=== PATIENT | female | born 1945 | race Caucasian/White ===

== ENCOUNTER → 2016-10-29 | Outpatient (CLI) | payer MEDICARE, BC ==
--- NOTE | 2016-10-29 14:52 | CT ---
EXAMINATION TYPE: CT lumbar spine wo con DATE OF EXAM: 10/29/2016 1:46 PM COMPARISON: CT lumbar spine November 24, 2015 HISTORY: Post back surgery pain CT DLP: 471.3 mGycm Automated exposure control for dose reduction was used. FINDINGS: There is redemonstration of 5 lumbar type vertebra. Lumbar spine demonstrates satisfactory alignment without evidence of acute fracture or dislocation. Posterior fusion hardware is redemonstrated bilate rally at L3-S1 levels. There is interval multilevel discectomy with placement of artificial disks at L3-L4, L4-L5, and L5-S1 levels. Alignment is satisfactory and maintained. Vertebral body heights and disc space heights above L3 level remain within normal limits. Streak artifact from surgical hardware seen but spinal canal is felt fairly well-maintained. Review of the axial images shows the T12-L1 and L1-L2 levels both to remain within normal limits. Axial images at L2-L3 level redemonstrate mild facet degenerative changes bilaterally with ligamentum flavum hypertrophy effacing posterior lateral thecal sac, right greater than left on axial image 30 unchanged from prior study. Bilateral neural foramina remain patent. Axial images at L3-L4 level show new left-sided laminectomy defect. Artifact from surgical changes re demonstrated. Facet arthropathy is redemonstrated there is ill-defined fluid at level of laminectomy nonspecific near axial image 42. Axial images at the L4-L5 level show left-sided laminectomy defect with ill-defined fluid at this lev el. Artifact from surgical change is identified. Axial images at the L5-S1 level show left-sided laminectomy defect with ill-defined fluid. There is i ndistinct fat plane from spinal canal at this level near axial image 60. There is right-sided facet a rthropathy. Review of surgical hardware shows fixating screws and different location with more anterior penetrati on identified on current exam, for reference right L5 screw impresses along posterior margin of IVC. Several of the screws penetrate through anterior margin of vertebra. New screws are suspected. IMPRESSION: Interval multilevel disc surgery and suspected replacement of posterior fusion hardware. Nonspecific ill-defined fluid at site of multilevel left-sided laminectomies is noted. Alignment is m aintained.
== END | disposition home or self-care (01) ==
LOC: RADCTMAIN 13:21
PROVIDERS: ATTEND Neurological Surgery
DX: M51.36 Other intervertebral disc degeneration, lumbar region (principal); Z98.890 Other specified postprocedural states
CPT/HCPCS: 72131

== ENCOUNTER → 2016-12-28 | Outpatient (CLI) | payer MEDICARE, BC ==
--- NOTE | 2016-12-28 14:17 | BD ---
EXAMINATION TYPE: MG DEXA axial skeleton. DATE OF EXAM: 12/28/2016 1:34 PM COMPARISON: 11.01.2013 DEXA bone scan CLINICAL HISTORY: Z78.0 ASYMPTOMATIC STATE Height: 64.5 Weight: 155 FRAX RISK QUESTIONS: Alcohol (3 or more units per day): NO Family History (Parent hip fracture): NO Glucocorticoids (More than 3mos): YES (Ex: prednisone, prednisolone, methylprednisolone, dexamethasone, and hydrocortisone). History of Fracture in Adulthood: YES Secondary Osteoporosis: NO 1. Type 1 Diabetes: NO 2. Hyperthyroidism: NO 3. Menopause before 45: YES 4. Malnutrition: NO 5. Chronic liver disease: NO Rheumatoid Arthritis: YES Current Tobacco Use: NO RISK FACTORS HISTORY OF: Hip Fracture RT HIP FX WITH THR When: AT 69 YRS OLD Spine Fracture: DEGENERATION OF SPINE When: OVER TIME Surgery to Spine T AND L SPINE RODS AND PINS AND CAGES IN BACK, PLUS TOTAL RT HIP REPLACEMENT When: OVER TIME AND AT 69 YRS OLD FOR HIP Family History of Osteoporosis: NO Smoke tobacco: NO Drink Alcohol: NO Active: BEST SHE CAN Diet low in dairy products/other sources of calcium: YES, LOW Postmenopausal woman: HYST AT AGE 26 YRS OLD, OVARIES TAKEN OUT AT 73 YRS OLD Take estrogen and/or progesterone medications: YES ESTRACE/ESTRODILE How long: FOR 8 YRS Lost more than 2 inches in height since high school: YES Adrenal Insufficiency: NO MEDICATIONS: Prednisone or other steroids: YES, VENTOLIN, ASTHMA INHALER, AND UPDRAFTS DAILY How Long: FOR YRS Additional Medications: BP MEDS, SHOTS FOR RH ARTHRITIS, Additional History: 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 LUMBAR SPINE SURGERY, RODS PINS AND CAGES........LUMBAR SPINE Bone mineral density about the L hip (g/cm2): 0.908 T Score values are as follows: -----R Neck: -1.0 -----R Intertrochanter: -1.1 Bone mineral density has: Decreased -4.8%since study of: 11.01.2013 FRAX %'S: 27.6% FOR MAJOR OSTEOPOROTIC FX AND 3.9% FOR HIP FX.....PROBABILITY OF FX IN 10 YRS TI ME IMPRESSION: Normal (Values between +1 and -1 indicate normal bone mass ) FOR HER LT HIP on current study. NOTE: T-SCORE=SD OF THE YOUNG ADULT MEAN.
--- NOTE | 2016-12-29 09:53 | MM ---
Reason for exam: screening (asymptomatic). Last mammogram was performed 1 year ago. History: Patient is postmenopausal and history of other cancer. Family history of breast cancer in grandmother at age 55 and breast cancer in aunt at age 52. Cyst aspiration of the left breast. Took hormonal contraceptives for 12 years beginning at age 20. Taking estrogen for 33 years beginning at age 36. Physical Findings: A clinical breast exam by your physician is recommended on an annual basis and results should be correlated with mammographic findings. MG 3D Screening Mammo W/Cad Bilateral CC and MLO view(s) were taken. Prior study comparison: December 18, 2015, left breast MG 3d work up w/cad LT. December 12, 2015, bilateral MG screening mammo w CAD. The breast tissue is extremely dense which could obscure a lesion on mammography. Benign calcifications. There is no discrete abnormality. No significant changes when compared with prior studies. ASSESSMENT: Benign, BI-RAD 2 RECOMMENDATION: Routine screening mammogram of both breasts in 1 year.
== END | disposition home or self-care (01) ==
LOC: RADMAMWWP 12:39
PROVIDERS: ATTEND Internal Medicine
DX: Z12.31 Encounter for screening mammogram for malignant neoplasm of breast (principal); Z78.0 Asymptomatic menopausal state
CPT/HCPCS: 77080; 77063; G0202

== ENCOUNTER → 2017-01-26 | Outpatient (CLI) | payer MEDICARE, BC | END | disposition home or self-care (01) | LOC: LABWHC1 14:05 | PROVIDERS: ATTEND Internal Medicine Critical Care Medicine | DX: R05 Cough (principal) | CPT/HCPCS: 36415; 82785 ==

== ENCOUNTER → 2017-02-25 | Outpatient (CLI) | payer MEDICARE, BC ==
--- NOTE | 2017-02-25 13:01 | XR ---
EXAMINATION TYPE: XR lumbar spine 2 or 3V DATE OF EXAM ORDERED: 02/25/2017 12:45 PM HISTORY: M51.36 disc degeneration lumbar region. COMPARISON: Previous study dated 09/07/2016. FINDINGS: There has been a previous interpedicular fusion extending from L3 to S1. Spacing material has been placed. Alignment remains normal. IMPRESSION: STATUS POST INTERPEDICULAR FUSION, L3-S1.
== END ==
LOC: RADXRMAIN 12:32
PROVIDERS: ATTEND Neurological Surgery
DX: M51.36 Other intervertebral disc degeneration, lumbar region (principal); Z98.1 Arthrodesis status
CPT/HCPCS: 72100

== ENCOUNTER → 2017-03-17 | Outpatient (CLI) | payer MEDICARE, BC ==
--- NOTE | 2017-03-17 14:53 | MR ---
EXAMINATION TYPE: MR cervical spine wo con DATE OF EXAM: 03/17/2017 2:05 PM COMPARISON: 09/27/2010 HISTORY: Neck pain, stiffness, headaches, BUE weakness x 5 years; no trauma/surgery Multiplanar MultiSpin echo imaging of the cervical spine was performed. C2-C3: No evidence for degenerative disc disease. No disc bulge/herniation or protrusion. No Canal stenosis. Foramina are patent bilaterally. C3-C4: There is mild disc desiccation. Mild posterior disc bulge with minimal effacement ventral thec al sac. No evidence for herniation or central stenosis. Mild right foraminal encroachment secondary t o degenerative change of the cervical apophyseal joints. C4-C5: There is mild disc desiccation. Mild posterior disc bulge with minimal effacement ventral thec al sac. No evidence for herniation or central stenosis. Mild right foraminal encroachment secondary t o degenerative change of the cervical apophyseal joints. C5-C6: Stable grade 1 retrolisthesis of 3 mm. Moderate disc desiccation. Posterior disc bulge effaces the ventral thecal sac. There is mild central stenosis. Mild bilateral foraminal encroachment. C6-C7: Moderate to severe disc desiccation. Posterior disc bulge effaces the ventral thecal sac. No e vidence of disc herniation or protrusion. No central stenosis. Right foraminal encroachment. C7-T1: No evidence for degenerative disc disease. No disc bulge/herniation or protrusion. No Canal stenosis. Foramina are patent bilaterally. Cervical segments are intact. There is normal alignment. Cervical spinal cord is of normal signal. Craniovertebral junction relationships are within normal limits. IMPRESSION: 1. Multilevel degenerative disc disease. 2. Mild central stenosis at C5-6. See above.
== END | disposition home or self-care (01) ==
LOC: RADMRIMAIN 13:02
PROVIDERS: ATTEND Neurological Surgery
DX: M48.02 Spinal stenosis, cervical region (principal); M50.320 Other cervical disc degeneration, mid-cervical region, unspecified level
CPT/HCPCS: 72141

== ENCOUNTER → 2017-11-22 | Outpatient (CLI) | payer MEDICARE, BC ==
--- NOTE | 2017-11-22 15:13 | XR ---
EXAMINATION TYPE: XR cervical spine limited DATE OF EXAM: 11/22/2017 TECHNIQUE: Frontal, lateral, and open mouth view of the cervical spine are obtained. HISTORY: S/P ACDF post op Z01.8 COMPARISON: MRI cervical spine March 17, 2017 FINDINGS: The cervical spine is visualized in its entirety from C1 thru the top of T1 level, it is i mproved in alignment after surgery. There is new anterior fusion plate C4-C7 level. There is new maikol ficial disc material at these levels. C1-C2 articulation remains within normal limits on the open ranjana th view. Overlying soft tissue is unremarkable. IMPRESSION: New multilevel discectomies and anterior fusion C4-C7 level with improved and satisfactor y alignment.
== END | disposition home or self-care (01) ==
LOC: RADXRMAIN 14:52
PROVIDERS: ATTEND Neurological Surgery
DX: Z48.89 Encounter for other specified surgical aftercare (principal)
CPT/HCPCS: 72040

== ENCOUNTER → 2018-01-12 | Outpatient (CLI) | payer MEDICARE, BC ==
--- NOTE | 2018-01-12 14:44 | MM ---
Reason for exam: screening (asymptomatic). Last mammogram was performed 1 year ago. History: Patient is postmenopausal and history of other cancer. Family history of breast cancer in grandmother at age 55 and breast cancer in aunt at age 52. Cyst aspiration of the left breast. Took hormonal contraceptives for 12 years beginning at age 20. Taking estrogen for 33 years beginning at age 36. Physical Findings: A clinical breast exam by your physician is recommended on an annual basis and results should be correlated with mammographic findings. MG 3D Screening Mammo W/Cad Bilateral CC and MLO view(s) were taken. Prior study comparison: December 28, 2016, bilateral MG 3d screening mammo w/cad. December 18, 2015, left breast MG 3d work up w/cad LT. The breast tissue is heterogeneously dense. This may lower the sensitivity of mammography. There is no discrete abnormality. No significant changes when compared with prior studies. ASSESSMENT: Negative, BI-RAD 1 RECOMMENDATION: Routine screening mammogram of both breasts in 1 year.
== END | disposition home or self-care (01) ==
LOC: RADMAMWWP 10:33
PROVIDERS: ATTEND Internal Medicine
DX: Z12.31 Encounter for screening mammogram for malignant neoplasm of breast (principal)
CPT/HCPCS: 77063; 77067

== ENCOUNTER → 2018-01-30 | Outpatient (CLI) | payer MEDICARE, BC ==
--- NOTE | 2018-01-30 12:57 | XR ---
EXAMINATION TYPE: XR lumbar spine 2 or 3V DATE OF EXAM: 01/30/2018 CLINICAL HISTORY: pain TECHNIQUE: 3 views of the lumbar spine are submitted. COMPARISON: 02/25/2017 FINDINGS: Postoperative changes of fusion noted extending from L3 through S1. Intervertebral body spacers are i n place. Interconnecting pedicular screws are noted. Alignment is stable. IMPRESSION: Stable fusion of L3-S1. ICD 10 NO FRACTURE, INITIAL EVALUATION
--- NOTE | 2018-01-30 13:37 | XR ---
EXAMINATION TYPE: XR cervical spine comp DATE OF EXAM: 01/30/2018 CLINICAL HISTORY: pain COMPARISON: 11/22/2017 TECHNIQUE: Frontal, lateral, oblique, swimmers, and open mouth view of the cervical spine are obtaine d. FINDINGS: The cervical spine is visualized in its entirety from C1 thru the top of T1 level. It is s atisfactory in alignment without evidence of acute fracture or dislocation. Stable appearance of the postoperative changes of anterior cervical discectomy and fusion extending from C4 through C7. Anteri or fixation plate and intervertebral body spacers are unchanged in position. Postoperative alignment is near-anatomic. IMPRESSION: Stable postoperative change of ACDF.
== END | disposition home or self-care (01) ==
LOC: RADXRMAIN 12:01
PROVIDERS: ATTEND Neurological Surgery
DX: M51.36 Other intervertebral disc degeneration, lumbar region (principal); Z98.1 Arthrodesis status
CPT/HCPCS: 72050; 72100

== ENCOUNTER → 2018-03-13 | Outpatient (CLI) | payer MEDICARE, BC ==
--- NOTE | 2018-03-14 09:44 | US ---
EXAMINATION TYPE: US kidneys/renal and bladder DATE OF EXAM: 03/13/2018 COMPARISON: NONE CLINICAL HISTORY: R10.2 PELVIC AND PERINEAL PAIN,R32 URINARY INCONTINENCE. EXAM MEASUREMENTS: Right Kidney: 11.3 x 4.2 x 4.7 cm Left Kidney: 11.9 x 5.2 x 5.2 cm limited scan due to overlying bowel gas. Right Kidney: hypoechoic area midpole measures 2.7 x 2.2 x 2.2 cm, probable cyst. This cannot be clas sified as a simple cyst. Additional workup with CT is recommended. This appears to be present on the prior CT of 05/14/2012. Echogenic foci lower pole measures 0.7 x 0.5 x 0.9 cm with shadowing, probable stone. Left Kidney: No hydronephrosis or masses seen Bladder: wnl Bilateral Jets seen: bilateral jets seen on pelvic ultrasound done same day IMPRESSION: 1. 2.7 cm complex cyst mid right renal cortex. Additional evaluation with contrast CT is recommended.
--- NOTE | 2018-03-14 09:55 | US ---
EXAMINATION TYPE: US pelvic limited DATE OF EXAM: 03/13/2018 COMPARISON: NONE CLINICAL HISTORY: R10.2 PELVIC AND PERINEAL PAIN,R32 URINARY INCONTINENCE. Complete hysterectomy. Uterus and ovaries surgically absent. Bladder appears within normal limits, bilateral jets seen. No a dnexal masses seen. IMPRESSION: 1. Normal postsurgical pelvic ultrasound.
== END | disposition home or self-care (01) ==
LOC: RADUSWWP 15:25
PROVIDERS: ATTEND Internal Medicine
DX: N28.1 Cyst of kidney, acquired (principal); R32 Unspecified urinary incontinence; Z98.890 Other specified postprocedural states
CPT/HCPCS: 76770; 76857

== ENCOUNTER → 2018-03-22 | Outpatient (CLI) | payer MEDICARE, BC ==
[2018-03-22 12:16] LABS: Blood Urea Nitrogen 21 mg/dL (7-17)
--- NOTE | 2018-03-22 14:47 | CT ---
EXAMINATION TYPE: CT abdomen pelvis w con DATE OF EXAM: 03/22/2018 COMPARISON: NONE HISTORY: Patient generalized pelvic pain and vaginal discharge. Abnormal US at [facility]. CT DLP: 728.9 mGycm CONTRAST: CT scan of the abdomen and pelvis is performed with Oral Contrast and with IV Contrast, patient injec rylee with 100 mL of Isovue 300. FINDINGS: LUNG BASES-: No visible nodule. No infiltrate. LIVER/GB: No calcified gallstones. No space occupying hepatic lesion. Biliary tree is of normal ca liber. PANCREAS: No inflammation. No distinct mass. SPLEEN: No splenic enlargement. No lesion seen. ADRENALS: No nodule. No thickening. KIDNEYS/BLADDER: No hydronephrosis. 8.5 mm calculus lower pole right kidney. No obstructing calculi evident. Simple appearing renal cysts seen bilaterally. The largest cyst on the right measures 2.5 cm the largest cyst on the left measures 1.4 cm. Urinary bladder grossly unremarkable. BOWEL: Normal appendix. Normal bowel caliber. No inflammation. GENITAL ORGANS: No gross abnormality. LYMPH NODES: No greater than 1cm abdominal or pelvic lymph nodes are appreciated. AORTA: No significant abnormality. OSSEOUS STRUCTURES: Postoperative changes lower lumbar spine. Postoperative changes right hip. OTHER: No significant additional abnormality is seen. IMPRESSION: 1. Simple appearing renal cysts. 2. Nonobstructing right renal calculus.
== END | disposition home or self-care (01) ==
LOC: RADCTMAIN 11:27
PROVIDERS: ATTEND Internal Medicine
DX: N20.0 Calculus of kidney (principal); N28.1 Cyst of kidney, acquired
CPT/HCPCS: 82565; 84520; 74177; 36415; Q9967

== ENCOUNTER → 2018-05-09 | Outpatient (CLI) | payer MEDICARE, BC ==
--- NOTE | 2018-05-09 11:42 | XR ---
EXAMINATION TYPE: XR cervical spine comp DATE OF EXAM: 05/09/2018 TECHNIQUE: Frontal, lateral, oblique, and open mouth view of the cervical spine are obtained. HISTORY: Z98.1 arthrodesis COMPARISON: Cervical spine x-ray January 30, 2018 FINDINGS: The cervical spine is redemonstrated in its entirety from C1 thru the top of T1 level, it is stable and satisfactory in alignment without evidence of acute fracture or dislocation. The pre-v ertebral soft tissue remains within normal limits. The C1-C2 articulation remains normal limits on t he open mouth view. Anterior fusion plate with artificial disc material C4-C7 levels is redemonstrated. Vertebral body an d disc space heights above this are satisfactory and stable. The oblique images are within normal li mits. Overlying soft tissue is unremarkable. IMPRESSION: Postsurgical changes C4-C7 level with stable and satisfactory alignment. No significant i nterval change.
== END | disposition home or self-care (01) ==
LOC: RADXRMAIN 10:39
PROVIDERS: ATTEND Neurological Surgery
DX: Z47.89 Encounter for other orthopedic aftercare (principal); Z98.1 Arthrodesis status
CPT/HCPCS: 72050

== ENCOUNTER → 2018-05-11 | Outpatient (CLI) | payer MEDICARE, BC ==
[2018-05-11 14:33] LABS: Basophils # (A) 0.1 k/uL (0-0.2); Basophils % (A) 1 %; Eosinophils # (A) 0.2 k/uL (0-0.7); Eosinophils % (A) 3 %; HCT 37.5 % (34.0-46.0); HGB 12.1 gm/dL (11.4-16.0); Lymphocytes # (A) 1.6 k/uL (1.0-4.8); Lymphocytes % (A) 22 %; MCH 31.6 pg (25.0-35.0); MCHC 32.2 g/dL (31.0-37.0); Monocytes # (A) 0.5 k/uL (0-1.0); Monocytes % (A) 6 %; Neutrophils % (A) 67 %; Platelet Count 384 k/uL (150-450); RBC 3.83 m/uL (3.80-5.40); RDW 13.5 % (11.5-15.5); WBC 7.5 k/uL (3.8-10.6)
[2018-05-11 14:41] LABS: Appearance,Urine Cloudy (Clear); Bilirubin,Urine Negative (Negative); Blood,Urine Small (Negative); Color,Urine Yellow; Glucose,Urine (UA) Negative (Negative); Ketones,Urine Negative (Negative); Leukocyte Esterase,Urine Large (Negative); Mucus,Urine Rare /hpf; Nitrite,Urine Negative (Negative); PH, Urine 5.5 (5.0-8.0); Protein,Urine Trace (Negative); RBC,Urine 21 /hpf (0-5); Specific Gravity,Urine 1.023 (1.001-1.035); Squamous Epithelial Cell,Urine 7 /hpf (0-4); Urobilinogen,Urine <2.0 mg/dL (<2.0); WBC,Urine >182 /hpf (0-5)
[2018-05-11 14:51] LABS: Calcium 8.9 mg/dL (8.4-10.2); Potassium 4.2 mmol/L (3.5-5.1)
== END | disposition home or self-care (01) ==
LOC: LABPAT 13:58
PROVIDERS: ATTEND Urology
DX: Z01.812 Encounter for preprocedural laboratory examination (principal); N76.1 Subacute and chronic vaginitis; R31.0 Gross hematuria; Z79.899 Other long term (current) drug therapy
CPT/HCPCS: 80048; 81001; 85025; 87086

== ENCOUNTER 2018-05-17 08:43 | Day surgery (SDC) | payer MEDICARE, BC ==
[2018-05-11 16:08] VITALS: BMI 26.6
--- NOTE | 2018-05-16 21:33 | P.GSHP ---
History of Present Illness H&P Date: 05/16/18 72 yo femalecomes for vaginal exam under anesthesia, cysto and removal of transobturator tape if indicated. She had a TOT placed years ago SHe has had persistent vaginal discharge Exam in the office didnt identify an erosion but because of the risk she comes for a vaginal exam under anesthesia and possiblr removal of a TOT - Genitourinary (Female) Genitourinary: Reports as per HPI Past Medical History Past Medical History: Asthma, Fibromyalgia, GERD/Reflux, Hypertension, Myocardial Infarction ([place]), Osteoarthritis (OA), Rheumatoid Arthritis (RA), Thyroid Disorder Additional Past Medical History / Comment(s): blood urine,odorous dark mustard color discharge,currently having pain with intercourse and pain/pressure when sitting,having dizzy spells with 1 fall with last mos, left bundle branch block Last Myocardial Infarction Date:: unk History of Any Multi-Drug Resistant Organisms: None Reported Past Surgical History: Back Surgery, Heart Catheterization, Joint Replacement, Orthopedic Surgery Additional Past Surgical History / Comment(s): RODS IN BACK, RT HIP REPLACEMENT , PARTIAL THYROIDECTOMY, RT KNEE REPLACEMENT,rods/cage neck fusion Past Anesthesia/Blood Transfusion Reactions: Previous Problems w/ Anesthesia, Postoperative Nausea & Vomiting (PONV) Additional Past Anesthesia/Blood Transfusion Reaction / Comment(s): hard to wake up Smoking Status: Never smoker - Past Family History Sister(s) Family Medical History: Cancer Brother(s) Family Medical History: Cancer Medications and Allergies Home Medications Medication Instructions Recorded Confirmed Type Estradiol [Estrace] 2 mg PO QAM 05/14/14 05/11/18 History Nadolol [Corgard] 40 mg PO QAM 05/14/14 05/11/18 History Pantoprazole Sodium [Protonix] 40 mg PO BID 05/14/14 05/11/18 History Albuterol Inhaler [Ventolin Hfa 1 - 2 puff INHALATION Q6HR PRN 12/02/15 History Inhaler] SUMAtriptan SUCCINATE [Imitrex] 25 mg PO DIRECTED PRN 12/02/15 05/11/18 History Acetaminophen Tab [Tylenol Tab] 650 mg PO BID 01/15/16 05/11/18 History Cartilage/Collagen II/Hyaluron 1 each PO DAILY 01/15/16 05/11/18 History [Move Free Ultra Tablet] Lysine 500 mg PO DAILY 01/15/16 05/11/18 History Ipratropium-Albuterol Nebulize 3 ml INHALATION BID 01/19/16 05/11/18 History [Duoneb 0.5 mg-3 mg/3 ml Soln] Cholecalciferol [Vitamin D3] 2,000 unit PO DAILY 05/11/18 05/11/18 History amLODIPine [Norvasc] 5 mg PO QAM 05/11/18 05/11/18 History Allergies Allergy/AdvReac Type Severity Reaction Status Date / Time cephalexin monohydrate Allergy HIVES Verified 05/11/18 15:54 [From Keflex] diphenhydramine HCl Allergy SWELLING Verified 05/11/18 15:54 [From Benadryl] OF TONGUE, SOB Penicillins Allergy SWELLING, Verified 05/11/18 15:54 HIVES Surgical - Exam - General well developed, well nourished, no distress - Eyes PERRL - ENT no hearing loss - Neck trachea midline - Respiratory normal expansion, normal respiratory effort - Cardiovascular Rhythm: regular - Abdomen Abdomen: soft, non tender - Genitourinary Normal vaginal vault ther is some otable discharge There is some anterior vaginal wall tenderness. No obvious graft was felt - Integumentary no rash, no growths - Neurologic normal coordination, normal sensation - Musculoskeletal normal gait, normal posture - Psychiatric oriented to time, oriented to person, oriented to place, speech is normal, memory intact Assessment and Plan Assessment: Imlresiion: Persistent vaginitis r/o TOT erosion Plan: cysto, exam under anesthesia and removal of sling if indicated.
[~2018-05-17 08:43] MED LIST: GENTAMICIN 100 MG in SODIUM CHLORIDE 0.9% 100 ML IVPB ONE; LACTATED RINGERS 1,000 ML IV SCH; ONDANSETRON 4 MG/2 ML VIAL IVP PRN; Pre Op ABX Message 1 EACH MISC MISCELLANE ONE; fentaNYL (PF) 50 MCG/ML 2 ML AMP IV PRN
[2018-05-17] MEDS ORDERED: DEXAMETHASONE SOD PHOSPHATE 10 MG/ML 1 ML VIAL IV ONE (10:00)
[2018-05-17] MEDS ORDERED: LIDOCAINE 1% 20 ML VIAL (10MG/ML) FOR IV START INTRADERMA ONE (10:00)
[2018-05-17] MEDS ORDERED: ONDANSETRON 4 MG/2 ML VIAL ONE (10:00)
[2018-05-17] MEDS ORDERED: SCOPOLAMINE 1.5MG/72HR PATCH TRANSDERM ONE (10:00)
[2018-05-17] MEDS ORDERED: ONDANSETRON 4 MG/2 ML VIAL IVP ONE (10:00)
[2018-05-17] MEDS ORDERED: fentaNYL (PF) 50 MCG/ML 2 ML AMP ONE (10:25)
[2018-05-17] MEDS ORDERED: LIDOCAINE 1% INJ 10MG/ML (20 ML MDV) ONE (10:25)
[2018-05-17] MEDS ORDERED: HYDROmorphone (PF) 1 MG/ML ONE (10:25)
[2018-05-17] MEDS ORDERED: hydrALAZINE HCL 20 MG/ML 1 ML VIAL ONE (10:25)
[2018-05-17] MEDS ORDERED: MIDAZOLAM 2 MG/2 ML VIAL ONE (10:25)
[2018-05-17] MEDS ORDERED: PROPOFOL 10 MG/ML 20 ML VIAL IV ONE (10:25)
[2018-05-17 11:35] VITALS: TEMP 97
[2018-05-17] MEDS: HYDROmorphone 0.5 MG/0.5 ML SYRINGE IVP PRN ×4 (11:39→12:02)
[2018-05-17] MEDS ORDERED: KETOROLAC 30 MG/ML 1 ML VIAL IVP ONE (11:41)
--- NOTE | 2018-05-17 11:45 | P.OP ---
Date of Procedure: 05/17/18 Preoperative Diagnosis: persistent vaginal discharge Postoperative Diagnosis: same Procedure(s) Performed: vaginal exam under anesthesia, cystoscopy, excision of trans-obturator tape graft Anesthesia: RITESH Surgeon: Brannon Addison Estimated Blood Loss (ml): 50 Pathology: other (graft) Condition: stable Disposition: PACU Indications for Procedure: the patient is a 72-year-old female 9 years status post trans-obturator tape for stress urinary incontinence which has been controlled. For the last 6 months she has had persistent vaginal discharge. She's tried on medication for vaginitis failed. Exam in the office did not identify an obvious erosions. She comes for a vaginal exam under anesthesia cystoscopy and perhaps removal graft Description of Procedure: patient brought the operating suite. Given a general anesthetic on the operating table. She's placed lithotomy position with sterile prep and drape. Logan catheters introduced sterilely. The labor sewn laterally to silk. A vaginal speculum was introduced in the vagina. The vaginal speculum was closely inspected from the urethral back to the apex from her previous hysterectomy. I see anterior vaginal inflammation but I did not see a distinct origin of discharge in order I see any distinct graft. I then performed cystoscopy Foroblique lens and 22-Tunisian sheath. Urethra is normal ureters normal mucosa is normal Reinspected the the anterior vaginal wall and I do not again see any evidence of graft. The cousin of the persistence of this problem and the fact that the graft is placed I elect remove the graft. A transverse incision the anterior vaginal wall is made. I I dissect a flap off the anterior vaginal wall. Identify where the graft lay. I tediously dissect the graft out of its rounding tissue. I follow the graft up towards the inguinal canal bilaterally. I then excised the graft. Form cystoscopy to make sure there is no injury to the bladder and there is none. A irrigate the wound very thoroughly with sterile water. I controlled bleeding with electrocautery. I closed the the wound with interrupted running 3-0 Vicryl. A vaginal pack is place. The patient awake and returned recovery in good condition. She will be discharged home upon recovery and found the office in one week. End dictation
[2018-05-17] MEDS ORDERED: ALBUTEROL NEBULIZED 2.5 MG/3 ML INHALATION ONE (12:06)
[2018-05-17] MEDS ORDERED: MEPERIDINE 50 MG/ML SYRINGE IVP ONE (12:31)
[2018-05-17] MEDS ORDERED: PROMETHAZINE INJ 25 MG/ML 1 ML VIAL IVPB ONE (12:37)
[2018-05-17] MEDS ORDERED: METOCLOPRAMIDE 5 MG/ML 2 ML VIAL IVP ONE (12:38)
[2018-05-17 13:33] VITALS: RESP 18
[2018-05-17 14:20] VITALS: BP 153/64; PULSE 61
== END 2018-05-17 15:58 | disposition home or self-care (01) ==
LOC: OR 08:43
PROVIDERS: ATTEND Urology
DX: T83.118A Breakdown (mechanical) of other urinary devices and implants, initial encounter (principal); J45.909 Unspecified asthma, uncomplicated; M79.7 Fibromyalgia; K21.9 Gastro-esophageal reflux disease without esophagitis; I10 Essential (primary) hypertension; I25.2 Old myocardial infarction; M19.90 Unspecified osteoarthritis, unspecified site; M06.9 Rheumatoid arthritis, unspecified; N28.9 Disorder of kidney and ureter, unspecified; E07.9 Disorder of thyroid, unspecified; Z79.84 Long term (current) use of oral hypoglycemic drugs; Z79.890 Hormone replacement therapy; Z79.899 Other long term (current) drug therapy; Z88.1 Allergy status to other antibiotic agents; Z88.0 Allergy status to penicillin; Z88.8 Allergy status to other drugs, medicaments and biological substances
CPT/HCPCS: 88305; 57287; J2250; J0360; J1100; J2550; J2765; J2175; J2405; J2001; J3010; J1885; J1580; J1170 ×2; J2704; 88304

== ENCOUNTER → 2018-06-01 | Outpatient (CLI) | payer MEDICARE, BC ==
--- NOTE | 2018-06-01 16:39 | CT ---
EXAMINATION TYPE: CT lumbar spine wo con DATE OF EXAM: 06/01/2018 12:38 PM COMPARISON: CT abdomen pelvis dated 03/22/2018 HISTORY: Low back and Bilat leg pain CT DLP: 1089 mGycm Automated exposure control for dose reduction was used. TECHNIQUE: Unenhanced CT of the lumbar spine was performed. Bone and soft tissue window settings are submitted as well as coronal and sagittal reconstructions. FINDINGS: There is surgical fixation of the lumbosacral spine from L3 through S1. Intervertebral disc cages are seen at these levels. Lumbar spine vertebral bodies maintain normal vertebral body heights and alignment. Possible vertebral body hemangioma seen of L1. Degenerative endplate changes are pres ent at T11-T12. No evidence of acute fracture seen of the lumbar spine. Multilevel posterior element resection is noted. Surgical jorge are seen within the right lower quadrant and partial visualizati on of surgical change of the right acetabulum. 2 mm right upper pole nonobstructing calculus, 2 mm right lower pole nonobstructing calculus, and 9 m m right lower pole nonobstructing renal calculus are seen. Hyperdense renal lesion measuring 8 mm is present in the lower pole as well as partial visualization of a cystic proximal a 2.7 cm mass. Too sm all to characterize left upper pole renal lesion is also seen in addition to a 1.2 cm left lower pole renal cyst. Nonobstructing left renal calculi are also noted measuring 3 mm in the midpole, 2 mm in the lower pole, and 3 mm in the lower pole. Incidentally noted left adnexal cystic lesion is also see n and can be better evaluated with pelvic ultrasound. L1-L2: There is a broad-based disc bulge without significant neural foraminal narrowing or spinal can al stenosis. L2-L3: There is a broad-based disc bulge and mild facet arthropathy resulting in mild bilateral neura l foraminal narrowing. No discrete spinal canal stenosis. L3-L4: There is a left hemilaminectomy and intervertebral disc spacer. Small residual disc bulge brooks ins. There is obscuration of the left neural foramen by spray artifact. No spinal canal stenosis or r ight neural foraminal narrowing. L4-L5: There is resection of the posterior elements and postoperative fluid collection seen posterior ly. Intervertebral disc cages seen. No significant neural foraminal narrowing is appreciated. Evaluat ion for epidural fibrosis cannot be performed without contrast. L5-S1: Posterior element resection is seen without spinal canal stenosis. No discrete neural foramina l narrowing is seen. IMPRESSION: 1. Postoperative fluid collection at L4-L5, likely a seroma, however epidural fibrosis cannot exclude d at this level. This could be further evaluated with enhanced MRI. 2. Nonobstructing bilateral renal calculi and renal lesions that should be further assessed with jazmyn dahlia enhanced three-phase CT as the left upper pole lesion is ill-defined and right lower pole lesion is hyperdense. 3. Incidentally noted left cystic adnexal lesion that can be evaluated with pelvic ultrasound. 4. Mild degenerative disc disease above the prior surgical fusion levels without spinal canal stenosi s.
== END | disposition home or self-care (01) ==
LOC: RADCTMAIN 12:12
PROVIDERS: ATTEND Neurological Surgery
DX: M51.36 Other intervertebral disc degeneration, lumbar region (principal); Z98.890 Other specified postprocedural states; Z98.1 Arthrodesis status
CPT/HCPCS: 72131

== ENCOUNTER 2018-06-18 16:07 | Emergency (ER) | payer MEDICARE, BC ==
[2018-06-18 16:20] VITALS: RESP 18
[2018-06-18] MEDS ORDERED: MORPHINE SULFATE 4 MG/ML SYRINGE IVP STA (17:00)
--- NOTE | 2018-06-18 18:17 | CT ---
EXAMINATION TYPE: CT brain brooklynn valladares DATE OF EXAM: 06/18/2018 COMPARISON: NONE HISTORY: Fall injury, laceration to nasal area CT DLP: 1360.4 mGycm. Automated Exposure Control for Dose Reduction was Utilized. TECHNIQUE: CT scan of the head and cervical spine are performed without contrast. FINDINGS: There is no acute intracranial hemorrhage, mass effect, or midline shift identified. The ventricles and sulci are within normal limits in size. The globes are intact and the visualized sin uses are clear. Cervical spine is visualized in its entirety from C1 through upper thoracic levels and demonstrates s atisfactory alignment without evidence of acute fracture or dislocation. Evidence of prior anterior f usion of C4-C6 7 with bony ankylosis and intervertebral disc space devices. Prevertebral soft tissue appears within normal limits. The C1-C2 articulation is unremarkable. IMPRESSION: 1. There is no acute fracture or dislocation evident in the cervical spine. 2. No acute intracranial hemorrhage, mass effect, or midline shift is seen. 3. Postsurgical changes of C3-C7.
--- NOTE | 2018-06-18 18:20 | CT ---
EXAMINATION TYPE: CT facial bones wo con DATE OF EXAM: 06/18/2018 COMPARISON: NONE HISTORY: Fall injury, laceration to nasal area CT DLP: 593.6 mGycm. Automated Exposure Control for Dose Reduction was Utilized. TECHNIQUE: CT scan of the sinuses is performed without contrast, axial images are obtained, coronal r eformatted images are also reviewed. FINDINGS: Ream Cutter image demonstrates cervical fusion. A subtle minimally displaced fracture left nasal bone is evident. There is minimal associated soft ti ssue swelling. No additional acute facial bone fracture. The orbits are intact. The mandible is withi n normal limits. The globes are unremarkable and the retrocrural spaces are clear. Extraocular muscle s are within normal limits. There is slight rightward deviation of the nasal septum. The paranasal sinuses including the frontal, ethmoid, sphenoid, and maxillary sinuses bilaterally are well-aerated without abnormal opacification. The ostiomeatal complex is patent bilaterally on the c oronal images. Visualized portion of mastoid air cells show no abnormal opacification. The globes are intact bilate rally. IMPRESSION: 1. Subtle minimally displaced left nasal bone fracture with associated soft tissue swelling. 2. No additional acute facial bone fractures.
[2018-06-18] MEDS ORDERED: LIDOCAINE 1% (PF) 10MG/ML VIAL SQ STA (19:21)
--- NOTE | 2018-06-18 19:22 | ED ---
Fall HPI - General Chief Complaint: Fall Stated Complaint: FALL Time Seen by Provider: 06/18/18 16:41 Source: patient, EMS, RN notes reviewed, old records reviewed Mode of arrival: EMS - History of Present Illness Initial Comments: This patient is a 72 year old female with CC of fall. Patient reports she tripped going into her house and she caught herself on the clothes dryer. Patient reports pain over R shoulder, R hip, and bilateral knees. Patient has an abrasion over her nose. Patient has no difficulty breathing. She denies LOC. Patient reports she has R hip replacement, R knee replacement. Patient has no other symptoms including chest pain, SOB, nausea and vomitng. - Related Data Home Medications Medication Instructions Recorded Confirmed Estradiol [Estrace] 2 mg PO QAM 05/14/14 06/19/18 Nadolol [Corgard] 40 mg PO QAM 05/14/14 06/19/18 Pantoprazole Sodium [Protonix] 40 mg PO BID 05/14/14 06/19/18 Albuterol Inhaler [Ventolin Hfa 1 - 2 puff INHALATION RT-QID PRN 12/02/15 Inhaler] SUMAtriptan SUCCINATE [Imitrex] 25 mg PO DAILY PRN 12/02/15 06/19/18 Acetaminophen Tab [Tylenol Tab] 650 mg PO BID 01/15/16 06/19/18 Cartilage/Collagen II/Hyaluron 1 tab PO DAILY 01/15/16 06/19/18 [Move Free Ultra Tablet] Lysine 500 mg PO DAILY 01/15/16 06/19/18 Ipratropium-Albuterol Nebulize 3 ml INHALATION RT-BID 01/19/16 06/19/18 [Duoneb 0.5 mg-3 mg/3 ml Soln] Cholecalciferol [Vitamin D3] 2,000 unit PO DAILY 05/11/18 06/19/18 amLODIPine [Norvasc] 5 mg PO QAM 05/11/18 06/19/18 Previous Rx's Medication Instructions Recorded HYDROcodone/APAP 5-325MG [[place] 1 tab PO Q4HR PRN #14 tab 05/17/18 5-325] Acetaminophen-Codeine 300-30mg 1 tab PO Q6H PRN 3 Days #12 tablet 06/18/18 [Tylenol w/codeine #3] Allergies Allergy/AdvReac Type Severity Reaction Status Date / Time cephalexin monohydrate Allergy HIVES Verified 06/19/18 08:58 [From Keflex] diphenhydramine HCl Allergy SWELLING Verified 06/19/18 08:58 [From Benadryl] OF TONGUE, SOB Penicillins Allergy SWELLING, Verified 06/19/18 08:58 HIVES sulfamethoxazole AdvReac Nausea & Verified 06/19/18 08:58 [From Bactrim] Vomiting trimethoprim [From Bactrim] AdvReac Nausea & Verified 06/19/18 08:58 Vomiting Review of Systems ROS Statement: Those systems with pertinent positive or pertinent negative responses have been documented in the HPI. ROS Other: All systems not noted in ROS Statement are negative. Past Medical History Past Medical History: Asthma, Fibromyalgia, GERD/Reflux, Osteoarthritis (OA), Rheumatoid Arthritis (RA), Thyroid Disorder History of Any Multi-Drug Resistant Organisms: None Reported Past Surgical History: Back Surgery, Heart Catheterization, Orthopedic Surgery Additional Past Surgical History / Comment(s): RODS IN BACK, RT HIP REPLACEMENT , PARTIAL THYROIDECTOMY, RT KNEE REPLACEMENT Past Anesthesia/Blood Transfusion Reactions: Previous Problems w/ Anesthesia, Postoperative Nausea & Vomiting (PONV) Additional Past Anesthesia/Blood Transfusion Reaction / Comment(s): hard to wake up Past Psychological History: No Psychological Hx Reported Smoking Status: Never smoker Past Alcohol Use History: None Reported Past Drug Use History: None Reported - Past Family History Sister(s) Family Medical History: Cancer Brother(s) Family Medical History: Cancer General Exam - General Exam Comments Initial Comments: 72 year old female, alert and oriented. Limitations: no limitations General appearance: alert, in no apparent distress Head exam: Present: atraumatic, normocephalic, normal inspection Eye exam: Present: normal appearance, PERRL, EOMI. Absent: scleral icterus, conjunctival injection, periorbital swelling ENT exam: Present: normal exam, mucous membranes moist, other (2cm laceration over bridge of nose. No septal hematoma. ) Neck exam: Present: normal inspection (Patient is in C collar. ). Absent: tenderness, meningismus, lymphadenopathy Respiratory exam: Present: normal lung sounds bilaterally. Absent: respiratory distress, wheezes, rales, rhonchi, stridor Cardiovascular Exam: Present: regular rate, normal rhythm, normal heart sounds. Absent: systolic murmur, diastolic murmur, rubs, gallop, clicks GI/Abdominal exam: Present: soft, normal bowel sounds. Absent: distended, tenderness, guarding, rebound, rigid Right Shoulder Exam: Present: full ROM, tenderness (over deltoid), ecchymosis (5cm contusoin over R upper arm. ). Absent: normal inspection Upper Arm exam: Present: normal inspection, full ROM Elbow exam: Present: normal inspection, full ROM Left Knee exam: Present: tenderness, swelling, ecchymosis. Absent: normal inspection Lower Leg exam: Present: normal inspection, full ROM Ankle exam: Present: normal inspection, full ROM Neurovascular tendon exam: Present: no vascular compromise Neurological exam: Present: alert, oriented X3, CN II-XII intact Psychiatric exam: Present: normal affect, normal mood Skin exam: Present: warm, dry, intact, normal color. Absent: rash Course Vital Signs 06/18/18 06/18/18 06/18/18 16:18 19:13 20:50 Temperature 98 F 97.9 F Pulse Rate 73 57 L 59 L Respiratory 18 18 18 Rate Blood Pressure 169/72 166/77 170/74 O2 Sat by Pulse 100 99 98 Oximetry Procedures - Laceration Laceration #1 Site: face (nose) Size (cm): 2 Description: linear Depth: simple, single layer Anesthetic Used: lidocaine 1% Anesthesia Technique: local infiltration Amount (mls): 2 Pre-repair: wound explored, irrigated extensively Type of Sutures: vicryl Size of Sutures: 6-0 Number of Sutures: 4 Technique: simple, interrupted Patient Tolerated Procedure: well, no complications Medical Decision Making - Medical Decision Making Patient is a 72 year old female, presents with R hip, bilateral knee, R shoulder pain. Patient fell into her dryer and tripped. She has an abrasion over nose. Patient had C collar in place. PAtient underwent CT brain, Cspine and facial bones. Evidence of minimal displaced nasal bone fracture, no intracranial hemorrhage or cervical fractures noted. AFter removed from Collar, extremity xrays were completed. Patient xrays are negative for fractures. Patient has knee effusion bilaterally due to fall, and contusion to shoulder. She has full ROM of extremities. Patient had a laceration over nose, consicdered open fracture. Started patient on Bactrim due to allergy to keflex. Discussed follow up with ortho and ENT. Return parameters discussed. Patient was given sling for shoulder, discussed she may have injury consistent with ligamentous tear. - Radiology Data Radiology results: report reviewed Sublte minimally displaced left nasal bone fracture with soft tissue swelling. No acute fracture, dislocation evidenct in C spine. No acute intracranial hemorrhage, post surgical changes of C3-C7. No acute fracture of R hip and pelvis. Xray of bilateral knee is negative for acute fracture or dislocation. No fracture or dislocation of R shoulder. Read by Dr. Caldwell. Disposition Clinical Impression: Nasal fracture, Facial laceration, Right shoulder injury, Knee effusion Disposition: HOME SELF-CARE Condition: Good Instructions: Fall Prevention for Older Adults (ED) Additional Instructions: Please return to the emergency room in 5 to 7 days to have sutures removed. Please leave wound covered for the first 24-48 hours and then leave open to air after that time. Please use clean soap and water to clean the suture area to prevent scabbing over the top of your sutures. Please watch for any signs of infection which may include but not limited to increased pain, swelling, redness , fever or chills. Please return to the emergency room if any signs of infection do occur. Please return to the emergency room for any other concerns or complications. Prescriptions: Acetaminophen-Codeine 300-30mg [Tylenol w/codeine #3] 1 tab PO Q6H PRN 3 Days # 12 tablet PRN Reason: Pain Is patient prescribed a controlled substance at d/c from ED?: No Referrals: Sergio Mcmahan MD [Primary Care Provider] - 1-2 days Faraz Castaneda DO [Doctor of Osteopathic Medicine] - 1-2 days Peng Hernandez MD [STAFF PHYSICIAN] - 1-2 days Time of Disposition: 20:21
[2018-06-18] MEDS ORDERED: LIDOCAINE/EPINEPHR/TETRACAINE 5 ML BOTTLE TOPICAL ONE (19:36)
[2018-06-18] MEDS ORDERED: LIDOCAINE 1% INJ 10MG/ML (20 ML MDV) SQ STA (19:37)
--- NOTE | 2018-06-18 19:40 | XR ---
EXAMINATION TYPE: XR shoulder complete RT DATE OF EXAM: 06/18/2018 CLINICAL HISTORY: Shoulder pain TECHNIQUE: Three views of the right shoulder are obtained. COMPARISON: None. FINDINGS: There is no acute fracture/dislocation evident in the right shoulder. The acromioclavicul ar and glenohumeral joint spaces appear within normal limits. The visualized ribs are intact and unr emarkable. Limited evaluation of the right hemithorax is unremarkable. IMPRESSION: There is no acute fracture or dislocation in the right shoulder.
--- NOTE | 2018-06-18 19:41 | XR ---
EXAMINATION TYPE: XR knee complete bilateral DATE OF EXAM: 06/18/2018 CLINICAL HISTORY: Right knee pain TECHNIQUE: Three views of the bilateral knees are obtained. COMPARISON: None. FINDINGS: No acute fracture or dislocation identified. Right knee demonstrates a prior arthroplasty. Hardware i s intact and appropriately positioned. Left knee demonstrates minimal tricompartmental degenerative t ype changes. No knee effusion. IMPRESSION: There is no acute fracture or dislocation of the bilateral knees.
--- NOTE | 2018-06-18 19:44 | XR ---
EXAMINATION TYPE: XR Hip RT and AP Pelvis DATE OF EXAM: 06/18/2018 COMPARISON: NONE HISTORY: Right hip pain after fall TECHNIQUE: A single AP view of the pelvis is obtained. Two views of the right hip are obtained. FINDINGS: There is no acute fracture/dislocation evident in the pelvis. The hip and sacroiliac join ts appear symmetric and unremarkable. The overlying soft tissue appears unremarkable. Lumbar fusion hardware with intervertebral disc space devices are evident. There is a prior right hip total arthroplasty. No evidence of a periprosthetic fracture or hardware fracture. No periprosthetic loosening. Limited evaluation of the abdomen is unremarkable. Two views of right hip show no acute fracture or dislocation. No focal lytic or sclerotic lesion see n in the proximal right femur. The overlying soft tissue is unremarkable. IMPRESSION: There is no acute fracture or dislocation in the pelvis or right hip.
[2018-06-18] MEDS ORDERED: ACET/COD 300 MG/30 MG STARTER PACK 6 TAB BTL PO STA (20:23)
[2018-06-18] MEDS ORDERED: SULFAMETH-TMP DS STARTER PACK 2 TAB BTL PO STA (20:23)
[2018-06-18 20:51] VITALS: BP 170/74; PULSE 59; TEMP 97.9
== END 2018-06-18 20:50 | disposition home or self-care (01) ==
LOC: EC 16:07
DX: S02.2XXA Fracture of nasal bones, initial encounter for closed fracture (principal); S01.21XA Laceration without foreign body of nose, initial encounter; S40.021A Contusion of right upper arm, initial encounter; S40.011A Contusion of right shoulder, initial encounter; M25.462 Effusion, left knee; M25.461 Effusion, right knee; M25.561 Pain in right knee; J45.909 Unspecified asthma, uncomplicated; M79.7 Fibromyalgia; K21.9 Gastro-esophageal reflux disease without esophagitis; M19.90 Unspecified osteoarthritis, unspecified site; M06.9 Rheumatoid arthritis, unspecified; Z95.818 Presence of other cardiac implants and grafts; Z96.651 Presence of right artificial knee joint; Z96.641 Presence of right artificial hip joint; Z79.890 Hormone replacement therapy; Z79.899 Other long term (current) drug therapy; Z88.1 Allergy status to other antibiotic agents; Z88.8 Allergy status to other drugs, medicaments and biological substances; Z88.0 Allergy status to penicillin; Z88.2 Allergy status to sulfonamides; W01.0XXA Fall on same level from slipping, tripping and stumbling without subsequent striking against object, initial encounter; Y92.009 Unspecified place in unspecified non-institutional (private) residence as the place of occurrence of the external cause
CPT/HCPCS: 73562; 73502; 73030; 72125; 70486; 70450; 99285; 12011; 96374; J2270; J2001

== ENCOUNTER 2018-06-19 01:22 | Observation (INO) | payer MEDICARE, BC ==
[2018-06-19 01:50] LABS: Basophils % (A) 0 %; Eosinophils # (A) 0.1 k/uL (0-0.7); Eosinophils % (A) 1 %; HGB 12.1 gm/dL (11.4-16.0); Lymphocytes # (A) 1.8 k/uL (1.0-4.8); Lymphocytes % (A) 17 %; MCH 30.9 pg (25.0-35.0); MCHC 31.1 g/dL (31.0-37.0); MCV 99.2 fL (80.0-100.0); Mean Platelet Volume 6.6; Monocytes # (A) 0.5 k/uL (0-1.0); Monocytes % (A) 5 %; Neutrophils % (A) 76 %; Platelet Count 367 k/uL (150-450); RBC 3.93 m/uL (3.80-5.40); RDW 13.5 % (11.5-15.5); WBC 10.5 k/uL (3.8-10.6)
--- NOTE | 2018-06-19 01:58 | XR ---
EXAMINATION TYPE: XR chest 2V DATE OF EXAM: 06/19/2018 COMPARISON: 01/19/2017 HISTORY: Chest pain TECHNIQUE: Frontal and lateral views of the chest are obtained. FINDINGS: Heart and mediastinum are normal. Lungs are clear. Diaphragm is normal. There are chest le ads. Bony thorax is intact. IMPRESSION: Normal chest. No change. There is new cervical spine fusion surgery noted.
[2018-06-19 02:02] LABS: ALT 27 U/L (9-52); AST 20 U/L (14-36); Albumin 3.7 g/dL (3.5-5.0); Alkaline Phosphatase 56 U/L (38-126); Anion Gap 11 mmol/L; Blood Urea Nitrogen 17 mg/dL (7-17); Calcium 8.9 mg/dL (8.4-10.2); Carbon Dioxide 19 mmol/L (22-30); Chloride 106 mmol/L (98-107); Glucose 132 mg/dL (74-99); Magnesium 1.6 mg/dL (1.6-2.3); Potassium 3.8 mmol/L (3.5-5.1); Sodium 136 mmol/L (137-145); Total Bilirubin 0.4 mg/dL (0.2-1.3); Total Protein 6.7 g/dL (6.3-8.2)
[2018-06-19 02:15] LABS: Creatine Kinase 46 U/L (30-135)
[2018-06-19 02:27] LABS: Creatine Kinase MB 0.7 ng/mL (0.0-2.4); Troponin I <0.012 ng/mL (0.000-0.034)
--- NOTE | 2018-06-19 02:30 | ED ---
General Adult HPI - General Chief complaint: Chest Pain Stated complaint: chest pain Time Seen by Provider: 06/19/18 01:23 Source: patient, EMS, RN notes reviewed, old records reviewed Mode of arrival: EMS Limitations: no limitations - History of Present Illness Initial comments: 72 -year-old female presented for evaluation of chest pain. Patient was in the emergency department earlier this evening with mechanical fall and head trauma. She denies any significant chest wall trauma at that time. Symptoms began at home with central chest pressure and squeezing sensation. She did have an episode of nausea vomiting which was blood tinged. This was approximately 1 hour after taking her Bactrim pill which was prescribed for nasal bone fracture and laceration. Patient reports some pain in her back as well. Denies abdominal pain. There was only one episode of vomiting. Patient does have history of CAD and previous [place]. No previous stenting. - Related Data Home Medications Medication Instructions Recorded Confirmed Estradiol [Estrace] 2 mg PO QAM 05/14/14 05/11/18 Nadolol [Corgard] 40 mg PO QAM 05/14/14 05/11/18 Pantoprazole Sodium [Protonix] 40 mg PO BID 05/14/14 05/11/18 Albuterol Inhaler [Ventolin Hfa 1 - 2 puff INHALATION Q6HR PRN 12/02/15 05/17/18 Inhaler] SUMAtriptan SUCCINATE [Imitrex] 25 mg PO DIRECTED PRN 12/02/15 05/17/18 Acetaminophen Tab [Tylenol Tab] 650 mg PO BID 01/15/16 05/11/18 Cartilage/Collagen II/Hyaluron 1 each PO DAILY 01/15/16 05/11/18 [Move Free Ultra Tablet] Lysine 500 mg PO DAILY 01/15/16 05/11/18 Ipratropium-Albuterol Nebulize 3 ml INHALATION BID 01/19/16 05/11/18 [Duoneb 0.5 mg-3 mg/3 ml Soln] Cholecalciferol [Vitamin D3] 2,000 unit PO DAILY 05/11/18 05/11/18 amLODIPine [Norvasc] 5 mg PO QAM 05/11/18 05/11/18 Previous Rx's Medication Instructions Recorded HYDROcodone/APAP 5-325MG [[place] 1 tab PO Q4HR PRN #14 tab 05/17/18 5-325] Sulfamethox-Tmp 800-160Mg [Bactrim 1 tab PO Q12HR #20 tab 05/17/18 DS 800-160 mg] Acetaminophen-Codeine 300-30mg 1 tab PO Q6H PRN 3 Days #12 tablet 06/18/18 [Tylenol w/codeine #3] Sulfamethox-Tmp 800-160Mg [Bactrim 1 tab PO DAILY #14 tab 06/18/18 DS 800-160 mg] Allergies Allergy/AdvReac Type Severity Reaction Status Date / Time cephalexin monohydrate Allergy HIVES Verified 06/19/18 01:30 [From Keflex] diphenhydramine HCl Allergy SWELLING Verified 06/19/18 01:30 [From Benadryl] OF TONGUE, SOB Penicillins Allergy SWELLING, Verified 06/19/18 01:30 HIVES sulfamethoxazole AdvReac Nausea & Verified 06/19/18 01:30 [From Bactrim] Vomiting trimethoprim [From Bactrim] AdvReac Nausea & Verified 06/19/18 01:30 Vomiting Review of Systems ROS Statement: Those systems with pertinent positive or pertinent negative responses have been documented in the HPI. ROS Other: All systems not noted in ROS Statement are negative. Past Medical History Past Medical History: Asthma, Fibromyalgia, GERD/Reflux, Osteoarthritis (OA), Rheumatoid Arthritis (RA), Thyroid Disorder History of Any Multi-Drug Resistant Organisms: None Reported Past Surgical History: Back Surgery, Heart Catheterization, Orthopedic Surgery Additional Past Surgical History / Comment(s): RODS IN BACK, RT HIP REPLACEMENT , PARTIAL THYROIDECTOMY, RT KNEE REPLACEMENT Past Anesthesia/Blood Transfusion Reactions: Previous Problems w/ Anesthesia, Postoperative Nausea & Vomiting (PONV) Additional Past Anesthesia/Blood Transfusion Reaction / Comment(s): hard to wake up Past Psychological History: No Psychological Hx Reported Smoking Status: Never smoker Past Alcohol Use History: None Reported Past Drug Use History: None Reported - Past Family History Sister(s) Family Medical History: Cancer Brother(s) Family Medical History: Cancer General Exam Limitations: no limitations General appearance: alert, in no apparent distress Head exam: Present: normocephalic Eye exam: Present: normal appearance, PERRL, EOMI ENT exam: Present: normal exam Neck exam: Present: normal inspection. Absent: tenderness, meningismus Respiratory exam: Present: normal lung sounds bilaterally. Absent: respiratory distress, wheezes, chest wall tenderness (No external signs of trauma, no chest wall tenderness) Cardiovascular Exam: Present: regular rate, normal rhythm GI/Abdominal exam: Present: soft. Absent: distended, tenderness Extremities exam: Present: normal capillary refill. Absent: pedal edema, calf tenderness Neurological exam: Present: alert, oriented X3, CN II-XII intact. Absent: motor sensory deficit Psychiatric exam: Present: normal affect, normal mood. Absent: anxious, flat affect Skin exam: Present: warm, dry, intact. Absent: cyanosis, diaphoretic Course Vital Signs 06/19/18 06/19/18 06/19/18 01:26 02:24 03:28 Temperature 96.8 F L 96.8 F L Pulse Rate 75 61 67 Respiratory 22 16 14 Rate Blood Pressure 101/55 109/56 109/53 O2 Sat by Pulse 90 L 100 99 Oximetry - Reevaluation(s) Reevaluation #1: 06/19/18 [address] Rocha, regarding EKG, and patient's presentation. Recommends heparin at this time. Reevaluation #2: 06/19/18 03:10 On reevaluation, pain is improving. EKG Findings - EKG Comments: EKG Findings:: EKG: Obtained at 1:29, sinus rhythm, interventricular block, left axis deviation, rate of 72, MO interval 126, QRS duration 136, QTC 529, repeat EKG obtained at 401, normal sinus rhythm, left axis deviation, left bundle branch block, rate of 71, MO interval 164, QRS duration 132, QTC 506, no ST segment elevation or depression. Medical Decision Making - Medical Decision Making 72-year-old female presents with central chest pain. Describes his pain as squeezing pressure sensation. This was associated with nausea and vomiting. Patient did have fall earlier this evening however there was no noted chest pain from the fall. She has no external signs of trauma on her chest and no reproducible pain. Given this combined with EKG changes showing left bundle which was not previously known, patient will be kept for serial cardiac enzymes and cardiology consultation. Case discussed with Dr. Mcmahan, will accept admission. - Lab Data Result diagrams: 06/19/18 01:30 06/19/18 01:30 Lab Results 06/19/18 06/19/18 06/19/18 Range/Units 01:30 01:30 01:30 WBC 10.5 (3.8-10.6) k/uL RBC 3.93 (3.80-5.40) m/uL Hgb 12.1 (11.4-16.0) gm/dL Hct 39.0 (34.0-46.0) % MCV 99.2 (80.0-100.0) fL MCH 30.9 (25.0-35.0) pg MCHC 31.1 (31.0-37.0) g/dL RDW 13.5 (11.5-15.5) % Plt Count 367 (150-450) k/uL Neutrophils % 76 % Lymphocytes % 17 % Monocytes % 5 % Eosinophils % 1 % Basophils % 0 % Neutrophils # 8.0 H (1.3-7.7) k/uL Lymphocytes # 1.8 (1.0-4.8) k/uL Monocytes # 0.5 (0-1.0) k/uL Eosinophils # 0.1 (0-0.7) k/uL Basophils # 0.0 (0-0.2) k/uL PT (9.0-12.0) sec INR (<1.2) APTT (22.0-30.0) sec Sodium 136 L (137-145) mmol/L Potassium 3.8 (3.5-5.1) mmol/L Chloride 106 (98-107) mmol/L Carbon Dioxide 19 L (22-30) mmol/L Anion Gap 11 mmol/L BUN 17 (7-17) mg/dL Creatinine 0.70 (0.52-1.04) mg/dL Est GFR (CKD-EPI)AfAm >90 (>60 ml/min/1.73 sqM) Est GFR (CKD-EPI)NonAf 87 (>60 ml/min/1.73 sqM) Glucose 132 H (74-99) mg/dL Calcium 8.9 (8.4-10.2) mg/dL Magnesium 1.6 (1.6-2.3) mg/dL Total Bilirubin 0.4 (0.2-1.3) mg/dL AST 20 (14-36) U/L ALT 27 (9-52) U/L Alkaline Phosphatase 56 (38-126) U/L Total Creatine Kinase 46 (30-135) U/L CK-MB (CK-2) 0.7 (0.0-2.4) ng/mL CK-MB (CK-2) Rel Index 1.5 Troponin I <0.012 (0.000-0.034) ng/mL NT-Pro-B Natriuret Pep pg/mL Total Protein 6.7 (6.3-8.2) g/dL Albumin 3.7 (3.5-5.0) g/dL 06/19/18 06/19/18 06/19/18 Range/Units 01:30 01:30 04:15 WBC (3.8-10.6) k/uL RBC (3.80-5.40) m/uL Hgb (11.4-16.0) gm/dL Hct (34.0-46.0) % MCV (80.0-100.0) fL MCH (25.0-35.0) pg MCHC (31.0-37.0) g/dL RDW (11.5-15.5) % Plt Count (150-450) k/uL Neutrophils % % Lymphocytes % % Monocytes % % Eosinophils % % Basophils % % Neutrophils # (1.3-7.7) k/uL Lymphocytes # (1.0-4.8) k/uL Monocytes # (0-1.0) k/uL Eosinophils # (0-0.7) k/uL Basophils # (0-0.2) k/uL PT 10.0 (9.0-12.0) sec INR 1.0 (<1.2) APTT 21.0 L (22.0-30.0) sec Sodium (137-145) mmol/L Potassium (3.5-5.1) mmol/L Chloride (98-107) mmol/L Carbon Dioxide (22-30) mmol/L Anion Gap mmol/L BUN (7-17) mg/dL Creatinine (0.52-1.04) mg/dL Est GFR (CKD-EPI)AfAm (>60 ml/min/1.73 sqM) Est GFR (CKD-EPI)NonAf (>60 ml/min/1.73 sqM) Glucose (74-99) mg/dL Calcium (8.4-10.2) mg/dL Magnesium (1.6-2.3) mg/dL Total Bilirubin (0.2-1.3) mg/dL AST (14-36) U/L ALT (9-52) U/L Alkaline Phosphatase (38-126) U/L Total Creatine Kinase (30-135) U/L CK-MB (CK-2) (0.0-2.4) ng/mL CK-MB (CK-2) Rel Index Troponin I <0.012 (0.000-0.034) ng/mL NT-Pro-B Natriuret Pep 1580 pg/mL Total Protein (6.3-8.2) g/dL Albumin (3.5-5.0) g/dL Disposition Clinical Impression: Chest pain Disposition: [facility] Condition: Stable Is patient prescribed a controlled substance at d/c from ED?: No Referrals: Sergio Mcmahna MD [Primary Care Provider] - 1-2 days Decision to Admit Reason: Admit from EC Decision Date: 06/19/18 Decision Time: 05:36
[2018-06-19] MEDS ORDERED: IBUPROFEN 400 MG TAB PO PRN (05:29)
[2018-06-19] MEDS ORDERED: ACETAMINOPHEN TAB 325 MG TAB PO PRN (05:29)
[2018-06-19] MEDS ORDERED: NALOXONE 0.4 MG/ML 1 ML VIAL IV PRN (05:29)
[2018-06-19 06:53] LABS: Appearance,Urine Cloudy (Clear); Bacteria,Urine Rare /hpf; Bilirubin,Urine 1+ (Negative); Blood,Urine Negative (Negative); Color,Urine Yellow; Glucose,Urine (UA) Negative (Negative); Ketones,Urine 1+ (Negative); Leukocyte Esterase,Urine Large (Negative); Mucus,Urine Many /hpf; Nitrite,Urine Negative (Negative); Protein,Urine 1+ (Negative); RBC,Urine 18 /hpf (0-5); Specific Gravity,Urine 1.022 (1.001-1.035); Squamous Epithelial Cell,Urine 7 /hpf (0-4); WBC,Urine >182 /hpf (0-5)
[2018-06-19 08:15] LABS: Creatine Kinase 37 U/L (30-135)
[2018-06-19] MEDS ORDERED: ALBUTEROL NEBULIZED 2.5 MG/3 ML INHALATION PRN (08:17)
[2018-06-19] MEDS ORDERED: Acetaminophen-Codeine 300-30mg TAB PO PRN (08:17)
[2018-06-19 08:27] LABS: Creatine Kinase MB 0.6 ng/mL (0.0-2.4); Troponin I <0.012 ng/mL (0.000-0.034)
--- NOTE | 2018-06-19 08:42 | P.HPIM ---
History of Present Illness Chief complaint chest pain and syncopal episodes. History of present illness The patient was apparently in the emergency room yesterday evening twice. The first she had a fall she was getting into her house. Apparently she said fell forward injuring her upper extremities knees and face. The patient had sutures for a nasal laceration. Patient was discharged from the emergency room but after going home patient developed chest pain that she states she felt like it started from the back and radiated to the front of her chest and continued to worsen while she was lying in bed. Apparently she tried to get up out of bed and fell to the floor and was out for a short period of time but remembers her shaking her to try to awaken her. EMS once again were called and transported her to the emergency room. Her chest pressure and pain gradually eased up while she was in the emergency room. No unusual shortness of breath. But she did state she felt very cold during the last episode Past medical history. History of hypertension The patient does have a history of back in 2013 of the admission for chest pain. Catheterization at that time revealed minimal disease with 20-30% in the left anterior descending with other blood vessels unremarkable. The patient does have underlying history of diffuse osteoarthritis with previous right total hip arthroscopy in 2011 Has a history of recurrent asthma and is followed by pulmonary medicine Dr. Bajwa. She does have a history of gastroesophageal reflux with esophageal dilatation back in 2009. History of recurrent migraines for which she is on beta blockers. Other surgeries include a previous hysterectomy, bilateral oophorectomy in 2007 and previous cervical and lumbar surgeries along with right knee surgery. Patient approximately a month ago underwent a vaginal examination under anesthesia with cystoscopy and excision of transient obturator type graft. This was performed by Dr. Addison from urology. Medications Amlodipine 5 mg daily Imitrex 25 mg as needed for migraines Protonix 40 mg twice a day for gastroesophageal reflux Tonie 40 mg daily to prevent migraines DuoNeb respiratory treatments 3 mL twice a day [place] 5-325 every 4 hours when necessary for pain Estrace 2 mg daily Vitamin D3 2000 units daily Albuterol inhaler 1-2 puffs every 6 hours L-lysine 500 mg daily ALLERGIES Patient has ALLERGIES to penicillins and Keflex with hives and swelling. She is also had some nausea and vomiting with Bactrim but apparently had a rash with a recent dose also. Possibility of Benadryl ALLERGY with swelling of the tongue. Review of systems Basically as mentioned in the history of present illness. She has had no visual disturbance or unusual headaches. No actual vomiting. She does seem to have some chronic urinary discomfort and frequency. No new bowel symptoms or hematochezia. No unusual edema. Family history Positive for heart disease. Social history She lives locally with her . Negative for smoking or any excessive EtOH usage. Physical examination Overall she does not appear to be any acute distress Vital signs temperature 97.8 with a pulse of 60 and respirations 16. Blood pressure was 132/74 although it had been down to 102/67. She was 94% saturated on room air. There is a nasal laceration that is sutured. Diffuse scarring of the upper extremities. Some ecchymosis of the right upper arm. Extraocular movements are intact. Neck is not overly stiff. No definite adenopathy or thyromegaly or bruits detected. Breasts and pelvic exam deferred. Lungs are clear to auscultation. Chest did reveal tenderness to palpation of the lower sternal area. Heart tones were regular without murmurs. Abdomen is soft and nontender. No unusual distal leg edema. Neurologically she is alert and oriented. Cranial nerves intact. No focal weakness noted. Laboratory CBC unremarkable with a white count of 10.5 and hemoglobin 12.1 with platelets of 367 INR was 1.0 Sodium 136 with a potassium 3.8. CO2 content was 19. BUN is 17 with a creatinine 0.7 given her GFR of Liver function tests could. Albumin 3.7. Troponin values have been less than 0.0123 and CKs also have been normal. Urine was cloudy with large leukocyte esterase and greater than 182 white cells. EKG Demonstrated a left bundle branch block but no definite acute ischemic changes noted. Impressions A chest pain associated with falls and syncopal type episodes. History of falls with trauma. Chest wall discomfort. She does have underlying history of hypertensive heart disease and also history of migraine headaches. Other history as stated above. Recent fall with nasal laceration. Other multiple contusions. Plans A cardiology consult to be placed for evaluation of cardiac status in light of chest pain. Continue her baseline medications for her underlying hypertension and migraines and pulmonary disease. Will add ciprofloxacin for possible urinary tract infection based on her recent urinalysis in the emergency room. Past Medical History Past Medical History: Asthma, Fibromyalgia, GERD/Reflux, Osteoarthritis (OA), Rheumatoid Arthritis (RA), Thyroid Disorder History of Any Multi-Drug Resistant Organisms: None Reported Past Surgical History: Back Surgery, Heart Catheterization, Orthopedic Surgery Additional Past Surgical History / Comment(s): RODS IN BACK, RT HIP REPLACEMENT , PARTIAL THYROIDECTOMY, RT KNEE REPLACEMENT Past Anesthesia/Blood Transfusion Reactions: Previous Problems w/ Anesthesia, Postoperative Nausea & Vomiting (PONV) Additional Past Anesthesia/Blood Transfusion Reaction / Comment(s): hard to wake up Past Psychological History: No Psychological Hx Reported Smoking Status: Never smoker Past Alcohol Use History: None Reported Past Drug Use History: None Reported - Past Family History Sister(s) Family Medical History: Cancer Brother(s) Family Medical History: Cancer Medications and Allergies Home Medications Medication Instructions Recorded Confirmed Type Estradiol [Estrace] 2 mg PO QAM 05/14/14 05/11/18 History Nadolol [Corgard] 40 mg PO QAM 05/14/14 05/11/18 History Pantoprazole Sodium [Protonix] 40 mg PO BID 05/14/14 05/11/18 History Albuterol Inhaler [Ventolin Hfa 1 - 2 puff INHALATION Q6HR PRN 12/02/15 History Inhaler] SUMAtriptan SUCCINATE [Imitrex] 25 mg PO DIRECTED PRN 12/02/15 05/17/18 History Acetaminophen Tab [Tylenol Tab] 650 mg PO BID 01/15/16 05/11/18 History Cartilage/Collagen II/Hyaluron 1 each PO DAILY 01/15/16 05/11/18 History [Move Free Ultra Tablet] Lysine 500 mg PO DAILY 01/15/16 05/11/18 History Ipratropium-Albuterol Nebulize 3 ml INHALATION BID 01/19/16 05/11/18 History [Duoneb 0.5 mg-3 mg/3 ml Soln] Cholecalciferol [Vitamin D3] 2,000 unit PO DAILY 05/11/18 05/11/18 History amLODIPine [Norvasc] 5 mg PO QAM 05/11/18 05/11/18 History HYDROcodone/APAP 5-325MG [[place] 1 tab PO Q4HR PRN #14 tab 05/17/18 Rx 5-325] Sulfamethox-Tmp 800-160Mg [Bactrim 1 tab PO Q12HR #20 tab 05/17/18 Rx DS 800-160 mg] Acetaminophen-Codeine 300-30mg 1 tab PO Q6H PRN 3 Days #12 tablet 06/18/18 Rx [Tylenol w/codeine #3] Sulfamethox-Tmp 800-160Mg [Bactrim 1 tab PO DAILY #14 tab 06/18/18 Rx DS 800-160 mg] Allergies Allergy/AdvReac Type Severity Reaction Status Date / Time cephalexin monohydrate Allergy HIVES Verified 06/19/18 01:30 [From Keflex] diphenhydramine HCl Allergy SWELLING Verified 06/19/18 01:30 [From Benadryl] OF TONGUE, SOB Penicillins Allergy SWELLING, Verified 06/19/18 01:30 HIVES sulfamethoxazole AdvReac Nausea & Verified 06/19/18 01:30 [From Bactrim] Vomiting trimethoprim [From Bactrim] AdvReac Nausea & Verified 06/19/18 01:30 Vomiting Physical Exam Vitals: Vital Signs Temp Pulse Pulse Resp BP BP Pulse Ox 06/19/18 07:26 97.8 F 60 16 132/74 94 L 06/19/18 06:15 97.6 F 66 18 102/67 98 06/19/18 05:52 97.2 F L 70 17 130/64 99 06/19/18 03:28 67 14 109/53 99 06/19/18 02:24 96.8 F L 61 16 109/56 100 06/19/18 01:26 96.8 F L 75 22 101/55 90 L Intake and Output 06/18/18 06/19/18 06/19/18 22:59 06:59 14:59 Other: Weight 71.668 kg Results CBC & Chem 7: 06/19/18 01:30 06/19/18 01:30 Labs: Abnormal Lab Results - Last 24 Hours (Table) 06/19/18 06/19/18 06/19/18 Range/Units 01:30 01:30 01:30 Neutrophils # 8.0 H (1.3-7.7) k/uL APTT 21.0 L (22.0-30.0) sec Sodium 136 L (137-145) mmol/L Carbon Dioxide 19 L (22-30) mmol/L Glucose 132 H (74-99) mg/dL Urine Appearance (Clear) Urine Protein (Negative) Urine Ketones (Negative) Urine Bilirubin (Negative) Ur Leukocyte Esterase (Negative) Urine RBC (0-5) /hpf Urine WBC (0-5) /hpf Ur Squamous Epith Cells (0-4) /hpf Urine Bacteria (None) /hpf Urine Mucus (None) /hpf 06/19/18 Range/Units 06:23 Neutrophils # (1.3-7.7) k/uL APTT (22.0-30.0) sec Sodium (137-145) mmol/L Carbon Dioxide (22-30) mmol/L Glucose (74-99) mg/dL Urine Appearance Cloudy H (Clear) Urine Protein 1+ H (Negative) Urine Ketones 1+ H (Negative) Urine Bilirubin 1+ H (Negative) Ur Leukocyte Esterase Large H (Negative) Urine RBC 18 H (0-5) /hpf Urine WBC >182 H (0-5) /hpf Ur Squamous Epith Cells 7 H (0-4) /hpf Urine Bacteria Rare H (None) /hpf Urine Mucus Many H (None) /hpf
--- NOTE | 2018-06-19 09:39 | CT ---
EXAMINATION TYPE: CT angio chest DATE OF EXAM: 06/19/2018 COMPARISON: 04/02/2010 HISTORY: 72 year-old female shortness of breath and chest pain, Elevated d-dimer, patient fell yester day, multiple bruises TECHNIQUE: Contiguous axial scanning of the chest performed with IV Contrast, patient injected with 1 00 mL of Isovue 370. Coronal/sagittal MIP reconstructions performed. CT DLP: 465 mGycm Automated exposure control for dose reduction was used. FINDINGS: Heart normal size without pericardial effusion. Coronary vessel calcifications are present. Aorta normal caliber with conventional branching anatomy. No thoracic lymphadenopathy. Satisfactory opacification of the pulmonary artery system without evidence for pulmonary embolus. Mild dependent atelectasis and some mild strandy atelectasis at the left base. No consolidation, pneu mothorax, or pleural effusion. Visualized upper abdomen shows a partially visualized hypodense lesion anterior right kidney, probabl e cyst. Bones: Fatty matrix hemangioma within the T8 vertebral body. Degenerative disc disease mid to lower t horacic spine. ACDF hardware partially visualized. IMPRESSION: 1. NO EVIDENCE FOR PULMONARY EMBOLUS. 2. MILD DEPENDENT AND ADDITIONAL STRANDY ATELECTASIS. NO ACUTE PULMONARY PROCESS SEEN.
--- NOTE | 2018-06-19 10:17 | ECHOF ---
Referral Reason: MEASUREMENTS -------- HEIGHT: 165.1 cm WEIGHT: 71.7 kg BP: RVIDd: 2.5 cm (< 3.3) IVSd: 0.9 cm (0.6 - 1.1) LVIDd: 4.1 cm (3.9 - 5.3) LVPWd: 1.1 cm (0.6 - 1.1) IVSs: 1.5 cm LVIDs: 3.3 cm LVPWs: 1.2 cm LA Diam: 3.4 cm (2.7 - 3.8) LAESV Index (A-L): 25.63 ml/m Ao Diam: 2.4 cm (2.0 - 3.7) AV Cusp: 1.6 cm (1.5 - 2.6) LA Diam: 3.8 cm (2.7 - 3.8) MV EXCURSION: 14.924 mm (> 18.000) MV EF SLOPE: 61 mm/s (70 - 150) EPSS: 0.6 cm MV E Albert: 0.66 m/s MV DecT: 257 ms MV A Albert: 0.64 m/s MV E/A Ratio: 1.03 RAP: 5.00 mmHg RVSP: 31.05 mmHg FINDINGS -------- Sinus rhythm. This was a technically adequate study. The left ventricular size is normal. There is mild concentric left ventricular hypertrophy. Overa ll left ventricular systolic function is normal with, an EF between 55 - 60 %. The right ventricle is normal in size. The left atrial size is normal. The right atrial size is normal. The aortic valve is trileaflet, and appears structurally normal. No aortic stenosis or regurgitation. The mitral valve is normal. Mild mitral regurgitation is present. Mild tricuspid regurgitation present. There is no evidence of pulmonary hypertension. The right v entricular systolic pressure, as measured by Doppler, is 31.05mmHg. Trace/mild (physiologic) pulmonic regurgitation. The aortic root size is normal. There is no pericardial effusion. CONCLUSIONS -------- 1. Sinus rhythm. 2. The left ventricular size is normal. 3. There is mild concentric left ventricular hypertrophy. 4. Overall left ventricular systolic function is normal with, an EF between 55 - 60 %. 5. The left atrial size is normal. 6. The aortic valve is trileaflet, and appears structurally normal. No aortic stenosis or regurgitati on. 7. Mild mitral regurgitation is present. 8. Mild tricuspid regurgitation present. 9. There is no evidence of pulmonary hypertension. 10. Trace/mild (physiologic) pulmonic regurgitation. 11. The aortic root size is normal. 12. There is no pericardial effusion. MECHANICAL DESIGNER: Janice Rushing RDCS
[2018-06-19] MEDS: IPRATROPIUM-ALBUTEROL 3 ML NEB INHALATION SCH ×2 (10:19→20:19)
[2018-06-19] MEDS: CIPROFLOXACIN HCL 250 MG TAB PO SCH ×2 (10:53→20:59)
[2018-06-19] MEDS: ACETAMINOPHEN TAB 325 MG TAB PO SCH ×2 (10:53→20:58)
[2018-06-19] MEDS: PANTOPRAZOLE 40 MG TABLET PO SCH ×2 (10:53→20:58)
[2018-06-19] MEDS: NADOLOL 20 MG TAB PO SCH (10:53)
[2018-06-19] MEDS: amLODIPine 5 MG TAB PO SCH (10:53)
[2018-06-19] MEDS: CHOLECALCIFEROL 1,000 UNIT TAB PO SCH (10:53)
[2018-06-19] MEDS: ESTRADIOL 0.5 MG TAB PO SCH (10:54)
--- NOTE | 2018-06-19 11:09 | P.CRDCN ---
History of Present Illness History of present illness: Mrs. Oliver is a pleasant 72-year-old female past medical history significant for mild non-obstructive coronary artery disease per catheterization 2013 with 20-30% disease of proximal LAD, hypertension, paroxysmal SVT, asthma, fibromyalgia and arthritis. She follows with Dr. Castorena in the office. We have been asked to see her in consultation for chest pain. She states last night she was woken up out of sleep with a very sharp pain in the anterior chest wall radiating through to the back rated the pain as extreme 10 out of 10 pain. She started feeling nauseated so she stood up out of bed to walk to the restroom. Upon standing she became extremely dizzy and fell to the floor. She states she had positive loss of consciousness for approximately 1 minute per her who was present for the event. EMS was called. She came to the with multiple paramedics surrounding her and she continued to feel the chest discomfort. The pain persisted for approximately 1 hour and ultimately subsided on its own. The pain is reproducible on palpitation. She also had a mechanical trip and fall earlier in the evening hitting the right side of her body, shoulder, hip and face suffering a nasal fracture and underwent suturing of a laceration across the nose. EKG on arrival reveals left bundle branch block pattern. This is not new, old EKG's in the office back to 2016 with similar pattern. Chest xray negative for an acute cardiopulmonary process. Laboratory data reviewed, hemoglobin 12.1, platelets 367, d-dimer 1.46, sodium 136, potassium 3.8, creatinine 0.7, magnesium 1.6, cardiac enzymes negative 3, proBNP 1580. Current cardiac medications include amlodipine 5 mg daily and Corgard 40 mg daily. Review of Systems At the time of my exam: CONSTITUTIONAL: Denies fever. Denies chills. EYES: Denies blurred vision. Denies vision changes. Denies eye pain. EARS, NOSE, MOUTH & THROAT: Denies headache. Denies sore throat. Denies ear pain. CARDIOVASCULAR: Denies chest pain. Denies shortness of breath. Denies orthopnea. Denies PND. Denies palpitations. RESPIRATORY: Denies cough. GASTROINTESTINAL: Denies abdominal pain. Denies diarrhea. Denies constipation. Denies nausea. Denies vomiting. MUSCULOSKELETAL: Complains of generalized aches and pains especially in the right shoulder, right hip and face. INTEGUMENTARY: Denies pruitis. Denies rash. NEUROLOGIC: Denies numbness. Denies tingling. Denies weakness. PSYCHIATRIC: Denies anxiety. Denies depression. ENDOCRINE: Denies fatigue. Denies weight change. Denies polydipsia. Denies polyurina. GENITOURINARY: Denies burning, hematuria or urgency with micturation. HEMATOLOGIC: Denies history of anemia. Denies bleeding. Past Medical History Past Medical History: Asthma, Fibromyalgia, GERD/Reflux, Osteoarthritis (OA), Rheumatoid Arthritis (RA), Thyroid Disorder History of Any Multi-Drug Resistant Organisms: None Reported Past Surgical History: Back Surgery, Heart Catheterization, Orthopedic Surgery Additional Past Surgical History / Comment(s): RODS IN BACK, RT HIP REPLACEMENT , PARTIAL THYROIDECTOMY, RT KNEE REPLACEMENT Past Anesthesia/Blood Transfusion Reactions: Previous Problems w/ Anesthesia, Postoperative Nausea & Vomiting (PONV) Additional Past Anesthesia/Blood Transfusion Reaction / Comment(s): hard to wake up Past Psychological History: No Psychological Hx Reported Smoking Status: Never smoker Past Alcohol Use History: None Reported Past Drug Use History: None Reported - Past Family History Sister(s) Family Medical History: Cancer Brother(s) Family Medical History: Cancer Mother Family Medical History: Myocardial Infarction ([place]) Additional Family Medical History / Comment(s): Mother of a [place] at the age of 76yrs. Father History Unknown: Yes Medications and Allergies Home Medications Medication Instructions Recorded Confirmed Type Estradiol [Estrace] 2 mg PO QAM 05/14/14 06/19/18 History Nadolol [Corgard] 40 mg PO QAM 05/14/14 06/19/18 History Pantoprazole Sodium [Protonix] 40 mg PO BID 05/14/14 06/19/18 History Albuterol Inhaler [Ventolin Hfa 1 - 2 puff INHALATION RT-QID PRN 12/02/15 History Inhaler] SUMAtriptan SUCCINATE [Imitrex] 25 mg PO DAILY PRN 12/02/15 06/19/18 History Acetaminophen Tab [Tylenol Tab] 650 mg PO BID 01/15/16 06/19/18 History Cartilage/Collagen II/Hyaluron 1 tab PO DAILY 01/15/16 06/19/18 History [Move Free Ultra Tablet] Lysine 500 mg PO DAILY 01/15/16 06/19/18 History Ipratropium-Albuterol Nebulize 3 ml INHALATION RT-BID 01/19/16 06/19/18 History [Duoneb 0.5 mg-3 mg/3 ml Soln] Cholecalciferol [Vitamin D3] 2,000 unit PO DAILY 05/11/18 06/19/18 History amLODIPine [Norvasc] 5 mg PO QAM 05/11/18 06/19/18 History HYDROcodone/APAP 5-325MG [[place] 1 tab PO Q4HR PRN #14 tab 05/17/18 06/19/18 Rx 5-325] Acetaminophen-Codeine 300-30mg 1 tab PO Q6H PRN 3 Days #12 tablet 06/18/1806/19 Rx [Tylenol w/codeine #3] Allergies Allergy/AdvReac Type Severity Reaction Status Date / Time cephalexin monohydrate Allergy HIVES Verified 06/19/18 08:58 [From Keflex] diphenhydramine HCl Allergy SWELLING Verified 06/19/18 08:58 [From Benadryl] OF TONGUE, SOB Penicillins Allergy SWELLING, Verified 06/19/18 08:58 HIVES sulfamethoxazole AdvReac Nausea & Verified 06/19/18 08:58 [From Bactrim] Vomiting trimethoprim [From Bactrim] AdvReac Nausea & Verified 06/19/18 08:58 Vomiting Physical Exam Vitals: Vital Signs Temp Pulse Pulse Resp BP BP Pulse Ox 06/19/18 07:26 97.8 F 60 16 132/74 94 L 06/19/18 06:15 97.6 F 66 18 102/67 98 06/19/18 05:52 97.2 F L 70 17 130/64 99 06/19/18 03:28 67 14 109/53 99 06/19/18 02:24 96.8 F L 61 16 109/56 100 06/19/18 01:26 96.8 F L 75 22 101/55 90 L Intake and Output 06/18/18 06/19/18 06/19/18 22:59 06:59 14:59 Other: Weight 71.668 kg Blood pressure 132/74 heart rate 60 afebrile maintaining oxygen saturation on room air GENERAL: This is a 72-year-old female in no apparent distress at the time of my examination. HEENT: Head is atraumatic, sutures noted across bridge of nose, normocephalic. Pupils are equal, round. Sclerae anicteric. Conjunctivae are clear. Mucous membranes of the mouth are moist. Neck is supple. There is no jugular venous distention. Right carotid bruit is heard, no bruit on the left. LUNGS: Clear to auscultation no wheezes, rales or rhonchi. No chest wall tenderness is noted on palpation or with deep breathing. HEART: Regular rate and rhythm without murmurs, rubs or gallops. S1 and S2 heard. ABDOMEN: Soft, nontender. Bowel sounds are heard. No organomegaly noted. EXTREMITIES: No evidence of peripheral edema and no calf tenderness noted. VASCULAR: Radial and dorsalis pedis pulses palpated, no evidence of clubbing. NEUROLOGIC: Patient is awake, alert and oriented x3. Results 06/19/18 01:30 06/19/18 01:30 Cardiac Enzymes 06/19/18 06/19/18 06/19/18 Range/Units 01:30 01:30 01:30 WBC 10.5 (3.8-10.6) k/uL RBC 3.93 (3.80-5.40) m/uL Hgb 12.1 (11.4-16.0) gm/dL Hct 39.0 (34.0-46.0) % MCV 99.2 (80.0-100.0) fL MCH 30.9 (25.0-35.0) pg MCHC 31.1 (31.0-37.0) g/dL RDW 13.5 (11.5-15.5) % Plt Count 367 (150-450) k/uL Neutrophils % 76 % Lymphocytes % 17 % Monocytes % 5 % Eosinophils % 1 % Basophils % 0 % Neutrophils # 8.0 H (1.3-7.7) k/uL Lymphocytes # 1.8 (1.0-4.8) k/uL Monocytes # 0.5 (0-1.0) k/uL Eosinophils # 0.1 (0-0.7) k/uL Basophils # 0.0 (0-0.2) k/uL PT (9.0-12.0) sec INR (<1.2) APTT (22.0-30.0) sec Sodium 136 L (137-145) mmol/L Potassium 3.8 (3.5-5.1) mmol/L Chloride 106 (98-107) mmol/L Carbon Dioxide 19 L (22-30) mmol/L Anion Gap 11 mmol/L BUN 17 (7-17) mg/dL Creatinine 0.70 (0.52-1.04) mg/dL Est GFR (CKD-EPI)AfAm >90 (>60 ml/min/1.73 sqM) Est GFR (CKD-EPI)NonAf 87 (>60 ml/min/1.73 sqM) Glucose 132 H (74-99) mg/dL Calcium 8.9 (8.4-10.2) mg/dL Magnesium 1.6 (1.6-2.3) mg/dL Total Bilirubin 0.4 (0.2-1.3) mg/dL AST 20 (14-36) U/L ALT 27 (9-52) U/L Alkaline Phosphatase 56 (38-126) U/L Total Creatine Kinase 46 (30-135) U/L CK-MB (CK-2) 0.7 (0.0-2.4) ng/mL CK-MB (CK-2) Rel Index 1.5 Troponin I <0.012 (0.000-0.034) ng/mL NT-Pro-B Natriuret Pep pg/mL Total Protein 6.7 (6.3-8.2) g/dL Albumin 3.7 (3.5-5.0) g/dL Urine Color Urine Appearance (Clear) Urine pH (5.0-8.0) Ur Specific [place] (1.001-1.035) Urine Protein (Negative) Urine Glucose (UA) (Negative) Urine Ketones (Negative) Urine Blood (Negative) Urine Nitrite (Negative) Urine Bilirubin (Negative) Urine Urobilinogen (<2.0) mg/dL Ur Leukocyte Esterase (Negative) Urine RBC (0-5) /hpf Urine WBC (0-5) /hpf Ur Squamous Epith Cells (0-4) /hpf Urine Bacteria (None) /hpf Urine Mucus (None) /hpf 06/19/18 06/19/18 06/19/18 Range/Units 01:30 01:30 04:15 WBC (3.8-10.6) k/uL RBC (3.80-5.40) m/uL Hgb (11.4-16.0) gm/dL Hct (34.0-46.0) % MCV (80.0-100.0) fL MCH (25.0-35.0) pg MCHC (31.0-37.0) g/dL RDW (11.5-15.5) % Plt Count (150-450) k/uL Neutrophils % % Lymphocytes % % Monocytes % % Eosinophils % % Basophils % % Neutrophils # (1.3-7.7) k/uL Lymphocytes # (1.0-4.8) k/uL Monocytes # (0-1.0) k/uL Eosinophils # (0-0.7) k/uL Basophils # (0-0.2) k/uL PT 10.0 (9.0-12.0) sec INR 1.0 (<1.2) APTT 21.0 L (22.0-30.0) sec Sodium (137-145) mmol/L Potassium (3.5-5.1) mmol/L Chloride (98-107) mmol/L Carbon Dioxide (22-30) mmol/L Anion Gap mmol/L BUN (7-17) mg/dL Creatinine (0.52-1.04) mg/dL Est GFR (CKD-EPI)AfAm (>60 ml/min/1.73 sqM) Est GFR (CKD-EPI)NonAf (>60 ml/min/1.73 sqM) Glucose (74-99) mg/dL Calcium (8.4-10.2) mg/dL Magnesium (1.6-2.3) mg/dL Total Bilirubin (0.2-1.3) mg/dL AST (14-36) U/L ALT (9-52) U/L Alkaline Phosphatase (38-126) U/L Total Creatine Kinase (30-135) U/L CK-MB (CK-2) (0.0-2.4) ng/mL CK-MB (CK-2) Rel Index Troponin I <0.012 (0.000-0.034) ng/mL NT-Pro-B Natriuret Pep 1580 pg/mL Total Protein (6.3-8.2) g/dL Albumin (3.5-5.0) g/dL Urine Color Urine Appearance (Clear) Urine pH (5.0-8.0) Ur Specific [place] (1.001-1.035) Urine Protein (Negative) Urine Glucose (UA) (Negative) Urine Ketones (Negative) Urine Blood (Negative) Urine Nitrite (Negative) Urine Bilirubin (Negative) Urine Urobilinogen (<2.0) mg/dL Ur Leukocyte Esterase (Negative) Urine RBC (0-5) /hpf Urine WBC (0-5) /hpf Ur Squamous Epith Cells (0-4) /hpf Urine Bacteria (None) /hpf Urine Mucus (None) /hpf 06/19/18 Range/Units 06:23 WBC (3.8-10.6) k/uL RBC (3.80-5.40) m/uL Hgb (11.4-16.0) gm/dL Hct (34.0-46.0) % MCV (80.0-100.0) fL MCH (25.0-35.0) pg MCHC (31.0-37.0) g/dL RDW (11.5-15.5) % Plt Count (150-450) k/uL Neutrophils % % Lymphocytes % % Monocytes % % Eosinophils % % Basophils % % Neutrophils # (1.3-7.7) k/uL Lymphocytes # (1.0-4.8) k/uL Monocytes # (0-1.0) k/uL Eosinophils # (0-0.7) k/uL Basophils # (0-0.2) k/uL PT (9.0-12.0) sec INR (<1.2) APTT (22.0-30.0) sec Sodium (137-145) mmol/L Potassium (3.5-5.1) mmol/L Chloride (98-107) mmol/L Carbon Dioxide (22-30) mmol/L Anion Gap mmol/L BUN (7-17) mg/dL Creatinine (0.52-1.04) mg/dL Est GFR (CKD-EPI)AfAm (>60 ml/min/1.73 sqM) Est GFR (CKD-EPI)NonAf (>60 ml/min/1.73 sqM) Glucose (74-99) mg/dL Calcium (8.4-10.2) mg/dL Magnesium (1.6-2.3) mg/dL Total Bilirubin (0.2-1.3) mg/dL AST (14-36) U/L ALT (9-52) U/L Alkaline Phosphatase (38-126) U/L Total Creatine Kinase (30-135) U/L CK-MB (CK-2) (0.0-2.4) ng/mL CK-MB (CK-2) Rel Index Troponin I (0.000-0.034) ng/mL NT-Pro-B Natriuret Pep pg/mL Total Protein (6.3-8.2) g/dL Albumin (3.5-5.0) g/dL Urine Color Yellow Urine Appearance Cloudy H (Clear) Urine pH 6.0 (5.0-8.0) Ur Specific [place] 1.022 (1.001-1.035) Urine Protein 1+ H (Negative) Urine Glucose (UA) Negative (Negative) Urine Ketones 1+ H (Negative) Urine Blood Negative (Negative) Urine Nitrite Negative (Negative) Urine Bilirubin 1+ H (Negative) Urine Urobilinogen 2.0 (<2.0) mg/dL Ur Leukocyte Esterase Large H (Negative) Urine RBC 18 H (0-5) /hpf Urine WBC >182 H (0-5) /hpf Ur Squamous Epith Cells 7 H (0-4) /hpf Urine Bacteria Rare H (None) /hpf Urine Mucus Many H (None) /hpf Coagulation 06/19/18 Range/Units 01:30 PT 10.0 (9.0-12.0) sec APTT 21.0 L (22.0-30.0) sec CBC 06/19/18 Range/Units 01:30 WBC 10.5 (3.8-10.6) k/uL RBC 3.93 (3.80-5.40) m/uL Hgb 12.1 (11.4-16.0) gm/dL Hct 39.0 (34.0-46.0) % Plt Count 367 (150-450) k/uL Comprehensive Metabolic Panel 06/19/18 Range/Units 01:30 Sodium 136 L (137-145) mmol/L Potassium 3.8 (3.5-5.1) mmol/L Chloride 106 (98-107) mmol/L Carbon Dioxide 19 L (22-30) mmol/L BUN 17 (7-17) mg/dL Creatinine 0.70 (0.52-1.04) mg/dL Glucose 132 H (74-99) mg/dL Calcium 8.9 (8.4-10.2) mg/dL AST 20 (14-36) U/L ALT 27 (9-52) U/L Alkaline Phosphatase 56 (38-126) U/L Total Protein 6.7 (6.3-8.2) g/dL Albumin 3.7 (3.5-5.0) g/dL Current Medications Generic Name Dose Route Start Last Admin Trade Name Freq PRN Reason Stop Dose Admin Acetaminophen 650 mg 06/19/18 05:29 Tylenol Tab PO Q6HR PRN Mild Pain or Fever > 100.5 Ibuprofen 400 mg 06/19/18 05:29 Motrin PO Q6HR PRN Mild Pain or Fever > 100.5 Naloxone HCl 0.2 mg 06/19/18 05:29 Narcan IV Q2M PRN Opioid Reversal Intake and Output 06/18/18 06/19/18 06/19/18 22:59 06:59 14:59 Other: Weight 71.668 kg 06/19/18 01:30 06/19/18 01:30 Assessment and Plan Assessment: ASSESSMENT Chest pain, atypical. An acute coronary event has been ruled out with negative cardiac enzymes. Left bundle branch block on EKG, chronic Syncopal episode, vasovagal in nature with symptoms of nausea and dizziness after rising quickly out of bed, no palpitations Hypertension History of paroxysmal SVT Elevated d-dimer PLAN 2D echocardiogram and doppler study obtained and reviewed. Normal LV systolic function with preserved EF 55-60%. D-dimer elevated, CTA obtained and is negative for PE. Feed the patient and increase activity and ambulation in the halls. Stable from a cardiac perspective, follow up with Dr. Castorena in 2-3 weeks. Thank you kindly for this consultation. Nurse Practitioner note has been reviewed, I agree with a documented findings and plan of care. Patient was seen and examined.
[2018-06-19] MEDS ORDERED: ONDANSETRON 4 MG/2 ML VIAL IVP PRN (11:53)
[2018-06-19] MEDS ORDERED: MECLIZINE 12.5 MG TAB PO STA (11:54)
[2018-06-19 14:17] LABS: Creatine Kinase 37 U/L (30-135)
[2018-06-19 14:30] LABS: Creatine Kinase MB 0.5 ng/mL (0.0-2.4); Troponin I <0.012 ng/mL (0.000-0.034)
[2018-06-20 08:09] VITALS: BP 124/75; RESP 18; TEMP 97.9
--- NOTE | 2018-06-20 08:16 | P.DS ---
Providers Date of admission: 06/19/18 05:36 Attending physician: Sergio Mcmahan Consults: 06/19/18 05:31 Consult Physician Routine Consulting Provider: Hugh Maurer Consult Reason/Comments: Chest pain, left bundle branch block Do you want consulting provider notified?: Already Contacted Primary care physician: Sergio Mcmahan Plan the patient is a 72-year-old female who presented to with chest pain and syncopal episode. Please refer to history and physical. Patient had actually fallen earlier in the evening of admission. Subsequently she went home and developed further chest pain and try to get out of bed and fell to the floor and lost consciousness for a short period of time. She was brought to the emergency room by EMS. The patient was placed in observation and further laboratory values and cardiology workup was obtained. Hospital course Cardiac enzymes remained unremarkable. The monitor pattern remained stable. The patient did have a d-dimer that was elevated and she underwent a CTA revealing no evidence of pulmonary embolus. EKG showed a left bundle branch block and on further review older EKGs demonstrated similar changes. Echocardiogram revealed normal LV size and ejection fraction of 55-60% normal left atrial size. No evidence of pulmonary hypertension. Other laboratory values revealed a white count of 10.5 with a hemoglobin 12.1 and a platelet count of 367. INR was 1.0. As mentioned d-dimer was mildly elevated at 1.46 Sodium was 136 with potassium 3.8 and a CO2 content of 19. Initial random blood sugar was 132. BUN was 17 with a creatinine 0.7 given a GFR of 87. Liver function tests were all unremarkable. Urinalysis did reveal large amount of leukocyte esterase with greater than 182 white cells. 18 RBCs. Patient clinically improved. She was able to ambulate without further difficulties and after above workup cardiology felt patient to be discharge home with outpatient follow-up. Home medications Ciprofloxacin 250 mg twice a day will be sent into her [facility] pharmacy for 1 week. For possible urinary tract infection. Amlodipine 5 mg daily Imitrex 25 mg daily when necessary for migraine headaches Protonix 40 mg twice a day Corgard 40 mg daily Patient takes lysine 500 mg daily at home DuoNeb respiratory treatments 3 mL patient takes twice a day at least a Morton 5-325 one every 4 hours when necessary for pain if needed from her previous fall. Estrace 2 mg every morning Vitamin D3 2000 units daily The patient takes a move free ultra tablet daily, [id number] Ventolin HFA inhaler 1-2 puffs 4 times a day as needed Acetaminophen 650 mg twice a day if needed for mouth pain. Discharge diagnosis 1. Chest pain associated with some chest wall discomfort consistent with costochondritis with further workup not indicating underlying cardiac cause. 2. Hypertension 3. History of previous heart catheterization in 2013 for chest pain which she revealed minimal disease at that time. 4. Diffuse osteoarthritis with previous right total hip replacement in 2011 5. Recurrent asthma followed by Dr. Bajwa from pulmonary medicine 6. History of migraine headaches on beta blockers 7. Previous surgeries include hysterectomy, bilateral oophorectomy in 2007 and previous cervical and lumbar surgeries along with right knee surgery. 8. Patient has recently undergone cystoscopy and excision of transient obturator type graft per urology. Patient to resume her regular diet. [facility]-up with [facility]. Follow-up with myself over the next 5 days. Prescription for ciprofloxacin will be [facility] through my EMR [facility]. Patient Condition at Discharge: Stable Plan - Discharge Summary Discharge Rx Participant: No New Discharge Prescriptions: No Action Pantoprazole Sodium [Protonix] 40 mg PO BID Nadolol [Corgard] 40 mg PO QAM Estradiol [Estrace] 2 mg PO QAM Albuterol Inhaler [Ventolin Hfa Inhaler] 1 - 2 puff INHALATION RT-QID PRN PRN Reason: Dyspnea SUMAtriptan SUCCINATE [Imitrex] 25 mg PO DAILY PRN PRN Reason: Migraine Headache Cartilage/Collagen II/Hyaluron [Move Free Ultra Tablet] 1 tab PO DAILY Acetaminophen Tab [Tylenol Tab] 650 mg PO BID Lysine 500 mg PO DAILY Ipratropium-Albuterol Nebulize [Duoneb 0.5 mg-3 mg/3 ml Soln] 3 ml INHALATION RT-BID Cholecalciferol [Vitamin D3] 2,000 unit PO DAILY amLODIPine [Norvasc] 5 mg PO QAM HYDROcodone/APAP 5-325MG [Morton 5-325] 1 tab PO Q4HR PRN #14 tab PRN Reason: Pain Control Acetaminophen-Codeine 300-30mg [Tylenol w/codeine #3] 1 tab PO Q6H PRN 3 Days #12 tablet PRN Reason: Pain Discharge Medication List Estradiol [Estrace] 2 mg PO QAM 05/14/14 [History] Nadolol [Corgard] 40 mg PO QAM 05/14/14 [History] Pantoprazole Sodium [Protonix] 40 mg PO BID 05/14/14 [History] Albuterol Inhaler [Ventolin Hfa Inhaler] 1 - 2 puff INHALATION RT-QID PRN [History] SUMAtriptan SUCCINATE [Imitrex] 25 mg PO DAILY PRN 12/02/15 [History] Acetaminophen Tab [Tylenol Tab] 650 mg PO BID 01/15/16 [History] Cartilage/Collagen II/Hyaluron [Move Free Ultra Tablet] 1 tab PO DAILY 01/15/16 [History] Lysine 500 mg PO DAILY 01/15/16 [History] Ipratropium-Albuterol Nebulize [Duoneb 0.5 mg-3 mg/3 ml Soln] 3 ml INHALATION RT -BID 01/19/16 [History] Cholecalciferol [Vitamin D3] 2,000 unit PO DAILY 05/11/18 [History] amLODIPine [Norvasc] 5 mg PO QAM 05/11/18 [History] HYDROcodone/APAP 5-325MG [Morton 5-325] 1 tab PO Q4HR PRN #14 tab 05/17/18 [Rx] Acetaminophen-Codeine 300-30mg [Tylenol w/codeine #3] 1 tab PO Q6H PRN 3 Days # 12 tablet 06/18/18 [Rx] Follow up Appointment(s)/Referral(s): Sergey Castorena MD [STAFF PHYSICIAN] - 2 Weeks Sergio Mcmahan MD [Primary Care Provider] - 1-2 days
--- NOTE | 2018-06-20 08:32 | PN ---
PROGRESS NOTE Mrs. Oliver is a 72-year-old female who presented with symptoms of chest discomfort as well as a syncopal episode. She is feeling well this morning. Her dizziness has resolved. She has been ambulating without difficulty. She denies any palpitation or syncope. On the monitor, she is in sinus mechanism with no acute changes. She underwent a CT angiogram of the chest yesterday revealed no evidence of pulmonary embolism. Her echocardiogram performed yesterday revealed a preserved left ventricular size and systolic function. She continues to be at this time on amlodipine 5 mg daily, estradiol, nadolol 40 mg daily, and Protonix. PHYSICAL EXAMINATION: Blood pressure 105/60 with the heart rate in the 80s. LUNGS: Clear. HEART: Regular rate and rhythm. S1, S2. No S3. No rub. ABDOMEN: Soft, nontender. EXTREMITIES: No edema. IMPRESSIONS: 1. Syncopal episode, appears to be orthostatic hypotension. 2. Chest discomfort, atypical for ischemic heart disease. 3. History of coronary artery disease by cardiac catheterization, mild. 4. Prior history of paroxysmal atrial fibrillation. RECOMMENDATION: From the cardiac standpoint, is stable. I would expect she should be able to be discharged home soon and follow up as an outpatient with Dr. Castorena. MMODL / IJN: [id number] /
[2018-06-20] MEDS: CHOLECALCIFEROL 1,000 UNIT TAB PO SCH (08:57)
[2018-06-20] MEDS: amLODIPine 5 MG TAB PO SCH (08:57)
[2018-06-20] MEDS: PANTOPRAZOLE 40 MG TABLET PO SCH (08:57)
[2018-06-20] MEDS: IPRATROPIUM-ALBUTEROL 3 ML NEB INHALATION SCH (08:57)
[2018-06-20] MEDS: NADOLOL 20 MG TAB PO SCH (08:57)
[2018-06-20] MEDS: ACETAMINOPHEN TAB 325 MG TAB PO SCH (08:57)
[2018-06-20 09:09] VITALS: PULSE 68
[2018-06-20] MEDS: ESTRADIOL 0.5 MG TAB PO SCH (09:34)
[2018-06-20] MEDS: CIPROFLOXACIN HCL 250 MG TAB PO SCH (09:34)
== END 2018-06-20 11:29 | disposition home or self-care (01) ==
LOC: EC 01:22 → 3OBS 05:36
PROVIDERS: ADMIT Internal Medicine; ATTEND Internal Medicine
DX: R07.89 Other chest pain (principal); I44.7 Left bundle-branch block, unspecified; R55 Syncope and collapse; R79.89 Other specified abnormal findings of blood chemistry; I25.10 Atherosclerotic heart disease of native coronary artery without angina pectoris; I11.9 Hypertensive heart disease without heart failure; I47.1 Supraventricular tachycardia; G43.909 Migraine, unspecified, not intractable, without status migrainosus; M79.7 Fibromyalgia; M19.90 Unspecified osteoarthritis, unspecified site; M06.9 Rheumatoid arthritis, unspecified; K21.9 Gastro-esophageal reflux disease without esophagitis; J45.909 Unspecified asthma, uncomplicated; E89.0 Postprocedural hypothyroidism; S02.2XXA Fracture of nasal bones, initial encounter for closed fracture; S01.21XA Laceration without foreign body of nose, initial encounter; T14.8XXA Other injury of unspecified body region, initial encounter; W01.0XXA Fall on same level from slipping, tripping and stumbling without subsequent striking against object, initial encounter; I48.0 Paroxysmal atrial fibrillation; Z79.899 Other long term (current) drug therapy; Z88.0 Allergy status to penicillin; Z88.1 Allergy status to other antibiotic agents; Z88.2 Allergy status to sulfonamides; Z88.8 Allergy status to other drugs, medicaments and biological substances; Z96.641 Presence of right artificial hip joint; Z90.710 Acquired absence of both cervix and uterus; Z90.722 Acquired absence of ovaries, bilateral; Z98.1 Arthrodesis status; Z96.651 Presence of right artificial knee joint; Z91.81 History of falling; Z80.9 Family history of malignant neoplasm, unspecified; Z82.49 Family history of ischemic heart disease and other diseases of the circulatory system
CPT/HCPCS: 99285 ×2; 96374; 36415; 94640 ×3; 93005; 93306; 85379; 83880; 80053; 82550; 82553; 83735; 84484; 85025; 85610; 85730; 81001; 71046; 71275; G0378 ×2; J2405; Q9967

== ENCOUNTER → 2018-08-01 | Outpatient (CLI) | payer MEDICARE, BC ==
--- NOTE | 2018-08-01 19:25 | MR ---
EXAMINATION TYPE: MR lumbar spine wo con DATE OF EXAM: 08/01/2018 COMPARISON: Prior lumbar MRI 08/07/2015, CT lumbar spine dated 06/01/2018 HISTORY: Low back pain TECHNIQUE: Multiplanar, multisequence images of the lumbar spine were acquired. L1-L2: There is mild posterior broad-based disc bulge causing only slight anterior mass effect on the thecal sac. Some mild facet arthropathy is present. No significant foraminal encroachment. L2-L3: There is facet arthropathy with hypertrophy of the ligamentum flavum causing some posterior la teral mass effect on the thecal sac. Mild posterior broad-based disc bulge causes slight anterior mas s effect on the thecal sac. Trefoil appearance of the thecal sac noted. L3-L4: No evident disc herniation or significant foraminal encroachment. Intermediate T1 signal quest ion to the left of the thecal sac could be coursing towards the neural foramen, there may be some loc al fibrosis. L4-L5: No significant disc herniation or foraminal encroachment is evident. There is intermediate T1 signal lateral to the thecal sac to the left of midline which could possibly represent fibrosis exten ding towards the neural foramen L5-S1: There is a circumferential extension of endplate disc complex encroaches upon the neural maral en mildly on the left. No significant central stenosis or evident recurrent disc herniation. There is intermediate T1 signal suggesting fibrosis noted posterior to the thecal sac extending towards the l eft of midline towards the neural foramen. Postop changes are again noted status post posterior lumbar fusion at L3-S1, there is a vertebral spa cing blocks present. Susceptibility artifact is present which may limit sensitivity. There is no evid ent spinal stenosis. Screws transpedicular screws breach anterior cortex at multiple vertebral bodies . No significant spinal stenosis. No paraspinal masses are identified. Conus medullaris has a normal appearance. Lack of contrast could compromise sensitivity. Suspect cortical cysts associated with th e bilateral kidneys. IMPRESSION: Postop changes. Suspect fibrosis at the surgical sites as described at L3-4, L4-5, L5-S1, difficult t o exclude involvement of the left L5, S1 or additional nerve roots. No recurrent disc herniation evid ent. Mild facet arthropathy changes. Additional findings above.
== END ==
LOC: RADMRIMAIN 15:28
PROVIDERS: ATTEND Neurological Surgery
DX: M46.96 Unspecified inflammatory spondylopathy, lumbar region (principal); Z98.890 Other specified postprocedural states
CPT/HCPCS: 72148

== ENCOUNTER 2018-08-21 07:33 | Day surgery (SDC) | payer MEDICARE, BC ==
[2018-08-16 11:26] VITALS: BMI 27.4
[~2018-08-21 07:33] MED LIST changes: -GENTAMICIN 100 MG in SODIUM CHLORIDE 0.9% 100 ML IVPB ONE; -LACTATED RINGERS 1,000 ML IV SCH; -ONDANSETRON 4 MG/2 ML VIAL IVP PRN; -Pre Op ABX Message 1 EACH MISC MISCELLANE ONE; +SODIUM CHLORIDE 0.9% 1,000 ML IV SCH; -fentaNYL (PF) 50 MCG/ML 2 ML AMP IV PRN
[2018-08-21 07:46] VITALS: BP 198/80; PULSE 67; RESP 18; TEMP 97.6
--- NOTE | 2018-08-21 13:27 | P.PCN ---
Preoperative Diagnosis: Diagnoses Dizzy spells Syncope and fall Twelve-lead ECG shows sinus mechanism normal NE , left bundle-branch block pattern Tilt table test per protocol Baseline blood pressure 178/77 mmHg, heart rate 60 beats a minute There was a stepwise gradual decline in the systolic blood pressure. The lowest blood pressure noted was 79/43 mmHg the patient complained of extreme fatigue feeling flushed and an upset stomach. Once she was laid supine, blood pressure went back to 177/73 mmHg Minimal increase in heart rate, not commensurate with the progressive drop in blood pressure Impression Orthostatic hypotension syndrome Anesthesia: none Condition: stable Disposition: same day
== END 2018-08-21 10:12 | disposition home or self-care (01) ==
LOC: CATHEP 07:33
PROVIDERS: ATTEND Internal Medicine Clinical Cardiac Electrophysiology
DX: I95.1 Orthostatic hypotension (principal); I44.7 Left bundle-branch block, unspecified; I73.9 Peripheral vascular disease, unspecified; I10 Essential (primary) hypertension; I25.10 Atherosclerotic heart disease of native coronary artery without angina pectoris; I47.1 Supraventricular tachycardia; Z82.49 Family history of ischemic heart disease and other diseases of the circulatory system; Z79.890 Hormone replacement therapy; Z79.899 Other long term (current) drug therapy; Z88.8 Allergy status to other drugs, medicaments and biological substances; Z88.5 Allergy status to narcotic agent; Z88.0 Allergy status to penicillin; Z88.1 Allergy status to other antibiotic agents; Z88.2 Allergy status to sulfonamides
CPT/HCPCS: 93660

== ENCOUNTER → 2018-11-02 | Outpatient (CLI) | payer MEDICARE, BC ==
--- NOTE | 2018-11-02 13:05 | XR ---
EXAMINATION TYPE: XR cervical spine comp DATE OF EXAM: 11/02/2018 TECHNIQUE: Frontal, lateral, oblique, swimmers, and open mouth view of the cervical spine are davian dNani HISTORY: Z98.1 Arthrodesis status postsurgical change progress study. COMPARISON: CT cervical spine June 18, 2018 FINDINGS: The cervical spine is visualized in its entirety from C1 thru the top of T1 level, it is s table and satisfactory in alignment without evidence of acute fracture or dislocation. The pre-verte bral soft tissue remains within normal limits. The C1-C2 articulation is within normal limits on the open mouth view. Anterior fusion plate with artificial disc material C4-C7 level is redemonstrated. Vertebral body heights and disc space heights above C4 level are within normal limits. The oblique i mages are within normal limits. Overlying soft tissue is unremarkable. IMPRESSION: Postsurgical changes C4-C7 level with stable and satisfactory alignment.
== END | disposition home or self-care (01) ==
LOC: RADXRMAIN 11:47
PROVIDERS: ATTEND Neurological Surgery
DX: Z47.89 Encounter for other orthopedic aftercare (principal); Z98.1 Arthrodesis status
CPT/HCPCS: 72050

== ENCOUNTER → 2018-11-08 | Outpatient (CLI) | payer MEDICARE, BC ==
[2018-11-08 15:18] LABS: Appearance,Urine Cloudy (Clear); Bilirubin,Urine Negative (Negative); Blood,Urine Negative (Negative); Color,Urine Yellow; Glucose,Urine (UA) Negative (Negative); Ketones,Urine Negative (Negative); Leukocyte Esterase,Urine Large (Negative); Mucus,Urine Few /hpf; Nitrite,Urine Negative (Negative); PH, Urine 5.5 (5.0-8.0); Potassium 4.6 mmol/L (3.5-5.1); Protein,Urine 1+ (Negative); RBC,Urine 28 /hpf (0-5); Specific Gravity,Urine 1.031 (1.001-1.035); Squamous Epithelial Cell,Urine 10 /hpf (0-4); Urobilinogen,Urine <2.0 mg/dL (<2.0); WBC,Urine 136 /hpf (0-5)
[2018-11-08 15:26] LABS: Basophils % (A) 0 %; Eosinophils # (A) 0.2 k/uL (0-0.7); Eosinophils % (A) 3 %; HCT 36.1 % (34.0-46.0); HGB 10.9 gm/dL (11.4-16.0); Lymphocytes # (A) 1.5 k/uL (1.0-4.8); Lymphocytes % (A) 21 %; MCH 29.5 pg (25.0-35.0); MCHC 30.2 g/dL (31.0-37.0); MCV 97.6 fL (80.0-100.0); Mean Platelet Volume 6.1; Monocytes # (A) 0.4 k/uL (0-1.0); Monocytes % (A) 6 %; Neutrophils # (A) 4.8 k/uL (1.3-7.7); Neutrophils % (A) 68 %; Platelet Count 406 k/uL (150-450); RDW 14.8 % (11.5-15.5)
== END | disposition home or self-care (01) ==
LOC: LABPAT 13:59
PROVIDERS: ATTEND Urology
DX: Z01.812 Encounter for preprocedural laboratory examination (principal); N39.3 Stress incontinence (female) (male); R35.0 Frequency of micturition; R31.29 Other microscopic hematuria; Z79.899 Other long term (current) drug therapy
CPT/HCPCS: 36415; 80048; 81001; 85025; 87086

== ENCOUNTER 2018-11-15 06:17 | Day surgery (SDC) | payer MEDICARE, BC ==
[2018-11-13 16:16] VITALS: BMI 27.1
--- NOTE | 2018-11-14 14:39 | P.GSHP ---
History of Present Illness H&P Date: 11/14/18 73 yo female with a history of maricarmen SHe had a tot years ago that controlled her incontinence. 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 I did a vaginal exploration with removal of the synthetic sling that didnt help in her discharge. She eventually got that under control but ended up with return of her maricarmen. SHe now comes for a pubovaginal sling with autologous fascia. 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 Gonzalez). Last Myocardial Infarction Date:: 2012 History of Any Multi-Drug Resistant Organisms: None Reported Past Surgical History: Back Surgery, Heart Catheterization, Hysterectomy, Joint Replacement, Orthopedic Surgery Additional Past Surgical History / Comment(s): RODS & CAGES IN BACK AND NECK , RT HIP REPLACEMENT, PARTIAL THYROIDECTOMY, RT KNEE REPLACEMENT Past Anesthesia/Blood Transfusion Reactions: Previous Problems w/ Anesthesia, Postoperative Nausea & Vomiting (PONV) Additional Past Anesthesia/Blood Transfusion Reaction / Comment(s): hard to wake up Smoking Status: Never smoker - Past Family History Sister(s) Family Medical History: Cancer Brother(s) Family Medical History: Cancer Mother Family Medical History: Myocardial Infarction ([place]) Additional Family Medical History / Comment(s): Mother of a [place] at the age of 76yrs. Father History Unknown: Yes Medications and Allergies Home Medications Medication Instructions Recorded Confirmed Type Estradiol [Estrace] 2 mg PO QAM 05/14/14 11/13/18 History Nadolol [Corgard] 40 mg PO QAM 05/14/14 11/13/18 History Pantoprazole Sodium [Protonix] 40 mg PO BID 05/14/14 11/13/18 History Albuterol Inhaler [Ventolin Hfa 1 - 2 puff INHALATION Q4H PRN 12/02/15 11/13/18 History Inhaler] Cartilage/Collagen II/Hyaluron 1 tab PO DAILY 01/15/16 11/13/18 History [Move Free Ultra Tablet] Lysine 1,000 mg PO DAILY 01/15/16 11/13/18 History amLODIPine [Norvasc] 2.5 mg PO QAM 05/11/18 11/13/18 History Acetaminophen [Tylenol Extra 1,000 mg PO BID 08/16/18 11/13/18 History Strength] Albuterol Nebulized [Ventolin 2.5 mg INHALATION TID 08/16/18 11/13/18 History Nebulized] Ipratropium Nebulized [Atrovent 0.5 mg INHALATION TID BETWEEN MEALS 11/13/18 History Nebulized 0.2 MG/ML] Allergies Allergy/AdvReac Type Severity Reaction Status Date / Time cephalexin monohydrate Allergy HIVES Verified 11/13/18 15:26 [From Keflex] diphenhydramine HCl Allergy SWELLING Verified 11/13/18 15:26 [From Benadryl] OF TONGUE, SOB Penicillins Allergy SWELLING, Verified 11/13/18 15:26 HIVES sulfamethoxazole AdvReac Nausea & Verified 11/13/18 15:26 [From Bactrim] Vomiting trimethoprim [From Bactrim] AdvReac Nausea & Verified 11/13/18 15:26 Vomiting Surgical - Exam - General well developed, well nourished - Eyes PERRL - ENT no hearing loss - Neck trachea midline - Respiratory normal expansion, normal respiratory effort - Cardiovascular Rhythm: regular - Abdomen Abdomen: soft, non tender - Genitourinary hyper mobile urethra with maricarmen normal external genitalia, normal perineum - Integumentary no rash, no growths - Neurologic normal coordination, normal sensation - Musculoskeletal normal gait, normal posture - Psychiatric oriented to time, oriented to person, oriented to place, speech is normal, memory intact Assessment and Plan Assessment: Impression: MARICARMEN Plan pubovaginal sling with autologous rectus fascia and a cystoscopy
[~2018-11-15 06:17] MED LIST changes: +CLINDAMYCIN 900 MG in DEXTROSE 5% IN WATER 50 ML IVPB ONE; +DEXAMETHASONE SOD PHOSPHATE 10 MG/ML 1 ML VIAL IV ONE; +GENTAMICIN 110 MG in SODIUM CHLORIDE 0.9% 100 ML IVPB ONE; +LIDOCAINE 1% 20 ML VIAL (10MG/ML) FOR IV START INTRADERMA PRN; +MIDAZOLAM 2 MG/2 ML VIAL IV PRN; -SODIUM CHLORIDE 0.9% 1,000 ML IV SCH
[2018-11-15] MEDS: LACTATED RINGERS 1,000 ML IV SCH (06:55)
[2018-11-15] MEDS ORDERED: ONDANSETRON 4 MG/2 ML VIAL IVP ONE (06:57)
[2018-11-15] MEDS ORDERED: SCOPOLAMINE 1.5MG/72HR PATCH TRANSDERM ONE (06:59)
[2018-11-15] MEDS ORDERED: fentaNYL (PF) 50 MCG/ML 2 ML AMP ONE (07:23)
[2018-11-15] MEDS ORDERED: MIDAZOLAM 2 MG/2 ML VIAL ONE (07:23)
[2018-11-15] MEDS ORDERED: ROCURONIUM BROMIDE 10 MG/ML 10 ML VIAL IV ONE (07:23)
[2018-11-15] MEDS ORDERED: LIDOCAINE 1% INJ 10MG/ML (20 ML MDV) ONE (07:23)
[2018-11-15] MEDS ORDERED: SUCCINYLCHOLINE CHLORIDE 100 MG/5 ML SYR IV ONE (07:23)
[2018-11-15] MEDS ORDERED: PROPOFOL 10 MG/ML 20 ML VIAL IV ONE (07:23)
[2018-11-15] MEDS ORDERED: GLYCOPYRROLATE 0.2 MG/ML 2 ML VIAL ONE (07:23)
[2018-11-15] MEDS ORDERED: NEOSTIGMINE 1 MG/ML 10 ML VIAL ONE (07:23)
[2018-11-15] MEDS ORDERED: ALBUTEROL NEBULIZED 2.5 MG/3 ML INHALATION PRN (07:37)
[2018-11-15] MEDS ORDERED: MORPHINE SULFATE 2 MG/ML SYRINGE IVP PRN (07:40)
[2018-11-15] MEDS ORDERED: ONDANSETRON 4 MG/2 ML VIAL IVP PRN (07:41)
[2018-11-15] MEDS ORDERED: VASOPRESSIN 20 UNIT/ML 1 ML VIAL IM ONE (07:54)
[2018-11-15] MEDS ORDERED: GENTAMICIN 40 MG/ML 2 ML VIAL IRRIGATION ONE (07:59)
[2018-11-15] MEDS ORDERED: BACITRACIN 500 UNIT/GM OINT 28.4 GM TUBE TOPICAL ONE (08:44)
--- NOTE | 2018-11-15 08:52 | P.OP ---
Date of Procedure: 11/15/18 Preoperative Diagnosis: Stress urinary incontinence Postoperative Diagnosis: Same Procedure(s) Performed: Pubovaginal sling with rectus fascia, cystoscopy Anesthesia: RITESH Surgeon: Brannon Addison Estimated Blood Loss (ml): 50 Pathology: none sent Condition: stable Disposition: PACU Indications for Procedure: The patient is 73. She has a history of stress incontinence. She had a monarch sling any years ago. She presented last year with a possible erosion. The graft was removed but apparently was not eroded. Her vaginal discharges eventually disappeared after antifungal medication despite it not clearing prior to removal of the sling. Her stress incontinence has returned. She comes for pubovaginal sling with autologous fascia. The risks and complications including retention injury to adjacent organs failure to control the incontinence been explained and understood and accepted Description of Procedure: Patient is brought to the operating suite she is given a successful general endotracheal anesthesia. She's placed in lithotomy position with a sterile abdominal vaginal prep. She is draped appropriately. A Logan catheters introduced successfully. The labia are sewn laterally with 2-0 silk. The anterior vaginal mucosa was elevated off the submucosa with a mixture of 20 mg of Pitressin and 200 mL of saline. A midline suburethral incision is made. I tediously dissect lateral the bladder neck through scar tissue from her previous hysterectomy and 2 vaginal procedures. I then make a Pfannenstiel incision. I dissect down to the rectus fascia. A clean the scar and fat off the rectus fascia. An ellipse of 2 x 6 cm of rectus fascia was obtained. The rectus fascias closed with running 0 PDS. The ends of the rectus fascia graft her sewn with 2-0 Prolene. I then passed the Stamey needles retropubically at the corners of the pubis into the vaginal space. I then look for cystoscopy and 19-Kyrgyz sheath and Foroblique lens and there is no evidence of penetration of the needles into the bladder. I then take the Prolene stitches placed in through the eyes of the Stamey needles bring him back suprapubically. I then laid the graft at the bladder neck and secured with a 3-0 Vicryl. I reinspected the bladder neck there is no perforation elevate the stitches and the bladder neck occludes nicely. I then closed the vaginal [place] with 3-0 Vicryl. The Logan is replaced. The Prolene stitches are tied to one another over the rectus fascia such that 1-2 fingers could fit between the fascia and the graft stitches. The subcutaneous tissues closed with 4-0 Vicryl the skin with 4-0 Monocryl. The patient awake and returned recovery in good condition. Vaginal packing in place. The labial stitches are removed. The urine remains clear. Blood loss is at most 50 mL. She tolerated procedure well be placed in the hospital postoperatively.
[2018-11-15] MEDS: fentaNYL (PF) 50 MCG/ML 2 ML AMP IV PRN ×2 (09:01→09:13)
[2018-11-15] MEDS: HYDROmorphone 1 MG/ML 1 ML SYRINGE IVP ONE ×2 (09:35→09:52)
[2018-11-15] MEDS ORDERED: KETOROLAC 30 MG/ML 1 ML VIAL IVP ONE ×2 (09:40)
[2018-11-15] MEDS: amLODIPine 2.5 MG TAB PO SCH (11:16)
[2018-11-15] MEDS: KETOROLAC 30 MG/ML 1 ML VIAL IVP PRN ×2 (11:55→19:11)
[2018-11-15] MEDS: ESTRADIOL 0.5 MG TAB PO SCH (14:01)
[2018-11-15] MEDS: NADOLOL 20 MG TAB PO SCH (14:01)
[2018-11-15] MEDS: PANTOPRAZOLE 40 MG TABLET PO SCH ×2 (14:01→18:41)
[2018-11-15] MEDS: HYDROcodone/APAP 5-325MG 1 EACH TAB PO PRN (16:17)
[2018-11-15] MEDS: ALBUTEROL NEBULIZED 2.5 MG/3 ML INHALATION SCH ×2 (16:36→19:49)
[2018-11-15] MEDS: IPRATROPIUM 0.5 MG/2.5 ML NEBU INHALATION SCH ×3 (16:36→19:49)
[2018-11-15] MEDS ORDERED: BENZOCAINE/MENTHOL LOZENG 1 EACH LOZENGE MUCOUS MEM PRN (19:42)
[2018-11-15] MEDS: DEXTROSE 5%-0.45% NACL 1,000 ML IV SCH (19:46)
[2018-11-16] MEDS: KETOROLAC 30 MG/ML 1 ML VIAL IVP PRN ×2 (01:05→11:13)
[2018-11-16] MEDS: DEXTROSE 5%-0.45% NACL 1,000 ML IV SCH ×2 (01:18→15:02)
[2018-11-16] MEDS: LACTATED RINGERS 1,000 ML IV SCH (06:40)
[2018-11-16] MEDS: amLODIPine 2.5 MG TAB PO SCH (08:14)
[2018-11-16] MEDS: PANTOPRAZOLE 40 MG TABLET PO SCH ×2 (08:14→19:09)
[2018-11-16] MEDS: ESTRADIOL 0.5 MG TAB PO SCH (08:14)
[2018-11-16] MEDS: NADOLOL 20 MG TAB PO SCH (08:15)
[2018-11-16] MEDS: ALBUTEROL NEBULIZED 2.5 MG/3 ML INHALATION SCH (08:26)
[2018-11-16] MEDS: IPRATROPIUM 0.5 MG/2.5 ML NEBU INHALATION SCH (08:26)
--- NOTE | 2018-11-16 12:19 | P.PN ---
Subjective Progress Note Date: 11/16/18 The patient is in her first postoperative day from a pubovaginal sling with cystoscopy. The catheter and vaginal packing have been removed. She has not voided yet. She is somewhat uncomfortable as expected. We'll see how she voids today. If she is unable to void either catheter will be replaced or she' ll need intermittent catheterization. I did explain her if she has trouble with voiding over the first week I would need to lose sling. I will keep her until tomorrow. Objective - Vital Signs Vital signs: Vital Signs Temp 98.1 F 11/16/18 08:00 Pulse 58 L 11/16/18 08:41 Resp 18 11/16/18 08:00 BP 145/62 11/16/18 08:00 Pulse Ox 97 11/16/18 08:00 Intake & Output 11/15/18 11/16/18 11/16/18 18:59 06:59 18:59 Intake Total 1358.75 700 Output Total 965 500 Balance 393.75 200 Intake: IV 1358.75 700 Lactated Ringers 1,000 ml 200 700 @ 20 mls/hr IV .Q24H [facility] Rx#:[id number] Output: Urine 950 500 Uretheral (Logan) 300 Estimated Blood Loss 15 Other: Voiding Method Indwelling Catheter
[2018-11-16] MEDS: IPRATROPIUM-ALBUTEROL 3 ML NEB INHALATION SCH ×2 (13:29→20:13)
[2018-11-16] MEDS: HYDROcodone/APAP 5-325MG 1 EACH TAB PO PRN (19:09)
[2018-11-17] MEDS ORDERED: ACETAMINOPHEN TAB 500 MG TAB PO PRN (07:22)
[2018-11-17] MEDS: PANTOPRAZOLE 40 MG TABLET PO SCH (07:23)
--- NOTE | 2018-11-17 07:28 | P.DS ---
Providers Date of admission: 11/15/2018 Attending physician: Brannon Addison Primary care physician: [facility] Course: 73 yo female admitted 11/15/2018 for a pubovaginal sling for incontinence. This was done without problem. SHe did well post op SHe voidied without problems HEr pain is under control Her wound looks good SHe is ready for d/c Post op instructions have been given AN rx has been given for a small amount of norco SHe will fu in the office in 1 week SHe josselin resume herhome meds SHe will have a regular diet Her condition is good Patient Condition at Discharge: Good Plan - Discharge Summary Discharge Rx Participant: Yes New Discharge Prescriptions: New HYDROcodone/APAP 5-325MG [[place] 5-325] 1 tab PO Q4HR PRN #10 tab PRN Reason: Pain No Action Pantoprazole Sodium [Protonix] 40 mg PO BID Nadolol [Corgard] 40 mg PO QAM Estradiol [Estrace] 2 mg PO QAM Albuterol Inhaler [Ventolin Hfa Inhaler] 1 - 2 puff INHALATION Q4H PRN PRN Reason: Shortness Of Breath Cartilage/Collagen II/Hyaluron [Move Free Ultra Tablet] 1 tab PO DAILY Lysine 1,000 mg PO DAILY amLODIPine [Norvasc] 2.5 mg PO QAM Acetaminophen [Tylenol Extra Strength] 1,000 mg PO BID Albuterol Nebulized [Ventolin Nebulized] 2.5 mg INHALATION TID Ipratropium Nebulized [Atrovent Nebulized 0.2 MG/ML] 0.5 mg INHALATION TID BETWEEN MEALS Discharge Medication List Estradiol [Estrace] 2 mg PO QAM 05/14/14 [History] Nadolol [Corgard] 40 mg PO QAM 05/14/14 [History] Pantoprazole Sodium [Protonix] 40 mg PO BID 05/14/14 [History] Albuterol Inhaler [Ventolin Hfa Inhaler] 1 - 2 puff INHALATION Q4H PRN 12/02/15 [History] Cartilage/Collagen II/Hyaluron [Move Free Ultra Tablet] 1 tab PO DAILY 01/15/16 [History] Lysine 1,000 mg PO DAILY 01/15/16 [History] amLODIPine [Norvasc] 2.5 mg PO QAM 05/11/18 [History] Acetaminophen [Tylenol Extra Strength] 1,000 mg PO BID 08/16/18 [History] Albuterol Nebulized [Ventolin Nebulized] 2.5 mg INHALATION TID 08/16/18 [History ] Ipratropium Nebulized [Atrovent Nebulized 0.2 MG/ML] 0.5 mg INHALATION TID BETWEEN MEALS 11/13/18 [History] HYDROcodone/APAP 5-325MG [[place] 5-325] 1 tab PO Q4HR PRN #10 tab 11/17/18 [Rx] Follow up Appointment(s)/Referral(s): Brannon Addison MD [STAFF PHYSICIAN] - 1 Week Activity/Diet/Wound Care/Special Instructions: resume home meds, may shower Discharge Disposition: HOME SELF-CARE
[2018-11-17] MEDS ORDERED: ACETAMINOPHEN TAB 325 MG TAB PO PRN (07:35)
[2018-11-17 09:09] VITALS: BP 152/79; PULSE 76; RESP 16; TEMP 97.7
[2018-11-17] MEDS: ESTRADIOL 0.5 MG TAB PO SCH (09:46)
[2018-11-17] MEDS: amLODIPine 2.5 MG TAB PO SCH (09:47)
[2018-11-17] MEDS: NADOLOL 20 MG TAB PO SCH (09:47)
== END 2018-11-17 09:40 | disposition home or self-care (01) ==
LOC: OR 06:17 → 4FBP 08:58 → OR 11-17 09:40
PROVIDERS: ATTEND Urology
DX: N39.3 Stress incontinence (female) (male) (principal); I25.2 Old myocardial infarction; I10 Essential (primary) hypertension; I44.7 Left bundle-branch block, unspecified; J45.909 Unspecified asthma, uncomplicated; K21.9 Gastro-esophageal reflux disease without esophagitis; Z79.899 Other long term (current) drug therapy; Z98.1 Arthrodesis status
CPT/HCPCS: 57288; C1762; 94640

== ENCOUNTER → 2019-06-28 | Outpatient (CLI) | payer MEDICARE, BC ==
--- NOTE | 2019-06-28 13:07 | CT ---
EXAMINATION TYPE: CT angio chest DATE OF EXAM: 06/28/2019 COMPARISON: June 19, 2018 HISTORY: Shortness of breath and cough. CT DLP: 206.6 mGycm CONTRAST: CT chest with contrast and 3D reconstruction with MIP imaging is performed with IV Contrast, patient injected with 60 mL of Isovue 370. Contrast-enhanced CT of the chest was performed through the course of the pulmonary arteries with vannesa g and mediastinal window settings submitted. 3D reconstruction with MIP imaging was also performed. PULMONARY ARTERIES: The pulmonary arteries and their major tributaries are patent. I do not see adry dence for sizable filling defect to suggest pulmonary embolic process. LUNGS: The lungs are clear and free of infiltrate. No evidence for atelectasis. No pulmonary nodule or mass is detected. No pleural effusion. MEDIASTINUM: Thoracic aorta is of normal caliber,however, evaluation is limited given timing of the contrast bolus. If there is concern for thoracic aortic pathology consider IMMANUEL. Correlate clinicall y . The heart is enlarged. No evidence for mediastinal mass. No mediastinal lymph nodes greater pino n 1cm. HILAR STRUCTURES: No evidence for mass. No hilar lymph nodes greater than 1 cm. UPPER ABDOMEN: No significant abnormality is seen. IMPRESSION: 1. No evidence for Pulmonary embolism at this time.
== END | disposition home or self-care (01) ==
LOC: RADCTMAIN 11:41
PROVIDERS: ATTEND Internal Medicine Critical Care Medicine
DX: R06.02 Shortness of breath (principal); Z88.0 Allergy status to penicillin; Z88.8 Allergy status to other drugs, medicaments and biological substances
CPT/HCPCS: 82565; 84520; 71275; 36415; Q9967

== ENCOUNTER 2019-07-06 10:50 | Day surgery (SDC) | payer MEDICARE, BC ==
[2019-07-04 14:37] VITALS: BMI 26.6
[~2019-07-06 10:50] MED LIST changes: +ALBUTEROL NEB (CONC) 2.5 MG/0.5 ML INHALATION ONE; -CLINDAMYCIN 900 MG in DEXTROSE 5% IN WATER 50 ML IVPB ONE; -DEXAMETHASONE SOD PHOSPHATE 10 MG/ML 1 ML VIAL IV ONE; -GENTAMICIN 110 MG in SODIUM CHLORIDE 0.9% 100 ML IVPB ONE; -LIDOCAINE 1% 20 ML VIAL (10MG/ML) FOR IV START INTRADERMA PRN; +LIDOCAINE 2% (PF) 20 MG/ML 5 ML VIAL INHALATION ONE; +LIDOCAINE VISCOUS 300 MG/15 ML CUP MUCOUS MEM ONE; -MIDAZOLAM 2 MG/2 ML VIAL IV PRN; +SODIUM CHLORIDE 0.9% 1,000 ML IV SCH
[2019-07-06] MEDS ORDERED: LIDOCAINE 1% 20 ML VIAL (10MG/ML) FOR IV START INTRADERMA ONE (11:35)
[2019-07-06] MEDS: LACTATED RINGERS 1,000 ML IV SCH ×2 (11:35→14:07)
[2019-07-06] MEDS ORDERED: ENALAPRILAT 1.25 MG/ML 1 ML VIAL IV ONE (11:40)
[2019-07-06] MEDS ORDERED: ONDANSETRON 4 MG/2 ML VIAL IVP ONE (11:40)
[2019-07-06 11:46] VITALS: RESP 16
[2019-07-06] MEDS ORDERED: GLYCOPYRROLATE 0.2 MG/ML 2 ML VIAL ONE (12:43)
[2019-07-06] MEDS ORDERED: fentaNYL (PF) 50 MCG/ML 2 ML AMP ONE (12:43)
[2019-07-06] MEDS ORDERED: LIDOCAINE 1% INJ 10MG/ML (20 ML MDV) ONE (12:43)
[2019-07-06] MEDS ORDERED: KETAMINE 10 MG/ML 20 ML VIAL ONE (12:43)
[2019-07-06] MEDS ORDERED: MIDAZOLAM 2 MG/2 ML VIAL ONE (12:43)
[2019-07-06] MEDS ORDERED: PROPOFOL 10 MG/ML 20 ML VIAL IV ONE (12:43)
[2019-07-06] MEDS ORDERED: LIDOCAINE 2% INJ 20 MG/ML INTRATRACH ONE (12:48)
[2019-07-06] MEDS ORDERED: methylPREDNISolone SOD SUCCI 125 MG/2 ML VIAL IV STA (13:07)
--- NOTE | 2019-07-06 13:07 | P.PCN ---
Date of Procedure: 07/06/19 Preoperative Diagnosis: chronic cough Postoperative Diagnosis: chronic cough Procedure(s) Performed: Flexible bronchoscopy, BAL Anesthesia: MAC Surgeon: Rebecca Bajwa Estimated Blood Loss (ml): 0 Pathology: other Condition: stable Disposition: same day Operative Findings: This procedure was done and the bronchoscopy suite for chronic of an acute exacerbation This procedure was done under conscious sedation. The patient was given propofol, fentanyl, ketamine and Versed. After achieving adequate sedation, the flexible bronchoscope was inserted through the right nostril. Examination of posterior oropharynx and larynx was done. Epiglottis was within normal limits. The vallecula arytenoids and avoid all within normal limits. Total of 2 mL of 1% lidocaine was applied to the vocal cords and following the bronchoscope was advanced into the upper airway. Examination of the tracheal bronchial tree was done and the trachea was within normal. Ariana was within normal limits. Bilateral mainstem bronchi were normal. The right upper lobe bronchus along with anterior apical and posterior segments were within normal limits. The bronchus intermedius was normal. The right middle lobe was slightly inflamed segments were visualized. The right lower lobe along with various segments were patent within normal limits. Examination of the left side shows some inflammatory changes and lingular segments. For the most part the left upper lobe bronchus left mainstem bronchus lingular segment and left lower lobe bronchus and the various segments were all patent within normal limits. Bronchoscope was wedged into the middle lobe and a total of 100 mL of fluid was infused in for seasonal suctioned back. The samples will be sent for microbial culture and analysis. The bronchial mucosa was slightly inflamed in the middle lobe area and the lingular segments. No endobronchial tumors. No lesions pain no positives. No nodules. Bronchoscope was removed and the patient was transferred recovery in stable condition. At the completion of the procedure the patient had a cough and some which is expected and this will hopefully subside. The patient will be given a prednisone burst taper time of discharge.
[2019-07-06 13:15] VITALS: TEMP 98
[2019-07-06] MEDS ORDERED: methylPREDNISolone SOD SUCCI 125 MG/2 ML VIAL IV ONE (13:15)
[2019-07-06] MEDS ORDERED: ALBUTEROL NEBULIZED 2.5 MG/3 ML INHALATION STA (14:02)
[2019-07-06 14:36] VITALS: BP 133/71; PULSE 70
== END 2019-07-06 15:10 | disposition home or self-care (01) ==
LOC: ORWHC2ENDO 10:50
PROVIDERS: ATTEND Internal Medicine Critical Care Medicine
DX: R05 Cough (principal); K21.9 Gastro-esophageal reflux disease without esophagitis; I10 Essential (primary) hypertension; J45.909 Unspecified asthma, uncomplicated; G89.29 Other chronic pain; M54.9 Dorsalgia, unspecified; M81.0 Age-related osteoporosis without current pathological fracture; M19.90 Unspecified osteoarthritis, unspecified site; I25.10 Atherosclerotic heart disease of native coronary artery without angina pectoris; M06.9 Rheumatoid arthritis, unspecified; Z87.11 Personal history of peptic ulcer disease; Z98.1 Arthrodesis status; Z90.710 Acquired absence of both cervix and uterus; Z88.1 Allergy status to other antibiotic agents; Z88.0 Allergy status to penicillin; Z88.8 Allergy status to other drugs, medicaments and biological substances; Z79.899 Other long term (current) drug therapy; Z79.52 Long term (current) use of systemic steroids
CPT/HCPCS: 94640 ×2; 87798 ×3; 87496; 87498; 87529; 87252; 87502; 87634; 87070; 87205; 87116; 87102; 87206; 31624; J2001 ×3; J2250; J2930; J2405; J3010; J2704

== ENCOUNTER 2019-07-12 15:29 | Emergency (ER) | payer MEDICARE, BC ==
[2019-07-12 16:10] VITALS: BP 165/80; PULSE 62; RESP 18; TEMP 97.4
[2019-07-12] MEDS ORDERED: HYDROcodone/APAP 7.5-325MG 1 EACH TAB PO ONE (16:23)
--- NOTE | 2019-07-12 17:00 | XR ---
EXAMINATION TYPE: XR Hip RT and AP Pelvis DATE OF EXAM: 07/12/2019 COMPARISON: 06/18/2018 HISTORY: Hip pain TECHNIQUE: A single AP view of the pelvis is obtained. Two views of the right hip are obtained. FINDINGS: There is right hip prosthesis. Pelvic ring is intact. Components appear in anatomic positio n. I see no fracture. Sacroiliac joints are intact. There is lower lumbar spine posterior fusion surg megha. IMPRESSION: No acute abnormality of the pelvis and right hip. No change.
--- NOTE | 2019-07-12 17:03 | XR ---
EXAMINATION TYPE: XR femur RT DATE OF EXAM: 07/12/2019 COMPARISON: NONE HISTORY: Pain. TECHNIQUE: 4 views FINDINGS: There is right hip prosthesis. There is right knee prosthesis. Components are in anatomic p osition. I see no fracture. IMPRESSION: No acute abnormality of the right femur.
[2019-07-12] MEDS ORDERED: ACET/COD 300 MG/30 MG STARTER PACK 6 TAB BTL PO STA (17:23)
--- NOTE | 2019-07-12 17:23 | ED ---
General Adult HPI - General Chief complaint: Extremity Injury, Lower Stated complaint: hip pain Time Seen by Provider: 07/12/19 16:16 Source: patient, RN notes reviewed, old records reviewed Mode of arrival: wheelchair Limitations: no limitations - History of Present Illness Initial comments: 72-year-old female patient past history is negative For total hip replacement 6 years ago presents to ED with chief complaint of right hip pain. Patient denies any falls or trauma. Patient reports that she feels pain in her right hip when she bears weight. Patient denies any other complaints at this time. Systemic: Pt denies fatigue, fever/chills, rash. Pt denies weakness, night sweats, weight loss. Neuro: Pt denies headache, visual disturbances, syncope or pre-syncope. HEENT: Pt denies ocular discharge or irritation, otalgia, rhinorrhea, pharyngitis or notable lymphadenopathy. Cardiopulmonary: Pt denies chest pain, SOB, heart palpitations, dyspnea on exertion. Abdominal/GI: Pt denies abdominal pain, n/v/d. : Pt denies dysuria, burning w/ urination, frequency/urgency. Denies new onset urinary or bowel incontinence. MSK: Pt denies loss of strength or function in extremities. Neuro: Pt denies new onset weakness, paresthesias. - Related Data Home Medications Medication Instructions Recorded Confirmed Estradiol [Estrace] 2 mg PO QAM 05/14/14 07/04/19 Nadolol [Corgard] 40 mg PO QAM 05/14/14 07/04/19 Pantoprazole Sodium [Protonix] 40 mg PO BID 05/14/14 07/04/19 Albuterol Inhaler [Ventolin Hfa 1 - 2 puff INHALATION Q4H PRN 12/02/15 07/04/19 Inhaler] Cartilage/Collagen II/Hyaluron 1 tab PO DAILY 01/15/16 07/04/19 [Move Free Ultra Tablet] Lysine 1,000 mg PO DAILY 01/15/16 07/04/19 amLODIPine [Norvasc] 2.5 mg PO QAM 05/11/18 07/04/19 Acetaminophen [Tylenol Extra 1,000 mg PO BID 08/16/18 07/04/19 Strength] Albuterol Nebulized [Ventolin 2.5 mg INHALATION TID 08/16/18 07/04/19 Nebulized] Ipratropium Nebulized [Atrovent 0.5 mg INHALATION TID BETWEEN MEALS 11/13/18 07/04/19 Nebulized 0.2 MG/ML] Previous Rx's Medication Instructions Recorded HYDROcodone/APAP 5-325MG [[place] 1 tab PO Q4HR PRN #10 tab 11/17/18 5-325] Allergies Allergy/AdvReac Type Severity Reaction Status Date / Time cephalexin monohydrate Allergy HIVES Verified 07/12/19 16:07 [From Keflex] diphenhydramine HCl Allergy SWELLING Verified 07/12/19 16:07 [From Benadryl] OF TONGUE, SOB Penicillins Allergy SWELLING, Verified 07/12/19 16:07 HIVES sulfamethoxazole AdvReac Nausea & Verified 07/12/19 16:07 [From Bactrim] Vomiting trimethoprim [From Bactrim] AdvReac Nausea & Verified 07/12/19 16:07 Vomiting Review of Systems ROS Statement: Those systems with pertinent positive or pertinent negative responses have been documented in the HPI. ROS Other: All systems not noted in ROS Statement are negative. 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, falls, vertigo if stands too quickly, melanoma removed from face, kidney stones, Last Myocardial Infarction Date:: 2012 History of Any Multi-Drug Resistant Organisms: None Reported Past Surgical History: Back Surgery, Heart Catheterization, Hysterectomy, Joint Replacement, Orthopedic Surgery Additional Past Surgical History / Comment(s): RODS & CAGES IN BACK, RT HIP REPLACEMENT, PARTIAL THYROIDECTOMY, RT KNEE REPLACEMENT Past Anesthesia/Blood Transfusion Reactions: Previous Problems w/ Anesthesia, Postoperative Nausea & Vomiting (PONV) Additional Past Anesthesia/Blood Transfusion Reaction / Comment(s): hard to wake up Past Psychological History: No Psychological Hx Reported Smoking Status: Never smoker Past Alcohol Use History: None Reported Past Drug Use History: None Reported - Past Family History Sister(s) Family Medical History: Cancer Brother(s) Family Medical History: Cancer Mother Family Medical History: Myocardial Infarction ([place]) Additional Family Medical History / Comment(s): Mother of a [place] at the age of 76yrs. Father History Unknown: Yes General Exam - General Exam Comments Initial Comments: Constitutional: NAD, AOX3, Pt has pleasant affect. HEENT: NC/AT, trachea midline, neck supple, no lymphadenopathy. Posterior pharynx non erythematous, without exudates. External ears appear normal, without discharge. Mucous membranes moist. Eyes PERRLA, EOM intact. There is no scleral icterus. No pallor noted. Cardiopulmonary: RRR, no murmurs, rubs or gallops, no JVD noted. Lungs CTAB in anterior and posterior ren. No peripheral edema. Abdominal exam: Abdomen soft and non-distended. Abdomen non-tender to palpation in all 4 quadrants. Bowel sounds active in LLQ. No hepatosplenomegaly. No ecchymosis Neuro: CN II-XII grossly intact. No nuchal rigidity. No raccon eyes, no cardozo sign, no hemotympanum. No cervical spinal tenderness. MSK: Pain with range of motion of right hip. Tenderness to lateral aspect of right hip region. Neurovascularly intact distally. Ambulatory with pain. No posterior calf tenderness bilaterally, homans sign negative bilaterally. Posterior tibialis and radial pulse +2 bilaterally. Sensation intact in upper and lower extremities. Full active ROM in upper and lower extremities, 5/5 stregnth. Limitations: no limitations Course Vital Signs 07/12/19 16:07 Temperature 97.4 F L Pulse Rate 62 Respiratory 18 Rate Blood Pressure 165/80 O2 Sat by Pulse 100 Oximetry Medical Decision Making - Medical Decision Making 72-year-old female patient past history is negative For total hip replacement 6 years ago presents to ED with chief complaint of right hip pain. Patient denies any falls or trauma. Patient reports that she feels pain in her right hip when she bears weight. Patient denies any other complaints at this time. PT VSS, afebrile. Physical exam displayed: Pain with range of motion of right hip. Tenderness to lateral aspect of right hip region. Neurovascularly intact distally. Ambulatory with pain. Plain film of hip, AP pelvis, right femur did not display acute process. Patient pain well-controlled. Patient is outpatient follow-up with orthopedic consult tomorrow. Patient return here condition worsens. Case discussed with Dr. Inman. Disposition Clinical Impression: Hip pain, right Disposition: HOME SELF-CARE Condition: Stable Instructions (If sedation given, give patient instructions): Hip Pain (ED) Additional Instructions: Patient to adhere to previously discussed treatment plan and will take medication(s) as directed. Patient to follow up with PCP in 1-2 days. Patient to return to ED if symptoms do not improve. Follow-up with orthopedic consult tomorrow. Use pain medication only as needed. Return to ER if condition worsens. Is patient prescribed a controlled substance at d/c from ED?: No Referrals: Lucie Tesfaye MD [Primary Care Provider] - 1-2 days
== END 2019-07-12 17:34 | disposition home or self-care (01) ==
LOC: EC 15:29
DX: M25.551 Pain in right hip (principal); J45.909 Unspecified asthma, uncomplicated; M79.7 Fibromyalgia; K21.9 Gastro-esophageal reflux disease without esophagitis; I10 Essential (primary) hypertension; I25.2 Old myocardial infarction; M19.90 Unspecified osteoarthritis, unspecified site; M06.9 Rheumatoid arthritis, unspecified; Z95.818 Presence of other cardiac implants and grafts; Z85.820 Personal history of malignant melanoma of skin; Z96.651 Presence of right artificial knee joint; Z96.641 Presence of right artificial hip joint; Z79.899 Other long term (current) drug therapy; Z88.1 Allergy status to other antibiotic agents; Z88.8 Allergy status to other drugs, medicaments and biological substances; Z88.0 Allergy status to penicillin; Z88.2 Allergy status to sulfonamides
CPT/HCPCS: 73502; 99284

== ENCOUNTER 2019-08-16 19:28 | Observation (INO) | payer MEDICARE, BC ==
[2019-08-16] MEDS ORDERED: SODIUM CHLORIDE 0.9% 500 ML 500 ML IV STA (20:02)
[2019-08-16] MEDS ORDERED: CLOPIDOGREL 75 MG TAB PO STA (20:02)
[2019-08-16] MEDS ORDERED: NITROGLYCERIN SL TABS 0.4 MG TAB SUBLINGUAL PRN ×2 (20:03→22:26)
[2019-08-16 20:17] LABS: Basophils # (A) 0.1 k/uL (0-0.2); Basophils % (A) 1 %; Eosinophils % (A) 0 %; HCT 36.3 % (34.0-46.0); HGB 11.2 gm/dL (11.4-16.0); Lymphocytes # (A) 1.8 k/uL (1.0-4.8); Lymphocytes % (A) 18 %; MCH 29.5 pg (25.0-35.0); MCHC 30.8 g/dL (31.0-37.0); MCV 95.6 fL (80.0-100.0); Mean Platelet Volume 6.2; Monocytes # (A) 0.5 k/uL (0-1.0); Monocytes % (A) 5 %; Neutrophils # (A) 7.7 k/uL (1.3-7.7); Neutrophils % (A) 75 %; Platelet Count 458 k/uL (150-450); RDW 13.8 % (11.5-15.5); WBC 10.2 k/uL (3.8-10.6)
--- NOTE | 2019-08-16 20:22 | ED ---
General Adult HPI - General Chief complaint: Chest Pain Stated complaint: Chest Pain Time Seen by Provider: 08/16/19 19:57 Source: patient Mode of arrival: ambulatory Limitations: no limitations - History of Present Illness Initial comments: Dictation was produced using [employer] dictation software. please excuse any grammatical, word or spelling errors. Chief Complaint: 74-year-old female. Past medical history of asthma, cancer fibromyalgia coronary artery disease presents with chest pain. History of Present Illness: He 4-year-old female presents with 2-3 hours of sudden onset chest pain. She states pain is stabbing radiation to the back. Patient states that she came into the emergency department she is concerned that it was her heart. Patient states that there is no associated diaphoresis. She did complain of some mild nausea. Patient did go to the right upper extremity. Patient also felt slightly weak in her bilateral lower extremities. Patient states she was getting an updraft when this happened. The ROS documented in this emergency department record has been reviewed and confirmed by me. Those systems with pertinent positive or negative responses have been documented in the HPI. All other systems are other negative and/or noncontributory. PHYSICAL EXAM: General Impression: Alert and oriented x3, not in acute distress HEENT: Normocephalic atraumatic, extra-ocular movements intact, pupils equal and reactive to light bilaterally, mucous membranes moist. Cardiovascular: Heart regular rate and rhythm, S1&S2 audible, no murmurs, rubs or gallops Chest: Lungs clear to auscultation bilaterally, no rhonchi, no wheeze, no rales Abdomen: Bowel sounds present, abdomen soft, non-tender, non-distended, no organomegaly Musculoskeletal: Pulses present and equal in all extremities, no peripheral edema Motor: no focal deficits noted Neurological: CN II-XII grossly intact, no focal motor or sensory deficits noted Skin: Intact with no visualized rashes Psych: Normal affect and mood ED course: 74-year-old febrile presents with atypical chest pain with typical features. Signs upon arrival shows blood pressure 205/95, rest vital signs within acceptable limits. Initial EKG did not show any signs of infarction. There is however was nonspecific changes. Repeat EKG was performed showed no dynamic changes.Laboratory evaluation obtained. CBC, coag panel, metabolic panel was obtained showing no acute processes. Liver enzymes are unremarkable. Enzymes negative. Chest x-ray shows no acute processes. CT of the chest shows no PE or aortic dissection. Patient reevaluated with improvement of chest symptoms. Patient given 300 mg of Plavix. Clinical presentation consistent with atypical chest pain with typical features. Given patient's risk factors with the patient admitted for surgery troponins and cardiology consultation. EKG interpretation: Ventricular rate 83, sinus rhythm,. 160, respiratory 20, QTC 474. EKG compared to 08/21/2018 showing no changes. There are T-wave inversions in aVL otherwise no other changes when compared to previous EKG. - Related Data Home Medications Medication Instructions Recorded Confirmed Estradiol [Estrace] 2 mg PO DAILY 05/14/14 08/16/19 Nadolol [Corgard] 40 mg PO DAILY 05/14/14 08/16/19 Pantoprazole Sodium [Protonix] 40 mg PO BID 05/14/14 08/16/19 Albuterol Inhaler [Ventolin Hfa 1 - 2 puff INHALATION RT-Q4H PRN 12/02/15 08/16/19 Inhaler] Cartilage/Collagen II/Hyaluron 1 tab PO DAILY 01/15/16 08/16/19 [Move Free Ultra Tablet] Lysine 1,000 mg PO DAILY 01/15/16 08/16/19 Acetaminophen [Tylenol Extra 1,000 mg PO BID 08/16/18 08/16/19 Strength] Albuterol Nebulized [Ventolin 2.5 mg INHALATION RT-BID 08/16/18 08/16/19 Nebulized] Ipratropium Nebulized [Atrovent 0.5 mg INHALATION RT-BID 11/13/18 08/16/19 Nebulized 0.2 MG/ML] Propylene Glycol [Systane Complete] 1 - 2 drops BOTH EYES TID PRN 08/16/19 08/16/19 amLODIPine [Norvasc] 2.5 mg PO DAILY 08/16/19 08/16/19 Allergies Allergy/AdvReac Type Severity Reaction Status Date / Time cephalexin monohydrate Allergy HIVES Verified 08/16/19 20:18 [From Keflex] diphenhydramine HCl Allergy SWELLING Verified 08/16/19 20:18 [From Benadryl] OF TONGUE, SOB Penicillins Allergy SWELLING, Verified 08/16/19 20:18 HIVES aspirin AdvReac EXCESS Verified 08/16/19 20:18 BLEEDING sulfamethoxazole AdvReac Nausea & Verified 08/16/19 20:18 [From Bactrim] Vomiting trimethoprim [From Bactrim] AdvReac Nausea & Verified 08/16/19 20:18 Vomiting Review of Systems ROS Statement: Those systems with pertinent positive or pertinent negative responses have been documented in the HPI. ROS Other: All systems not noted in ROS Statement are negative. 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, falls, vertigo if stands too quickly, melanoma removed from face, kidney stones, Last Myocardial Infarction Date:: 2012 History of Any Multi-Drug Resistant Organisms: None Reported Past Surgical History: Back Surgery, Heart Catheterization, Hysterectomy, Joint Replacement, Orthopedic Surgery Additional Past Surgical History / Comment(s): RODS & CAGES IN BACK, RT HIP REPLACEMENT, PARTIAL THYROIDECTOMY, RT KNEE REPLACEMENT Past Anesthesia/Blood Transfusion Reactions: Previous Problems w/ Anesthesia, Postoperative Nausea & Vomiting (PONV) Additional Past Anesthesia/Blood Transfusion Reaction / Comment(s): hard to wake up Past Psychological History: No Psychological Hx Reported Smoking Status: Never smoker Past Alcohol Use History: None Reported Past Drug Use History: None Reported - Past Family History Sister(s) Family Medical History: Cancer Brother(s) Family Medical History: Cancer Mother Family Medical History: Myocardial Infarction ([place]) Additional Family Medical History / Comment(s): Mother of a NE at the age of 76yrs. Father History Unknown: Yes General Exam Limitations: no limitations Course Vital Signs 08/16/19 08/16/19 08/16/19 19:34 20:30 21:30 Temperature 97.9 F Pulse Rate 84 73 63 Respiratory 22 18 17 Rate Blood Pressure 205/95 163/94 190/82 O2 Sat by Pulse 100 98 98 Oximetry Medical Decision Making - Lab Data Result diagrams: 08/16/19 19:50 08/16/19 19:50 Lab Results 08/16/19 08/16/19 08/16/19 Range/Units 19:50 19:50 19:50 WBC 10.2 (3.8-10.6) k/uL RBC 3.80 (3.80-5.40) m/uL Hgb 11.2 L (11.4-16.0) gm/dL Hct 36.3 (34.0-46.0) % MCV 95.6 (80.0-100.0) fL MCH 29.5 (25.0-35.0) pg MCHC 30.8 L (31.0-37.0) g/dL RDW 13.8 (11.5-15.5) % Plt Count 458 H (150-450) k/uL Neutrophils % 75 % Lymphocytes % 18 % Monocytes % 5 % Eosinophils % 0 % Basophils % 1 % Neutrophils # 7.7 (1.3-7.7) k/uL Lymphocytes # 1.8 (1.0-4.8) k/uL Monocytes # 0.5 (0-1.0) k/uL Eosinophils # 0.0 (0-0.7) k/uL Basophils # 0.1 (0-0.2) k/uL PT 10.0 (9.0-12.0) sec INR 0.9 (<1.2) APTT 23.2 (22.0-30.0) sec Sodium 139 (137-145) mmol/L Potassium 4.3 (3.5-5.1) mmol/L Chloride 107 (98-107) mmol/L Carbon Dioxide 20 L (22-30) mmol/L Anion Gap 12 mmol/L BUN 20 H (7-17) mg/dL Creatinine 0.71 (0.52-1.04) mg/dL Est GFR (CKD-EPI)AfAm >90 (>60 ml/min/1.73 sqM) Est GFR (CKD-EPI)NonAf 85 (>60 ml/min/1.73 sqM) Glucose 115 H (74-99) mg/dL Calcium 9.4 (8.4-10.2) mg/dL Magnesium 1.8 (1.6-2.3) mg/dL Total Bilirubin 0.2 (0.2-1.3) mg/dL Conjugated Bilirubin 0.0 (0.0-0.3) mg/dL Unconjugated Bilirubin 0.0 (0.0-1.1) mg/dL Delta Bilirubin 0.2 (0.0-0.2) mg/dL AST 19 (14-36) U/L ALT 11 (9-52) U/L Alkaline Phosphatase 60 (38-126) U/L Troponin I (0.000-0.034) ng/mL Total Protein 7.3 (6.3-8.2) g/dL Albumin 4.0 (3.5-5.0) g/dL Lipase 172 (23-300) U/L 08/16/19 Range/Units 19:50 WBC (3.8-10.6) k/uL RBC (3.80-5.40) m/uL Hgb (11.4-16.0) gm/dL Hct (34.0-46.0) % MCV (80.0-100.0) fL MCH (25.0-35.0) pg MCHC (31.0-37.0) g/dL RDW (11.5-15.5) % Plt Count (150-450) k/uL Neutrophils % % Lymphocytes % % Monocytes % % Eosinophils % % Basophils % % Neutrophils # (1.3-7.7) k/uL Lymphocytes # (1.0-4.8) k/uL Monocytes # (0-1.0) k/uL Eosinophils # (0-0.7) k/uL Basophils # (0-0.2) k/uL PT (9.0-12.0) sec INR (<1.2) APTT (22.0-30.0) sec Sodium (137-145) mmol/L Potassium (3.5-5.1) mmol/L Chloride (98-107) mmol/L Carbon Dioxide (22-30) mmol/L Anion Gap mmol/L BUN (7-17) mg/dL Creatinine (0.52-1.04) mg/dL Est GFR (CKD-EPI)AfAm (>60 ml/min/1.73 sqM) Est GFR (CKD-EPI)NonAf (>60 ml/min/1.73 sqM) Glucose (74-99) mg/dL Calcium (8.4-10.2) mg/dL Magnesium (1.6-2.3) mg/dL Total Bilirubin (0.2-1.3) mg/dL Conjugated Bilirubin (0.0-0.3) mg/dL Unconjugated Bilirubin (0.0-1.1) mg/dL Delta Bilirubin (0.0-0.2) mg/dL AST (14-36) U/L ALT (9-52) U/L Alkaline Phosphatase (38-126) U/L Troponin I <0.012 (0.000-0.034) ng/mL Total Protein (6.3-8.2) g/dL Albumin (3.5-5.0) g/dL Lipase (23-300) U/L Disposition Clinical Impression: Chest pain Disposition: ADMITTED IP TO THIS HOSP Condition: Fair Referrals: Lucie Tesfaye MD [Primary Care Provider] - 1-2 days Decision Time: 22:25
--- NOTE | 2019-08-16 20:29 | XR ---
EXAMINATION TYPE: XR chest 2V DATE OF EXAM: 08/16/2019 COMPARISON: 06/15/2019 HISTORY: Chest pain TECHNIQUE: Frontal and lateral views of the chest are obtained. FINDINGS: There is no heart failure nor confluent pneumonic infiltrate. Costophrenic angles are abby r. There are chest leads. Diaphragm is normal. Bony thorax is intact. IMPRESSION: No active cardiopulmonary disease. Normal heart. No change.
[2019-08-16 20:35] LABS: INR 0.9 (<1.2); Partial Thromboplastin Time 23.2 sec (22.0-30.0)
[2019-08-16 20:47] LABS: ALT 11 U/L (9-52); AST 19 U/L (14-36); African American GFR (CKD) >90 (>60 ml/min/1.73 sqM); Alkaline Phosphatase 60 U/L (38-126); Anion Gap 12 mmol/L; Bilirubin, Delta 0.2 mg/dL (0.0-0.2); Blood Urea Nitrogen 20 mg/dL (7-17); Calcium 9.4 mg/dL (8.4-10.2); Carbon Dioxide 20 mmol/L (22-30); Chloride 107 mmol/L (98-107); Glucose 115 mg/dL (74-99); Magnesium 1.8 mg/dL (1.6-2.3); Potassium 4.3 mmol/L (3.5-5.1); Sodium 139 mmol/L (137-145); Total Bilirubin 0.2 mg/dL (0.2-1.3); Total Protein 7.3 g/dL (6.3-8.2)
--- NOTE | 2019-08-16 22:21 | CT ---
EXAMINATION TYPE: CT angio thor/abd pel aorta DATE OF EXAM: 08/16/2019 COMPARISON: CT chest 06/19/2018 HISTORY: Chest pain CT DLP: 1485.1 mGycm. Automated Exposure Control for Dose Reduction was Utilized. CONTRAST: CT scan of the thorax, abdomen and pelvis is performed with IV Contrast, patient injected with 100 mL of Isovue 370. There are 3-D post processed images. FINDINGS: The lungs are clear of consolidation. There is no evidence of a pulmonary mass. Liver spleen pancreas gallbladder appear intact. Stomach is intact. There is 3 cm cortical cyst lateral right kidney. Ther e is 2 cm cortical cyst posterior left kidney. There is no hydronephrosis. There are bilateral multip le nonobstructing renal calculi. There is no retroperitoneal adenopathy. Bladder distends smoothly. T here is metal artifact from right hip prosthesis. Thoracic aorta is intact without evidence of aneurysm or dissection. Ascending aorta measures 3 cm. T here are no filling defects in the pulmonary arteries. There is patency of the celiac artery and superior mesenteric artery. There is bilateral patency of t he renal arteries. There is bilateral patency of the iliac and femoral arteries. I see no evidence of hemodynamic stenos is. There is no evidence of dissection. There is 2.5 cm cyst in the left adnexal region consistent wi th ovarian cyst. There is posterior multilevel fusion surgery in the lower lumbar spine. The bony tho rax is intact. There is no compression fracture. Bony pelvis is intact. IMPRESSION: There is some atherosclerotic vascular disease. No evidence of hemodynamic stenosis. No evidence of a rterial dissection. No evidence of pulmonary embolism. Cardiomegaly. Multiple nonobstructing renal calculi.
[2019-08-16] MEDS ORDERED: LABETALOL 5 MG/ML VIAL MDV IVP STA (22:24)
--- NOTE | 2019-08-16 23:29 | P.HPIM ---
History of Present Illness H&P Date: 08/16/19 The patient is a 74 yo F with a PMH of CAD, HTN and asthma who presented to the ED for sudden onset of R lower chest pain that started suddenly today at around 6 pm. The pain is at at the R lower ribs, sharp, radiating to the R arm, pleuritic, w/ no association w/ exertion. The patient notes she began having this pain while she was out shopping. She notes some SOB due to the pleuritic nature of the pain. Denied nausea, vomiting, diaphoresis, cough, or dizziness. She notes that this pain is different from what she previously had an TX many years ago. She denied fever, chills, leg pain, leg swelling, diarrhea, or abdominal pain. She underwent an extensive evaluation in the Ed w/ CT angiogram showing non-obstructing calculi. EKG revealed NSR @ 66 bpm w/ PVCs and LBBB and TWI in aVL. CXR was unremarkable. Laboratory evaluation revealed Troponin < 0.012, WBC 10.2, Hgb 11.2, BUN 20, and Cr 0.71. Review of Systems Pertinent positives and negatives as discussed in HPI, a complete review of systems was performed and all other systems are negative. 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, kidney stones, Last Myocardial Infarction Date:: 2012 History of Any Multi-Drug Resistant Organisms: None Reported Past Surgical History: Back Surgery, Heart Catheterization, Hysterectomy, Joint Replacement, Orthopedic Surgery Additional Past Surgical History / Comment(s): RODS & CAGES IN BACK, RT HIP REPLACEMENT, PARTIAL THYROIDECTOMY, RT KNEE REPLACEMENT Past Anesthesia/Blood Transfusion Reactions: Previous Problems w/ Anesthesia, Postoperative Nausea & Vomiting (PONV) Additional Past Anesthesia/Blood Transfusion Reaction / Comment(s): hard to wake up Past Psychological History: No Psychological Hx Reported Smoking Status: Never smoker Past Alcohol Use History: None Reported Past Drug Use History: None Reported - Past Family History Sister(s) Family Medical History: Cancer Brother(s) Family Medical History: Cancer Mother Family Medical History: Myocardial Infarction ([place]) Additional Family Medical History / Comment(s): Mother of a [place] at the age of 76yrs. Father History Unknown: Yes Medications and Allergies Home Medications Medication Instructions Recorded Confirmed Type Estradiol [Estrace] 2 mg PO DAILY 05/14/14 08/16/19 History Nadolol [Corgard] 40 mg PO DAILY 05/14/14 08/16/19 History Pantoprazole Sodium [Protonix] 40 mg PO BID 05/14/14 08/16/19 History Albuterol Inhaler [Ventolin Hfa 1 - 2 puff INHALATION RT-Q4H PRN 12/02/15 08/16/19 History Inhaler] Cartilage/Collagen II/Hyaluron 1 tab PO DAILY 01/15/16 08/16/19 History [Move Free Ultra Tablet] Lysine 1,000 mg PO DAILY 01/15/16 08/16/19 History Acetaminophen [Tylenol Extra 1,000 mg PO BID 08/16/18 08/16/19 History Strength] Albuterol Nebulized [Ventolin 2.5 mg INHALATION RT-BID 08/16/18 08/16/19 History Nebulized] Ipratropium Nebulized [Atrovent 0.5 mg INHALATION RT-BID 11/13/18 08/16/19 History Nebulized 0.2 MG/ML] Propylene Glycol [Systane Complete] 1 - 2 drops BOTH EYES TID PRN 08/16/19 08/16/19 History amLODIPine [Norvasc] 2.5 mg PO DAILY 08/16/19 08/16/19 History Allergies Allergy/AdvReac Type Severity Reaction Status Date / Time cephalexin monohydrate Allergy HIVES Verified 08/16/19 20:18 [From Keflex] diphenhydramine HCl Allergy SWELLING Verified 08/16/19 20:18 [From Benadryl] OF TONGUE, SOB Penicillins Allergy SWELLING, Verified 08/16/19 20:18 HIVES aspirin AdvReac EXCESS Verified 08/16/19 20:18 BLEEDING sulfamethoxazole AdvReac Nausea & Verified 08/16/19 20:18 [From Bactrim] Vomiting trimethoprim [From Bactrim] AdvReac Nausea & Verified 08/16/19 20:18 Vomiting Physical Exam Vitals: Vital Signs Temp Pulse Resp BP Pulse Ox 08/16/19 22:30 68 24 196/88 99 08/16/19 22:00 62 18 196/83 99 08/16/19 21:30 63 17 190/82 98 08/16/19 20:30 73 18 163/94 98 08/16/19 19:34 97.9 F 84 22 205/95 100 Intake and Output 08/16/19 08/16/19 08/17/19 14:59 22:59 06:59 Other: Weight 70.307 kg General: non toxic, no distress, appears at stated age, normal weight Derm: no unusual rashes/lesions no unusual ecchymoses, warm, dry Head: atraumatic, normocephalic, symmetric Eyes: EOMI, no lid lag, anicteric sclera, pupils equal round reactive to light ENT: Nose and ears atraumatic, no thrush, no pharyngeal erythema Neck: No thyromegaly, no cervical lymphadenopathy, trachea midline, supple Mouth: no lip lesion, mucus membranes moist Cardiovascular: S1S2 reg, no murmur, positive posterior tibial pulse bilateral, no edema, capillary refill less than 2 seconds Lungs: CTA bilateral, no rhonchi, no rales , no accessory muscle use Abdominal: soft, nontender to palpation, no guarding, no appreciable organomegaly, normal bowel sounds Ext: no gross muscle atrophy, muscle strength 5 out of 5 in all 4 extremities grossly, no contractures, Neuro: CN II-XI grossly intact, light touch intact all 4 extremities, finger to nose within normal limits, Psych: Alert, oriented, appropriate affect Results CBC & Chem 7: 08/16/19 19:50 08/16/19 19:50 Labs: Abnormal Lab Results - Last 24 Hours (Table) 08/16/19 08/16/19 Range/Units 19:50 19:50 Hgb 11.2 L (11.4-16.0) gm/dL MCHC 30.8 L (31.0-37.0) g/dL Plt Count 458 H (150-450) k/uL Carbon Dioxide 20 L (22-30) mmol/L BUN 20 H (7-17) mg/dL Glucose 115 H (74-99) mg/dL Assessment and Plan Plan: Chest pain, r/o ACS -Cardiology consult -Cardiac monitoring -Trend troponin and EKG -C/w plavix (allergic to Aspirin) Poorly controlled HTN -Received Labotalol IV in ED -Start HCTZ -C/w Novasc and Nadolol home doses Asthma -C/w Albuterol prn DVT prophylaxis -Lovenox The patient is admitted with an anticipated less than 2 midnight stay for evaluation of chest pain CODE STATUS: Full Code Discussed with: Patient Anticipated discharge date: 1-[address]: Home A total of 35 minutes was spent on the care of this complex patient more than 50% of the time was spent in counseling and care coordination.
[2019-08-16 23:49] VITALS: BMI 25.0
[2019-08-17] MEDS ORDERED: BENZONATATE 100 MG CAP PO STA (02:00)
[2019-08-17] MEDS: HYDROCHLOROTHIAZIDE 25 MG TAB PO SCH ×2 (02:14→10:05)
[2019-08-17] MEDS ORDERED: ALBUTEROL NEBULIZED 2.5 MG/3 ML INHALATION STA (02:31)
[2019-08-17 04:16] LABS: Cholesterol 194 mg/dL (<200); HDL Cholesterol 98 mg/dL (40-60); LDL Cholesterol,Calculated 58 mg/dL (0-99); Triglycerides 191 mg/dL (<150)
[2019-08-17] MEDS: ALBUTEROL NEBULIZED 2.5 MG/3 ML INHALATION SCH ×2 (07:28→21:15)
[2019-08-17] MEDS ORDERED: ENOXAPARIN 40 MG/0.4 ML SYRINGE SQ SCH (09:00)
[2019-08-17] MEDS ORDERED: amLODIPine 5 MG TAB PO SCH (09:00)
[2019-08-17] MEDS ORDERED: CLOPIDOGREL 75 MG TAB PO SCH (09:00)
--- NOTE | 2019-08-17 09:27 | US ---
EXAMINATION TYPE: US gallbladder DATE OF EXAM: 08/17/2019 COMPARISON: CTA yesterday. CLINICAL HISTORY: pain. RUQ pain. EXAM MEASUREMENTS: Liver Length: 15.3 cm Gallbladder Wall: .3 cm CBD: .6 cm Right Kidney: 11.7 x 3.9 x 4.3 cm Pancreas: Tail obscured by overlying bowel gas Liver: wnl Gallbladder: wnl Evidence for sonographic Dumont's sign: No CBD: wnl Right Kidney: Anechoic area mid pole measuring 2.7 x 2.3 x 2.5 cm. Visualized pancreas is unremarkable. Visualized liver within normal limits. Right kidney shows no leonel ss hydronephrosis. Simple appearing nearly 3 cm cyst correlates with recent CT. Lower pole calculus s een better on CT versus ultrasound images saved. Gallbladder identified without shadowing mobile gall stones IMPRESSION: No shadowing mobile gallstones also some evidence for acute cholecystitis. Note is made o f bilateral nephrolithiasis on recent CT with largest calculus lower pole level right kidney.
[2019-08-17] MEDS: PANTOPRAZOLE 40 MG TABLET PO SCH ×2 (10:04→19:45)
[2019-08-17] MEDS: amLODIPine 5 MG TAB PO SCH (10:04)
--- NOTE | 2019-08-17 10:41 | P.CRDCN ---
History of Present Illness History of present illness: This is a pleasant 74-year-old female past medical history significant for hypertension, fibromyalgia, asthma and GERD. She follows in the office with Dr. Castorena. We have been asked to see her in consultation secondary to chest pain. She states yesterday while sitting down she had an acute onset of pain under the right breast and right upper quadrant of the abdomen. There was no radiation to the arm, back, neck or jaw. She denies associated shortness of breath, nausea, vomiting, diaphoresis, palpitations, or dizziness. She continues to have significant pain in the right upper quadrant that is quite tender on light palpation. On arrival to emergency department blood pressure was 205/95 with a heart rate of 84. She was given IV labetalol and hydrochlorothiazide was added to her daily regimen. Repeat this morning 152/79. EKG reveals left bundle branch block which is chronic. Chest x-ray is negative for an acute cardiopulmonary process. CT of the thoracic aorta is negative for pulmonary embolism or aortic dissection. Laboratory data reviewed, WBC 10.2, hemoglobin 11.2, platelets 458, sodium 139, potassium 4.3, creatinine 0.71, magnesium 1.8, cardiac enzymes negative 3, LDL 58. Current daily cardiac medications include nadolol 40 mg daily and Norvasc 2.5 mg daily. She underwent cardiac catheterization in 2013 revealing minimal nonobstructive coronary artery disease. Most recent stress test performed in August 2018 the office with a Lexiscan stress test that was negative for stress-induced ischemia. At the time of my exam: CONSTITUTIONAL: Denies fever. Denies chills. EYES: Denies blurred vision. Denies vision changes. Denies eye pain. EARS, NOSE, MOUTH & THROAT: Denies headache. Denies sore throat. Denies ear pain. CARDIOVASCULAR: Denies chest pain. Denies shortness of breath. Denies orthopnea. Denies PND. Denies palpitations. RESPIRATORY: Denies cough. GASTROINTESTINAL: Denies abdominal pain. Denies diarrhea. Denies constipation. Denies nausea. Denies vomiting. MUSCULOSKELETAL: Denies myalgias. INTEGUMENTARY: Denies pruitis. Denies rash. NEUROLOGIC: Denies numbness. Denies tingling. Denies weakness. PSYCHIATRIC: Denies anxiety. Denies depression. ENDOCRINE: Denies fatigue. Denies weight change. Denies polydipsia. Denies polyurina. GENITOURINARY: Denies burning, hematuria or urgency with micturation. HEMATOLOGIC: Denies history of anemia. Denies bleeding. GENERAL: This is a 74-year-old female in no apparent distress at the time of my examination. HEENT: Head is atraumatic, normocephalic. Pupils are equal, round. Sclerae a nicteric. Conjunctivae are clear. Mucous membranes of the mouth are moist. Neck is supple. There is no jugular venous distention. No carotid bruit is heard. LUNGS: Clear to auscultation no wheezes, rales or rhonchi. No chest wall tenderness is noted on palpation or with deep breathing. HEART: Regular rate and rhythm without murmurs, rubs or gallops. S1 and S2 heard. ABDOMEN: Soft, significant right upper quadrant tenderness with light palpation. Bowel sounds are heard. No organomegaly noted. EXTREMITIES: No evidence of peripheral edema and no calf tenderness noted. VASCULAR: Radial and dorsalis pedis pulses palpated, no evidence of clubbing. NEUROLOGIC: Patient is awake, alert and oriented x3. ASSESSMENT Right upper quadrant pain and tenderness Left bundle branch block, chronic Hypertensive emergency Fibromyalgia Gastroesophageal reflux disease PLAN An acute coronary event has been ruled out. Obtain ultrasound of the gallbladder. Ongoing medical management per primary care team for abdominal pain. Increase amlodipine to 5 mg daily. Repeat 2D echocardiogram and doppler study to assess cardiac structure and function. Discontinue plavix. Follow up with Dr. Castorena upon discharge. Thank you kindly for this consultation. Nurse Practitioner note has been reviewed, I agree with a documented findings and plan of care. Patient was seen and examined. 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, kidney stones, Last Myocardial Infarction Date:: 2012 History of Any Multi-Drug Resistant Organisms: None Reported Past Surgical History: Back Surgery, Heart Catheterization, Hysterectomy, Joint Replacement, Orthopedic Surgery Additional Past Surgical History / Comment(s): RODS & CAGES IN BACK, RT HIP REPLACEMENT, PARTIAL THYROIDECTOMY, RT KNEE REPLACEMENT Past Anesthesia/Blood Transfusion Reactions: Previous Problems w/ Anesthesia, Postoperative Nausea & Vomiting (PONV) Additional Past Anesthesia/Blood Transfusion Reaction / Comment(s): hard to wake up Past Psychological History: No Psychological Hx Reported Smoking Status: Never smoker Past Alcohol Use History: None Reported Past Drug Use History: None Reported - Past Family History Sister(s) Family Medical History: Cancer Brother(s) Family Medical History: Cancer Mother Family Medical History: Myocardial Infarction (LA) Additional Family Medical History / Comment(s): Mother of a LA at the age of 76yrs. Father History Unknown: Yes Medications and Allergies Home Medications Medication Instructions Recorded Confirmed Type Estradiol [Estrace] 2 mg PO DAILY 05/14/14 08/16/19 History Nadolol [Corgard] 40 mg PO DAILY 05/14/14 08/16/19 History Pantoprazole Sodium [Protonix] 40 mg PO BID 05/14/14 08/16/19 History Albuterol Inhaler [Ventolin Hfa 1 - 2 puff INHALATION RT-Q4H PRN 12/02/15 08/16/19 History Inhaler] Cartilage/Collagen II/Hyaluron 1 tab PO DAILY 01/15/16 08/16/19 History [Move Free Ultra Tablet] Lysine 1,000 mg PO DAILY 01/15/16 08/16/19 History Acetaminophen [Tylenol Extra 1,000 mg PO BID 08/16/18 08/16/19 History Strength] Albuterol Nebulized [Ventolin 2.5 mg INHALATION RT-BID 08/16/18 08/16/19 History Nebulized] Ipratropium Nebulized [Atrovent 0.5 mg INHALATION RT-BID 11/13/18 08/16/19 History Nebulized 0.2 MG/ML] Propylene Glycol [Systane Complete] 1 - 2 drops BOTH EYES TID PRN 08/16/19 08/16/19 History amLODIPine [Norvasc] 2.5 mg PO DAILY 08/16/19 08/16/19 History Allergies Allergy/AdvReac Type Severity Reaction Status Date / Time cephalexin monohydrate Allergy HIVES Verified 08/16/19 20:18 [From Keflex] diphenhydramine HCl Allergy SWELLING Verified 08/16/19 20:18 [From Benadryl] OF TONGUE, SOB Penicillins Allergy SWELLING, Verified 08/16/19 20:18 HIVES aspirin AdvReac EXCESS Verified 08/16/19 20:18 BLEEDING sulfamethoxazole AdvReac Nausea & Verified 08/16/19 20:18 [From Bactrim] Vomiting trimethoprim [From Bactrim] AdvReac Nausea & Verified 08/16/19 20:18 Vomiting Physical Exam Vitals: Vital Signs Temp Pulse Pulse Pulse Resp BP BP 08/17/19 08:00 97.6 F 67 16 152/79 08/17/19 07:39 76 08/17/19 07:28 80 08/17/19 03:53 16 08/17/19 03:52 97.9 F 68 16 149/71 08/17/19 03:10 76 08/17/19 03:03 76 08/17/19 01:44 72 16 187/79 08/16/19 23:56 76 20 08/16/19 23:47 97.9 F 76 190/96 08/16/19 23:20 68 20 168/94 08/16/19 22:30 68 24 196/88 08/16/19 22:00 62 18 196/83 08/16/19 21:30 63 17 190/82 08/16/19 20:30 73 18 163/94 08/16/19 19:34 97.9 F 84 22 205/95 Pulse Ox 08/17/19 08:00 98 08/17/19 07:39 08/17/19 07:28 08/17/19 03:53 08/17/19 03:52 08/17/19 03:10 08/17/19 03:03 100 08/17/19 01:44 08/16/19 23:56 08/16/19 23:47 99 08/16/19 23:20 98 08/16/19 22:30 99 08/16/19 22:00 99 08/16/19 21:30 98 08/16/19 20:30 98 08/16/19 19:34 100 Intake and Output 08/16/19 08/17/19 08/17/19 22:59 06:59 14:59 Intake Total 480 Balance 480 Intake: Oral 480 Other: Voiding Method Toilet Weight 70.307 kg Results 08/16/19 19:50 08/16/19 19:50 Cardiac Enzymes 08/16/19 08/16/19 08/17/19 Range/Units 19:50 19:50 02:04 AST 19 (14-36) U/L Troponin I <0.012 0.021 (0.000-0.034) ng/mL 08/17/19 Range/Units 08:41 AST (14-36) U/L Troponin I <0.012 (0.000-0.034) ng/mL Coagulation 08/16/19 Range/Units 19:50 PT 10.0 (9.0-12.0) sec APTT 23.2 (22.0-30.0) sec Lipids 08/16/19 Range/Units 19:50 Triglycerides 191 H (<150) mg/dL Cholesterol 194 (<200) mg/dL HDL Cholesterol 98 H (40-60) mg/dL CBC 08/16/19 Range/Units 19:50 WBC 10.2 (3.8-10.6) k/uL RBC 3.80 (3.80-5.40) m/uL Hgb 11.2 L (11.4-16.0) gm/dL Hct 36.3 (34.0-46.0) % Plt Count 458 H (150-450) k/uL Comprehensive Metabolic Panel 08/16/19 Range/Units 19:50 Sodium 139 (137-145) mmol/L Potassium 4.3 (3.5-5.1) mmol/L Chloride 107 (98-107) mmol/L Carbon Dioxide 20 L (22-30) mmol/L BUN 20 H (7-17) mg/dL Creatinine 0.71 (0.52-1.04) mg/dL Glucose 115 H (74-99) mg/dL Calcium 9.4 (8.4-10.2) mg/dL Unconjugated Bilirubin 0.0 (0.0-1.1) mg/dL AST 19 (14-36) U/L ALT 11 (9-52) U/L Alkaline Phosphatase 60 (38-126) U/L Total Protein 7.3 (6.3-8.2) g/dL Albumin 4.0 (3.5-5.0) g/dL Current Medications Generic Name Dose Route Start Last Admin Trade Name Freq PRN Reason Stop Dose Admin Albuterol Sulfate 2.5 mg 08/17/19 08:00 08/17/19 07:28 Ventolin Nebulized INHALATION 2.5 mg RT-BID ASHER Administration Amlodipine Besylate 5 mg 08/17/19 09:00 08/17/19 10:04 Norvasc PO 5 mg DAILY ASHER Administration Enoxaparin Sodium 40 mg 08/17/19 09:00 08/17/19 10:04 Lovenox SQ 40 mg DAILY ASHER Administration Hydrochlorothiazide 50 mg 08/16/19 23:30 08/17/19 10:05 Hydrodiuril PO 50 mg DAILY ASHER Administration Nitroglycerin 0.4 mg 08/16/19 22:26 Nitrostat SUBLINGUAL Q5M PRN Chest Pain Pantoprazole Sodium 40 mg 08/17/19 09:00 08/17/19 10:04 Protonix PO 40 mg BID ASHER Administration Intake and Output 08/16/19 08/17/19 08/17/19 22:59 06:59 14:59 Intake Total 480 Balance 480 Intake: Oral 480 Other: Voiding Method Toilet Weight 70.307 kg 08/16/19 19:50 08/16/19 19:50
[2019-08-17] MEDS ORDERED: methylPREDNISolone SOD SUCCI 125 MG/2 ML VIAL IV STA (11:18)
[2019-08-17] MEDS: FAMOTIDINE 20 MG/2 ML VIAL IV SCH (11:29)
[2019-08-17 11:43] VITALS: RESP 18
[2019-08-17] MEDS ORDERED: HYDROCORTISONE 1% CREAM 30 GM TUBE TOPICAL PRN (13:51)
[2019-08-17] MEDS ORDERED: ALBUTEROL NEBULIZED 2.5 MG/3 ML INHALATION PRN (13:52)
[2019-08-17] MEDS: BENZONATATE 100 MG CAP PO PRN ×2 (17:52→23:06)
--- NOTE | 2019-08-17 18:48 | P.PN ---
Subjective Progress Note Date: 08/17/19 (Delayed charting seen at 1330) Principal diagnosis: Abdominal pain Patient is a 74-year-old female with past medical history of coronary artery disease, hypertension, asthma, and fibromyalgia who presented to the hospital with sudden onset right upper quadrant pain. There is concern for possible anginal equivalent. In the ER she underwent a CT angiogram which showe d nonobstructing renal calculi but was otherwise unremarkable. Initial troponin negative and EKG with left bundle branch block. Chest x-ray unremarkable. Admitted for further cardiac rule out. Seen by cardiology not feel this is cardiac origin. Abdominal ultrasound ordered which showed possible acute cholecystitis however patient's liver enzymes within normal limits and no elevated total bilirubin. Also not having classical signs/symptoms. Patient received her morning pills a dose of Lovenox. 30 minutes later she noticed erythema and hives to her bilateral upper extremities. He received a dose of Solu-Medrol and Pepcid. Patient seen and examined at bedside. She continues to still have right upper quadrant pain only to palpation, not without palpation. She does not report any nausea or vomiting. She states that her pain was sharp and sudden and only last a few minutes and then was relieved. She feels back to normal other than her rash. She reports that she has multiple ALLERGIES. Rash to bilateral upper extremities not including hands. She reports it is itchy but also somewhat painful. Objective - Vital Signs Vital signs: Vital Signs Temp 97.6 F 08/17/19 15:53 Pulse 76 08/17/19 15:53 Resp 18 08/17/19 16:00 BP 135/74 08/17/19 15:53 Pulse Ox 97 08/17/19 15:53 Intake & Output 08/16/19 08/17/19 08/17/19 18:59 06:59 18:59 Intake Total 480 300 Balance 480 300 Weight 70.307 kg Intake: Oral 480 300 Other: Voiding Method Toilet # Voids 1 - Exam General: non toxic, no distress, appears at stated age Derm: Patchy erythema and bilateral upper extremities, left upper extremity there are welts from elbow to wrist. warm, dry Head: atraumatic, normocephalic, symmetric Eyes: EOMI, no lid lag, anicteric sclera Mouth: no lip lesion, mucus membranes moist Cardiovascular: S1S2 reg, no murmur, positive posterior tibial pulse bilateral, Lungs: CTA bilateral, no rhonchi, no rales , no accessory muscle use Abdominal: soft, tender to palpation right upper quadrant, no guarding, no appreciable organomegaly Ext: no gross muscle atrophy, no edema, no contractures Neuro: CN II-XI grossly intact, no focal neuro deficits Psych: Alert, oriented, appropriate affect - Labs CBC & Chem 7: 08/16/19 19:50 08/16/19 19:50 Labs: Abnormal Lab Results - Last 24 Hours (Table) 08/16/19 08/16/19 08/16/19 Range/Units 19:50 19:50 19:50 Hgb 11.2 L (11.4-16.0) gm/dL MCHC 30.8 L (31.0-37.0) g/dL Plt Count 458 H (150-450) k/uL Carbon Dioxide 20 L (22-30) mmol/L BUN 20 H (7-17) mg/dL Glucose 115 H (74-99) mg/dL Triglycerides 191 H (<150) mg/dL HDL Cholesterol 98 H (40-60) mg/dL Assessment and Plan Assessment: Right upper quadrant pain -Cardiac event ruled out per cardiology, echocardiogram pending -Abdominal ultrasound reports possible acute cholecystitis without any evidence of gallstones or inflammation within the gallbladder wall -Repeat liver enzymes and bilirubin in a.m. -Follow clinically if continues to have right upper quadrant pain consider general surgery evaluation - on H2 and PPI Dermatitis, suspect acute ALLERGIC reaction -Status post IV steroids 1 -Topical steroids -Continue to monitor for improvement Chronic cough -Tessalalex Weldon -Bronchodilators -Continue outpatient follow-up with Dr. Bajwa Hypertension, urgency on arrival -Continue with Norvasc, hydrochlorothiazide, received 1 dose of labetalol -Follow blood pressures - resume BB DVT prophylaxis:SCDs Discussed with: Patient, nursing Anticipated discharge:in AM Anticipated discharge place: home A total of 25 minutes was spent on the care of this complex patient more than 50% of the time was spent in counseling and care coordination.
--- NOTE | 2019-08-17 19:01 | ECHOF ---
Referral Reason:cp, htn, sob MEASUREMENTS -------- HEIGHT: 167.6 cm WEIGHT: 70.3 kg BP: 179/78 RVIDd: 3.2 cm (< 3.3) IVSd: 1.1 cm (0.6 - 1.1) LVIDd: 4.0 cm (3.9 - 5.3) LVPWd: 1.1 cm (0.6 - 1.1) IVSs: 1.4 cm LVIDs: 2.9 cm LVPWs: 1.7 cm LA Diam: 3.5 cm (2.7 - 3.8) LAESV Index (A-L): 35.13 ml/m Ao Diam: 2.9 cm (2.0 - 3.7) AV Cusp: 2.2 cm (1.5 - 2.6) MV EXCURSION: 15.488 mm (> 18.000) MV EF SLOPE: 61 mm/s (70 - 150) EPSS: 0.7 cm MV E Albert: 0.97 m/s MV DecT: 225 ms MV A Albert: 0.78 m/s MV E/A Ratio: 1.24 RAP: 5.00 mmHg RVSP: 42.41 mmHg TAPSE: 27.61 mm FINDINGS -------- Sinus rhythm. This was a technically good study. The left ventricular size is normal. There is borderline concentric left ventricular hypertrophy. Overall left ventricular systolic function is normal with, an EF between 60 - 65 %. The diastolic filling pattern indicates impaired relaxation 15.14. The right ventricle is normal in size. LA is moderately dilated 34-39 ml/m2 The right atrium is normal in size. Interatrial and interventricular septum intact. The aortic valve is trileaflet and appears structurally normal. Mild mitral regurgitation is present. Mild tricuspid regurgitation present. There is mild pulmonary hypertension. The right ventricular systolic pressure, as measured by Doppler, is 42.41mmHg. Trace/mild (physiologic) pulmonic regurgitation. The aortic root size is normal. Normal inferior vena cava with normal inspiratory collapse consistent with estimated right atrial pre ssure of 5 mmHg. There is no pericardial effusion. CONCLUSIONS -------- 1. Sinus rhythm. 2. This was a technically good study. 3. The left ventricular size is normal. 4. There is borderline concentric left ventricular hypertrophy. 5. Overall left ventricular systolic function is normal with, an EF between 60 - 65 %. 6. The diastolic filling pattern indicates impaired relaxation 15.14.. 7. The right ventricle is normal in size. 8. LA is moderately dilated 34-39 ml/m2 9. The right atrium is normal in size. 10. Interatrial and interventricular septum intact. 11. The aortic valve is trileaflet and appears structurally normal. 12. Mild mitral regurgitation is present. 13. Mild tricuspid regurgitation present. 14. There is mild pulmonary hypertension. 15. The right ventricular systolic pressure, as measured by Doppler, is 42.41mmHg. 16. Trace/mild (physiologic) pulmonic regurgitation. 17. The aortic root size is normal. 18. Normal inferior vena cava with normal inspiratory collapse consistent with estimated right atrial pressure of 5 mmHg. 19. There is no pericardial effusion. PEDIATRIC RN: Marisa Jade RDCS
[2019-08-18 05:55] LABS: HCT 36.2 % (34.0-46.0); HGB 11.7 gm/dL (11.4-16.0); Hypochromasia Slight; MCH 31.5 pg (25.0-35.0); MCHC 32.3 g/dL (31.0-37.0); MCV 97.6 fL (80.0-100.0); Mean Platelet Volume 5.5; Platelet Count 413 k/uL (150-450); RBC 3.71 m/uL (3.80-5.40); RDW 13.7 % (11.5-15.5); WBC 11.2 k/uL (3.8-10.6)
[2019-08-18 06:08] LABS: ALT 15 U/L (9-52); AST 18 U/L (14-36); African American GFR (CKD) >90 (>60 ml/min/1.73 sqM); Albumin 3.8 g/dL (3.5-5.0); Alkaline Phosphatase 52 U/L (38-126); Anion Gap 8 mmol/L; Blood Urea Nitrogen 20 mg/dL (7-17); Calcium 9.5 mg/dL (8.4-10.2); Carbon Dioxide 27 mmol/L (22-30); Chloride 99 mmol/L (98-107); Glucose 104 mg/dL (74-99); Potassium 3.7 mmol/L (3.5-5.1); Sodium 134 mmol/L (137-145); Total Bilirubin 0.3 mg/dL (0.2-1.3); Total Protein 6.9 g/dL (6.3-8.2)
[2019-08-18 07:18] VITALS: BP 134/77; TEMP 97.8
[2019-08-18] MEDS: ALBUTEROL NEBULIZED 2.5 MG/3 ML INHALATION SCH (07:24)
[2019-08-18] MEDS: HYDROCHLOROTHIAZIDE 25 MG TAB PO SCH (08:25)
[2019-08-18] MEDS: PANTOPRAZOLE 40 MG TABLET PO SCH (08:26)
[2019-08-18] MEDS: amLODIPine 5 MG TAB PO SCH (08:26)
[2019-08-18] MEDS: FAMOTIDINE 20 MG/2 ML VIAL IV SCH (08:26)
[2019-08-18 08:48] VITALS: PULSE 70
--- NOTE | 2019-08-18 08:59 | P.DS ---
Providers Date of admission: 08/16/19 22:26 Expected date of discharge: 08/18/19 Attending physician: Hollis Marley MD Consults: 08/16/19 22:26 Consult Physician Urgent Consulting Provider: Hugh Maurer Consult Reason/Comments: chest pain Do you want consulting provider notified?: Yes Primary care physician: Lucie Tesfaye Hospital Course: Discharge Diagnosis: Upper abdominal pain, suspect etiology of costochondritis secondary to chronic cough. Also possible acid reflux. ALLERGIC dermatitis. Possible reaction to Lovenox Chronic Cough Hypertensive urgency Hospital Course: Patient is a 74-year-old female with past medical history of coronary artery disease, hypertension, asthma, and fibromyalgia who presented to the hospital with sudden onset right upper quadrant pain. There is concern for possible anginal equivalent. In the ER she underwent a CT angiogram which showed nonobstructing renal calculi but was otherwise unremarkable. Initial troponin negative and EKG with left bundle branch block. Chest x-ray unremarkable. Hypertensive in the emergency department with SBP >200. Admitted for further cardiac rule out. Seen by cardiology who did not feel this is cardiac origin Norvasc increased, HCTZ added. ECHO showed EF 60-65% with some impaired diastolic relaxation Abdominal ultrasound ordered which showed possible acute cholecystitis however patient's liver enzymes within normal limits and no elevated total bilirubin, no fevers. Also not having classical signs/symptoms. Developed hives after receiving morning medication, only new was lovenox. Given 1 time dose of solumedrol, IV pepcid (allergic to benadryl), and started on hydrocortisone cream. Monirotied overnight with drastic improvement in rash. Improvement in upper abdominal pain, but not completely resolved. Blood pressures improved. Determined stable for discharge. Will follow with Dr. Bah in 7-10 days if pain not improved for possible HIDA/ further gallbladder eval. Seeing Dr. Bajwa on 08/22 for chronic cough. Follow with Dr. Senior in 1-2 days. Patient seen and examined at bedside. Pain improved, tolerting diet, no nausea, no vomiting, rash improving. Vital signs reviewed and stable. General: non toxic, no distress, appears at stated age Derm: erythema b/l upper arms, hives resolved, warm, dry Head: atraumatic, normocephalic, symmetric Eyes: EOMI, no lid lag, anicteric sclera Mouth: no lip lesion, mucus membranes moist Cardiovascular: S1S2 reg, no murmur, positive posterior tibial pulse bilateral, Lungs: CTA bilateral, no rhonchi, no rales , no accessory muscle use Abdominal: soft, nontender to palpation, no guarding, no appreciable organomegaly Ext: no gross muscle atrophy, no edema, no contractures Neuro: CN II-XI grossly intact, no focal neuro deficits Psych: Alert, oriented, appropriate affect A total of 25 minutes of time were spent preparing this complex discharge summary . Patient Condition at Discharge: Stable Plan - Discharge Summary Discharge Rx Participant: No New Discharge Prescriptions: New Hydrocortisone Cream [Hydrocortisone 1% Cream] 1 applic TOPICAL BID PRN applic PRN Reason: Skin Irritation Hydrochlorothiazide [Hydrodiuril] 50 mg PO DAILY #30 tab amLODIPine [Norvasc] 5 mg PO DAILY #30 tab Famotidine [Pepcid] 40 mg PO HS #30 tab Benzonatate [Tessalon Perles] 100 mg PO TID PRN #90 cap PRN Reason: Cough Continue Pantoprazole Sodium [Protonix] 40 mg PO BID Nadolol [Corgard] 40 mg PO DAILY Estradiol [Estrace] 2 mg PO DAILY Albuterol Inhaler [Ventolin Hfa Inhaler] 1 - 2 puff INHALATION RT-Q4H PRN PRN Reason: Shortness Of Breath Cartilage/Collagen II/Hyaluron [Move Free Ultra Tablet] 1 tab PO DAILY Lysine 1,000 mg PO DAILY Acetaminophen [Tylenol Extra Strength] 1,000 mg PO BID Albuterol Nebulized [Ventolin Nebulized] 2.5 mg INHALATION RT-BID Ipratropium Nebulized [Atrovent Nebulized 0.2 MG/ML] 0.5 mg INHALATION RT-BID Propylene Glycol [Systane Complete] 1 - 2 drops BOTH EYES TID PRN PRN Reason: Dry Eye(S) Discontinued amLODIPine [Norvasc] 2.5 mg PO DAILY Discharge Medication List Estradiol [Estrace] 2 mg PO DAILY 05/14/14 [History] Nadolol [Corgard] 40 mg PO DAILY 05/14/14 [History] Pantoprazole Sodium [Protonix] 40 mg PO BID 05/14/14 [History] Albuterol Inhaler [Ventolin Hfa Inhaler] 1 - 2 puff INHALATION RT-Q4H PRN 12/02/15 [History] Cartilage/Collagen II/Hyaluron [Move Free Ultra Tablet] 1 tab PO DAILY 01/15/16 [History] Lysine 1,000 mg PO DAILY 01/15/16 [History] Acetaminophen [Tylenol Extra Strength] 1,000 mg PO BID 08/16/18 [History] Albuterol Nebulized [Ventolin Nebulized] 2.5 mg INHALATION RT-BID 08/16/18 [History] Ipratropium Nebulized [Atrovent Nebulized 0.2 MG/ML] 0.5 mg INHALATION RT-BID 11/13/18 [History] Propylene Glycol [Systane Complete] 1 - 2 drops BOTH EYES TID PRN 08/16/19 [History] Benzonatate [Tessalon Perles] 100 mg PO TID PRN #90 cap 08/18/19 [Rx] Famotidine [Pepcid] 40 mg PO HS #30 tab 08/18/19 [Rx] Hydrochlorothiazide [Hydrodiuril] 50 mg PO DAILY #30 tab 08/18/19 [Rx] Hydrocortisone Cream [Hydrocortisone 1% Cream] 1 applic TOPICAL BID PRN applic 08/18/19 [Rx] amLODIPine [Norvasc] 5 mg PO DAILY #30 tab 08/18/19 [Rx] Follow up Appointment(s)/Referral(s): Sergey Castorena MD [STAFF PHYSICIAN] - 2 Weeks Lucie Tesfaye MD [Primary Care Provider] - 1-2 days Sukhjinder Bah MD [STAFF PHYSICIAN] - As Needed (If pain not resolved in 7-10 days) Activity/Diet/Wound Care/Special Instructions: Activity: as tolerated Diet: Heart Healthy Special Instructions: May use hydrocortisone cream up to 4 times daily if needed. Return to ER if pain worsens, fevers, chills, or vomiting.
[2019-08-18] MEDS ORDERED: NADOLOL 20 MG TAB PO SCH (09:00)
== END 2019-08-18 09:52 | disposition home or self-care (01) ==
LOC: EC 19:28 → 1SOBS 22:26
PROVIDERS: ADMIT Internal Medicine; ATTEND Internal Medicine
DX: R10.11 Right upper quadrant pain (principal); R07.89 Other chest pain; R11.0 Nausea; R05 Cough; R53.1 Weakness; L23.9 Allergic contact dermatitis, unspecified cause; I16.0 Hypertensive urgency; I16.1 Hypertensive emergency; I25.10 Atherosclerotic heart disease of native coronary artery without angina pectoris; I10 Essential (primary) hypertension; J45.909 Unspecified asthma, uncomplicated; M79.7 Fibromyalgia; N20.0 Calculus of kidney; I25.2 Old myocardial infarction; I44.7 Left bundle-branch block, unspecified; K21.9 Gastro-esophageal reflux disease without esophagitis; M19.90 Unspecified osteoarthritis, unspecified site; M06.9 Rheumatoid arthritis, unspecified; Z91.81 History of falling; M47.9 Spondylosis, unspecified; Z87.11 Personal history of peptic ulcer disease; Z87.19 Personal history of other diseases of the digestive system; Z87.442 Personal history of urinary calculi; Z85.820 Personal history of malignant melanoma of skin; Z96.651 Presence of right artificial knee joint; Z96.641 Presence of right artificial hip joint; E89.0 Postprocedural hypothyroidism; Z82.49 Family history of ischemic heart disease and other diseases of the circulatory system; Z80.9 Family history of malignant neoplasm, unspecified; Z79.890 Hormone replacement therapy; Z79.899 Other long term (current) drug therapy; Z88.1 Allergy status to other antibiotic agents; Z88.8 Allergy status to other drugs, medicaments and biological substances; Z88.0 Allergy status to penicillin; Z88.6 Allergy status to analgesic agent; Z88.2 Allergy status to sulfonamides
CPT/HCPCS: 96372; 96374; 96375; 96376; 96361; 99285; 36415; 94640 ×3; 94760; 93005; 93306; 80061; 80053 ×2; 82248; 83690; 83735; 84484 ×2; 85025; 85027; 85610; 85730; 71046; 76705; 71275; 74174; G0378 ×3; J2930; J1650; Q9967

== ENCOUNTER 2019-10-06 16:13 | Inpatient (IN) | payer MEDICARE, BC ==
[2019-10-06] MEDS ORDERED: SODIUM CHLORIDE 0.9% 1,000 ML IV STA (16:38)
[2019-10-06] MEDS ORDERED: ONDANSETRON 4 MG/2 ML VIAL IVP STA (16:38)
[2019-10-06] MEDS ORDERED: MORPHINE SULFATE 4 MG/ML SYRINGE IV STA (16:38)
[2019-10-06] MEDS ORDERED: HYDROmorphone 1 MG/ML 1 ML SYRINGE IVP STA ×2 (16:56→18:37)
--- NOTE | 2019-10-06 17:05 | ED ---
Abdominal Pain HPI - General Chief Complaint: Abdominal Pain Stated Complaint: Abd Pain, Diarrhea Time Seen by Provider: 10/06/19 16:25 Source: patient Mode of arrival: wheelchair Limitations: no limitations - History of Present Illness Initial Comments: The patient is a 74-year-old female with past medical history of hypertension, cholelithiasis and asthma who presents to the emergency room with reported abdominal pain. She states that she has had nausea with diarrhea for the past 2 days. She also has right upper quadrant abdominal pain. Reports to a history of cholelithiasis. She had a "gallbladder attack" in July. She was post follow-up with a surgeon to have her gallbladder removed however she didn't. Admits that pain feels similar. Describes it as a cramping sensation with radiation straight through to her back. She admits to chills without recorded fevers. Denies dysuria, hematuria or difficulty voiding. Admits to loose, n onbloody stools. Denies melanotic stools or hematochezia. No recent antibiotic use or travel. Denies eating any tainted foods. No sick contacts with similar symptoms. She denies any chest pain or difficulties breathing. She began vomiting today which is nonbloody and nonbilious. She has been unable to hold down any water. She did not take any medications at home as she does not have a matter disposal. She denies any additional symptoms to include headache, unilateral numbness or weakness, flank or back pain. There are no other alleviating, precipitating or modifying factors - Related Data Home Medications Medication Instructions Recorded Confirmed Estradiol [Estrace] 2 mg PO DAILY 05/14/14 10/06/19 Nadolol [Corgard] 40 mg PO DAILY 05/14/14 10/06/19 Pantoprazole Sodium [Protonix] 40 mg PO BID 05/14/14 10/06/19 Albuterol Inhaler [Ventolin Hfa 1 - 2 puff INHALATION RT-Q4H PRN 12/02/15 10/06/19 Inhaler] Acetaminophen [Tylenol Extra 1,000 mg PO BID 08/16/18 10/06/19 Strength] Albuterol Nebulized [Ventolin 2.5 mg INHALATION RT-BID 08/16/18 10/06/19 Nebulized] Ipratropium Nebulized [Atrovent 0.5 mg INHALATION RT-BID 11/13/18 10/06/19 Nebulized 0.2 MG/ML] Propylene Glycol [Systane Complete] 1 - 2 drops BOTH EYES TID PRN 08/16/19 10/06/19 DULoxetine HCL [Cymbalta] 30 mg PO DAILY 10/06/19 10/06/19 Hydrochlorothiazide [Hydrodiuril] 50 mg PO DAILY PRN 10/06/19 10/06/19 amLODIPine [Norvasc] 2.5 mg PO DAILY 10/06/19 10/06/19 Allergies Allergy/AdvReac Type Severity Reaction Status Date / Time cephalexin monohydrate Allergy HIVES Verified 10/06/19 19:43 [From Keflex] diphenhydramine HCl Allergy SWELLING Verified 10/06/19 19:43 [From Benadryl] OF TONGUE, SOB enoxaparin [From Lovenox] Allergy Rash/Hives Verified 10/06/19 19:43 Penicillins Allergy SWELLING, Verified 10/06/19 19:43 HIVES aspirin AdvReac EXCESS Verified 10/06/19 19:43 BLEEDING sulfamethoxazole AdvReac Nausea & Verified 10/06/19 19:43 [From Bactrim] Vomiting trimethoprim [From Bactrim] AdvReac Nausea & Verified 10/06/19 19:43 Vomiting Review of Systems ROS Statement: Those systems with pertinent positive or pertinent negative responses have been documented in the HPI. ROS Other: All systems not noted in ROS Statement are negative. 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, kidney stones, Last Myocardial Infarction Date:: 2012 History of Any Multi-Drug Resistant Organisms: None Reported Past Surgical History: Back Surgery, Heart Catheterization, Hysterectomy, Joint Replacement, Orthopedic Surgery Additional Past Surgical History / Comment(s): RODS & CAGES IN BACK, RT HIP REPLACEMENT, PARTIAL THYROIDECTOMY, RT KNEE REPLACEMENT Past Anesthesia/Blood Transfusion Reactions: Previous Problems w/ Anesthesia, Postoperative Nausea & Vomiting (PONV) Additional Past Anesthesia/Blood Transfusion Reaction / Comment(s): hard to wake up Past Psychological History: No Psychological Hx Reported Smoking Status: Never smoker Past Alcohol Use History: None Reported Past Drug Use History: None Reported - Past Family History Sister(s) Family Medical History: Cancer Brother(s) Family Medical History: Cancer Mother Family Medical History: Myocardial Infarction ([place]) Additional Family Medical History / Comment(s): Mother of a [place] at the age of 76yrs. Father History Unknown: Yes General Exam Limitations: no limitations General appearance: alert, in distress Head exam: Present: atraumatic, normocephalic, normal inspection Eye exam: Present: normal appearance, PERRL, EOMI. Absent: scleral icterus, conjunctival injection, periorbital swelling ENT exam: Present: normal exam, mucous membranes dry Neck exam: Present: normal inspection. Absent: tenderness, meningismus, lymphadenopathy Respiratory exam: Present: normal lung sounds bilaterally. Absent: respiratory distress, wheezes, rales, rhonchi, stridor Cardiovascular Exam: Present: regular rate, normal rhythm, normal heart sounds. Absent: systolic murmur, diastolic murmur, rubs, gallop, clicks GI/Abdominal exam: Present: soft, tenderness (right upper quadrant), normal bowel sounds. Absent: distended, guarding, rebound, rigid Extremities exam: Present: normal inspection, full ROM, normal capillary refill. Absent: tenderness, pedal edema, joint swelling, calf tenderness Back exam: Present: normal inspection Neurological exam: Present: alert, oriented X3, CN II-XII intact Psychiatric exam: Present: normal affect, normal mood Skin exam: Present: warm, dry, intact, normal color. Absent: rash Course Vital Signs 10/06/19 10/06/19 10/06/19 16:20 17:56 20:05 Temperature 97.6 F Pulse Rate 92 71 76 Respiratory 18 18 18 Rate Blood Pressure 163/82 193/85 182/91 O2 Sat by Pulse 99 96 99 Oximetry Medical Decision Making - Medical Decision Making Upon arrival the patient is placed into room 12. A thorough history and physical exam was performed. Peripheral IV is established. The patient was given 1 mg of Dilaudid for pain control. He did order morphine however she states that morphine makes her feel nauseated. She has had Dilaudid before in the past. Also provided the patient with 4 mg of Zofran. A 12-lead EKG was performed. Laboratory studies were conducted he did request a urine sample. The patient was sent for a couple her ultrasound as well as a CT for abdomen and pelvis. CBC and CMP are unremarkable. Urinalysis shows 3+ ketones, trace blood, large leukocyte esterase, 29 red blood cells, 78 white blood cells, 8 screws of the results and rare mucous. I did provide the patient with a dose of antibiotics because of her abnormal UA which will be sent for culture. Gallbladder ultrasound demonstrates nonobstructing right renal calculus. No gallstones or dilated ducts. CT of abdomen and pelvis demonstrates bilateral renal calculi no renal obstruction. No signs of acute abdomen or pelvis. Left- sided ovarian cysts. I discussed the results of the patient. She did have improvement in her symptoms with the Dilaudid however he does have recurrence. She is given a second dose. Discussed diagnosis, differential and treatment options. The patient feels uncomfortable going home as she feels that her pain returns whenever the medication wears off. Dr. Roca does accept admission for the patient. I will continue with fluid hydration and consult surgery for possible HIDA scan. Patient remained in stable condition awaiting transfer to the floor - Lab Data Result diagrams: 10/08/19 06:45 10/08/19 06:45 Lab Results 10/06/19 10/06/19 10/06/19 Range/Units 16:44 16:44 16:44 WBC 8.3 (3.8-10.6) k/uL RBC 4.30 (3.80-5.40) m/uL Hgb 12.8 (11.4-16.0) gm/dL Hct 40.5 (34.0-46.0) % MCV 94.2 (80.0-100.0) fL MCH 29.8 (25.0-35.0) pg MCHC 31.7 (31.0-37.0) g/dL RDW 13.8 (11.5-15.5) % Plt Count 373 (150-450) k/uL Neutrophils % 73 % Lymphocytes % 14 % Monocytes % 9 % Eosinophils % 1 % Basophils % 0 % Neutrophils # 6.0 (1.3-7.7) k/uL Lymphocytes # 1.1 (1.0-4.8) k/uL Monocytes # 0.7 (0-1.0) k/uL Eosinophils # 0.1 (0-0.7) k/uL Basophils # 0.0 (0-0.2) k/uL Hypochromasia Sodium 137 (137-145) mmol/L Potassium 4.1 (3.5-5.1) mmol/L Chloride 106 (98-107) mmol/L Carbon Dioxide 17 L (22-30) mmol/L Anion Gap 14 mmol/L BUN 15 (7-17) mg/dL Creatinine 0.54 (0.52-1.04) mg/dL Est GFR (CKD-EPI)AfAm >90 (>60 ml/min/1.73 sqM) Est GFR (CKD-EPI)NonAf >90 (>60 ml/min/1.73 sqM) Glucose 80 (74-99) mg/dL Plasma Lactic Acid Chris 1.3 (0.7-2.0) mmol/L Calcium 8.7 (8.4-10.2) mg/dL Iron (50-170) ug/dL TIBC (228-460) ug/dL % Saturation (12.00-45.00) Total Bilirubin 0.5 (0.2-1.3) mg/dL AST 53 H (14-36) U/L ALT 34 (4-34) U/L Alkaline Phosphatase 75 (38-126) U/L Total Protein 7.1 (6.3-8.2) g/dL Albumin 3.9 (3.5-5.0) g/dL Lipase 77 (23-300) U/L Urine Color Urine Appearance (Clear) Urine pH (5.0-8.0) Ur Specific [place] (1.001-1.035) Urine Protein (Negative) Urine Glucose (UA) (Negative) Urine Ketones (Negative) Urine Blood (Negative) Urine Nitrite (Negative) Urine Bilirubin (Negative) Urine Urobilinogen (<2.0) mg/dL Ur Leukocyte Esterase (Negative) Urine RBC (0-5) /hpf Urine WBC (0-5) /hpf Ur Squamous Epith Cells (0-4) /hpf Urine Mucus (None) /hpf 10/06/19 10/07/19 10/07/19 Range/Units 19:44 06:47 06:47 WBC 6.9 (3.8-10.6) k/uL RBC 3.50 L (3.80-5.40) m/uL Hgb 10.6 L (11.4-16.0) gm/dL Hct 33.9 L (34.0-46.0) % MCV 97.0 (80.0-100.0) fL MCH 30.4 (25.0-35.0) pg MCHC 31.3 (31.0-37.0) g/dL RDW 14.0 (11.5-15.5) % Plt Count 315 (150-450) k/uL Neutrophils % 69 % Lymphocytes % 14 % Monocytes % 10 % Eosinophils % 4 % Basophils % 0 % Neutrophils # 4.8 (1.3-7.7) k/uL Lymphocytes # 1.0 (1.0-4.8) k/uL Monocytes # 0.7 (0-1.0) k/uL Eosinophils # 0.2 (0-0.7) k/uL Basophils # 0.0 (0-0.2) k/uL Hypochromasia Slight Sodium 137 (137-145) mmol/L Potassium 3.7 (3.5-5.1) mmol/L Chloride 110 H (98-107) mmol/L Carbon Dioxide 17 L (22-30) mmol/L Anion Gap 10 mmol/L BUN 13 (7-17) mg/dL Creatinine 0.54 (0.52-1.04) mg/dL Est GFR (CKD-EPI)AfAm >90 (>60 ml/min/1.73 sqM) Est GFR (CKD-EPI)NonAf >90 (>60 ml/min/1.73 sqM) Glucose 63 L (74-99) mg/dL Plasma Lactic Acid Chris (0.7-2.0) mmol/L Calcium 7.4 L (8.4-10.2) mg/dL Iron (50-170) ug/dL TIBC (228-460) ug/dL % Saturation (12.00-45.00) Total Bilirubin (0.2-1.3) mg/dL AST (14-36) U/L ALT (4-34) U/L Alkaline Phosphatase (38-126) U/L Total Protein (6.3-8.2) g/dL Albumin (3.5-5.0) g/dL Lipase (23-300) U/L Urine Color Light Yellow Urine Appearance Cloudy H (Clear) Urine pH 6.0 (5.0-8.0) Ur Specific [place] >1.050 H (1.001-1.035) Urine Protein Trace H (Negative) Urine Glucose (UA) Negative (Negative) Urine Ketones 3+ H (Negative) Urine Blood Trace H (Negative) Urine Nitrite Negative (Negative) Urine Bilirubin Negative (Negative) Urine Urobilinogen <2.0 (<2.0) mg/dL Ur Leukocyte Esterase Large H (Negative) Urine RBC 29 H (0-5) /hpf Urine WBC 78 H (0-5) /hpf Ur Squamous Epith Cells 8 H (0-4) /hpf Urine Mucus Rare H (None) /hpf 10/08/19 10/08/19 10/08/19 Range/Units 06:45 06:45 06:45 WBC 5.8 (3.8-10.6) k/uL RBC 3.44 L (3.80-5.40) m/uL Hgb 10.6 L (11.4-16.0) gm/dL Hct 32.9 L (34.0-46.0) % MCV 95.6 (80.0-100.0) fL MCH 30.9 (25.0-35.0) pg MCHC 32.3 (31.0-37.0) g/dL RDW 14.1 (11.5-15.5) % Plt Count 341 (150-450) k/uL Neutrophils % 68 % Lymphocytes % 18 % Monocytes % 8 % Eosinophils % 4 % Basophils % 0 % Neutrophils # 3.9 (1.3-7.7) k/uL Lymphocytes # 1.0 (1.0-4.8) k/uL Monocytes # 0.5 (0-1.0) k/uL Eosinophils # 0.2 (0-0.7) k/uL Basophils # 0.0 (0-0.2) k/uL Hypochromasia Slight Sodium 137 (137-145) mmol/L Potassium 3.9 (3.5-5.1) mmol/L Chloride 110 H (98-107) mmol/L Carbon Dioxide 19 L (22-30) mmol/L Anion Gap 8 mmol/L BUN 7 (7-17) mg/dL Creatinine 0.48 L (0.52-1.04) mg/dL Est GFR (CKD-EPI)AfAm >90 (>60 ml/min/1.73 sqM) Est GFR (CKD-EPI)NonAf >90 (>60 ml/min/1.73 sqM) Glucose 83 (74-99) mg/dL Plasma Lactic Acid Chris (0.7-2.0) mmol/L Calcium 7.4 L (8.4-10.2) mg/dL Iron 86 (50-170) ug/dL TIBC 378 (228-460) ug/dL % Saturation 22.75 (12.00-45.00) Total Bilirubin 0.6 (0.2-1.3) mg/dL AST 36 (14-36) U/L ALT 28 (4-34) U/L Alkaline Phosphatase 50 (38-126) U/L Total Protein 5.9 L (6.3-8.2) g/dL Albumin 3.0 L (3.5-5.0) g/dL Lipase (23-300) U/L Urine Color Urine Appearance (Clear) Urine pH (5.0-8.0) Ur Specific [place] (1.001-1.035) Urine Protein (Negative) Urine Glucose (UA) (Negative) Urine Ketones (Negative) Urine Blood (Negative) Urine Nitrite (Negative) Urine Bilirubin (Negative) Urine Urobilinogen (<2.0) mg/dL Ur Leukocyte Esterase (Negative) Urine RBC (0-5) /hpf Urine WBC (0-5) /hpf Ur Squamous Epith Cells (0-4) /hpf Urine Mucus (None) /hpf - EKG Data EKG Comments: EKG demonstrates a normal sinus rhythm with ventricular rate of 71. AR interval 160. QRS 128. QTC 499. There is a left bundle branch block present. T-wave inversion aVL.EKG is compared to previous and is similar Disposition Clinical Impression: Intractable epigastric abdominal pain, Nausea and vomiting Disposition: ADMITTED IP TO THIS HOSP Condition: Stable Is patient prescribed a controlled substance at d/c from ED?: No Decision to Admit Reason: Admit from EC Decision Date: 10/06/19 Decision Time: 19:24
[2019-10-06 17:17] LABS: Basophils % (A) 0 %; Eosinophils # (A) 0.1 k/uL (0-0.7); Eosinophils % (A) 1 %; HCT 40.5 % (34.0-46.0); HGB 12.8 gm/dL (11.4-16.0); Lymphocytes # (A) 1.1 k/uL (1.0-4.8); Lymphocytes % (A) 14 %; MCH 29.8 pg (25.0-35.0); MCHC 31.7 g/dL (31.0-37.0); MCV 94.2 fL (80.0-100.0); Mean Platelet Volume 6.9; Monocytes # (A) 0.7 k/uL (0-1.0); Monocytes % (A) 9 %; Neutrophils % (A) 73 %; Platelet Count 373 k/uL (150-450); RDW 13.8 % (11.5-15.5); WBC 8.3 k/uL (3.8-10.6)
[2019-10-06 17:29] LABS: ALT 34 U/L (4-34); AST 53 U/L (14-36); African American GFR (CKD) >90 (>60 ml/min/1.73 sqM); Albumin 3.9 g/dL (3.5-5.0); Alkaline Phosphatase 75 U/L (38-126); Anion Gap 14 mmol/L; Blood Urea Nitrogen 15 mg/dL (7-17); Calcium 8.7 mg/dL (8.4-10.2); Carbon Dioxide 17 mmol/L (22-30); Chloride 106 mmol/L (98-107); Glucose 80 mg/dL (74-99); Non-African American GFR(CKD) >90 (>60 ml/min/1.73 sqM); Potassium 4.1 mmol/L (3.5-5.1); Sodium 137 mmol/L (137-145); Total Bilirubin 0.5 mg/dL (0.2-1.3); Total Protein 7.1 g/dL (6.3-8.2)
--- NOTE | 2019-10-06 18:23 | US ---
EXAMINATION TYPE: US gallbladder DATE OF EXAM: 10/06/2019 COMPARISON: US, CT today CLINICAL HISTORY: abd pain, vomiting. RUQ pain, nausea and vomiting EXAM MEASUREMENTS: Liver Length: 13.8 cm Gallbladder Wall: 0.2 cm CBD: 0.7 cm Right Kidney: 11.1 x 4.5 x 4.6 cm Pancreas: tail obscured by overlying bowel gas Liver: wnl Gallbladder: wnl Evidence for sonographic Dumont's sign: yes CBD: wnl, age appropriate for 7th decade Right Kidney: mid cortical simple cyst seen = 2.5 x 2.5 x 2.7cm; lower pole hyperechoic renal stone noted with posterior shadowing and size = 1.3 x 1.5 x 0.5cm. IMPRESSION: Nonobstructing right renal calculus. No gallstones or dilated ducts. No focal liver defec t.
--- NOTE | 2019-10-06 19:07 | CT ---
EXAMINATION TYPE: CT abdomen pelvis w con DATE OF EXAM: 10/06/2019 COMPARISON: HISTORY: Abdominal pain, N/V/D x2 days. CT DLP: 897.8 mGycm Automated exposure control for dose reduction was used. CONTRAST: Performed with IV Contrast, patient injected with 100 mL of Isovue 370. Lung bases are clear of infiltrate. There is no pleural effusion. Heart size is normal. There is no p ericardial effusion. Stomach is intact. Gallbladder appears normal. Liver shows no focal defect. Sple en is intact. There is no evidence of pancreatic mass. There is no adrenal mass. Kidneys show satisfactory contrast opacification. There is no hydronephrosi s. There are multiple renal cortical cysts that measure up to 3 cm. There is no retroperitoneal adeno keena. There are bilateral renal calculi. There is 1 cm calculus lower pole right kidney. There is 3 mm calculus anterior left kidney. There is 3 mm calculus lower pole left kidney. Ureters are not dila rylee. Bladder distends smoothly. There is right hip prosthesis. There is no inguinal hernia. There is no free fluid in the pelvis. There is 3 cm cyst in the pelvis on the left side that is probably ovari an cyst. There is no evidence of free air. There is no mesenteric edema. There is no sign of a bowel obstruction. Lumbar vertebra appear intact. There is posterior fusion surgery from L3 to S1. Bony pel vis is intact. Appendix not seen. No sign of appendicitis. IMPRESSION: Bilateral renal calculi. No renal obstruction. There is clearing of the left side obstruction compare d to old CT scan. No sign of acute abdomen and pelvis. Left-sided ovarian cyst unchanged compared to old exam and consistent with benign disease.
[2019-10-06] MEDS ORDERED: HYDROmorphone 1 MG/ML 1 ML SYRINGE IVP PRN (19:25)
[2019-10-06] MEDS ORDERED: NALOXONE 0.4 MG/ML 1 ML VIAL IV PRN (19:25)
[2019-10-06] MEDS ORDERED: HYDROCHLOROTHIAZIDE 25 MG TAB PO PRN (20:03)
[2019-10-06 20:06] LABS: Appearance,Urine Cloudy (Clear); Bilirubin,Urine Negative (Negative); Blood,Urine Trace (Negative); Color,Urine Light Yellow; Glucose,Urine (UA) Negative (Negative); Ketones,Urine 3+ (Negative); Leukocyte Esterase,Urine Large (Negative); Mucus,Urine Rare /hpf; Nitrite,Urine Negative (Negative); Protein,Urine Trace (Negative); RBC,Urine 29 /hpf (0-5); Squamous Epithelial Cell,Urine 8 /hpf (0-4); Urobilinogen,Urine <2.0 mg/dL (<2.0); WBC,Urine 78 /hpf (0-5)
[2019-10-06 20:07] LABS: Specific Gravity,Urine >1.050 (1.001-1.035)
[2019-10-06] MEDS: amLODIPine 2.5 MG TAB PO SCH (21:09)
[2019-10-06] MEDS: PANTOPRAZOLE 40 MG TABLET PO SCH (21:09)
[2019-10-06] MEDS: NADOLOL 20 MG TAB PO SCH (21:10)
[2019-10-06] MEDS: LEVOFLOXACIN 500MG-D5W PMX 500 MG in DEXTROSE/WATER 1 100ML.BAG IVPB SCH (21:10)
[2019-10-06] MEDS: SODIUM CHLORIDE 0.9% 1,000 ML IV SCH (21:10)
--- NOTE | 2019-10-07 00:18 | P.HPIM ---
History of Present Illness H&P Date: 10/06/19 Chief Complaint: abdominal pain nausea vomiting 74-year-old female with history of CAD, asthma, hypertension Patient comes in today with three-day history of repeated nausea vomiting and diarrhea. Associated with abdominal pain described as right upper quadrant 10 out of 10 in severity radius sharply to the back. Patient described the pain as sharp. She is having diarrhea every hour nonbloody no melena, and repeated vomiting mainly stomach juices nonbloody nonbilious. Patient denies any fevers but reports a lot of chills. Currently her pain is 5 out of 10 in severity. She denies any sick contact or recent traveling denies any unsanitary food or drink she shares her home with her in the ED same foods normally she cooks all the food and he's totally asymptomatic. Denies any sore throat muscle aches chest pain or trouble breathing. She reports decreased urine output today. She has decreased by mouth intake today. Patient said come to the hospital due to worsening of her symptoms.In the ED computed tomography scan of the abdomen ultrasound abdomen showed no acute disease. Showed nonobstructing renal calculi and ovarian cyst unchanged from before. Labs are unremarkable. Review of Systems Pertinent positives as noted in HPI. 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, falls, vertigo if stands too quickly, melanoma removed from face, kidney stones, Last Myocardial Infarction Date:: 2012 History of Any Multi-Drug Resistant Organisms: None Reported Past Surgical History: Back Surgery, Heart Catheterization, Hysterectomy, Joint Replacement, Orthopedic Surgery Additional Past Surgical History / Comment(s): RODS & CAGES IN BACK, RT HIP REPLACEMENT, PARTIAL THYROIDECTOMY, RT KNEE REPLACEMENT Past Anesthesia/Blood Transfusion Reactions: Previous Problems w/ Anesthesia, Postoperative Nausea & Vomiting (PONV) Additional Past Anesthesia/Blood Transfusion Reaction / Comment(s): hard to wake up Past Psychological History: No Psychological Hx Reported Additional Psychological History / Comment(s): . Smoking Status: Never smoker Past Alcohol Use History: None Reported Past Drug Use History: None Reported - Past Family History Sister(s) Family Medical History: Cancer Brother(s) Family Medical History: Cancer Mother Family Medical History: Myocardial Infarction ([place]) Additional Family Medical History / Comment(s): Mother of a [place] at the age of 76yrs. Father History Unknown: Yes Medications and Allergies Home Medications Medication Instructions Recorded Confirmed Type Estradiol [Estrace] 2 mg PO DAILY 05/14/14 10/06/19 History Nadolol [Corgard] 40 mg PO DAILY 05/14/14 10/06/19 History Pantoprazole Sodium [Protonix] 40 mg PO BID 05/14/14 10/06/19 History Albuterol Inhaler [Ventolin Hfa 1 - 2 puff INHALATION RT-Q4H PRN 12/02/15 10/06/19 History Inhaler] Acetaminophen [Tylenol Extra 1,000 mg PO BID 08/16/18 10/06/19 History Strength] Albuterol Nebulized [Ventolin 2.5 mg INHALATION RT-BID 08/16/18 10/06/19 History Nebulized] Ipratropium Nebulized [Atrovent 0.5 mg INHALATION RT-BID 11/13/18 10/06/19 History Nebulized 0.2 MG/ML] Propylene Glycol [Systane Complete] 1 - 2 drops BOTH EYES TID PRN 08/16/19 10/06/19 History DULoxetine HCL [Cymbalta] 30 mg PO DAILY 10/06/19 10/06/19 History Hydrochlorothiazide [Hydrodiuril] 50 mg PO DAILY PRN 10/06/19 10/06/19 History amLODIPine [Norvasc] 2.5 mg PO DAILY 10/06/19 10/06/19 History Allergies Allergy/AdvReac Type Severity Reaction Status Date / Time cephalexin monohydrate Allergy HIVES Verified 10/06/19 19:43 [From Keflex] diphenhydramine HCl Allergy SWELLING Verified 10/06/19 19:43 [From Benadryl] OF TONGUE, SOB enoxaparin [From Lovenox] Allergy Rash/Hives Verified 10/06/19 19:43 Penicillins Allergy SWELLING, Verified 10/06/19 19:43 HIVES aspirin AdvReac EXCESS Verified 10/06/19 19:43 BLEEDING sulfamethoxazole AdvReac Nausea & Verified 10/06/19 19:43 [From Bactrim] Vomiting trimethoprim [From Bactrim] AdvReac Nausea & Verified 10/06/19 19:43 Vomiting Physical Exam Vitals: Vital Signs Temp Pulse Pulse Resp BP BP Pulse Ox 10/06/19 21:54 183/76 10/06/19 21:00 69 190/79 10/06/19 20:26 97.6 F 74 16 197/80 100 10/06/19 20:05 76 18 182/91 99 10/06/19 17:56 71 18 193/85 96 10/06/19 16:20 97.6 F 92 18 163/82 99 Intake and Output 10/06/19 10/06/19 10/07/19 14:59 22:59 06:59 Output Total 1 Balance -1 Output: Emesis 1 Other: Voiding Method Toilet # Voids 1 Weight 71.668 kg Constitutional: No acute distress, conversant, pleasant Eyes: Anicteric sclerae, moist conjunctiva, no lid-lag Pupils equal round reactive to light ENMT: NC/AT Oropharynx clear, no erythema, exudates Neck: Supple, FROM, no masses, or JVD No carotid bruits No thyromegaly Lungs: Clear to auscultation Clear to percussion Normal respiratory effort, no accessory muscle use Cardiovascular: Heart regular in rate and rhythm, No murmurs, gallops, or rubs No peripheral edema Abdominal: Soft, tenderness to deep palpation over the epigastric and right upper quadrant no guarding, rebound or rigidity Abdomen moving with respiration Normoactive bowel sounds No hepatomegaly, No splenomegaly No palpable mass No abdominal wall hernia noted Skin: Normal temperature, tone, texture, turgor No induration No subcutaneous nodules No rash, lesions No ulcers Extremities: No digital cyanosis No clubbing Pedal pulses intact and symmetrical Radial pulses intact and symmetrical No calf tenderness Psychiatric: Alert and oriented to person, place and time Appropriate affect fair judgment Neuro Muscles Strength 5/5 in all 4 extremities Sensation to light touch grossly present throughout Cranial nerves II-XII grossly intact No focal sensory deficits Lymphatics: no palpable cervical or supraclavicular , or inguinal lymph nodes Results CBC & Chem 7: 10/06/19 16:44 10/06/19 16:44 Labs: Abnormal Lab Results - Last 24 Hours (Table) 10/06/19 10/06/19 Range/Units 16:44 19:44 Carbon Dioxide 17 L (22-30) mmol/L AST 53 H (14-36) U/L Urine Appearance Cloudy H (Clear) Ur Specific [place] >1.050 H (1.001-1.035) Urine Protein Trace H (Negative) Urine Ketones 3+ H (Negative) Urine Blood Trace H (Negative) Ur Leukocyte Esterase Large H (Negative) Urine RBC 29 H (0-5) /hpf Urine WBC 78 H (0-5) /hpf Ur Squamous Epith Cells 8 H (0-4) /hpf Urine Mucus Rare H (None) /hpf Thrombosis Risk Factor Assmnt - Choose All That Apply Any of the Below Risk Factors Present?: Yes Assessment and Plan Assessment: 74-year-old female with history of hypertension, CAD, asthma Patient comes in today with 3 day history of repeated nausea vomiting and diarrhea and abdominal pain. She was told in the past that she has gallstones CT and ultrasound in the ED was unremarkable for any acute disease except for nonobstructing renal stones Patient was admitted under observation for monitoring and controlling of her symptoms in general surgery evaluation Plan: repeated nausea vomiting, and diarrhea Abdominal pain Possibly secondary to stomach flu CT of the abdomen and ultrasound of the abdomen was unremarkable for any acute disease, showed bilateral nonobstructing renal stones, unchanged ovarian cyst Pain control Symptomatic control IV fluid hydration Nothing by mouth General surgery evaluation, patient has history of gallstones HIDA scan uncontrolled blood pressure Resume home meds Close monitoring History of CAD History of asthma currently compensated and controlled History of osteoarthritis Preformed a thorough record review from recent hospitalization recent hospitalization for abdominal pain July which she was found to have some gallstones however lost to follow-up CODE STATUS:fullcode DVT prophylaxis: subcu 3 times a day Discussed with: Patient, ER, RN Anticipated length of stay less than [address]:home A total of 60 minutes was spent on the care of this complex patient more than 50% of the time was spent in counseling and care coordination.
[2019-10-07] MEDS: ONDANSETRON 4 MG/2 ML VIAL IVP PRN ×2 (05:05→12:47)
[2019-10-07 07:15] LABS: Basophils % (A) 0 %; Eosinophils # (A) 0.2 k/uL (0-0.7); Eosinophils % (A) 4 %; HCT 33.9 % (34.0-46.0); HGB 10.6 gm/dL (11.4-16.0); Hypochromasia Slight; Lymphocytes % (A) 14 %; MCH 30.4 pg (25.0-35.0); MCHC 31.3 g/dL (31.0-37.0); Mean Platelet Volume 6.9; Monocytes # (A) 0.7 k/uL (0-1.0); Monocytes % (A) 10 %; Neutrophils # (A) 4.8 k/uL (1.3-7.7); Neutrophils % (A) 69 %; Platelet Count 315 k/uL (150-450); WBC 6.9 k/uL (3.8-10.6)
[2019-10-07 07:31] LABS: African American GFR (CKD) >90 (>60 ml/min/1.73 sqM); Anion Gap 10 mmol/L; Blood Urea Nitrogen 13 mg/dL (7-17); Calcium 7.4 mg/dL (8.4-10.2); Carbon Dioxide 17 mmol/L (22-30); Chloride 110 mmol/L (98-107); Glucose 63 mg/dL (74-99); Non-African American GFR(CKD) >90 (>60 ml/min/1.73 sqM); Potassium 3.7 mmol/L (3.5-5.1); Sodium 137 mmol/L (137-145)
[2019-10-07] MEDS ORDERED: ALBUTEROL NEBULIZED 2.5 MG/3 ML INHALATION SCH (08:00)
[2019-10-07] MEDS: IPRATROPIUM-ALBUTEROL 3 ML NEB INHALATION SCH ×2 (08:54→19:37)
[2019-10-07] MEDS: amLODIPine 2.5 MG TAB PO SCH (08:55)
[2019-10-07] MEDS: PANTOPRAZOLE 40 MG TABLET PO SCH ×2 (08:55→16:58)
[2019-10-07] MEDS: DULoxetine HCL 30 MG CAPSULE.DR PO SCH (08:57)
[2019-10-07] MEDS: NADOLOL 20 MG TAB PO SCH (08:57)
[2019-10-07] MEDS: SODIUM CHLORIDE 0.9% 1,000 ML IV SCH ×2 (08:57→16:57)
[2019-10-07] MEDS: ESTRADIOL 0.5 MG TAB PO SCH (08:57)
[2019-10-07] MEDS ORDERED: METOCLOPRAMIDE 5 MG/ML 2 ML VIAL IVP PRN (09:53)
--- NOTE | 2019-10-07 11:01 | P.GSCN ---
History of Present Illness Consult date: 10/07/19 Reason for Consult: abdominal pain History of present illness: 74-year-old female started having diarrhea nausea and vomiting on . Thi s is associated with upper abdominal pain more to the right side with radiation to the back. She stopped eating because of the pain. She is having frequent episodes of vomiting. Last bowel movement was yesterday. She describes chills and sweats. She is afebrile. White blood cell count is normal. Urinalysisdoes show large leukocyte esterase and white blood cells. States she was told recently she may have a gallbladder problem. She had an ultrasound and a CAT scan performed. Ultrasound revealed tenderness over the gallbladder. No stones or sludge were seen. CAT scan showed bilateral renal stones. No definite hydronephrosis or polynephritis. Calcification along the course of the right ureter appears to be vascular in origin. Urinary cultures are pending. Review of Systems The patient denies any acute changes in vision or hearing, no dysphagia or od ynophagia, no chest pain or shortness of breath, no dysuria or hematuria, no headache, no runny nose, no rectal bleeding or melena, no unexplained weight loss Past Medical History Past Medical History: Asthma, Cancer, Fibromyalgia, GERD/Reflux, Hypertension, Myocardial Infarction ([place]), Osteoarthritis (OA), Rheumatoid Arthritis ([place]), Thyroid Disorder Additional Past Medical History / Comment(s): Hx fell on 06/18/18 with head trauma/nasal bone fracture/laceration., lumbar sacral spondylosis with back pain, migraines (none since cervical surgery), occasional slight difficulty with swallowing, gastic ulcer, H-pylori, diverticular disease, 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, falls, vertigo if stands too quickly, melanoma removed from face, kidney stones, Last Myocardial Infarction Date:: 2012 History of Any Multi-Drug Resistant Organisms: None Reported Past Surgical History: Back Surgery, Heart Catheterization, Hysterectomy, Joint Replacement, Orthopedic Surgery Additional Past Surgical History / Comment(s): RODS & CAGES IN BACK, RT HIP REPLACEMENT, PARTIAL THYROIDECTOMY, RT KNEE REPLACEMENT Past Anesthesia/Blood Transfusion Reactions: Previous Problems w/ Anesthesia, Postoperative Nausea & Vomiting (PONV) Additional Past Anesthesia/Blood Transfusion Reaction / Comm: hard to wake up Past Psychological History: No Psychological Hx Reported Additional Psychological History / Comment(s): . Smoking Status: Never smoker Past Alcohol Use History: None Reported Past Drug Use History: None Reported - Past Family History Sister(s) Family Medical History: Cancer Brother(s) Family Medical History: Cancer Mother Family Medical History: Myocardial Infarction ([place]) Additional Family Medical History / Comment(s): Mother of a [place] at the age of 76yrs. Father History Unknown: Yes Medications and Allergies Home Medications Medication Instructions Recorded Confirmed Type Estradiol [Estrace] 2 mg PO DAILY 05/14/14 10/06/19 History Nadolol [Corgard] 40 mg PO DAILY 05/14/14 10/06/19 History Pantoprazole Sodium [Protonix] 40 mg PO BID 05/14/14 10/06/19 History Albuterol Inhaler [Ventolin Hfa 1 - 2 puff INHALATION RT-Q4H PRN 12/02/15 10/06/19 History Inhaler] Acetaminophen [Tylenol Extra 1,000 mg PO BID 08/16/18 10/06/19 History Strength] Albuterol Nebulized [Ventolin 2.5 mg INHALATION RT-BID 08/16/18 10/06/19 History Nebulized] Ipratropium Nebulized [Atrovent 0.5 mg INHALATION RT-BID 11/13/18 10/06/19 History Nebulized 0.2 MG/ML] Propylene Glycol [Systane Complete] 1 - 2 drops BOTH EYES TID PRN 08/16/19 10/06/19 History DULoxetine HCL [Cymbalta] 30 mg PO DAILY 10/06/19 10/06/19 History Hydrochlorothiazide [Hydrodiuril] 50 mg PO DAILY PRN 10/06/19 10/06/19 History amLODIPine [Norvasc] 2.5 mg PO DAILY 10/06/19 10/06/19 History Allergies Allergy/AdvReac Type Severity Reaction Status Date / Time cephalexin monohydrate Allergy HIVES Verified 10/06/19 19:43 [From Keflex] diphenhydramine HCl Allergy SWELLING Verified 10/06/19 19:43 [From Benadryl] OF TONGUE, SOB enoxaparin [From Lovenox] Allergy Rash/Hives Verified 10/06/19 19:43 Penicillins Allergy SWELLING, Verified 10/06/19 19:43 HIVES aspirin AdvReac EXCESS Verified 10/06/19 19:43 BLEEDING sulfamethoxazole AdvReac Nausea & Verified 10/06/19 19:43 [From Bactrim] Vomiting trimethoprim [From Bactrim] AdvReac Nausea & Verified 10/06/19 19:43 Vomiting Surgical - Exam Vital Signs Temp Pulse Resp BP Pulse Ox 97.6 F 92 18 163/82 99 10/06/19 16:20 10/06/19 16:20 10/06/19 16:20 10/06/19 16:20 10/06/19 16:20 Physical exam: General: Well-developed, well-nourished HEENT: Normocephalic, sclerae nonicteric Abdomen: epigastric and right upper quadrant tenderness, right CVA tenderness, nondistended Extremities: No edema Neuro: Alert and oriented Results - Labs 10/07/19 06:47 10/07/19 06:47 Abnormal Lab Results - Last 24 Hours (Table) 10/06/19 10/06/19 10/07/19 Range/Units 16:44 19:44 06:47 RBC 3.50 L (3.80-5.40) m/uL Hgb 10.6 L (11.4-16.0) gm/dL Hct 33.9 L (34.0-46.0) % Chloride (98-107) mmol/L Carbon Dioxide 17 L (22-30) mmol/L Glucose (74-99) mg/dL Calcium (8.4-10.2) mg/dL AST 53 H (14-36) U/L Urine Appearance Cloudy H (Clear) Ur Specific [place] >1.050 H (1.001-1.035) Urine Protein Trace H (Negative) Urine Ketones 3+ H (Negative) Urine Blood Trace H (Negative) Ur Leukocyte Esterase Large H (Negative) Urine RBC 29 H (0-5) /hpf Urine WBC 78 H (0-5) /hpf Ur Squamous Epith Cells 8 H (0-4) /hpf Urine Mucus Rare H (None) /hpf 10/07/19 Range/Units 06:47 RBC (3.80-5.40) m/uL Hgb (11.4-16.0) gm/dL Hct (34.0-46.0) % Chloride 110 H (98-107) mmol/L Carbon Dioxide 17 L (22-30) mmol/L Glucose 63 L (74-99) mg/dL Calcium 7.4 L (8.4-10.2) mg/dL AST (14-36) U/L Urine Appearance (Clear) Ur Specific [place] (1.001-1.035) Urine Protein (Negative) Urine Ketones (Negative) Urine Blood (Negative) Ur Leukocyte Esterase (Negative) Urine RBC (0-5) /hpf Urine WBC (0-5) /hpf Ur Squamous Epith Cells (0-4) /hpf Urine Mucus (None) /hpf Microbiology - Last 24 Hours (Table) 10/06/19 19:44 Urine Culture - Preliminary Urine,Voided Diabetes panel 10/06/19 10/07/19 Range/Units 16:44 06:47 Sodium 137 137 (137-145) mmol/L Potassium 4.1 3.7 (3.5-5.1) mmol/L Chloride 106 110 H (98-107) mmol/L Carbon Dioxide 17 L 17 L (22-30) mmol/L BUN 15 13 (7-17) mg/dL Creatinine 0.54 0.54 (0.52-1.04) mg/dL Glucose 80 63 L (74-99) mg/dL Calcium 8.7 7.4 L (8.4-10.2) mg/dL AST 53 H (14-36) U/L ALT 34 (4-34) U/L Alkaline Phosphatase 75 (38-126) U/L Total Protein 7.1 (6.3-8.2) g/dL Albumin 3.9 (3.5-5.0) g/dL Calcium panel 10/06/19 10/07/19 Range/Units 16:44 06:47 Calcium 8.7 7.4 L (8.4-10.2) mg/dL Albumin 3.9 (3.5-5.0) g/dL Pituitary panel 10/06/19 10/07/19 Range/Units 16:44 06:47 Sodium 137 137 (137-145) mmol/L Potassium 4.1 3.7 (3.5-5.1) mmol/L Chloride 106 110 H (98-107) mmol/L Carbon Dioxide 17 L 17 L (22-30) mmol/L BUN 15 13 (7-17) mg/dL Creatinine 0.54 0.54 (0.52-1.04) mg/dL Glucose 80 63 L (74-99) mg/dL Calcium 8.7 7.4 L (8.4-10.2) mg/dL Adrenal panel 10/06/19 10/07/19 Range/Units 16:44 06:47 Sodium 137 137 (137-145) mmol/L Potassium 4.1 3.7 (3.5-5.1) mmol/L Chloride 106 110 H (98-107) mmol/L Carbon Dioxide 17 L 17 L (22-30) mmol/L BUN 15 13 (7-17) mg/dL Creatinine 0.54 0.54 (0.52-1.04) mg/dL Glucose 80 63 L (74-99) mg/dL Calcium 8.7 7.4 L (8.4-10.2) mg/dL Total Bilirubin 0.5 (0.2-1.3) mg/dL AST 53 H (14-36) U/L ALT 34 (4-34) U/L Alkaline Phosphatase 75 (38-126) U/L Total Protein 7.1 (6.3-8.2) g/dL Albumin 3.9 (3.5-5.0) g/dL Assessment and Plan (1) Intractable epigastric abdominal pain Narrative/Plan: patient with right-sided pain. She appears more ill than her studies would suggest. Possibility of pyelonephritis remains. Await urinary cultures. Co ntinue antibiotics. We'll check HIDA scan. Current Visit: Yes Status: Acute Code(s): R10.13 - EPIGASTRIC PAIN SNOMED Code(s): 04558991
[2019-10-07] MEDS ORDERED: HYDROmorphone 1 MG/ML 1 ML SYRINGE IVP STA (11:56)
--- NOTE | 2019-10-07 11:58 | P.PN ---
Subjective Progress Note Date: 10/07/19 Principal diagnosis: right upper quadrant abdominal pain Patient was seen and examined. No acute events overnight. Patient reports 8 out of 10 in severity right upper quadrant abdominal pain radiating straight to the back. She also reports right-sided flank pain. She denies any chest pain, shortness of breath or palpitations. Complains of nausea and dry heaves. No fever or chills. Objective - Vital Signs Vital signs: Vital Signs Temp 97.9 F 10/07/19 07:49 Pulse 72 10/07/19 09:08 Resp 12 10/07/19 08:10 BP 134/71 10/07/19 07:49 Pulse Ox 98 10/07/19 07:49 Intake & Output 10/06/19 10/07/19 10/07/19 18:59 06:59 18:59 Output Total 1 Balance -1 Weight 71.668 kg 71.668 kg Output: Emesis 1 Other: Voiding Method Toilet # Voids 1 1 - Exam General: [non toxic], [no distress], [appears at stated age] Derm: [warm], [dry] Head: [atraumatic], [normocephalic], [symmetric] Eyes: [EOMI], [no lid lag], [anicteric sclera] Mouth: [no lip lesion], [mucus membranes moist] Cardiovascular: [S1S2 reg], [no murmur], [positive DP pulse bilateral], Lungs: [CTA bilateral], [no rhonchi, no rales] , [no accessory muscle use] Abdominal: [soft], [ nontender to palpation], [no guarding], [no appreciable organomegaly], [positive CVA tenderness left side], [positive [place] sign] Ext: [no gross muscle atrophy], [no edema], [no contractures] Neuro: [no focal neuro deficits] Psych: [Alert], [oriented], [appropriate affect] - Labs CBC & Chem 7: 10/07/19 06:47 10/07/19 06:47 Labs: Abnormal Lab Results - Last 24 Hours (Table) 10/06/19 10/06/19 10/07/19 Range/Units 16:44 19:44 06:47 RBC 3.50 L (3.80-5.40) m/uL Hgb 10.6 L (11.4-16.0) gm/dL Hct 33.9 L (34.0-46.0) % Chloride (98-107) mmol/L Carbon Dioxide 17 L (22-30) mmol/L Glucose (74-99) mg/dL Calcium (8.4-10.2) mg/dL AST 53 H (14-36) U/L Urine Appearance Cloudy H (Clear) Ur Specific [place] >1.050 H (1.001-1.035) Urine Protein Trace H (Negative) Urine Ketones 3+ H (Negative) Urine Blood Trace H (Negative) Ur Leukocyte Esterase Large H (Negative) Urine RBC 29 H (0-5) /hpf Urine WBC 78 H (0-5) /hpf Ur Squamous Epith Cells 8 H (0-4) /hpf Urine Mucus Rare H (None) /hpf 10/07/19 Range/Units 06:47 RBC (3.80-5.40) m/uL Hgb (11.4-16.0) gm/dL Hct (34.0-46.0) % Chloride 110 H (98-107) mmol/L Carbon Dioxide 17 L (22-30) mmol/L Glucose 63 L (74-99) mg/dL Calcium 7.4 L (8.4-10.2) mg/dL AST (14-36) U/L Urine Appearance (Clear) Ur Specific [place] (1.001-1.035) Urine Protein (Negative) Urine Ketones (Negative) Urine Blood (Negative) Ur Leukocyte Esterase (Negative) Urine RBC (0-5) /hpf Urine WBC (0-5) /hpf Ur Squamous Epith Cells (0-4) /hpf Urine Mucus (None) /hpf Microbiology - Last 24 Hours (Table) 10/06/19 19:44 Urine Culture - Preliminary Urine,Voided Assessment and Plan Assessment: Abdominal pain associated with nausea, vomiting and diarrhea with abnormal UA Hypertension Anemia Hyperchloremic metabolic acidosis CT abdomen pelvis shows bilateral renal calculi without obstruction. Gallbladder ultrasound shows no gallstones or dilated ducts. UA shows large leukocyte esterase. Plans: Continue IV levofloxacin. General surgery evaluated patient, plans for HIDA scan. Follow urine culture. Zofran and Reglan as needed for nausea or vomiting. Continue Protonix by mouth. Dilaudid as needed for severe pain. BP 134/71. Plans: Continue amlodipine. Continue nadolol. Monitor vitals, adjust medications as necessary. Hemoglobin 10.6. Likely hemodilution as all cell lines CAME DOWN. PLANS: Repeat CBC tomorrow morning. Chloride 110, bicarbonate 17. Likely due to IVF. Plans: Repeat BMP tomorrow morning. [Patient with continued severe abdominal pain. Unknown etiology. Treatment for UTI/pyonephritis. HIDA scan pending. Surgery on board. Likely DC in 1-2 days.]
[2019-10-07] MEDS ORDERED: METOCLOPRAMIDE 5 MG/ML 2 ML VIAL IVP SCH (12:00)
[2019-10-07] MEDS: LEVOFLOXACIN 500MG-D5W PMX 500 MG in DEXTROSE/WATER 1 100ML.BAG IVPB SCH (21:15)
[2019-10-08] MEDS: SODIUM CHLORIDE 0.9% 1,000 ML IV SCH ×3 (04:56→20:47)
[2019-10-08 07:13] LABS: Basophils % (A) 0 %; Eosinophils # (A) 0.2 k/uL (0-0.7); Eosinophils % (A) 4 %; HCT 32.9 % (34.0-46.0); HGB 10.6 gm/dL (11.4-16.0); Hypochromasia Slight; Lymphocytes % (A) 18 %; MCH 30.9 pg (25.0-35.0); MCHC 32.3 g/dL (31.0-37.0); MCV 95.6 fL (80.0-100.0); Mean Platelet Volume 6.8; Monocytes # (A) 0.5 k/uL (0-1.0); Monocytes % (A) 8 %; Neutrophils # (A) 3.9 k/uL (1.3-7.7); Neutrophils % (A) 68 %; Platelet Count 341 k/uL (150-450); RBC 3.44 m/uL (3.80-5.40); RDW 14.1 % (11.5-15.5); WBC 5.8 k/uL (3.8-10.6)
[2019-10-08 07:28] LABS: ALT 28 U/L (4-34); AST 36 U/L (14-36); African American GFR (CKD) >90 (>60 ml/min/1.73 sqM); Alkaline Phosphatase 50 U/L (38-126); Anion Gap 8 mmol/L; Blood Urea Nitrogen 7 mg/dL (7-17); Calcium 7.4 mg/dL (8.4-10.2); Carbon Dioxide 19 mmol/L (22-30); Chloride 110 mmol/L (98-107); Glucose 83 mg/dL (74-99); Non-African American GFR(CKD) >90 (>60 ml/min/1.73 sqM); Potassium 3.9 mmol/L (3.5-5.1); Sodium 137 mmol/L (137-145); Total Bilirubin 0.6 mg/dL (0.2-1.3); Total Protein 5.9 g/dL (6.3-8.2)
[2019-10-08] MEDS: IPRATROPIUM-ALBUTEROL 3 ML NEB INHALATION SCH ×2 (08:07→20:07)
--- NOTE | 2019-10-08 10:55 | NM ---
EXAMINATION TYPE: NM hepatobiliary w CCK DATE OF EXAM: 10/08/2019 COMPARISON: Gallbladder ultrasound dated 10/06/2019 HISTORY: Right upper quadrant pain TECHNIQUE: After the intravenous administration of 4.61 mCi Tc 99m Mebrofenin hepatobiliary scintigra phy is performed. Immediate images post injection. FINDINGS: There is satisfactory initial accumulation of tracer by the liver. The gallbladder is visualized wit hin 16 minutes. The small bowel activity is not seen as the patient discontinued the examination. A t one hour CCK was administered, patient was injected with 1.4 mcg of Kinevac, gallbladder ejection f raction was unable to be calculated as the patient refused to continue the exam. Therefore there is no scintigraphic evidence of cystic or common bile duct obstruction to suggest acute cholecystitis or gallbladder dyskinesia. IMPRESSION: No scintigraphic evidence of acute or chronic cholecystitis. The patient refused to warren nue the examination and gallbladder ejection fraction cannot be calculated.
[2019-10-08] MEDS: NADOLOL 20 MG TAB PO SCH (11:01)
[2019-10-08] MEDS: ONDANSETRON 4 MG/2 ML VIAL IVP PRN (11:01)
[2019-10-08] MEDS: amLODIPine 2.5 MG TAB PO SCH (11:01)
[2019-10-08] MEDS: PANTOPRAZOLE 40 MG TABLET PO SCH ×2 (11:01→18:17)
[2019-10-08] MEDS: DULoxetine HCL 30 MG CAPSULE.DR PO SCH (11:01)
[2019-10-08] MEDS ORDERED: MORPHINE SULFATE 4 MG/ML SYRINGE IVP PRN (11:03)
--- NOTE | 2019-10-08 11:12 | P.PN ---
Subjective Progress Note Date: 10/08/19 Patient seen and examined at bedside recently back from having her HIDA scan, actually reporting that she was unable to complete it secondary to severe right upper quadrant pain 07/03, patient has a positive Dumont sign. Also reporting some nausea and blood pressure is elevated this morning. Urine cultures growing genital eli, patient afebrile without leukocytosis Objective - Vital Signs Vital signs: Vital Signs Temp 97.6 F 10/08/19 10:59 Pulse 68 10/08/19 10:59 Resp 18 10/08/19 10:59 BP 167/78 10/08/19 10:59 Pulse Ox 98 10/08/19 10:59 Intake & Output 10/07/19 10/08/19 10/08/19 18:59 06:59 18:59 Other: Voiding Method Toilet # Voids 1 # Bowel Movements 1 - Exam Constitutional: No acute distress, conversant, pleasant Eyes: Anicteric sclerae, moist conjunctiva, no lid-lag, PERRLA ENMT: NC/AT,Oropharynx clear, no erythema, exudates Neck:Supple, FROM, no masses, or JVD, No carotid bruits; No thyromegaly Lungs: Clear to auscultation, Clear to percussion, Normal respiratory effort, no accessory muscle use Cardiovascular: Heart regular in rate and rhythm, No murmurs, gallops, or rubs no peripheral edema Abdominal: Soft Nontender, nom distended, no guarding, no rebound or rigidity, Normoactive bowel sounds No hepatomegaly, No splenomegaly, No palpable mass No abdominal wall hernia noted Skin: Normal temperature, tone, texture, turgor, No induration No subcutaneous nodules, No rash, lesions, No ulcers Extremities:No digital cyanosis No clubbing, Pedal pulses intact and symmetrical Radial pulses intact and symmetrical Normal gait and station, No calf tenderness Psychiatric: Alert and oriented to person, place and time, Appropriate affect Intact judgement Neuro: Muscles Strength 5/5 in all 4 extremities, Sensation to light touch grossly present throughout, Cranial nerves II-XII grossly intact. No focal sens ory deficits Sorry - Labs CBC & Chem 7: 10/08/19 06:45 10/08/19 06:45 Labs: Abnormal Lab Results - Last 24 Hours (Table) 10/08/19 10/08/19 Range/Units 06:45 06:45 RBC 3.44 L (3.80-5.40) m/uL Hgb 10.6 L (11.4-16.0) gm/dL Hct 32.9 L (34.0-46.0) % Chloride 110 H (98-107) mmol/L Carbon Dioxide 19 L (22-30) mmol/L Creatinine 0.48 L (0.52-1.04) mg/dL Calcium 7.4 L (8.4-10.2) mg/dL Total Protein 5.9 L (6.3-8.2) g/dL Albumin 3.0 L (3.5-5.0) g/dL Microbiology - Last 24 Hours (Table) 10/06/19 19:44 Urine Culture - Final Urine,Voided Assessment and Plan Assessment: Right upper quadrant pain * CT abdomen pelvis showing left-sided ovarian cyst, GB US showed nonobstructing right renal calculus * Previous GB US 08/17 including shadowing of mobile gallstones with evidence of cholecystitis * unable to complete HIDA secondary to pain + positive Dumont sign * Continue Dilaudid when necessary, continue IV fluids and IV antibiotics * Urine culture showing genital eli * awaiting further recommendations from general surgery Hypertension * blood pressure elevated secondary to pain * Continue current regimen Anemia * stable hemoglobin * check iron studies and Hemoccult Hyperchloremic metabolic acidosis * improving with IV fluidscontinue to monitor * disposition * Awaiting general surgery for further recommendations
[2019-10-08] MEDS ORDERED: HYDROmorphone 0.5 MG/0.5 ML SYRINGE IVP PRN (11:13)
[2019-10-08] MEDS: ESTRADIOL 0.5 MG TAB PO SCH ×2 (16:49→17:58)
[2019-10-09] MEDS: SODIUM CHLORIDE 0.9% 1,000 ML IV SCH (03:43)
[2019-10-09 05:06] LABS: % Iron Saturation 22.75 (12.00-45.00)
[2019-10-09 07:35] VITALS: BP 157/78; RESP 15; TEMP 99
[2019-10-09] MEDS: IPRATROPIUM-ALBUTEROL 3 ML NEB INHALATION SCH (07:59)
[2019-10-09] MEDS: amLODIPine 2.5 MG TAB PO SCH (08:10)
[2019-10-09] MEDS: PANTOPRAZOLE 40 MG TABLET PO SCH (08:10)
[2019-10-09] MEDS: NADOLOL 20 MG TAB PO SCH (08:11)
[2019-10-09] MEDS: DULoxetine HCL 30 MG CAPSULE.DR PO SCH (08:11)
[2019-10-09] MEDS: ESTRADIOL 0.5 MG TAB PO SCH (08:11)
[2019-10-09 08:17] VITALS: PULSE 72
--- NOTE | 2019-10-09 11:38 | P.PN ---
Subjective Progress Note Date: 10/08/19 CHIEF COMPLAINT: abdominal pain HISTORY OF PRESENT ILLNESS: Patient examined this morning at the bedside. patient was scheduled for HIDA scan this morning. However patient was unable to complete HIDA scan so no ejection fraction is available. No evidence of acute or chronic cholecystitis. WBC 5.8. hemoglobin 10.6. Bilirubin 0.6. AST 36. ALT 28. PHYSICAL EXAM: VITAL SIGNS: Reviewed. GENERAL: Well-developed in no acute distress. HEENT: No sclera icterus. Extraocular movements grossly intact. Moist buccal mucosa. Head is atraumatic, normocephalic. ABDOMEN: Soft. Nondistended. Nontender. NEUROLOGIC: Alert and oriented. Cranial nerves II through XII grossly intact. ASSESSMENT: 1. Right upper quadrant abdominal pain, resolved 2. Suspected biliary dysfunction PLAN: Dr. Bah spoke with the patient at the bedside regarding likely biliary dysfunction. Patient does not want to undergo any type of surgical intervention currently due to holidays. Patient may be discharged home from a surgical standpoint. She was instructed to follow a low-fat diet. She is to follow up with Dr. Bah outpatient and will schedule laparoscopic cholecystectomy in the future. Nurse practitioner note has been reviewed by physician. Signing provider agrees with the documented findings, assessment, and plan of care. Objective - Vital Signs Vital signs: Vital Signs Temp 97.6 F 10/08/19 10:59 Pulse 68 10/08/19 10:59 Resp 18 10/08/19 10:59 BP 167/78 10/08/19 10:59 Pulse Ox 98 10/08/19 10:59 Intake & Output 10/07/19 10/08/19 10/08/19 18:59 06:59 18:59 Other: Voiding Method Toilet # Voids 1 # Bowel Movements 1 - Labs CBC & Chem 7: 10/08/19 06:45 10/08/19 06:45 Labs: Abnormal Lab Results - Last 24 Hours (Table) 10/08/19 10/08/19 Range/Units 06:45 06:45 RBC 3.44 L (3.80-5.40) m/uL Hgb 10.6 L (11.4-16.0) gm/dL Hct 32.9 L (34.0-46.0) % Chloride 110 H (98-107) mmol/L Carbon Dioxide 19 L (22-30) mmol/L Creatinine 0.48 L (0.52-1.04) mg/dL Calcium 7.4 L (8.4-10.2) mg/dL Total Protein 5.9 L (6.3-8.2) g/dL Albumin 3.0 L (3.5-5.0) g/dL Microbiology - Last 24 Hours (Table) 10/06/19 19:44 Urine Culture - Final Urine,Voided
--- NOTE | 2019-10-09 14:30 | P.DS ---
Providers Date of admission: 10/08/19 08:14 Expected date of discharge: 10/09/19 Attending physician: Mitchell Martinez MD Consults: 10/06/19 19:26 Consult Physician Urgent Consulting Provider: Sukhjinder Bah Consult Reason/Comments: acute RUQ abd pain, family request Do you want consulting provider notified?: Yes Primary care physician: Lucie Tesfaye Hospital Course: discharge diagnosis right upper quadrant abdominal pain Suspected biliary dysfunction Essential hypertension iron deficiency anemia asymptomatic bacteriuria hospital course The patient is a 74-year-old female that was admitted Right upper quadrant pain, workup included aCT abdomen pelvis showing left-sided ovarian cyst, GB US showed nonobstructing right renal calculus. Previous gallbladder US 08/17 including shadowing of mobile gallstones with evidence of cholecystitis. HIDA scan was ordered buy patient was unable to complete HIDA secondary to pain + positive Dumnot sign. the patient was managed with antiemetics and analgesics therapy with Dilaudid when necessary, continue IV fluids. patient was started on empiric IV antibiotics with Levaquin for presumed UTI, urine cultures grew only genital eli and her antibiotics were subsequently discontinued. Patient was noted to anemic with a stable hemoglobin at approximate 10.6 iron studies were consistent with likely iron deficiency anemia. the patient was seen by general surgery and given options for laparoscopic cholecystectomy however the patient did not want to proceed with any surgical intervention at this time as the [place] holidays is next week. The patient was subsequently discharged home with plan to follow-up with general surgery Dr. Bah to have a possible Lap cholecystecomy due to biliary dysfunction. Discharge process took approximately 35 minutes. Focused exam Abdomen: Soft nondistended, positive Dumont sign, no rebound tenderness or guarding Patient Condition at Discharge: Stable Plan - Discharge Summary Discharge Rx Participant: Yes New Discharge Prescriptions: Continue Pantoprazole Sodium [Protonix] 40 mg PO BID Nadolol [Corgard] 40 mg PO DAILY Estradiol [Estrace] 2 mg PO DAILY Albuterol Inhaler [Ventolin Hfa Inhaler] 1 - 2 puff INHALATION RT-Q4H PRN PRN Reason: Shortness Of Breath Acetaminophen [Tylenol Extra Strength] 1,000 mg PO BID Albuterol Nebulized [Ventolin Nebulized] 2.5 mg INHALATION RT-BID Ipratropium Nebulized [Atrovent Nebulized 0.2 MG/ML] 0.5 mg INHALATION RT-BID Propylene Glycol [Systane Complete] 1 - 2 drops BOTH EYES TID PRN PRN Reason: Dry Eye(S) amLODIPine [Norvasc] 2.5 mg PO DAILY DULoxetine HCL [Cymbalta] 30 mg PO DAILY Hydrochlorothiazide [Hydrodiuril] 50 mg PO DAILY PRN PRN Reason: Edema Discharge Medication List Estradiol [Estrace] 2 mg PO DAILY 05/14/14 [History] Nadolol [Corgard] 40 mg PO DAILY 05/14/14 [History] Pantoprazole Sodium [Protonix] 40 mg PO BID 05/14/14 [History] Albuterol Inhaler [Ventolin Hfa Inhaler] 1 - 2 puff INHALATION RT-Q4H PRN 12/02/15 [History] Acetaminophen [Tylenol Extra Strength] 1,000 mg PO BID 08/16/18 [History] Albuterol Nebulized [Ventolin Nebulized] 2.5 mg INHALATION RT-BID 08/16/18 [History] Ipratropium Nebulized [Atrovent Nebulized 0.2 MG/ML] 0.5 mg INHALATION RT-BID 11/13/18 [History] Propylene Glycol [Systane Complete] 1 - 2 drops BOTH EYES TID PRN 08/16/19 [History] DULoxetine HCL [Cymbalta] 30 mg PO DAILY 10/06/19 [History] Hydrochlorothiazide [Hydrodiuril] 50 mg PO DAILY PRN 10/06/19 [History] amLODIPine [Norvasc] 2.5 mg PO DAILY 10/06/19 [History] Follow up Appointment(s)/Referral(s): Lucie Tesfaye MD [Primary Care Provider] - 1-2 days (office not answering Please call to make appointment) Sukhjinder Bah MD [STAFF PHYSICIAN] - 10/18/19 11:45 am Patient Instructions/Handouts: Cholecystitis (GEN) Discharge Disposition: HOME SELF-CARE
== END 2019-10-09 13:19 | disposition home or self-care (01) | DRG 445 ==
LOC: EC 16:13 → 4SSUR 19:25 → OBSVTOIN 10-08 08:14
PROVIDERS: ADMIT Internal Medicine; ATTEND Internal Medicine
DX: K83.9 Disease of biliary tract, unspecified (principal); E87.2 Acidosis; D50.9 Iron deficiency anemia, unspecified; K80.20 Calculus of gallbladder without cholecystitis without obstruction; I10 Essential (primary) hypertension; R82.71 Bacteriuria; N83.202 Unspecified ovarian cyst, left side; J45.909 Unspecified asthma, uncomplicated; K21.9 Gastro-esophageal reflux disease without esophagitis; N20.0 Calculus of kidney; I44.7 Left bundle-branch block, unspecified; M79.7 Fibromyalgia; M47.817 Spondylosis without myelopathy or radiculopathy, lumbosacral region; E89.0 Postprocedural hypothyroidism; I25.10 Atherosclerotic heart disease of native coronary artery without angina pectoris; M06.9 Rheumatoid arthritis, unspecified; M19.90 Unspecified osteoarthritis, unspecified site; K57.90 Diverticulosis of intestine, part unspecified, without perforation or abscess without bleeding; I25.2 Old myocardial infarction; R19.7 Diarrhea, unspecified; Z79.890 Hormone replacement therapy; Z79.899 Other long term (current) drug therapy; Z87.81 Personal history of (healed) traumatic fracture; Z86.69 Personal history of other diseases of the nervous system and sense organs; Z86.19 Personal history of other infectious and parasitic diseases; Z85.820 Personal history of malignant melanoma of skin; Z98.890 Other specified postprocedural states; Z87.442 Personal history of urinary calculi; Z90.710 Acquired absence of both cervix and uterus; Z98.1 Arthrodesis status; Z96.651 Presence of right artificial knee joint; Z96.641 Presence of right artificial hip joint; Z88.6 Allergy status to analgesic agent; Z88.1 Allergy status to other antibiotic agents; Z88.0 Allergy status to penicillin; Z88.2 Allergy status to sulfonamides; Z88.8 Allergy status to other drugs, medicaments and biological substances; Z82.49 Family history of ischemic heart disease and other diseases of the circulatory system; Z80.9 Family history of malignant neoplasm, unspecified
CPT/HCPCS: 36415; 74177; 76705; 78227; 80048; 80053; 81001; 83540; 83550; 83605; 83690; 85025; 87086; 93005; 94640; 96361; 96374; 96375; 96376; 99285

== ENCOUNTER 2019-11-01 09:06 | Day surgery (SDC) | payer MEDICARE, BC ==
[2019-10-29 16:26] VITALS: BMI 25.7
[~2019-11-01 09:06] MED LIST changes: -ALBUTEROL NEB (CONC) 2.5 MG/0.5 ML INHALATION ONE; +DEXAMETHASONE SOD PHOSPHATE 10 MG/ML 1 ML VIAL IV ONE; +HEPARIN SODIUM,PORCINE 5,000 UNIT/ML 1 ML VIAL SQ ONE; +LACTATED RINGERS 1,000 ML IV SCH; +LEVOFLOXACIN 500MG-D5W PMX 500 MG in DEXTROSE/WATER 1 100ML.BAG IVPB ONE; +LIDOCAINE 1% 20 ML VIAL (10MG/ML) FOR IV START INTRADERMA PRN; -LIDOCAINE 2% (PF) 20 MG/ML 5 ML VIAL INHALATION ONE; -LIDOCAINE VISCOUS 300 MG/15 ML CUP MUCOUS MEM ONE; +Pre Op ABX Message 1 EACH MISC MISCELLANE ONE; -SODIUM CHLORIDE 0.9% 1,000 ML IV SCH
--- NOTE | 2019-11-01 09:31 | P.GSHP ---
History of Present Illness H&P Date: 11/01/19 Chief Complaint: Right upper Quadrant pain This a 74-year-old female with chronic right upper n quadrant pain. Patient describes pain after eating greasy and fried foods. Patient presents today for laparoscopic ostectomy for chronic cholecystitis. 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, kidney stones, Last Myocardial Infarction Date:: 2012 History of Any Multi-Drug Resistant Organisms: None Reported Past Surgical History: Back Surgery, Heart Catheterization, Hysterectomy, Joint Replacement, Orthopedic Surgery Additional Past Surgical History / Comment(s): RODS & CAGES IN BACK, RT HIP REPLACEMENT, PARTIAL THYROIDECTOMY, RT KNEE REPLACEMENT, NECK SURGER- LIDIA AND CAGES Past Anesthesia/Blood Transfusion Reactions: Previous Problems w/ Anesthesia, Postoperative Nausea & Vomiting (PONV) Additional Past Anesthesia/Blood Transfusion Reaction / Comment(s): hard to wake up Smoking Status: Never smoker - Past Family History Sister(s) Family Medical History: Cancer Brother(s) Family Medical History: Cancer Mother Family Medical History: Myocardial Infarction ([place]) Additional Family Medical History / Comment(s): Mother of a MN at the age of 76yrs. Father History Unknown: Yes Medications and Allergies Home Medications Medication Instructions Recorded Confirmed Type Estradiol [Estrace] 2 mg PO DAILY 05/14/14 10/29/19 History Nadolol [Corgard] 40 mg PO DAILY 05/14/14 10/29/19 History Pantoprazole Sodium [Protonix] 40 mg PO BID 05/14/14 10/29/19 History Acetaminophen [Tylenol Extra 1,000 mg PO BID 08/16/18 10/29/19 History Strength] Albuterol Nebulized [Ventolin 2.5 mg INHALATION RT-BID 08/16/18 10/29/19 History Nebulized] Ipratropium Nebulized [Atrovent 0.5 mg INHALATION RT-BID 11/13/18 10/29/19 History Nebulized 0.2 MG/ML] Propylene Glycol [Systane Complete] 1 - 2 drops BOTH EYES TID PRN 10/24/19 01/06/20 History DULoxetine HCL [Cymbalta] 30 mg PO DAILY 10/06/19 10/29/19 History Hydrochlorothiazide [Hydrodiuril] 50 mg PO DAILY PRN 10/06/19 10/29/19 History amLODIPine [Norvasc] 2.5 mg PO DAILY 10/06/19 10/29/19 History Albuterol Sulfate [Ventolin HFA] 1 - 2 puff INHALATION Q6H PRN 10/29/19 10/29/19 History Allergies Allergy/AdvReac Type Severity Reaction Status Date / Time cephalexin monohydrate Allergy HIVES Verified 11/01/19 09:28 [From Keflex] diphenhydramine HCl Allergy SWELLING Verified 11/01/19 09:28 [From Benadryl] OF TONGUE, SOB enoxaparin [From Lovenox] Allergy Rash/Hives Verified 11/01/19 09:28 Penicillins Allergy SWELLING, Verified 11/01/19 09:28 HIVES aspirin AdvReac EXCESS Verified 11/01/19 09:28 BLEEDING sulfamethoxazole AdvReac Nausea & Verified 11/01/19 09:28 [From Bactrim] Vomiting trimethoprim [From Bactrim] AdvReac Nausea & Verified 11/01/19 09:28 Vomiting Surgical - Exam - General well developed, well nourished, no distress - Eyes PERRL - ENT normal pinna - Neck no masses - Respiratory normal expansion - Cardiovascular Rhythm: regular - Abdomen Abdomen: soft, non tender Assessment and Plan Assessment: Chronic cholecystitis. We'll perform laparoscopic cholecystectomy
[2019-11-01] MEDS ORDERED: SCOPOLAMINE 1.5MG/72HR PATCH TRANSDERM ONE (09:33)
[2019-11-01] MEDS ORDERED: ONDANSETRON 4 MG/2 ML VIAL IVP ONE (09:33)
[2019-11-01] MEDS ORDERED: BUPIVACAINE (PF) 0.25% 30 ML VIAL SQ ONE ×2 (09:39→10:05)
[2019-11-01] MEDS ORDERED: NEOSTIGMINE 1 MG/ML 10 ML VIAL ONE (09:44)
[2019-11-01] MEDS ORDERED: GLYCOPYRROLATE 0.2 MG/ML 2 ML VIAL ONE (09:44)
[2019-11-01] MEDS ORDERED: MIDAZOLAM 2 MG/2 ML VIAL ONE (09:44)
[2019-11-01] MEDS ORDERED: SUCCINYLCHOLINE CHLORIDE 100 MG/5 ML SYR IV ONE (09:44)
[2019-11-01] MEDS ORDERED: PROPOFOL 10 MG/ML 20 ML VIAL IV ONE (09:44)
[2019-11-01] MEDS ORDERED: LABETALOL 5 MG/ML VIAL MDV ONE (09:44)
[2019-11-01] MEDS ORDERED: fentaNYL (PF) 50 MCG/ML 2 ML AMP ONE (09:44)
[2019-11-01] MEDS ORDERED: LIDOCAINE 1% INJ 10MG/ML (20 ML MDV) ONE (09:44)
[2019-11-01] MEDS ORDERED: ROCURONIUM BROMIDE 10 MG/ML 10 ML VIAL IV ONE (09:44)
[2019-11-01] MEDS: CLINDAMYCIN 900 MG in DEXTROSE 5% IN WATER 50 ML IVPB ONE ×4 (10:01→10:03)
--- NOTE | 2019-11-01 10:31 | P.OP ---
Date of Procedure: 11/01/19 Preoperative Diagnosis: Cholecystitis Postoperative Diagnosis: Cholecystitis Procedure(s) Performed: Laparoscopic cholecystectomy Anesthesia: RITESH Surgeon: Sukhjinder Bah Pathology: other (Gallbladder) Condition: stable Disposition: PACU Description of Procedure: The patient was placed on the operating table. The patient received a general endotracheal tube anesthesia. The patients abdomen was prepped and draped in the usual sterile fashion. Through an infraumbilical stab incision, the fascia of the anterior abdominal wall was grasped with a pair of Kochers and then the Veress needle was placed in the peritoneal cavity. Position of the Veress needle was confirmed with positive drop test. The abdomen was then insufflated. After adequate insufflation, the 10 mm trocar was placed in the peritoneal cavity. Following this the laparoscope was placed in the peritoneal cavity. The patient was placed in the head-up, right side up position and then a 5 mm trocar was placed in the right lateral and right subcostal position under direct visualization. A 8 mm trocar was placed in the epigastric position. The gallbladder was grasped in the fundus and infundibulum. Traction on the gallbladder was placed in the lateral and the cephalad positions. The triangle of Calot was visualized.. The cystic duct was bluntly dissected until the union of the cystic duct and common bile duct was seen. A critical view of safety was achieved. The cystic duct was then divided and sealed with the Harmonic scissors. A PDS Endoloop was then placed throughout the cystic duct stump. The cystic artery divided and sealed with the Harmonic scissors. The gallbladder was then removed from the liver bed using Harmonic scissors. The gallbladder was then extracted through the epigastric port site. Operative field was checked for any bleeding spots and Harmonic scissors was used to coagulate the liver bed. The abdomen was irrigated. The trocars were removed. The skin was closed using interrupted 3-0 Vicryl suture. Dermabond dressing were applied. The patient tolerated the procedure well.
[2019-11-01] MEDS: HYDROmorphone 0.5 MG/0.5 ML SYRINGE IVP PRN ×4 (11:06→11:22)
[2019-11-01] MEDS ORDERED: METOPROLOL TARTRATE 25 MG TAB PO STA (11:33)
[2019-11-01] MEDS: SODIUM CHLORIDE 0.9% 1,000 ML IV SCH (12:52)
[2019-11-01] MEDS: HYDROcodone/APAP 5-325MG 1 EACH TAB PO PRN ×2 (12:57→18:26)
--- NOTE | 2019-11-01 13:12 | P.CRDCN ---
History of Present Illness History of present illness: HISTORY OF PRESENTING ILLNESS This is a pleasant 74-year-old female past medical history significant for hypertension, fibromyalgia, asthma and gastroesophageal reflux disease. She denies prior history of a-fib. She follows in the office with Dr. Castorena. We have been asked to see in consultation for new onset atrial fibrillation. She came to the hospital for elective outpatient for laparoscopic cholecystectomy with Dr. Arellano. During the procedure she was noted to have episodes of atrial fibrillation. She is seen and examined in the recovery room continuing to maintain atrial fibrillation with variable ventricular rates between 90 and 120. She does feel these palpitations and fluttering in her chest from time to time. She denies chest pain, dizziness, shortness of breath. She is still quite sedated and sleepy at the time of my exam. DIAGNOSTICS EKG reveals left bundle branch block with underlying atrial fibrillation. Review of old EKGs indicates left bundle branch. Current cardiac medications include amlodipine 2.5 mg daily and nadolol 40 mg daily. Most recent echocardiogram obtained 07/2019 reveals normal LV systolic function with EF 60-65%. She underwent cardiac catheterization in 2013 with a minimal nonobstructive CAD. Most recent stress test performed in the office August 2018 with a Lexiscan stress test that was negative for stress-induced ischemia. REVIEW OF SYSTEMS At the time of my exam: CONSTITUTIONAL: Denies fever or chills. CARDIOVASCULAR: Complains of palpitations. Denies chest pain, shortness of breath, orthopnea or PND. RESPIRATORY: Denies cough. GASTROINTESTINAL: Denies abdominal pain, diarrhea, constipation, nausea or v omiting. MUSCULOSKELETAL: Denies myalgias. NEUROLOGIC: Denies numbness, tingling or weakness. ENDOCRINE: Denies fatigue, weight change, polydipsia or polyurina. GENITOURINARY: Denies burning, hematuria or urgency with micturation. HEMATOLOGIC: Denies history of anemia or bleeding. PHYSICAL EXAMINATION Blood pressure 154/92 heart rate 111 afebrile and maintaining oxygen saturation on nasal cannula. CONSTITUTIONAL: No apparent distress. HEENT: Head is normocephalic. Pupils are equal, round. Sclerae anicteric. Mucous membranes of the mouth are moist. No JVD. No carotid bruit. CHEST EXAMINATION: Lungs are clear to auscultation. No chest wall tenderness is noted on palpation or with deep breathing. HEART EXAMINATION: Irregular rate and rhythm. S1, S2 heard. No murmurs, gallops or rub. ABDOMEN: Soft, nontender. Positive bowel sounds. EXTREMITIES: 2+ peripheral pulses, no lower extremity edema and no calf tenderness. NEUROLOGIC EXAMINATION: Patient is awake, alert and oriented x3. ASSESSMENT New onset paroxysmal atrial fibrillation s/p laparoscopic cholecystectomy Hypertension PLAN She did not take her nadolol this morning prior to surgery. We will resume this at 20 mg BID. Check BMP, magnesium and thyroid function. Recommend admission to the hospital for observation and ongoing telemetry monitoring. Rates are variable and may require cardizem infusion. prison anti-coagulation will need to be initiated, however given surgery today we will hold off until tomorrow if OK with Dr. Arellano. If hemodynamically stable we will initiate Eliquis 5 mg BID. Further recommendations to follow based on clinical course. Thank you kindly for this consultation. Nurse Practitioner note has been reviewed, I agree with a documented findings and plan of care. Patient was seen and examined. Past Medical History Past Medical History: Asthma, Cancer, Fibromyalgia, GERD/Reflux, Hypertension, Myocardial Infarction ([place]), Osteoarthritis (OA), Rheumatoid Arthritis (RA), Thyroid Disorder Additional Past Medical History / Comment(s): back pain, migraines ), occasional slight difficulty with swallowing, gastic ulcer, H-pylori, diverticular disease, , melanoma removed from face, kidney stones, Last Myocardial Infarction Date:: 2012 History of Any Multi-Drug Resistant Organisms: None Reported Past Surgical History: Back Surgery, Heart Catheterization, Hysterectomy, Joint Replacement, Orthopedic Surgery Additional Past Surgical History / Comment(s): RODS & CAGES IN BACK, RT HIP REPLACEMENT, PARTIAL THYROIDECTOMY, RT KNEE REPLACEMENT, NECK SURGER- LIDIA AND CAGES Past Anesthesia/Blood Transfusion Reactions: Previous Problems w/ Anesthesia, Postoperative Nausea & Vomiting (PONV) Additional Past Anesthesia/Blood Transfusion Reaction / Comment(s): hard to wake up Smoking Status: Never smoker - Past Family History Sister(s) Family Medical History: Cancer Brother(s) Family Medical History: Cancer Mother Family Medical History: Myocardial Infarction ([place]) Additional Family Medical History / Comment(s): Mother of a MS at the age of 76yrs. Father History Unknown: Yes Medications and Allergies Home Medications Medication Instructions Recorded Confirmed Type Estradiol [Estrace] 2 mg PO DAILY 05/14/14 11/01/19 History Nadolol [Corgard] 40 mg PO DAILY 05/14/14 11/01/19 History Pantoprazole Sodium [Protonix] 40 mg PO BID 05/14/14 11/01/19 History Acetaminophen [Tylenol Extra 1,000 mg PO BID 08/16/18 11/01/19 History Strength] Albuterol Nebulized [Ventolin 2.5 mg INHALATION RT-BID 08/16/18 11/01/19 History Nebulized] Ipratropium Nebulized [Atrovent 0.5 mg INHALATION RT-BID 11/13/18 11/01/19 History Nebulized 0.2 MG/ML] Propylene Glycol [Systane Complete] 1 - 2 drops BOTH EYES TID PRN 08/16/19 11/01/19 History DULoxetine HCL [Cymbalta] 30 mg PO DAILY 10/06/19 11/01/19 History Hydrochlorothiazide [Hydrodiuril] 50 mg PO DAILY PRN 10/06/19 11/01/19 History amLODIPine [Norvasc] 2.5 mg PO DAILY 10/06/19 11/01/19 History Albuterol Sulfate [Ventolin HFA] 1 - 2 puff INHALATION Q6H PRN 10/29/19 11/01/19 History Docusate [Colace] 100 mg PO BID #20 capsule 11/01/19 Rx HYDROcodone/APAP 5-325MG [Hill 1 tab PO Q6HR PRN #10 tab 11/01/19 Rx 5-325] Allergies Allergy/AdvReac Type Severity Reaction Status Date / Time cephalexin monohydrate Allergy HIVES Verified 11/01/19 09:28 [From Keflex] diphenhydramine HCl Allergy SWELLING Verified 11/01/19 09:28 [From Benadryl] OF TONGUE, SOB enoxaparin [From Lovenox] Allergy Rash/Hives Verified 11/01/19 09:28 Penicillins Allergy SWELLING, Verified 11/01/19 09:28 HIVES aspirin AdvReac EXCESS Verified 11/01/19 09:28 BLEEDING sulfamethoxazole AdvReac Nausea & Verified 11/01/19 09:28 [From Bactrim] Vomiting trimethoprim [From Bactrim] AdvReac Nausea & Verified 11/01/19 09:28 Vomiting Physical Exam Vitals: Vital Signs Temp Pulse Resp BP BP Pulse Ox 11/01/19 11:45 111 H 16 154/92 100 11/01/19 11:15 101 H 14 163/85 100 11/01/19 11:00 77 16 147/73 100 11/01/19 10:45 82 16 135/76 100 11/01/19 10:30 109 H 14 124/78 100 11/01/19 10:28 97.7 F 90 16 118/72 96 11/01/19 09:34 97.6 F 100 16 171/88 96 Intake and Output 10/31/19 11/01/19 11/01/19 22:59 06:59 14:59 Intake Total 856 Output Total 5 Balance 851 Intake: IV 856 Output: Estimated Blood Loss 5 Other: Weight 71.8 kg Results Current Medications Generic Name Dose Route Start Last Admin Trade Name Freq PRN Reason Stop Dose Admin Hydrocodone Bitart/Acetaminophen 1 each 11/01/19 11:49 Hill 5-325 PO Q6HR PRN Pain Hydromorphone HCl 0.5 mg 11/01/19 05:42 11/01/19 11:22 Dilaudid IVP 11/02/19 05:43 0.5 mg Q5M PRN Administration Pain Control Lactated Ringer's 1,000 mls @ 20 mls/hr 11/01/19 05:42 11/01/19 09:40 Lactated Ringers IV 700 mls .Q24H SAHER Administration Sodium Chloride 1,000 mls @ 50 mls/hr 11/01/19 12:00 11/01/19 12:52 Saline 0.9% IV 50 mls/hr .Q20H ASHER Administration Lidocaine HCl 0.1 ml 11/01/19 05:42 .Xylocaine 1% Inj (10mg/Ml) For Iv Start INTRADERMA PER PROTOCOL PRN IV Start Nadolol 20 mg 11/01/19 21:00 Corgard PO BID ASHER Intake and Output 10/31/19 11/01/19 11/01/19 22:59 06:59 14:59 Intake Total 856 Output Total 5 Balance 851 Intake: IV 856 Output: Estimated Blood Loss 5 Other: Weight 71.8 kg Patient Weight 11/02/19 06:59 Weight 71.8 kg
[2019-11-01] MEDS ORDERED: ONDANSETRON 4 MG/2 ML VIAL IVP PRN (13:41)
[2019-11-01 14:05] LABS: African American GFR (CKD) >90 (>60 ml/min/1.73 sqM); Anion Gap 9 mmol/L; Blood Urea Nitrogen 13 mg/dL (7-17); Calcium 8.1 mg/dL (8.4-10.2); Carbon Dioxide 22 mmol/L (22-30); Chloride 103 mmol/L (98-107); Glucose 136 mg/dL (74-99); Non-African American GFR(CKD) >90 (>60 ml/min/1.73 sqM); Potassium 4.7 mmol/L (3.5-5.1); Sodium 134 mmol/L (137-145)
[2019-11-01 14:06] LABS: Magnesium 1.6 mg/dL (1.6-2.3)
[2019-11-01] MEDS: MAGNESIUM SULFATE-D5W PMX 1 GM in DEXTROSE/WATER 1 100ML.BAG IVPB SCH ×3 (15:37→18:27)
[2019-11-01] MEDS ORDERED: ALBUTEROL NEBULIZED 2.5 MG/3 ML INHALATION PRN (16:24)
--- NOTE | 2019-11-01 16:27 | P.CONS ---
History of Present Illness - Reason for Consult Consult date: 11/01/19 hypertension Requesting physician: Sukhjinder Bah - Chief Complaint dizziness - History of Present Illness Patient is a 75-year-old female past medical history of hypertension, myocardial infarction, GERD, back pain, fibromyalgia, multiple other comorbid conditions initial side for elective cholecystectomy. Intraoperatively she will A. fib with RVR. She was seen by cardiology in the postanesthesia care unit and was started back on a beta lucía. She was subsequently admitted as observation to the cardiac unit. Patient seen and examined at bedside. She is currently feeling dizzy, it is different than her normal dizziness. She denies any overt chest pain or shortness of breath. She is feeling odd palpitations and sensations. She reports that she has had fluttering feelings and sharp chest pains over the last 2 years that are intermittent and she has discussed this with Dr. Castorena in the past. She reports that she has had diarrhea for the last 2 days but no fevers or chills. She's otherwise been in her normal state of health other than her g allbladder attacks. She did not take any of her medications this morning as directed to do so prior to surgery. This including holding her Nadalol. She is having some postoperative nausea and vomiting that has happened since receiving anesthesia. Review of Systems Pertinent positives and negatives as discussed in HPI, a complete review of systems was performed and all other systems are negative. Past Medical History Past Medical History: Asthma, Cancer, Fibromyalgia, GERD/Reflux, Hypertension, Myocardial Infarction (NV), Osteoarthritis (OA), Rheumatoid Arthritis (RA), Thyroid Disorder Additional Past Medical History / Comment(s): back pain, migraines ), occasional slight difficulty with swallowing, gastic ulcer, H-pylori, diverticular disease, , melanoma removed from face, kidney stones, Last Myocardial Infarction Date:: 2012 History of Any Multi-Drug Resistant Organisms: None Reported Past Surgical History: Back Surgery, Heart Catheterization, Hysterectomy, Joint Replacement, Orthopedic Surgery Additional Past Surgical History / Comment(s): RODS & CAGES IN BACK, RT HIP REPLACEMENT, PARTIAL THYROIDECTOMY, RT KNEE REPLACEMENT, NECK SURGER- LIDIA AND CAGES Past Anesthesia/Blood Transfusion Reactions: Previous Problems w/ Anesthesia, Postoperative Nausea & Vomiting (PONV) Additional Past Anesthesia/Blood Transfusion Reaction / Comm: hard to wake up Smoking Status: Never smoker - Past Family History Sister(s) Family Medical History: Cancer Brother(s) Family Medical History: Cancer Mother Family Medical History: Myocardial Infarction (NV) Additional Family Medical History / Comment(s): Mother of a NV at the age of 76yrs. Father History Unknown: Yes Medications and Allergies Home Medications Medication Instructions Recorded Confirmed Type Estradiol [Estrace] 2 mg PO DAILY 05/14/14 11/01/19 History Nadolol [Corgard] 40 mg PO DAILY 05/14/14 11/01/19 History Pantoprazole Sodium [Protonix] 40 mg PO BID 05/14/14 11/01/19 History Acetaminophen [Tylenol Extra 1,000 mg PO BID 08/16/18 11/01/19 History Strength] Albuterol Nebulized [Ventolin 2.5 mg INHALATION RT-BID 08/16/18 11/01/19 History Nebulized] Ipratropium Nebulized [Atrovent 0.5 mg INHALATION RT-BID 11/13/18 11/01/19 History Nebulized 0.2 MG/ML] Propylene Glycol [Systane Complete] 1 - 2 drops BOTH EYES TID PRN 08/16/19 11/01/19 History DULoxetine HCL [Cymbalta] 30 mg PO DAILY 10/06/19 11/01/19 History Hydrochlorothiazide [Hydrodiuril] 50 mg PO DAILY PRN 10/06/19 11/01/19 History amLODIPine [Norvasc] 2.5 mg PO DAILY 10/06/19 11/01/19 History Albuterol Sulfate [Ventolin HFA] 1 - 2 puff INHALATION Q6H PRN 10/29/19 11/01/19 History Docusate [Colace] 100 mg PO BID #20 capsule 11/01/19 Rx HYDROcodone/APAP 5-325MG [[place] 1 tab PO Q6HR PRN #10 tab 11/01/19 Rx 5-325] Allergies Allergy/AdvReac Type Severity Reaction Status Date / Time cephalexin monohydrate Allergy HIVES Verified 11/01/19 09:28 [From Keflex] diphenhydramine HCl Allergy SWELLING Verified 11/01/19 09:28 [From Benadryl] OF TONGUE, SOB enoxaparin [From Lovenox] Allergy Rash/Hives Verified 11/01/19 09:28 Penicillins Allergy SWELLING, Verified 11/01/19 09:28 HIVES aspirin AdvReac EXCESS Verified 11/01/19 09:28 BLEEDING sulfamethoxazole AdvReac Nausea & Verified 11/01/19 09:28 [From Bactrim] Vomiting trimethoprim [From Bactrim] AdvReac Nausea & Verified 11/01/19 09:28 Vomiting Physical Exam Osteopathic Statement: *. No significant issues noted on an osteopathic structural exam other than those noted in the History and Physical/Consult. Vitals: Vital Signs Temp Pulse Resp BP BP BP Pulse Ox 11/01/19 15:32 97.5 F L 105 H 20 141/89 95 11/01/19 13:06 96 11/01/19 12:45 97.3 F L 115 H 20 128/74 86 L 11/01/19 11:45 111 H 16 154/92 100 11/01/19 11:15 101 H 14 163/85 100 11/01/19 11:00 77 16 147/73 100 11/01/19 10:45 82 16 135/76 100 11/01/19 10:30 109 H 14 124/78 100 11/01/19 10:28 97.7 F 90 16 118/72 96 11/01/19 09:34 97.6 F 100 16 171/88 96 Intake and Output 11/01/19 11/01/19 11/01/19 06:59 14:59 22:59 Intake Total 1856 Output Total 5 Balance 1851 Intake: IV 1856 Lactated Ringers 1,000 ml 1000 @ 20 mls/hr IV .Q24H [facility] Rx#:[id number] Output: Estimated Blood Loss 5 Other: Voiding Method Toilet # Voids 1 Weight 71.8 kg General: non toxic, no distress, appears at stated age, normal weight Derm: no unusual rashes/lesions no unusual ecchymoses, warm, dry Head: atraumatic, normocephalic, symmetric Eyes: EOMI, no lid lag, anicteric sclera, pupils equal round reactive to light ENT: Nose and ears atraumatic, no thrush, no pharyngeal erythema Neck: No thyromegaly, no cervical lymphadenopathy, trachea midline, supple Mouth: no lip lesion, mucus membranes moist Cardiovascular: S1-S2 irregular, no murmur, positive posterior tibial pulse bilateral, no edema, capillary refill less than 2 seconds Lungs: Decreased breath sounds bilateral, no rhonchi, no rales , no accessory muscle use Abdominal: soft, nontender to palpation, no guarding, no appreciable organomegaly, normal bowel sounds Ext: no gross muscle atrophy, muscle strength 4-5 out of 5 in all 4 extremities grossly, no contractures, Neuro: CN II-XI grossly intact, light touch intact all 4 extremities, finger to nose within normal limits, Psych: Alert, oriented, appropriate affect Results CBC & Chem 7: 11/01/19 13:32 Labs: Abnormal Lab Results - Last 24 Hours (Table) 11/01/19 Range/Units 13:32 Sodium 134 L (137-145) mmol/L Glucose 136 H (74-99) mg/dL Calcium 8.1 L (8.4-10.2) mg/dL Chest x-ray: report reviewed Assessment and Plan Assessment: A fib with RVR - s/p Nadolol - tele - cardio recs appreciated - Echo in a.m. - TSH pending - Discussed risks and benefits of anticoagulation therapy with patient. She would be amenable to being treated with anticoagulation once okayed by surgery. Hypomagnesemia -Replace -Recheck in a.m. Chronic intermittent diarrhea -Continue outpatient management Cholecystitis -Status post cholecystectomy -Pain control -Management per surgical services Chronic conditions: Hypertension GERD Fibromyalgia Arthritis Thank you for allowing us to participate in the care of this pleasant patient. Do not hesitate to contact us with questions. Someone can be reached from the [facility] hospitalist group all hours of the day at [phone] or via [employer].
[2019-11-01] MEDS: ACETAMINOPHEN TAB 500 MG TAB PO SCH (19:55)
[2019-11-01] MEDS: NADOLOL 20 MG TAB PO SCH (19:55)
[2019-11-01] MEDS: PANTOPRAZOLE 40 MG TABLET PO SCH (19:55)
[2019-11-01] MEDS ORDERED: IPRATROPIUM 0.5 MG/2.5 ML NEBU INHALATION SCH (20:00)
[2019-11-01] MEDS: IPRATROPIUM-ALBUTEROL 3 ML NEB INHALATION SCH (20:24)
[2019-11-02 07:14] LABS: African American GFR (CKD) >90 (>60 ml/min/1.73 sqM); Anion Gap 8 mmol/L; Blood Urea Nitrogen 11 mg/dL (7-17); Calcium 8.7 mg/dL (8.4-10.2); Carbon Dioxide 24 mmol/L (22-30); Chloride 104 mmol/L (98-107); Glucose 94 mg/dL (74-99); Magnesium 2.2 mg/dL (1.6-2.3); Non-African American GFR(CKD) 89 (>60 ml/min/1.73 sqM); Potassium 4.4 mmol/L (3.5-5.1); Sodium 136 mmol/L (137-145)
[2019-11-02] MEDS: IPRATROPIUM-ALBUTEROL 3 ML NEB INHALATION SCH (08:03)
[2019-11-02] MEDS: SODIUM CHLORIDE 0.9% 1,000 ML IV SCH (08:05)
[2019-11-02] MEDS: NADOLOL 20 MG TAB PO SCH (08:33)
[2019-11-02] MEDS: PANTOPRAZOLE 40 MG TABLET PO SCH (08:33)
[2019-11-02] MEDS: ACETAMINOPHEN TAB 500 MG TAB PO SCH (08:34)
[2019-11-02 08:48] VITALS: RESP 20; TEMP 97.9
[2019-11-02] MEDS ORDERED: DULoxetine HCL 30 MG CAPSULE.DR PO SCH (09:00)
[2019-11-02] MEDS ORDERED: amLODIPine 2.5 MG TAB PO SCH (09:00)
--- NOTE | 2019-11-02 10:48 | P.DS ---
Providers Expected date of discharge: 11/02/19 Attending physician: Sukhjinder Bah Consults: 11/01/19 11:40 Consult Physician Routine Consulting Provider: Riccardo Clement Consult Reason/Comments: NEW ONSET AFIB Do you want consulting provider notified?: Already Contacted 11/01/19 11:42 Consult Physician Routine Consulting Provider: Audrey Grissom Consult Reason/Comments: MEDICAL MANAGEMENT PER DR. BAH Do you want consulting provider notified?: Yes Primary care physician: Lucie Tesfaye [facility] Course: 74-year-old female who underwent laparoscopic cholecystectomy with Dr. Bah on 11/01/2019. Patient went into A. fib with RVR. She was admitted to the hospital for further evaluation. She was evaluated by cardiology. She was started on metoprolol and Eliquis. Patient's pain is controlled with oral medications. She is tolerating diet without nausea or vomiting. Vital signs are stable. She is stable for discharge home today. See EMR for further hospital course details. Discharge diagnosis 1. Chronic cholecystitis, status post arthroscopic cholecystectomy 2. New onset A. fib Nurse practitioner note has been reviewed by physician. Signing provider agrees with the documented findings, assessment, and plan of care. Patient Condition at Discharge: Stable Plan - Discharge Summary Discharge Rx Participant: No New Discharge Prescriptions: New Docusate [Colace] 100 mg PO BID #20 capsule HYDROcodone/APAP 5-325MG [[place] 5-325] 1 tab PO Q6HR PRN #10 tab PRN Reason: Pain Apixaban [Eliquis] 5 mg PO BID #60 tab Metoprolol Tartrate 25 mg PO TID #90 tab Continue Pantoprazole Sodium [Protonix] 40 mg PO BID Estradiol [Estrace] 2 mg PO DAILY Acetaminophen [Tylenol Extra Strength] 1,000 mg PO BID Albuterol Nebulized [Ventolin Nebulized] 2.5 mg INHALATION RT-BID Ipratropium Nebulized [Atrovent Nebulized 0.2 MG/ML] 0.5 mg INHALATION RT-BID Propylene Glycol [Systane Complete] 1 - 2 drops BOTH EYES TID PRN PRN Reason: Dry Eye(S) amLODIPine [Norvasc] 2.5 mg PO DAILY DULoxetine HCL [Cymbalta] 30 mg PO DAILY Hydrochlorothiazide [Hydrodiuril] 50 mg PO DAILY PRN PRN Reason: Edema Albuterol Sulfate [Ventolin HFA] 1 - 2 puff INHALATION Q6H PRN PRN Reason: Shortness Of Breath Discontinued Nadolol [Corgard] 40 mg PO DAILY Discharge Medication List Estradiol [Estrace] 2 mg PO DAILY 05/14/14 [History] Pantoprazole Sodium [Protonix] 40 mg PO BID 05/14/14 [History] Acetaminophen [Tylenol Extra Strength] 1,000 mg PO BID 08/16/18 [History] Albuterol Nebulized [Ventolin Nebulized] 2.5 mg INHALATION RT-BID 08/16/18 [His tory] Ipratropium Nebulized [Atrovent Nebulized 0.2 MG/ML] 0.5 mg INHALATION RT-BID 11/13/18 [History] Propylene Glycol [Systane Complete] 1 - 2 drops BOTH EYES TID PRN 08/16/19 [History] DULoxetine HCL [Cymbalta] 30 mg PO DAILY 10/06/19 [History] Hydrochlorothiazide [Hydrodiuril] 50 mg PO DAILY PRN 10/06/19 [History] amLODIPine [Norvasc] 2.5 mg PO DAILY 10/06/19 [History] Albuterol Sulfate [Ventolin HFA] 1 - 2 puff INHALATION Q6H PRN 10/29/19 [History] Docusate [Colace] 100 mg PO BID #20 capsule 11/01/19 [Rx] HYDROcodone/APAP 5-325MG [[place] 5-325] 1 tab PO Q6HR PRN #10 tab 11/01/19 [Rx] Apixaban [Eliquis] 5 mg PO BID #60 tab 11/02/19 [Rx] Metoprolol Tartrate 25 mg PO TID #90 tab 11/02/19 [Rx] Follow up Appointment(s)/Referral(s): Sergey Castorena MD [STAFF PHYSICIAN] - 2 Weeks Lucie Tesfaye MD [Primary Care Provider] - 3 Days Sukhjinder Bah MD [STAFF PHYSICIAN] - 11/08/19 1:50 pm Patient Instructions/Handouts: *Surgery [facility] - Laparoscopic Cholecystectomy Discharge Instructions, A-fib (Atrial Fibrillation) (DC), Safe Use of Anticoagulants (DC) Activity/Diet/Wound Care/Special Instructions: No driving while taking [place] No lifting over 10 pounds You may shower. No soaking or tub baths Very light activity until you are reevaluated at your follow up appointment with your surgeon Low Fat/Regular diet Special Instructions: Start Eliquis 11/03/2019 Check blood pressure and heart rate once daily and make a log for Dr. Castorena
--- NOTE | 2019-11-02 11:47 | PN ---
PROGRESS NOTE Mrs. Oliver had an elective cholecystectomy laparoscopically yesterday by Dr. Bah. She was found to be in atrial fibrillation, rate controlled. Her last EKG from September revealed sinus mechanism. She is on nadolol 20 mg daily. I am going to switch her to metoprolol tartrate [address] her on Eliquis 5 mg b.i.d., which she can start from tomorrow after okayed by Dr. Bah who performed her cholecystectomy yesterday. She will follow up with Dr. Castorena in the office. Her vitals are stable, there is no JVD, S1-S2 heard normally. Irregular rhythm noted. Lungs are clear, abdomen exam revealed that there is no tenderness. Mild incisional tenderness is noted. Bowel sounds are normal. Lower extremities reveal palpable pulses. No edema. Central nervous system is normal. Patient can be discharged on metoprolol tartrate 25 mg t.i.d., Eliquis 5 b.i.d. and follow up with Dr. Castorena in one week. MMODL / IJN: [id number] /
[2019-11-02 12:29] VITALS: PULSE 104
--- NOTE | 2019-11-02 13:09 | P.PN ---
Subjective Progress Note Date: 11/02/19 (Delayed charting patient seen at 0825) Principal diagnosis: Dizziness Patient is a 75-year-old female past medical history of hypertension, myocardial infarction, GERD, back pain, fibromyalgia, multiple other comorbid conditions initial side for elective cholecystectomy. Intraoperatively she will A. fib with RVR. She was seen by cardiology in the postanesthesia care unit and was started back on a beta lucía. She was subsequently admitted as observation to the cardiac unit. Patient seen and examined at bedside. She is no longer dizzy, denies chest pain, no shortness of breath. Feeling well overall. We again discussed her atrial fibrillation and need for anticoagulation. She is okay with either Xarelto her Eliquis. She understands risks of bleeding on these medications secondary to them being blood thinners. She is having some right shoulder blade pain. Objective - Vital Signs Vital signs: Vital Signs Temp 97.9 F 11/02/19 08:00 Pulse 104 H 11/02/19 12:00 Resp 20 11/02/19 12:00 BP 118/77 11/02/19 12:00 Pulse Ox 97 11/02/19 12:00 Intake & Output 11/01/19 11/02/19 11/02/19 18:59 06:59 18:59 Intake Total 2576 360 Output Total 5 200 Balance 2571 -200 360 Weight 71.8 kg 72.8 kg Intake: IV 1856 Lactated Ringers 1,000 ml 1000 @ 20 mls/hr IV .Q24H [facility] Rx#:[id number] Oral 720 360 Output: Urine 200 Estimated Blood Loss 5 Other: Voiding Method Toilet Toilet # Voids 1 1 # Bowel Movements 1 - Exam General: non toxic, no distress, appears at stated age Derm: warm, dry Head: atraumatic, normocephalic, symmetric Eyes: EOMI, no lid lag, anicteric sclera Mouth: no lip lesion, mucus membranes moist Cardiovascular: S1S2 reg, no murmur, positive posterior tibial pulse bilateral, Lungs: CTA bilateral, no rhonchi, no rales , no accessory muscle use Abdominal: soft, +tender to palpation diffusely, no guarding, no appreciable organomegaly Ext: no gross muscle atrophy, no edema, no contractures Neuro: CN II-XI grossly intact, no focal neuro deficits Psych: Alert, oriented, appropriate affect - Labs CBC & Chem 7: 11/02/19 06:12 Labs: Abnormal Lab Results - Last 24 Hours (Table) 11/01/19 11/02/19 Range/Units 13:32 06:12 Sodium 134 L 136 L (137-145) mmol/L Glucose 136 H (74-99) mg/dL Calcium 8.1 L (8.4-10.2) mg/dL Assessment and Plan Assessment: A fib with RVR -Transition from atenolol to metoprolol. Initially called in Eliquis however her insurance prefers Xarelto inside out was quickly switched the prescription. Case discussed with cardiology who had the aforementioned recommendations. Also discussed with Kathy Tay nurse practitioner for Gen. surgery. Patient will follow up with Dr. Castorena in 1-2 weeks. I've added to her discharge summary to take her blood pressure and pulse 1 daily and make a for Dr. Castorena. Medically optimized for discharge. - she had an echo completed in Jul 2019 which had an injection fraction of 60- 65%, impaired relaxation Hypertension - continue currently medications GERD - conitnue PPI Cholecystitis -Status post cholecystectomy -Pain control -Management per surgical services Fibromyalgia Arthritis Hypomagnesemia, resolved Chronic intermittent diarrhea, resolved at this time Thank you for allowing us to participate in the care of this pleasant patient. Do not hesitate to contact us with questions. Someone can be reached from the [facility] hospitalist group all hours of the day at [phone] or via [employer].
[2019-11-02 14:06] VITALS: BP 146/72
[2019-11-02] MEDS ORDERED: METOPROLOL TARTRATE 25 MG TAB PO SCH (16:00)
== END 2019-11-02 15:20 | disposition home or self-care (01) ==
LOC: OR 09:06 → 3SCARD 11:42 → OR 11-02 15:20
PROVIDERS: ATTEND Surgery
DX: K81.1 Chronic cholecystitis (principal); J45.909 Unspecified asthma, uncomplicated; M79.7 Fibromyalgia; K21.9 Gastro-esophageal reflux disease without esophagitis; I25.10 Atherosclerotic heart disease of native coronary artery without angina pectoris; I44.7 Left bundle-branch block, unspecified; I10 Essential (primary) hypertension; I25.2 Old myocardial infarction; I48.91 Unspecified atrial fibrillation; M19.90 Unspecified osteoarthritis, unspecified site; M06.9 Rheumatoid arthritis, unspecified; E07.9 Disorder of thyroid, unspecified; G43.909 Migraine, unspecified, not intractable, without status migrainosus; Z85.820 Personal history of malignant melanoma of skin; Z87.442 Personal history of urinary calculi; Z90.710 Acquired absence of both cervix and uterus; Z96.641 Presence of right artificial hip joint; Z96.651 Presence of right artificial knee joint; K57.90 Diverticulosis of intestine, part unspecified, without perforation or abscess without bleeding; Z86.19 Personal history of other infectious and parasitic diseases; Z87.11 Personal history of peptic ulcer disease; Z80.9 Family history of malignant neoplasm, unspecified; Z82.49 Family history of ischemic heart disease and other diseases of the circulatory system; Z79.890 Hormone replacement therapy; Z79.899 Other long term (current) drug therapy; Z88.6 Allergy status to analgesic agent; Z88.1 Allergy status to other antibiotic agents; Z88.0 Allergy status to penicillin; Z88.2 Allergy status to sulfonamides; Z88.8 Allergy status to other drugs, medicaments and biological substances
CPT/HCPCS: 94640 ×2; 88304; 80048 ×2; 84443; 83735 ×2; 47562; J2250; J1100; J2710; J2405; J1956; J2001; J3010; J3475; J0330; J2704; J1170

== ENCOUNTER 2019-11-05 15:34 | Inpatient (IN) | payer MEDICARE, BC ==
[2019-11-05] MEDS ORDERED: SODIUM CHLORIDE 0.9% 1,000 ML IV STA (16:08)
[2019-11-05] MEDS ORDERED: SODIUM CHLORIDE 0.9% 500 ML 500 ML IV STA (16:08)
--- NOTE | 2019-11-05 16:16 | ED ---
General Adult HPI - General Chief complaint: Chest Pain Stated complaint: AFIB Time Seen by Provider: 11/05/19 15:45 Source: patient, RN notes reviewed, old records reviewed Mode of arrival: ambulatory Limitations: no limitations - History of Present Illness Initial comments: This is a 74-year-old female presents emergency department stating she was rec ently diagnosed with atrial fibrillation on she states she was post cholecystectomy. Patient states today she is feeling her heart racing and she's had some pressure on her chest. Patient states she's also extremely fatigued. Patient states yesterday she vomited times one and states she's been having diarrhea since her surgery. Patient denies any fever chills or cough. Patient denies any lightheadedness or dizziness. Patient states she just feels extremely weak and fatigued and finds her legs very weak when she stands. Patient denies any new or worsening abdominal pain. - Related Data Home Medications Medication Instructions Recorded Confirmed Estradiol [Estrace] 2 mg PO DAILY 05/14/14 11/05/19 Pantoprazole Sodium [Protonix] 40 mg PO BID 05/14/14 11/05/19 Acetaminophen [Tylenol Extra 1,000 mg PO BID PRN 08/16/18 11/05/19 Strength] Albuterol Nebulized [Ventolin 2.5 mg INHALATION RT-BID 08/16/18 11/05/19 Nebulized] Ipratropium Nebulized [Atrovent 0.5 mg INHALATION RT-BID 11/13/18 11/05/19 Nebulized 0.2 MG/ML] Propylene Glycol [Systane Complete] 1 - 2 drops BOTH EYES TID PRN 08/16/19 11/05/19 DULoxetine HCL [Cymbalta] 30 mg PO DAILY 10/06/19 11/05/19 amLODIPine [Norvasc] 2.5 mg PO DAILY 10/06/19 11/05/19 Albuterol Sulfate [Ventolin HFA] 1 - 2 puff INHALATION Q6H PRN 10/29/19 11/05/19 Previous Rx's Medication Instructions Recorded Metoprolol Tartrate 25 mg PO TID #90 tab 11/02/19 Rivaroxaban [Xarelto] 20 mg PO DAILY #30 tab 11/02/19 Allergies Allergy/AdvReac Type Severity Reaction Status Date / Time cephalexin monohydrate Allergy HIVES Verified 11/05/19 17:12 [From Keflex] diphenhydramine HCl Allergy SWELLING Verified 11/05/19 17:12 [From Benadryl] OF TONGUE, SOB enoxaparin [From Lovenox] Allergy Rash/Hives Verified 11/05/19 17:12 Penicillins Allergy SWELLING, Verified 11/05/19 17:12 HIVES aspirin AdvReac EXCESS Verified 11/05/19 17:12 BLEEDING sulfamethoxazole AdvReac Nausea & Verified 11/05/19 17:12 [From Bactrim] Vomiting trimethoprim [From Bactrim] AdvReac Nausea & Verified 11/05/19 17:12 Vomiting Review of Systems ROS Statement: Those systems with pertinent positive or pertinent negative responses have been documented in the HPI. ROS Other: All systems not noted in ROS Statement are negative. Past Medical History Past Medical History: Atrial Fibrillation, Asthma, Cancer, Fibromyalgia, GERD/Reflux, Hypertension, Myocardial Infarction ([place]), Osteoarthritis (OA), Rheumatoid Arthritis (RA), Thyroid Disorder Additional Past Medical History / Comment(s): back pain, migraines ), occasional slight difficulty with swallowing, gastic ulcer, H-pylori, diverticular disease, , melanoma removed from face, kidney stones, Last Myocardial Infarction Date:: 2012 History of Any Multi-Drug Resistant Organisms: None Reported Past Surgical History: Back Surgery, Cholecystectomy, Heart Catheterization, Hysterectomy, Joint Replacement, Orthopedic Surgery Additional Past Surgical History / Comment(s): RODS & CAGES IN BACK, RT HIP REPLACEMENT, PARTIAL THYROIDECTOMY, RT KNEE REPLACEMENT, NECK SURGER- LIDIA AND CAGES Past Anesthesia/Blood Transfusion Reactions: Previous Problems w/ Anesthesia, Postoperative Nausea & Vomiting (PONV) Additional Past Anesthesia/Blood Transfusion Reaction / Comment(s): hard to wake up Past Psychological History: No Psychological Hx Reported Smoking Status: Never smoker - Past Family History Sister(s) Family Medical History: Cancer Brother(s) Family Medical History: Cancer Mother Family Medical History: Myocardial Infarction ([place]) Additional Family Medical History / Comment(s): Mother of a IN at the age of 76yrs. Father History Unknown: Yes General Exam - General Exam Comments Initial Comments: GENERAL: Patient is well-developed and well-nourished. Patient is nontoxic and well- hydrated and is in mild distress. ENT: Neck is soft and supple. No significant lymphadenopathy is noted. Oropharynx is clear. Moist mucous membranes. Neck has full range of motion without eliciting any pain. EYES: The sclera were anicteric and conjunctiva were pink and moist. Extraocular movements were intact and pupils were equal round and reactive to light. Eyelids were unremarkable. PULMONARY: Unlabored respirations. Good breath sounds bilaterally. No audible rales rhonchi or wheezing was noted. CARDIOVASCULAR: Patient has an irregular heartbeat at about 95 beats a minute ABDOMEN: Soft and nontender with normal bowel sounds. SKIN: Skin is clear with no lesions or rashes and otherwise unremarkable. NEUROLOGIC: Patient is alert and oriented x3. Cranial nerves II through XII are grossly intact. Motor and sensory are also intact. Normal speech, volume and content. Symmetrical smile. MUSCULOSKELETAL: Normal extremities with adequate strength and full range of motion. LYMPHATICS: No significant lymphadenopathy is noted PSYCHIATRIC: Normal psychiatric evaluation. Limitations: no limitations Course Vital Signs 11/05/19 11/05/19 15:45 16:20 Temperature 97.3 F L Pulse Rate 130 H 98 Respiratory 18 18 Rate Blood Pressure 146/95 O2 Sat by Pulse 100 99 Oximetry Medical Decision Making - Medical Decision Making EKG shows atrial fibrillation with rapid ventricular response at 105 bpm QRS 124 QT interval 340 QTC is 459. Patient's EKG shows no ST segment elevation or depr ession. Patient's chest x-ray shows bilateral pleural effusions I spoke with Dr. Khan He agreed to admit the patient admitted the patient wrote admitting orders. - Lab Data Result diagrams: 11/05/19 16:04 11/05/19 16:04 Lab Results 11/05/19 11/05/19 11/05/19 Range/Units 16:04 16:04 16:04 WBC 9.3 (3.8-10.6) k/uL RBC 3.61 L (3.80-5.40) m/uL Hgb 11.0 L (11.4-16.0) gm/dL Hct 34.5 (34.0-46.0) % MCV 95.5 (80.0-100.0) fL MCH 30.5 (25.0-35.0) pg MCHC 32.0 (31.0-37.0) g/dL RDW 14.4 (11.5-15.5) % Plt Count 314 (150-450) k/uL Neutrophils % 67 % Lymphocytes % 20 % Monocytes % 7 % Eosinophils % 3 % Basophils % 1 % Neutrophils # 6.2 (1.3-7.7) k/uL Lymphocytes # 1.9 (1.0-4.8) k/uL Monocytes # 0.7 (0-1.0) k/uL Eosinophils # 0.3 (0-0.7) k/uL Basophils # 0.1 (0-0.2) k/uL Hypochromasia Slight PT 10.5 (9.0-12.0) sec INR 1.0 (<1.2) APTT 25.1 (22.0-30.0) sec Sodium 135 L (137-145) mmol/L Potassium 4.3 (3.5-5.1) mmol/L Chloride 103 (98-107) mmol/L Carbon Dioxide 23 (22-30) mmol/L Anion Gap 9 mmol/L BUN 15 (7-17) mg/dL Creatinine 0.63 (0.52-1.04) mg/dL Est GFR (CKD-EPI)AfAm >90 (>60 ml/min/1.73 sqM) Est GFR (CKD-EPI)NonAf 89 (>60 ml/min/1.73 sqM) Glucose 88 (74-99) mg/dL Calcium 9.0 (8.4-10.2) mg/dL Magnesium 1.7 (1.6-2.3) mg/dL Total Bilirubin 0.4 (0.2-1.3) mg/dL AST 26 (14-36) U/L ALT 17 (4-34) U/L Alkaline Phosphatase 70 (38-126) U/L Troponin I (0.000-0.034) ng/mL Total Protein 7.1 (6.3-8.2) g/dL Albumin 3.7 (3.5-5.0) g/dL 11/05/19 Range/Units 16:04 WBC (3.8-10.6) k/uL RBC (3.80-5.40) m/uL Hgb (11.4-16.0) gm/dL Hct (34.0-46.0) % MCV (80.0-100.0) fL MCH (25.0-35.0) pg MCHC (31.0-37.0) g/dL RDW (11.5-15.5) % Plt Count (150-450) k/uL Neutrophils % % Lymphocytes % % Monocytes % % Eosinophils % % Basophils % % Neutrophils # (1.3-7.7) k/uL Lymphocytes # (1.0-4.8) k/uL Monocytes # (0-1.0) k/uL Eosinophils # (0-0.7) k/uL Basophils # (0-0.2) k/uL Hypochromasia PT (9.0-12.0) sec INR (<1.2) APTT (22.0-30.0) sec Sodium (137-145) mmol/L Potassium (3.5-5.1) mmol/L Chloride (98-107) mmol/L Carbon Dioxide (22-30) mmol/L Anion Gap mmol/L BUN (7-17) mg/dL Creatinine (0.52-1.04) mg/dL Est GFR (CKD-EPI)AfAm (>60 ml/min/1.73 sqM) Est GFR (CKD-EPI)NonAf (>60 ml/min/1.73 sqM) Glucose (74-99) mg/dL Calcium (8.4-10.2) mg/dL Magnesium (1.6-2.3) mg/dL Total Bilirubin (0.2-1.3) mg/dL AST (14-36) U/L ALT (4-34) U/L Alkaline Phosphatase (38-126) U/L Troponin I <0.012 (0.000-0.034) ng/mL Total Protein (6.3-8.2) g/dL Albumin (3.5-5.0) g/dL Disposition Clinical Impression: Chest pain, A-fib, Pleural cavity effusion, Generalized weakness Disposition: ADMITTED IP TO THIS [facility] Referrals: Sergey Castorena MD [STAFF PHYSICIAN] - 1-2 days Time of Disposition: 17:29
[2019-11-05 16:47] LABS: ALT 17 U/L (4-34); AST 26 U/L (14-36); African American GFR (CKD) >90 (>60 ml/min/1.73 sqM); Albumin 3.7 g/dL (3.5-5.0); Alkaline Phosphatase 70 U/L (38-126); Anion Gap 9 mmol/L; Blood Urea Nitrogen 15 mg/dL (7-17); Carbon Dioxide 23 mmol/L (22-30); Chloride 103 mmol/L (98-107); Glucose 88 mg/dL (74-99); Magnesium 1.7 mg/dL (1.6-2.3); Non-African American GFR(CKD) 89 (>60 ml/min/1.73 sqM); Potassium 4.3 mmol/L (3.5-5.1); Sodium 135 mmol/L (137-145); Total Bilirubin 0.4 mg/dL (0.2-1.3); Total Protein 7.1 g/dL (6.3-8.2)
[2019-11-05 16:56] LABS: Basophils # (A) 0.1 k/uL (0-0.2); Basophils % (A) 1 %; Eosinophils # (A) 0.3 k/uL (0-0.7); Eosinophils % (A) 3 %; HCT 34.5 % (34.0-46.0); Hypochromasia Slight; Lymphocytes # (A) 1.9 k/uL (1.0-4.8); Lymphocytes % (A) 20 %; MCH 30.5 pg (25.0-35.0); MCV 95.5 fL (80.0-100.0); Mean Platelet Volume 7.7; Monocytes # (A) 0.7 k/uL (0-1.0); Monocytes % (A) 7 %; Neutrophils # (A) 6.2 k/uL (1.3-7.7); Neutrophils % (A) 67 %; Platelet Count 314 k/uL (150-450); RBC 3.61 m/uL (3.80-5.40); RDW 14.4 % (11.5-15.5); WBC 9.3 k/uL (3.8-10.6)
[2019-11-05 16:57] LABS: Partial Thromboplastin Time 25.1 sec (22.0-30.0); Prothrombin Time 10.5 sec (9.0-12.0)
--- NOTE | 2019-11-05 17:11 | XR ---
EXAMINATION TYPE: XR chest 2V DATE OF EXAM: 11/05/2019 COMPARISON: 08/16/2019 HISTORY: Chest pain TECHNIQUE: FINDINGS: There is mild blunting of the costophrenic angles. Heart is borderline enlarged. There are chest leads. There is no obvious heart failure. Bony thorax is intact. IMPRESSION: There are new bilateral pleural effusions compared to old exam. Borderline cardiomegaly.
[2019-11-05] MEDS ORDERED: NITROGLYCERIN SL TABS 0.4 MG TAB SUBLINGUAL PRN (17:30)
[2019-11-05] MEDS ORDERED: NITROGLYCERIN OINT 1 INCH/GM PACKET TOPICAL SCH (18:00)
[2019-11-05] MEDS ORDERED: ALBUTEROL NEBULIZED 2.5 MG/3 ML INHALATION PRN (21:36)
[2019-11-05] MEDS ORDERED: MAGNESIUM SULFATE-D5W PMX 1 GM in DEXTROSE/WATER 1 100ML.BAG IVPB ONE (21:38)
[2019-11-05] MEDS: PANTOPRAZOLE 40 MG TABLET PO SCH (22:11)
[2019-11-05] MEDS: METOPROLOL TARTRATE 50 MG TAB PO SCH (22:12)
--- NOTE | 2019-11-05 23:14 | P.HPIM ---
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 she reports that she was not feeling well for couple days with feeling some palpitations and chest discomfort, but did not think much of it, she reports occasional chest pressure and SOB, but pain did not get worse until she came to the ER , when she rates her pain at 8/10 in severity, non radiating . associated with palpitations , SOB, and dizziness. she has been having episodes where she cant stand up as she feels week. she reports that since surgery 4 days ago she has been having loose bowel movement non bloody no duane, her last loose bowel movement was tuesday morning. patient reports being compliant with her medications as prescribed , she takes xarelto. for afib. in the ED EKG showed afib with RVR, no acute st changes, troponins withing normal limits. admitted for cardiology evaluation and controlling her heart rate. she was also found to have slightly low Mg. she otherwise denies any fever, chills, or abd pain. Review of Systems Pertinent positives as noted in HPI. All other systems were reviewed and are negative Past Medical History Past Medical History: Atrial Fibrillation, Asthma, Cancer, Fibromyalgia, GE RD/Reflux, Hypertension, Myocardial Infarction ([place]), Osteoarthritis (OA), Rheumatoid Arthritis (RA), Thyroid Disorder Additional Past Medical History / Comment(s): back pain, migraines ), occasional slight difficulty with swallowing, gastic ulcer, H-pylori, diverticular disease, , melanoma removed from face, kidney stones, Last Myocardial Infarction Date:: 2012 History of Any Multi-Drug Resistant Organisms: None Reported Past Surgical History: Back Surgery, Cholecystectomy, Heart Catheterization, Hysterectomy, Joint Replacement, Orthopedic Surgery Additional Past Surgical History / Comment(s): RODS & CAGES IN BACK, RT HIP REPLACEMENT, PARTIAL THYROIDECTOMY, RT KNEE REPLACEMENT, NECK SURGER- LIDIA AND CAGES Past Anesthesia/Blood Transfusion Reactions: Previous Problems w/ Anesthesia, Postoperative Nausea & Vomiting (PONV) Additional Past Anesthesia/Blood Transfusion Reaction / Comment(s): hard to wake up Past Psychological History: No Psychological Hx Reported Smoking Status: Never smoker - Past Family History Sister(s) Family Medical History: Cancer Brother(s) Family Medical History: Cancer Mother Family Medical History: Myocardial Infarction (ME) Additional Family Medical History / Comment(s): Mother of a ME at the age of 76yrs. Father History Unknown: Yes Medications and Allergies Home Medications Medication Instructions Recorded Confirmed Type Estradiol [Estrace] 2 mg PO DAILY 05/14/14 11/05/19 History Pantoprazole Sodium [Protonix] 40 mg PO BID 05/14/14 11/05/19 History Acetaminophen [Tylenol Extra 1,000 mg PO BID PRN 08/16/18 11/05/19 History Strength] Albuterol Nebulized [Ventolin 2.5 mg INHALATION RT-BID 08/16/18 11/05/19 History Nebulized] Ipratropium Nebulized [Atrovent 0.5 mg INHALATION RT-BID 11/13/18 11/05/19 History Nebulized 0.2 MG/ML] Propylene Glycol [Systane Complete] 1 - 2 drops BOTH EYES TID PRN 08/16/19 11/05/19 History DULoxetine HCL [Cymbalta] 30 mg PO DAILY 10/06/19 11/05/19 History amLODIPine [Norvasc] 2.5 mg PO DAILY 10/06/19 11/05/19 History Albuterol Sulfate [Ventolin HFA] 1 - 2 puff INHALATION Q6H PRN 10/29/19 11/05/19 History Metoprolol Tartrate 25 mg PO TID #90 tab 11/02/19 11/05/19 Rx Rivaroxaban [Xarelto] 20 mg PO DAILY #30 tab 11/02/19 11/05/19 Rx Allergies Allergy/AdvReac Type Severity Reaction Status Date / Time cephalexin monohydrate Allergy HIVES Verified 11/05/19 17:12 [From Keflex] diphenhydramine HCl Allergy SWELLING Verified 11/05/19 17:12 [From Benadryl] OF TONGUE, SOB enoxaparin [From Lovenox] Allergy Rash/Hives Verified 11/05/19 17:12 Penicillins Allergy SWELLING, Verified 11/05/19 17:12 HIVES aspirin AdvReac EXCESS Verified 11/05/19 17:12 BLEEDING sulfamethoxazole AdvReac Nausea & Verified 11/05/19 17:12 [From Bactrim] Vomiting trimethoprim [From Bactrim] AdvReac Nausea & Verified 11/05/19 17:12 Vomiting Physical Exam Vitals: Vital Signs Temp Pulse Resp BP Pulse Ox 11/05/19 20:54 98.0 F 105 H 18 145/93 96 11/05/19 16:20 98 18 99 11/05/19 15:45 97.3 F L 130 H 18 146/95 100 Intake and Output 11/05/19 11/05/19 11/05/19 06:59 14:59 22:59 Other: Weight 71.668 kg Constitutional: No acute distress, conversant, pleasant Eyes: Anicteric sclerae, moist conjunctiva, no lid-lag Pupils equal round reactive to light ENMT: NC/AT Oropharynx clear, no erythema, exudates Neck: Supple, FROM, no masses, or JVD No carotid bruits No thyromegaly Lungs: good breath sounds throughout Clear to percussion Normal respiratory effort, no accessory muscle use Cardiovascular: Heart irregular tachycardia No murmurs, gallops, or rubs No peripheral edema Abdominal: Soft, well healed surgical scars of lap mckay Nontender, no guarding, rebound or rigidity Abdomen moving with respiration Normoactive bowel sounds No hepatomegaly, No splenomegaly No palpable mass No abdominal wall hernia noted Skin: Normal temperature, tone, texture, turgor No induration No subcutaneous nodules No rash, lesions No ulcers Extremities: No digital cyanosis No clubbing Pedal pulses intact and symmetrical Radial pulses intact and symmetrical No calf tenderness Psychiatric: Alert and oriented to person, place and time Appropriate affect fair judgement Neuro Muscles Strength 4/5 in all 4 extremities Sensation to light touch grossly present throughout Cranial nerves II-XII grossly intact No focal sensory deficits Lymphatics: no palpable cervical or supraclavicular , or inguinal lymph nodes Results CBC & Chem 7: 11/05/19 16:04 11/05/19 16:04 Labs: Abnormal Lab Results - Last 24 Hours (Table) 11/05/19 11/05/19 Range/Units 16:04 16:04 RBC 3.61 L (3.80-5.40) m/uL Hgb 11.0 L (11.4-16.0) gm/dL Sodium 135 L (137-145) mmol/L Assessment and Plan Assessment: 74 year old female with history of CAD, recently diagnosed with afib on xarelto. recently had lap mckay done 4 days ago today comes in due to chest pain and afib with RVR admitted for close monitoring , heart rate control and cardiology eval Plan: symptomatic afib with RVR chest pain , most likely 2/2 above, r/o ACS history of CAD hypertension hypomagnesemia adjusting metoprolol dose, now heart rate better controlled in the low 100, with short episodes where HR goes up to 130 replace Mg continue amlodipine continue xarelto Echo cardiogram from july 2019, showed LVEF 55-60% Monitor vital signs Cardiac monitoring Cardiology consult Trend cardiac enzymes history of asthma resume inhalers and nebulizers Preformed a thorough record review from recent hospitalization multiple hospitalization in September and early this month for lap mckay due to chronic cholecystitis CODE STATUS: Full code DVT prophylaxis: On Xarelto for A. fib Discussed with: Patient, ER, RN Anticipated length of stay less than [address]: Home A total of 60 minutes was spent on the care of this complex patient more than 50% of the time was spent in counseling and care coordination.
[2019-11-06 04:42] LABS: African American GFR (CKD) >90 (>60 ml/min/1.73 sqM); Anion Gap 8 mmol/L; Blood Urea Nitrogen 12 mg/dL (7-17); Calcium 8.3 mg/dL (8.4-10.2); Carbon Dioxide 20 mmol/L (22-30); Chloride 108 mmol/L (98-107); Cholesterol 152 mg/dL (<200); Glucose 104 mg/dL (74-99); HDL Cholesterol 52 mg/dL (40-60); LDL Cholesterol,Calculated 67 mg/dL (0-99); Magnesium 1.8 mg/dL (1.6-2.3); Non-African American GFR(CKD) >90 (>60 ml/min/1.73 sqM); Potassium 4.5 mmol/L (3.5-5.1); Sodium 136 mmol/L (137-145); Triglycerides 163 mg/dL (<150)
[2019-11-06] MEDS: IPRATROPIUM 0.5 MG/2.5 ML NEBU INHALATION SCH ×2 (07:22→19:22)
[2019-11-06] MEDS: ALBUTEROL NEBULIZED 2.5 MG/3 ML INHALATION SCH ×3 (07:22→19:22)
[2019-11-06] MEDS ORDERED: amLODIPine 2.5 MG TAB PO SCH (09:00)
[2019-11-06] MEDS: METOPROLOL TARTRATE 50 MG TAB PO SCH ×4 (09:27→20:57)
[2019-11-06] MEDS: PANTOPRAZOLE 40 MG TABLET PO SCH ×2 (09:27→20:57)
[2019-11-06] MEDS: DULoxetine HCL 30 MG CAPSULE.DR PO SCH (09:27)
[2019-11-06] MEDS: RIVAROXABAN 20 MG TAB PO SCH (09:27)
[2019-11-06] MEDS ORDERED: SODIUM CHLORIDE 0.9% 1,000 ML IV SCH (12:45)
[2019-11-06] MEDS: guaiFENesin-DM 100-10MG/5ML 10 ML CUP PO PRN ×2 (14:55→20:58)
[2019-11-06] MEDS: VERAPAMIL 40 MG TAB PO SCH ×3 (14:55→20:57)
--- NOTE | 2019-11-06 18:27 | P.PN ---
Subjective Chart was reviewed patient was seen and examined and case was discussed with the patient and her granddaughter in the room. Patient was sent from her physician of his due to Fariha brantley with RVR. Patient was recently discharged from our hospital after cholecystectomy. At that time she was postoperatively diagnosed with atrial fibrillation placed on metoprolol and Xarelto and discharged home. Patient reports that soon after she's been feeling palpitations and extreme fatigue. She not think much of it until today she was told that she is tachycardic went to emergency Department. She was given metoprolol today and verapamil was started by cardiology and now she converted to normal sinus rhythm with significant improvement in her overall condition. Nausea and reports that her energy level is back and her shortness of breath has resolved. She's feeling much better today. Patient reports to be having history of asthma following up in the pulmonary office. She states initially when the past she had a chronic bothers him cough that recently got under better control . She denies any hola shortness of breath, URI like symptoms, she feels that her abdominal incisions are healing well and she does not have any right upper quadrant pain. She tolerates her diet well without any nausea vomiting diarrhea or constipation. She denies any fever chills Objective - Vital Signs Vital signs: Vital Signs Temp 97.6 F 11/06/19 15:30 Pulse 80 11/06/19 15:30 Resp 20 11/06/19 15:30 BP 154/71 11/06/19 15:30 Pulse Ox 97 11/06/19 15:30 Intake & Output 11/05/19 11/06/19 11/06/19 18:59 06:59 18:59 Intake Total 540 2720 Output Total 600 425 Balance -60 2295 Weight 71.668 kg 71.668 kg 71.7 kg Intake: Intake, IV Titration 2200 Amount Sodium Chloride 0.9% 1, 700 000 ml @ 100 mls/hr IV . Q10H [facility] Rx#:[id number] Sodium Chloride 0.9% 1, 1000 000 ml @ 999 mls/hr IV . Q1H1M STA Rx#:[id number] Sodium Chloride 0.9% 500 500 ml 500 ml @ 999 mls/hr IV .Q31M STA Rx#:[id number] Oral 540 520 Output: Urine 600 425 Other: Voiding Method Toilet Toilet # Voids 1 - Exam Vital Signs: I have reviewed the vital signs. GENERAL: Well-nourished, Well-developed , no apparent distress, cooperative Eyes: PERRL, extraoculry movements intact, clear conjunctiva Head: : Atraumatic external nose and ears, oropharyngeal mucosa is moist without lesions or exudates Neck: Symmetric, trachea midline, No thyromegaly, no masses or neck vain pulsation, no neck rigidity CVS: +S1/S2, No murmurs or gallops. Peripheral pulses 2+ and equal in all extremities. RESP: Unlabored respiratory effort. Clear to auscultation bilaterally. Abdomen: Bowel sounds present in all 4 quadrants, Soft to palpation, Nontend er/Nondistended, No hepatosplenomegaly, no hernias or masses, no CVA tnderness Musculoskeletal: Extremities w/o deformity, No cyanosis or clubbing, no joint swelling Skin: Warm, Dry. 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 Paroxysmal A. fib with RVR Currently clinically since patient converted to normal sinus rhythm She remains and Xarelto Toprol and verapamil cardiology is following Recent echocardiogram showed normal LV function without significant valvular abnormalities Clinically no obvious triggers she is afebrile her abdominal incisions are healing well and her right upper quadrant is nontender she does not have any recent respiratory illness or fevers Patient will need to be monitored here for the next 24 hours to follow-up response to the adjustment to her home medications 2. Asthma and chronic cough Again patient's recent shortness of breath and generalized weakness more likely related to her tachycardia and A. fib She felt significant improvement after converting to normal sinus rhythm No adjustment to her current inhalers at this time I advised patient against taking albuterol nebulizer treatments around the clock when she does not have any symptoms as this can precipitate episodes of tachycardia
[2019-11-07 06:29] LABS: African American GFR (CKD) >90 (>60 ml/min/1.73 sqM); Anion Gap 8 mmol/L; Blood Urea Nitrogen 15 mg/dL (7-17); Calcium 8.5 mg/dL (8.4-10.2); Carbon Dioxide 23 mmol/L (22-30); Chloride 106 mmol/L (98-107); Glucose 101 mg/dL (74-99); Magnesium 1.7 mg/dL (1.6-2.3); Non-African American GFR(CKD) >90 (>60 ml/min/1.73 sqM); Potassium 4.3 mmol/L (3.5-5.1); Sodium 137 mmol/L (137-145)
--- NOTE | 2019-11-07 07:29 | CONS ---
CONSULTATION Lily Oliver is a 74-year-old lady, a patient of Dr. Castorena, who was recently discharged from the hospital when she had an elective cholecystectomy followed by atrial fibrillation postoperatively. This lady went to see her fisher clam in [place] and was found to have atrial fib, RVR, and was sent to the emergency room. This lady, last week, came in with what seems to be an elective laparoscopic cholecystectomy followed by episodes of atrial fibrillation in the recovery room, with a heart rate in the range of 120. Subsequently, she improved. Rate control was good, and the heart rate was in the 70 to 80 range. Her nadolol was discontinued. She was placed on metoprolol tartrate 25 mg t.i.d., Eliquis 5 mg b.i.d., and discharged to see Dr. Castorena. However, she had not seen Dr. Castorena and apparently went to see her fisher clam in the [place] area; was found to have a rapid heart rate and sent here because of atrial fib, rapid ventricular rate. She denies any chest discomfort. She does feel palpitations. Has no syncope or near-syncope. PAST MEDICAL HISTORY: Recent cholecystectomy, recent new-onset atrial fibrillation, hypertension, hyperlipidemia, fibromyalgia, rheumatoid arthritis. She is status post cardiac catheterization, but I am not sure if she has any significant documented obstructive CAD. Her last echocardiogram from July revealed normal left ventricular size and systolic function with mild pulmonary hypertension. At the time of my evaluation, she is comfortable but with activity her ventricular rate seems to go up. She also appears to be clinically somewhat dehydrated, as well. PHYSICAL EXAMINATION: Blood pressure is 128/70, pulse rate is about 110, irregular. HEENT: Unremarkable. Fundus was not examined by me. NECK: Supple. There is no JVD. I do not hear a carotid bruit. HEART: Exam reveals S1, S2 with irregular rate and rhythm. No significant murmurs. LUNGS: Reveal bilateral scattered rhonchi. ABDOMEN: Soft, nontender. LOWER EXTREMITIES: Reveal palpable pulses. No edema. CENTRAL NERVOUS SYSTEM: Normal. The EKG revealed atrial fib, nonspecific IVCD, moderate ventricular rate, nonspecific ST-T changes. IMPRESSION: 1. Atrial fibrillation with rapid ventricular rate, which is relatively new onset. 2. Status post cholecystectomy. 3. Hypertension. 4. Hyperlipidemia. RECOMMENDATIONS: I would recommend that we continue the verapamil and beta lucía combination. We will give 50 mg t.i.d. of metoprolol and continue Xarelto, which she is taking at 20 mg daily, and resume her other medications. We will optimize rate control prior to discharge. Discussed my thoughts in detail with the patient. Thank you very much for the consult. MARY / JOSEF: [id number] /
[2019-11-07] MEDS: IPRATROPIUM 0.5 MG/2.5 ML NEBU INHALATION SCH (07:40)
[2019-11-07] MEDS: ALBUTEROL NEBULIZED 2.5 MG/3 ML INHALATION SCH (07:40)
[2019-11-07] MEDS: RIVAROXABAN 20 MG TAB PO SCH (07:49)
[2019-11-07] MEDS: METOPROLOL TARTRATE 50 MG TAB PO SCH ×2 (07:49→15:03)
[2019-11-07] MEDS: DULoxetine HCL 30 MG CAPSULE.DR PO SCH (07:49)
[2019-11-07] MEDS: PANTOPRAZOLE 40 MG TABLET PO SCH (07:49)
[2019-11-07] MEDS: VERAPAMIL 40 MG TAB PO SCH ×2 (07:49→15:03)
[2019-11-07] MEDS: guaiFENesin-DM 100-10MG/5ML 10 ML CUP PO PRN (10:04)
[2019-11-07 11:09] VITALS: BP 145/70; PULSE 68; RESP 18; TEMP 98.2
--- NOTE | 2019-11-07 14:34 | P.DS ---
Providers Date of admission: 11/05/19 17:32 Attending physician: Katy Khan MD Consults: 11/05/19 17:32 Consult Physician Urgent Consulting Provider: [facility] Consult Reason/Comments: Chest pain Do you want consulting provider notified?: Yes Primary care physician: Lucie Tesfaye [facility] Course: Date of admission 11/05/1019 Date of discharge: Consultants:Kam Philippe cardiology Chief complaint generalized weakness and palpitations Admission diagnosis: A. fib with RVR Discharge diagnosis: Paroxysmal A. fib with RVR History of present illness: This is a 74-year-old female who was recently discharged from our institution after cholecystectomy. In the time she was diagnosed with paroxysmal A. fib with RVR. She was placed on Xarelto and metoprolol. On the day of admission she was visiting with her primary doctor when it was noted that she is tachycardic in the range 140. She was sent to emergency department. Over there EKG showed atrial fibrillation with RVR. Patient's symptoms included generalized weakness, fatigue, low endurance and breathlessness along with palpitations. She denied any fever, chills, malaise, abdominal pain, diarrhea, nausea or vomiting. Patient has history of asthma with chronic dry cough managed by her pulmonary doctor for many years without any significant changes in character. The cough was dry and not productive. Initial blood work was stable without any significant abnormalities and chest x- ray showed clear lungs without any infiltrates. Hospital course: Patient was initially given metoprolol and 90 fluids in the emergency department. Cardiology valid to the patient started verapamil after which patient converted to normal sinus rhythm. Patient was observed in the hospital overnight and she remained in normal sinus rhythm with stable blood pressure and tolerated metoprolol and verapamil well. On the day of discharge she was feeling much better. With normal sinus rhythm she reported significant improve ment in her energy level and resolution of her fatigue. She was not lightheaded and she was feeling sufficiently well to go home. Cardiology evaluated the patient for discharge On the day of discharge her physical examination showed following: Vital Signs: I have reviewed the vital signs. GENERAL: Awake alert and oriented 3 , no apparent distress, cooperative Eyes: PERRL, extraoculry movements intact, clear conjunctiva Head: : Atraumatic external nose and ears, oropharyngeal mucosa is moist without lesions or exudates Neck: Symmetric, trachea midline, No thyromegaly, no masses or neck vain pulsation, no neck rigidity CVS: +S1/S2, No murmurs or gallops. Peripheral pulses 2+ and equal in all extremities. RESP: Unlabored respiratory effort. Clear to auscultation bilaterally. Abdomen: Bowel sounds present in all 4 quadrants, Soft to palpation, Nontender/Nondistended, No hepatosplenomegaly, no hernias or masses, no CVA tnderness Musculoskeletal: Extremities w/o deformity, No cyanosis or clubbing, no joint swelling Skin: Warm, Dry. No rashes or lesions Neuro: occupational therapist rehab manager II-XII grossly intact, motor strenght 5/5 i upper and lower extremities, no clonus, patellar DTRs 2+ and sympetrical Psych: Awake, Alert, & Oriented (AAO) x3 Appropriate mood and affect Disposition and recommendations: Patient was started on verapamil and her metoprolol continued, prescriptions from these 2 medications were provided by cardiology service We stop her Norvasc and discharge Patient is to follow-up with cardiology and primary care service as indicated in the discharge paperwork She is to continue her Xarelto She is to have her blood pressure checked on those outpatient office visits 35 minutes spent on this discharge Plan - Discharge Summary Discharge Rx Participant: No New Discharge Prescriptions: New Verapamil [Isoptin] 40 mg PO TID #90 tablet Metoprolol Tartrate [Lopressor] 50 mg PO TID #90 tab Continue Pantoprazole Sodium [Protonix] 40 mg PO BID Estradiol [Estrace] 2 mg PO DAILY Acetaminophen [Tylenol Extra Strength] 1,000 mg PO BID PRN PRN Reason: Pain Albuterol Nebulized [Ventolin Nebulized] 2.5 mg INHALATION RT-BID Ipratropium Nebulized [Atrovent Nebulized 0.2 MG/ML] 0.5 mg INHALATION RT-BID Propylene Glycol [Systane Complete] 1 - 2 drops BOTH EYES TID PRN PRN Reason: Dry Eye(S) DULoxetine HCL [Cymbalta] 30 mg PO DAILY Albuterol Sulfate [Ventolin HFA] 1 - 2 puff INHALATION Q6H PRN PRN Reason: Shortness Of Breath Rivaroxaban [Xarelto] 20 mg PO DAILY #30 tab Discontinued amLODIPine [Norvasc] 2.5 mg PO DAILY Metoprolol Tartrate 25 mg PO TID #90 tab Discharge Medication List Estradiol [Estrace] 2 mg PO DAILY 05/14/14 [History] Pantoprazole Sodium [Protonix] 40 mg PO BID 05/14/14 [History] Acetaminophen [Tylenol Extra Strength] 1,000 mg PO BID PRN 08/16/18 [History] Albuterol Nebulized [Ventolin Nebulized] 2.5 mg INHALATION RT-BID 08/16/18 [Hi story] Ipratropium Nebulized [Atrovent Nebulized 0.2 MG/ML] 0.5 mg INHALATION RT-BID 11/13/18 [History] Propylene Glycol [Systane Complete] 1 - 2 drops BOTH EYES TID PRN 08/16/19 [History] DULoxetine HCL [Cymbalta] 30 mg PO DAILY 10/06/19 [History] Albuterol Sulfate [Ventolin HFA] 1 - 2 puff INHALATION Q6H PRN 10/29/19 [History] Rivaroxaban [Xarelto] 20 mg PO DAILY #30 tab 11/02/19 [Rx] Metoprolol Tartrate [Lopressor] 50 mg PO TID #90 tab 11/07/19 [Rx] Verapamil [Isoptin] 40 mg PO TID #90 tablet 11/07/19 [Rx] Follow up Appointment(s)/Referral(s): Sergey Castorena MD [STAFF PHYSICIAN] - 11/19/19 2:45 pm (Tuesday Prior appointment is ok to keep.) Lucie Tesfaye MD [Primary Care Provider] - 1 Week (Offices close at 1200 on TUESDAY Please call tomorrow to make a follow up appointment-offices open at 0800) Patient Instructions/Handouts: A-fib (Atrial Fibrillation) (DC), Verapamil (By mouth) Discharge Disposition: HOME SELF-CARE Plan of Treatment: Your started on new medication for atrial fibrillation: Verapamil. We will discontinue your Norvasc due to possible interference interactions between distal medications. Please follow-up with your primary care doctor regarding checking her blood pressures
--- NOTE | 2019-11-07 15:01 | PN ---
PROGRESS NOTE Mrs Oliver has converted to sinus rhythm. She is resting comfortably. Denies having any chest pain, shortness of breath or palpitation. When she goes into atrial fibrillation, she is quite symptomatic. Vitals are stable. No JVD, S1, S2 heard normally, short systolic murmur noted. Heart rhythm is regular. Lungs are clear. Abdomen and lower extremity exam unchanged. She will be discharged later on today and will see Dr. Castorena in one week. MMODL / IJN: [id number] /
== END 2019-11-07 15:15 | disposition home or self-care (01) | DRG 310 ==
LOC: EC 15:34 → 3SCARD 17:32
PROVIDERS: ADMIT Family Medicine; ATTEND Family Medicine
DX: I48.0 Paroxysmal atrial fibrillation (principal); E78.5 Hyperlipidemia, unspecified; E83.42 Hypomagnesemia; I10 Essential (primary) hypertension; I25.10 Atherosclerotic heart disease of native coronary artery without angina pectoris; I25.2 Old myocardial infarction; I27.20 Pulmonary hypertension, unspecified; J45.909 Unspecified asthma, uncomplicated; M06.9 Rheumatoid arthritis, unspecified; M79.7 Fibromyalgia; E89.0 Postprocedural hypothyroidism; Z79.01 Long term (current) use of anticoagulants; Z79.890 Hormone replacement therapy; Z79.899 Other long term (current) drug therapy; Z82.49 Family history of ischemic heart disease and other diseases of the circulatory system; Z90.49 Acquired absence of other specified parts of digestive tract; Z90.710 Acquired absence of both cervix and uterus; Z96.641 Presence of right artificial hip joint; Z96.651 Presence of right artificial knee joint; Z87.11 Personal history of peptic ulcer disease; Z85.820 Personal history of malignant melanoma of skin; K57.90 Diverticulosis of intestine, part unspecified, without perforation or abscess without bleeding; Z80.9 Family history of malignant neoplasm, unspecified; Z88.6 Allergy status to analgesic agent; Z88.1 Allergy status to other antibiotic agents; Z88.0 Allergy status to penicillin; Z88.2 Allergy status to sulfonamides
CPT/HCPCS: 36415; 71046; 80048; 80053; 80061; 83735; 84484; 85025; 85610; 85730; 93005; 94640; 94760; 96361; 96365; 99285

== ENCOUNTER → 2020-03-18 | Outpatient (CLI) | payer MEDICARE, BC | END | disposition home or self-care (01) | LOC: LABWHC1 11:06 | PROVIDERS: ATTEND Internal Medicine Rheumatology | DX: M05.79 Rheumatoid arthritis with rheumatoid factor of multiple sites without organ or systems involvement (principal) | CPT/HCPCS: 36415; 85652; 86140 ==

== ENCOUNTER 2020-05-02 18:24 | Observation (INO) | payer MEDICARE, BC ==
[2020-05-02] MEDS ORDERED: NITROGLYCERIN OINT 1 INCH/GM PACKET TOPICAL STA (18:43)
--- NOTE | 2020-05-02 18:46 | ED ---
General Adult HPI - General Chief complaint: Chest Pain Stated complaint: CIELO,chest pain Time Seen by Provider: 05/02/20 18:30 Source: patient, RN notes reviewed, old records reviewed Mode of arrival: wheelchair Limitations: no limitations - History of Present Illness Initial comments: This is a 74-year-old female who comes into the emergency department stating she's had a heart attack in the past. Patient states she's had multiple vessels did have some stenosis but not enough to put a stent in. Patient states he has high blood pressure and high cholesterol. Patient denies any diabetes and smoking. Patient states she started having chest pain at 1:00 this morning and it radiates to her back and right arm. Patient also states she's very short of breath. Patient states both chest pain and shortness of breath or worse with exertion. Patient denies any diaphoretic episodes. Patient denies any nausea. Patient denies abdominal pain patient has any vomiting diarrhea per patient denies any recent fever or chills. Patient states she has a chronic cough but it's no worsened normal. Patient denies any swelling to legs or calf tenderness. - Related Data Home Medications Medication Instructions Recorded Confirmed Estradiol [Estrace] 2 mg PO DAILY 05/14/14 11/05/19 Pantoprazole Sodium [Protonix] 40 mg PO BID 05/14/14 11/05/19 Acetaminophen [Tylenol Extra 1,000 mg PO BID PRN 08/16/18 11/05/19 Strength] Albuterol Nebulized [Ventolin 2.5 mg INHALATION RT-BID 08/16/18 11/05/19 Nebulized] Ipratropium Nebulized [Atrovent 0.5 mg INHALATION RT-BID 11/13/18 11/05/19 Nebulized 0.2 MG/ML] Propylene Glycol [Systane Complete] 1 - 2 drops BOTH EYES TID PRN 08/16/19 11/05/19 DULoxetine HCL [Cymbalta] 30 mg PO DAILY 10/06/19 11/05/19 Albuterol Sulfate [Ventolin HFA] 1 - 2 puff INHALATION Q6H PRN 10/29/19 11/05/19 Previous Rx's Medication Instructions Recorded Rivaroxaban [Xarelto] 20 mg PO DAILY #30 tab 11/02/19 Metoprolol Tartrate [Lopressor] 50 mg PO TID #90 tab 11/07/19 Verapamil [Isoptin] 40 mg PO TID #90 tablet 11/07/19 Allergies Allergy/AdvReac Type Severity Reaction Status Date / Time cephalexin monohydrate Allergy HIVES Verified 05/02/20 18:30 [From Keflex] diphenhydramine HCl Allergy SWELLING Verified 05/02/20 18:30 [From Benadryl] OF TONGUE, SOB enoxaparin [From Lovenox] Allergy Rash/Hives Verified 05/02/20 18:30 Penicillins Allergy SWELLING, Verified 05/02/20 18:30 HIVES aspirin AdvReac EXCESS Verified 05/02/20 18:30 BLEEDING sulfamethoxazole AdvReac Nausea & Verified 05/02/20 18:30 [From Bactrim] Vomiting trimethoprim [From Bactrim] AdvReac Nausea & Verified 05/02/20 18:30 Vomiting Review of Systems ROS Statement: Those systems with pertinent positive or pertinent negative responses have been documented in the HPI. ROS Other: All systems not noted in ROS Statement are negative. Past Medical History Past Medical History: Atrial Fibrillation, Asthma, Cancer, Fibromyalgia, GERD/Reflux, Hypertension, Myocardial Infarction ([place]), Osteoarthritis (OA), Rheumatoid Arthritis ([place]), Thyroid Disorder Additional Past Medical History / Comment(s): back pain, migraines ), occasional slight difficulty with swallowing, gastic ulcer, H-pylori, diverticular disease, , melanoma removed from face, kidney stones, Last Myocardial Infarction Date:: 2012 History of Any Multi-Drug Resistant Organisms: None Reported Past Surgical History: Back Surgery, Cholecystectomy, Heart Catheterization, Hysterectomy, Joint Replacement, Orthopedic Surgery Additional Past Surgical History / Comment(s): RODS & CAGES IN BACK, RT HIP REPLACEMENT, PARTIAL THYROIDECTOMY, RT KNEE REPLACEMENT, NECK SURGER- LIDIA AND CAGES. Heart cath w/ no intervention Past Anesthesia/Blood Transfusion Reactions: Previous Problems w/ Anesthesia, Postoperative Nausea & Vomiting (PONV) Additional Past Anesthesia/Blood Transfusion Reaction / Comment(s): hard to wake up Past Psychological History: No Psychological Hx Reported Smoking Status: Never smoker Past Alcohol Use History: None Reported Past Drug Use History: None Reported - Past Family History Sister(s) Family Medical History: Cancer Brother(s) Family Medical History: Cancer Mother Family Medical History: Myocardial Infarction ([place]) Additional Family Medical History / Comment(s): Mother of a [place] at the age of 76yrs. Father History Unknown: Yes General Exam - General Exam Comments Initial Comments: GENERAL: Patient is well-developed and well-nourished. Patient is nontoxic and well- hydrated and is in mild distress. ENT: Neck is soft and supple. No significant lymphadenopathy is noted. Oropharynx is clear. Moist mucous membranes. Neck has full range of motion without eliciting any pain. EYES: The sclera were anicteric and conjunctiva were pink and moist. Extraocular movements were intact and pupils were equal round and reactive to light. Eyelids were unremarkable. PULMONARY: Unlabored respirations. Good breath sounds bilaterally. No audible rales rhonchi or wheezing was noted. CARDIOVASCULAR: There is a regular rate and rhythm without any murmurs gallops or rubs. ABDOMEN: Soft and nontender with normal bowel sounds. SKIN: Skin is clear with no lesions or rashes and otherwise unremarkable. NEUROLOGIC: Patient is alert and oriented x3. Cranial nerves II through XII are grossly intact. Motor and sensory are also intact. Normal speech, volume and content. Symmetrical smile. MUSCULOSKELETAL: Normal extremities with adequate strength and full range of motion. No lower extremity swelling or edema. No calf tenderness. LYMPHATICS: No significant lymphadenopathy is noted PSYCHIATRIC: Normal psychiatric evaluation. Limitations: no limitations Course Vital Signs 05/02/20 05/02/20 05/02/20 18:28 18:30 18:39 Temperature 97.7 F Pulse Rate 85 91 Pulse Rate [ 72 Quick Sketch Artist ] Respiratory 18 18 Rate Blood Pressure 159/79 152/99 O2 Sat by Pulse 98 100 Oximetry 05/02/20 19:24 Temperature 97.3 F L Pulse Rate 78 Pulse Rate [ Quick Sketch Artist ] Respiratory 18 Rate Blood Pressure 168/89 O2 Sat by Pulse 100 Oximetry Medical Decision Making - Medical Decision Making EKG shows atrial fibrillation at 81 bpm QRS is 1:30 for QT intervals 420 QTC is 487. Patient's EKG shows no ST segment elevation or depression. Patient has left bundle branch block Chest x-ray shows no acute abnormality. Patient was started on heparin because the patient was experiencing typical unstable angina. I spoke with some physicians agreed to admit the patient admitted the patient I wrote admitting orders. - Lab Data Result diagrams: 05/02/20 18:58 05/02/20 18:58 Lab Results 05/02/20 05/02/20 05/02/20 Range/Units 18:58 18:58 18:58 WBC 6.5 (3.8-10.6) k/uL RBC 3.53 L (3.80-5.40) m/uL Hgb 10.1 L (11.4-16.0) gm/dL Hct 31.9 L (34.0-46.0) % MCV 90.3 (80.0-100.0) fL MCH 28.7 (25.0-35.0) pg MCHC 31.8 (31.0-37.0) g/dL RDW 14.9 (11.5-15.5) % Plt Count 350 (150-450) k/uL Neutrophils % 57 % Lymphocytes % 30 % Monocytes % 7 % Eosinophils % 3 % Basophils % 1 % Neutrophils # 3.7 (1.3-7.7) k/uL Lymphocytes # 1.9 (1.0-4.8) k/uL Monocytes # 0.4 (0-1.0) k/uL Eosinophils # 0.2 (0-0.7) k/uL Basophils # 0.1 (0-0.2) k/uL Hypochromasia Moderate Sodium 135 L (137-145) mmol/L Potassium 4.2 (3.5-5.1) mmol/L Chloride 108 H (98-107) mmol/L Carbon Dioxide 19 L (22-30) mmol/L Anion Gap 8 mmol/L BUN 16 (7-17) mg/dL Creatinine 0.60 (0.52-1.04) mg/dL Est GFR (CKD-EPI)AfAm >90 (>60 ml/min/1.73 sqM) Est GFR (CKD-EPI)NonAf >90 (>60 ml/min/1.73 sqM) Glucose 104 H (74-99) mg/dL Calcium 8.8 (8.4-10.2) mg/dL Magnesium 1.8 (1.6-2.3) mg/dL Total Bilirubin 0.3 (0.2-1.3) mg/dL AST 24 (14-36) U/L ALT 12 (4-34) U/L Alkaline Phosphatase 55 (38-126) U/L Troponin I <0.012 (0.000-0.034) ng/mL Total Protein 6.7 (6.3-8.2) g/dL Albumin 3.7 (3.5-5.0) g/dL Critical Care Time Critical Care Time: Yes Total Critical Care Time: 35 Disposition Clinical Impression: Unstable angina pectoris Disposition: ADMITTED IP TO THIS HOSP Referrals: Lucie Tesfaye MD [Primary Care Provider] - 1-2 days Time of Disposition: 19:54
[2020-05-02 19:07] LABS: Basophils # (A) 0.1 k/uL (0-0.2); Basophils % (A) 1 %; Eosinophils # (A) 0.2 k/uL (0-0.7); Eosinophils % (A) 3 %; HCT 31.9 % (34.0-46.0); HGB 10.1 gm/dL (11.4-16.0); Hypochromasia Moderate; Lymphocytes # (A) 1.9 k/uL (1.0-4.8); Lymphocytes % (A) 30 %; MCH 28.7 pg (25.0-35.0); MCHC 31.8 g/dL (31.0-37.0); MCV 90.3 fL (80.0-100.0); Mean Platelet Volume 7.1; Monocytes # (A) 0.4 k/uL (0-1.0); Monocytes % (A) 7 %; Neutrophils # (A) 3.7 k/uL (1.3-7.7); Neutrophils % (A) 57 %; Platelet Count 350 k/uL (150-450); RBC 3.53 m/uL (3.80-5.40); RDW 14.9 % (11.5-15.5); WBC 6.5 k/uL (3.8-10.6)
--- NOTE | 2020-05-02 19:16 | XR ---
EXAMINATION TYPE: XR chest 2V DATE OF EXAM: 05/02/2020 COMPARISON: Prior chest x-ray 11/05/2019 HISTORY: Chest pain TECHNIQUE: Frontal and lateral views of the chest are obtained. FINDINGS: There is no focal air space opacity, pleural effusion, or pneumothorax seen. Interval imp roved aeration at the lung bases. Prominent lung lines suggest underlying COPD. The cardiac silhouett e size is stable and enlarged. The osseous structures are intact, postop changes are noted in the c ervical spine. There are overlying cardiac leads. IMPRESSION: No acute cardiopulmonary process. Interval improved aeration. Cardiomegaly persists.
[2020-05-02 19:18] LABS: ALT 12 U/L (4-34); AST 24 U/L (14-36); African American GFR (CKD) >90 (>60 ml/min/1.73 sqM); Albumin 3.7 g/dL (3.5-5.0); Alkaline Phosphatase 55 U/L (38-126); Anion Gap 8 mmol/L; Blood Urea Nitrogen 16 mg/dL (7-17); Calcium 8.8 mg/dL (8.4-10.2); Carbon Dioxide 19 mmol/L (22-30); Chloride 108 mmol/L (98-107); Glucose 104 mg/dL (74-99); Magnesium 1.8 mg/dL (1.6-2.3); Non-African American GFR(CKD) >90 (>60 ml/min/1.73 sqM); Potassium 4.2 mmol/L (3.5-5.1); Sodium 135 mmol/L (137-145); Total Bilirubin 0.3 mg/dL (0.2-1.3); Total Protein 6.7 g/dL (6.3-8.2)
[2020-05-02] MEDS ORDERED: HEPARIN SODIUM,PORCINE 5,000 UNIT/ML 1 ML VIAL IV ONE (19:51)
[2020-05-02] MEDS ORDERED: NITROGLYCERIN SL TABS 0.4 MG TAB SUBLINGUAL PRN (19:55)
[2020-05-02] MEDS ORDERED: HEPARIN SOD,PORK IN 0.45% NACL 25,000 UNIT in 0.45% NACL 1 250ML.BAG IV SCH (20:00)
[2020-05-02 20:46] LABS: Partial Thromboplastin Time 25.7 sec (22.0-30.0); Prothrombin Time 10.1 sec (9.0-12.0)
[2020-05-02] MEDS ORDERED: DEXTROMETHORPHAN PO PRN (21:39)
[2020-05-02] MEDS ORDERED: PROMETHAZINE PO PRN (21:39)
[2020-05-02] MEDS ORDERED: IPRATROPIUM-ALBUTEROL 3 ML NEB INHALATION STA (21:41)
--- NOTE | 2020-05-02 22:42 | P.HPIM ---
History of Present Illness H&P Date: 05/02/20 Chief Complaint: chest pain 74 -year-old female with hypertension, moderate persistent asthma, hyperlipidemia, coronary artery disease Patient comes in due to worsening chest pain she experienced sudden onset chest pain after midnight which lasted for a few hours she didn't take any medications for that reported that pain was 7 out of 10 and felt like an alpha sitting on her chest associated some trouble breathing denies any nausea vomiting and eyes any excessive sweating or palpitations but she was experiencing some dizziness her suggested that she goes to the hospital but she refused then she fell asleep and then woke up in the morning feeling better pain was still there around 4 out of 10 in severity still nonradiating feeling get across her chest and then as the day went on pain got worse she is not sure if it's related to activity but she she is under a lot of emotional stress as her was recently diagnosed with terminal disease. And later on during the day she had another episode of severe chest pressure 8 out of 10 in severity radiating to her right arm and back associated with difficulty breathing and dizziness at that point she decided come to the hospital. Patient doesn't take any aspirin at home due to history of stomach ulcers she does not take any NSAIDs she reports that generally she takes it easy since her diagnosis with coronary artery disease 4-5 years ago when she was found to have multiple vessel disease with mild stenosis not requiring any stenting. But she reports that if she pushes herself she'll feel chest pressure and trouble breathing otherwise she is comfortable doing chores around the house but unable to climb a flight of stairs. In the ED her blood work showed anemia otherwise unremarkable, patient denies any GI bleeding EKG showed left bundle branch block and A. fib rate controlled, overall unch anged compared to prior EKG from October of this year Patient admitted under observation for cardiology evaluation Review of Systems Pertinent positives as noted in HPI. All other systems were reviewed and are negative Past Medical History Past Medical History: Atrial Fibrillation, Asthma, Cancer, Fibromyalgia, GERD/Reflux, Hypertension, Myocardial Infarction ([place]), Osteoarthritis (OA), Rheumatoid Arthritis (RA), Thyroid Disorder Additional Past Medical History / Comment(s): back pain, migraines ), occasional slight difficulty with swallowing, gastic ulcer, H-pylori, diverticular disease, , melanoma removed from face, kidney stones, Last Myocardial Infarction Date:: 2012 History of Any Multi-Drug Resistant Organisms: None Reported Past Surgical History: Back Surgery, Cholecystectomy, Heart Catheterization, Hysterectomy, Joint Replacement, Orthopedic Surgery Additional Past Surgical History / Comment(s): RODS & CAGES IN BACK, RT HIP REPLACEMENT, PARTIAL THYROIDECTOMY, RT KNEE REPLACEMENT, NECK SURGER- LIDIA AND CAGES. Heart cath w/ no intervention Past Anesthesia/Blood Transfusion Reactions: Previous Problems w/ Anesthesia, Postoperative Nausea & Vomiting (PONV) Additional Past Anesthesia/Blood Transfusion Reaction / Comment(s): hard to wake up Past Psychological History: No Psychological Hx Reported Smoking Status: Never smoker Past Alcohol Use History: None Reported Past Drug Use History: None Reported - Past Family History Sister(s) Family Medical History: Cancer Brother(s) Family Medical History: Cancer Mother Family Medical History: Myocardial Infarction ([place]) Additional Family Medical History / Comment(s): Mother of a [place] at the age of 76yrs. Father History Unknown: Yes Medications and Allergies Home Medications Medication Instructions Recorded Confirmed Type Estradiol [Estrace] 2 mg PO DAILY 05/14/14 05/02/20 History Pantoprazole Sodium [Protonix] 40 mg PO BID 05/14/14 05/02/20 History Albuterol Nebulized [Ventolin 2.5 mg INHALATION RT-BID 08/16/18 05/02/20 History Nebulized] Ipratropium Nebulized [Atrovent 0.5 mg INHALATION RT-BID 11/13/18 05/02/20 History Nebulized 0.2 MG/ML] DULoxetine HCL [Cymbalta] 30 mg PO DAILY 10/06/19 05/02/20 History Albuterol Sulfate [Ventolin HFA] 1 - 2 puff INHALATION Q6H PRN 10/29/19 05/02/20 History Acetaminophen [Tylenol Arthritis] 650 mg PO DAILY PRN 05/02/20 05/02/20 History Diclofenac Sodium Gel [Voltaren 4 gm TOPICAL QID PRN 05/02/20 05/02/20 History Gel] Glucosam/Chond/Hyalu/Cf Borate 1 tab PO DAILY 05/02/20 05/02/20 History [Move Free Joint Health Tablet] Lysine (Unknown Strength) 1 tab PO DAILY 05/02/20 05/02/20 History Nadolol [Corgard] 40 mg PO DAILY 05/02/20 05/02/20 History Promethazine/Dextromethorphan 5 ml PO Q6H PRN 05/02/20 05/02/20 History [Promethazine-Dm Syrup] Verapamil HCl [Verapamil ER] 120 mg PO W/BRKFST 05/02/20 05/02/20 History Allergies Allergy/AdvReac Type Severity Reaction Status Date / Time cephalexin monohydrate Allergy HIVES Verified 05/02/20 20:30 [From Keflex] diphenhydramine HCl Allergy SWELLING Verified 05/02/20 20:30 [From Benadryl] OF TONGUE, SOB enoxaparin [From Lovenox] Allergy Rash/Hives Verified 05/02/20 20:30 Penicillins Allergy SWELLING, Verified 05/02/20 20:30 HIVES aspirin AdvReac EXCESS Verified 05/02/20 20:30 BLEEDING sulfamethoxazole AdvReac Nausea & Verified 05/02/20 20:30 [From Bactrim] Vomiting trimethoprim [From Bactrim] AdvReac Nausea & Verified 05/02/20 20:30 Vomiting Physical Exam Vitals: Vital Signs Temp Pulse Pulse Resp BP Pulse Ox 05/02/20 19:24 97.3 F L 78 18 168/89 100 05/02/20 18:39 72 05/02/20 18:30 91 18 152/99 100 05/02/20 18:28 97.7 F 85 18 159/79 98 Intake and Output 05/02/20 05/02/20 05/02/20 06:59 14:59 22:59 Other: Weight 68.039 kg Constitutional: No acute distress, conversant, pleasant Eyes: Anicteric sclerae, moist conjunctiva, no lid-lag Pupils equal round reactive to light ENMT: NC/AT Oropharynx clear, no erythema, or exudates Neck: Supple, FROM, no masses, or JVD No carotid bruits No thyromegaly Lungs: Clear to auscultation Clear to percussion Normal respiratory effort, no accessory muscle use Cardiovascular: Heart regular in rate and rhythm, No murmurs, gallops, or rubs No peripheral edema Abdominal: Soft Nontender, no guarding, rebound or rigidity Abdomen moving with respiration Normoactive bowel sounds No hepatomegaly, No splenomegaly No palpable mass No abdominal wall hernia noted Skin: Normal temperature, tone, texture, turgor No induration No subcutaneous nodules No rash, lesions No ulcers Extremities: No digital cyanosis No clubbing Pedal pulses intact and symmetrical Radial pulses intact and symmetrical No calf tenderness Psychiatric: Alert and oriented to person, place and time Appropriate affect fair judgement Neuro Muscles Strength 5/5 in all 4 extremities Sensation to light touch grossly present throughout Cranial nerves II-XII grossly intact No focal sensory deficits Lymphatics: no palpable cervical or supraclavicular , or inguinal lymph nodes Results CBC & Chem 7: 05/02/20 18:58 05/02/20 18:58 Labs: Abnormal Lab Results - Last 24 Hours (Table) 05/02/20 05/02/20 Range/Units 18:58 18:58 RBC 3.53 L (3.80-5.40) m/uL Hgb 10.1 L (11.4-16.0) gm/dL Hct 31.9 L (34.0-46.0) % Sodium 135 L (137-145) mmol/L Chloride 108 H (98-107) mmol/L Carbon Dioxide 19 L (22-30) mmol/L Glucose 104 H (74-99) mg/dL Assessment and Plan Assessment: Unstable angina Cardiac workup Monitor troponins every 3 hours Cardiology consult Patient started on heparin drip Nitro paste Pain control Chronic A. fib, not on anticoagulation, rate controlled Patient is not aware of this diagnosis Old EKG from October 2019 also showed same pattern compared to this one Defer to cardiology input regarding anticoagulation Chronic conditions Hyperlipidemia resume home meds Hypertension resume home meds Moderate persistent asthma patient uses updraft albuterol and ipratropium inhalers twice a day Chronic GERD on PPI Chronic anemia, denies any GI bleeding, hemoglobin stable, patient claims to be up-to-date on cancer screening with most recent colonoscopy without abnormalities as far as she knows CODE STATUS: Full code DVT prophylaxis: On heparin drip for ACS Discussed with: Patient, ER, RN Anticipated length of stay less than [address]: Home A total of 75 minutes was spent on the care of this complex patient more than 50% of the time was spent in counseling and care coordination.
[2020-05-02] MEDS: PANTOPRAZOLE 40 MG TABLET PO SCH (22:55)
[2020-05-03] MEDS: NITROGLYCERIN OINT 1 INCH/GM PACKET TOPICAL SCH ×5 (01:03→23:01)
[2020-05-03] MEDS ORDERED: HEPARIN SODIUM,PORCINE 5,000 UNIT/ML 1 ML VIAL IV STA (03:13)
[2020-05-03] MEDS: IPRATROPIUM-ALBUTEROL 3 ML NEB INHALATION SCH ×2 (05:03→19:10)
[2020-05-03] MEDS: ACETAMINOPHEN TAB 325 MG TAB PO PRN ×2 (05:19→17:02)
[2020-05-03 05:53] LABS: Cholesterol 163 mg/dL (<200); HDL Cholesterol 64 mg/dL (40-60); LDL Cholesterol,Calculated 59 mg/dL (0-99); Triglycerides 199 mg/dL (<150)
[2020-05-03] MEDS: DULoxetine HCL 30 MG CAPSULE.DR PO SCH (08:07)
[2020-05-03] MEDS: NADOLOL 20 MG TAB PO SCH (08:07)
[2020-05-03] MEDS: ASPIRIN 325 MG TAB PO SCH (08:07)
[2020-05-03] MEDS: PANTOPRAZOLE 40 MG TABLET PO SCH ×2 (08:07→20:01)
[2020-05-03] MEDS: VERAPAMIL SR 120 MG TABLET.ER PO SCH (08:07)
[2020-05-03] MEDS: LISINOPRIL 10 MG TAB PO SCH (09:51)
--- NOTE | 2020-05-03 10:14 | CONS ---
CONSULTATION CHIEF COMPLAINT: Chest pain. HISTORY OF PRESENT ILLNESS: Lily is a 74-year-old lady with history of hypertension, COPD, who presented to the hospital complaining of chest pain. She describes it as precordial chest pressure, moderate intensity, sudden onset, that lasted for several hours. It was 7/10 intensity associated with sweating and she also felt somewhat nauseous. This pain persisted for quite some time and she came to the emergency room where she got admitted. The patient apparently underwent cardiac catheterization 4 to 5 years ago and was told she has mild coronary artery disease. She has history of atrial fibrillation, was on anticoagulant at last admission that has been stopped for unclear reasons. PAST MEDICAL HISTORY: Significant for persistent atrial fibrillation, hypertension, COPD. MEDICATIONS: Medications at home include verapamil, Corgard, Voltaren, Cymbalta, Protonix, Atrovent, Ventolin. ALLERGIES: Allergic to KEFLEX, BENADRYL, LOVENOX, PENICILLIN, ASPIRIN, BACTRIM. FAMILY HISTORY: Negative for premature coronary artery disease. SOCIAL HISTORY: Negative for current smoking, EtOH abuse, or drug abuse. REVIEW OF SYSTEMS: HEENT is unremarkable. Cardiac as described above. Respiratory as described above. GI negative. negative. Allergy and immunology negative. Skin negative. Musculoskeletal negative. Endocrine, derm and hematological negative. Constitutional is negative. Oncological negative. MANUFACTURING TECHNOLOGIST negative. The rest of the system review is not relevant. PHYSICAL EXAM: Patient is afebrile. Heart rate is 80 beats per minute. Blood pressure is 180/85, respiratory rate 18. There is no jugular venous distention. Carotid upstroke is normal. There is no bruit. Chest exam reveals good air entry bilaterally. Heart exam reveals first and second heart sounds. An S4 is heard. Abdomen is soft. Exam of extremities did not reveal any edema. Peripheral pulses are palpable. EKG shows atrial fibrillation with left bundle branch block. LABS: Show a potassium of 4.2, creatinine of 0.6. Tropes are negative. LDL cholesterol is 59, hemoglobin is 10.1, platelet count is 350. ASSESSMENT ON LIMB MOVEMENT: 1. Unstable angina. 2. Persistent atrial fibrillation with controlled ventricular rate. 3. Hypertension. PLAN: I advised the patient to undergo cardiac catheterization to rule out coronary artery disease. She has been explained of risks, benefits and alternatives. If necessary, she will undergo angioplasty. Her blood pressure is poorly controlled. I am going to add lisinopril 10 mg to her current medical regimen. MMODL / MAMADOUN: [id number] /
[2020-05-03] MEDS ORDERED: LIDOCAINE 1% INJ 10MG/ML (20 ML MDV) ONE (10:30)
[2020-05-03] MEDS ORDERED: IV FLUID CONTINUATION 1,000 ML IV ONE (10:30)
[2020-05-03] MEDS ORDERED: fentaNYL (PF) 50 MCG/ML 2 ML AMP ONE (10:34)
[2020-05-03] MEDS ORDERED: fentaNYL (PF) 50 MCG/ML 2 ML AMP IVP ONE (10:41)
[2020-05-03] MEDS ORDERED: MIDAZOLAM 2 MG/2 ML VIAL IVP ONE (10:41)
[2020-05-03] MEDS ORDERED: LIDOCAINE 1% INJ 10MG/ML (20 ML MDV) SQ ONE (10:46)
[2020-05-03] MEDS ORDERED: IOPAMIDOL-370 100ML BTL INJ ONE (10:57)
[2020-05-03] MEDS ORDERED: RX INFO: IV CONTRAST WAS GIVEN 1 EACH MISC MISCELLANE PRN (11:06)
--- NOTE | 2020-05-03 11:44 | CC ---
CARDIAC CATHETERIZATION REPORT INDICATION: Unstable angina. PROCEDURE NOTE: After obtaining informed consent, left heart catheterization and coronary angiogram via the right femoral artery using standard Bryan catheters. Patient tolerated the procedure well without any obvious immediate complications. The patient received moderate conscious sedation. Total sedation time was 14 minutes. Femoral angiogram done and angio seal deployed for hemostasis FINDINGS: HEMODYNAMICS: Left ventricular end-diastolic pressure is 16 mm. There is no significant gradient across the aortic valve. LEFT VENTRICULOGRAM: Is not performed ANGIOGRAPHIC DATA: LEFT MAIN CORONARY ARTERY: Left main coronary artery is a normal-sized vessel and is free of stenosis. Divides into left anterior descending coronary artery and circumflex coronary artery. Circumflex coronary artery and its branches are free of significant stenosis. The LAD shows a moderate area of stenosis in the proximal part which is heavily calcified, 40 to 50% stenosis at its worst. RIGHT CORONARY ARTERY: The right coronary artery is small nondominant vessel and is free of significant stenosis. CONCLUSIONS: A 40 to 50% stenosis involving proximal LAD which is heavily calcified. PLAN: Will treat the patient with optimal medical therapy. She came in with atrial fibrillation. I am going to start her back on the Eliquis and Xarelto that she was on. I will watch her overnight and discharge her home tomorrow. We will consider an outpatient stress test and if she has ischemia in LAD distribution, may need stenting. MMODL / IJN: [id number] / CUONG
[2020-05-03] MEDS ORDERED: IPRATROPIUM-ALBUTEROL 3 ML NEB INHALATION PRN (12:01)
--- NOTE | 2020-05-03 15:19 | P.PN ---
Subjective Progress Note Date: 05/03/20 The patient is a 74-year-old female with a PMH of A. fib, hypertension, coronary artery disease, rheumatoid arthritis, hypothyroidism who had presented to the ED with complaints of chest discomfort. She was admitted for unstable angina and cardiology was consulted. The patient was recommended for left heart catheterization which revealed a 40-50% stenosis involving the proximal LAD. The patient was seen and examined at the bedside at 8 AM on 05/03 prior to her cardiac catheterization. She reported improvement in her chest discomfort, 4 out of 10 at the time of interview. She denied any additional complaints. Denied shortness of breath, palpitations, nausea, vomiting, fever, chills, cough. Objective - Vital Signs Vital signs: Vital Signs Temp 97.8 F 05/03/20 08:00 Pulse 65 05/03/20 13:51 Resp 14 05/03/20 13:51 BP 133/66 05/03/20 13:51 Pulse Ox 95 05/03/20 13:51 Intake & Output 05/02/20 05/03/20 05/03/20 18:59 06:59 18:59 Intake Total 936.202 300 Balance 936.202 300 Weight 68.039 kg 68.039 kg Intake: IV 300 Intake, IV Titration 56.202 Amount Heparin Sod,Pork in 0.45% 56.202 NaCl 25,000 unit In 0.45 % NaCl 1 250ml.bag @ 12 UNITS/KG/HR 8.165 mls/hr IV .Q24H ASHER Rx#: [id number] Oral 880 Other: Voiding Method Toilet Toilet # Voids 1 2 - Exam General: Non-toxic, in no acute distress, appears stated age, normal weight HEENT: NC/AT, anicteric sclerae, moist conjunctiva, no lid-lag, PERRLA Cardiovascular: S1/S2 wnl, no murmurs, rubs, or gallops Lungs: Clear to auscultation, normal respiratory effort, no accessory muscle use Abdominal: Soft, non-tender, non-distended, no guarding, rebound, or rigidity Skin: Warm, dry Extremities: No edema or contractures Psychiatric: Alert and oriented to person, place and time, appropriate affect Neuro: CN II-XII grossly intact, Strength 5/5 in all 4 extremities, Speech intact, Sensation to light touch grossly intact throughout - Labs CBC & Chem 7: 05/02/20 18:58 05/02/20 18:58 Labs: Abnormal Lab Results - Last 24 Hours (Table) 05/02/20 05/02/20 05/02/20 Range/Units 18:58 18:58 18:58 RBC 3.53 L (3.80-5.40) m/uL Hgb 10.1 L (11.4-16.0) gm/dL Hct 31.9 L (34.0-46.0) % APTT (22.0-30.0) sec Sodium 135 L (137-145) mmol/L Chloride 108 H (98-107) mmol/L Carbon Dioxide 19 L (22-30) mmol/L Glucose 104 H (74-99) mg/dL Triglycerides 199 H (<150) mg/dL HDL Cholesterol 64 H (40-60) mg/dL 05/03/20 05/03/20 Range/Units 01:45 09:01 RBC (3.80-5.40) m/uL Hgb (11.4-16.0) gm/dL Hct (34.0-46.0) % APTT 42.4 H 84.9 H (22.0-30.0) sec Sodium (137-145) mmol/L Chloride (98-107) mmol/L Carbon Dioxide (22-30) mmol/L Glucose (74-99) mg/dL Triglycerides (<150) mg/dL HDL Cholesterol (40-60) mg/dL Assessment and Plan Plan: Chest pain, status post left heart catheterization showing 40-50% stenosis of the LAD -Cardiology has recommended optimal medical therapy -Patient was started on Eliquis for her A. fib -Cardiology once for the patient to be watched overnight with likely discharge in the a.m. -Continue cardiac monitoring Chronic A. fib -Started on Eliquis Chronic conditions: Hypertension, hyperlipidemia, asthma, GERD -Continue with home meds DVT prophylaxis -Full Code Discussed with: Patient Anticipated discharge date: 05/[address]: Home A total of 35 minutes was spent on the care of this complex patient more than 50% of the time was spent in counseling and care coordination.
[2020-05-03] MEDS: APIXABAN 5 MG TAB PO SCH (20:01)
[2020-05-04] MEDS: NITROGLYCERIN OINT 1 INCH/GM PACKET TOPICAL SCH (06:54)
[2020-05-04 07:40] VITALS: BP 143/70; RESP 14; TEMP 98.6
[2020-05-04] MEDS: APIXABAN 5 MG TAB PO SCH (07:40)
[2020-05-04] MEDS: DULoxetine HCL 30 MG CAPSULE.DR PO SCH (07:40)
[2020-05-04] MEDS: LISINOPRIL 10 MG TAB PO SCH (07:40)
[2020-05-04] MEDS: VERAPAMIL SR 120 MG TABLET.ER PO SCH (07:40)
[2020-05-04] MEDS: ASPIRIN 325 MG TAB PO SCH (07:40)
[2020-05-04] MEDS: PANTOPRAZOLE 40 MG TABLET PO SCH (07:40)
[2020-05-04] MEDS: NADOLOL 20 MG TAB PO SCH (07:40)
[2020-05-04] MEDS: ACETAMINOPHEN TAB 325 MG TAB PO PRN (07:44)
--- NOTE | 2020-05-04 08:00 | ECHOF ---
Referral Reason:chest pain MEASUREMENTS -------- HEIGHT: 162.6 cm WEIGHT: 68.0 kg BP: 180/85 RVIDd: 4.2 cm (< 3.3) IVSd: 1.0 cm (0.6 - 1.1) LVIDd: 4.4 cm (3.9 - 5.3) LVPWd: 1.2 cm (0.6 - 1.1) IVSs: 1.3 cm LVIDs: 3.3 cm LVPWs: 1.8 cm LAESV Index (A-L): 41.06 ml/m Ao Diam: 2.7 cm (2.0 - 3.7) AV Cusp: 1.8 cm (1.5 - 2.6) MV EXCURSION: 13.536 mm (> 18.000) MV EF SLOPE: 54 mm/s (70 - 150) EPSS: 0.9 cm RAP: 20.00 mmHg RVSP: 74.31 mmHg FINDINGS -------- This was a technically adequate study. The left ventricular size is normal. Left ventricular wall thickness is normal. Overall left vent ricular systolic function is mildly impaired with, an EF between 45 - 50 %. Septal wall motion is d elayed, and consistent with conduction delay/bundle branch block. The right ventricle is moderately enlarged. LA is moderately dilated 34-39 ml/m2 The right atrium is moderately enlarged. Interatrial and interventricular septum intact. The aortic valve is trileaflet and appears structurally normal. There is no evidence of aortic regu rgitation. There is no evidence of aortic stenosis. Moderate mitral regurgitation is present. Severe tricuspid regurgitation present. There is severe pulmonary hypertension. The right ventric ular systolic pressure, as measured by Doppler, is 74.31mmHg. There is no pulmonic regurgitation present. The aortic root size is normal. The inferior vena cava is dilated with poor inspiratory collapse which is consistent with estimated r ight atrial pressure of 20 mmHg. There is no pericardial effusion. CONCLUSIONS -------- 1. This was a technically adequate study. 2. The left ventricular size is normal. 3. Left ventricular wall thickness is normal. 4. Overall left ventricular systolic function is mildly impaired with, an EF between 45 - 50 %. 5. Septal wall motion is delayed, and consistent with conduction delay/bundle branch block. 6. The right ventricle is moderately enlarged. 7. LA is moderately dilated 34-39 ml/m2 8. The right atrium is moderately enlarged. 9. Interatrial and interventricular septum intact. 10. The aortic valve is trileaflet and appears structurally normal. 11. There is no evidence of aortic regurgitation. 12. There is no evidence of aortic stenosis. 13. Moderate mitral regurgitation is present. 14. Severe tricuspid regurgitation present. 15. There is severe pulmonary hypertension. 16. The right ventricular systolic pressure, as measured by Doppler, is 74.31mmHg. 17. There is no pulmonic regurgitation present. 18. The aortic root size is normal. 19. The inferior vena cava is dilated with poor inspiratory collapse which is consistent with estimat ed right atrial pressure of 20 mmHg. 20. There is no pericardial effusion. FREEZER PERSON: Jacqueline Field RDCS
[2020-05-04] MEDS: IPRATROPIUM-ALBUTEROL 3 ML NEB INHALATION SCH (08:10)
[2020-05-04 08:13] VITALS: PULSE 80
--- NOTE | 2020-05-04 08:50 | PN ---
PROGRESS NOTE 74-year-old lady that is admitted to hospital with unstable angina and underwent cardiac catheterization by me, which showed moderate disease involving proximal LAD and she was advised medical therapy. The patient was in atrial fibrillation on presentation and I started her on Eliquis. An echocardiogram I performed yesterday shows an enlarged right ventricle and pulmonary hypertension. I reviewed her previous echo. The right ventricle was not significantly enlarged. She did have pulmonary hypertension, but on the current study, it seemed to have worsened. Her pulmonary hypertension could be related to the aspirin and COPD that she had. However, I am going to obtain a D-dimer on her to rule out pulmonary embolism. In any event, she is already on Eliquis. This morning, patient appears comfortable at rest and denies any symptoms. She denies chest pain or difficulty in breathing. EXAM: Heart rate is 80 beats per minute. Blood pressure is 140/70. Respiratory rate is 18. O2 saturation is 97% on room air. There is no jugular venous distention. Chest exam reveals good air entry bilaterally. Heart exam reveals first and second heart sounds. No gallop. No murmur. Abdomen is soft, nontender. Exam of extremities did not reveal any edema. Peripheral pulses are felt. Rt groin is free of echymosis, hematoma or pulsatile masses Labs show that the potassium is 4.2. Creatinine is 0.6. Troponins are negative. Hemoglobin is 10.1. ASSESSMENT: 1. Unstable angina status post cardiac catheterization and patient was advised medical therapy. 2. Persistent atrial fibrillation. Patient is on Eliquis. 3. Abnormal 2D echo. I will obtain a D-dimer to complete her workup. Even if she had pulmonary embolism, she is on Eliquis, oxygenating well. Stable hemodynamically. If the D-dimer comes back negative, she will be discharged home and follow up with Dr. Castorena, her primary mineral technologist and will have a Lexiscan in the outpatient set up and if she has ischemia in LAD distribution, may need an angioplasty. MMODL / IJN: [id number] / MTDOralia
--- NOTE | 2020-05-04 10:46 | P.DS ---
Providers Date of admission: 05/02/20 19:55 Expected date of discharge: 05/04/20 Attending physician: Mitchell Martinez MD Consults: 05/02/20 19:55 Consult Physician Urgent Consulting Provider: [facility] Consult Reason/Comments: Unstable angina Do you want consulting provider notified?: Yes Primary care physician: [facility] Course: The patient is a 74-year-old female with a PMH of A. fib, hypertension, coronary artery disease, rheumatoid arthritis, hypothyroidism who had presented to the ED with complaints of chest discomfort. The patient had reported 7 out of 10 substernal pressure-like discomfort with associated shortness of breath. She was admitted for unstable angina and cardiology was consulted. Cardiology recommended left heart catheterization which revealed a 40-50% stenosis involving the proximal LAD. Optical medical therapy was advised by cardiology and the patient is to follow as an outpatient with primary steward/stewardess Dr. Castorena to undergo a Lexiscan. The patient was also started on Eliquis for her chronic A. fib. An echocardiogram was performed and revealed mildly impaired left ventricular systolic function with an EF of 45-50% along with moderate mitral regurg and severe tricuspid regurg with severe pulmonary hypertension. The patient was seen and evaluated at the bedside on the day of discharge. She reported feeling well and denied any additional chest discomfort or shortness of breath. She denied any additional complaints including fever, chills, nausea, vomiting, diaphoresis, or cough. The patient was advised that if her chest pain recurs or changes, that she should return to the ED. She was also advised to follow-up with her primary care provider along with her steward/stewardess after discharge. The patient is stable and ready for discharge to home. Physical Examination General: Non-toxic, in no acute distress, appears stated age, normal weight HEENT: NC/AT, anicteric sclerae, moist conjunctiva, no lid-lag, PERRLA Cardiovascular: S1/S2 wnl, no murmurs, rubs, or gallops Lungs: Clear to auscultation, normal respiratory effort, no accessory muscle use Abdominal: Soft, non-tender, non-distended, no guarding, rebound, or rigidity Skin: Warm, dry Extremities: No edema or contractures Psychiatric: Alert and oriented to person, place and time, appropriate affect Neuro: CN II-XII grossly intact, Strength 5/5 in all 4 extremities, Speech intact, Sensation to light touch grossly intact throughout Discharge diagnosis: Unstable angina status post cardiac catheterization revealing 40-50% stenosis involving the proximal LAD; moderate mitral regurgitation; severe tricuspid regurgitation; severe pulmonary hypertension; persistent A. fib on Eliquis; hypertension, hyperlipidemia, mild intermittent asthma, chronic GERD A total of 35 minutes of time were spent preparing this complex discharge summary. Patient Condition at Discharge: Stable Plan - Discharge Summary Discharge Rx Participant: No New Discharge Prescriptions: New Apixaban [Eliquis] 5 mg PO BID #60 tab Lisinopril [Zestril] 10 mg PO DAILY #30 tab Continue Pantoprazole Sodium [Protonix] 40 mg PO BID Estradiol [Estrace] 2 mg PO DAILY Albuterol Nebulized [Ventolin Nebulized] 2.5 mg INHALATION RT-BID Ipratropium Nebulized [Atrovent Nebulized 0.2 MG/ML] 0.5 mg INHALATION RT-BID DULoxetine HCL [Cymbalta] 30 mg PO DAILY Albuterol Sulfate [Ventolin HFA] 1 - 2 puff INHALATION Q6H PRN PRN Reason: Shortness Of Breath Lysine (Unknown Strength) 1 tab PO DAILY Glucosam/Chond/Hyalu/Cf Borate [Move Free Joint Health Tablet] 1 tab PO DAILY Acetaminophen [Tylenol Arthritis] 650 mg PO DAILY PRN PRN Reason: arthritis pain Promethazine/Dextromethorphan [Promethazine-Dm Syrup] 5 ml PO Q6H PRN PRN Reason: Cough Nadolol [Corgard] 40 mg PO DAILY Diclofenac Sodium Gel [Voltaren Gel] 4 gm TOPICAL QID PRN PRN Reason: left knee pain Verapamil HCl [Verapamil ER] 120 mg PO W/BRKFST Discharge Medication List Estradiol [Estrace] 2 mg PO DAILY 05/14/14 [History] Pantoprazole Sodium [Protonix] 40 mg PO BID 05/14/14 [History] Albuterol Nebulized [Ventolin Nebulized] 2.5 mg INHALATION RT-BID 08/16/18 [History] Ipratropium Nebulized [Atrovent Nebulized 0.2 MG/ML] 0.5 mg INHALATION RT-BID 11/13/18 [History] DULoxetine HCL [Cymbalta] 30 mg PO DAILY 10/06/19 [History] Albuterol Sulfate [Ventolin HFA] 1 - 2 puff INHALATION Q6H PRN 10/29/19 [History] Acetaminophen [Tylenol Arthritis] 650 mg PO DAILY PRN 05/02/20 [History] Diclofenac Sodium Gel [Voltaren Gel] 4 gm TOPICAL QID PRN 05/02/20 [History] Glucosam/Chond/Hyalu/Cf Borate [Move Free Joint Health Tablet] 1 tab PO DAILY 05/02/20 [History] Lysine (Unknown Strength) 1 tab PO DAILY 05/02/20 [History] Nadolol [Corgard] 40 mg PO DAILY 05/02/20 [History] Promethazine/Dextromethorphan [Promethazine-Dm Syrup] 5 ml PO Q6H PRN 05/02/20 [History] Verapamil HCl [Verapamil ER] 120 mg PO W/BRKFST 05/02/20 [History] Apixaban [Eliquis] 5 mg PO BID #60 tab 05/04/20 [Rx] Lisinopril [Zestril] 10 mg PO DAILY #30 tab 05/04/20 [Rx] Follow up Appointment(s)/Referral(s): Segrey Castorena MD [STAFF PHYSICIAN] - 1 Week Lucie Tesfaye MD [Primary Care Provider] - 1-2 days Patient Instructions/Handouts: A-fib (Atrial Fibrillation) (DC) Discharge Disposition: HOME SELF-CARE
== END 2020-05-04 11:12 | disposition home or self-care (01) ==
LOC: EC 18:24 → 1SOBS 19:55
PROVIDERS: ADMIT Internal Medicine; ATTEND Internal Medicine
DX: I25.110 Atherosclerotic heart disease of native coronary artery with unstable angina pectoris (principal); I10 Essential (primary) hypertension; E03.9 Hypothyroidism, unspecified; I27.20 Pulmonary hypertension, unspecified; I48.19 Other persistent atrial fibrillation; E78.5 Hyperlipidemia, unspecified; K21.9 Gastro-esophageal reflux disease without esophagitis; M19.90 Unspecified osteoarthritis, unspecified site; E78.00 Pure hypercholesterolemia, unspecified; I44.7 Left bundle-branch block, unspecified; I08.1 Rheumatic disorders of both mitral and tricuspid valves; R05 Cough; M25.562 Pain in left knee; J44.9 Chronic obstructive pulmonary disease, unspecified; J45.40 Moderate persistent asthma, uncomplicated; Z63.79 Other stressful life events affecting family and household; Z87.11 Personal history of peptic ulcer disease; M79.7 Fibromyalgia; D64.9 Anemia, unspecified; I25.2 Old myocardial infarction; M54.9 Dorsalgia, unspecified; G43.909 Migraine, unspecified, not intractable, without status migrainosus; Z87.442 Personal history of urinary calculi; Z90.49 Acquired absence of other specified parts of digestive tract; Z79.890 Hormone replacement therapy; Z79.899 Other long term (current) drug therapy; Z88.6 Allergy status to analgesic agent; Z88.0 Allergy status to penicillin; Z88.2 Allergy status to sulfonamides; Z88.8 Allergy status to other drugs, medicaments and biological substances; Z82.49 Family history of ischemic heart disease and other diseases of the circulatory system; Z80.9 Family history of malignant neoplasm, unspecified; Z20.828 Contact with and (suspected) exposure to other viral communicable diseases
CPT/HCPCS: 96366 ×2; 96376 ×2; 96365; 99291; 36415; 94640 ×3; 93005 ×2; 93306; 93458; 85379; 80061; 80053; 83735; 84484 ×2; 85025; 85610; 85730 ×2; 71046; G0378 ×3; C1769 ×2; C1760; C1894; U0003; J2250; J1644 ×3; J2001; J3010; Q9967

== ENCOUNTER 2020-05-04 16:11 | Inpatient (IN) | payer MEDICARE, BC ==
[2020-05-04] MEDS ORDERED: SODIUM CHLORIDE 0.9% 1,000 ML IV STA (16:20)
[2020-05-04] MEDS ORDERED: RX INFO: IV CONTRAST WAS GIVEN 1 EACH MISC MISCELLANE PRN (16:20)
[2020-05-04] MEDS ORDERED: HYDROmorphone 1 MG/ML 1 ML SYRINGE IVP STA (16:20)
[2020-05-04] MEDS ORDERED: TRANEXAMIC ACID 1,000 MG in SODIUM CHLORIDE 0.9% 100 ML IV STA (16:21)
[2020-05-04] MEDS ORDERED: TRANEXAMIC ACID 1,000 MG in SODIUM CHLORIDE 0.9% 250 ML IV ONE (16:21)
--- NOTE | 2020-05-04 16:23 | ED ---
Recheck HPI - General Chief Complaint: Recheck/Abnormal Lab/Rx Stated Complaint: abnormal recheck Time Seen by Provider: 05/04/20 16:12 Source: EMS, RN notes reviewed, old records reviewed Mode of arrival: EMS Limitations: physical limitation - History of Present Illness Initial Comments: This is a 74-year-old female DF for evaluation she Dese for evaluation of severe right lower Shorty pain. Patient had recent right groin catheterization heart catheterization. Patient then was doing nothing strenuous today and felt a pop in her right leg and severe pain that her legs are significantly swell. Patient is complaining of severe leg pain moaning and groaning in pain, she does have atrial fibrillation has taken Ferdinand the past, unsure she takes currently. Patient is started on Plavix MD Complaint: wound re-check -: minutes(s) Returns Today for: persistent/worsening pain related to initial visit (Patient has worse pain puncture site) Symptoms Since Prior Visit: worsening pain, worsening swelling - Related Data Home Medications Medication Instructions Recorded Confirmed Estradiol [Estrace] 2 mg PO DAILY 05/14/14 05/04/20 Pantoprazole Sodium [Protonix] 40 mg PO BID 05/14/14 05/04/20 Albuterol Nebulized [Ventolin 2.5 mg INHALATION RT-BID 08/16/18 05/04/20 Nebulized] Ipratropium Nebulized [Atrovent 0.5 mg INHALATION RT-BID 11/13/18 05/04/20 Nebulized 0.2 MG/ML] DULoxetine HCL [Cymbalta] 30 mg PO DAILY 10/06/19 05/04/20 Albuterol Sulfate [Ventolin HFA] 1 - 2 puff INHALATION RT-Q6H PRN 10/29/19 05/04/20 Acetaminophen [Tylenol Arthritis] 650 mg PO DAILY PRN 05/02/20 05/04/20 Diclofenac Sodium Gel [Voltaren 4 gm TOPICAL QID PRN 05/02/20 05/04/20 Gel] Glucosam/Chond/Hyalu/Cf Borate 1 tab PO DAILY 05/02/20 05/04/20 [Move Free Joint Health Tablet] Lysine (Unknown Strength) 1 tab PO DAILY 05/02/20 05/04/20 Nadolol [Corgard] 40 mg PO DAILY 05/02/20 05/04/20 Promethazine/Dextromethorphan 5 ml PO Q6H PRN 05/02/20 05/04/20 [Promethazine-Dm Syrup] Verapamil HCl [Verapamil ER] 120 mg PO AC-BRKFST 05/02/20 05/04/20 Apixaban [Eliquis] 5 mg PO BID 05/04/20 05/04/20 Previous Rx's Medication Instructions Recorded Lisinopril [Zestril] 10 mg PO DAILY #30 tab 05/04/20 Allergies Allergy/AdvReac Type Severity Reaction Status Date / Time cephalexin monohydrate Allergy HIVES Verified 05/04/20 17:26 [From Keflex] diphenhydramine HCl Allergy SWELLING Verified 05/04/20 17:26 [From Benadryl] OF TONGUE, SOB enoxaparin [From Lovenox] Allergy Rash/Hives Verified 05/04/20 17:26 Penicillins Allergy SWELLING, Verified 05/04/20 17:26 HIVES aspirin AdvReac EXCESS Verified 05/04/20 17:26 BLEEDING sulfamethoxazole AdvReac Nausea & Verified 05/04/20 17:26 [From Bactrim] Vomiting trimethoprim [From Bactrim] AdvReac Nausea & Verified 05/04/20 17:26 Vomiting Review of Systems ROS Statement: Those systems with pertinent positive or pertinent negative responses have been documented in the HPI. ROS Other: All systems not noted in ROS Statement are negative. Past Medical History Past Medical History: Atrial Fibrillation, Asthma, Cancer, Fibromyalgia, GERD/Reflux, Hypertension, Myocardial Infarction (LA), Osteoarthritis (OA), Rheu matoid Arthritis (RA), Thyroid Disorder Additional Past Medical History / Comment(s): back pain, migraines ), occasional slight difficulty with swallowing, gastic ulcer, H-pylori, diverticular disease, , melanoma removed from face, kidney stones, Last Myocardial Infarction Date:: 2012 History of Any Multi-Drug Resistant Organisms: None Reported Past Surgical History: Back Surgery, Cholecystectomy, Heart Catheterization, Hysterectomy, Joint Replacement, Orthopedic Surgery Additional Past Surgical History / Comment(s): RODS & CAGES IN BACK, RT HIP REPLACEMENT, PARTIAL THYROIDECTOMY, RT KNEE REPLACEMENT, NECK SURGER- LIDIA AND CAGES. Heart cath w/ no intervention Past Anesthesia/Blood Transfusion Reactions: Previous Problems w/ Anesthesia, Postoperative Nausea & Vomiting (PONV) Additional Past Anesthesia/Blood Transfusion Reaction / Comment(s): hard to wake up Past Psychological History: No Psychological Hx Reported Smoking Status: Never smoker Past Alcohol Use History: None Reported Past Drug Use History: None Reported - Past Family History Sister(s) Family Medical History: Cancer Brother(s) Family Medical History: Cancer Mother Family Medical History: Myocardial Infarction (LA) Additional Family Medical History / Comment(s): Mother of a LA at the age of 76yrs. Father History Unknown: Yes General Exam Limitations: physical limitation General appearance: alert, anxious, in distress Head exam: Present: atraumatic, normocephalic, normal inspection Eye exam: Present: normal appearance, PERRL, EOMI. Absent: scleral icterus, conjunctival injection, periorbital swelling ENT exam: Present: normal exam, mucous membranes moist Neck exam: Present: normal inspection. Absent: tenderness, meningismus, lymphadenopathy Respiratory exam: Present: normal lung sounds bilaterally. Absent: respiratory distress, wheezes, rales, rhonchi, stridor Cardiovascular Exam: Present: normal rhythm, tachycardia, normal heart sounds. Absent: systolic murmur, diastolic murmur, rubs, gallop, clicks GI/Abdominal exam: Present: soft, normal bowel sounds. Absent: distended, tenderness, guarding, rebound, rigid Extremities exam: Present: normal inspection, full ROM, tenderness (Significant right lower Shorty tenderness expanding hematoma she does have positive cells pedis pulse), normal capillary refill. Absent: pedal edema, joint swelling, calf tenderness Back exam: Present: normal inspection Neurological exam: Present: alert, oriented X3, CN II-XII intact Psychiatric exam: Present: normal affect, normal mood Skin exam: Present: warm, dry, intact, normal color. Absent: rash Course Vital Signs 05/04/20 05/04/20 05/04/20 16:13 17:07 17:12 Temperature 97.7 F Pulse Rate 75 109 H 97 Respiratory 16 22 16 Rate Blood Pressure 112/62 141/51 120/62 O2 Sat by Pulse 98 99 95 Oximetry 05/04/20 17:38 Temperature Pulse Rate 94 Respiratory 16 Rate Blood Pressure 112/60 O2 Sat by Pulse 100 Oximetry - Reevaluation(s) Reevaluation #1: 05/04/20 16:43 Medical records reviewed Reevaluation #2: 05/04/20 16:43 Patient still severe Reevaluation #3: 05/04/20 18:07 Pressure wound as well as A fem stop Is placed on right lower extremity - Consultations Consultation #1: Spoke with vascular Dr. Byrne regarding patient is aware spooke w OR will admit Spoke with Dr. Adan admission Spoke with Dr. Gomez regarding patient Spoke with goldy regarding admission there agreed to admit Medical Decision Making - Medical Decision Making 74 female to ED w right PSA, expanding hematoma, severe R leg pain, patient will go to OR with postOperative bleeding. - Lab Data Result diagrams: 05/04/20 16:34 05/04/20 16:34 Lab Results 05/04/20 05/04/20 05/04/20 Range/Units 16:34 16:34 16:34 WBC 6.0 (3.8-10.6) k/uL RBC 2.67 L (3.80-5.40) m/uL Hgb 7.6 L D (11.4-16.0) gm/dL Hct 24.2 L (34.0-46.0) % MCV 90.6 (80.0-100.0) fL MCH 28.6 (25.0-35.0) pg MCHC 31.5 (31.0-37.0) g/dL RDW 15.2 (11.5-15.5) % Plt Count 286 (150-450) k/uL Neutrophils % 59 % Lymphocytes % 26 % Monocytes % 7 % Eosinophils % 5 % Basophils % 0 % Neutrophils # 3.6 (1.3-7.7) k/uL Lymphocytes # 1.6 (1.0-4.8) k/uL Monocytes # 0.4 (0-1.0) k/uL Eosinophils # 0.3 (0-0.7) k/uL Basophils # 0.0 (0-0.2) k/uL Hypochromasia Marked PT 10.6 (9.0-12.0) sec INR 1.0 (<1.2) APTT 26.2 (22.0-30.0) sec Sodium 135 L (137-145) mmol/L Potassium 3.7 (3.5-5.1) mmol/L Chloride 111 H (98-107) mmol/L Carbon Dioxide 19 L (22-30) mmol/L Anion Gap 5 mmol/L BUN 17 (7-17) mg/dL Creatinine 0.65 (0.52-1.04) mg/dL Est GFR (CKD-EPI)AfAm >90 (>60 ml/min/1.73 sqM) Est GFR (CKD-EPI)NonAf 88 (>60 ml/min/1.73 sqM) Glucose 118 H (74-99) mg/dL Plasma Lactic Acid Chris (0.7-2.0) mmol/L Calcium 8.1 L (8.4-10.2) mg/dL Phosphorus 2.8 (2.5-4.5) mg/dL Magnesium 1.6 (1.6-2.3) mg/dL Total Bilirubin 0.3 (0.2-1.3) mg/dL AST 18 (14-36) U/L ALT 9 (4-34) U/L Alkaline Phosphatase 48 (38-126) U/L Troponin I (0.000-0.034) ng/mL Total Protein 5.1 L (6.3-8.2) g/dL Albumin 2.6 L (3.5-5.0) g/dL Blood Type Blood Type Recheck Bld Type Recheck Status Antibody Screen Spec Expiration Date 05/04/20 05/04/20 05/04/20 Range/Units 16:34 16:34 17:15 WBC (3.8-10.6) k/uL RBC (3.80-5.40) m/uL Hgb (11.4-16.0) gm/dL Hct (34.0-46.0) % MCV (80.0-100.0) fL MCH (25.0-35.0) pg MCHC (31.0-37.0) g/dL RDW (11.5-15.5) % Plt Count (150-450) k/uL Neutrophils % % Lymphocytes % % Monocytes % % Eosinophils % % Basophils % % Neutrophils # (1.3-7.7) k/uL Lymphocytes # (1.0-4.8) k/uL Monocytes # (0-1.0) k/uL Eosinophils # (0-0.7) k/uL Basophils # (0-0.2) k/uL Hypochromasia PT (9.0-12.0) sec INR (<1.2) APTT (22.0-30.0) sec Sodium (137-145) mmol/L Potassium (3.5-5.1) mmol/L Chloride (98-107) mmol/L Carbon Dioxide (22-30) mmol/L Anion Gap mmol/L BUN (7-17) mg/dL Creatinine (0.52-1.04) mg/dL Est GFR (CKD-EPI)AfAm (>60 ml/min/1.73 sqM) Est GFR (CKD-EPI)NonAf (>60 ml/min/1.73 sqM) Glucose (74-99) mg/dL Plasma Lactic Acid Chris 1.8 (0.7-2.0) mmol/L Calcium (8.4-10.2) mg/dL Phosphorus (2.5-4.5) mg/dL Magnesium (1.6-2.3) mg/dL Total Bilirubin (0.2-1.3) mg/dL AST (14-36) U/L ALT (4-34) U/L Alkaline Phosphatase (38-126) U/L Troponin I <0.012 (0.000-0.034) ng/mL Total Protein (6.3-8.2) g/dL Albumin (3.5-5.0) g/dL Blood Type A Negative Blood Type Recheck A Neg Bld Type Recheck Status No Antibody Screen NEGATIVE Spec Expiration Date 05/07/2020 - 3854 - EKG Data -: EKG Interpreted by Me (EKG is afebrile 72 QRS 128 QTc 497) - Radiology Data Radiology results: report reviewed (CTa RLE shows expanding hematoma, PSA, femoral artery bleed), image reviewed Critical Care Time Critical Care Time: Yes Total Critical Care Time: 65 Disposition Clinical Impression: Coagulopathy, Pseudoaneurysm, Post-operative haemorrhage, Anemia, Hemorrhagic shock Disposition: ADMITTED IP TO THIS [facility] Condition: Critical Is patient prescribed a controlled substance at d/c from ED?: No Referrals: Lucie Tesfaye MD [Primary Care Provider] - 1-2 days
[2020-05-04] MEDS ORDERED: Kcentra PER PHARMACY 1 EACH MISC MISCELLANE PRN (16:34)
[2020-05-04] MEDS ORDERED: HUMAN PROTHROMBIN COMPLX IV ONE (16:45)
[2020-05-04] MEDS ORDERED: HUMAN PROTHROMBIN COMPLX 500 UNIT/16 ML VIAL IV ONE (16:45)
[2020-05-04 16:55] LABS: ALT 9 U/L (4-34); AST 18 U/L (14-36); African American GFR (CKD) >90 (>60 ml/min/1.73 sqM); Albumin 2.6 g/dL (3.5-5.0); Alkaline Phosphatase 48 U/L (38-126); Anion Gap 5 mmol/L; Blood Urea Nitrogen 17 mg/dL (7-17); Calcium 8.1 mg/dL (8.4-10.2); Carbon Dioxide 19 mmol/L (22-30); Chloride 111 mmol/L (98-107); Glucose 118 mg/dL (74-99); Magnesium 1.6 mg/dL (1.6-2.3); Non-African American GFR(CKD) 88 (>60 ml/min/1.73 sqM); Phosphorus 2.8 mg/dL (2.5-4.5); Potassium 3.7 mmol/L (3.5-5.1); Sodium 135 mmol/L (137-145); Total Bilirubin 0.3 mg/dL (0.2-1.3); Total Protein 5.1 g/dL (6.3-8.2)
[2020-05-04 16:58] LABS: Basophils % (A) 0 %; Eosinophils # (A) 0.3 k/uL (0-0.7); Eosinophils % (A) 5 %; HCT 24.2 % (34.0-46.0); Hypochromasia Marked; Lymphocytes # (A) 1.6 k/uL (1.0-4.8); Lymphocytes % (A) 26 %; MCH 28.6 pg (25.0-35.0); MCHC 31.5 g/dL (31.0-37.0); MCV 90.6 fL (80.0-100.0); Mean Platelet Volume 7.3; Monocytes # (A) 0.4 k/uL (0-1.0); Monocytes % (A) 7 %; Neutrophils # (A) 3.6 k/uL (1.3-7.7); Neutrophils % (A) 59 %; Platelet Count 286 k/uL (150-450); RBC 2.67 m/uL (3.80-5.40); RDW 15.2 % (11.5-15.5)
[2020-05-04 17:00] LABS: Partial Thromboplastin Time 26.2 sec (22.0-30.0); Prothrombin Time 10.6 sec (9.0-12.0)
[2020-05-04 17:02] LABS: HGB 7.6 gm/dL (11.4-16.0)
[2020-05-04] MEDS: HYDROmorphone 1 MG/ML 1 ML SYRINGE IVP PRN (17:04)
--- NOTE | 2020-05-04 17:35 | CT ---
EXAMINATION TYPE: CT angio lower extremity RT DATE OF EXAM: 05/04/2020 COMPARISON: 08/16/2019 HISTORY: Heart cath yesterday, extreme right groin pain. CT DLP: 1542.8 mGycm Automated exposure control for dose reduction was used. CONTRAST: Performed with IV Contrast, patient injected with 100 mL of Isovue 370. There are 3-D post processed images. Multiple axial sections were obtained from the level of the mid abdominal aorta to the bottom of the feet with IV contrast. FINDINGS: Abdominal aorta has normal size. There is no evidence of abdominal aortic aneurysm or dissection. The re is wide patency of the iliac and femoral arteries. There is large high density mass in the right g roin region that measures 15 x 10 cm related to hematoma. There is evidence of active bleeding into t he hematoma with a puddle of contrast that measures 1.5 cm. The site of leakage is at the segment of femoral artery just proximal to the profunda femoris artery origin. Leaking is on the anterior aspec t of the vessel. Femoral arteries of the left and right thigh appear widely patent. There is bilateral arterial flow i n the popliteal and tibial arteries. There is arterial flow in the anterior and posterior tibial amie laurita at the ankles. I see no evidence of hemodynamic stenosis. There appears to be wide patency of th e tibial artery trifurcations. There is 9 mm calculus lower pole right kidney. There is 3 mm calculus lower pole left kidney. There is 3 cm cortical cyst lateral right kidney. There is to similar cortical cyst posterior left kidney. There is no retroperitoneal adenopathy. There is no free fluid in the pelvis. There is multilevel pos terior fusion surgery with metal artifact in the lumbar spine. There is a 2.7 cm cyst in the pelvis on the left side that could be ovarian cyst. There are a few sig moid diverticula. There is no sign of diverticulitis. There is a right hip prosthesis. IMPRESSION: There is a large right groin hematoma with evidence of active bleeding into the hematoma. Left-sided pelvic cyst unchanged compared to old exam. Bilateral nonobstructing renal calculi unchang ed. Exam was discussed with Dr. Suárez. At 5:30 PM.
[2020-05-04] MEDS ORDERED: NALOXONE 0.4 MG/ML 1 ML VIAL IV PRN (17:58)
[2020-05-04] MEDS ORDERED: MORPHINE SULFATE 4 MG/ML SYRINGE IV PRN (17:58)
[2020-05-04] MEDS ORDERED: CLINDAMYCIN 900 MG in DEXTROSE 5% IN WATER 50 ML IVPB STA ×2 (18:14)
[2020-05-04] MEDS ORDERED: HEPARIN SODIUM,PORCINE 5,000 UNIT/ML 1 ML VIAL ONE (18:25)
[2020-05-04] MEDS ORDERED: GLYCOPYRROLATE 0.2 MG/ML 2 ML VIAL ONE (18:25)
[2020-05-04] MEDS ORDERED: PROTAMINE SULFATE 10 MG/ML 5 ML VIAL IV ONE (18:25)
[2020-05-04] MEDS ORDERED: MIDAZOLAM 2 MG/2 ML VIAL ONE (18:25)
[2020-05-04] MEDS ORDERED: LIDOCAINE 1% INJ 10MG/ML (20 ML MDV) ONE (18:25)
[2020-05-04] MEDS ORDERED: SUCCINYLCHOLINE CHLORIDE 100 MG/5 ML SYR IV ONE (18:25)
[2020-05-04] MEDS ORDERED: PHENYLEPHRINE-0.9% NACL SYG 1 MG/10 ML SYRINGE ONE (18:25)
[2020-05-04] MEDS ORDERED: PROPOFOL 10 MG/ML 20 ML VIAL IV ONE (18:25)
[2020-05-04] MEDS ORDERED: ePHEDrine SULFATE/0.9% NACL/PF 50 MG/5 ML SYRINGE IV ONE (18:25)
[2020-05-04] MEDS ORDERED: fentaNYL (PF) 50 MCG/ML 2 ML AMP ONE (18:25)
[2020-05-04] MEDS ORDERED: IV FLUID CONTINUATION 1,000 ML IV ONE (18:34)
[2020-05-04] MEDS ORDERED: SODIUM CHLORIDE 0.9% 1,000 ML IV ONE (18:34)
[2020-05-04] MEDS ORDERED: LACTATED RINGERS 1,000 ML IV ONE (19:29)
--- NOTE | 2020-05-04 19:48 | P.GSCN ---
History of Present Illness Consult date: 05/04/20 Reason for Consult: Bleeding from the right femoral artery, status post cardiac catheterization performed approximate 24 hours prior Requesting physician: Mihir Suárez History of present illness: Patient is a 74-year-old female who presented to the emergency room earlier today complaining of acute onset right inguinal pain followed by swelling in the anterior/medial aspect of her right thigh. Via the emergency room a CTA was performed which demonstrated a bleeding from the femoral artery with an associat ed large hematoma. Vascular surgical was counseled for possible intervention. My evaluation revealed a large subcutaneous hematoma in the right inguinal area. Palpable dorsalis pedis pulse is noted on the right. 2 large bore IV's were established. The patient received fluid bolus and transfusion of 2 units of packed red blood cells was initiated. The patient also received K-Centra under the direction of the emergency room physician I discussed the findings of the CAT scan and physical examination with the patient and her . I did recommend urgent surgical intervention. The pro cedure, risk and benefits were discussed. Patient and was to proceed. Patient was administered intravenously administered prophylactic antibiotics in the perioperative phase. She was taken urgently to the room. Past Medical History Past Medical History: Atrial Fibrillation, Asthma, Cancer, Fibromyalgia, GERD/Reflux, Hypertension, Myocardial Infarction (CA), Osteoarthritis (OA), Rheumatoid Arthritis (RA), Thyroid Disorder Additional Past Medical History / Comment(s): back pain, migraines ), occasional slight difficulty with swallowing, gastic ulcer, H-pylori, diverticular disease, , melanoma removed from face, kidney stones, Last Myocardial Infarction Date:: 2012 History of Any Multi-Drug Resistant Organisms: None Reported Past Surgical History: Back Surgery, Cholecystectomy, Heart Catheterization, Hysterectomy, Joint Replacement, Orthopedic Surgery Additional Past Surgical History / Comment(s): RODS & CAGES IN BACK, RT HIP REPLACEMENT, PARTIAL THYROIDECTOMY, RT KNEE REPLACEMENT, NECK SURGER- LIDIA AND CAGES. Heart cath w/ no intervention Past Anesthesia/Blood Transfusion Reactions: Previous Problems w/ Anesthesia, Postoperative Nausea & Vomiting (PONV) Additional Past Anesthesia/Blood Transfusion Reaction / Comm: hard to wake up Past Psychological History: No Psychological Hx Reported Smoking Status: Never smoker Past Alcohol Use History: None Reported Past Drug Use History: None Reported - Past Family History Sister(s) Family Medical History: Cancer Brother(s) Family Medical History: Cancer Mother Family Medical History: Myocardial Infarction (CA) Additional Family Medical History / Comment(s): Mother of a CA at the age of 76yrs. Father History Unknown: Yes Medications and Allergies Home Medications Medication Instructions Recorded Confirmed Type Estradiol [Estrace] 2 mg PO DAILY 05/14/14 05/04/20 History Pantoprazole Sodium [Protonix] 40 mg PO BID 05/14/14 05/04/20 History Albuterol Nebulized [Ventolin 2.5 mg INHALATION RT-BID 08/16/18 05/04/20 History Nebulized] Ipratropium Nebulized [Atrovent 0.5 mg INHALATION RT-BID 11/13/18 05/04/20 History Nebulized 0.2 MG/ML] DULoxetine HCL [Cymbalta] 30 mg PO DAILY 10/06/19 05/04/20 History Albuterol Sulfate [Ventolin HFA] 1 - 2 puff INHALATION RT-Q6H PRN 10/29/19 05/04/20 History Acetaminophen [Tylenol Arthritis] 650 mg PO DAILY PRN 05/02/20 05/04/20 History Diclofenac Sodium Gel [Voltaren 4 gm TOPICAL QID PRN 05/02/20 05/04/20 History Gel] Glucosam/Chond/Hyalu/Cf Borate 1 tab PO DAILY 05/02/20 05/04/20 History [Move Free Joint Health Tablet] Lysine (Unknown Strength) 1 tab PO DAILY 05/02/20 05/04/20 History Nadolol [Corgard] 40 mg PO DAILY 05/02/20 05/04/20 History Promethazine/Dextromethorphan 5 ml PO Q6H PRN 05/02/20 05/04/20 History [Promethazine-Dm Syrup] Verapamil HCl [Verapamil ER] 120 mg PO AC-BRKFST 05/02/20 05/04/20 History Apixaban [Eliquis] 5 mg PO BID 05/04/20 05/04/20 History Lisinopril [Zestril] 10 mg PO DAILY #30 tab 05/04/20 05/04/20 Rx Allergies Allergy/AdvReac Type Severity Reaction Status Date / Time cephalexin monohydrate Allergy HIVES Verified 05/04/20 17:26 [From Keflex] diphenhydramine HCl Allergy SWELLING Verified 05/04/20 17:26 [From Benadryl] OF TONGUE, SOB enoxaparin [From Lovenox] Allergy Rash/Hives Verified 05/04/20 17:26 Penicillins Allergy SWELLING, Verified 05/04/20 17:26 HIVES aspirin AdvReac EXCESS Verified 05/04/20 17:26 BLEEDING sulfamethoxazole AdvReac Nausea & Verified 05/04/20 17:26 [From Bactrim] Vomiting trimethoprim [From Bactrim] AdvReac Nausea & Verified 05/04/20 17:26 Vomiting Surgical - Exam Osteopathic Statement: *. No significant issues noted on an osteopathic structural exam other than those noted in the History and Physical/Consult. Vital Signs Temp Pulse Resp BP Pulse Ox 97.7 F 75 16 112/62 98 05/04/20 16:13 05/04/20 16:13 05/04/20 16:13 05/04/20 16:13 05/04/20 16:13 Results - Labs 05/04/20 16:34 05/04/20 16:34 Abnormal Lab Results - Last 24 Hours (Table) 05/04/20 05/04/20 05/04/20 Range/Units 16:34 16:34 17:15 RBC 2.67 L (3.80-5.40) m/uL Hgb 7.6 L D (11.4-16.0) gm/dL Hct 24.2 L (34.0-46.0) % Sodium 135 L (137-145) mmol/L Chloride 111 H (98-107) mmol/L Carbon Dioxide 19 L (22-30) mmol/L Glucose 118 H (74-99) mg/dL Calcium 8.1 L (8.4-10.2) mg/dL Total Protein 5.1 L (6.3-8.2) g/dL Albumin 2.6 L (3.5-5.0) g/dL Crossmatch See Detail Diabetes panel 05/04/20 Range/Units 16:34 Sodium 135 L (137-145) mmol/L Potassium 3.7 (3.5-5.1) mmol/L Chloride 111 H (98-107) mmol/L Carbon Dioxide 19 L (22-30) mmol/L BUN 17 (7-17) mg/dL Creatinine 0.65 (0.52-1.04) mg/dL Glucose 118 H (74-99) mg/dL Calcium 8.1 L (8.4-10.2) mg/dL AST 18 (14-36) U/L ALT 9 (4-34) U/L Alkaline Phosphatase 48 (38-126) U/L Total Protein 5.1 L (6.3-8.2) g/dL Albumin 2.6 L (3.5-5.0) g/dL Calcium panel 05/04/20 Range/Units 16:34 Calcium 8.1 L (8.4-10.2) mg/dL Phosphorus 2.8 (2.5-4.5) mg/dL Albumin 2.6 L (3.5-5.0) g/dL Pituitary panel 05/04/20 Range/Units 16:34 Sodium 135 L (137-145) mmol/L Potassium 3.7 (3.5-5.1) mmol/L Chloride 111 H (98-107) mmol/L Carbon Dioxide 19 L (22-30) mmol/L BUN 17 (7-17) mg/dL Creatinine 0.65 (0.52-1.04) mg/dL Glucose 118 H (74-99) mg/dL Calcium 8.1 L (8.4-10.2) mg/dL Adrenal panel 05/04/20 Range/Units 16:34 Sodium 135 L (137-145) mmol/L Potassium 3.7 (3.5-5.1) mmol/L Chloride 111 H (98-107) mmol/L Carbon Dioxide 19 L (22-30) mmol/L BUN 17 (7-17) mg/dL Creatinine 0.65 (0.52-1.04) mg/dL Glucose 118 H (74-99) mg/dL Calcium 8.1 L (8.4-10.2) mg/dL Total Bilirubin 0.3 (0.2-1.3) mg/dL AST 18 (14-36) U/L ALT 9 (4-34) U/L Alkaline Phosphatase 48 (38-126) U/L Total Protein 5.1 L (6.3-8.2) g/dL Albumin 2.6 L (3.5-5.0) g/dL
[2020-05-04] MEDS ORDERED: ACETAMINOPHEN TAB 325 MG TAB PO PRN (19:55)
[2020-05-04] MEDS ORDERED: PROMETHAZINE PO PRN (19:55)
[2020-05-04] MEDS ORDERED: DEXTROMETHORPHAN PO PRN (19:55)
--- NOTE | 2020-05-04 19:56 | P.OP ---
Date of Procedure: 05/04/20 Preoperative Diagnosis: Arterial bleeding status post cardiac catheterization right femoral artery with associated large hematoma of the right thigh. Postoperative Diagnosis: Same. Procedure(s) Performed: #1: Repair of right femoral artery. #2: Evacuation of hematoma. Implants: None. Anesthesia: PETERA Surgeon: Andrzej Kenny Estimated Blood Loss (ml): 200 Pathology: none sent Condition: stable Disposition: ICU Indications for Procedure: Patient is a 74-year-old female who presented in the emergency room earlier today complaining of acute onset right inguinal pain and associated swelling. She is status post cardiac catheterization performed the day prior. Physical examination and computed tomography scan were consistent with post procedure bleeding. Patient is now offered surgical repair. Description of Procedure: Patient was brought to the operating room placed in supine position and administered general endotracheal anesthesia delivered by the department anesthesiology. Patient received intravenously Mr. prophylactic antibiotics in the perioperative phase. Patient's abdomen inguinal area and thigh on the right were sterilely prepped and draped in usual manner. Skin incision was made over the femoral artery and carried down through subcu change tissues. Hemostasis was achieved using electrocautery. The incision was deepened and a large hematoma was encountered. This was evacuated. The incision was deepened down to the level of the femoral sheath. This was incised exposing the proximal portion of the superficial femoral artery. A closure device used during the cardiac catheterization was encountered and it did not appear to be in continuity with the artery itself. The dissection was carried cephalad to the level of the puncture site. The artery was dissected free proximally and distally to this and encircled with Vesseloops. Patient received 5000 units of heparin. Vesseloops were drawn closed and the puncture site was closed with 6-0 Prolene suture. Flow was then restored through the common femoral artery into both the profundus and superficial femoral arteries. Excellent pulse was identified in both the profundus and superficial segments. As much thrombus as possible was expressed from the wound. Wound was irrigated. The wound was inspected for hemostasis this was judged be adequate. Drain was placed through separate stab wound incision into the hematoma cavity. Deep tissues were closed as best possible with 2-0 Vicryl suture. Was difficult to identify clearly the femoral nerve but attempt was made to avoid the femoral nerve being involved with the suture. Dermis was closed with 4-0 Monocryl placed in running intradermal fashion. Skin glue was applied to the wound. The drain was secured to the skin with nylon suture. Pressure dressing was placed over the wound. Patient tolerated procedure well and was taken to the recovery area in satisfactory and stable condition.
[2020-05-04] MEDS ORDERED: IPRATROPIUM 0.5 MG/2.5 ML NEBU INHALATION SCH (20:00)
[2020-05-04] MEDS ORDERED: ALBUTEROL NEBULIZED 2.5 MG/3 ML INHALATION SCH (20:00)
[2020-05-04] MEDS: IPRATROPIUM-ALBUTEROL 3 ML NEB INHALATION SCH (20:20)
[2020-05-04] MEDS ORDERED: IPRATROPIUM-ALBUTEROL 3 ML NEB INHALATION PRN (20:28)
[2020-05-04 20:42] LABS: Glucose,Whole Blood 116 mg/dL (75-99)
--- NOTE | 2020-05-04 23:52 | P.HPIM ---
History of Present Illness H&P Date: 05/04/20 Chief Complaint: right groin swelling and pain 74-year-old female with A. fib on anticoagulation coronary artery disease Patient comes in today few hours after discharge posthospitalization for unstable angina patient had a left heart cath through the right groin access sh owed 4050 percent proximal occlusion of LAD cardiology recommended maximal medical therapy and outpatient follow-up for stress test. However patient left home while she was sitting on her recliner reading her newspaper she felt sudden pain in her right groin and noticed increased swelling with excruciating pain 10 out of 10 in severity over her right groin she notified her called EMS and she was brought into the hospital. Patient was evaluated suspicion was for complications related to side effects of left heart cath through right femoral artery. CT angiogram was done which showed bleeding and hematoma around the right femoral artery. Patient was taken emergently to the OR by vascular surgery who did repair of the right femoral artery and evacuation of the hematoma. Patient was also given 2 units of packed RBC Patient currently evaluated in the ICU she feels better she still reports some discomfort over her right groin but otherwise denies any chest pain dizziness lightheadedness or trouble breathing Review of Systems Pertinent positives as noted in HPI. All other systems were reviewed and are negative Past Medical History Past Medical History: Atrial Fibrillation, Asthma, Cancer, Fibromyalgia, GERD/Reflux, Hypertension, Myocardial Infarction ([place]), Osteoarthritis (OA), Rheumatoid Arthritis (RA), Thyroid Disorder Additional Past Medical History / Comment(s): back pain, migraines ), occasional slight difficulty with swallowing, gastic ulcer, H-pylori, diverticular disease, , melanoma removed from face, kidney stones, Last Myocardial Infarction Date:: 2012 History of Any Multi-Drug Resistant Organisms: None Reported Past Surgical History: Back Surgery, Cholecystectomy, Heart Catheterization, Hysterectomy, Joint Replacement, Orthopedic Surgery Additional Past Surgical History / Comment(s): RODS & CAGES IN BACK, RT HIP REPLACEMENT, PARTIAL THYROIDECTOMY, RT KNEE REPLACEMENT, NECK SURGER- LIDIA AND CAGES. Heart cath w/ no intervention Past Anesthesia/Blood Transfusion Reactions: Previous Problems w/ Anesthesia, Postoperative Nausea & Vomiting (PONV) Additional Past Anesthesia/Blood Transfusion Reaction / Comment(s): hard to wake up Past Psychological History: No Psychological Hx Reported Smoking Status: Never smoker Past Alcohol Use History: None Reported Past Drug Use History: None Reported - Past Family History Sister(s) Family Medical History: Cancer Brother(s) Family Medical History: Cancer Mother Family Medical History: Myocardial Infarction ([place]) Additional Family Medical History / Comment(s): Mother of a [place] at the age of 76yrs. Father History Unknown: Yes Medications and Allergies Home Medications Medication Instructions Recorded Confirmed Type Estradiol [Estrace] 2 mg PO DAILY 05/14/14 05/04/20 History Pantoprazole Sodium [Protonix] 40 mg PO BID 05/14/14 05/04/20 History Albuterol Nebulized [Ventolin 2.5 mg INHALATION RT-BID 08/16/18 05/04/20 History Nebulized] Ipratropium Nebulized [Atrovent 0.5 mg INHALATION RT-BID 11/13/18 05/04/20 Histo ry Nebulized 0.2 MG/ML] DULoxetine HCL [Cymbalta] 30 mg PO DAILY 10/06/19 05/04/20 History Albuterol Sulfate [Ventolin HFA] 1 - 2 puff INHALATION RT-Q6H PRN 10/29/19 05/04/20 History Acetaminophen [Tylenol Arthritis] 650 mg PO DAILY PRN 05/02/20 05/04/20 History Diclofenac Sodium Gel [Voltaren 4 gm TOPICAL QID PRN 05/02/20 05/04/20 History Gel] Glucosam/Chond/Hyalu/Cf Borate 1 tab PO DAILY 05/02/20 05/04/20 History [Move Free Joint Health Tablet] Lysine (Unknown Strength) 1 tab PO DAILY 05/02/20 05/04/20 History Nadolol [Corgard] 40 mg PO DAILY 05/02/20 05/04/20 History Promethazine/Dextromethorphan 5 ml PO Q6H PRN 05/02/20 05/04/20 History [Promethazine-Dm Syrup] Verapamil HCl [Verapamil ER] 120 mg PO AC-BRKFST 05/02/20 05/04/20 History Apixaban [Eliquis] 5 mg PO BID 05/04/20 05/04/20 History Lisinopril [Zestril] 10 mg PO DAILY #30 tab 05/04/20 05/04/20 Rx Allergies Allergy/AdvReac Type Severity Reaction Status Date / Time cephalexin monohydrate Allergy HIVES Verified 05/04/20 17:26 [From Keflex] diphenhydramine HCl Allergy SWELLING Verified 05/04/20 17:26 [From Benadryl] OF TONGUE, SOB enoxaparin [From Lovenox] Allergy Rash/Hives Verified 05/04/20 17:26 Penicillins Allergy SWELLING, Verified 05/04/20 17:26 HIVES aspirin AdvReac EXCESS Verified 05/04/20 17:26 BLEEDING sulfamethoxazole AdvReac Nausea & Verified 05/04/20 17:26 [From Bactrim] Vomiting trimethoprim [From Bactrim] AdvReac Nausea & Verified 05/04/20 17:26 Vomiting Physical Exam Vitals: Vital Signs Temp Pulse Pulse Resp BP BP Pulse Ox 05/04/20 20:25 87 20 117/64 100 05/04/20 20:08 74 16 106/51 100 05/04/20 19:58 114/58 05/04/20 19:52 94 16 131/98 100 05/04/20 19:39 97.0 F L 107 H 18 118/59 100 05/04/20 18:26 98.0 F 86 16 105/43 100 05/04/20 17:38 94 16 112/60 100 05/04/20 17:12 97 16 120/62 95 05/04/20 17:07 109 H 22 141/51 99 05/04/20 16:13 97.7 F 75 16 112/62 98 Intake and Output 05/04/20 05/04/20 05/04/20 06:59 14:59 22:59 Intake Total 2220 Output Total 440 Balance 1780 Intake: IV 1600 Blood Product 620 Rc As-1 Unit 310 [id number] Rc Pheresis As-3 Unit 310 [id number] Output: Urine 150 Estimated Blood Loss 290 Other: Weight 68.039 kg Constitutional: No acute distress, conversant, pleasant Eyes: Anicteric sclerae, moist conjunctiva, Pupils equal round reactive to light ENMT: NC/AT Oropharynx clear, no erythema, or exudates Neck: Supple, FROM, no masses, or JVD No carotid bruits No thyromegaly Lungs: Clear to auscultation Clear to percussion Normal respiratory effort, no accessory muscle use Cardiovascular: Heart regular in rate and rhythm, No murmurs, gallops, or rubs No peripheral edema Abdominal: Soft Nontender, no guarding, rebound or rigidity Abdomen moving with respiration Normoactive bowel sounds No hepatomegaly, No splenomegaly No palpable mass No abdominal wall hernia noted Skin: Normal temperature, tone, texture, turgor No induration No subcutaneous nodules No rash, lesions No ulcers Extremities: right groin with surgical dressing and MIREILLE drain , No digital cyanosis No clubbing Pedal pulses weak and symmetrical Radial pulses intact and symmetrical No calf tenderness Psychiatric: Alert and oriented to person, place and time Appropriate affect fair judgement Neuro Muscles Strength 4/5 in bialteral upper extremities , lower extremities limited exam due to immobilization post vascualr surgery Sensation to light touch grossly present throughout Cranial nerves II-XII grossly intact No focal sensory deficits Lymphatics: no palpable cervical or supraclavicular , or inguinal lymph nodes Results CBC & Chem 7: 05/04/20 16:34 05/04/20 16:34 Labs: Abnormal Lab Results - Last 24 Hours (Table) 05/04/20 05/04/20 05/04/20 Range/Units 16:34 16:34 17:15 RBC 2.67 L (3.80-5.40) m/uL Hgb 7.6 L D (11.4-16.0) gm/dL Hct 24.2 L (34.0-46.0) % Sodium 135 L (137-145) mmol/L Chloride 111 H (98-107) mmol/L Carbon Dioxide 19 L (22-30) mmol/L Glucose 118 H (74-99) mg/dL POC Glucose (mg/dL) (75-99) mg/dL Calcium 8.1 L (8.4-10.2) mg/dL Total Protein 5.1 L (6.3-8.2) g/dL Albumin 2.6 L (3.5-5.0) g/dL Crossmatch See Detail 05/04/20 Range/Units 20:39 RBC (3.80-5.40) m/uL Hgb (11.4-16.0) gm/dL Hct (34.0-46.0) % Sodium (137-145) mmol/L Chloride (98-107) mmol/L Carbon Dioxide (22-30) mmol/L Glucose (74-99) mg/dL POC Glucose (mg/dL) 116 H (75-99) mg/dL Calcium (8.4-10.2) mg/dL Total Protein (6.3-8.2) g/dL Albumin (3.5-5.0) g/dL Crossmatch Assessment and Plan Assessment: acute right inguinal hematoma secondary to bleeding from right femoral artery 24 hours post left heart cath POD zero post surgical repair acute blood loss anemia Plan patient was taking emergently for surgical repair hold anticoagulation follow up with vascular surgery pain control s/p 2 units PRBC IVF hydration drain care monitor peripheral vascular status monitoring inthe ICU chronic conditions moderate persistent asthma GERD Hypertension , resume home meds hyperlipidemia hypothyroid afib on anticoagulation , currently on hold chronic anemia , now with acute blood loss Preformed a thorough record review from recent hospitalization patient was discharged today post hospitalization for unstable angina patient had a left heart cath showing LAD proximal occlusion of 4050 percent cardiology recommended maximal medical therapy ad outpatient follow up CODE STATUS:full code DVT prophylaxis: mechanical Discussed with: Patient, ER, RN Anticipated length of stay > than [address]: home A total of 75 minutes was spent on the care of this complex patient more than 50% of the time was spent in counseling and care coordination.
[2020-05-05] MEDS: PANTOPRAZOLE 40 MG TABLET PO SCH ×3 (00:05→19:10)
--- NOTE | 2020-05-05 01:20 | CONS ---
CONSULTATION CHIEF COMPLAINT: Right groin hematoma. Lily is a 74-year-old lady with history of hypertension, coronary artery disease, paroxysmal atrial fibrillation who was discharged home early this morning following her admission with unstable angina for which she underwent cardiac catheterization on Tuesday. She was found to have moderate disease involving LAD that we opted to treat medically. She was discharged home in a stable condition. Did not have any groin hematoma or ecchymosis. She was sitting at home, suddenly felt discomfort and swelling in the right _groin came to the ER was found to have a large right groin hematoma for which she underwent emergent surgery with evacuation of hematoma and repair of the femoral artery site. At the time of my evaluation, she appears comfortable at rest, hemodynamically stable, remains in sinus rhythm and blood pressure is 117/80. She was anemic on presentation and received blood transfusion. Labs showed that the creatinine was 0.6. Troponin was negative. PAST MEDICAL HISTORY: Significant for coronary artery disease, hypertension, paroxysmal atrial fibrillation. MEDICATIONS: Medications at home include Eliquis 5 b.i.d., Cymbalta, Ventolin, Atrovent, Protonix, Corgard, verapamil. ALLERGIES: She has multiple drug allergies. They are charted and I reviewed them. FAMILY HISTORY: Negative for premature coronary artery disease. SOCIAL HISTORY: Negative for smoking. REVIEW OF SYSTEMS: Significant for right groin pain and hematoma. PHYSICAL EXAMINATION: On exam, patient appeared comfortable at rest. Vital signs are stable. Chest exam reveals good air entry bilaterally. Heart exam reveals first and second heart sounds. A systolic murmur at the apex. Abdomen is soft. Exam of extremities shows that the dorsalis pedis pulses are palpable bilaterally. Right groin, she is status post evacuation of hematoma. EKG shows sinus rhythm. ASSESSMENT: Status post catheterization with right groin hematoma, status post evacuation and repair of the arteriotomy site. PLAN: Will continue to monitor her. Check the CBC in the morning. Will withhold the antiplatelet or anticoagulants at this time. MMODL / IJN: [id number] / MTDD
[2020-05-05 04:43] LABS: Basophils % (A) 0 %; Eosinophils # (A) 0.2 k/uL (0-0.7); Eosinophils % (A) 2 %; HCT 25.8 % (34.0-46.0); HGB 8.5 gm/dL (11.4-16.0); Hypochromasia Moderate; Lymphocytes # (A) 1.4 k/uL (1.0-4.8); Lymphocytes % (A) 14 %; MCHC 32.9 g/dL (31.0-37.0); MCV 91.1 fL (80.0-100.0); Mean Platelet Volume 8.2; Monocytes # (A) 0.8 k/uL (0-1.0); Monocytes % (A) 9 %; Neutrophils # (A) 7.2 k/uL (1.3-7.7); Neutrophils % (A) 73 %; Platelet Count 206 k/uL (150-450); Poikilocytosis Slight; RBC 2.83 m/uL (3.80-5.40); RDW 15.2 % (11.5-15.5); WBC 9.8 k/uL (3.8-10.6)
[2020-05-05 05:00] LABS: African American GFR (CKD) >90 (>60 ml/min/1.73 sqM); Anion Gap 3 mmol/L; Blood Urea Nitrogen 15 mg/dL (7-17); Carbon Dioxide 21 mmol/L (22-30); Chloride 112 mmol/L (98-107); Glucose 111 mg/dL (74-99); Potassium 3.9 mmol/L (3.5-5.1); Sodium 136 mmol/L (137-145)
[2020-05-05 05:01] LABS: Calcium 7.2 mg/dL (8.4-10.2); Non-African American GFR(CKD) 90 (>60 ml/min/1.73 sqM)
[2020-05-05] MEDS ORDERED: VERAPAMIL SR 120 MG TABLET.ER PO SCH (07:30)
[2020-05-05] MEDS: IPRATROPIUM-ALBUTEROL 3 ML NEB INHALATION SCH ×2 (07:55→18:56)
[2020-05-05] MEDS: lisinopriL 10 MG TAB PO SCH (08:25)
[2020-05-05] MEDS: HYDROmorphone 1 MG/ML 1 ML SYRINGE IVP PRN ×2 (08:25→16:39)
[2020-05-05] MEDS ORDERED: ONDANSETRON 4 MG/2 ML VIAL IVP PRN (08:27)
[2020-05-05] MEDS: DULoxetine HCL 30 MG CAPSULE.DR PO SCH (08:33)
[2020-05-05] MEDS ORDERED: [UNRECOGNIZED DRUG - REMARK] PO SCH (09:00)
--- NOTE | 2020-05-05 09:33 | PN ---
PROGRESS NOTE Mrs. Oliver had a cardiac cath on Tuesday, went home on Tuesday, came back with a popping feeling in her groin and had a large hematoma. She underwent surgery with repair of femoral artery and evacuation of the hematoma. Apparently she had an Angio- Seal after the cardiac cath. Her hemoglobin is up to 8.5 after 2 units of blood. She is resting comfortably. Complains of pain. The hematoma appears to be larger based on the drawing on the right thigh area. I am requesting Dr. Byrne please re-evaluate the patient in this regard. Hemoglobin; however, appears to be stable. She is reasonably comfortable at this time. I am recommending that we discontinue verapamil. Patient has noncritical CAD. She is resting comfortably at this time but complains of significant discomfort even with slight movement in the legs. I have requested Dr. Byrne to see her. Will discontinue verapamil. Continue lisinopril and nadolol. Apparently, patient received fresh frozen plasma, packed RBCs yesterday and had surgery. PHYSICAL EXAMINATION: Revealed blood pressure 120/70, pulse rate is 68, sinus. No JVD. S1-S2 heard normally. No significant murmurs. Lungs revealed decent air entry. Abdomen is soft. Right groin hematoma is evident. There is a surgical bandage noted. RECOMMENDATION: I am recommending we hold verapamil and request Dr. Byrne to re-evaluate the patient. MMODL / IJN: [id number] /
--- NOTE | 2020-05-05 12:47 | P.CNPUL ---
History of Present Illness Consult date: 05/05/20 Chief complaint: Femoral bleeding History of present illness: I was consulted on this 74-year-old female patient for ICU care regarding a post cardiac catheterization hematoma that occurred in the right lower extremity/femoral area. The patient came into the hospital few days ago for chest pain. Due to concern of an acute coronary event, the patient underwent a cardiac catheterization and the patient was found to have 4050% lesion in the L AD. Medical treatment was offered and the patient was discharged home. Post cardiac catheterization, the patient was also started on anticoagulation as the patient was noted to have PAF. Her current rhythm is sinus. The patient following her discharge, started having swelling and pain in her right groin area and the pain was quite severe around 10 out of 10 and for that reason she was brought in back to the hospital. She was evaluated and CT angiogram that was done of the lower extremity showed bleeding and a large hematoma formation and the right thigh secondary to femoral artery bleed. At that point, rescue surgery was immediately involved and the patient was taken to the operating room and the patient had a repair of the right femoral artery bleed and evacuation of the hematoma. During the process, the patient received a total of 2 units of packed RBC. Currently the patient has a MIREILLE drain in the right thigh. The hematoma itself is relatively stable with probably some extension compared to yesterday. However, the area is quite soft and the patient has decent pulses in lower extremities bilaterally. Her pain is under good control. She denies having any chest pain. No other new complaints otherwise for now. She is on no anticoagulation. She was given Kcentra and TXA . she is able to talk and she is communicating and she has no specific complaints for now. No chest pain. No dizziness. No lightheadedness. Review of Systems Constitutional: Denies chills, Denies fever Eyes: denies as per HPI, denies blurred vision, denies bulging eye, denies decreased vision, denies diplopia, denies discharge, denies dry eye, denies irritation, denies itching, denies pain, denies photophobia, denies loss of peripheral vision, denies loss of vision, denies tunnel vision/blind spots Ears: deny: decreased hearing, ear discharge, earache, tinnitus Ears, nose, mouth and throat: Denies headache, Denies sore throat Breasts: absent: as per HPI, change in shape, gynecomastia, masses, nipple discharge, pain, skin changes, swelling Cardiovascular: Reports as per HPI Respiratory: Reports as per HPI Gastrointestinal: Reports as per HPI Genitourinary: Reports as per HPI Menstruation: Reports as per HPI Musculoskeletal: Reports as per HPI (5 pain on the right) Musculoskeletal: right: hip pain, hip swelling, absent: ankle pain, ankle stiffness, as per HPI Neurological: Reports as per HPI Psychiatric: Reports as per HPI Endocrine: Reports as per HPI Hematologic/Lymphatic: Reports as per HPI Past Medical History Past Medical History: Atrial Fibrillation, Asthma, Coronary Artery Disease (CAD), Cancer, Fibromyalgia, GERD/Reflux, Hypertension, Myocardial Infarction ([place]), Osteoarthritis ([place]), Rheumatoid Arthritis ([place]), Thyroid Disorder Additional Past Medical History / Comment(s): back pain, migraines ), occasional slight difficulty with swallowing, gastic ulcer, H-pylori, diverticular disease, , melanoma removed from face, kidney stones, Last Myocardial Infarction Date:: 2012 History of Any Multi-Drug Resistant Organisms: None Reported Past Surgical History: Back Surgery, Cholecystectomy, Heart Catheterization, Hysterectomy, Joint Replacement, Orthopedic Surgery Additional Past Surgical History / Comment(s): RODS & CAGES IN BACK, RT HIP REPLACEMENT, PARTIAL THYROIDECTOMY, RT KNEE REPLACEMENT, NECK SURGER- LIDIA AND CAGES. Heart cath w/ no intervention Past Anesthesia/Blood Transfusion Reactions: Previous Problems w/ Anesthesia, Postoperative Nausea & Vomiting (PONV) Additional Past Anesthesia/Blood Transfusion Reaction / Comment(s): hard to wake up Past Psychological History: No Psychological Hx Reported Smoking Status: Never smoker Past Alcohol Use History: None Reported Past Drug Use History: None Reported - Past Family History Sister(s) Family Medical History: Cancer Brother(s) Family Medical History: Cancer Mother Family Medical History: Myocardial Infarction ([place]) Additional Family Medical History / Comment(s): Mother of a [place] at the age of 76yrs. Father History Unknown: Yes Medications and Allergies Home Medications Medication Instructions Recorded Confirmed Type Estradiol [Estrace] 2 mg PO DAILY 05/14/14 05/04/20 History Pantoprazole Sodium [Protonix] 40 mg PO BID 05/14/14 05/04/20 History Albuterol Nebulized [Ventolin 2.5 mg INHALATION RT-BID 08/16/18 05/04/20 History Nebulized] Ipratropium Nebulized [Atrovent 0.5 mg INHALATION RT-BID 11/13/18 05/04/20 History Nebulized 0.2 MG/ML] DULoxetine HCL [Cymbalta] 30 mg PO DAILY 10/06/19 05/04/20 History Albuterol Sulfate [Ventolin HFA] 1 - 2 puff INHALATION RT-Q6H PRN 10/29/19 05/04/20 History Acetaminophen [Tylenol Arthritis] 650 mg PO DAILY PRN 05/02/20 05/04/20 History Diclofenac Sodium Gel [Voltaren 4 gm TOPICAL QID PRN 05/02/20 05/04/20 History Gel] Glucosam/Chond/Hyalu/Cf Borate 1 tab PO DAILY 05/02/20 05/04/20 History [Move Free Joint Health Tablet] Lysine (Unknown Strength) 1 tab PO DAILY 05/02/20 05/04/20 History Nadolol [Corgard] 40 mg PO DAILY 05/02/20 05/04/20 History Promethazine/Dextromethorphan 5 ml PO Q6H PRN 05/02/20 05/04/20 History [Promethazine-Dm Syrup] Verapamil HCl [Verapamil ER] 120 mg PO AC-BRKFST 05/02/20 05/04/20 History Apixaban [Eliquis] 5 mg PO BID 05/04/20 05/04/20 History Lisinopril [Zestril] 10 mg PO DAILY #30 tab 05/04/20 05/04/20 Rx Allergies Allergy/AdvReac Type Severity Reaction Status Date / Time cephalexin monohydrate Allergy HIVES Verified 05/04/20 17:26 [From Keflex] diphenhydramine HCl Allergy SWELLING Verified 05/04/20 17:26 [From Benadryl] OF TONGUE, SOB enoxaparin [From Lovenox] Allergy Rash/Hives Verified 05/04/20 17:26 Penicillins Allergy SWELLING, Verified 05/04/20 17:26 HIVES aspirin AdvReac EXCESS Verified 05/04/20 17:26 BLEEDING sulfamethoxazole AdvReac Nausea & Verified 05/04/20 17:26 [From Bactrim] Vomiting trimethoprim [From Bactrim] AdvReac Nausea & Verified 05/04/20 17:26 Vomiting Physical Exam Vitals: Vital Signs Temp Pulse Pulse Resp BP BP Pulse Ox 05/05/20 11:00 65 13 110/47 92 L 05/05/20 10:00 71 19 92/46 05/05/20 09:00 66 24 133/35 05/05/20 08:06 68 05/05/20 08:00 97.7 F 67 19 120/50 100 05/05/20 07:55 67 05/05/20 07:00 67 17 120/46 93 L 05/05/20 06:00 64 19 120/41 95 05/05/20 05:00 59 L 17 112/41 94 L 05/05/20 04:00 97.7 F 63 87 18 105/64 93 L 05/05/20 03:00 63 15 115/42 94 L 05/05/20 02:00 61 16 116/53 91 L 05/05/20 01:00 67 15 122/56 95 05/05/20 00:00 98.2 F 55 L 87 14 115/54 93 L 05/04/20 23:24 56 L 12 114/51 95 05/04/20 23:17 63 05/04/20 23:07 65 93 L 05/04/20 23:00 61 18 118/51 93 L 05/04/20 22:00 56 L 11 L 118/66 99 05/04/20 21:00 97.8 F 83 13 113/77 98 05/04/20 20:25 87 20 117/64 100 05/04/20 20:08 74 16 106/51 100 05/04/20 20:00 87 18 93 L 05/04/20 19:58 114/58 05/04/20 19:52 94 16 131/98 100 05/04/20 19:39 97.0 F L 107 H 18 118/59 100 05/04/20 18:26 98.0 F 86 16 105/43 100 05/04/20 18:00 99 104/43 100 05/04/20 17:38 94 16 112/60 100 05/04/20 17:12 97 16 120/62 95 05/04/20 17:07 109 H 22 141/51 99 05/04/20 17:00 85 100 05/04/20 16:33 74 05/04/20 16:13 97.7 F 75 16 112/62 98 Intake and Output 05/04/20 05/05/20 05/05/20 22:59 06:59 14:59 Intake Total 2610 950 770 Output Total 440 1165 120 Balance 2170 -215 650 Intake: IV 1989 950 530 0.9 390 950 530 Oral 240 Blood Product 620 Rc As-1 Unit 310 [id number] Rc Pheresis As-3 Unit 310 [id number] Output: Drainage 265 Right Groin 265 Urine 150 900 120 Estimated Blood Loss 290 Other: Voiding Method Indwelling Catheter Indwelling Catheter Weight 68.039 kg 76 kg Gen. appearance, comfortable likely distress Head exam was generally normal. There was no scleral icterus or corneal arcus. Mucous membranes were moist. Neck was supple and without jugular venous distension, thyromegaly, or carotid bruits. Carotids were easily palpable bilaterally. There was no adenopathy. Lungs were clear to auscultation and percussion, and with normal diaphragmatic excursion. No wheezes or rales were noted. Cardiac exam revealed the PMI to be normally situated and sized. The rhythm was regular and no extrasystoles were noted during several minutes of auscultation. The first and second heart sounds were normal and physiologic splitting of the second heart sound was noted. There were no murmurs, rubs, clicks, or gallops. Abdominal exam revealed normal bowel sounds. The abdomen was soft, non-tender, and without masses, organomegaly, or appreciable enlargement of the abdominal aorta. Extremities plus in the right groin area, there is obvious swelling in the right compared to the left, more so medially and there is some overlying ecchymosis. There is a MIREILLE drain which is currently in place. Lower extremities are otherwise equal and symmetrical pulses bilaterally. No cyanosis. No clubbing. Examination of the skin revealed no evidence of significant rashes, suspicious appearing nevi or other concerning lesions. With exception of this finding in the right femoral/in her thigh area on the right, the rest of the skin examination normal limits. Neurologically, the patient is awake and alert and is no focal neurological deficits. Results - Laboratory Findings CBC and BMP: 05/05/20 03:46 05/05/20 03:46 PT/INR, D-dimer PT 10.6 sec (9.0-12.0) 05/04/20 16:34 INR 1.0 (<1.2) 05/04/20 16:34 Abnormal lab findings: Abnormal Labs 05/04/20 05/04/20 05/04/20 16:34 16:34 17:15 RBC 2.67 L Hgb 7.6 L D Hct 24.2 L Sodium 135 L Chloride 111 H Carbon Dioxide 19 L Glucose 118 H POC Glucose (mg/dL) Calcium 8.1 L Total Protein 5.1 L Albumin 2.6 L Crossmatch See Detail 05/04/20 05/05/20 05/05/20 20:39 03:46 03:46 RBC 2.83 L Hgb 8.5 L Hct 25.8 L Sodium 136 L Chloride 112 H Carbon Dioxide 21 L Glucose 111 H POC Glucose (mg/dL) 116 H Calcium 7.2 L Total Protein Albumin Crossmatch Assessment and Plan Plan: 1 right femoral/inguinal hematoma formation secondary to a right femoral artery bleed post cardiac catheterization. The patient underwent emergent surgical vascular repair of the right femoral artery bleed. MIREILLE drain is in place. Hemoglobin stable. Hemodynamically stable. pulses to the lower extremity has been restored. MIREILLE drain is in place. 2 Blood loss anemia, hemoglobin is stable 3 coronary artery disease post cardiac catheterization with a 40/50% lesion in the LAD, receiving medical treatment 4 paroxysmal atrial fibrillation currently off anticoagulants and the current rhythm is sinus 5 right lower extremity pain, currently under well control 6 hypertension 7 hyperlipidemia 8 hypothyroidism 9 moderate persistent bronchial asthma currently inactive in stable Plan Monitor the hemoglobin monitor pulse lower extremities on the right Keep the MIREILLE drain in place Definitely no anticoagulants for now Will monitor this patient along with the vascular surgeon. We'll continue to follow.
--- NOTE | 2020-05-05 12:54 | P.PN ---
Subjective Progress Note Date: 05/05/20 Patient was seen and examined in the ICU. Patient is lying supine in bed. Patient is status postop day 1 for Repair of right femoral artery and evacuation of hematoma. Patient had underwent a cardiac cath 2 days prior, and came into the emergency room yesterday with complaints of severe leg pain swelling and hematoma. She was found to have a large right groin hematoma with active bleeding on CT angiogram. Her vital signs and lab work been stable this morning. She is status post 2 units of packed red blood cells. Patient does state she does have some mild to moderate discomfort in her lower abdomen and groin. Pressure dressing to right groin intact. Objective - Vital Signs Vital signs: Vital Signs Temp 97.7 F 05/05/20 08:00 Pulse 65 05/05/20 11:00 Resp 13 05/05/20 11:00 BP 110/47 05/05/20 11:00 Pulse Ox 92 L 05/05/20 11:00 Intake & Output 05/04/20 05/05/20 05/05/20 18:59 06:59 18:59 Intake Total 1400 2160 770 Output Total 1605 120 Balance 1400 555 650 Weight 68.039 kg 76 kg Intake: IV 1400 1540 530 0.9 1340 530 Oral 240 Blood Product 0 620 Rc As-1 Unit 0 310 [id number] Rc Pheresis As-3 Unit 310 [id number] Output: Drainage 265 Right Groin 265 Urine 1050 120 Estimated Blood Loss 290 Other: Voiding Method Indwelling Catheter - Exam General appearance: The patient is alert, oriented, in no acute distress. HET: Head is normocephalic and atraumatic. Neck: Supple without lymphadenopathy. Trachea midline. Heart: S1 S2. Regular rate and rhythm. Lungs: No crackles or wheezes are heard. Abdomen: Soft, tender, nondistended with bowel sounds. Extremities: Normal skin color and turgor. No cyanosis, rash, ulceration, clubbing, or edema. Radial and pedal pulses are 2/4 bilaterally. Patient is able to freely move bilateral lower extremity toes, sensorimotor intact. Right groin with pressure dressing. Patient has TTP along right groin, bruising and hematoma marked. Neurological: No focal deficits. Strength and sensation are grossly intact. - Labs CBC & Chem 7: 05/05/20 03:46 05/05/20 03:46 Labs: Abnormal Lab Results - Last 24 Hours (Table) 05/04/20 05/04/20 05/04/20 Range/Units 16:34 16:34 17:15 RBC 2.67 L (3.80-5.40) m/uL Hgb 7.6 L D (11.4-16.0) gm/dL Hct 24.2 L (34.0-46.0) % Sodium 135 L (137-145) mmol/L Chloride 111 H (98-107) mmol/L Carbon Dioxide 19 L (22-30) mmol/L Glucose 118 H (74-99) mg/dL POC Glucose (mg/dL) (75-99) mg/dL Calcium 8.1 L (8.4-10.2) mg/dL Total Protein 5.1 L (6.3-8.2) g/dL Albumin 2.6 L (3.5-5.0) g/dL Crossmatch See Detail 05/04/20 05/05/20 05/05/20 Range/Units 20:39 03:46 03:46 RBC 2.83 L (3.80-5.40) m/uL Hgb 8.5 L (11.4-16.0) gm/dL Hct 25.8 L (34.0-46.0) % Sodium 136 L (137-145) mmol/L Chloride 112 H (98-107) mmol/L Carbon Dioxide 21 L (22-30) mmol/L Glucose 111 H (74-99) mg/dL POC Glucose (mg/dL) 116 H (75-99) mg/dL Calcium 7.2 L (8.4-10.2) mg/dL Total Protein (6.3-8.2) g/dL Albumin (3.5-5.0) g/dL Crossmatch Assessment and Plan Assessment: #1 Postop day 1 for repair of right femoral artery and evacuation of hematoma. #2 Arterial bleeding status post cardiac catheterization right femoral artery with associated large hematoma of the right thigh. Plan: Patient's hemoglobin improved today to 8.5. Repeat CBC at 1800, transfuse if less than hemoglobin less than 8. ICU to continue medical management. Further recommendations to follow. The above dictated assessment and findings were discussed with Dr. Logan. The impression and plan of care have been directed as dictated.
--- NOTE | 2020-05-05 13:34 | P.PN ---
Subjective Progress Note Date: 05/05/20 The patient is 74-year-old female with a PMH of A. fib, hypertension, coronary artery disease, RA, and hypothyroidism presented to the ED initially on 05/02 with complaints of chest pain. She was evaluated by cardiology and had undergone a left heart catheterization on 05/03 via right femoral approach. The patient was subsequently discharged home on 05/04 with plans to follow with cardiology as an outpatient. Upon discharge, the patient had no complaints of right groin pain or swelling. Following discharge, the patient was apparently at home sitting in chair when she suddenly developed severe right groin pain and noted a swelling. The patient subsequently brought into the ED via EMS where a CT an giogram revealed a large right groin hematoma with evidence of active bleeding into the hematoma. The patient was given K-Centra with 2 units of PRBCs and 2 units of FFP. The patient underwent repair of the right femoral artery with evacuation of hematoma on 05/04 by vascular surgery. She was subsequently admitted to the medical ICU where she was seen and evaluated on 05/05 at the bedside. She reported significant improvement in her right groin pain, currently at 2 out of 10. She otherwise denied any additional complaints. She denied chest discomfort, fever, chills, shortness of breath, nausea, or vomiting. Objective - Vital Signs Vital signs: Vital Signs Temp 97.7 F 05/05/20 08:00 Pulse 65 05/05/20 11:00 Resp 13 05/05/20 11:00 BP 110/47 05/05/20 11:00 Pulse Ox 92 L 05/05/20 11:00 Intake & Output 05/04/20 05/05/20 05/05/20 18:59 06:59 18:59 Intake Total 1400 2160 770 Output Total 1605 120 Balance 1400 555 650 Weight 68.039 kg 76 kg Intake: IV 1400 1540 530 0.9 1340 530 Oral 240 Blood Product 0 620 Rc As-1 Unit 0 310 [id number] Rc Pheresis As-3 Unit 310 [id number] Output: Drainage 265 Right Groin 265 Urine 1050 120 Estimated Blood Loss 290 Other: Voiding Method Indwelling Catheter - Exam General: Non-toxic, in no acute distress, appears stated age, overweight HEENT: NC/AT, anicteric sclerae, moist conjunctiva, no lid-lag, PERRLA Cardiovascular: S1/S2 wnl, no murmurs, rubs, or gallops Lungs: Clear to auscultation, normal respiratory effort, no accessory muscle use Abdominal: Soft, non-tender, non-distended, no guarding, rebound, or rigidity Skin: Warm, dry, right hip ecchymosis within the marked boundaries Extremities: No edema or contractures Psychiatric: Alert and oriented to person, place and time, appropriate affect Neuro: CN II-XII grossly intact, no focal neuro deficits noted - Labs CBC & Chem 7: 05/05/20 03:46 05/05/20 03:46 Labs: Abnormal Lab Results - Last 24 Hours (Table) 05/04/20 05/04/20 05/04/20 Range/Units 16:34 16:34 17:15 RBC 2.67 L (3.80-5.40) m/uL Hgb 7.6 L D (11.4-16.0) gm/dL Hct 24.2 L (34.0-46.0) % Sodium 135 L (137-145) mmol/L Chloride 111 H (98-107) mmol/L Carbon Dioxide 19 L (22-30) mmol/L Glucose 118 H (74-99) mg/dL POC Glucose (mg/dL) (75-99) mg/dL Calcium 8.1 L (8.4-10.2) mg/dL Total Protein 5.1 L (6.3-8.2) g/dL Albumin 2.6 L (3.5-5.0) g/dL Crossmatch See Detail 05/04/20 05/05/20 05/05/20 Range/Units 20:39 03:46 03:46 RBC 2.83 L (3.80-5.40) m/uL Hgb 8.5 L (11.4-16.0) gm/dL Hct 25.8 L (34.0-46.0) % Sodium 136 L (137-145) mmol/L Chloride 112 H (98-107) mmol/L Carbon Dioxide 21 L (22-30) mmol/L Glucose 111 H (74-99) mg/dL POC Glucose (mg/dL) 116 H (75-99) mg/dL Calcium 7.2 L (8.4-10.2) mg/dL Total Protein (6.3-8.2) g/dL Albumin (3.5-5.0) g/dL Crossmatch Assessment and Plan Plan: Right inguinal hematoma secondary to right femoral artery bleeding, status post repair postoperative day #1 -Vascular surgery following -Continue to hold off on anticoagulants -Pain control -Hemoglobin improved to 8.5 with 2 units of PRBCs -Continue to monitor CBC every 12 hourly A. fib -Hold off on anticoagulations -Cardiac monitoring Chronic conditions: Hypothyroidism, hyperlipidemia, hypertension, GERD, asthma, coronary artery disease -Continue home meds DVT prophylaxis -IPCDs Discussed with: Patient Anticipated discharge date: 1-[address]: Home A total of 25 minutes was spent on the care of this complex patient more than 50% of the time was spent in counseling and care coordination.
[2020-05-05 18:02] LABS: HCT 22.1 % (34.0-46.0); HGB 7.3 gm/dL (11.4-16.0); Hypochromasia Moderate; MCH 30.4 pg (25.0-35.0); MCHC 33.2 g/dL (31.0-37.0); MCV 91.5 fL (80.0-100.0); Mean Platelet Volume 7.6; Platelet Count 199 k/uL (150-450); Poikilocytosis Moderate; RBC 2.42 m/uL (3.80-5.40); RDW 15.5 % (11.5-15.5); WBC 12.8 k/uL (3.8-10.6)
[2020-05-05] MEDS ORDERED: FUROSEMIDE 10 MG/ML 2 ML VIAL IV ONE (22:00)
[2020-05-06 04:30] LABS: Basophils # (A) 0.1 k/uL (0-0.2); Basophils % (A) 1 %; Eosinophils # (A) 0.5 k/uL (0-0.7); Eosinophils % (A) 5 %; HCT 23.3 % (34.0-46.0); HGB 7.6 gm/dL (11.4-16.0); Hypochromasia Slight; Lymphocytes # (A) 1.9 k/uL (1.0-4.8); Lymphocytes % (A) 18 %; MCH 29.1 pg (25.0-35.0); MCHC 32.4 g/dL (31.0-37.0); Monocytes # (A) 1.1 k/uL (0-1.0); Monocytes % (A) 11 %; Neutrophils # (A) 6.7 k/uL (1.3-7.7); Neutrophils % (A) 63 %; Platelet Count 206 k/uL (150-450); Poikilocytosis Slight; RBC 2.59 m/uL (3.80-5.40); RDW 15.5 % (11.5-15.5); WBC 10.5 k/uL (3.8-10.6)
[2020-05-06 04:47] LABS: African American GFR (CKD) >90 (>60 ml/min/1.73 sqM); Anion Gap 3 mmol/L; Blood Urea Nitrogen 11 mg/dL (7-17); Calcium 7.2 mg/dL (8.4-10.2); Carbon Dioxide 22 mmol/L (22-30); Chloride 108 mmol/L (98-107); Glucose 90 mg/dL (74-99); Non-African American GFR(CKD) >90 (>60 ml/min/1.73 sqM); Potassium 3.3 mmol/L (3.5-5.1); Sodium 133 mmol/L (137-145)
[2020-05-06] MEDS ORDERED: Potassium Replacement Protocol 1 EACH MISC MISCELLANE PRN (04:50)
[2020-05-06] MEDS: POTASSIUM CHLORIDE ER 20 MEQ TAB.ER PO SCH ×4 (05:39→15:31)
[2020-05-06] MEDS: PANTOPRAZOLE 40 MG TABLET PO SCH ×2 (06:27→17:24)
[2020-05-06] MEDS: IPRATROPIUM-ALBUTEROL 3 ML NEB INHALATION SCH ×2 (08:18→19:40)
[2020-05-06] MEDS: lisinopriL 10 MG TAB PO SCH (08:34)
[2020-05-06] MEDS: DULoxetine HCL 30 MG CAPSULE.DR PO SCH (08:34)
[2020-05-06] MEDS: HYDROmorphone 1 MG/ML 1 ML SYRINGE IVP PRN ×2 (08:34→18:14)
--- NOTE | 2020-05-06 10:40 | P.PN ---
Subjective Progress Note Date: 05/06/20 Principal diagnosis: Right femoral hematoma Patient was seen and examined. No acute events overnight. Patient reports worsening swelling in her right groin. Right groin drainage producing about 30 mL of bloody discharge. Patient reports well-controlled pain in her right groi n. She denies any chest pain, shortness breath or palpitations. No nausea or vomiting. No fever or chills. Objective - Vital Signs Vital signs: Vital Signs Temp 98.0 F 05/06/20 09:34 Pulse 71 05/06/20 10:00 Resp 18 05/06/20 10:00 BP 128/56 05/06/20 10:00 Pulse Ox 97 05/06/20 10:00 Intake & Output 05/05/20 05/06/20 05/06/20 18:59 06:59 18:59 Intake Total 1830 2930 320 Output Total 475 1295 330 Balance 1355 1635 -10 Weight 82.6 kg Intake: IV 1230 1100 200 0.9 1230 1100 200 Intake, IV Titration 1000 Amount Sodium Chloride 0.9% 1, 1000 000 ml @ 0 mls/hr IV .b3 bio ONE Rx#:[id number] Oral 600 220 120 Blood Product 0 610 0 Rc As-1 Unit 0 [id number] Rc Pheresis As-3 Unit 0 310 [id number] Output: Drainage 140 60 Right Groin 140 60 Urine 335 1235 330 Other: Voiding Method Indwelling Catheter Indwelling Catheter Indwelling Catheter - Exam General: [non toxic], [no distress], [appears at stated age] Derm: [warm], [dry] Head: [atraumatic], [normocephalic], [symmetric] Eyes: [EOMI], [no lid lag], [anicteric sclera] Mouth: [no lip lesion], [mucus membranes moist] Cardiovascular: [S1S2 irregular], [no murmur], [positive DP pulse bilateral], Lungs: [CTA bilateral], [no rhonchi, no rales] , [no accessory muscle use] Abdominal: [soft], [ nontender to palpation], [no guarding], [no appreciable organomegaly] Ext: [no gross muscle atrophy], [no edema], [no contractures], right groin swollen and erythematous with drain in place dressing clean dry and intact Neuro: [no focal neuro deficits] Psych: [Alert], [oriented], [appropriate affect] - Labs CBC & Chem 7: 05/06/20 03:46 05/06/20 03:46 Labs: Abnormal Lab Results - Last 24 Hours (Table) 05/04/20 05/05/20 05/06/20 Range/Units 17:15 17:40 03:46 WBC 12.8 H (3.8-10.6) k/uL RBC 2.42 L (3.80-5.40) m/uL Hgb 7.3 L (11.4-16.0) gm/dL Hct 22.1 L (34.0-46.0) % Monocytes # (0-1.0) k/uL Sodium 133 L (137-145) mmol/L Potassium 3.3 L (3.5-5.1) mmol/L Chloride 108 H (98-107) mmol/L Calcium 7.2 L (8.4-10.2) mg/dL Crossmatch See Detail 05/06/20 Range/Units 03:46 WBC (3.8-10.6) k/uL RBC 2.59 L (3.80-5.40) m/uL Hgb 7.6 L (11.4-16.0) gm/dL Hct 23.3 L (34.0-46.0) % Monocytes # 1.1 H (0-1.0) k/uL Sodium (137-145) mmol/L Potassium (3.5-5.1) mmol/L Chloride (98-107) mmol/L Calcium (8.4-10.2) mg/dL Crossmatch Assessment and Plan Assessment: Right inguinal hematoma secondary to right femoral artery bleeding, status post repair postoperative day #2 -Vascular surgery following -Continue to hold off on anticoagulants -Pain control -Hemoglobin improved to 8.5 with 2 units of PRBCs, down trended to 7.3, 7.3-7.6 with 1 PRBC. Additional PRBC ordered this morning. -Continue to monitor CBC every 12 hourly Hypokalemia -Potassium 3.3 -Replace via protocol -Repeat BMP tomorrow morning A. fib -Hold off on anticoagulations -Continue nadolol for rate control -Cardiac monitoring Chronic conditions: Hypothyroidism, hyperlipidemia, hypertension, GERD, asthma, coronary artery disease -Continue home meds DVT prophylaxis -IPCDs
--- NOTE | 2020-05-06 10:47 | PN ---
PROGRESS NOTE Mrs. Oliver had a hematoma in the right groin following cardiac cath requiring repair of femoral artery and evacuation of hematoma. Hemoglobin has dropped significantly from yesterday and therefore I will hold on the Xarelto. She is in and out of atrial fibrillation. At this time, she is in sinus rhythm. Vitals are stable,. no JVD. Hemoglobin is about 7.6. We will give 1 additional unit of blood. I am requesting Vascular Surgery to re-evaluate the patient in this regard. Vitals are stable. no JVD. S1-S2 heard normally, short systolic murmur noted. Lungs revealed decent air entry. Right groin has significant tenderness and hematoma is evident. The drainage in the MIREILLE drain is not much today. Continue current medications. Hold Xarelto until tomorrow. MMODL / IJN: [id number] /
--- NOTE | 2020-05-06 12:22 | P.PN ---
Subjective Progress Note Date: 05/06/20 Patient was seen and examined in the ICU. Patient is sitting up in a recliner Patient is status postop day 2 for Repair of right femoral artery and evacuation of hematoma. Patient had underwent a cardiac cath 2 days prior, and came into the emergency room in 24 hours with complaints of severe leg pain swelling and hematoma. She was found to have a large right groin hematoma with active bleeding on CT angiogram. Her hemoglobin dropped to 67.6 yesterday, was transfused with 1 unit of packed red blood cells. Hemoglobin came back this morning at 7.3, thus another unit of packed red cells was ordered, totalling 4 units which is currently infusing. Patient does state she does have some mild discomfort in her lower abdomen. Patient reports continued pain to the right thigh and calf. States the pain has improved however since before she came in. She denies any active bleeding. States she feels very tired. MIREILLE drain put out approximately 210 mL of serosanguineous fluid in the past 24 hours. Pressure dressing to right groin intact. Objective - Vital Signs Vital signs: Vital Signs Temp 97.8 F 05/06/20 11:37 Pulse 78 05/06/20 11:37 Resp 16 05/06/20 11:37 BP 123/52 05/06/20 11:37 Pulse Ox 96 05/06/20 11:34 Intake & Output 05/05/20 05/06/20 05/06/20 18:59 06:59 18:59 Intake Total 1830 2930 630 Output Total 475 1295 330 Balance 1355 1635 300 Weight 82.6 kg Intake: IV 1230 1100 200 0.9 1230 1100 200 Intake, IV Titration 1000 Amount Sodium Chloride 0.9% 1, 1000 000 ml @ 0 mls/hr IV .[employer] -MED ONE Rx#:[id number] Oral 600 220 120 Blood Product 0 610 310 Rc As-1 Unit 310 [id number] Rc Pheresis As-3 Unit 0 310 [id number] Output: Drainage 140 60 Right Groin 140 60 Urine 335 1235 330 Other: Voiding Method Indwelling Catheter Indwelling Catheter Indwelling Catheter - Exam General appearance: The patient is alert, oriented, in no acute distress. HET: Head is normocephalic and atraumatic. Neck: Supple without lymphadenopathy. Trachea midline. Heart: S1 S2. Regular rate and rhythm. Lungs: No crackles or wheezes are heard. Abdomen: Soft, tender, nondistended with bowel sounds. Extremities: Normal skin color and turgor. No cyanosis, rash, ulceration, or clubbing. Radial and pedal pulses are 2/4 bilaterally. Patient is able to freely move bilateral lower extremity toes, sensorimotor intact. Right groin with pressure dressing, incision is well approximated, with minimal serosanguineous drainage. MIREILLE drain site with minimal oozing. Patient has TTP along right groin, bruising and hematoma marked. Swelling to right lower extremity. Neurological: No focal deficits. Strength and sensation are grossly intact. - Labs CBC & Chem 7: 05/06/20 03:46 05/06/20 03:46 Labs: Abnormal Lab Results - Last 24 Hours (Table) 05/04/20 05/05/20 05/06/20 Range/Units 17:15 17:40 03:46 WBC 12.8 H (3.8-10.6) k/uL RBC 2.42 L (3.80-5.40) m/uL Hgb 7.3 L (11.4-16.0) gm/dL Hct 22.1 L (34.0-46.0) % Monocytes # (0-1.0) k/uL Sodium 133 L (137-145) mmol/L Potassium 3.3 L (3.5-5.1) mmol/L Chloride 108 H (98-107) mmol/L Calcium 7.2 L (8.4-10.2) mg/dL Crossmatch See Detail 05/06/20 Range/Units 03:46 WBC (3.8-10.6) k/uL RBC 2.59 L (3.80-5.40) m/uL Hgb 7.6 L (11.4-16.0) gm/dL Hct 23.3 L (34.0-46.0) % Monocytes # 1.1 H (0-1.0) k/uL Sodium (137-145) mmol/L Potassium (3.5-5.1) mmol/L Chloride (98-107) mmol/L Calcium (8.4-10.2) mg/dL Crossmatch Assessment and Plan Assessment: #1 Postop day 2 for repair of right femoral artery and evacuation of hematoma. #2 Arterial bleeding status post cardiac catheterization right femoral artery with associated large hematoma of the right thigh. Plan: Repeat CBC at 1600. Please apply SCDs to bilateral lower extremities. If hemoglobin continues to fall, likely will order ultrasound of the right lower extremity to reevaluate bleeding. Will order physical therapy. ICU to continue medical management. Further recommendations to follow. The above dictated assessment and findings were discussed with Dr. Logan. The impression and plan of care have been directed as dictated.
[2020-05-06 12:38] LABS: HCT 28.4 % (34.0-46.0); Hypochromasia Slight; MCH 30.6 pg (25.0-35.0); MCHC 33.3 g/dL (31.0-37.0); MCV 91.8 fL (80.0-100.0); Mean Platelet Volume 7.4; Platelet Count 156 k/uL (150-450); Poikilocytosis Slight; RBC 3.09 m/uL (3.80-5.40); RDW 15.2 % (11.5-15.5); WBC 11.3 k/uL (3.8-10.6)
[2020-05-06 12:41] LABS: HGB 9.4 gm/dL (11.4-16.0)
--- NOTE | 2020-05-06 13:55 | P.PN ---
Subjective Progress Note Date: 05/06/20 On today's evaluation of 05/06/2020, the patient is looking well and has no specific complaints. She is postop day #2 following a repair of a right femoral artery bleed and evacuation of a hematoma. The patient still has a MIREILLE drain in the right thigh area. The hematoma is still soft and there is no significant extension of the hematoma inferiorly. The patient has adequate pulses in the lower extremities bilaterally especially on the right. Hemoglobin stable at 7.3. The patient received a unit of packed red yesterday. The second unit of packed RBC will be given also today by vascular surgery. The patient MIREILLE drain put out approximately 210 mL of serosanguineous bloody material over the past 24 hours. Pressure dressing is in the right groin and is being monitored closely. The patient has no respiratory distress. No cough or sputum production. No chest pain. No shortness of breath. No other significant events overnight. The patient is able to sit up on the recliner. She is afebrile for now with a pulse second 96% on room air. Objective - Vital Signs Vital signs: Vital Signs Temp 97.8 F 05/06/20 12:00 Pulse 80 05/06/20 13:00 Resp 15 05/06/20 13:00 BP 135/56 05/06/20 13:00 Pulse Ox 95 05/06/20 13:00 Intake & Output 05/05/20 05/06/20 05/06/20 18:59 06:59 18:59 Intake Total 1830 2930 660 Output Total 475 1295 490 Balance 1355 1635 170 Weight 82.6 kg Intake: IV 1230 1100 230 0.9 1230 1100 230 Intake, IV Titration 1000 Amount Sodium Chloride 0.9% 1, 1000 000 ml @ 0 mls/hr IV .[employer] -MED ONE Rx#:[id number] Oral 600 220 120 Blood Product 0 610 310 Rc As-1 Unit 310 [id number] Rc Pheresis As-3 Unit 0 310 [id number] Output: Drainage 140 60 Right Groin 140 60 Urine 335 1235 490 Other: Voiding Method Indwelling Catheter Indwelling Catheter Indwelling Catheter - Exam Gen. appearance, comfortable likely distress Head exam was generally normal. There was no scleral icterus or corneal arcus. Mucous membranes were moist. Neck was supple and without jugular venous distension, thyromegaly, or carotid b ruits. Carotids were easily palpable bilaterally. There was no adenopathy. Lungs were clear to auscultation and percussion, and with normal diaphragmatic excursion. No wheezes or rales were noted. Cardiac exam revealed the PMI to be normally situated and sized. The rhythm was regular and no extrasystoles were noted during several minutes of auscultation. The first and second heart sounds were normal and physiologic splitting of the second heart sound was noted. There were no murmurs, rubs, clicks, or gallops. Abdominal exam revealed normal bowel sounds. The abdomen was soft, non-tender, and without masses, organomegaly, or appreciable enlargement of the abdominal aorta. Extremities plus in the right groin area, there is obvious swelling in the right compared to the left, more so medially and there is some overlying ecchymosis. There is a MIREILLE drain which is currently in place. Lower extremities are otherwise equal and symmetrical pulses bilaterally. No cyanosis. No clubbing. Examination of the skin revealed no evidence of significant rashes, suspicious appearing nevi or other concerning lesions. With exception of this finding in the right femoral/in her thigh area on the right, the rest of the skin examination normal limits. Neurologically, the patient is awake and alert and is no focal neurological deficits. - Labs CBC & Chem 7: 05/06/20 12:18 05/06/20 12:22 Labs: Abnormal Lab Results - Last 24 Hours (Table) 05/04/20 05/05/20 05/06/20 Range/Units 17:15 17:40 03:46 WBC 12.8 H (3.8-10.6) k/uL RBC 2.42 L (3.80-5.40) m/uL Hgb 7.3 L (11.4-16.0) gm/dL Hct 22.1 L (34.0-46.0) % Monocytes # (0-1.0) k/uL Sodium 133 L (137-145) mmol/L Potassium 3.3 L (3.5-5.1) mmol/L Chloride 108 H (98-107) mmol/L Calcium 7.2 L (8.4-10.2) mg/dL Crossmatch See Detail 07/14/20 07/14/20 Range/Units 03:46 12:18 WBC 11.3 H (3.8-10.6) k/uL RBC 2.59 L 3.09 L (3.80-5.40) m/uL Hgb 7.6 L 9.4 L D (11.4-16.0) gm/dL Hct 23.3 L 28.4 L (34.0-46.0) % Monocytes # 1.1 H (0-1.0) k/uL Sodium (137-145) mmol/L Potassium (3.5-5.1) mmol/L Chloride (98-107) mmol/L Calcium (8.4-10.2) mg/dL Crossmatch Assessment and Plan Plan: 1 right femoral/inguinal hematoma formation secondary to a right femoral artery bleed post cardiac catheterization. The patient underwent emergent surgical vascular repair of the right femoral artery bleed. MIREILLE drain is in place. Hemoglobin stable. Hemodynamically stable. pulses to the lower extremity has been restored. On today's follow-up, the patient is postop day #2. The patient has a soft hematoma and output from the MIREILLE drain has been noted which is in order of 10 mL over the past 24 hours. The patient will receive another unit of packed RBC. Hemoglobin today is at 7.3. 2 Blood loss anemia, hemoglobin is stable, will receive units of packed RBC per surgical recommendations. 3 coronary artery disease post cardiac catheterization with a 40/50% lesion in the LAD, receiving medical treatment 4 paroxysmal atrial fibrillation currently off anticoagulants and the current rhythm is sinus 5 right lower extremity pain, currently under well control 6 hypertension 7 hyperlipidemia 8 hypothyroidism 9 moderate persistent bronchial asthma currently inactive in stable Plan Monitor the hemoglobin monitor pulse lower extremities on the right Keep the MIREILLE drain in place Able to sit up on a recliner for today. The patient will be monitored very closely. Follow-up with vascular surgeon. We'll continue to follow.
[2020-05-07] MEDS: HYDROmorphone 1 MG/ML 1 ML SYRINGE IVP PRN ×3 (02:43→14:19)
[2020-05-07 04:53] LABS: Basophils # (A) 0.1 k/uL (0-0.2); Basophils % (A) 1 %; Eosinophils # (A) 0.5 k/uL (0-0.7); Eosinophils % (A) 5 %; HCT 28.5 % (34.0-46.0); HGB 9.1 gm/dL (11.4-16.0); Hypochromasia Slight; Lymphocytes # (A) 1.6 k/uL (1.0-4.8); Lymphocytes % (A) 15 %; MCH 29.4 pg (25.0-35.0); MCHC 31.8 g/dL (31.0-37.0); MCV 92.4 fL (80.0-100.0); Mean Platelet Volume 7.4; Monocytes # (A) 1.1 k/uL (0-1.0); Monocytes % (A) 11 %; Neutrophils # (A) 6.7 k/uL (1.3-7.7); Neutrophils % (A) 66 %; Platelet Count 159 k/uL (150-450); Poikilocytosis Slight; RBC 3.09 m/uL (3.80-5.40); RDW 15.3 % (11.5-15.5); WBC 10.2 k/uL (3.8-10.6)
[2020-05-07 05:02] LABS: African American GFR (CKD) >90 (>60 ml/min/1.73 sqM); Anion Gap 5 mmol/L; Blood Urea Nitrogen 8 mg/dL (7-17); Calcium 7.7 mg/dL (8.4-10.2); Carbon Dioxide 21 mmol/L (22-30); Chloride 107 mmol/L (98-107); Glucose 118 mg/dL (74-99); Non-African American GFR(CKD) >90 (>60 ml/min/1.73 sqM); Potassium 3.7 mmol/L (3.5-5.1); Sodium 133 mmol/L (137-145)
[2020-05-07] MEDS ORDERED: POTASSIUM CHLORIDE ER 20 MEQ TAB.ER PO SCH (06:00)
[2020-05-07] MEDS: PANTOPRAZOLE 40 MG TABLET PO SCH ×2 (06:55→20:27)
[2020-05-07] MEDS: IPRATROPIUM-ALBUTEROL 3 ML NEB INHALATION SCH ×2 (07:31→21:03)
[2020-05-07] MEDS: DULoxetine HCL 30 MG CAPSULE.DR PO SCH (09:04)
[2020-05-07] MEDS: lisinopriL 10 MG TAB PO SCH (09:04)
--- NOTE | 2020-05-07 09:16 | P.PN ---
Subjective Progress Note Date: 05/07/20 Seen and examined in the ICU. Patient sitting up in the recliner. Patient states she's been up since 1:30 this morning. She denies any acute changes through the night. Still complains of pain and soreness in the right lower extremity along with swelling. Logan catheter still in place. MIREILLE drain with approximately 80 mL of serosanguineous drainage through the night. Hemoglobin stable this morning and not 9.1 status post 4 units total packed red blood cells. Pressure dressing remains intact on the right groin. Dressing was changed at 1:30 in the morning per patient, and states that minimal drainage. His cool therapy has been ordered to help patient with ambulation and offset pressure on the right lower extremity. Objective - Vital Signs Vital signs: Vital Signs Temp 98.6 F 05/07/20 04:00 Pulse 70 05/07/20 08:00 Resp 20 05/07/20 08:00 BP 137/52 05/07/20 08:00 Pulse Ox 97 05/07/20 08:00 Intake & Output 05/06/20 05/07/20 05/07/20 18:59 06:59 18:59 Intake Total 1070 120 10 Output Total 840 935 60 Balance 230 -815 -50 Intake: IV 280 120 10 0.9 280 120 10 Oral 480 Blood Product 310 Rc As-1 Unit 310 [id number] Output: Drainage 110 80 Right Groin 110 80 Urine 730 855 60 Other: Voiding Method Indwelling Catheter Indwelling Catheter Indwelling Catheter - Exam General appearance: The patient is alert, oriented, in no acute distress. HET: Head is normocephalic and atraumatic. Neck: Supple without lymphadenopathy. Trachea midline. Heart: S1 S2. Regular rate and rhythm. Lungs: No crackles or wheezes are heard. Abdomen: Soft, tender, nondistended with bowel sounds. Extremities: Normal skin color and turgor. No cyanosis, rash, ulceration, or clubbing. Radial and pedal pulses are 2/4 bilaterally. Patient is able to freely move bilateral lower extremity toes, sensorimotor intact. Right groin with pressure dressing intact. MIREILLE drain with approximately 80 mL of serosanguineous drainage through the night. Patient has TTP along right groin, bruising and hematoma marked. Swelling to right lower extremity. Neurological: No focal deficits. Strength and sensation are grossly intact. - Labs CBC & Chem 7: 05/07/20 04:23 05/07/20 04:23 Labs: Abnormal Lab Results - Last 24 Hours (Table) 05/04/20 05/06/20 05/07/20 Range/Units 17:15 12:18 04:23 WBC 11.3 H (3.8-10.6) k/uL RBC 3.09 L (3.80-5.40) m/uL Hgb 9.4 L D (11.4-16.0) gm/dL Hct 28.4 L (34.0-46.0) % Monocytes # (0-1.0) k/uL Sodium 133 L (137-145) mmol/L Carbon Dioxide 21 L (22-30) mmol/L Glucose 118 H (74-99) mg/dL Calcium 7.7 L (8.4-10.2) mg/dL Crossmatch See Detail 05/07/20 Range/Units 04:23 WBC (3.8-10.6) k/uL RBC 3.09 L (3.80-5.40) m/uL Hgb 9.1 L (11.4-16.0) gm/dL Hct 28.5 L (34.0-46.0) % Monocytes # 1.1 H (0-1.0) k/uL Sodium (137-145) mmol/L Carbon Dioxide (22-30) mmol/L Glucose (74-99) mg/dL Calcium (8.4-10.2) mg/dL Crossmatch Assessment and Plan Assessment: #1 Postop day 2 for repair of right femoral artery and evacuation of hematoma. #2 Arterial bleeding status post cardiac catheterization right femoral artery with associated large hematoma of the right thigh. Plan: Patient's hemoglobin is stable this morning at 9.5. Patient has no further signs of bleeding. Cardiology may start anticoagulation this evening. Continue to monitor for signs of bleeding. Physical therapy to evaluate and work with pa cathy for ambulation. Continue with SCDs. Recommend incentive spirometer to bedside. The above dictated assessment and findings were discussed with Dr. Logan. The impression and plan of care have been directed as dictated.
--- NOTE | 2020-05-07 13:28 | P.PN ---
Subjective Progress Note Date: 05/07/20 Principal diagnosis: Right femoral hematoma Patient was seen and examined. No acute events overnight. Patient reports no changes with regard to her right groin. Right groin drainage producing about 30 mL of bloody discharge. Patient reports well-controlled pain in her right groin. She complains of swelling in the right groin. She denies any chest pain, shortness breath or palpitations. No nausea or vomiting. No fever or chills. Objective - Vital Signs Vital signs: Vital Signs Temp 98.2 F 05/07/20 12:00 Pulse 71 05/07/20 13:00 Resp 15 05/07/20 13:00 BP 132/54 05/07/20 13:00 Pulse Ox 98 05/07/20 13:00 Intake & Output 05/06/20 05/07/20 05/07/20 18:59 06:59 18:59 Intake Total 1070 120 930 Output Total 840 935 500 Balance 230 -815 430 Intake: IV 280 120 70 0.9 280 120 70 Oral 480 860 Blood Product 310 Rc As-1 Unit 310 [id number] Output: Drainage 110 80 30 Right Groin 110 80 30 Urine 730 855 470 Other: Voiding Method Indwelling Catheter Indwelling Catheter Indwelling Catheter - Exam General: [non toxic], [no distress], [appears at stated age] Derm: [warm], [dry] Head: [atraumatic], [normocephalic], [symmetric] Eyes: [EOMI], [no lid lag], [anicteric sclera] Mouth: [no lip lesion], [mucus membranes moist] Cardiovascular: [S1S2 irregular], [no murmur], [positive DP pulse bilateral], Lungs: [CTA bilateral], [no rhonchi, no rales] , [no accessory muscle use] Abdominal: [soft], [ nontender to palpation], [no guarding], [no appreciable organomegaly] Ext: [no gross muscle atrophy], [no edema], [no contractures], right groin s wollen and erythematous with drain in place dressing clean dry and intact Neuro: [no focal neuro deficits] Psych: [Alert], [oriented], [appropriate affect] - Labs CBC & Chem 7: 05/07/20 04:23 05/07/20 04:23 Labs: Abnormal Lab Results - Last 24 Hours (Table) 05/07/20 05/07/20 Range/Units 04:23 04:23 RBC 3.09 L (3.80-5.40) m/uL Hgb 9.1 L (11.4-16.0) gm/dL Hct 28.5 L (34.0-46.0) % Monocytes # 1.1 H (0-1.0) k/uL Sodium 133 L (137-145) mmol/L Carbon Dioxide 21 L (22-30) mmol/L Glucose 118 H (74-99) mg/dL Calcium 7.7 L (8.4-10.2) mg/dL Assessment and Plan Assessment: Right inguinal hematoma secondary to right femoral artery bleeding, status post repair postoperative day #3 -Vascular surgery following -Discussed with vascular surgery, anticoagulation to start tonight -Pain control -Hemoglobin improved to 8.5 with 2 units of PRBCs, down trended to 7.3, 7.3-7.6 with 1 PRBC. Hemoglobin improved from 7.6-9.4, 9.1 with 1 PRBC. -Continue to monitor CBC every 12 hourly A. fib -Hold off on anticoagulations -Continue nadolol for rate control -Cardiac monitoring Chronic conditions: Hypothyroidism, hyperlipidemia, hypertension, GERD, asthma, coronary artery disease -Continue home meds DVT prophylaxis -IPCDs Resolved: Hypokalemia [Patient admitted for right groin no hematoma secondary to cardiac cath. Hemoglobin stabilized. To start anticoagulation today. She is pending clinical improvement. Likely DC in 1-2 days.]
--- NOTE | 2020-05-07 14:02 | P.PN ---
Subjective Progress Note Date: 05/07/20 On 05/07/2020 patient is feeling well and the patient has no specific complaints. The patient received a total of 2 units of packed RBC yesterday. Hemoglobin responded nicely to 9.1. MIREILLE drain is in place in the right thigh and has been approximately 190 mL over the past 24 hours. The patient adequate pulses in lower extremities bilaterally especially on the right. No other new complaints otherwise for now. No nausea. No vomiting. No chest pain. The patient is postop day #3 following a right femoral artery bleed repair with evacuation of a right thigh hematoma. Objective - Vital Signs Vital signs: Vital Signs Temp 98.2 F 05/07/20 12:00 Pulse 71 05/07/20 13:00 Resp 15 05/07/20 13:00 BP 132/54 05/07/20 13:00 Pulse Ox 98 05/07/20 13:00 Intake & Output 05/06/20 05/07/20 05/07/20 18:59 06:59 18:59 Intake Total 1070 120 930 Output Total 840 935 500 Balance 230 -815 430 Intake: IV 280 120 70 0.9 280 120 70 Oral 480 860 Blood Product 310 Rc As-1 Unit 310 [id number] Output: Drainage 110 80 30 Right Groin 110 80 30 Urine 730 855 470 Other: Voiding Method Indwelling Catheter Indwelling Catheter Indwelling Catheter - Exam Gen. appearance, comfortable likely distress Head exam was generally normal. There was no scleral icterus or corneal arcus. Mucous membranes were moist. Neck was supple and without jugular venous distension, thyromegaly, or carotid bruits. Carotids were easily palpable bilaterally. There was no adenopathy. Lungs were clear to auscultation and percussion, and with normal diaphragmatic excursion. No wheezes or rales were noted. Cardiac exam revealed the PMI to be normally situated and sized. The rhythm was regular and no extrasystoles were noted during several minutes of auscultation. The first and second heart sounds were normal and physiologic splitting of the second heart sound was noted. There were no murmurs, rubs, clicks, or gallops. Abdominal exam revealed normal bowel sounds. The abdomen was soft, non-tender, and without masses, organomegaly, or appreciable enlargement of the abdominal aorta. Extremities plus in the right groin area, there is obvious swelling in the right compared to the left, more so medially and there is some overlying ecchymosis. There is a MIREILLE drain which is currently in place. Lower extremities are otherw ise equal and symmetrical pulses bilaterally. No cyanosis. No clubbing. Examination of the skin revealed no evidence of significant rashes, suspicious appearing nevi or other concerning lesions. With exception of this finding in the right femoral/in her thigh area on the right, the rest of the skin examination normal limits. Neurologically, the patient is awake and alert and is no focal neurological deficits. - Labs CBC & Chem 7: 05/07/20 04:23 05/07/20 04:23 Labs: Abnormal Lab Results - Last 24 Hours (Table) 05/07/20 05/07/20 Range/Units 04:23 04:23 RBC 3.09 L (3.80-5.40) m/uL Hgb 9.1 L (11.4-16.0) gm/dL Hct 28.5 L (34.0-46.0) % Monocytes # 1.1 H (0-1.0) k/uL Sodium 133 L (137-145) mmol/L Carbon Dioxide 21 L (22-30) mmol/L Glucose 118 H (74-99) mg/dL Calcium 7.7 L (8.4-10.2) mg/dL Assessment and Plan Plan: 1 right femoral/inguinal hematoma formation secondary to a right femoral artery bleed post cardiac catheterization. The patient underwent emergent surgical vascular repair of the right femoral artery bleed. MIREILLE drain is in place. Hemoglobin stable. Hemodynamically stable. The patient has adequate pulses to the lower extremity has been restored. On today's follow-up, the patient is postop day #3. The patient has a soft hematoma and output from the MIREILLE drain has been noted which is in order of 190 mL over the past 24 hours. The patient received a total of 2 units of packed RBC and hemoglobin is up to 9.1. The patient adequate pulses in lower extremities bilaterally. 2 Blood loss anemia, hemoglobin is stable, and the patient has been transudative total of 4 units of packed RBCs since admission., 3 coronary artery disease post cardiac catheterization with a 40/50% lesion in the LAD, receiving medical treatment 4 paroxysmal atrial fibrillation currently off anticoagulants and the current rhythm is sinus, No anticoagulants for now and this is to be cleared by vascular surgery 5 right lower extremity pain, currently under well control 6 hypertension 7 hyperlipidemia 8 hypothyroidism 9 moderate persistent bronchial asthma currently inactive in stable Plan Monitor the hemoglobin monitor pulse lower extremities on the right Keep the MIREILLE drain in place May restart Eliquis and the patient is cleared by vascular surgery and is being administered 4 history of proximal atrial fibrillation The patient can be transferred to medical surgical floor. The patient's condition is stable for now.
--- NOTE | 2020-05-07 14:27 | PN ---
PROGRESS NOTE Mrs. Oliver had an evacuation of hematoma, repair of femoral artery performed following cardiac cath. She is doing better today. She is maintaining sinus rhythm. If okayed by Vascular Surgery, I will start her on Xarelto at a lower dose of 15 mg daily. I discussed this with the patient. As soon as I get the okay from Vascular Surgery, we will start her on the Xarelto. I will also discontinue the aspirin. She is going to be on subcu heparin, if Xarelto will not be started. Vitals are stable, no JVD, S1, S2 heard normally. Lungs revealed decent air entry. Abdomen is soft. Right groin area still has a hematoma that is very stable. There is tenderness. Plan is to add Xarelto 15 mg if okayed by the vascular surgeon. MMODL / IJN: [id number] /
[2020-05-07] MEDS: APIXABAN 2.5 MG TABLET PO SCH (20:31)
[2020-05-08 06:39] LABS: Basophils # (A) 0.1 k/uL (0-0.2); Basophils % (A) 1 %; Eosinophils # (A) 0.5 k/uL (0-0.7); Eosinophils % (A) 6 %; HCT 26.9 % (34.0-46.0); HGB 8.7 gm/dL (11.4-16.0); Hypochromasia Slight; Lymphocytes # (A) 1.3 k/uL (1.0-4.8); Lymphocytes % (A) 17 %; MCH 30.5 pg (25.0-35.0); MCHC 32.5 g/dL (31.0-37.0); MCV 93.6 fL (80.0-100.0); Mean Platelet Volume 7.6; Monocytes # (A) 0.7 k/uL (0-1.0); Monocytes % (A) 9 %; Neutrophils # (A) 5.1 k/uL (1.3-7.7); Neutrophils % (A) 65 %; Platelet Count 170 k/uL (150-450); Poikilocytosis Slight; RBC 2.87 m/uL (3.80-5.40); RDW 15.6 % (11.5-15.5); WBC 7.8 k/uL (3.8-10.6)
[2020-05-08 06:45] LABS: African American GFR (CKD) >90 (>60 ml/min/1.73 sqM); Anion Gap 2 mmol/L; Blood Urea Nitrogen 6 mg/dL (7-17); Calcium 7.9 mg/dL (8.4-10.2); Carbon Dioxide 26 mmol/L (22-30); Chloride 107 mmol/L (98-107); Glucose 89 mg/dL (74-99); Non-African American GFR(CKD) >90 (>60 ml/min/1.73 sqM); Potassium 4.1 mmol/L (3.5-5.1); Sodium 135 mmol/L (137-145)
[2020-05-08] MEDS: PANTOPRAZOLE 40 MG TABLET PO SCH ×2 (07:04→17:49)
[2020-05-08] MEDS: IPRATROPIUM-ALBUTEROL 3 ML NEB INHALATION SCH ×2 (07:55→19:43)
[2020-05-08] MEDS: APIXABAN 2.5 MG TABLET PO SCH ×2 (08:11→20:02)
[2020-05-08] MEDS: lisinopriL 10 MG TAB PO SCH (08:11)
[2020-05-08] MEDS: DULoxetine HCL 30 MG CAPSULE.DR PO SCH (08:11)
--- NOTE | 2020-05-08 08:22 | P.PN ---
Subjective Progress Note Date: 05/08/20 Patient is seen and examined in the ICU. Patient is lying in bed, just finished her breakfast. She states she is still getting twinges of pain in her right groin, however pain and discomfort in the right lower extremity is about the same. Swelling has improved. Logan catheter was not discontinued, but will be discontinued this morning. Patient denies any shortness of breath or chest pain. Denies any fevers or chills through the night. Hemoglobin was stable at 8.7 this morning. Objective - Vital Signs Vital signs: Vital Signs Temp 97.8 F 05/08/20 04:00 Pulse 79 05/08/20 07:55 Resp 17 05/08/20 04:00 BP 137/57 05/08/20 04:00 Pulse Ox 96 05/08/20 04:00 Intake & Output 05/07/20 05/08/20 05/08/20 18:59 06:59 18:59 Intake Total 980 100 Output Total 850 940 70 Balance 130 -840 -70 Weight 83.3 kg Intake: IV 120 100 0.9 120 100 Oral 860 Output: Drainage 60 30 70 Right Groin 60 30 70 Urine 790 910 Other: Voiding Method Indwelling Catheter Indwelling Catheter - Exam General appearance: The patient is alert, oriented, in no acute distress. HET: Head is normocephalic and atraumatic. Neck: Supple without lymphadenopathy. Trachea midline. Heart: S1 S2. Regular rate and rhythm. Lungs: No crackles or wheezes are heard. Abdomen: Soft, tender, nondistended with bowel sounds. Extremities: Normal skin color and turgor. No cyanosis, rash, ulceration, or clubbing. Radial and pedal pulses are 2/4 bilaterally. Patient is able to freely move bilateral lower extremity toes, sensorimotor intact. Right groin incision well approximated with 4 x 4 dressing that is clean dry and intact. MIREILLE drain with approximately 70 mL of serosanguineous drainage through the night, approximately 10-15 milliliters of serosanguineous fluid currently. Patient has TTP along right groin, bruising and hematoma marked. Swelling to right thigh and lower extremity improving. SCDs on bilateral lower extremities. Neurological: No focal deficits. Strength and sensation are grossly intact. - Labs CBC & Chem 7: 05/08/20 05:32 05/08/20 05:32 Labs: Abnormal Lab Results - Last 24 Hours (Table) 05/08/20 05/08/20 Range/Units 05:32 05:32 RBC 2.87 L (3.80-5.40) m/uL Hgb 8.7 L (11.4-16.0) gm/dL Hct 26.9 L (34.0-46.0) % RDW 15.6 H (11.5-15.5) % Sodium 135 L (137-145) mmol/L BUN 6 L (7-17) mg/dL Creatinine 0.45 L (0.52-1.04) mg/dL Calcium 7.9 L (8.4-10.2) mg/dL Assessment and Plan Assessment: #1 Postop day 2 for repair of right femoral artery and evacuation of hematoma. #2 Arterial bleeding status post cardiac catheterization right femoral artery with associated large hematoma of the right thigh. Plan: Continue to monitor signs of bleeding. Continue with MIREILLE drain. Discontinue Logan catheter. Continue with physical therapy, increase ambulation as tolerated. Continue with SCDs bilateral lower extremities. Repeat labs in the morning. Transfuse as needed. The above dictated assessment and findings were discussed with Dr. oLgan. The impression and plan of care have been directed as dictated.
[2020-05-08] MEDS: HYDROmorphone 1 MG/ML 1 ML SYRINGE IVP PRN ×3 (09:59→20:02)
--- NOTE | 2020-05-08 12:45 | P.PN ---
Subjective Progress Note Date: 05/08/20 On 05/08/2020 and seeing the patient for a follow-up. The patient is doing well and the patient's condition is stable for now. The right groin hematoma is soft on today's evaluation. MIREILLE drain is in place and has been approximately 70 mL of serosanguineous material over the past 24 hours. The patient's hemoglobin is at 8.7. The patient is doing well. No other new complaints for no shortness of breath and no chest pain. Tolerating her diet. He was dynamically stable. Overall, she has received a total of 4 units of packed RBC during this process. Objective - Vital Signs Vital signs: Vital Signs Temp 97.8 F 05/08/20 04:00 Pulse 75 05/08/20 08:17 Resp 17 05/08/20 08:00 BP 137/57 05/08/20 04:00 Pulse Ox 96 05/08/20 04:00 Intake & Output 05/07/20 05/08/20 05/08/20 18:59 06:59 18:59 Intake Total 980 100 360 Output Total 428 142 5035 Balance 130 -840 -740 Weight 83.3 kg Intake: IV 120 100 0.9 120 100 Oral 860 360 Output: Drainage 60 30 100 Right Groin 60 30 100 Urine 102 335 9128 Other: Voiding Method Indwelling Catheter Indwelling Catheter Indwelling Catheter - Exam Gen. appearance, comfortable likely distress Head exam was generally normal. There was no scleral icterus or corneal arcus. Mucous membranes were moist. Neck was supple and without jugular venous distension, thyromegaly, or carotid bruits. Carotids were easily palpable bilaterally. There was no adenopathy. Lungs were clear to auscultation and percussion, and with normal diaphragmatic excursion. No wheezes or rales were noted. Cardiac exam revealed the PMI to be normally situated and sized. The rhythm was regular and no extrasystoles were noted during several minutes of auscultation. The first and second heart sounds were normal and physiologic splitting of the second heart sound was noted. There were no murmurs, rubs, clicks, or gallops. Abdominal exam revealed normal bowel sounds. The abdomen was soft, non-tender, and without masses, organomegaly, or appreciable enlargement of the abdominal aorta. Extremities plus in the right groin area, there is obvious swelling in the right compared to the left, more so medially and there is some overlying ecchymosis. There is a MIREILLE drain which is currently in place. Lower extremities are otherwise equal and symmetrical pulses bilaterally. No cyanosis. No clubbing. Examination of the skin revealed no evidence of significant rashes, suspicious appearing nevi or other concerning lesions. With exception of this finding in the right femoral/in her thigh area on the right, the rest of the skin examination normal limits. Neurologically, the patient is awake and alert and is no focal neurological deficits. - Labs CBC & Chem 7: 05/08/20 05:32 05/08/20 05:32 Labs: Abnormal Lab Results - Last 24 Hours (Table) 05/08/20 05/08/20 Range/Units 05:32 05:32 RBC 2.87 L (3.80-5.40) m/uL Hgb 8.7 L (11.4-16.0) gm/dL Hct 26.9 L (34.0-46.0) % RDW 15.6 H (11.5-15.5) % Sodium 135 L (137-145) mmol/L BUN 6 L (7-17) mg/dL Creatinine 0.45 L (0.52-1.04) mg/dL Calcium 7.9 L (8.4-10.2) mg/dL Assessment and Plan Plan: 1 right femoral/inguinal hematoma formation secondary to a right femoral artery bleed post cardiac catheterization. The patient underwent emergent surgical vascular repair of the right femoral artery bleed. MIREILLE drain is in place. Hemoglobin stable. Hemodynamically stable. The patient has adequate pulses to the lower extremity has been restored. On today's follow-up, the patient is postop day # 4. The patient has a soft hematoma and output from the MIREILLE drain has been noted which is in order of 70 mL and the patient's hematoma softer and the patient on expanding as much pain as she was earlier. 2 Blood loss anemia, hemoglobin is stable, and the patient has been transudative total of 4 units of packed RBCs since admission., And hemoglobin is stable for now at 8.7 3 coronary artery disease post cardiac catheterization with a 40/50% lesion in the LAD, receiving medical treatment 4 paroxysmal atrial fibrillation currently off anticoagulants and the current rhythm is sinus, No anticoagulants for now and this is to be cleared by vascular surgery 5 right lower extremity pain, currently under well control 6 hypertension 7 hyperlipidemia 8 hypothyroidism 9 moderate persistent bronchial asthma currently inactive in stable Plan Monitor the hemoglobin monitor pulse lower extremities on the right Keep the MIREILLE drain in place Eliquis has been restarted by cardiology upon the consent of vascular surgery The patient can be transferred to medical surgical floor. The patient's condition is stable for now.
[2020-05-08] MEDS ORDERED: SENNOSIDES 8.6 MG TAB PO PRN (13:06)
--- NOTE | 2020-05-08 14:30 | PN ---
PROGRESS NOTE Mrs. Oliver's hemoglobin is 8.7. She had a hematoma right groin after the catheterization requiring repair of femoral artery and evacuation of hematoma. She is doing better. Blood pressure is good. I am going to continue the anticoagulation for her a 2.5 mg of Eliquis b.i.d. for paroxysmal atrial fibrillation. She is maintaining sinus rhythm. Vitals are stable. No JVD. S1-S2 heard normally. No significant murmurs. Lungs are clear. Right groin area is less tender. PLAN: Plan is to continue current medication and move her to telemetry. MMODL / IJN: [id number] /
--- NOTE | 2020-05-08 16:50 | P.PN ---
Subjective Progress Note Date: 05/08/20 Principal diagnosis: Right femoral hematoma Patient was seen and examined. No acute events overnight. Patient reports slight improvement in her right groin swelling. Right groin continues to drain bloody serosanguineous fluid. Patient reports well-controlled pain in her right groin. She complains of continued pain in that area which makes it difficult for her to ambulate. She denies any chest pain, shortness breath or palpitations. No nausea or vomiting. No fever or chills. Objective - Vital Signs Vital signs: Vital Signs Temp 98.5 F 05/08/20 10:00 Pulse 75 05/08/20 10:00 Resp 22 05/08/20 16:00 BP 145/65 05/08/20 10:00 Pulse Ox 99 05/08/20 10:00 Intake & Output 05/07/20 05/08/20 05/08/20 18:59 06:59 18:59 Intake Total 980 100 720 Output Total 691 531 0084 Balance 130 -840 -680 Weight 83.3 kg Intake: IV 120 100 0.9 120 100 Oral 860 720 Output: Drainage 60 30 100 Right Groin 60 30 100 Urine 110 391 5238 Other: Voiding Method Indwelling Catheter Indwelling Catheter Indwelling Catheter - Exam General: [non toxic], [no distress], [appears at stated age] Derm: [warm], [dry] Head: [atraumatic], [normocephalic], [symmetric] Eyes: [EOMI], [no lid lag], [anicteric sclera] Mouth: [no lip lesion], [mucus membranes moist] Cardiovascular: [S1S2 regular], [no murmur], [positive DP pulse bilateral], Lungs: [CTA bilateral], [no rhonchi, no rales] , [no accessory muscle use] Abdominal: [soft], [ nontender to palpation], [no guarding], [no appreciable organomegaly] Ext: [no gross muscle atrophy], [no edema], [no contractures], right groin swollen and erythematous with drain in place, improved from yesterday Neuro: [no focal neuro deficits] Psych: [Alert], [oriented], [appropriate affect] - Labs CBC & Chem 7: 05/08/20 05:32 05/08/20 05:32 Labs: Abnormal Lab Results - Last 24 Hours (Table) 05/08/20 05/08/20 Range/Units 05:32 05:32 RBC 2.87 L (3.80-5.40) m/uL Hgb 8.7 L (11.4-16.0) gm/dL Hct 26.9 L (34.0-46.0) % RDW 15.6 H (11.5-15.5) % Sodium 135 L (137-145) mmol/L BUN 6 L (7-17) mg/dL Creatinine 0.45 L (0.52-1.04) mg/dL Calcium 7.9 L (8.4-10.2) mg/dL Assessment and Plan Assessment: Right inguinal hematoma secondary to right femoral artery bleeding, status post repair postoperative day #3 -Vascular surgery following -Patient started on Eliquis last night, will change to Xarelto tomorrow morning due to insurance coverage -Hemoglobin improved to 8.5 with 2 units of PRBCs, down trended to 7.3, 7.3-7.6 with 1 PRBC. Hemoglobin improved from 7.6-9.4, 9.1, 8.7 with 1 PRBC. -Daily CBC A. fib -Continue Eliquis tonight and start Xarelto tomorrow morning -Continue nadolol for rate control -Cardiac monitoring Chronic conditions: Hypothyroidism, hyperlipidemia, hypertension, GERD, asthma, coronary artery disease -Continue home meds DVT prophylaxis -IPCDs Resolved: Hypokalemia [Patient admitted for right groin no hematoma secondary to cardiac cath. Hemoglobin stabilized. Continue anticoagulation. Repeat CBC tomorrow morning. PT on board. She is pending clinical improvement. Likely DC in 1-2 days.]
[2020-05-09] MEDS: HYDROmorphone 1 MG/ML 1 ML SYRINGE IVP PRN ×4 (01:37→16:09)
[2020-05-09] MEDS: RIVAROXABAN 15 MG TAB PO SCH (08:00)
[2020-05-09] MEDS: lisinopriL 10 MG TAB PO SCH (08:00)
[2020-05-09] MEDS: PANTOPRAZOLE 40 MG TABLET PO SCH ×2 (08:00→16:08)
[2020-05-09] MEDS: DULoxetine HCL 30 MG CAPSULE.DR PO SCH (08:00)
[2020-05-09 08:06] LABS: Basophils # (A) 0.1 k/uL (0-0.2); Basophils % (A) 1 %; Eosinophils # (A) 0.4 k/uL (0-0.7); Eosinophils % (A) 5 %; HCT 28.6 % (34.0-46.0); HGB 9.2 gm/dL (11.4-16.0); Hypochromasia Slight; Lymphocytes # (A) 1.3 k/uL (1.0-4.8); Lymphocytes % (A) 16 %; MCH 29.5 pg (25.0-35.0); MCHC 32.1 g/dL (31.0-37.0); MCV 91.9 fL (80.0-100.0); Mean Platelet Volume 7.3; Monocytes # (A) 0.9 k/uL (0-1.0); Monocytes % (A) 11 %; Neutrophils % (A) 64 %; Platelet Count 211 k/uL (150-450); Poikilocytosis Slight; RBC 3.12 m/uL (3.80-5.40); RDW 15.2 % (11.5-15.5); WBC 7.9 k/uL (3.8-10.6)
[2020-05-09] MEDS: IPRATROPIUM-ALBUTEROL 3 ML NEB INHALATION SCH ×2 (08:18→21:54)
[2020-05-09 08:20] LABS: African American GFR (CKD) >90 (>60 ml/min/1.73 sqM); Anion Gap 5 mmol/L; Blood Urea Nitrogen 9 mg/dL (7-17); Carbon Dioxide 28 mmol/L (22-30); Chloride 102 mmol/L (98-107); Glucose 94 mg/dL (74-99); Non-African American GFR(CKD) >90 (>60 ml/min/1.73 sqM); Potassium 4.1 mmol/L (3.5-5.1); Sodium 135 mmol/L (137-145)
[2020-05-09 11:09] VITALS: BMI 31.5
--- NOTE | 2020-05-09 11:13 | P.PN ---
Subjective Progress Note Date: 05/09/20 Principal diagnosis: Right femoral/inguinal hematoma, blood loss anemia coronary artery disease status post cardiac catheterization On 05/08/2020 and seeing the patient for a follow-up. The patient is doing well and the patient's condition is stable for now. The right groin hematoma is soft on today's evaluation. MIREILLE drain is in place and has been approximately 70 mL of serosanguineous material over the past 24 hours. The patient's hemoglobin is at 8.7. The patient is doing well. No other new complaints for no shortness of breath and no chest pain. Tolerating her diet. He was dynamically stable. Overall, she has received a total of 4 units of packed RBC during this process. On 05/09/2020 patient seen in follow-up on general medical floor, she sitting up in a recliner, in no acute distress, she complains of being fatigued, but overall denies any acute distress, lung sounds are clear, no convincing shortness of breath, room air pulse ox is 96%, hemodynamically patient is stable, no fever or chills, right groin hematoma and right thigh hematoma is soft, and is working its way out of the outlined area, starting to turn yellow, and there is some developing pubic ecchymosis, but the area is soft. MIREILLE drain remains in place, there has been 190 mL of watery serosanguineous drainage in the last 24 hours. Today's hemoglobin is 9.2, no other acute events overnight Objective - Vital Signs Vital signs: Vital Signs Temp 98.4 F 05/09/20 07:08 Pulse 76 05/09/20 08:31 Resp 16 05/09/20 08:13 BP 130/52 05/09/20 07:08 Pulse Ox 96 05/09/20 01:05 Intake & Output 05/08/20 05/09/20 05/09/20 18:59 06:59 18:59 Intake Total 720 200 Output Total 1740 250 75 Balance -1020 -250 125 Intake: Oral 720 200 Output: Drainage 140 50 75 Right Groin 140 50 75 Urine 1600 200 Other: Voiding Method Indwelling Catheter Indwelling Catheter # Voids 4 1 - Exam GENERAL EXAM: Alert, very pleasant, 74-year-old white female, on room air, with a pulse ox of 96%, comfortable in no apparent distress. HEAD: Normocephalic/atraumatic. EYES: Normal reaction of pupils, equal size. Conjunctiva pink, sclera white. NOSE: Clear with pink turbinates. THROAT: No erythema or exudates. NECK: No masses, no JVD, no thyroid enlargement, no adenopathy. CHEST: No chest wall deformity. Symmetrical expansion. LUNGS: Equal air entry with no crackles, wheeze, rhonchi or dullness. CVS: Regular rate and rhythm, normal S1 and S2, no gallops, no murmurs, no rubs ABDOMEN: Soft, nontender. No hepatosplenomegaly, normal bowel sounds, no guarding or rigidity. EXTREMITIES: No clubbing, no edema, no cyanosis, 2+ pulses and upper and lower extremities. Right groin hematoma with some mild ecchymosis involving the pubic area, and some feeding yellowing ecchymosis on the right thigh which is starting to extend beyond the outlined area that was outlined initially, the area is soft, palpable pulses distally in proximally to the right groin hematoma, MIREILLE drain is in the right thigh, with watery serosanguineous drainage, there has been a total of 190 mL of output in last 24 hours MUSCULOSKELETAL: Muscle strength and tone normal. SPINE: No scoliosis or deformity SKIN: No rashes CENTRAL NERVOUS SYSTEM: Alert and oriented -3. No focal deficits, tone is normal in all 4 extremities. PSYCHIATRIC: Alert and oriented -3. Appropriate affect. Intact judgment and insight. - Labs CBC & Chem 7: 05/09/20 07:49 05/09/20 07:49 Labs: Abnormal Lab Results - Last 24 Hours (Table) 05/09/20 05/09/20 Range/Units 07:49 07:49 RBC 3.12 L (3.80-5.40) m/uL Hgb 9.2 L (11.4-16.0) gm/dL Hct 28.6 L (34.0-46.0) % Sodium 135 L (137-145) mmol/L Creatinine 0.51 L (0.52-1.04) mg/dL Calcium 8.0 L (8.4-10.2) mg/dL Assessment and Plan Plan: Assessment: 1 right femoral/inguinal hematoma formation secondary to a right femoral artery bleed post cardiac catheterization. The patient underwent emergent surgical vascular repair of the right femoral artery bleed. MIREILLE drain is in place. Hemoglobin stable. Hemodynamically stable. The patient has adequate pulses to the lower extremity has been restored. On today's follow-up, the patient is postop day # 5. The patient has a soft hematoma and output from the MIREILLE drain has been noted which is in order of 190 mL and the patient's hematoma softer and the patient on expanding as much pain as she was earlier. 2 Blood loss anemia, hemoglobin is stable, and the patient has been transudative total of 4 units of packed RBCs since admission., And hemoglobin is stable for now at 9.2 3 coronary artery disease post cardiac catheterization with a 40/50% lesion in the LAD, receiving medical treatment 4 paroxysmal atrial fibrillation currently off anticoagulants and the current rhythm is sinus, No anticoagulants for now and this is to be cleared by vascular surgery 5 right lower extremity pain, currently under well control 6 hypertension 7 hyperlipidemia 8 hypothyroidism 9 moderate persistent bronchial asthma currently inactive in stable Plan: Hemodynamically patient is stable, today's hemoglobin is 9.2, right groin hematoma is soft, distal pulses are palpable, MIREILLE drain in place. Eliquis has been restarted by cardiology, and the hematoma has not gotten any worse. Acute issues overnight, no complaints of shortness of breath or chest pain, feels slightly fatigued, but no acute distress. Pulmonary/critical care service will sign off and follow on as-needed basis I performed a history & physical examination of the patient and discussed their management with my nurse practitioner, Roxane Green. I reviewed the nurse practitioner's note and agree with the documented findings and plan of care. Lung sounds are positive for clear breath sounds. The findings and the impression was discussed with the patient. I attest to the documentation by the nurse practitioner. Time with Patient: Less than 30
--- NOTE | 2020-05-09 12:39 | P.PN ---
Subjective Progress Note Date: 05/09/20 Principal diagnosis: Right femoral hematoma Patient was seen and examined. No acute events overnight. Patient reports slight improvement in her right groin swelling. Right groin continues to drain bloody serosanguineous fluid. Patient reports well-controlled pain in her right groin. She complains of continued pain in that area which makes it difficult for her to ambulate. She denies any chest pain, shortness breath or palpitations. No nausea or vomiting. No fever or chills. Overall, not much changed since yesterday. Objective - Vital Signs Vital signs: Vital Signs Temp 98.4 F 05/09/20 07:08 Pulse 76 05/09/20 08:31 Resp 16 05/09/20 08:13 BP 130/52 05/09/20 07:08 Pulse Ox 96 05/09/20 01:05 Intake & Output 05/08/20 05/09/20 05/09/20 18:59 06:59 18:59 Intake Total 720 200 Output Total 1740 250 105 Balance -1020 -250 95 Weight 83.3 kg Intake: Oral 720 200 Output: Drainage 140 50 105 Right Groin 140 50 105 Urine 1600 200 Other: Voiding Method Indwelling Catheter Indwelling Catheter # Voids 4 1 - Exam General: [non toxic], [no distress], [appears at stated age] Derm: [warm], [dry] Head: [atraumatic], [normocephalic], [symmetric] Eyes: [EOMI], [no lid lag], [anicteric sclera] Mouth: [no lip lesion], [mucus membranes moist] Cardiovascular: [S1S2 regular], [no murmur], [positive DP pulse bilateral], Lungs: [CTA bilateral], [no rhonchi, no rales] , [no accessory muscle use] Abdominal: [soft], [ nontender to palpation], [no guarding], [no appreciable organomegaly] Ext: [no gross muscle atrophy], [no edema], [no contractures], right groin swollen and erythematous with drain in place, improved from yesterday Neuro: [no focal neuro deficits] Psych: [Alert], [oriented], [appropriate affect] - Labs CBC & Chem 7: 05/09/20 07:49 07/17/20 07:49 Labs: Abnormal Lab Results - Last 24 Hours (Table) 05/09/20 05/09/20 Range/Units 07:49 07:49 RBC 3.12 L (3.80-5.40) m/uL Hgb 9.2 L (11.4-16.0) gm/dL Hct 28.6 L (34.0-46.0) % Sodium 135 L (137-145) mmol/L Creatinine 0.51 L (0.52-1.04) mg/dL Calcium 8.0 L (8.4-10.2) mg/dL Assessment and Plan Assessment: Right inguinal hematoma secondary to right femoral artery bleeding, status post repair postoperative day #4 -Vascular surgery following -Continue Xarelto at lower dose 15 mg by mouth daily. -Hemoglobin improved to 8.5 with 2 units of PRBCs, down trended to 7.3, 7.3-7.6 with 1 PRBC. Hemoglobin improved from 7.6-9.4, 9.1, 8.7, 9.2 with 1 PRBC. -Daily CBC A. fib -Continue Eliquis tonight and start Xarelto tomorrow morning -Continue nadolol for rate control -Cardiac monitoring Chronic conditions: Hypothyroidism, hyperlipidemia, hypertension, GERD, asthma, coronary artery disease -Continue home meds DVT prophylaxis -IPCDs Resolved: Hypokalemia [Patient admitted for right groin no hematoma secondary to cardiac cath. Hemoglobin stabilized. Continue anticoagulation. Repeat CBC tomorrow morning. PT on board. Continue to monitor for signs of bleeding. Likely DC in 1-2 days.]
--- NOTE | 2020-05-09 12:53 | P.PN ---
Subjective HISTORY OF PRESENTING ILLNESS This is a pleasant 74-year-old past medical history significant for coronary artery disease, paroxysmal atrial fibrillation and hypertension.. She follows in the office with Dr. Freeman. She is currently being treated for right groin hematoma status post cardiac catheterization on Tuesday. She underwent emergent evacuation and repair of the femoral artery per vascular surgery. She is seen and examined sitting up in the chair bleeding in no acute distress. She denies symptoms of chest pain or shortness of breath. She continues to have discomfort at the right femoral site. Blood pressure 130/52 heart rate 76 afebrile and maintaining oxygen saturation on room air. Laboratory data reviewed, WBC 7.9, hgb 9.2, plt 211, sodium 135, potassium 4.1, creatinine 0.51. Currently maintained on lisinopril 10 mg daily, nadolol 40 mg daily and xarelto 15 mg daily. PHYSICAL EXAMINATION CONSTITUTIONAL: No apparent distress. HEENT: Head is normocephalic. Pupils are equal, round. Sclerae anicteric. Mucous membranes of the mouth are moist. No JVD. No carotid bruit. CHEST EXAMINATION: Lungs are clear to auscultation. No chest wall tenderness is noted on palpation or with deep breathing. HEART EXAMINATION: Regular rate and rhythm. S1, S2 heard. No murmurs, gallops or rub. EXTREMITIES: 2+ peripheral pulses, no lower extremity edema and no calf tenderness. Right femoral site with ongoing swelling, echhymosis, dressing place and MIREILLE drain with serousangiunous drainage in the bulb. ASSESSMENT Right femoral artery repair and hematoma evacuation Coronary artery disease Paroxysmal atrial fibrillation on termite inspector anti-coagulation Hypertension Dyslipidemia PLAN Clinically stable on current medical regimen. Eliquis was changed to xarelto secondary to cost per the case management team. Nurse Practitioner note has been reviewed, I agree with a documented findings and plan of care. Patient was seen and examined. Objective - Vital Signs Vital signs: Vital Signs Temp 98.4 F 05/09/20 07:08 Pulse 76 05/09/20 08:31 Resp 16 05/09/20 08:13 BP 130/52 05/09/20 07:08 Pulse Ox 96 05/09/20 01:05 Intake & Output 05/08/20 05/09/20 05/09/20 18:59 06:59 18:59 Intake Total 720 200 Output Total 1740 250 75 Balance -1020 -250 125 Weight 83.3 kg Intake: Oral 720 200 Output: Drainage 140 50 75 Right Groin 140 50 75 Urine 1600 200 Other: Voiding Method Indwelling Catheter Indwelling Catheter # Voids 4 1 - Labs CBC & Chem 7: 05/09/20 07:49 05/09/20 07:49 Labs: Abnormal Lab Results - Last 24 Hours (Table) 05/09/20 05/09/20 Range/Units 07:49 07:49 RBC 3.12 L (3.80-5.40) m/uL Hgb 9.2 L (11.4-16.0) gm/dL Hct 28.6 L (34.0-46.0) % Sodium 135 L (137-145) mmol/L Creatinine 0.51 L (0.52-1.04) mg/dL Calcium 8.0 L (8.4-10.2) mg/dL
--- NOTE | 2020-05-09 15:32 | P.PN ---
Subjective Progress Note Date: 05/09/20 She was seen ambulating in the hallway with physical therapy this morning. Patient looks like she's feeling better. Patient states she is feeling better, however still complains of right extremity and groin pain. MIREILLE drain intact with approximately 90 ml serosanguineous drainage over the past 24 hours. Patient denies any fever, chills, shortness of breath or chest pain. She does state that she still feels tired. Logan catheter was discontinued. Denies any bleeding from the right groin. Hemoglobin was stable this morning at 9.2. Objective - Vital Signs Vital signs: Vital Signs Temp 98.1 F 05/09/20 14:23 Pulse 69 05/09/20 14:23 Resp 20 05/09/20 14:23 BP 149/69 05/09/20 14:23 Pulse Ox 96 05/09/20 14:23 Intake & Output 05/08/20 05/09/20 05/09/20 18:59 06:59 18:59 Intake Total 720 400 Output Total 1740 250 105 Balance -1020 -250 295 Weight 83.3 kg Intake: Oral 720 400 Output: Drainage 140 50 105 Right Groin 140 50 105 Urine 1600 200 Other: Voiding Method Indwelling Catheter Indwelling Catheter # Voids 4 2 - Exam General appearance: The patient is alert, oriented, in no acute distress. HET: Head is normocephalic and atraumatic. Neck: Supple without lymphadenopathy. Trachea midline. Heart: S1 S2. Regular rate and rhythm. Lungs: No crackles or wheezes are heard. Abdomen: Soft, tender, nondistended with bowel sounds. Extremities: Normal skin color and turgor. No cyanosis, rash, ulceration, or clubbing. Radial and pedal pulses are 2/4 bilaterally. Patient is able to freely move bilateral lower extremity toes, sensorimotor intact. Right groin incision well approximated with 4 x 4 dressing that is clean dry and intact. MIREILLE drain with approximately 90 liters of serosanguineous drainage over the past 24 hours. Patient has TTP along right groin, bruising and hematoma marked. Swelling to right thigh and lower extremity. SCDs on bilateral lower extremities. Neurological: No focal deficits. Strength and sensation are grossly intact. - Labs CBC & Chem 7: 05/09/20 07:49 05/09/20 07:49 Labs: Abnormal Lab Results - Last 24 Hours (Table) 05/09/20 05/09/20 Range/Units 07:49 07:49 RBC 3.12 L (3.80-5.40) m/uL Hgb 9.2 L (11.4-16.0) gm/dL Hct 28.6 L (34.0-46.0) % Sodium 135 L (137-145) mmol/L Creatinine 0.51 L (0.52-1.04) mg/dL Calcium 8.0 L (8.4-10.2) mg/dL Assessment and Plan Assessment: #1 Postop day 2 for repair of right femoral artery and evacuation of hematoma. #2 Arterial bleeding status post cardiac catheterization right femoral artery with associated large hematoma of the right thigh. Plan: Continue to monitor signs of bleeding. We will discontinue MIREILLE drain either later today or tomorrow.. Discontinue Logan catheter. Continue with physical therapy, increase ambulation as tolerated. Continue with SCDs bilateral lower extremities. Repeat labs in the morning. Transfuse as needed. The above dictated assessment and findings were discussed with Dr. Logan. The impression and plan of care have been directed as dictated.
[2020-05-09] MEDS: ESTRADIOL 2 MG PO SCH ×2 (18:54→23:40)
[2020-05-10] MEDS: ESTRADIOL 2 MG PO SCH (01:36)
[2020-05-10] MEDS: IPRATROPIUM-ALBUTEROL 3 ML NEB INHALATION SCH ×2 (07:29→20:58)
[2020-05-10] MEDS: HYDROcodone/APAP 5-325MG 1 EACH TAB PO PRN ×3 (08:08→20:37)
[2020-05-10] MEDS: RIVAROXABAN 15 MG TAB PO SCH (08:09)
[2020-05-10] MEDS: DULoxetine HCL 30 MG CAPSULE.DR PO SCH (08:09)
[2020-05-10] MEDS: PANTOPRAZOLE 40 MG TABLET PO SCH ×2 (08:09→17:31)
[2020-05-10] MEDS: lisinopriL 10 MG TAB PO SCH (08:09)
[2020-05-10 09:31] LABS: HCT 28.9 % (34.0-46.0); HGB 9.4 gm/dL (11.4-16.0); Hypochromasia Slight; MCH 29.9 pg (25.0-35.0); MCHC 32.5 g/dL (31.0-37.0); MCV 92.1 fL (80.0-100.0); Mean Platelet Volume 7.5; Platelet Count 216 k/uL (150-450); RBC 3.14 m/uL (3.80-5.40); RDW 14.8 % (11.5-15.5); WBC 7.9 k/uL (3.8-10.6)
--- NOTE | 2020-05-10 10:29 | P.DS ---
Providers Date of admission: 05/04/20 17:58 Expected date of discharge: 05/10/20 Attending physician: Audrey Grissom DO Consults: 05/04/20 17:58 Consult Physician Routine Consulting Provider: Trevor Adan Consult Reason/Comments: icu Do you want consulting provider notified?: Yes Consult Physician Routine Consulting Provider: Chris Freeman Consult Reason/Comments: known Do you want consulting provider notified?: Yes Consult Physician Urgent Consulting Provider: Andrzej Kenny Consult Reason/Comments: known Do you want consulting provider notified?: Yes [facility] Course: 74-year-old female with PMH of atrial fibrillation on anticoagulation coronary artery disease results to the hospital a few hours after discharge postop hospitalization for unstable angina. She had a left heart cath through the right groin that showed 40-50% proximal occlusion of the LAD. When patient went home, she felt a sudden onset of pain in her right groin noted with increased swelling. She was evaluated in the ED, CT angiogram showed hematoma around the right femoral artery with evidence of acute active bleeding. She was emergently taken to the OR by vascular surgery who evacuated the hematoma and repair of the right femoral artery. She was given 4 units of PRBC during her hospitalization. Her hemoglobin was stabilized after her procedure and cardiology was consulted to resume anticoagulation for her A. fib. She was started on Xarelto at 15 mg by mouth daily. Her hemoglobin remained stable and she was cleared for discha rge from a vascular surgery standpoint. Her home medications were resumed during her hospitalization. Patient was seen and examined. No acute events overnight. Patient reports excruciating pain in her right groin, 10 in severity. Pain is relieved with current pain medications. She reports difficulties ambulating because of the swelling in the pain in her right groin. She denies any chest pain, palpitations. No nausea or vomiting. No fever or chills. No dizziness. General: [non toxic], [no distress], [appears at stated age] Derm: [warm], [dry] Head: [atraumatic], [normocephalic], [symmetric] Eyes: [EOMI], [no lid lag], [anicteric sclera] Mouth: [no lip lesion], [mucus membranes moist] Cardiovascular: [S1S2 regular], [no murmur], [positive DP pulse bilateral], Lungs: [CTA bilateral], [no rhonchi, no rales] , [no accessory muscle use] Abdominal: [soft], [ nontender to palpation], [no guarding], [no appreciable organomegaly] Ext: [no gross muscle atrophy], [no edema], [no contractures], right groin swollen and erythematous with a MIREILLE drain in place, improved from yesterday Neuro: [no focal neuro deficits] Psych: [Alert], [oriented], [appropriate affect] Right inguinal hematoma secondary to right femoral artery bleeding, status post repair postoperative day #5 -Vascular surgery following -Continue Xarelto at lower dose 15 mg by mouth daily. -Hemoglobin improved to 8.5 with 2 units of PRBCs, down trended to 7.3, 7.3-7.6 with 1 PRBC. Hemoglobin improved from 7.6-9.4, 9.1, 8.7, 9.2, 9.4 with 1 PRBC. -Daily CBC A. fib -Continue Xarelto for anticoagulation -Continue nadolol for rate control -Cardiac monitoring Chronic conditions: Hypothyroidism, hyperlipidemia, hypertension, GERD, asthma, coronary artery disease -Continue home meds Resolved: Hypokalemia [Patient admitted for right groin no hematoma secondary to cardiac cath. Hemoglobin stabilized. Continue anticoagulation. Vascular surgery to remove MIREILLE drain?. Plans on possible DC home today or tomorrow with vascular surgery clearance. Patient encouraged to increase ambulation in preparation for discharge. This complex DC took 35 minutes.] Pertinent Studies: Lower extremity CTA Procedures: Repair of right femoral artery, evacuation of hematoma Patient Condition at Discharge: Stable Plan - Discharge Summary New Discharge Prescriptions: New Rivaroxaban [Xarelto] 15 mg PO DAILY #30 tab HYDROcodone/APAP 5-325MG [Ashby 5-325] 1 each PO Q4HR PRN #18 tab PRN Reason: Pain Rivaroxaban [Xarelto] 15 mg PO DAILY tab Continue Pantoprazole Sodium [Protonix] 40 mg PO BID Estradiol [Estrace] 2 mg PO DAILY Albuterol Nebulized [Ventolin Nebulized] 2.5 mg INHALATION RT-BID Ipratropium Nebulized [Atrovent Nebulized 0.2 MG/ML] 0.5 mg INHALATION RT-BID DULoxetine HCL [Cymbalta] 30 mg PO DAILY Albuterol Sulfate [Ventolin HFA] 1 - 2 puff INHALATION RT-Q6H PRN PRN Reason: Shortness Of Breath Lysine (Unknown Strength) 1 tab PO DAILY Glucosam/Chond/Hyalu/Cf Borate [Move Free Joint Health Tablet] 1 tab PO DAILY Acetaminophen [Tylenol Arthritis] 650 mg PO DAILY PRN PRN Reason: arthritis pain Nadolol [Corgard] 40 mg PO DAILY Diclofenac Sodium Gel [Voltaren Gel] 4 gm TOPICAL QID PRN PRN Reason: left knee pain Verapamil HCl [Verapamil ER] 120 mg PO AC-BRKFST Lisinopril [Zestril] 10 mg PO DAILY #30 tab Discontinued Promethazine/Dextromethorphan [Promethazine-Dm Syrup] 5 ml PO Q6H PRN PRN Reason: Cough Apixaban [Eliquis] 5 mg PO BID Discharge Medication List Estradiol [Estrace] 2 mg PO DAILY 05/14/14 [History] Pantoprazole Sodium [Protonix] 40 mg PO BID 05/14/14 [History] Albuterol Nebulized [Ventolin Nebulized] 2.5 mg INHALATION RT-BID 08/16/18 [History] Ipratropium Nebulized [Atrovent Nebulized 0.2 MG/ML] 0.5 mg INHALATION RT-BID 11/13/18 [History] DULoxetine HCL [Cymbalta] 30 mg PO DAILY 10/06/19 [History] Albuterol Sulfate [Ventolin HFA] 1 - 2 puff INHALATION RT-Q6H PRN 10/29/19 [History] Acetaminophen [Tylenol Arthritis] 650 mg PO DAILY PRN 05/02/20 [History] Diclofenac Sodium Gel [Voltaren Gel] 4 gm TOPICAL QID PRN 05/02/20 [History] Glucosam/Chond/Hyalu/Cf Borate [Move Free Joint Health Tablet] 1 tab PO DAILY 05/02/20 [History] Lysine (Unknown Strength) 1 tab PO DAILY 05/02/20 [History] Nadolol [Corgard] 40 mg PO DAILY 05/02/20 [History] Verapamil HCl [Verapamil ER] 120 mg PO AC-BRKFST 05/02/20 [History] Lisinopril [Zestril] 10 mg PO DAILY #30 tab 05/04/20 [Rx] Rivaroxaban [Xarelto] 15 mg PO DAILY #30 tab 05/08/20 [Rx] HYDROcodone/APAP 5-325MG [Ashby 5-325] 1 each PO Q4HR PRN #18 tab 05/10/20 [Rx] Rivaroxaban [Xarelto] 15 mg PO DAILY tab 05/10/20 [Rx] Follow up Appointment(s)/Referral(s): Lucie Tesfaye MD [Primary Care Provider] - 1-2 days Crhis Freeman MD [STAFF PHYSICIAN] - 2 Weeks [facility] Visiting Nurse, [NON-STAFF] - Bri Logan DO [STAFF PHYSICIAN] - 1 Week Ambulatory/Diagnostic Orders: Complete Blood Count w/diff [LAB.AMB] Time Frame: 3 Days, Location: None Selected Activity/Diet/Wound Care/Special Instructions: Diet: Cardiac Follow-up with PCP within 3 days of discharge. Follow-up with cardiology within 1 week of discharge. Follow-up with vascular surgery within 1 week of discharge. Repeat CBC in 3 days. Take all medications as advised. Come back to the ED or call 911 for worsening swelling and bleeding from the right groin, chest pain, shortness breath, palpitations, dizziness. Discharge Disposition: HOME SELF-CARE
--- NOTE | 2020-05-10 10:43 | P.PN ---
Subjective Progress Note Date: 05/10/20 Patient seen and examined. No changes overall. Still some pain in her right leg with swelling as previous. Decreased serosanguineous output in MIREILLE No acute distress, resting comfortably in bed Right groin with ecchymosis. Soft. MIREILLE in place with serosanguineous drainage Right femoral bleed with hematoma status post cardiac catheterization She has been restarted on her anticoagulation from a cardiac standpoint. She is doing fairly well overall but has some concerns about ambulation. She seems slightly anxious overall to not be in the hospital. From my standpoint there is no further acute care necessary, and can be discharged if she is able to maintain stability and has been cleared by physical therapy for home. We'll plan to maintain the MIREILLE at this point have her follow-up in the office of Dr. Byrne in the next week. She will need drain education. Overall disposition per medicine. Objective - Vital Signs Vital signs: Vital Signs Temp 98.5 F 05/10/20 07:00 Pulse 78 05/10/20 07:30 Resp 16 05/10/20 07:30 BP 154/64 05/10/20 07:00 Pulse Ox 96 05/10/20 07:00 Intake & Output 05/09/20 05/10/20 05/10/20 18:59 06:59 18:59 Intake Total 400 200 Output Total 135 70 Balance 265 -70 200 Weight 83.3 kg Intake: Oral 400 200 Output: Drainage 135 70 Right Groin 135 70 Other: Voiding Method Indwelling Catheter Bedside Commode # Voids 2 4 # Bowel Movements 1 - Labs CBC & Chem 7: 05/10/20 09:01 05/09/20 07:49 Labs: Abnormal Lab Results - Last 24 Hours (Table) 05/10/20 Range/Units 09:01 RBC 3.14 L (3.80-5.40) m/uL Hgb 9.4 L (11.4-16.0) gm/dL Hct 28.9 L (34.0-46.0) %
--- NOTE | 2020-05-10 12:52 | P.PN ---
Subjective Progress Note Date: 05/10/20 Principal diagnosis: Right femoral/inguinal hematoma, blood loss anemia, coronary artery disease status post cardiac catheterization The patient is seen today 05/10/2020 in follow-up on the regular medical floor. She is currently resting comfortably in bed. Awake and alert in no acute distress. Her right groin hematoma remains soft. MIREILLE drain is in place. Still approximately 100 ML's in the past 24 hours. Hemoglobin 9.4. White count 7.9. She is maintaining O2 saturations in the 90s on room air. She's afebrile. Hemodynamically stable. She is on Xarelto. Objective - Vital Signs Vital signs: Vital Signs Temp 98.5 F 05/10/20 07:00 Pulse 78 05/10/20 07:30 Resp 16 05/10/20 07:30 BP 154/64 05/10/20 07:00 Pulse Ox 96 05/10/20 07:00 Intake & Output 05/09/20 05/10/20 05/10/20 18:59 06:59 18:59 Intake Total 400 200 Output Total 135 70 Balance 265 -70 200 Weight 83.3 kg Intake: Oral 400 200 Output: Drainage 135 70 Right Groin 135 70 Other: Voiding Method Indwelling Catheter Bedside Commode # Voids 2 4 # Bowel Movements 1 - Exam GENERAL EXAM: Alert, very pleasant, 74-year-old female patient, on room air, comfortable in no apparent distress. HEAD: Normocephalic/atraumatic. EYES: Normal reaction of pupils, equal size. Conjunctiva pink, sclera white. NOSE: Clear with pink turbinates. THROAT: No erythema or exudates. NECK: No masses, no JVD, no thyroid enlargement, no adenopathy. CHEST: No chest wall deformity. Symmetrical expansion. LUNGS: Equal air entry with no crackles, wheeze, rhonchi or dullness. CVS: Regular rate and rhythm, normal S1 and S2, no gallops, no murmurs, no rubs ABDOMEN: Soft, nontender. No hepatosplenomegaly, normal bowel sounds, no guarding or rigidity. EXTREMITIES: No clubbing, no edema, no cyanosis, 2+ pulses and upper and lower extremities. Right groin hematoma with some mild ecchymosis involving the pubic area, and some feeding yellowing ecchymosis on the right thigh which is starting to extend beyond the outlined area that was outlined initially, the area is soft, palpable pulses distally in proximally to the right groin hematoma, MIREILLE drain is in the right thigh, with watery serosanguineous drainage, there has been a total of 100 mL of output in last 24 hours MUSCULOSKELETAL: Muscle strength and tone normal. SPINE: No scoliosis or deformity SKIN: No rashes CENTRAL NERVOUS SYSTEM: No focal deficits, tone is normal in all 4 extremities. PSYCHIATRIC: Alert and oriented -3. Appropriate affect. Intact judgment and insight. - Labs CBC & Chem 7: 05/10/20 09:01 05/09/20 07:49 Labs: Abnormal Lab Results - Last 24 Hours (Table) 05/10/20 Range/Units 09:01 RBC 3.14 L (3.80-5.40) m/uL Hgb 9.4 L (11.4-16.0) gm/dL Hct 28.9 L (34.0-46.0) % Assessment and Plan Assessment: 1 right femoral/inguinal hematoma formation secondary to a right femoral artery bleed post cardiac catheterization. The patient underwent emergent surgical vascular repair of the right femoral artery bleed. MIREILLE drain is in place. Hemoglobin stable. Hemodynamically stable. The patient has adequate pulses to the lower extremity has been restored. On today's follow-up, the patient is postop day # 6. The patient has a soft hematoma and output from the MIREILLE drain has been noted which is in order of 190 mL and the patient's hematoma softer and the patient on expanding as much pain as she was earlier. 2 Blood loss anemia, hemoglobin is stable, and the patient has been transudative total of 4 units of packed RBCs since admission., And hemoglobin is stable for now at 9.4 3 coronary artery disease post cardiac catheterization with a 40/50% lesion in the LAD, receiving medical treatment 4 paroxysmal atrial fibrillation currently off anticoagulants and the current rhythm is sinus, No anticoagulants for now and this is to be cleared by vascular surgery 5 right lower extremity pain, currently under well control 6 hypertension 7 hyperlipidemia 8 hypothyroidism 9 moderate persistent bronchial asthma currently inactive in stable Plan: The patient was seen and evaluated by Dr. Bajwa She remains stable Hemoglobin stable MIREILLE drain remains in place She is anxious to go home To follow with vascular surgery I, the cosigning physician, performed a history & physical examination of the patient. Lungs sounds are clear. Maintaining good O2 saturations in the 90s on room air. I discussed the assessment and plan of care with my nurse practitioner, Norma Briceno. I attest to the above note as dictated by her.
[2020-05-10] MEDS: HYDROmorphone 1 MG/ML 1 ML SYRINGE IVP PRN (13:46)
--- NOTE | 2020-05-10 14:25 | P.PN ---
Subjective Progress Note Date: 05/10/20 Principal diagnosis: Evacuation/repair of RIGHT femoral artery PROGRESS NOTE 05/10/2020 This is a pleasant 74-year-old past medical history significant for coronary artery disease, paroxysmal atrial fibrillation and hypertension. She is currently being treated for right groin hematoma status post cardiac catheterization on Tuesday. She underwent emergent evacuation and repair of the femoral artery per vascular surgery. PHYSICAL EXAMINATION: HEENT: Head is atraumatic, normocephalic. Pupils are equal, round. Sclerae anicteric. Conjunctivae are clear. Mucous membranes of the mouth are moist. Neck is supple. There is no jugular venous distention. No carotid bruit is heard. No thyromegaly. LUNGS: Clear to auscultation no wheezes, rales or rhonchi. No chest wall tenderness is noted on palpation or with deep breathing. HEART: Regular rate and rhythm without murmurs, rubs or gallops. S1 and S2 heard. ABDOMEN: Abdominal exam revealed normal bowel sounds. The abdomen was soft, non- tender, and without masses, organomegaly, or appreciable enlargement of the abdominal aorta. EXTREMITIES: RIGHT femoral artery is red, bruised but edges are approximated with surgical repair. MIREILLE drain intact and functioning well. LEFT femoral artery WNL. No lower extremity edema, good pulses bilaterally on DP. VASCULAR: Radial and dorsalis pedis pulses palpated, no evidence of clubbing. NEUROLOGIC: Patient is awake, alert and oriented x3. There were no obvious focal neurologic abnormalities. FINAL IMPRESSION: 1. CAD, mild 2. Repair of the femoral artery per vascular surgery. 3. PAF, anticoagulated 4. Hypertension, controlled 5. Dyslipidemia PLAN: Okay for discharge from cardiology standpoint. Patient to follow-up with vascular surgery on discharge. Patient to follow-up with Dr. Madison in office this week. Continue same all other medication/medical regime. Continue on anticoagulation with Xarelto 50 mg daily for PAF. Objective - Vital Signs Vital signs: Vital Signs Temp 98.5 F 05/10/20 07:00 Pulse 78 05/10/20 07:30 Resp 16 05/10/20 07:30 BP 154/64 05/10/20 07:00 Pulse Ox 96 05/10/20 07:00 Intake & Output 05/09/20 05/10/20 05/10/20 18:59 06:59 18:59 Intake Total 400 400 Output Total 135 70 Balance 265 -70 400 Weight 83.3 kg Intake: Oral 400 400 Output: Drainage 135 70 Right Groin 135 70 Other: Voiding Method Indwelling Catheter Bedside Commode # Voids 2 4 3 # Bowel Movements 1 - Labs CBC & Chem 7: 05/10/20 09:01 05/09/20 07:49 Labs: Abnormal Lab Results - Last 24 Hours (Table) 05/10/20 Range/Units 09:01 RBC 3.14 L (3.80-5.40) m/uL Hgb 9.4 L (11.4-16.0) gm/dL Hct 28.9 L (34.0-46.0) %
[2020-05-11 01:47] VITALS: RESP 17
[2020-05-11] MEDS: HYDROcodone/APAP 5-325MG 1 EACH TAB PO PRN ×2 (08:04→13:18)
[2020-05-11] MEDS: RIVAROXABAN 15 MG TAB PO SCH (08:04)
[2020-05-11] MEDS: lisinopriL 10 MG TAB PO SCH (08:04)
[2020-05-11] MEDS: DULoxetine HCL 30 MG CAPSULE.DR PO SCH (08:04)
[2020-05-11] MEDS: PANTOPRAZOLE 40 MG TABLET PO SCH (08:04)
[2020-05-11 08:14] VITALS: BP 147/67; TEMP 98.7
[2020-05-11] MEDS: IPRATROPIUM-ALBUTEROL 3 ML NEB INHALATION SCH (09:17)
[2020-05-11 09:31] VITALS: PULSE 83
[2020-05-11 10:49] LABS: HCT 30.2 % (34.0-46.0); HGB 9.4 gm/dL (11.4-16.0); Hypochromasia Moderate; MCHC 30.9 g/dL (31.0-37.0); MCV 93.7 fL (80.0-100.0); Mean Platelet Volume 7.7; Platelet Count 259 k/uL (150-450); RBC 3.22 m/uL (3.80-5.40); RDW 14.7 % (11.5-15.5); WBC 7.3 k/uL (3.8-10.6)
--- NOTE | 2020-05-11 10:51 | P.PN ---
Subjective Progress Note Date: 05/11/20 Principal diagnosis: Right femoral hematoma Patient was seen and examined. No acute events overnight. Patient reports slight improvement in her right groin swelling. Right groin continues to drain bloody serosanguineous fluid but greatly improved. Patient reports well-contro lled pain in her right groin. Patient able to ambulate yesterday and today with help of rolling walker. She denies any chest pain, shortness breath or palpitations. No nausea or vomiting. No fever or chills. Objective - Vital Signs Vital signs: Vital Signs Temp 98.7 F 05/11/20 07:00 Pulse 83 05/11/20 09:31 Resp 17 05/11/20 07:00 BP 147/67 05/11/20 07:00 Pulse Ox 96 05/11/20 09:18 Intake & Output 05/10/20 05/11/20 05/11/20 18:59 06:59 18:59 Intake Total 400 200 Output Total 30 Balance 400 -30 200 Intake: Oral 400 200 Output: Drainage 30 Right Groin 30 Other: Voiding Method Toilet # Voids 3 1 - Exam General: [non toxic], [no distress], [appears at stated age] Derm: [warm], [dry] Head: [atraumatic], [normocephalic], [symmetric] Eyes: [EOMI], [no lid lag], [anicteric sclera] Mouth: [no lip lesion], [mucus membranes moist] Cardiovascular: [S1S2 regular], [no murmur], [positive DP pulse bilateral], Lungs: [CTA bilateral], [no rhonchi, no rales] , [no accessory muscle use] Abdominal: [soft], [ nontender to palpation], [no guarding], [no appreciable organomegaly] Ext: [no gross muscle atrophy], [no edema], [no contractures], right groin swollen and erythematous with drain in place, improved from yesterday Neuro: [no focal neuro deficits] Psych: [Alert], [oriented], [appropriate affect] - Labs CBC & Chem 7: 05/10/20 09:01 05/09/20 07:49 Assessment and Plan Assessment: Right inguinal hematoma secondary to right femoral artery bleeding, status post repair postoperative day #4 -Vascular surgery following -Continue Xarelto at lower dose 15 mg by mouth daily. -Hemoglobin improved to 8.5 with 2 units of PRBCs, down trended to 7.3, 7.3-7.6 with 1 PRBC. Hemoglobin improved from 7.6-9.4, 9.1, 8.7, 9.2 with 1 PRBC. -Daily CBC A. fib -Continue Eliquis tonight and start Xarelto tomorrow morning -Continue nadolol for rate control -Cardiac monitoring Chronic conditions: Hypothyroidism, hyperlipidemia, hypertension, GERD, asthma, coronary artery disease -Continue home meds DVT prophylaxis -IPCDs Resolved: Hypokalemia [Patient admitted for right groin no hematoma secondary to cardiac cath. Hemoglobin stabilized. Continue anticoagulation. Plans on DC home to FU with Vascular surgery and Cardiology within 1 week. Repeat CBC within 3 days. This complex DC took 35 minutes to complete.]
--- NOTE | 2020-05-11 11:06 | P.PN ---
Subjective Progress Note Date: 05/11/20 Principal diagnosis: Evacuation/repair of RIGHT femoral artery PROGRESS NOTE 05/11/2020 patient seen this a.m. in no acute distress sitting up in chair. Patient has no current complaints of chest pain, chest pressure, shortness of breath or palpitations. Patient is currently awaiting discharge. Patient vital signs stable. Heart remains regular rate and rhythm. Patient on room air. Right groin remains swollen, red with MIREILLE drain attached. Patient tolerating groin discomfort as well as community expected. Patient anticipating discharge this day. This is a pleasant 74-year-old past medical history significant for coronary artery disease, paroxysmal atrial fibrillation and hypertension. She is currently being treated for right groin hematoma status post cardiac cath eterization on Tuesday. She underwent emergent evacuation and repair of the femoral artery per vascular surgery. PHYSICAL EXAMINATION: HEENT: Head is atraumatic, normocephalic. Pupils are equal, round. Sclerae anicteric. Conjunctivae are clear. Mucous membranes of the mouth are moist. Neck is supple. There is no jugular venous distention. No carotid bruit is heard. No thyromegaly. LUNGS: Clear to auscultation no wheezes, rales or rhonchi. No chest wall tenderness is noted on palpation or with deep breathing. HEART: Regular rate and rhythm without murmurs, rubs or gallops. S1 and S2 heard. ABDOMEN: Abdominal exam revealed normal bowel sounds. The abdomen was soft, non- tender, and without masses, organomegaly, or appreciable enlargement of the abdominal aorta. EXTREMITIES: Examination of the extremities revealed easily palpable radial, femoral and pedal pulses. There was no cyanosis, clubbing or edema. No calf tenderness noted. VASCULAR: RIGHT femoral artery is red, bruised but edges are approximated with surgical repair. MIREILLE drain intact and functioning well. LEFT femoral artery WNL. Radial and dorsalis pedis pulses palpated, no evidence of clubbing. NEUROLOGIC: Patient is awake, alert and oriented x3. There were no obvious focal neurologic abnormalities. FINAL IMPRESSION: 1. CAD, mild 2. Repair of Femoral artery per vascular sx. 3. PAF, currently SR and anticoagulated 4. Hypertension, well controlled 5. Dyslipidemia PLAN: Okay for discharge from cardiology standpoint. Patient to follow-up with vascular surgery on discharge. Patient to follow-up with Dr. Freeman (Per Dr. DANIELLE Philippe) in office this week. Continue same all other medication/medical regime. Continue on anticoagulation with Xarelto 15 mg daily for PAF. Objective - Vital Signs Vital signs: Vital Signs Temp 98.7 F 05/11/20 07:00 Pulse 83 05/11/20 09:31 Resp 17 05/11/20 07:00 BP 147/67 05/11/20 07:00 Pulse Ox 96 05/11/20 09:18 Intake & Output 05/10/20 05/11/20 05/11/20 18:59 06:59 18:59 Intake Total 400 200 Output Total 30 Balance 400 -30 200 Intake: Oral 400 200 Output: Drainage 30 Right Groin 30 Other: Voiding Method Toilet # Voids 3 1 - Labs CBC & Chem 7: 05/11/20 09:25 05/09/20 07:49 Labs: Abnormal Lab Results - Last 24 Hours (Table) 05/11/20 Range/Units 09:25 RBC 3.22 L (3.80-5.40) m/uL Hgb 9.4 L (11.4-16.0) gm/dL Hct 30.2 L (34.0-46.0) % MCHC 30.9 L (31.0-37.0) g/dL
== END 2020-05-11 13:44 | disposition home or self-care (01) | DRG 908 ==
LOC: EC 16:11 → 2SICU 17:58 → 4SSUR 05-08 21:33
PROVIDERS: ADMIT Internal Medicine; ATTEND Internal Medicine
PROC: 30233N1 Transfusion of Nonautologous Red Blood Cells into Peripheral Vein, Percutaneous Approach (ICD-10-PCS; 2020-05-04)
PROC: 04QK0ZZ Repair Right Femoral Artery, Open Approach (ICD-10-PCS; principal; 2020-05-04 18:20)
PROC: 04CK3ZZ Extirpation of Matter from Right Femoral Artery, Percutaneous Approach (ICD-10-PCS; principal; 2020-05-04 18:20)
DX: I97.610 Postprocedural hemorrhage of a circulatory system organ or structure following a cardiac catheterization (principal); D62 Acute posthemorrhagic anemia; D68.9 Coagulation defect, unspecified; T81.19XA Other postprocedural shock, initial encounter; E78.5 Hyperlipidemia, unspecified; E03.9 Hypothyroidism, unspecified; I10 Essential (primary) hypertension; M19.90 Unspecified osteoarthritis, unspecified site; I48.0 Paroxysmal atrial fibrillation; K21.9 Gastro-esophageal reflux disease without esophagitis; M06.9 Rheumatoid arthritis, unspecified; Z96.651 Presence of right artificial knee joint; Z96.641 Presence of right artificial hip joint; I25.10 Atherosclerotic heart disease of native coronary artery without angina pectoris; J45.40 Moderate persistent asthma, uncomplicated; E87.6 Hypokalemia; M79.7 Fibromyalgia; G43.909 Migraine, unspecified, not intractable, without status migrainosus; Z87.442 Personal history of urinary calculi; Z90.49 Acquired absence of other specified parts of digestive tract; Z98.890 Other specified postprocedural states; Z90.710 Acquired absence of both cervix and uterus; I25.2 Old myocardial infarction; Z82.49 Family history of ischemic heart disease and other diseases of the circulatory system; Z79.899 Other long term (current) drug therapy; Z79.890 Hormone replacement therapy; Z79.01 Long term (current) use of anticoagulants; Z80.9 Family history of malignant neoplasm, unspecified; Z88.6 Allergy status to analgesic agent; Z88.1 Allergy status to other antibiotic agents; Z88.0 Allergy status to penicillin; Z88.2 Allergy status to sulfonamides; Z88.8 Allergy status to other drugs, medicaments and biological substances; Z87.11 Personal history of peptic ulcer disease
CPT/HCPCS: 51702; 80048; 80053; 83605; 83735; 84100; 84132; 84484; 85025; 85027; 85610; 85730; 86850; 86900; 86901; 86920; 93005; 94640; 94760; 96361; 96374; 96375; 96376; 99291

== ENCOUNTER → 2020-05-14 | Outpatient (CLI) | payer MEDICARE, BC ==
[2020-05-14 13:22] LABS: African American GFR (CKD) >90 (>60 ml/min/1.73 sqM); Blood Urea Nitrogen 13 mg/dL (7-17); Non-African American GFR(CKD) 79 (>60 ml/min/1.73 sqM)
--- NOTE | 2020-05-14 14:23 | CT ---
EXAMINATION TYPE: CT angio abd aorta w/Runoff DATE OF EXAM: 05/14/2020 HISTORY: Right groin hematoma CT DLP: 803.3mGycm Automated Exposure Control for Dose Reduction was Utilized. CONTRAST: CT scan of the abdomen and pelvis is performed , patient injected with 100 mL of Isovue 300. COMPARISON: 10/06/2019 FINDINGS: LUNG BASES: Lung bases are clear. Heart size is prominent. Small hiatal hernia noted. LIVER/GB: Findings suggest previous cholecystectomy. PANCREAS: No significant abnormality is seen. SPLEEN: No significant abnormality is seen. ADRENALS: No significant abnormality is seen. KIDNEYS: There are simple appearing bilateral renal cysts. No hydronephrosis. There is a lower pole n onobstructing right renal calculus measuring 6 mm.. BOWEL: No significant abnormality is seen. UTERUS/ADNEXA: No gross abnormality seen. LYMPH NODES: No greater than 1cm abdominal or pelvic lymph nodes are appreciated. OSSEOUS STRUCTURES: No significant abnormality is seen. OTHER: Aorta of normal caliber with no significant atherosclerotic changes. There is a soft tissue he matoma overlying the right groin region. Mild atherosclerotic change of the aorta. Periarticular of a ttenuation in the right groin could represent a hematoma. Artifact from the right hip prostheses limi ts assessment. No retroperitoneal hematoma identified. The soft tissue hematoma contains air likely r elated to recent intervention but should be correlated clinically and extends into the upper thigh ov er a length of 20 cm in craniocaudal dimension with a maximal transverse dimension of 8 cm. Visualized iliac arteries are patent. A right common femoral artery and popliteal artery are limited in assessment due to artifact from the metallic postsurgical changes. Grossly the deep femoral arteri es are patent and the visualized superficial femoral arteries are patent. Distally the distal poplite al arteries are patent bilaterally and proximal tibial peroneal trunk is patent. Peroneal artery and posterior tibial artery somewhat diminutive but are seen to the level of the distal calf where there is reduction in enhancement of all trifurcation vessels likely related to the phase of imaging. There is a 2.4 cm left adnexal mass. Small fat-containing periumbilical hernia.. IMPRESSION: 1. Large soft tissue hematoma overlying the right groin extending in the upper thigh as measured abov e extending a craniocaudal dimension of 20 cm in transverse dimension of 8 cm.. Arterial of abnormal attenuation in the region of the right common femoral artery could represent hematoma. 2. Nonobstructing right renal calculus. 3. Aorta, iliac vasculature and visualized portions of the femoral and popliteal arteries appear to b e patent with no significant stenosis. Imaging is included to the level of the distal calf which demo nstrates the visualized trifurcation vessels to be diminutive but patent to the level of the distal c residential. Reduced enhancement beyond this level bilaterally likely related to the phase of imaging. Correl ate with dedicated arteriogram as clinically warranted. 4. There is a cystic left adnexal mass measuring 2.4 cm. There is evidence of previous hysterectomy. Frontal diagnosis would include an ovarian cystic mass or, paraovarian mass or fallopian tube remnant if the ovaries been removed. No omental thickening. Correlate with ultrasound and CTA 125 as clinica lly warranted.
== END | disposition home or self-care (01) ==
LOC: RADCTMAIN 12:12
PROVIDERS: ATTEND Surgery
DX: M79.81 Nontraumatic hematoma of soft tissue (principal); N20.0 Calculus of kidney; Z90.710 Acquired absence of both cervix and uterus
CPT/HCPCS: 82565; 84520; 75635; 36415; Q9967

== ENCOUNTER → 2020-05-21 | Outpatient (CLI) | payer MEDICARE, BC ==
[2020-05-21 12:36] LABS: Potassium 4.9 mmol/L (3.5-5.1)
[2020-05-21 12:38] LABS: Basophils # (A) 0.1 k/uL (0-0.2); Basophils % (A) 1 %; Eosinophils # (A) 0.3 k/uL (0-0.7); Eosinophils % (A) 4 %; HCT 33.6 % (34.0-46.0); HGB 10.8 gm/dL (11.4-16.0); Hypochromasia Moderate; Lymphocytes # (A) 1.2 k/uL (1.0-4.8); Lymphocytes % (A) 17 %; MCH 29.8 pg (25.0-35.0); MCHC 32.1 g/dL (31.0-37.0); MCV 92.7 fL (80.0-100.0); Mean Platelet Volume 7.1; Monocytes # (A) 0.5 k/uL (0-1.0); Monocytes % (A) 7 %; Neutrophils # (A) 5.3 k/uL (1.3-7.7); Neutrophils % (A) 70 %; RBC 3.62 m/uL (3.80-5.40); RDW 14.4 % (11.5-15.5); WBC 7.5 k/uL (3.8-10.6)
[2020-05-21 12:46] LABS: Platelet Count 845 k/uL (150-450)
== END | disposition home or self-care (01) ==
LOC: LABPAT 11:10
PROVIDERS: ATTEND Surgery
DX: Z01.818 Encounter for other preprocedural examination (principal); S70.11XA Contusion of right thigh, initial encounter
CPT/HCPCS: 36415; 80051; 82565; 84520; 85025

== ENCOUNTER 2020-05-22 11:11 | Day surgery (SDC) | payer MEDICARE, BC ==
[2020-05-21 15:30] VITALS: BMI 24.7
[~2020-05-22 11:11] MED LIST changes: -HEPARIN SODIUM,PORCINE 5,000 UNIT/ML 1 ML VIAL SQ ONE; +HYDROmorphone 0.5 MG/0.5 ML SYRINGE IVP PRN; -LACTATED RINGERS 1,000 ML IV SCH; -LEVOFLOXACIN 500MG-D5W PMX 500 MG in DEXTROSE/WATER 1 100ML.BAG IVPB ONE; +LIDOCAINE 1% (10MG/ML) FOR IV START INTRADERMA PRN; -LIDOCAINE 1% 20 ML VIAL (10MG/ML) FOR IV START INTRADERMA PRN; +ONDANSETRON 4 MG/2 ML VIAL IVP ONE
[2020-05-22] MEDS: LACTATED RINGERS 1,000 ML IV SCH (11:49)
[2020-05-22] MEDS ORDERED: ONDANSETRON 4 MG/2 ML VIAL ONE (11:55)
--- NOTE | 2020-05-22 12:15 | P.HPIHPCON ---
History of Present Illness H&P Date: 05/22/20 The patient is a 74 old female recently seen in my office for follow-up. She was initially admitted to the hospital after cardiac catheterization with evidence of bleeding right femoral artery. She was emergently taken to the operative suite for control of hemorrhage and suture repair of the artery. She ended up being discharged after a few days and was doing well. She did have significant swelling and edema still in the right thigh due to the size of the hematoma. She did also undergo multiple transfusions due to acute blood loss anemia at that time. She was seen in my office last week and was still noted to have a fairly significant area of right thigh swelling along with associated pain. A computed tomography scan was done showing evidence of further bleeding, but there was a significant fluid collection with some air. Given the findings along with the warmth to the area, she was given a prescription for clindamycin and follow for full week. At the time of my visit yesterday she had continued pain and swelling in the area and now has areas of skin breakdown due to the kezia unt of swelling. Given all this it was decided we should take the operative suite for hematoma evacuation. If any suspicious findings for abscess the fluids will be cultured. Risks and benefits were discussed with she and her and she seemingly understood and was willing to proceed as such Consent for Procedure: I have explained the operation/procedure to the patient, including the risks, benefits, side effects, alternative therapies (including not receiving the proposed treatment or service), the likelihood of the patient achieving his/her goals, and potential recuperation problems for the procedure/sedation/analgesia, as well as any blood products, if indicated. I also explained to the patient the risks, benefits and side effects of the alternatives, as well as the risks related to not receiving the proposed procedure, care, treatment, or services. Past Medical History Past Medical History: Atrial Fibrillation, Asthma, Coronary Artery Disease (CAD), Cancer, Fibromyalgia, GERD/Reflux, Hypertension, Myocardial Infarction ([place]), Osteoarthritis (OA), Rheumatoid Arthritis (RA), Thyroid Disorder Additional Past Medical History / Comment(s): back pain, migraines ), occasional slight difficulty with swallowing, gastic ulcer, H-pylori, diverticular disease, , melanoma removed from face, kidney stones, recently d/c after repair of hematoma/repair of femoral artery after recent heart cath, still w/hematoma Last Myocardial Infarction Date:: 2012 History of Any Multi-Drug Resistant Organisms: None Reported Past Surgical History: Back Surgery, Cholecystectomy, Heart Catheterization, Hysterectomy, Joint Replacement, Orthopedic Surgery Additional Past Surgical History / Comment(s): RODS & CAGES IN BACK, RT HIP REPLACEMENT, PARTIAL THYROIDECTOMY, RT KNEE REPLACEMENT, NECK SURGER- LIDIA AND CAGES. Heart cath w/ no intervention Past Anesthesia/Blood Transfusion Reactions: Previous Problems w/ Anesthesia, Postoperative Nausea & Vomiting (PONV) Additional Past Anesthesia/Blood Transfusion Reaction / Comment(s): hard to wake up Smoking Status: Never smoker - Past Family History Sister(s) Family Medical History: Cancer Brother(s) Family Medical History: Cancer Mother Family Medical History: Myocardial Infarction ([place]) Additional Family Medical History / Comment(s): Mother of a [place] at the age of 76yrs. Father History Unknown: Yes Medications and Allergies Home Medications Medication Instructions Recorded Confirmed Type Estradiol [Estrace] 2 mg PO DAILY 05/14/14 05/21/20 History Pantoprazole Sodium [Protonix] 40 mg PO BID 05/14/14 05/21/20 History Albuterol Nebulized [Ventolin 2.5 mg INHALATION QID PRN 08/16/18 05/21/20 History Nebulized] Ipratropium Nebulized [Atrovent 0.5 mg INHALATION QID PRN 11/13/18 05/21/20 History Nebulized 0.2 MG/ML] DULoxetine HCL [Cymbalta] 30 mg PO DAILY 10/06/19 05/21/20 History Albuterol Sulfate [Ventolin HFA] 1 - 2 puff INHALATION RT-Q6H PRN 10/29/19 05/21/20 History Acetaminophen [Tylenol Arthritis] 650 mg PO DAILY PRN 05/02/20 05/21/20 History Diclofenac Sodium Gel [Voltaren 4 gm TOPICAL QID PRN 05/02/20 05/21/20 History Gel] Glucosam/Chond/Hyalu/Cf Borate 1 tab PO DAILY 05/02/20 05/21/20 History [Move Free Joint Health Tablet] Lysine (Unknown Strength) 1 tab PO DAILY 05/02/20 05/21/20 History Nadolol [Corgard] 40 mg PO DAILY 05/02/20 05/21/20 History HYDROcodone/APAP 5-325MG [Edmond 1 each PO Q4HR PRN #18 tab 05/10/20 05/22/20 Rx 5-325] Ferrous Sulfate [Iron] 325 mg PO DAILY #30 tablet 05/11/20 05/21/20 Rx Rivaroxaban [Xarelto] 15 mg PO DAILY #30 tab 05/11/20 05/21/20 Rx clindamycin HCL [Cleocin] 300 mg PO Q8H 05/21/20 05/21/20 History Allergies Allergy/AdvReac Type Severity Reaction Status Date / Time cephalexin monohydrate Allergy HIVES Verified 05/22/20 11:41 [From Keflex] diphenhydramine HCl Allergy SWELLING Verified 05/22/20 11:41 [From Benadryl] OF TONGUE, SOB enoxaparin [From Lovenox] Allergy Rash/Hives Verified 05/22/20 11:41 Penicillins Allergy SWELLING, Verified 05/22/20 11:41 HIVES aspirin AdvReac EXCESS Verified 05/22/20 11:41 BLEEDING morphine AdvReac Vomiting Verified 05/22/20 11:41 sulfamethoxazole AdvReac Nausea & Verified 05/22/20 11:41 [From Bactrim] Vomiting trimethoprim [From Bactrim] AdvReac Nausea & Verified 05/22/20 11:41 Vomiting Surgical - Exam Vital Signs Temp Pulse Resp BP Pulse Ox 97.3 F L 59 L 16 149/80 100 05/22/20 12:00 05/22/20 12:00 05/22/20 12:00 05/22/20 12:00 05/22/20 12:00 Gen. a pleasant cooperative female in no acute distress. HEENT is normocephalic and atraumatic, excellent motion intact. Heart regular rhythm. Lungs are clear bilaterally. Abdomen is Nontender nondistended. There is a moderate-sized right thigh swelling, with surrounding old ecchymosis. There is multiple small areas of eschar overlying the skin as well as some dehiscence of the inferior pole of the previous incision. She maintains palpable pedal pulses on the right. Motor sensory intact. Assessment and Plan Assessment: Right thigh mass, likely hematoma Rule out abscess Status post right cardiac catheterization with postprocedural bleeding Acute blood loss anemia status post multiple transfusions, present on this admission, no evidence of current active bleeding Plan: We'll plan to the operative suite today for debridement of skin as well as evacuation of hematoma. His it was discussed with her that we may need a wound VAC if the defect is significant and sizable enough. Further dispositions pending surgical findings. The patient and her seemingly understand and are willing to proceed
[2020-05-22] MEDS ORDERED: SUCCINYLCHOLINE CHLORIDE 100 MG/5 ML SYR IV ONE (12:30)
[2020-05-22] MEDS ORDERED: PROPOFOL 10 MG/ML 20 ML VIAL IV ONE (12:30)
[2020-05-22] MEDS ORDERED: MIDAZOLAM 2 MG/2 ML VIAL ONE (12:30)
[2020-05-22] MEDS ORDERED: LIDOCAINE 1% INJ 10MG/ML (20 ML MDV) ONE (12:30)
[2020-05-22] MEDS ORDERED: CLINDAMYCIN 150 MG/ML 4 ML VIAL ONE (12:30)
[2020-05-22] MEDS ORDERED: fentaNYL (PF) 50 MCG/ML 2 ML AMP ONE (12:30)
[2020-05-22] MEDS ORDERED: ONDANSETRON 4 MG/2 ML VIAL IVP PRN (13:19)
[2020-05-22] MEDS ORDERED: MORPHINE SULFATE 2 MG/ML SYRINGE IVP PRN (13:19)
--- NOTE | 2020-05-22 13:19 | P.OP ---
Date of Procedure: 05/22/20 Description of Procedure: Preoperative diagnosis: [Right thigh hematoma, right thigh skin necrosis] Postoperative diagnosis: Same Procedure: [#1 Sharp excisional debridement of right thigh wound with hematoma evacuation, wound measurements finalizing at 11 x 1.5 x 3 cm. Tunneling 4 cm at 3 o'clock position, tunneling 4 cm at 6 clock position, tunneling 8 cm at 9 o'clock position down to muscle #2 placement of wound VAC] Surgeon: Bri Logan D.O. Anesthesia: Gen. endotracheal EBL: [Less than 10 mL] IV fluids: [See anesthesia records] Urine output: [Not measured] Drains: [Wound VAC] Complications: [None immediately apparent] Condition: [Stable to PACU] Operative indication and findings: [The patient is a 74-year-old female who previously underwent a cardiac catheterization and subsequent bleed that required emergency surgery. She was discharged and in follow-up continued to have pain in her right groin and thigh as well as subsequent skin breakdown due to the overlying tissue and pressure. Imaging was performed revealing no evidence of bleeding. Patient is brought to the operating room for debridement.] Procedure in detail: [Patient is a operating and placed in supine position. The right groin and thigh were prepped and draped in usual sterile fashion. A preprocedure timeout was performed, all parties were in agreement. At the area of skin breakdown, an incision was made surrounding this area. All the subcutaneous tissues were cut through sharply, the fatty tissue was sharply debrided. There was a significant amount of dark old blood and serous sanguinous drainage. There was no evidence of obvious active bleeding. It was thoroughly irrigated. There was Sharp debridement of the muscle and fatty tissues with a scalpel to healthy appearing granulation tissues. The area was copiously irrigated with hydrogen peroxide and normal saline. A wound VAC was placed. The measurements were as above. The patient was allowed awaken from anesthesia and transferred to PACU in stable condition having to the procedure well.]
[2020-05-22] MEDS ORDERED: ALBUTEROL HFA INHALER INHALATION PRN (13:24)
--- NOTE | 2020-05-22 16:11 | P.CONS ---
History of Present Illness - Reason for Consult Consult date: 05/22/20 Medical management - History of Present Illness This is a 74-year-old white female who was admitted to the hospital because of right thigh hematoma and right thigh skin necrosis. She underwent evacuation of the hematoma with wound VAC placement. Surgery was done without competitions today 05/22/2020. Apparently patient recently had a cardiac catheterization with bleeding from the right femoral artery, she was taken emergently to the operating room at that time because of hemorrhage and had suture and repair of the artery. She also required blood transfusion. At that time she was discharged on clindamycin for 1 week. She continued to have pain thus she was readmitted to the hospital and underwent evacuation of the hematoma. At the time of examination patient denies chest pain, no fever no chills no abdominal pain. Review of Systems 10 systems reviewed, pertinent positive and negative findings as in HPI. No chest pain, no abdominal pain. Past Medical History Past Medical History: Atrial Fibrillation, Asthma, Coronary Artery Disease (CAD), Cancer, Fibromyalgia, GERD/Reflux, Hypertension, Myocardial Infarction (NV), Osteoarthritis (OA), Rheumatoid Arthritis (RA), Thyroid Disorder Additional Past Medical History / Comment(s): back pain, migraines ), occasional slight difficulty with swallowing, gastic ulcer, H-pylori, diverticular disease, , melanoma removed from face, kidney stones, recently d/c after repair of hematoma/repair of femoral artery after recent heart cath, still w/hematoma Last Myocardial Infarction Date:: 2012 History of Any Multi-Drug Resistant Organisms: None Reported Past Surgical History: Back Surgery, Cholecystectomy, Heart Catheterization, Hysterectomy, Joint Replacement, Orthopedic Surgery Additional Past Surgical History / Comment(s): RODS & CAGES IN BACK, RT HIP REPLACEMENT, PARTIAL THYROIDECTOMY, RT KNEE REPLACEMENT, NECK SURGER- LIDIA AND CAGES. Heart cath w/ no intervention Past Anesthesia/Blood Transfusion Reactions: Previous Problems w/ Anesthesia, Postoperative Nausea & Vomiting (PONV) Additional Past Anesthesia/Blood Transfusion Reaction / Comm: hard to wake up Smoking Status: Never smoker - Past Family History Sister(s) Family Medical History: Cancer Brother(s) Family Medical History: Cancer Mother Family Medical History: Myocardial Infarction (NV) Additional Family Medical History / Comment(s): Mother of a NV at the age of 76yrs. Father History Unknown: Yes Medications and Allergies Home Medications Medication Instructions Recorded Confirmed Type Estradiol [Estrace] 2 mg PO DAILY 05/14/14 05/21/20 History Pantoprazole Sodium [Protonix] 40 mg PO BID 05/14/14 05/21/20 History Albuterol Nebulized [Ventolin 2.5 mg INHALATION QID PRN 08/16/18 05/21/20 History Nebulized] Ipratropium Nebulized [Atrovent 0.5 mg INHALATION QID PRN 11/13/18 05/21/20 History Nebulized 0.2 MG/ML] DULoxetine HCL [Cymbalta] 30 mg PO DAILY 10/06/19 05/21/20 History Albuterol Sulfate [Ventolin HFA] 1 - 2 puff INHALATION RT-Q6H PRN 10/29/19 05/21/20 History Acetaminophen [Tylenol Arthritis] 650 mg PO DAILY PRN 05/02/20 05/21/20 History Diclofenac Sodium Gel [Voltaren 4 gm TOPICAL QID PRN 05/02/20 05/21/20 History Gel] Glucosam/Chond/Hyalu/Cf Borate 1 tab PO DAILY 05/02/20 05/21/20 History [Move Free Joint Health Tablet] Lysine (Unknown Strength) 1 tab PO DAILY 05/02/20 05/21/20 History Nadolol [Corgard] 40 mg PO DAILY 05/02/20 05/21/20 History HYDROcodone/APAP 5-325MG [[place] 1 each PO Q4HR PRN #18 tab 05/10/20 05/22/20 Rx 5-325] Ferrous Sulfate [Iron] 325 mg PO DAILY #30 tablet 05/11/20 05/21/20 Rx Rivaroxaban [Xarelto] 15 mg PO DAILY #30 tab 05/11/20 05/21/20 Rx clindamycin HCL [Cleocin] 300 mg PO Q8H 05/21/20 05/21/20 History Allergies Allergy/AdvReac Type Severity Reaction Status Date / Time cephalexin monohydrate Allergy HIVES Verified 05/22/20 11:41 [From Keflex] diphenhydramine HCl Allergy SWELLING Verified 05/22/20 11:41 [From Benadryl] OF TONGUE, SOB enoxaparin [From Lovenox] Allergy Rash/Hives Verified 05/22/20 11:41 Penicillins Allergy SWELLING, Verified 05/22/20 11:41 HIVES aspirin AdvReac EXCESS Verified 05/22/20 11:41 BLEEDING morphine AdvReac Vomiting Verified 05/22/20 11:41 sulfamethoxazole AdvReac Nausea & Verified 05/22/20 11:41 [From Bactrim] Vomiting trimethoprim [From Bactrim] AdvReac Nausea & Verified 05/22/20 11:41 Vomiting Physical Exam Vitals: Vital Signs Temp Pulse Pulse Resp BP Pulse Ox 05/22/20 15:35 72 134/71 05/22/20 15:05 70 132/69 05/22/20 14:50 64 132/57 05/22/20 14:35 57 L 131/54 05/22/20 13:57 64 16 151/69 99 05/22/20 13:45 64 16 156/68 100 05/22/20 13:40 158/67 05/22/20 13:30 66 16 176/72 100 05/22/20 13:16 97 F L 71 16 177/75 100 05/22/20 12:00 97.3 F L 59 L 16 149/80 100 Intake and Output 05/22/20 05/22/20 05/22/20 06:59 14:59 22:59 Intake Total 750 Output Total 2 Balance 748 Intake: IV 750 Output: Estimated Blood Loss 2 Other: # Voids 1 Weight 71 kg Constitutional: No acute distress, conversant, pleasant Eyes: Anicteric sclerae, moist conjunctiva, no lid-lag, PERRLA ENMT: NC/AT,Oropharynx clear, no erythema, exudates Neck:Supple, FROM, no masses, or JVD, No carotid bruits; No thyromegaly Lungs: Clear to auscultation, Clear to percussion, Normal respiratory effort, no accessory muscle use Cardiovascular: Heart regular in rate and rhythm, No murmurs, gallops, or rubs no peripheral edema Abdominal: Soft Nontender, nom distended, no guarding, no rebound or rigidity, Normoactive bowel sounds No hepatomegaly, No splenomegaly, No palpable mass No abdominal wall hernia noted Skin: Normal temperature, tone, texture, turgor, right thigh wound VAC in place Extremities:No digital cyanosis No clubbing, Pedal pulses intact and symmetrical Radial pulses intact and symmetrical Normal gait and station, No calf tenderness Psychiatric: Alert and oriented to person, place and time, Appropriate affect Intact judgement Neuro: Muscles Strength 5/5 in all 4 extremities, Sensation to light touch grossly present throughout, Cranial nerves II-XII grossly intact. No focal sensory deficits Assessment and Plan Plan: 1. Right thigh hematoma: Status post hematoma evacuation and wound VAC. Continue pain control as indicated. 2. Chronic A. fib: Continue nadolol, hold Xarelto , monitor H&H 3. Essential hypertension 4. Coronary artery disease without evidence of acute bone syndrome: Monitor 5. History of myocardial infarction. 6. Fibromyalgia: Supportive care 7. Asthma without exacerbation: Oxygen and bronchodilators as indicated 8. GERD without esophagitis: Continue PPI 9. Depression: Continue Cymbalta Thank you for the consultation we will follow with you
[2020-05-22] MEDS: HYDROcodone/APAP 5-325MG 1 EACH TAB PO PRN ×2 (16:16→20:10)
[2020-05-22] MEDS: CLINDAMYCIN 900 MG in DEXTROSE 5% IN WATER 50 ML IVPB SCH ×4 (16:18→23:28)
[2020-05-22] MEDS: PANTOPRAZOLE 40 MG TABLET PO SCH (16:56)
[2020-05-22] MEDS: ALBUTEROL NEBULIZED 2.5 MG/3 ML INHALATION PRN (19:35)
[2020-05-23] MEDS: IPRATROPIUM 0.5 MG/2.5 ML NEBU INHALATION PRN (08:00)
[2020-05-23] MEDS: ALBUTEROL NEBULIZED 2.5 MG/3 ML INHALATION PRN ×2 (08:00→19:12)
[2020-05-23] MEDS: FERROUS SULFATE 325 MG TAB PO SCH (08:43)
[2020-05-23] MEDS: DULoxetine HCL 30 MG CAPSULE.DR PO SCH (08:43)
[2020-05-23] MEDS: HYDROcodone/APAP 5-325MG 1 EACH TAB PO PRN (08:43)
[2020-05-23] MEDS: DOCUSATE 100 MG CAP PO SCH (08:43)
[2020-05-23] MEDS: PANTOPRAZOLE 40 MG TABLET PO SCH ×2 (08:43→17:47)
[2020-05-23] MEDS: LACTATED RINGERS 1,000 ML IV SCH (08:49)
[2020-05-23] MEDS ORDERED: LYSINE PO SCH (09:00)
[2020-05-23 10:47] LABS: Basophils % (A) 1 %; Eosinophils # (A) 0.1 k/uL (0-0.7); Eosinophils % (A) 1 %; HCT 31.6 % (34.0-46.0); HGB 9.8 gm/dL (11.4-16.0); Hypochromasia Marked; Lymphocytes # (A) 1.6 k/uL (1.0-4.8); Lymphocytes % (A) 19 %; MCH 28.9 pg (25.0-35.0); MCHC 30.9 g/dL (31.0-37.0); MCV 93.4 fL (80.0-100.0); Mean Platelet Volume 6.8; Monocytes # (A) 0.6 k/uL (0-1.0); Monocytes % (A) 8 %; Neutrophils # (A) 5.7 k/uL (1.3-7.7); Neutrophils % (A) 71 %; Platelet Count 840 k/uL (150-450); RBC 3.38 m/uL (3.80-5.40); RDW 14.3 % (11.5-15.5); WBC 8.1 k/uL (3.8-10.6)
[2020-05-23 11:42] LABS: Anisocytosis (M) Present; Poikilocytosis (M) Present
[2020-05-23] MEDS: HYDROcodone/APAP 7.5-325MG 1 EACH TAB PO PRN ×2 (13:09→17:47)
--- NOTE | 2020-05-23 13:26 | P.PN ---
Subjective Progress Note Date: 05/23/20 Patient seen and examined at the bedside Dr. Guardado. The patient is postop day 1 for right thigh hematoma evacuation. The patient states she is concerned because her some additional swelling and hardness to the medial aspect of her right thigh with some surrounding erythema. The patient denies any fever or chills through the night. She denies any bleeding. Patient has a wound VAC that is intact with suction, with less than 50 mL of sanguineous output. She does complain of right extremity pain at surgical site, and difficulty with putting pressure on that leg due to pain. Objective - Vital Signs Vital signs: Vital Signs Temp 97.6 F 05/23/20 07:13 Pulse 67 05/23/20 08:09 Resp 20 05/23/20 07:13 BP 129/63 05/23/20 07:13 Pulse Ox 96 05/23/20 07:13 Intake & Output 05/22/20 05/23/20 05/23/20 18:59 06:59 18:59 Intake Total 750 240 Output Total 2 Balance 748 240 Weight 71 kg Intake: IV 750 Oral 240 Output: Estimated Blood Loss 2 Other: Voiding Method Bedside Commode # Voids 1 2 - Exam General appearance: The patient is alert, oriented, in no acute distress. HET: Head is normocephalic and atraumatic. Pupils are equal and reactive. Oropharynx is clear without lesions. Neck: Supple without lymphadenopathy. Trachea midline. Heart: S1 S2. Regular rate and rhythm. Lungs: No crackles or wheezes are heard. Extremities: Normal skin color and turgor. Right lower extremity palpable femoral, PT and DP pulses. Medial aspect of the thigh with some swelling and firmness, old [place] drain site closed. Mild surrounding erythema. Wound VAC intact with suction. Neurological: No focal deficits. Strength and sensation are grossly intact. - Labs CBC & Chem 7: 05/23/20 10:07 Assessment and Plan Assessment: 1. Postop day 1 right thigh hematoma evacuation 2. Right thigh hematoma, right thigh skin necrosis Plan: CBC was ordered, WBC 8.1, hemoglobin 9.8, hematocrit, 31.6, platelets 840. AP CBC in the morning. Patient was reassured at this time that she remains afebrile, CBC was normal, and hematoma has improved. Continue with wound VAC. At this time no further surgical intervention is planned. Continue with pain management. Increase ambulation. Continue to monitor closely. We will keep patient overnight with likely discharge tomorrow. The above dictated assessment and findings were discussed with Dr. Guardado. The impression and plan of care have been directed as dictated.
[2020-05-23] MEDS ORDERED: RIVAROXABAN 15 MG TAB PO SCH (17:30)
--- NOTE | 2020-05-23 18:25 | P.PN ---
Subjective Progress Note Date: 05/23/20 (delayed charting seen at 0935) Principal diagnosis: right leg pain Patient is a 74-year-old female his has a history of atrial fibrillation, coronary artery disease, fibromyalgia, GERD, hypertension, and multiple other comorbid conditions who was sent in for operative debridement and evacuation of hematoma due to right groin hematoma post cath. Patient seen and examined at bedside. She complains of continued pain in her right upper thigh, she is worried that it feels slightly hard, no nausea, no vomiting, no chest pain, no shortness of breath. She states that the [place] 5s are not helping her pain. Objective - Vital Signs Vital signs: Vital Signs Temp 97.8 F 05/23/20 11:42 Pulse 56 L 05/23/20 11:42 Resp 16 05/23/20 15:37 BP 144/62 05/23/20 11:42 Pulse Ox 98 05/23/20 11:42 Intake & Output 05/22/20 05/23/20 05/23/20 18:59 06:59 18:59 Intake Total 750 240 Output Total 2 Balance 748 240 Weight 71 kg Intake: IV 750 Oral 240 Output: Estimated Blood Loss 2 Other: Voiding Method Bedside Commode Bedside Commode # Voids 1 2 3 # Bowel Movements 0 - Exam General: non toxic, no distress, appears at stated age Derm: Right groin erythema without significant warmth, wound VAC in place warm, dry Head: atraumatic, normocephalic, symmetric Eyes: EOMI, no lid lag, anicteric sclera Mouth: no lip lesion, mucus membranes moist Cardiovascular: S1S2 reg, no murmur, positive posterior tibial pulse bilateral, Lungs: CTA bilateral, no rhonchi, no rales , no accessory muscle use Abdominal: soft, nontender to palpation, no guarding, no appreciable organomegaly Ext: no gross muscle atrophy, no edema, no contractures Neuro: CN II-XI grossly intact, no focal neuro deficits Psych: Alert, oriented, appropriate affect - Labs CBC & Chem 7: 05/23/20 10:07 Labs: Abnormal Lab Results - Last 24 Hours (Table) 05/23/20 Range/Units 10:07 RBC 3.38 L (3.80-5.40) m/uL Hgb 9.8 L (11.4-16.0) gm/dL Hct 31.6 L (34.0-46.0) % MCHC 30.9 L (31.0-37.0) g/dL Plt Count 840 H (150-450) k/uL Assessment and Plan Assessment: 74-year-old female status post right thigh hematoma evacuation and debridement with wound VAC in place Intractable right groin pain -Increase [place] 7.5, 325 -Further recommendations from vascular surgery Chronic A. fib -Continue with nadolol, Xarelto, follow heart rate Hypertension -controlled -Continue with nadolol Coronary artery disease without evidence of acute coronary syndrome -Recent cath that did not require intervention -Outpatient follow-up with cardiology Fibromyalgia -Continue with Lyrica and Cymbalta Mild intermittent Asthma without exacerbation -As needed bronchodilators GERD with esophagitis -Protonix Thank you for allowing us to participate in the care of this pleasant patient. Do not hesitate to contact us with questions. Someone can be reached from the [facility] hospitalist group all hours of the day at [phone] or via perfect serve.
[2020-05-23] MEDS: PREGABALIN 75 MG CAP PO SCH (20:58)
[2020-05-24 06:14] VITALS: BP 154/75; RESP 18; TEMP 97.9
[2020-05-24] MEDS: LACTATED RINGERS 1,000 ML IV SCH (06:26)
[2020-05-24 06:53] LABS: Basophils # (A) 0.1 k/uL (0-0.2); Basophils % (A) 2 %; Eosinophils # (A) 0.3 k/uL (0-0.7); Eosinophils % (A) 4 %; HCT 31.2 % (34.0-46.0); HGB 9.6 gm/dL (11.4-16.0); Hypochromasia Moderate; Lymphocytes # (A) 1.9 k/uL (1.0-4.8); Lymphocytes % (A) 33 %; MCH 28.6 pg (25.0-35.0); MCHC 30.8 g/dL (31.0-37.0); Mean Platelet Volume 6.6; Monocytes # (A) 0.5 k/uL (0-1.0); Monocytes % (A) 8 %; Neutrophils % (A) 51 %; Platelet Count 722 k/uL (150-450); RBC 3.36 m/uL (3.80-5.40); RDW 14.5 % (11.5-15.5); WBC 5.8 k/uL (3.8-10.6)
[2020-05-24] MEDS: HYDROcodone/APAP 7.5-325MG 1 EACH TAB PO PRN ×2 (08:39→12:49)
[2020-05-24] MEDS: PREGABALIN 75 MG CAP PO SCH (08:40)
[2020-05-24] MEDS: PANTOPRAZOLE 40 MG TABLET PO SCH (08:41)
[2020-05-24] MEDS: DULoxetine HCL 30 MG CAPSULE.DR PO SCH (08:41)
[2020-05-24] MEDS: FERROUS SULFATE 325 MG TAB PO SCH (08:41)
[2020-05-24] MEDS: DOCUSATE 100 MG CAP PO SCH (08:42)
[2020-05-24] MEDS: ALBUTEROL NEBULIZED 2.5 MG/3 ML INHALATION PRN (09:10)
[2020-05-24] MEDS: IPRATROPIUM 0.5 MG/2.5 ML NEBU INHALATION PRN (09:10)
[2020-05-24 09:12] VITALS: PULSE 66
--- NOTE | 2020-05-24 11:54 | P.PN ---
Subjective Progress Note Date: 05/24/20 Principal diagnosis: right leg pain Patient is a 74-year-old female his has a history of atrial fibrillation, coronary artery disease, fibromyalgia, GERD, hypertension, and multiple other comorbid conditions who was sent in for operative debridement and evacuation of hematoma due to right groin hematoma post cath. Patient seen and examined at bedside. Pain is better controlled than yesterday, no chest pain, no shortness of breath, no nausea, no diarrhea. Objective - Vital Signs Vital signs: Vital Signs Temp 97.9 F 05/24/20 05:00 Pulse 66 05/24/20 09:26 Resp 18 05/24/20 05:00 BP 154/75 05/24/20 05:00 Pulse Ox 97 05/24/20 05:00 Intake & Output 05/23/20 05/24/20 05/24/20 18:59 06:59 18:59 Intake Total 240 520 Balance 240 520 Intake: Intake, IV Titration 50 Amount Clindamycin 900 mg In 50 Dextrose 5% in Water 50 ml @ 50 mls/hr IVPB Q8HR [facility] Rx#:[id number] Oral 240 470 Other: Voiding Method Bedside Commode Bedside Commode # Voids 3 2 # Bowel Movements 0 - Exam General: non toxic, no distress, appears at stated age Derm: Right groin swelling no erythema without significant warmth, wound VAC in place Head: atraumatic, normocephalic, symmetric Eyes: EOMI, no lid lag, anicteric sclera Mouth: no lip lesion, mucus membranes moist Cardiovascular: S1S2 reg, no murmur, positive posterior tibial pulse bilateral, Lungs: CTA bilateral, no rhonchi, no rales , no accessory muscle use Ext: no gross muscle atrophy, no edema, no contractures Neuro: CN II-XI grossly intact, no focal neuro deficits Psych: Alert, oriented, appropriate affect - Labs CBC & Chem 7: 05/24/20 06:26 Labs: Abnormal Lab Results - Last 24 Hours (Table) 05/24/20 Range/Units 06:26 RBC 3.36 L (3.80-5.40) m/uL Hgb 9.6 L (11.4-16.0) gm/dL Hct 31.2 L (34.0-46.0) % MCHC 30.8 L (31.0-37.0) g/dL Plt Count 722 H (150-450) k/uL Assessment and Plan Assessment: 74-year-old female status post right thigh hematoma evacuation and debridement with wound VAC in place Intractable right groin pain -[place] 7.5/325 Rx completed -Further recommendations from vascular surgery Chronic A. fib -Continue with nadolol, Xarelto, follow heart rate Hypertension -controlled -Continue with nadolol Anemia, due to prior recent acute blood loss - follow CBC - Continue Iron therapy Coronary artery disease without evidence of acute coronary syndrome -Recent cath that did not require intervention -Outpatient follow-up with cardiology Fibromyalgia -Continue with Lyrica and Cymbalta Mild intermittent Asthma without exacerbation -As needed bronchodilators GERD with esophagitis -Protonix Medically optimized for discharge. Medical Rx written.
--- NOTE | 2020-05-24 12:01 | P.PN ---
Subjective Progress Note Date: 05/24/20 Principal diagnosis: Right thigh hematoma status post evacuation Patient seen and examined the bedside. Doing much better today than yesterday. Patient states her pain is improving but she still has induration and some discomfort. She denies any fevers, chills, chest pain or shortness of breath. Objective - Vital Signs Vital signs: Vital Signs Temp 97.9 F 05/24/20 05:00 Pulse 66 05/24/20 09:26 Resp 18 05/24/20 05:00 BP 154/75 05/24/20 05:00 Pulse Ox 97 05/24/20 05:00 Intake & Output 05/23/20 05/24/20 05/24/20 18:59 06:59 18:59 Intake Total 240 520 Balance 240 520 Intake: Intake, IV Titration 50 Amount Clindamycin 900 mg In 50 Dextrose 5% in Water 50 ml @ 50 mls/hr IVPB Q8HR [facility] Rx#:[id number] Oral 240 470 Other: Voiding Method Bedside Commode Bedside Commode # Voids 3 2 # Bowel Movements 0 - Exam Wound VAC in place in the medial right thigh. There is some induration noted around the surgical site but area of question of the medial thigh is diminished compared to yesterday. There is still minimal tenderness to palpation. - Constitutional General appearance: Present: cooperative, no acute distress - EENT Eyes: Present: PERRLA - Respiratory Respiratory: bilateral: CTA - Cardiovascular Rhythm: regular - Psychiatric Psychiatric: Present: A&O x's 3, appropriate affect, intact judgment & insight - Labs CBC & Chem 7: 05/24/20 06:26 Labs: Abnormal Lab Results - Last 24 Hours (Table) 05/24/20 Range/Units 06:26 RBC 3.36 L (3.80-5.40) m/uL Hgb 9.6 L (11.4-16.0) gm/dL Hct 31.2 L (34.0-46.0) % MCHC 30.8 L (31.0-37.0) g/dL Plt Count 722 H (150-450) k/uL Assessment and Plan Assessment: #1 postop day 2 right thigh hematoma evacuation with wound VAC placement #2 right thigh hematoma with right thigh skin necrosis Plan: Okay for discharge home and follow up next week with Dr. Logan. Home care is ordered and will be changing the VAC tomorrow per the patient. Continue pain medication until seen by Dr. Logan.
== END 2020-05-24 14:42 | disposition home health service (06) ==
LOC: OR 11:11 → 5NMEDONC 13:07 → OR 05-23 11:29
PROVIDERS: ADMIT Surgery; ATTEND Surgery
DX: G89.18 Other acute postprocedural pain (principal); L76.32 Postprocedural hematoma of skin and subcutaneous tissue following other procedure; I96 Gangrene, not elsewhere classified; R10.31 Right lower quadrant pain; D62 Acute posthemorrhagic anemia; I25.10 Atherosclerotic heart disease of native coronary artery without angina pectoris; M79.7 Fibromyalgia; I10 Essential (primary) hypertension; I25.2 Old myocardial infarction; M19.90 Unspecified osteoarthritis, unspecified site; M06.9 Rheumatoid arthritis, unspecified; G43.909 Migraine, unspecified, not intractable, without status migrainosus; K57.90 Diverticulosis of intestine, part unspecified, without perforation or abscess without bleeding; E89.0 Postprocedural hypothyroidism; I48.20 Chronic atrial fibrillation, unspecified; F32.9 Major depressive disorder, single episode, unspecified; J45.20 Mild intermittent asthma, uncomplicated; K21.0 Gastro-esophageal reflux disease with esophagitis; I44.7 Left bundle-branch block, unspecified; Z86.19 Personal history of other infectious and parasitic diseases; Z88.8 Allergy status to other drugs, medicaments and biological substances; Z88.1 Allergy status to other antibiotic agents; Z88.0 Allergy status to penicillin; Z88.2 Allergy status to sulfonamides; Z88.6 Allergy status to analgesic agent; Z88.5 Allergy status to narcotic agent; Z85.820 Personal history of malignant melanoma of skin; Z87.11 Personal history of peptic ulcer disease; Z87.442 Personal history of urinary calculi; Z98.890 Other specified postprocedural states; Z90.49 Acquired absence of other specified parts of digestive tract; Z90.710 Acquired absence of both cervix and uterus; Z96.641 Presence of right artificial hip joint; Z96.651 Presence of right artificial knee joint; Z91.89 Other specified personal risk factors, not elsewhere classified; Z87.898 Personal history of other specified conditions; Z79.890 Hormone replacement therapy; Z79.899 Other long term (current) drug therapy; Z79.891 Long term (current) use of opiate analgesic; Z79.01 Long term (current) use of anticoagulants; Z97.2 Presence of dental prosthetic device (complete) (partial); Z80.9 Family history of malignant neoplasm, unspecified; Z82.49 Family history of ischemic heart disease and other diseases of the circulatory system
CPT/HCPCS: 10140; 11043; 11046 ×2; 97605; 94640 ×4; 85025 ×2; G0378 ×2; J2250; J1100; J2405; J2001; J3010; J0330; J2704

== ENCOUNTER → 2020-07-08 | Outpatient (CLI) | payer MEDICARE, BC ==
--- NOTE | 2020-07-08 16:48 | US ---
EXAMINATION TYPE: US lower ext pseudo artery RT DATE OF EXAM: 07/08/2020 COMPARISON: CT CLINICAL HISTORY: L02.41 Cutaneous abscess of limb. Pt states heart cath with right groin approach in April with complications of active bleeding from right femoral artery, surgical repair of right femor al artery post heart cath/ pt states recent right medial thigh swelling EXAM PERFORMED: Grayscale and color Doppler duplex imaging performed of the groin, post cardiac nic[address] ter to assess for pseudoaneurysm. SIDE PERFORMED: Right Color and Waveform Doppler performed to assess for the presence of pseudoaneurysm; Is there ultrasound evidence of a pseudoaneurysm: No Is there evidence of AV shunting: No Is there a fluid collection present: No sizeable fluid collection present/ in area of pt's swelling t here appears to be soft tissue edema IMPRESSION: No evidence of pseudoaneurysm. No discrete drainable fluid collection.
== END | disposition home or self-care (01) ==
LOC: RADUSWWP 15:53
PROVIDERS: ATTEND Nurse Practitioner Family
DX: L02.415 Cutaneous abscess of right lower limb (principal)
CPT/HCPCS: 93975

== ENCOUNTER → 2020-10-06 | Outpatient (CLI) | payer MEDICARE, BC ==
[2020-10-06 15:26] LABS: HCT 34.9 % (34.0-46.0); HGB 11.2 gm/dL (11.4-16.0); MCH 29.9 pg (25.0-35.0); MCHC 32.2 g/dL (31.0-37.0); MCV 92.8 fL (80.0-100.0); Mean Platelet Volume 7.2; Platelet Count 312 k/uL (150-450); RBC 3.76 m/uL (3.80-5.40); RDW 15.4 % (11.5-15.5); WBC 5.8 k/uL (3.8-10.6)
[2020-10-06 15:29] LABS: Appearance,Urine Clear (Clear); Bilirubin,Urine Negative (Negative); Blood,Urine Negative (Negative); Color,Urine Yellow; Glucose,Urine (UA) Negative (Negative); Hyaline Casts,Urine 18 /lpf (0-2); Ketones,Urine Negative (Negative); Leukocyte Esterase,Urine Trace (Negative); Mucus,Urine Occasional /hpf; Nitrite,Urine Negative (Negative); PH, Urine 5.5 (5.0-8.0); Protein,Urine Trace (Negative); RBC,Urine 1 /hpf (0-5); Specific Gravity,Urine 1.031 (1.001-1.035); Squamous Epithelial Cell,Urine 2 /hpf (0-4); WBC,Urine 4 /hpf (0-5)
[2020-10-06 15:37] LABS: Albumin 4.1 g/dL (3.5-5.0); Potassium 4.5 mmol/L (3.5-5.1); Total Bilirubin 0.3 mg/dL (0.2-1.3); Total Protein 7.5 g/dL (6.3-8.2)
[2020-10-06 16:00] LABS: INR 0.9 (<1.2); Partial Thromboplastin Time 24.9 sec (22.0-30.0); Prothrombin Time 9.9 sec (9.0-12.0)
== END | disposition home or self-care (01) ==
LOC: LABPAT 14:10
PROVIDERS: ATTEND Orthopaedic Surgery Sports Medicine
DX: Z01.818 Encounter for other preprocedural examination (principal); Z01.812 Encounter for preprocedural laboratory examination
CPT/HCPCS: 36415; 80053; 81001; 85027; 85610; 85730; 87070

== ENCOUNTER 2020-10-30 07:49 | Observation (INO) | payer MEDICARE, BC ==
[2020-10-22 12:36] VITALS: BMI 28.1
[~2020-10-30 07:49] MED LIST changes: +ACETAMINOPHEN TAB 500 MG TAB PO PRN; +CLINDAMYCIN 900 MG in DEXTROSE 5% IN WATER 50 ML IVPB PRN; -DEXAMETHASONE SOD PHOSPHATE 10 MG/ML 1 ML VIAL IV ONE; +GABAPENTIN 300 MG CAP PO PRN; -LIDOCAINE 1% (10MG/ML) FOR IV START INTRADERMA PRN; +MELOXICAM 7.5 MG TAB PO PRN; -Pre Op ABX Message 1 EACH MISC MISCELLANE ONE; +ROPIVACAINE 246.25 MG, EPINEPHrine 0.5 MG, KETOROLAC 30 MG, cloNIDine HCL/PF 80 MCG, WA... MISCELLANE PRN; +TRANEXAMIC ACID 1,000 MG in SODIUM CHLORIDE 0.9% 100 ML IVPB PRN; +fentaNYL (PF) 50 MCG/ML 2 ML AMP IV PRN
[2020-10-30] MEDS ORDERED: ONDANSETRON 4 MG/2 ML VIAL ONE (08:03)
[2020-10-30] MEDS ORDERED: VANCOMYCIN 1,250 MG in SODIUM CHLORIDE 0.9% 250 ML IVPB STA (08:24)
[2020-10-30] MEDS: LACTATED RINGERS 1,000 ML IV SCH ×4 (08:36→12:52)
[2020-10-30] MEDS ORDERED: DEXAMETHASONE SOD PHOSPHATE 4 MG/ML 1 ML VIAL IV ONE (08:36)
[2020-10-30] MEDS ORDERED: LIDOCAINE 1% (10MG/ML) FOR IV START INTRADERMA ONE (08:48)
[2020-10-30 08:51] LABS: INR 0.9 (<1.2); Prothrombin Time 10.1 sec (9.0-12.0)
[2020-10-30] MEDS ORDERED: MIDAZOLAM 2 MG/2 ML VIAL IV ONE (09:05)
[2020-10-30] MEDS ORDERED: bisacodyL 10 MG SUPP RECTAL PRN (09:10)
[2020-10-30] MEDS ORDERED: diazePAM 5 MG TAB PO PRN (09:10)
[2020-10-30] MEDS ORDERED: NA PHOS,M-B/NA PHOS,DI-BA 133 ML ENEMA RECTAL PRN (09:10)
[2020-10-30] MEDS ORDERED: traMADol 50 MG TAB PO PRN (09:10)
[2020-10-30] MEDS ORDERED: HYDROmorphone 0.5 MG/0.5 ML SYRINGE IVP PRN ×2 (09:10)
[2020-10-30] MEDS ORDERED: NALOXONE 0.4 MG/ML 1 ML VIAL IV PRN (09:10)
[2020-10-30] MEDS ORDERED: ONDANSETRON 4 MG/2 ML VIAL IVP PRN (09:10)
[2020-10-30] MEDS ORDERED: HYDROmorphone 0.2 MG/1 ML SYRINGE IVP PRN (09:10)
[2020-10-30] MEDS ORDERED: TEMAZEPAM 15 MG CAP PO PRN (09:10)
[2020-10-30] MEDS ORDERED: ACETAMINOPHEN TAB 325 MG TAB PO PRN (09:10)
[2020-10-30] MEDS ORDERED: MAGNESIUM HYDROXIDE 2,400 MG/10 ML CUP PO PRN (09:10)
[2020-10-30] MEDS ORDERED: fentaNYL (PF) 50 MCG/ML 2 ML AMP ONE (09:19)
[2020-10-30] MEDS ORDERED: TRANEXAMIC ACID 1,000 MG/10 ML VIAL ONE (09:19)
[2020-10-30] MEDS ORDERED: MIDAZOLAM 2 MG/2 ML VIAL ONE (09:19)
[2020-10-30] MEDS ORDERED: SODIUM CHLORIDE 0.9% 100 ML BAG ONE (09:19)
[2020-10-30] MEDS ORDERED: SUCCINYLCHOLINE CHLORIDE 100 MG/5 ML SYR IV ONE (09:19)
[2020-10-30] MEDS ORDERED: PROPOFOL 10 MG/ML 20 ML VIAL IV ONE (09:19)
[2020-10-30] MEDS ORDERED: CLINDAMYCIN 1,800 MG in SODIUM CHLORIDE 0.9% IRRIGATIO 3,000 ML IRRIGATION ONE (09:59)
[2020-10-30] MEDS ORDERED: ROPIVACAINE 0.2%-NS ON-Q PUMP 1,090 MG, EMPTY PAIN BALL 1 EACH MISCELLANE PRN (12:00)
[2020-10-30] MEDS: HYDROmorphone 1 MG/ML 1 ML SYRINGE IVP ONE ×4 (12:15→12:43)
[2020-10-30] MEDS ORDERED: KETOROLAC 15 MG/ML 1 ML VIAL IVP ONE (12:20)
--- NOTE | 2020-10-30 12:33 | XR ---
EXAMINATION TYPE: XR knee limited LT DATE OF EXAM: 10/30/2020 COMPARISON: None HISTORY: Post knee replacement TECHNIQUE: 2 view left knee FINDINGS: Tibial and femoral components are present without acute fractures. Soft tissue changes are present from postsurgical change. IMPRESSION: 1. No acute fractures post knee replacement
[2020-10-30] MEDS ORDERED: NON FORMULARY DRUG (Acetaminophen [Tylenol Arthritis] 650 MG Tablet.Er) PO PRN (15:16)
[2020-10-30] MEDS ORDERED: ALBUTEROL NEBULIZED 2.5 MG/3 ML INHALATION PRN (15:16)
[2020-10-30] MEDS ORDERED: IPRATROPIUM 0.5 MG/2.5 ML NEBU INHALATION PRN (15:16)
--- NOTE | 2020-10-30 15:31 | P.CONS ---
History of Present Illness - Reason for Consult Consult date: 10/30/20 Medical management - Chief Complaint Left knee pain - History of Present Illness 75-year-old female with history of Atrial Fibrillation, Asthma, Cancer, Fibromyalgia, GERD/Reflux, Hypertension, Myocardial Infarction (CO), Osteoarthritis (OA), Rheumatoid Arthritis (RA) here status post left total knee arthroplasty. She already got up to bedside commode. Currently having left knee pain. She denied shortness of breath or chest pain. No fevers or chills. No other symptoms. Of note patient had a right thigh hematoma last summer that was evacuated. Review of Systems Complete review of system performed, pertinent positives per HPI, otherwise negative Past Medical History Past Medical History: Atrial Fibrillation, Asthma, Coronary Artery Disease (CAD), Cancer, Fibromyalgia, GERD/Reflux, Hypertension, Myocardial Infarction (CO), Osteoarthritis (OA), Rheumatoid Arthritis (RA), Thyroid Disorder Additional Past Medical History / Comment(s): back pain, migraines, gastric ulcer, H-pylori, diverticular disease, , melanoma removed from face, kidney stones, hematoma in April in femoral artery after cardiac cath., finally resolved in Jul. Last Myocardial Infarction Date:: 2012 History of Any Multi-Drug Resistant Organisms: None Reported Past Surgical History: Back Surgery, Cholecystectomy, Heart Catheterization, Hysterectomy, Joint Replacement, Orthopedic Surgery Additional Past Surgical History / Comment(s): RODS & CAGES IN BACK, RT HIP REPLACEMENT, PARTIAL THYROIDECTOMY, RT KNEE REPLACEMENT, NECK SURGERY- LIDIA AND CAGES. Heart cath w/ no intervention, evacuation of hematoma after cardiac cath. Past Anesthesia/Blood Transfusion Reactions: Previous Problems w/ Anesthesia, Postoperative Nausea & Vomiting (PONV) Additional Past Anesthesia/Blood Transfusion Reaction / Comm: hard to wake up Past Psychological History: No Psychological Hx Reported Additional Psychological History / Comment(s): . Smoking Status: Never smoker Past Alcohol Use History: None Reported Past Drug Use History: None Reported - Past Family History Sister(s) Family Medical History: Cancer Brother(s) Family Medical History: Cancer Mother Family Medical History: Myocardial Infarction (CO) Additional Family Medical History / Comment(s): Mother of a CO at the age of 76yrs. Father History Unknown: Yes Medications and Allergies Home Medications Medication Instructions Recorded Confirmed Type Estradiol [Estrace] 2 mg PO DAILY 05/14/14 10/22/20 History Pantoprazole Sodium [Protonix] 40 mg PO BID 05/14/14 10/22/20 History Albuterol Nebulized [Ventolin 2.5 mg INHALATION QID PRN 08/16/18 10/22/20 History Nebulized] Ipratropium Nebulized [Atrovent 0.5 mg INHALATION QID PRN 11/13/18 10/22/20 History Nebulized 0.2 MG/ML] DULoxetine HCL [Cymbalta] 30 mg PO BID 10/06/19 10/22/20 History Albuterol Sulfate [Ventolin HFA] 1 - 2 puff INHALATION RT-Q6H PRN 10/29/19 10/22/20 History Acetaminophen [Tylenol Arthritis] 650 mg PO DAILY PRN 05/02/20 10/22/20 History Diclofenac Sodium Gel [Voltaren 4 gm TOPICAL QID PRN 05/02/20 10/22/20 History Gel] Glucosam/Chond/Hyalu/Cf Borate 1 tab PO DAILY 05/02/20 10/22/20 History [Move Free Joint Health Tablet] Lysine 500 mg PO DAILY #0 05/02/20 10/22/20 History Nadolol [Corgard] 40 mg PO DAILY 05/02/20 10/22/20 History HYDROcodone/APAP 7.5-325MG [Henderson 1 each PO Q4H PRN #21 tab 05/24/20 10/22/20 Rx 7.5-325] Pregabalin [Lyrica] 75 mg PO BID #14 cap 05/24/20 10/22/20 Rx Warfarin [Coumadin] 5 mg PO DAILY 10/22/20 10/22/20 History Allergies Allergy/AdvReac Type Severity Reaction Status Date / Time cephalexin monohydrate Allergy HIVES Verified 10/30/20 08:04 [From Keflex] diphenhydramine HCl Allergy SWELLING Verified 10/30/20 08:04 [From Benadryl] OF TONGUE, SOB enoxaparin [From Lovenox] Allergy Rash/Hives Verified 10/30/20 08:04 Penicillins Allergy SWELLING, Verified 10/30/20 08:04 HIVES aspirin AdvReac EXCESS Verified 10/30/20 08:04 BLEEDING morphine AdvReac Vomiting Verified 10/30/20 08:04 sulfamethoxazole AdvReac Nausea & Verified 10/30/20 08:04 [From Bactrim] Vomiting trimethoprim [From Bactrim] AdvReac Nausea & Verified 10/30/20 08:04 Vomiting Physical Exam Vitals: Vital Signs Temp Pulse Pulse Resp BP Pulse Ox 10/30/20 15:01 97.7 F 74 16 174/96 94 L 10/30/20 13:15 74 16 164/71 100 10/30/20 13:00 71 16 156/70 100 10/30/20 12:46 70 16 169/72 100 10/30/20 12:30 77 16 171/72 100 10/30/20 12:15 69 16 177/77 100 10/30/20 12:01 72 16 171/77 99 10/30/20 11:46 69 16 178/76 99 10/30/20 11:39 97.8 F 74 16 186/79 99 10/30/20 09:20 69 16 171/101 100 10/30/20 08:12 97 F L 65 16 177/84 98 Intake and Output 10/30/20 10/30/20 10/30/20 06:59 14:59 22:59 Intake Total 1401 Output Total 100 Balance 1301 Intake: IV 1401 Output: Estimated Blood Loss 100 Other: Weight 77.6 kg Constitutional: No acute distress, conversant, pleasant Eyes:Anicteric sclerae, moist conjunctiva, no lid-lag, PERRLA, ENMT: Oropharynx clear, no erythema, exudates Neck: Supple, FROM, no masses, or JVD, No carotid bruits, No thyromegaly Lungs: Clear to auscultation, Clear to percussion, Normal respiratory effort, no accessory muscle use Cardiovascular: Heart regular in rate and rhythm, No murmurs, gallops, or rubs, No peripheral edema Abdominal: Soft, Nontender, no guarding, rebound or rigidity, Normoactive bowel sounds, No hepatomegaly, No splenomegaly, No palpable mass Skin: Normal temperature, tone, texture, turgor, no induration, No subcutaneous nodules, No rash, lesions, No ulcers Extremities: Dressings over the left knee. No digital cyanosis, No clubbing, Pedal pulses intact and symmetrical, Radial pulses intact and symmetrical, No calf tenderness Psychiatric: Alert and oriented to person, place and time, appropriate affect, intact judgement Neuro: Muscles Strength 5/5 in all 4 extremities, Sensation to light touch grossly present throughout, Cranial nerves II-XII grossly intact, no focal sensory deficits Assessment and Plan Plan: Postoperative day #0 left knee total arthroplasty Pain management Physical therapy Per your surgical management Atrial Fibrillation, Please resume anticoagulation once appropriate from a surgical perspective Asthma, Duonebs twice daily and every 6 hours when necessary. Chronic Fibromyalgia, GERD/Reflux, Hypertension, Osteoarthritis (OA), Rheumatoid Arthritis (RA) All stable resume meds Anticipated discharge: 1-2 days Disposition: Likely home
[2020-10-30] MEDS: HYDROcodone/APAP 10-325MG 1 EACH TAB PO PRN ×2 (15:44→20:43)
[2020-10-30 16:09] LABS: Glucose,Whole Blood 121 mg/dL (75-99)
--- NOTE | 2020-10-30 17:24 | OP ---
OPERATIVE REPORT DATE OF PROCEDURE: 10/30/2020. SURGEON: Mo Dumont M.D. EXERCISE EQUIPMENT REPAIR TECHNICIAN: Lucas ROTHMAN. PREOPERATIVE DIAGNOSIS: Left knee osteoarthrosis. POSTOP DIAGNOSIS: Left knee osteoarthrosis. OPERATION PERFORMED: Left total knee arthroplasty. ANESTHESIA: General endotracheal. ESTIMATED BLOOD LOSS: 100 mL. TOURNIQUET: Tourniquet time was 62 minutes at 250 mmHg. COMPLICATIONS: None apparent. DRAINS: None. DISPOSITION: Postanesthesia care unit. INDICATIONS: Lily is a 75-year-old female with longstanding history of left knee pain. History and physical examination are consist with advanced left knee osteoarthrosis. She has been through significant nonoperative management up to this point. Further treatment options were discussed and she decided to go forward with a left total knee arthroplasty. The risks of procedure were discussed with her in detail. These risks include, but are not limited to risk of infection, nerve damage, bleeding, pain, and a small risk of deep vein thrombosis which could lead to fatal pulmonary embolism. There is also risk of loosening of the implant which could require revision operation. The patient understands these risks. Her questions were answered to her satisfaction. Appropriate informed consent was obtained. DESCRIPTION OF THE PROCEDURE: The patient was identified in the preoperative holding area. Surgical site was marked by both the patient and myself. She was given 2 g of Ancef IV for prophylactic purposes. She was then transferred to the operative suite. She was placed supine on the operative table. Spinal anesthetic was then administered, dosed per the anesthesia without apparent complication. Examination under anesthesia then performed. The patient was 7-10 degrees shy of full extension. She had 100 degrees of flexion. Medial collateral ligament, lateral collateral ligament and posterior cruciate ligaments were stable. Tourniquet was then placed high on the left upper thigh well-padded in preparation for surgery. The patient's left lower extremity was then prepped and draped in usual sterile fashion. Standard surgical pause undertaken to ensure that we were operating on the correct site and that appropriate preoperative antibiotics were given. All staff in the room were in agreement and we proceeded. The outlines of the patella were marked with a surgical pen. A planned 12 cm vertical incision centered over the patella was marked with a surgical pen. Leg was exsanguinated with an Esmarch dressing. The knee was then flexed and tourniquet was inflated to 250 mmHg. The total tourniquet time for the procedure was 62 minutes. Incision was then made with a 10 blade scalpel. Dissection carried down sharply overlying fascia. Great care was taken to minimize the skin flaps. The knee was then exposed using a standard medial parapatellar approach. A small cuff of quadriceps tendon was then left for suturing. She was in quite a bit of varus preoperatively. A standard medial release was then made. The superficial medial collateral ligament was dissected off the bone around the posterior aspect of the proximal tibia. The medial meniscus was then excised as well. The lateral meniscus was also released anteriorly. The leg was then externally rotated. The patella was everted. The knee was flexed. The retractors then placed to protect the collateral ligaments. I then proceeded to remove the infrapatellar fat pad. This was excised sharply tangentially with fibers of the patellar tendon. I then proceeded to remove the peripheral osteophytes. This was done with a rongeur. I then proceeded with distal femoral resection. She did have a flexion contracture. A planned 11 mm resection was then done. The femoral canal was then entered in midline of the femur approximately 10 mm anterior to the origin of the posterior cruciate ligament. The oliverio was then advanced down the center of the femur and the oliverio placed intramedullary. Based on the preoperative radiographs, the angle between the anatomic and mechanical axis of the femur was approximately 4-5 degrees. The valgus angle of the distal femoral cutting guide was then set at 4 degrees for the left knee. Distal femoral cutting guide was then advanced over the intramedullary oliverio. This was seated firmly against the femur. I then as mentioned planned to take 11 mm off the distal femur. The cutting block was then secured onto the femur with pins. The jig was then removed and the distal femoral cut was made through the slot of the block. The pins were then removed. The distal femoral cutting block was removed. The accuracy of the distal femoral cuts was checked with 2 flat bars. I then proceeded with femoral sizing. Posterior referencing sizing guide was held firmly against the resected distal surface of the femur. Posterior condyles were resting on the posterior plane of the guide. The sizing guide was then placed on the anterior femur. The size was measured as a size 6. I then assessed for femoral rotation. Plan was for 3 degrees external rotation. Three degrees external rotation was placed onto the jig. These holes were then marked. I then confirmed the rotation by 3 separate methods. This was done using epicondylar axis as well as Whitesides line and posterior referencing. It was deemed that the external rotation was proper. I then went forward with placing the femoral cutting block. This was placed over the previously placed pin holes. The Marc wing was then placed on the anterior slots to ensure that we would not notch the anterior femur with the anterior femoral cut. I then proceeded with the anterior femoral cut. This was flush with the anterior cortex of the femur. The posterior cuts were then made followed by the anterior chamfer cut, then the posterior chamfer cut. The cutting block was then removed. Throughout the resection, the collateral ligaments were protected with retractors. I then placed a trial size 6 femur. It fit very nice medial- lateral and fit flush with the distal end of the femur. The drill holes were then made. I then proceed with the tibial cut. I planned for cruciate retaining knee. The guide was placed in separate varus valgus and for slope. The height set for approximate 2 mm resection from the medial tibial plateau which was the lower side. I was happy with the alignment and the amount of resection. The cutting block was then pinned to the proximal tibia. The alignment oliverio was removed. The proximal tibia was resected with a reciprocating saw. Again this was done with retractors protecting the collateral ligaments as well as the posterior cruciate ligament. I then proceeded to evaluate the flexion extension gaps. A 10 mm block was then placed. The flexion-extension gaps were equal. I then proceeded with resection of posterior osteophytes which revealed very minimal posterior osteophytes. This was done using a curved osteotome. This resected the posterior osteophytes and posterior capsule stripping was done off the posterior aspect of the femur at this time. The osteophytes were then removed. I then proceeded with resection of the patella. The thickness of the patella was measured using the caliper. The thickness was 22 mm. The thickness of the anticipated patellar dome was taken into account. Resection was then performed and confirmed to be equal in 4 quadrants using a caliper. Approximately 14 mm of bone remained after resection. A 29 x 8 standard patellar trial was then placed. The holes were drilled. The trial was then placed. I then proceeded with sizing tibial plate. A size D tibial plate fit very nicely. I then placed the trial femur the tibial tray and patellar button. A 10 mm trial tibial insert was also placed. The components fit very nicely. She had full extension and flexion. The extension and flexion gaps were equal and stable to varus and valgus stress. The patella tracked appropriately. The tibial tray rotation was marked with a Bovie. It was externally rotated properly. I then proceed with tibial preparation. First made femoral holes and removed femoral component. The tibial tray was then set for proper external rotation as well as mediolateral placement onto the tibia. It was then pinned into place. Then proceeded with punching the keel. I then decided to proceed with cementing of all of our components. The knee was thoroughly irrigated with sterile saline solution via pulse lavage. The lateral geniculate artery was identified and cauterized. All blood was removed from the bone of the tibia femur and patella with pulse lavage. I then proceed with cementing. Two packs of antibiotic bone cement prepared on the back table by the nursing surgical services director. I then proceed with cementing the tibia first. Cement was impacted in the keel as well as the seated in the bone. A second coat of cement was then placed. The tibia was then impacted into place. Excess cement was removed with Janee's and jokers. I then proceed with cementing of the femoral component. The femoral component was also cemented using sterile technique. Excess cement was removed. A 10 mm trial insert was then placed into the knee. It was brought in full extension with a constant axial load placed until the cement had hardened. The patellar component was then cemented. This held firmly with a compressive device until the cement had dried. When the cement had dried, the knee was taken out of extension. All excess cement was removed from around the prosthesis. I then trialed the knee with a 10 mm insert. Flexion extension gaps were appropriate. The knee was stable. It came in full extension. I decided to go forward with a 10 mm medial congruent cross linked cruciate- retaining tibial insert. Polyethylene was then placed on the tibial tray and locked into place. The knee was then reduced. The knee was again further irrigated with sterile saline solution with antibiotic added. The tourniquet was then deflated. The total tourniquet time for the procedure was 62 minutes at 250 mmHg. Final components were Loki Persona size 6, cruciate-retaining femoral component size D tibial tray, a 10 mm medial congruent cruciate-retaining polyethylene insert, and a 29 x 8 mm patella. I then proceeded with closure. Again, the knee was thoroughly irrigated. The quadriceps tendon and the medial retinacular reapproximated with #2 Ethibond suture. The extensor mechanism was then closed with a running #2 Quill suture. Subcutaneous tissues were closed with 2-0 Vicryl interrupted suture. The skin was closed with a running 3-0 Quill suture. Dermabond was applied to the incision. Sterile compressive dressing was then applied. All sponge and needle counts were deemed correct prior to closure. The patient tolerated the procedure without apparent complication. She was transferred to recovery room in stable condition. MMODL / IJN: [id number] /
[2020-10-30] MEDS ORDERED: WARFARIN 5 MG TAB PO ONE (18:00)
--- NOTE | 2020-10-30 18:27 | P.ANPRN ---
Procedure Note - Anesthesia - Nerve Block Performed Left Adductor Canal Infusion Time Out Performed: Yes Date of Procedure: 10/29/20 Location of Patient: PreOp Indication: Acute Post-Operative Pain, Requested by Surgeon Sedation Type: Sedate with meaningful contact maintained Preparation: Sterile Prep, Sterile Dressing Position: Supine Catheter: Indwelling Needle Types: Pajunk Needle Gauge: 21 Ultrasound used to visualize needle placement: Yes Ultrasound used to observe medication spread: Yes Blood Aspirated: No Pain Paresthesia on Injection Noted: No Resistance on Injection: Normal Image Stored and Saved: Yes Events: Uneventful and Well Tolerated (ropi .5% 20cc plus dexamethasone 4mg)
[2020-10-30] MEDS: IPRATROPIUM-ALBUTEROL 3 ML NEB INHALATION SCH (19:47)
[2020-10-30] MEDS: DULoxetine HCL 30 MG CAPSULE.DR PO SCH (20:43)
[2020-10-30] MEDS: PREGABALIN 75 MG CAP PO SCH (20:43)
[2020-10-30] MEDS: PANTOPRAZOLE 40 MG TABLET PO SCH (20:43)
[2020-10-30] MEDS: SENNOSIDES-DOCUSATE SODIUM 1 EACH TAB PO SCH (20:44)
[2020-10-30] MEDS ORDERED: VANCOMYCIN 1,250 MG in SODIUM CHLORIDE 0.9% 250 ML IVPB ONE (21:00)
[2020-10-31] MEDS: LACTATED RINGERS 1,000 ML IV SCH ×2 (05:34→16:28)
[2020-10-31 06:54] LABS: Basophils % (A) 0 %; Eosinophils # (A) 0.1 k/uL (0-0.7); Eosinophils % (A) 1 %; HCT 26.3 % (34.0-46.0); Lymphocytes # (A) 1.4 k/uL (1.0-4.8); Lymphocytes % (A) 17 %; MCH 30.5 pg (25.0-35.0); MCHC 33.2 g/dL (31.0-37.0); MCV 91.9 fL (80.0-100.0); Mean Platelet Volume 7.2; Monocytes # (A) 0.7 k/uL (0-1.0); Monocytes % (A) 9 %; Neutrophils # (A) 5.7 k/uL (1.3-7.7); Neutrophils % (A) 71 %; Platelet Count 202 k/uL (150-450); RBC 2.86 m/uL (3.80-5.40); RDW 14.5 % (11.5-15.5)
[2020-10-31 07:22] LABS: HGB 8.7 gm/dL (11.4-16.0)
[2020-10-31] MEDS: MULTIVITAMINS, THERA 1 EACH TAB PO SCH (07:26)
[2020-10-31] MEDS: IPRATROPIUM-ALBUTEROL 3 ML NEB INHALATION SCH ×2 (07:26→18:57)
[2020-10-31] MEDS: PANTOPRAZOLE 40 MG TABLET PO SCH ×2 (07:26→20:17)
[2020-10-31] MEDS: HYDROcodone/APAP 10-325MG 1 EACH TAB PO PRN ×3 (07:26→23:06)
[2020-10-31] MEDS: DULoxetine HCL 30 MG CAPSULE.DR PO SCH ×2 (07:27→20:17)
[2020-10-31] MEDS: PREGABALIN 75 MG CAP PO SCH ×2 (07:27→20:17)
--- NOTE | 2020-10-31 07:40 | P.PN ---
Progress Note - Text 10/31/20 711am 75-year-old female status post total knee replacement by Dr. Dumont. Patient has an On-Q pump for postop pain control with the solution running at 8 mL an hour with a VAS of 9 even though she is sitting in her bed eating breakfast and looks very comfortable her pain is located behind the knee and also in the front. Plan to continue the On-Q pump solution at this time with by mouth pain medication
[2020-10-31 09:33] LABS: INR 0.99 (0.90-1.11); Prothrombin Time 10.7 sec (9.9-11.9)
[2020-10-31] MEDS: oxyCODONE ER 10 MG TAB.ER.12H PO SCH ×2 (12:12→20:17)
--- NOTE | 2020-10-31 12:24 | P.PN ---
Subjective Progress Note Date: 10/31/20 Principal diagnosis: Knee pain Patient is doing well today. She has been doing the exercises taught to her by physical therapy. She denied having fevers, chest pain or shortness of breath. Objective - Vital Signs Vital signs: Vital Signs Temp 98.5 F 10/31/20 07:48 Pulse 77 10/31/20 07:48 Resp 18 10/31/20 07:48 BP 151/66 10/31/20 07:48 Pulse Ox 96 10/31/20 07:48 Intake & Output 10/30/20 10/31/20 10/31/20 18:59 06:59 18:59 Intake Total 1401 200 Output Total 100 Balance 1301 200 Weight 77.6 kg Intake: IV 1401 Oral 200 Output: Estimated Blood Loss 100 Other: # Voids 3 - Exam Constitutional: No acute distress, conversant, pleasant Eyes:Anicteric sclerae, moist conjunctiva, no lid-lag, PERRLA, ENMT: Oropharynx clear, no erythema, exudates Neck: Supple, FROM, no masses, or JVD, No carotid bruits, No thyromegaly Lungs: Clear to auscultation, Clear to percussion, Normal respiratory effort, no accessory muscle use Cardiovascular: Heart regular in rate and rhythm, No murmurs, gallops, or rubs, No peripheral edema Abdominal: Soft, Nontender, no guarding, rebound or rigidity, Normoactive bowel sounds, No hepatomegaly, No splenomegaly, No palpable mass Skin: Normal temperature, tone, texture, turgor, no induration, No subcutaneous nodules, No rash, lesions, No ulcers Extremities: Dressings over the left knee. No digital cyanosis, No clubbing, Pedal pulses intact and symmetrical, Radial pulses intact and symmetrical, No calf tenderness Psychiatric: Alert and oriented to person, place and time, appropriate affect, intact judgement Neuro: Muscles Strength 5/5 in all 4 extremities, Sensation to light touch grossly present throughout, Cranial nerves II-XII grossly intact, no focal sensory deficits - Labs CBC & Chem 7: 10/31/20 06:15 Labs: Abnormal Lab Results - Last 24 Hours (Table) 10/30/20 10/31/20 Range/Units 16:08 06:15 RBC 2.86 L (3.80-5.40) m/uL Hgb 8.7 L D (11.4-16.0) gm/dL Hct 26.3 L (34.0-46.0) % POC Glucose (mg/dL) 121 H (75-99) mg/dL Assessment and Plan Plan: Postoperative day #1 left knee total arthroplasty Pain management Physical therapy Per your surgical management Atrial Fibrillation, Resume Coumadin Acute on chronic anemia secondary to blood loss Monitor hemoglobin No need for transfusion now. Asthma, Duonebs twice daily and every 6 hours when necessary. Chronic Fibromyalgia, GERD/Reflux, Hypertension, Osteoarthritis (OA), Rheumatoid Arthritis (RA) All stable resume meds Anticipated discharge: 1-2 days Disposition: Likely home
--- NOTE | 2020-10-31 12:51 | XR ---
EXAMINATION TYPE: XR ankle complete LT DATE OF EXAM: 10/31/2020 COMPARISON: None HISTORY: Pain TECHNIQUE: Three-view left ankle FINDINGS: Ankle mortise is intact. No acute fracture or dislocation is evident. Soft tissues appear n ormal. Plantar calcaneal heel spur is present. Follow-up study should be performed 7-10 days from acute trauma for continued pain IMPRESSION: 1. No acute osseous abnormality
--- NOTE | 2020-10-31 13:02 | P.PN ---
Subjective Progress Note Date: 10/31/20 Principal diagnosis: left TKA Patient is seen at bedside this morning. She is postop day #1 from left total knee arthroplasty. He has pain at the surgical site as expecte. She also has some left ankle pain. She denies any other new complaints. She denies numbness, tingling or calf pain. Review of systems is negative for fever, chills, chest pain, shortness of breath or other Objective - Vital Signs Vital signs: Vital Signs Temp 98.5 F 10/31/20 07:48 Pulse 77 10/31/20 07:48 Resp 18 10/31/20 07:48 BP 151/66 10/31/20 07:48 Pulse Ox 96 10/31/20 07:48 Intake & Output 10/30/20 10/31/20 10/31/20 18:59 06:59 18:59 Intake Total 1401 200 Output Total 100 Balance 1301 200 Weight 77.6 kg Intake: IV 1401 Oral 200 Output: Estimated Blood Loss 100 Other: # Voids 3 - Exam Inspection reveals a benign surgical wound. There is no active bleeding or drainage. Neurovascular status is intact throughout the lower extremity with motor and sensation fully intact. Calf is soft and nontender. 2+ dorsalis pedis pulse and less than 2 second cap refill is present. She is mildy tender at the lateral malleolus. There is no deformity or echymoses - Constitutional General appearance: Present: no acute distress - Labs CBC & Chem 7: 10/31/20 06:15 Labs: Abnormal Lab Results - Last 24 Hours (Table) 10/30/20 10/31/20 Range/Units 16:08 06:15 RBC 2.86 L (3.80-5.40) m/uL Hgb 8.7 L D (11.4-16.0) gm/dL Hct 26.3 L (34.0-46.0) % POC Glucose (mg/dL) 121 H (75-99) mg/dL Assessment and Plan (1) Status post total left knee replacement Narrative/Plan: She will continue with routine postop orthopedic protocol including pain management, wound care, PT, DVT prophylaxis and medical management. Will obtain a xray of left ankle . Expect that she will transfer to home tomorrow Current Visit: Yes Status: Acute Priority: Medium Code(s): Z96.652 - PRESENCE OF LEFT ARTIFICIAL KNEE JOINT SNOMED Code(s): 6868463176345 Time with Patient: Less than 30
[2020-10-31] MEDS ORDERED: WARFARIN 5 MG TAB PO ONE (18:00)
[2020-10-31] MEDS: SENNOSIDES-DOCUSATE SODIUM 1 EACH TAB PO SCH (20:18)
[2020-11-01] MEDS: LACTATED RINGERS 1,000 ML IV SCH ×4 (00:23→20:34)
[2020-11-01] MEDS: MULTIVITAMINS, THERA 1 EACH TAB PO SCH (07:29)
[2020-11-01] MEDS: HYDROcodone/APAP 10-325MG 1 EACH TAB PO PRN ×2 (07:29→17:18)
[2020-11-01] MEDS: PREGABALIN 75 MG CAP PO SCH ×2 (07:30→20:33)
[2020-11-01] MEDS: DULoxetine HCL 30 MG CAPSULE.DR PO SCH ×2 (07:30→20:33)
[2020-11-01] MEDS: PANTOPRAZOLE 40 MG TABLET PO SCH ×2 (07:30→20:33)
[2020-11-01] MEDS: IPRATROPIUM-ALBUTEROL 3 ML NEB INHALATION SCH ×2 (08:22→20:58)
[2020-11-01 09:05] LABS: INR 1.05 (0.90-1.11); Prothrombin Time 11.3 sec (9.9-11.9)
[2020-11-01] MEDS: oxyCODONE ER 10 MG TAB.ER.12H PO SCH ×2 (09:19→20:33)
--- NOTE | 2020-11-01 09:24 | P.PN ---
Subjective Progress Note Date: 11/01/20 Principal diagnosis: Knee pain Patient was having so much pain today and her left lower extremity including the left knee and the left ankle. She is not able to lift her left leg up off the bed. He was just given some [place]. She has not had any bowel movement since admission. She states that she normally goes every 2-3 days. Objective - Vital Signs Vital signs: Vital Signs Temp 98.1 F 11/01/20 08:27 Pulse 68 11/01/20 08:33 Resp 18 11/01/20 08:27 BP 136/69 11/01/20 08:27 Pulse Ox 95 11/01/20 08:27 Intake & Output 10/31/20 11/01/20 11/01/20 18:59 06:59 18:59 Other: Voiding Method Bedside Commode # Voids 3 3 - Exam Constitutional: No acute distress, conversant, pleasant Eyes:Anicteric sclerae, moist conjunctiva, no lid-lag, PERRLA, ENMT: Oropharynx clear, no erythema, exudates Neck: Supple, FROM, no masses, or JVD, No carotid bruits, No thyromegaly Lungs: Clear to auscultation, Clear to percussion, Normal respiratory effort, no accessory muscle use Cardiovascular: Heart regular in rate and rhythm, No murmurs, gallops, or rubs, No peripheral edema Abdominal: Soft, Nontender, no guarding, rebound or rigidity, Normoactive bowel sounds, No hepatomegaly, No splenomegaly, No palpable mass Skin: Normal temperature, tone, texture, turgor, no induration, No subcutaneous nodules, No rash, lesions, No ulcers Extremities: Dressings over the left knee. No digital cyanosis, No clubbing, Pedal pulses intact and symmetrical, Radial pulses intact and symmetrical, No calf tenderness Psychiatric: Alert and oriented to person, place and time, appropriate affect, intact judgement Neuro: Muscles Strength 5/5 in all 4 extremities, Sensation to light touch grossly present throughout, Cranial nerves II-XII grossly intact, no focal sensory deficits - Labs CBC & Chem 7: 10/31/20 06:15 Assessment and Plan Plan: Postoperative day #2 left knee total arthroplasty Pain management Physical therapy Per your surgical management Ankle X-ray reviewed, Atrial Fibrillation, Resume Coumadin Constipation Add laxative Acute on chronic anemia secondary to blood loss Monitor hemoglobin No need for transfusion now. Asthma, Duonebs twice daily and every 6 hours when necessary. Chronic Fibromyalgia, GERD/Reflux, Hypertension, Osteoarthritis (OA), Rheumatoid Arthritis (RA) All stable resume meds Anticipated discharge: 1-2 days Disposition: Likely home
[2020-11-01] MEDS: polyethylene glycoL 3350 17 GM POWD.PACK PO SCH (09:45)
[2020-11-01] MEDS: SENNOSIDES-DOCUSATE SODIUM 1 EACH TAB PO SCH ×2 (09:45→20:34)
--- NOTE | 2020-11-01 11:06 | P.PN ---
Progress Note - Text Progress Note Date: 11/01/20 Orthopedics: History of present illness: Patient is a very pleasant 75-year-old female who is seen and examined at the bedside for follow up evaluation for her left knee. She is status post left knee total arthroplasty performed on 10/30/[address] Mo Dumont. Postoperatively she continues to have some pain at the surgical site at her left knee. She has been experiencing some pain at her ankle most significant inferior to the lateral malleolus. She denies specific injury. X-rays of the left ankle were taken yesterday without any acute findings. There are no findings of fracture of the left ankle. She has been able to ambulate better t stacy as compared to yesterday. She is eating and voiding without difficulty. He does admit to continued difficulty with pain control. She is currently receiving [place] 10 mg/25 mg 2 tabs every 6 hours as needed for pain and oxycodone 10 mg every 12 hours as needed for pain. Patient does not feel her pain is fullness controlled that she be ready for discharge home today. She has been utilizing a an On-Q pain pump. Patient's other medical diagnoses include heart disease, lung disease, hypertension, rheumatoid arthritis, history of atrial fibrillation, fibromyalgia, and history of melanoma carcinoma Physical Exam Total Knee Arthroplasty: Status post surgical day number 2 Patient is awake, alert, and oriented 3 Vital signs stable Good chest excursion with deep inspiration and expiration No signs or symptoms of DVT; no calf pain Dressing is clean, dry, and intact; no erythema, purulence, or signs of infection Dressing is removed and reapplied during physical examination; surgical site is dry and intact with no active drainage Patient has full foot and ankle motion without difficulty bilateral lower extremities No evidence of swelling, erythema, bruising, or obvious sign of infection at the left ankle Some pain with palpation along the inferior left lateral malleolus Dorsiflexion, plantar flexion, and extensor hallucis longus positive sustained on the left Neurovascular status left lower extremity intact On-Q pain pump intact at the left thigh Pertinent studies: X-rays of the left ankle taken on 10/31/2020: No evidence of fracture dislocation within the left ankle; ankle mortise is intact; no acute process found Assessment: Status post left total knee arthroplasty performed on 10/30/2020 Left knee pain Left ankle pain with no evidence of acute process or fracture History of heart disease History of lung disease Hypertension Rheumatoid arthritis History of atrial fibrillation Fibromyalgia History of melanoma carcinoma Plan: 1. She is status post left total knee arthroplasty performed on 10/30/2020. She also has been experiencing some left ankle pain postoperatively. X-ray imaging does not show evidence of fracture dislocation at the left ankle. She has been able to ambulate better today as compared to yesterday. We discussed she may continue to weight-bear as tolerated on the lower extremity; patient may work with physical therapy to increase mobility and ambulation 2. Continue pain control with [place] 10 mg/25 mg and oxycodone 10 mg as prescri bed as needed for pain control; patient will be discharged home with [place] 10 mg/325 mg 1 tablet every 4 hours as needed for pain 3. Medicine to continue following the patient for his other medical diagnoses 4. Patient to continue with anticoagulation therapy with Coumadin scale per pharmacy 5. We'll continue to follow the patient; if the patient improves throughout the day and her pain is better controlled, we'll plan for discharge home tomorrow, 11/02/2019 6. Patient can follow-up with Dr. Mo Dumont at [facility] in 10 days following discharge
[2020-11-01] MEDS ORDERED: WARFARIN 7.5 MG TAB PO ONE (18:00)
[2020-11-02] MEDS: HYDROcodone/APAP 10-325MG 1 EACH TAB PO PRN ×2 (03:45→11:48)
[2020-11-02] MEDS: LACTATED RINGERS 1,000 ML IV SCH (06:25)
[2020-11-02 06:28] LABS: Basophils % (A) 1 %; Eosinophils # (A) 0.4 k/uL (0-0.7); Eosinophils % (A) 5 %; HCT 26.9 % (34.0-46.0); HGB 8.7 gm/dL (11.4-16.0); Lymphocytes # (A) 1.1 k/uL (1.0-4.8); Lymphocytes % (A) 14 %; MCH 30.1 pg (25.0-35.0); MCHC 32.3 g/dL (31.0-37.0); Mean Platelet Volume 7.4; Monocytes # (A) 0.8 k/uL (0-1.0); Monocytes % (A) 11 %; Neutrophils % (A) 67 %; Platelet Count 242 k/uL (150-450); RDW 14.8 % (11.5-15.5); WBC 7.4 k/uL (3.8-10.6)
[2020-11-02] MEDS: IPRATROPIUM-ALBUTEROL 3 ML NEB INHALATION SCH (07:56)
[2020-11-02 08:34] VITALS: BP 124/53; PULSE 79; RESP 18; TEMP 99
[2020-11-02] MEDS: oxyCODONE ER 10 MG TAB.ER.12H PO SCH (09:13)
[2020-11-02] MEDS: PREGABALIN 75 MG CAP PO SCH (09:13)
[2020-11-02] MEDS: PANTOPRAZOLE 40 MG TABLET PO SCH (09:15)
[2020-11-02] MEDS: polyethylene glycoL 3350 17 GM POWD.PACK PO SCH (09:15)
[2020-11-02] MEDS: SENNOSIDES-DOCUSATE SODIUM 1 EACH TAB PO SCH (09:15)
[2020-11-02] MEDS: DULoxetine HCL 30 MG CAPSULE.DR PO SCH (09:15)
[2020-11-02 10:20] LABS: INR 1.15 (0.90-1.11); Prothrombin Time 12.3 sec (9.9-11.9)
[2020-11-02] MEDS: MULTIVITAMINS, THERA 1 EACH TAB PO SCH (11:47)
--- NOTE | 2020-11-02 12:14 | P.DS ---
Providers Date of admission: 10/31/20 15:18 Expected date of discharge: 11/02/20 Attending physician: Mo Dumont Consults: 10/30/20 09:10 Consult Physician Routine Consulting Provider: Suzette Simeon Consult Reason/Comments: post op medical management Do you want consulting provider notified?: Yes Primary care physician: Lucie Tesfaye - Discharge Diagnosis(es) (1) Heart disease Current Visit: Yes Status: Acute (2) Lung disease Current Visit: Yes Status: Acute (3) Hypertension Current Visit: Yes Status: Acute (4) History of rheumatoid arthritis Current Visit: Yes Status: Acute (5) Fibromyalgia Current Visit: Yes Status: Acute (6) Left knee pain Current Visit: Yes Status: Acute (7) Left ankle pain Current Visit: Yes Status: Acute (8) Osteoarthritis of left knee Current Visit: Yes Status: Acute (9) Status post total left knee replacement Current Visit: Yes Status: Acute Priority: Medium (10) A-fib Current Visit: No Status: Acute Hospital Course: This is a pleasant 75-year-old female who presented with osteoarthritis of the left knee who failed outpatient conservative therapy. She was admitted for a left total knee arthroplasty which was performed on 10/30/[address] Mo Dumont. Initially the patient had some difficulty with pain control postoperatively. She feels her pain has improved today as compared to yesterday. She has been able to ambulate better. She does continue to have some pain and swelling of the left knee which is been controlled medication and ice. She continues to utilize an On-Q pain pump. She continues to have some pain at her left ankle as well without injury. She has been able to ambulate better on the left ankle today as compared to yesterday. She does feel with her improvement she is ready for discharge home today. The patient tolerated the procedure well overall. Condition on day of discharge stable. Patient will be discharged home. Patient was cleared preoperatively for surgery by Dr. Tesfaye. Patient currently denies any nausea, vomiting, fever, or chills. Patient is eating and voiding freely without difficulty. Patient may shower without a dressing intact his incision site remains dry over the next 72 hours. Patient may weight-bear as tolerated on the left lower extremity. She may use a walker to aid in ambulation as needed. Medications as prescribed. She may apply ice for comfort support over the left knee as needed. She is encouraged to keep the left lower extremity elevated when not ambulating. Patient will plan to follow with Dr. Mo Dumont at [facility] in approximately 10 days for further evaluation. MAPS was previously reviewed at the time the prescription was sent to the pharmacy. An "Opiod Start Talking" Form has been signed and placed in the patient's chart. A prescription has been written for [place] 10 mg/325 mg 1 tab every 4 hours as needed for pain, dispense #42. Patient's other medical diagnoses include heart disease, lung disease, hypertension, rheumatoid arthritis, history of atrial fibrillation, fibromyalgia, and history of melanoma carcinoma. Patient will resume his he prescribed Coumadin 5 mg in the outpatient setting for anticoagulation for her known atrial fibrillation and for postoperative anticoagulation. Physical Exam on day of discharge: Status post surgical day number 3 Patient is awake, alert, and oriented 3 Vital signs stable Good chest excursion with deep inspiration and expiration No signs or symptoms of DVT; no calf pain Dressing is clean, dry, and intact; no erythema, purulence, or signs of infection Dressing is removed and reapplied during physical examination; surgical site is dry and intact with no active drainage Patient has full foot and ankle motion without difficulty bilateral lower extremities No evidence of swelling, erythema, bruising, or obvious sign of infection at the left ankle Mild pain with palpation along the inferior left lateral malleolus Dorsiflexion, plantar flexion, and extensor hallucis longus positive sustained on the left Neurovascular status left lower extremity intact On-Q pain pump intact at the left thigh Procedures: Left total knee arthroplasty Patient Condition at Discharge: Stable Plan - Discharge Summary Discharge Rx Participant: Yes New Discharge Prescriptions: New HYDROcodone/APAP 10-325MG [[place] 10-325] 1 tab PO Q4HR PRN #42 tab PRN Reason: Pain No Action Pantoprazole Sodium [Protonix] 40 mg PO BID Estradiol [Estrace] 2 mg PO DAILY Albuterol Nebulized [Ventolin Nebulized] 2.5 mg INHALATION QID PRN PRN Reason: Dyspnea Ipratropium Nebulized [Atrovent Nebulized 0.2 MG/ML] 0.5 mg INHALATION QID PRN PRN Reason: Dyspnea DULoxetine HCL [Cymbalta] 30 mg PO BID Albuterol Sulfate [Ventolin HFA] 1 - 2 puff INHALATION RT-Q6H PRN PRN Reason: Shortness Of Breath Lysine 500 mg PO DAILY #0 Glucosam/Chond/Hyalu/Cf Borate [Move Free Joint Health Tablet] 1 tab PO DAILY Acetaminophen [Tylenol Arthritis] 650 mg PO DAILY PRN PRN Reason: arthritis pain Nadolol [Corgard] 40 mg PO DAILY Diclofenac Sodium Gel [Voltaren Gel] 4 gm TOPICAL QID PRN PRN Reason: left knee pain HYDROcodone/APAP 7.5-325MG [[place] 7.5-325] 1 each PO Q4H PRN #21 tab PRN Reason: Pain Pregabalin [Lyrica] 75 mg PO BID #14 cap Warfarin [Coumadin] 5 mg PO DAILY Discharge Medication List Estradiol [Estrace] 2 mg PO DAILY 05/14/14 [History] Pantoprazole Sodium [Protonix] 40 mg PO BID 05/14/14 [History] Albuterol Nebulized [Ventolin Nebulized] 2.5 mg INHALATION QID PRN 08/16/18 [History] Ipratropium Nebulized [Atrovent Nebulized 0.2 MG/ML] 0.5 mg INHALATION QID PRN 11/13/18 [History] DULoxetine HCL [Cymbalta] 30 mg PO BID 10/06/19 [History] Albuterol Sulfate [Ventolin HFA] 1 - 2 puff INHALATION RT-Q6H PRN 10/29/19 [History] Acetaminophen [Tylenol Arthritis] 650 mg PO DAILY PRN 05/02/20 [History] Diclofenac Sodium Gel [Voltaren Gel] 4 gm TOPICAL QID PRN 05/02/20 [History] Glucosam/Chond/Hyalu/Cf Borate [Move Free Joint Health Tablet] 1 tab PO DAILY 05/02/20 [History] Lysine 500 mg PO DAILY #0 05/02/20 [History] Nadolol [Corgard] 40 mg PO DAILY 05/02/20 [History] HYDROcodone/APAP 7.5-325MG [[place] 7.5-325] 1 each PO Q4H PRN #21 tab 05/24/20 [Rx] Pregabalin [Lyrica] 75 mg PO BID #14 cap 05/24/20 [Rx] Warfarin [Coumadin] 5 mg PO DAILY 10/22/20 [History] HYDROcodone/APAP 10-325MG [[place] 10-325] 1 tab PO Q4HR PRN #42 tab 10/31/20 [Rx] Follow up Appointment(s)/Referral(s): Mo Dumont MD [STAFF PHYSICIAN] - 10 Days [facility] Visiting Nurse, [NON-STAFF] - Activity/Diet/Wound Care/Special Instructions: Keep wound clean and dry Take meds as directed Follow-up with Dr. Dumont in office Weight bear as tolerated May shower in 3 days if no bleeding Discharge Disposition: HOME SELF-CARE
[2020-11-02] MEDS ORDERED: WARFARIN 7.5 MG TAB PO ONE (18:00)
== END 2020-11-02 14:40 | disposition home or self-care (01) ==
LOC: OR 07:49 → 4SSUR 11:28 → OR 10-31 15:18
PROVIDERS: ADMIT Orthopaedic Surgery Sports Medicine; ATTEND Orthopaedic Surgery Sports Medicine
DX: M17.12 Unilateral primary osteoarthritis, left knee (principal); Z85.820 Personal history of malignant melanoma of skin; J45.909 Unspecified asthma, uncomplicated; M79.7 Fibromyalgia; K21.9 Gastro-esophageal reflux disease without esophagitis; I10 Essential (primary) hypertension; I25.2 Old myocardial infarction; M06.9 Rheumatoid arthritis, unspecified; I48.20 Chronic atrial fibrillation, unspecified; M25.572 Pain in left ankle and joints of left foot; D50.0 Iron deficiency anemia secondary to blood loss (chronic); K59.00 Constipation, unspecified; Z87.11 Personal history of peptic ulcer disease; Z87.442 Personal history of urinary calculi; G43.909 Migraine, unspecified, not intractable, without status migrainosus; M54.9 Dorsalgia, unspecified; I25.10 Atherosclerotic heart disease of native coronary artery without angina pectoris; Z90.710 Acquired absence of both cervix and uterus; Z87.19 Personal history of other diseases of the digestive system; Z90.49 Acquired absence of other specified parts of digestive tract; Z96.641 Presence of right artificial hip joint; Z96.653 Presence of artificial knee joint, bilateral; Z79.890 Hormone replacement therapy; Z79.899 Other long term (current) drug therapy; Z79.01 Long term (current) use of anticoagulants; Z79.891 Long term (current) use of opiate analgesic; Z88.0 Allergy status to penicillin; Z88.1 Allergy status to other antibiotic agents; Z88.2 Allergy status to sulfonamides; Z88.8 Allergy status to other drugs, medicaments and biological substances; Z88.6 Allergy status to analgesic agent; Z88.5 Allergy status to narcotic agent; Z82.49 Family history of ischemic heart disease and other diseases of the circulatory system; Z80.9 Family history of malignant neoplasm, unspecified
CPT/HCPCS: 27447; 94640 ×6; 97116 ×2; 97110 ×3; 97161; 64448; 76942; 88305; 85025 ×2; 85610 ×4; 88311; 73560; 73610; G0378 ×3; C1776; C1713; J2250; J0171; J3370; J1100; J2405; J3010; J1885 ×2; J1170 ×2; J2795 ×2; J0330; J2704; J0735

== ENCOUNTER → 2020-11-04 | Outpatient (CLI) | payer MEDICARE, BC ==
--- NOTE | 2020-11-04 15:36 | US ---
EXAMINATION TYPE: US venous doppler duplex LE LT DATE OF EXAM: 11/04/2020 3:17 PM COMPARISON: NONE CLINICAL HISTORY: 75-year-old female I80.9 PHLEBITIS AND THROMBOPHLEBITIS. LEFT knee replacement 5 da ys ago, edema and pain left leg. Patient on blood thinner SIDE PERFORMED: left TECHNIQUE: The lower extremity deep venous system is examined utilizing real time linear array sonog margo with graded compression, doppler sonography and color-flow sonography. FINDINGS: VESSELS IMAGED: Common Femoral Vein Deep Femoral Vein Greater Saphenous Vein * Femoral Vein Popliteal Vein Small Saphenous Vein * Proximal Calf Veins (* superficial vessels) Left Leg: Can Cleaner notes: No evidence of DVT as visualized. Technical limitations due to large am ount of edema. Unable to visualize lower femoral vein for compression IMPRESSION: Some limitations due to generalized soft tissue swelling. Limited visualization of the lower femoral vein. Otherwise, no evidence for DVT in the left lower extremity imaged from the groin to the upper c senior living.
== END | disposition home or self-care (01) ==
LOC: RADUSWWP 14:29
PROVIDERS: ATTEND Orthopaedic Surgery Sports Medicine
DX: M79.89 Other specified soft tissue disorders (principal); Z98.890 Other specified postprocedural states

== ENCOUNTER 2020-11-07 13:01 | Observation (INO) | payer MEDICARE, BC ==
[2020-11-07] MEDS ORDERED: SODIUM CHLORIDE 0.9% 500 ML 500 ML IV STA (13:25)
[2020-11-07 14:01] LABS: Basophils # (A) 0.1 k/uL (0-0.2); Basophils % (A) 1 %; Eosinophils # (A) 0.1 k/uL (0-0.7); Eosinophils % (A) 1 %; HGB 10.4 gm/dL (11.4-16.0); Lymphocytes # (A) 1.3 k/uL (1.0-4.8); Lymphocytes % (A) 19 %; MCH 30.1 pg (25.0-35.0); MCHC 33.5 g/dL (31.0-37.0); MCV 89.8 fL (80.0-100.0); Mean Platelet Volume 6.9; Monocytes # (A) 0.6 k/uL (0-1.0); Monocytes % (A) 9 %; Neutrophils # (A) 4.9 k/uL (1.3-7.7); Neutrophils % (A) 68 %; Platelet Count 384 k/uL (150-450); RBC 3.45 m/uL (3.80-5.40); RDW 14.5 % (11.5-15.5); WBC 7.1 k/uL (3.8-10.6)
[2020-11-07] MEDS ORDERED: ONDANSETRON 4 MG/2 ML VIAL IVP STA (14:02)
[2020-11-07 14:08] LABS: ALT 16 U/L (4-34); AST 24 U/L (14-36); African American GFR (CKD) >90 (>60 ml/min/1.73 sqM); Albumin 3.5 g/dL (3.5-5.0); Alkaline Phosphatase 78 U/L (38-126); Anion Gap 9 mmol/L; Blood Urea Nitrogen 9 mg/dL (7-17); Calcium 8.9 mg/dL (8.4-10.2); Carbon Dioxide 21 mmol/L (22-30); Chloride 107 mmol/L (98-107); Glucose 83 mg/dL (74-99); Magnesium 1.7 mg/dL (1.6-2.3); Non-African American GFR(CKD) >90 (>60 ml/min/1.73 sqM); Potassium 3.7 mmol/L (3.5-5.1); Sodium 137 mmol/L (137-145); Total Bilirubin 0.8 mg/dL (0.2-1.3); Total Protein 6.9 g/dL (6.3-8.2)
[2020-11-07 14:11] LABS: INR 1.3 (<1.2); Prothrombin Time 13.7 sec (9.0-12.0)
--- NOTE | 2020-11-07 14:25 | XR ---
EXAMINATION TYPE: XR chest 2V DATE OF EXAM: 11/07/2020 COMPARISON: Chest x-ray May 02, 2020 HISTORY: Weakness. Recent knee surgery 2 weeks ago. TECHNIQUE: Frontal and lateral views of the chest are obtained. FINDINGS: There is chronic parenchymal change without suspicious focal air space opacity, pleural effusion, or pneumothorax seen. The cardiac silhouette size is stab le and mildly enlarged. Surgical change in the cervical spine is redemonstrated. IMPRESSION: Chronic changes and mild cardiomegaly without acute pulmonary process. No significant ch corrine from prior.
[2020-11-07 15:05] LABS: Amorphous Sediment,Urine Rare /hpf; Appearance,Urine Cloudy (Clear); Bacteria,Urine Occasional /hpf; Bilirubin,Urine Negative (Negative); Blood,Urine Negative (Negative); Color,Urine Light Yellow; Glucose,Urine (UA) Negative (Negative); Ketones,Urine 2+ (Negative); Leukocyte Esterase,Urine Moderate (Negative); Mucus,Urine Rare /hpf; Nitrite,Urine Negative (Negative); Protein,Urine Negative (Negative); RBC,Urine 3 /hpf (0-5); Specific Gravity,Urine 1.011 (1.001-1.035); Squamous Epithelial Cell,Urine 27 /hpf (0-4); Urobilinogen,Urine <2.0 mg/dL (<2.0); WBC,Urine 15 /hpf (0-5)
--- NOTE | 2020-11-07 15:11 | US ---
EXAMINATION TYPE: US venous doppler duplex LE LT DATE OF EXAM: 11/07/2020 2:56 PM COMPARISON: US 11/04/2020 CLINICAL HISTORY: left leg pain. Left knee replacement 7 days ago, patient taking blood thinners SIDE PERFORMED: Left TECHNIQUE: The lower extremity deep venous system is examined utilizing real time linear array sonog margo with graded compression, doppler sonography and color-flow sonography. VESSELS IMAGED: Common Femoral Vein Deep Femoral Vein Greater Saphenous Vein * Femoral Vein Popliteal Vein Small Saphenous Vein * Proximal Calf Veins (* superficial vessels) Left Leg: Negative for DVT Grayscale, color doppler, spectral doppler imaging performed of the deep veins of the left lower extr emity. There is normal flow, compressibility, vascular waveforms. IMPRESSION: No Ultrasound evidence for acute DVT in the left lower extremity.
[2020-11-07] MEDS ORDERED: traMADol 50 MG TAB PO PRN (16:16)
[2020-11-07] MEDS ORDERED: MORPHINE SULFATE 4 MG/ML SYRINGE IV PRN (16:16)
[2020-11-07] MEDS ORDERED: NALOXONE 0.4 MG/ML 1 ML VIAL IV PRN (16:16)
[2020-11-07] MEDS ORDERED: FUROSEMIDE 10 MG/ML 4 ML VIAL IV STA (16:16)
[2020-11-07] MEDS ORDERED: ACETAMINOPHEN TAB 325 MG TAB PO PRN (16:16)
[2020-11-07] MEDS ORDERED: MAG HYDROX/AL HYDROX/SIMETH 30 ML CUP PO PRN (16:16)
[2020-11-07] MEDS ORDERED: TEMAZEPAM 15 MG CAP PO PRN (16:16)
[2020-11-07] MEDS ORDERED: ONDANSETRON 4 MG/2 ML VIAL IVP PRN (16:16)
--- NOTE | 2020-11-07 16:16 | ED ---
Weakness HPI - General Chief complaint: Weakness Stated complaint: Weakness Time Seen by Provider: 11/07/20 13:09 Source: patient Mode of arrival: ambulatory Limitations: no limitations - History of Present Illness Initial comments: Patient complains of weakness. She has shortness of breath. She has no chest pain or pressure. She complains of some blood in the stool yesterday. She has no belly pain currently. She has no headache. She has no lightheadedness. She has no dizziness. She has no nausea or vomiting. She has swelling in her legs. The left is worse than the right. She had a recent knee surgery. She has had no sick contacts that she is aware of. She has taken no medicine for her symptoms. She wasn't doing anything when the symptoms began. - Related Data Home Medications Medication Instructions Recorded Confirmed Estradiol [Estrace] 2 mg PO DAILY 05/14/14 11/07/20 Pantoprazole Sodium [Protonix] 40 mg PO BID 05/14/14 11/07/20 Albuterol Nebulized [Ventolin 2.5 mg INHALATION RT-QID PRN 08/16/18 11/07/20 Nebulized] Ipratropium Nebulized [Atrovent 0.5 mg INHALATION RT-QID PRN 11/13/18 11/07/20 Nebulized 0.2 MG/ML] DULoxetine HCL [Cymbalta] 60 mg PO DAILY 10/06/19 11/07/20 Albuterol Sulfate [Ventolin HFA] 1 - 2 puff INHALATION RT-Q6H PRN 10/29/19 11/07/20 Acetaminophen [Tylenol Arthritis] 650 mg PO DAILY PRN 05/02/20 11/07/20 Diclofenac Sodium Gel [Voltaren 4 gm TOPICAL QID PRN 05/02/20 11/07/20 Gel] Glucosam/Chond/Hyalu/Cf Borate 1 tab PO DAILY 05/02/20 11/07/20 [Move Free Joint Health Tablet] Lysine 500 mg PO DAILY #0 05/02/20 11/07/20 Nadolol [Corgard] 40 mg PO DAILY 05/02/20 11/07/20 Warfarin [Coumadin] 5 mg PO DAILY 10/22/20 11/07/20 Fluorouracil [Efudex] 1 applic TOPICAL BID 11/07/20 11/07/20 Hydroxychloroquine Sulfate 200 mg PO BID 11/07/20 11/07/20 [Plaquenil] Previous Rx's Medication Instructions Recorded Pregabalin [Lyrica] 75 mg PO BID #14 cap 05/24/20 HYDROcodone/APAP 10-325MG [[place] 1 tab PO Q4HR PRN #42 tab 10/31/20 10-325] Allergies Allergy/AdvReac Type Severity Reaction Status Date / Time cephalexin monohydrate Allergy HIVES Verified 11/07/20 15:26 [From Keflex] diphenhydramine HCl Allergy SWELLING Verified 11/07/20 15:26 [From Benadryl] OF TONGUE, SOB enoxaparin [From Lovenox] Allergy Rash/Hives Verified 11/07/20 15:26 Penicillins Allergy SWELLING, Verified 11/07/20 15:26 HIVES aspirin AdvReac EXCESS Verified 11/07/20 15:26 BLEEDING morphine AdvReac Vomiting Verified 11/07/20 15:26 sulfamethoxazole AdvReac Nausea & Verified 11/07/20 15:26 [From Bactrim] Vomiting trimethoprim [From Bactrim] AdvReac Nausea & Verified 11/07/20 15:26 Vomiting Review of Systems ROS Statement: Those systems with pertinent positive or pertinent negative responses have been documented in the HPI. ROS Other: All systems not noted in ROS Statement are negative. 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 Heart cath w/ no intervention Past Anesthesia/Blood Transfusion Reactions: Previous Problems w/ Anesthesia, Postoperative Nausea & Vomiting (PONV) Additional Past Anesthesia/Blood Transfusion Reaction / Comment(s): hard to wake up Past Psychological History: No Psychological Hx Reported Smoking Status: Never smoker Past Alcohol Use History: None Reported Past Drug Use History: None Reported - Past Family History Sister(s) Family Medical History: Cancer Brother(s) Family Medical History: Cancer Mother Family Medical History: Myocardial Infarction ([place]) Additional Family Medical History / Comment(s): Mother of a [place] at the age of 76yrs. Father History Unknown: Yes General Exam Limitations: no limitations General appearance: alert, in no apparent distress Head exam: Present: atraumatic, normocephalic, normal inspection Eye exam: Present: normal appearance, PERRL, EOMI. Absent: scleral icterus, conjunctival injection, periorbital swelling ENT exam: Present: normal exam, mucous membranes moist Neck exam: Present: normal inspection. Absent: tenderness, meningismus, lymphadenopathy Respiratory exam: Present: rales. Absent: normal lung sounds bilaterally, respiratory distress, wheezes, rhonchi, stridor Cardiovascular Exam: Present: regular rate, normal rhythm, normal heart sounds. Absent: systolic murmur, diastolic murmur, rubs, gallop, clicks GI/Abdominal exam: Present: soft, normal bowel sounds. Absent: distended, tenderness, guarding, rebound, rigid Extremities exam: Present: normal inspection, normal capillary refill, pedal edema, other (Left leg is more swollen the right). Absent: joint swelling Back exam: Present: normal inspection Neurological exam: Present: alert, oriented X3, CN II-XII intact Psychiatric exam: Present: normal affect, normal mood Skin exam: Present: warm, dry, intact, normal color. Absent: rash Course Vital Signs 11/07/20 11/07/20 11/07/20 13:14 15:00 16:07 Temperature 97.3 F L Pulse Rate 70 71 78 Respiratory 18 22 16 Rate Blood Pressure 176/68 170/70 172/76 O2 Sat by Pulse 98 98 98 Oximetry EKG Findings - EKG Comments: EKG Findings:: Twelve-lead EKG shows ventricular rate 70 bpm, normal CT i nterval, QRS complexes show a left bundle-branch block, no ST elevation or depression, interpreted by me as sinus rhythm. Medical Decision Making - Medical Decision Making Patient has significant weakness in the, said heart failure. I gave her some IV Lasix. I consult cardiology. Patient will be admitted overnight. - Lab Data Result diagrams: 11/07/20 13:48 11/07/20 13:48 Lab Results 11/07/20 11/07/20 11/07/20 Range/Units 13:48 13:48 13:48 WBC 7.1 (3.8-10.6) k/uL RBC 3.45 L (3.80-5.40) m/uL Hgb 10.4 L (11.4-16.0) gm/dL Hct 31.0 L (34.0-46.0) % MCV 89.8 (80.0-100.0) fL MCH 30.1 (25.0-35.0) pg MCHC 33.5 (31.0-37.0) g/dL RDW 14.5 (11.5-15.5) % Plt Count 384 (150-450) k/uL MPV 6.9 Neutrophils % 68 % Lymphocytes % 19 % Monocytes % 9 % Eosinophils % 1 % Basophils % 1 % Neutrophils # 4.9 (1.3-7.7) k/uL Lymphocytes # 1.3 (1.0-4.8) k/uL Monocytes # 0.6 (0-1.0) k/uL Eosinophils # 0.1 (0-0.7) k/uL Basophils # 0.1 (0-0.2) k/uL PT 13.7 H (9.0-12.0) sec INR 1.3 H (<1.2) APTT 28.0 (22.0-30.0) sec Sodium 137 (137-145) mmol/L Potassium 3.7 (3.5-5.1) mmol/L Chloride 107 (98-107) mmol/L Carbon Dioxide 21 L (22-30) mmol/L Anion Gap 9 mmol/L BUN 9 (7-17) mg/dL Creatinine 0.53 (0.52-1.04) mg/dL Est GFR (CKD-EPI)AfAm >90 (>60 ml/min/1.73 sqM) Est GFR (CKD-EPI)NonAf >90 (>60 ml/min/1.73 sqM) Glucose 83 (74-99) mg/dL Plasma Lactic Acid Chris (0.7-2.0) mmol/L Calcium 8.9 (8.4-10.2) mg/dL Magnesium 1.7 (1.6-2.3) mg/dL Total Bilirubin 0.8 (0.2-1.3) mg/dL AST 24 (14-36) U/L ALT 16 (4-34) U/L Alkaline Phosphatase 78 (38-126) U/L Troponin I (0.000-0.034) ng/mL NT-Pro-B Natriuret Pep pg/mL Total Protein 6.9 (6.3-8.2) g/dL Albumin 3.5 (3.5-5.0) g/dL Urine Color Urine Appearance (Clear) Urine pH (5.0-8.0) Ur Specific [place] (1.001-1.035) Urine Protein (Negative) Urine Glucose (UA) (Negative) Urine Ketones (Negative) Urine Blood (Negative) Urine Nitrite (Negative) Urine Bilirubin (Negative) Urine Urobilinogen (<2.0) mg/dL Ur Leukocyte Esterase (Negative) Urine RBC (0-5) /hpf Urine WBC (0-5) /hpf Ur Squamous Epith Cells (0-4) /hpf Amorphous Sediment (None) /hpf Urine Bacteria (None) /hpf Urine Mucus (None) /hpf 11/07/20 11/07/20 11/07/20 Range/Units 13:48 13:48 13:48 WBC (3.8-10.6) k/uL RBC (3.80-5.40) m/uL Hgb (11.4-16.0) gm/dL Hct (34.0-46.0) % MCV (80.0-100.0) fL MCH (25.0-35.0) pg MCHC (31.0-37.0) g/dL RDW (11.5-15.5) % Plt Count (150-450) k/uL MPV Neutrophils % % Lymphocytes % % Monocytes % % Eosinophils % % Basophils % % Neutrophils # (1.3-7.7) k/uL Lymphocytes # (1.0-4.8) k/uL Monocytes # (0-1.0) k/uL Eosinophils # (0-0.7) k/uL Basophils # (0-0.2) k/uL PT (9.0-12.0) sec INR (<1.2) APTT (22.0-30.0) sec Sodium (137-145) mmol/L Potassium (3.5-5.1) mmol/L Chloride (98-107) mmol/L Carbon Dioxide (22-30) mmol/L Anion Gap mmol/L BUN (7-17) mg/dL Creatinine (0.52-1.04) mg/dL Est GFR (CKD-EPI)AfAm (>60 ml/min/1.73 sqM) Est GFR (CKD-EPI)NonAf (>60 ml/min/1.73 sqM) Glucose (74-99) mg/dL Plasma Lactic Acid Chris 1.4 (0.7-2.0) mmol/L Calcium (8.4-10.2) mg/dL Magnesium (1.6-2.3) mg/dL Total Bilirubin (0.2-1.3) mg/dL AST (14-36) U/L ALT (4-34) U/L Alkaline Phosphatase (38-126) U/L Troponin I <0.012 (0.000-0.034) ng/mL NT-Pro-B Natriuret Pep 2770 pg/mL Total Protein (6.3-8.2) g/dL Albumin (3.5-5.0) g/dL Urine Color Urine Appearance (Clear) Urine pH (5.0-8.0) Ur Specific [place] (1.001-1.035) Urine Protein (Negative) Urine Glucose (UA) (Negative) Urine Ketones (Negative) Urine Blood (Negative) Urine Nitrite (Negative) Urine Bilirubin (Negative) Urine Urobilinogen (<2.0) mg/dL Ur Leukocyte Esterase (Negative) Urine RBC (0-5) /hpf Urine WBC (0-5) /hpf Ur Squamous Epith Cells (0-4) /hpf Amorphous Sediment (None) /hpf Urine Bacteria (None) /hpf Urine Mucus (None) /hpf 11/07/20 Range/Units 14:50 WBC (3.8-10.6) k/uL RBC (3.80-5.40) m/uL Hgb (11.4-16.0) gm/dL Hct (34.0-46.0) % MCV (80.0-100.0) fL MCH (25.0-35.0) pg MCHC (31.0-37.0) g/dL RDW (11.5-15.5) % Plt Count (150-450) k/uL MPV Neutrophils % % Lymphocytes % % Monocytes % % Eosinophils % % Basophils % % Neutrophils # (1.3-7.7) k/uL Lymphocytes # (1.0-4.8) k/uL Monocytes # (0-1.0) k/uL Eosinophils # (0-0.7) k/uL Basophils # (0-0.2) k/uL PT (9.0-12.0) sec INR (<1.2) APTT (22.0-30.0) sec Sodium (137-145) mmol/L Potassium (3.5-5.1) mmol/L Chloride (98-107) mmol/L Carbon Dioxide (22-30) mmol/L Anion Gap mmol/L BUN (7-17) mg/dL Creatinine (0.52-1.04) mg/dL Est GFR (CKD-EPI)AfAm (>60 ml/min/1.73 sqM) Est GFR (CKD-EPI)NonAf (>60 ml/min/1.73 sqM) Glucose (74-99) mg/dL Plasma Lactic Acid Chris (0.7-2.0) mmol/L Calcium (8.4-10.2) mg/dL Magnesium (1.6-2.3) mg/dL Total Bilirubin (0.2-1.3) mg/dL AST (14-36) U/L ALT (4-34) U/L Alkaline Phosphatase (38-126) U/L Troponin I (0.000-0.034) ng/mL NT-Pro-B Natriuret Pep pg/mL Total Protein (6.3-8.2) g/dL Albumin (3.5-5.0) g/dL Urine Color Light Yellow Urine Appearance Cloudy H (Clear) Urine pH 8.0 (5.0-8.0) Ur Specific [place] 1.011 (1.001-1.035) Urine Protein Negative (Negative) Urine Glucose (UA) Negative (Negative) Urine Ketones 2+ H (Negative) Urine Blood Negative (Negative) Urine Nitrite Negative (Negative) Urine Bilirubin Negative (Negative) Urine Urobilinogen <2.0 (<2.0) mg/dL Ur Leukocyte Esterase Moderate H (Negative) Urine RBC 3 (0-5) /hpf Urine WBC 15 H (0-5) /hpf Ur Squamous Epith Cells 27 H (0-4) /hpf Amorphous Sediment Rare H (None) /hpf Urine Bacteria Occasional H (None) /hpf Urine Mucus Rare H (None) /hpf Disposition Clinical Impression: Heart failure Disposition: ADMITTED IP TO THIS HOSP Condition: Fair Is patient prescribed a controlled substance at d/c from ED?: No Referrals: Lucie Tesfaye MD [Primary Care Provider] - 1-2 days
[2020-11-07] MEDS ORDERED: ALBUTEROL NEBULIZED 2.5 MG/3 ML INHALATION PRN (16:18)
[2020-11-07] MEDS ORDERED: MORPHINE SULFATE 2 MG/ML SYRINGE IV PRN (16:31)
--- NOTE | 2020-11-07 16:39 | P.HPIM ---
History of Present Illness H&P Date: 11/07/20 Chief Complaint: Generalized weakness and left knee pain This is a 75-year-old female with complex past medical history noted below presented to the emergency room with generalized weakness and being unable to take care of herself at home. Patient was just discharged from the hospital a few days ago after having an elective total left knee arthroplasty. Patient said that for the past day or 2 she has been feeling progressively weaker. She said that her left knee pain is on tolerable. She was taking [place] as directed that was having nausea and was unable to take any of her medication since yesterday. She also reports decreased by mouth intake secondary to nausea and not feeling well. She appears to have a lot of nonspecific concerns. She denies any abdominal pain. No vomiting. She said that yesterday she had one episode when she passed blood clots through her rectum without having a bowel movement. She reported having normal bowel movements otherwise. She is also complaining of some shortness of breath that is not significantly worse compared to her baseline. She denies any chest pain or palpitation. No fevers or chills. No cough. Patient was evaluated in the ER and will be admitted to the hospital for further management Review of Systems Review of system: 14 points review of systems were obtained and were negative except to what were mentioned in the HPI. 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 Heart cath w/ no intervention Past Anesthesia/Blood Transfusion Reactions: Previous Problems w/ Anesthesia, Postoperative Nausea & Vomiting (PONV) Additional Past Anesthesia/Blood Transfusion Reaction / Comment(s): hard to wake up Past Psychological History: No Psychological Hx Reported Smoking Status: Never smoker Past Alcohol Use History: None Reported Past Drug Use History: None Reported - Past Family History Sister(s) Family Medical History: Cancer Brother(s) Family Medical History: Cancer Mother Family Medical History: Myocardial Infarction ([place]) Additional Family Medical History / Comment(s): Mother of a [place] at the age of 76yrs. Father History Unknown: Yes Medications and Allergies Home Medications Medication Instructions Recorded Confirmed Type Estradiol [Estrace] 2 mg PO DAILY 05/14/14 11/07/20 History Pantoprazole Sodium [Protonix] 40 mg PO BID 05/14/14 11/07/20 History Albuterol Nebulized [Ventolin 2.5 mg INHALATION RT-QID PRN 08/16/18 11/07/20 History Nebulized] Ipratropium Nebulized [Atrovent 0.5 mg INHALATION RT-QID PRN 11/13/18 11/07/20 History Nebulized 0.2 MG/ML] DULoxetine HCL [Cymbalta] 60 mg PO DAILY 10/06/19 11/07/20 History Albuterol Sulfate [Ventolin HFA] 1 - 2 puff INHALATION RT-Q6H PRN 10/29/19 11/07/20 History Acetaminophen [Tylenol Arthritis] 650 mg PO DAILY PRN 05/02/20 11/07/20 History Diclofenac Sodium Gel [Voltaren 4 gm TOPICAL QID PRN 05/02/20 11/07/20 History Gel] Glucosam/Chond/Hyalu/Cf Borate 1 tab PO DAILY 05/02/20 11/07/20 History [Move Free Joint Health Tablet] Lysine 500 mg PO DAILY #0 05/02/20 11/07/20 History Nadolol [Corgard] 40 mg PO DAILY 05/02/20 11/07/20 History Pregabalin [Lyrica] 75 mg PO BID #14 cap 05/24/20 11/07/20 Rx Warfarin [Coumadin] 5 mg PO DAILY 10/22/20 11/07/20 History HYDROcodone/APAP 10-325MG [[place] 1 tab PO Q4HR PRN #42 tab 10/31/20 11/07/20 Rx 10-325] Fluorouracil [Efudex] 1 applic TOPICAL BID 11/07/20 11/07/20 History Hydroxychloroquine Sulfate 200 mg PO BID 11/07/20 11/07/20 History [Plaquenil] Allergies Allergy/AdvReac Type Severity Reaction Status Date / Time cephalexin monohydrate Allergy HIVES Verified 11/07/20 15:26 [From Keflex] diphenhydramine HCl Allergy SWELLING Verified 11/07/20 15:26 [From Benadryl] OF TONGUE, SOB enoxaparin [From Lovenox] Allergy Rash/Hives Verified 11/07/20 15:26 Penicillins Allergy SWELLING, Verified 11/07/20 15:26 HIVES aspirin AdvReac EXCESS Verified 11/07/20 15:26 BLEEDING morphine AdvReac Vomiting Verified 11/07/20 15:26 sulfamethoxazole AdvReac Nausea & Verified 11/07/20 15:26 [From Bactrim] Vomiting trimethoprim [From Bactrim] AdvReac Nausea & Verified 11/07/20 15:26 Vomiting Physical Exam Vitals: Vital Signs Temp Pulse Resp BP Pulse Ox 11/07/20 16:07 78 16 172/76 98 11/07/20 15:00 71 22 170/70 98 11/07/20 13:14 97.3 F L 70 18 176/68 98 Intake and Output 11/07/20 11/07/20 11/07/20 06:59 14:59 22:59 Other: Weight 72.575 kg General: The patient is awake and alert, in no distress Eye: there is normal conjunctiva bilaterally. Neck: The neck is supple, there is no JVD. Cardiovascular: Normal S1-S2, no S3-S4, no murmurs. Respiratory: Lungs clear to auscultation bilaterally Gastrointestinal: Abdomen is soft, nontender Musculoskeletal: There is significant swelling of the left lower extremity up to the knee with incision site appears to be healing well Neurological:. Speech is normal. Skin: Skin is warm and dry Results CBC & Chem 7: 11/07/20 13:48 11/07/20 13:48 Labs: Abnormal Lab Results - Last 24 Hours (Table) 11/07/20 11/07/20 11/07/20 Range/Units 13:48 13:48 13:48 RBC 3.45 L (3.80-5.40) m/uL Hgb 10.4 L (11.4-16.0) gm/dL Hct 31.0 L (34.0-46.0) % PT 13.7 H (9.0-12.0) sec INR 1.3 H (<1.2) Carbon Dioxide 21 L (22-30) mmol/L Urine Appearance (Clear) Urine Ketones (Negative) Ur Leukocyte Esterase (Negative) Urine WBC (0-5) /hpf Ur Squamous Epith Cells (0-4) /hpf Amorphous Sediment (None) /hpf Urine Bacteria (None) /hpf Urine Mucus (None) /hpf 11/07/20 Range/Units 14:50 RBC (3.80-5.40) m/uL Hgb (11.4-16.0) gm/dL Hct (34.0-46.0) % PT (9.0-12.0) sec INR (<1.2) Carbon Dioxide (22-30) mmol/L Urine Appearance Cloudy H (Clear) Urine Ketones 2+ H (Negative) Ur Leukocyte Esterase Moderate H (Negative) Urine WBC 15 H (0-5) /hpf Ur Squamous Epith Cells 27 H (0-4) /hpf Amorphous Sediment Rare H (None) /hpf Urine Bacteria Occasional H (None) /hpf Urine Mucus Rare H (None) /hpf Assessment and Plan Assessment: 1. Severe left knee pain status post total left knee arthroplasty last week. I would obtain x-ray of the left knee and consult Dr. Dumont for further evaluation. Continue pain control with IV morphine for now. 2. One episode of passing blood clots through the rectum. Patient reported having a normal colonoscopy last year. Hemoglobin stable around baseline. I would obtain Hemoccult. Repeat CBC in the morning. Continue clear liquid diet for now. IV Protonix daily. 3. Chronic atrial fibrillation on anticoagulation with Coumadin. INR subtherapeutic. Continue to hold INR for now 4. Nonobstructive coronary artery disease noted on left heart catheterization in April 2020. Medical management and follow-up with cardiology in the office as directed 5. Chronic medical problems, hypothyroidism, hyperlipidemia, hypertension, GERD, 6. DVT prophylaxis with SCD
[2020-11-07] MEDS: PANTOPRAZOLE 40 MG/10 ML VIAL IVP SCH (17:56)
[2020-11-07] MEDS: IPRATROPIUM-ALBUTEROL 3 ML NEB INHALATION PRN (18:27)
--- NOTE | 2020-11-07 22:28 | XR ---
Result: History: Left knee pain status post arthroplasty 1 week ago. Comparison: 10/30/2020. Technique: 3 views of the left knee. Findings: There is redemonstration of left total knee arthroplasty without evidence of hardware complication or acute fracture. No dislocation. There is increased large left knee joint effusion. There is a single small postoperative air about the patellofemoral joint. Impression: Increased large left knee joint effusion. No acute osseous abnormality. Left knee arthroplasty.
[2020-11-08] MEDS: HYDROXYCHLOROQUINE SULFATE 200 MG TAB PO SCH ×2 (00:58→09:07)
[2020-11-08] MEDS: PREGABALIN 75 MG CAP PO SCH ×2 (00:58→09:07)
[2020-11-08 03:50] VITALS: RESP 16
[2020-11-08] MEDS: IPRATROPIUM-ALBUTEROL 3 ML NEB INHALATION PRN ×2 (07:44→11:43)
[2020-11-08 08:17] LABS: Basophils # (A) 0.1 k/uL (0-0.2); Basophils % (A) 1 %; Eosinophils # (A) 0.2 k/uL (0-0.7); Eosinophils % (A) 3 %; HCT 34.4 % (34.0-46.0); HGB 11.1 gm/dL (11.4-16.0); Hypochromasia Slight; Lymphocytes # (A) 1.6 k/uL (1.0-4.8); Lymphocytes % (A) 25 %; MCH 29.7 pg (25.0-35.0); MCHC 32.2 g/dL (31.0-37.0); MCV 92.5 fL (80.0-100.0); Mean Platelet Volume 6.8; Monocytes # (A) 0.7 k/uL (0-1.0); Monocytes % (A) 10 %; Neutrophils # (A) 3.7 k/uL (1.3-7.7); Neutrophils % (A) 59 %; Platelet Count 407 k/uL (150-450); RBC 3.72 m/uL (3.80-5.40); RDW 14.5 % (11.5-15.5); WBC 6.4 k/uL (3.8-10.6)
[2020-11-08 08:28] LABS: African American GFR (CKD) >90 (>60 ml/min/1.73 sqM); Anion Gap 12 mmol/L; Blood Urea Nitrogen 17 mg/dL (7-17); Calcium 8.6 mg/dL (8.4-10.2); Carbon Dioxide 22 mmol/L (22-30); Chloride 103 mmol/L (98-107); Glucose 67 mg/dL (74-99); Non-African American GFR(CKD) 86 (>60 ml/min/1.73 sqM); Potassium 3.8 mmol/L (3.5-5.1); Sodium 137 mmol/L (137-145)
[2020-11-08] MEDS ORDERED: DULoxetine HCL 60 MG CAPSULE.DR PO SCH (09:00)
[2020-11-08] MEDS: PANTOPRAZOLE 40 MG/10 ML VIAL IVP SCH (09:08)
[2020-11-08 09:53] VITALS: BP 156/74; TEMP 97.9
--- NOTE | 2020-11-08 11:31 | P.CNOR ---
History of Present Illness - [facility] Consult date: 11/08/20 History of present illness: This patient is a 75- year old female that presented to [facility] ER yesterday 11/07/20 with complaints of generalized weakness and left knee pain. Patient recently underwent a left total knee arthroplasty on 10/30/[address] Dumont. Patient was discharged from this hospital on 11/02/20 in good condition. Patient states she was doing well at home the first few days and ambulating without issue. Patient denies any falls or trauma. She states throughout the week, she started to feel overall weak. She has not eaten for the past few days. She also has felt nauseated although no episodes of vomiting. Patient called our office earlier this week with complaints of increased swelling of the left lower extremity, a Doppler ultrasound was ordered and performed on 11/04/20, which was negative for DVT. Patient also notes she passed a large blood clot while attempting to have a bowel movement . She is urinating without issue. Patient states she decided to come to the ER due to her continued weakness. Upon presentation to the ER, Doppler ultrasound was repeated with no evidence of DVT. Medical history is significant for atrial fibrillation on Coumadin, hypertension, hyperlipidemia, CAD, and GERD. At the time of my exam, the patient states she is not experiencing any significant left knee pain. She complains of mild chest pain and shortness of breath. She also complains of feeling weak. Patient did eat a small amount of breakfast. Patient denies being dizzy or lightheaded. She denies fevers or chills. She has no complaints in regard to her left knee at this time. She denies drainage or erythema surrounding her incision. She has no additional complaints. Vital signs are currently stable. 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 Heart cath w/ no intervention Past Anesthesia/Blood Transfusion Reactions: Previous Problems w/ Anesthesia, Postoperative Nausea & Vomiting (PONV) Additional Past Anesthesia/Blood Transfusion Reaction / Comm: hard to wake up Past Psychological History: No Psychological Hx Reported Additional Psychological History / Comment(s): . Smoking Status: Never smoker Past Alcohol Use History: None Reported Past Drug Use History: None Reported - Past Family History Sister(s) Family Medical History: Cancer Brother(s) Family Medical History: Cancer Mother Family Medical History: Myocardial Infarction ([place]) Additional Family Medical History / Comment(s): Mother of a [place] at the age of 76yrs. Father History Unknown: Yes Medications and Allergies Home Medications Medication Instructions Recorded Confirmed Type Estradiol [Estrace] 2 mg PO DAILY 05/14/14 11/07/20 History Pantoprazole Sodium [Protonix] 40 mg PO BID 05/14/14 11/07/20 History Albuterol Nebulized [Ventolin 2.5 mg INHALATION RT-QID PRN 08/16/18 11/07/20 History Nebulized] Ipratropium Nebulized [Atrovent 0.5 mg INHALATION RT-QID PRN 11/13/18 11/07/20 History Nebulized 0.2 MG/ML] DULoxetine HCL [Cymbalta] 60 mg PO DAILY 10/06/19 11/07/20 History Albuterol Sulfate [Ventolin HFA] 1 - 2 puff INHALATION RT-Q6H PRN 10/29/19 11/07/20 History Acetaminophen [Tylenol Arthritis] 650 mg PO DAILY PRN 05/02/20 11/07/20 History Diclofenac Sodium Gel [Voltaren 4 gm TOPICAL QID PRN 05/02/20 11/07/20 History Gel] Glucosam/Chond/Hyalu/Cf Borate 1 tab PO DAILY 05/02/20 11/07/20 History [Move Free Joint Health Tablet] Lysine 500 mg PO DAILY #0 05/02/20 11/07/20 History Nadolol [Corgard] 40 mg PO DAILY 05/02/20 11/07/20 History Pregabalin [Lyrica] 75 mg PO BID #14 cap 05/24/20 11/07/20 Rx Warfarin [Coumadin] 5 mg PO DAILY 10/22/20 11/07/20 History HYDROcodone/APAP 10-325MG [[place] 1 tab PO Q4HR PRN #42 tab 10/31/20 11/07/20 Rx 10-325] Fluorouracil [Efudex] 1 applic TOPICAL BID 11/07/20 11/07/20 History Hydroxychloroquine Sulfate 200 mg PO BID 11/07/20 11/07/20 History [Plaquenil] Allergies Allergy/AdvReac Type Severity Reaction Status Date / Time cephalexin monohydrate Allergy HIVES Verified 11/07/20 15:26 [From Keflex] diphenhydramine HCl Allergy SWELLING Verified 11/07/20 15:26 [From Benadryl] OF TONGUE, SOB enoxaparin [From Lovenox] Allergy Rash/Hives Verified 11/07/20 15:26 Penicillins Allergy SWELLING, Verified 11/07/20 15:26 HIVES aspirin AdvReac EXCESS Verified 11/07/20 15:26 BLEEDING morphine AdvReac Vomiting Verified 11/07/20 15:26 sulfamethoxazole AdvReac Nausea & Verified 11/07/20 15:26 [From Bactrim] Vomiting trimethoprim [From Bactrim] AdvReac Nausea & Verified 11/07/20 15:26 Vomiting Physical Examination On examination, the patient is sitting up in bed in no apparent distress. She is alert and oriented 3. Her head appears normocephalic and atraumatic. Her breathing appears nonlabored. She has no conversational dyspnea. On inspection of the left lower extremity, there is an incision of the anterior knee consistent with recent TKA which appears to be healing very well. Mild swelling and surrounding ecchymosis. There is no surrounding erythema, warmth, or drainage. There no signs of infection. The patient is able to perform active flexion and extension of the knee without pain or issue. She is able to perform a straight leg raise without pain or issue. The thigh is soft and compressible. The calf is very soft to palpation, no significant pain with palpation. Patient has good strength range of motion of the left ankle and toes. Motor and sensory function are intact of the left lower extremity. Dorsalis pedis pulse is palpable. The left lower extremity is warm and well- perfused with brisk capillary refill distally. Results Left knee x-ray 11/07/19: Total knee arthroplasty with implants in good position. No acute fractures. - Labs Labs: Abnormal Lab Results - Last 24 Hours (Table) 11/07/20 11/07/20 11/07/20 Range/Units 13:48 13:48 13:48 RBC 3.45 L (3.80-5.40) m/uL Hgb 10.4 L (11.4-16.0) gm/dL Hct 31.0 L (34.0-46.0) % PT 13.7 H (9.0-12.0) sec INR 1.3 H (<1.2) Carbon Dioxide 21 L (22-30) mmol/L Glucose (74-99) mg/dL Urine Appearance (Clear) Urine Ketones (Negative) Ur Leukocyte Esterase (Negative) Urine WBC (0-5) /hpf Ur Squamous Epith Cells (0-4) /hpf Amorphous Sediment (None) /hpf Urine Bacteria (None) /hpf Urine Mucus (None) /hpf 11/07/20 11/08/20 11/08/20 Range/Units 14:50 07:48 07:48 RBC 3.72 L (3.80-5.40) m/uL Hgb 11.1 L (11.4-16.0) gm/dL Hct (34.0-46.0) % PT (9.0-12.0) sec INR (<1.2) Carbon Dioxide (22-30) mmol/L Glucose 67 L (74-99) mg/dL Urine Appearance Cloudy H (Clear) Urine Ketones 2+ H (Negative) Ur Leukocyte Esterase Moderate H (Negative) Urine WBC 15 H (0-5) /hpf Ur Squamous Epith Cells 27 H (0-4) /hpf Amorphous Sediment Rare H (None) /hpf Urine Bacteria Occasional H (None) /hpf Urine Mucus Rare H (None) /hpf Microbiology - Last 24 Hours (Table) 11/07/20 14:50 Urine Culture - Preliminary Urine,Voided H & H 11/07/20 11/08/20 Range/Units 13:48 07:48 Hgb 10.4 L 11.1 L (11.4-16.0) gm/dL Hct 31.0 L 34.4 (34.0-46.0) % Coagulation 11/07/20 Range/Units 13:48 INR 1.3 H (<1.2) Result Diagrams: 11/08/20 07:48 11/08/20 07:48 Assessment and Plan Assessment: Status-post left total knee arthroplasty on 10/30/19. Plan: - I explained the clinical and imaging findings with the patient. Her x-rays show a stable total knee arthroplasty with no acute fractures. Her incision appears to be healing very well. She is not having any significant pain in the left knee on examination today. - Patient may continue to weight-bear to tolerance on the left lower extremity. Up with assistance, up with a walker. Physical therapy. - Medical management per admitting team. - Pain management per admitting team. Patient states she does not want to take opioids. - Patient may benefit from rehab at discharge. - We will continue to follow patient and make recommendations as needed. Patient discussed with Dr. Dumont.
[2020-11-08 11:53] VITALS: PULSE 92
--- NOTE | 2020-11-08 12:52 | P.DS ---
Providers Date of admission: 11/07/20 16:16 Expected date of discharge: 11/08/20 Attending physician: Teresa Zafar Consults: 11/07/20 16:28 Consult Physician Routine Consulting Provider: Mo Dumont Consult Reason/Comments: L knee pain Do you want consulting provider notified?: Yes [facility] Course: This is a 75-year-old female with complex past medical history noted below who presented to the emergency room with nonspecific complaint of weakness, nausea, and worsening knee pain. Patient was evaluated in the ER and placed in [facility] for further management of her medical problems noted below. 1. Severe left knee pain status post total left knee arthroplasty last week. X-ray of the knee showed slightly increased effusion. Patient was seen and evaluated by orthopedic. She was reassured. She was allowed to continue weightbearing as tolerated. 2. One episode of passing blood clots through the rectum. Patient reported having a normal colonoscopy last year. Hemoglobin stable around baseline. No further episodes of bleeding noted while in the hospital. Patient was advised to continue to monitor closely and return to the ER in case she have recurrent rectal bleeding 3. Chronic atrial fibrillation on anticoagulation with Coumadin. INR subtherapeutic. 4. Nonobstructive coronary artery disease noted on left heart catheterization in April 2020. Medical management and follow-up with cardiology in the office as directed 5. Chronic medical problems, hypothyroidism, hyperlipidemia, hypertension, GERD, Patient was offered to be discharged to a [facility] facility for rehab but she was adamant to refuse. She would like to go home. She has physical therapy set up at home. She will be discharged in stable condition. Patient Condition at Discharge: Fair Plan - Discharge Summary Discharge Rx Participant: No New Discharge Prescriptions: Continue Pantoprazole Sodium [Protonix] 40 mg PO BID Estradiol [Estrace] 2 mg PO DAILY Albuterol Nebulized [Ventolin Nebulized] 2.5 mg INHALATION RT-QID PRN PRN Reason: Shortness Of Breath Ipratropium Nebulized [Atrovent Nebulized 0.2 MG/ML] 0.5 mg INHALATION RT-QID PRN PRN Reason: Shortness Of Breath DULoxetine HCL [Cymbalta] 60 mg PO DAILY Albuterol Sulfate [Ventolin HFA] 1 - 2 puff INHALATION RT-Q6H PRN PRN Reason: Shortness Of Breath Lysine 500 mg PO DAILY #0 Glucosam/Chond/Hyalu/Cf Borate [Move Free Joint Health Tablet] 1 tab PO DAILY Acetaminophen [Tylenol Arthritis] 650 mg PO DAILY PRN PRN Reason: arthritis pain Nadolol [Corgard] 40 mg PO DAILY Diclofenac Sodium Gel [Voltaren Gel] 4 gm TOPICAL QID PRN PRN Reason: left knee pain Pregabalin [Lyrica] 75 mg PO BID #14 cap Warfarin [Coumadin] 5 mg PO DAILY HYDROcodone/APAP 10-325MG [[place] 10-325] 1 tab PO Q4HR PRN #42 tab PRN Reason: Pain Fluorouracil [Efudex] 1 applic TOPICAL BID Hydroxychloroquine Sulfate [Plaquenil] 200 mg PO BID Discharge Medication List Estradiol [Estrace] 2 mg PO DAILY 05/14/14 [History] Pantoprazole Sodium [Protonix] 40 mg PO BID 05/14/14 [History] Albuterol Nebulized [Ventolin Nebulized] 2.5 mg INHALATION RT-QID PRN 08/16/18 [History] Ipratropium Nebulized [Atrovent Nebulized 0.2 MG/ML] 0.5 mg INHALATION RT-QID PRN 11/13/18 [History] DULoxetine HCL [Cymbalta] 60 mg PO DAILY 10/06/19 [History] Albuterol Sulfate [Ventolin HFA] 1 - 2 puff INHALATION RT-Q6H PRN 10/29/19 [History] Acetaminophen [Tylenol Arthritis] 650 mg PO DAILY PRN 05/02/20 [History] Diclofenac Sodium Gel [Voltaren Gel] 4 gm TOPICAL QID PRN 05/02/20 [History] Glucosam/Chond/Hyalu/Cf Borate [Move Free Joint Health Tablet] 1 tab PO DAILY 05/02/20 [History] Lysine 500 mg PO DAILY #0 05/02/20 [History] Nadolol [Corgard] 40 mg PO DAILY 05/02/20 [History] Pregabalin [Lyrica] 75 mg PO BID #14 cap 05/24/20 [Rx] Warfarin [Coumadin] 5 mg PO DAILY 10/22/20 [History] HYDROcodone/APAP 10-325MG [[place] 10-325] 1 tab PO Q4HR PRN #42 tab 10/31/20 [Rx] Fluorouracil [Efudex] 1 applic TOPICAL BID 11/07/20 [History] Hydroxychloroquine Sulfate [Plaquenil] 200 mg PO BID 11/07/20 [History] Follow up Appointment(s)/Referral(s): Lucie Tesfaye MD [Primary Care Provider] - 3 Days Discharge Disposition: HOME WITH HOME HEALTH SERVICES
[2020-11-09] MEDS ORDERED: PANTOPRAZOLE 40 MG TABLET PO SCH (09:00)
== END 2020-11-08 13:53 | disposition home health service (06) ==
LOC: EC 13:01 → 1SOBS 16:16
PROVIDERS: ADMIT Internal Medicine; ATTEND Internal Medicine
DX: M25.562 Pain in left knee (principal); G89.18 Other acute postprocedural pain; R53.1 Weakness; Z96.653 Presence of artificial knee joint, bilateral; K92.1 Melena; R06.02 Shortness of breath; R11.0 Nausea; R07.9 Chest pain, unspecified; M79.89 Other specified soft tissue disorders; I25.2 Old myocardial infarction; I48.92 Unspecified atrial flutter; M54.9 Dorsalgia, unspecified; G43.909 Migraine, unspecified, not intractable, without status migrainosus; I11.0 Hypertensive heart disease with heart failure; I50.9 Heart failure, unspecified; I48.20 Chronic atrial fibrillation, unspecified; I25.10 Atherosclerotic heart disease of native coronary artery without angina pectoris; E89.0 Postprocedural hypothyroidism; E78.5 Hyperlipidemia, unspecified; K21.9 Gastro-esophageal reflux disease without esophagitis; Z96.641 Presence of right artificial hip joint; Z87.11 Personal history of peptic ulcer disease; Z87.442 Personal history of urinary calculi; Z90.49 Acquired absence of other specified parts of digestive tract; Z87.19 Personal history of other diseases of the digestive system; Z85.820 Personal history of malignant melanoma of skin; Z79.890 Hormone replacement therapy; Z79.899 Other long term (current) drug therapy; Z79.01 Long term (current) use of anticoagulants; Z88.6 Allergy status to analgesic agent; Z88.1 Allergy status to other antibiotic agents; Z88.5 Allergy status to narcotic agent; Z88.0 Allergy status to penicillin; Z88.2 Allergy status to sulfonamides; Z88.8 Allergy status to other drugs, medicaments and biological substances; Z82.49 Family history of ischemic heart disease and other diseases of the circulatory system; Z80.9 Family history of malignant neoplasm, unspecified; Z90.710 Acquired absence of both cervix and uterus; Z20.828 Contact with and (suspected) exposure to other viral communicable diseases
CPT/HCPCS: 96376; 96361; 96374; 96375; 99285; 94640 ×2; 93005; 83880; 80053; 80048; 83605; 83735; 84484; 85025 ×2; 85610; 85730; 81001; 87086; 87077; 87186; 87635; 73562; 71046; 93971; G0378 ×2; J1940; J2405; C9113 ×2

== ENCOUNTER → 2021-01-23 | Outpatient (CLI) | payer MEDICARE, BC ==
--- NOTE | 2021-01-23 13:12 | FL ---
EXAMINATION TYPE: FL barium swallow DATE OF EXAM: 01/23/2021 CLINICAL INDICATION: 75-year-old female R1 3.10, dysphagia. Patient with sensation of ingested materi al sticking along the upper chest. COMPARISON: None Total Fluoroscopy Time: 2 minutes 38 seconds. Total images: 35. FINDINGS: Persistent episodes of penetration are demonstrated during swallowing. There is eventual coating of t he vocal folds with occasional coughing. There is ACDF hardware from C4 to C7 levels. No prevertebral soft tissue swelling. Moderate piriform sinus residuals are noted. The hypopharyngeal anatomy is preserved. The thoracic portion has a normal course and caliber. There is [id number] dysmotility with tert iary peristaltic waves and residual contrast in the upper third esophagus and stomach and gastroesoph ageal reflux. The mucosa is normal and no persistent filling defect is encountered. No hiatal hernia is present. No gastroesophageal reflux is identified. IMPRESSION: 1. Persistent episodes of penetration. Coating of the vocal folds is visualized. Note that this elici ts only an occasional cough. The patient reports frequent coughing during eating. Recommend speech pa thology consultation to assess for any potential risk for aspiration. 2. Mild to moderate dysmotility. Blunted secondary stripping waves resulting in some residual contras t in the upper third esophagus. No stricture or mucosal lesion.
== END | disposition home or self-care (01) ==
LOC: RADUSWWP 09:58
PROVIDERS: ATTEND Otolaryngology
DX: R13.10 Dysphagia, unspecified (principal); K22.4 Dyskinesia of esophagus
CPT/HCPCS: 74220

== ENCOUNTER → 2021-02-12 | Outpatient (CLI) | payer MEDICARE, BC ==
--- NOTE | 2021-02-12 11:44 | FL ---
Modified barium swallow. HISTORY: Dysphagia. Modified barium swallow was performed with the department of speech pathology. The patient was prese nted with various consistencies of barium. There is no evidence for aspiration or penetration. Full report is to follow from the department of speech pathology. Impression: Normal study.
== END | disposition home or self-care (01) ==
LOC: RADFLMAIN 11:00
PROVIDERS: ATTEND Otolaryngology
DX: R13.10 Dysphagia, unspecified (principal)
CPT/HCPCS: 74230

== ENCOUNTER 2021-05-17 16:53 | Emergency (ER) | payer MEDICARE, BC ==
[2021-05-17] MEDS ORDERED: SODIUM CHLORIDE 0.9% 1,000 ML IV STA (17:37)
[2021-05-17 17:53] LABS: Basophils # (A) 0.1 k/uL (0-0.2); Basophils % (A) 1 %; Eosinophils # (A) 0.4 k/uL (0-0.7); Eosinophils % (A) 5 %; HCT 33.5 % (34.0-46.0); HGB 11.2 gm/dL (11.4-16.0); Lymphocytes # (A) 1.4 k/uL (1.0-4.8); Lymphocytes % (A) 17 %; MCH 31.9 pg (25.0-35.0); MCHC 33.3 g/dL (31.0-37.0); MCV 95.8 fL (80.0-100.0); Mean Platelet Volume 7.9; Monocytes # (A) 0.6 k/uL (0-1.0); Monocytes % (A) 8 %; Neutrophils # (A) 5.4 k/uL (1.3-7.7); Neutrophils % (A) 67 %; Platelet Count 285 k/uL (150-450); RDW 13.2 % (11.5-15.5)
--- NOTE | 2021-05-17 17:57 | XR ---
EXAMINATION TYPE: XR chest 2V DATE OF EXAM: 05/17/2021 COMPARISON: 11/07/2020 HISTORY: Difficulty breathing TECHNIQUE: 2 views FINDINGS: There is no heart failure nor confluent pneumonic infiltrate. Costophrenic angles are clear . There are chest leads. The bony thorax is intact. IMPRESSION: Normal chest. No adverse change.
[2021-05-17 18:03] LABS: ALT 12 U/L (4-34); AST 23 U/L (14-36); African American GFR (CKD) 79 (>60 ml/min/1.73 sqM); Albumin 3.9 g/dL (3.5-5.0); Alkaline Phosphatase 64 U/L (38-126); Anion Gap 7 mmol/L; Blood Urea Nitrogen 19 mg/dL (7-17); Carbon Dioxide 24 mmol/L (22-30); Chloride 103 mmol/L (98-107); Glucose 94 mg/dL (74-99); Magnesium 1.9 mg/dL (1.6-2.3); Non-African American GFR(CKD) 68 (>60 ml/min/1.73 sqM); Potassium 4.2 mmol/L (3.5-5.1); Sodium 134 mmol/L (137-145); Total Bilirubin <0.1 mg/dL (0.2-1.3)
[2021-05-17 18:12] LABS: INR 0.9 (<1.2); Prothrombin Time 9.8 sec (9.0-12.0)
--- NOTE | 2021-05-17 18:43 | ED ---
General Adult HPI - General Chief complaint: Shortness of Breath Stated complaint: Cough, chest tightness Time Seen by Provider: 05/17/21 17:17 Source: patient, RN notes reviewed Mode of arrival: ambulatory Limitations: no limitations - History of Present Illness Initial comments: Patient is a 75-year-old female that presents to the emergency department complaining of a one-day history of cough with minimal shortness of breath. She notes she woke up this morning with a cough that was productive very minimal yellow sputum. She notes that throughout the day became more dry. She notes that she does have a history of heart attack, congestive heart failure, left bundle branch block, cardiac event. She did note that she follows of bradycardia or with primary care. She noted she came in for evaluation today due to the coughing fits and increased shortness of breath. She denied any other issues or complaints. She denied any chest pain headache nausea vomiting diarrhea constipation fever fatigue chills. - Related Data Home Medications Medication Instructions Recorded Confirmed Estradiol [Estrace] 2 mg PO DAILY 05/14/14 11/07/20 Pantoprazole Sodium [Protonix] 40 mg PO BID 05/14/14 11/07/20 Albuterol Nebulized [Ventolin 2.5 mg INHALATION RT-QID PRN 08/16/18 11/07/20 Nebulized] Ipratropium Nebulized [Atrovent 0.5 mg INHALATION RT-QID PRN 11/13/18 11/07/20 Nebulized 0.2 MG/ML] DULoxetine HCL [Cymbalta] 60 mg PO DAILY 10/06/19 11/07/20 Albuterol Sulfate [Ventolin HFA] 1 - 2 puff INHALATION RT-Q6H PRN 10/29/19 11/07/20 Acetaminophen [Tylenol Arthritis] 650 mg PO DAILY PRN 05/02/20 11/07/20 Diclofenac Sodium Gel [Voltaren 4 gm TOPICAL QID PRN 05/02/20 11/07/20 Gel] Glucosam/Chond/Hyalu/Cf Borate 1 tab PO DAILY 05/02/20 11/07/20 [Move Free [employer] Health Tablet] Lysine 500 mg PO DAILY #0 05/02/20 11/07/20 Nadolol [Corgard] 40 mg PO DAILY 05/02/20 11/07/20 Warfarin [Coumadin] 5 mg PO DAILY 10/22/20 11/07/20 Fluorouracil [Efudex] 1 applic TOPICAL BID 11/07/20 11/07/20 Hydroxychloroquine Sulfate 200 mg PO BID 11/07/20 11/07/20 [Plaquenil] Previous Rx's Medication Instructions Recorded Pregabalin [Lyrica] 75 mg PO BID #14 cap 05/24/20 HYDROcodone/APAP 10-325MG [Preston 1 tab PO Q4HR PRN #42 tab 10/31/20 10-325] Allergies Allergy/AdvReac Type Severity Reaction Status Date / Time cephalexin monohydrate Allergy HIVES Verified 05/17/21 17:01 [From Keflex] diphenhydramine HCl Allergy SWELLING Verified 05/17/21 17:01 [From Benadryl] OF TONGUE, SOB enoxaparin [From Lovenox] Allergy Rash/Hives Verified 05/17/21 17:01 Penicillins Allergy SWELLING, Verified 05/17/21 17:01 HIVES aspirin AdvReac EXCESS Verified 05/17/21 17:01 BLEEDING morphine AdvReac Vomiting Verified 05/17/21 17:01 sulfamethoxazole AdvReac Nausea & Verified 05/17/21 17:01 [From Bactrim] Vomiting trimethoprim [From Bactrim] AdvReac Nausea & Verified 05/17/21 17:01 Vomiting Review of Systems ROS Statement: Those systems with pertinent positive or pertinent negative responses have been documented in the HPI. ROS Other: All systems not noted in ROS Statement are negative. 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 Heart cath w/ no intervention Past Anesthesia/Blood Transfusion Reactions: Previous Problems w/ Anesthesia, Postoperative Nausea & Vomiting (PONV) Additional Past Anesthesia/Blood Transfusion Reaction / Comment(s): hard to wake up Past Psychological History: No Psychological Hx Reported Smoking Status: Never smoker Past Alcohol Use History: None Reported Past Drug Use History: None Reported - Past Family History Sister(s) Family Medical History: Cancer Brother(s) Family Medical History: Cancer Mother Family Medical History: Myocardial Infarction (NE) Additional Family Medical History / Comment(s): Mother of a NE at the age of 76yrs. Father History Unknown: Yes General Exam Limitations: no limitations General appearance: alert, in no apparent distress Head exam: Present: atraumatic, normocephalic, normal inspection Eye exam: Present: normal appearance, PERRL, EOMI. Absent: scleral icterus, co njunctival injection, periorbital swelling Neck exam: Present: normal inspection. Absent: tenderness, meningismus, lymphadenopathy Respiratory exam: Present: normal lung sounds bilaterally. Absent: respiratory distress, wheezes, rales, rhonchi, stridor Cardiovascular Exam: Present: regular rate, normal rhythm, normal heart sounds. Absent: systolic murmur, diastolic murmur, rubs, gallop, clicks GI/Abdominal exam: Present: soft, normal bowel sounds. Absent: distended, tenderness, guarding, rebound, rigid Extremities exam: Present: normal inspection, full ROM, normal capillary refill. Absent: tenderness, pedal edema, joint swelling, calf tenderness Neurological exam: Present: alert, oriented X3 Psychiatric exam: Present: normal affect, normal mood Skin exam: Present: warm, dry, intact, normal color. Absent: rash Course Vital Signs 05/17/21 05/17/21 17:01 19:00 Temperature 98.7 F Pulse Rate 72 61 Respiratory 16 17 Rate Blood Pressure 177/73 166/64 O2 Sat by Pulse 97 98 Oximetry EKG Findings - EKG Comments: EKG Findings:: Ventricular rate 63 bpm, IA interval 172 ms, QRS duration 136 ms, QTC 446 ms, PRT axes 64/-30/95. Normal sinus rhythm with sinus arrhythmia, left axis deviation, left bundle branch block, abnormal ECG. Medical Decision Making - Medical Decision Making 75-year-old female complaining of increased shortness of breath and a mildly productive turned to dry cough times one. Labs, chest x-ray, 1 L normal saline, cardiac care nurse, EKG ordered. Covid test ordered Vital stable. Labs unremarkable, EKG similar to previous studies within her normal limits. Case discussed with Dr. Reid, patient discharge home in stable condition with follow-up to primary care. - Lab Data Result diagrams: 05/17/21 17:46 05/17/21 17:46 Lab Results 05/17/21 05/17/21 05/17/21 Range/Units 17:46 17:46 17:46 WBC 8.0 (3.8-10.6) k/uL RBC 3.50 L (3.80-5.40) m/uL Hgb 11.2 L (11.4-16.0) gm/dL Hct 33.5 L (34.0-46.0) % MCV 95.8 (80.0-100.0) fL MCH 31.9 (25.0-35.0) pg MCHC 33.3 (31.0-37.0) g/dL RDW 13.2 (11.5-15.5) % Plt Count 285 (150-450) k/uL MPV 7.9 Neutrophils % 67 % Lymphocytes % 17 % Monocytes % 8 % Eosinophils % 5 % Basophils % 1 % Neutrophils # 5.4 (1.3-7.7) k/uL Lymphocytes # 1.4 (1.0-4.8) k/uL Monocytes # 0.6 (0-1.0) k/uL Eosinophils # 0.4 (0-0.7) k/uL Basophils # 0.1 (0-0.2) k/uL PT 9.8 (9.0-12.0) sec INR 0.9 (<1.2) APTT 25.0 (22.0-30.0) sec Sodium 134 L (137-145) mmol/L Potassium 4.2 (3.5-5.1) mmol/L Chloride 103 (98-107) mmol/L Carbon Dioxide 24 (22-30) mmol/L Anion Gap 7 mmol/L BUN 19 H (7-17) mg/dL Creatinine 0.84 (0.52-1.04) mg/dL Est GFR (CKD-EPI)AfAm 79 (>60 ml/min/1.73 sqM) Est GFR (CKD-EPI)NonAf 68 (>60 ml/min/1.73 sqM) Glucose 94 (74-99) mg/dL Plasma Lactic Acid Chris (0.7-2.0) mmol/L Calcium 9.0 (8.4-10.2) mg/dL Magnesium 1.9 (1.6-2.3) mg/dL Total Bilirubin <0.1 L (0.2-1.3) mg/dL AST 23 (14-36) U/L ALT 12 (4-34) U/L Alkaline Phosphatase 64 (38-126) U/L Troponin I (0.000-0.034) ng/mL NT-Pro-B Natriuret Pep pg/mL Total Protein 7.0 (6.3-8.2) g/dL Albumin 3.9 (3.5-5.0) g/dL Coronavirus (PCR) (Not Detectd) 05/17/21 05/17/21 05/17/21 Range/Units 17:46 17:46 17:46 WBC (3.8-10.6) k/uL RBC (3.80-5.40) m/uL Hgb (11.4-16.0) gm/dL Hct (34.0-46.0) % MCV (80.0-100.0) fL MCH (25.0-35.0) pg MCHC (31.0-37.0) g/dL RDW (11.5-15.5) % Plt Count (150-450) k/uL MPV Neutrophils % % Lymphocytes % % Monocytes % % Eosinophils % % Basophils % % Neutrophils # (1.3-7.7) k/uL Lymphocytes # (1.0-4.8) k/uL Monocytes # (0-1.0) k/uL Eosinophils # (0-0.7) k/uL Basophils # (0-0.2) k/uL PT (9.0-12.0) sec INR (<1.2) APTT (22.0-30.0) sec Sodium (137-145) mmol/L Potassium (3.5-5.1) mmol/L Chloride (98-107) mmol/L Carbon Dioxide (22-30) mmol/L Anion Gap mmol/L BUN (7-17) mg/dL Creatinine (0.52-1.04) mg/dL Est GFR (CKD-EPI)AfAm (>60 ml/min/1.73 sqM) Est GFR (CKD-EPI)NonAf (>60 ml/min/1.73 sqM) Glucose (74-99) mg/dL Plasma Lactic Acid Chris 0.9 (0.7-2.0) mmol/L Calcium (8.4-10.2) mg/dL Magnesium (1.6-2.3) mg/dL Total Bilirubin (0.2-1.3) mg/dL AST (14-36) U/L ALT (4-34) U/L Alkaline Phosphatase (38-126) U/L Troponin I <0.012 (0.000-0.034) ng/mL NT-Pro-B Natriuret Pep 926 pg/mL Total Protein (6.3-8.2) g/dL Albumin (3.5-5.0) g/dL Coronavirus (PCR) (Not Detectd) 05/17/21 Range/Units 18:30 WBC (3.8-10.6) k/uL RBC (3.80-5.40) m/uL Hgb (11.4-16.0) gm/dL Hct (34.0-46.0) % MCV (80.0-100.0) fL MCH (25.0-35.0) pg MCHC (31.0-37.0) g/dL RDW (11.5-15.5) % Plt Count (150-450) k/uL MPV Neutrophils % % Lymphocytes % % Monocytes % % Eosinophils % % Basophils % % Neutrophils # (1.3-7.7) k/uL Lymphocytes # (1.0-4.8) k/uL Monocytes # (0-1.0) k/uL Eosinophils # (0-0.7) k/uL Basophils # (0-0.2) k/uL PT (9.0-12.0) sec INR (<1.2) APTT (22.0-30.0) sec Sodium (137-145) mmol/L Potassium (3.5-5.1) mmol/L Chloride (98-107) mmol/L Carbon Dioxide (22-30) mmol/L Anion Gap mmol/L BUN (7-17) mg/dL Creatinine (0.52-1.04) mg/dL Est GFR (CKD-EPI)AfAm (>60 ml/min/1.73 sqM) Est GFR (CKD-EPI)NonAf (>60 ml/min/1.73 sqM) Glucose (74-99) mg/dL Plasma Lactic Acid Chris (0.7-2.0) mmol/L Calcium (8.4-10.2) mg/dL Magnesium (1.6-2.3) mg/dL Total Bilirubin (0.2-1.3) mg/dL AST (14-36) U/L ALT (4-34) U/L Alkaline Phosphatase (38-126) U/L Troponin I (0.000-0.034) ng/mL NT-Pro-B Natriuret Pep pg/mL Total Protein (6.3-8.2) g/dL Albumin (3.5-5.0) g/dL Coronavirus (PCR) Not Detected (Not Detectd) - EKG Data -: EKG Interpreted by Ct EKG shows normal: sinus rhythm Rate: normal EKG Comments: Ventricular rate 63 bpm, IA interval 172 ms, QRS duration 136 ms, QTC 446 ms, PRT axes 64/-30/95. Normal sinus rhythm with sinus arrhythmia, left axis deviation, left bundle branch block, abnormal ECG. Similar to previous studies. - Radiology Data Radiology results: report reviewed, image reviewed Chest x-ray: Normal chest. No adverse change. Disposition Clinical Impression: Upper respiratory infection Disposition: HOME SELF-CARE Condition: Stable Instructions (If sedation given, give patient instructions): Upper Respiratory Infection (ED) Additional Instructions: Please return to the Emergency Department if symptoms worsen or any other concerns. Follow-up with primary care in the next several days. Increase oral fluids, complaining rest. Is patient prescribed a controlled substance at d/c from ED?: No Referrals: Lucie Tesfaye MD [Primary Care Provider] - 1-2 days Time of Disposition: 19:10
[2021-05-17 19:36] VITALS: BP 183/87; PULSE 70; RESP 18; TEMP 97.5
== END 2021-05-17 19:36 | disposition home or self-care (01) ==
LOC: EC 16:53
DX: J06.9 Acute upper respiratory infection, unspecified (principal); I48.92 Unspecified atrial flutter; I50.9 Heart failure, unspecified; I25.2 Old myocardial infarction; Z79.01 Long term (current) use of anticoagulants; Z79.899 Other long term (current) drug therapy; Z82.49 Family history of ischemic heart disease and other diseases of the circulatory system; Z88.0 Allergy status to penicillin; Z88.1 Allergy status to other antibiotic agents; Z88.2 Allergy status to sulfonamides; Z88.5 Allergy status to narcotic agent; Z88.6 Allergy status to analgesic agent; Z88.8 Allergy status to other drugs, medicaments and biological substances
CPT/HCPCS: 36415; 71046; 80053; 83605; 83735; 83880; 84484; 85025; 85610; 85730; 87635; 93005; 96360; 99284

== ENCOUNTER → 2021-06-19 | Outpatient (CLI) | payer MEDICARE, BC ==
--- NOTE | 2021-06-21 19:32 | CT ---
EXAMINATION TYPE: CT angio abd aorta w/Runoff DATE OF EXAM: 06/19/2021 COMPARISON: 05/14/2020 HISTORY: 75-year-old female Right leg pain and loss of range of motion post heart cath. Right thigh h ematoma, S70.11XA. TECHNIQUE: Contiguous axial scanning of the abdomen and pelvis with bilateral lower extremity runoff performed with IV Contrast, patient injected with 125 mL of Isovue 370. Coronal/sagittal MIP reconstr uctions performed. 3-D reconstructions generated on a dedicated independent workstation. CT DLP: 1940 mGycm Automated exposure control for dose reduction was used. FINDINGS: The heart is mildly enlarged without pericardial effusion. Dependent atelectasis visualized right low er lobe. No pleural effusion. Arterial phase imaging of the liver shows a stable anterior left liver lobe cyst measuring 8 mm. Stab le prominence to the bile duct status post cholecystectomy. Adrenal glands, spleen, and pancreas with in normal limits. A couple renal cortical cysts on both sides measuring up to 2.9 cm on the right and 1.6 cm on the lef t. A few nonobstructive bilateral renal calculi are also present measuring up to 1.2 cm on the right. No dilated small bowel, free fluid, or free air. No mesenteric or retroperitoneal lymphadenopathy. There is mild stool burden. No pericolonic inflammatory change. Bladder is urine distended. Uterus surgically absent. There is a bilobed cystic lesion of the left ov sahara measuring up to 3.2 cm, unchanged. Pelvic ultrasound recommended for further characterization and to determine subsequent follow-up recommendations. No abnormal fluid collection in the pelvis or pel maia lymphadenopathy. The previous large hematoma that extended from the right internal region down the right side of the t high shows interval resolution but now with extensive subcutaneous soft tissue scarring with areas of curvilinear thickening and distortion. There is moderate focal stenosis origin of the celiac axis which appears similar. SMA origin is paten t. Mild atherosclerotic change of the origin of the bilateral renal arteries. Circumaortic left renal vein. The bilateral iliac, common femoral, deep femoral, superficial femoral arteries are patent. Assessment of the popliteal artery is limited at the level of the patient's total knee arthroplasties due to the extent of metal artifact. Trifurcation vessels are patent. Peroneal arteries are seen to just above the ankle. Vessels becomes diminutive at the midline level. Posterior tibial arteries are seen into the hindfoot. Runoff via the anterior tibial artery. Bones: Postsurgical changes of L3-S1 posterior lumbar fusion. There is also a right total arthroplast y and bilateral total knee arthroplasties. IMPRESSION: 1. RESOLUTION OF THE PREVIOUS RIGHT GROIN HEMATOMA WHICH HAD EXTENDED INTO THE ANTERIOR THIGH. THERE IS INTERVAL FORMATION OF EXTENSIVE SCARRING WITHIN THE SUBCUTANEOUS SOFT TISSUES. 2. TRIFURCATION VESSELS BECOMES DIMINUTIVE AT THE MID LEG LEVEL. POSTERIOR TIBIAL ARTERY IS SEEN INTO THE HINDFOOT. THE PERONEAL ARTERIES ARE SEEN TO JUST ABOVE THE ANKLE. RUNOFF VIA THE ANTERIOR TIBIAL ARTERIES. 3. 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 ARTERIAL ASSES SMENT LIMITED AT THE LEVEL OF THE PATIENT'S BILATERAL TOTAL KNEE ARTHROPLASTIES DUE TO EXTENSIVE META L ARTIFACT. OTHERWISE, THERE ARTERIAL VASCULATURE APPEARS PATENT.
== END | disposition home or self-care (01) ==
LOC: RADCTMAIN 13:26
PROVIDERS: ATTEND Surgery
DX: S70.11XA Contusion of right thigh, initial encounter (principal); I70.203 Unspecified atherosclerosis of native arteries of extremities, bilateral legs; Z96.653 Presence of artificial knee joint, bilateral
CPT/HCPCS: 82565; 84520; 75635; 36415; Q9967

== ENCOUNTER → 2021-07-01 | Outpatient (CLI) | payer MEDICARE, BC ==
--- NOTE | 2021-07-01 18:33 | CT ---
EXAMINATION TYPE: CT brain wo con DATE OF EXAM: 07/01/2021 COMPARISON: 06/18/2018 INDICATION: Headache and dizziness x 1 year with vision changes. DLP: 1219 mGycm, Automated exposure control for dose reduction was used. CONTRAST: None CT of the brain is performed utilizing 3 mm thick sections through the posterior fossa and 3 mm thick sections through the remaining calvarium. Study is performed within 24 hours of arrival to the hosp ital. No abnormal hyperdensity is present to suggest an acute intracranial hemorrhage. No mass lesion is evident. No acute infarcts are evident. Mild periventricular white matter hypodensity is present, likely on th e basis of chronic white matter ischemic changes. Ventricles and sulci are appropriate for the patient age. Paranasal sinuses and mastoid air cells within the [id number] are clear. IMPRESSIONS: 1. Mild periventricular white matter ischemic-type changes. 2. No acute intracranial process.
== END | disposition home or self-care (01) ==
LOC: RADCTMAIN 13:04
PROVIDERS: ATTEND Family Medicine
DX: I67.82 Cerebral ischemia (principal)
CPT/HCPCS: 70450

== ENCOUNTER → 2021-08-18 | Outpatient (CLI) | payer MEDICARE, BC ==
[2021-08-18 19:16] LABS: INR >9.00 (0.90-1.11); Prothrombin Time 88.1 sec (9.9-11.9)
== END | disposition home or self-care (01) ==
LOC: LABWHC1 13:11
PROVIDERS: ATTEND Internal Medicine Interventional Cardiology
DX: I48.0 Paroxysmal atrial fibrillation (principal)
CPT/HCPCS: 36415; 85610

== ENCOUNTER → 2021-09-10 | Outpatient (CLI) | payer MEDICARE, BC ==
[2021-09-10 20:08] LABS: HCT 34.9 % (37.2-46.3); HGB 10.7 g/dL (12.0-15.0); MCHC 30.7 g/dL (32.0-37.0); MCV 97.8 fL (80.0-97.0); Mean Platelet Volume 10.1 fL (9.5-12.2); Platelet Count 327 X 10*3/uL (140-440); RBC 3.57 X 10*6/uL (4.10-5.20); RDW 15.3 % (11.5-14.5)
[2021-09-11 00:18] LABS: African American GFR (CKD) 63.4 (60.0-200.0); Anion Gap 12.2 mmol/L (4.00-12.00); BUN/Creat Ratio 17.8 Ratio (12.00-20.00); Blood Urea Nitrogen 17.8 mg/dL (9.0-27.0); Calcium 8.4 mg/dL (8.7-10.3); Carbon Dioxide 17.8 mmol/L (21.6-31.8); Non-African American GFR(CKD) 54.7 (60.0-200.0); Potassium 4.6 mmol/L (3.5-5.5)
== END | disposition home or self-care (01) ==
LOC: LABWHC1 13:44
PROVIDERS: ATTEND Internal Medicine Interventional Cardiology
DX: N18.9 Chronic kidney disease, unspecified (principal)
CPT/HCPCS: 36415; 80048; 85027

== ENCOUNTER 2021-12-03 11:12 | Day surgery (SDC) | payer MEDICARE, BC ==
[2021-12-02 09:15] VITALS: BMI 31.7
[~2021-12-03 11:12] MED LIST changes: -ACETAMINOPHEN TAB 500 MG TAB PO PRN; +ALBUTEROL NEB (CONC) 2.5 MG/0.5 ML INHALATION ONE; -CLINDAMYCIN 900 MG in DEXTROSE 5% IN WATER 50 ML IVPB PRN; -GABAPENTIN 300 MG CAP PO PRN; -HYDROmorphone 0.5 MG/0.5 ML SYRINGE IVP PRN; +LACTATED RINGERS 1,000 ML IV SCH; +LIDOCAINE 1% (10MG/ML) FOR IV START INTRADERMA PRN; +LIDOCAINE 2% (PF) 20 MG/ML 5 ML VIAL INHALATION ONE; +LIDOCAINE VISCOUS 300 MG/15 ML CUP MUCOUS MEM ONE; -MELOXICAM 7.5 MG TAB PO PRN; -ONDANSETRON 4 MG/2 ML VIAL IVP ONE; -ROPIVACAINE 246.25 MG, EPINEPHrine 0.5 MG, KETOROLAC 30 MG, cloNIDine HCL/PF 80 MCG, WA... MISCELLANE PRN; -TRANEXAMIC ACID 1,000 MG in SODIUM CHLORIDE 0.9% 100 ML IVPB PRN; -fentaNYL (PF) 50 MCG/ML 2 ML AMP IV PRN
[2021-12-03] MEDS ORDERED: hydrALAZINE HCL 20 MG/ML 1 ML VIAL IVP ONE ×2 (11:56→13:45)
[2021-12-03] MEDS ORDERED: PROPOFOL 10 MG/ML 20 ML VIAL IV ONE (12:09)
[2021-12-03] MEDS ORDERED: KETAMINE 10 MG/ML 20 ML VIAL ONE (12:09)
[2021-12-03] MEDS ORDERED: fentaNYL (PF) 50 MCG/ML 2 ML AMP ONE (12:09)
[2021-12-03] MEDS ORDERED: GLYCOPYRROLATE 0.2 MG/ML 2 ML VIAL ONE (12:09)
[2021-12-03] MEDS ORDERED: LIDOCAINE 1% INJ 10MG/ML (20 ML MDV) ONE (12:09)
[2021-12-03] MEDS ORDERED: MIDAZOLAM 2 MG/2 ML VIAL ONE (12:09)
[2021-12-03] MEDS ORDERED: LIDOCAINE 2% INJ 20 MG/ML INTRATRACH ONE (12:27)
--- NOTE | 2021-12-03 12:38 | P.PCN ---
Date of Procedure: 12/03/21 Preoperative Diagnosis: Chronic cough Postoperative Diagnosis: Chronic cough Procedure(s) Performed: Flexible Bronchoscopy, BAL of the lingula Anesthesia: MATT Surgeon: Rebecca Bajwa Estimated Blood Loss (ml): 0 Pathology: other Condition: stable Disposition: same day Operative Findings: PROCEDURE TECHNIQUE: Flexible bronchoscopy: A physical exam was performed and an informed consent was obtained from the patient after explaining the risks, (pneumothorax, life threatening bleeding, infection and adverse effects due to medications) benefits and alternatives to the procedure which the patient appeared to understand and so stated. The patient was connected to the monitoring devices. Continuous oxygen was provided with a nasal cannula and IV medicine administered through an indwelling IV catheter. Lidocaine 2%, viscous lidocaine, Propofol, Ketamine, Versed and Fentanyl) anesthesia and conscious sedation. The bronchoscope was inserted and the airway examined. The flexible bronchoscope was advanced through the left moved into the posterior oropharynx, and then larynx. Upper airway structures were inspected. The pharynx and larynx were within normal limits. Epiglottis was identified and was within normal limits. Vallecula was free of any disease or abnormalities. Arytenoids were inspected and there were normal. The vocal cords were normal and there was normal abduction and adduction. No vocal cord lesions or polyps or erythema or any foreign bodies or tumors. A total of 2 mL of 1% lidocaine was applied to the vocal cords and following that the bronchoscope was advanced into the upper trachea and an examination of the entire airway was done. Exam ination was essentially within normal limits. The visualized airways including the trachea, pia, bilateral mainstem bronchi, right lung involving the right upper lobe bronchus, bronchus intermedius, right middle lobe and right lower lobe bronchus and the various 10 segments on the right in addition to the examination of the left mainstem bronchus, left upper lobe bronchus left lower lobe bronchus in the lingular segment and addition to 8 segments on the left. Airways were essentially within normal limits. Bronchoscope was worse to the severe segment of the lingula and the bronchioloalveolar lavage was done. A total of a disease of fluid was infused and 20 mL was aspirated. No mucosal irregularities. No foreign bodies. No tumors. No polyps. No lesions. Note that during the course of the bronchoscopy and while on the sedation, the patient had absolutely no cough. Bronchoscope was removed and as the patient recovered from her sedation, her cough recurred and she is constantly coughing at this point in time. In my opinion, this patient's current rhythm explained. Could be psychogenic. Lavage of the left upper lobe was done. Awaiting final cultures. We'll proceed with a CAT scan of the chest. May consider hospitalization for inpatient bronchodilators and steroids if she continues to cough. For now, the patient is being transferred to recovery. No oxygen desaturation. Hemodynamically stable.
[2021-12-03] MEDS ORDERED: LORazepam 2 MG/ML INJ IV PRN (13:04)
[2021-12-03] MEDS ORDERED: ACETAMINOPHEN TAB 325 MG TAB PO PRN (13:30)
[2021-12-03] MEDS ORDERED: ALPRAZolam 0.5 MG TAB PO PRN (13:34)
--- NOTE | 2021-12-03 13:34 | P.CNPUL ---
History of Present Illness Consult date: 12/03/21 Requesting physician: Alejandra Gilliam Reason for consult: cough Chief complaint: Chronic cough History of present illness: This is a very pleasant 76-year-old female patient with a known history of basal cell carcinoma, chronic back pain, osteoporosis, nonobstructive coronary artery disease, osteoarthritis, rheumatoid arthritis, gastroesophageal reflux disease, hypertension, mild intermittent bronchial asthma. She also has a significant history of chronic cough and she follows with Dr. Bajwa in our office for the same. She has had an extensive workup regarding a chronic cough. The exact etiology remains unclear. She had a similar episode back in 2019 that subsequently resolved over the past couple of years. She is on Neeta G 11. 2 rounds of prednisone. DuoNeb inhalations around the clock. Promethazine with codeine. Chest x-ray was normal. Previous IgE level was negative. Acid reflux controlled with Protonix. CAT scan from 1999 1018 was negative. She was brought in today for an outpatient bronchoscopy and BAL. Prior to the procedure she continued to have a chronic cough. Once sedated her cough subsided. During the procedure no coughing at all. Following the procedure she started coughing again which has been pretty much nonstop since the procedure. She is seen in consultation in the recovery room. She is sitting up on the stretcher. Her cough is nonproductive. It's dry. She is not bronchospastic or wheezing. Lungs are clear. O2 saturation 97% on room air. She will be admitted to observation unit and has been given 1 mg of Ativan. If her cough settles down and she would benefit from a high-resolution computed tomography scan of the chest. May also consider trial of Neurontin. Review of Systems REVIEW OF SYSTEMS: CONSTITUTIONAL: Denies any recent significant weight loss or weight gain. EYES: Denies change in vision. EARS, NOSE, MOUTH, THROAT: Denies headaches, denies sore throat. CARDIOVASCULAR: Denies chest pain, palpitations or syncopal episodes. RESPIRATORY: Positive for dry nonproductive cough, persistent. No congestion or hemoptysis. GASTROINTESTINAL: Denies change in appetite, denies abdominal pain GENITOURINARY: Denies hematuria, denies infections. MUSKULOSKELETAL: Denies pain, denies swelling. INTEGUMENTARY: Denies rash, denies eczema. NEUROLOGICAL: Denies recent memory loss, no recent seizure activity. PSYCHIATRIC: Denies anxiety, denies depression. HEMATOLOGIC/LYMPHATIC: Denies anemia, denies enlarged lymph nodes. Past Medical History Past Medical History: Atrial Flutter, Asthma, Cancer, COPD, GERD/Reflux, GI Bleed, Hypertension, Memory Impairment, Myocardial Infarction ([place]), Osteoarthritis ([place]) Additional Past Medical History / Comment(s): Chronic cough. Back pain, migraines. Occasional slight difficulty with swallowing. 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 Hx kidney stones, "kidney function low". Last Myocardial Infarction Date:: 2012 History of Any Multi-Drug Resistant Organisms: None Reported Past Surgical History: Back Surgery, Cholecystectomy, Heart Catheterization, Hysterectomy, Joint Replacement, Orthopedic Surgery Additional Past Surgical History / Comment(s): RODS & CAGES IN BACK, RIGHT HIP REPLACEMENT, PARTIAL THYROIDECTOMY, BILATERAL KNEE REPLACEMENTS, NECK SURGERY WITH LIDIA AND CAGES, MELANOMA REMOVED FROM FACE X2, REPAIR OF HEMATOMA/FEMORAL ARTERY AFTER HEART CATHETERIZATION. Past Anesthesia/Blood Transfusion Reactions: Previous Problems w/ Anesthesia, Motion Sickness, Postoperative Nausea & Vomiting (PONV) Additional Past Anesthesia/Blood Transfusion Reaction / Comment(s): Hard to wake up. Past Psychological History: Depression Smoking Status: Never smoker Past Alcohol Use History: None Reported Past Drug Use History: None Reported - Past Family History Sister(s) Family Medical History: Cancer Brother(s) Family Medical History: Cancer Mother Family Medical History: Myocardial Infarction ([place]) Additional Family Medical History / Comment(s): Mother of a [place] at the age of 76yrs. Father History Unknown: Yes Medications and Allergies Home Medications Medication Instructions Recorded Confirmed Type Estradiol [Estrace] 2 mg PO DAILY 05/14/14 12/02/21 History Pantoprazole Sodium [Protonix] 40 mg PO BID 05/14/14 12/02/21 History Albuterol Nebulized [Ventolin 2.5 mg INHALATION RT-QID PRN 08/16/18 12/02/21 History Nebulized] Ipratropium Nebulized [Atrovent 0.5 mg INHALATION RT-QID PRN 11/13/18 12/02/21 History Nebulized 0.2 MG/ML] DULoxetine HCL [Cymbalta] 60 mg PO DAILY 10/06/19 12/02/21 History Albuterol Sulfate [Ventolin HFA] 1 - 2 puff INHALATION RT-Q6H PRN 10/29/19 12/02/21 History Acetaminophen [Tylenol Arthritis] 650 mg PO DAILY PRN 05/02/20 12/02/21 History Glucosam/Chond/Hyalu/Cf Borate 1 tab PO DAILY 05/02/20 12/03/21 History [Move Free Joint Health Tablet] Lysine 500 mg PO DAILY #0 05/02/20 12/02/21 History Nadolol [Corgard] 40 mg PO QAM 05/02/20 12/02/21 History Pregabalin [Lyrica] 75 mg PO BID #14 cap 05/24/20 12/02/21 Rx Rivaroxaban [Xarelto] 20 mg PO DAILY 12/02/21 12/03/21 History Allergies Allergy/AdvReac Type Severity Reaction Status Date / Time cephalexin monohydrate Allergy HIVES Verified 12/03/21 11:32 [From Keflex] diphenhydramine HCl Allergy SWELLING Verified 12/03/21 11:32 [From Benadryl] OF TONGUE, SOB enoxaparin [From Lovenox] Allergy Rash/Hives Verified 12/03/21 11:32 Penicillins Allergy SWELLING, Verified 12/03/21 11:32 HIVES aspirin AdvReac EXCESS Verified 12/03/21 11:32 BLEEDING morphine AdvReac Vomiting Verified 12/03/21 11:32 sulfamethoxazole AdvReac Nausea & Verified 12/03/21 11:32 [From Bactrim] Vomiting trimethoprim [From Bactrim] AdvReac Nausea & Verified 12/03/21 11:32 Vomiting Physical Exam Vitals: Vital Signs Temp Pulse Resp BP Pulse Ox 12/03/21 12:55 99 20 208/90 98 12/03/21 12:40 99 20 191/83 97 12/03/21 11:56 89 18 219/95 94 L 12/03/21 11:35 97.1 F L 82 16 217/88 94 L Intake and Output 12/02/21 12/03/21 12/03/21 22:59 06:59 14:59 Intake Total 200 Balance 200 Intake: IV 200 Other: Weight 86.8 kg GENERAL EXAM: Alert, pleasant 76-year-old female patient, on room air oxygen, persistent cough currently, in no respiratory distress. HEAD: Normocephalic. EYES: Normal reaction of pupils, equal size. NOSE: Clear with pink turbinates. THROAT: No erythema or exudates. NECK: No masses, no JVD. CHEST: No chest wall deformity. LUNGS: Equal air entry with no crackles, wheeze, rhonchi or dullness. CVS: S1 and S2 normal with no audible murmur, regular rhythm. ABDOMEN: No hepatosplenomegaly, normal bowel sounds, no guarding or rigidity. SPINE: No scoliosis or deformity SKIN: No rashes CENTRAL NERVOUS SYSTEM: No focal deficits, tone is normal in all 4 extremities. EXTREMITIES: There is no peripheral edema. No clubbing, no cyanosis. Peripheral pulses are intact. Assessment and Plan Assessment: 1 Acute on chronic cough. Persistent. She has been trialed on 2 rounds of prednisone in the outpatient setting without much improvement. She has been trialed on trial a G and DuoNeb inhalations around the collar. Placed on promethazine with codeine without much improvement. Her IgE level was negative. Her acid reflux is controlled with Protonix. CAT scan from 2019 was negative. Bronchoscopy performed today revealed no oral, vocal cord or endobronchial abnormalities. She did not cough while sedated at all. Her cough resumed quite persistently following the procedure. Consider psychogenic in nature. 2 History of chronic cough in 2019 3 Gastroesophageal reflux disease under good control with Protonix 4 Hypertension 5 Cholelithiasis without obstruction 6 History of urinary calculi 7 Nonobstructive coronary artery disease 8 Osteoarthritis 9 History of peptic ulcer 10 Chronic back pain Plan: The patient was seen and evaluated We'll admit for 23 hour observation Utilize Ativan/Xanax Consider Neurontin Continue promethazine Trial IV Solu-Medrol High-resolution computed tomography scan of the chest if able to tolerate We will continue to follow and make further recommendations based on her clinical status I, the cosigning physician, performed a history & physical examination of the patient. Lungs sounds are clear. Maintaining good O2 saturations in the 90s on room air. I discussed the assessment and plan of care with my nurse practitioner, Norma Briceno. I attest to the above and consultation as dictated by her. Time with Patient: Greater than 30
[2021-12-03] MEDS ORDERED: guaiFENesin-Coden 100-10MG/5ML 10 ML CUP PO PRN (13:35)
--- NOTE | 2021-12-03 13:43 | P.HPIM ---
History of Present Illness Patient was on 76-year-old female is being admitted after bronchoscopy for intractable cough. Patient has a long history of intractable cough patient was extensively evaluated as an outpatient pulmonary clinic. Patient was on Protonix for gastroesophageal reflux disease contributing to cough patient has been off the WILL inhibitor for many years., Patient was treated with steroids for cough variant asthma, steroids did help her in the past a bit. Patient had computed tomography scan in 2019 which was negative which didn't show any significant abnormality. Patient had IgG levels as an outpatient which were within normal limits patient underwent bronchoscopy with bronchial will BE WATCH TODAY. I was asked to admit this patient because of uncontrollable cough. Patient also is also whenever she sleeps and whenever she is drowsy patient was given Ativan, Protonix as an and codeine-based medications which did help her s leep. So far etiology of this chronic cough is not clear. Patient is not wheezing not bronchospastic. REVIEW OF SYSTEMS: CONSTITUTIONAL: No fever, no malaise, no fatigue. HEENT: No recent visual problems or hearing problems. Denied any sore throat. CARDIOVASCULAR: No chest pain, orthopnea, PND, no palpitations, no syncope. PULMONARY: No shortness of breath, no hemoptysis. GASTROINTESTINAL: No diarrhea, no nausea, no vomiting, no abdominal pain. NEUROLOGICAL: No headaches, no weakness, no numbness. HEMATOLOGICAL: Denies any bleeding or petechiae. GENITOURINARY: Denies any burning micturition, frequency, or urgency. MUSCULOSKELETAL/RHEUMATOLOGICAL: Denies any joint pain, swelling, or any muscle pain. ENDOCRINE: Denies any polyuria or polydipsia. The rest of the 14-point review of systems is negative. PHYSICAL EXAMINATION: GENERAL: The patient is alert and oriented x3, not in any acute distress. Well developed, well nourished. Continuous intractable cough. HEENT: Pupils are round and equally reacting to light. EOMI. No scleral icterus. No conjunctival pallor. Normocephalic, atraumatic. No pharyngeal erythema. No thyromegaly. CARDIOVASCULAR: S1 and S2 present. No murmurs, rubs, or gallops. PULMONARY: Chest is clear to auscultation, no wheezing or crackles. ABDOMEN: Soft, nontender, nondistended, normoactive bowel sounds. No palpable organomegaly. MUSCULOSKELETAL: No joint swelling or deformity. EXTREMITIES: No cyanosis, clubbing, or pedal edema. NEUROLOGICAL: Gross neurological examination did not reveal any focal deficits. SKIN: No rashes. Assessment and plan -Chronic cough: Patient underwent extensive evaluation as mentioned above since his steroids have been in the past patient was started on systemic steroids along with the Protonix twice a day. And Lidex may not be beneficial at this time patient doesn't have any evidence of pneumonia or any other respiratory infection at this time. Doesn't have sinusitis. Etiology of this chronic cough is not clear. There may be a psychogenic competent. We will further review the literature. -Neuropathy for which patient is on Cymbalta which will be continued -Coronary artery disease with cardiac catheterization and stenting in 2014 -Rheumatoid arthritis and osteoarthritis -Gastroesophageal reflux disease for which patient is on Protonix although patient doesn't have active disease right now does not causing her cough -Hypertension: Patient's blood pressure is uncontrolled because of her cough. -History of atrial fibrillation on anticoagulation which will be continued DVT prophylaxis: On anticoagulation Past Medical History Past Medical History: Atrial Flutter, Asthma, Cancer, COPD, GERD/Reflux, GI Bleed, Hypertension, Memory Impairment, Myocardial Infarction ([place]), Osteoarthritis (OA) Additional Past Medical History / Comment(s): Chronic cough. Back pain, migraines. Occasional slight difficulty with swallowing. 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 Hx kidney stones, "kidney function low". Last Myocardial Infarction Date:: 2012 History of Any Multi-Drug Resistant Organisms: None Reported Past Surgical History: Back Surgery, Cholecystectomy, Heart Catheterization, Hysterectomy, Joint Replacement, Orthopedic Surgery Additional Past Surgical History / Comment(s): RODS & CAGES IN BACK, RIGHT HIP REPLACEMENT, PARTIAL THYROIDECTOMY, BILATERAL KNEE REPLACEMENTS, NECK SURGERY WITH LIDIA AND CAGES, MELANOMA REMOVED FROM FACE X2, REPAIR OF HEMATOMA/FEMORAL ARTERY AFTER HEART CATHETERIZATION. Past Anesthesia/Blood Transfusion Reactions: Previous Problems w/ Anesthesia, Motion Sickness, Postoperative Nausea & Vomiting (PONV) Additional Past Anesthesia/Blood Transfusion Reaction / Comment(s): Hard to wake up. Past Psychological History: Depression Smoking Status: Never smoker Past Alcohol Use History: None Reported Past Drug Use History: None Reported - Past Family History Sister(s) Family Medical History: Cancer Brother(s) Family Medical History: Cancer Mother Family Medical History: Myocardial Infarction ([place]) Additional Family Medical History / Comment(s): Mother of a [place] at the age of 76yrs. Father History Unknown: Yes Medications and Allergies Home Medications Medication Instructions Recorded Confirmed Type Estradiol [Estrace] 2 mg PO DAILY 05/14/14 12/02/21 History Pantoprazole Sodium [Protonix] 40 mg PO BID 05/14/14 12/02/21 History Albuterol Nebulized [Ventolin 2.5 mg INHALATION RT-QID PRN 08/16/18 12/02/21 History Nebulized] Ipratropium Nebulized [Atrovent 0.5 mg INHALATION RT-QID PRN 11/13/18 12/02/21 History Nebulized 0.2 MG/ML] DULoxetine HCL [Cymbalta] 60 mg PO DAILY 10/06/19 12/02/21 History Albuterol Sulfate [Ventolin HFA] 1 - 2 puff INHALATION RT-Q6H PRN 10/29/19 12/02/21 History Acetaminophen [Tylenol Arthritis] 650 mg PO DAILY PRN 05/02/20 12/02/21 History Glucosam/Chond/Hyalu/Cf Borate 1 tab PO DAILY 05/02/20 12/03/21 History [Move Free Joint Health Tablet] Lysine 500 mg PO DAILY #0 05/02/20 12/02/21 History Nadolol [Corgard] 40 mg PO QAM 05/02/20 12/02/21 History Pregabalin [Lyrica] 75 mg PO BID #14 cap 05/24/20 12/02/21 Rx Rivaroxaban [Xarelto] 20 mg PO DAILY 12/02/21 12/03/21 History Allergies Allergy/AdvReac Type Severity Reaction Status Date / Time cephalexin monohydrate Allergy HIVES Verified 12/03/21 11:32 [From Keflex] diphenhydramine HCl Allergy SWELLING Verified 12/03/21 11:32 [From Benadryl] OF TONGUE, SOB enoxaparin [From Lovenox] Allergy Rash/Hives Verified 12/03/21 11:32 Penicillins Allergy SWELLING, Verified 12/03/21 11:32 HIVES aspirin AdvReac EXCESS Verified 12/03/21 11:32 BLEEDING morphine AdvReac Vomiting Verified 12/03/21 11:32 sulfamethoxazole AdvReac Nausea & Verified 12/03/21 11:32 [From Bactrim] Vomiting trimethoprim [From Bactrim] AdvReac Nausea & Verified 12/03/21 11:32 Vomiting Physical Exam Vitals: Vital Signs Temp Pulse Resp BP Pulse Ox 12/03/21 12:55 99 20 208/90 98 12/03/21 12:40 99 20 191/83 97 12/03/21 11:56 89 18 219/95 94 L 12/03/21 11:35 97.1 F L 82 16 217/88 94 L Intake and Output 12/02/21 12/03/21 12/03/21 22:59 06:59 14:59 Intake Total 200 Balance 200 Intake: IV 200 Other: Weight 86.8 kg
[2021-12-03] MEDS ORDERED: hydrALAZINE HCL 20 MG/ML 1 ML VIAL ONE (13:49)
[2021-12-03 14:56] VITALS: RESP 18
[2021-12-03] MEDS: methylPREDNISolone SOD SUCCI 40 MG/ML 1 ML VIAL IV SCH ×2 (16:44→20:16)
[2021-12-03] MEDS: ALBUTEROL NEBULIZED 2.5 MG/3 ML INHALATION PRN (16:58)
[2021-12-03] MEDS: PANTOPRAZOLE 40 MG TABLET PO SCH (17:00)
[2021-12-03] MEDS ORDERED: ONDANSETRON 4 MG/2 ML VIAL IVP PRN (18:47)
[2021-12-04 07:33] VITALS: BP 149/72; TEMP 97.8
[2021-12-04] MEDS: ALBUTEROL NEBULIZED 2.5 MG/3 ML INHALATION PRN (07:42)
[2021-12-04 07:52] VITALS: PULSE 70
[2021-12-04] MEDS: methylPREDNISolone SOD SUCCI 40 MG/ML 1 ML VIAL IV SCH (08:22)
[2021-12-04] MEDS: PANTOPRAZOLE 40 MG TABLET PO SCH (08:22)
[2021-12-04] MEDS ORDERED: DULoxetine HCL 60 MG CAPSULE.DR PO SCH (09:00)
[2021-12-04] MEDS ORDERED: ESTRADIOL 2 MG PO SCH (09:00)
[2021-12-04] MEDS ORDERED: RIVAROXABAN 20 MG TAB PO SCH (09:00)
--- NOTE | 2021-12-04 12:25 | P.PN ---
Subjective Progress Note Date: 12/04/21 Principal diagnosis: Chronic cough, improved This is a very pleasant 76-year-old female patient with a known history of basal cell carcinoma, chronic back pain, osteoporosis, nonobstructive coronary artery disease, osteoarthritis, rheumatoid arthritis, gastroesophageal reflux d isease, hypertension, mild intermittent bronchial asthma. She also has a significant history of chronic cough and she follows with Dr. Bajwa in our office for the same. She has had an extensive workup regarding a chronic cough. The exact etiology remains unclear. She had a similar episode back in 2019 that subsequently resolved over the past couple of years. She is on Neeta G 11. 2 rounds of prednisone. DuoNeb inhalations around the clock. Promethazine with codeine. Chest x-ray was normal. Previous IgE level was negative. Acid reflux controlled with Protonix. CAT scan from 1999 1018 was negative. She was brought in today for an outpatient bronchoscopy and BAL. Prior to the procedure she continued to have a chronic cough. Once sedated her cough subsided. During the procedure no coughing at all. Following the procedure she started coughing again which has been pretty much nonstop since the procedure. She is seen in consultation in the recovery room. She is sitting up on the stretcher. Her cough is nonproductive. It's dry. She is not bronchospastic or wheezing. Lungs are clear. O2 saturation 97% on room air. She will be admitted to observation unit and has been given 1 mg of Ativan. If her cough settles down and she would benefit from a high-resolution computed tomography scan of the chest. May also consider trial of Neurontin. On 12/04/2021 patient seen in follow-up on medical surgical floor, she is breathing comfortably, no cough this morning, she slept comfortably, lung sounds are clear to auscultation, but signs have been stable, room air pulse ox is 94- 97%, hemodynamically she has remained stable. No complaints of chest discomfort, no fever or chills. Patient is status post bronchoscopy and BAL of the lingula, and the inspection of the airways were essentially within normal limits. BAL of the lingula was taken. Patient was admitted for overnight observation, she was treated with IV steroids. Solu-Medrol 40 mg every 12 hours, Robitussin-AC cough syrup, nebulized bronchodilators, lorazepam, and her condition and cough significantly improved. Bronchial wash cultures are pending, Gram stain showing no PMNs and no organisms thus far. Objective - Vital Signs Vital signs: Vital Signs Temp 97.8 F 12/04/21 07:00 Pulse 70 12/04/21 07:52 Resp 18 12/04/21 07:00 BP 149/72 12/04/21 07:00 Pulse Ox 94 L 12/04/21 07:00 Intake & Output 12/03/21 12/04/21 12/04/21 18:59 06:59 18:59 Intake Total 750 Output Total 1 1 Balance 749 -1 Weight 86.8 kg Intake: IV 500 Oral 250 Output: Emesis 1 1 Other: Voiding Method Toilet Toilet # Voids 1 1 # Emeses 1 - Exam GENERAL EXAM: Alert, very pleasant, 76-year-old white female on room air with pulse ox of 94-97% comfortable in no apparent distress. HEAD: Normocephalic/atraumatic. EYES: Normal reaction of pupils, equal size. Conjunctiva pink, sclera white. NOSE: Clear with pink turbinates. THROAT: No erythema or exudates. NECK: No masses, no JVD, no thyroid enlargement, no adenopathy. CHEST: No chest wall deformity. Symmetrical expansion. LUNGS: Equal air entry with no crackles, wheeze, rhonchi or dullness. CVS: Regular rate and rhythm, normal S1 and S2, no gallops, no murmurs, no rubs ABDOMEN: Soft, nontender. No hepatosplenomegaly, normal bowel sounds, no guarding or rigidity. EXTREMITIES: No clubbing, no edema, no cyanosis, 2+ pulses and upper and lower extremities. MUSCULOSKELETAL: Muscle strength and tone normal. SPINE: No scoliosis or deformity SKIN: No rashes CENTRAL NERVOUS SYSTEM: Alert and oriented -3. No focal deficits, tone is normal in all 4 extremities. PSYCHIATRIC: Alert and oriented -3. Appropriate affect. Intact judgment and insight. - Labs Labs: Microbiology - Last 24 Hours (Table) 12/03/21 12:25 Gram Stain - Preliminary Bronchial Washings - Random Bronchial Washings Culture - Preliminary 12/03/21 12:25 Fungal Culture - Preliminary Bronchial Washings - Random 12/03/21 12:25 Acid Fast Bacilli Culture - Preliminary Bronchial Washings - Random Assessment and Plan Plan: Assessment: #1. Acute on chronic cough. Persistent. She has been trialed on 2 rounds of prednisone in the outpatient setting without much improvement. She has been trialed on trial a G and DuoNeb inhalations around the collar. Placed on promethazine with codeine without much improvement. Her IgE level was negative. Her acid reflux is controlled with Protonix. CAT scan from 2019 was negative. Bronchoscopy performed today revealed no oral, vocal cord or endobronchial a bnormalities. She did not cough while sedated at all. Her cough resumed quite persistently following the procedure. Consider psychogenic in nature. #2. History of chronic cough in 2019 #3. Gastroesophageal reflux disease under good control with Protonix #4. Hypertension #5. Cholelithiasis without obstruction #6. History of urinary calculi #7. Nonobstructive coronary artery disease #8. Osteoarthritis #9. History of peptic ulcer #10. Chronic back pain Plan: Her cough has significantly improved She has had no acute events overnight BAL cultures have shown no growth thus far Vital signs have been stable Stable for discharge home today Outpatient follow-up with Dr. Bajwa in the office in one week I performed a history & physical examination of the patient and discussed their management with my nurse practitioner, Roxane Green. I reviewed the nurse practitioner's note and agree with the documented findings and plan of care. Lung sounds are positive for dim breath sounds throughout the lung ren. The findings and the impression was discussed with the patient. I attest to the documentation by the nurse practitioner. Time with Patient: Less than 30
--- NOTE | 2021-12-04 13:23 | P.DS ---
Providers Expected date of discharge: 12/04/21 Attending physician: Alejandra Gilliam Primary care physician: Marla Aguayo [facility] Course: Final diagnosis -Chronic cough: Etiology of this chronic cough is not clear. There may be a psychogenic component. -Status post bronchoscopy with BAL -Neuropathy -Coronary artery disease with cardiac catheterization and stenting in 2013 -Rheumatoid arthritis and osteoarthritis -Gastroesophageal reflux disease -Hypertension -History of atrial fibrillation on anticoagulation of Xarelto -DVT prophylaxis Discharge disposition Patient is being discharged in a stable condition with guarded prognosis to home. Patient will follow-up with Dr. Aguayo in the outpatient setting upon discharge. Patient is to also follow-up with Dr. Bajwa as scheduled. Total time taken is greater than 35 minutes. Hospital course This is a 76-year-old female who was admitted an outpatient basis for bronchoscopy with Dr. Bajwa and continue to have coughing and was brought in under observation to monitor overnight with potential discharge in the morning. Patient states she feels better and would like to go home patient denies any worsening cough and states his cough has been chronic for over 4 months and has been following with pulmonary the outpatient setting. Patient encouraged to follow-up with primary care provider and continue current medications and also follow-up with Dr. Bajwa in the outpatient setting for results and follow-up. Patient to continue with her updrafts and states she has them at home. Currently no reports of chest pain, shortness of breath, or palpitations. Patient is afebrile. No reports of nausea or vomiting and patient is tolerating diet. Patient will be discharged home today. PHYSICAL EXAMINATION: GENERAL: The patient is alert and oriented x3, not in any acute distress. Well developed, well nourished. Temp is 97.8F, pulse is 68, respirations are 18, blood pressure is 149/72, oxygen saturation is 94% on room air HEENT: Pupils are round and equally reacting to light. EOMI. No scleral icterus. No conjunctival pallor. Normocephalic, atraumatic. No pharyngeal erythema. No thyromegaly. CARDIOVASCULAR: S1 and S2 muffled PULMONARY: Diminished breath sounds bilaterally with no wheezing or rhonchi noted ABDOMEN: Soft, nontender, nondistended, normoactive bowel sounds. No palpable organomegaly. MUSCULOSKELETAL: No joint swelling or deformity. EXTREMITIES: No cyanosis, clubbing, or pedal edema. NEUROLOGICAL: Gross neurological examination did not reveal any focal deficits. SKIN: No rashes. Please refer to medication reconciliation sheet for a list of medications. Patient Condition at Discharge: Stable Plan - Discharge Summary Discharge Rx Participant: Yes New Discharge Prescriptions: Continue Pantoprazole Sodium [Protonix] 40 mg PO BID Estradiol [Estrace] 2 mg PO DAILY Albuterol Nebulized [Ventolin Nebulized] 2.5 mg INHALATION RT-QID PRN PRN Reason: Shortness Of Breath Ipratropium Nebulized [Atrovent Nebulized 0.2 MG/ML] 0.5 mg INHALATION RT-QID PRN PRN Reason: Shortness Of Breath DULoxetine HCL [Cymbalta] 60 mg PO DAILY Albuterol Sulfate [Ventolin HFA] 1 - 2 puff INHALATION RT-Q6H PRN PRN Reason: Shortness Of Breath Lysine 500 mg PO DAILY #0 Glucosam/Chond/Hyalu/Cf Borate [Move Free Joint Health Tablet] 1 tab PO DAILY Acetaminophen [Tylenol Arthritis] 650 mg PO DAILY PRN PRN Reason: arthritis pain Nadolol [Corgard] 40 mg PO QAM Pregabalin [Lyrica] 75 mg PO BID #14 cap Rivaroxaban [Xarelto] 20 mg PO DAILY Discharge Medication List Estradiol [Estrace] 2 mg PO DAILY 05/14/14 [History] Pantoprazole Sodium [Protonix] 40 mg PO BID 05/14/14 [History] Albuterol Nebulized [Ventolin Nebulized] 2.5 mg INHALATION RT-QID PRN 08/16/18 [History] Ipratropium Nebulized [Atrovent Nebulized 0.2 MG/ML] 0.5 mg INHALATION RT-QID PRN 11/13/18 [History] DULoxetine HCL [Cymbalta] 60 mg PO DAILY 10/06/19 [History] Albuterol Sulfate [Ventolin HFA] 1 - 2 puff INHALATION RT-Q6H PRN 10/29/19 [History] Acetaminophen [Tylenol Arthritis] 650 mg PO DAILY PRN 05/02/20 [History] Glucosam/Chond/Hyalu/Cf Borate [Move Free Joint Health Tablet] 1 tab PO DAILY 05/02/20 [History] Lysine 500 mg PO DAILY #0 07/10/20 [History] Nadolol [Corgard] 40 mg PO QAM 05/02/20 [History] Pregabalin [Lyrica] 75 mg PO BID #14 cap 05/24/20 [Rx] Rivaroxaban [Xarelto] 20 mg PO DAILY 12/02/21 [History] Follow up Appointment(s)/Referral(s): Marla Aguayo MD [Primary Care Provider] - 1-2 Days Rebecca Bajwa MD [STAFF PHYSICIAN] - 01/01/22 3:30 pm Patient Instructions/Handouts: *Surgery [facility] - Bronchoscopy Discharge Instructions Activity/Diet/Wound Care/Special Instructions: Activity Limited until follow-up Follow-up with primary care provider on discharge Follow-up pulmonary outpatient for test results Continue current medications Continue current diet Discharge Disposition: HOME SELF-CARE
== END 2021-12-04 11:45 | disposition home or self-care (01) ==
LOC: ORWHC2ENDO 11:12 → 6NMEDSUR 12:54 → ORWHC2ENDO 12-04 11:45
PROVIDERS: ATTEND Internal Medicine
DX: R05.3 Chronic cough (principal); G62.9 Polyneuropathy, unspecified; K21.9 Gastro-esophageal reflux disease without esophagitis; I25.10 Atherosclerotic heart disease of native coronary artery without angina pectoris; M06.9 Rheumatoid arthritis, unspecified; I25.2 Old myocardial infarction; I10 Essential (primary) hypertension; J44.9 Chronic obstructive pulmonary disease, unspecified; J45.909 Unspecified asthma, uncomplicated; I48.3 Typical atrial flutter
CPT/HCPCS: 94640 ×2; 87798 ×3; 87496; 87498; 87529; 87252; 87502; 87634; 87070; 87205; 87116; 87102; 87206; 31624; J2001 ×2; J2250; J0360; J2920 ×2; J2405; J3010; J2704

== ENCOUNTER → 2022-01-01 | Outpatient (CLI) | payer MEDICARE, BC ==
--- NOTE | 2022-01-01 14:11 | CT ---
EXAMINATION TYPE: CT chest wo con DATE OF EXAM: 01/01/2022 INDICATION: Chronic cough, mucous production CT DLP: 389.30 mGy.cm Automated Exposure Control for Dose Reduction was Utilized. TECHNIQUE AND CONTRAST: CT scan of the chest without IV contrast administration. COMPARISON: CT dated 08/16/2019 FINDINGS: Minimal right medial lower lobar subpleural reticulation. Small atelectasis is seen in the lingula. F aint areas of groundglass opacity seen in both lungs giving a slightly mosaic perfusion pattern witho ut evidence of septal thickening, nonspecific. This was also appreciated previously without interval progression. Stable scattered millimetric pulmonary nodules measuring up to 2 mm in the left lower lo be superior segment. Unremarkable lungs otherwise. No mucus plugging, traction bronchiectasis or honeycombing. Patent cent ral airways. No pleural or pericardial effusion. Cardiomegaly with left atrial enlargement, please co rrelate with echocardiographic results. Scattered arterial and coronary atherosclerotic calcification s. The pulmonary trunk measures up to 2.8 cm. No pathologically enlarged lymph nodes in the chest. Previous cholecystectomy. Slightly atrophic pancreas. Bilateral renal cysts, not completely included in the scan. Suspected tiny bilateral renal calculi versus arterial calcifications. Lower cervical an terior fixation with L3 fixation, not completely included in the scan. Severe degenerative changes of the lower thoracic spine. No gross aggressive bone lesion. IMPRESSION: The described mild bilateral pulmonary changes are nonspecific and could be related to chronic small airway disease or chronic thromboembolic pulmonary hypertension. Other mild chronic interstitial lung disease like minimal hypersensitivity pneumonitis can't be excluded. Recommend clinical correlation and further workup. Further pulmonology consultation can be considered. Other incidental findings as described above.
== END | disposition home or self-care (01) ==
LOC: RADCTMAIN 12:40
PROVIDERS: ATTEND Internal Medicine Critical Care Medicine
DX: R91.8 Other nonspecific abnormal finding of lung field (principal)
CPT/HCPCS: 71250

== ENCOUNTER → 2022-02-09 | Outpatient (CLI) | payer MEDICARE, BC ==
[2022-02-09 11:57] LABS: Appearance,Urine Cloudy (Clear); Bacteria,Urine Occasional /hpf; Bilirubin,Urine Negative (Negative); Blood,Urine Negative (Negative); Color,Urine Yellow; Glucose,Urine (UA) Negative (Negative); Hyaline Casts,Urine 3 /lpf (0-2); Ketones,Urine Negative (Negative); Leukocyte Esterase,Urine Moderate (Negative); Mucus,Urine Moderate /hpf; Nitrite,Urine Negative (Negative); PH, Urine 5.5 (5.0-8.0); Protein,Urine 1+ (Negative); RBC,Urine 6 /hpf (0-5); Specific Gravity,Urine 1.039 (1.001-1.035); Squamous Epithelial Cell,Urine 20 /hpf (0-4); Urobilinogen,Urine <2.0 mg/dL (<2.0); WBC,Urine 12 /hpf (0-5)
[2022-02-09 19:22] LABS: Basophils # (A) 0.08 X 10*3/uL (0.00-0.10); Basophils % (A) 1.7 %; Eosinophils % (A) 4.4 %; HCT 40.3 % (37.2-46.3); HGB 12.7 g/dL (12.0-15.0); Immature Grans, Automated 0.2 %; Lymphocytes # (A) 0.95 X 10*3/uL (0.90-5.00); Lymphocytes % (A) 20.7 %; MCH 31.5 pg (27.0-32.0); MCHC 31.5 g/dL (32.0-37.0); Mean Platelet Volume 10.1 fL (9.5-12.2); Monocytes % (A) 13.1 %; NRBC Per 100 WBC 0 /100 WBCS (0.0-0.0); Neutrophils # (A) 2.75 X 10*3/uL (1.80-7.70); Neutrophils % (A) 59.9 %; Platelet Count 283 X 10*3/uL (140-440); RBC 4.03 X 10*6/uL (4.10-5.20); RDW 15.6 % (11.5-14.5); WBC 4.59 X 10*3/uL (4.50-10.00)
[2022-02-09 19:49] LABS: % Iron Saturation 31.78 (12.00-45.00); ALT 18 U/L (8-44); AST 23 U/L (13-35); African American GFR (CKD) 97.5 (60.0-200.0); Albumin 4.3 g/dL (3.8-4.9); Albumin/Globulin Ratio 1.39 (1.60-3.17); Alkaline Phosphatase 61 U/L (41-126); BUN/Creat Ratio 21.71 Ratio (12.00-20.00); Blood Urea Nitrogen 15.2 mg/dL (9.0-27.0); Calcium 9.6 mg/dL (8.7-10.3); Carbon Dioxide 20.7 mmol/L (20.0-27.5); Chloride 104 mmol/L (96-109); Chol/HDL Ratio 2.79 Ratio; Globulin 3.1 g/dL (1.6-3.3); Glucose 88 mg/dL (70-110); Iron 109 ug/dL (50-170); LDL Cholesterol,Calculated 91.1 mg/dL (0.0-131.0); Non-African American GFR(CKD) 84.2 (60.0-200.0); Potassium 4.6 mmol/L (3.5-5.5); Sodium 136 mmol/L (135-145); Total Iron Binding Capacity 343 ug/dL (228-460); Total Protein 7.4 g/dL (6.2-8.2)
== END | disposition home or self-care (01) ==
LOC: LABWHC1 09:03
PROVIDERS: ATTEND Family Medicine
DX: Z00.00 Encounter for general adult medical examination without abnormal findings (principal); D64.9 Anemia, unspecified; I48.91 Unspecified atrial fibrillation; K21.9 Gastro-esophageal reflux disease without esophagitis
CPT/HCPCS: 36415; 80053; 80061; 81001; 82728; 83540; 83550; 85025

== ENCOUNTER → 2022-06-01 | Outpatient (CLI) | payer MEDICARE, BC ==
[2022-06-01 13:51] LABS: African American GFR (CKD) >90 (>60 ml/min/1.73 sqM); Blood Urea Nitrogen 17 mg/dL (7-17); Non-African American GFR(CKD) 80 (>60 ml/min/1.73 sqM)
--- NOTE | 2022-06-01 15:50 | CT ---
EXAMINATION TYPE: CT abdomen pelvis w con DATE OF EXAM: 06/01/2022 COMPARISON: 06/19/2021 HISTORY: 76-year-old female K21.9, GERD, R10.13 Epigastric pain, R53.83 fatigue. TECHNIQUE: Contiguous axial scanning of the abdomen and pelvis following administration of 70 ml Isov ue 300 IV contrast. Delayed images through the kidneys and coronal/sagittal reconstructions performe d. CT DLP: 1316 mGycm Automated exposure control for dose reduction was used. FINDINGS: Heart upper limits of normal in size without pericardial effusion. Lung bases clear without pleural e ffusion. 1 cm cyst anterior left liver lobe. Portal venous system is patent. No biliary ductal dilatation. Gallbladder surgically absent. The adrenal glands, spleen, and pancreas within normal limits. 1.1 cm nonobstructive right lower pole renal calculus. Additional 4 mm and punctate 2 mm right midpo le renal calculus. Bilateral benign renal cysts measuring up to 3.3 cm. No dilated small bowel, free fluid, or free air. No mesenteric or retroperitoneal lymphadenopathy. Appendix not clearly visualized. No secondary findings of acute appendicitis in the right lower quadr ant. Oral contrast progressed to the mid transverse colon. Mild stool burden. No pericolonic inflamma tory change. Uterus surgically absent. Bladder under distended. There is pelvic floor relaxation. A couple left-si ded pelvic phleboliths. Right ovary not clearly delineated. There is a 3.1 x 2.0 cm cystic lesion of the left ovary, unchanged from 06/19/2021. Recommend further pelvic ultrasound evaluation to determine subsequent follow-up recommendations in this postmenopausal female. No abnormal fluid collection in the pelvis or pelvic lymphadenopathy. Postsurgical change of right hip thoracoplasty. Advanced degenerative disc disease lower thoracic spi ne. Postsurgical change of L3-S1 posterior and interbody fusion with corresponding laminectomies. IMPRESSION: 1. NONOBSTRUCTIVE RIGHT RENAL CALCULI. APPROXIMATELY 3 STONES ARE PRESENT MEASURING UP TO 1.1 CM. 2. PELVIC FLOOR RELAXATION. STATUS POST HYSTERECTOMY. RIGHT OVARY NOT CLEARLY SEEN. 3. A 3.1 X 2.0 CM CYSTIC LESION OF THE LEFT OVARY. THIS IS UNCHANGED FROM 06/19/2021 BUT REMAINS ABNOR MAL IN A POSTMENOPAUSAL FEMALE. RECOMMEND PELVIC ULTRASOUND FOLLOW-UP TO FURTHER CHARACTERIZE AND DET ERMINE SUBSEQUENT SURVEILLANCE RECOMMENDATIONS.
== END | disposition home or self-care (01) ==
LOC: RADCTMAIN 12:19
PROVIDERS: ATTEND Family Medicine
DX: K21.9 Gastro-esophageal reflux disease without esophagitis (principal); R10.13 Epigastric pain; R53.83 Other fatigue; K27.9 Peptic ulcer, site unspecified, unspecified as acute or chronic, without hemorrhage or perforation
CPT/HCPCS: 82565; 84520; 74177; 36415; Q9967 ×2

== ENCOUNTER 2022-06-16 07:55 | Inpatient (IN) | payer MEDICARE, BC ==
[2022-06-16] MEDS ORDERED: NITROGLYCERIN SL TABS 0.4 MG TAB SUBLINGUAL STA (08:02)
[2022-06-16] MEDS ORDERED: NITROGLYCERIN OINT 1 INCH/GM PACKET TOPICAL STA (08:02)
--- NOTE | 2022-06-16 08:35 | ED ---
General Adult HPI - General Chief complaint: Chest Pain Stated complaint: chest pain Time Seen by Provider: 06/16/22 08:00 Source: patient, EMS, RN notes reviewed, old records reviewed Mode of arrival: EMS Limitations: no limitations - History of Present Illness Initial comments: This is a 76-year-old female who complains of chest pain since Tuesday. Patient describes it as a heaviness. Patient states it radiates to her left shoulder and her back a little. Patient states today when she woke up the chest pain was much worse and she was very short of breath so she called EMS. When EMS arrived they gave her nitroglycerin did help with the chest pain considerably. Patient states it currently is better than was earlier but still exists. Patient denies any recent fever chills or cough. Patient denies any nausea vomiting. Patient denies abdominal pain patient denies any diarrhea. Patient denies any lightheadedness or dizziness or near syncopal episode. Patient denies any numbness or weakness. - Related Data Home Medications Medication Instructions Recorded Confirmed Pantoprazole Sodium [Protonix] 40 mg PO BID 05/14/14 12/18/21 estradioL [Estrace] 2 mg PO DAILY 05/14/14 12/18/21 Albuterol Nebulized [Ventolin 2.5 mg INHALATION RT-QID PRN 08/16/18 12/18/21 Nebulized] Ipratropium Nebulized [Atrovent 0.5 mg INHALATION RT-QID PRN 11/13/18 12/18/21 Nebulized 0.2 MG/ML] DULoxetine HCL [Cymbalta] 60 mg PO DAILY 10/06/19 12/18/21 Albuterol Sulfate [Ventolin HFA] 1 - 2 puff INHALATION RT-Q6H PRN 10/29/19 12/18/21 Acetaminophen [Tylenol Arthritis] 650 mg PO DAILY PRN 05/02/20 12/18/21 Glucosam/Chond/Hyalu/Cf Borate 1 tab PO DAILY 05/02/20 12/18/21 [Move Free Joint Health Tablet] Lysine 500 mg PO DAILY #0 05/02/20 12/18/21 nadoloL [Corgard] 40 mg PO QAM 05/02/20 12/18/21 Rivaroxaban [Xarelto] 20 mg PO DAILY 12/02/21 12/18/21 Previous Rx's Medication Instructions Recorded Pregabalin [Lyrica] 75 mg PO BID #14 cap 05/24/20 Allergies Allergy/AdvReac Type Severity Reaction Status Date / Time cephalexin monohydrate Allergy HIVES Verified 06/16/22 08:05 [From Keflex] diphenhydramine HCl Allergy SWELLING Verified 06/16/22 08:05 [From Benadryl] OF TONGUE, SOB enoxaparin [From Lovenox] Allergy Rash/Hives Verified 06/16/22 08:05 Penicillins Allergy SWELLING, Verified 06/16/22 08:05 HIVES aspirin AdvReac EXCESS Verified 06/16/22 08:05 BLEEDING morphine AdvReac Vomiting Verified 06/16/22 08:05 propofol AdvReac Confusion Verified 06/16/22 08:05 sulfamethoxazole AdvReac Nausea & Verified 06/16/22 08:05 [From Bactrim] Vomiting trimethoprim [From Bactrim] AdvReac Nausea & Verified 06/16/22 08:05 Vomiting Review of Systems ROS Statement: Those systems with pertinent positive or pertinent negative responses have been documented in the HPI. ROS Other: All systems not noted in ROS Statement are negative. Past Medical History Past Medical History: Atrial Flutter, Asthma, Cancer, COPD, GERD/Reflux, GI Bleed, Hypertension, Memory Impairment, Myocardial Infarction (VT), Osteoarthritis (OA) Additional Past Medical History / Comment(s): Chronic cough. Back pain, migraines. Occasional slight difficulty with swallowing. 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 Hx kidney stones, "kidney function low". Last Myocardial Infarction Date:: 2012 History of Any Multi-Drug Resistant Organisms: None Reported Past Surgical History: Back Surgery, Cholecystectomy, Heart Catheterization, Hysterectomy, Joint Replacement, Orthopedic Surgery Additional Past Surgical History / Comment(s): RODS & CAGES IN BACK, RIGHT HIP REPLACEMENT, PARTIAL THYROIDECTOMY, BILATERAL KNEE REPLACEMENTS, NECK SURGERY WITH LIDIA AND CAGES, MELANOMA REMOVED FROM FACE X2, REPAIR OF HEMATOMA/FEMORAL ARTERY AFTER HEART CATHETERIZATION. Past Anesthesia/Blood Transfusion Reactions: Previous Problems w/ Anesthesia, Motion Sickness, Postoperative Nausea & Vomiting (PONV) Additional Past Anesthesia/Blood Transfusion Reaction / Comment(s): Hard to wake up. Past Psychological History: Depression Smoking Status: Never smoker Past Alcohol Use History: None Reported Past Drug Use History: None Reported - Past Family History Sister(s) Family Medical History: Cancer Brother(s) Family Medical History: Cancer Mother Family Medical History: Myocardial Infarction (VT) Additional Family Medical History / Comment(s): Mother of a VT at the age of 76yrs. Father History Unknown: Yes General Exam - General Exam Comments Initial Comments: GENERAL: Patient is well-developed and well-nourished. Patient is nontoxic and well- hydrated and is in mild distress. ENT: Neck is soft and supple. No significant lymphadenopathy is noted. Oropharynx is clear. Moist mucous membranes. Neck has full range of motion without eliciting any pain. EYES: The sclera were anicteric and conjunctiva were pink and moist. Extraocular movements were intact and pupils were equal round and reactive to light. Eyelids were unremarkable. PULMONARY: Unlabored respirations. Good breath sounds bilaterally. No audible rales rhonchi or wheezing was noted. CARDIOVASCULAR: There is a regular rate and rhythm without any murmurs gallops or rubs. ABDOMEN: Soft and nontender with normal bowel sounds. SKIN: Skin is clear with no lesions or rashes and otherwise unremarkable. NEUROLOGIC: Patient is alert and oriented x3. Cranial nerves II through XII are grossly intact. Motor and sensory are also intact. Normal speech, volume and content. Symmetrical smile. MUSCULOSKELETAL: Normal extremities with adequate strength and full range of motion. No lower extremity swelling or edema. No calf tenderness. LYMPHATICS: No significant lymphadenopathy is noted PSYCHIATRIC: Normal psychiatric evaluation. 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 Patient's EKG shows a left bundle branch block. Chest x-ray shows no acute abnormality. Patient continued to have some chest pain while in the emergency department. Patient is not could be started on heparin because she Ory takes Xarelto. I spoke with some physicians agreed to admit the patient admitted the patient I consult to cardiology. Patient refuses aspirin because of previous ulcers - Lab Data Result diagrams: 06/16/22 08:06/16/22 08:22 Lab Results 06/16/22 06/16/22 06/16/22 Range/Units 08:22 08:22 08:22 WBC 5.2 (3.8-10.6) k/uL RBC 3.56 L (3.80-5.40) m/uL Hgb 12.4 (11.4-16.0) gm/dL Hct 38.1 (34.0-46.0) % MCV 106.9 H (80.0-100.0) fL MCH 34.9 (25.0-35.0) pg MCHC 32.7 (31.0-37.0) g/dL RDW 13.7 (11.5-15.5) % Plt Count 250 (150-450) k/uL MPV 8.3 Neutrophils % 68 % Lymphocytes % 16 % Monocytes % 8 % Eosinophils % 4 % Basophils % 1 % Neutrophils # 3.5 (1.3-7.7) k/uL Lymphocytes # 0.8 L (1.0-4.8) k/uL Monocytes # 0.4 (0-1.0) k/uL Eosinophils # 0.2 (0-0.7) k/uL Basophils # 0.1 (0-0.2) k/uL Macrocytosis Moderate PT 10.8 (9.0-12.0) sec INR 1.0 (<1.2) APTT 24.5 (22.0-30.0) sec Sodium 138 (137-145) mmol/L Potassium 3.5 (3.5-5.1) mmol/L Chloride 110 H (98-107) mmol/L Carbon Dioxide 20 L (22-30) mmol/L Anion Gap 8 mmol/L BUN 13 (7-17) mg/dL Creatinine 0.53 (0.52-1.04) mg/dL Est GFR (CKD-EPI)AfAm >90 (>60 ml/min/1.73 sqM) Est GFR (CKD-EPI)NonAf >90 (>60 ml/min/1.73 sqM) Glucose 99 (74-99) mg/dL Calcium 8.2 L (8.4-10.2) mg/dL Magnesium 1.6 (1.6-2.3) mg/dL Total Bilirubin 0.6 (0.2-1.3) mg/dL AST 23 (14-36) U/L ALT 19 (4-34) U/L Alkaline Phosphatase 59 (38-126) U/L Troponin I (0.000-0.034) ng/mL Total Protein 6.2 L (6.3-8.2) g/dL Albumin 3.6 (3.5-5.0) g/dL 06/16/22 Range/Units 08:22 WBC (3.8-10.6) k/uL RBC (3.80-5.40) m/uL Hgb (11.4-16.0) gm/dL Hct (34.0-46.0) % MCV (80.0-100.0) fL MCH (25.0-35.0) pg MCHC (31.0-37.0) g/dL RDW (11.5-15.5) % Plt Count (150-450) k/uL MPV Neutrophils % % Lymphocytes % % Monocytes % % Eosinophils % % Basophils % % Neutrophils # (1.3-7.7) k/uL Lymphocytes # (1.0-4.8) k/uL Monocytes # (0-1.0) k/uL Eosinophils # (0-0.7) k/uL Basophils # (0-0.2) k/uL Macrocytosis PT (9.0-12.0) sec INR (<1.2) APTT (22.0-30.0) sec Sodium (137-145) mmol/L Potassium (3.5-5.1) mmol/L Chloride (98-107) mmol/L Carbon Dioxide (22-30) mmol/L Anion Gap mmol/L BUN (7-17) mg/dL Creatinine (0.52-1.04) mg/dL Est GFR (CKD-EPI)AfAm (>60 ml/min/1.73 sqM) Est GFR (CKD-EPI)NonAf (>60 ml/min/1.73 sqM) Glucose (74-99) mg/dL Calcium (8.4-10.2) mg/dL Magnesium (1.6-2.3) mg/dL Total Bilirubin (0.2-1.3) mg/dL AST (14-36) U/L ALT (4-34) U/L Alkaline Phosphatase (38-126) U/L Troponin I <0.012 (0.000-0.034) ng/mL Total Protein (6.3-8.2) g/dL Albumin (3.5-5.0) g/dL Disposition Clinical Impression: Unstable angina Disposition: ADMITTED IP TO THIS HOSP Referrals: Isaiah Estrada [Primary Care Provider] - 1-2 days Time of Disposition: 10:29
--- NOTE | 2022-06-16 08:50 | XR ---
EXAMINATION TYPE: XR chest 2V DATE OF EXAM: 06/16/2022 COMPARISON: 05/17/2021 INDICATION: Chest pain A. fib TECHNIQUE: Frontal and lateral views of the chest are obtained. FINDINGS: The heart size is normal. The pulmonary vasculature is normal. The lungs are clear. Good inspiratory effort is present. Consider emphysema within the differential. IMPRESSION: 1. No acute pulmonary process. 2. Consider emphysema
[2022-06-16 09:41] LABS: Basophils # (A) 0.1 k/uL (0-0.2); Basophils % (A) 1 %; Eosinophils # (A) 0.2 k/uL (0-0.7); Eosinophils % (A) 4 %; HCT 38.1 % (34.0-46.0); HGB 12.4 gm/dL (11.4-16.0); Lymphocytes # (A) 0.8 k/uL (1.0-4.8); Lymphocytes % (A) 16 %; MCH 34.9 pg (25.0-35.0); MCHC 32.7 g/dL (31.0-37.0); MCV 106.9 fL (80.0-100.0); Macrocytosis Moderate; Mean Platelet Volume 8.3; Monocytes # (A) 0.4 k/uL (0-1.0); Monocytes % (A) 8 %; Neutrophils # (A) 3.5 k/uL (1.3-7.7); Neutrophils % (A) 68 %; Platelet Count 250 k/uL (150-450); RBC 3.56 m/uL (3.80-5.40); RDW 13.7 % (11.5-15.5); WBC 5.2 k/uL (3.8-10.6)
[2022-06-16 09:51] LABS: Partial Thromboplastin Time 24.5 sec (22.0-30.0); Prothrombin Time 10.8 sec (9.0-12.0)
[2022-06-16 09:59] LABS: ALT 19 U/L (4-34); AST 23 U/L (14-36); African American GFR (CKD) >90 (>60 ml/min/1.73 sqM); Albumin 3.6 g/dL (3.5-5.0); Alkaline Phosphatase 59 U/L (38-126); Anion Gap 8 mmol/L; Blood Urea Nitrogen 13 mg/dL (7-17); Calcium 8.2 mg/dL (8.4-10.2); Carbon Dioxide 20 mmol/L (22-30); Chloride 110 mmol/L (98-107); Glucose 99 mg/dL (74-99); Magnesium 1.6 mg/dL (1.6-2.3); Non-African American GFR(CKD) >90 (>60 ml/min/1.73 sqM); Potassium 3.5 mmol/L (3.5-5.1); Sodium 138 mmol/L (137-145); Total Bilirubin 0.6 mg/dL (0.2-1.3); Total Protein 6.2 g/dL (6.3-8.2)
[2022-06-16] MEDS ORDERED: hydrALAZINE HCL 20 MG/ML 1 ML VIAL IVP STA (10:28)
[2022-06-16] MEDS ORDERED: NITROGLYCERIN SL TABS 0.4 MG TAB SUBLINGUAL PRN (10:29)
--- NOTE | 2022-06-16 10:56 | P.HPIM ---
History of Present Illness H&P Date: 06/16/22 History of Presenting Illness: Patient is a very pleasant 76-year-old female with a past medical history of CAD status post stenting, hypertension, atrial fibrillation on anticoagulation with Xarelto, , and GERD. She presented to the emergency department with a chief complaint of chest pain. Patient reports she has been experiencing midsternal chest pain and shortness of breath intermittently over the past few days. Patient reports today this pain was worse and actually became unbearable. she describes this pain as though someone was sitting on her chest and reports that it is a dull heaviness. She states this chest pain has been accompanied by shortness of breath, palpitations, dizziness, lightheadedness, nausea, and generalized fatigue. She denies radiation of pain and denies experiencing any fevers, chills, diaphoresis, cough or congestion, abdominal pain, vomiting, or experiencing any numbness/tingling/focal weakness in extremities. Upon arrival to the emergency department patient was in hypertensive urgency with blood pressure 172/110 and heart rate of 95. EKG revealing atrial fibrillation with a controlled ventricular rate at 89 bpm with a left bundle branch block (left bundle-branch block is chronic and was noted on previous EKG completed 2020). C hest x-ray revealing mild emphysema but negative for acute cardiopulmonary process.CBC, coags, and CMP showing no significant abnormalities. Troponin less than 0.012. Patient has been admitted under our services with consultation to cardiology. Review of systems: Pertinent positives and negatives as discussed in HPI, a complete review of systems was performed and all other systems are negative. Physical exam: Vital signs reviewed and stable. General: Nontoxic, no distress and appears stated age. Derm: Skin warm and dry, normal coloration for ethnicity. Head: Atraumatic, normocephalic and symmetric. Eyes: EOMs intact, no lid lag, and anicteric sclera Mouth: no lip lesions, mucus membranes moist Cardiovascular: irregularly irregular, systolic murmur, positive posterior tibial pulses bilaterally, and cap refill < 2 seconds. Lungs: Respirations even, regular, and unlabored on room air. Lungs CTA bilaterally, no rhonchi, no rales, no wheezing, and no accessory muscle usage. Abdominal: soft, nontender to palpation, no guarding, no appreciable organomegaly Ext: ROM intact. No gross muscle atrophy, no edema, no contractures Neuro: Speech clear, face symmetrical and CN II-XII grossly intact with no noted focal neuro deficits Psych: Alert and oriented to person, place, time, and situation. Appropriate and pleasant affect. Assessment and Plan of Care: Chest pain, rule out acute coronary event Atrial fibrillation Hypertensive urgency -Cardiology consult, appreciate further recommendations -Telemetry monitoring and close monitoring of vital signs every 4 hours. -Trend troponins -Cardiac diet, NPO at midnight -Continue cardiac medication regimen consisting of Xarelto, nadolol, and aspirin. -Lipid profile with a.m. labs. -Echocardiogram COPD -Duo nebs every 2 hours as needed for wheezing/shortness of breath. GERD -Continue PPI with Protonix 40 mg twice a day The patient is admitted with an anticipated less than 2 midnight stay for evaluation of Chest pain. CODE STATUS: full code DVT prophylaxis: Xarelto Discussed with: patient, patient's , and RN Anticipated discharge date: 1-[address]: Home A total of 48 minutes was spent on the care of this complex patient more than 50% of the time was spent in counseling and care coordination. Past Medical History Past Medical History: Atrial Flutter, Asthma, Cancer, COPD, GERD/Reflux, GI Bleed, Hypertension, Memory Impairment, Myocardial Infarction ([place]), Osteoarthritis (OA) Additional Past Medical History / Comment(s): Chronic cough. Back pain, migraines. Occasional slight difficulty with swallowing. 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 Hx kidney stones, "kidney func tion low". Last Myocardial Infarction Date:: 2012 History of Any Multi-Drug Resistant Organisms: None Reported Past Surgical History: Back Surgery, Cholecystectomy, Heart Catheterization, Hysterectomy, Joint Replacement, Orthopedic Surgery Additional Past Surgical History / Comment(s): RODS & CAGES IN BACK, RIGHT HIP REPLACEMENT, PARTIAL THYROIDECTOMY, BILATERAL KNEE REPLACEMENTS, NECK SURGERY WITH LIDIA AND CAGES, MELANOMA REMOVED FROM FACE X2, REPAIR OF HEMATOMA/FEMORAL ARTERY AFTER HEART CATHETERIZATION. Past Anesthesia/Blood Transfusion Reactions: Previous Problems w/ Anesthesia, Motion Sickness, Postoperative Nausea & Vomiting (PONV) Additional Past Anesthesia/Blood Transfusion Reaction / Comment(s): Hard to wake up. Past Psychological History: Depression Smoking Status: Never smoker Past Alcohol Use History: None Reported Past Drug Use History: None Reported - Past Family History Sister(s) Family Medical History: Cancer Brother(s) Family Medical History: Cancer Mother Family Medical History: Myocardial Infarction ([place]) Additional Family Medical History / Comment(s): Mother of a [place] at the age of 76yrs. Father History Unknown: Yes Medications and Allergies Home Medications Medication Instructions Recorded Confirmed Type Pantoprazole Sodium [Protonix] 40 mg PO BID 05/14/14 06/16/22 History estradioL [Estrace] 2 mg PO DAILY 05/14/14 06/16/22 History DULoxetine HCL [Cymbalta] 30 mg PO DAILY 10/06/19 06/16/22 History Glucosam/Chond/Hyalu/Cf Borate 1 tab PO DAILY 05/02/20 06/16/22 History [Move Free Joint Health Tablet] Lysine 500 mg PO DAILY #0 05/02/20 06/16/22 History nadoloL [Corgard] 40 mg PO QAM 05/02/20 06/16/22 History Pregabalin [Lyrica] 75 mg PO BID #14 cap 05/24/20 06/16/22 Rx Rivaroxaban [Xarelto] 20 mg PO DAILY 12/02/21 06/16/22 History Cholecalciferol [Vitamin D3 (25 25 mcg PO DAILY 06/16/22 06/16/22 History Mcg = 1000 Iu)] Cyanocobalamin (Vitamin B-12) 1,000 mcg PO DAILY 06/16/22 06/16/22 History [Vitamin B-12] Potassium Citrate 99 mg PO DAILY 06/16/22 06/16/22 History Allergies Allergy/AdvReac Type Severity Reaction Status Date / Time cephalexin monohydrate Allergy HIVES Verified 06/16/22 11:20 [From Keflex] diphenhydramine HCl Allergy SWELLING Verified 06/16/22 11:20 [From Benadryl] OF TONGUE, SOB enoxaparin [From Lovenox] Allergy Rash/Hives Verified 06/16/22 11:20 Penicillins Allergy SWELLING, Verified 06/16/22 11:20 HIVES aspirin AdvReac EXCESS Verified 06/16/22 11:20 BLEEDING morphine AdvReac Vomiting Verified 06/16/22 11:20 propofol AdvReac Confusion Verified 06/16/22 11:20 sulfamethoxazole AdvReac Nausea & Verified 06/16/22 11:20 [From Bactrim] Vomiting trimethoprim [From Bactrim] AdvReac Nausea & Verified 06/16/22 11:20 Vomiting Physical Exam Vitals: Vital Signs Temp Pulse Pulse Resp BP Pulse Ox 06/16/22 08:25 95 06/16/22 07:56 97.6 F 95 20 172/110 97 Intake and Output 06/15/22 06/16/22 06/16/22 22:59 06:59 14:59 Other: Weight 71.214 kg Results CBC & Chem 7: 06/16/22 08:22 06/16/22 08:22 Labs: Abnormal Lab Results - Last 24 Hours (Table) 06/16/22 06/16/22 Range/Units 08: 08:22 RBC 3.56 L (3.80-5.40) m/uL MCV 106.9 H (80.0-100.0) fL Lymphocytes # 0.8 L (1.0-4.8) k/uL Chloride 110 H (98-107) mmol/L Carbon Dioxide 20 L (22-30) mmol/L Calcium 8.2 L (8.4-10.2) mg/dL Total Protein 6.2 L (6.3-8.2) g/dL
[2022-06-16] MEDS ORDERED: ACETAMINOPHEN TAB 325 MG TAB PO STA (12:52)
[2022-06-16] MEDS: NITROGLYCERIN OINT 1 INCH/GM PACKET TOPICAL SCH ×2 (12:54→20:07)
[2022-06-16] MEDS ORDERED: NALOXONE 0.4 MG/ML 1 ML VIAL IVP PRN (13:02)
--- NOTE | 2022-06-16 13:09 | P.CRDCN ---
History of Present Illness Consult date: 06/16/22 Requesting physician: Audrey Grissom Reason for Consult (text): chest pain Chief complaint: chest heaviness, shortness of breath, palpitations History of present illness: Pleasant 76-year-old female patient who follows in the office with Dr. Madison. She has a history of atrial fibrillation, paroxysmal in the past, likely persistent at this time, history of hypertension, hyperlipidemia and CAD with cardiac catheterization in 2019 showing a 40-50% lesion involving the proximal LAD. Presented to the hospital with chest heaviness that has been pretty persistent since Tuesday worse this morning. Also getting occasional palpitations and complaining of some shortness of breath. Over the last 5 or 6 months she's also been complaining of fatigue, lower extremity weakness, poor appetite and a 35 pound weight loss. She is following with her primary care provider in this regard and recently had a computed tomography scan and was told that showed multiple cysts. She is also been seen by Dr. Alisha Hallman and is scheduled for endoscopy in the next couple of months. She does have a history of ulcers in the past but has had no signs of bleeding and her hemoglobin is 12.4. Upon admission troponin has been negative 1. EKG on admission showed fibrillation with a controlled ventricular response, left bundle branch block and occasional PVCs, unchanged from previous. Blood pressure has been elevated but she has not received her morning medications yet today. Upon examination she is resting comfortably on a stretcher in the emergency department. Continues to have heaviness in the chest worsened at times throughout our conversation. It is not clearly related to activity. Denies palpitations at this time. She will remains in atrial fibrillation with her heart rates 90s to low 100s. Past Medical History Past Medical History: Atrial Fibrillation, Asthma, Coronary Artery Disease (CAD), Cancer, COPD, Fibromyalgia, GERD/Reflux, GI Bleed, Hypertension, Memory Impairment, Myocardial Infarction ([place]), Osteoarthritis (OA), Renal Disease, R heumatoid Arthritis (RA), Supraventricular Tachycardia (SVT), Thyroid Disorder, Vascular Disorder Additional Past Medical History / Comment(s): Palpitations, past vertigo with palpitations, chronic cough, past gastric ulcer, diverticular disease, lower GI bleed once, occasional dysphagia, past HPylori, chronic back/cervical pain, migraines, PVD per pt-told arteries were calcified, pt states bilateral leg weakness past 4 months, melanoma removed from face x3, kidney stones, hypothyroid. Last Myocardial Infarction Date:: 2012 History of Any Multi-Drug Resistant Organisms: None Reported Past Surgical History: Back Surgery, Cholecystectomy, Heart Catheterization, Hysterectomy, Joint Replacement, Orthopedic Surgery Additional Past Surgical History / Comment(s): Back and cervical rods/cages, R total hip arthroplasty, R knee multiple surgeries including total knee repla cement x 2, L total knee arthroplasty, pain clinic procedures, R heel spur removal, surgical repair R groin hematoma/artery post cardiac cath, skin cancer removed from face x3, bilateral oophorectomy/urethra nicked and had 3 urethral stents, monarc procedure, L breast benign biopsy, bronchoscopy/BAL, EGDs with dilation, colonoscopies, L partial thyroidectomy, bilateral cataract removals. Past Anesthesia/Blood Transfusion Reactions: Previous Problems w/ Anesthesia, Motion Sickness, Postoperative Nausea & Vomiting (PONV) Additional Past Anesthesia/Blood Transfusion Reaction / Comment(s): Hard to wake up. Pt has clausterphobia. Smoking Status: Never smoker - Past Family History Sister(s) Family Medical History: Cancer Brother(s) Family Medical History: Cancer Mother Family Medical History: Myocardial Infarction ([place]) Additional Family Medical History / Comment(s): Mother of a [place] at the age of 76yrs. Father History Unknown: Yes Medications and Allergies Home Medications Medication Instructions Recorded Confirmed Type Pantoprazole Sodium [Protonix] 40 mg PO BID 05/14/14 06/16/22 History estradioL [Estrace] 2 mg PO DAILY 05/14/14 06/16/22 History DULoxetine HCL [Cymbalta] 30 mg PO DAILY 10/06/19 06/16/22 History Glucosam/Chond/Hyalu/Cf Borate 1 tab PO DAILY 05/02/20 06/16/22 History [Move Free Joint Health Tablet] Lysine 500 mg PO DAILY #0 05/02/20 06/16/22 History nadoloL [Corgard] 40 mg PO QAM 05/02/20 06/16/22 History Pregabalin [Lyrica] 75 mg PO BID #14 cap 05/24/20 06/16/22 Rx Rivaroxaban [Xarelto] 20 mg PO DAILY 12/02/21 06/16/22 History Cholecalciferol [Vitamin D3 (25 25 mcg PO DAILY 06/16/22 06/16/22 History Mcg = 1000 Iu)] Cyanocobalamin (Vitamin B-12) 1,000 mcg PO DAILY 06/16/22 06/16/22 History [Vitamin B-12] Potassium Citrate 99 mg PO DAILY 06/16/22 06/16/22 History Allergies Allergy/AdvReac Type Severity Reaction Status Date / Time cephalexin monohydrate Allergy HIVES Verified 06/16/22 11:20 [From Keflex] diphenhydramine HCl Allergy SWELLING Verified 06/16/22 11:20 [From Benadryl] OF TONGUE, SOB enoxaparin [From Lovenox] Allergy Rash/Hives Verified 06/16/22 11:20 Penicillins Allergy SWELLING, Verified 06/16/22 11:20 HIVES aspirin AdvReac EXCESS Verified 06/16/22 11:20 BLEEDING morphine AdvReac Vomiting Verified 06/16/22 11:20 propofol AdvReac Confusion Verified 06/16/22 11:20 sulfamethoxazole AdvReac Nausea & Verified 06/16/22 11:20 [From Bactrim] Vomiting trimethoprim [From Bactrim] AdvReac Nausea & Verified 06/16/22 11:20 Vomiting Physical Exam Vitals: Vital Signs Temp Pulse Pulse Resp BP Pulse Ox 06/16/22 11:02 90 20 157/103 98 06/16/22 08:25 95 06/16/22 07:56 97.6 F 95 20 172/110 97 Intake and Output 06/15/22 06/16/22 06/16/22 22:59 06:59 14:59 Other: Weight 71.214 kg PHYSICAL EXAMINATION: This is a 76-year-old female in no apparent distress at the time of my examination. VITAL SIGNS: Blood pressure 156/65, heart rate 87, respirations 20, temp 97.6F. Patient is 98 % on room air. HEENT: Head is atraumatic, normocephalic. Pupils are equal, round. Sclerae anicteric. Conjunctivae are clear. Mucous membranes of the mouth are moist. Neck is supple. There is no elevated jugular venous pressure. No carotid bruit is heard. CHEST EXAMINATION: Clear to auscultation bilaterally. No wheezes rales or rhonchi. Respirations even and nonlabored. HEART EXAMINATION: Heart irregular rate and rhythm, positive S1 and S2. No S3. No S4. Systolic murmur. ABDOMEN: Soft, tender. Bowel sounds are heard. No organomegaly noted. EXTREMITIES: 2+ peripheral pulses with no evidence of peripheral edema and no calf tenderness noted. NEUROLOGIC EXAMINATION: Patient is awake, alert and oriented x3. Results 06/16/22 08:22 06/16/22 08:22 Cardiac Enzymes 06/16/22 06/16/22 Range/Units 08:22 08:22 AST 23 (14-36) U/L Troponin I <0.012 (0.000-0.034) ng/mL Coagulation 06/16/22 Range/Units 08:22 PT 10.8 (9.0-12.0) sec APTT 24.5 (22.0-30.0) sec CBC 06/16/22 Range/Units 08:22 WBC 5.2 (3.8-10.6) k/uL RBC 3.56 L (3.80-5.40) m/uL Hgb 12.4 (11.4-16.0) gm/dL Hct 38.1 (34.0-46.0) % Plt Count 250 (150-450) k/uL Comprehensive Metabolic Panel 06/16/22 Range/Units 08:22 Sodium 138 (137-145) mmol/L Potassium 3.5 (3.5-5.1) mmol/L Chloride 110 H (98-107) mmol/L Carbon Dioxide 20 L (22-30) mmol/L BUN 13 (7-17) mg/dL Creatinine 0.53 (0.52-1.04) mg/dL Glucose 99 (74-99) mg/dL Calcium 8.2 L (8.4-10.2) mg/dL AST 23 (14-36) U/L ALT 19 (4-34) U/L Alkaline Phosphatase 59 (38-126) U/L Total Protein 6.2 L (6.3-8.2) g/dL Albumin 3.6 (3.5-5.0) g/dL Current Medications Generic Name Dose Route Start Last Admin Trade Name Freq PRN Reason Stop Dose Admin Nitroglycerin 0.4 mg 06/16/22 10:29 Nitroglycerin Sl Tabs 0.4 Mg Tab SUBLINGUAL Q5M PRN Chest Pain Nitroglycerin 1 inch 06/16/22 14:00 06/16/22 12:54 Nitroglycerin Oint 1 Inch/Gm Packet TOPICAL Not Given Q6H ASHRE Intake and Output 06/15/22 06/16/22 06/16/22 22:59 06:59 14:59 Other: Weight 71.214 kg Patient Weight 06/17/22 06:59 Weight 71.214 kg 06/16/22 08:22 06/16/22 08:22 Assessment and Plan Assessment: #1 symptoms of chest heaviness and shortness of breath and palpitations, troponins have been negative 1 and there are no changes on EKG with an underlying left bundle branch block #2 hypertension #3 CAD with a known 40-50% lesion involving the proximal LAD #4 hyperlipidemia #5 symptoms of fatigue, weakness, decreased appetite and 35 pound weight gain over the last 5-6 months Plan: From cardiology's perspective we will obtain a 2-D echo with Doppler study to assess cardiac structure and function. We will check a TSH and BNP. We will continue to trend her troponins and if they remain negative we will schedule the patient to undergo Lexiscan MPI tomorrow. Nothing by mouth after midnight. Further recommendations to follow. TEMPORARY ADMINISTRATIVE ASSISTANT note has been reviewed, I agree with a documented findings and plan of care. Patient was seen and examined.
[2022-06-16] MEDS: IPRATROPIUM-ALBUTEROL 3 ML NEB INHALATION PRN ×2 (15:30→19:46)
[2022-06-16] MEDS: PANTOPRAZOLE 40 MG TABLET PO SCH (16:46)
--- NOTE | 2022-06-16 19:25 | CA ---
Transthoracic Echo Report Name: Lily Oliver Age: 76 Gender: F : 1945 Exam Date: 06/16/2022 14:17 Exam Location: [facility] Ht (in): 65 Wt (lb): 157 Ordering Physician: Ciara Mai Attending/Referring Phys: [id number], Sergei External Grinder Tender Janice Rushing, MALU Procedure CPT: Indications: CP, SOB Cardiac Hx: Technical Quality: Good Contrast 1: Total Dose (mL): Contrast 2: Total Dose (mL): MEASUREMENTS (Male / Female) Normal Values 2D ECHO LV Diastolic Diameter PLAX 3.9 cm 4.2 - 5.9 / 3.9 - 5.3 cm LV Systolic Diameter PLAX 3.1 cm IVS Diastolic Thickness 1.1 cm 0.6 - 1.0 / 0.6 - 0.9 cm LVPW Diastolic Thickness 1.5 cm 0.6 - 1.0 / 0.6 - 0.9 cm LV Relative Wall Thickness 0.7 RV Internal Dim ED PLAX 3.2 cm LA Systolic Diameter LX 3.7 cm 3.0 - 4.0 / 2.7 - 3.8 cm LA Volume 85.3 cm??? 18 - 58 / 22 - 52 cm??? M-MODE Aortic Root Diameter MM 2.4 cm LA Systolic Diameter MM 4.4 cm LA Ao Ratio MM 1.8 MV E Point Septal Separation 0.9 cm AV Cusp Separation MM 1.8 cm DOPPLER MV E' Velocity 3.2 cm/s TR Peak Velocity 410.3 cm/s TR Peak Gradient 74.2 mmHg Right Ventricular Systolic Press 69.4 mmHg FINDINGS Left Ventricle Left ventricular ejection fraction is estimated at45-50%.Mildly increased left ventricular wall thickness. Left ventricular cavity size normal. Right Ventricle Normal right ventricular size and function. Moderate to severe pulmonary hypertension. Right Atrium Normal right atrial size. Left Atrium Severely increased left atrial volume. Mildly increased left atrial area. Mitral Valve Structurally normal mitral valve. Mild mitral regurgitation. Aortic Valve Trileaflet aortic valve.aortic valve sclerosis. Tricuspid Valve Structurally normal tricuspid valve moderate tricuspid regurgitation. Pulmonic Valve Structurally normal pulmonic valve.trace to mild pulmonic regurgitation. Pericardium Normal pericardium. Aorta Normal size aortic root and proximal ascending aorta. CONCLUSIONS 1. Mildly impaired left ventricular systolic function 2. Moderate to severe pulmonary hypertension 3. Moderate tricuspid with mild mitral regurgitation Previewed by: Dr. Dwayne Gomez MD (Electronically Signed) Final Date: 16 June 2022 19:24
[2022-06-16] MEDS: PREGABALIN 75 MG CAP PO SCH (20:07)
[2022-06-16] MEDS: ACETAMINOPHEN TAB 325 MG TAB PO PRN (20:07)
[2022-06-17] MEDS: NITROGLYCERIN OINT 1 INCH/GM PACKET TOPICAL SCH ×2 (02:22→08:29)
[2022-06-17] MEDS ORDERED: CAFFEINE CITRATE 60 MG/3 ML VIAL IV PRN (07:57)
[2022-06-17] MEDS ORDERED: AMINOPHYLLINE 500 MG/20 ML VIAL IV PRN (07:57)
[2022-06-17] MEDS ORDERED: REGADENOSON 0.4 MG/5 ML SYRINGE IV PRN (07:57)
[2022-06-17] MEDS: IPRATROPIUM-ALBUTEROL 3 ML NEB INHALATION PRN ×2 (08:01→19:49)
[2022-06-17] MEDS: PREGABALIN 75 MG CAP PO SCH ×2 (08:28→19:54)
[2022-06-17] MEDS: CYANOCOBALAMIN 500 MCG TAB PO SCH (08:28)
[2022-06-17] MEDS: PANTOPRAZOLE 40 MG TABLET PO SCH ×2 (08:28→19:54)
[2022-06-17] MEDS: DULoxetine HCL 30 MG CAPSULE.DR PO SCH (08:28)
[2022-06-17] MEDS: ASPIRIN 81 MG PO SCH (08:29)
[2022-06-17] MEDS: CHOLECALCIFEROL 25 MCG (1000 IU) TABLET PO SCH (08:29)
[2022-06-17] MEDS ORDERED: NON FORMULARY DRUG (Lysine [Lysine] 500 MG Tablet) PO SCH (09:00)
[2022-06-17] MEDS ORDERED: RIVAROXABAN 20 MG TAB PO SCH (09:00)
[2022-06-17 09:57] LABS: Chol/HDL Ratio 3.08 Ratio; LDL Cholesterol,Calculated 72.6 mg/dL (0.0-131.0)
[2022-06-17] MEDS ORDERED: AMINOPHYLLINE 250 MG/10 ML VIAL IV ONE (10:20)
[2022-06-17] MEDS ORDERED: METOPROLOL TARTRATE 5 MG/5 ML VIAL IVP ONE (10:30)
[2022-06-17] MEDS ORDERED: ONDANSETRON 4 MG/2 ML VIAL ONE (11:25)
--- NOTE | 2022-06-17 11:33 | P.PN ---
Subjective Progress Note Date: 06/17/22 HISTORY OF PRESENT ILLNESS: Pleasant 76-year-old female patient who follows in the office with Dr. Madison. She has a history of atrial fibrillation, paroxysmal in the past, likely p ersistent at this time, history of hypertension, hyperlipidemia and CAD with cardiac catheterization in 2019 showing a 40-50% lesion involving the proximal LAD. Presented to the hospital with chest heaviness that has been pretty persistent since Tuesday worse this morning. Also getting occasional p alpitations and complaining of some shortness of breath. Over the last 5 or 6 months she's also been complaining of fatigue, lower extremity weakness, poor appetite and a 35 pound weight loss. She is following with her primary care provider in this regard and recently had a computed tomography scan and was told that showed multiple cysts. She is also been seen by Dr. Alisha Hallman and is scheduled for endoscopy in the next couple of months. She does have a history of ulcers in the past but has had no signs of bleeding and her hemoglobin is 12.4. Upon admission troponin has been negative 1. EKG on admission showed fibrillation with a controlled ventricular response, left bundle branch block and occasional PVCs, unchanged from previous. Blood pressure has been elevated but she has not received her morning medications yet today. Upon examination she is resting comfortably on a stretcher in the emergency department. Continues to have heaviness in the chest worsened at times throughout our conversation. It is not clearly related to activity. Denies palpitations at this time. She will remains in atrial fibrillation with her heart rates 90s to low 100s. 06/17/2022 Patient examined this morning at the bedside. Patient denies chest pain or pressure. Denies SOB. Troponins are negative x 3. Blood pressure slightly elevated this morning. Telemetry reveals atrial fibrillation with controlled ventricular rate. PHYSICAL EXAM: VITAL SIGNS: Reviewed. GENERAL: Well-developed in no acute distress. NECK: Supple. No JVD or thyromegaly LUNGS: Respirations even and unlabored. Lungs essentially clear to auscultation bilaterally. HEART: Irregular rate and rhythm. S1 and S2 heard. EXTREMITIES: Normal range of motion. No clubbing or cyanosis. Peripheral pulses intact. No lower extremity edema ASSESSMENT: #1 symptoms of chest heaviness and shortness of breath and palpitations, troponins have been negative 3 and there are no changes on EKG with an underlying left bundle branch block #2 hypertension #3 CAD with a known 40-50% lesion involving the proximal LAD #4 hyperlipidemia #5 symptoms of fatigue, weakness, decreased appetite and 35 pound weight gain over the last 5-6 months PLAN: Continue to monitor blood pressure Increase losartan to 50 mg daily Continue additional home cardiac medications Patient to undergo Lexiscan stress test today Further recommendations pending patient's course Nurse practitioner note has been reviewed by physician. Signing provider agrees with the documented findings, assessment, and plan of care. Objective - Vital Signs Vital signs: Vital Signs Temp 97.6 F 06/17/22 08:00 Pulse 94 06/17/22 09:00 Resp 16 06/17/22 08:00 BP 181/82 06/17/22 09:00 Pulse Ox 100 06/17/22 09:00 FiO2 Intake & Output 06/16/22 06/17/22 06/17/22 18:59 06:59 18:59 Weight 71.214 kg Other: Voiding Method Toilet Toilet # Voids 2 - Labs CBC & Chem 7: 06/16/22 08:22 06/16/22 08:22
[2022-06-17] MEDS: LOSARTAN 50 MG TAB PO SCH (12:00)
--- NOTE | 2022-06-17 12:59 | NM ---
EXAMINATION TYPE: NM stress lexiscan cardiolite DATE OF EXAM: 06/17/2022 COMPARISON: Chest CT January 01, 2022 HISTORY: Chest pain. History of hypertension, COPD, asthma, prior heart attack, and prior heart nicolás terization presents with chest pain, palpitations, difficulty in breathing. TECHNIQUE: After the intravenous administration of 10 mCi Tc 99m Sestamibi - Cardiolite resting SPEC T images acquired 60 minutes post injection. The patient received 0.4mg Lexiscan, 25.2 mCi Tc 99m Sestamibi - Stress images obtained [address] injection FINDINGS: Review of stress and rest SPECT images demonstrates areas of diminished radiotracer uptake involving the anteroseptal wall on stress and rest images suspicious for old infarct. There is suggestion of so me diminished radiotracer uptake on short axis and vertical long axis views in the anteroseptal wall towards the apex suspicious for reversible ischemia. Gated analysis shows is diminished left ventric ular ejection fraction of 37% on rest images. Concentric contractions are present. 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 Cannot exclude reversible ischemia anteroseptal wall mid to apical l evel. The need to further investigate with direct catheter angiogram should be based on degree of cli nical suspicion and EKG correlation. A Yellow level critical message alert has been initiated for Aurdey Grissom DO via the [employer] Critical Results System on 06/17/2022 12:56 PM. This message alert has been sent to Audrey lockhart DO via the preferences provided by the clinician for the receipt of Radiology Critical Findings . Message ID [id number].
[2022-06-17] MEDS ORDERED: NITROGLYCERIN SL TABS 0.4 MG TAB SUBLINGUAL PRN (13:09)
[2022-06-17] MEDS ORDERED: ALPRAZolam 0.25 MG TAB PO PRN (13:09)
[2022-06-17] MEDS ORDERED: ALPRAZolam 0.5 MG TAB PO PRN (13:09)
[2022-06-17 14:09] VITALS: BMI 26.9
--- NOTE | 2022-06-17 14:29 | P.PN ---
Subjective Progress Note Date: 06/17/22 Hospital Course: Patient is a very pleasant 76-year-old female with a past medical history of CAD status post stenting, hypertension, atrial fibrillation on anticoagulation with Xarelto, , and GERD. She presented to the emergency department with a chief complaint of chest pain. Patient reports she has been experiencing midsternal chest pain and shortness of breath intermittently over the past few days. Patient reports today this pain was worse and actually became unbearable. she describes this pain as though someone was sitting on her chest and reports that it is a dull heaviness. She states this chest pain has been accompanied by shortness of breath, palpitations, dizziness, lightheadedness, nausea, and generalized fatigue. She denies radiation of pain and denies experiencing any fevers, chills, diaphoresis, cough or congestion, abdominal pain, vomiting, or experiencing any numbness/tingling/focal weakness in extremities. Upon arrival to the emergency department patient was in hypertensive urgency with blood pressure 172/110 and heart rate of 95. EKG revealing atrial fibrillation with a controlled ventricular rate at 89 bpm with a left bundle branch block (left bundle-branch block is chronic and was noted on previous EKG completed 2020). Chest x-ray revealing mild emphysema but negative for acute cardiopulmonary process.CBC, coags, and CMP showing no significant abnormalities. Troponin less than 0.012. Patient has been admitted under our services with consultation to cardiology. Progress Note Update: Pts stress test was positive for possible reversible ischemia. Plan for [facility] tomorrow AM. Physical exam: Gen: awake, alert HEENT: normocephalic, atraumatic, good hearing acuity, moist mucous membranes Resp: good air exchange, breathing comfortably with no accessory muscle use CVS: good distal perfusion x 4, GI: soft, NTTP, ND : no SPT, no CVAT, nuñez catheter not present MSK: no pitting edema, no clubbing Neuro: non-focal, moving all extremities Psych: cooperative, euthymic mood Assessment and Plan of Care: Chest pain, rule out acute coronary event Atrial fibrillation Hypertensive urgency -Cardiology consult, appreciate further recommendations -Telemetry monitoring and close monitoring of vital signs every 4 hours. -Trend troponins -Cardiac diet, NPO at midnight -Continue cardiac medication regimen consisting of Xarelto, nadolol, and aspirin. -Lipid profile with a.m. labs. -Echocardiogram with reduced EF, mod-severe pHTN. -NM Lexiscan appears positive for reversible ischemia. COPD -Duo nebs every 2 hours as needed for wheezing/shortness of breath. GERD -Continue PPI with Protonix 40 mg twice a day CODE STATUS: full code DVT prophylaxis: Xarelto Anticipated discharge date: 1-[address]: Home Objective - Vital Signs Vital signs: Vital Signs Temp 97.3 F L 06/17/22 13:00 Pulse 91 06/17/22 13:00 Resp 14 06/17/22 13:00 BP 168/88 06/17/22 13:00 Pulse Ox 99 06/17/22 13:00 FiO2 Intake & Output 06/16/22 06/17/22 06/17/22 18:59 06:59 18:59 Weight 71.214 kg 71.214 kg Other: Voiding Method Toilet Toilet # Voids 2 3 # Bowel Movements 1 - Labs CBC & Chem 7: 06/16/22 08:22 06/16/22 08:22
[2022-06-17] MEDS: ACETAMINOPHEN TAB 325 MG TAB PO PRN (19:53)
[2022-06-17] MEDS: SODIUM CHLORIDE 0.9% 1,000 ML in EMPTY BAG 1 BAG IV SCH (21:57)
[2022-06-18] MEDS ORDERED: ATORVASTATIN 80 MG TAB PO ONE (05:00)
[2022-06-18] MEDS ORDERED: ASPIRIN 325 MG TAB PO ONE (05:00)
[2022-06-18] MEDS ORDERED: HEPARIN SODIUM,PORCINE 2,500 UNIT in SODIUM CHLORIDE 0.9% 250 ML IRRIGATION PRN (07:00)
[2022-06-18] MEDS ORDERED: HEPARIN SODIUM,PORCINE 10,000 UNIT in SODIUM CHLORIDE 0.9% 1,000 ML IRRIGATION PRN (07:00)
[2022-06-18] MEDS: IPRATROPIUM-ALBUTEROL 3 ML NEB INHALATION PRN ×3 (07:48→18:44)
[2022-06-18] MEDS: ASPIRIN 81 MG PO SCH (08:49)
[2022-06-18] MEDS: CYANOCOBALAMIN 500 MCG TAB PO SCH (08:49)
[2022-06-18] MEDS: PANTOPRAZOLE 40 MG TABLET PO SCH ×2 (08:49→21:17)
[2022-06-18] MEDS: LOSARTAN 50 MG TAB PO SCH (08:50)
[2022-06-18] MEDS: PREGABALIN 75 MG CAP PO SCH ×2 (08:50→21:17)
[2022-06-18] MEDS: CHOLECALCIFEROL 25 MCG (1000 IU) TABLET PO SCH (08:50)
[2022-06-18] MEDS: DULoxetine HCL 30 MG CAPSULE.DR PO SCH (10:01)
[2022-06-18] MEDS ORDERED: HEPARIN SODIUM 1,000 UN/ML (10ML VL) ONE (10:36)
[2022-06-18] MEDS ORDERED: fentaNYL (PF) 50 MCG/ML 2 ML AMP ONE (10:36)
[2022-06-18] MEDS ORDERED: VERAPAMIL 2.5 MG/ML 2 ML AMP ONE (10:36)
[2022-06-18] MEDS ORDERED: IV FLUID CONTINUATION 1,000 ML IV ONE (11:14)
[2022-06-18] MEDS ORDERED: fentaNYL (PF) 50 MCG/ML 2 ML AMP IV ONE ×3 (11:20→11:36)
[2022-06-18] MEDS ORDERED: LIDOCAINE 1% INJ 10MG/ML (30 ML VIAL-PF) SQ ONE ×2 (11:20→11:41)
[2022-06-18] MEDS ORDERED: VERAPAMIL SYRINGE (5 MG/10 ML) INTRAARTER ONE (11:42)
[2022-06-18] MEDS ORDERED: MIDAZOLAM 2 MG/2 ML VIAL IV ONE (11:43)
[2022-06-18] MEDS ORDERED: HEPARIN SODIUM 1,000 UN/ML (10ML VL) IV ONE (11:48)
[2022-06-18] MEDS ORDERED: IOPAMIDOL-370 125ML BTL INJ ONE (11:53)
[2022-06-18] MEDS ORDERED: RX INFO: IV CONTRAST WAS GIVEN 1 EACH MISC MISCELLANE PRN (12:00)
[2022-06-18] MEDS ORDERED: SODIUM CHLORIDE 0.9% 1,000 ML IV SCH (12:00)
--- NOTE | 2022-06-18 12:06 | P.CARDCATH ---
Date of Procedure: 06/18/22 Description of Procedure: Cardiac Catheterization: The patient is a 76 female known history of hypertension, chronic persistent atrial fibrillation who presented with symptoms of chest discomfort, had an abnormal MPI. Recommendations were made regarding cardiac catheterization, the risks and the complications were discussed with the patient who is in full understanding and agreement. 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 Using Xylocaine Anesthesia and Seldinger technique, a 6-[place] sheath was introduced in the right radial artery . Subsequently, selective coronary angiography was performed using a 5-[place]ander 3.5 bend Bryan catheter. Multiple views of the coronary artery including hemiaxial views were obtained. The right Bryan catheter was used to cross the aortic valve and LVEDP was calculated. Following that, catheter and sheath were removed. Hemostasis was obtained with deployment of TR band . There was no immediate complication. Patient was returned to room in stable condition. Of note, the patient received a total of 3500 units of intravenous heparin as well as intra-arterial verapamil. Findings: Fluoroscopy: There is calcification involving the LAD Left main: This is a large size vessel, short, bifurcating into LAD and left circumflex, left main has no high-grade stenosis LAD: This is a large size vessel, reaching to the apex giving rise to 2 diagonal branch, the second one is large in caliber. The proximal LAD has a 50% plaque and there is another 50% plaque at the takeoff of the second branch, the rest of the vessel has no evidence of high-grade stenosis Left circumflex: This is a large dominant vessel giving rise to large obtuse margin branch and distally to a PDA and PLV, the left circumflex has no high- grade stenosis RCA: This is a small nondominant vessel that has no evidence of high-grade stenosis Left Ventriculogram: Not performed Hemodynamics: There was no gradient across the aortic valve , LVEDP was 14-16 mmHg Conclusion: 1. Calcified LAD 2. Moderate disease in the mid and proximal LAD with no progression compared to 2014 3. Left dominance 4. No evidence of obstructive disease in the circumflex or RCA Recommendations: The patient has no significant progression compared to 2014, I have recommended to continue aggressive coronary risks modifications. The findings and the recommendations were discussed with the patient and the family and they were in full understanding and agreement. Duration of sedation is 12 minutes.
--- NOTE | 2022-06-18 13:51 | P.PN ---
Subjective Progress Note Date: 06/18/22 Hospital Course: Patient is a very pleasant 76-year-old female with a past medical history of CAD status post stenting, hypertension, atrial fibrillation on anticoagulation with Xarelto, , and GERD. She presented to the emergency department with a chief complaint of chest pain. Patient reports she has been experiencing midsternal chest pain and shortness of breath intermittently over the past few days. Patient reports today this pain was worse and actually became unbearable. she describes this pain as though someone was sitting on her chest and reports that it is a dull heaviness. She states this chest pain has been accompanied by shortness of breath, palpitations, dizziness, lightheadedness, nausea, and generalized fatigue. She denies radiation of pain and denies experiencing any fevers, chills, diaphoresis, cough or congestion, abdominal pain, vomiting, or experiencing any numbness/tingling/focal weakness in extremities. Upon arrival to the emergency department patient was in hypertensive urgency with blood pressure 172/110 and heart rate of 95. EKG revealing atrial fibrillation with a controlled ventricular rate at 89 bpm with a left bundle branch block (left bundle-branch block is chronic and was noted on previous EKG completed 2020). Chest x-ray revealing mild emphysema but negative for acute cardiopulmonary process.CBC, coags, and CMP showing no significant abnormalities. Troponin less than 0.012. Patient has been admitted under our services with consultation to cardiology. Progress Note Update: [facility] today showed no progression of disease. Pt this morning c/o feeling overall poor. Will observe overnight. Physical exam: Gen: awake, alert HEENT: normocephalic, atraumatic, good hearing acuity, moist mucous membranes Resp: good air exchange, breathing comfortably with no accessory muscle use CVS: good distal perfusion x 4, GI: soft, NTTP, ND : no SPT, no CVAT, nuñez catheter not present MSK: no pitting edema, no clubbing Neuro: non-focal, moving all extremities Psych: cooperative, euthymic mood Assessment and Plan of Care: Chest pain, rule out acute coronary event Atrial fibrillation Hypertensive urgency -Cardiology consult, appreciate further recommendations -Telemetry monitoring and close monitoring of vital signs every 4 hours. -Trend troponins -Cardiac diet, NPO at midnight -Continue cardiac medication regimen consisting of Xarelto, nadolol, and aspirin. -Lipid profile with a.m. labs. -Echocardiogram with reduced EF, mod-severe pHTN. -NM Lexiscan appears positive for reversible ischemia. -LHC shows no progression of LAD disease, no disease in LCx and RCA COPD -Duo nebs every 2 hours as needed for wheezing/shortness of breath. GERD -Continue PPI with Protonix 40 mg twice a day CODE STATUS: full code DVT prophylaxis: Xarelto Anticipated discharge date: 1-[address]: Home Objective - Vital Signs Vital signs: Vital Signs Temp 97.8 F 06/18/22 07:52 Pulse 82 06/18/22 08:01 Resp 20 06/18/22 07:52 BP 146/88 06/18/22 07:52 Pulse Ox 97 06/18/22 07:52 FiO2 21 06/17/22 19:50 Intake & Output 06/17/22 06/18/22 06/18/22 18:59 06:59 18:59 Intake Total 118 50 Balance 118 50 Weight 71.214 kg Intake: IV 50 Oral 118 Other: Voiding Method Toilet Toilet # Voids 3 3 # Bowel Movements 1 - Labs CBC & Chem 7: 06/16/22 08:22 06/16/22 08:22
[2022-06-18] MEDS: SODIUM CHLORIDE 0.9% 1,000 ML in EMPTY BAG 1 BAG IV SCH ×2 (15:35→21:13)
[2022-06-18] MEDS: ACETAMINOPHEN TAB 325 MG TAB PO PRN (21:22)
[2022-06-19 05:04] LABS: African American GFR (CKD) >90 (>60 ml/min/1.73 sqM); Anion Gap 10 mmol/L; Blood Urea Nitrogen 16 mg/dL (7-17); Calcium 8.7 mg/dL (8.4-10.2); Carbon Dioxide 21 mmol/L (22-30); Chloride 108 mmol/L (98-107); Glucose 96 mg/dL (74-99); Non-African American GFR(CKD) >90 (>60 ml/min/1.73 sqM); Potassium 3.2 mmol/L (3.5-5.1); Sodium 139 mmol/L (137-145)
[2022-06-19 07:55] VITALS: RESP 14; TEMP 97.4
[2022-06-19] MEDS ORDERED: POTASSIUM CHLORIDE ER 20 MEQ TAB.ER PO STA (08:07)
[2022-06-19] MEDS: CYANOCOBALAMIN 500 MCG TAB PO SCH (08:21)
[2022-06-19] MEDS: PANTOPRAZOLE 40 MG TABLET PO SCH (08:21)
[2022-06-19] MEDS: DULoxetine HCL 30 MG CAPSULE.DR PO SCH ×2 (08:21→08:37)
[2022-06-19] MEDS: CHOLECALCIFEROL 25 MCG (1000 IU) TABLET PO SCH (08:22)
[2022-06-19] MEDS: PREGABALIN 75 MG CAP PO SCH (08:22)
[2022-06-19] MEDS: ASPIRIN 81 MG PO SCH (08:22)
[2022-06-19] MEDS: LOSARTAN 50 MG TAB PO SCH (08:23)
[2022-06-19] MEDS: IPRATROPIUM-ALBUTEROL 3 ML NEB INHALATION PRN ×2 (08:27→12:07)
[2022-06-19] MEDS ORDERED: ATORVASTATIN 40 MG TAB PO SCH (09:00)
[2022-06-19] MEDS ORDERED: RIVAROXABAN 20 MG TAB PO STA (13:01)
[2022-06-19 13:07] VITALS: BP 143/94; PULSE 84
--- NOTE | 2022-06-19 13:32 | P.PN ---
Subjective Progress Note Date: 06/19/22 This is a Pleasant 76-year-old female patient who follows in the office with Dr. Castorena. She has a history of atrial fibrillation, paroxysmal in the past, likely persistent at this time, history of hypertension, hyperlipidemia and CAD with cardiac catheterization in 2019 showing a 40-50% lesion involving the proximal LAD. Presented to the hospital with chest heaviness that has been pretty persistent since Tuesday worse this morning. Also getting occasional palpitations and complaining of some shortness of breath. Over the last 5 or 6 months she's also been complaining of fatigue, lower extremity weakness, poor appetite and a 35 pound weight loss. She is following with her primary care provider in this regard and recently had a computed tomography scan and was told that showed multiple cysts. She is also been seen by Dr. Alisha Hallman and is scheduled for endoscopy in the next couple of months. She does have a history of ulcers in the past but has had no signs of bleeding and her hemoglobin is 12.4. Upon admission troponin has been negative 1. EKG on admission showed fibrillation with a controlled ventricular response, left bundle branch block and occasional PVCs, unchanged from previous. Blood pressure has been elevated but she has not received her morning medications yet today. Upon examination she is resting comfortably on a stretcher in the emergency department. Continues to have heaviness in the chest worsened at times throughout our conversation. It is not clearly related to activity. Denies palpitations at this time. She will remains in atrial fibrillation with her heart rates 90s to low 100s. 06/19/2022 The patient underwent cardiac catheterization yesterday which revealed calcified LAD, moderate disease in the mid and proximal LAD with no progression compared to 2013, left dominance and no evidence of obstructive disease in the circumflex RCA. The patient was seen and examined dressing topically in a chair the bedside. She is currently being supplemented for hypokalemia with a potassium of 3.2 this morning. Renal function is stable. She is overall feeling better compared to admission but does not feel she is back to her baseline. Objective - Vital Signs Vital signs: Vital Signs Temp 97.4 F L 06/19/22 07:00 Pulse 69 06/19/22 11:00 Resp 14 06/19/22 07:00 BP 144/99 06/19/22 11:00 Pulse Ox 100 06/19/22 11:00 FiO2 21 06/17/22 19:50 Intake & Output 06/18/22 06/19/22 06/19/22 18:59 06:59 18:59 Intake Total 50 240 Output Total 0 0 Balance 50 0 240 Intake: IV 50 Oral 240 Output: Emesis 0 0 Other: Voiding Method Toilet # Voids 2 - Exam HEENT: Head is atraumatic, normocephalic. Pupils are equal, round. Sclerae anicteric. Conjunctivae are clear. Mucous membranes of the mouth are moist. Neck is supple. There is no elevated jugular venous pressure. No carotid bruit is heard. CHEST EXAMINATION: Clear to auscultation bilaterally. No wheezes rales or rhonchi. Respirations even and nonlabored. HEART EXAMINATION: Heart irregular rate and rhythm, positive S1 and S2. No S3. No S4. Systolic murmur. ABDOMEN: Soft, tender. Bowel sounds are heard. No organomegaly noted. EXTREMITIES: 2+ peripheral pulses with no evidence of peripheral edema and no ca lf tenderness noted. Right radial puncture site apparently developed hematoma yesterday is currently soft with ecchymosis. NEUROLOGIC EXAMINATION: Patient is awake, alert and oriented x3. - Labs CBC & Chem 7: 06/16/22 08:22 06/19/22 03:56 Labs: Abnormal Lab Results - Last 24 Hours (Table) 06/19/22 Range/Units 03:56 Potassium 3.2 L (3.5-5.1) mmol/L Chloride 108 H (98-107) mmol/L Carbon Dioxide 21 L (22-30) mmol/L Assessment and Plan Assessment: #1 symptoms of chest heaviness and shortness of breath and palpitations, troponins have been negative 1 and there are no changes on EKG with an underlying left bundle branch block #2 hypertension #3 CAD with a known 40-50% lesion involving the proximal LAD, stable on cardiac catheterization done yesterday #4 hyperlipidemia #5 symptoms of fatigue, weakness, decreased appetite and 35 pound weight gain over the last 5-6 months Plan: From cardiology's perspective she is stable for discharge home. She will follow-up in the office for site check by one of the registered nurses next week and will subsequently be scheduled for follow-up with Dr. Castorena. LEGAL OFFICER note has been reviewed, I agree with a documented findings and plan of care. Patient was seen and examined.
--- NOTE | 2022-06-19 18:13 | P.DS ---
Providers Date of admission: 06/17/22 18:03 Expected date of discharge: 06/19/22 Attending physician: Audrey Grissom DO Consults: 06/16/22 10:29 Consult Physician Urgent Consulting Provider: [facility] Consult Reason/Comments: Unstable angina Do you want consulting provider notified?: Yes Primary care physician: [facility] Course: Chest pain, rule out acute coronary event Atrial fibrillation Hypertensive urgency COPD GERD Hospital Course: Patient is a very pleasant 76-year-old female with a past medical history of CAD status post stenting, hypertension, atrial fibrillation on anticoagulation with Xarelto, , and GERD. She presented to the emergency department with a chief complaint of chest pain. Patient reports she has been experiencing midsternal chest pain and shortness of breath intermittently over the past few days. Patient reports today this pain was worse and actually became unbearable. she describes this pain as though someone was sitting on her chest and reports that it is a dull heaviness. She states this chest pain has been accompanied by shortness of breath, palpitations, dizziness, lightheadedness, nausea, and generalized fatigue. She denies radiation of pain and denies experiencing any fevers, chills, diaphoresis, cough or congestion, abdominal pain, vomiting, or experiencing any numbness/tingling/focal weakness in extremities. Upon arrival to the emergency department patient was in hypertensive urgency with blood pressure 172/110 and heart rate of 95. EKG revealing atrial fibrillation with a controlled ventricular rate at 89 bpm with a left bundle branch block (left bundle-branch block is chronic and was noted on previous EKG completed 2020). Chest x-ray revealing mild emphysema but negative for acute cardiopulmonary process.CBC, coags, and CMP showing no significant abnormalities. Troponin less than 0.012. Patient has been admitted under our services with consultation to cardiology. 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 Patient was subsequently taken for left heart catheterization which showed no progression of her known coronary artery disease. Patient was monitored overnight to ensure improvement of symptoms. She was discharged home today with instructions to follow-up with cardiology, primary care physician. I spent 34 minutes coordinating this discharge, discharge date 06/19. Physical exam: Gen: awake, alert HEENT: normocephalic, atraumatic, good hearing acuity, moist mucous membranes Resp: good air exchange, breathing comfortably with no accessory muscle use CVS: good distal perfusion x 4, GI: soft, NTTP, ND : no SPT, no CVAT, nuñez catheter not present MSK: no pitting edema, no clubbing Neuro: non-focal, moving all extremities Psych: cooperative, euthymic mood Patient Condition at Discharge: Good Plan - Discharge Summary Discharge Rx Participant: No New Discharge Prescriptions: New Losartan [Cozaar] 50 mg PO DAILY #30 tab Nitroglycerin Sl Tabs [Nitrostat] 0.4 mg SUBLINGUAL Q5M PRN #30 tab PRN Reason: Chest Pain Acetaminophen Tab [Tylenol] 650 mg PO Q4HR PRN tab PRN Reason: Fever And/ Or Pain Aspirin 81 mg PO DAILY #30 tab Atorvastatin [Lipitor] 40 mg PO DAILY #30 tab Continue Pantoprazole Sodium [Protonix] 40 mg PO BID estradioL [Estrace] 2 mg PO DAILY DULoxetine HCL [Cymbalta] 30 mg PO DAILY Lysine 500 mg PO DAILY #0 Glucosam/Chond/Hyalu/Cf Borate [Move Free Joint Health Tablet] 1 tab PO DAILY nadoloL [Corgard] 40 mg PO QAM Pregabalin [Lyrica] 75 mg PO BID #14 cap Cholecalciferol [Vitamin D3 (25 Mcg = 1000 Iu)] 25 mcg PO DAILY Rivaroxaban [Xarelto] 20 mg PO DAILY Potassium Citrate 99 mg PO DAILY Cyanocobalamin (Vitamin B-12) [Vitamin B-12] 1,000 mcg PO DAILY Discharge Medication List Pantoprazole Sodium [Protonix] 40 mg PO BID 05/14/14 [History] estradioL [Estrace] 2 mg PO DAILY 05/14/14 [History] DULoxetine HCL [Cymbalta] 30 mg PO DAILY 10/06/19 [History] Glucosam/Chond/Hyalu/Cf Borate [Move Free Joint Health Tablet] 1 tab PO DAILY 05/02/20 [History] Lysine 500 mg PO DAILY #0 05/02/20 [History] nadoloL [Corgard] 40 mg PO QAM 05/02/20 [History] Pregabalin [Lyrica] 75 mg PO BID #14 cap 05/24/20 [Rx] Rivaroxaban [Xarelto] 20 mg PO DAILY 12/02/21 [History] Cholecalciferol [Vitamin D3 (25 Mcg = 1000 Iu)] 25 mcg PO DAILY 06/16/22 [History] Cyanocobalamin (Vitamin B-12) [Vitamin B-12] 1,000 mcg PO DAILY 06/16/22 [History] Potassium Citrate 99 mg PO DAILY 06/16/22 [History] Acetaminophen Tab [Tylenol] 650 mg PO Q4HR PRN tab 06/19/22 [Rx] Aspirin 81 mg PO DAILY #30 tab 06/19/22 [Rx] Atorvastatin [Lipitor] 40 mg PO DAILY #30 tab 06/19/22 [Rx] Losartan [Cozaar] 50 mg PO DAILY #30 tab 06/19/22 [Rx] Nitroglycerin Sl Tabs [Nitrostat] 0.4 mg SUBLINGUAL Q5M PRN #30 tab 06/19/22 [Rx] Follow up Appointment(s)/Referral(s): Sergey Castorena MD [STAFF PHYSICIAN] - 07/05/22 2:15 pm [facility], [NON-STAFF] - 1-2 Days Isaiah Estrada [Primary Care Provider] - 1-2 days Patient Instructions/Handouts: After Radial Heart Catheterization (GEN) Discharge Disposition: HOME WITH HOME HEALTH SERVICES
== END 2022-06-19 14:35 | disposition home health service (06) | DRG 287 ==
LOC: EC 07:55 → 6NMEDSUR 10:51 → OBSVTOIN 06-17 18:03 → 6NMEDSUR 06-18 23:20
PROVIDERS: ADMIT Internal Medicine; ATTEND Internal Medicine
PROC: 4A023N7 Measurement of Cardiac Sampling and Pressure, Left Heart, Percutaneous Approach (ICD-10-PCS; principal; 2022-06-18 10:30)
PROC: B2111ZZ Fluoroscopy of Multiple Coronary Arteries using Low Osmolar Contrast (ICD-10-PCS; principal; 2022-06-18 10:30)
DX: I25.110 Atherosclerotic heart disease of native coronary artery with unstable angina pectoris (principal); I47.1 Supraventricular tachycardia; I48.92 Unspecified atrial flutter; E03.9 Hypothyroidism, unspecified; E78.5 Hyperlipidemia, unspecified; E87.6 Hypokalemia; F32.A Depression, unspecified; I10 Essential (primary) hypertension; I16.0 Hypertensive urgency; I25.2 Old myocardial infarction; I44.7 Left bundle-branch block, unspecified; I48.0 Paroxysmal atrial fibrillation; I73.9 Peripheral vascular disease, unspecified; J43.9 Emphysema, unspecified; K21.9 Gastro-esophageal reflux disease without esophagitis; M06.9 Rheumatoid arthritis, unspecified; M79.7 Fibromyalgia; G89.29 Other chronic pain; M54.2 Cervicalgia; M54.9 Dorsalgia, unspecified; M19.90 Unspecified osteoarthritis, unspecified site; R13.10 Dysphagia, unspecified; Z79.01 Long term (current) use of anticoagulants; Z79.890 Hormone replacement therapy; Z79.899 Other long term (current) drug therapy; Z82.49 Family history of ischemic heart disease and other diseases of the circulatory system; Z85.820 Personal history of malignant melanoma of skin; Z87.442 Personal history of urinary calculi; Z95.5 Presence of coronary angioplasty implant and graft; Z88.6 Allergy status to analgesic agent; Z88.5 Allergy status to narcotic agent; Z88.0 Allergy status to penicillin; Z88.2 Allergy status to sulfonamides; Z71.3 Dietary counseling and surveillance
CPT/HCPCS: 36415; 71046; 78452; 80048; 80053; 80061; 83735; 83880; 84443; 84484; 85025; 85610; 85730; 93005; 93017; 93306; 93458; 94640; 94760

== ENCOUNTER → 2022-07-08 | Outpatient (CLI) | payer MEDICARE, BC ==
--- NOTE | 2022-07-08 14:38 | US ---
EXAMINATION TYPE: US transvaginal DATE OF EXAM: 07/08/2022 COMPARISON: CT abdomen and pelvis June 11, 2022 CLINICAL HISTORY: N83.209 Ovarian cyst. Follow up left ovarian cyst from CT. Patient states she has had a full hysterectomy and doesn't have ovaries. TECHNIQUE: Transvaginal (TV). Date of LMP: PATTERN SETTER, Unknown EXAM MEASUREMENTS: 1. Uterus: Surgically absent 2. Endometrium: Surgically absent 3. Right Ovary: Surgically absent 4. Left Ovary: Surgically absent 5. Bilateral Adnexa: cystic lesion with septation, unable to determine origin = 3.3 x 2.1 x 2.5 cm 6. Posterior cul-de-sac: no free fluid Uterus surgically absent. No free fluid on current study. Left adnexa has oval thin-walled cyst or cystic lesion within. The and increased through transmission measuring 3.3 x 2.1 x 2.5 cm without internal vascularity. O-Rads 2 almost certainly benign. IMPRESSION: As above.
== END | disposition home or self-care (01) ==
LOC: RADUSWWP 13:37
PROVIDERS: ATTEND Family Medicine
DX: N83.202 Unspecified ovarian cyst, left side (principal)
CPT/HCPCS: 76830

== ENCOUNTER → 2022-07-22 | Outpatient (CLI) | payer MEDICARE, BC ==
--- NOTE | 2022-07-22 15:57 | CT ---
EXAMINATION TYPE: CT chest w con DATE OF EXAM: 07/22/2022 COMPARISON: 01/01/2022 HISTORY: fatigue, anemia and weightloss CT DLP: 237.70 mGycm Automated exposure control for dose reduction was used. CONTRAST: CT scan of the chest is performed with IV Contrast, patient injected with 80 mL of Isovue 300. FINDINGS: LUNGS: The lungs are grossly clear, there is no concerning parenchymal mass or nodule identified. T here is no pleural effusion or pneumothorax seen. The tracheobronchial tree is patent. MEDIASTINUM: There are no greater than 1 cm hilar or mediastinal lymph nodes. No pericardial effusi on is seen. Thoracic aorta is of normal caliber. The heart is not enlarged. UPPER ABDOMEN: No significant abnormality appreciated. OTHER: No additional significant abnormality is seen. IMPRESSION: The lungs are clear and free of infiltrate. Interstitial changes seen previously are not reproduced. If symptoms persist consider transbronchial biopsy.
== END | disposition home or self-care (01) ==
LOC: RADCTMAIN 12:05
PROVIDERS: ATTEND Family Medicine
DX: I27.20 Pulmonary hypertension, unspecified (principal); I25.10 Atherosclerotic heart disease of native coronary artery without angina pectoris; D64.9 Anemia, unspecified; N83.209 Unspecified ovarian cyst, unspecified side; R63.4 Abnormal weight loss; R53.83 Other fatigue
CPT/HCPCS: 82565; 84520; 71260; Q9967

== ENCOUNTER 2022-08-04 07:29 | Day surgery (SDC) | payer MEDICARE, BC ==
[2022-08-03 09:16] VITALS: BMI 27.3
[~2022-08-04 07:29] MED LIST changes: -ALBUTEROL NEB (CONC) 2.5 MG/0.5 ML INHALATION ONE; -LIDOCAINE 2% (PF) 20 MG/ML 5 ML VIAL INHALATION ONE; -LIDOCAINE VISCOUS 300 MG/15 ML CUP MUCOUS MEM ONE
[2022-08-04] MEDS ORDERED: ONDANSETRON 4 MG/2 ML VIAL ONE (08:15)
[2022-08-04 08:20] VITALS: TEMP 97
[2022-08-04] MEDS ORDERED: PROPOFOL 10 MG/ML 20 ML VIAL IV ONE (08:52)
--- NOTE | 2022-08-04 09:12 | P.PCN ---
Date of Procedure: 08/04/22 Procedure(s) Performed: BRIEF HISTORY: Patient is a 77-year-old, pleasant, white female scheduled for an upper endoscopy as a part of evaluation of gastroesophageal reflux symptoms, intermittent epigastric pain and occasional dysphagia to solids. She also stated that she was diagnosed with iron deficiency anemia. History of A. fib and has been on Xarelto for many years.. PROCEDURE PERFORMED: Esophagogastroduodenoscopy with biopsy. PREOPERATIVE DIAGNOSIS: Epigastric pain/chronic diarrhea/intermittent dysphagia to solids deficiency anemia. IV sedation per anesthesia. PROCEDURE: After informed consent was obtained, the patient was brought into the endoscopy unit. IV sedation was administered by Anesthesia under continuous monitoring. Initially the Olympus GIF-140 video endoscope was inserted into the mouth. Esophagus intubated without any difficulty. It was gradually advanced into the stomach and duodenum and carefully examined. The bulb and the second part of the duodenum appeared normal. Biopsies were done from the duodenum to rule out celiac disease. The scope at this time was withdrawn to the stomach, adequately insufflated with air, and upon careful examination, mucosa of the antrum, and mild gastritis and biopsies were done from this area. There were no erosions or ulcerations noted. Mucosa of the body, cardia and the fundus appeared normal. The scope was then withdrawn into the esophagus. The GE junction was located at 39 cm from the incisors. The esophagus appeared normal. There were no erosions or ulcerations seen and the patient tolerated the procedure well. IMPRESSION: 1. Mild antral gastritis. 2. No evidence of esophagitis or esophageal stricture. RECOMMENDATIONS: The findings of this examination were discussed with the patient as well as a family. She was advised to follow with the biopsy results. She will continue with Protonix 40 mg twice daily and follow antrum reflux measures. Because of iron deficiency anemia she was investigated further and will be scheduled for an colonoscopy and if negative a small bowel capsule endoscopy .
[2022-08-04 09:41] VITALS: BP 149/82; PULSE 79; RESP 18
== END 2022-08-04 09:50 ==
LOC: ORWHC2ENDO 07:29
PROVIDERS: ATTEND Internal Medicine Gastroenterology
DX: K29.50 Unspecified chronic gastritis without bleeding (principal); K52.9 Noninfective gastroenteritis and colitis, unspecified; D50.9 Iron deficiency anemia, unspecified; I48.91 Unspecified atrial fibrillation; I25.2 Old myocardial infarction; I11.0 Hypertensive heart disease with heart failure; I50.9 Heart failure, unspecified; J44.9 Chronic obstructive pulmonary disease, unspecified; K21.9 Gastro-esophageal reflux disease without esophagitis; K27.9 Peptic ulcer, site unspecified, unspecified as acute or chronic, without hemorrhage or perforation; F32.A Depression, unspecified; Z79.01 Long term (current) use of anticoagulants; Z88.0 Allergy status to penicillin; Z79.899 Other long term (current) drug therapy
CPT/HCPCS: 88305; 43239; J2405; J2704

== ENCOUNTER 2022-08-09 18:32 | Observation (INO) | payer MEDICARE, BC ==
--- NOTE | 2022-08-09 19:43 | XR ---
EXAMINATION TYPE: XR chest 2V DATE OF EXAM: 08/09/2022 7:39 PM COMPARISON: Chest radiographs from 06/16/2022 TECHNIQUE: XR chest 2V Frontal and lateral views of the chest. CLINICAL INDICATION:Female, 77 years old with history of shortness of breath; FINDINGS: Lungs/Pleura: There is flattening of the diaphragm with increased lucency of the lungs. No evidence o f pneumothorax, pleural effusion or focal consolidation. Pulmonary vascularity: Unremarkable. Heart/mediastinum: Cardiomediastinal silhouette is enlarged and stable. Musculoskeletal: No acute osseous pathology. There is fixation hardware in the lower cervical spine. Multilevel disc degeneration changes of the spine. IMPRESSION: 1. No acute cardiopulmonary disease process. 2. COPD changes.
[2022-08-09 19:51] LABS: Basophils # (A) 0.1 k/uL (0-0.2); Basophils % (A) 1 %; Eosinophils # (A) 0.3 k/uL (0-0.7); Eosinophils % (A) 5 %; HCT 36.4 % (34.0-46.0); HGB 12.1 gm/dL (11.4-16.0); Hypochromasia Slight; Lymphocytes # (A) 1.1 k/uL (1.0-4.8); Lymphocytes % (A) 22 %; MCH 34.2 pg (25.0-35.0); MCHC 33.3 g/dL (31.0-37.0); MCV 102.6 fL (80.0-100.0); Macrocytosis Slight; Mean Platelet Volume 8.9; Monocytes # (A) 0.5 k/uL (0-1.0); Monocytes % (A) 9 %; Neutrophils % (A) 60 %; Platelet Count 207 k/uL (150-450); RBC 3.54 m/uL (3.80-5.40); RDW 14.2 % (11.5-15.5); WBC 5.1 k/uL (3.8-10.6)
[2022-08-09 20:10] LABS: INR 1.2 (<1.2); Partial Thromboplastin Time 34.1 sec (22.0-30.0); Prothrombin Time 12.5 sec (9.0-12.0)
[2022-08-09 20:16] LABS: ALT 17 U/L (4-34); AST 22 U/L (14-36); African American GFR (CKD) >90 (>60 ml/min/1.73 sqM); Albumin 3.9 g/dL (3.5-5.0); Alkaline Phosphatase 65 U/L (38-126); Anion Gap 12 mmol/L; Blood Urea Nitrogen 18 mg/dL (7-17); Carbon Dioxide 19 mmol/L (22-30); Chloride 105 mmol/L (98-107); Glucose 98 mg/dL (74-99); Non-African American GFR(CKD) 85 (>60 ml/min/1.73 sqM); Potassium 3.7 mmol/L (3.5-5.1); Sodium 136 mmol/L (137-145); Total Bilirubin 0.5 mg/dL (0.2-1.3); Total Protein 6.6 g/dL (6.3-8.2)
--- NOTE | 2022-08-09 22:42 | ED ---
General Adult HPI - General Chief complaint: Recheck/Abnormal Lab/Rx Stated complaint: AFib Time Seen by Provider: 08/09/22 22:07 Source: patient Mode of arrival: ambulatory Limitations: no limitations - History of Present Illness Initial comments: Patient is a 77-year-old female presenting with chief complaint of chest pain. Patient has history of atrial fibrillation, COPD, ND, and hypertension. Patient has been having intermittent chest pains for the last 3 days. Patient states that these pains are worse when she is exerting herself. She also admits to intermittent difficulty breathing and palpitations. Patient currently takes Xarelto, states that "I can feel myself going into A. fib". She admits to generalized weakness. Patient has a chronic cough, states that she has not noticed any changes to this cough. No sore throat, congestion, fever, chills. No abdominal pain, nausea, vomiting, dysuria, hematuria, flank pain. No radiation of the pain down the arm or up the neck. - Related Data Home Medications Medication Instructions Recorded Confirmed Pantoprazole Sodium [Protonix] 40 mg PO BID 05/14/14 08/04/22 estradioL [Estrace] 2 mg PO DAILY 05/14/14 08/04/22 Glucosam/Chond/Hyalu/Cf Borate 1 tab PO DAILY 05/02/20 08/04/22 [Move Free [employer] Tablet] nadoloL [Corgard] 40 mg PO QAM 05/02/20 08/04/22 Rivaroxaban [Xarelto] 20 mg PO DAILY 12/02/21 08/04/22 Cholecalciferol [Vitamin D3 (25 25 mcg PO DAILY 06/16/22 08/04/22 Mcg = 1000 Iu)] Cyanocobalamin (Vitamin B-12) 1,000 mcg PO DAILY 06/16/22 08/04/22 [Vitamin B-12] Potassium Citrate 99 mg PO DAILY 06/16/22 08/04/22 Acetaminophen Tab [Tylenol] 500 - 1,000 mg PO Q4HR PRN 08/03/22 08/04/22 DULoxetine HCL [Cymbalta] 30 mg PO QAM 08/03/22 08/04/22 Hydroxychloroquine Sulfate 200 mg PO DAILY 08/03/22 08/04/22 [Plaquenil] Leflunomide [Arava] 20 mg PO DAILY 08/03/22 08/04/22 Lysine 500 mg PO DAILY 08/03/22 08/04/22 Previous Rx's Medication Instructions Recorded Pregabalin [Lyrica] 75 mg PO BID #14 cap 05/24/20 Nitroglycerin Sl Tabs [Nitrostat] 0.4 mg SUBLINGUAL Q5M PRN #30 tab 06/19/22 Allergies Allergy/AdvReac Type Severity Reaction Status Date / Time cephalexin monohydrate Allergy HIVES Verified 08/09/22 19:12 [From Keflex] diphenhydramine HCl Allergy SWELLING Verified 08/09/22 19:12 [From Benadryl] OF TONGUE, SOB enoxaparin [From Lovenox] Allergy Rash/Hives Verified 08/09/22 19:12 garlic Allergy Nausea Verified 08/09/22 19:12 Penicillins Allergy SWELLING, Verified 08/09/22 19:12 HIVES aspirin AdvReac EXCESS Verified 08/09/22 19:12 BLEEDING morphine AdvReac Vomiting Verified 08/09/22 19:12 sulfamethoxazole AdvReac Nausea & Verified 08/09/22 19:12 [From Bactrim] Vomiting trimethoprim [From Bactrim] AdvReac Nausea & Verified 08/09/22 19:12 Vomiting milk chocolate Allergy Nausea Uncoded 08/09/22 19:12 Review of Systems ROS Statement: Those systems with pertinent positive or pertinent negative responses have been documented in the HPI. ROS Other: All systems not noted in ROS Statement are negative. Past Medical History Past Medical History: Atrial Flutter, Asthma, Cancer, COPD, GERD/Reflux, GI Bleed, Hypertension, Memory Impairment, Myocardial Infarction (ND), Osteoarthritis (OA), Rheumatoid Arthritis (RA) Additional Past Medical History / Comment(s): Chronic cough. Back pain, migraines. Occasional slight difficulty with swallowing. 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 Hx kidney stones, "kidney function low". Last Myocardial Infarction Date:: 2012 History of Any Multi-Drug Resistant Organisms: None Reported Past Surgical History: Back Surgery, Cholecystectomy, Heart Catheterization, Hy sterectomy, Joint Replacement, Orthopedic Surgery Additional Past Surgical History / Comment(s): RODS & CAGES IN BACK, RIGHT HIP REPLACEMENT, PARTIAL THYROIDECTOMY, BILATERAL KNEE REPLACEMENTS, NECK SURGERY WITH LIDIA AND CAGES, MELANOMA REMOVED FROM FACE X4, REPAIR OF HEMATOMA/FEMORAL ARTERY AFTER HEART CATHETERIZATION,rt foot bone spur removed Past Anesthesia/Blood Transfusion Reactions: Previous Problems w/ Anesthesia, Motion Sickness, Postoperative Nausea & Vomiting (PONV) Additional Past Anesthesia/Blood Transfusion Reaction / Comment(s): Hard to wake up. Past Psychological History: Depression Smoking Status: Never smoker Past Alcohol Use History: None Reported Past Drug Use History: None Reported - Past Family History Sister(s) Family Medical History: Cancer Brother(s) Family Medical History: Cancer Mother Family Medical History: Myocardial Infarction (ND) Additional Family Medical History / Comment(s): Mother of a ND at the age of 76yrs. Father History Unknown: Yes General Exam Limitations: no limitations General appearance: alert, in no apparent distress Head exam: Present: atraumatic, normocephalic, normal inspection Eye exam: Present: normal appearance, PERRL, EOMI. Absent: scleral icterus, conjunctival injection, periorbital swelling Neck exam: Present: normal inspection Respiratory exam: Present: normal lung sounds bilaterally. Absent: respiratory distress, wheezes, rales, rhonchi, stridor Cardiovascular Exam: Present: regular rate, normal rhythm, normal heart sounds. Absent: systolic murmur, diastolic murmur, rubs, gallop, clicks Neurological exam: Present: alert, oriented X3, CN II-XII intact Psychiatric exam: Present: normal affect, normal mood Skin exam: Present: warm, dry, intact, normal color. Absent: rash Course Vital Signs 08/09/22 19:08 Temperature 97.7 F Pulse Rate 70 Respiratory 20 Rate Blood Pressure 146/76 O2 Sat by Pulse 97 Oximetry EKG Findings - EKG Comments: EKG Findings:: Atrial fibrillation rate of 75. QRS duration 136. QT/QTC 410/439. No changes when compared to previous EKG. This EKG was also shown to and interpreted by my attending Dr. Russell Medical Decision Making - Medical Decision Making Patient is a 77-year-old female presenting with chief complaint of chest pain and palpitations. Admits to intermittent difficulty breathing and generalized weakness. Physical examination is unremarkable. No leukocytosis or anemia. Troponin is less than 0.012. EKG shows atrial fibrillation with rate of 75, patient is currently on Xarelto. Chest x-ray shows COPD changes. Covid and influenza testing are pending at this time. Patient will be admitted for observation for chest pain. Patient is agreeable with this plan. I spoke with Dr. Jones who accepted the patient. I discussed this case with my attending Dr. Russell. - Lab Data Result diagrams: 08/09/22 19:32 08/09/22 19:32 Lab Results 08/09/22 08/09/22 08/09/22 Range/Units 19:32 19:32 19:32 WBC 5.1 (3.8-10.6) k/uL RBC 3.54 L (3.80-5.40) m/uL Hgb 12.1 (11.4-16.0) gm/dL Hct 36.4 (34.0-46.0) % MCV 102.6 H (80.0-100.0) fL MCH 34.2 (25.0-35.0) pg MCHC 33.3 (31.0-37.0) g/dL RDW 14.2 (11.5-15.5) % Plt Count 207 (150-450) k/uL MPV 8.9 Neutrophils % 60 % Lymphocytes % 22 % Monocytes % 9 % Eosinophils % 5 % Basophils % 1 % Neutrophils # 3.0 (1.3-7.7) k/uL Lymphocytes # 1.1 (1.0-4.8) k/uL Monocytes # 0.5 (0-1.0) k/uL Eosinophils # 0.3 (0-0.7) k/uL Basophils # 0.1 (0-0.2) k/uL Hypochromasia Slight Macrocytosis Slight PT 12.5 H (9.0-12.0) sec INR 1.2 H (<1.2) APTT 34.1 H (22.0-30.0) sec Sodium 136 L (137-145) mmol/L Potassium 3.7 (3.5-5.1) mmol/L Chloride 105 (98-107) mmol/L Carbon Dioxide 19 L (22-30) mmol/L Anion Gap 12 mmol/L BUN 18 H (7-17) mg/dL Creatinine 0.68 (0.52-1.04) mg/dL Est GFR (CKD-EPI)AfAm >90 (>60 ml/min/1.73 sqM) Est GFR (CKD-EPI)NonAf 85 (>60 ml/min/1.73 sqM) Glucose 98 (74-99) mg/dL Calcium 9.0 (8.4-10.2) mg/dL Total Bilirubin 0.5 (0.2-1.3) mg/dL AST 22 (14-36) U/L ALT 17 (4-34) U/L Alkaline Phosphatase 65 (38-126) U/L Troponin I (0.000-0.034) ng/mL Total Protein 6.6 (6.3-8.2) g/dL Albumin 3.9 (3.5-5.0) g/dL 08/09/22 Range/Units 19:32 WBC (3.8-10.6) k/uL RBC (3.80-5.40) m/uL Hgb (11.4-16.0) gm/dL Hct (34.0-46.0) % MCV (80.0-100.0) fL MCH (25.0-35.0) pg MCHC (31.0-37.0) g/dL RDW (11.5-15.5) % Plt Count (150-450) k/uL MPV Neutrophils % % Lymphocytes % % Monocytes % % Eosinophils % % Basophils % % Neutrophils # (1.3-7.7) k/uL Lymphocytes # (1.0-4.8) k/uL Monocytes # (0-1.0) k/uL Eosinophils # (0-0.7) k/uL Basophils # (0-0.2) k/uL Hypochromasia Macrocytosis PT (9.0-12.0) sec INR (<1.2) APTT (22.0-30.0) sec Sodium (137-145) mmol/L Potassium (3.5-5.1) mmol/L Chloride (98-107) mmol/L Carbon Dioxide (22-30) mmol/L Anion Gap mmol/L BUN (7-17) mg/dL Creatinine (0.52-1.04) mg/dL Est GFR (CKD-EPI)AfAm (>60 ml/min/1.73 sqM) Est GFR (CKD-EPI)NonAf (>60 ml/min/1.73 sqM) Glucose (74-99) mg/dL Calcium (8.4-10.2) mg/dL Total Bilirubin (0.2-1.3) mg/dL AST (14-36) U/L ALT (4-34) U/L Alkaline Phosphatase (38-126) U/L Troponin I <0.012 (0.000-0.034) ng/mL Total Protein (6.3-8.2) g/dL Albumin (3.5-5.0) g/dL Disposition Clinical Impression: Chest pain Disposition: ADMITTED IP TO THIS HOSP Condition: Fair Referrals: Dex Mcneal MD [Primary Care Provider] - 1-2 days Time of Disposition: 22:41 Decision to Admit Reason: Admit from EC Decision Date: 08/09/22 Decision Time: 22:42
[2022-08-09] MEDS ORDERED: NALOXONE 0.4 MG/ML 1 ML VIAL IV PRN (23:08)
[2022-08-10] MEDS: ALBUTEROL HFA INHALER INHALATION PRN ×2 (08:39→14:44)
[2022-08-10] MEDS: SILDENAFIL 20 MG TAB PO SCH ×2 (08:58→15:46)
[2022-08-10] MEDS ORDERED: LOSARTAN 50 MG TAB PO SCH ×2 (09:00→14:30)
[2022-08-10] MEDS ORDERED: RIVAROXABAN 20 MG TAB PO SCH (09:00)
--- NOTE | 2022-08-10 11:02 | P.CRDCN ---
History of Present Illness History of present illness: HISTORY OF PRESENTING ILLNESS This is a pleasant 77-year-old female past medical history significant for intermediate coronary artery disease, paroxysmal atrial fibrillation on Xarelto, hypertension, dyslipidemia, peripheral vascular disease, pulmonary hypertension, COPD, asthma. She follows in the office with Dr. Castorena. We have been asked to see in consultation for chest pain. Patient presents to the emergency department with complaints of shortness of breath, generalized weakness, cough, not feeling well, feeling "warm/feverish" at home for about 2 weeks. She states over the past couple days has been having some chest discomfort, shortness of breath and palpitations. She states she could feel her "A fib acting up". She presents to the emergency department for further evaluation. The chest pain is not aggravated by activity. Nonradiating. She denies any chills, abdominal pain, nausea, vomiting, diaphoresis. She has been having a cough, felt as if she may of had a fever. She denies any other complaints. She is a non-smoker. No history of WA, Stroke, or diabetes. DIAGNOSTICS * EKG reveals atrial fibrillation, heart rate 75. Left bundle branch block. Prior EKG in 05/2022 with similar findings. * Echocardiogram 05/2022 revealed EF of 4550 percent, moderate to severe pulmonary hypertension, moderate tricuspid regurgitation, mild mitral regurgitation, TR peak 74mmHg, RVSP 69mmHg. * Recent cardiac catheterization 06/16/2022 revealed calcified LAD, moderate disease in the mid and proximal LAD with no progression compared to 2013, left dominance, no evidence of obstructive disease in the circumflex or RCA. * Telemetry tracings indicate atrial fibrillation with controlled ventricular rates * Chest xray no acute cardiopulmonary process * Laboratory reviewed, WBC 10.1, Hgb 12.1, platelets 207, troponin negative 3, Covid 19 positive, sodium 136, potassium 3.7, BUN 18, serum creatinine 0.6 * Current home cardiac medications include chlorthalidone 25 mg daily, atorv astatin 40 mg daily, aspirin 80 mg daily, not a lot of 40 mg daily, Xarelto 20 mg daily, losartan 50 mg daily REVIEW OF SYSTEMS At the time of my exam: CONSTITUTIONAL: Denies fever or chills. CARDIOVASCULAR: Denies chest pain, shortness of breath, orthopnea, PND or palpitations. RESPIRATORY: Denies cough. GASTROINTESTINAL: Denies abdominal pain, diarrhea, constipation, nausea or vomiting. MUSCULOSKELETAL: Denies myalgias. NEUROLOGIC: Denies numbness, tingling, headache or weakness. ENDOCRINE: Denies fatigue, weight change, polydipsia or polyurina. GENITOURINARY: Denies burning, hematuria or urgency with micturation. HEMATOLOGIC: Denies history of anemia or bleeding. PHYSICAL EXAMINATION Blood pressure 139/68, heart 71, afebrile, oxygen saturation 98% on room air Limited exam performed covid-19 exposure CONSTITUTIONAL: No apparent distress. HEENT: Head is normocephalic. No JVD. HEART EXAMINATION: Irregular NEUROLOGIC EXAMINATION: Patient is awake, alert and oriented x3. ASSESSMENT Chest discomfort, acute coronary syndrome has been ruled out Moderate to severe Pulmonary hypertension Covid-19 Infection Symptoms of generalized fatigue Intermediate coronary artery disease Paroxysmal atrial fibrillation on Xarelto Hypertension Dyslipidemia Peripheral vascular disease, COPD/Asthma PLAN An acute coronary event has been ruled out with no EKG evidence of ischemia and negative cardiac enzymes. Patient with recent cardiac cath 06/16/2022 with no progression in CAD. Patient symptoms appear to be related to Covid-19 infection. Patient also with pulmonary hypertension recommend starting Revatio Restart home cardiac medications Continue anticoagulation with Xarelto Recommend pulmonary consult Cardiac telemetry Further recommendations based on clinical course Thank you kindly for this consultation. Nurse practitioner note has been reviewed by physician. Signing provider agrees with the documented findings, assessment, and plan of care. Past Medical History Past Medical History: Atrial Flutter, Asthma, Cancer, COPD, GERD/Reflux, GI Bleed, Hypertension, Memory Impairment, Myocardial Infarction (WA), Osteoarthritis (OA), Rheumatoid Arthritis (RA) Additional Past Medical History / Comment(s): Chronic cough. Back pain, migraines. Occasional slight difficulty with swallowing. Hx gastic ulcer, H-P ylori, diverticulitis, hx melanoma on face X2. Hx kidney stones, "kidney function low". Last Myocardial Infarction Date:: 2012 History of Any Multi-Drug Resistant Organisms: None Reported Past Surgical History: Back Surgery, Cholecystectomy, Heart Catheterization, Hysterectomy, Joint Replacement, Orthopedic Surgery Additional Past Surgical History / Comment(s): RODS & CAGES IN BACK, RIGHT HIP REPLACEMENT, PARTIAL THYROIDECTOMY, BILATERAL KNEE REPLACEMENTS, NECK SURGERY WITH LIDIA AND CAGES, MELANOMA REMOVED FROM FACE X4, REPAIR OF HEMATOMA/FEMORAL ARTERY AFTER HEART CATHETERIZATION,rt foot bone spur removed Past Anesthesia/Blood Transfusion Reactions: Previous Problems w/ Anesthesia, Motion Sickness, Postoperative Nausea & Vomiting (PONV) Additional Past Anesthesia/Blood Transfusion Reaction / Comment(s): Hard to wake up. Past Psychological History: Depression Smoking Status: Never smoker Past Alcohol Use History: None Reported Past Drug Use History: None Reported - Past Family History Sister(s) Family Medical History: Cancer Brother(s) Family Medical History: Cancer Mother Family Medical History: Myocardial Infarction (WA) Additional Family Medical History / Comment(s): Mother of a WA at the age of 76yrs. Father History Unknown: Yes Medications and Allergies Home Medications Medication Instructions Recorded Confirmed Type Pantoprazole Sodium [Protonix] 40 mg PO BID 05/14/14 08/10/22 History estradioL [Estrace] 2 mg PO DAILY 05/14/14 08/10/22 History Glucosam/Chond/Hyalu/Cf Borate 1 tab PO DAILY 05/02/20 08/10/22 History [[employer] Tablet] nadoloL [Corgard] 40 mg PO QAM 05/02/20 08/10/22 History Pregabalin [Lyrica] 75 mg PO BID #14 cap 05/24/20 08/10/22 Rx Rivaroxaban [Xarelto] 20 mg PO DAILY 12/02/21 08/10/22 History Cholecalciferol [Vitamin D3 (25 25 mcg PO DAILY 06/16/22 08/10/22 History Mcg = 1000 Iu)] Cyanocobalamin (Vitamin B-12) 1,000 mcg PO DAILY 06/16/22 08/10/22 History [Vitamin B-12] Potassium Citrate 99 mg PO DAILY 06/16/22 08/10/22 History DULoxetine HCL [Cymbalta] 30 mg PO QAM 08/03/22 08/10/22 History Hydroxychloroquine Sulfate 200 mg PO DAILY 08/03/22 08/10/22 History [Plaquenil] Leflunomide [Arava] 20 mg PO DAILY 08/03/22 08/10/22 History Lysine 500 mg PO DAILY 08/03/22 08/10/22 History Acetaminophen [Tylenol Arthritis] 1,300 mg PO Q12H PRN 08/10/22 08/10/22 History Aspirin [Vaz[place]] 81 mg PO DAILY 08/10/22 08/10/22 History Atorvastatin [Lipitor] 40 mg PO DAILY 08/10/22 08/10/22 History Chlorthalidone 25 mg PO DAILY 08/10/22 08/10/22 History Ipratropium Nebulized [Atrovent 0.5 mg INHALATION RT-Q6H 08/10/22 08/10/22 History Nebulized 0.2 MG/ML] Losartan [Cozaar] 50 mg PO DAILY 08/10/22 08/10/22 History Allergies Allergy/AdvReac Type Severity Reaction Status Date / Time cephalexin monohydrate Allergy Rash/Hives Verified 08/10/22 07:28 [From Keflex] diphenhydramine HCl Allergy SWELLING Verified 08/10/22 07:28 [From Benadryl] OF TONGUE, SOB enoxaparin [From Lovenox] Allergy Rash/Hives Verified 08/10/22 07:28 Penicillins Allergy SWELLING, Verified 08/10/22 07:28 HIVES aspirin AdvReac EXCESS Verified 08/10/22 07:28 BLEEDING garlic AdvReac Nausea Verified 08/10/22 07:28 morphine AdvReac Vomiting Verified 08/10/22 07:28 sulfamethoxazole AdvReac Nausea & Verified 08/10/22 07:28 [From Bactrim] Vomiting trimethoprim [From Bactrim] AdvReac Nausea & Verified 08/10/22 07:28 Vomiting milk chocolate AdvReac Nausea Uncoded 08/10/22 07:28 Physical Exam Vitals: Vital Signs Temp Pulse Resp BP Pulse Ox 08/10/22 06:19 71 15 139/68 98 08/10/22 04:00 80 15 139/68 99 08/10/22 02:34 72 15 122/65 98 08/10/22 00:11 69 15 133/68 98 08/09/22 19:08 97.7 F 70 20 146/76 97 Intake and Output 08/09/22 08/10/22 08/10/22 22:59 06:59 14:59 Other: Weight 71.668 kg Results 08/09/22 19:32 08/09/22 19:32 Cardiac Enzymes 08/09/22 08/09/22 08/10/22 Range/Units 19:32 19:32 00:58 AST 22 (14-36) U/L Troponin I <0.012 <0.012 (0.000-0.034) ng/mL 08/10/22 Range/Units 04:39 AST (14-36) U/L Troponin I <0.012 (0.000-0.034) ng/mL Coagulation 08/09/22 Range/Units 19:32 PT 12.5 H (9.0-12.0) sec APTT 34.1 H (22.0-30.0) sec CBC 08/09/22 Range/Units 19:32 WBC 5.1 (3.8-10.6) k/uL RBC 3.54 L (3.80-5.40) m/uL Hgb 12.1 (11.4-16.0) gm/dL Hct 36.4 (34.0-46.0) % Plt Count 207 (150-450) k/uL Comprehensive Metabolic Panel 08/09/22 Range/Units 19:32 Sodium 136 L (137-145) mmol/L Potassium 3.7 (3.5-5.1) mmol/L Chloride 105 (98-107) mmol/L Carbon Dioxide 19 L (22-30) mmol/L BUN 18 H (7-17) mg/dL Creatinine 0.68 (0.52-1.04) mg/dL Glucose 98 (74-99) mg/dL Calcium 9.0 (8.4-10.2) mg/dL AST 22 (14-36) U/L ALT 17 (4-34) U/L Alkaline Phosphatase 65 (38-126) U/L Total Protein 6.6 (6.3-8.2) g/dL Albumin 3.9 (3.5-5.0) g/dL Current Medications Generic Name Dose Route Start Last Admin Trade Name Freq PRN Reason Stop Dose Admin Sodium Chloride 1,000 mls @ 75 mls/hr 08/09/22 23:15 Saline 0.9% IV .[id number] ASHER Naloxone HCl 0.2 mg 08/09/22 23:08 Naloxone 0.4 Mg/Ml 1 Ml Vial IV Q2M PRN Opioid Reversal Intake and Output 08/09/22 08/10/22 08/10/22 22:59 06:59 14:59 Other: Weight 71.668 kg 08/09/22 19:32 08/09/22 19:32
--- NOTE | 2022-08-10 11:15 | P.CNPUL ---
History of Present Illness Consult date: 08/10/22 Requesting physician: Chris Freeman Reason for consult: cough, COPD Chief complaint: Chest pain, shortness of breath History of present illness: This is a very pleasant 77-year-old female patient with a known history of atrial fibrillation, anticoagulated with Xarelto, Gastroesophageal reflux disease, history of kidney stones, nonobstructive coronary artery disease, hypertension and moderate to severe pulmonary hypertension with an RVSP of 70 mmHg maintained on sildenafil. She follows with Dr. Bajwa in our office for chronic cough. She had undergone bronchoscopy, BAL earlier this year with negative results. She had a follow-up CAT scan by her PCP 07/22/2022 that revealed clear lung windows and no evidence of interstitial changes that were previously noted. She presented here to the emergency room last evening with complaints of midsternal chest pain, palpitations, shortness of breath cough and congestion. She felt as though her atrial fibrillation is causing her palpitations. EKG does reveal atrial fibrillation however controlled ventricular rate currently. Chest x-ray shows no acute cardiopulmonary disease process. White count 5.1. Hemoglobin 12.1. Platelets 207. INR 1.2. Sodium 136. Potassium 3.7. Bicarb 19. BUN 18. Creatinine 0.68. AST 20. ALT 17. Troponins negative 3. Coronavirus by PCR positive. The patient is vaccinated. She is seen today in consultation in the emergency department. Currently sitting up in a stretcher. Awake and alert in no acute distress. She is maintaining good O2 saturations in the high 90s on room air. Afebrile. Hemodynamically stable. Some reproducible chest wall discomfort from coughing. No sore throat, no nausea vomiting diarrhea. Review of Systems REVIEW OF SYSTEMS: CONSTITUTIONAL: Denies any recent significant weight loss or weight gain. EYES: Denies change in vision. EARS, NOSE, MOUTH, THROAT: Denies headaches, denies sore throat. CARDIOVASCULAR: Positive for chest pain, palpitations no syncopal episodes. RESPIRATORY: Positive for shortness of breath, cough, congestion no hemoptysis. GASTROINTESTINAL: Denies change in appetite, denies abdominal pain GENITOURINARY: Denies hematuria, denies infections. MUSKULOSKELETAL: Denies pain, denies swelling. INTEGUMENTARY: Denies rash, denies eczema. NEUROLOGICAL: Denies recent memory loss, no recent seizure activity. PSYCHIATRIC: Denies anxiety, denies depression. HEMATOLOGIC/LYMPHATIC: Denies anemia, denies enlarged lymph nodes. Past Medical History Past Medical History: Atrial Flutter, Asthma, Cancer, COPD, GERD/Reflux, GI Bleed, Hypertension, Memory Impairment, Myocardial Infarction ([place]), Osteoarthritis (OA), Rheumatoid Arthritis (RA) Additional Past Medical History / Comment(s): Chronic cough. Back pain, migraines. Occasional slight difficulty with swallowing. 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 Hx kidney stones, "kidney function low". Last Myocardial Infarction Date:: 2012 History of Any Multi-Drug Resistant Organisms: None Reported Past Surgical History: Back Surgery, Cholecystectomy, Heart Catheterization, Hysterectomy, Joint Replacement, Orthopedic Surgery Additional Past Surgical History / Comment(s): RODS & CAGES IN BACK, RIGHT HIP REPLACEMENT, PARTIAL THYROIDECTOMY, BILATERAL KNEE REPLACEMENTS, NECK SURGERY WITH LIDIA AND CAGES, MELANOMA REMOVED FROM FACE X4, REPAIR OF HEMATOMA/FEMORAL ARTERY AFTER HEART CATHETERIZATION,rt foot bone spur removed Past Anesthesia/Blood Transfusion Reactions: Previous Problems w/ Anesthesia, Motion Sickness, Postoperative Nausea & Vomiting (PONV) Additional Past Anesthesia/Blood Transfusion Reaction / Comment(s): Hard to wake up. Past Psychological History: Depression Additional Psychological History / Comment(s): . Smoking Status: Never smoker Past Alcohol Use History: None Reported Past Drug Use History: None Reported - Past Family History Sister(s) Family Medical History: Cancer Brother(s) Family Medical History: Cancer Mother Family Medical History: Myocardial Infarction ([place]) Additional Family Medical History / Comment(s): Mother of a MN at the age of 76yrs. Father History Unknown: Yes Medications and Allergies Home Medications Medication Instructions Recorded Confirmed Type Pantoprazole Sodium [Protonix] 40 mg PO BID 05/14/14 08/10/22 History estradioL [Estrace] 2 mg PO DAILY 05/14/14 08/10/22 History Glucosam/Chond/Hyalu/Cf Borate 1 tab PO DAILY 05/02/20 08/10/22 History [Move Free Joint Health Tablet] nadoloL [Corgard] 40 mg PO QAM 05/02/20 08/10/22 History Pregabalin [Lyrica] 75 mg PO BID #14 cap 05/24/20 08/10/22 Rx Rivaroxaban [Xarelto] 20 mg PO DAILY 12/02/21 08/10/22 History Cholecalciferol [Vitamin D3 (25 25 mcg PO DAILY 06/16/22 08/10/22 History Mcg = 1000 Iu)] Cyanocobalamin (Vitamin B-12) 1,000 mcg PO DAILY 06/16/22 08/10/22 History [Vitamin B-12] Potassium Citrate 99 mg PO DAILY 06/16/22 08/10/22 History DULoxetine HCL [Cymbalta] 30 mg PO QAM 08/03/22 08/10/22 History Hydroxychloroquine Sulfate 200 mg PO DAILY 08/03/22 08/10/22 History [Plaquenil] Leflunomide [Arava] 20 mg PO DAILY 08/03/22 08/10/22 History Lysine 500 mg PO DAILY 08/03/22 08/10/22 History Acetaminophen [Tylenol Arthritis] 1,300 mg PO Q12H PRN 08/10/22 08/10/22 History Aspirin [Vazalore] 81 mg PO DAILY 08/10/22 08/10/22 History Atorvastatin [Lipitor] 40 mg PO DAILY 08/10/22 08/10/22 History Chlorthalidone 25 mg PO DAILY 08/10/22 08/10/22 History Ipratropium Nebulized [Atrovent 0.5 mg INHALATION RT-Q6H 08/10/22 08/10/22 History Nebulized 0.2 MG/ML] Losartan [Cozaar] 50 mg PO DAILY 08/10/22 08/10/22 History Allergies Allergy/AdvReac Type Severity Reaction Status Date / Time cephalexin monohydrate Allergy Rash/Hives Verified 08/10/22 07:28 [From Keflex] diphenhydramine HCl Allergy SWELLING Verified 08/10/22 07:28 [From Benadryl] OF TONGUE, SOB enoxaparin [From Lovenox] Allergy Rash/Hives Verified 08/10/22 07:28 Penicillins Allergy SWELLING, Verified 08/10/22 07:28 HIVES aspirin AdvReac EXCESS Verified 08/10/22 07:28 BLEEDING garlic AdvReac Nausea Verified 08/10/22 07:28 morphine AdvReac Vomiting Verified 08/10/22 07:28 sulfamethoxazole AdvReac Nausea & Verified 08/10/22 07:28 [From Bactrim] Vomiting trimethoprim [From Bactrim] AdvReac Nausea & Verified 08/10/22 07:28 Vomiting milk chocolate AdvReac Nausea Uncoded 08/10/22 07:28 Physical Exam Vitals: Vital Signs Temp Pulse Resp BP Pulse Ox 08/10/22 06:19 71 15 139/68 98 08/10/22 04:00 80 15 139/68 99 08/10/22 02:34 72 15 122/65 98 08/10/22 00:11 69 15 133/68 98 08/09/22 19:08 97.7 F 70 20 146/76 97 Intake and Output 08/09/22 08/10/22 08/10/22 22:59 06:59 14:59 Other: Weight 71.668 kg 71.668 kg GENERAL EXAM: Alert, pleasant 77-year-old female, on room air, fairly comf ortable in no apparent distress. HEAD: Normocephalic. EYES: Normal reaction of pupils, equal size. NOSE: Clear with pink turbinates. THROAT: No erythema or exudates. NECK: No masses, no JVD. CHEST: No chest wall deformity. LUNGS: Equal air entry with no crackles, wheeze, rhonchi or dullness. CVS: S1 and S2 normal with no audible murmur, irregular rhythm. ABDOMEN: No hepatosplenomegaly, normal bowel sounds, no guarding or rigidity. SPINE: No scoliosis or deformity SKIN: No rashes CENTRAL NERVOUS SYSTEM: No focal deficits, tone is normal in all 4 extremities. EXTREMITIES: There is no peripheral edema. No clubbing, no cyanosis. Peripheral pulses are intact. Results - Laboratory Findings CBC and BMP: 08/09/22 19:32 08/09/22 19:32 PT/INR, D-dimer PT 12.5 sec (9.0-12.0) H 08/09/22 19:32 INR 1.2 (<1.2) H 08/09/22 19:32 Abnormal lab findings: Abnormal Labs 08/09/22 08/09/22 08/09/22 19:32 19:32 19:32 RBC 3.54 L MCV 102.6 H PT 12.5 H INR 1.2 H APTT 34.1 H Sodium 136 L Carbon Dioxide 19 L BUN 18 H Coronavirus (PCR) 08/10/22 02:30 RBC MCV PT INR APTT Sodium Carbon Dioxide BUN Coronavirus (PCR) Detected A - Diagnostic Findings Chest x-ray: image reviewed Assessment and Plan Assessment: Chest wall pain suspect secondary to cough, no acute coronary syndrome COVID-19 infection without evidence of pneumonia, vaccinated History of chronic cough, computed tomography scan from 07/22/2022 revealed no acute pulmonary process. Previous bronchoscopy revealed no abnormalities Moderate to severe pulmonary hypertension with an RVSP of 70 mmHg Chronic atrial fibrillation, anticoagulated with Xarelto History of hypertension History of esophageal reflux disease History of kidney stones History of nonobstructive coronary artery disease Plan: The patient was seen and evaluated Chest x-ray, labs and medications reviewed Incidental finding of COVID-19, vaccinated Stable for discharge from the pulmonary standpoint Follow-up in our office as scheduled I have personally seen and examined the patient, performed the documentation and the assessment and plan as written. Number of minutes spent on the visit: 20.
[2022-08-10 12:33] VITALS: TEMP 97.3
[2022-08-10] MEDS: SODIUM CHLORIDE 0.9% 1,000 ML IV SCH ×2 (14:18→15:46)
[2022-08-10 14:53] VITALS: BP 143/60; PULSE 59; RESP 18
[2022-08-10] MEDS ORDERED: PREGABALIN 75 MG CAP PO SCH (21:00)
[2022-08-10] MEDS ORDERED: PANTOPRAZOLE 40 MG TABLET PO SCH (21:00)
--- NOTE | 2022-08-11 04:14 | HP ---
HISTORY AND PHYSICAL HISTORY OF PRESENT ILLNESS: A 77-year-old white female came to the hospital with shortness of breath, chest pain. She has been fighting COVID for 2 weeks, became short of breath and diaphoretic. She came to the hospital. She has a history of atrial fibrillation, COPD, pulmonary hypertension, [place], atrial fibrillation, and shortness of breath . Cardiology saw her and ordered an echo, which showed severe pulmonary hypertension. We started her on for pulmonary hypertension and I gave her Breztri inhaler 2 puffs b.i.d. She will follow up as an outpatient. HOME MEDICATIONS: She takes, 1. Estrace 2 mg daily. 2. Protonix 40 b.i.d. 3. Corgard 40 q.a.m. 4. Xarelto 20 mg daily. 5. Cymbalta 30 q.a.m. 6. Hydroxychloroquine 200 mg daily. 7. . 8. Lysine 500 mg daily. REVIEW OF SYSTEMS: A 14-point review of systems otherwise negative. PAST MEDICAL HISTORY: Atrial fibrillation, asthma, cancer, COPD, GERD, hypertension, GI bleed, memory impairment, myocardial infarction, osteoarthritis, rheumatoid arthritis, difficulty swallowing, history of gastric ulcer, H pylori, diverticulitis. PAST SURGICAL HISTORY: Back surgery, cholecystectomy, heart catheterization, orthopedic surgery, hysterectomy, back, right hip replacement, thyroidectomy, bilateral knee replacements, neck surgery. FAMILY HISTORY: Sister, cancer. Brother, cancer. Mother, myocardial infarction. PHYSICAL EXAMINATION: VITAL SIGNS: Temperature 97.7, pulse 70, respiratory rate 18 to 20, blood pressure 140s over 70s, O2 97% on room air. CARDIOVASCULAR: S1, S2. RESPIRATORY: Mild wheeze x4. NECK: Supple. PSYCH: Fair mood and affect. NEUROLOGIC: Pupils equal, round, reactive. PSYCH: Alert and oriented x3. SKIN: Warm, dry intact. EKG, atrial fibrillation. ASSESSMENT: Chest pain, palpitations, pulmonary hypertension, atrial fibrillation, chronic obstructive pulmonary disease, status post COVID, started on Breztri inhaler, for pulmonary hypertension. Follow up as an outpatient. Discharge today. MMODL / IJN: [id number] /
[2022-08-11] MEDS ORDERED: ATORVASTATIN 40 MG TAB PO SCH (09:00)
[2022-08-11] MEDS ORDERED: LEFLUNOMIDE 20 MG TAB PO SCH (09:00)
[2022-08-11] MEDS ORDERED: DULoxetine HCL 30 MG CAPSULE.DR PO SCH (09:00)
[2022-08-11] MEDS ORDERED: CYANOCOBALAMIN 500 MCG TAB PO SCH (09:00)
[2022-08-11] MEDS ORDERED: ASPIRIN 81 MG PO SCH (09:00)
[2022-08-11] MEDS ORDERED: CHLORTHALIDONE 25 MG TAB PO SCH (09:00)
[2022-08-11] MEDS ORDERED: CHOLECALCIFEROL 25 MCG (1000 IU) TABLET PO SCH (09:00)
== END 2022-08-10 18:30 | disposition home or self-care (01) ==
LOC: EC 18:32 → 6NMEDSUR 08-10 00:17
PROVIDERS: ADMIT Family Medicine; ATTEND Family Medicine
DX: R07.89 Other chest pain (principal); U07.1 COVID-19; I48.91 Unspecified atrial fibrillation; J44.9 Chronic obstructive pulmonary disease, unspecified; I25.2 Old myocardial infarction; I10 Essential (primary) hypertension; M06.9 Rheumatoid arthritis, unspecified; K21.9 Gastro-esophageal reflux disease without esophagitis; I48.92 Unspecified atrial flutter; E89.0 Postprocedural hypothyroidism; F32.A Depression, unspecified; Z79.01 Long term (current) use of anticoagulants; Z79.899 Other long term (current) drug therapy; Z79.890 Hormone replacement therapy; Z88.6 Allergy status to analgesic agent; Z88.0 Allergy status to penicillin; Z88.2 Allergy status to sulfonamides; Z85.820 Personal history of malignant melanoma of skin; Z90.49 Acquired absence of other specified parts of digestive tract; Z90.710 Acquired absence of both cervix and uterus; Z96.653 Presence of artificial knee joint, bilateral; Z96.641 Presence of right artificial hip joint; Z82.49 Family history of ischemic heart disease and other diseases of the circulatory system; Z80.9 Family history of malignant neoplasm, unspecified
CPT/HCPCS: 99285; 36415; 94640 ×2; 93005; 80053; 84484 ×2; 85025; 85610; 85730; 87635; 71046; G0378

== ENCOUNTER 2022-08-19 10:18 | Emergency (ER) | payer MEDICARE, BC ==
[2022-08-19 10:30] VITALS: RESP 18
[2022-08-19] MEDS ORDERED: SODIUM CHLORIDE 0.9% 500 ML 500 ML IV STA (10:44)
--- NOTE | 2022-08-19 10:51 | ED ---
Weakness HPI - General Chief complaint: Weakness Stated complaint: weakness Time Seen by Provider: 08/19/22 10:35 Source: patient, EMS, RN notes reviewed, old records reviewed Mode of arrival: EMS Limitations: no limitations - History of Present Illness Initial comments: 77-year-old female, alert and oriented 4, presents to the emergency room with generalized weakness for 3 weeks. She was hospitalized and discharged on August 10. At that time she was told she had Covid however she states that was in error. States that on Tuesday she developed some abdominal pain similar to her previous ulcer pain. States was recently scoped by Dr. Freeman and told no abnormalities other than scar tissue noted. She does take Protonix daily. Today she had an episode of vomiting and brown diarrhea. Did take 2 Covid tests that were negative. She denies any fevers, chest pain or difficulty in breathing. She does have a history of atrial flutter, COPD, [place], diverticulitis and cholecystectomy and hysterectomy. MD Complaint: generalized weakness -: week(s) Location: generalized Severity scale (1-10): 8 Quality: constant Consistency: constant Associated Symptoms: nausea/vomiting (once today), other (diarrhea once today brown) - Related Data Home Medications Medication Instructions Recorded Confirmed Pantoprazole Sodium [Protonix] 40 mg PO BID 05/14/14 08/10/22 estradioL [Estrace] 2 mg PO DAILY 05/14/14 08/10/22 Glucosam/Chond/Hyalu/Cf Borate 1 tab PO DAILY 05/02/20 08/10/22 [Move Free Joint Health Tablet] nadoloL [Corgard] 40 mg PO QAM 05/02/20 08/10/22 Rivaroxaban [Xarelto] 20 mg PO DAILY 12/02/21 08/10/22 Cholecalciferol [Vitamin D3 (25 25 mcg PO DAILY 06/16/22 08/10/22 Mcg = 1000 Iu)] Cyanocobalamin (Vitamin B-12) 1,000 mcg PO DAILY 06/16/22 08/10/22 [Vitamin B-12] Potassium Citrate 99 mg PO DAILY 06/16/22 08/10/22 DULoxetine HCL [Cymbalta] 30 mg PO QAM 08/03/22 08/10/22 Hydroxychloroquine Sulfate 200 mg PO DAILY 08/03/22 08/10/22 [Plaquenil] Leflunomide [Arava] 20 mg PO DAILY 08/03/22 08/10/22 Lysine 500 mg PO DAILY 08/03/22 08/10/22 Acetaminophen [Tylenol Arthritis] 1,300 mg PO Q12H PRN 08/10/22 08/10/22 Aspirin [Vazalore] 81 mg PO DAILY 08/10/22 08/10/22 Atorvastatin [Lipitor] 40 mg PO DAILY 08/10/22 08/10/22 Chlorthalidone 25 mg PO DAILY 08/10/22 08/10/22 Ipratropium Nebulized [Atrovent 0.5 mg INHALATION RT-Q6H 08/10/22 08/10/22 Nebulized 0.2 MG/ML] Losartan [Cozaar] 50 mg PO DAILY 08/10/22 08/10/22 Previous Rx's Medication Instructions Recorded Pregabalin [Lyrica] 75 mg PO BID #14 cap 05/24/20 Losartan [Cozaar] 50 mg PO DAILY 90 Days #90 tab 08/10/22 Sildenafil [Revatio] 20 mg PO TID 30 Days #90 tab 08/10/22 Allergies Allergy/AdvReac Type Severity Reaction Status Date / Time cephalexin monohydrate Allergy Rash/Hives Verified 08/10/22 07:28 [From Keflex] diphenhydramine HCl Allergy SWELLING Verified 08/10/22 07:28 [From Benadryl] OF TONGUE, SOB enoxaparin [From Lovenox] Allergy Rash/Hives Verified 08/10/22 07:28 Penicillins Allergy SWELLING, Verified 08/10/22 07:28 HIVES aspirin AdvReac EXCESS Verified 08/10/22 07:28 BLEEDING garlic AdvReac Nausea Verified 08/10/22 07:28 morphine AdvReac Vomiting Verified 08/10/22 07:28 sulfamethoxazole AdvReac Nausea & Verified 08/10/22 07:28 [From Bactrim] Vomiting trimethoprim [From Bactrim] AdvReac Nausea & Verified 08/10/22 07:28 Vomiting milk chocolate AdvReac Nausea Uncoded 08/10/22 07:28 Review of Systems ROS Statement: Those systems with pertinent positive or pertinent negative responses have been documented in the HPI. ROS Other: All systems not noted in ROS Statement are negative. Past Medical History Past Medical History: Atrial Flutter, Asthma, Cancer, COPD, GERD/Reflux, GI Bleed, Hypertension, Memory Impairment, Myocardial Infarction ([place]), Osteoarthritis (OA), Rheumatoid Arthritis (RA) Additional Past Medical History / Comment(s): Chronic cough. Back pain, migraines. Occasional slight difficulty with swallowing. 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 Hx kidney stones, "kidney function low". Last Myocardial Infarction Date:: 2012 History of Any Multi-Drug Resistant Organisms: None Reported Past Surgical History: Back Surgery, Cholecystectomy, Heart Catheterization, Hysterectomy, Joint Replacement, Orthopedic Surgery Additional Past Surgical History / Comment(s): RODS & CAGES IN BACK, RIGHT HIP REPLACEMENT, PARTIAL THYROIDECTOMY, BILATERAL KNEE REPLACEMENTS, NECK SURGERY WITH LIDIA AND CAGES, MELANOMA REMOVED FROM FACE X4, REPAIR OF HEMATOMA/FEMORAL ARTERY AFTER HEART CATHETERIZATION,rt foot bone spur removed Past Anesthesia/Blood Transfusion Reactions: Previous Problems w/ Anesthesia, Motion Sickness, Postoperative Nausea & Vomiting (PONV) Additional Past Anesthesia/Blood Transfusion Reaction / Comment(s): Hard to wake up. Past Psychological History: Depression Smoking Status: Never smoker Past Alcohol Use History: None Reported Past Drug Use History: None Reported - Past Family History Sister(s) Family Medical History: Cancer Brother(s) Family Medical History: Cancer Mother Family Medical History: Myocardial Infarction ([place]) Additional Family Medical History / Comment(s): Mother of a AR at the age of 76yrs. Father History Unknown: Yes General Exam Limitations: no limitations General appearance: alert Head exam: Present: atraumatic Eye exam: Absent: scleral icterus, conjunctival injection, periorbital swelling, periorbital tenderness ENT exam: Present: mucous membranes moist Neck exam: Present: full ROM. Absent: meningismus Respiratory exam: Present: normal lung sounds bilaterally. Absent: respiratory distress, wheezes, rales, rhonchi, stridor, chest wall tenderness, accessory muscle use Cardiovascular Exam: Present: regular rate, irregular rhythm (Atrial fibrillation) GI/Abdominal exam: Present: soft. Absent: distended, tenderness, guarding, rebound, rigid Extremities exam: Present: normal capillary refill. Absent: pedal edema Neurological exam: Present: alert, oriented X3 Psychiatric exam: Present: normal affect, normal mood Skin exam: Present: warm, dry, normal color. Absent: cyanosis, diaphoretic Course Vital Signs 08/19/22 08/19/22 10:25 13:16 Temperature 97.8 F 98.1 F Pulse Rate 100 87 Respiratory 18 18 Rate Blood Pressure 164/112 162/109 O2 Sat by Pulse 96 96 Oximetry - Reevaluation(s) Reevaluation #1: 08/19/22 12:18 Patient's blood pressure is elevated states did not take her blood pressure medication r/t nausea and vomiting today. Medication ordered. Time: 12:18 EKG Findings - EKG Results: EKG shows: atrial fibrillation (Ventricular rate 88, QRS 0.134, QTC 0.467 left axis deviation old EKG 08/10/2022) Medical Decision Making - Medical Decision Making KUB x-ray performed due to vomiting and diarrhea today. X-ray shows a 1.3 x 6 cm calcification right paramedian mid to lower abdomen, unable to exclude calculus in the right renal collecting system upper ureter. Patient has no complaints of right-sided abdominal pain. There is also an additional 4 mm nonobstructing right renal calculus. Patient denies any hematuria or dysuria. No evidence of free air or bowel obstruction. No stool burden. There is a possible trace left effusion. Patient states that she did take 2 Covid test today that were both negative. She states that the Covid test that was positive in the hospital with last admission was in error per Dr. Jones. No evidence of leukocytosis. Hemoglobin and hematocrit are stable. Electrolytes show no significant abnormalities. Lactic acid 1.2. Urine is negative for nitrites, positive for occasional bacteria with squamous cells, was sent for culture. No acute changes on EKG and troponin is negative. Lactic acid is 1.2. Urinalysis shows 2+ ketones. Patient was given IV fluids in the emergency room. No vomiting or diarrhea in the emergency room. Patient was given her daily blood pressure medications which she did not take related to n/v. Case management at bedside to help arrange home care for patient. Case discussed with Dr. Russell who was agreeable to this plan of care. - Lab Data Result diagrams: 08/19/22 10:41 08/19/22 10:41 Lab Results 08/19/22 08/19/22 08/19/22 Range/Units 10:41 10:41 10:41 WBC 5.3 (3.8-10.6) k/uL RBC 4.05 (3.80-5.40) m/uL Hgb 13.4 (11.4-16.0) gm/dL Hct 41.6 (34.0-46.0) % MCV 102.8 H (80.0-100.0) fL MCH 33.1 (25.0-35.0) pg MCHC 32.2 (31.0-37.0) g/dL RDW 14.5 (11.5-15.5) % Plt Count 232 (150-450) k/uL MPV 8.8 Neutrophils % 71 % Lymphocytes % 14 % Monocytes % 9 % Eosinophils % 3 % Basophils % 1 % Neutrophils # 3.8 (1.3-7.7) k/uL Lymphocytes # 0.7 L (1.0-4.8) k/uL Monocytes # 0.5 (0-1.0) k/uL Eosinophils # 0.2 (0-0.7) k/uL Basophils # 0.1 (0-0.2) k/uL Hypochromasia Slight Macrocytosis Slight PT 11.3 (9.0-12.0) sec INR 1.1 (<1.2) APTT 26.4 (22.0-30.0) sec Sodium 136 L (137-145) mmol/L Potassium 3.7 (3.5-5.1) mmol/L Chloride 104 (98-107) mmol/L Carbon Dioxide 20 L (22-30) mmol/L Anion Gap 12 mmol/L BUN 11 (7-17) mg/dL Creatinine 0.44 L (0.52-1.04) mg/dL Est GFR (CKD-EPI)AfAm >90 (>60 ml/min/1.73 sqM) Est GFR (CKD-EPI)NonAf >90 (>60 ml/min/1.73 sqM) Glucose 100 H (74-99) mg/dL Plasma Lactic Acid Chris (0.7-2.0) mmol/L Calcium 8.9 (8.4-10.2) mg/dL Magnesium 1.8 (1.6-2.3) mg/dL Total Bilirubin 0.8 (0.2-1.3) mg/dL AST 28 (14-36) U/L ALT 20 (4-34) U/L Alkaline Phosphatase 69 (38-126) U/L Troponin I (0.000-0.034) ng/mL Total Protein 6.8 (6.3-8.2) g/dL Albumin 4.1 (3.5-5.0) g/dL Urine Color Urine Appearance (Clear) Urine pH (5.0-8.0) Ur Specific [place] (1.001-1.035) Urine Protein (Negative) Urine Glucose (UA) (Negative) Urine Ketones (Negative) Urine Blood (Negative) Urine Nitrite (Negative) Urine Bilirubin (Negative) Urine Urobilinogen (<2.0) mg/dL Ur Leukocyte Esterase (Negative) Urine RBC (0-5) /hpf Urine WBC (0-5) /hpf Ur Squamous Epith Cells (0-4) /hpf Urine Bacteria (None) /hpf Urine Mucus (None) /hpf 08/19/22 08/19/22 08/19/22 Range/Units 10:41 10:49 10:56 WBC (3.8-10.6) k/uL RBC (3.80-5.40) m/uL Hgb (11.4-16.0) gm/dL Hct (34.0-46.0) % MCV (80.0-100.0) fL MCH (25.0-35.0) pg MCHC (31.0-37.0) g/dL RDW (11.5-15.5) % Plt Count (150-450) k/uL MPV Neutrophils % % Lymphocytes % % Monocytes % % Eosinophils % % Basophils % % Neutrophils # (1.3-7.7) k/uL Lymphocytes # (1.0-4.8) k/uL Monocytes # (0-1.0) k/uL Eosinophils # (0-0.7) k/uL Basophils # (0-0.2) k/uL Hypochromasia Macrocytosis PT (9.0-12.0) sec INR (<1.2) APTT (22.0-30.0) sec Sodium (137-145) mmol/L Potassium (3.5-5.1) mmol/L Chloride (98-107) mmol/L Carbon Dioxide (22-30) mmol/L Anion Gap mmol/L BUN (7-17) mg/dL Creatinine (0.52-1.04) mg/dL Est GFR (CKD-EPI)AfAm (>60 ml/min/1.73 sqM) Est GFR (CKD-EPI)NonAf (>60 ml/min/1.73 sqM) Glucose (74-99) mg/dL Plasma Lactic Acid Chris 1.2 (0.7-2.0) mmol/L Calcium (8.4-10.2) mg/dL Magnesium (1.6-2.3) mg/dL Total Bilirubin (0.2-1.3) mg/dL AST (14-36) U/L ALT (4-34) U/L Alkaline Phosphatase (38-126) U/L Troponin I <0.012 (0.000-0.034) ng/mL Total Protein (6.3-8.2) g/dL Albumin (3.5-5.0) g/dL Urine Color Yellow Urine Appearance Cloudy H (Clear) Urine pH 6.5 (5.0-8.0) Ur Specific [place] 1.022 (1.001-1.035) Urine Protein 2+ H (Negative) Urine Glucose (UA) Negative (Negative) Urine Ketones 2+ H (Negative) Urine Blood Negative (Negative) Urine Nitrite Negative (Negative) Urine Bilirubin Negative (Negative) Urine Urobilinogen 2.0 (<2.0) mg/dL Ur Leukocyte Esterase Negative (Negative) Urine RBC 1 (0-5) /hpf Urine WBC 3 (0-5) /hpf Ur Squamous Epith Cells 10 H (0-4) /hpf Urine Bacteria Occasional H (None) /hpf Urine Mucus Occasional H (None) /hpf Disposition Clinical Impression: Nausea vomiting and diarrhea Disposition: HOME SELF-CARE Condition: Good Instructions (If sedation given, give patient instructions): Acute Nausea and Vomiting (ED), Acute Diarrhea (ED) Additional Instructions: Increase your fluid intake. Eat small meals throughout the day. You can take Zofran as needed for any nausea or vomiting. It is very important that you take your blood pressure medication, using the Zofran for nausea will help. Continue your Protonix as previously prescribed. Follow-up with your primary care doctor within the next 7 days. Return to the emergency room with any new or concerning symptoms. Is patient prescribed a controlled substance at d/c from ED?: No Referrals: Dex Mcneal MD [Primary Care Provider] - 1-2 days [facility], [NON-STAFF] - 1-2 days Time of Disposition: 12:48
[2022-08-19 10:55] LABS: Basophils # (A) 0.1 k/uL (0-0.2); Basophils % (A) 1 %; Eosinophils # (A) 0.2 k/uL (0-0.7); Eosinophils % (A) 3 %; HCT 41.6 % (34.0-46.0); HGB 13.4 gm/dL (11.4-16.0); Hypochromasia Slight; Lymphocytes # (A) 0.7 k/uL (1.0-4.8); Lymphocytes % (A) 14 %; MCH 33.1 pg (25.0-35.0); MCHC 32.2 g/dL (31.0-37.0); MCV 102.8 fL (80.0-100.0); Macrocytosis Slight; Mean Platelet Volume 8.8; Monocytes # (A) 0.5 k/uL (0-1.0); Monocytes % (A) 9 %; Neutrophils # (A) 3.8 k/uL (1.3-7.7); Neutrophils % (A) 71 %; Platelet Count 232 k/uL (150-450); RBC 4.05 m/uL (3.80-5.40); RDW 14.5 % (11.5-15.5); WBC 5.3 k/uL (3.8-10.6)
[2022-08-19 11:00] LABS: INR 1.1 (<1.2); Partial Thromboplastin Time 26.4 sec (22.0-30.0); Prothrombin Time 11.3 sec (9.0-12.0)
[2022-08-19 11:03] LABS: ALT 20 U/L (4-34); AST 28 U/L (14-36); African American GFR (CKD) >90 (>60 ml/min/1.73 sqM); Albumin 4.1 g/dL (3.5-5.0); Alkaline Phosphatase 69 U/L (38-126); Anion Gap 12 mmol/L; Blood Urea Nitrogen 11 mg/dL (7-17); Calcium 8.9 mg/dL (8.4-10.2); Carbon Dioxide 20 mmol/L (22-30); Chloride 104 mmol/L (98-107); Glucose 100 mg/dL (74-99); Magnesium 1.8 mg/dL (1.6-2.3); Non-African American GFR(CKD) >90 (>60 ml/min/1.73 sqM); Potassium 3.7 mmol/L (3.5-5.1); Sodium 136 mmol/L (137-145); Total Bilirubin 0.8 mg/dL (0.2-1.3); Total Protein 6.8 g/dL (6.3-8.2)
[2022-08-19] MEDS ORDERED: fentaNYL (PF) 50 MCG/ML 2 ML AMP IVP STA (11:08)
--- NOTE | 2022-08-19 11:25 | XR ---
EXAMINATION TYPE: XR KUB DATE OF EXAM: 08/19/2022 Comparison: None Clinical History: 77-year-old female n/v/d, weakness Findings: There is slight blunting of the left costophrenic angle, possible trace left effusion. No evidence f or free intraperitoneal air. No dilated small bowel or air-fluid levels. No significant stool burden. Scattered colonic air is present. Calcification right mid abdomen measuring 4 mm. An additional 1.3 x 0.6 cm calcification located right paramedian mid to lower abdomen. Phleboliths in the pelvis. Post surgical change of L3-S1 posterior and interbody lumbar fusion. Partially visualized right hip total arthroplasty. Impression: 1. A 1.3 x 0.6 cm calcification right paramedian mid to lower abdomen. Unable to exclude a calculus i n the right renal collecting system or upper ureter. Correlate for any corresponding right-sided clarke l colic symptoms. 2. Additional 4 mm nonobstructive right renal calculus. 3. No evidence for free air or bowel obstruction. No significant stool burden. 4 possible trace left effusion.
[2022-08-19] MEDS ORDERED: LOSARTAN 50 MG TAB PO STA (12:18)
[2022-08-19 12:27] LABS: Appearance,Urine Cloudy (Clear); Bacteria,Urine Occasional /hpf; Bilirubin,Urine Negative (Negative); Blood,Urine Negative (Negative); Color,Urine Yellow; Glucose,Urine (UA) Negative (Negative); Ketones,Urine 2+ (Negative); Leukocyte Esterase,Urine Negative (Negative); Mucus,Urine Occasional /hpf; Nitrite,Urine Negative (Negative); PH, Urine 6.5 (5.0-8.0); Protein,Urine 2+ (Negative); RBC,Urine 1 /hpf (0-5); Specific Gravity,Urine 1.022 (1.001-1.035); Squamous Epithelial Cell,Urine 10 /hpf (0-4); WBC,Urine 3 /hpf (0-5)
[2022-08-19 13:20] VITALS: BP 162/109; PULSE 87; TEMP 98.1
== END 2022-08-19 13:27 | disposition home or self-care (01) ==
LOC: EC 10:18
DX: R19.7 Diarrhea, unspecified (principal); J45.909 Unspecified asthma, uncomplicated; J44.9 Chronic obstructive pulmonary disease, unspecified; K21.9 Gastro-esophageal reflux disease without esophagitis; I10 Essential (primary) hypertension; I25.2 Old myocardial infarction; M19.90 Unspecified osteoarthritis, unspecified site; F32.A Depression, unspecified; Z79.82 Long term (current) use of aspirin; Z79.899 Other long term (current) drug therapy; Z79.811 Long term (current) use of aromatase inhibitors; Z79.83 Long term (current) use of bisphosphonates; Z88.1 Allergy status to other antibiotic agents; Z88.2 Allergy status to sulfonamides; Z88.0 Allergy status to penicillin; Z88.9 Allergy status to unspecified drugs, medicaments and biological substances; Z91.018 Allergy to other foods; Z91.011 Allergy to milk products
CPT/HCPCS: 36415; 80053; 83605; 83735; 84484; 85025; 85610; 85730; 81001; 74018; 99285; 96374; 96361; J3010

== ENCOUNTER 2022-09-03 09:18 | Observation (INO) | payer MEDICARE, BC ==
[2022-09-03] MEDS ORDERED: HYDROmorphone 0.5 MG/0.5 ML SYRINGE IVP STA (09:46)
[2022-09-03] MEDS ORDERED: SODIUM CHLORIDE 0.9% 500 ML 500 ML IV STA (09:46)
[2022-09-03] MEDS ORDERED: ONDANSETRON 4 MG/2 ML VIAL IVP STA (09:46)
[2022-09-03] MEDS ORDERED: FAMOTIDINE 20 MG/2 ML VIAL IV STA (09:48)
--- NOTE | 2022-09-03 09:50 | ED ---
General Adult HPI - General Chief complaint: Nausea/Vomiting/Diarrhea Stated complaint: weakness, vomiting/diarrhea Time Seen by Provider: 09/03/22 09:22 Source: patient, EMS, RN notes reviewed Mode of arrival: EMS Limitations: no limitations - History of Present Illness Initial comments: Gibran is a pleasant 77-year-old female presenting to the emergency department with concern for dehydration and weakness. Symptoms have been present for over a week. Patient does have nausea with dry heaves and small amounts of emesis. Decreased oral intake. Today patient is started with diarrhea and has had had 4 episodes. Patient does feel generally weak and has difficulty getting around. Patient is having abdominal discomfort as well. No fever. - Related Data Home Medications Medication Instructions Recorded Confirmed Pantoprazole Sodium [Protonix] 40 mg PO BID 05/14/14 09/03/22 estradioL [Estrace] 2 mg PO DAILY 05/14/14 09/03/22 Glucosam/Chond/Hyalu/Cf Borate 1 tab PO DAILY 05/02/20 09/03/22 [Move Free Straight Up English Tablet] nadoloL [Corgard] 40 mg PO DAILY 05/02/20 09/03/22 Rivaroxaban [Xarelto] 20 mg PO DAILY 12/02/21 09/03/22 Cholecalciferol [Vitamin D3 (25 25 mcg PO DAILY 06/16/22 09/03/22 Mcg = 1000 Iu)] Cyanocobalamin (Vitamin B-12) 1,000 mcg PO DAILY 06/16/22 09/03/22 [Vitamin B-12] Potassium Citrate 99 mg PO DAILY 06/16/22 09/03/22 DULoxetine HCL [Cymbalta] 30 mg PO DAILY 08/03/22 09/03/22 Leflunomide [Arava] 20 mg PO DAILY 08/03/22 09/03/22 Lysine 500 mg PO DAILY 08/03/22 09/03/22 Acetaminophen [Tylenol Arthritis] 1,300 mg PO Q12H PRN 08/10/22 09/03/22 Chlorthalidone 25 mg PO DAILY 08/10/22 09/03/22 Ipratropium Nebulized [Atrovent 0.5 mg INHALATION RT-BID 08/10/22 09/03/22 Nebulized 0.2 MG/ML] Ipratropium Nebulized [Atrovent 0.5 mg INHALATION RT-BID PRN 09/03/22 09/03/22 Nebulized 0.2 MG/ML] Previous Rx's Medication Instructions Recorded Pregabalin [Lyrica] 75 mg PO BID #14 cap 05/24/20 Losartan [Cozaar] 50 mg PO DAILY 90 Days #90 tab 08/10/22 Dicyclomine [Bentyl] 20 mg PO QID PRN #15 tablet 09/03/22 Ondansetron Odt [Zofran Odt] 4 mg PO Q8HR PRN #10 tab 09/03/22 Allergies Allergy/AdvReac Type Severity Reaction Status Date / Time cephalexin monohydrate Allergy Rash/Hives Verified 09/03/22 11:35 [From Keflex] diphenhydramine HCl Allergy SWELLING Verified 09/03/22 11:35 [From Benadryl] OF TONGUE, SOB enoxaparin [From Lovenox] Allergy Rash/Hives Verified 09/03/22 11:35 Penicillins Allergy SWELLING, Verified 09/03/22 11:35 HIVES aspirin AdvReac EXCESS Verified 09/03/22 11:35 BLEEDING garlic AdvReac Nausea Verified 09/03/22 11:35 morphine AdvReac Vomiting Verified 09/03/22 11:35 sulfamethoxazole AdvReac Nausea & Verified 09/03/22 11:35 [From Bactrim] Vomiting trimethoprim [From Bactrim] AdvReac Nausea & Verified 09/03/22 11:35 Vomiting milk chocolate AdvReac Nausea Uncoded 09/03/22 11:35 Review of Systems ROS Statement: Those systems with pertinent positive or pertinent negative responses have been documented in the HPI. ROS Other: All systems not noted in ROS Statement are negative. Constitutional: Denies: fever Eyes: Denies: eye pain ENT: Denies: ear pain Respiratory: Denies: cough Cardiovascular: Denies: chest pain Endocrine: Reports: fatigue Gastrointestinal: Reports: as per HPI, abdominal pain, nausea, vomiting, diarrhea Genitourinary: Denies: dysuria Musculoskeletal: Denies: back pain Skin: Denies: rash Neurological: Reports: as per HPI Past Medical History Past Medical History: Atrial Flutter, Asthma, Cancer, COPD, GERD/Reflux, GI Bleed, Hypertension, Memory Impairment, Myocardial Infarction (LA), Osteoarthritis (OA), Rheumatoid Arthritis (RA) Additional Past Medical History / Comment(s): Chronic cough. Back pain, migraines. Occasional slight difficulty with swallowing. 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 Hx kidney stones, "kidney function low". Last Myocardial Infarction Date:: 2012 History of Any Multi-Drug Resistant Organisms: None Reported Past Surgical History: Back Surgery, Cholecystectomy, Heart Catheterization, Hysterectomy, Joint Replacement, Orthopedic Surgery Additional Past Surgical History / Comment(s): RODS & CAGES IN BACK, RIGHT HIP REPLACEMENT, PARTIAL THYROIDECTOMY, BILATERAL KNEE REPLACEMENTS, NECK SURGERY WITH LIDIA AND CAGES, MELANOMA REMOVED FROM FACE X4, REPAIR OF HEMATOMA/FEMORAL ARTERY AFTER HEART CATHETERIZATION,rt foot bone spur removed Past Anesthesia/Blood Transfusion Reactions: Previous Problems w/ Anesthesia, Motion Sickness, Postoperative Nausea & Vomiting (PONV) Additional Past Anesthesia/Blood Transfusion Reaction / Comment(s): Hard to wake up. Past Psychological History: Depression Smoking Status: Never smoker Past Alcohol Use History: None Reported Past Drug Use History: None Reported - Past Family History Sister(s) Family Medical History: Cancer Brother(s) Family Medical History: Cancer Mother Family Medical History: Myocardial Infarction (LA) Additional Family Medical History / Comment(s): Mother of a LA at the age of 76yrs. Father History Unknown: Yes General Exam Limitations: no limitations General appearance: alert, in no apparent distress Head exam: Present: normocephalic Eye exam: Present: normal appearance Neck exam: Present: normal inspection Respiratory exam: Present: normal lung sounds bilaterally Cardiovascular Exam: Present: regular rate, normal rhythm Expanded Peripheral pulses: 2+: Dorsalis Pedis (R), Dorsalis Pedis (L) GI/Abdominal exam: Present: soft, tenderness (Moderate tenderness, mostly the epigastrium), normal bowel sounds. Absent: distended, guarding, rebound, rigid, pulsatile mass Extremities exam: Present: normal inspection Neurological exam: Present: alert, CN II-XII intact. Absent: motor sensory deficit Expanded Neurological exam: Present: protecting the airway Speech: Present: fluid speech Motor strength exam: RUE: 5, LUE: 5, RLE: 5, LLE: 5 Eye Response: (4) open spontaneously Motor Response: (6) obeys commands Verbal Response: (5) oriented Psychiatric exam: Present: normal affect, normal mood Skin exam: Present: normal color Course Vital Signs 09/03/22 09:19 Temperature 97.4 F L Pulse Rate 88 Respiratory 18 Rate Blood Pressure 150/107 O2 Sat by Pulse 96 Oximetry Medical Decision Making - Medical Decision Making Patient reevaluated and is feeling better. Abdomen soft and nontender. Patient updated on results and need for follow-up. Patient is comfortable with outpatient treatment and agrees to return if symptoms worsen. - Lab Data Result diagrams: 09/03/22 09:58 09/03/22 09:58 Lab Results 09/03/22 09/03/22 09/03/22 Range/Units 09:58 09:58 09:58 WBC 4.2 (3.8-10.6) k/uL RBC 3.95 (3.80-5.40) m/uL Hgb 13.1 (11.4-16.0) gm/dL Hct 42.0 (34.0-46.0) % MCV 106.2 H (80.0-100.0) fL MCH 33.2 (25.0-35.0) pg MCHC 31.3 (31.0-37.0) g/dL RDW 15.6 H (11.5-15.5) % Plt Count 147 L (150-450) k/uL MPV 9.4 Neutrophils % 67 % Lymphocytes % 18 % Monocytes % 8 % Eosinophils % 4 % Basophils % 1 % Neutrophils # 2.8 (1.3-7.7) k/uL Lymphocytes # 0.8 L (1.0-4.8) k/uL Monocytes # 0.3 (0-1.0) k/uL Eosinophils # 0.2 (0-0.7) k/uL Basophils # 0.0 (0-0.2) k/uL Hypochromasia Moderate Macrocytosis Moderate PT 11.7 (9.0-12.0) sec INR 1.1 (<1.2) APTT 24.3 (22.0-30.0) sec Sodium 138 (137-145) mmol/L Potassium 3.1 L (3.5-5.1) mmol/L Chloride 112 H (98-107) mmol/L Carbon Dioxide 18 L (22-30) mmol/L Anion Gap 8 mmol/L BUN 11 (7-17) mg/dL Creatinine 0.38 L (0.52-1.04) mg/dL Est GFR (CKD-EPI)AfAm >90 (>60 ml/min/1.73 sqM) Est GFR (CKD-EPI)NonAf >90 (>60 ml/min/1.73 sqM) Glucose 86 (74-99) mg/dL Calcium 7.6 L (8.4-10.2) mg/dL Total Bilirubin 1.0 (0.2-1.3) mg/dL AST 26 (14-36) U/L ALT 22 (4-34) U/L Alkaline Phosphatase 60 (38-126) U/L Total Protein 5.5 L (6.3-8.2) g/dL Albumin 3.2 L (3.5-5.0) g/dL Amylase 34 (30-110) U/L Lipase 110 (23-300) U/L - Radiology Data Radiology results: report reviewed (Reviewed CT report reveals no acute abnormality) Disposition Clinical Impression: Abdominal pain Disposition: HOME SELF-CARE Condition: Stable Instructions (If sedation given, give patient instructions): Abdominal Pain (ED) Additional Instructions: Prescription sent to pharmacy. Please do follow-up with primary care physician in the next day or 2 for recheck. Return for vomiting, decrease oral intake, increased diarrhea, worsening pain, fevers, worsening symptoms or any other concerns Prescriptions: Dicyclomine [Bentyl] 20 mg PO QID PRN #15 tablet PRN Reason: Pain Ondansetron Odt [Zofran Odt] 4 mg PO Q8HR PRN #10 tab PRN Reason: Nausea Is patient prescribed a controlled substance at d/c from ED?: No Referrals: Dex Mcneal MD [Primary Care Provider] - 1-2 days Time of Disposition: 13:00
[2022-09-03 10:11] LABS: INR 1.1 (<1.2); Partial Thromboplastin Time 24.3 sec (22.0-30.0); Prothrombin Time 11.7 sec (9.0-12.0)
[2022-09-03 10:12] LABS: ALT 22 U/L (4-34); AST 26 U/L (14-36); African American GFR (CKD) >90 (>60 ml/min/1.73 sqM); Albumin 3.2 g/dL (3.5-5.0); Alkaline Phosphatase 60 U/L (38-126); Amylase 34 U/L (30-110); Anion Gap 8 mmol/L; Blood Urea Nitrogen 11 mg/dL (7-17); Calcium 7.6 mg/dL (8.4-10.2); Carbon Dioxide 18 mmol/L (22-30); Chloride 112 mmol/L (98-107); Glucose 86 mg/dL (74-99); Lipase 110 U/L (23-300); Non-African American GFR(CKD) >90 (>60 ml/min/1.73 sqM); Potassium 3.1 mmol/L (3.5-5.1); Sodium 138 mmol/L (137-145); Total Protein 5.5 g/dL (6.3-8.2)
[2022-09-03 10:20] LABS: Basophils % (A) 1 %; Eosinophils # (A) 0.2 k/uL (0-0.7); Eosinophils % (A) 4 %; HGB 13.1 gm/dL (11.4-16.0); Hypochromasia Moderate; Lymphocytes # (A) 0.8 k/uL (1.0-4.8); Lymphocytes % (A) 18 %; MCH 33.2 pg (25.0-35.0); MCHC 31.3 g/dL (31.0-37.0); MCV 106.2 fL (80.0-100.0); Macrocytosis Moderate; Mean Platelet Volume 9.4; Monocytes # (A) 0.3 k/uL (0-1.0); Monocytes % (A) 8 %; Neutrophils # (A) 2.8 k/uL (1.3-7.7); Neutrophils % (A) 67 %; Platelet Count 147 k/uL (150-450); RBC 3.95 m/uL (3.80-5.40); RDW 15.6 % (11.5-15.5); WBC 4.2 k/uL (3.8-10.6)
--- NOTE | 2022-09-03 12:12 | CT ---
EXAMINATION TYPE: CT abdomen pelvis w con DATE OF EXAM: 09/03/2022 COMPARISON: 06/01/2022 INDICATION: weakness, vomiting, diarrhea DLP: 923.8 mGycm, Automated exposure control for dose reduction was used. CONTRAST: 100 mL of Isovue 300. Study performed without Oral Contrast TECHNIQUE: Axial images were obtained from above the diaphragm to the pubic rami in the axial plane a t 5 mm thick sections. Reconstructed images are reviewed on the computer in the coronal plane. FINDINGS: Limited CT sections are obtained the lung bases. Small bilateral pleural effusions are present. Lung bases otherwise appear clear. CT ABDOMEN: Liver: Mild fatty infiltration of the liver may be present. Spleen: Normal Pancreas: Normal Adrenal glands: The adrenal glands are normal. Gallbladder: Not visualized. Surgically absent. Kidneys: No masses are evident. No hydronephrosis is present. Cysts are present on the bilateral ki dneys. On the right the largest is in the mid lateral right kidney measuring 2.6 cm. The largest on t he left is posterior upper pole and 2.2 cm. There are several calcifications without obstruction in the right kidney measuring 0.2 cm in the mid right kidney and 0.6 cm at the inferior pole right kidne y. No left renal stones are evident. No hydroureter is evident with Aorta: Vascular calcification is within the aorta. Inferior vena cava: Normal. CT PELVIS: Loops of bowel within the abdomen and pelvis are normal. The study is without contrast limiting b owel evaluation. Appendix: The appendix is not identified. No dilated tubular structure or inflammatory change is evid ent. Urinary bladder: Normal. Some limitation due to beam hardening artifact from the right hip prosthesis . Genitourinary structures: Uterus is not identified. Within the left adnexa there is a 2.4 cm cyst. Osseous structures: No suspicious lytic or sclerotic lesions. Right hip prosthesis and postsurgical c hanges within the lumbar spine are present. IMPRESSIONS: 1. Right renal stones without obstruction. No hydronephrosis present. 2. Mild fatty infiltration of the liver. 3. Small bilateral pleural effusions. 4. Bilateral renal cysts. 5. Left adnexal cyst measures 2.4 cm.
[2022-09-03] MEDS ORDERED: POTASSIUM BICARBONATE/CIT AC 20 MEQ TABLET.EFF PO ONE (12:21)
[2022-09-03] MEDS ORDERED: HYDROmorphone 0.5 MG/0.5 ML SYRINGE IVP PRN (14:52)
[2022-09-03] MEDS ORDERED: ONDANSETRON 4 MG/2 ML VIAL IVP PRN (14:52)
[2022-09-03] MEDS ORDERED: NALOXONE 0.4 MG/ML 1 ML VIAL IV PRN (14:52)
--- NOTE | 2022-09-03 14:52 | ED ---
Medical Decision Making - Medical Decision Making Patient vomited and did not tolerate potassium. This will be reordered. Patient does not feel comfortable with discharge and feels generally weak. Case was discussed with Dr. Brar, will admit covering Dr. Hyman. - Lab Data Result diagrams: 09/03/22 09:58 09/03/22 09:58 Lab Results 09/03/22 09/03/22 09/03/22 Range/Units 09:58 09:58 09:58 WBC 4.2 (3.8-10.6) k/uL RBC 3.95 (3.80-5.40) m/uL Hgb 13.1 (11.4-16.0) gm/dL Hct 42.0 (34.0-46.0) % MCV 106.2 H (80.0-100.0) fL MCH 33.2 (25.0-35.0) pg MCHC 31.3 (31.0-37.0) g/dL RDW 15.6 H (11.5-15.5) % Plt Count 147 L (150-450) k/uL MPV 9.4 Neutrophils % 67 % Lymphocytes % 18 % Monocytes % 8 % Eosinophils % 4 % Basophils % 1 % Neutrophils # 2.8 (1.3-7.7) k/uL Lymphocytes # 0.8 L (1.0-4.8) k/uL Monocytes # 0.3 (0-1.0) k/uL Eosinophils # 0.2 (0-0.7) k/uL Basophils # 0.0 (0-0.2) k/uL Hypochromasia Moderate Macrocytosis Moderate PT 11.7 (9.0-12.0) sec INR 1.1 (<1.2) APTT 24.3 (22.0-30.0) sec Sodium 138 (137-145) mmol/L Potassium 3.1 L (3.5-5.1) mmol/L Chloride 112 H (98-107) mmol/L Carbon Dioxide 18 L (22-30) mmol/L Anion Gap 8 mmol/L BUN 11 (7-17) mg/dL Creatinine 0.38 L (0.52-1.04) mg/dL Est GFR (CKD-EPI)AfAm >90 (>60 ml/min/1.73 sqM) Est GFR (CKD-EPI)NonAf >90 (>60 ml/min/1.73 sqM) Glucose 86 (74-99) mg/dL Calcium 7.6 L (8.4-10.2) mg/dL Total Bilirubin 1.0 (0.2-1.3) mg/dL AST 26 (14-36) U/L ALT 22 (4-34) U/L Alkaline Phosphatase 60 (38-126) U/L Total Protein 5.5 L (6.3-8.2) g/dL Albumin 3.2 L (3.5-5.0) g/dL Amylase 34 (30-110) U/L Lipase 110 (23-300) U/L Disposition Clinical Impression: Abdominal pain, Vomiting Disposition: ADMITTED IP TO THIS [facility] Condition: Stable Instructions (If sedation given, give patient instructions): Abdominal Pain (ED) Additional Instructions: Prescription sent to pharmacy. Please do follow-up with primary care physician in the next day or 2 for recheck. Return for vomiting, decrease oral intake, increased diarrhea, worsening pain, fevers, worsening symptoms or any other concerns Prescriptions: Dicyclomine [Bentyl] 20 mg PO QID PRN #15 tablet PRN Reason: Pain Ondansetron Odt [Zofran Odt] 4 mg PO Q8HR PRN #10 tab PRN Reason: Nausea Is patient prescribed a controlled substance at d/c from ED?: No Referrals: Dex Mcneal MD [Primary Care Provider] - 1-2 days Time of Disposition: 14:52
[2022-09-03] MEDS ORDERED: POTASSIUM CHLORIDE ER 20 MEQ TAB.ER PO STA (14:54)
--- NOTE | 2022-09-03 16:19 | P.HPIM ---
History of Present Illness H&P Date: 09/03/22 Chief Complaint: nausea/vomitting, diarrhea Patient is a 77-year-old female history of rheumatoid arthritis, osteoarthritis, peptic ulcer disease, systolic CHF, atrial fibrillation, presenting with generalized weakness, nausea, vomiting, diarrhea. She claims that most of her problems started about 6 months ago after she had cholecystectomy for cholecystitis. Since then, she has been experiencing epigastric pain and diarrhea. For the last 3 months her weakness has worsened. She has been getting home care and physical therapy but her symptoms have not improved. She sees Dr. Freeman, and had a recent upper endoscopy which did not reveal anything significant per patient report. She has not had any colonoscopies in the past. Over the last 1 week, her weakness has gotten even worse. She started to have nausea and dry heaves. Her appetite has significantly reduced. Last night, she also started to have more bowel movements, had 5 liquid bowel movements. She denies any chest pain, shortness of breath, urinary symptoms. She denies any recent sick contacts or travel history. In the ED, Her vital signs were within normal limits. Laboratory workup shows potassium of 3.1, bicarb of 18, with a normal anion gap. Lipase was 110. CT abdomen and pelvis showed right renal stones without obstruction, mild fatty infiltration of the liver, small bilateral pleural effusions. Patient seen and examined at bedside. Pertinent positives and negatives as discussed in HPI, a complete review of systems was performed and all other systems are negative. Vital signs reviewed General: nontoxic, no distress, appears at stated age Derm: warm, dry Head: atraumatic, normocephalic, symmetric Eyes: EOMI, no lid lag, anicteric sclera, pupils equal round reactive to light ENT: Nose and ears atraumatic Neck: No thyromegaly, supple Mouth: no lip lesion, mucus membranes moist Cardiovascular: S1S2 reg, no murmur, no edema Lungs: Fine rales at the bases bilaterally, no wheeze, no accessory muscle use Abdominal: soft, mild tenderness palpation in the epigastric region, no guarding, no appreciable organomegaly Ext: no gross muscle atrophy, muscle strength muscle strength 5 out of 5 in all 4 extremities, no contractures Neuro: CN II-XII grossly intact Psych: Alert, oriented, appropriate affect Assessment/Plan: Generalized weakness Acute on chronic diarrhea Nausea and vomiting History of peptic ulcer disease History of cholecystectomy -Fecal fat, calprotectin, lactoferrin pending -Tsh pending -Patient does not have any anemia, less likely celiac disease -Possibly related to bile salt, or SIBO -continue protonix -IV fluids -clear liquid diet, advance as tolerate -zofran PRN Hypokalemia - replete and monitor Non-anion gap Metabolic acidosis -Likely in the setting of diarrhea Chronic medical problems: Rheumatoid arthritis Atrial fibrillation Systolic CHF Hypertension -Medication reviewed and reconciled The patient is admitted with an anticipated less than 2 midnight stay for evaluation of dehydration. Surrogate decision-maker: CODE STATUS: Full code DVT prophylaxis: xarelto Anticipated discharge date: 09/[address]: Home A total of 55 minutes was spent on the care of this complex patient more than 50% of the time was spent in counseling and care coordination. Past Medical History Past Medical History: Atrial Flutter, Asthma, Cancer, COPD, GERD/Reflux, GI Bleed, Hypertension, Memory Impairment, Myocardial Infarction ([place]), Osteoarthritis (OA), Rheumatoid Arthritis (RA) Additional Past Medical History / Comment(s): Chronic cough. Back pain, migraines. Occasional slight difficulty with swallowing. 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 Hx kidney stones, "kidney function low". Last Myocardial Infarction Date:: 2012 History of Any Multi-Drug Resistant Organisms: None Reported Past Surgical History: Back Surgery, Cholecystectomy, Heart Catheterization, Hysterectomy, Joint Replacement, Orthopedic Surgery Additional Past Surgical History / Comment(s): RODS & CAGES IN BACK, RIGHT HIP REPLACEMENT, PARTIAL THYROIDECTOMY, BILATERAL KNEE REPLACEMENTS, NECK SURGERY WITH LIDIA AND CAGES, MELANOMA REMOVED FROM FACE X4, REPAIR OF HEMATOMA/FEMORAL ARTERY AFTER HEART CATHETERIZATION,rt foot bone spur removed Past Anesthesia/Blood Transfusion Reactions: Previous Problems w/ Anesthesia, Motion Sickness, Postoperative Nausea & Vomiting (PONV) Additional Past Anesthesia/Blood Transfusion Reaction / Comment(s): Hard to wake up. Past Psychological History: Depression Smoking Status: Never smoker Past Alcohol Use History: None Reported Past Drug Use History: None Reported - Past Family History Sister(s) Family Medical History: Cancer Brother(s) Family Medical History: Cancer Mother Family Medical History: Myocardial Infarction (OR) Additional Family Medical History / Comment(s): Mother of a [place] at the age of 76yrs. Father History Unknown: Yes Medications and Allergies Home Medications Medication Instructions Recorded Confirmed Type Pantoprazole Sodium [Protonix] 40 mg PO BID 05/14/14 09/03/22 History estradioL [Estrace] 2 mg PO DAILY 05/14/14 09/03/22 History Glucosam/Chond/Hyalu/Cf Borate 1 tab PO DAILY 05/02/20 09/03/22 History [Move Free Joint Health Tablet] nadoloL [Corgard] 40 mg PO DAILY 05/02/20 09/03/22 History Pregabalin [Lyrica] 75 mg PO BID #14 cap 05/24/20 09/03/22 Rx Rivaroxaban [Xarelto] 20 mg PO DAILY 12/02/21 09/03/22 History Cholecalciferol [Vitamin D3 (25 25 mcg PO DAILY 06/16/22 09/03/22 History Mcg = 1000 Iu)] Cyanocobalamin (Vitamin B-12) 1,000 mcg PO DAILY 06/16/22 09/03/22 History [Vitamin B-12] Potassium Citrate 99 mg PO DAILY 06/16/22 09/03/22 History DULoxetine HCL [Cymbalta] 30 mg PO DAILY 08/03/22 09/03/22 History Leflunomide [Arava] 20 mg PO DAILY 08/03/22 09/03/22 History Lysine 500 mg PO DAILY 08/03/22 09/03/22 History Acetaminophen [Tylenol Arthritis] 1,300 mg PO Q12H PRN 08/10/22 09/03/22 History Chlorthalidone 25 mg PO DAILY 08/10/22 09/03/22 History Ipratropium Nebulized [Atrovent 0.5 mg INHALATION RT-BID 08/10/22 09/03/22 History Nebulized 0.2 MG/ML] Losartan [Cozaar] 50 mg PO DAILY 90 Days #90 tab 08/10/22 09/03/22 Rx Dicyclomine [Bentyl] 20 mg PO QID PRN #15 tablet 09/03/22 Rx Ipratropium Nebulized [Atrovent 0.5 mg INHALATION RT-BID PRN 09/03/22 09/03/22 History Nebulized 0.2 MG/ML] Ondansetron Odt [Zofran Odt] 4 mg PO Q8HR PRN #10 tab 09/03/22 Rx Allergies Allergy/AdvReac Type Severity Reaction Status Date / Time cephalexin monohydrate Allergy Rash/Hives Verified 09/03/22 11:35 [From Keflex] diphenhydramine HCl Allergy SWELLING Verified 09/03/22 11:35 [From Benadryl] OF TONGUE, SOB enoxaparin [From Lovenox] Allergy Rash/Hives Verified 09/03/22 11:35 Penicillins Allergy SWELLING, Verified 09/03/22 11:35 HIVES aspirin AdvReac EXCESS Verified 09/03/22 11:35 BLEEDING garlic AdvReac Nausea Verified 09/03/22 11:35 morphine AdvReac Vomiting Verified 09/03/22 11:35 sulfamethoxazole AdvReac Nausea & Verified 09/03/22 11:35 [From Bactrim] Vomiting trimethoprim [From Bactrim] AdvReac Nausea & Verified 09/03/22 11:35 Vomiting milk chocolate AdvReac Nausea Uncoded 09/03/22 11:35 Physical Exam Vitals: Vital Signs Temp Pulse Resp BP Pulse Ox 09/03/22 13:25 82 16 156/112 99 09/03/22 09:19 97.4 F L 88 18 150/107 96 Intake and Output 09/03/22 09/03/22 09/03/22 06:59 14:59 22:59 Other: Weight 68.946 kg Results CBC & Chem 7: 09/03/22 09:58 09/03/22 09:58 Labs: Abnormal Lab Results - Last 24 Hours (Table) 09/03/22 09/03/22 Range/Units 09:58 09:58 MCV 106.2 H (80.0-100.0) fL RDW 15.6 H (11.5-15.5) % Plt Count 147 L (150-450) k/uL Lymphocytes # 0.8 L (1.0-4.8) k/uL Potassium 3.1 L (3.5-5.1) mmol/L Chloride 112 H (98-107) mmol/L Carbon Dioxide 18 L (22-30) mmol/L Creatinine 0.38 L (0.52-1.04) mg/dL Calcium 7.6 L (8.4-10.2) mg/dL Total Protein 5.5 L (6.3-8.2) g/dL Albumin 3.2 L (3.5-5.0) g/dL
[2022-09-03] MEDS: SODIUM CHLORIDE 0.9% 1,000 ML IV SCH (18:26)
[2022-09-03] MEDS: PREGABALIN 75 MG CAP PO SCH (19:46)
[2022-09-03] MEDS: IPRATROPIUM 0.5 MG/2.5 ML NEBU INHALATION SCH (19:56)
[2022-09-04 01:51] LABS: Gliadin AB IgA, Deaminated NEGATIVE (NEGATIVE); Gliadin AB IgA, Unit 0.5 U/mL; Gliadin AB IgG, Deaminated NEGATIVE (NEGATIVE); Gliadin AB IgG, Unit <0.4 U/mL
[2022-09-04] MEDS: SODIUM CHLORIDE 0.9% 1,000 ML IV SCH ×2 (06:04→18:57)
[2022-09-04 08:39] LABS: Basophils % (A) 2.3 %; Eosinophils # (A) 0.17 X 10*3/uL (0.04-0.35); HCT 38.6 % (37.2-46.3); HGB 12.3 g/dL (12.0-15.0); Immature Grans, Automated 0.2 %; Lymphocytes # (A) 1.08 X 10*3/uL (0.90-5.00); Lymphocytes % (A) 25.2 %; MCH 32.9 pg (27.0-32.0); MCHC 31.9 g/dL (32.0-37.0); MCV 103.2 fL (80.0-97.0); Monocytes # (A) 0.78 X 10*3/uL (0.20-1.00); Monocytes % (A) 18.2 %; NRBC Per 100 WBC 0 /100 WBCS (0.0-0.0); Neutrophils # (A) 2.14 X 10*3/uL (1.80-7.70); Neutrophils % (A) 50.1 %; Platelet Count 176 X 10*3/uL (140-440); RBC 3.74 X 10*6/uL (4.10-5.20); RDW 15.8 % (11.5-14.5); WBC 4.28 X 10*3/uL (4.50-10.00)
[2022-09-04 08:51] LABS: African American GFR (CKD) 101.9 (60.0-200.0); Albumin 3.4 g/dL (3.8-4.9); Albumin/Globulin Ratio 1.55 (1.60-3.17); Anion Gap 13.8 mmol/L (10.00-18.00); BUN/Creat Ratio 18.33 Ratio (12.00-20.00); Calcium 8.9 mg/dL (8.7-10.3); Carbon Dioxide 20.2 mmol/L (20.0-27.5); Globulin 2.2 g/dL (1.6-3.3); Non-African American GFR(CKD) 87.9 (60.0-200.0); Total Bilirubin 0.8 mg/dL (0.30-1.20); Total Protein 5.6 g/dL (6.2-8.2)
[2022-09-04] MEDS: IPRATROPIUM 0.5 MG/2.5 ML NEBU INHALATION SCH ×2 (09:14→20:08)
[2022-09-04] MEDS: CYANOCOBALAMIN 500 MCG TAB PO SCH (09:42)
[2022-09-04] MEDS: CHOLECALCIFEROL 25 MCG (1000 IU) TABLET PO SCH (09:43)
[2022-09-04] MEDS: RIVAROXABAN 20 MG TAB PO SCH (09:43)
[2022-09-04] MEDS: DULoxetine HCL 30 MG CAPSULE.DR PO SCH (09:43)
[2022-09-04] MEDS: LOSARTAN 50 MG TAB PO SCH (09:43)
[2022-09-04] MEDS: CHLORTHALIDONE 25 MG TAB PO SCH (09:44)
[2022-09-04] MEDS: PANTOPRAZOLE 40 MG/10 ML VIAL IV SCH (09:44)
[2022-09-04] MEDS: LEFLUNOMIDE 20 MG TAB PO SCH (09:44)
[2022-09-04] MEDS: PREGABALIN 75 MG CAP PO SCH ×2 (09:44→19:55)
[2022-09-04] MEDS ORDERED: LOPERAMIDE 2 MG CAP PO STA (12:51)
[2022-09-04] MEDS ORDERED: LOPERAMIDE 2 MG CAP PO PRN (13:01)
--- NOTE | 2022-09-04 13:05 | P.PN ---
Subjective Progress Note Date: 09/04/22 Principal diagnosis: weakness Hospital Course: 77-year-old female history of rheumatoid arthritis, osteoarthritis, peptic ulcer disease, systolic CHF, atrial fibrillation, presenting with generalized weakness, nausea, vomiting, diarrhea. Her medical problems are mostly acute on chronic. On admission, vital signs were stable. Laboratory workup showed hypok alemia, normal anion gap metabolic acidosis. CT abdomen and pelvis showed right renal stones without obstruction, mild fatty infiltration of the liver, small bilateral pleural effusions. Patient is IV fluid resuscitated. Subjective: Patient seen and examined at bedside. No acute events overnight. She continues to have multiple liquid bowel movements. She denies any chest pain, shortness of breath, abdominal pain. Pertinent positives and negatives as discussed above, a complete review of systems was performed and all other systems are negative. Vitals Signs Reviewed. General: nontoxic, no distress, appears at stated age Derm: warm, dry Head: atraumatic, normocephalic, symmetric Eyes: EOMI, no lid lag, anicteric sclera ENT: Nose and ears atraumatic Neck: No thyromegaly, supple Mouth: no lip lesion, mucus membranes moist Cardiovascular: S1S2 reg, no murmur, no edema Lungs: Fine rales at the bases bilaterally, no wheeze, no accessory muscle use Abdominal: soft, nontender, no guarding, no appreciable organomegaly Ext: no gross muscle atrophy Neuro: CN II-XII grossly intact Psych: Alert, oriented, appropriate affect Assessment and Plan: Generalized weakness Acute on chronic diarrhea Nausea and vomiting - resolved History of peptic ulcer disease History of cholecystectomy -Fecal fat, calprotectin, lactoferrin pending -cdiff pending -Tsh normal -Celiac panel negative -Possibly related to bile salt, or SIBO -continue protonix -IV fluids -clear liquid diet, advance as tolerate -zofran PRN -Loperamide PRN Hypokalemia -resolved Non-anion gap Metabolic acidosis - resolving -Likely in the setting of diarrhea Chronic medical problems: Rheumatoid arthritis Atrial fibrillation Systolic CHF Hypertension -Continue home medications DVT ppx: xarelto Code status: Full code Anticipated discharge place: Home Anticipated discharge time: likely tomorrow Objective - Vital Signs Vital signs: Vital Signs Temp 98.0 F 09/04/22 07:10 Pulse 108 H 09/04/22 09:25 Resp 16 09/04/22 07:10 BP 139/78 09/04/22 07:10 Pulse Ox 94 L 09/04/22 07:10 FiO2 Intake & Output 09/03/22 09/04/22 09/04/22 18:59 06:59 18:59 Intake Total 118 120 Balance 118 120 Weight 68.946 kg Intake: Oral 118 120 Other: Voiding Method Bedside Commode # Voids 1 3 - Labs CBC & Chem 7: 09/04/22 05:50 09/04/22 05:50 Labs: Abnormal Lab Results - Last 24 Hours (Table) 09/04/22 09/04/22 Range/Units 05:50 05:50 WBC 4.28 L (4.50-10.00) X 10*3/uL RBC 3.74 L (4.10-5.20) X 10*6/uL MCV 103.2 H (80.0-97.0) fL MCH 32.9 H (27.0-32.0) pg MCHC 31.9 L (32.0-37.0) g/dL RDW 15.8 H (11.5-14.5) % Total Protein 5.6 L (6.2-8.2) g/dL Albumin 3.4 L (3.8-4.9) g/dL Albumin/Globulin Ratio 1.55 L (1.60-3.17) g/dL
[2022-09-04] MEDS ORDERED: ACETAMINOPHEN TAB 325 MG TAB PO PRN (22:16)
[2022-09-05] MEDS: BENZONATATE 100 MG CAP PO PRN ×2 (01:27→22:48)
[2022-09-05] MEDS: IPRATROPIUM-ALBUTEROL 3 ML NEB INHALATION PRN ×2 (01:35→08:11)
[2022-09-05] MEDS: IPRATROPIUM 0.5 MG/2.5 ML NEBU INHALATION SCH ×2 (08:11→20:43)
[2022-09-05] MEDS: CHOLECALCIFEROL 25 MCG (1000 IU) TABLET PO SCH (09:11)
[2022-09-05] MEDS: DULoxetine HCL 30 MG CAPSULE.DR PO SCH (09:11)
[2022-09-05] MEDS: LEFLUNOMIDE 20 MG TAB PO SCH (09:11)
[2022-09-05] MEDS: RIVAROXABAN 20 MG TAB PO SCH (09:11)
[2022-09-05] MEDS: CHLORTHALIDONE 25 MG TAB PO SCH (09:11)
[2022-09-05] MEDS: CYANOCOBALAMIN 500 MCG TAB PO SCH (09:11)
[2022-09-05] MEDS: LOSARTAN 50 MG TAB PO SCH (09:11)
[2022-09-05] MEDS: PANTOPRAZOLE 40 MG/10 ML VIAL IV SCH ×2 (09:12→20:39)
[2022-09-05] MEDS: PREGABALIN 75 MG CAP PO SCH ×2 (09:19→20:39)
[2022-09-05] MEDS: SODIUM CHLORIDE 0.9% 1,000 ML IV SCH ×2 (09:20→21:34)
--- NOTE | 2022-09-05 13:17 | P.DS ---
Providers Date of admission: 09/03/22 14:53 Expected date of discharge: 09/05/22 Attending physician: Katy Khan MD Primary care physician: Dex Mcneal MD Hospital Course: Discharge Diagnosis: Generalized weakness Acute on chronic diarrhea Nausea and vomiting History of peptic ulcer disease History of cholecystectomy Hypokalemia Non-anion gap metabolic acidosis Rheumatoid arthritis Hospital Course: 77-year-old female history of rheumatoid arthritis, osteoarthritis, peptic ulcer disease, systolic CHF, atrial fibrillation, presenting with generalized weakness, nausea, vomiting, diarrhea. Her medical problems are mostly acute on chronic. On admission, vital signs were stable. Laboratory workup showed hypokalemia, normal anion gap metabolic acidosis. CT abdomen and pelvis showed right renal stones without obstruction, mild fatty infiltration of the liver, small bilateral pleural effusions. Patient is IV fluid resuscitated. Electrolytes improved after ablation. TSH was normal. Celiac panel was negative. Stool lactoferrin positive. Unable to obtain stool osmolality and fat quantity. Patient was able to tolerate oral diet, and had reduced bowel movements while inpatient. C. diff not tested given improvement in bowel movements. She claims that she has been worked up for this diarrhea by her title closer, Dr. Freeman. Chronic diarrhea could be secondary to bile salts given recent cholecystectomy, inflammatory bowel disease, microscopic colitis, irritable bowel syndrome, or SIBO. Patient needs further workup as an outpatient. Patient seen and examined at bedside. Vital signs reviewed and stable. General: nontoxic, no distress, appears at stated age Derm: warm, dry Head: atraumatic, normocephalic, symmetric Eyes: EOMI, no lid lag, anicteric sclera ENT: Nose and ears atraumatic Neck: No thyromegaly, supple Mouth: no lip lesion, mucus membranes moist Cardiovascular: S1S2 reg, no murmur, no edema Lungs: Fine rales at the bases bilaterally, no wheeze, no accessory muscle use Abdominal: soft, nontender, no guarding, no appreciable organomegaly Ext: no gross muscle atrophy Neuro: CN II-XII grossly intact Psych: Alert, oriented, appropriate affect A total of 44 minutes of time were spent preparing this complex discharge summary. Patient was discharged on 09/05/22 at 10:29. Patient Condition at Discharge: Stable Plan - Discharge Summary New Discharge Prescriptions: New Loperamide [Imodium] 2 mg PO QID PRN #10 cap PRN Reason: Diarrhea Ondansetron Odt [Zofran Odt] 4 mg PO Q8HR PRN #10 tab PRN Reason: Nausea Continue Pantoprazole Sodium [Protonix] 40 mg PO BID estradioL [Estrace] 2 mg PO DAILY Glucosam/Chond/Hyalu/Cf Borate [Move Free Joint Health Tablet] 1 tab PO DAILY nadoloL [Corgard] 40 mg PO DAILY Pregabalin [Lyrica] 75 mg PO BID #14 cap Cholecalciferol [Vitamin D3 (25 Mcg = 1000 Iu)] 25 mcg PO DAILY DULoxetine HCL [Cymbalta] 30 mg PO DAILY Lysine 500 mg PO DAILY Ipratropium Nebulized [Atrovent Nebulized 0.2 MG/ML] 0.5 mg INHALATION RT-BID PRN PRN Reason: Shortness Of Breath Rivaroxaban [Xarelto] 20 mg PO DAILY Potassium Citrate 99 mg PO DAILY Cyanocobalamin (Vitamin B-12) [Vitamin B-12] 1,000 mcg PO DAILY Leflunomide [Arava] 20 mg PO DAILY Acetaminophen [Tylenol Arthritis] 1,300 mg PO Q12H PRN PRN Reason: Pain Chlorthalidone 25 mg PO DAILY Ipratropium Nebulized [Atrovent Nebulized 0.2 MG/ML] 0.5 mg INHALATION RT-BID Losartan [Cozaar] 50 mg PO DAILY 90 Days #90 tab Discharge Medication List Pantoprazole Sodium [Protonix] 40 mg PO BID 05/14/14 [History] estradioL [Estrace] 2 mg PO DAILY 05/14/14 [History] Glucosam/Chond/Hyalu/Cf Borate [Move Free Joint Health Tablet] 1 tab PO DAILY 05/02/20 [History] nadoloL [Corgard] 40 mg PO DAILY 05/02/20 [History] Pregabalin [Lyrica] 75 mg PO BID #14 cap 05/24/20 [Rx] Rivaroxaban [Xarelto] 20 mg PO DAILY 12/02/21 [History] Cholecalciferol [Vitamin D3 (25 Mcg = 1000 Iu)] 25 mcg PO DAILY 06/16/22 [History] Cyanocobalamin (Vitamin B-12) [Vitamin B-12] 1,000 mcg PO DAILY 06/16/22 [History] Potassium Citrate 99 mg PO DAILY 06/16/22 [History] DULoxetine HCL [Cymbalta] 30 mg PO DAILY 08/03/22 [History] Leflunomide [Arava] 20 mg PO DAILY 08/03/22 [History] Lysine 500 mg PO DAILY 08/03/22 [History] Acetaminophen [Tylenol Arthritis] 1,300 mg PO Q12H PRN 08/10/22 [History] Chlorthalidone 25 mg PO DAILY 08/10/22 [History] Ipratropium Nebulized [Atrovent Nebulized 0.2 MG/ML] 0.5 mg INHALATION RT-BID 08/10/22 [History] Losartan [Cozaar] 50 mg PO DAILY 90 Days #90 tab 08/10/22 [Rx] Ipratropium Nebulized [Atrovent Nebulized 0.2 MG/ML] 0.5 mg INHALATION RT-BID PRN 09/03/22 [History] Ondansetron Odt [Zofran Odt] 4 mg PO Q8HR PRN #10 tab 09/03/22 [Rx] Loperamide [Imodium] 2 mg PO QID PRN #10 cap 09/05/22 [Rx] Follow up Appointment(s)/Referral(s): Dex Mcneal MD [Primary Care Provider] - 1-2 days Patient Instructions/Handouts: Chronic Diarrhea (DC), Abdominal Pain (ED) Activity/Diet/Wound Care/Special Instructions: Please see your PCP in 1-[address] Freeman for further work up of diarrhea and abdominal pain. You may need medications if it is determined that gallbladder removal is the cause of diarrhea. Discharge Disposition: HOME SELF-CARE
[2022-09-05] MEDS ORDERED: HYOSCYAMINE ORAL DROPS 1.875 MG/15 ML BOTTLE PO PRN (14:57)
[2022-09-06] MEDS: IPRATROPIUM 0.5 MG/2.5 ML NEBU INHALATION SCH (07:25)
[2022-09-06] MEDS: LEFLUNOMIDE 20 MG TAB PO SCH (08:40)
[2022-09-06] MEDS: CHLORTHALIDONE 25 MG TAB PO SCH (08:41)
[2022-09-06] MEDS: RIVAROXABAN 20 MG TAB PO SCH (08:41)
[2022-09-06] MEDS: CYANOCOBALAMIN 500 MCG TAB PO SCH (08:41)
[2022-09-06] MEDS: PANTOPRAZOLE 40 MG/10 ML VIAL IV SCH (08:42)
[2022-09-06] MEDS: LOSARTAN 50 MG TAB PO SCH (08:42)
[2022-09-06] MEDS: CHOLECALCIFEROL 25 MCG (1000 IU) TABLET PO SCH (08:42)
[2022-09-06] MEDS: DULoxetine HCL 30 MG CAPSULE.DR PO SCH (08:42)
[2022-09-06] MEDS: PREGABALIN 75 MG CAP PO SCH (08:50)
[2022-09-06 08:53] VITALS: BP 141/89; PULSE 69; RESP 16; TEMP 97.4
--- NOTE | 2022-09-06 09:41 | P.DS ---
Providers Date of admission: 09/03/22 14:53 Expected date of discharge: 09/06/22 Attending physician: Katy Khan MD Primary care physician: Dex Mcneal MD Hospital Course: Discharge Diagnosis: Generalized weakness Acute on chronic diarrhea Nausea and vomiting History of peptic ulcer disease History of cholecystectomy Hypokalemia Non-anion gap metabolic acidosis Rheumatoid arthritis Hospital Course: 77-year-old female history of rheumatoid arthritis, osteoarthritis, peptic ulcer disease, systolic CHF, atrial fibrillation, presenting with generalized weakness, nausea, vomiting, diarrhea. Her medical problems are mostly acute on chronic. On admission, vital signs were stable. Laboratory workup showed hypokalemia, normal anion gap metabolic acidosis. CT abdomen and pelvis showed right renal stones without obstruction, mild fatty infiltration of the liver, small bilateral pleural effusions. Patient is IV fluid resuscitated. Electrolytes improved after ablation. TSH was normal. Celiac panel was negative. Stool lactoferrin positive. Unable to obtain stool osmolality and fat quantity. Patient was able to tolerate oral diet, and had reduced bowel movements while inpatient. C. diff not tested given improvement in bowel movements. She claims that she has been worked up for this diarrhea by her network project manager, Dr. Freeman. Chronic diarrhea could be secondary to bile salts given recent cholecystectomy, inflammatory bowel disease, microscopic colitis, irritable bowel syndrome, or SIBO. Patient needs further workup as an outpatient. Patient seen and examined at bedside. Vital signs reviewed and stable. General: nontoxic, no distress, appears at stated age Derm: warm, dry Head: atraumatic, normocephalic, symmetric Eyes: EOMI, no lid lag, anicteric sclera ENT: Nose and ears atraumatic Neck: No thyromegaly, supple Mouth: no lip lesion, mucus membranes moist Cardiovascular: S1S2 reg, no murmur, no edema Lungs: Fine rales at the bases bilaterally, no wheeze, no accessory muscle use Abdominal: soft, nontender, no guarding, no appreciable organomegaly Ext: no gross muscle atrophy Neuro: CN II-XII grossly intact Psych: Alert, oriented, appropriate affect A total of 44 minutes of time were spent preparing this complex discharge summary. Patient was discharged on 09/06/22 at 9:40. Patient Condition at Discharge: Stable Plan - Discharge Summary New Discharge Prescriptions: New Loperamide [Imodium] 2 mg PO QID PRN #10 cap PRN Reason: Diarrhea Benzonatate [Tessalon Perles] 100 mg PO TID PRN #14 capsule PRN Reason: Cough Ondansetron Odt [Zofran Odt] 4 mg PO Q8HR PRN #10 tab PRN Reason: Nausea Continue Pantoprazole Sodium [Protonix] 40 mg PO BID estradioL [Estrace] 2 mg PO DAILY Glucosam/Chond/Hyalu/Cf Borate [Move Free Joint Health Tablet] 1 tab PO DAILY nadoloL [Corgard] 40 mg PO DAILY Pregabalin [Lyrica] 75 mg PO BID #14 cap Cholecalciferol [Vitamin D3 (25 Mcg = 1000 Iu)] 25 mcg PO DAILY DULoxetine HCL [Cymbalta] 30 mg PO DAILY Lysine 500 mg PO DAILY Ipratropium Nebulized [Atrovent Nebulized 0.2 MG/ML] 0.5 mg INHALATION RT-BID PRN PRN Reason: Shortness Of Breath Rivaroxaban [Xarelto] 20 mg PO DAILY Potassium Citrate 99 mg PO DAILY Cyanocobalamin (Vitamin B-12) [Vitamin B-12] 1,000 mcg PO DAILY Leflunomide [Arava] 20 mg PO DAILY Acetaminophen [Tylenol Arthritis] 1,300 mg PO Q12H PRN PRN Reason: Pain Chlorthalidone 25 mg PO DAILY Ipratropium Nebulized [Atrovent Nebulized 0.2 MG/ML] 0.5 mg INHALATION RT-BID Losartan [Cozaar] 50 mg PO DAILY 90 Days #90 tab Discharge Medication List Pantoprazole Sodium [Protonix] 40 mg PO BID 05/14/14 [History] estradioL [Estrace] 2 mg PO DAILY 05/14/14 [History] Glucosam/Chond/Hyalu/Cf Borate [Move Free Joint Health Tablet] 1 tab PO DAILY 05/02/20 [History] nadoloL [Corgard] 40 mg PO DAILY 05/02/20 [History] Pregabalin [Lyrica] 75 mg PO BID #14 cap 05/24/20 [Rx] Rivaroxaban [Xarelto] 20 mg PO DAILY 12/02/21 [History] Cholecalciferol [Vitamin D3 (25 Mcg = 1000 Iu)] 25 mcg PO DAILY 06/16/22 [History] Cyanocobalamin (Vitamin B-12) [Vitamin B-12] 1,000 mcg PO DAILY 06/16/22 [History] Potassium Citrate 99 mg PO DAILY 06/16/22 [History] DULoxetine HCL [Cymbalta] 30 mg PO DAILY 08/03/22 [History] Leflunomide [Arava] 20 mg PO DAILY 08/03/22 [History] Lysine 500 mg PO DAILY 08/03/22 [History] Acetaminophen [Tylenol Arthritis] 1,300 mg PO Q12H PRN 08/10/22 [History] Chlorthalidone 25 mg PO DAILY 08/10/22 [History] Ipratropium Nebulized [Atrovent Nebulized 0.2 MG/ML] 0.5 mg INHALATION RT-BID 08/10/22 [History] Losartan [Cozaar] 50 mg PO DAILY 90 Days #90 tab 08/10/22 [Rx] Ipratropium Nebulized [Atrovent Nebulized 0.2 MG/ML] 0.5 mg INHALATION RT-BID PRN 09/03/22 [History] Ondansetron Odt [Zofran Odt] 4 mg PO Q8HR PRN #10 tab 09/03/22 [Rx] Loperamide [Imodium] 2 mg PO QID PRN #10 cap 09/05/22 [Rx] Benzonatate [Tessalon Perles] 100 mg PO TID PRN #14 capsule 09/06/22 [Rx] Follow up Appointment(s)/Referral(s): Dex Mcneal MD [Primary Care Provider] - 1-2 days Patient Instructions/Handouts: Chronic Diarrhea (DC), Abdominal Pain (ED) Activity/Diet/Wound Care/Special Instructions: Please see your PCP in 1-[address] Freeman for further work up of diarrhea and abdominal pain. You may need medications if it is determined that gallbladder removal is the cause of diarrhea. Discharge Disposition: HOME SELF-CARE
== END 2022-09-06 11:22 | disposition home or self-care (01) ==
LOC: EC 09:18 → 6NMEDSUR 14:53
PROVIDERS: ADMIT Family Medicine; ATTEND Family Medicine
DX: R53.1 Weakness (principal); R19.7 Diarrhea, unspecified; E86.0 Dehydration; E87.6 Hypokalemia; E87.20 Acidosis, unspecified; J44.9 Chronic obstructive pulmonary disease, unspecified; K21.9 Gastro-esophageal reflux disease without esophagitis; I25.2 Old myocardial infarction; M06.9 Rheumatoid arthritis, unspecified; I48.92 Unspecified atrial flutter; K76.0 Fatty (change of) liver, not elsewhere classified; F32.A Depression, unspecified; N20.0 Calculus of kidney; N28.1 Cyst of kidney, acquired; I70.0 Atherosclerosis of aorta; I11.0 Hypertensive heart disease with heart failure; I50.22 Chronic systolic (congestive) heart failure; E89.0 Postprocedural hypothyroidism; I48.91 Unspecified atrial fibrillation; Z85.820 Personal history of malignant melanoma of skin; Z79.899 Other long term (current) drug therapy; Z79.890 Hormone replacement therapy; Z79.01 Long term (current) use of anticoagulants; Z88.0 Allergy status to penicillin; Z90.49 Acquired absence of other specified parts of digestive tract; Z90.710 Acquired absence of both cervix and uterus; Z96.653 Presence of artificial knee joint, bilateral; Z96.641 Presence of right artificial hip joint; Z82.49 Family history of ischemic heart disease and other diseases of the circulatory system; Z80.9 Family history of malignant neoplasm, unspecified
CPT/HCPCS: 96376 ×2; 96361 ×5; 96375 ×2; 96360; 96374; 99285; 36415; 94640 ×6; 80053 ×2; 84443; 82150; 83690; 85025 ×2; 85610; 85730; 83516 ×4; 83630; 74177; G0378 ×4; J2405 ×2; C9113 ×3; J1170; Q9967

== ENCOUNTER 2022-09-06 13:44 | Emergency (ER) | payer MEDICARE, BC ==
[2022-09-06 13:50] VITALS: TEMP 98
--- NOTE | 2022-09-06 14:21 | ED ---
General Adult HPI - General Chief complaint: Fall Stated complaint: Hip pain, Fall Time Seen by Provider: 09/06/22 13:51 Source: patient Mode of arrival: ambulatory Limitations: no limitations - History of Present Illness Initial comments: Dictation was produced using [employer] dictation software. please excuse any grammatical, word or spelling errors. Chief Complaint: 77-year-old female presents emergency department after fall History of Present Illness: 77-year-old female she presents to the emergency department after fall. Patient was just discharged earlier today after being hospitalized for 3 days. Patient was admitted for generalized weakness. She was discharged and was getting into her car when she tripped and wasn't really able to regain her balance. She fell landing on her right hip. 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 She does take anti-coagulation medications. States she did hit the side of her head but denies any loss of consciousness. She did hit her elbow also. The ROS documented in this emergency department record has been reviewed and confirmed by me. Those systems with pertinent positive or negative responses have been documented in the HPI. All other systems are other negative and/or noncontributory. PHYSICAL EXAM: General Impression: Alert and oriented x3, not in acute distress HEENT: Normocephalic atraumatic, extra-ocular movements intact, pupils equal and reactive to light bilaterally, mucous membranes moist. Cardiovascular: Heart regular rate and rhythm Chest: Able to complete full sentences, no retractions, no tachypnea Abdomen: abdomen soft, non-tender, non-distended, no organomegaly Musculoskeletal: Pulses present and equal in all extremities, no peripheral edema Motor: no focal deficits noted Neurological: CN II-XII grossly intact, no focal motor or sensory deficits noted Skin: Abrasion to the left elbow Psych: Normal affect and mood ED course: 77-year-old female who was just discharged today presents to the ER after trip and fall in the parking lot. Vital signs upon arrival are within acceptable limits. Patient complaining of right hip pain. She is on anticoagulation medications. Computed tomography scan of the head and C-spine obtained showing no acute processes. Elbow x-ray is unremarkable. Hip x-ray shows no acute fracture dislocation. Patient observed in the emergency department for 2 hours. Patient be discharged. - Related Data Home Medications Medication Instructions Recorded Confirmed Pantoprazole Sodium [Protonix] 40 mg PO BID 05/14/14 09/03/22 estradioL [Estrace] 2 mg PO DAILY 05/14/14 09/03/22 Glucosam/Chond/Hyalu/Cf Borate 1 tab PO DAILY 05/02/20 09/03/22 [Move Free Joint Health Tablet] nadoloL [Corgard] 40 mg PO DAILY 05/02/20 09/03/22 Rivaroxaban [Xarelto] 20 mg PO DAILY 12/02/21 09/03/22 Cholecalciferol [Vitamin D3 (25 25 mcg PO DAILY 06/16/22 09/03/22 Mcg = 1000 Iu)] Cyanocobalamin (Vitamin B-12) 1,000 mcg PO DAILY 06/16/22 09/03/22 [Vitamin B-12] Potassium Citrate 99 mg PO DAILY 06/16/22 09/03/22 DULoxetine HCL [Cymbalta] 30 mg PO DAILY 08/03/22 09/03/22 Leflunomide [Arava] 20 mg PO DAILY 08/03/22 09/03/22 Lysine 500 mg PO DAILY 08/03/22 09/03/22 Acetaminophen [Tylenol Arthritis] 1,300 mg PO Q12H PRN 08/10/22 09/03/22 Chlorthalidone 25 mg PO DAILY 08/10/22 09/03/22 Ipratropium Nebulized [Atrovent 0.5 mg INHALATION RT-BID 08/10/22 09/03/22 Nebulized 0.2 MG/ML] Ipratropium Nebulized [Atrovent 0.5 mg INHALATION RT-BID PRN 09/03/22 09/03/22 Nebulized 0.2 MG/ML] Previous Rx's Medication Instructions Recorded Pregabalin [Lyrica] 75 mg PO BID #14 cap 05/24/20 Losartan [Cozaar] 50 mg PO DAILY 90 Days #90 tab 08/10/22 Ondansetron Odt [Zofran Odt] 4 mg PO Q8HR PRN #10 tab 09/03/22 Loperamide [Imodium] 2 mg PO QID PRN #10 cap 09/05/22 Benzonatate [Tessalon Perles] 100 mg PO TID PRN #14 capsule 09/06/22 HYDROcodone/APAP 5-325MG [[place] 1 tab PO Q6HR PRN 3 Days #12 tab 09/06/22 5-325] Allergies Allergy/AdvReac Type Severity Reaction Status Date / Time cephalexin monohydrate Allergy Rash/Hives Verified 09/06/22 13:50 [From Keflex] diphenhydramine HCl Allergy SWELLING Verified 09/06/22 13:50 [From Benadryl] OF TONGUE, SOB enoxaparin [From Lovenox] Allergy Rash/Hives Verified 09/06/22 13:50 Penicillins Allergy SWELLING, Verified 09/06/22 13:50 HIVES aspirin AdvReac EXCESS Verified 09/06/22 13:50 BLEEDING garlic AdvReac Nausea Verified 09/06/22 13:50 milk AdvReac Abdominal Verified 09/06/22 13:50 Pain morphine AdvReac Vomiting Verified 09/06/22 13:50 sulfamethoxazole AdvReac Nausea & Verified 09/06/22 13:50 [From Bactrim] Vomiting trimethoprim [From Bactrim] AdvReac Nausea & Verified 09/06/22 13:50 Vomiting milk chocolate AdvReac Nausea Uncoded 09/03/22 11:35 Review of Systems ROS Statement: Those systems with pertinent positive or pertinent negative responses have been documented in the HPI. ROS Other: All systems not noted in ROS Statement are negative. Past Medical History Past Medical History: Atrial Flutter, Asthma, Cancer, COPD, GERD/Reflux, GI Bleed, Hypertension, Memory Impairment, Myocardial Infarction ([place]), Osteoarthritis (OA), Rheumatoid Arthritis (RA) Additional Past Medical History / Comment(s): Chronic cough. Back pain, migraines. Occasional slight difficulty with swallowing. 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 Hx kidney stones, "kidney function low". Last Myocardial Infarction Date:: 2012 History of Any Multi-Drug Resistant Organisms: None Reported Past Surgical History: Back Surgery, Cholecystectomy, Heart Catheterization, Hysterectomy, Joint Replacement, Orthopedic Surgery Additional Past Surgical History / Comment(s): RODS & CAGES IN BACK, RIGHT HIP REPLACEMENT, PARTIAL THYROIDECTOMY, BILATERAL KNEE REPLACEMENTS, NECK SURGERY WITH LIDIA AND CAGES, MELANOMA REMOVED FROM FACE X4, REPAIR OF HEMATOMA/FEMORAL ARTERY AFTER HEART CATHETERIZATION,rt foot bone spur removed Past Anesthesia/Blood Transfusion Reactions: Previous Problems w/ Anesthesia, Motion Sickness, Postoperative Nausea & Vomiting (PONV) Additional Past Anesthesia/Blood Transfusion Reaction / Comment(s): Hard to wake up. Past Psychological History: Depression Smoking Status: Never smoker Past Alcohol Use History: None Reported Past Drug Use History: None Reported - Past Family History Sister(s) Family Medical History: Cancer Brother(s) Family Medical History: Cancer Mother Family Medical History: Myocardial Infarction ([place]) Additional Family Medical History / Comment(s): Mother of a [place] at the age of 76yrs. Father History Unknown: Yes General Exam Limitations: no limitations Course Vital Signs 09/06/22 13:47 Temperature 98 F Pulse Rate 73 Respiratory 22 Rate Blood Pressure 155/90 O2 Sat by Pulse 96 Oximetry Disposition Clinical Impression: Contusion, hip, Fall Disposition: HOME SELF-CARE Condition: Good Instructions (If sedation given, give patient instructions): Fall Prevention for Older Adults (ED) Prescriptions: HYDROcodone/APAP 5-325MG [[place] 5-325] 1 tab PO Q6HR PRN 3 Days #12 tab PRN Reason: Severe Pain Is patient prescribed a controlled substance at d/c from ED?: No Referrals: Dex Mcneal MD [Primary Care Provider] - 1-2 days Time of Disposition: 16:00
--- NOTE | 2022-09-06 15:20 | XR ---
EXAMINATION TYPE: XR Hip Complete RT DATE OF EXAM: 09/06/2022 CLINICAL HISTORY: Fall injury with pain. TECHNIQUE: AP and frogleg views of the left hip are obtained. COMPARISON: CT abdomen and pelvis 3 days ago.. FINDINGS: There is no acute fracture/dislocation evident in the right hip. Metallic prosthesis appea rs stable and satisfactory in position. Pubic symphysis remains intact. Overlying soft tissue is unre markable. IMPRESSION: There is no acute fracture or dislocation in the right hip.
--- NOTE | 2022-09-06 15:21 | XR ---
EXAMINATION TYPE: XR elbow complete LT DATE OF EXAM: 09/06/2022 CLINICAL HISTORY: Fall injury with pain TECHNIQUE: Frontal, lateral and oblique images of the left elbow are obtained. COMPARISON: None FINDINGS: There is no acute fracture/dislocation evident in the left elbow. No abnormal fat pad sig ns are seen. The overlying soft tissue appears unremarkable. IMPRESSION: There is no acute fracture or dislocation in the left elbow.
--- NOTE | 2022-09-06 15:42 | CT ---
EXAMINATION TYPE: CT brain cspine wo con DATE OF EXAM: 09/06/2022 COMPARISON: CT brain July 01, 2021. CT cervical spine June 18, 2018 HISTORY: fall injury with headache and neck pain. CT DLP: 1305.5 mGycm. Automated Exposure Control for Dose Reduction was Utilized. TECHNIQUE: CT scan of the head and cervical spine are performed without contrast. FINDINGS: There is no acute intracranial hemorrhage or midline shift identified. Mild ventricular a nd sulcal prominence. Mild areas of low attenuation scattered throughout the white matter bilaterally . The calvarium is intact. The globes are intact and the visualized sinuses are clear. Cervical spine is visualized in its entirety from C1 through upper thoracic levels and demonstrates s table and satisfactory alignment without evidence of acute fracture or dislocation. Prevertebral sof t tissue appears within normal limits. The C1-C2 articulation is within normal limits on the coronal images. There is redemonstration of postsurgical change C4-C7 levels with anterior fusion plate and artificial disc material. Vertebral body heights and disc space heights are stable and satisfactory a fahad and below surgical levels. Spinal canal is grossly preserved. Review of axial images shows uncovertebral facet degenerative changes bilaterally at C3-C4 level. The re is partial visualization of at least small right-sided pleural effusion on current study. There is absent or hypoplastic left thyroid lobe redemonstrated. Mild calcified plaque right carotid bulb lev el is redemonstrated. IMPRESSION: 1. There is no acute fracture or dislocation evident in the cervical spine. 2. No acute intracranial hemorrhage or midline shift is seen.
[2022-09-06] MEDS ORDERED: HYDROcodone/APAP 5-325MG 1 EACH TAB PO STA (15:58)
[2022-09-06 16:31] VITALS: BP 166/86; PULSE 64; RESP 15
== END 2022-09-06 16:30 | disposition home or self-care (01) ==
LOC: EC 13:44
DX: S70.01XA Contusion of right hip, initial encounter (principal); J44.9 Chronic obstructive pulmonary disease, unspecified; K21.9 Gastro-esophageal reflux disease without esophagitis; I10 Essential (primary) hypertension; I25.2 Old myocardial infarction; M19.90 Unspecified osteoarthritis, unspecified site; M06.9 Rheumatoid arthritis, unspecified; F32.A Depression, unspecified; Z88.0 Allergy status to penicillin; Z88.2 Allergy status to sulfonamides; Z91.011 Allergy to milk products; Z91.018 Allergy to other foods; Z79.899 Other long term (current) drug therapy; W01.0XXA Fall on same level from slipping, tripping and stumbling without subsequent striking against object, initial encounter
CPT/HCPCS: 70450; 72125; 73502; 99285

== ENCOUNTER 2022-09-11 13:42 | Inpatient (IN) | payer MEDICARE, BC ==
--- NOTE | 2022-09-11 14:10 | ED ---
General Adult HPI - General Chief complaint: Chest Pain Stated complaint: abd pain Time Seen by Provider: 09/11/22 14:09 Source: patient, family, EMS Mode of arrival: EMS Limitations: no limitations - History of Present Illness Initial comments: Patient presents to the ED by ambulance for evaluation with her at bedside. Patient reports having epigastric abdominal pain/lower chest pain, nausea, dyspnea and generalized weakness for the past 3 days or so. Patient's reports that the patient has also had a decreased appetite. Patient ad mits to having bilateral lower extremity edema as well. Patient also admits to having a chronic cough. Patient denies trauma or injury, fever or chills, headache, focal neuro deficit, neck/arm/jaw/back pain, pleuritic pain, hemoptysis, palpitations, dizziness, syncope, vomiting, diaphoresis, diarrhea, bloody or melanotic stool, dysuria or urinary symptoms, decreased urine output, leg or calf pain, or any other symptoms or complaints. Patient states that she is fully vaccinated against Covid. Patient is on Xarelto anticoagulation therapy. - Related Data Home Medications Medication Instructions Recorded Confirmed Pantoprazole Sodium [Protonix] 40 mg PO BID 05/14/14 09/03/22 estradioL [Estrace] 2 mg PO DAILY 05/14/14 09/03/22 Glucosam/Chond/Hyalu/Cf Borate 1 tab PO DAILY 05/02/20 09/03/22 [Move Free Joint Health Tablet] nadoloL [Corgard] 40 mg PO DAILY 05/02/20 09/03/22 Rivaroxaban [Xarelto] 20 mg PO DAILY 12/02/21 09/03/22 Cholecalciferol [Vitamin D3 (25 25 mcg PO DAILY 06/16/22 09/03/22 Mcg = 1000 Iu)] Cyanocobalamin (Vitamin B-12) 1,000 mcg PO DAILY 06/16/22 09/03/22 [Vitamin B-12] Potassium Citrate 99 mg PO DAILY 06/16/22 09/03/22 DULoxetine HCL [Cymbalta] 30 mg PO DAILY 08/03/22 09/03/22 Leflunomide [Arava] 20 mg PO DAILY 08/03/22 09/03/22 Lysine 500 mg PO DAILY 08/03/22 09/03/22 Acetaminophen [Tylenol Arthritis] 1,300 mg PO Q12H PRN 08/10/22 09/03/22 Chlorthalidone 25 mg PO DAILY 08/10/22 09/03/22 Ipratropium Nebulized [Atrovent 0.5 mg INHALATION RT-BID 08/10/22 09/03/22 Nebulized 0.2 MG/ML] Ipratropium Nebulized [Atrovent 0.5 mg INHALATION RT-BID PRN 09/03/22 09/03/22 Nebulized 0.2 MG/ML] Previous Rx's Medication Instructions Recorded Pregabalin [Lyrica] 75 mg PO BID #14 cap 05/24/20 Losartan [Cozaar] 50 mg PO DAILY 90 Days #90 tab 08/10/22 Ondansetron Odt [Zofran Odt] 4 mg PO Q8HR PRN #10 tab 09/03/22 Loperamide [Imodium] 2 mg PO QID PRN #10 cap 09/05/22 Benzonatate [Tessalon Perles] 100 mg PO TID PRN #14 capsule 09/06/22 HYDROcodone/APAP 5-325MG [[place] 1 tab PO Q6HR PRN 3 Days #12 tab 09/06/22 5-325] Allergies Allergy/AdvReac Type Severity Reaction Status Date / Time cephalexin monohydrate Allergy Rash/Hives Verified 09/11/22 13:59 [From Keflex] diphenhydramine HCl Allergy SWELLING Verified 09/11/22 13:59 [From Benadryl] OF TONGUE, SOB enoxaparin [From Lovenox] Allergy Rash/Hives Verified 09/11/22 13:59 Penicillins Allergy SWELLING, Verified 09/11/22 13:59 HIVES aspirin AdvReac EXCESS Verified 09/11/22 13:59 BLEEDING garlic AdvReac Nausea Verified 09/11/22 13:59 milk AdvReac Abdominal Verified 09/11/22 13:59 Pain morphine AdvReac Vomiting Verified 09/11/22 13:59 sulfamethoxazole AdvReac Nausea & Verified 09/11/22 13:59 [From Bactrim] Vomiting trimethoprim [From Bactrim] AdvReac Nausea & Verified 09/11/22 13:59 Vomiting milk chocolate AdvReac Nausea Uncoded 09/11/22 13:59 Review of Systems ROS Statement: Those systems with pertinent positive or pertinent negative responses have been documented in the HPI. ROS Other: All systems not noted in ROS Statement are negative. Past Medical History Past Medical History: Atrial Flutter, Asthma, Cancer, COPD, GERD/Reflux, GI Bleed, Hypertension, Memory Impairment, Myocardial Infarction (RI), Osteoarthritis (OA), Rheumatoid Arthritis (RA) Additional Past Medical History / Comment(s): Chronic cough. Back pain, migra tahir. Occasional slight difficulty with swallowing. Hx gastic ulcer, H-Pylori, diverticulitis, hx melanoma on face X2. Hx kidney stones, "kidney function low". Last Myocardial Infarction Date:: 2012 History of Any Multi-Drug Resistant Organisms: None Reported Past Surgical History: Back Surgery, Cholecystectomy, Heart Catheterization, Hysterectomy, Joint Replacement, Orthopedic Surgery Additional Past Surgical History / Comment(s): RODS & CAGES IN BACK, RIGHT HIP REPLACEMENT, PARTIAL THYROIDECTOMY, BILATERAL KNEE REPLACEMENTS, NECK SURGERY WITH LIDIA AND CAGES, MELANOMA REMOVED FROM FACE X4, REPAIR OF HEMATOMA/FEMORAL ARTERY AFTER HEART CATHETERIZATION,rt foot bone spur removed Past Anesthesia/Blood Transfusion Reactions: Previous Problems w/ Anesthesia, Motion Sickness, Postoperative Nausea & Vomiting (PONV) Additional Past Anesthesia/Blood Transfusion Reaction / Comment(s): Hard to wake up. Past Psychological History: Depression Smoking Status: Never smoker Past Alcohol Use History: None Reported Past Drug Use History: None Reported - Past Family History Sister(s) Family Medical History: Cancer Brother(s) Family Medical History: Cancer Mother Family Medical History: Myocardial Infarction (RI) Additional Family Medical History / Comment(s): Mother of a RI at the age of 76yrs. Father History Unknown: Yes General Exam Limitations: no limitations General appearance: alert, in no apparent distress Head exam: Present: atraumatic, normocephalic Eye exam: Present: normal appearance, EOMI ENT exam: Present: mucous membranes moist Neck exam: Present: other (Trachea is in midline) Respiratory exam: Present: normal lung sounds bilaterally. Absent: respiratory distress, wheezes, rales, rhonchi, stridor, chest wall tenderness Cardiovascular Exam: Present: normal rhythm, irregular rhythm, normal heart sounds, other (Normal radial pulses bilaterally) GI/Abdominal exam: Present: soft. Absent: distended, tenderness, guarding Extremities exam: Present: other (2+ bilateral lower extremity pitting edema; negative Homans sign bilaterally). Absent: tenderness, calf tenderness Neurological exam: Present: alert, oriented X3. Absent: motor sensory deficit Psychiatric exam: Present: normal affect, normal mood Skin exam: Present: warm, dry, intact, normal color Course Vital Signs 09/11/22 09/11/22 13:53 17:08 Pulse Rate 87 73 Respiratory 18 18 Rate Blood Pressure 143/97 154/110 O2 Sat by Pulse 99 Oximetry - Reevaluation(s) Reevaluation #1: 09/11/22 17:09 Patient denies development of any new symptoms while in the ED. Patient remains alert and breathing comfortably. Patient and are aware the patient's test results, and they both agree with hospital admission at this time. states that he does not feel that he can take the patient home at this time due to her weakness. 09/11/22 17:59 Case, H&P, test results and ED management thus far were discussed with Dr. Ricks. He accepts hospital admission. He has no further recommendations at this time. EKG Findings - EKG Comments: EKG Findings:: ED physician interpretation: Atrial fibrillation, ventricular rate of 79 bpm, nonspecific intraventricular conduction delay, QRS duration of 136 ms, normal QT interval, normal axis Medical Decision Making - Medical Decision Making Patient has findings of mild CHF. Patient's troponin is within normal limits. Patient's vital signs are reassuring. Will admit the patient to the hospital for further evaluation/management, serial troponins and cardiac monitoring. Dr. Ricks has accepted hospital admission. - Lab Data Result diagrams: 09/11/22 15:02 09/11/22 15:02 Lab Results 09/11/22 09/11/22 09/11/22 Range/Units 15:02 15:02 15:02 WBC 3.7 L (3.8-10.6) k/uL RBC 3.53 L (3.80-5.40) m/uL Hgb 12.2 (11.4-16.0) gm/dL Hct 36.3 (34.0-46.0) % MCV 102.7 H (80.0-100.0) fL MCH 34.4 (25.0-35.0) pg MCHC 33.5 (31.0-37.0) g/dL RDW 15.6 H (11.5-15.5) % Plt Count 183 (150-450) k/uL MPV 9.4 Neutrophils % 59 % Lymphocytes % 23 % Monocytes % 12 % Eosinophils % 4 % Basophils % 1 % Neutrophils # 2.2 (1.3-7.7) k/uL Lymphocytes # 0.8 L (1.0-4.8) k/uL Monocytes # 0.4 (0-1.0) k/uL Eosinophils # 0.1 (0-0.7) k/uL Basophils # 0.0 (0-0.2) k/uL Hypochromasia Moderate Poikilocytosis Slight Macrocytosis Moderate PT 15.5 H (9.0-12.0) sec INR 1.5 H (<1.2) APTT 37.6 H (22.0-30.0) sec Sodium 134 L (137-145) mmol/L Potassium 4.5 (3.5-5.1) mmol/L Chloride 100 (98-107) mmol/L Carbon Dioxide 27 (22-30) mmol/L Anion Gap 7 mmol/L BUN 12 (7-17) mg/dL Creatinine 0.42 L (0.52-1.04) mg/dL Est GFR (CKD-EPI)AfAm >90 (>60 ml/min/1.73 sqM) Est GFR (CKD-EPI)NonAf >90 (>60 ml/min/1.73 sqM) Glucose 100 H (74-99) mg/dL Calcium 8.7 (8.4-10.2) mg/dL Magnesium 1.6 (1.6-2.3) mg/dL Total Bilirubin 2.6 H (0.2-1.3) mg/dL AST 60 H (14-36) U/L ALT 43 H (4-34) U/L Alkaline Phosphatase 72 (38-126) U/L Troponin I (0.000-0.034) ng/mL NT-Pro-B Natriuret Pep pg/mL Total Protein 6.5 (6.3-8.2) g/dL Albumin 3.8 (3.5-5.0) g/dL Lipase 238 (23-300) U/L Influenza Type A (PCR) (Not Detectd) Influenza Type B (PCR) (Not Detectd) RSV (PCR) (Not Detectd) SARS-CoV-2 (PCR) (Not Detectd) 09/11/22 09/11/22 09/11/22 Range/Units 15:02 15:02 15:02 WBC (3.8-10.6) k/uL RBC (3.80-5.40) m/uL Hgb (11.4-16.0) gm/dL Hct (34.0-46.0) % MCV (80.0-100.0) fL MCH (25.0-35.0) pg MCHC (31.0-37.0) g/dL RDW (11.5-15.5) % Plt Count (150-450) k/uL MPV Neutrophils % % Lymphocytes % % Monocytes % % Eosinophils % % Basophils % % Neutrophils # (1.3-7.7) k/uL Lymphocytes # (1.0-4.8) k/uL Monocytes # (0-1.0) k/uL Eosinophils # (0-0.7) k/uL Basophils # (0-0.2) k/uL Hypochromasia Poikilocytosis Macrocytosis PT (9.0-12.0) sec INR (<1.2) APTT (22.0-30.0) sec Sodium (137-145) mmol/L Potassium (3.5-5.1) mmol/L Chloride (98-107) mmol/L Carbon Dioxide (22-30) mmol/L Anion Gap mmol/L BUN (7-17) mg/dL Creatinine (0.52-1.04) mg/dL Est GFR (CKD-EPI)AfAm (>60 ml/min/1.73 sqM) Est GFR (CKD-EPI)NonAf (>60 ml/min/1.73 sqM) Glucose (74-99) mg/dL Calcium (8.4-10.2) mg/dL Magnesium (1.6-2.3) mg/dL Total Bilirubin (0.2-1.3) mg/dL AST (14-36) U/L ALT (4-34) U/L Alkaline Phosphatase (38-126) U/L Troponin I 0.022 (0.000-0.034) ng/mL NT-Pro-B Natriuret Pep 8790 pg/mL Total Protein (6.3-8.2) g/dL Albumin (3.5-5.0) g/dL Lipase (23-300) U/L Influenza Type A (PCR) Not Detected (Not Detectd) Influenza Type B (PCR) Not Detected (Not Detectd) RSV (PCR) Not Detected (Not Detectd) SARS-CoV-2 (PCR) Not Detected (Not Detectd) - Radiology Data Chest x-ray: Compared to old exam there is increased pleural fluid and likely some minimal heart failure. Disposition Clinical Impression: Chest pain, Epigastric pain, CHF (congestive heart failure) Disposition: ADMITTED IP TO THIS [facility] Condition: Stable Is patient prescribed a controlled substance at d/c from ED?: No Referrals: Dex Mcneal MD [Primary Care Provider] - 1-2 days Time of Disposition: 18:00
[2022-09-11 15:33] LABS: ALT 43 U/L (4-34); AST 60 U/L (14-36); African American GFR (CKD) >90 (>60 ml/min/1.73 sqM); Albumin 3.8 g/dL (3.5-5.0); Alkaline Phosphatase 72 U/L (38-126); Anion Gap 7 mmol/L; Blood Urea Nitrogen 12 mg/dL (7-17); Calcium 8.7 mg/dL (8.4-10.2); Carbon Dioxide 27 mmol/L (22-30); Chloride 100 mmol/L (98-107); Glucose 100 mg/dL (74-99); Lipase 238 U/L (23-300); Magnesium 1.6 mg/dL (1.6-2.3); Non-African American GFR(CKD) >90 (>60 ml/min/1.73 sqM); Sodium 134 mmol/L (137-145); Total Bilirubin 2.6 mg/dL (0.2-1.3); Total Protein 6.5 g/dL (6.3-8.2)
[2022-09-11 15:37] LABS: Basophils % (A) 1 %; Eosinophils # (A) 0.1 k/uL (0-0.7); Eosinophils % (A) 4 %; HCT 36.3 % (34.0-46.0); HGB 12.2 gm/dL (11.4-16.0); Hypochromasia Moderate; Lymphocytes # (A) 0.8 k/uL (1.0-4.8); Lymphocytes % (A) 23 %; MCH 34.4 pg (25.0-35.0); MCHC 33.5 g/dL (31.0-37.0); MCV 102.7 fL (80.0-100.0); Macrocytosis Moderate; Mean Platelet Volume 9.4; Monocytes # (A) 0.4 k/uL (0-1.0); Monocytes % (A) 12 %; Neutrophils # (A) 2.2 k/uL (1.3-7.7); Neutrophils % (A) 59 %; Platelet Count 183 k/uL (150-450); Poikilocytosis Slight; RBC 3.53 m/uL (3.80-5.40); RDW 15.6 % (11.5-15.5); WBC 3.7 k/uL (3.8-10.6)
[2022-09-11 15:44] LABS: Potassium 4.5 mmol/L (3.5-5.1)
[2022-09-11 15:51] LABS: INR 1.5 (<1.2); Partial Thromboplastin Time 37.6 sec (22.0-30.0); Prothrombin Time 15.5 sec (9.0-12.0)
--- NOTE | 2022-09-11 16:33 | XR ---
EXAMINATION TYPE: XR chest 1V portable DATE OF EXAM: 09/11/2022 COMPARISON: 08/09/2022 HISTORY: Chest pain TECHNIQUE: Single view FINDINGS: There is mild pulmonary congestion. There is blunting of the costophrenic angles. There are chest leads. There are no hilar masses. IMPRESSION: Compared to old exam there is increased pleural fluid and likely some minimal heart failu re.
[2022-09-11] MEDS ORDERED: ASPIRIN 81 MG PO STA (17:00)
[2022-09-11] MEDS ORDERED: FUROSEMIDE 10 MG/ML 4 ML VIAL IV STA (17:01)
[2022-09-11] MEDS ORDERED: NALOXONE 0.4 MG/ML 1 ML VIAL IV PRN (17:56)
[2022-09-11] MEDS: HYDROcodone/APAP 5-325MG 1 EACH TAB PO PRN (22:16)
--- NOTE | 2022-09-12 00:47 | P.HPIM ---
History of Present Illness H&P Date: 09/11/22 Exit PMH including systolic CHF, A. fib on Xarelto, rheumatoid arthritis, peptic ulcer disease who presents to the emergency room with complaints of diffuse abdominal discomfort as well as lower extremity edema. Patient reports that she has been experiencing a vague diffuse abdominal aching-like discomfort over the past 3-4 days. States that the pain is constant, 3 out of 10, with no a lleviating or exacerbating features. She denied any changes in her stool including diarrhea, or constipation. Also denied blood in stools or black tarry stools. She also states that over the past 1 week, she has been experiencing gradually worsening lower extremity edema with dyspnea on exertion. Reports compliance with her Lasix but states that she was advised to drink plenty of fluids by her PCP and emergency response technician. Denied orthopnea or PND. Chest x-ray in the emergency room is read as minimal heart failure with EKG showing A. fib with left back is a deviation and intraventricular conduction delay at 79 bpm. Laboratory evaluation was remarkable for troponin 0.0-2, proBNP 2790. Review of systems: Pertinent positives and negatives as discussed in HPI, a complete review of s ystems was performed and all other systems are negative. Physical examination: General: non toxic, no distress, appears at stated age, normal weight Derm: no unusual rashes/lesions, warm Head: atraumatic, normocephalic, symmetric Eyes: EOMI, no lid lag, anicteric sclera, pupils equal round reactive to light ENT: Nose and ears atraumatic Neck: No cervical lymphadenopathy, trachea midline, supple Mouth: no lip lesion, mucus membranes moist Cardiovascular: S1S2 reg, no murmur, positive dorsalis pedis pulse bilateral, 2+ bilateral lower extremity pitting edema Lungs: CTA bilateral, no rhonchi, no rales, no accessory muscle use Abdominal: soft, nontender to palpation, no guarding Ext: muscle strength 4 out of 5 in all 4 extremities grossly, no gross muscle atrophy, no contractures, Neuro: CN II-XI grossly intact, no gross focal neuro deficits Psych: Alert, oriented, appropriate affect Assessment/plan Acute CHF exacerbation -IV Lasix -Monitor BMP -Cardiology consulted -Intake output -Cardiac monitoring Abdominal pain, unclear etiology -Obtain KUB X-ray Chronic conditions: Afib, RA -C/w Home meds DVT prophylaxis -Xarelto The patient is admitted with an anticipated less than 2 midnight stay for evaluation of CHF exacerbation CODE STATUS: Full Code Discussed with: Patient Anticipated discharge date: in am Anticipated discharge place: Home Past Medical History Past Medical History: Atrial Flutter, Asthma, Cancer, COPD, GERD/Reflux, GI Bleed, Hypertension, Memory Impairment, Myocardial Infarction (SC), Osteoarthritis (OA), Rheumatoid Arthritis (RA) Additional Past Medical History / Comment(s): Chronic cough. Back pain, migraines. Occasional slight difficulty with swallowing. 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 Hx kidney stones, "kidney function low". Last Myocardial Infarction Date:: 2012 History of Any Multi-Drug Resistant Organisms: None Reported Past Surgical History: Back Surgery, Cholecystectomy, Heart Catheterization, Hysterectomy, Joint Replacement, Orthopedic Surgery Additional Past Surgical History / Comment(s): RODS & CAGES IN BACK, RIGHT HIP REPLACEMENT, PARTIAL THYROIDECTOMY, BILATERAL KNEE REPLACEMENTS, NECK SURGERY WITH LIDIA AND CAGES, MELANOMA REMOVED FROM FACE X4, REPAIR OF HEMATOMA/FEMORAL ARTERY AFTER HEART CATHETERIZATION,rt foot bone spur removed Past Anesthesia/Blood Transfusion Reactions: Previous Problems w/ Anesthesia, Motion Sickness, Postoperative Nausea & Vomiting (PONV) Additional Past Anesthesia/Blood Transfusion Reaction / Comment(s): Hard to wake up. Past Psychological History: Depression Additional Psychological History / Comment(s): . Smoking Status: Never smoker Past Alcohol Use History: None Reported Past Drug Use History: None Reported - Past Family History Sister(s) Family Medical History: Cancer Brother(s) Family Medical History: Cancer Mother Family Medical History: Myocardial Infarction (SC) Additional Family Medical History / Comment(s): Mother of a [place] at the age of 76yrs. Father History Unknown: Yes Family Medical History: Chest Pain / Angina Medications and Allergies Home Medications Medication Instructions Recorded Confirmed Type Pantoprazole Sodium [Protonix] 40 mg PO BID 05/14/14 09/11/22 History estradioL [Estrace] 2 mg PO DAILY 05/14/14 09/11/22 History Glucosam/Chond/Hyalu/Cf Borate 1 tab PO DAILY 05/02/20 09/11/22 History [Move Free Joint Health Tablet] nadoloL [Corgard] 40 mg PO DAILY 05/02/20 09/11/22 History Pregabalin [Lyrica] 75 mg PO BID #14 cap 05/24/20 09/11/22 Rx Rivaroxaban [Xarelto] 20 mg PO DAILY 12/02/21 09/11/22 History Cholecalciferol [Vitamin D3 (25 25 mcg PO DAILY 06/16/22 09/11/22 History Mcg = 1000 Iu)] Cyanocobalamin (Vitamin B-12) 1,000 mcg PO DAILY 06/16/22 09/11/22 History [Vitamin B-12] Potassium Citrate 99 mg PO DAILY 06/16/22 09/11/22 History DULoxetine HCL [Cymbalta] 30 mg PO DAILY 08/03/22 09/11/22 History Leflunomide [Arava] 20 mg PO DAILY 08/03/22 09/11/22 History Lysine 500 mg PO DAILY 08/03/22 09/11/22 History Acetaminophen [Tylenol Arthritis] 1,300 mg PO Q12H PRN 08/10/22 09/11/22 History Chlorthalidone 25 mg PO DAILY 08/10/22 09/11/22 History Ipratropium Nebulized [Atrovent 0.5 mg INHALATION RT-BID 08/10/22 09/11/22 History Nebulized 0.2 MG/ML] Losartan [Cozaar] 50 mg PO DAILY 90 Days #90 tab 08/10/22 09/11/22 Rx Ipratropium Nebulized [Atrovent 0.5 mg INHALATION RT-BID PRN 09/03/22 09/11/22 History Nebulized 0.2 MG/ML] Ondansetron Odt [Zofran Odt] 4 mg PO Q8HR PRN #10 tab 09/03/22 09/11/22 Rx Loperamide [Imodium] 2 mg PO QID PRN #10 cap 09/05/22 09/11/22 Rx Benzonatate [Tessalon Perles] 100 mg PO TID PRN #14 capsule 09/06/22 09/11/22 Rx HYDROcodone/APAP 5-325MG [[place] 1 tab PO Q6HR PRN 3 Days #12 tab 09/06/22 09/11/22 Rx 5-325] Allergies Allergy/AdvReac Type Severity Reaction Status Date / Time cephalexin monohydrate Allergy Rash/Hives Verified 09/11/22 19:16 [From Keflex] diphenhydramine HCl Allergy SWELLING Verified 09/11/22 19:16 [From Benadryl] OF TONGUE, SOB enoxaparin [From Lovenox] Allergy Rash/Hives Verified 09/11/22 19:16 Penicillins Allergy SWELLING, Verified 09/11/22 19:16 HIVES aspirin AdvReac EXCESS Verified 09/11/22 19:16 BLEEDING garlic AdvReac Nausea Verified 09/11/22 19:16 milk AdvReac Abdominal Verified 09/11/22 19:16 Pain morphine AdvReac Vomiting Verified 09/11/22 19:16 sulfamethoxazole AdvReac Nausea & Verified 09/11/22 19:16 [From Bactrim] Vomiting trimethoprim [From Bactrim] AdvReac Nausea & Verified 09/11/22 19:16 Vomiting milk chocolate AdvReac Nausea Uncoded 09/11/22 19:16 Physical Exam Vitals: Vital Signs Temp Pulse Resp BP Pulse Ox 09/11/22 20:18 140/104 09/11/22 20:01 159/101 09/11/22 19:41 98.3 F 79 16 143/116 97 09/11/22 17:08 73 18 154/110 09/11/22 13:53 87 18 143/97 99 Intake and Output 09/11/22 09/11/22 09/11/22 06:59 14:59 22:59 Other: Weight 67.132 kg 67.132 kg Results CBC & Chem 7: 09/11/22 15:02 09/11/22 15:02 Labs: Abnormal Lab Results - Last 24 Hours (Table) 09/11/22 09/11/22 09/11/22 Range/Units 15:02 15:02 15:02 WBC 3.7 L (3.8-10.6) k/uL RBC 3.53 L (3.80-5.40) m/uL MCV 102.7 H (80.0-100.0) fL RDW 15.6 H (11.5-15.5) % Lymphocytes # 0.8 L (1.0-4.8) k/uL PT 15.5 H (9.0-12.0) sec INR 1.5 H (<1.2) APTT 37.6 H (22.0-30.0) sec Sodium 134 L (137-145) mmol/L Creatinine 0.42 L (0.52-1.04) mg/dL Glucose 100 H (74-99) mg/dL Total Bilirubin 2.6 H (0.2-1.3) mg/dL AST 60 H (14-36) U/L ALT 43 H (4-34) U/L
[2022-09-12] MEDS: IPRATROPIUM-ALBUTEROL 3 ML NEB INHALATION PRN ×3 (02:17→22:05)
[2022-09-12] MEDS ORDERED: NON FORMULARY DRUG (Acetaminophen [Tylenol Arthritis] 650 MG Tablet) PO PRN (03:19)
--- NOTE | 2022-09-12 07:31 | XR ---
EXAMINATION TYPE: XR KUB portable DATE OF EXAM: 09/12/2022 CLINICAL DATA: 77 year-old female abdominal, [facility] COMPARISON: 08/19/2022 FINDINGS: Lung bases are excluded. Partially visualized right vertebroplasty. Posterior and interbody lumbosacral fusion hardware noted. Suggestion of 2 right-sided urinary tract calculi, probably 1.3 x 0.5 cm located in the right kidney. A 7 x 3 mm calcification right side of the upper pelvis may be w ithin the right ureter. Nonobstructive bowel gas pattern. IMPRESSION: There may be 2 right-sided urinary tract calculi. A 1.3 cm stone in the right kidney. A 7 mm stone ma y be in the middle third right ureter. Clinically correlate.
[2022-09-12] MEDS: FUROSEMIDE 10 MG/ML 4 ML VIAL IV SCH ×2 (07:54→20:20)
[2022-09-12] MEDS: RIVAROXABAN 20 MG TAB PO SCH (07:54)
[2022-09-12] MEDS: CHLORTHALIDONE 25 MG TAB PO SCH (07:54)
[2022-09-12] MEDS: PANTOPRAZOLE 40 MG TABLET PO SCH ×2 (07:54→20:20)
[2022-09-12] MEDS: PREGABALIN 75 MG CAP PO SCH ×2 (07:55→20:20)
[2022-09-12] MEDS: DULoxetine HCL 30 MG CAPSULE.DR PO SCH (07:55)
[2022-09-12] MEDS: HYDROcodone/APAP 5-325MG 1 EACH TAB PO PRN (07:55)
[2022-09-12] MEDS: LEFLUNOMIDE 20 MG TAB PO SCH (07:56)
--- NOTE | 2022-09-12 08:56 | US ---
EXAMINATION TYPE: US abdomen limited DATE OF EXAM: 09/12/2022 COMPARISON: Correlation CT 09/03/2022 and ultrasound 10/06/2019 CLINICAL HISTORY: 77-year-old female abdominal pain and elevated bilirubin. Cholecystectomy 3 years a go but pain ever since, elevated bili TECHNIQUE: Multiple sonographic images of the right upper quadrant are obtained. FINDINGS: EXAM MEASUREMENTS: Liver Length: 16.1 cm Gallbladder: Surgically absent CBD: 0.5 cm (measured at 7 mm in 2019) Right Kidney: 9.3 x 4.6 x 4.6 cm Pancreas: wnl Liver: Large body habitus. We note a hypodense appearance to the liver on the patient's recent CT. So mewhat echogenic periportal fat versus technical artifact. This may reflect starry roseanne sign. No signi ficant increase in echogenicity to suggest significant fatty infiltration by ultrasound. Gallbladder: Surgically absent Evidence for sonographic Dumont's sign: no CBD: wnl Right Kidney: No hydronephrosis. There is a benign cortical cyst measuring 2.3 x 2.6 x 2.7cm IMPRESSION: 1. Questionable starry roseanne sign of the liver which can be seen with hepatitis. The appearance of the liver on 09/03/2022 CT was low density which can be seen with edema/hepatitis and hepatic steatosis. Hepatic steatosis is not apparent by the current ultrasound. 2. Status post cholecystectomy. Bile duct normal caliber at 5 mm.
[2022-09-12] MEDS ORDERED: LOSARTAN 50 MG TAB PO SCH (09:00)
[2022-09-12] MEDS: ONDANSETRON 4 MG/2 ML VIAL IVP PRN (09:35)
--- NOTE | 2022-09-12 09:37 | CT ---
EXAMINATION TYPE: CT abdomen pelvis wo con DATE OF EXAM: 09/12/2022 COMPARISON: 09/03/2022 and 06/01/2022 HISTORY: 77-year-old female Abdominal pain, possible renal stones on radiograph CT DLP: 349.7 mGycm. Automated exposure control for dose reduction was used. TECHNIQUE: Contiguous axial scanning of the abdomen and pelvis without IV contrast. Coronal and sagit gerald reconstructions performed. FINDINGS: Heart is mildly enlarged without pericardial effusion. There are ongoing small bilateral pleural effu sions with some mild patchy lower lung atelectasis. Ectatic lower descending thoracic aorta at 2.8 cm. Liver is normal size 14.4 cm. Some focal fat along the anterior falciform ligament. No significant fa tty infiltration appreciated. Cholecystectomy clips. By noncontrast CT, no evident biliary ductal dilatation. Adrenal glands, spleen and mildly atrophic pancreas show no gross abnormality. Bilateral renal cortical cyst are redemonstrated measuring 2.7 cm on the right and 1.7 cm on the left . New fullness of the left renal collecting system without any obstructing calculus seen. 4 mm nonobstr uctive left renal calculus. There are 3 nonobstructing stones in the right kidney, largest measuring 1.2 cm. Mild right-sided hyd ronephrosis and right-sided hydroureter is noted, new from 09/03/2022. The upper pelvis calcification s on the right question on radiograph corresponds to a phlebolith of the gonadal vein. No ureteral st one is seen. No dilated small bowel, free fluid, or free air. No mesenteric or retroperitoneal lymphadenopathy. Appendix not discretely visualized. No secondary findings of acute appendicitis in the right lower qu adrant. There is mild overall stool burden. Mid to distal sigmoid colonic diverticulosis. No pericolonic infl ammatory change. Stranding along the anterior pelvic wall adjacent to the bladder. Prominent distention of the urinary bladder now. There is presacral edema. Correlate for third spacing. Uterus surgically absent. Visualization of bot h ovaries with a 3.0 cm cyst of the left ovary versus 2.9 cm, previously, not significantly changed. It measures 3.1 cm on 06/11/2022. On the patient's 07/08/2022 ultrasound, there is a cyst with thin int ernal septation. Annual ultrasound surveillance is recommended. 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 Pelvic floor relaxation. Bones: Right hip total arthroplasty. Metal artifact limits visualization of pelvic structures. Modera te degenerative changes left hip. Moderate to advanced degenerative disc disease lower thoracic spine . Previous posterior and interbody lumbar fusion from L3 through S1 levels. IMPRESSION: 1. Bilateral nephrolithiasis measuring up to 1.2 cm on the right and 4 mm on the left. There is mild right-sided hydronephrosis and mild fullness of the left renal collecting system as well, new from 11/03/2021. However, no obstructing stone is seen. The questioned calcification in the upper right pel vis on patient's radiograph performed today corresponds to a gonadal vein phlebolith. The collecting system fullness may be transient, secondary to prominent bladder distention. 2. Some strandy edema in the anterior pelvis adjacent to the bladder. Correlate to exclude cystitis. 3. Underlying small bilateral pleural effusions. 4. Mid to distal sigmoid diverticulosis and pelvic floor relaxation. 5. 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 Annual ultrasound surveil steven is recommended and can be compared to the patient's 07/08/2022 pelvic ultrasound.
[2022-09-12 09:51] LABS: Basophils # (A) 0.08 X 10*3/uL (0.00-0.10); Basophils % (A) 1.9 %; Eosinophils # (A) 0.23 X 10*3/uL (0.04-0.35); Eosinophils % (A) 5.5 %; HGB 11.2 g/dL (12.0-15.0); Immature Grans, Automated 0.5 %; Lymphocytes # (A) 1.21 X 10*3/uL (0.90-5.00); Lymphocytes % (A) 28.7 %; MCH 32.8 pg (27.0-32.0); MCHC 32.9 g/dL (32.0-37.0); MCV 99.7 fL (80.0-97.0); Mean Platelet Volume 10.9 fL (9.5-12.2); Monocytes # (A) 0.69 X 10*3/uL (0.20-1.00); Monocytes % (A) 16.4 %; NRBC Per 100 WBC 0 /100 WBCS (0.0-0.0); Neutrophils # (A) 1.99 X 10*3/uL (1.80-7.70); Platelet Count 170 X 10*3/uL (140-440); RBC 3.41 X 10*6/uL (4.10-5.20); RDW 15.6 % (11.5-14.5); WBC 4.22 X 10*3/uL (4.50-10.00)
[2022-09-12 10:31] LABS: African American GFR (CKD) 99.6 (60.0-200.0); Albumin 3.5 g/dL (3.8-4.9); Albumin/Globulin Ratio 1.64 (1.60-3.17); Anion Gap 13.4 mmol/L (10.00-18.00); BUN/Creat Ratio 17.42 Ratio (12.00-20.00); Blood Urea Nitrogen 11.2 mg/dL (9.0-27.0); Calcium 8.8 mg/dL (8.7-10.3); Carbon Dioxide 33.2 mmol/L (20.0-27.5); Globulin 2.2 g/dL (1.6-3.3); Non-African American GFR(CKD) 85.9 (60.0-200.0); Potassium 2.6 mmol/L (3.5-5.5); Total Bilirubin 1.6 mg/dL (0.30-1.20); Total Protein 5.7 g/dL (6.2-8.2)
[2022-09-12] MEDS ORDERED: Potassium Replacement Protocol 1 EACH MISC MISCELLANE PRN (11:25)
[2022-09-12] MEDS: POTASSIUM CHLORIDE ER 20 MEQ TAB.ER PO SCH ×3 (11:49→15:20)
--- NOTE | 2022-09-12 11:59 | P.PN ---
Subjective Progress Note Date: 09/12/22 Patient recently admitted for abdominal pain and diarrhea about one week ago. Once her diarrhea improved she was deemed stable for discharge. Patient states that she was told by doctors to drink plenty of water. Patient states that since discharge she is not had any more diarrhea. Patient returns again due to chest pain and diffuse abdominal pain. In the ED patient found to have mild volume overload on chest x-ray and also elevated bilirubin. She was then referred for admission. Patient this morning states that after she was given IV Zofran her nausea as well as abdominal pain improved. She is currently denying any chest pain. Objective - Vital Signs Vital signs: Vital Signs Temp 98.1 F 09/12/22 07:00 Pulse 77 09/12/22 07:00 Resp 18 09/12/22 07:00 BP 152/85 09/12/22 07:00 Pulse Ox 100 09/12/22 02:20 FiO2 Intake & Output 09/11/22 09/12/22 09/12/22 18:59 06:59 18:59 Output Total 1100 1200 Balance -1100 -1200 Weight 67.132 kg 67.132 kg Output: Urine 1100 1200 Other: Voiding Method External Catheter External Catheter # Voids 1 # Bowel Movements 1 - Exam General examination - Alert and Oriented 3 in NAD Heart - + S1S2 no murmurs Lungs - Clear to auscultation Abdomen soft NT ND +ve BS Extremities - No edema REVENUE COORDINATOR - Moving all 4 extremities spontaneously Psych - Calm and cooperative - Labs CBC & Chem 7: 09/12/22 04:53 09/12/22 04:58 Labs: Abnormal Lab Results - Last 24 Hours (Table) 09/11/22 09/11/22 09/11/22 Range/Units 15:02 15:02 15:02 WBC 3.7 L (3.8-10.6) k/uL RBC 3.53 L (3.80-5.40) m/uL Hgb (12.0-15.0) g/dL Hct (37.2-46.3) % MCV 102.7 H (80.0-100.0) fL MCH (27.0-32.0) pg RDW 15.6 H (11.5-15.5) % Lymphocytes # 0.8 L (1.0-4.8) k/uL PT 15.5 H (9.0-12.0) sec INR 1.5 H (<1.2) APTT 37.6 H (22.0-30.0) sec Sodium 134 L (137-145) mmol/L Potassium (3.5-5.5) mmol/L Chloride (96-109) mmol/L Carbon Dioxide (20.0-27.5) mmol/L Creatinine 0.42 L (0.52-1.04) mg/dL Glucose 100 H (74-99) mg/dL Total Bilirubin 2.6 H (0.2-1.3) mg/dL AST 60 H (14-36) U/L ALT 43 H (4-34) U/L Total Protein (6.2-8.2) g/dL Albumin (3.8-4.9) g/dL 09/12/22 09/12/22 Range/Units 04:53 04:58 WBC 4.22 L (3.8-10.6) k/uL RBC 3.41 L (3.80-5.40) m/uL Hgb 11.2 L (12.0-15.0) g/dL Hct 34.0 L (37.2-46.3) % MCV 99.7 H (80.0-100.0) fL MCH 32.8 H (27.0-32.0) pg RDW 15.6 H (11.5-15.5) % Lymphocytes # (1.0-4.8) k/uL PT (9.0-12.0) sec INR (<1.2) APTT (22.0-30.0) sec Sodium (137-145) mmol/L Potassium 2.6 L* (3.5-5.5) mmol/L Chloride 94 L (96-109) mmol/L Carbon Dioxide 33.2 H (20.0-27.5) mmol/L Creatinine (0.52-1.04) mg/dL Glucose (74-99) mg/dL Total Bilirubin 1.60 H (0.2-1.3) mg/dL AST (14-36) U/L ALT (4-34) U/L Total Protein 5.7 L (6.2-8.2) g/dL Albumin 3.5 L (3.8-4.9) g/dL Assessment and Plan Assessment: Acute CHF exacerbation -IV Lasix -Monitor BMP -Cardiology consulted -Intake output -Cardiac monitoring -I told patient that if she is not having any diarrhea she should restrict her fluid intake. -Patient currently satting well on room air Hypokalemia secondary to diuretics -Replete as needed Chest pain Troponins are negative so ACS ruled out Cardiology ordered echocardiogram Abdominal pain could be passing of renal stone -CT abdomen and pelvis this morning showed mild left-sided hydronephrosis and bilateral renal calculi. No obstructing renal stone was seen. -Patient had recent EGD that was unremarkable -This morning patient states that her abdominal pain is much better after she received some Zofran Mildly elevated LFTs and bilirubin Suspected due to hepatic congestion Bilirubin and LFTs have improved Right upper quad ultrasound shows findings consistent with liver hepatitis. Common bile duct within normal limits Chronic conditions: Afib, RA -C/w Home meds Ovarian cyst -Accidental finding on computed tomography scan. Patient will need outpatient follow-up DVT prophylaxis -Xarelto The patient is admitted with an anticipated less than 2 midnight stay for evaluation of CHF exacerbation CODE STATUS: Full Code Discussed with: Patient Anticipated discharge date: If echocardiogram unremarkable and cleared by cardiology she can be discharged Anticipated discharge place: Home
--- NOTE | 2022-09-12 15:08 | CONS ---
CONSULTATION HISTORY OF PRESENT ILLNESS: A 77-year-old lady with history of permanent atrial fibrillation, rheumatoid arthritis, peptic ulcer disease, and systolic heart failure, comes to hospital primarily complaining of vague, diffuse abdominal discomfort of 3 to 4 days duration and she also complains of progressively worsening lower extremity edema with dyspnea on exertion. On her presentation, the BNP is elevated. EKG shows atrial fibrillation with nonspecific ST-T wave changes. The patient's clinical presentation is consistent with acute exacerbation of chronic congestive heart failure, probably systolic. We will treat the patient with intravenous diuretics and adjust her therapies as needed based on her response. I will obtain a 2D echo to document her LV function. PAST MEDICAL HISTORY: Significant for permanent atrial fibrillation and chronic congestive heart failure. MEDICATIONS: Include: 1. Protonix. 2. Estrace. 3. Corgard. 4. Lyrica. 5. Xarelto 20 mg daily. 6. Vitamin D. 7. Cymbalta. 8. Chlorthalidone. 9. Losartan 50 mg daily. 10.Atrovent. 11.Imodium. 12.Hydrocodone. ALLERGIES: As documented in the chart. FAMILY HISTORY: Negative for premature coronary artery disease. SOCIAL HISTORY: Negative for current smoking, EtOH abuse, or drug abuse. REVIEW OF SYSTEMS: HEENT: Unremarkable. CARDIAC: As described above. RESPIRATORY: As described above. GI: Negative. GENITOURINARY: Negative. ALLERGY/IMMUNOLOGY: Negative. SKIN: Negative. MUSCULOSKELETAL: Significant for arthritis. PSYCHOSOCIAL: Negative. DERM: Negative. CONSTITUTIONAL: Negative. Rest of the system review is not relevant. PHYSICAL EXAMINATION: GENERAL: Comfortable at rest. VITAL SIGNS: Stable. NECK: There is jugular venous distention. Carotid upstroke is diminished. There is no bruit. CHEST: Reveals good air entry bilaterally. I do not hear any crackles or rhonchi. HEART: Reveals first and second heart sounds, irregular rhythm, and a systolic murmur at the apex. ABDOMEN: Soft. EXTREMITIES: Reveal moderate to severe bilateral pitting edema. LABS: Show that the hemoglobin is 11.2. Potassium is low at 2.6, creatinine is 0.6. Troponins are negative. BNP is elevated at 8790. EKG shows atrial fibrillation with left bundle-branch block. ASSESSMENT: 1. Acute exacerbation of chronic systolic heart failure. 2. Permanent atrial fibrillation. PLAN: I will treat the patient with intravenous diuretics, resume her home medications including Cozaar, Xarelto, K-Dur, and Corgard. I will obtain a 2D echo on her tomorrow to evaluate her LV function. MARY / JOSEF: [id number] /
[2022-09-12] MEDS: ACETAMINOPHEN TAB 325 MG TAB PO PRN (22:54)
[2022-09-13] MEDS: IPRATROPIUM-ALBUTEROL 3 ML NEB INHALATION PRN ×2 (08:13→20:31)
[2022-09-13] MEDS ORDERED: LOSARTAN 25 MG TAB PO SCH (09:00)
[2022-09-13] MEDS: CHLORTHALIDONE 25 MG TAB PO SCH (09:23)
[2022-09-13] MEDS: RIVAROXABAN 20 MG TAB PO SCH (09:23)
[2022-09-13] MEDS: DULoxetine HCL 30 MG CAPSULE.DR PO SCH (09:23)
[2022-09-13] MEDS: PANTOPRAZOLE 40 MG TABLET PO SCH ×2 (09:24→20:44)
[2022-09-13] MEDS: PREGABALIN 75 MG CAP PO SCH ×2 (09:24→20:44)
[2022-09-13] MEDS: LEFLUNOMIDE 20 MG TAB PO SCH (09:25)
[2022-09-13 10:40] LABS: Basophils # (A) 0.09 X 10*3/uL (0.00-0.10); Basophils % (A) 2.1 %; Eosinophils # (A) 0.29 X 10*3/uL (0.04-0.35); Eosinophils % (A) 6.8 %; HCT 39.4 % (37.2-46.3); HGB 13.1 g/dL (12.0-15.0); Immature Grans, Automated 0.2 %; Lymphocytes # (A) 0.53 X 10*3/uL (0.90-5.00); Lymphocytes % (A) 12.4 %; MCH 32.4 pg (27.0-32.0); MCHC 33.2 g/dL (32.0-37.0); MCV 97.5 fL (80.0-97.0); NRBC Per 100 WBC 0 /100 WBCS (0.0-0.0); Neutrophils # (A) 2.17 X 10*3/uL (1.80-7.70); Neutrophils % (A) 50.5 %; Platelet Count 180 X 10*3/uL (140-440); RBC 4.04 X 10*6/uL (4.10-5.20); RDW 15.6 % (11.5-14.5); WBC 4.29 X 10*3/uL (4.50-10.00)
--- NOTE | 2022-09-13 10:46 | P.PN ---
Subjective HISTORY OF PRESENT ILLNESS: This is a 77 year old female who sees Dr. Castorena in the office. Patient is admitted to the hospital secondary to CHF. Patient examined this morning at the bedside. Patient reports having a headache this morning. She also reports feeling dizzy when ambulating. She complains of feeling tired and having generalized weakness. She remains on IV lasix. She currently denies shortness of breath. She reports occasional coughing in which she develops chest pain. No chest pain at the time of examination. Blood pressures are soft with a SBP in the 90-100s this morning. PHYSICAL EXAM: VITAL SIGNS: Reviewed. GENERAL: Well-developed in no acute distress. NECK: Supple. No JVD or thyromegaly LUNGS: Respirations even and unlabored. Lungs essentially clear to auscultation bilaterally, diminished. HEART: Irregular rate and rhythm. S1 and S2 heard. + systolic murmur. EXTREMITIES: Normal range of motion. No clubbing or cyanosis. Peripheral pulses intact. Trace bilateral lower extremity edema ASSESSMENT: Shortness of breath Acute on chronic heart failure with mildly reduced EF, 45% in 05/2022 Permanent atrial fibrillation History of hypertension Borderline hypotension with dizziness PLAN: Continue current cardiac medications Continue IV lasix Daily weights, accurate I&O, and monitoring of kidney function Decrease losartan to 25 mg daily Continue to monitor blood pressure Further recommendations pending patient's course Nurse practitioner note has been reviewed by physician. Signing provider agrees with the documented findings, assessment, and plan of care. Objective - Vital Signs Vital signs: Vital Signs Temp 97.4 F L 09/13/22 07:00 Pulse 75 09/13/22 09:22 Resp 16 09/13/22 07:00 BP 118/73 09/13/22 09:22 Pulse Ox 93 L 09/13/22 09:22 FiO2 21 09/13/22 08:13 Intake & Output 09/12/22 09/13/22 09/13/22 18:59 06:59 18:59 Intake Total 360 Output Total 2600 1200 Balance -2240 -1200 Intake: Oral 360 Output: Urine 2600 1200 Other: Voiding Method External Catheter External Catheter - Labs CBC & Chem 7: 09/12/22 04:53 09/12/22 17:49 Labs: Abnormal Lab Results - Last 24 Hours (Table) 09/12/22 09/12/22 Range/Units 04:58 04:58 Potassium 2.6 L* (3.5-5.5) mmol/L Chloride 94 L (96-109) mmol/L Carbon Dioxide 33.2 H (20.0-27.5) mmol/L Magnesium 1.3 L (1.5-2.4) mg/dL Total Bilirubin 1.60 H (0.30-1.20) mg/dL Total Protein 5.7 L (6.2-8.2) g/dL Albumin 3.5 L (3.8-4.9) g/dL
[2022-09-13 10:51] LABS: Magnesium 1.3 mg/dL (1.5-2.4)
[2022-09-13 11:13] LABS: African American GFR (CKD) 63.9 (60.0-200.0); Albumin 3.8 g/dL (3.8-4.9); Albumin/Globulin Ratio 1.62 (1.60-3.17); Anion Gap 12.4 mmol/L (10.00-18.00); BUN/Creat Ratio 13.56 Ratio (12.00-20.00); Blood Urea Nitrogen 13.4 mg/dL (9.0-27.0); Calcium 9.1 mg/dL (8.7-10.3); Carbon Dioxide 39.3 mmol/L (20.0-27.5); Globulin 2.3 g/dL (1.6-3.3); Non-African American GFR(CKD) 55.1 (60.0-200.0); Potassium 3.1 mmol/L (3.5-5.5); Total Bilirubin 1.9 mg/dL (0.30-1.20); Total Protein 6.1 g/dL (6.2-8.2)
[2022-09-13] MEDS ORDERED: SODIUM CHLORIDE 0.9% 500 ML 250 ML IV ONE (12:10)
[2022-09-13] MEDS: ACETAMINOPHEN TAB 325 MG TAB PO PRN ×2 (12:11→19:44)
[2022-09-13] MEDS: FUROSEMIDE 10 MG/ML 4 ML VIAL IV SCH (12:13)
[2022-09-13] MEDS: ONDANSETRON 4 MG/2 ML VIAL IVP PRN (13:29)
[2022-09-13] MEDS: MAGNESIUM SULFATE-D5W PMX 1 GM in DEXTROSE/WATER 1 100ML.BAG IVPB SCH ×4 (13:43→19:44)
[2022-09-13] MEDS: POTASSIUM CHLORIDE ER 20 MEQ TAB.ER PO SCH ×2 (13:45→15:31)
--- NOTE | 2022-09-13 15:12 | P.PN ---
Subjective Progress Note Date: 09/13/22 Patient is a 77 year old F with PMH including systolic CHF, A. fib on Xarelto, rheumatoid arthritis, peptic ulcer disease who presents to the emergency room with complaints of diffuse abdominal discomfort as well as lower extremity edema. Patient reports that she has been experiencing a vague diffuse abdominal aching-like discomfort over the past 3-4 days. Reports compliance with her Lasix but states that she was advised to drink plenty of fluids by her PCP and family independence case manager. Chest x-ray in the emergency room is read as minimal heart failure with EKG showing A. fib with left back is a deviation and intraventricular conduction delay at 79 bpm. Laboratory evaluation was remarkable for troponin 0.0-2, proBNP 2790. With regard to her abdominal pain, CMP showed elevated total bilirubin and AST. RUQ ultrasound shows findings consistent with liver hepatitis, CBD was within normal limits. CT abdomen and pelvis showed mild left-sided hydronephrosis and bilateral renal calculi with no obstructing renal stone. Patient had recent EGD that was unremarkable. Her abdominal pain resolved. Patient was admitted for CHF exacerbation and started on Lasix 40 mg IV BID. Cardiology was consulted. Troponins were trended and ACS was ruled out. Cardiology recommended Echocardiogram which was pending at the time of this note. Patient was seen and examined this morning. She reported lightheadedness when s itting up at the side of the bed. She reports a bandlike headache along with blurry vision. She continues reported generalized weakness. She denies any chest pain, shortness breath or palpitations. Lower extremity swelling improved. General: non toxic, no distress, appears at stated age Derm: warm, dry Head: atraumatic, normocephalic, symmetric Eyes: EOMI, no lid lag, anicteric sclera Mouth: no lip lesion, mucus membranes moist Cardiovascular: Irregularly irregular, systolic murmur Lungs: Decreased breath bilateral, no rhonchi, no rales , no accessory muscle use Abdominal: soft, nontender to palpation, no guarding, no appreciable organomegaly Ext: no gross muscle atrophy, 1+ pitting lower extremity edema, no contractures Neuro: no focal neuro deficits Psych: Alert, oriented, appropriate affect #Orthostatic hypotension 250 cc NS bolus ordered by Cardiology Hold Losartan and Lasix today Fall precautions PT consulted #Hypokalemia Replace and repeat levels tomorrow #Hypomagnesemia Replace and repeat levels tomorrow #Acute CHF exacerbation Hold lasix today Echocardiogram pending Cardiology consulted Strict intake and output Daily weights #Chest pain Troponins trended and ACS ruled out Management as above #Abdominal pain could be passing of renal stone CT abdomen and pelvis this morning showed mild left-sided hydronephrosis and bilateral renal calculi with no obstructing renal stone was seen Patient had recent EGD that was unremarkable #Mildly elevated LFTs and bilirubin Suspected due to hepatic congestion Bilirubin and LFTs have improved RUQ ultrasound shows findings consistent with liver hepatitis, CBD within normal limits #Ovarian cyst Accidental finding on computed tomography scan. Patient will need outpatient follow-up Chronic conditions: Afib, RA Continue with home meds Objective - Vital Signs Vital signs: Vital Signs Temp 98.0 F 09/13/22 14:49 Pulse 85 09/13/22 14:49 Resp 17 09/13/22 14:49 BP 123/72 09/13/22 14:49 Pulse Ox 93 L 09/13/22 14:49 FiO2 09/13/22 08:13 Intake & Output 09/12/22 09/13/22 09/13/22 18:59 06:59 18:59 Intake Total 360 Output Total 2600 1200 Balance -2240 -1200 Intake: Oral 360 Output: Urine 2600 1200 Other: Voiding Method External Catheter External Catheter - Labs CBC & Chem 7: 09/13/22 06:46 09/13/22 06:46 Labs: Abnormal Lab Results - Last 24 Hours (Table) 09/12/22 09/13/22 09/13/22 Range/Units 04:58 06:46 06:46 WBC 4.29 L (4.50-10.00) X 10*3/uL RBC 4.04 L (4.10-5.20) X 10*6/uL MCV 97.5 H (80.0-97.0) fL MCH 32.4 H (27.0-32.0) pg RDW 15.6 H (11.5-14.5) % Lymphocytes # 0.53 L (0.90-5.00) X 10*3/uL Monocytes # 1.20 H (0.20-1.00) X 10*3/uL Potassium 3.1 L (3.5-5.5) mmol/L Chloride 86 L (96-109) mmol/L Carbon Dioxide 39.3 H (20.0-27.5) mmol/L Est GFR (CKD-EPI)NonAf 55.1 L (60.0-200.0) Magnesium 1.3 L 1.3 L (1.5-2.4) mg/dL Total Bilirubin 1.90 H (0.30-1.20) mg/dL AST 39 H (13-35) U/L Total Protein 6.1 L (6.2-8.2) g/dL
[2022-09-13] MEDS ORDERED: SUMAtriptan succinate 50 MG TAB PO STA (15:33)
--- NOTE | 2022-09-13 16:58 | CA ---
Transthoracic Echo Report Name: Lily Oliver Age: 77 Gender: F : 1945 Exam Date: 09/13/2022 09:31 Exam Location: [facility] Ht (in): 64 Wt (lb): 148 Ordering Physician: Chris Freeman MD ([id number]) Attending/Referring Phys: Lydia CONRAD Package Wrapper Jacqueline Field RDCS Procedure CPT: Indications: Chest Pain Cardiac Hx: Technical Quality: Fair/ contrast used to evaluate low EF. Contrast 1: Lumason Total Dose (mL): 4 Contrast 2: Total Dose (mL): MEASUREMENTS (Male / Female) Normal Values 2D ECHO LV Diastolic Diameter PLAX 3.7 cm 4.2 - 5.9 / 3.9 - 5.3 cm LV Systolic Diameter PLAX 3.4 cm IVS Diastolic Thickness 1.3 cm 0.6 - 1.0 / 0.6 - 0.9 cm LVPW Diastolic Thickness 1.4 cm 0.6 - 1.0 / 0.6 - 0.9 cm LV Relative Wall Thickness 0.7 RV Internal Dim ED PLAX 2.9 cm LA Volume 71.5 cm??? 18 - 58 / 22 - 52 cm??? M-MODE Aortic Root Diameter MM 2.6 cm LA Systolic Diameter MM 4.4 cm LA Ao Ratio MM 1.7 AV Cusp Separation MM 1.6 cm DOPPLER AV Peak Velocity 133.3 cm/s AV Peak Gradient 7.1 mmHg LVOT Peak Velocity 82.2 cm/s LVOT Peak Gradient 2.7 mmHg TR Peak Velocity 297.2 cm/s TR Peak Gradient 35.3 mmHg Right Ventricular Systolic Press 39.8 mmHg FINDINGS Left Ventricle Moderately increased left ventricular wall thickness. Moderately reduced global left ventricular systolic function. Left ventricular ejection fraction is estimated at 30-35 %. Right Ventricle Normal right ventricular size and function. Mild pulmonary hypertension. Right Atrium Mild right atrial dilatation. Left Atrium Moderately increased left atrial volume. Mitral Valve Structurally normal mitral valve. Mild mitral annular calcification. Mild mitral regurgitation. Aortic Valve Trileaflet aortic valve. No aortic stenosis. No aortic regurgitation. Aortic valve sclerosis. Tricuspid Valve Structurally normal tricuspid valve. [id number] tricuspid regurgitation. Pulmonic Valve Trace pulmonic regurgitation. Pericardium No pericardial effusion. Aorta Normal size aortic root and proximal ascending aorta. CONCLUSIONS Moderately increased left ventricular wall thickness Left ventricular ejection fraction 30-35% RVSP 40 Mild mitral regurgitation Mild to moderate tricuspid regurgitation No pericardial effusion Previewed by: Dr. Rip Fuentes DO (Electronically Signed) Final Date: 13 September 2022 16:58
[2022-09-13] MEDS: HYDROcodone/APAP 5-325MG 1 EACH TAB PO PRN (21:22)
[2022-09-14] MEDS ORDERED: POTASSIUM CHLORIDE ER 20 MEQ TAB.ER PO STA (02:08)
[2022-09-14] MEDS: IPRATROPIUM-ALBUTEROL 3 ML NEB INHALATION PRN ×2 (08:40→21:33)
[2022-09-14 09:51] LABS: Appearance,Urine Clear (Clear); Bilirubin,Urine Negative (Negative); Blood,Urine Trace (Negative); Color,Urine Yellow; Glucose,Urine (UA) Negative (Negative); Hyaline Casts,Urine 1 /lpf (0-2); Ketones,Urine Negative (Negative); Leukocyte Esterase,Urine Negative (Negative); Mucus,Urine Rare /hpf; Nitrite,Urine Negative (Negative); PH, Urine 8.5 (5.0-8.0); Protein,Urine Negative (Negative); RBC,Urine 22 /hpf (0-5); Specific Gravity,Urine 1.008 (1.001-1.035); Squamous Epithelial Cell,Urine 1 /hpf (0-4); WBC,Urine 1 /hpf (0-5)
[2022-09-14] MEDS: ACETAMINOPHEN TAB 325 MG TAB PO PRN (10:11)
[2022-09-14] MEDS: PANTOPRAZOLE 40 MG TABLET PO SCH ×2 (10:11→20:35)
[2022-09-14] MEDS: PREGABALIN 75 MG CAP PO SCH ×2 (10:11→20:35)
[2022-09-14] MEDS: RIVAROXABAN 20 MG TAB PO SCH (10:12)
[2022-09-14] MEDS: DULoxetine HCL 30 MG CAPSULE.DR PO SCH (10:12)
[2022-09-14] MEDS: LEFLUNOMIDE 20 MG TAB PO SCH (10:12)
[2022-09-14] MEDS: CHLORTHALIDONE 25 MG TAB PO SCH (10:12)
[2022-09-14 10:21] LABS: African American GFR (CKD) 56.1 (60.0-200.0); Anion Gap 11.4 mmol/L (10.00-18.00); BUN/Creat Ratio 15.18 Ratio (12.00-20.00); Blood Urea Nitrogen 16.7 mg/dL (9.0-27.0); Calcium 9.1 mg/dL (8.7-10.3); Carbon Dioxide 36.6 mmol/L (20.0-27.5); Non-African American GFR(CKD) 48.4 (60.0-200.0); Potassium 3.7 mmol/L (3.5-5.5)
--- NOTE | 2022-09-14 10:23 | P.PN ---
Subjective Progress Note Date: 09/14/22 HISTORY OF PRESENT ILLNESS: This is a 77 year old female who sees Dr. Castorena in the office. Patient is admitted to the hospital secondary to CHF. Patient examined this morning at the bedside. Patient reports having a headache this morning. She also reports feeling dizzy when ambulating. She complains of feeling tired and having generalized weakness. She remains on IV lasix. She currently denies shortness of breath. She reports occasional coughing in which she develops chest pain. No chest pain at the time of examination. Blood pressures are soft with a SBP in the 90-100s this morning. 09/14/2022 Patient examined this morning at the bedside. Patient is not as awake this morning. She denies chest pain or pressure. Denies SOB. She continues to repeat weakness. She states she has not been out of bed very much. Blood pressure stable. Echo reveals EF 30-35%, mild pulmonary hypertension, mild mitral regurgitation, [id number] tricuspid regurgitation. It is noted that the patient had a cardiac catheter is a patient May 2022 revealing calcified LAD, moderate disease in the mid and proximal LAD with no progression from 2013, no evidence of obstructive disease in the circumflex or RCA. PHYSICAL EXAM: VITAL SIGNS: Reviewed. GENERAL: Well-developed in no acute distress. NECK: Supple. No JVD or thyromegaly LUNGS: Respirations even and unlabored. Lungs essentially clear to auscultation bilaterally, diminished. HEART: Irregular rate and rhythm. S1 and S2 heard. + systolic murmur. EXTREMITIES: Normal range of motion. No clubbing or cyanosis. Peripheral pulses intact. Trace bilateral lower extremity edema ASSESSMENT: Shortness of breath Acute on chronic heart failure with reduced EF, 45% in 05/2022, now 30-35% Permanent atrial fibrillation History of hypertension Borderline hypotension with dizziness Coronary artery disease PLAN: Continue current cardiac medications Hold lasix and losartan secondary to soft blood pressures and dizziness Patient with decreased EF compared to echo in May 2022. Will continue with medical management at this time. No plans for cardiac cath. Further management per internal medicine Patient may follow up outpatient with Dr. Castorena Further recommendations pending patient's course Nurse practitioner note has been reviewed by physician. Signing provider agrees with the documented findings, assessment, and plan of care. Objective - Vital Signs Vital signs: Vital Signs Temp 98.3 F 09/14/22 07:00 Pulse 89 09/14/22 08:53 Resp 16 09/14/22 07:00 BP 125/66 09/14/22 07:00 Pulse Ox 99 09/14/22 08:41 FiO2 21 09/13/22 08:13 Intake & Output 09/13/22 09/14/22 09/14/22 18:59 06:59 18:59 Output Total 250 800 Balance -250 -800 Weight 67.2 kg Output: Urine 250 800 Other: Voiding Method External Catheter - Labs CBC & Chem 7: 09/13/22 06:46 09/13/22 22:15 Labs: Abnormal Lab Results - Last 24 Hours (Table) 09/13/22 09/13/22 09/13/22 Range/Units 06:46 06:46 22:15 WBC 4.29 L (4.50-10.00) X 10*3/uL RBC 4.04 L (4.10-5.20) X 10*6/uL MCV 97.5 H (80.0-97.0) fL MCH 32.4 H (27.0-32.0) pg RDW 15.6 H (11.5-14.5) % Lymphocytes # 0.53 L (0.90-5.00) X 10*3/uL Monocytes # 1.20 H (0.20-1.00) X 10*3/uL Potassium 3.1 L (3.5-5.5) mmol/L Chloride 86 L (96-109) mmol/L Carbon Dioxide 39.3 H (20.0-27.5) mmol/L Est GFR (CKD-EPI)NonAf 55.1 L (60.0-200.0) Magnesium 1.3 L 3.0 H (1.5-2.4) mg/dL Total Bilirubin 1.90 H (0.30-1.20) mg/dL AST 39 H (13-35) U/L Total Protein 6.1 L (6.2-8.2) g/dL Urine pH (5.0-8.0) Urine Blood (Negative) Urine RBC (0-5) /hpf Urine Mucus (None) /hpf 09/14/22 Range/Units 09:08 WBC (4.50-10.00) X 10*3/uL RBC (4.10-5.20) X 10*6/uL MCV (80.0-97.0) fL MCH (27.0-32.0) pg RDW (11.5-14.5) % Lymphocytes # (0.90-5.00) X 10*3/uL Monocytes # (0.20-1.00) X 10*3/uL Potassium (3.5-5.5) mmol/L Chloride (96-109) mmol/L Carbon Dioxide (20.0-27.5) mmol/L Est GFR (CKD-EPI)NonAf (60.0-200.0) Magnesium (1.5-2.4) mg/dL Total Bilirubin (0.30-1.20) mg/dL AST (13-35) U/L Total Protein (6.2-8.2) g/dL Urine pH 8.5 H (5.0-8.0) Urine Blood Trace H (Negative) Urine RBC 22 H (0-5) /hpf Urine Mucus Rare H (None) /hpf
--- NOTE | 2022-09-14 14:49 | P.PN ---
Subjective Progress Note Date: 09/14/22 Patient is a 77 year old F with PMH including systolic CHF, A. fib on Xarelto, rheumatoid arthritis, peptic ulcer disease who presents to the emergency room with complaints of diffuse abdominal discomfort as well as lower extremity edema. Patient reports that she has been experiencing a vague diffuse abdominal aching-like discomfort over the past 3-4 days. 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 Chest x-ray in the emergency room is read as minimal heart failure with EKG showing A. fib with left back is a deviation and intraventricular conduction delay at 79 bpm. Laboratory evaluation was remarkable for troponin 0.0-2, proBNP 2790. With regard to her abdominal pain, CMP showed elevated total bilirubin and AST. RUQ ultrasound shows findings consistent with liver hepatitis, CBD was within normal limits. CT abdomen and pelvis showed mild left-sided hydronephrosis and bilateral renal calculi with no obstructing renal stone. Patient had recent EGD that was unremarkable. Her abdominal pain resolved. Patient was admitted for CHF exacerbation and started on Lasix 40 mg IV BID. Cardiology was consulted. Troponins were trended and ACS was ruled out. Cardiology recommended Echocardiogram which showed EF 30-35% with mild MR, mild to moderate TR. Patient was noted to be lightheaded and off balance on 09/13. Orthostats were positive, Cardiology recommended discontinuing Lasix and Losartan. Patient was seen and examined this morning. She reported room spinning sensation with head movement. She reports blurry and double, worse in the right eye. She denies any unilateral hearing loss. Patient states she had her glasses adjusted 3 months ago, which initially improved her vision, but progressively has worsened since then. She continues reported generalized weakness. General: non toxic, no distress, appears at stated age Derm: warm, dry Head: atraumatic, normocephalic, symmetric Eyes: EOMI, no lid lag, anicteric sclera Mouth: no lip lesion, mucus membranes moist Cardiovascular: Irregularly irregular, systolic murmur Lungs: Decreased breath bilateral, no rhonchi, no rales , no accessory muscle use Ext: no gross muscle atrophy, 1+ pitting lower extremity edema, no contractures Neuro: no focal neuro deficits Psych: Alert, oriented, appropriate affect #Vertigo This could be related to her worsening vision R > L Possibly binocular vision dysfunction We will attempt to patch her right eye for 5 minutes and ambulate the patient afterwards to see if her dizziness improves Patient agreeable to SNF, case management aware and working on placement #Orthostatic hypotension Hold Losartan and Lasix Fall precautions Repeat orthostats tomorrow #Acute CHF exacerbation Hold lasix today Echocardiogram shows EF 30-35% with mild MR, mild to moderate TR Cardiology recommends no further workup Strict intake and output Daily weights #Chest pain Troponins trended and ACS ruled out Management as above #Abdominal pain could be passing of renal stone CT abdomen and pelvis this morning showed mild left-sided hydronephrosis and bilateral renal calculi with no obstructing renal stone was seen Patient had recent EGD that was unremarkable #Mildly elevated LFTs and bilirubin Suspected due to hepatic congestion Bilirubin and LFTs have improved RUQ ultrasound shows findings consistent with liver hepatitis, CBD within normal limits #Ovarian cyst Accidental finding on computed tomography scan. Patient will need outpatient follow-up Chronic conditions: Afib, RA Resolved: HypoK, HypoMg Plans for SNF. Patient requiring max assistance due to dizziness. She will need to follow up with her Opthalmologist ATTILA. Case management on board. Objective - Vital Signs Vital signs: Vital Signs Temp 97.8 F 09/14/22 12:46 Pulse 85 09/14/22 12:46 Resp 16 09/14/22 12:46 BP 99/54 09/14/22 12:46 Pulse Ox 95 09/14/22 12:46 FiO2 21 09/13/22 08:13 Intake & Output 09/13/22 09/14/22 09/14/22 18:59 06:59 18:59 Intake Total 240 Output Total 250 800 Balance -250 -800 240 Weight 67.2 kg Intake: Oral 240 Output: Urine 250 800 Other: Voiding Method External Catheter - Labs CBC & Chem 7: 09/13/22 06:46 09/14/22 05:16 Labs: Abnormal Lab Results - Last 24 Hours (Table) 09/13/22 09/14/22 09/14/22 Range/Units 22:15 05:16 09:08 Chloride 87 L (96-109) mmol/L Carbon Dioxide 36.6 H (20.0-27.5) mmol/L Est GFR (CKD-EPI)AfAm 56.1 L (60.0-200.0) Est GFR (CKD-EPI)NonAf 48.4 L (60.0-200.0) Magnesium 3.0 H (1.6-2.3) mg/dL Urine pH 8.5 H (5.0-8.0) Urine Blood Trace H (Negative) Urine RBC 22 H (0-5) /hpf Urine Mucus Rare H (None) /hpf
[2022-09-15] MEDS: RIVAROXABAN 20 MG TAB PO SCH (08:07)
[2022-09-15] MEDS: LEFLUNOMIDE 20 MG TAB PO SCH (08:07)
[2022-09-15] MEDS: CHLORTHALIDONE 25 MG TAB PO SCH (08:07)
[2022-09-15] MEDS: DULoxetine HCL 30 MG CAPSULE.DR PO SCH (08:07)
[2022-09-15] MEDS: PANTOPRAZOLE 40 MG TABLET PO SCH ×2 (08:07→21:27)
[2022-09-15] MEDS: PREGABALIN 75 MG CAP PO SCH ×2 (08:17→21:27)
[2022-09-15] MEDS: IPRATROPIUM-ALBUTEROL 3 ML NEB INHALATION PRN ×3 (08:29→19:53)
--- NOTE | 2022-09-15 10:12 | P.PN ---
Subjective Progress Note Date: 09/15/22 HISTORY OF PRESENT ILLNESS: This is a 77 year old female who sees Dr. Castorena in the office. Patient is admitted to the hospital secondary to CHF. Patient examined this morning at the bedside. Patient reports having a headache this morning. She also reports feeling dizzy when ambulating. She complains of feeling tired and having generalized weakness. She remains on IV lasix. She currently denies shortness of breath. She reports occasional coughing in which she develops chest pain. No chest pain at the time of examination. Blood pressures are soft with a SBP in the 90-100s this morning. 09/14/2022 Patient examined this morning at the bedside. Patient is not as awake this morning. She denies chest pain or pressure. Denies SOB. She continues to repeat weakness. She states she has not been out of bed very much. Blood pressure stable. Echo reveals EF 30-35%, mild pulmonary hypertension, mild mitral regurgitation, [id number] tricuspid regurgitation. It is noted that the patient had a cardiac catheter is a patient May 2022 revealing calcified LAD, moderate disease in the mid and proximal LAD with no progression from 2013, no evidence of obstructive disease in the circumflex or RCA. 09/15/2022 Patient examined this morning at the bedside. She denies chest pain or pressure. Denies SOB. She continues to repeat dizziness and weakness. She is being considered for discharge to ECF. Vital signs are stable. PHYSICAL EXAM: VITAL SIGNS: Reviewed. GENERAL: Well-developed in no acute distress. NECK: Supple. No JVD or thyromegaly LUNGS: Respirations even and unlabored. Lungs essentially clear to auscultation bilaterally, diminished. HEART: Irregular rate and rhythm. S1 and S2 heard. + systolic murmur. EXTREMITIES: Normal range of motion. No clubbing or cyanosis. Peripheral pulses intact. Trace bilateral lower extremity edema ASSESSMENT: Shortness of breath Acute on chronic heart failure with reduced EF, 45% in 05/2022, now 30-35% Permanent atrial fibrillation History of hypertension Borderline hypotension with dizziness Coronary artery disease PLAN: Continue current cardiac medications Hold lasix and losartan secondary to soft blood pressures and dizziness Patient with decreased EF compared to echo in May 2022. Will continue with medical management at this time. No plans for cardiac cath. Further management per internal medicine Patient may follow up outpatient with Dr. Skaf We will sign off. Please reconsult if needed. Nurse practitioner note has been reviewed by physician. Signing provider agrees with the documented findings, assessment, and plan of care. Objective - Vital Signs Vital signs: Vital Signs Temp 97.7 F 09/15/22 08:00 Pulse 76 09/15/22 08:44 Resp 16 09/15/22 08:00 BP 124/55 09/15/22 08:00 Pulse Ox 93 L 09/15/22 08:30 FiO2 21 09/15/22 08:30 Intake & Output 09/14/22 09/15/22 09/15/22 18:59 06:59 18:59 Intake Total 240 300 Output Total 1 Balance 239 300 Weight 67.2 kg Intake: Oral 240 300 Output: Stool 1 Other: Voiding Method External Catheter External Catheter # Voids 4 2 - Labs CBC & Chem 7: 09/13/22 06:46 09/14/22 05:16 Labs: Abnormal Lab Results - Last 24 Hours (Table) 09/14/22 Range/Units 05:16 Chloride 87 L (96-109) mmol/L Carbon Dioxide 36.6 H (20.0-27.5) mmol/L Est GFR (CKD-EPI)AfAm 56.1 L (60.0-200.0) Est GFR (CKD-EPI)NonAf 48.4 L (60.0-200.0)
--- NOTE | 2022-09-15 11:18 | P.PN ---
Subjective Progress Note Date: 09/15/22 Patient is a 77 year old F with PMH including systolic CHF, A. fib on Xarelto, rheumatoid arthritis, peptic ulcer disease who presents to the emergency room with complaints of diffuse abdominal discomfort as well as lower extremity edema. Patient reports that she has been experiencing a vague diffuse abdominal aching-like discomfort over the past 3-4 days. 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 Chest x-ray in the emergency room is read as minimal heart failure with EKG showing A. fib with left back is a deviation and intraventricular conduction delay at 79 bpm. Laboratory evaluation was remarkable for troponin 0.0-2, proBNP 2790. With regard to her abdominal pain, CMP showed elevated total bilirubin and AST. RUQ ultrasound shows findings consistent with liver hepatitis, CBD was within normal limits. CT abdomen and pelvis showed mild left-sided hydronephrosis and bilateral renal calculi with no obstructing renal stone. Patient had recent EGD that was unremarkable. Her abdominal pain resolved. Patient was admitted for CHF exacerbation and started on Lasix 40 mg IV BID. Cardiology was consulted. Troponins were trended and ACS was ruled out. Cardiology recommended Echocardiogram which showed EF 30-35% with mild MR, mild to moderate TR. Patient was noted to be lightheaded and off balance on 09/13. Orthostats were positive on 09/13, Cardiology recommended 250 cc NS bolus and discontinuing Lasix and Losartan. Patient was seen and examined this morning. She reported lightheadedness when going from a sitting to a standing position. She continues to report blurry and double vision, worse in the right eye, chronic. Patient states she had her glasses adjusted 3 months ago, which initially improved her vision, but progressively has worsened since then. She continues reported generalized weakness. General: non toxic, no distress, appears at stated age Derm: warm, dry Head: atraumatic, normocephalic, symmetric Eyes: EOMI, no lid lag, anicteric sclera Mouth: no lip lesion, mucus membranes moist Cardiovascular: Irregularly irregular, systolic murmur Lungs: Decreased breath bilateral, no rhonchi, no rales , no accessory muscle use Ext: no gross muscle atrophy, 1+ pitting lower extremity edema, no contractures Neuro: no focal neuro deficits Psych: Alert, oriented, appropriate affect #Dizziness #Orthostatic hypotension Possibly binocular vision dysfunction contributing to her dizziness, she will need to follow up with Opthalmonology in the outpatient setting Losartan and Lasix discontinued Fall precautions Orthostats positive 09/15, patient started on NS at 50 cc/hr Nadolol decreased from 40 to 20 mg by mouth daily Accepted to [facility] #Acute CHF exacerbation Hold lasix Echocardiogram shows EF 30-35% with mild MR, mild to moderate TR Cardiology recommends no further workup Strict intake and output Daily weights #Chest pain Troponins trended and ACS ruled out #Abdominal pain could be passing of renal stone CT abdomen and pelvis this morning showed mild left-sided hydronephrosis and bilateral renal calculi with no obstructing renal stone was seen Patient had recent EGD that was unremarkable #Mildly elevated LFTs and bilirubin Suspected due to hepatic congestion Bilirubin and LFTs have improved RUQ ultrasound shows findings consistent with liver hepatitis, CBD within normal limits #Ovarian cyst Accidental finding on computed tomography scan. Patient will need outpatient follow-up Chronic conditions: Afib, RA Resolved: HypoK, HypoMg She is accepted to [facility]. Patient requiring max assistance due to dizziness. She will need to follow up with her Opthalmologist ATTILA. Orthostats + today, started on gentle hydration. Anticipate DC tomorrow. Objective - Vital Signs Vital signs: Vital Signs Temp 97.7 F 09/15/22 08:00 Pulse 75 09/15/22 10:16 Resp 16 09/15/22 08:00 BP 121/66 09/15/22 10:16 Pulse Ox 93 L 09/15/22 08:30 FiO2 21 09/15/22 08:30 Intake & Output 09/14/22 09/15/22 09/15/22 18:59 06:59 18:59 Intake Total 240 300 Output Total 1 Balance 239 300 Weight 67.2 kg Intake: Oral 240 300 Output: Stool 1 Other: Voiding Method External Catheter External Catheter # Voids 4 2 - Labs CBC & Chem 7: 09/13/22 06:46 09/14/22 05:16
[2022-09-15] MEDS: SODIUM CHLORIDE 0.9% 1,000 ML IV SCH (11:23)
[2022-09-15] MEDS: BENZONATATE 100 MG CAP PO PRN (18:17)
--- NOTE | 2022-09-15 19:20 | XR ---
EXAMINATION TYPE: XR chest 1V portable DATE OF EXAM: 09/15/2022 COMPARISON: 09/11/2022 HISTORY: Cough TECHNIQUE: Single view FINDINGS: There is no heart failure nor confluent pneumonic infiltrate. Costophrenic angles are clear . There are chest leads. Bony thorax is intact. IMPRESSION: No active cardiopulmonary disease. Normal heart. There is improved aeration of the lung b ases compared to the old exam.
[2022-09-16] MEDS: SODIUM CHLORIDE 0.9% 1,000 ML IV SCH (06:33)
[2022-09-16] MEDS: IPRATROPIUM-ALBUTEROL 3 ML NEB INHALATION PRN ×4 (08:04→20:26)
[2022-09-16] MEDS: CHLORTHALIDONE 25 MG TAB PO SCH (08:27)
[2022-09-16] MEDS: RIVAROXABAN 20 MG TAB PO SCH (08:28)
[2022-09-16] MEDS: PREGABALIN 75 MG CAP PO SCH ×2 (08:28→22:14)
[2022-09-16] MEDS: DULoxetine HCL 30 MG CAPSULE.DR PO SCH (08:28)
[2022-09-16] MEDS: PANTOPRAZOLE 40 MG TABLET PO SCH ×2 (08:28→22:14)
[2022-09-16] MEDS: LEFLUNOMIDE 20 MG TAB PO SCH (08:31)
[2022-09-16] MEDS: BENZONATATE 100 MG CAP PO PRN ×2 (09:19→18:14)
--- NOTE | 2022-09-16 13:11 | P.PN ---
Subjective Progress Note Date: 09/16/22 Patient is a 77-year-old female with known congestive heart failure, A. fib on Xarelto, rheumatoid arthritis, and peptic ulcer disease who presented to the emergency department with complaints of lower extremity edema and abdominal discomfort. Chest x-ray in the emergency department revealed A. fib with a controlled ventricular rate at 79 bpm, laboratory analysis was remarkable for bilirubin of 2.6, AST 60, and ALT of 43. Her BNP was elevated at 8790. She was admitted and started on IV diuretics. Cardiology was consulted. She was initially placed on IV diuretics. She then had marginally low blood pressures and her losartan and Lasix were held. She had positive orthostatics on 09/15 and was complaining of dizziness. She was given mild fluid hydration. Imaging: KUB: 1.3 cm stone in the right kidney, 7 mm stone in the middle third of the right ureter Abdominal ultrasound: Possible hepatitis or hepatic steatosis, status post cholecystectomy. CT abdomen and pelvis: Bilateral nephrolithiasis, mild right-sided hydronephrosis, fullness of the left renal collecting system without obstructing stone. Stranding in the anterior pelvis adjacent to the bladder correlate for possible cystitis, small bilateral pleural effusions, sit to void diverticulosis, 3.0 cm benign epithelial ovarian cyst on the left recommended annual ultrasound surveillance Echocardiogram-ejection fraction 30-35%, RVSP 40 Patient seen and examined at bedside. She still has some dizziness especially when standing. She denies any shortness of breath. Still with some abdominal pain which is getting better. General: nontoxic, no distress, appears at stated age Derm: warm, dry, approximately 2 cm laceration with some healing left calf, no warmth but mild amount of erythema, no drainage Head: atraumatic, normocephalic, symmetric Eyes: EOMI, no lid lag, anicteric sclera Mouth: no lip lesion, mucus membranes moist Cardiovascular: S1S2 reg, no murmur, positive posterior tibial pulse bilateral, Lungs: CTA bilateral, no rhonchi, no rales , no accessory muscle use Abdominal: soft, nontender to palpation, no guarding, no appreciable organomegaly Ext: no gross muscle atrophy, no edema, no contractures Neuro: CN II-XI grossly intact, no focal neuro deficits Psych: Alert, oriented, appropriate affect Assessment/plan: Orthostatic hypotension Dizziness -Outpatient follow-up with ophthalmology -Currently off of losartan and Lasix, getting gentle fluid hydration -Repeat orthostatic vital signs today and consider discontinuing IV fluids -Patient continues to be on chlorthalidone and nadolol Systolic congestive heart failure with acute exacerbation on admission, EF 30- 35% Chest pain, ACS ruled out Atrial fibrillation, rate controlled -Cardiology recommendations appreciated: Has signed off, further outpatient follow-up, no immediate plans for cardiac catheterization -Continue to hold Lasix and ARB -Continue nadolol -Strict I's and O's - continue xarelto nonobstructing nephrolithasis - continue to monitor Hepatic congestion secondary to systolic heart failure, improved Ovarian cyst, on last transvaginal ultrasound Orad 2 consistent with likely benign etiology. Continue outpatient follow-up. has a large ovarian cyst and is continuing to take oral estradiol. We will discontinue given the fact that patient is 77 and well past menopause. Discharge in a.m. to [facility] Objective - Vital Signs Vital signs: Vital Signs Temp 97.5 F L 09/16/22 08:00 Pulse 85 09/16/22 12:04 Resp 16 09/16/22 08:00 BP 115/71 09/16/22 08:00 Pulse Ox 97 09/16/22 08:00 FiO2 21 09/15/22 08:30 Intake & Output 09/15/22 09/16/22 09/16/22 18:59 06:59 18:59 Intake Total 418 538 Output Total 1200 Balance 418 -1200 538 Weight 65 kg Intake: Oral 418 538 Output: Urine 1200 Other: Voiding Method External Catheter External Catheter # Voids 1 # Bowel Movements 2 - Labs CBC & Chem 7: 09/13/22 06:46 09/14/22 05:16
[2022-09-17] MEDS: HYDROcodone/APAP 5-325MG 1 EACH TAB PO PRN (01:03)
[2022-09-17] MEDS: BENZONATATE 100 MG CAP PO PRN (01:14)
[2022-09-17] MEDS: CHLORTHALIDONE 25 MG TAB PO SCH (08:25)
[2022-09-17] MEDS: RIVAROXABAN 20 MG TAB PO SCH (08:25)
[2022-09-17] MEDS: DULoxetine HCL 30 MG CAPSULE.DR PO SCH (08:25)
[2022-09-17] MEDS: PREGABALIN 75 MG CAP PO SCH ×2 (08:26→21:34)
[2022-09-17] MEDS: LEFLUNOMIDE 20 MG TAB PO SCH (08:26)
[2022-09-17] MEDS: PANTOPRAZOLE 40 MG TABLET PO SCH ×2 (08:26→21:34)
[2022-09-17] MEDS: guaiFENesin 600 MG TABLET.ER PO SCH ×2 (08:32→21:34)
--- NOTE | 2022-09-17 08:55 | XR ---
EXAMINATION TYPE: XR chest 1V portable DATE OF EXAM: 09/17/2022 8:40 AM COMPARISON: Chest radiographs from 09/12/2022 TECHNIQUE: XR chest 1V portable Portable AP radiograph of the chest. CLINICAL INDICATION:Female, 77 years old with history of shortness of breath; FINDINGS: Lungs/Pleura: There is no evidence of pleural effusion, focal consolidation, or pneumothorax. Pulmonary vascularity: Unremarkable. Heart/mediastinum: Cardiomediastinal silhouette is unremarkable. Musculoskeletal: No acute osseous pathology. IMPRESSION: No acute cardiopulmonary disease/process.
[2022-09-17] MEDS ORDERED: FUROSEMIDE 10 MG/ML 4 ML VIAL IV STA (09:45)
[2022-09-17] MEDS ORDERED: AZITHROMYCIN 1,200 MG/30 ML BOTTLE PO SCH (10:00)
--- NOTE | 2022-09-17 10:05 | P.DS ---
Providers Date of admission: 09/14/22 11:25 Expected date of discharge: 09/17/22 Attending physician: Kelsy Ricks MD Primary care physician: Dex Mcneal MD Hospital Course: Discharge Diagnosis: Orthostatic hypotension Dizziness Systolic congestive heart failure with acute exacerbation on admission, EF 30- 35% Chest pain, ACS ruled out Atrial fibrillation, rate controlled nonobstructing nephrolithasis Hepatic congestion secondary to systolic heart failure, improved Ovarian cyst, on last transvaginal ultrasound Orad 2 consistent with likely benign etiology. Hospital Course: Patient is a 77-year-old female with known congestive heart failure, A. fib on Xarelto, rheumatoid arthritis, and peptic ulcer disease who presented to the emergency department with complaints of lower extremity edema and abdominal discomfort. Chest x-ray in the emergency department revealed A. fib with a controlled ventricular rate at 79 bpm, laboratory analysis was remarkable for bilirubin of 2.6, AST 60, and ALT of 43. Her BNP was elevated at 8790. She was admitted and started on IV diuretics. Cardiology was consulted. She was initially placed on IV diuretics. She then had marginally low blood pressures and her losartan and Lasix were held. She had positive orthostatics on 09/15 and was complaining of dizziness. She was given mild fluid hydration. She did develop a slight cough and congestion. She was started on mucinex and zitromax for bornchitis as chest x-ray was clear. She was determined stable for discharge to [facility]. Imaging: KUB: 1.3 cm stone in the right kidney, 7 mm stone in the middle third of the right ureter Abdominal ultrasound: Possible hepatitis or hepatic steatosis, status post cholecystectomy. CT abdomen and pelvis: Bilateral nephrolithiasis, mild right-sided hydronephrosis, fullness of the left renal collecting system without obstructing stone. Stranding in the anterior pelvis adjacent to the bladder correlate for possible cystitis, small bilateral pleural effusions, sit to void diverticulosis, 3.0 cm benign epithelial ovarian cyst on the left recommended annual ultrasound surveillance Echocardiogram-ejection fraction 30-35%, RVSP 40 Follow-up: Dr. Castorena in 1 week, Dr. Fuchs in 1 week for visual changes. Resume Lasix, conitnue to hold ACEI, Follow BP Patient seen and examined at bedside. She complains of cough and congestion just feeling tired. Vital signs reviewed and stable. General: nontoxic, no distress, appears at stated age Derm: warm, dry, dressing in place left calf Head: atraumatic, normocephalic, symmetric Eyes: EOMI, no lid lag, anicteric sclera Mouth: no lip lesion, mucus membranes moist Cardiovascular: S1S2 reg, no murmur, positive posterior tibial pulse bilateral, Lungs: Rhonchi bilaterally , no accessory muscle use Abdominal: soft, nontender to palpation, no guarding, no appreciable organomegaly Ext: no gross muscle atrophy, no edema, no contractures Neuro: CN II-XI grossly intact, no focal neuro deficits Psych: Alert, oriented, appropriate affect A total of 35 minutes of time were spent preparing this complex discharge summary. Patient was discharged on 09/17/22. Patient Condition at Discharge: Stable Plan - Discharge Summary New Discharge Prescriptions: New guaiFENesin [Mucinex] 1,200 mg PO Q12HR tab Azithromycin [Zithromax] 250 mg PO DAILY 4 Days ml Continue Pantoprazole Sodium [Protonix] 40 mg PO BID Glucosam/Chond/Hyalu/Cf Borate [Move Free Joint Health Tablet] 1 tab PO DAILY nadoloL [Corgard] 40 mg PO DAILY Cholecalciferol [Vitamin D3 (25 Mcg = 1000 Iu)] 25 mcg PO DAILY DULoxetine HCL [Cymbalta] 30 mg PO DAILY Lysine 500 mg PO DAILY Benzonatate [Tessalon Perles] 100 mg PO TID PRN #14 capsule PRN Reason: Cough Pregabalin [Lyrica] 75 mg PO BID #14 cap HYDROcodone/APAP 5-325MG [Alcova 5-325] 1 tab PO Q6HR PRN 3 Days #12 tab PRN Reason: Severe Pain Rivaroxaban [Xarelto] 20 mg PO DAILY Potassium Citrate 99 mg PO DAILY Cyanocobalamin (Vitamin B-12) [Vitamin B-12] 1,000 mcg PO DAILY Leflunomide [Arava] 20 mg PO DAILY Chlorthalidone 25 mg PO DAILY Ondansetron Odt [Zofran ODT] 4 mg PO Q8HR PRN #10 tab PRN Reason: Nausea Changed Ipratropium Nebulized [Atrovent Nebulized 0.2 MG/ML] 0.5 mg INHALATION QID #0 Ipratropium Nebulized [Atrovent Nebulized 0.2 MG/ML] 0.5 mg INHALATION QID #0 Discontinued estradioL [Estrace] 2 mg PO DAILY Loperamide [Imodium] 2 mg PO QID PRN #10 cap PRN Reason: Diarrhea Acetaminophen [Tylenol Arthritis] 1,300 mg PO Q12H PRN PRN Reason: Pain Losartan [Cozaar] 50 mg PO DAILY 90 Days #90 tab Discharge Medication List Pantoprazole Sodium [Protonix] 40 mg PO BID 05/14/14 [History] Glucosam/Chond/Hyalu/Cf Borate [Move Free Joint Health Tablet] 1 tab PO DAILY 05/02/20 [History] nadoloL [Corgard] 40 mg PO DAILY 05/02/20 [History] Rivaroxaban [Xarelto] 20 mg PO DAILY 12/02/21 [History] Cholecalciferol [Vitamin D3 (25 Mcg = 1000 Iu)] 25 mcg PO DAILY 06/16/22 [Histor y] Cyanocobalamin (Vitamin B-12) [Vitamin B-12] 1,000 mcg PO DAILY 06/16/22 [History] Potassium Citrate 99 mg PO DAILY 06/16/22 [History] DULoxetine HCL [Cymbalta] 30 mg PO DAILY 08/03/22 [History] Leflunomide [Arava] 20 mg PO DAILY 08/03/22 [History] Lysine 500 mg PO DAILY 08/03/22 [History] Chlorthalidone 25 mg PO DAILY 08/10/22 [History] Ondansetron Odt [Zofran ODT] 4 mg PO Q8HR PRN #10 tab 09/03/22 [Rx] Benzonatate [Tessalon Perles] 100 mg PO TID PRN #14 capsule 09/06/22 [Rx] Azithromycin [Zithromax] 250 mg PO DAILY 4 Days ml 09/17/22 [Rx] HYDROcodone/APAP 5-325MG [Alcova 5-325] 1 tab PO Q6HR PRN 3 Days #12 tab 09/17/22 [Rx] Ipratropium Nebulized [Atrovent Nebulized 0.2 MG/ML] 0.5 mg INHALATION QID #0 09/17/22 [Rx] Ipratropium Nebulized [Atrovent Nebulized 0.2 MG/ML] 0.5 mg INHALATION QID #0 09/17/22 [Rx] Pregabalin [Lyrica] 75 mg PO BID #14 cap 09/17/22 [Rx] guaiFENesin [Mucinex] 1,200 mg PO Q12HR tab 09/17/22 [Rx] Follow up Appointment(s)/Referral(s): Alex Boyle MD [STAFF PHYSICIAN] - 1 Week Sergey Castorena MD [STAFF PHYSICIAN] - 1 Week Dex Mcneal MD [Primary Care Provider] - 1-2 days Activity/Diet/Wound Care/Special Instructions: Activity: as tolerated Diet: heart healthy Special Instructions: Fall precautions Monitor blood pressure Compression stockings when up and walking Discharge Disposition: TRANSFER TO SNF/ECF
[2022-09-17] MEDS: ONDANSETRON 4 MG/2 ML VIAL IVP PRN (12:14)
[2022-09-17] MEDS ORDERED: BENZONATATE 100 MG CAP PO PRN (14:00)
[2022-09-17] MEDS: ACETAMINOPHEN TAB 325 MG TAB PO PRN (17:20)
[2022-09-18 07:48] VITALS: BP 142/78; RESP 18; TEMP 99
[2022-09-18] MEDS: IPRATROPIUM-ALBUTEROL 3 ML NEB INHALATION PRN ×2 (08:06→11:51)
[2022-09-18] MEDS: PANTOPRAZOLE 40 MG TABLET PO SCH (08:24)
[2022-09-18] MEDS: PREGABALIN 75 MG CAP PO SCH (08:24)
[2022-09-18] MEDS: guaiFENesin 600 MG TABLET.ER PO SCH (08:24)
[2022-09-18] MEDS: RIVAROXABAN 20 MG TAB PO SCH (08:24)
[2022-09-18] MEDS: CHLORTHALIDONE 25 MG TAB PO SCH (08:25)
[2022-09-18] MEDS: DULoxetine HCL 30 MG CAPSULE.DR PO SCH (08:25)
--- NOTE | 2022-09-18 08:28 | P.DS ---
Providers Date of admission: 09/14/22 11:25 Expected date of discharge: 09/18/22 Attending physician: Kelsy Ricks MD Primary care physician: Dex Mcneal MD Hospital Course: Discharge Diagnosis: URI due to RSV Orthostatic hypotension Dizziness Systolic congestive heart failure with acute exacerbation on admission, EF 30- 35% Chest pain, ACS ruled out Atrial fibrillation, rate controlled nonobstructing nephrolithasis Hepatic congestion secondary to systolic heart failure, improved Ovarian cyst, on last transvaginal ultrasound Orad 2 consistent with likely benign etiology. Hospital Course: Patient is a 77-year-old female with known congestive heart failure, A. fib on Xarelto, rheumatoid arthritis, and peptic ulcer disease who presented to the emergency department with complaints of lower extremity edema and abdominal discomfort. Chest x-ray in the emergency department revealed A. fib with a controlled ventricular rate at 79 bpm, laboratory analysis was remarkable for bilirubin of 2.6, AST 60, and ALT of 43. Her BNP was elevated at 8790. She was admitted and started on IV diuretics. Cardiology was consulted. She was initially placed on IV diuretics. She then had marginally low blood pressures and her losartan and Lasix were held. She had positive orthostatics on 09/15 and was complaining of dizziness. She was given mild fluid hydration. She did develop a slight cough and congestion. She tested positive for RSV and chest x- ray was clear. She was determined stable for discharge to [facility]. Imaging: KUB: 1.3 cm stone in the right kidney, 7 mm stone in the middle third of the right ureter Abdominal ultrasound: Possible hepatitis or hepatic steatosis, status post cholecystectomy. CT abdomen and pelvis: Bilateral nephrolithiasis, mild right-sided hydronephrosis, fullness of the left renal collecting system without obstructing stone. Stranding in the anterior pelvis adjacent to the bladder correlate for possible cystitis, small bilateral pleural effusions, sit to void diverticulosis, 3.0 cm benign epithelial ovarian cyst on the left recommended annual ultrasound surveillance Echocardiogram-ejection fraction 30-35%, RVSP 40 Follow-up: Dr. Castorena in 1 week, Dr. Fuchs in 1 week for visual changes. Resume Lasix, continue to hold ACEI, Follow BP, scheduled bronchdilators for 7 days, mucinex for 7 days for cough. Patient seen and examined at bedside. She complains of cough and congestion. The combination of mucinex and tessalon did help. However she does not have any overnight feels overworn off morning. Vital signs reviewed and stable. General: nontoxic, no distress, appears at stated age Derm: warm, dry, dressing in place left calf Head: atraumatic, normocephalic, symmetric Eyes: EOMI, no lid lag, anicteric sclera Mouth: no lip lesion, mucus membranes moist Cardiovascular: S1S2 reg, no murmur, positive posterior tibial pulse bilateral, Lungs: Rhonchi bilaterally , no accessory muscle use Abdominal: soft, nontender to palpation, no guarding, no appreciable organomegaly Ext: no gross muscle atrophy, no edema, no contractures Neuro: CN II-XI grossly intact, no focal neuro deficits Psych: Alert, oriented, appropriate affect A total of 35 minutes of time were spent preparing this complex discharge summary. Patient was discharged on 09/17/22. Patient Condition at Discharge: Stable Plan - Discharge Summary New Discharge Prescriptions: New guaiFENesin [Mucinex] 1,200 mg PO Q12HR tab Azithromycin [Zithromax] 250 mg PO DAILY 4 Days ml Ipratropium-Albuterol Nebulize [Duoneb 0.5 mg-3 mg/3 ml Soln] 3 ml INHALATION RT-QID PRN each PRN Reason: Shortness Of Breath Or Wheezing Continue Pantoprazole Sodium [Protonix] 40 mg PO BID Glucosam/Chond/Hyalu/Cf Borate [Move Free Joint Health Tablet] 1 tab PO DAILY nadoloL [Corgard] 40 mg PO DAILY Cholecalciferol [Vitamin D3 (25 Mcg = 1000 Iu)] 25 mcg PO DAILY DULoxetine HCL [Cymbalta] 30 mg PO DAILY Lysine 500 mg PO DAILY Benzonatate [Tessalon Perles] 100 mg PO TID PRN #14 capsule PRN Reason: Cough Pregabalin [Lyrica] 75 mg PO BID #14 cap HYDROcodone/APAP 5-325MG [[place] 5-325] 1 tab PO Q6HR PRN 3 Days #12 tab PRN Reason: Severe Pain Rivaroxaban [Xarelto] 20 mg PO DAILY Potassium Citrate 99 mg PO DAILY Cyanocobalamin (Vitamin B-12) [Vitamin B-12] 1,000 mcg PO DAILY Leflunomide [Arava] 20 mg PO DAILY Chlorthalidone 25 mg PO DAILY Ondansetron Odt [Zofran ODT] 4 mg PO Q8HR PRN #10 tab PRN Reason: Nausea Changed Ipratropium Nebulized [Atrovent Nebulized 0.2 MG/ML] 0.5 mg INHALATION QID #0 Ipratropium Nebulized [Atrovent Nebulized 0.2 MG/ML] 0.5 mg INHALATION QID #0 Discontinued estradioL [Estrace] 2 mg PO DAILY Loperamide [Imodium] 2 mg PO QID PRN #10 cap PRN Reason: Diarrhea Acetaminophen [Tylenol Arthritis] 1,300 mg PO Q12H PRN PRN Reason: Pain Losartan [Cozaar] 50 mg PO DAILY 90 Days #90 tab Discharge Medication List Pantoprazole Sodium [Protonix] 40 mg PO BID 05/14/14 [History] Glucosam/Chond/Hyalu/Cf Borate [Move Free Joint Health Tablet] 1 tab PO DAILY 05/02/20 [History] nadoloL [Corgard] 40 mg PO DAILY 05/02/20 [History] Rivaroxaban [Xarelto] 20 mg PO DAILY 12/02/21 [History] Cholecalciferol [Vitamin D3 (25 Mcg = 1000 Iu)] 25 mcg PO DAILY 06/16/22 [History] Cyanocobalamin (Vitamin B-12) [Vitamin B-12] 1,000 mcg PO DAILY 06/16/22 [History] Potassium Citrate 99 mg PO DAILY 06/16/22 [History] DULoxetine HCL [Cymbalta] 30 mg PO DAILY 08/03/22 [History] Leflunomide [Arava] 20 mg PO DAILY 08/03/22 [History] Lysine 500 mg PO DAILY 08/03/22 [History] Chlorthalidone 25 mg PO DAILY 08/10/22 [History] Ondansetron Odt [Zofran ODT] 4 mg PO Q8HR PRN #10 tab 09/03/22 [Rx] Benzonatate [Tessalon Perles] 100 mg PO TID PRN #14 capsule 09/06/22 [Rx] Azithromycin [Zithromax] 250 mg PO DAILY 4 Days ml 09/17/22 [Rx] HYDROcodone/APAP 5-325MG [[place] 5-325] 1 tab PO Q6HR PRN 3 Days #12 tab 09/17/22 [Rx] Ipratropium Nebulized [Atrovent Nebulized 0.2 MG/ML] 0.5 mg INHALATION QID #0 09/17/22 [Rx] Ipratropium Nebulized [Atrovent Nebulized 0.2 MG/ML] 0.5 mg INHALATION QID #0 09/17/22 [Rx] Pregabalin [Lyrica] 75 mg PO BID #14 cap 09/17/22 [Rx] guaiFENesin [Mucinex] 1,200 mg PO Q12HR tab 09/17/22 [Rx] Ipratropium-Albuterol Nebulize [Duoneb 0.5 mg-3 mg/3 ml Soln] 3 ml INHALATION RT-QID PRN each 09/18/22 [Rx] Follow up Appointment(s)/Referral(s): Alex Boyle MD [STAFF PHYSICIAN] - 1 Week Sergey Castorena MD [STAFF PHYSICIAN] - 1 Week Dex Mcneal MD [Primary Care Provider] - 1-2 days Activity/Diet/Wound Care/Special Instructions: Activity: as tolerated Diet: heart healthy Special Instructions: Fall precautions Monitor blood pressure Compression stockings when up and walking Discharge Disposition: TRANSFER TO SNF/ECF
[2022-09-18] MEDS: ACETAMINOPHEN TAB 325 MG TAB PO PRN (08:30)
[2022-09-18] MEDS: LEFLUNOMIDE 20 MG TAB PO SCH (11:27)
[2022-09-18] MEDS ORDERED: ONDANSETRON 4 MG TAB PO PRN (11:57)
[2022-09-18 12:00] VITALS: PULSE 88
== END 2022-09-18 12:04 | DRG 312 ==
LOC: EC 13:42 → 6NMEDSUR 17:56 → OBSVTOIN 09-14 11:25
PROVIDERS: ADMIT Internal Medicine; ATTEND Internal Medicine
DX: I95.1 Orthostatic hypotension (principal); I50.23 Acute on chronic systolic (congestive) heart failure; I48.21 Permanent atrial fibrillation; N13.2 Hydronephrosis with renal and ureteral calculous obstruction; I11.0 Hypertensive heart disease with heart failure; I27.20 Pulmonary hypertension, unspecified; B97.4 Respiratory syncytial virus as the cause of diseases classified elsewhere; K76.1 Chronic passive congestion of liver; G43.909 Migraine, unspecified, not intractable, without status migrainosus; E83.42 Hypomagnesemia; J44.9 Chronic obstructive pulmonary disease, unspecified; M06.9 Rheumatoid arthritis, unspecified; Z20.822 Contact with and (suspected) exposure to COVID-19; J06.9 Acute upper respiratory infection, unspecified; I08.1 Rheumatic disorders of both mitral and tricuspid valves; E89.0 Postprocedural hypothyroidism; E87.6 Hypokalemia; H53.2 Diplopia; M54.9 Dorsalgia, unspecified; K21.9 Gastro-esophageal reflux disease without esophagitis; F32.A Depression, unspecified; I25.10 Atherosclerotic heart disease of native coronary artery without angina pectoris; M19.90 Unspecified osteoarthritis, unspecified site; K57.30 Diverticulosis of large intestine without perforation or abscess without bleeding; N83.209 Unspecified ovarian cyst, unspecified side; Z79.890 Hormone replacement therapy; Z79.01 Long term (current) use of anticoagulants; Z79.899 Other long term (current) drug therapy; Z88.6 Allergy status to analgesic agent; I25.2 Old myocardial infarction; Z87.11 Personal history of peptic ulcer disease; Z85.820 Personal history of malignant melanoma of skin; Z87.442 Personal history of urinary calculi; Z96.641 Presence of right artificial hip joint; Z96.653 Presence of artificial knee joint, bilateral; Z98.1 Arthrodesis status; Z88.1 Allergy status to other antibiotic agents; Z91.011 Allergy to milk products; Z88.5 Allergy status to narcotic agent; Z88.0 Allergy status to penicillin; Z88.2 Allergy status to sulfonamides; Z88.8 Allergy status to other drugs, medicaments and biological substances; Z91.018 Allergy to other foods
CPT/HCPCS: 36415; 71045; 74018; 74176; 76705; 80048; 80053; 81001; 83690; 83735; 83880; 84132; 84484; 85025; 85610; 85730; 87502; 87634; 87635; 87636; 93005; 93306; 94640; 94760; 96374; 99285

== ENCOUNTER → 2022-11-05 | Day surgery (SDC) | payer MEDICARE, BC ==
[2022-11-02 15:58] VITALS: BMI 24.0
[~2022-11-05] MED LIST changes: +DULoxetine HCL 30 MG CAPSULE.DR PO STA; -LACTATED RINGERS 1,000 ML IV SCH; +LEFLUNOMIDE 20 MG TAB PO STA; -LIDOCAINE 1% (10MG/ML) FOR IV START INTRADERMA PRN; +PREGABALIN 75 MG CAP PO STA; +PROPOFOL 10 MG/ML 20 ML VIAL IV ONE; +RIVAROXABAN 20 MG TAB PO STA; +SODIUM CHLORIDE 0.9% 1,000 ML IV SCH
[2022-11-05 07:11] VITALS: RESP 16; TEMP 94.4
--- NOTE | 2022-11-05 07:49 | P.PCN ---
Date of Procedure: 11/05/22 Operative Findings: Cardioversion Report Performing physician Sergey Castorena M.D. Procedure performed Successful cardioversion of atrial fibrillation to normal sinus mechanism using 200 J at first attempt Indication Symptomatic atrial fibrillation Complication None Level of sedation The procedure was performed under deep sedation using propofol with [employer] in the room Procedure description After obtaining an informed consent the patient was brought to the recovery room. Sedation was introduced using propofol with [employer]OR in the room. Subsequently the patient cardioverted from atrial fibrillation to normal sinus mechanism using 200 J and first attempt. The patient has been in and out sinus mechanism after the cardioversion. Conclusion Successful cardioversion of atrial fibrillation to normal sinus mechanism using 200 J Postprocedure management Continue the current medical regimen Continue oral anticoagulation Follow-up with the patient
[2022-11-05 11:20] VITALS: BP 145/70; PULSE 78
== END ==
LOC: CATHCVL 06:27
PROVIDERS: ATTEND Internal Medicine Interventional Cardiology
DX: I48.0 Paroxysmal atrial fibrillation (principal); I47.1 Supraventricular tachycardia; I25.10 Atherosclerotic heart disease of native coronary artery without angina pectoris; I42.9 Cardiomyopathy, unspecified; E78.5 Hyperlipidemia, unspecified; Z79.01 Long term (current) use of anticoagulants; Z79.02 Long term (current) use of antithrombotics/antiplatelets; I73.9 Peripheral vascular disease, unspecified; I11.0 Hypertensive heart disease with heart failure; I50.9 Heart failure, unspecified; I25.2 Old myocardial infarction; Z87.19 Personal history of other diseases of the digestive system; K21.9 Gastro-esophageal reflux disease without esophagitis; Z82.49 Family history of ischemic heart disease and other diseases of the circulatory system; J44.9 Chronic obstructive pulmonary disease, unspecified; J45.909 Unspecified asthma, uncomplicated; E03.9 Hypothyroidism, unspecified; Z86.73 Personal history of transient ischemic attack (TIA), and cerebral infarction without residual deficits; M10.9 Gout, unspecified; D64.9 Anemia, unspecified; I34.0 Nonrheumatic mitral (valve) insufficiency; Z79.51 Long term (current) use of inhaled steroids; Z79.1 Long term (current) use of non-steroidal anti-inflammatories (NSAID); Z79.811 Long term (current) use of aromatase inhibitors; Z79.82 Long term (current) use of aspirin; Z79.891 Long term (current) use of opiate analgesic; Z79.899 Other long term (current) drug therapy; Z88.0 Allergy status to penicillin; Z88.1 Allergy status to other antibiotic agents; Z88.5 Allergy status to narcotic agent; Z88.6 Allergy status to analgesic agent; Z88.8 Allergy status to other drugs, medicaments and biological substances
CPT/HCPCS: 93005; 92960; J2704

== ENCOUNTER → 2022-11-18 | Outpatient (CLI) | payer MEDICARE, BC ==
--- NOTE | 2022-11-18 20:48 | XR ---
EXAMINATION TYPE: XR Hip Complete 2 views RT DATE OF EXAM: 11/18/2022 Comparison: 09/06/2022 Clinical History: 77-year-old female I65.29 Findings: Right total hip arthroplasty noted. Both acetabular cup and femoral stem components of prosthesis are well seated. Small loose bodies or heterotopic ossification above the right hip measuring 9 mm, unch anged from prior. Right-sided pelvic phlebolith. Impression: Uncomplicated appearance to the right total hip arthroplasty.
== END | disposition home or self-care (01) ==
LOC: RADXRMAIN 14:05
PROVIDERS: ATTEND Family Medicine
DX: M25.551 Pain in right hip (principal); Z96.641 Presence of right artificial hip joint
CPT/HCPCS: 73502

== ENCOUNTER → 2023-01-06 | Outpatient (CLI) | payer MEDICARE, BC ==
[2023-01-06 12:11] LABS: INR 2.9 (<1.2); Partial Thromboplastin Time 38.5 sec (22.0-30.0); Prothrombin Time 28.6 sec (9.0-12.0)
== END | disposition home or self-care (01) ==
LOC: LABWHC1 10:03
PROVIDERS: ATTEND Internal Medicine Interventional Cardiology
DX: I48.11 Longstanding persistent atrial fibrillation (principal)
CPT/HCPCS: 36415; 85610; 85730

== ENCOUNTER 2023-01-24 20:41 | Inpatient (IN) | payer MEDICARE, BC ==
[2023-01-24 21:17] LABS: Anisocytosis Slight; Basophils % (A) 0 %; Eosinophils # (A) 0.5 k/uL (0-0.7); Eosinophils % (A) 7 %; HCT 29.3 % (34.0-46.0); HGB 9.4 gm/dL (11.4-16.0); Lymphocytes # (A) 1.6 k/uL (1.0-4.8); Lymphocytes % (A) 23 %; MCH 29.4 pg (25.0-35.0); MCHC 32.2 g/dL (31.0-37.0); MCV 91.4 fL (80.0-100.0); Mean Platelet Volume 9.1; Monocytes # (A) 0.8 k/uL (0-1.0); Monocytes % (A) 11 %; Neutrophils % (A) 55 %; Platelet Count 272 k/uL (150-450); RBC 3.21 m/uL (3.80-5.40); RDW 17.7 % (11.5-15.5); WBC 7.2 k/uL (3.8-10.6)
[2023-01-24 21:27] LABS: Prothrombin Time 67.9 sec (9.0-12.0)
[2023-01-24 21:29] LABS: Albumin 4.1 g/dL (3.5-5.0); Potassium 4.9 mmol/L (3.5-5.1); Total Bilirubin 0.5 mg/dL (0.2-1.3); Total Protein 7.7 g/dL (6.3-8.2)
--- NOTE | 2023-01-24 21:35 | XR ---
EXAMINATION TYPE: XR chest 1V portable DATE OF EXAM: 01/24/2023 9:21 PM COMPARISON: Chest radiographs from 12/06/2022 TECHNIQUE: XR chest 1V portable Frontal view of the chest. CLINICAL INDICATION:Female, 77 years old with history of pain; FINDINGS: Lungs/Pleura: There is no evidence of pleural effusion, focal consolidation, or pneumothorax. Pulmonary vascularity: Unremarkable. Heart/mediastinum: Cardiomediastinal silhouette is prominent in size. Musculoskeletal: No acute osseous pathology. There is fixation hardware in the lower cervical spine. IMPRESSION: No acute cardiopulmonary disease/process.
[2023-01-24 21:45] LABS: INR 6.8 (<1.2)
[2023-01-24 21:46] LABS: Partial Thromboplastin Time 61.2 sec (22.0-30.0)
[2023-01-24] MEDS ORDERED: PHYTONADIONE 10 MG in SODIUM CHLORIDE 0.9% 50 ML IVPB STA (21:48)
[2023-01-24] MEDS ORDERED: Kcentra PER PHARMACY 1 EACH MISC MISCELLANE PRN (21:50)
--- NOTE | 2023-01-24 21:50 | XR ---
EXAMINATION TYPE: XR pelvis AP view DATE OF EXAM: 01/24/2023 9:43 PM INDICATION: Patient age:Female; 77 years old; Reason for study: Trauma; COMPARISON: 01/24/2023 CT TECHNIQUE: The pelvis was examined in a single projection. FINDINGS: There is no evidence of fracture or dislocation. There is no soft tissue abnormality. No a bnormal calcifications are present. The spine appears intact. Fixation hardware to the lumbar spine w ith hardware intact. Right hip arthroplasty with hardware intact. No evidence for acute fracture. IMPRESSION: 1. No acute osseous pathology. 2. Postsurgical changes with hardware intact.
--- NOTE | 2023-01-24 21:52 | XR ---
EXAMINATION TYPE: XR tibia fibula LT DATE OF EXAM: 01/24/2023 9:43 PM INDICATION: Patient age:Female; 77 years old; Reason for study: trauma; COMPARISON: None TECHNIQUE: The left tibia/fibula was examined in AP and lateral projections. FINDINGS: No evidence of any acute osseous pathology, joint dislocation, or soft tissue swelling is n oted. Calcaneal plantar spurring is present. Hardware involving the knee with total knee arthroplasty . Hardware appears intact. IMPRESSION: 1. No evidence of acute fracture. 2. Postsurgical changes in the with hardware intact.
--- NOTE | 2023-01-24 21:52 | XR ---
EXAMINATION TYPE: XR humerus RT DATE OF EXAM: 01/24/2023 9:43 PM INDICATION: Patient age:Female; 77 years old; Reason for study: trauma; COMPARISON: None TECHNIQUE: The right humerus was examined in frontal and lateral projections. FINDINGS: No evidence of acute osseous pathology, joint dislocation, or soft tissue swelling. The rem aining portions of the visualized chest are unremarkable. Mild osteophyte patient of the humeral head and glenoid. IV cannula noted in the cubital fossa. IMPRESSION: 1. No acute osseous pathology. 2. Mild right shoulder osteoarthrosis.
[2023-01-24] MEDS ORDERED: HUMAN PROTHROMBIN COMPLX IV ONE (22:15)
--- NOTE | 2023-01-24 22:41 | CT ---
EXAMINATION TYPE: CT thor lumbar spine wo con CT DLP: 1387 mGycm, Automated exposure control for dose reduction was used. DATE OF EXAM: 01/24/2023 10:16 PM CLINICAL INDICATION:Female, 77 years old with history of trauma; syncopal episode COMPARISON: CT 06/01/2018, 02/18/2012 MRI TECHNIQUE: Axial images of the thoracic and lumbar spine were obtained without contrast. Coronal and sagittal reformats were performed. 3-D reformats of the bones were created on a separate workstation and submitted for review. CT Contrast: Contrast used: none. Oral contrast used: none. FINDINGS: Thoracic: Multilevel disc degeneration changes of the thoracic spine with mild increased kyphosis of the midtho racic spine. Fixation hardware in the lower cervical spine is present and appears intact. T8 lucent a tae favored represent vertebral body hemangioma. Disc degeneration changes worse at T9-T12. There is endplate sclerosis with osteophyte formation multilevel facet joint arthropathy seen throughout the s pine. No evidence for significant spinal canal or neural foraminal stenosis Atherosclerosis of the coronary arteries. Lumbar: Alignment: There are 5 lumbar type vertebral bodies within normal alignment. Bone: Multilevel disc degeneration changes throughout the lumbar spine. There is fixation hardware fr om L3 through S1. Hardware appears intact. Discectomy at L3-L4 L4-L5 and L5-S1. Facet joint arthropat hy present throughout the lumbar spine. Given limitations of this streak artifact from fixation hardw are of the spinal canal neural foramen are patent. The. Other: Nonobstructing calculi on the right measuring 11 x 6 mm. Additional smaller calculi in the rig ht also present. Nonobstructing left renal calculus measuring 2 mm. IMPRESSION: 1. No evidence of thoracic or lumbar spine fracture. There is fixation hardware in the cervical and lumbar spine which appears intact. 2. Multilevel disc degeneration changes worse in the lower thoracic spine.
--- NOTE | 2023-01-24 22:48 | CT ---
EXAMINATION TYPE: CT brain cspine wo con CT DLP: 639.6 mGycm, Automated exposure control for dose reduction was used. DATE OF EXAM: 01/24/2023 10:16 PM COMPARISON: CT 09/06/2022 CLINICAL INDICATION:Female, 77 years old with history of trauma; syncopal episode TECHNIQUE: Brain: Multiple axial CT images of the brain were obtained without IV contrast. Cspine: Axial CT images from the skull base to the inferior aspect of T2 we obtained without intraven ous contrast. Coronal and sagittal reformatted images were also reviewed. FINDINGS: Brain: Extra-axial spaces: No abnormal extra-axial fluid collections. Ventricular system: Within normal limits Cerebral parenchyma: No acute intraparenchymal hemorrhage or mass effect. The villagomez-white junction is well differentiated. Cerebellum: Unremarkable. Mass effect: No evidence of midline shift. Intracranial vasculature: Atherosclerotic calcifications of the intracranial vessels. Soft tissues: Normal. Calvarium/osseous structures: No depressed skull fracture. Paranasal sinuses and mastoid air cells: Paranasal sinus disease most pronounced in the maxillary sin uses. Visualized orbits: Bilaterally aphakia. Cervical spine: Fracture: None. Osseous structures: Multilevel degenerative disc disease changes with endplate spurring and disc oste ophyte complex's. Fixation hardware extending from 4 to C7. Hardware appears intact. Vertebral alignment: Within normal limits. Spinal canal/Neural Foramina: No evidence of significant spinal canal narrowing. No evidence for sign ificant neural foraminal stenosis. Neck soft tissues: Prevertebral soft tissues are within normal limits. Other: The airway is patent. The lung apices are clear. IMPRESSION: 1. No acute intracranial process. 2. No evidence of cervical spine fracture. 3. Postsurgical changes to the cervical spine with hardware in place. There is mild multilevel degen erative disc disease. 4. Layering secretions within the maxillary sinuses correlate for paranasal sinus disease.
--- NOTE | 2023-01-24 22:53 | CT ---
EXAMINATION TYPE: CT abdomen pelvis wo con CT DLP: 1387 mGycm, Automated exposure control for dose reduction was used. DATE OF EXAM: 01/24/2023 10:17 PM COMPARISON: CT abdomen pelvis most recent from 09/12/2022 CLINICAL INDICATION:Female, 77 years old with history of GI bleed; gi bleed symptoms TECHNIQUE: Axial CT of the abdomen and pelvis. Sagittal and coronal reformats were created on a [employer] workstation. Contrast used: None Oral contrast used: without Oral Contrast FINDINGS: LOWER CHEST: Coronary artery atherosclerosis. ABDOMEN LIVER: Unremarkable GALLBLADDER AND BILE DUCTS: Unremarkable. PANCREAS: Unremarkable. SPLEEN: Unremarkable. ADRENAL GLANDS: Unremarkable. KIDNEYS AND URETERS: Right 11 x 6 mm renal calculus. Additional left 3 mm calculus and other smaller right renal calculi which are nonobstructing. No obstructive uropathy visualized. PELVIS BLADDER: Unremarkable REPRODUCTIVE: Left ovarian 2.3 x 2.0 cm cyst. The uterus is surgically absent. ABDOMEN & PELVIS STOMACH AND BOWEL: No evidence of bowel obstruction. Few scattered colonic diverticula. PERITONEUM/RETROPERITONEUM: No evidence of pneumoperitoneum or free fluid. VASCULATURE: Mild atherosclerotic calcifications are present throughout the abdominal aorta and its b ranches. No evidence of aortic aneurysm. MUSCULOSKELETAL: Spine same day for findings regarding the spine. No evidence for fracture of the rem aining osseous structures. There is right hip arthroplasty changes with hardware intact. LYMPH NODES: No gross evidence for lymphadenopathy. SOFT TISSUE/ABDOMINAL WALL: Fat-containing umbilical hernia. IMPRESSION: 1. Limited evaluation without multiphase gastrointestinal hemorrhage protocol with IV contrast. No o bvious gastrointestinal hemorrhage. Consider tagged red blood cell scan if there is concern for hemor rhage. 2. Nonobstructing bilateral renal calculi. 3. Left ovarian 2.3 cm cyst. 4. Mild colonic diverticulosis.
--- NOTE | 2023-01-24 22:58 | ED ---
General Adult HPI - General Chief complaint: GI Bleed Stated complaint: GI Bleed Source: EMS Mode of arrival: EMS Limitations: no limitations - History of Present Illness Initial comments: This is a 77-year-old female with a past medical history including atrial fibrillation on Coumadin, congestive heart failure and hypertension presents emergency department via EMS after syncopal episode and a GI bleed. The patient stated that she had multiple episodes of bright red blood in the toilet bowl associated with clots throughout the day today. The patient stated that she went to take a shower to clean off when she had a syncopal episode while sitting on a stool in the shower. The patient stated that she did hit her head and did lose consciousness. The patient on arrival complained of lightheadedness as well as pain in the left leg and lumbar spine. The patient did state that she has never had bleeding per rectum like this before and stated that she had multiple, unable to count, the number of bloody bowel movements. The patient on examination did not have any acute abdominal pain however stated that when it is palpated it does produce pain in the left side. The patient denied any other acute pain or complaints at this time. - Related Data Home Medications Medication Instructions Recorded Confirmed Pantoprazole Sodium [Protonix] 40 mg PO BID 05/14/14 01/24/23 Glucosam/Chond/Hyalu/Cf Borate 1 tab PO DAILY 05/02/20 01/24/23 [Move Free Chrends Tablet] Cholecalciferol [Vitamin D3 (25 25 mcg PO DAILY 06/16/22 01/24/23 Mcg = 1000 Iu)] Cyanocobalamin (Vitamin B-12) 1,000 mcg PO DAILY 06/16/22 01/24/23 [Vitamin B-12] DULoxetine HCL [Cymbalta] 30 mg PO DAILY 08/03/22 01/24/23 Leflunomide [Arava] 20 mg PO DAILY 08/03/22 01/24/23 Lysine 500 mg PO DAILY 08/03/22 01/24/23 Warfarin Sodium 4 mg PO DIRECTED 12/07/22 01/24/23 Amiodarone [Cordarone] 200 mg PO DAILY 01/24/23 01/24/23 Metoprolol Succinate (ER) [Toprol 25 mg PO DAILY 01/24/23 01/24/23 XL] Pregabalin [Lyrica] 100 mg PO BID 01/24/23 01/24/23 Spironolactone [Aldactone] 12.5 mg PO DAILY 01/24/23 01/24/23 Tiotropium 18 Mcg/Puff [Spiriva] 1 puff INHALATION RT-DAILY 01/24/23 01/24/23 Previous Rx's Medication Instructions Recorded Ondansetron Odt [Zofran ODT] 4 mg PO Q8HR PRN #10 tab 09/03/22 Ipratropium-Albuterol Nebulize 3 ml INHALATION RT-QID PRN each 09/18/22 [Duoneb 0.5 mg-3 mg/3 ml Soln] Furosemide [Lasix] 20 mg PO DAILY #30 tab 12/12/22 Magnesium Oxide [Mag-Ox] 400 mg PO DAILY #30 tab 12/12/22 lisinopriL [Zestril] 2.5 mg PO HS #30 tab 12/12/22 Allergies Allergy/AdvReac Type Severity Reaction Status Date / Time cephalexin monohydrate Allergy Rash/Hives Verified 01/24/23 21:57 [From Keflex] diphenhydramine HCl Allergy SWELLING Verified 01/24/23 21:57 [From Benadryl] OF TONGUE, SOB enoxaparin [From Lovenox] Allergy Rash/Hives Verified 01/24/23 21:57 Penicillins Allergy SWELLING, Verified 01/24/23 21:57 HIVES aspirin AdvReac EXCESS Verified 01/24/23 21:57 BLEEDING garlic AdvReac Nausea Verified 01/24/23 21:57 milk AdvReac Abdominal Verified 01/24/23 21:57 Pain morphine AdvReac Vomiting Verified 01/24/23 21:57 sulfamethoxazole AdvReac Nausea & Verified 01/24/23 21:57 [From Bactrim] Vomiting trimethoprim [From Bactrim] AdvReac Nausea & Verified 01/24/23 21:57 Vomiting milk chocolate AdvReac Nausea Uncoded 12/06/22 15:14 Review of Systems ROS Statement: Those systems with pertinent positive or pertinent negative responses have been documented in the HPI. ROS Other: All systems not noted in ROS Statement are negative. Past Medical History Past Medical History: Atrial Flutter, Asthma, Cancer, COPD, CVA/TIA, GERD/Reflux, GI Bleed, Hypertension, Memory Impairment, Myocardial Infarction (MD), Osteoarthritis (OA), Rheumatoid Arthritis (RA) Additional Past Medical History / Comment(s): Chronic cough. Back pain, migraines. Occasional slight difficulty with swallowing. 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 Hx kidney stones, "kidney function low". Last Myocardial Infarction Date:: 2012 History of Any Multi-Drug Resistant Organisms: None Reported Past Surgical History: Back Surgery, Cholecystectomy, Heart Catheterization, Hysterectomy, Joint Replacement, Orthopedic Surgery Additional Past Surgical History / Comment(s): RODS & CAGES IN BACK, RIGHT HIP REPLACEMENT, PARTIAL THYROIDECTOMY, BILATERAL KNEE REPLACEMENTS, NECK SURGERY WITH LIDIA AND CAGES, MELANOMA REMOVED FROM FACE X4, REPAIR OF HEMATOMA/FEMORAL ARTERY AFTER HEART CATHETERIZATION,rt foot bone spur removed Past Anesthesia/Blood Transfusion Reactions: Previous Problems w/ Anesthesia, Motion Sickness, Postoperative Nausea & Vomiting (PONV) Additional Past Anesthesia/Blood Transfusion Reaction / Comment(s): Hard to wake up. Past Psychological History: Depression Smoking Status: Never smoker Past Alcohol Use History: None Reported Past Drug Use History: None Reported - Past Family History Sister(s) Family Medical History: Cancer Brother(s) Family Medical History: Cancer Mother Family Medical History: Myocardial Infarction (MD) Additional Family Medical History / Comment(s): Mother of a MD at the age of 76yrs. Father History Unknown: Yes Family Medical History: Chest Pain / Angina General Exam Limitations: no limitations General appearance: alert, in no apparent distress Head exam: Present: atraumatic, normocephalic, normal inspection Eye exam: Present: normal appearance, PERRL Pupils: Present: normal accommodation ENT exam: Present: normal exam, normal oropharynx, mucous membranes moist Neck exam: Present: normal inspection Respiratory exam: Present: normal lung sounds bilaterally Cardiovascular Exam: Present: regular rate, irregular rhythm GI/Abdominal exam: Present: tenderness (Mild tenderness to palpation notes the left upper and left lower quadrants) Rectal exam: Present: bloody stool Extremities exam: Present: normal inspection, tenderness (Tenderness noted to the proximal left lower leg) Back exam: Present: normal inspection, tenderness (Midline tenderness noted to the thoracic and lumbar spine) Neurological exam: Present: alert, oriented X3, CN II-XII intact Psychiatric exam: Present: normal affect, normal mood Skin exam: Present: warm, dry Course Vital Signs 01/24/23 01/24/23 01/24/23 21:00 21:43 22:38 Temperature 97.6 F Pulse Rate 81 63 73 Respiratory 18 22 18 Rate Blood Pressure 109/61 94/57 116/44 O2 Sat by Pulse 98 95 98 Oximetry 01/24/23 22:56 Temperature Pulse Rate 68 Respiratory 16 Rate Blood Pressure 114/65 O2 Sat by Pulse Oximetry EKG Findings - EKG Comments: EKG Findings:: An EKG was obtained and was interpreted by myself showing a rate of 89, QRS duration of 146, QTC of 458. This EKG showed an atrial fibrillation with a left bundle branch block however there was no ST segment elevation or depression noted. There was significant artifact secondary to patient motion. Medical Decision Making - Medical Decision Making Was pt. sent in by a medical professional or institution (, ASHLIE, MACHINE ATTENDANT, urgent care, hospital, or prison...) When possible be specific @ -No Did you speak to anyone other than the patient for history (EMS, parent, family, police, friend...)? What history was obtained from this source @ -Yes, Did you review nursing and triage notes (agree or disagree)? Why? @ -I reviewed and agree with nursing and triage notes Were old charts reviewed (outside hosp., previous admission, EMS record, old EKG, old radiological studies, urgent care reports/EKG's, prison records)? Report findings @ -No old charts were reviewed Differential Diagnosis (chest pain, altered mental status, abdominal pain women, abdominal pain men, vaginal bleeding, weakness, fever, dyspnea, syncope, headache, dizziness, GI bleed, back pain, seizure, CVA, palpatations, mental health)? @ -Acute GI bleed, diverticulitis, syncope, symptomatically anemia EKG interpreted by me (3pts min.). @ -As above X-rays interpreted by me (1pt min.). @ -Chest x-ray, pelvis x-ray, left tib-fib x-ray and right humeral x-ray were obtained and were interpreted by myself showing no acute fractures. CT interpreted by me (1pt min.). @ -CT head and CT C-spine were obtained and were interpreted by myself showing no acute intracranial process. There is no evidence of cervical spine fracture. CT of the thoracic and lumbar spine without contrast was obtained and was interpreted by myself showing no evidence of thoracic or lumbar spine fracture. There is fixation hardware in the cervical and lumbar spine which appears intact. CT abdomen and pelvis without contrast was ordered secondary to the patient's kidney function and was interpreted by myself and showed limited ev aluation without multiphasic GI hemorrhage protocol with IV contrast. There was a nonobstructing bilateral renal calculi. Left ovarian cyst measuring 2.3 cm. There was mild colonic diverticulosis without diverticulitis. U/S interpreted by me (1pt. min.). @ -None done What testing was considered but not performed or refused? (CT, X-rays, U/S, labs)? Why? @ -None What meds were considered but not given or refused? Why? @ -None Did you discuss the management of the patient with other professionals (professionals i.e. DrNani, PA, MACHINE ATTENDANT, lab, RT, psych nurse, social group worker, chemical instrumentation officer, teacher, banking services officer, rifle case repairer)? Give summary @ -Admitting physician, Dr. Martinez. Due to the patient's active GI bleed, the hot plate plywood press laborer, Dr. Prince was contacted however recommended admission to the floor and did not need ICU placement at this time. Was smoking cessation discussed for >3mins.? @ -No Was critical care preformed (if so, how long)? @ -Yes, see above Were there social determinants of health that impacted care today? How? (Homelessness, low income, unemployed, alcoholism, drug addiction, transportation, low edu. Level, literacy, decrease access to med. care, retirement, rehab)? @ -No Was there de-escalation of care discussed even if they declined (Discuss DNR or withdrawal of care, Hospice)? DNR status @ -No What co-morbidities impacted this encounter? (DM, HTN, Smoking, COPD, CAD, Cancer, CVA, ARF, Chemo, Hep., AIDS, mental health diagnosis, sleep apnea, morbid obesity)? @ -Congestive heart failure, age fibrillation on Coumadin Was patient admitted / discharged? Hospital course, mention meds given and route, prescriptions, significant lab abnormalities, going to OR and other pertinent info. @ -The patient was seen and evaluated emergency department. Physical exam, the patient was resting in bed in minimal distress. Vital signs were stable. Due to the patient's GI bleeding however the patient had trauma secondary to a syncopal episode therefore all imaging was obtained per trauma protocol. All imaging was negative for any acute fractures. The patient likely had a syncopal episode secondary to acute blood loss secondary to GI bleeding. The patient was cleared him a trauma perspective. Laboratory workup was significant for an HEENA, elevated INR of 6.8 and hemoglobin of 9.4. Due to the patient's elevated INR in the setting of a GI bleed, the patient was given K Centra as well as vitamin K. Once the vitamin K was started, the patient had some mild soreness of breath therefore it was stopped. The rest of the K Centra was given. Due to the patient's GI bleed on Coumadin, HEENA and somatic anemia, the patient will be admitted. The hot plate plywood press laborer stated that the patient did not need admission to the ICU therefore could be admitted to the floor with GI on consult. The patient was admitted in stable condition. Undiagnosed new problem with uncertain prognosis? @ -No Drug Therapy requiring intensive monitoring for toxicity (Heparin, Nitro, Insulin, Cardizem)? @ -No Were any procedures done? @ -No Diagnosis/symptom? @ -GI bleed on Coumadin Acute, or Chronic, or Acute on Chronic? @ -Acute Uncomplicated (without systemic symptoms) or Complicated (systemic symptoms)? @ -Complicated Side effects of treatment? @ -No Exacerbation, Progression, or Severe Exacerbation? @ -No Poses a threat to life or bodily function? How? (Chest pain, USA, MD, pneumonia, PE, COPD, DKA, ARF, appy, cholecystitis, CVA, Diverticulitis, Homicidal, Suicidal, threat to staff... and all critical care pts) @ -Yes, continue bleeding can cause continued symptoms of anemia and possible permanent damage and Diagnosis/symptom? @ -HEENA Acute, or Chronic, or Acute on Chronic? @ -Acute Uncomplicated (without systemic symptoms) or Complicated (systemic symptoms)? @ -Complicated Side effects of treatment? @ -none Exacerbation, Progression, or Severe Exacerbation] @ -no Poses a threat to life or bodily function? @ -Yes, permanent kidney damage can result - Lab Data Result diagrams: 01/24/23 20:47 01/24/23 20:47 Lab Results 01/24/23 01/24/2301/24/23 Range/Units 20:40 20:47 20:47 WBC 7.2 (3.8-10.6) k/uL RBC 3.21 L (3.80-5.40) m/uL Hgb 9.4 L (11.4-16.0) gm/dL Hct 29.3 L (34.0-46.0) % MCV 91.4 (80.0-100.0) fL MCH 29.4 (25.0-35.0) pg MCHC 32.2 (31.0-37.0) g/dL RDW 17.7 H (11.5-15.5) % Plt Count 272 (150-450) k/uL MPV 9.1 Neutrophils % 55 % Lymphocytes % 23 % Monocytes % 11 % Eosinophils % 7 % Basophils % 0 % Neutrophils # 4.0 (1.3-7.7) k/uL Lymphocytes # 1.6 (1.0-4.8) k/uL Monocytes # 0.8 (0-1.0) k/uL Eosinophils # 0.5 (0-0.7) k/uL Basophils # 0.0 (0-0.2) k/uL Anisocytosis Slight PT 67.9 H (9.0-12.0) sec INR 6.8 H* (<1.2) APTT 61.2 H (22.0-30.0) sec Sodium (137-145) mmol/L Potassium (3.5-5.1) mmol/L Chloride (98-107) mmol/L Carbon Dioxide (22-30) mmol/L Anion Gap mmol/L BUN (7-17) mg/dL Creatinine (0.52-1.04) mg/dL Est GFR (CKD-EPI)AfAm (>60 ml/min/1.73 sqM) Est GFR (CKD-EPI)NonAf (>60 ml/min/1.73 sqM) Glucose (74-99) mg/dL Calcium (8.4-10.2) mg/dL Total Bilirubin (0.2-1.3) mg/dL AST (14-36) U/L ALT (4-34) U/L Alkaline Phosphatase (38-126) U/L Troponin I (0.000-0.034) ng/mL Total Protein (6.3-8.2) g/dL Albumin (3.5-5.0) g/dL Blood Type A Negative Blood Type Recheck A Neg Bld Type Recheck Status No Antibody Screen NEGATIVE Spec Expiration Date 01/27/2023233901/24/23 01/24/23 Range/Units 20:47 20:47 WBC (3.8-10.6) k/uL RBC (3.80-5.40) m/uL Hgb (11.4-16.0) gm/dL Hct (34.0-46.0) % MCV (80.0-100.0) fL MCH (25.0-35.0) pg MCHC (31.0-37.0) g/dL RDW (11.5-15.5) % Plt Count (150-450) k/uL MPV Neutrophils % % Lymphocytes % % Monocytes % % Eosinophils % % Basophils % % Neutrophils # (1.3-7.7) k/uL Lymphocytes # (1.0-4.8) k/uL Monocytes # (0-1.0) k/uL Eosinophils # (0-0.7) k/uL Basophils # (0-0.2) k/uL Anisocytosis PT (9.0-12.0) sec INR (<1.2) APTT (22.0-30.0) sec Sodium 137 (137-145) mmol/L Potassium 4.9 (3.5-5.1) mmol/L Chloride 106 (98-107) mmol/L Carbon Dioxide 17 L (22-30) mmol/L Anion Gap 14 mmol/L BUN 56 H (7-17) mg/dL Creatinine 2.48 H (0.52-1.04) mg/dL Est GFR (CKD-EPI)AfAm 21 (>60 ml/min/1.73 sqM) Est GFR (CKD-EPI)NonAf 18 (>60 ml/min/1.73 sqM) Glucose 113 H (74-99) mg/dL Calcium 9.0 (8.4-10.2) mg/dL Total Bilirubin 0.5 (0.2-1.3) mg/dL AST 27 (14-36) U/L ALT 20 (4-34) U/L Alkaline Phosphatase 75 (38-126) U/L Troponin I <0.012 (0.000-0.034) ng/mL Total Protein 7.7 (6.3-8.2) g/dL Albumin 4.1 (3.5-5.0) g/dL Blood Type Blood Type Recheck Bld Type Recheck Status Antibody Screen Spec Expiration Date Critical Care Time Critical Care Time: Yes Total Critical Care Time: 35 Disposition Clinical Impression: GI bleed, HEENA (acute kidney injury) Disposition: ADMITTED IP TO THIS [facility] Condition: Stable Is patient prescribed a controlled substance at d/c from ED?: No Referrals: Dex Mcneal MD [Primary Care Provider] - 1-2 days Time of Disposition: 22:30 Decision to Admit Reason: Admit from EC Decision Date: 01/24/23 Decision Time: 22:30
[2023-01-24] MEDS ORDERED: NALOXONE 0.4 MG/ML 1 ML VIAL IV PRN (23:56)
[2023-01-25] MEDS ORDERED: HUMAN PROTHROMBIN COMPLX 500 UNIT/16 ML VIAL IV ONE (00:15)
[2023-01-25 03:26] LABS: Anisocytosis Slight; HCT 25.5 % (34.0-46.0); HGB 8.2 gm/dL (11.4-16.0); MCH 29.7 pg (25.0-35.0); MCHC 32.2 g/dL (31.0-37.0); MCV 92.3 fL (80.0-100.0); Mean Platelet Volume 9.1; Platelet Count 218 k/uL (150-450); RBC 2.77 m/uL (3.80-5.40); RDW 17.9 % (11.5-15.5); WBC 6.5 k/uL (3.8-10.6)
--- NOTE | 2023-01-25 04:01 | P.HPIM ---
History of Present Illness H&P Date: 01/25/23 Chief Complaint: syncope 77 year old female with afib on coumadin she is coming in after experiencing an episode of syncope while taking a shower, she hit everything in her body , her helped her out and brought her for evaluation . she denies any headache, or focal neuro deficits at this time she has experienced melena for the past 10 days , then started having bright red blood per rectum today , initially mixed with diarrhea and then thought it s related to her hemorrhoids. she had at least 8 large bloody bowel movements today. she was supposed to get her INR checked tomorrow, she is on coumadin for afib. she has had her colonoscopy 2 years ago , no abnormalities reported to her . she currently feels weak, and scared to stand up so she does not feel lightheaded. this has never happened to her in the past. she denies smoking, drugs or alcohol she denies any nausea , vomiting, abd pain , or changes in urinary habits. Review of Systems Pertinent positives as noted in HPI. All other systems were reviewed and are negative Past Medical History Past Medical History: Atrial Flutter, Asthma, Cancer, COPD, CVA/TIA, GERD/Reflux, GI Bleed, Hypertension, Memory Impairment, Myocardial Infarction (AR), Osteoarthritis (OA), Rheumatoid Arthritis (RA) Additional Past Medical History / Comment(s): Chronic cough. Back pain, migraines. Occasional slight difficulty with swallowing. 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 Hx kidney stones, "kidney function low". Last Myocardial Infarction Date:: 2012 History of Any Multi-Drug Resistant Organisms: None Reported Past Surgical History: Back Surgery, Cholecystectomy, Heart Catheterization, Hysterectomy, Joint Replacement, Orthopedic Surgery Additional Past Surgical History / Comment(s): RODS & CAGES IN BACK, RIGHT HIP REPLACEMENT, PARTIAL THYROIDECTOMY, BILATERAL KNEE REPLACEMENTS, NECK SURGERY WITH LIDIA AND CAGES, MELANOMA REMOVED FROM FACE X4, REPAIR OF HEMATOMA/FEMORAL ARTERY AFTER HEART CATHETERIZATION,rt foot bone spur removed Past Anesthesia/Blood Transfusion Reactions: Previous Problems w/ Anesthesia, Motion Sickness, Postoperative Nausea & Vomiting (PONV) Additional Past Anesthesia/Blood Transfusion Reaction / Comment(s): Hard to wake up. Past Psychological History: Depression Smoking Status: Never smoker Past Alcohol Use History: None Reported Past Drug Use History: None Reported - Past Family History Sister(s) Family Medical History: Cancer Brother(s) Family Medical History: Cancer Mother Family Medical History: Myocardial Infarction (AR) Additional Family Medical History / Comment(s): Mother of a AR at the age of 76yrs. Father History Unknown: Yes Family Medical History: Chest Pain / Angina Medications and Allergies Home Medications Medication Instructions Recorded Confirmed Type Pantoprazole Sodium [Protonix] 40 mg PO BID 05/14/14 01/24/23 History Glucosam/Chond/Hyalu/Cf Borate 1 tab PO DAILY 05/02/20 01/24/23 History [Move Free Joint Health Tablet] Cholecalciferol [Vitamin D3 (25 25 mcg PO DAILY 06/16/22 01/24/23 History Mcg = 1000 Iu)] Cyanocobalamin (Vitamin B-12) 1,000 mcg PO DAILY 06/16/22 01/24/23 History [Vitamin B-12] DULoxetine HCL [Cymbalta] 30 mg PO DAILY 08/03/22 01/24/23 History Leflunomide [Arava] 20 mg PO DAILY 08/03/22 01/24/23 History Lysine 500 mg PO DAILY 08/03/22 01/24/23 History Ondansetron Odt [Zofran ODT] 4 mg PO Q8HR PRN #10 tab 09/03/22 01/24/23 Rx Ipratropium-Albuterol Nebulize 3 ml INHALATION RT-QID PRN each 09/18/22 01/24/23 Rx [Duoneb 0.5 mg-3 mg/3 ml Soln] Warfarin Sodium 4 mg PO DIRECTED 12/07/22 01/24/23 History Furosemide [Lasix] 20 mg PO DAILY #30 tab 12/12/22 01/24/23 Rx Magnesium Oxide [Mag-Ox] 400 mg PO DAILY #30 tab 12/12/22 01/24/23 Rx lisinopriL [Zestril] 2.5 mg PO HS #30 tab 12/12/22 01/24/23 Rx Amiodarone [Cordarone] 200 mg PO DAILY 01/24/23 01/24/23 History Metoprolol Succinate (ER) [Toprol 25 mg PO DAILY 01/24/23 01/24/23 History XL] Pregabalin [Lyrica] 100 mg PO BID 01/24/23 01/24/23 History Spironolactone [Aldactone] 12.5 mg PO DAILY 01/24/23 01/24/23 History Tiotropium 18 Mcg/Puff [Spiriva] 1 puff INHALATION RT-DAILY 01/24/23 01/24/23 History Allergies Allergy/AdvReac Type Severity Reaction Status Date / Time cephalexin monohydrate Allergy Rash/Hives Verified 01/24/23 21:57 [From Keflex] diphenhydramine HCl Allergy SWELLING Verified 01/24/23 21:57 [From Benadryl] OF TONGUE, SOB enoxaparin [From Lovenox] Allergy Rash/Hives Verified 01/24/23 21:57 Penicillins Allergy SWELLING, Verified 01/24/23 21:57 HIVES aspirin AdvReac EXCESS Verified 01/24/23 21:57 BLEEDING garlic AdvReac Nausea Verified 01/24/23 21:57 milk AdvReac Abdominal Verified 01/24/23 21:57 Pain morphine AdvReac Vomiting Verified 01/24/23 21:57 sulfamethoxazole AdvReac Nausea & Verified 01/24/23 21:57 [From Bactrim] Vomiting trimethoprim [From Bactrim] AdvReac Nausea & Verified 01/24/23 21:57 Vomiting milk chocolate AdvReac Nausea Uncoded 12/06/22 15:14 Physical Exam Vitals: Vital Signs Temp Pulse Resp BP Pulse Ox 01/25/23 01:31 71 16 98/42 97 01/24/23 22:56 68 16 114/65 01/24/23 22:38 73 18 116/44 98 01/24/23 21:43 63 22 94/57 95 01/24/23 21:00 97.6 F 81 18 109/61 98 Intake and Output 01/24/23 01/24/23 01/25/23 14:59 22:59 06:59 Other: Weight 60.328 kg Constitutional: No acute distress, conversant, pleasant Eyes: Anicteric sclerae, moist conjunctiva, Pupils equal round reactive to light ENMT: NC/AT Oropharynx clear, no erythema, or exudates Neck: Supple, no masses, or JVD No carotid bruits No thyromegaly Lungs: Clear to auscultation Clear to percussion Normal respiratory effort, no accessory muscle use Cardiovascular: Heart regular in rate and rhythm, No murmurs, gallops, or rubs No peripheral edema Abdominal: Soft Nontender, no guarding, rebound or rigidity Abdomen moving with respiration Normoactive bowel sounds No hepatomegaly, No splenomegaly No palpable mass No abdominal wall hernia noted Skin: Normal temperature, tone, texture, turgor No induration No subcutaneous nodules No rash, lesions No ulcers Extremities: No digital cyanosis No clubbing Pedal pulses intact and symmetrical Radial pulses intact and symmetrical No calf tenderness Psychiatric: Alert and oriented to person, place and time Appropriate affect fair judgement Neuro Muscles Strength 4/5 in all 4 extremities Sensation to light touch grossly present throughout Cranial nerves II-XII grossly intact Lymphatics: no palpable cervical or supraclavicular lymph nodes Results CBC & Chem 7: 01/25/23 02:51 01/24/23 20:47 Labs: Abnormal Lab Results - Last 24 Hours (Table) 01/24/23 01/24/23 01/24/23 Range/Units 20:47 20:47 20:47 RBC 3.21 L (3.80-5.40) m/uL Hgb 9.4 L (11.4-16.0) gm/dL Hct 29.3 L (34.0-46.0) % RDW 17.7 H (11.5-15.5) % PT 67.9 H (9.0-12.0) sec INR 6.8 H* (<1.2) APTT 61.2 H (22.0-30.0) sec Carbon Dioxide 17 L (22-30) mmol/L BUN 56 H (7-17) mg/dL Creatinine 2.48 H (0.52-1.04) mg/dL Glucose 113 H (74-99) mg/dL Assessment and Plan Assessment: 77 year old female with afib on coumadin, presented due to lower GI bleeding and syncope , I discussed the case with ED doc, and I accepted the admission for close monitoring oF GI bleeding , possible blood transfusion and GI evaluation in AM , with anticipated length of stay > 2 midnights acute symptomatic blood loss anemia secondary to lower GI bleeding supratheraputic INR 6.8 syncope plan monitor hgb q6 hrs Hgb 9.6 baseline 12 transfuse if continue to have bleeding , or symptomatic or Hgb < 7 s/p vitamin K and K centra recheck PT/INR after monitor vital signs , and playground monitor protonix 40 mg PO BID Brain CT negative for acute pathology GI consultation CT abd showed left ovarian cyst 2.3 cm , and bilateral renal calculi non obstructing chronic conditions afib , hold coumadin due to GI bleeding continue amiodarone hypertension continue metoprolol , lisinopril full code DVT PPX mechanical secondary to gi bleeding
[2023-01-25] MEDS: SODIUM CHLORIDE 0.9% 1,000 ML IV SCH ×2 (05:10→17:48)
[2023-01-25 07:05] LABS: Anisocytosis Slight; HGB 8.2 gm/dL (11.4-16.0); MCH 29.2 pg (25.0-35.0); MCHC 31.5 g/dL (31.0-37.0); MCV 92.6 fL (80.0-100.0); Platelet Count 207 k/uL (150-450); RDW 17.9 % (11.5-15.5); WBC 5.5 k/uL (3.8-10.6)
[2023-01-25 07:17] LABS: INR 1.8 (<1.2); Prothrombin Time 18.1 sec (9.0-12.0)
[2023-01-25] MEDS: IPRATROPIUM 0.5 MG/2.5 ML NEBU INHALATION SCH ×4 (08:48→21:55)
[2023-01-25] MEDS: AMIODARONE 200 MG TAB PO SCH (10:22)
[2023-01-25] MEDS: DULoxetine HCL 30 MG CAPSULE.DR PO SCH (10:22)
[2023-01-25] MEDS: PANTOPRAZOLE 40 MG TABLET PO SCH ×2 (10:22→17:47)
[2023-01-25] MEDS: LEFLUNOMIDE 20 MG TAB PO SCH (10:22)
[2023-01-25] MEDS: METOPROLOL SUCCINATE (ER) 25 MG TAB.ER.24H PO SCH (10:23)
[2023-01-25 10:25] LABS: Calcium 8.3 mg/dL (8.4-10.2); Magnesium 2.3 mg/dL (1.6-2.3); Potassium 4.1 mmol/L (3.5-5.1)
--- NOTE | 2023-01-25 12:03 | P.PN ---
Subjective Progress Note Date: 01/25/23 Hospitalist follow-up note: Patient seen and examined at bedside. Patient states that the bleeding from the rectum has stopped. INR is now 1.8 from 6.8. Gastroenterology did see the patient. GI bleed is likely due to supratherapeutic INR with history of diverticulosis. Diet will be advanced. Continue to monitor CBC. Creatinine improving at 1.7 from 2.48. Objective - Vital Signs Vital signs: Vital Signs Temp 97.3 F L 01/25/23 08:00 Pulse 71 01/25/23 08:00 Resp 18 01/25/23 08:00 BP 100/47 01/25/23 08:00 Pulse Ox 100 01/25/23 08:00 FiO2 Intake & Output 01/24/23 01/25/23 01/25/23 18:59 06:59 18:59 Weight 60.328 kg 60.328 kg - Labs CBC & Chem 7: 01/25/23 05:34 01/25/23 09:33 Labs: Abnormal Lab Results - Last 24 Hours (Table) 01/24/23 01/24/23 01/24/23 Range/Units 20:47 20:47 20:47 RBC 3.21 L (3.80-5.40) m/uL Hgb 9.4 L (11.4-16.0) gm/dL Hct 29.3 L (34.0-46.0) % RDW 17.7 H (11.5-15.5) % PT 67.9 H (9.0-12.0) sec INR 6.8 H* (<1.2) APTT 61.2 H (22.0-30.0) sec Chloride (98-107) mmol/L Carbon Dioxide 17 L (22-30) mmol/L BUN 56 H (7-17) mg/dL Creatinine 2.48 H (0.52-1.04) mg/dL Glucose 113 H (74-99) mg/dL Calcium (8.4-10.2) mg/dL 01/25/23 01/25/23 01/25/23 Range/Units 02:51 05:34 05:34 RBC 2.77 L 2.80 L (3.80-5.40) m/uL Hgb 8.2 L 8.2 L (11.4-16.0) gm/dL Hct 25.5 L 26.0 L (34.0-46.0) % RDW 17.9 H 17.9 H (11.5-15.5) % PT 18.1 H (9.0-12.0) sec INR 1.8 H (<1.2) APTT (22.0-30.0) sec Chloride (98-107) mmol/L Carbon Dioxide (22-30) mmol/L BUN (7-17) mg/dL Creatinine (0.52-1.04) mg/dL Glucose (74-99) mg/dL Calcium (8.4-10.2) mg/dL 01/25/23 Range/Units 09:33 RBC (3.80-5.40) m/uL Hgb (11.4-16.0) gm/dL Hct (34.0-46.0) % RDW (11.5-15.5) % PT (9.0-12.0) sec INR (<1.2) APTT (22.0-30.0) sec Chloride 111 H (98-107) mmol/L Carbon Dioxide (22-30) mmol/L BUN 42 H (7-17) mg/dL Creatinine 1.70 H (0.52-1.04) mg/dL Glucose (74-99) mg/dL Calcium 8.3 L (8.4-10.2) mg/dL
--- NOTE | 2023-01-25 13:24 | P.CONS ---
History of Present Illness - Reason for Consult Consult date: 01/25/23 GI bleed Requesting physician: Shirley Vázquez - Chief Complaint Bloody stools - History of Present Illness This is a pleasant 77-year-old female who presented to the emergency department with complaints of multiple bloody bowel movements throughout the evening, along with syncope and fall. Patient states that she had 8 bloody bowel movements, without any abdominal pain, cramping, nausea or vomiting. She has a past medical history including CHF, atrial fibrillation on Coumadin, COPD, TIA, GI bleed, hypertension, rheumatoid arthritis, iron deficiency anemia and dive rticulosis. Patient's INR was supratherapeutic on admission at 6.8. She was given vitamin K 10 mg. A repeat INR was ordered, patient is 1.8. She states bleeding has stopped since she has come into the emergency department. She denies any previous history of GI bleed. Last EGD 08/04/2022 completed for epigastric pain, chronic diarrhea intermittent dysphagia and iron deficiency anemia with findings of mild antral gastritis with no evidence of esophagitis or esophageal stricture, and no bleeding. Patient believes colonoscopy was around the same time however no report available at this time. Labs WBC 5.5 hemoglobin 8.2 hematocrit 26 platelet count 207,000 INR 1.8 sodium 141 potassium 4.1 BUN 42 creatinine 1.7 total bilirubin 0.5 AST 27 ALT [address] abdomen and pelvis without contrast reported limited evaluation. No obvious GI hemorrhage. Nonobstructing bilateral renal calculi. Left ovarian 2.3 cm cyst, mild colonic diverticulosis. Review of Systems REVIEW OF SYSTEMS: CARDIOPULMONARY: No chest pain or shortness of breath. Gastrointestinal: No abdominal pain or cramping. No nausea or vomiting. No hematemesis, coffee-ground emesis. Brown-colored stools 8. GENITOURINARY: No dysuria or hematuria. MUSCULOSKELETAL: Reports normal range of motion. Patient sustained a fall at home with some bruising and complaints of areas of multiple pain. SKIN: No rashes. No jaundice. ENDOCRINE: No chills, fevers. No excessive weight gain or loss. No polydipsia or polyuria. PSYCHIATRIC: Unremarkable. NEUROLOGY: No change in mental status. Dizziness, syncope at home with follow.. ENT: Vision unremarkable. CONSTITUTIONAL: No recent weight loss. No fever, chills, night sweats. Past Medical History Past Medical History: Atrial Flutter, Asthma, Cancer, COPD, CVA/TIA, GERD/Reflux, GI Bleed, Hypertension, Memory Impairment, Myocardial Infarction (ID), Osteoarthritis (OA), Rheumatoid Arthritis (RA) Additional Past Medical History / Comment(s): Chronic cough. Back pain, migraines. Occasional slight difficulty with swallowing. 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 Hx kidney stones, "kidney function low", raynauds disease Last Myocardial Infarction Date:: 2012 History of Any Multi-Drug Resistant Organisms: None Reported Past Surgical History: Back Surgery, Cholecystectomy, Heart Catheterization, Hysterectomy, Joint Replacement, Orthopedic Surgery Additional Past Surgical History / Comment(s): RODS & CAGES IN BACK, RIGHT HIP REPLACEMENT, PARTIAL THYROIDECTOMY, BILATERAL KNEE REPLACEMENTS, NECK SURGERY WITH LIDIA AND CAGES, MELANOMA REMOVED FROM FACE X4, REPAIR OF HEMATOMA/FEMORAL ARTERY AFTER HEART CATHETERIZATION,rt foot bone spur removed Past Anesthesia/Blood Transfusion Reactions: Previous Problems w/ Anesthesia, Motion Sickness, Postoperative Nausea & Vomiting (PONV) Additional Past Anesthesia/Blood Transfusion Reaction / Comm: Hard to wake up. Past Psychological History: Depression Additional Psychological History / Comment(s): . Smoking Status: Never smoker Past Alcohol Use History: None Reported Past Drug Use History: None Reported - Past Family History Sister(s) Family Medical History: Cancer Brother(s) Family Medical History: Cancer Mother Family Medical History: Myocardial Infarction (ID) Additional Family Medical History / Comment(s): Mother of a ID at the age of 76yrs. Father History Unknown: Yes Family Medical History: Chest Pain / Angina Medications and Allergies Home Medications Medication Instructions Recorded Confirmed Type Pantoprazole Sodium [Protonix] 40 mg PO BID 05/14/14 01/24/23 History Glucosam/Chond/Hyalu/Cf Borate 1 tab PO DAILY 05/02/20 01/24/23 History [Move Free Joint Health Tablet] Cholecalciferol [Vitamin D3 (25 25 mcg PO DAILY 06/16/22 01/24/23 History Mcg = 1000 Iu)] Cyanocobalamin (Vitamin B-12) 1,000 mcg PO DAILY 06/16/22 01/24/23 History [Vitamin B-12] DULoxetine HCL [Cymbalta] 30 mg PO DAILY 08/03/22 01/24/23 History Leflunomide [Arava] 20 mg PO DAILY 08/03/22 01/24/23 History Lysine 500 mg PO DAILY 08/03/22 01/24/23 History Ondansetron Odt [Zofran ODT] 4 mg PO Q8HR PRN #10 tab 09/03/22 01/24/23 Rx Ipratropium-Albuterol Nebulize 3 ml INHALATION RT-QID PRN each 09/18/22 01/24/23 Rx [Duoneb 0.5 mg-3 mg/3 ml Soln] Warfarin Sodium 4 mg PO SUTUTHSA 12/07/22 01/25/23 History Furosemide [Lasix] 20 mg PO DAILY #30 tab 12/12/22 01/24/23 Rx Magnesium Oxide [Mag-Ox] 400 mg PO DAILY #30 tab 12/12/22 01/24/23 Rx lisinopriL [Zestril] 2.5 mg PO HS #30 tab 12/12/22 01/24/23 Rx Amiodarone [Cordarone] 200 mg PO DAILY 01/24/23 01/24/23 History Metoprolol Succinate (ER) [Toprol 25 mg PO DAILY 01/24/23 01/24/23 History XL] Pregabalin [Lyrica] 100 mg PO BID 01/24/23 01/24/23 History Spironolactone [Aldactone] 12.5 mg PO DAILY 01/24/23 01/24/23 History Tiotropium 18 Mcg/Puff [Spiriva] 1 puff INHALATION RT-DAILY 01/24/23 01/24/23 History Warfarin Sodium 2 mg PO MOWEFR 01/25/23 01/25/23 History Allergies Allergy/AdvReac Type Severity Reaction Status Date / Time cephalexin monohydrate Allergy Rash/Hives Verified 01/24/23 21:57 [From Keflex] diphenhydramine HCl Allergy SWELLING Verified 01/24/23 21:57 [From Benadryl] OF TONGUE, SOB enoxaparin [From Lovenox] Allergy Rash/Hives Verified 01/24/23 21:57 Penicillins Allergy SWELLING, Verified 01/24/23 21:57 HIVES aspirin AdvReac EXCESS Verified 01/24/23 21:57 BLEEDING garlic AdvReac Nausea Verified 01/24/23 21:57 milk AdvReac Abdominal Verified 01/24/23 21:57 Pain morphine AdvReac Vomiting Verified 01/24/23 21:57 sulfamethoxazole AdvReac Nausea & Verified 01/24/23 21:57 [From Bactrim] Vomiting trimethoprim [From Bactrim] AdvReac Nausea & Verified 01/24/23 21:57 Vomiting milk chocolate AdvReac Nausea Uncoded 12/06/22 15:14 Physical Exam Vitals: Vital Signs Temp Pulse Pulse Resp BP BP Pulse Ox 01/25/23 12:00 98.4 F 61 18 144/67 92 L 01/25/23 08:00 97.3 F L 71 18 100/47 100 01/25/23 07:40 70 18 119/75 97 01/25/23 06:14 61 18 105/48 99 01/25/23 01:31 71 16 98/42 97 01/24/23 22:56 68 16 114/65 01/24/23 22:38 73 18 116/44 98 01/24/23 21:43 63 22 94/57 95 01/24/23 21:00 97.6 F 81 18 109/61 98 Intake and Output 01/24/23 01/25/23 01/25/23 22:59 06:59 14:59 Other: Weight 60.328 kg 60.328 kg General appearance: The patient is alert, oriented, appears in no acute distress. HET: Head is normocephalic and atraumatic. Conjunctiva pink. Sclera anicteric. Neck: Supple without lymphadenopathy. Trachea midline. Heart: S1 S2. Regular rate and rhythm. Lungs: Clear to auscultation. Abdomen: Soft, nontender, nondistended with bowel sounds. No guarding or rigidity. Skin: No rashes. No jaundice. Extremities: Normal skin color and turgor. No pedal edema. Neurological: No focal deficits. Alert and oriented x3. Results CBC & Chem 7: 01/25/23 05:34 01/25/23 09:33 Labs: Abnormal Lab Results - Last 24 Hours (Table) 01/24/23 01/24/23 01/24/23 Range/Units 20:47 20:47 20:47 RBC 3.21 L (3.80-5.40) m/uL Hgb 9.4 L (11.4-16.0) gm/dL Hct 29.3 L (34.0-46.0) % RDW 17.7 H (11.5-15.5) % PT 67.9 H (9.0-12.0) sec INR 6.8 H* (<1.2) APTT 61.2 H (22.0-30.0) sec Chloride (98-107) mmol/L Carbon Dioxide 17 L (22-30) mmol/L BUN 56 H (7-17) mg/dL Creatinine 2.48 H (0.52-1.04) mg/dL Glucose 113 H (74-99) mg/dL Calcium (8.4-10.2) mg/dL 01/25/23 01/25/23 01/25/23 Range/Units 02:51 05:34 05:34 RBC 2.77 L 2.80 L (3.80-5.40) m/uL Hgb 8.2 L 8.2 L (11.4-16.0) gm/dL Hct 25.5 L 26.0 L (34.0-46.0) % RDW 17.9 H 17.9 H (11.5-15.5) % PT 18.1 H (9.0-12.0) sec INR 1.8 H (<1.2) APTT (22.0-30.0) sec Chloride (98-107) mmol/L Carbon Dioxide (22-30) mmol/L BUN (7-17) mg/dL Creatinine (0.52-1.04) mg/dL Glucose (74-99) mg/dL Calcium (8.4-10.2) mg/dL 01/25/23 Range/Units 09:33 RBC (3.80-5.40) m/uL Hgb (11.4-16.0) gm/dL Hct (34.0-46.0) % RDW (11.5-15.5) % PT (9.0-12.0) sec INR (<1.2) APTT (22.0-30.0) sec Chloride 111 H (98-107) mmol/L Carbon Dioxide (22-30) mmol/L BUN 42 H (7-17) mg/dL Creatinine 1.70 H (0.52-1.04) mg/dL Glucose (74-99) mg/dL Calcium 8.3 L (8.4-10.2) mg/dL Assessment and Plan (1) GI bleed Narrative/Plan: This is a 77-year-old female who presented to the emergency department after multiple maroon-colored stools, with syncope and fall. The patient denies any previous history of GI bleed. She does have a history of chronic iron deficiency anemia and has had endoscopic evaluation in the past. I EGD noted on 08/04/2022 with no active bleeding, mild gastritis with a recommendation for colonoscopy. Patient believes she did undergo colonoscopy however report not available at this time. Patient does have a history of diverticulosis and diverticulitis. She does have a history of atrial fibrillation on Coumadin and did come in with a supratherapeutic INR of 6.8. She was given vitamin K. Patient likely had a diverticular bleed that has now stopped. Continue to hold anticoagulation. We'll continue to monitor for GI bleed. No plan for an endoscopic evaluation at this time. Current Visit: Yes Status: Acute Code(s): K92.2 - GASTROINTESTINAL HEMORRHAGE, UNSPECIFIED SNOMED Code(s): 93016490 Plan: 1. Continue symptomatic and supportive care 2. Hold anticoagulation 3. Patient may have clear liquid diet 4. Protonix 40 mg daily for GI prophylaxis 5. Daily CBC, transfuse for hemoglobin less than 7 6. No plans at this time for endoscopic evaluation. Continue to monitor bleeding. Thank you for this consultation, we will continue to follow. Dr. Hanane Freeman I agree with the dictator's note, documented as a scribe by Kassy Kruger.
--- NOTE | 2023-01-25 14:57 | P.NPCON ---
History of Present Illness - Reason for Consult acute renal failure - History of Present Illness Reason for consultation: Acute kidney injury History of present illness: Patient is a 77-year-old female seen in renal consultation for acute kidney injury. Patient's baseline creatinine is near 1 and was elevated at 2.4 at this admission. It is improved to 1.7 today. She is receiving IV fluids. No hydro nephrosis was noted on CAT scan. Patient does have history of systolic CHF with ejection fraction of 30-35%. Patient presented to the hospital due to bloody bowel movements. Patient states yesterday she noticed loose bowel movements and then started passing multiple clots. She does take Coumadin due to history of A. fib. She also admits to history of diverticulitis. She denies history of diabetes or coronary artery disease. She does have history of stroke. Denies use of nonsteroidals. No vomiting. No fever or chills. No chest pain or shortness of breath. Hemoglobin on admission was 9.4 and is stable at 8.2. She denies hematuria. She does take Lasix at home which is currently held. Blood pressure stable. Vital signs are stable. General: No acute distress. HEENT: Head exam is unremarkable. LUNGS: No audible rhonchi or wheezes. HEART: Rate and Rhythm are regular. ABDOMEN: Soft, nontender. EXTREMITITES: No edema. Past Medical History Past Medical History: Atrial Flutter, Asthma, Cancer, COPD, CVA/TIA, GERD/Reflux, GI Bleed, Hypertension, Memory Impairment, Myocardial Infarction (MN), Osteoarthritis (OA), Rheumatoid Arthritis (RA) Additional Past Medical History / Comment(s): Chronic cough. Back pain, matt jaycob. Occasional slight difficulty with swallowing. Hx gastic ulcer, H-Pylori, diverticulitis, hx melanoma on face X2. Hx kidney stones, "kidney function low", raynauds disease Last Myocardial Infarction Date:: 2012 History of Any Multi-Drug Resistant Organisms: None Reported Past Surgical History: Back Surgery, Cholecystectomy, Heart Catheterization, Hysterectomy, Joint Replacement, Orthopedic Surgery Additional Past Surgical History / Comment(s): RODS & CAGES IN BACK, RIGHT HIP REPLACEMENT, PARTIAL THYROIDECTOMY, BILATERAL KNEE REPLACEMENTS, NECK SURGERY WITH LIDIA AND CAGES, MELANOMA REMOVED FROM FACE X4, REPAIR OF HEMATOMA/FEMORAL ARTERY AFTER HEART CATHETERIZATION,rt foot bone spur removed Past Anesthesia/Blood Transfusion Reactions: Previous Problems w/ Anesthesia, Motion Sickness, Postoperative Nausea & Vomiting (PONV) Additional Past Anesthesia/Blood Transfusion Reaction / Comment(s): Hard to wake up. Past Psychological History: Depression Additional Psychological History / Comment(s): . Smoking Status: Never smoker Past Alcohol Use History: None Reported Past Drug Use History: None Reported - Past Family History Sister(s) Family Medical History: Cancer Brother(s) Family Medical History: Cancer Mother Family Medical History: Myocardial Infarction (MN) Additional Family Medical History / Comment(s): Mother of a MN at the age of 76yrs. Father History Unknown: Yes Family Medical History: Chest Pain / Angina Medications and Allergies Home Medications Medication Instructions Recorded Confirmed Type Pantoprazole Sodium [Protonix] 40 mg PO BID 05/14/14 01/24/23 History Glucosam/Chond/Hyalu/Cf Borate 1 tab PO DAILY 05/02/20 01/24/23 History [Move Free Joint Health Tablet] Cholecalciferol [Vitamin D3 (25 25 mcg PO DAILY 06/16/22 01/24/23 History Mcg = 1000 Iu)] Cyanocobalamin (Vitamin B-12) 1,000 mcg PO DAILY 06/16/22 01/24/23 History [Vitamin B-12] DULoxetine HCL [Cymbalta] 30 mg PO DAILY 08/03/22 01/24/23 History Leflunomide [Arava] 20 mg PO DAILY 08/03/22 01/24/23 History Lysine 500 mg PO DAILY 08/03/22 01/24/23 History Ondansetron Odt [Zofran ODT] 4 mg PO Q8HR PRN #10 tab 09/03/22 01/24/23 Rx Ipratropium-Albuterol Nebulize 3 ml INHALATION RT-QID PRN each 09/18/22 01/24/23 Rx [Duoneb 0.5 mg-3 mg/3 ml Soln] Warfarin Sodium 4 mg PO SUTUTHSA 12/07/22 01/25/23 History Furosemide [Lasix] 20 mg PO DAILY #30 tab 12/12/22 01/24/23 Rx Magnesium Oxide [Mag-Ox] 400 mg PO DAILY #30 tab 12/12/22 01/24/23 Rx lisinopriL [Zestril] 2.5 mg PO HS #30 tab 12/12/22 01/24/23 Rx Amiodarone [Cordarone] 200 mg PO DAILY 01/24/23 01/24/23 History Metoprolol Succinate (ER) [Toprol 25 mg PO DAILY 01/24/23 01/24/23 History XL] Pregabalin [Lyrica] 100 mg PO BID 01/24/23 01/24/23 History Spironolactone [Aldactone] 12.5 mg PO DAILY 01/24/23 01/24/23 History Tiotropium 18 Mcg/Puff [Spiriva] 1 puff INHALATION RT-DAILY 01/24/23 01/24/23 History Warfarin Sodium 2 mg PO MOWEFR 01/25/23 01/25/23 History Allergies Allergy/AdvReac Type Severity Reaction Status Date / Time cephalexin monohydrate Allergy Rash/Hives Verified 01/24/23 21:57 [From Keflex] diphenhydramine HCl Allergy SWELLING Verified 01/24/23 21:57 [From Benadryl] OF TONGUE, SOB enoxaparin [From Lovenox] Allergy Rash/Hives Verified 01/24/23 21:57 Penicillins Allergy SWELLING, Verified 01/24/23 21:57 HIVES aspirin AdvReac EXCESS Verified 01/24/23 21:57 BLEEDING garlic AdvReac Nausea Verified 01/24/23 21:57 milk AdvReac Abdominal Verified 01/24/23 21:57 Pain morphine AdvReac Vomiting Verified 01/24/23 21:57 sulfamethoxazole AdvReac Nausea & Verified 01/24/23 21:57 [From Bactrim] Vomiting trimethoprim [From Bactrim] AdvReac Nausea & Verified 01/24/23 21:57 Vomiting milk chocolate AdvReac Nausea Uncoded 12/06/22 15:14 Physical Exam Vitals: Vital Signs Temp Pulse Pulse Resp BP BP Pulse Ox 01/25/23 12:00 98.4 F 61 18 144/67 92 L 01/25/23 08:00 97.3 F L 71 18 100/47 100 01/25/23 07:40 70 18 119/75 97 01/25/23 06:14 61 18 105/48 99 01/25/23 01:31 71 16 98/42 97 01/24/23 22:56 68 16 114/65 01/24/23 22:38 73 18 116/44 98 01/24/23 21:43 63 22 94/57 95 01/24/23 21:00 97.6 F 81 18 109/61 98 Intake and Output 01/24/23 01/25/23 01/25/23 22:59 06:59 14:59 Output Total 300 Balance -300 Output: Urine 300 Other: Weight 60.328 kg 60.328 kg Results - Lab Results Most recent lab results Calcium 8.3 mg/dL (8.4-10.2) L 01/25/23 09:33 Magnesium 2.3 mg/dL (1.6-2.3) 01/25/23 09:33 01/25/23 05:34 01/25/23 09:33 Assessment and Plan Plan: Assessment: 1. Acute kidney injury mostly prerenal secondary to diuresis and GI losses. Creatinine 2.48 on admission and is 1.7 today. Baseline creatinine near 1. No hydronephrosis noted on CAT scan. 2. Acute GI bleed. Anticoagulation held. GI following. 3. Metabolic acidosis secondary to acute kidney injury and GI losses. Improved. 4. Cardiomyopathy. Ejection fraction 35%. 5. Nephrolithiasis. Nonobstructing. Further workup outpatient. Plan: Decrease rate of normal saline to 50 mL an hour. Encouraged oral intake. Continue to hold diuretics. Check iron studies. Avoid nephrotoxins. Continue to monitor renal function and urine output. Thank you for the consultation. I will continue to follow the patient with you during her hospital stay.
[2023-01-25 16:18] LABS: % Iron Saturation 25.47 (12.00-45.00); Ferritin 94.9 ng/mL (10.0-291.0)
[2023-01-26] MEDS: PANTOPRAZOLE 40 MG TABLET PO SCH ×2 (06:13→17:11)
[2023-01-26] MEDS: AMIODARONE 200 MG TAB PO SCH (07:54)
[2023-01-26] MEDS: METOPROLOL SUCCINATE (ER) 25 MG TAB.ER.24H PO SCH (07:54)
[2023-01-26] MEDS: LEFLUNOMIDE 20 MG TAB PO SCH (07:54)
[2023-01-26] MEDS: SODIUM CHLORIDE 0.9% 1,000 ML IV SCH (07:55)
[2023-01-26] MEDS: DULoxetine HCL 30 MG CAPSULE.DR PO SCH (07:55)
--- NOTE | 2023-01-26 08:24 | P.PN ---
Subjective Progress Note Date: 01/26/23 Principal diagnosis: GI bleed This is a pleasant 77-year-old female who presented to the emergency department with complaints of multiple bloody bowel movements throughout the evening, along with syncope and fall. Patient states that she had 8 bloody bowel movements, without any abdominal pain, cramping, nausea or vomiting. She has a past medical history including CHF, atrial fibrillation on Coumadin, COPD, TIA, GI bleed, hypertension, rheumatoid arthritis, iron deficiency anemia and diverticulosis. Patient's INR was supratherapeutic on admission at 6.8. She was given vitamin K 10 mg. A repeat INR was ordered, patient is 1.8. She states bleeding has stopped since she has come into the emergency department. She denies any previous history of GI bleed. Last EGD 08/04/2022 completed for epigastric pain, chronic diarrhea intermittent dysphagia and iron deficiency anemia with findings of mild antral gastritis with no evidence of esophagitis or esophageal stricture, and no bleeding. Patient believes colonoscopy was around the same time however no report available at this time. Labs WBC 5.5 hemoglobin 8.2 hematocrit 26 platelet count 207,000 INR 1.8 sodium 141 potassium 4.1 BUN 42 creatinine 1.7 total bilirubin 0.5 AST 27 ALT [address] abdomen and pelvis without contrast reported limited evaluation. No obvious GI hemorrhage. Nonobstructing bilateral renal calculi. Left ovarian 2.3 cm cyst, mild colonic diverticulosis. 01/26/2023: Patient seen and examined today sitting up in bed eating breakfast. Denies any abdominal pain, nausea or vomiting. Denies any further bowel movements or rectal bleeding. Today's labs are currently pending. Coumadin has been on hold. Last INR 1.8. She denies any other symptoms. No acute changes through the night. Objective - Vital Signs Vital signs: Vital Signs Temp 98.5 F 01/26/23 04:00 Pulse 66 01/26/23 04:00 Resp 18 01/26/23 04:00 BP 114/58 01/26/23 04:00 Pulse Ox 92 L 01/26/23 04:00 FiO2 Intake & Output 01/25/23 01/26/23 01/26/23 18:59 06:59 18:59 Intake Total 240 Output Total 300 1300 400 Balance -300 -1300 -160 Weight 60.328 kg Intake: Oral 240 Output: Urine 300 1300 400 - Exam General appearance: The patient is alert, oriented, appears in no acute distress. HET: Head is normocephalic and atraumatic. Conjunctiva pink. Sclera anicteric. Neck: Supple without lymphadenopathy. Abdomen: Soft, nontender, nondistended with bowel sounds. No guarding or rigidity. Extremities: Normal skin color and turgor. No pedal edema Skin: No rashes, no jaundice Neurological: No focal deficits. Alert and oriented. - Labs CBC & Chem 7: 01/25/23 05:34 01/25/23 09:33 Labs: Abnormal Lab Results - Last 24 Hours (Table) 01/25/23 Range/Units 09:33 Chloride 111 H (98-107) mmol/L BUN 42 H (7-17) mg/dL Creatinine 1.70 H (0.52-1.04) mg/dL Calcium 8.3 L (8.4-10.2) mg/dL Assessment and Plan (1) GI bleed Narrative/Plan: This is a 77-year-old female who presented to the emergency department after multiple maroon-colored stools, with syncope and fall. The patient denies any previous history of GI bleed. She does have a history of chronic iron deficiency anemia and has had endoscopic evaluation in the past. I EGD noted on 08/04/2022 with no active bleeding, mild gastritis with a recommendation for colonoscopy. Patient believes she did undergo colonoscopy however report not available at this time. Patient does have a history of diverticulosis and di verticulitis. She does have a history of atrial fibrillation on Coumadin and did come in with a supratherapeutic INR of 6.8. She was given vitamin K. Patient likely had a diverticular bleed that has now stopped. Continue to hold anticoagulation. We'll continue to monitor for GI bleed. No plan for an endoscopic evaluation at this time. 01/26/2023. Likely diverticular bleed which has resolved. Coumadin on hold. Repeat INR 1.8 from yesterday. Recommend holding Coumadin for another 1-2 days. Discussed with patient recommend colonoscopy at some point, this can be done as an outpatient which is what patient is requesting in reasonable as the GI bleed has resolved. Current Visit: Yes Status: Acute Code(s): K92.2 - GASTROINTESTINAL HEMORRHAGE, UNSPECIFIED SNOMED Code(s): 37160110 (2) Supratherapeutic INR Current Visit: Yes Status: Acute Code(s): R79.1 - ABNORMAL COAGULATION PROFILE SNOMED Code(s): 794885289 (3) HEENA (acute kidney injury) Current Visit: Yes Status: Acute Code(s): N17.9 - ACUTE KIDNEY FAILURE, UNSPECIFIED SNOMED Code(s): 82058196 (4) A-fib Current Visit: No Status: Acute Code(s): I48.91 - UNSPECIFIED ATRIAL FIBRIL LATION SNOMED Code(s): 89858302 Plan: 1. Continue symptomatic and supportive care 2. Diet as tolerated 3. CBC, INR ordered for today 4. Patient has had no further bleeding, patient cleared for discharge from gastroenterology. Will schedule outpatient colonoscopy. 5. Continue to hold Coumadin for another 1-2 days Thank you for this consultation, we will continue to follow. Dr. Hanane Freeman I agree with the dictator's note, documented as a scribe by Kassy Kruger.
[2023-01-26 09:12] LABS: Anisocytosis Slight; HCT 26.3 % (34.0-46.0); HGB 8.2 gm/dL (11.4-16.0); MCH 29.1 pg (25.0-35.0); MCHC 31.1 g/dL (31.0-37.0); MCV 93.8 fL (80.0-100.0); Mean Platelet Volume 9.1; Platelet Count 208 k/uL (150-450); RDW 17.8 % (11.5-15.5); WBC 5.4 k/uL (3.8-10.6)
[2023-01-26 09:20] LABS: INR 1.8 (<1.2); Prothrombin Time 17.8 sec (9.0-12.0)
[2023-01-26] MEDS: IPRATROPIUM 0.5 MG/2.5 ML NEBU INHALATION SCH ×4 (09:48→21:32)
[2023-01-26 09:54] LABS: Calcium 8.7 mg/dL (8.4-10.2); Potassium 4.6 mmol/L (3.5-5.1)
--- NOTE | 2023-01-26 10:26 | P.PN ---
Subjective Patient is seen in follow-up for acute kidney injury. Renal function improving. Receiving IV fluids. No vomiting or diarrhea. Denies melena or hematochezia. No chest pain or shortness of breath. Vital signs are stable. General: No acute distress. HEENT: Head exam is unremarkable. LUNGS: No audible rhonchi or wheezes. HEART: Rate and Rhythm are regular. ABDOMEN: Soft, nontender. EXTREMITITES: No edema. Objective - Vital Signs Vital signs: Vital Signs Temp 97.6 F 01/26/23 08:00 Pulse 76 01/26/23 10:03 Resp 18 01/26/23 08:00 BP 126/56 01/26/23 08:00 Pulse Ox 97 01/26/23 08:00 FiO2 Intake & Output 01/25/23 01/26/23 01/26/23 18:59 06:59 18:59 Intake Total 240 Output Total 300 1300 400 Balance -300 -1300 -160 Weight 60.328 kg Intake: Oral 240 Output: Urine 300 1300 400 Other: Voiding Method External Catheter - Labs CBC & Chem 7: 01/26/23 07:45 01/26/23 07:45 Labs: Abnormal Lab Results - Last 24 Hours (Table) 01/25/23 01/26/23 01/26/23 Range/Units 09:33 07:45 07:45 RBC 2.80 L (3.80-5.40) m/uL Hgb 8.2 L (11.4-16.0) gm/dL Hct 26.3 L (34.0-46.0) % RDW 17.8 H (11.5-15.5) % PT (9.0-12.0) sec INR (<1.2) Chloride 111 H 110 H (98-107) mmol/L Carbon Dioxide 21 L (22-30) mmol/L BUN 42 H 23 H (7-17) mg/dL Creatinine 1.70 H 1.17 H (0.52-1.04) mg/dL Calcium 8.3 L (8.4-10.2) mg/dL 01/26/23 Range/Units 07:45 RBC (3.80-5.40) m/uL Hgb (11.4-16.0) gm/dL Hct (34.0-46.0) % RDW (11.5-15.5) % PT 17.8 H (9.0-12.0) sec INR 1.8 H (<1.2) Chloride (98-107) mmol/L Carbon Dioxide (22-30) mmol/L BUN (7-17) mg/dL Creatinine (0.52-1.04) mg/dL Calcium (8.4-10.2) mg/dL Assessment and Plan Plan: Assessment: 1. Acute kidney injury mostly prerenal secondary to diuresis and GI losses. Creatinine 2.48 on admission and is 1.17 today. Baseline creatinine near 1. No hydronephrosis noted on CAT scan. 2. Acute GI bleed. Anticoagulation held. Iron replete. GI following. 3. Metabolic acidosis secondary to acute kidney injury and GI losses. Improved. 4. Cardiomyopathy. Ejection fraction 35%. 5. Nephrolithiasis. Nonobstructing. Further workup outpatient. Plan: Hep-Lock IV fluids. Encouraged oral intake. Continue to hold diuretics for now. Avoid nephrotoxins. Continue to monitor renal function and urine output.
--- NOTE | 2023-01-26 11:42 | P.PN ---
Subjective Progress Note Date: 01/26/23 Hospital course: Patient is a very pleasant 77-year-old female with a past medical history of atrial fibrillation on anticoagulation with Coumadin, CAD, hypertension, CVA, and rheumatoid arthritis. She presented to the emergency department on 01/25/23 with a chief complaint of syncopal episode accompanied by reports of melena 10 days followed by bright red blood per rectum. Patient underwent full evaluation in the emergency department. and was found to have a supratherapeutic INR with an INR of 6.8, hemoglobin of 9.4, and an acute kidney injury with BUN of 56, and creatinine of 2.48.. Chest x-ray, pelvis x-ray, tib-fib x-ray, humerus x-ray, CT thoracic and lumbar spine, CT cervical spine and head, and abdominal and pelvis CT were all completed and imaging was negative for acute process. CT cervical spine revealed intact hardware, CT abdomen and pelvis did reveal a left ovarian 2.3 cm cyst and nonobstructive bilateral renal calculi. Patient was started on IV fluid hydration for acute kidney injury and received vitamin K and PCC for supratherapeutic INR. She was admitted under our services with consultation to gastroenterology for GI bleed and nephrology for acute kidney injury. Repeat INR status post administration of PCC and vitamin K remains at 1.8. Physical exam: Patient seen and fully evaluated at bedside this morning. She denies having any further episodes of dark-colored blood or bright red blood per rectum. Patient denies having any complaints at this time. She does report she was slightly short of breath upon getting up this morning but states this was her first time getting up and over 24 hours. She denies having any shortness of breath at rest or any other complaints at this time. Vital signs reviewed and stable. General: Nontoxic, no distress and appears stated age. Derm: Skin warm and dry, normal coloration for ethnicity. Head: Atraumatic, normocephalic and symmetric. Eyes: EOMs intact, no lid lag, and anicteric sclera Mouth: no lip lesions, mucus membranes moist Cardiovascular: Irregularly irregular, no murmur, positive posterior tibial pulses bilaterally, and cap refill < 2 seconds. Lungs: Respirations even, regular, and unlabored on room air. Lungs diminished, no rhonchi, no rales, no wheezing, and no accessory muscle usage. Abdominal: soft, nontender to palpation, no guarding, no appreciable organomegaly Ext: ROM intact. No gross muscle atrophy, no edema, no contractures Neuro: Speech clear, face symmetrical and CN II-XII grossly intact with no noted focal neuro deficits Psych: Alert and oriented to person, place, time, and situation. Appropriate and pleasant affect. Assessment and Plan of Care: Supratherapeutic INR GI bleed Chronic Atrial fibrillation Hypertension -Morning labs reviewed and stable. INR remains stable and slightly subtherapeutic at 1.8 status post receiving vitamin K and PCC on 01/24/22. -CBC also showing stable normocytic anemia with hemoglobin of 8.2, no need for transfusion at this time. Patient denies having further episodes of GI bleeding. -Discussed plan of care with gastroenterology AUTO LEASING MANAGER, recommending continuing to hold Coumadin for an additional 48 hours. -Discussed alternative anticoagulants with patient as there are concerns with patient's initial supratherapeutic INR. Patient reports this was due to insurance pricing and costs of other anticoagulants. Discussed with social work and attempting to evaluate charges regarding anticoagulation alternatives. Acute kidney injury -Improved after IV fluid hydration. -Morning labs reviewed. BMP revealing nearly resolved acute kidney injury With BUN 23, creatinine 1.17, and GFR 45 with baseline creatinine of 1.0. -Discussed case with mounter saxophones, Dr. Sandoval recommending to continue to hold diuretics and hold off on IV fluids. -We will repeat morning BMP to monitor for total resolution of kidney injury. CODE STATUS: Full code DVT prophylaxis: SCDs, Coumadin held secondary to supratherapeutic INR Discussed with: Patient, RN, gastroenterology AUTO LEASING MANAGER, and mounter saxophones Anticipated discharge date: Clinical course to determine, likely tomorrow morning Anticipated discharge place: Home, likely tomorrow morning Patient was seen independently by Nurse Pracitioner. This document was prepared using [employer] dictation software. Please allow for errors in advertising account executive, while rare they do occur. I reviewed the documentation as provided by the SHANTANU above, who is the original author of this note. I agree with the documented assessment and plan, with the following changes: none Objective - Vital Signs Vital signs: Vital Signs Temp 97.6 F 01/26/23 08:00 Pulse 76 01/26/23 10:03 Resp 18 01/26/23 08:00 BP 126/56 01/26/23 08:00 Pulse Ox 97 01/26/23 08:00 FiO2 Intake & Output 01/25/23 01/26/23 01/26/23 18:59 06:59 18:59 Intake Total 240 Output Total 300 1300 400 Balance -300 -1300 -160 Weight 60.328 kg Intake: Oral 240 Output: Urine 300 1300 400 Other: Voiding Method External Catheter - Labs CBC & Chem 7: 01/27/23 07:40 01/27/23 07:40 Labs: Abnormal Lab Results - Last 24 Hours (Table) 01/26/23 01/26/23 01/26/23 Range/Units 07:45 07:45 07:45 RBC 2.80 L (3.80-5.40) m/uL Hgb 8.2 L (11.4-16.0) gm/dL Hct 26.3 L (34.0-46.0) % RDW 17.8 H (11.5-15.5) % PT 17.8 H (9.0-12.0) sec INR 1.8 H (<1.2) Chloride 110 H (98-107) mmol/L Carbon Dioxide 21 L (22-30) mmol/L BUN 23 H (7-17) mg/dL Creatinine 1.17 H (0.52-1.04) mg/dL
[2023-01-26] MEDS ORDERED: ACETAMINOPHEN TAB 325 MG TAB PO PRN (15:34)
[2023-01-26 15:52] LABS: Appearance,Urine Clear (Clear); Bacteria,Urine Many /hpf; Bilirubin,Urine Negative (Negative); Blood,Urine Negative (Negative); Color,Urine Yellow; Glucose,Urine (UA) Negative (Negative); Ketones,Urine Negative (Negative); Leukocyte Esterase,Urine Trace (Negative); Mucus,Urine Rare /hpf; Nitrite,Urine Positive (Negative); Protein,Urine Negative (Negative); RBC,Urine <1 /hpf (0-5); Specific Gravity,Urine 1.015 (1.001-1.035); Squamous Epithelial Cell,Urine <1 /hpf (0-4); Urobilinogen,Urine <2.0 mg/dL (<2.0); WBC,Urine <1 /hpf (0-5)
[2023-01-27] MEDS: PANTOPRAZOLE 40 MG TABLET PO SCH (06:07)
[2023-01-27] MEDS: AMIODARONE 200 MG TAB PO SCH (07:27)
[2023-01-27] MEDS: DULoxetine HCL 30 MG CAPSULE.DR PO SCH (07:27)
[2023-01-27] MEDS: LEFLUNOMIDE 20 MG TAB PO SCH (07:27)
[2023-01-27] MEDS: METOPROLOL SUCCINATE (ER) 25 MG TAB.ER.24H PO SCH (07:27)
[2023-01-27 08:32] LABS: Anisocytosis Slight; HCT 24.4 % (34.0-46.0); HGB 7.7 gm/dL (11.4-16.0); Hypochromasia Slight; MCHC 31.7 g/dL (31.0-37.0); MCV 94.7 fL (80.0-100.0); Platelet Count 218 k/uL (150-450); RBC 2.58 m/uL (3.80-5.40); RDW 17.7 % (11.5-15.5); WBC 4.6 k/uL (3.8-10.6)
[2023-01-27] MEDS: IPRATROPIUM 0.5 MG/2.5 ML NEBU INHALATION SCH ×2 (08:44→11:49)
[2023-01-27 08:55] LABS: Calcium 8.9 mg/dL (8.4-10.2)
[2023-01-27] MEDS ORDERED: ONDANSETRON 4 MG/2 ML VIAL IVP PRN (09:08)
--- NOTE | 2023-01-27 10:50 | P.PN ---
Subjective Patient is seen in follow-up for acute kidney injury. Renal function improving. Off IV fluids. No vomiting or diarrhea. Denies melena or hematochezia. No chest pain or shortness of breath. Wants to go home. Vital signs are stable. General: No acute distress. HEENT: Head exam is unremarkable. LUNGS: No audible rhonchi or wheezes. HEART: Tachycardic. ABDOMEN: Soft, nontender. EXTREMITITES: No edema. Objective - Vital Signs Vital signs: Vital Signs Temp 97.3 F L 01/27/23 08:00 Pulse 107 H 01/27/23 10:05 Resp 18 01/27/23 08:00 BP 136/71 01/27/23 08:00 Pulse Ox 95 01/27/23 08:00 FiO2 Intake & Output 01/26/23 01/27/23 01/27/23 18:59 06:59 18:59 Intake Total 240 0 Output Total 800 300 Balance -560 -300 0 Intake: Oral 240 0 Output: Urine 800 300 Other: Voiding Method External Catheter External Catheter Toilet # Voids 1 # Bowel Movements 1 1 - Labs CBC & Chem 7: 01/27/23 07:40 01/27/23 07:40 Labs: Abnormal Lab Results - Last 24 Hours (Table) 01/26/23 01/27/23 01/27/23 Range/Units 15:38 07:40 07:40 RBC 2.58 L (3.80-5.40) m/uL Hgb 7.7 L (11.4-16.0) gm/dL Hct 24.4 L (34.0-46.0) % RDW 17.7 H (11.5-15.5) % Chloride 111 H (98-107) mmol/L Carbon Dioxide 19 L (22-30) mmol/L BUN 19 H (7-17) mg/dL Creatinine 1.05 H (0.52-1.04) mg/dL Glucose 113 H (74-99) mg/dL Urine Nitrite Positive H (Negative) Ur Leukocyte Esterase Trace H (Negative) Urine Bacteria Many H (None) /hpf Urine Mucus Rare H (None) /hpf Assessment and Plan Plan: Assessment: 1. Acute kidney injury mostly prerenal secondary to diuresis and GI losses. Creatinine 2.48 on admission and is 1.05 today. Baseline creatinine near 1. No hydronephrosis noted on CAT scan. 2. Acute GI bleed. Anticoagulation held. Iron replete. GI following. Hemoglobin 7.7 today. No active bleeding. 3. Metabolic acidosis secondary to acute kidney injury and GI losses. 4. Cardiomyopathy. Ejection fraction 35%. 5. Nephrolithiasis. Nonobstructing. Further workup outpatient. 6. A. fib maintained on amiodarone and metoprolol. Plan: Encouraged oral intake. Continue to hold diuretics for now. Avoid nephrotoxins. Continue to monitor renal function and urine output. Add oral bicarbonate. Advised patient to monitor her weight closely at home and to resume Lasix if notices edema or gains more than 2-3 pounds in 1 week duration. Follow up outpatient 1 week post discharge.
[2023-01-27] MEDS ORDERED: SODIUM BICARBONATE TAB 650 MG TAB PO SCH (11:00)
[2023-01-27 13:10] VITALS: BP 115/59; PULSE 79; RESP 18; TEMP 97.8
--- NOTE | 2023-01-27 18:53 | P.DS ---
Providers Date of admission: 01/25/23 00:53 Expected date of discharge: 01/27/23 Attending physician: Mitchell Martinez MD Consults: 01/25/23 07:55 Consult Physician Routine Consulting Provider: Balbir Sandoval Consult Reason/Comments: HEENA Do you want consulting provider notified?: Yes Primary care physician: Dex Mcneal MD Hospital Course: Discharge Diagnosis: Supratherapeutic INR. INR remains stable and slightly subtherapeutic at 1.8 status post receiving vitamin K and PCC on 01/24/22. Patient was cleared GI by cytology manager to resume Coumadin on 01/28/23. Had long discussion with patient, patient instructed to resume Coumadin on 01/28/23 and follow-upin office with bond underwriter next week. Patient sent with a prescription to have repeat INR/PTT and CBC to be drawn Tuesday morning, these results are to be sent to PCP and bond underwriter for follow-up and management. GI bleed. Chronic Atrial fibrillation. Hypertension Acute kidney injury, resolved after IV fluid hydration. Patient discharged home on sodium bicarb 650 mg daily and a follow-up outpatient with nephrology in 1 week. Hospital Course: Patient is a very pleasant 77-year-old female with a past medical history of atrial fibrillation on anticoagulation with Coumadin, CAD, hypertension, CVA, and rheumatoid arthritis. She presented to the emergency department on 01/25/23 with a chief complaint of syncopal episode accompanied by reports of melena 10 days followed by bright red blood per rectum. Patient underwent full evaluation in the emergency department. and was found to have a supratherapeutic INR with an INR of 6.8, hemoglobin of 9.4, and an acute kidney injury with BUN of 56, and creatinine of 2.48.. Chest x-ray, pelvis x-ray, tib-fib x-ray, humerus x-ray, CT thoracic and lumbar spine, CT cervical spine and head, and abdominal and pelvis CT were all completed and imaging was negative for acute process. CT cervical spine revealed intact hardware, CT abdomen and pelvis did reveal a left ovarian 2.3 cm cyst and nonobstructive bilateral renal calculi. Patient was started on IV fluid hydration for acute kidney injury and received vitamin K and PCC for supratherapeutic INR. She was admitted under our services with consultation to gastroenterology for GI bleed and nephrology for acute kidney injury. Repeat INR status post administration of PCC and vitamin K remains at 1.8. Morning labs reviewed and stable. Hemoglobin stable at 7.7 and renal function improving to BUN of 19, creatinine 1.05, and GFR 51. Discussed plan of care with deli clerk recommending patient follow-up outpatient in office in 1 week and started patient on sodium bicarbonate tablets 650 mg daily.attempts were made to place patient on alternative anticoagulant, however due to high insurance costs patient unable to take alternative medication and to be discharged home on Coumadin. Discussed plan of care with bond underwriter, patient to resume Coumadin. . Patient free from any complaints at this time and verbalized understanding of discharge plans. Patient instructed to return to the emergency department immediately with any signs of returned bleeding, exertional dyspnea, or chest pain.. medically, patient is stable for discharge and to follow up outpatient with PCP, bond underwriter, cytology manager, and deli clerk. Patient being discharged home with [facility]. Physical exam: Vital signs reviewed and stable. General: Nontoxic, no distress and appears stated age. Derm: Skin warm and dry, normal coloration for ethnicity. Head: Atraumatic, normocephalic and symmetric. Eyes: EOMs intact, no lid lag, and anicteric sclera Mouth: no lip lesions, mucus membranes moist Cardiovascular: Irregularly irregular, no murmur, positive posterior tibial pulses bilaterally, and cap refill < 2 seconds. Lungs: Respirations even, regular, and unlabored on room air. Lungs diminished, no rhonchi, no rales, no wheezing, and no accessory muscle usage. Abdominal: soft, nontender to palpation, no guarding, no appreciable organomegaly Ext: ROM intact. No gross muscle atrophy, no edema, no contractures Neuro: Speech clear, face symmetrical and CN II-XII grossly intact with no noted focal neuro deficits Psych: Alert and oriented to person, place, time, and situation. Appropriate and pleasant affect. A total of 32 minutes of time were spent preparing this complex discharge summary. Pt was discharged on 01/27/23 to 11:31 AM Patient was seen independently by Nurse Practitioner. This document was prepared using [employer] dictation software. Please allow for errors in photo intern while rare they do occur. I reviewed the documentation as provided by the NATHANIEL above, who is the original author of this note. I agree with the documented assessment and plan, with the following changes: none Patient Condition at Discharge: Stable Plan - Discharge Summary Discharge Rx Participant: No New Discharge Prescriptions: New Sodium Bicarbonate Tab 650 mg PO DAILY 30 Days #30 tab Continue Pantoprazole Sodium [Protonix] 40 mg PO BID Glucosam/Chond/Hyalu/Cf Borate [Move Free Joint Health Tablet] 1 tab PO DAILY Cholecalciferol [Vitamin D3 (25 Mcg = 1000 Iu)] 25 mcg PO DAILY DULoxetine HCL [Cymbalta] 30 mg PO DAILY Lysine 500 mg PO DAILY Magnesium Oxide [Mag-Ox] 400 mg PO DAILY #30 tab Pregabalin [Lyrica] 100 mg PO BID Tiotropium 18 Mcg/Puff [Spiriva] 1 puff INHALATION RT-DAILY Spironolactone [Aldactone] 12.5 mg PO DAILY Warfarin Sodium 2 mg PO MOWEFR Cyanocobalamin (Vitamin B-12) [Vitamin B-12] 1,000 mcg PO DAILY Leflunomide [Arava] 20 mg PO DAILY Ondansetron Odt [Zofran ODT] 4 mg PO Q8HR PRN #10 tab PRN Reason: Nausea Ipratropium-Albuterol Nebulize [Duoneb 0.5 mg-3 mg/3 ml Soln] 3 ml INHALATION RT-QID PRN each PRN Reason: Shortness Of Breath Or Wheezing Warfarin Sodium 4 mg PO SUTUTHSA lisinopriL [Zestril] 2.5 mg PO HS #30 tab Metoprolol Succinate (ER) [Toprol XL] 25 mg PO DAILY Amiodarone [Cordarone] 200 mg PO DAILY Changed Furosemide [Lasix] 20 mg PO DAILY PRN #30 tab PRN Reason: Edema Discharge Medication List Pantoprazole Sodium [Protonix] 40 mg PO BID 05/14/14 [History] Glucosam/Chond/Hyalu/Cf Borate [Move Free Joint Health Tablet] 1 tab PO DAILY 05/02/20 [History] Cholecalciferol [Vitamin D3 (25 Mcg = 1000 Iu)] 25 mcg PO DAILY 06/16/22 [History] Cyanocobalamin (Vitamin B-12) [Vitamin B-12] 1,000 mcg PO DAILY 06/16/22 [History] DULoxetine HCL [Cymbalta] 30 mg PO DAILY 08/03/22 [History] Leflunomide [Arava] 20 mg PO DAILY 08/03/22 [History] Lysine 500 mg PO DAILY 08/03/22 [History] Ondansetron Odt [Zofran ODT] 4 mg PO Q8HR PRN #10 tab 09/03/22 [Rx] Ipratropium-Albuterol Nebulize [Duoneb 0.5 mg-3 mg/3 ml Soln] 3 ml INHALATION RT-QID PRN each 09/18/22 [Rx] Warfarin Sodium 4 mg PO SUTUTHSA 12/07/22 [History] Magnesium Oxide [Mag-Ox] 400 mg PO DAILY #30 tab 12/12/22 [Rx] lisinopriL [Zestril] 2.5 mg PO HS #30 tab 12/12/22 [Rx] Amiodarone [Cordarone] 200 mg PO DAILY 01/24/23 [History] Metoprolol Succinate (ER) [Toprol XL] 25 mg PO DAILY 01/24/23 [History] Pregabalin [Lyrica] 100 mg PO BID 01/24/23 [History] Spironolactone [Aldactone] 12.5 mg PO DAILY 01/24/23 [History] Tiotropium 18 Mcg/Puff [Spiriva] 1 puff INHALATION RT-DAILY 01/24/23 [History] Warfarin Sodium 2 mg PO MOWEFR 01/25/23 [History] Furosemide [Lasix] 20 mg PO DAILY PRN #30 tab 01/27/23 [Rx] Sodium Bicarbonate Tab 650 mg PO DAILY 30 Days #30 tab 01/27/23 [Rx] Follow up Appointment(s)/Referral(s): Sergey Castorena MD [STAFF PHYSICIAN] - 1 Week (Already have an nathaniel for 02/15/23 @14:00) Dex Mcneal MD [Primary Care Provider] - 01/31/23 10:00 am Alisha Freeman MD [STAFF PHYSICIAN] - 1 Week (Message left with your phone number, office should call you. ) [facility], [NON-STAFF] - Balbir Sandoval DO [STAFF PHYSICIAN] - 02/03/23 11:20 am Ambulatory/Diagnostic Orders: Complete Blood Count w/diff [LAB.AMB] Location: None Selected Prothrombin Time INR [LAB.AMB] Time Frame: 3 Days, Location: None Selected Patient Instructions/Handouts: Gastrointestinal Bleeding (DC), Acute Kidney Injury (DC) Activity/Diet/Wound Care/Special Instructions: Activity: As tolerated. Take breaks as needed. Diet: Heart healthy and carb consistent diet. Avoid salts, or foods with hidden salts such as canned or boxed foods and frozen dinners. Extra salt makes your heart work harder and traps the fluid in your body for longer. Special Instructions: Take all of your medications as directed and remember to keep all of your doctor's appointments and follow-up as needed. Resume anticoagulation with Coumadin as we discussed on 01/28/23. Thank you for allowing us to participate in your care, it was truly a pleasure having you for our patient!!! Discharge Disposition: HOME WITH HOME HEALTH SERVICES
== END 2023-01-27 13:44 | disposition home health service (06) | DRG 813 ==
LOC: EC 20:41 → 3SCARD 01-25 00:53
PROVIDERS: ADMIT Internal Medicine; ATTEND Internal Medicine
PROC: 30283B1 Transfusion of Nonautologous 4-Factor Prothrombin Complex Concentrate into Vein, Percutaneous Approach (ICD-10-PCS; principal; 2023-01-24)
DX: D68.32 Hemorrhagic disorder due to extrinsic circulating anticoagulants (principal); K57.31 Diverticulosis of large intestine without perforation or abscess with bleeding; D62 Acute posthemorrhagic anemia; N17.9 Acute kidney failure, unspecified; I48.20 Chronic atrial fibrillation, unspecified; I50.22 Chronic systolic (congestive) heart failure; I42.9 Cardiomyopathy, unspecified; E87.20 Acidosis, unspecified; F32.A Depression, unspecified; I11.0 Hypertensive heart disease with heart failure; I25.10 Atherosclerotic heart disease of native coronary artery without angina pectoris; I25.2 Old myocardial infarction; I73.00 Raynaud's syndrome without gangrene; J44.9 Chronic obstructive pulmonary disease, unspecified; N20.0 Calculus of kidney; M06.9 Rheumatoid arthritis, unspecified; T45.515A Adverse effect of anticoagulants, initial encounter; T50.2X5A Adverse effect of carbonic-anhydrase inhibitors, benzothiadiazides and other diuretics, initial encounter; K57.30 Diverticulosis of large intestine without perforation or abscess without bleeding; Z96.641 Presence of right artificial hip joint; N83.202 Unspecified ovarian cyst, left side; Z96.653 Presence of artificial knee joint, bilateral; Z88.6 Allergy status to analgesic agent; Z88.1 Allergy status to other antibiotic agents; Z88.5 Allergy status to narcotic agent; Z88.0 Allergy status to penicillin; Z88.2 Allergy status to sulfonamides; Z88.8 Allergy status to other drugs, medicaments and biological substances; Z79.01 Long term (current) use of anticoagulants; Z79.899 Other long term (current) drug therapy; Z85.820 Personal history of malignant melanoma of skin; Z90.710 Acquired absence of both cervix and uterus; Z86.73 Personal history of transient ischemic attack (TIA), and cerebral infarction without residual deficits
CPT/HCPCS: 36415; 70450; 71045; 72125; 72128; 72131; 72170; 74176; 80048; 80053; 81001; 82728; 83540; 83550; 83735; 84484; 85025; 85027; 85610; 85730; 86850; 86900; 86901; 93005; 94640; 96374; 96375; 99291

== ENCOUNTER → 2023-02-02 | Outpatient (CLI) | payer MEDICARE, BC ==
[2023-02-02 15:30] LABS: HCT 26.1 % (37.2-46.3); HGB 7.7 g/dL (12.0-15.0); MCHC 29.5 g/dL (32.0-37.0); MCV 94.9 fL (80.0-97.0); Mean Platelet Volume 10.9 fL (9.5-12.2); NRBC Per 100 WBC 0 /100 WBCS (0.0-0.0); Platelet Count 294 X 10*3/uL (140-440); RBC 2.75 X 10*6/uL (4.10-5.20); RDW 19.2 % (11.5-14.5); WBC 5.97 X 10*3/uL (4.50-10.00)
== END | disposition home or self-care (01) ==
LOC: LABWHC1 09:13
PROVIDERS: ATTEND Nurse Practitioner
DX: Z51.81 Encounter for therapeutic drug level monitoring (principal); K92.2 Gastrointestinal hemorrhage, unspecified; Z79.01 Long term (current) use of anticoagulants
CPT/HCPCS: 36415; 85027

== ENCOUNTER 2023-07-27 13:32 | Inpatient (IN) | payer MEDICARE, BC ==
[2023-07-27] MEDS ORDERED: SODIUM CHLORIDE 0.9% 500 ML 500 ML IV STA (14:00)
--- NOTE | 2023-07-27 14:17 | ED ---
General Adult HPI - General Chief complaint: Fall Stated complaint: Weakness Time Seen by Provider: 07/27/23 13:35 Source: patient, EMS, RN notes reviewed, old records reviewed Mode of arrival: EMS Limitations: no limitations - History of Present Illness Initial comments: This a 77-year-old female who presents emergency department because she has been getting weaker and weaker since Tuesday. Her states she's not been eating or drinking anything and today she collapsed in front of her . states he grabbed her and she did not hurt herself on the fall she did not land hard she did not hit her head or face or neck. Patient hasn't had any fevers chills patient denies any nausea vomiting diarrhea. Patient denies being short of breath however she states she is just getting progressively weaker and had a little bit of an upper respiratory infection on Tuesday and it seems to have continued but is not getting much worse. He denies any chest pain or palpitations. - Related Data Home Medications Medication Instructions Recorded Confirmed Pantoprazole Sodium [Protonix] 40 mg PO BID 05/14/14 07/27/23 Cholecalciferol [Vitamin D3 (25 50 mcg PO DAILY 06/16/22 07/27/23 Mcg = 1000 Iu)] Cyanocobalamin (Vitamin B-12) 1,000 mcg PO DAILY 06/16/22 07/27/23 [Vitamin B-12] Leflunomide [Arava] 20 mg PO DAILY 08/03/22 07/27/23 Lysine 500 mg PO DAILY 08/03/22 07/27/23 Warfarin Sodium 4 mg PO TH 12/07/22 07/27/23 Amiodarone [Cordarone] 200 mg PO DAILY 01/24/23 07/27/23 Pregabalin [Lyrica] 100 mg PO BID 01/24/23 07/27/23 Spironolactone [Aldactone] 12.5 mg PO DAILY 01/24/23 07/27/23 Warfarin Sodium 2 mg PO SUMOTUWEFRSA 01/25/23 07/27/23 Albuterol Nebulized [Ventolin 2.5 mg INHALATION RT-QID PRN 07/27/23 07/27/23 Nebulized] DULoxetine HCL [Cymbalta] 60 mg PO DAILY 07/27/23 07/27/23 Ipratropium Nebulized [Atrovent 0.5 mg INHALATION RT-Q6H PRN 07/27/23 07/27/23 Nebulized 0.2 MG/ML] Metoprolol Tartrate [Lopressor] 25 mg PO BID 07/27/23 07/27/23 estradioL [Estrace] 1 mg PO DAILY 07/27/23 07/27/23 lisinopriL [Zestril] 2.5 mg PO DAILY 07/27/23 07/27/23 Previous Rx's Medication Instructions Recorded Ondansetron Odt [Zofran ODT] 4 mg PO Q8HR PRN #10 tab 09/03/22 Magnesium Oxide [Mag-Ox] 400 mg PO DAILY #30 tab 12/12/22 Furosemide [Lasix] 20 mg PO DAILY PRN #30 tab 01/27/23 Sodium Bicarbonate Tab 650 mg PO DAILY 30 Days #30 tab 01/27/23 Allergies Allergy/AdvReac Type Severity Reaction Status Date / Time cephalexin monohydrate Allergy Rash/Hives Verified 07/27/23 15:44 [From Keflex] diphenhydramine HCl Allergy SWELLING Verified 07/27/23 15:44 [From Benadryl] OF TONGUE, SOB enoxaparin [From Lovenox] Allergy Rash/Hives Verified 07/27/23 15:44 Penicillins Allergy SWELLING, Verified 07/27/23 15:44 HIVES sulfamethoxazole Allergy Anaphylaxis, Verified 07/27/23 15:44 [From Bactrim] Swelling trimethoprim [From Bactrim] Allergy Anaphylaxis, Verified 07/27/23 15:44 Swelling aspirin AdvReac EXCESS Verified 07/27/23 15:44 BLEEDING garlic AdvReac Nausea Verified 07/27/23 15:44 milk AdvReac Abdominal Verified 07/27/23 15:44 Pain morphine AdvReac Vomiting Verified 07/27/23 15:44 milk chocolate AdvReac Nausea Uncoded 07/27/23 13:39 Review of Systems ROS Statement: Those systems with pertinent positive or pertinent negative responses have been documented in the HPI. ROS Other: All systems not noted in ROS Statement are negative. Past Medical History Past Medical History: Atrial Flutter, Asthma, Cancer, COPD, CVA/TIA, GERD/Reflux, GI Bleed, Hypertension, Memory Impairment, Myocardial Infarction ([place]), Osteoarthritis (OA), Rheumatoid Arthritis (RA) Additional Past Medical History / Comment(s): Chronic cough. Back pain, migraines. Occasional slight difficulty with swallowing. 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 Hx kidney stones, "kidney function low", raynauds disease Last Myocardial Infarction Date:: 2012 History of Any Multi-Drug Resistant Organisms: None Reported Past Surgical History: Back Surgery, Cholecystectomy, Heart Catheterization, H ysterectomy, Joint Replacement, Orthopedic Surgery Additional Past Surgical History / Comment(s): RODS & CAGES IN BACK, RIGHT HIP REPLACEMENT, PARTIAL THYROIDECTOMY, BILATERAL KNEE REPLACEMENTS, NECK SURGERY WITH LIDIA AND CAGES, MELANOMA REMOVED FROM FACE X4, REPAIR OF HEMATOMA/FEMORAL ARTERY AFTER HEART CATHETERIZATION,rt foot bone spur removed Past Anesthesia/Blood Transfusion Reactions: Previous Problems w/ Anesthesia, Motion Sickness, Postoperative Nausea & Vomiting (PONV) Additional Past Anesthesia/Blood Transfusion Reaction / Comment(s): Hard to wake up. Past Psychological History: Depression Smoking Status: Never smoker Past Alcohol Use History: None Reported Past Drug Use History: None Reported - Past Family History Sister(s) Family Medical History: Cancer Brother(s) Family Medical History: Cancer Mother Family Medical History: Myocardial Infarction (NV) Additional Family Medical History / Comment(s): Mother of a [place] at the age of 76yrs. Father History Unknown: Yes Family Medical History: Chest Pain / Angina General Exam - General Exam Comments Initial Comments: GENERAL: Patient is well-developed and well-nourished. Patient is nontoxic and well- hydrated and is in mild distress. ENT: Neck is soft and supple. No significant lymphadenopathy is noted. Oropharynx is clear. Moist mucous membranes. Neck has full range of motion without eliciting any pain. EYES: The sclera were anicteric and conjunctiva were pink and moist. Extraocular movements were intact and pupils were equal round and reactive to light. Eyelids were unremarkable. PULMONARY: Unlabored respirations. Good breath sounds bilaterally. No audible rales rhonchi or wheezing was noted. CARDIOVASCULAR: There is a regular rate and rhythm without any murmurs gallops or rubs. ABDOMEN: Soft and nontender with normal bowel sounds. SKIN: Skin is clear with no lesions or rashes and otherwise unremarkable. NEUROLOGIC: Patient is alert and oriented x3. Cranial nerves II through XII are grossly intact. Motor and sensory are also intact. Normal speech, volume and content. Symmetrical smile. MUSCULOSKELETAL: Normal extremities with adequate strength and full range of motion. No lower extremity swelling or edema. No calf tenderness. LYMPHATICS: No significant lymphadenopathy is noted PSYCHIATRIC: Normal psychiatric evaluation. Limitations: no limitations Course Vital Signs 07/27/23 07/27/23 13:33 16:47 Temperature 97.2 F L Pulse Rate 70 68 Respiratory 18 18 Rate Blood Pressure 137/65 138/64 O2 Sat by Pulse 96 96 Oximetry Medical Decision Making - Medical Decision Making EKG is interpreted by myself. EKG shows atrial fibrillation at 71 bpm QRS is under 42 QT intervals 466 QTC is 48. Patient's EKG shows no ST segment elevation. Patient has a left bundle branch block. Was pt. sent in by a medical professional or institution (, PA, [facility], urgent care, hospital, or fci...) When possible be specific @ -No Did you speak to anyone other than the patient for history (EMS, parent, family, police, friend...)? What history was obtained from this source @ - gave quite a bit of the history Did you review nursing and triage notes (agree or disagree)? Why? @ -I reviewed and agree with nursing and triage notes Were old charts reviewed (outside hosp., previous admission, EMS record, old EKG, old radiological studies, urgent care reports/EKG's, fci records)? Report findings @ -I reviewed prior charts lab work on this patient Differential Diagnosis (chest pain, altered mental status, abdominal pain women, abdominal pain men, vaginal bleeding, weakness, fever, dyspnea, syncope, he adache, dizziness, GI bleed, back pain, seizure, CVA, palpatations, mental health, musculoskeletal)? @ -Differential Weakness: Hypoglycemia, shock, sepsis, hyponatremia, anemia, infection, NV, ETOH, adverse medicine reaction, overdose, stroke, this is not meant to be an all-inclusive list. EKG interpreted by me (3pts min.). @ -As above X-rays interpreted by me (1pt min.). @ -Chest x-ray shows no acute abnormality. CT interpreted by me (1pt min.). @ -None done U/S interpreted by me (1pt. min.). @ -None done What testing was considered but not performed or refused? (CT, X-rays, U/S, labs)? Why? @ -None What meds were considered but not given or refused? Why? @ -None Did you discuss the management of the patient with other professionals (professionals i.e. , PA, [facility], lab, RT, psych nurse, social insurance specialist, pipelayer, teacher, mortgage loan officer originator, case therapist)? Give summary @ -I spoke to Dr. Grissom she agreed to admit the patient Was smoking cessation discussed for >3mins.? @ -No Was critical care preformed (if so, how long)? @ -No Were there social determinants of health that impacted care today? How? (Homelessness, low income, unemployed, alcoholism, drug addiction, transportation, low edu. Level, literacy, decrease access to med. care, [facility], rehab)? @ -No Was there de-escalation of care discussed even if they declined (Discuss DNR or withdrawal of care, Hospice)? DNR status @ -No What co-morbidities impacted this encounter? (DM, HTN, Smoking, COPD, CAD, Cancer, CVA, ARF, Chemo, Hep., AIDS, mental health diagnosis, sleep apnea, morbid obesity)? @ -None Was patient admitted / discharged? Hospital course, mention meds given and route, prescriptions, significant lab abnormalities, going to OR and other pertinent info. @ -Patient was given some normal saline fluid she was also given something to eat and drink and after that we did attempt multiple times to get up and walk and she was too weak to do so and felt uncomfortable taking her home and so I spoke with Dr. Grissom she agreed to admit the patient Undiagnosed new problem with uncertain prognosis? @ -No Drug Therapy requiring intensive monitoring for toxicity (Heparin, Nitro, Insulin, Cardizem)? @ -No Were any procedures done? @ -No Diagnosis/symptom? @ -Generalized weakness Acute, or Chronic, or Acute on Chronic? @ -Acute Uncomplicated (without systemic symptoms) or Complicated (systemic symptoms)? @ -Complicated Side effects of treatment? @ -No Exacerbation, Progression, or Severe Exacerbation? @ -No Poses a threat to life or bodily function? How? (Chest pain, USA, NV, pneumonia, PE, COPD, DKA, ARF, appy, cholecystitis, CVA, Diverticulitis, Homicidal, Suicidal, threat to staff... and all critical care pts) @ -No - Lab Data Result diagrams: 07/27/23 10:41 07/27/23 14:06 Lab Results 07/27/23 07/27/23 07/27/23 Range/Units 10:41 14:06 14:06 WBC 6.2 (3.8-10.6) k/uL RBC 3.40 L (3.80-5.40) m/uL Hgb 10.8 L (11.4-16.0) gm/dL Hct 32.5 L (34.0-46.0) % MCV 95.5 (80.0-100.0) fL MCH 31.7 (25.0-35.0) pg MCHC 33.2 (31.0-37.0) g/dL RDW 13.8 (11.5-15.5) % Plt Count 223 (150-450) k/uL MPV 8.7 Neutrophils % 72 % Lymphocytes % 14 % Monocytes % 10 % Eosinophils % 2 % Basophils % 0 % Neutrophils # 4.5 (1.3-7.7) k/uL Lymphocytes # 0.9 L (1.0-4.8) k/uL Monocytes # 0.6 (0-1.0) k/uL Eosinophils # 0.1 (0-0.7) k/uL Basophils # 0.0 (0-0.2) k/uL PT 18.4 H (9.0-12.0) sec INR 1.9 H (<1.2) APTT 34.1 H (22.0-30.0) sec Sodium (137-145) mmol/L Potassium (3.5-5.1) mmol/L Chloride (98-107) mmol/L Carbon Dioxide (22-30) mmol/L Anion Gap mmol/L BUN (7-17) mg/dL Creatinine (0.52-1.04) mg/dL Est GFR (CKD-EPI)AfAm (>60 ml/min/1.73 sqM) Est GFR (CKD-EPI)NonAf (>60 ml/min/1.73 sqM) Glucose (74-99) mg/dL Plasma Lactic Acid Chris (0.7-2.0) mmol/L Calcium (8.4-10.2) mg/dL Magnesium (1.6-2.3) mg/dL Total Bilirubin (0.2-1.3) mg/dL AST (14-36) U/L ALT (4-34) U/L Alkaline Phosphatase (38-126) U/L Troponin I (0.000-0.034) ng/mL Total Protein (6.3-8.2) g/dL Albumin (3.5-5.0) g/dL Urine Color Yellow Urine Appearance Clear (Clear) Urine pH 5.5 (5.0-8.0) Ur Specific Gary 1.014 (1.001-1.035) Urine Protein Trace H (Negative) Urine Glucose (UA) Negative (Negative) Urine Ketones 1+ H (Negative) Urine Blood Negative (Negative) Urine Nitrite Negative (Negative) Urine Bilirubin Negative (Negative) Urine Urobilinogen <2.0 (<2.0) mg/dL Ur Leukocyte Esterase Negative (Negative) Coronavirus (PCR) (Not Detectd) 07/27/23 07/27/23 07/27/23 Range/Units 14:06 14:06 14:06 WBC (3.8-10.6) k/uL RBC (3.80-5.40) m/uL Hgb (11.4-16.0) gm/dL Hct (34.0-46.0) % MCV (80.0-100.0) fL MCH (25.0-35.0) pg MCHC (31.0-37.0) g/dL RDW (11.5-15.5) % Plt Count (150-450) k/uL MPV Neutrophils % % Lymphocytes % % Monocytes % % Eosinophils % % Basophils % % Neutrophils # (1.3-7.7) k/uL Lymphocytes # (1.0-4.8) k/uL Monocytes # (0-1.0) k/uL Eosinophils # (0-0.7) k/uL Basophils # (0-0.2) k/uL PT (9.0-12.0) sec INR (<1.2) APTT (22.0-30.0) sec Sodium 139 (137-145) mmol/L Potassium 4.0 (3.5-5.1) mmol/L Chloride 111 H (98-107) mmol/L Carbon Dioxide 16 L (22-30) mmol/L Anion Gap 12 mmol/L BUN 40 H (7-17) mg/dL Creatinine 1.61 H (0.52-1.04) mg/dL Est GFR (CKD-EPI)AfAm 35 (>60 ml/min/1.73 sqM) Est GFR (CKD-EPI)NonAf 31 (>60 ml/min/1.73 sqM) Glucose 80 (74-99) mg/dL Plasma Lactic Acid Chris 1.4 (0.7-2.0) mmol/L Calcium 9.5 (8.4-10.2) mg/dL Magnesium 2.4 H (1.6-2.3) mg/dL Total Bilirubin 0.7 (0.2-1.3) mg/dL AST 30 (14-36) U/L ALT 24 (4-34) U/L Alkaline Phosphatase 96 (38-126) U/L Troponin I <0.012 (0.000-0.034) ng/mL Total Protein 7.2 (6.3-8.2) g/dL Albumin 4.1 (3.5-5.0) g/dL Urine Color Urine Appearance (Clear) Urine pH (5.0-8.0) Ur Specific Gary (1.001-1.035) Urine Protein (Negative) Urine Glucose (UA) (Negative) Urine Ketones (Negative) Urine Blood (Negative) Urine Nitrite (Negative) Urine Bilirubin (Negative) Urine Urobilinogen (<2.0) mg/dL Ur Leukocyte Esterase (Negative) Coronavirus (PCR) (Not Detectd) 07/27/23 Range/Units 14:06 WBC (3.8-10.6) k/uL RBC (3.80-5.40) m/uL Hgb (11.4-16.0) gm/dL Hct (34.0-46.0) % MCV (80.0-100.0) fL MCH (25.0-35.0) pg MCHC (31.0-37.0) g/dL RDW (11.5-15.5) % Plt Count (150-450) k/uL MPV Neutrophils % % Lymphocytes % % Monocytes % % Eosinophils % % Basophils % % Neutrophils # (1.3-7.7) k/uL Lymphocytes # (1.0-4.8) k/uL Monocytes # (0-1.0) k/uL Eosinophils # (0-0.7) k/uL Basophils # (0-0.2) k/uL PT (9.0-12.0) sec INR (<1.2) APTT (22.0-30.0) sec Sodium (137-145) mmol/L Potassium (3.5-5.1) mmol/L Chloride (98-107) mmol/L Carbon Dioxide (22-30) mmol/L Anion Gap mmol/L BUN (7-17) mg/dL Creatinine (0.52-1.04) mg/dL Est GFR (CKD-EPI)AfAm (>60 ml/min/1.73 sqM) Est GFR (CKD-EPI)NonAf (>60 ml/min/1.73 sqM) Glucose (74-99) mg/dL Plasma Lactic Acid Chris (0.7-2.0) mmol/L Calcium (8.4-10.2) mg/dL Magnesium (1.6-2.3) mg/dL Total Bilirubin (0.2-1.3) mg/dL AST (14-36) U/L ALT (4-34) U/L Alkaline Phosphatase (38-126) U/L Troponin I (0.000-0.034) ng/mL Total Protein (6.3-8.2) g/dL Albumin (3.5-5.0) g/dL Urine Color Urine Appearance (Clear) Urine pH (5.0-8.0) Ur Specific Gary (1.001-1.035) Urine Protein (Negative) Urine Glucose (UA) (Negative) Urine Ketones (Negative) Urine Blood (Negative) Urine Nitrite (Negative) Urine Bilirubin (Negative) Urine Urobilinogen (<2.0) mg/dL Ur Leukocyte Esterase (Negative) Coronavirus (PCR) Not Detected (Not Detectd) Disposition Clinical Impression: Fall, Weakness Disposition: ADMITTED IP TO THIS HOSP Referrals: Dex Mcneal MD [Primary Care Provider] - 1-2 days Time of Disposition: 18:08
[2023-07-27 14:48] LABS: Basophils % (A) 0 %; Eosinophils # (A) 0.1 k/uL (0-0.7); Eosinophils % (A) 2 %; HCT 32.5 % (34.0-46.0); HGB 10.8 gm/dL (11.4-16.0); Lymphocytes # (A) 0.9 k/uL (1.0-4.8); Lymphocytes % (A) 14 %; MCH 31.7 pg (25.0-35.0); MCHC 33.2 g/dL (31.0-37.0); MCV 95.5 fL (80.0-100.0); Mean Platelet Volume 8.7; Monocytes # (A) 0.6 k/uL (0-1.0); Monocytes % (A) 10 %; Neutrophils # (A) 4.5 k/uL (1.3-7.7); Neutrophils % (A) 72 %; Platelet Count 223 k/uL (150-450); RDW 13.8 % (11.5-15.5); WBC 6.2 k/uL (3.8-10.6)
[2023-07-27 14:53] LABS: Appearance,Urine Clear (Clear); Bilirubin,Urine Negative (Negative); Blood,Urine Negative (Negative); Color,Urine Yellow; Glucose,Urine (UA) Negative (Negative); Ketones,Urine 1+ (Negative); Leukocyte Esterase,Urine Negative (Negative); Nitrite,Urine Negative (Negative); PH, Urine 5.5 (5.0-8.0); Protein,Urine Trace (Negative); Specific Gravity,Urine 1.014 (1.001-1.035); Urobilinogen,Urine <2.0 mg/dL (<2.0)
[2023-07-27 14:57] LABS: INR 1.9 (<1.2); Partial Thromboplastin Time 34.1 sec (22.0-30.0); Prothrombin Time 18.4 sec (9.0-12.0)
[2023-07-27 15:05] LABS: ALT 24 U/L (4-34); AST 30 U/L (14-36); African American GFR (CKD) 35 (>60 ml/min/1.73 sqM); Albumin 4.1 g/dL (3.5-5.0); Alkaline Phosphatase 96 U/L (38-126); Anion Gap 12 mmol/L; Blood Urea Nitrogen 40 mg/dL (7-17); Calcium 9.5 mg/dL (8.4-10.2); Carbon Dioxide 16 mmol/L (22-30); Chloride 111 mmol/L (98-107); Glucose 80 mg/dL (74-99); Magnesium 2.4 mg/dL (1.6-2.3); Non-African American GFR(CKD) 31 (>60 ml/min/1.73 sqM); Sodium 139 mmol/L (137-145); Total Bilirubin 0.7 mg/dL (0.2-1.3); Total Protein 7.2 g/dL (6.3-8.2)
--- NOTE | 2023-07-27 15:06 | XR ---
EXAMINATION TYPE: XR chest 2V DATE OF EXAM: 07/27/2023 COMPARISON: 01/24/2023 TECHNIQUE: PA and lateral views submitted. HISTORY: Weakness FINDINGS: The lungs are clear and there is no pneumothorax, pleural effusion, or focal pneumonia. Mild cardiom egaly but no overt failure. Osseous structures demonstrate hypertrophic and degenerative changes of t he spine. Emphysematous changes. Postsurgical changes overlying cervical spine and lumbar spine. Line ar density along the right lateral lung margin may be related atelectasis or superimposed structures\s carring. IMPRESSION: 1. No acute process.
[2023-07-27] MEDS: SODIUM CHLORIDE 0.9% 1,000 ML IV SCH (18:35)
[2023-07-27] MEDS ORDERED: ALBUTEROL NEBULIZED 2.5 MG/3 ML INHALATION PRN (19:26)
[2023-07-27] MEDS ORDERED: IPRATROPIUM 0.5 MG/2.5 ML NEBU INHALATION PRN (19:26)
[2023-07-27] MEDS ORDERED: WARFARIN 2 MG TAB PO ONE (20:00)
[2023-07-27] MEDS: IPRATROPIUM-ALBUTEROL 3 ML NEB INHALATION PRN (20:45)
[2023-07-27] MEDS: ONDANSETRON 4 MG/2 ML VIAL IVP PRN (22:41)
[2023-07-27] MEDS: METOPROLOL TARTRATE 25 MG TAB PO SCH (22:42)
[2023-07-27] MEDS: PREGABALIN 100 MG CAP PO SCH (22:42)
[2023-07-27] MEDS: PANTOPRAZOLE 40 MG TABLET PO SCH (22:42)
--- NOTE | 2023-07-28 03:51 | P.HPIM ---
History of Present Illness H&P Date: 07/27/23 Chief Complaint: fall 77 year old female with afib on coumadin patient was at her baseline status of health last week, but since Tuesday 3 days ago , she was having URI symptoms with sore throat and runny nose, and cough, denies any chest pain or trouble breathing, no diarrhea or changse in urinary habits, denies nausea or vomiting she was with her as he is taking care of her due to progressive generalized weakness since beginning of the week, when she suddenly felt very weak and collapsed , he was near her and was able to catch her , she denies any head injury , denies passing out, denies any associated heart racing, skipping beats, dizziness or lightheadedness. she just felt very weak and her body could not support her she denies any history of falls or anything similar to this , she denies fever chills, but since beginning of the weak she had poor PO intake she denies any GI bleeding review of systems Pertinent positives as noted in HPI. All other systems were reviewed and are negative on exam Constitutional: No acute distress, conversant, pleasant Eyes: Anicteric sclerae, moist conjunctiva, Pupils equal round reactive to light ENMT: NC/AT Oropharynx clear, no erythema, or exudates Neck: Supple, no masses, or JVD No carotid bruits No thyromegaly Lungs: Clear to auscultation Clear to percussion Normal respiratory effort, no accessory muscle use Cardiovascular: Heart regular in rate and rhythm, No murmurs, gallops, or rubs No peripheral edema Abdominal: Soft Nontender, no guarding, rebound or rigidity Abdomen moving with respiration Normoactive bowel sounds No hepatomegaly, No splenomegaly No palpable mass No abdominal wall hernia noted Extremities: No digital cyanosis No clubbing Pedal pulses intact and symmetrical Radial pulses intact and symmetrical No calf tenderness Psychiatric: Alert and oriented to person, place and time Appropriate affect fair judgement Neuro Muscles Strength 4/5 in all 4 extremities Sensation to light touch grossly present throughout Cranial nerves II-XII grossly intact Lymphatics: no palpable cervical or supraclavicular lymph nodes Past Medical History Past Medical History: Atrial Flutter, Asthma, Cancer, COPD, CVA/TIA, GERD/Reflux, GI Bleed, Hypertension, Memory Impairment, Myocardial Infarction ([place]), Osteoarthritis (OA), Rheumatoid Arthritis (RA) Additional Past Medical History / Comment(s): Chronic cough. Back pain, migraines. Occasional slight difficulty with swallowing. 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 Hx kidney stones, "kidney function low", raynauds disease Last Myocardial Infarction Date:: 2012 History of Any Multi-Drug Resistant Organisms: None Reported Past Surgical History: Back Surgery, Cholecystectomy, Heart Catheterization, Hysterectomy, Joint Replacement, Orthopedic Surgery Additional Past Surgical History / Comment(s): RODS & CAGES IN BACK, RIGHT HIP REPLACEMENT, PARTIAL THYROIDECTOMY, BILATERAL KNEE REPLACEMENTS, NECK SURGERY WITH LIDIA AND CAGES, MELANOMA REMOVED FROM FACE X4, REPAIR OF HEMATOMA/FEMORAL ARTERY AFTER HEART CATHETERIZATION,rt foot bone spur removed Past Anesthesia/Blood Transfusion Reactions: Previous Problems w/ Anesthesia, Motion Sickness, Postoperative Nausea & Vomiting (PONV) Additional Past Anesthesia/Blood Transfusion Reaction / Comment(s): Hard to wake up. Past Psychological History: Depression Smoking Status: Never smoker Past Alcohol Use History: None Reported Past Drug Use History: None Reported - Past Family History Sister(s) Family Medical History: Cancer Brother(s) Family Medical History: Cancer Mother Family Medical History: Myocardial Infarction ([place]) Additional Family Medical History / Comment(s): Mother of a [place] at the age of 76yrs. Father History Unknown: Yes Family Medical History: Chest Pain / Angina Medications and Allergies Home Medications Medication Instructions Recorded Confirmed Type Pantoprazole Sodium [Protonix] 40 mg PO BID 05/14/14 07/27/23 History Cholecalciferol [Vitamin D3 (25 50 mcg PO DAILY 06/16/22 07/27/23 History Mcg = 1000 Iu)] Cyanocobalamin (Vitamin B-12) 1,000 mcg PO DAILY 06/16/22 07/27/23 History [Vitamin B-12] Leflunomide [Arava] 20 mg PO DAILY 08/03/22 07/27/23 History Lysine 500 mg PO DAILY 08/03/22 07/27/23 History Ondansetron Odt [Zofran ODT] 4 mg PO Q8HR PRN #10 tab 09/03/22 07/27/23 Rx Warfarin Sodium 4 mg PO TH 12/07/22 07/27/23 History Magnesium Oxide [Mag-Ox] 400 mg PO DAILY #30 tab 12/12/22 07/27/23 Rx Amiodarone [Cordarone] 200 mg PO DAILY 01/24/23 07/27/23 History Pregabalin [Lyrica] 100 mg PO BID 01/24/23 07/27/23 History Spironolactone [Aldactone] 12.5 mg PO DAILY 01/24/23 07/27/23 History Warfarin Sodium 2 mg PO SUMOTUWEFRSA 01/25/23 07/27/23 History Furosemide [Lasix] 20 mg PO DAILY PRN #30 tab 01/27/23 07/27/23 Rx Sodium Bicarbonate Tab 650 mg PO DAILY 30 Days #30 tab 01/27/23 07/27/23 Rx Albuterol Nebulized [Ventolin 2.5 mg INHALATION RT-QID PRN 07/27/23 07/27/23 History Nebulized] DULoxetine HCL [Cymbalta] 60 mg PO DAILY 07/27/23 07/27/23 History Ipratropium Nebulized [Atrovent 0.5 mg INHALATION RT-Q6H PRN 07/27/23 07/27/23 History Nebulized 0.2 MG/ML] Metoprolol Tartrate [Lopressor] 25 mg PO BID 07/27/23 07/27/23 History estradioL [Estrace] 1 mg PO DAILY 07/27/23 07/27/23 History lisinopriL [Zestril] 2.5 mg PO DAILY 07/27/23 07/27/23 History Allergies Allergy/AdvReac Type Severity Reaction Status Date / Time cephalexin monohydrate Allergy Rash/Hives Verified 07/27/23 15:44 [From Keflex] diphenhydramine HCl Allergy SWELLING Verified 07/27/23 15:44 [From Benadryl] OF TONGUE, SOB enoxaparin [From Lovenox] Allergy Rash/Hives Verified 07/27/23 15:44 Penicillins Allergy SWELLING, Verified 07/27/23 15:44 HIVES sulfamethoxazole Allergy Anaphylaxis, Verified 07/27/23 15:44 [From Bactrim] Swelling trimethoprim [From Bactrim] Allergy Anaphylaxis, Verified 07/27/23 15:44 Swelling aspirin AdvReac EXCESS Verified 07/27/23 15:44 BLEEDING garlic AdvReac Nausea Verified 07/27/23 15:44 milk AdvReac Abdominal Verified 07/27/23 15:44 Pain morphine AdvReac Vomiting Verified 07/27/23 15:44 milk chocolate AdvReac Nausea Uncoded 07/27/23 13:39 Physical Exam Vitals: Vital Signs Temp Pulse Pulse Resp BP BP Pulse Ox 07/27/23 19:03 97.8 F 42 L 18 149/67 99 07/27/23 18:00 60 18 134/80 97 07/27/23 16:47 68 18 138/64 96 07/27/23 13:33 97.2 F L 70 18 137/65 96 Intake and Output 07/27/23 07/27/23 07/27/23 06:59 14:59 22:59 Other: Weight 58.513 kg Results CBC & Chem 7: 07/27/23 10:41 07/27/23 14:06 Labs: Abnormal Lab Results - Last 24 Hours (Table) 07/27/23 07/27/23 07/27/23 Range/Units 10:41 14:06 14:06 RBC 3.40 L (3.80-5.40) m/uL Hgb 10.8 L (11.4-16.0) gm/dL Hct 32.5 L (34.0-46.0) % Lymphocytes # 0.9 L (1.0-4.8) k/uL PT 18.4 H (9.0-12.0) sec INR 1.9 H (<1.2) APTT 34.1 H (22.0-30.0) sec Chloride (98-107) mmol/L Carbon Dioxide (22-30) mmol/L BUN (7-17) mg/dL Creatinine (0.52-1.04) mg/dL Magnesium (1.6-2.3) mg/dL Urine Protein Trace H (Negative) Urine Ketones 1+ H (Negative) 07/27/23 Range/Units 14:06 RBC (3.80-5.40) m/uL Hgb (11.4-16.0) gm/dL Hct (34.0-46.0) % Lymphocytes # (1.0-4.8) k/uL PT (9.0-12.0) sec INR (<1.2) APTT (22.0-30.0) sec Chloride 111 H (98-107) mmol/L Carbon Dioxide 16 L (22-30) mmol/L BUN 40 H (7-17) mg/dL Creatinine 1.61 H (0.52-1.04) mg/dL Magnesium 2.4 H (1.6-2.3) mg/dL Urine Protein (Negative) Urine Ketones (Negative) Assessment and Plan Assessment: 77 year old female with URI symptoms since Tuesday (3 days now) had an episode of generalized weakness and collapsed , no injuries as her was able to catch her. no loss of consciousness, I discussed the case with ED doc and I accepted the admission for HEENA dehydration for IVF hydration , supportive care and PT eval with anticipated length of stay < 2 midnights near syncope dehydration HEENA supportive care IVF hydration wtih normal saline s/p 1 L bolus , continue with 80 cc per hour BUN 40 cr 1.6 , continue PO bicarb Na 139 , K 4 fall precautions PT evaluation trops negative COVID negative monitor urine output and renal function repeat BMP in AM Aifb on coumadin dosing by pharmacy INR theraputic 1.9 continue amiodarone anemia , mild denies GI bleeding Hgb 10.8 full code DVT PPX on coumadin for afib
[2023-07-28] MEDS: PANTOPRAZOLE 40 MG TABLET PO SCH ×2 (06:21→18:02)
[2023-07-28] MEDS: SODIUM CHLORIDE 0.9% 1,000 ML IV SCH ×2 (06:21→20:33)
[2023-07-28 06:50] LABS: Prothrombin Time 19.9 sec (9.0-12.0)
[2023-07-28 08:57] LABS: BUN/Creat Ratio 22.29 Ratio (12.00-20.00); Blood Urea Nitrogen 31.2 mg/dL (9.0-27.0); Carbon Dioxide 15.9 mmol/L (21.6-31.8); Chloride 117 mmol/L (96-109); Glucose 62 mg/dL (70-110); Potassium 4.3 mmol/L (3.5-5.5); Sodium 146 mmol/L (135-145)
[2023-07-28] MEDS ORDERED: SPIRONOLACTONE 25 MG TAB PO SCH (09:00)
[2023-07-28] MEDS: ONDANSETRON 4 MG/2 ML VIAL IVP PRN (09:10)
[2023-07-28] MEDS: METOPROLOL TARTRATE 25 MG TAB PO SCH ×2 (09:11→20:33)
[2023-07-28] MEDS: PREGABALIN 100 MG CAP PO SCH ×2 (09:11→20:33)
[2023-07-28] MEDS: AMIODARONE 200 MG TAB PO SCH (09:11)
[2023-07-28] MEDS: SODIUM BICARBONATE TAB 650 MG TAB PO SCH (09:11)
--- NOTE | 2023-07-28 16:01 | P.PN ---
Subjective Progress Note Date: 07/28/23 No new complaints. Pt reports feeling better with IVF. Gen: awake, alert HEENT: normocephalic, atraumatic, good hearing acuity, moist mucous membranes Resp: good air exchange, breathing comfortably with no accessory muscle use CVS: good distal perfusion x 4, GI: soft, NTTP, ND : no SPT, no CVAT, nuñez catheter not present MSK: no pitting edema, no clubbing Neuro: non-focal, moving all extremities Psych: cooperative, euthymic mood Assessment/plan: 77 year old female with URI symptoms since Tuesday (3 days now) had an episode of generalized weakness and collapsed , no injuries as her was able to catch her. no loss of consciousness, I discussed the case with ED doc and I accepted the admission for HEENA dehydration for IVF hydration , supportive care and PT eval with anticipated length of stay < 2 midnights near syncope dehydration HEENA supportive care IVF hydration wtih normal saline s/p 1 L bolus , continue with 80 cc per hour BUN 40 cr 1.6 , continue PO bicarb Na 139 , K 4 fall precautions PT evaluation trops negative COVID negative monitor urine output and renal function repeat BMP in AM Aifb on coumadin dosing by pharmacy INR theraputic 1.9 continue amiodarone anemia , mild denies GI bleeding Hgb 10.8 full code DVT PPX on coumadin for afib Objective - Vital Signs Vital signs: Vital Signs Temp 95 F L 07/28/23 15:00 Pulse 72 07/28/23 15:00 Resp 18 07/28/23 15:00 BP 138/98 07/28/23 15:00 Pulse Ox 94 L 07/28/23 15:00 FiO2 Intake & Output 07/27/23 07/28/23 07/28/23 18:59 06:59 18:59 Intake Total 240 Output Total 1 Balance 239 Weight 58.513 kg Intake: Oral 240 Output: Urine/Stool Mix 1 Other: # Voids 2 - Labs CBC & Chem 7: 07/27/23 10:41 07/28/23 05:42 Labs: Abnormal Lab Results - Last 24 Hours (Table) 07/28/23 07/28/23 Range/Units 05:42 05:42 PT 19.9 H (9.0-12.0) sec INR 2.0 H (<1.2) Sodium 146 H (135-145) mmol/L Chloride 117 H (96-109) mmol/L Carbon Dioxide 15.9 L (21.6-31.8) mmol/L Anion Gap 13.10 H (4.00-12.00) mmol/L BUN 31.2 H (9.0-27.0) mg/dL Est GFR (CKD-EPI) 39 L (>=60) BUN/Creatinine Ratio 22.29 H (12.00-20.00) Ratio Glucose 62 L (70-110) mg/dL
[2023-07-28] MEDS ORDERED: WARFARIN 3 MG TAB PO ONE (18:00)
[2023-07-28] MEDS: IPRATROPIUM-ALBUTEROL 3 ML NEB INHALATION PRN (18:19)
[2023-07-28] MEDS ORDERED: ACETAMINOPHEN TAB 325 MG TAB PO PRN (20:17)
[2023-07-29] MEDS: PANTOPRAZOLE 40 MG TABLET PO SCH (05:58)
[2023-07-29 06:04] LABS: INR 2.7 (<1.2); Prothrombin Time 26.6 sec (9.0-12.0)
[2023-07-29 07:51] VITALS: BP 148/72; PULSE 80; RESP 16; TEMP 97.9
[2023-07-29] MEDS: METOPROLOL TARTRATE 25 MG TAB PO SCH (08:12)
[2023-07-29] MEDS: PREGABALIN 100 MG CAP PO SCH (08:12)
[2023-07-29] MEDS: AMIODARONE 200 MG TAB PO SCH (08:12)
[2023-07-29] MEDS: SODIUM BICARBONATE TAB 650 MG TAB PO SCH (08:12)
[2023-07-29] MEDS: IPRATROPIUM-ALBUTEROL 3 ML NEB INHALATION PRN (08:35)
[2023-07-29] MEDS: SODIUM CHLORIDE 0.9% 1,000 ML IV SCH (10:59)
--- NOTE | 2023-07-29 11:27 | CDI ---
Documentation Clarification Form Date: 07/29/2023 11:11:45 AM From: Melany Leiva RN, CCDS Phone: Admit Date: 07/28/2023 11:54:00 AM Patient Name: Lily Oliver Visit Number: [id number] Discharge Date: ATTENTION: The Clinical Documentation Specialists (CDI) and [facility] Coding Staff appreciate your assistance in clarifying documentation. Please respond to the clarification below the line at the bottom and electronically sign. The CDI & [facility] Coding staff will review the response and follow-up if needed. Please note: Queries are made part of the Legal Health Record. If you have any questions, please contact the author of this message via ITS. Dr. Kelsy Ricks Atrial Fibrillation is documented in the H/P and subsequent progress note. Additional clarification regarding the type of atrial fibrillation is requested. History/Risk Factors: a-fib on Coumadin, Asthma, Cancer, COPD, CVA/TIA, Hypertension, Rheumatoid Arthritis Clinical Indicators: 77-year-old female with a-fib on Coumadin presents with progressive generalized weakness. Admitted for acute kidney injury and dehydration. She has a history of atrial fibrillation ongoing treatment with Coumadin. 07/27 VS: 134/80 60 18 97% RA 19.4 EKG/telemetry: Atrial Fibrillation vent rate 71 bpm Treatment: Coumadin 3 MP PO 07/28 (PTD) Coumadin 1 MG PO 07/29 Amiodarone Hcl 200 MG PO Daily Monitor PT/INR Please clarify the type of atrial fibrillation, if known: [ ] Chronic [x] Permanent [ ] Paroxysmal [ ] Persistent [ ] Other, please specify [ ] Unable to determine (Template Last Revised: February 2021) MTDD
--- NOTE | 2023-07-29 14:40 | P.DS ---
Providers Date of admission: 07/28/23 11:54 Expected date of discharge: 07/29/23 Attending physician: Audrey Grissom DO Primary care physician: Dex Mcneal MD Hospital Course: Presyncope Dehydration HEENA Paroxysmal Aifb on coumadin dosing by pharmacy anemia , mild Hospital Course: 77 year old female with URI symptoms since Tuesday (3 days now) had an episode of generalized weakness and collapsed. She was found to be dehydrated with acute kidney injury. She was started on IVF, and by day 3 of hospitalization she was feeling significantly improved. She was seen by PT on day 2 of hospitalization and was noted to be modified independent, but with borderline gen weakness with recommendations between [facility] and SNF pending progress. She did improve again by day of discharge and was re-evaluated and deemed safe to return home with [facility]. She will f/u with her PCP. Her lasix was discontinued on discharge. I spent 34 minutes coordinating this discharge on 07/29 Gen: awake, alert HEENT: normocephalic, atraumatic, good hearing acuity, moist mucous membranes Resp: good air exchange, breathing comfortably with no accessory muscle use CVS: good distal perfusion x 4, GI: soft, NTTP, ND : no SPT, no CVAT, nuñez catheter not present MSK: no pitting edema, no clubbing Neuro: non-focal, moving all extremities Psych: cooperative, euthymic mood Plan - Discharge Summary New Discharge Prescriptions: Continue Pantoprazole Sodium [Protonix] 40 mg PO BID Cholecalciferol [Vitamin D3 (25 Mcg = 1000 Iu)] 50 mcg PO DAILY Lysine 500 mg PO DAILY Magnesium Oxide [Mag-Ox] 400 mg PO DAILY #30 tab Pregabalin [Lyrica] 100 mg PO BID Spironolactone [Aldactone] 12.5 mg PO DAILY Warfarin Sodium 2 mg PO SUMOTUWEFRSA Ipratropium Nebulized [Atrovent Nebulized 0.2 MG/ML] 0.5 mg INHALATION RT-Q6H PRN PRN Reason: Shortness Of Breath estradioL [Estrace] 1 mg PO DAILY Metoprolol Tartrate [Lopressor] 25 mg PO BID lisinopriL [Zestril] 2.5 mg PO DAILY DULoxetine HCL [Cymbalta] 60 mg PO DAILY Cyanocobalamin (Vitamin B-12) [Vitamin B-12] 1,000 mcg PO DAILY Leflunomide [Arava] 20 mg PO DAILY Ondansetron Odt [Zofran ODT] 4 mg PO Q8HR PRN #10 tab PRN Reason: Nausea Warfarin Sodium 4 mg PO TH Amiodarone [Cordarone] 200 mg PO DAILY Sodium Bicarbonate Tab 650 mg PO DAILY 30 Days #30 tab Albuterol Nebulized [Ventolin Nebulized] 2.5 mg INHALATION RT-QID PRN PRN Reason: Shortness Of Breath Discontinued Furosemide [Lasix] 20 mg PO DAILY PRN #30 tab PRN Reason: Edema Discharge Medication List Pantoprazole Sodium [Protonix] 40 mg PO BID 05/14/14 [History] Cholecalciferol [Vitamin D3 (25 Mcg = 1000 Iu)] 50 mcg PO DAILY 06/16/22 [History] Cyanocobalamin (Vitamin B-12) [Vitamin B-12] 1,000 mcg PO DAILY 06/16/22 [History] Leflunomide [Arava] 20 mg PO DAILY 08/03/22 [History] Lysine 500 mg PO DAILY 08/03/22 [History] Ondansetron Odt [Zofran ODT] 4 mg PO Q8HR PRN #10 tab 09/03/22 [Rx] Warfarin Sodium 4 mg PO TH 12/07/22 [History] Magnesium Oxide [Mag-Ox] 400 mg PO DAILY #30 tab 12/12/22 [Rx] Amiodarone [Cordarone] 200 mg PO DAILY 01/24/23 [History] Pregabalin [Lyrica] 100 mg PO BID 01/24/23 [History] Spironolactone [Aldactone] 12.5 mg PO DAILY 01/24/23 [History] Warfarin Sodium 2 mg PO SUMOTUWEFRSA 01/25/23 [History] Sodium Bicarbonate Tab 650 mg PO DAILY 30 Days #30 tab 01/27/23 [Rx] Albuterol Nebulized [Ventolin Nebulized] 2.5 mg INHALATION RT-QID PRN 07/27/23 [History] DULoxetine HCL [Cymbalta] 60 mg PO DAILY 07/27/23 [History] Ipratropium Nebulized [Atrovent Nebulized 0.2 MG/ML] 0.5 mg INHALATION RT-Q6H PRN 07/27/23 [History] Metoprolol Tartrate [Lopressor] 25 mg PO BID 07/27/23 [History] estradioL [Estrace] 1 mg PO DAILY 07/27/23 [History] lisinopriL [Zestril] 2.5 mg PO DAILY 07/27/23 [History] Follow up Appointment(s)/Referral(s): Dex Mcneal MD [Primary Care Provider] - 1-2 days [facility], [NON-STAFF] - 1 Week Discharge Disposition: HOME WITH HOME HEALTH SERVICES
[2023-07-29] MEDS ORDERED: WARFARIN 1 MG TAB PO ONE (18:00)
--- NOTE | 2023-08-02 14:42 | CDI ---
Documentation Clarification Form Date: 08/02/2023 02:23:11 PM From: Aleisha Tony RN, CCDS Email: [email or web address] Admit Date: 07/28/2023 11:54:00 AM Patient Name: Lily Oliver Visit Number: [id number] Discharge Date: 07/29/2023 01:13:00 PM ATTENTION: The Clinical Documentation Specialists (CDI) and [facility] Coding Staff appreciate your assistance in clarifying documentation. Please respond to the clarification below the line at the bottom and electronically sign. The CDI & [facility] Coding staff will review the response and follow-up if needed. Please note: Queries are made part of the Legal Health Record. If you have any questions, please contact the author of this message via ITS. Dr. Kelsy Ricks Your patient has the documented symptom of weakness in the progress notes. Additional clarification regarding the etiology/cause of this symptom is requested. History/Risk Factors: Atrial flutter, asthma, Cancer, COPD, GERD, HTN, memory impairment, OA, RA. Presented with weakness and collapse. Clinical Indicators ED: "we did attempt multiple times to get her up and walk and she was too weak to do so and felt uncomfortable taking her home. H&P: "had an episode of generalized weakness and collapsed. No loss of consciousness." Discharge summary: "She was seen by PT on day 2 of hospitalization and was noted to be modified independent, but with borderline generalized weakness with recommendations between HHC and SNF pending progress. 07/28 PT: required assist to transfer OOB this am. Ambulates with short step gait with rolling walker. Increased fatigue with ambulation, requiring assist for support/balance. 07/28 OT: modified independent with self-care ability, uses rolling walker. Treatment: home with home health services; PT/OT; fall precautions Is there a corresponding diagnosis/etiology for this symptom of weakness? [ ] Age related physical debility [ ] Unable to determine [ ] Other, please specify MTDD
== END 2023-07-29 13:13 | disposition home health service (06) | DRG 683 ==
LOC: EC 13:32 → 6NMEDSUR 18:08 → OBSVTOIN 07-28 11:54
PROVIDERS: ADMIT Internal Medicine; ATTEND Internal Medicine
DX: N17.9 Acute kidney failure, unspecified (principal); I48.92 Unspecified atrial flutter; E86.0 Dehydration; I44.7 Left bundle-branch block, unspecified; I48.91 Unspecified atrial fibrillation; I25.2 Old myocardial infarction; K21.9 Gastro-esophageal reflux disease without esophagitis; I25.10 Atherosclerotic heart disease of native coronary artery without angina pectoris; M06.9 Rheumatoid arthritis, unspecified; M54.9 Dorsalgia, unspecified; Z79.01 Long term (current) use of anticoagulants; Z79.890 Hormone replacement therapy; Z79.899 Other long term (current) drug therapy; Z82.49 Family history of ischemic heart disease and other diseases of the circulatory system; Z85.820 Personal history of malignant melanoma of skin; Z87.442 Personal history of urinary calculi; Z96.641 Presence of right artificial hip joint; J44.9 Chronic obstructive pulmonary disease, unspecified; Z96.653 Presence of artificial knee joint, bilateral; E89.0 Postprocedural hypothyroidism; I73.00 Raynaud's syndrome without gangrene; Z20.822 Contact with and (suspected) exposure to COVID-19; Z87.11 Personal history of peptic ulcer disease; G43.909 Migraine, unspecified, not intractable, without status migrainosus; R13.10 Dysphagia, unspecified; Z88.5 Allergy status to narcotic agent; Z88.0 Allergy status to penicillin; Z88.2 Allergy status to sulfonamides; Z88.8 Allergy status to other drugs, medicaments and biological substances; Z88.6 Allergy status to analgesic agent; Z88.1 Allergy status to other antibiotic agents; Z91.011 Allergy to milk products
CPT/HCPCS: 36415; 71046; 80048; 80053; 81003; 83605; 83735; 84484; 85025; 85610; 85730; 87635; 93005; 94640; 96360; 96361; 99285

== ENCOUNTER 2023-08-01 13:46 | Inpatient (IN) | payer MEDICARE, BC ==
--- NOTE | 2023-08-01 14:25 | ED ---
Weakness HPI - General Source: patient, family, RN notes reviewed Mode of arrival: wheelchair Limitations: no limitations - History of Present Illness MD Complaint: generalized weakness <Frieda Middleton - Last Filed: 08/01/23 14:19> <Trevor Laws - Last Filed: 08/01/23 20:08> - General Chief complaint: Weakness Stated complaint: weakness Time Seen by Provider: 08/01/23 14:19 - History of Present Illness Initial comments: This is a 78 year old female who presents to the emergency department for weakness. She was admitted here last week and discharged 3 days ago for dehydration and generalized weakness. States that she was doing well after discharge, however yesterday she started to feel sick and increasingly weak again. Does report some difficulty breathing. Also states that she feels cold all of the time and has generalized body aches. (Frieda Middleton) - Related Data Home Medications Medication Instructions Recorded Confirmed Pantoprazole Sodium [Protonix] 40 mg PO BID 05/14/14 07/27/23 Cholecalciferol [Vitamin D3 (25 50 mcg PO DAILY 06/16/22 07/27/23 Mcg = 1000 Iu)] Cyanocobalamin (Vitamin B-12) 1,000 mcg PO DAILY 06/16/22 07/27/23 [Vitamin B-12] Leflunomide [Arava] 20 mg PO DAILY 08/03/22 07/27/23 Lysine 500 mg PO DAILY 08/03/22 07/27/23 Warfarin Sodium 4 mg PO TH 12/07/22 07/27/23 Amiodarone [Cordarone] 200 mg PO DAILY 01/24/23 07/27/23 Pregabalin [Lyrica] 100 mg PO BID 01/24/23 07/27/23 Spironolactone [Aldactone] 12.5 mg PO DAILY 01/24/23 07/27/23 Warfarin Sodium 2 mg PO SUMOTUWEFRSA 01/25/23 07/27/23 Albuterol Nebulized [Ventolin 2.5 mg INHALATION RT-QID PRN 07/27/23 07/27/23 Nebulized] DULoxetine HCL [Cymbalta] 60 mg PO DAILY 07/27/23 07/27/23 Ipratropium Nebulized [Atrovent 0.5 mg INHALATION RT-Q6H PRN 07/27/23 07/27/23 Nebulized 0.2 MG/ML] Metoprolol Tartrate [Lopressor] 25 mg PO BID 07/27/23 07/27/23 estradioL [Estrace] 1 mg PO DAILY 07/27/23 07/27/23 lisinopriL [Zestril] 2.5 mg PO DAILY 07/27/23 07/27/23 Previous Rx's Medication Instructions Recorded Ondansetron Odt [Zofran ODT] 4 mg PO Q8HR PRN #10 tab 09/03/22 Magnesium Oxide [Mag-Ox] 400 mg PO DAILY #30 tab 12/12/22 Sodium Bicarbonate Tab 650 mg PO DAILY 30 Days #30 tab 01/27/23 Allergies Allergy/AdvReac Type Severity Reaction Status Date / Time cephalexin monohydrate Allergy Rash/Hives Verified 07/27/23 15:44 [From Keflex] diphenhydramine HCl Allergy SWELLING Verified 07/27/23 15:44 [From Benadryl] OF TONGUE, SOB enoxaparin [From Lovenox] Allergy Rash/Hives Verified 07/27/23 15:44 Penicillins Allergy SWELLING, Verified 07/27/23 15:44 HIVES sulfamethoxazole Allergy Anaphylaxis, Verified 07/27/23 15:44 [From Bactrim] Swelling trimethoprim [From Bactrim] Allergy Anaphylaxis, Verified 07/27/23 15:44 Swelling aspirin AdvReac EXCESS Verified 07/27/23 15:44 BLEEDING garlic AdvReac Nausea Verified 07/27/23 15:44 milk AdvReac Abdominal Verified 07/27/23 15:44 Pain morphine AdvReac Vomiting Verified 07/27/23 15:44 milk chocolate AdvReac Nausea Uncoded 07/27/23 13:39 Review of Systems ROS Other: All systems not noted in ROS Statement are negative. <Frieda Middleton - Last Filed: 08/01/23 14:19> ROS Other: All systems not noted in ROS Statement are negative. <Trevor Laws - Last Filed: 08/01/23 20:08> ROS Statement: Those systems with pertinent positive or pertinent negative responses have been documented in the HPI. Past Medical History Past Medical History: Atrial Flutter, Asthma, Cancer, COPD, CVA/TIA, GERD/Reflux, GI Bleed, Hypertension, Memory Impairment, Myocardial Infarction (MN), Osteoarthritis (OA), Rheumatoid Arthritis (RA) Additional Past Medical History / Comment(s): Chronic cough. Back pain, migraines. Occasional slight difficulty with swallowing. 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 Hx kidney stones, "kidney function low", raynauds disease Last Myocardial Infarction Date:: 2012 History of Any Multi-Drug Resistant Organisms: None Reported Past Surgical History: Back Surgery, Cholecystectomy, Heart Catheterization, Hysterectomy, Joint Replacement, Orthopedic Surgery Additional Past Surgical History / Comment(s): RODS & CAGES IN BACK, RIGHT HIP REPLACEMENT, PARTIAL THYROIDECTOMY, BILATERAL KNEE REPLACEMENTS, NECK SURGERY WITH LIDIA AND CAGES, MELANOMA REMOVED FROM FACE X4, REPAIR OF HEMATOMA/FEMORAL ARTERY AFTER HEART CATHETERIZATION,rt foot bone spur removed Past Anesthesia/Blood Transfusion Reactions: Previous Problems w/ Anesthesia, Motion Sickness, Postoperative Nausea & Vomiting (PONV) Additional Past Anesthesia/Blood Transfusion Reaction / Comment(s): Hard to wake up. Past Psychological History: Depression Smoking Status: Never smoker Past Alcohol Use History: None Reported Past Drug Use History: None Reported - Past Family History Sister(s) Family Medical History: Cancer Brother(s) Family Medical History: Cancer Mother Family Medical History: Myocardial Infarction (MN) Additional Family Medical History / Comment(s): Mother of a MN at the age of 76yrs. Father History Unknown: Yes Family Medical History: Chest Pain / Angina <Frieda Middleton - Last Filed: 08/01/23 14:19> General Exam <Frieda Middleton - Last Filed: 08/01/23 14:19> General appearance: alert, in no apparent distress Head exam: Present: atraumatic, normocephalic Eye exam: Present: normal appearance, PERRL ENT exam: Present: normal exam Neck exam: Present: normal inspection. Absent: tenderness, meningismus Respiratory exam: Present: normal lung sounds bilaterally. Absent: respiratory distress, wheezes Cardiovascular Exam: Present: regular rate, irregular rhythm GI/Abdominal exam: Present: soft. Absent: distended, tenderness Extremities exam: Present: normal capillary refill, pedal edema Neurological exam: Present: alert, oriented X3, CN II-XII intact. Absent: motor sensory deficit Psychiatric exam: Present: normal affect, normal mood Skin exam: Present: warm, dry, intact <AmritlelairenaTrevor Rayshawn - Last Filed: 08/01/23 20:08> - General Exam Comments Initial Comments: Visual Physical Exam Vital signs reviewed General: Well-appearing, nontoxic, no acute distress. Head: Normocephalic, atraumatic Eyes: PERRLA, EOMI ENT: Airway patent Chest: Nonlabored breathing Skin: No visual rash, normal skin tone Neuro: Alert and oriented 3 Musculoskeletal: No gross abnormalities I performed the QuickNote portion of this chart. Signed Frieda Middleton PA-C. (Frieda Middleton) Course Vital Signs 08/01/23 08/01/23 08/01/23 14:22 18:32 19:57 Temperature 98.2 F Pulse Rate 58 L 64 71 Respiratory 18 16 17 Rate Blood Pressure 124/66 123/50 116/58 O2 Sat by Pulse 97 96 95 Oximetry Medical Decision Making - Lab Data Result diagrams: 08/01/23 15:59 08/01/23 15:59 <Trevor Laws N - Last Filed: 08/01/23 20:08> - Medical Decision Making Was pt. sent in by a medical professional or institution ([facility]HLIE Varela, DIRECT MAIL MARKETER, urgent care, hospital, or [facility]...) When possible be specific @ -No Did you speak to anyone other than the patient for history (EMS, parent, family, police, friend...)? What history was obtained from this source @ -No Did you review nursing and triage notes (agree or disagree)? Why? @ -I reviewed and agree with nursing and triage notes Were old charts reviewed (outside hosp., previous admission, EMS record, old EKG, old radiological studies, urgent care reports/EKG's, [facility] records)? Report findings @ -No old charts were reviewed Differential Diagnosis (chest pain, altered mental status, abdominal pain women, abdominal pain men, vaginal bleeding, weakness, fever, dyspnea, syncope, headache, dizziness, GI bleed, back pain, seizure, CVA, palpatations, mental health, musculoskeletal)? @ -[Differential Weakness: Hypoglycemia, shock, sepsis, hyponatremia, anemia, infection, MN, ETOH, adverse medicine reaction, overdose, stroke, this is not meant to be an all-inclusive list. EKG interpreted by me (3pts min.). @ -Left bundle branch block, atrial fibrillation rate is 68, QRS duration 143, QTC 509 X-rays interpreted by me (1pt min.). @ -[Chest x-ray negative for focal pneumonia or pneumothorax CT interpreted by me (1pt min.). @ -None done U/S interpreted by me (1pt. min.). @ -None done What testing was considered but not performed or refused? (CT, X-rays, U/S, l abs)? Why? @ -None What meds were considered but not given or refused? Why? @ -None Did you discuss the management of the patient with other professionals (professionals i.e. , PA, DIRECT MAIL MARKETER, lab, RT, psych nurse, social service liaison, round boner, teacher, dog license officer supervisor, nurse outreach case manager)? Give summary @ -Sound physician group Was smoking cessation discussed for >3mins.? @ -No Was critical care preformed (if so, how long)? @ -No Were there social determinants of health that impacted care today? How? (Homelessness, low income, unemployed, alcoholism, drug addiction, transportation, low edu. Level, literacy, decrease access to med. care, intermediate, rehab)? @ -No Was there de-escalation of care discussed even if they declined (Discuss DNR or withdrawal of care, Hospice)? DNR status @ -No What co-morbidities impacted this encounter? (DM, HTN, Smoking, COPD, CAD, Cancer, CVA, ARF, Chemo, Hep., AIDS, mental health diagnosis, sleep apnea, morbid obesity)? @ -[CHF, atrial fibrillation Was patient admitted / discharged? Hospital course, mention meds given and route, prescriptions, significant lab abnormalities, going to OR and other pertinent info. @ -[70-year-old female with progressive weakness. Patient was admitted, was possibly be transferred to [facility] for rehabilitation but declined and went home instead. She states she is not doing well at home. She will likely require placement. Laboratory testing is stable. Patient will be admitted at this time. Undiagnosed new problem with uncertain prognosis? @ -No Drug Therapy requiring intensive monitoring for toxicity (Heparin, Nitro, Insulin, Cardizem)? @ -No Were any procedures done? @ -No Diagnosis/symptom? @ -[Generalized weakness Acute, or Chronic, or Acute on Chronic? @ Acute Uncomplicated (without systemic symptoms) or Complicated (systemic symptoms)? @ -default Side effects of treatment? @ -No Exacerbation, Progression, or Severe Exacerbation? @ -No Poses a threat to life or bodily function? How? (Chest pain, USA, MN, pneumonia, PE, COPD, DKA, ARF, appy, cholecystitis, CVA, Diverticulitis, Homicidal, Suicidal, threat to staff... and all critical care pts) @ -[Yes, weakness, CHF, arrhythmia (Trevor Laws) - Lab Data Lab Results 08/01/23 08/01/23 08/01/23 Range/Units 15:59 15:59 15:59 WBC 7.7 (3.8-10.6) k/uL RBC 3.25 L (3.80-5.40) m/uL Hgb 10.4 L (11.4-16.0) gm/dL Hct 31.4 L (34.0-46.0) % MCV 96.6 (80.0-100.0) fL MCH 31.9 (25.0-35.0) pg MCHC 33.0 (31.0-37.0) g/dL RDW 14.1 (11.5-15.5) % Plt Count 232 (150-450) k/uL MPV 8.6 Neutrophils % 73 % Lymphocytes % 13 % Monocytes % 8 % Eosinophils % 4 % Basophils % 0 % Neutrophils # 5.6 (1.3-7.7) k/uL Lymphocytes # 1.0 (1.0-4.8) k/uL Monocytes # 0.6 (0-1.0) k/uL Eosinophils # 0.3 (0-0.7) k/uL Basophils # 0.0 (0-0.2) k/uL PT 24.4 H (9.0-12.0) sec INR 2.5 H (<1.2) APTT 35.4 H (22.0-30.0) sec Sodium 139 (137-145) mmol/L Potassium 3.5 (3.5-5.1) mmol/L Chloride 110 H (98-107) mmol/L Carbon Dioxide 16 L (22-30) mmol/L Anion Gap 13 mmol/L BUN 19 H (7-17) mg/dL Creatinine 1.29 H (0.52-1.04) mg/dL Est GFR (CKD-EPI)AfAm 46 (>60 ml/min/1.73 sqM) Est GFR (CKD-EPI)NonAf 40 (>60 ml/min/1.73 sqM) Glucose 86 (74-99) mg/dL Plasma Lactic Acid Chris (0.7-2.0) mmol/L Calcium 9.3 (8.4-10.2) mg/dL Magnesium 1.8 (1.6-2.3) mg/dL Total Bilirubin 0.5 (0.2-1.3) mg/dL AST 33 (14-36) U/L ALT 27 (4-34) U/L Alkaline Phosphatase 91 (38-126) U/L Troponin I (0.000-0.034) ng/mL NT-Pro-B Natriuret Pep 4080 pg/mL Total Protein 6.9 (6.3-8.2) g/dL Albumin 3.9 (3.5-5.0) g/dL TSH 2.680 (0.465-4.680) mIU/L 08/01/23 08/01/23 Range/Units 15:59 15:59 WBC (3.8-10.6) k/uL RBC (3.80-5.40) m/uL Hgb (11.4-16.0) gm/dL Hct (34.0-46.0) % MCV (80.0-100.0) fL MCH (25.0-35.0) pg MCHC (31.0-37.0) g/dL RDW (11.5-15.5) % Plt Count (150-450) k/uL MPV Neutrophils % % Lymphocytes % % Monocytes % % Eosinophils % % Basophils % % Neutrophils # (1.3-7.7) k/uL Lymphocytes # (1.0-4.8) k/uL Monocytes # (0-1.0) k/uL Eosinophils # (0-0.7) k/uL Basophils # (0-0.2) k/uL PT (9.0-12.0) sec INR (<1.2) APTT (22.0-30.0) sec Sodium (137-145) mmol/L Potassium (3.5-5.1) mmol/L Chloride (98-107) mmol/L Carbon Dioxide (22-30) mmol/L Anion Gap mmol/L BUN (7-17) mg/dL Creatinine (0.52-1.04) mg/dL Est GFR (CKD-EPI)AfAm (>60 ml/min/1.73 sqM) Est GFR (CKD-EPI)NonAf (>60 ml/min/1.73 sqM) Glucose (74-99) mg/dL Plasma Lactic Acid Chris 1.3 (0.7-2.0) mmol/L Calcium (8.4-10.2) mg/dL Magnesium (1.6-2.3) mg/dL Total Bilirubin (0.2-1.3) mg/dL AST (14-36) U/L ALT (4-34) U/L Alkaline Phosphatase (38-126) U/L Troponin I <0.012 (0.000-0.034) ng/mL NT-Pro-B Natriuret Pep pg/mL Total Protein (6.3-8.2) g/dL Albumin (3.5-5.0) g/dL TSH (0.465-4.680) mIU/L Disposition <Frieda Middleton - Last Filed: 08/01/23 14:19> Is patient prescribed a controlled substance at d/c from ED?: No Time of Disposition: 20:08 <Trevor Laws - Last Filed: 08/01/23 20:08> Clinical Impression: CHF (congestive heart failure), Generalized weakness Disposition: ADMITTED IP TO THIS HOSP Condition: Stable Referrals: Dex Mcneal MD [Primary Care Provider] - 1-2 days
--- NOTE | 2023-08-01 15:21 | XR ---
EXAMINATION TYPE: XR chest 2V DATE OF EXAM: 08/01/2023 3:11 PM COMPARISON: Chest radiographs from 07/27/2023 TECHNIQUE: XR chest 2V Frontal and lateral views of the chest. CLINICAL INDICATION:Female, 78 years old with history of CIELO; FINDINGS: Lungs/Pleura: There is flattening of the diaphragm with increased lucency of the lungs. No evidence o f pneumothorax, pleural effusion or focal consolidation. Pulmonary vascularity: Unremarkable. Heart/mediastinum: Cardiomediastinal silhouette is prominent in size. Musculoskeletal: No acute osseous pathology. Anterior cervical fusion hardware demonstrated. Mild deg enerative changes of the thoracic spine. IMPRESSION: 1. No acute cardiopulmonary disease process. 2. COPD changes.
[2023-08-01 16:44] LABS: Basophils % (A) 0 %; Eosinophils # (A) 0.3 k/uL (0-0.7); Eosinophils % (A) 4 %; HCT 31.4 % (34.0-46.0); HGB 10.4 gm/dL (11.4-16.0); Lymphocytes % (A) 13 %; MCH 31.9 pg (25.0-35.0); MCV 96.6 fL (80.0-100.0); Mean Platelet Volume 8.6; Monocytes # (A) 0.6 k/uL (0-1.0); Monocytes % (A) 8 %; Neutrophils # (A) 5.6 k/uL (1.3-7.7); Neutrophils % (A) 73 %; Platelet Count 232 k/uL (150-450); RBC 3.25 m/uL (3.80-5.40); RDW 14.1 % (11.5-15.5); WBC 7.7 k/uL (3.8-10.6)
[2023-08-01 16:53] LABS: INR 2.5 (<1.2); Partial Thromboplastin Time 35.4 sec (22.0-30.0); Prothrombin Time 24.4 sec (9.0-12.0)
[2023-08-01 16:58] LABS: ALT 27 U/L (4-34); AST 33 U/L (14-36); African American GFR (CKD) 46 (>60 ml/min/1.73 sqM); Albumin 3.9 g/dL (3.5-5.0); Alkaline Phosphatase 91 U/L (38-126); Anion Gap 13 mmol/L; Blood Urea Nitrogen 19 mg/dL (7-17); Calcium 9.3 mg/dL (8.4-10.2); Carbon Dioxide 16 mmol/L (22-30); Chloride 110 mmol/L (98-107); Glucose 86 mg/dL (74-99); Magnesium 1.8 mg/dL (1.6-2.3); Non-African American GFR(CKD) 40 (>60 ml/min/1.73 sqM); Potassium 3.5 mmol/L (3.5-5.1); Sodium 139 mmol/L (137-145); Total Bilirubin 0.5 mg/dL (0.2-1.3); Total Protein 6.9 g/dL (6.3-8.2)
[2023-08-01 17:06] LABS: NT-Pro-B-Type Natriuretic Pept 4080 pg/mL
[2023-08-01] MEDS ORDERED: NALOXONE 0.4 MG/ML 1 ML VIAL IV PRN (20:03)
[2023-08-01 20:32] LABS: Appearance,Urine Clear (Clear); Bilirubin,Urine Negative (Negative); Blood,Urine Negative (Negative); Color,Urine Light Yellow; Glucose,Urine (UA) Negative (Negative); Ketones,Urine Negative (Negative); Leukocyte Esterase,Urine Negative (Negative); Nitrite,Urine Negative (Negative); Protein,Urine Negative (Negative); Specific Gravity,Urine 1.011 (1.001-1.035); Urobilinogen,Urine <2.0 mg/dL (<2.0)
[2023-08-01] MEDS ORDERED: IPRATROPIUM-ALBUTEROL 3 ML NEB INHALATION PRN (23:56)
--- NOTE | 2023-08-01 23:57 | P.HPIM ---
History of Present Illness H&P Date: 08/01/23 Patient is a 78-year-old with a PMH of paroxysmal A. fib on Coumadin, chronic kidney disease, chronic normocytic anemia, COPD, hypertension, with a recent hospitalization who was recently admitted to the hospital for dehydration and acute kidney injury. The patient was in [place] advised to go to a detention facility for which she declined and opted for home with [facility]. The patient reports however that shortly after returning home, she had worsening general weakness and was unable to perform her ADLs, which prompted her to back to the emergency room. She denied any additional complaints. Denied experiencing chest discomfort, shortness of breath, fever, cough, nausea, vomiting, bowel movement, diarrhea. In the emergency room, a chest x-ray revealed no acute abnormalities A. fib at 6 8 bpm with a left bundle-branch block, unchanged from prior EKG. Laboratory evaluation revealed an INR of 2.5, hemoglobin 10.4 (at baseline) BUN 19, creatinine 1.29 (at baseline), troponin less than 0.012, proBNP 4080, lactic acid 1.3 and unremarked UA. ED documentation reviewed and case discussed with ED provider. Review of systems: Pertinent positives and negatives as discussed in HPI, a complete review of systems was performed and all other systems are negative. Physical examination: Vital signs reviewed General: non toxic, no distress, appears at stated age, normal weight Derm: no unusual rashes/lesions, warm Head: atraumatic, normocephalic, symmetric Eyes: EOMI, no lid lag, anicteric sclera, pupils equal round reactive to light ENT: Nose and ears atraumatic Neck: No cervical lymphadenopathy, trachea midline, supple Mouth: no lip lesion, mucus membranes moist Cardiovascular: S1S2 reg, no murmur, positive dorsalis pedis pulse bilateral, no edema Lungs: CTA bilateral, no rhonchi, no rales, no accessory muscle use Abdominal: soft, nontender to palpation, no guarding Ext: muscle strength 3 out of 5 in all 4 extremities grossly, no gross muscle atrophy, no contractures, Neuro: CN II-XI grossly intact, no gross focal neuro deficits Psych: Alert, oriented, appropriate affect Assessment: Debility Chronic Conditions: A. fib on Coumadin, chronic kidney disease, COPD, chronic anemia, hypertension Imaging: In the emergency room, a chest x-ray revealed no acute abnormalities A. fib at 68 bpm with a left bundle-branch block, unchanged from prior EKG. Data Review: Laboratory evaluation revealed an INR of 2.5, hemoglobin 10.4 (at baseline) BUN 19, creatinine 1.29 (at baseline), troponin less than 0.012, proBNP 4080, lactic acid 1.3 and unremarked UA. Plan: PT consult Continue with the following home medications: -Coumadin per pharmacy dose -Spironolactone 12.5 mg by mouth daily -Sodium bicarbonate 650 mg by mouth daily -Lyrica 100 mg by mouth twice a day -Protonix 40 g by mouth twice a day -Lopressor 25 mg by mouth twice a day -Magnesium 400 mg by mouth daily -Lisinopril 2.5 mg by mouth daily -Leflunomide 20 mg by mouth daily -Cymbalta 60 mg by mouth daily -Amiodarone 200 mg by mouth daily DVT prophylaxis: Coumadin The patient is admitted with an anticipated greater than 2 midnight stay for evaluation of debility CODE STATUS: Full Code Discussed with: Patient Anticipated discharge place: Home Past Medical History Past Medical History: Atrial Flutter, Asthma, Cancer, COPD, CVA/TIA, GERD/Reflux, GI Bleed, Hypertension, Memory Impairment, Myocardial Infarction (CO), Osteoarthritis (OA), Rheumatoid Arthritis (RA) Additional Past Medical History / Comment(s): Chronic cough. Back pain, migraines. Occasional slight difficulty with swallowing. 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 Hx kidney stones, "kidney function low", raynauds disease Last Myocardial Infarction Date:: 2012 History of Any Multi-Drug Resistant Organisms: None Reported Past Surgical History: Back Surgery, Cholecystectomy, Heart Catheterization, Hysterectomy, Joint Replacement, Orthopedic Surgery Additional Past Surgical History / Comment(s): RODS & CAGES IN BACK, RIGHT HIP REPLACEMENT, PARTIAL THYROIDECTOMY, BILATERAL KNEE REPLACEMENTS, NECK SURGERY WITH LIDIA AND CAGES, MELANOMA REMOVED FROM FACE X4, REPAIR OF HEMATOMA/FEMORAL A RTERY AFTER HEART CATHETERIZATION,rt foot bone spur removed Past Anesthesia/Blood Transfusion Reactions: Previous Problems w/ Anesthesia, Motion Sickness, Postoperative Nausea & Vomiting (PONV) Additional Past Anesthesia/Blood Transfusion Reaction / Comment(s): Hard to wake up. Past Psychological History: Depression Smoking Status: Never smoker Past Alcohol Use History: None Reported Past Drug Use History: None Reported - Past Family History Sister(s) Family Medical History: Cancer Brother(s) Family Medical History: Cancer Mother Family Medical History: Myocardial Infarction (CO) Additional Family Medical History / Comment(s): Mother of a CO at the age of 76yrs. Father History Unknown: Yes Family Medical History: Chest Pain / Angina Medications and Allergies Home Medications Medication Instructions Recorded Confirmed Type Pantoprazole Sodium [Protonix] 40 mg PO BID 05/14/14 08/01/23 History Cholecalciferol [Vitamin D3 (25 50 mcg PO DAILY 06/16/22 08/01/23 History Mcg = 1000 Iu)] Cyanocobalamin (Vitamin B-12) 1,000 mcg PO DAILY 06/16/22 08/01/23 History [Vitamin B-12] Leflunomide [Arava] 20 mg PO DAILY 08/03/22 08/01/23 History Lysine 500 mg PO DAILY 08/03/22 08/01/23 History Ondansetron Odt [Zofran ODT] 4 mg PO Q8HR PRN #10 tab 09/03/22 08/01/23 Rx Warfarin Sodium 4 mg PO TH 12/07/22 08/01/23 History Magnesium Oxide [Mag-Ox] 400 mg PO DAILY #30 tab 12/12/22 08/01/23 Rx Amiodarone [Cordarone] 200 mg PO DAILY 01/24/23 08/01/23 History Pregabalin [Lyrica] 100 mg PO BID 01/24/23 08/01/23 History Spironolactone [Aldactone] 12.5 mg PO DAILY 01/24/23 08/01/23 History Warfarin Sodium 2 mg PO SUMOTUWEFRSA 01/25/23 08/01/23 History Sodium Bicarbonate Tab 650 mg PO DAILY 30 Days #30 tab 01/27/23 08/01/23 Rx Albuterol Nebulized [Ventolin 2.5 mg INHALATION RT-QID PRN 07/27/23 08/01/23 History Nebulized] DULoxetine HCL [Cymbalta] 60 mg PO DAILY 07/27/23 08/01/23 History Ipratropium Nebulized [Atrovent 0.5 mg INHALATION RT-Q6H PRN 07/27/23 08/01/23 History Nebulized 0.2 MG/ML] Metoprolol Tartrate [Lopressor] 25 mg PO BID 07/27/23 08/01/23 History estradioL [Estrace] 1 mg PO DAILY 07/27/23 08/01/23 History lisinopriL [Zestril] 2.5 mg PO DAILY 07/27/23 08/01/23 History Allergies Allergy/AdvReac Type Severity Reaction Status Date / Time cephalexin monohydrate Allergy Rash/Hives Verified 08/01/23 21:08 [From Keflex] diphenhydramine HCl Allergy SWELLING Verified 08/01/23 21:08 [From Benadryl] OF TONGUE, SOB enoxaparin [From Lovenox] Allergy Rash/Hives Verified 08/01/23 21:08 Penicillins Allergy SWELLING, Verified 08/01/23 21:08 HIVES sulfamethoxazole Allergy Anaphylaxis, Verified 08/01/23 21:08 [From Bactrim] Swelling trimethoprim [From Bactrim] Allergy Anaphylaxis, Verified 08/01/23 21:08 Swelling aspirin AdvReac EXCESS Verified 08/01/23 21:08 BLEEDING garlic AdvReac Nausea Verified 08/01/23 21:08 milk AdvReac Abdominal Verified 08/01/23 21:08 Pain morphine AdvReac Vomiting Verified 08/01/23 21:08 milk chocolate AdvReac Nausea Uncoded 07/27/23 13:39 Physical Exam Vitals: Vital Signs Temp Pulse Resp BP Pulse Ox 08/01/23 22:12 65 08/01/23 21:28 70 19 139/82 93 L 08/01/23 19:57 71 17 116/58 95 08/01/23 18:32 64 16 123/50 96 08/01/23 14:22 98.2 F 58 L 18 124/66 97 Intake and Output 08/01/23 08/01/23 08/02/23 14:59 22:59 06:59 Other: Weight 62.596 kg Results CBC & Chem 7: 08/01/23 15:59 08/01/23 15:59 Labs: Abnormal Lab Results - Last 24 Hours (Table) 08/01/23 08/01/23 08/01/23 Range/Units 15:59 15:59 15:59 RBC 3.25 L (3.80-5.40) m/uL Hgb 10.4 L (11.4-16.0) gm/dL Hct 31.4 L (34.0-46.0) % PT 24.4 H (9.0-12.0) sec INR 2.5 H (<1.2) APTT 35.4 H (22.0-30.0) sec Chloride 110 H (98-107) mmol/L Carbon Dioxide 16 L (22-30) mmol/L BUN 19 H (7-17) mg/dL Creatinine 1.29 H (0.52-1.04) mg/dL
[2023-08-02] MEDS: IPRATROPIUM-ALBUTEROL 3 ML NEB INHALATION SCH ×3 (07:27→20:00)
[2023-08-02] MEDS ORDERED: METOCLOPRAMIDE 5 MG/ML 2 ML VIAL IVP PRN (08:50)
[2023-08-02 09:53] LABS: INR 2.1 (<1.2); Prothrombin Time 20.8 sec (9.0-12.0)
[2023-08-02] MEDS: SODIUM BICARBONATE TAB 650 MG TAB PO SCH (09:59)
[2023-08-02] MEDS: AMIODARONE 200 MG TAB PO SCH (09:59)
[2023-08-02] MEDS: DULoxetine HCL 60 MG CAPSULE.DR PO SCH (09:59)
[2023-08-02] MEDS: METOPROLOL TARTRATE 25 MG TAB PO SCH ×2 (09:59→21:33)
[2023-08-02] MEDS: MAGNESIUM OXIDE 400 MG TAB PO SCH (10:00)
[2023-08-02] MEDS: PANTOPRAZOLE 40 MG TABLET PO SCH ×2 (10:00→21:33)
[2023-08-02] MEDS: SPIRONOLACTONE 25 MG TAB PO SCH (10:00)
[2023-08-02] MEDS: PREGABALIN 100 MG CAP PO SCH ×2 (10:00→21:33)
[2023-08-02] MEDS: LACTATED RINGERS 1,000 ML IV SCH (10:40)
[2023-08-02] MEDS: LEFLUNOMIDE 20 MG TAB PO SCH ×2 (10:40→10:43)
--- NOTE | 2023-08-02 16:13 | P.PN ---
Subjective Progress Note Date: 08/02/23 Hospital Course: 78-year-old with a PMH of paroxysmal A. fib on Coumadin, chronic kidney disease, chronic normocytic anemia, COPD, hypertension, with a recent hospitalization who was recently admitted to the hospital for dehydration and acute kidney injury. In the emergency room, a chest x-ray revealed no acute abnormalities A. fib at 68 bpm with a left bundle-branch block, unchanged from prior EKG. Laboratory evaluation revealed an INR of 2.5, hemoglobin 10.4 (at baseline) BUN 19, creatinine 1.29 (at baseline), troponin less than 0.012, proBNP 4080, lactic acid 1.3 and unremarked UA. Patient admitted for generalized weakness. Will likely need to go to [facility] facility. Subjective: Patient seen and examined at bedside. No acute events overnight. Complaining of some nausea. Pertinent positives and negatives as discussed above, a complete review of systems was performed and all other systems are negative. Vitals Signs Reviewed. General: nontoxic, no distress, appears at stated age Derm: warm, dry Head: atraumatic, normocephalic, symmetric Eyes: EOMI, no lid lag, anicteric sclera Mouth: no lip lesion, mucus membranes moist Cardiovascular: S1S2 reg, no murmur Lungs: CTA bilateral, no rhonchi, no rales , no accessory muscle use Abdominal: soft, nontender to palpation, no guarding, no appreciable organomegaly Ext: no gross muscle atrophy, no edema, no contractures Neuro: CN II-XI grossly intact, no focal neuro deficits Psych: Alert, oriented, appropriate affect Data Reviewed Today: Pertinent Labs: INR 2.1 Imaging: No new imaging Assessment and Plan: Debility Nausea and vomiting Chronic Conditions: A. fib on Coumadin, chronic kidney disease, COPD, chronic anemia, hypertension -PT consulted -On IV Reglan as needed -IV fluids, 75 mL an hour Continue with the following home medications: -Coumadin per pharmacy dose -Spironolactone 12.5 mg by mouth daily -Sodium bicarbonate 650 mg by mouth daily -Lyrica 100 mg by mouth twice a day -Protonix 40 g by mouth twice a day -Lopressor 25 mg by mouth twice a day -Magnesium 400 mg by mouth daily -Lisinopril 2.5 mg by mouth daily -Leflunomide 20 mg by mouth daily -Cymbalta 60 mg by mouth daily -Amiodarone 200 mg by mouth daily DVT ppx: Warfarin Code status:FC Anticipated discharge place: Pending clinical course Anticipated discharge time: Pending clinical course Objective - Vital Signs Vital signs: Vital Signs Temp 98.7 F 08/02/23 13:47 Pulse 65 08/02/23 13:47 Resp 18 08/02/23 13:47 BP 104/55 08/02/23 13:47 Pulse Ox 95 08/02/23 13:47 FiO2 Intake & Output 08/01/23 08/02/23 08/02/23 18:59 06:59 18:59 Weight 62.596 kg 62.596 kg - Labs CBC & Chem 7: 08/01/23 15:59 08/01/23 15:59 Labs: Abnormal Lab Results - Last 24 Hours (Table) 08/01/23 08/01/23 08/01/23 Range/Units 15:59 15:59 15:59 RBC 3.25 L (3.80-5.40) m/uL Hgb 10.4 L (11.4-16.0) gm/dL Hct 31.4 L (34.0-46.0) % PT 24.4 H (9.0-12.0) sec INR 2.5 H (<1.2) APTT 35.4 H (22.0-30.0) sec Chloride 110 H (98-107) mmol/L Carbon Dioxide 16 L (22-30) mmol/L BUN 19 H (7-17) mg/dL Creatinine 1.29 H (0.52-1.04) mg/dL 08/02/23 Range/Units 09:12 RBC (3.80-5.40) m/uL Hgb (11.4-16.0) gm/dL Hct (34.0-46.0) % PT 20.8 H (9.0-12.0) sec INR 2.1 H (<1.2) APTT (22.0-30.0) sec Chloride (98-107) mmol/L Carbon Dioxide (22-30) mmol/L BUN (7-17) mg/dL Creatinine (0.52-1.04) mg/dL
[2023-08-02] MEDS: WARFARIN 2 MG TAB PO SCH (17:48)
[2023-08-03] MEDS: LACTATED RINGERS 1,000 ML IV SCH ×2 (01:07→11:50)
[2023-08-03 07:51] LABS: African American GFR (CKD) 53 (>60 ml/min/1.73 sqM); Anion Gap 9 mmol/L; Blood Urea Nitrogen 19 mg/dL (7-17); Carbon Dioxide 19 mmol/L (22-30); Chloride 110 mmol/L (98-107); Glucose 75 mg/dL (74-99); Non-African American GFR(CKD) 46 (>60 ml/min/1.73 sqM); Potassium 3.6 mmol/L (3.5-5.1); Sodium 138 mmol/L (137-145)
[2023-08-03 07:55] LABS: INR 2.3 (<1.2); Prothrombin Time 22.3 sec (9.0-12.0)
[2023-08-03] MEDS: DULoxetine HCL 60 MG CAPSULE.DR PO SCH (07:59)
[2023-08-03] MEDS: SODIUM BICARBONATE TAB 650 MG TAB PO SCH (07:59)
[2023-08-03] MEDS: PREGABALIN 100 MG CAP PO SCH ×2 (07:59→21:22)
[2023-08-03] MEDS: SPIRONOLACTONE 25 MG TAB PO SCH (08:00)
[2023-08-03] MEDS: PANTOPRAZOLE 40 MG TABLET PO SCH ×2 (08:00→21:22)
[2023-08-03] MEDS: METOPROLOL TARTRATE 25 MG TAB PO SCH ×2 (08:00→21:22)
[2023-08-03] MEDS: MAGNESIUM OXIDE 400 MG TAB PO SCH (08:00)
[2023-08-03] MEDS: AMIODARONE 200 MG TAB PO SCH (08:01)
[2023-08-03] MEDS: LEFLUNOMIDE 20 MG TAB PO SCH (08:06)
[2023-08-03 08:31] LABS: Basophils % (A) 0 %; Eosinophils # (A) 0.4 k/uL (0-0.7); Eosinophils % (A) 8 %; HCT 33.9 % (34.0-46.0); HGB 10.5 gm/dL (11.4-16.0); Hypochromasia Moderate; Lymphocytes # (A) 0.9 k/uL (1.0-4.8); Lymphocytes % (A) 20 %; MCH 30.6 pg (25.0-35.0); MCV 98.8 fL (80.0-100.0); Mean Platelet Volume 8.4; Monocytes # (A) 0.5 k/uL (0-1.0); Monocytes % (A) 12 %; Neutrophils # (A) 2.6 k/uL (1.3-7.7); Neutrophils % (A) 56 %; Platelet Count 198 k/uL (150-450); RBC 3.43 m/uL (3.80-5.40); WBC 4.6 k/uL (3.8-10.6)
[2023-08-03] MEDS: IPRATROPIUM-ALBUTEROL 3 ML NEB INHALATION SCH ×3 (08:42→20:23)
--- NOTE | 2023-08-03 12:26 | P.PN ---
Subjective Progress Note Date: 08/03/23 Hospital Course: 78-year-old with a PMH of paroxysmal A. fib on Coumadin, chronic kidney disease, chronic normocytic anemia, COPD, hypertension, with a recent hospitalization who was recently admitted to the hospital for dehydration and acute kidney injury. In the emergency room, a chest x-ray revealed no acute abnormalities A. fib at 68 bpm with a left bundle-branch block, unchanged from prior EKG. Laboratory evaluation revealed an INR of 2.5, hemoglobin 10.4 (at baseline) BUN 19, creatinine 1.29 (at baseline), troponin less than 0.012, proBNP 4080, lactic acid 1.3 and unremarked UA. Patient admitted for generalized weakness. Will likely need to go to [facility] facility. Subjective: Patient seen and examined at bedside. No acute events overnight. Nausea is resolved. He should having loose watery bowel movements. Also has reduced appetite. Pertinent positives and negatives as discussed above, a complete review of systems was performed and all other systems are negative. Vitals Signs Reviewed. General: nontoxic, no distress, appears at stated age Derm: warm, dry Head: atraumatic, normocephalic, symmetric Eyes: EOMI, no lid lag, anicteric sclera Mouth: no lip lesion, mucus membranes moist Cardiovascular: S1S2 reg, no murmur Lungs: CTA bilateral, no rhonchi, no rales , no accessory muscle use Abdominal: soft, nontender to palpation, no guarding, no appreciable organomegaly Ext: no gross muscle atrophy, no edema, no contractures Neuro: CN II-XI grossly intact, no focal neuro deficits Psych: Alert, oriented, appropriate affect Data Reviewed Today: Pertinent Labs: WBC 4.6, hemoglobin 10.5, INR 2.3, bicarb 19, creatinine 1.15 Imaging: No new imaging Assessment and Plan: Debility Nausea and vomiting, resolved Diarrhea Non-anion gap metabolic acidosis, improving Reduced appetite Chronic Conditions: A. fib on Coumadin, chronic kidney disease, COPD, chronic anemia, hypertension -Patient to go to [facility] facility at discharge -Continue lactated Ringer at 75 mL an hour -C. diff pending -On oral bicarbonate -Started on Marinol Continue with the following home medications: -Coumadin per pharmacy dose -Spironolactone 12.5 mg by mouth daily -Sodium bicarbonate 650 mg by mouth daily -Lyrica 100 mg by mouth twice a day -Protonix 40 g by mouth twice a day -Lopressor 25 mg by mouth twice a day -Magnesium 400 mg by mouth daily -Lisinopril 2.5 mg by mouth daily -Leflunomide 20 mg by mouth daily -Cymbalta 60 mg by mouth daily -Amiodarone 200 mg by mouth daily DVT ppx: Warfarin Code status:FC Anticipated discharge place: Pending clinical course Anticipated discharge time: Pending clinical course Objective - Vital Signs Vital signs: Vital Signs Temp 98.1 F 08/03/23 07:30 Pulse 80 08/03/23 12:25 Resp 17 08/03/23 01:31 BP 138/74 08/03/23 07:30 Pulse Ox 93 L 08/03/23 07:30 FiO2 Intake & Output 08/02/23 08/03/23 08/03/23 18:59 06:59 18:59 Intake Total 900 1230 Balance 900 1230 Weight 62.596 kg 62.5 kg Intake: Intake, IV Titration 300 750 Amount Lactated Ringers 1,000 ml 300 750 @ 75 mls/hr IV .[id number] [facility] Rx#:[id number] Oral 600 480 Other: Voiding Method Toilet Toilet Toilet # Voids 3 # Bowel Movements 3 - Labs CBC & Chem 7: 08/03/23 07:11 08/03/23 07:11 Labs: Abnormal Lab Results - Last 24 Hours (Table) 08/03/23 08/03/23 08/03/23 Range/Units 07:11 07:11 07:11 RBC 3.43 L (3.80-5.40) m/uL Hgb 10.5 L (11.4-16.0) gm/dL Hct 33.9 L (34.0-46.0) % Lymphocytes # 0.9 L (1.0-4.8) k/uL PT 22.3 H (9.0-12.0) sec INR 2.3 H (<1.2) Chloride 110 H (98-107) mmol/L Carbon Dioxide 19 L (22-30) mmol/L BUN 19 H (7-17) mg/dL Creatinine 1.15 H (0.52-1.04) mg/dL
[2023-08-03] MEDS ORDERED: droNABinol 2.5 MG CAP PO SCH (12:30)
--- NOTE | 2023-08-03 15:39 | CDI ---
Documentation Clarification Form Date: 08/03/2023 03:24:38 PM From: Aleisha Tony RN, CCDS Email: [email or web address] Admit Date: 08/01/2023 08:03:00 PM Patient Name: Lily Oliver Visit Number: [id number] Discharge Date: ATTENTION: The Clinical Documentation Specialists (CDI) and [facility] Coding Staff appreciate your assistance in clarifying documentation. Please respond to the clarification below the line at the bottom and electronically sign. The CDI & [facility] Coding staff will review the response and follow-up if needed. Please note: Queries are made part of the Legal Health Record. If you have any questions, please contact the author of this message via ITS. Dr. Hollis Marley Your patient has the documented symptom of weakness and debility in the progress notes. Additional clarification regarding the etiology/cause of this symptom is requested. History/Risk Factors: paroxysmal A. fib on Coumadin, chronic kidney disease, chronic normocytic anemia, COPD, hypertension. Recent admit for weakness, dehydration and [facility], declined [facility] facility at discharge. Presented back to ER with worsening weakness and unable to perform ADL's. Clinical Indicators: PT with recommendation for sub-acute rehabilitation at discharge H&P: "The patient reports that shortly after returning home, she had worsening general weakness and was unable to perform her ADLs, which prompted her back to the emergency room. 08/02 and 08/03 IM: "Patient admitted for generalized weakness." Treatment: PT/OT; fall precautions; will need [facility] facility at discharge Is there a corresponding diagnosis/etiology for this symptom of weakness? [ ] Age related physical debility along with recent illness and hospitalization [ ] Unable to determine [ ] Other, please specify MTDD
[2023-08-03] MEDS: droNABinol 2.5 MG CAP PO SCH (16:04)
[2023-08-03] MEDS: WARFARIN 2 MG TAB PO SCH (18:18)
[2023-08-04 07:22] LABS: INR 2.2 (<1.2); Prothrombin Time 21.2 sec (9.0-12.0)
[2023-08-04] MEDS: droNABinol 2.5 MG CAP PO SCH (08:28)
[2023-08-04] MEDS: IPRATROPIUM-ALBUTEROL 3 ML NEB INHALATION SCH (08:36)
[2023-08-04] MEDS: MAGNESIUM OXIDE 400 MG TAB PO SCH (08:59)
[2023-08-04] MEDS: PANTOPRAZOLE 40 MG TABLET PO SCH (08:59)
[2023-08-04] MEDS: AMIODARONE 200 MG TAB PO SCH (08:59)
[2023-08-04] MEDS: LEFLUNOMIDE 20 MG TAB PO SCH (09:00)
[2023-08-04] MEDS: SPIRONOLACTONE 25 MG TAB PO SCH (09:00)
[2023-08-04] MEDS: METOPROLOL TARTRATE 25 MG TAB PO SCH (09:00)
[2023-08-04] MEDS: DULoxetine HCL 60 MG CAPSULE.DR PO SCH (09:00)
[2023-08-04] MEDS: SODIUM BICARBONATE TAB 650 MG TAB PO SCH (09:00)
[2023-08-04] MEDS: PREGABALIN 100 MG CAP PO SCH (09:00)
[2023-08-04] MEDS: LACTATED RINGERS 1,000 ML IV SCH (10:21)
--- NOTE | 2023-08-04 11:33 | P.DS ---
Providers Date of admission: 08/01/23 20:03 Expected date of discharge: 08/04/23 Attending physician: Hollis Marley MD Primary care physician: Dex Mcneal MD Hospital Course: Discharge Diagnosis: Debility and weakness resulting from physical deconditioning secondary to recent illness/hospitalization and advanced age Nausea and vomiting, resolved Diarrhea. Resolved Non-anion gap metabolic acidosis, improving Reduced appetite Chronic A. fib on Coumadin, INR is therapeutic at 2.2. Patient will require continued monitoring of INR for continued adequate dosing of Coumadin. Chronic systolic heart failure with EF of 30-35% Chronic kidney disease stage IIIa COPD not in acute exacerbation Chronic anemia, secondary to chronic disease CKD Hospital Course: Patient is a very pleasant 78-year-old with a PMH of paroxysmal A. fib on Coumadin, chronic kidney disease, chronic normocytic anemia, COPD, hypertension, with a recent hospitalization who was recently admitted to the hospital for dehydration and acute kidney injury. In the emergency room, a chest x-ray revealed no acute abnormalities A. fib at 68 bpm with a left bundle-branch block, unchanged from prior EKG. Laboratory evaluation revealed an INR of 2.5, hemoglobin 10.4 (at baseline) BUN 19, creatinine 1.29 (at baseline), troponin less than 0.012, proBNP 4080, lactic acid 1.3 and unremarked UA. Patient admitted for generalized weakness and debility resulting from physical deconditioning secondary to recent illness and hospitalization exacerbated by advanced age. Patient was evaluated by physical and occupational therapy recommending inpatient rehab to rebuild endurance and strength. Medically, patient is stable for discharge at this time. Vital signs as follows blood pressure 137/73, heart rate 59, respiratory rate 18, temp 97.60 beats Fahrenheit, and SpO2 of 95% on room air. Patient has been accepted to [facility] for rehab and is stable for discharge to care home facility at this time. Patient was started on Marinol 2.5 mg twice daily to assist with increasing appetite. Physical Exam: Patient seen and examined at bedside. Vital signs reviewed and stable. General: Nontoxic, no distress and appears stated age. Derm: Skin warm and dry, normal coloration for ethnicity. Head: Atraumatic, normocephalic and symmetric. Eyes: EOMs intact, no lid lag, and anicteric sclera Mouth: no lip lesions, mucus membranes moist Cardiovascular: regular rate and rhythm with normal S1S2, no murmur, positive posterior tibial pulses bilaterally, and cap refill < 2 seconds. Lungs: Respirations even, regular, and unlabored on room air. Lungs CTA bilaterally, no rhonchi, no rales, no wheezing, and no accessory muscle usage. Abdominal: soft, nontender to palpation, no guarding, no appreciable organomegaly Ext: ROM intact. No gross muscle atrophy, no edema, no contractures Neuro: Speech clear, face symmetrical and CN II-XII grossly intact with no noted focal neuro deficits Psych: Alert and oriented to person, place, time, and situation. Appropriate and pleasant affect. A total of 34 minutes of time were spent preparing this complex discharge summary. Pt was discharged on 08/04/23 at 11:39 AM Patient was seen independently by Nurse Practitioner. This document was prepared using [employer] dictation software. Please allow for errors in security guard dispatcher while rare they do occur. Patient Condition at Discharge: Stable Plan - Discharge Summary Discharge Rx Participant: No New Discharge Prescriptions: New droNABinol [Marinol] 2.5 mg PO AC-BID #8 cap Continue Pantoprazole Sodium [Protonix] 40 mg PO BID Cholecalciferol [Vitamin D3 (25 Mcg = 1000 Iu)] 50 mcg PO DAILY Lysine 500 mg PO DAILY Magnesium Oxide [Mag-Ox] 400 mg PO DAILY #30 tab Spironolactone [Aldactone] 12.5 mg PO DAILY Warfarin Sodium 2 mg PO SUMOTUWEFRSA Ipratropium Nebulized [Atrovent Nebulized 0.2 MG/ML] 0.5 mg INHALATION RT-Q6H PRN PRN Reason: Shortness Of Breath Metoprolol Tartrate [Lopressor] 25 mg PO BID lisinopriL [Zestril] 2.5 mg PO DAILY DULoxetine HCL [Cymbalta] 60 mg PO DAILY Cyanocobalamin (Vitamin B-12) [Vitamin B-12] 1,000 mcg PO DAILY Leflunomide [Arava] 20 mg PO DAILY Ondansetron Odt [Zofran ODT] 4 mg PO Q8HR PRN #10 tab PRN Reason: Nausea Warfarin Sodium 4 mg PO TH Amiodarone [Cordarone] 200 mg PO DAILY Sodium Bicarbonate Tab 650 mg PO DAILY 30 Days #30 tab Albuterol Nebulized [Ventolin Nebulized] 2.5 mg INHALATION RT-QID PRN PRN Reason: Shortness Of Breath Pregabalin [Lyrica] 100 mg PO BID #6 cap Discontinued estradioL [Estrace] 1 mg PO DAILY Discharge Medication List Pantoprazole Sodium [Protonix] 40 mg PO BID 05/14/14 [History] Cholecalciferol [Vitamin D3 (25 Mcg = 1000 Iu)] 50 mcg PO DAILY 06/16/22 [History] Cyanocobalamin (Vitamin B-12) [Vitamin B-12] 1,000 mcg PO DAILY 06/16/22 [History] Leflunomide [Arava] 20 mg PO DAILY 08/03/22 [History] Lysine 500 mg PO DAILY 08/03/22 [History] Ondansetron Odt [Zofran ODT] 4 mg PO Q8HR PRN #10 tab 09/03/22 [Rx] Warfarin Sodium 4 mg PO TH 12/07/22 [History] Magnesium Oxide [Mag-Ox] 400 mg PO DAILY #30 tab 12/12/22 [Rx] Amiodarone [Cordarone] 200 mg PO DAILY 01/24/23 [History] Spironolactone [Aldactone] 12.5 mg PO DAILY 01/24/23 [History] Warfarin Sodium 2 mg PO SUMOTUWEFRSA 01/25/23 [History] Sodium Bicarbonate Tab 650 mg PO DAILY 30 Days #30 tab 01/27/23 [Rx] Albuterol Nebulized [Ventolin Nebulized] 2.5 mg INHALATION RT-QID PRN 07/27/23 [History] DULoxetine HCL [Cymbalta] 60 mg PO DAILY 07/27/23 [History] Ipratropium Nebulized [Atrovent Nebulized 0.2 MG/ML] 0.5 mg INHALATION RT-Q6H PRN 07/27/23 [History] Metoprolol Tartrate [Lopressor] 25 mg PO BID 07/27/23 [History] lisinopriL [Zestril] 2.5 mg PO DAILY 07/27/23 [History] Pregabalin [Lyrica] 100 mg PO BID #6 cap 08/04/23 [Rx] droNABinol [Marinol] 2.5 mg PO AC-BID #8 cap 08/04/23 [Rx] Follow up Appointment(s)/Referral(s): Dex Mcneal MD [Primary Care Provider] - 1-2 days Denis Hankins, [NON-STAFF] - As Needed Discharge Disposition: TRANSFER TO SNF/ECF
[2023-08-04 12:52] VITALS: BP 135/84; PULSE 82; RESP 17; TEMP 98.1
[2023-08-04] MEDS ORDERED: WARFARIN 2 MG TAB PO SCH (18:00)
== END 2023-08-04 14:40 | DRG 884 ==
LOC: EC 13:46 → 5NMEDONC 20:03 → 1SOBS 08-02 11:44 → 4SSUR 08-03 17:18
PROVIDERS: ADMIT Internal Medicine; ATTEND Internal Medicine
DX: R54 Age-related physical debility (principal); E87.20 Acidosis, unspecified; I13.0 Hypertensive heart and chronic kidney disease with heart failure and stage 1 through stage 4 chronic kidney disease, or unspecified chronic kidney disease; Z94.0 Kidney transplant status; I50.22 Chronic systolic (congestive) heart failure; E87.1 Hypo-osmolality and hyponatremia; D64.9 Anemia, unspecified; F32.A Depression, unspecified; D63.1 Anemia in chronic kidney disease; I12.9 Hypertensive chronic kidney disease with stage 1 through stage 4 chronic kidney disease, or unspecified chronic kidney disease; N18.31 Chronic kidney disease, stage 3a; E11.22 Type 2 diabetes mellitus with diabetic chronic kidney disease; I44.7 Left bundle-branch block, unspecified; I25.10 Atherosclerotic heart disease of native coronary artery without angina pectoris; I25.2 Old myocardial infarction; I48.0 Paroxysmal atrial fibrillation; I50.9 Heart failure, unspecified; Z87.442 Personal history of urinary calculi; Z85.820 Personal history of malignant melanoma of skin; Z82.49 Family history of ischemic heart disease and other diseases of the circulatory system; Z90.710 Acquired absence of both cervix and uterus; Z79.899 Other long term (current) drug therapy; Z79.890 Hormone replacement therapy; Z96.641 Presence of right artificial hip joint; Z96.653 Presence of artificial knee joint, bilateral; Z79.01 Long term (current) use of anticoagulants; Z88.1 Allergy status to other antibiotic agents; Z90.49 Acquired absence of other specified parts of digestive tract; Z88.2 Allergy status to sulfonamides; Z88.6 Allergy status to analgesic agent; Z88.0 Allergy status to penicillin; Z91.011 Allergy to milk products
CPT/HCPCS: 36415; 71046; 80048; 80053; 81003; 83605; 83735; 83880; 84443; 84484; 85025; 85610; 85730; 93005; 94640; 96361; 96374; 99285

== ENCOUNTER 2023-10-19 18:36 | Emergency (ER) | payer MEDICARE, BC ==
--- NOTE | 2023-10-19 18:56 | ED ---
Recheck HPI - General Stated Complaint: Abn labs Time Seen by Provider: 10/19/23 18:55 Source: patient, RN notes reviewed - History of Present Illness Initial Comments: Patient is a 78-year-old female presented ER with chief complaint of an increased INR. Patient is currently taking warfarin. Her last dose was this morning. Patient had an INR drawn at her contact center specialist's office and was called later today told to come to the ER due to it being 9. Patient is denying any current bleeding. She states she is no longer taking warfarin. Patient denies any chest pain, shortness of breath, abdominal pain, urinary symptoms, ritchie pheral edema. Denies fevers, chills, night sweats. - Related Data Home Medications Medication Instructions Recorded Confirmed Pantoprazole Sodium [Protonix] 40 mg PO BID 05/14/14 08/01/23 Cholecalciferol [Vitamin D3 (25 50 mcg PO DAILY 06/16/22 08/01/23 Mcg = 1000 Iu)] Cyanocobalamin (Vitamin B-12) 1,000 mcg PO DAILY 06/16/22 08/01/23 [Vitamin B-12] Leflunomide [Arava] 20 mg PO DAILY 08/03/22 08/01/23 Lysine 500 mg PO DAILY 08/03/22 08/01/23 Warfarin Sodium 4 mg PO TH 12/07/22 08/01/23 Amiodarone [Cordarone] 200 mg PO DAILY 01/24/23 08/01/23 Spironolactone [Aldactone] 12.5 mg PO DAILY 01/24/23 08/01/23 Warfarin Sodium 2 mg PO SUMOTUWEFRSA 01/25/23 08/01/23 Albuterol Nebulized [Ventolin 2.5 mg INHALATION RT-QID PRN 07/27/23 08/01/23 Nebulized] DULoxetine HCL [Cymbalta] 60 mg PO DAILY 07/27/23 08/01/23 Ipratropium Nebulized [Atrovent 0.5 mg INHALATION RT-Q6H PRN 07/27/23 08/01/23 Nebulized 0.2 MG/ML] Metoprolol Tartrate [Lopressor] 25 mg PO BID 07/27/23 08/01/23 lisinopriL [Zestril] 2.5 mg PO DAILY 07/27/23 08/01/23 Previous Rx's Medication Instructions Recorded Ondansetron Odt [Zofran ODT] 4 mg PO Q8HR PRN #10 tab 09/03/22 Magnesium Oxide [Mag-Ox] 400 mg PO DAILY #30 tab 12/12/22 Sodium Bicarbonate Tab 650 mg PO DAILY 30 Days #30 tab 01/27/23 Pregabalin [Lyrica] 100 mg PO BID #6 cap 08/04/23 droNABinol [Marinol] 2.5 mg PO AC-BID #8 cap 08/04/23 Allergies Allergy/AdvReac Type Severity Reaction Status Date / Time cephalexin monohydrate Allergy Rash/Hives Verified 10/19/23 20:04 [From Keflex] diphenhydramine HCl Allergy SWELLING Verified 10/19/23 20:04 [From Benadryl] OF TONGUE, SOB enoxaparin [From Lovenox] Allergy Rash/Hives Verified 10/19/23 20:04 Penicillins Allergy SWELLING, Verified 10/19/23 20:04 HIVES sulfamethoxazole Allergy Anaphylaxis, Verified 10/19/23 20:04 [From Bactrim] Swelling trimethoprim [From Bactrim] Allergy Anaphylaxis, Verified 10/19/23 20:04 Swelling aspirin AdvReac EXCESS Verified 10/19/23 20:04 BLEEDING garlic AdvReac Nausea Verified 10/19/23 20:04 milk AdvReac Abdominal Verified 10/19/23 20:04 Pain morphine AdvReac Vomiting Verified 10/19/23 20:04 milk chocolate AdvReac Nausea Uncoded 10/19/23 20:04 Review of Systems ROS Statement: Those systems with pertinent positive or pertinent negative responses have been documented in the HPI. ROS Other: All systems not noted in ROS Statement are negative. Past Medical History Past Medical History: Atrial Flutter, Asthma, Cancer, COPD, CVA/TIA, GERD/R eflux, GI Bleed, Hypertension, Memory Impairment, Myocardial Infarction ([place]), Osteoarthritis (OA), Rheumatoid Arthritis (RA) Additional Past Medical History / Comment(s): Chronic cough. Back pain, migraines. Occasional slight difficulty with swallowing. Hx gastic ulcer, H-Py oren, diverticulitis, hx melanoma on face X2. Hx kidney stones, "kidney function low", raynauds disease Last Myocardial Infarction Date:: 2012 History of Any Multi-Drug Resistant Organisms: None Reported Past Surgical History: Back Surgery, Cholecystectomy, Heart Catheterization, Hysterectomy, Joint Replacement, Orthopedic Surgery Additional Past Surgical History / Comment(s): RODS & CAGES IN BACK, RIGHT HIP REPLACEMENT, PARTIAL THYROIDECTOMY, BILATERAL KNEE REPLACEMENTS, NECK SURGERY WITH LIDIA AND CAGES, MELANOMA REMOVED FROM FACE X4, REPAIR OF HEMATOMA/FEMORAL ARTERY AFTER HEART CATHETERIZATION,rt foot bone spur removed Past Anesthesia/Blood Transfusion Reactions: Previous Problems w/ Anesthesia, Motion Sickness, Postoperative Nausea & Vomiting (PONV) Additional Past Anesthesia/Blood Transfusion Reaction / Comment(s): Hard to wake up. Past Psychological History: Depression Additional Psychological History / Comment(s): . Smoking Status: Never smoker Past Alcohol Use History: None Reported Past Drug Use History: None Reported - Past Family History Sister(s) Family Medical History: Cancer Brother(s) Family Medical History: Cancer Mother Family Medical History: Myocardial Infarction ([place]) Additional Family Medical History / Comment(s): Mother of a [place] at the age of 76yrs. Father History Unknown: Yes Family Medical History: Chest Pain / Angina General Exam - General Exam Comments Initial Comments: Visual Physical Exam Vital signs reviewed General: Well-appearing, nontoxic, no acute distress. Head: Normocephalic, atraumatic Eyes: PERRLA, EOMI ENT: Airway patent Chest: Nonlabored breathing Skin: No visual rash, normal skin tone Neuro: Alert and oriented 3 Musculoskeletal: No gross abnormalities Course Vital Signs 10/19/23 20:02 Temperature 97.8 F Pulse Rate 57 L Respiratory 18 Rate Blood Pressure 133/63 O2 Sat by Pulse 98 Oximetry Medical Decision Making - Medical Decision Making I performed the quick note portion of the exam. Electronically signed by London Joy PA-C Patient did received 5mg Vitamin K. Patient eloped from ER prior to completion to medical treatment. - Lab Data Result diagrams: 10/19/23 20:05 10/19/23 20:05 Lab Results 10/19/23 10/19/23 10/19/23 Range/Units 20:05 20:05 20:05 WBC 6.7 (3.8-10.6) k/uL RBC 3.45 L (3.80-5.40) m/uL Hgb 10.8 L (11.4-16.0) gm/dL Hct 32.8 L (34.0-46.0) % MCV 95.1 (80.0-100.0) fL MCH 31.4 (25.0-35.0) pg MCHC 33.1 (31.0-37.0) g/dL RDW 15.4 (11.5-15.5) % Plt Count 247 (150-450) k/uL MPV 8.5 Hypochromasia Slight PT 87.8 H (10.0-12.5) sec INR 8.9 H* (<1.2) APTT 57.7 H (22.0-30.0) sec Sodium 138 (137-145) mmol/L Potassium 3.6 (3.5-5.1) mmol/L Chloride 106 (98-107) mmol/L Carbon Dioxide 19 L (22-30) mmol/L Anion Gap 13 mmol/L BUN 37 H (7-17) mg/dL Creatinine 1.58 H (0.52-1.04) mg/dL Est GFR (CKD-EPI)AfAm 36 (>60 ml/min/1.73 sqM) Est GFR (CKD-EPI)NonAf 31 (>60 ml/min/1.73 sqM) Glucose 82 (74-99) mg/dL Calcium 8.9 (8.4-10.2) mg/dL Total Bilirubin 0.4 (0.2-1.3) mg/dL AST 27 (14-36) U/L ALT 17 (4-34) U/L Alkaline Phosphatase 112 (38-126) U/L Total Protein 6.9 (6.3-8.2) g/dL Albumin 4.0 (3.5-5.0) g/dL Disposition Clinical Impression: Left against medical advice Disposition: LEFT AGAINST MEDICAL ADVICE Condition: Undetermined Referrals: Dex Mcneal MD [Primary Care Provider] - 1-2 days Time of Disposition: 18:20
[2023-10-19] MEDS ORDERED: PHYTONADIONE ORAL 5 MG/5 ML ORAL.SYRG PO STA (19:19)
[2023-10-19 20:21] VITALS: BP 133/63; PULSE 57; RESP 18; TEMP 97.8
[2023-10-19 20:34] LABS: HCT 32.8 % (34.0-46.0); HGB 10.8 gm/dL (11.4-16.0); Hypochromasia Slight; MCH 31.4 pg (25.0-35.0); MCHC 33.1 g/dL (31.0-37.0); MCV 95.1 fL (80.0-100.0); Mean Platelet Volume 8.5; Platelet Count 247 k/uL (150-450); RBC 3.45 m/uL (3.80-5.40); RDW 15.4 % (11.5-15.5); WBC 6.7 k/uL (3.8-10.6)
[2023-10-19 20:52] LABS: Partial Thromboplastin Time 57.7 sec (22.0-30.0); Prothrombin Time 87.8 sec (10.0-12.5)
[2023-10-19 21:11] LABS: INR 8.9 (<1.2)
[2023-10-19 21:44] LABS: ALT 17 U/L (4-34); AST 27 U/L (14-36); African American GFR (CKD) 36 (>60 ml/min/1.73 sqM); Alkaline Phosphatase 112 U/L (38-126); Anion Gap 13 mmol/L; Blood Urea Nitrogen 37 mg/dL (7-17); Calcium 8.9 mg/dL (8.4-10.2); Carbon Dioxide 19 mmol/L (22-30); Chloride 106 mmol/L (98-107); Glucose 82 mg/dL (74-99); Non-African American GFR(CKD) 31 (>60 ml/min/1.73 sqM); Potassium 3.6 mmol/L (3.5-5.1); Sodium 138 mmol/L (137-145); Total Bilirubin 0.4 mg/dL (0.2-1.3); Total Protein 6.9 g/dL (6.3-8.2)
== END 2023-10-19 21:35 | disposition left against medical advice (07) ==
LOC: EC 18:36
DX: R79.1 Abnormal coagulation profile (principal); I10 Essential (primary) hypertension; I25.2 Old myocardial infarction; J44.89 Other specified chronic obstructive pulmonary disease; K21.9 Gastro-esophageal reflux disease without esophagitis; F32.A Depression, unspecified; M19.90 Unspecified osteoarthritis, unspecified site; Z79.01 Long term (current) use of anticoagulants; Z79.899 Other long term (current) drug therapy; Z88.0 Allergy status to penicillin; Z88.1 Allergy status to other antibiotic agents; Z88.2 Allergy status to sulfonamides; Z88.5 Allergy status to narcotic agent; Z88.6 Allergy status to analgesic agent; Z88.8 Allergy status to other drugs, medicaments and biological substances; Z91.011 Allergy to milk products; Z91.018 Allergy to other foods; Z53.29 Procedure and treatment not carried out because of patient's decision for other reasons
CPT/HCPCS: 36415; 80053; 85027; 85610; 85730; 99283

== ENCOUNTER → 2023-10-19 | Outpatient (CLI) | payer MEDICARE, BC ==
[2023-10-19 17:50] LABS: INR 9.1 (<1.2)
== END | disposition home or self-care (01) ==
LOC: LABWHC1 16:04
PROVIDERS: ATTEND Internal Medicine Interventional Cardiology
DX: I48.91 Unspecified atrial fibrillation (principal)
CPT/HCPCS: 36415; 85610

== ENCOUNTER 2023-12-22 12:00 | Inpatient (IN) | payer MEDICARE, BC ==
[2023-12-22 13:30] LABS: Basophils # (A) 0.1 k/uL (0-0.2); Basophils % (A) 1 %; Eosinophils # (A) 0.2 k/uL (0-0.7); Eosinophils % (A) 2 %; HCT 37.4 % (34.0-46.0); HGB 12.4 gm/dL (11.4-16.0); Lymphocytes # (A) 1.3 k/uL (1.0-4.8); Lymphocytes % (A) 20 %; MCH 31.3 pg (25.0-35.0); MCV 94.9 fL (80.0-100.0); Mean Platelet Volume 10.4; Monocytes # (A) 0.7 k/uL (0-1.0); Monocytes % (A) 10 %; Neutrophils # (A) 4.4 k/uL (1.3-7.7); Neutrophils % (A) 66 %; Platelet Count 223 k/uL (150-450); RBC 3.94 m/uL (3.80-5.40); RDW 13.8 % (11.5-15.5); WBC 6.7 k/uL (3.8-10.6)
[2023-12-22] MEDS: SODIUM CHLORIDE 0.9% 500 ML 500 ML IV ONE (13:31)
[2023-12-22] MEDS: ONDANSETRON 4 MG/2 ML VIAL IVP STA (13:31)
[2023-12-22 13:45] LABS: INR 1.1 (<1.2); Partial Thromboplastin Time 28.4 sec (22.0-30.0); Prothrombin Time 11.4 sec (10.0-12.5)
[2023-12-22 14:12] LABS: ALT 22 U/L (4-34); AST 36 U/L (14-36); African American GFR (CKD) 39 (>60 ml/min/1.73 sqM); Alkaline Phosphatase 112 U/L (38-126); Anion Gap 6 mmol/L; Blood Urea Nitrogen 36 mg/dL (7-17); Carbon Dioxide 25 mmol/L (22-30); Chloride 109 mmol/L (98-107); Glucose 80 mg/dL (74-99); Lipase 322 U/L (23-300); Magnesium 2.3 mg/dL (1.6-2.3); Non-African American GFR(CKD) 34 (>60 ml/min/1.73 sqM); Sodium 140 mmol/L (137-145); Total Bilirubin 0.7 mg/dL (0.2-1.3); Total Protein 6.8 g/dL (6.3-8.2)
[2023-12-22 14:20] LABS: NT-Pro-B-Type Natriuretic Pept 2010 pg/mL
--- NOTE | 2023-12-22 15:00 | ED ---
Chest Pain HPI - General Chief Complaint: Chest Pain Stated Complaint: chest pain Source: patient, EMS Mode of arrival: EMS Limitations: no limitations - History of Present Illness Initial Comments: 78-year-old female who presents to the emergency department from the cardiology office. Patient had nuclear medicine scan today. States that she finished the test and she was getting ready to go home. She had sudden onset of epigastric pain and near syncope. She felt short of breath. EMS was called to the cardiology office to transport the patient to the hospital. She does have a history of A-fib. States the pain has somewhat subsided at this time. Admits nausea without vomiting. Has tolerated stress testing in the past. No other alleviating, precipitating modifying factors - Related Data Home Medications Medication Instructions Recorded Confirmed Pantoprazole Sodium [Protonix] 40 mg PO BID 05/14/14 12/22/23 Cyanocobalamin (Vitamin B-12) 1,000 mcg PO DAILY 06/16/22 12/22/23 [Vitamin B-12] Lysine 1,000 mg PO DAILY 08/03/22 12/22/23 Warfarin Sodium 4 mg PO TH@209912/07/22 12/22/23 Amiodarone [Cordarone] 200 mg PO DAILY 01/24/23 12/22/23 Spironolactone [Aldactone] 12.5 mg PO DAILY 01/24/23 12/22/23 Warfarin Sodium 2 mg PO SUMOTUWEFRSA@209901/25/23 12/22/23 DULoxetine HCL [Cymbalta] 60 mg PO DAILY 07/27/23 12/22/23 Ipratropium Nebulized [Atrovent 0.5 mg INHALATION RT-BID 07/27/23 12/22/23 Nebulized 0.2 MG/ML] Metoprolol Tartrate [Lopressor] 25 mg PO BID 07/27/23 12/22/23 lisinopriL [Zestril] 2.5 mg PO DAILY 07/27/23 12/22/23 Acetaminophen [Tylenol Extra 1,000 mg PO Q6H PRN 12/22/23 12/22/23 Strength] Albuterol Inhaler [Ventolin Hfa 2 puff INHALATION RT-Q6H PRN 12/22/23 12/22/23 Inhaler] Cholecalciferol (Vitamin D3) 50 mcg PO DAILY 12/22/23 12/22/23 [Vitamin D3 (50 Mcg = 2000 Iu)] Furosemide [Lasix] 20 mg PO DAILY 12/22/23 12/22/23 Glucosam/Chond/Hyalu/Cf Borate 1 tab PO DAILY 12/22/23 12/22/23 [Move Free Joint Health Tablet] Vit C/E/Zn/Coppr/Lutein/Zeaxan 1 cap PO DAILY 12/22/23 12/22/23 [Preservision Areds 2 Softgel] estradioL [Estrace] 1 mg PO DAILY 12/22/23 12/22/23 Previous Rx's Medication Instructions Recorded Pregabalin [Lyrica] 100 mg PO BID #6 cap 08/04/23 Allergies Allergy/AdvReac Type Severity Reaction Status Date / Time cephalexin monohydrate Allergy Rash/Hives Verified 12/22/23 13:53 [From Keflex] diphenhydramine HCl Allergy SWELLING Verified 12/22/23 13:53 [From Benadryl] OF TONGUE, SOB enoxaparin [From Lovenox] Allergy Rash/Hives Verified 12/22/23 13:53 Penicillins Allergy SWELLING, Verified 12/22/23 13:53 HIVES sulfamethoxazole Allergy Anaphylaxis, Verified 12/22/23 13:53 [From Bactrim] Swelling trimethoprim [From Bactrim] Allergy Anaphylaxis, Verified 12/22/23 13:53 Swelling aspirin AdvReac EXCESS Verified 12/22/23 13:53 BLEEDING garlic AdvReac Nausea Verified 12/22/23 13:53 milk AdvReac Abdominal Verified 12/22/23 13:53 Pain morphine AdvReac Vomiting Verified 12/22/23 13:53 milk chocolate AdvReac Nausea Uncoded 12/22/23 13:53 Review of Systems ROS Statement: Those systems with pertinent positive or pertinent negative responses have been documented in the HPI. ROS Other: All systems not noted in ROS Statement are negative. Past Medical History Past Medical History: Atrial Flutter, Asthma, Cancer, COPD, CVA/TIA, GERD/Reflux, GI Bleed, Hypertension, Memory Impairment, Myocardial Infarction ([place]), Osteoarthritis (OA), Rheumatoid Arthritis (RA) Additional Past Medical History / Comment(s): Chronic cough. Back pain, migraines. Occasional slight difficulty with swallowing. 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 Hx kidney stones, "kidney function low", raynauds disease Last Myocardial Infarction Date:: 2012 History of Any Multi-Drug Resistant Organisms: None Reported Past Surgical History: Back Surgery, Cholecystectomy, Heart Catheterization, Hysterectomy, Joint Replacement, Orthopedic Surgery Additional Past Surgical History / Comment(s): RODS & CAGES IN BACK, RIGHT HIP REPLACEMENT, PARTIAL THYROIDECTOMY, BILATERAL KNEE REPLACEMENTS, NECK SURGERY WITH LIDIA AND CAGES, MELANOMA REMOVED FROM FACE X4, REPAIR OF HEMATOMA/FEMORAL ARTERY AFTER HEART CATHETERIZATION,rt foot bone spur removed Past Anesthesia/Blood Transfusion Reactions: Previous Problems w/ Anesthesia, Motion Sickness, Postoperative Nausea & Vomiting (PONV) Additional Past Anesthesia/Blood Transfusion Reaction / Comment(s): Hard to wake up. Past Psychological History: Depression Smoking Status: Never smoker Past Alcohol Use History: None Reported Past Drug Use History: None Reported - Past Family History Sister(s) Family Medical History: Cancer Brother(s) Family Medical History: Cancer Mother Family Medical History: Myocardial Infarction ([place]) Additional Family Medical History / Comment(s): Mother of a [place] at the age of 76yrs. Father History Unknown: Yes Family Medical History: Chest Pain / Angina General Exam Limitations: no limitations General appearance: alert, in no apparent distress Head exam: Present: atraumatic, normocephalic, normal inspection Eye exam: Present: normal appearance, PERRL, EOMI. Absent: scleral icterus, conjunctival injection, periorbital swelling ENT exam: Present: normal exam, mucous membranes moist Neck exam: Present: normal inspection. Absent: tenderness, meningismus, lymphadenopathy Respiratory exam: Present: normal lung sounds bilaterally. Absent: respiratory distress, wheezes, rales, rhonchi, stridor Cardiovascular Exam: Present: bradycardia, irregular rhythm, normal heart sounds . Absent: systolic murmur, diastolic murmur, rubs, gallop, clicks GI/Abdominal exam: Present: soft, normal bowel sounds. Absent: distended, tenderness, guarding, rebound, rigid Extremities exam: Present: normal inspection, full ROM, normal capillary refill. Absent: tenderness, pedal edema, joint swelling, calf tenderness Back exam: Present: normal inspection Neurological exam: Present: alert, oriented X3, CN II-XII intact Psychiatric exam: Present: normal affect, normal mood Skin exam: Present: warm, dry, intact, normal color. Absent: rash Course Vital Signs 12/22/23 12/22/23 12/22/23 12:04 13:32 15:46 Temperature 97.3 F L Pulse Rate 59 L 53 L 60 Respiratory 20 18 18 Rate Blood Pressure 119/63 134/63 131/82 O2 Sat by Pulse 97 97 96 Oximetry 12/22/23 12/22/23 12/22/23 17:03 18:21 19:52 Temperature Pulse Rate 55 L 61 53 L Respiratory 18 16 Rate Blood Pressure 143/79 146/70 O2 Sat by Pulse 99 96 Oximetry 12/22/23 12/22/23 12/23/23 20:09 23:48 01:54 Temperature Pulse Rate 54 L 71 58 L Respiratory 18 16 Rate Blood Pressure 109/51 112/47 O2 Sat by Pulse 93 L 98 Oximetry Chest Pain MDM - MDM Was pt. sent in by a medical professional or institution (, PA, [employer]ER, urgent care, hospital, or senior care...) When possible be specific @ -cardiology office Did you speak to anyone other than the patient for history (EMS, parent, family, police, friend...)? What history was obtained from this source @ -EMS Did you review nursing and triage notes (agree or disagree)? Why? @ -I reviewed and agree with nursing and triage notes Were old charts reviewed (outside hosp., previous admission, EMS record, old EKG, old radiological studies, urgent care reports/EKG's, senior care records)? Report findings @ -No old charts were reviewed Differential Diagnosis (chest pain, altered mental status, abdominal pain women, abdominal pain men, vaginal bleeding, weakness, fever, dyspnea, syncope, headache, dizziness, GI bleed, back pain, seizure, CVA, palpatations, mental health, musculoskeletal)? @ -stemi, nstemi, unstable angina, pancreatitis, pe EKG interpreted by me (3pts min.). @ -Yes and demonstrates A-fib with a rate of 53. QRS 145. QTc of 532. No acute ST segment elevations or depressions X-rays interpreted by me (1pt min.). @ -yes and demonstrates no acute process CT interpreted by me (1pt min.). @ -None done U/S interpreted by me (1pt. min.). @ -None done What testing was considered but not performed or refused? (CT, X-rays, U/S, labs)? Why? @ None What meds were considered but not given or refused? Why? @ -None Did you discuss the management of the patient with other professionals (professionals i.e. , PA, [employer], lab, RT, psych nurse, social welfare research worker, ingot header, teacher, campus safety officer, case planner)? Give summary @ -dr gongora for admission Was smoking cessation discussed for >3mins.? @ -No Was critical care preformed (if so, how long)? @ -No Were there social determinants of health that impacted care today? How? (Homelessness, low income, unemployed, alcoholism, drug addiction, transportation, low edu. Level, literacy, decrease access to med. care, correction, rehab)? @ -No Was there de-escalation of care discussed even if they declined (Discuss DNR or withdrawal of care, Hospice)? DNR status @ -No What co-morbidities impacted this encounter? (DM, HTN, Smoking, COPD, CAD, Cancer, CVA, ARF, Chemo, Hep., AIDS, mental health diagnosis, sleep apnea, morbid obesity)? @ -afib Was patient admitted / discharged? Hospital course, mention meds given and route, prescriptions, significant lab abnormalities, going to OR and other pertinent info. @ -admitted. labs conducted, chest xray performed. recommended admission for which the patient agreed to. She had been given asa by ems. Undiagnosed new problem with uncertain prognosis? @ -yes Drug Therapy requiring intensive monitoring for toxicity (Heparin, Nitro, Insulin, Cardizem)? @ -No Were any procedures done? @ -No Diagnosis/symptom? @ -acute chest pain, possible acs s/p stress test Acute, or Chronic, or Acute on Chronic? @ -acute Uncomplicated (without systemic symptoms) or Complicated (systemic symptoms)? @ -complicated Side effects of treatment? @ -No Exacerbation, Progression, or Severe Exacerbation? @ -No Poses a threat to life or bodily function? How? (Chest pain, [place], DC, pneumonia, PE, COPD, DKA, ARF, appy, cholecystitis, CVA, Diverticulitis, Homicidal, Suicidal, threat to staff... and all critical care pts) @ -yes as patient has chest pain, possible unstable angina Disposition Clinical Impression: CHF (congestive heart failure), Chest pain, A-fib Disposition: ADMITTED IP TO THIS HOSP Condition: Serious Is patient prescribed a controlled substance at d/c from ED?: No Time of Disposition: 15:00 Decision to Admit Reason: Admit from EC Decision Date: 12/22/23 Decision Time: 15:00
[2023-12-22] MEDS ORDERED: NALOXONE 0.4 MG/ML 1 ML VIAL IV PRN (15:01)
[2023-12-22] MEDS: ACETAMINOPHEN TAB 500 MG TAB PO STA (15:53)
--- NOTE | 2023-12-22 16:03 | XR ---
EXAMINATION TYPE: XR chest 2V DATE OF EXAM: 12/22/2023 COMPARISON: 08/01/2023 HISTORY: 78-year-old female with chest pain TECHNIQUE: AP and lateral views FINDINGS: Heart borderline enlarged. Large appearance to the right main pulmonary artery on the lateral view ma y reflect arterial hypertension. Aorta within normal limits. No consolidation or pleural effusion. Pr evious ACDF. IMPRESSION: 1. Borderline cardiomegaly and possible underlying pulmonary artery hypertension. There may be underl franklin COPD. 2. No acute process seen.
--- NOTE | 2023-12-22 17:07 | P.HPIM ---
History of Present Illness H&P Date: 12/22/23 Patient is a 78-year-old female with history of paroxysmal atrial fibrillation on Coumadin, CKD, chronic normocytic anemia, COPD, hypertension presenting from cardiology clinic for chest pain. She claims that she was in her usual state of health. Had stress test completed. After getting the stress test, she started to develop midsternal chest pain, sharp in nature, radiating to her back. Since coming to the hospital, chest pain has been coming down. She still experiences a minor amount of pain. She denies any recent fevers, chills, nausea, vomiting, urinary or bowel complaints. She denies any abdominal pain. She did experience some shortness of breath with the chest pain as well as" dizziness". In the ED, vital signs within normal limits. CBC unremarkable. D-dimer 0.46. Renal function at baseline creatinine of 1.48, troponin negative, proBNP 2000, lipase 322. Chest x-ray shows no acute process. Patient being admitted for chest pain and observation. Cardiology consulted. Pertinent positives and negatives as discussed in HPI, a complete review of systems was performed and all other systems are negative. Patient seen and examined at bedside. Vital signs reviewed General: nontoxic, no distress, appears at stated age Derm: warm, dry Head: atraumatic, normocephalic, symmetric Eyes: EOMI, no lid lag, anicteric sclera, pupils equal round reactive to light ENT: Nose and ears atraumatic Neck: No thyromegaly, supple Mouth: no lip lesion, mucus membranes moist Cardiovascular: S1S2 reg, no murmur, no edema Lungs: clear to auscultation bilateral, no rhonchi, no rales, no wheeze, no accessory muscle use Abdominal: soft, nontender to palpation, no guarding, no appreciable organomegaly Ext: no gross muscle atrophy, muscle strength muscle strength 5 out of 5 in all 4 extremities, no contractures Neuro: CN II-XII grossly intact Psych: Alert, oriented, appropriate affect Assessment/Plan: Active: Chest pain, rule out ACS Continue telemetry monitoring Cardiology consulted Trend troponin Elevated lipase Pancreatitis less likely as patient had sudden onset chest pain soon after her stress test Paroxysmal atrial fibrillation on warfarin Hypertension Chronic systolic heart failure, not in exacerbation Chronic neuropathic pain COPD/asthma CKD Continue home medications -Pharmacy to dose warfarin The patient is admitted with an anticipated last than 2 midnight stay as observation status for evaluation of chest pain. Surrogate decision-maker: Spouse CODE STATUS: Full code DVT prophylaxis: Warfarin Anticipated discharge date: Pending clinical course Anticipated discharge place: Pending clinical course A total of 55 minutes was spent on the care of this complex patient more than 50% of the time was spent in counseling and care coordination. Past Medical History Past Medical History: Atrial Flutter, Asthma, Cancer, COPD, CVA/TIA, GERD/Reflux, GI Bleed, Hypertension, Memory Impairment, Myocardial Infarction (TN), Osteoarthritis (OA), Rheumatoid Arthritis (RA) Additional Past Medical History / Comment(s): Chronic cough. Back pain, migraines. Occasional slight difficulty with swallowing. 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 Hx kidney stones, "kidney function low", raynauds disease Last Myocardial Infarction Date:: 2012 History of Any Multi-Drug Resistant Organisms: None Reported Past Surgical History: Back Surgery, Cholecystectomy, Heart Catheterization, Hysterectomy, Joint Replacement, Orthopedic Surgery Additional Past Surgical History / Comment(s): RODS & CAGES IN BACK, RIGHT HIP REPLACEMENT, PARTIAL THYROIDECTOMY, BILATERAL KNEE REPLACEMENTS, NECK SURGERY WITH LIDIA AND CAGES, MELANOMA REMOVED FROM FACE X4, REPAIR OF HEMATOMA/FEMORAL ARTERY AFTER HEART CATHETERIZATION,rt foot bone spur removed Past Anesthesia/Blood Transfusion Reactions: Previous Problems w/ Anesthesia, Motion Sickness, Postoperative Nausea & Vomiting (PONV) Additional Past Anesthesia/Blood Transfusion Reaction / Comment(s): Hard to wake up. Past Psychological History: Depression Smoking Status: Never smoker Past Alcohol Use History: None Reported Past Drug Use History: None Reported - Past Family History Sister(s) Family Medical History: Cancer Brother(s) Family Medical History: Cancer Mother Family Medical History: Myocardial Infarction (TN) Additional Family Medical History / Comment(s): Mother of a TN at the age of 76yrs. Father History Unknown: Yes Family Medical History: Chest Pain / Angina Medications and Allergies Home Medications Medication Instructions Recorded Confirmed Type Pantoprazole Sodium [Protonix] 40 mg PO BID 05/14/14 12/22/23 History Cyanocobalamin (Vitamin B-12) 1,000 mcg PO DAILY 06/16/22 12/22/23 History [Vitamin B-12] Lysine 1,000 mg PO DAILY 08/03/22 12/22/23 History Warfarin Sodium 4 mg PO TH@2100 12/07/22 12/22/23 History Amiodarone [Cordarone] 200 mg PO DAILY 01/24/23 12/22/23 History Spironolactone [Aldactone] 12.5 mg PO DAILY 01/24/23 12/22/23 History Warfarin Sodium 2 mg PO SUMOTUWEFRSA@2100 01/25/23 12/22/23 History DULoxetine HCL [Cymbalta] 60 mg PO DAILY 07/27/23 12/22/23 History Ipratropium Nebulized [Atrovent 0.5 mg INHALATION RT-BID 07/27/23 12/22/23 History Nebulized 0.2 MG/ML] Metoprolol Tartrate [Lopressor] 25 mg PO BID 07/27/23 12/22/23 History lisinopriL [Zestril] 2.5 mg PO DAILY 07/27/23 12/22/23 History Pregabalin [Lyrica] 100 mg PO BID #6 cap 08/04/23 12/22/23 Rx Acetaminophen [Tylenol Extra 1,000 mg PO Q6H PRN 12/22/23 12/22/23 History Strength] Albuterol Inhaler [Ventolin Hfa 2 puff INHALATION RT-Q6H PRN 12/22/23 12/22/23 History Inhaler] Cholecalciferol (Vitamin D3) 50 mcg PO DAILY 12/22/23 12/22/23 History [Vitamin D3 (50 Mcg = 2000 Iu)] Furosemide [Lasix] 20 mg PO DAILY 12/22/23 12/22/23 History Glucosam/Chond/Hyalu/Cf Borate 1 tab PO DAILY 12/22/23 12/22/23 History [Move Free Joint Health Tablet] Vit C/E/Zn/Coppr/Lutein/Zeaxan 1 cap PO DAILY 12/22/23 12/22/23 History [Preservision Areds 2 Softgel] estradioL [Estrace] 1 mg PO DAILY 12/22/23 12/22/23 History Allergies Allergy/AdvReac Type Severity Reaction Status Date / Time cephalexin monohydrate Allergy Rash/Hives Verified 12/22/23 13:53 [From Keflex] diphenhydramine HCl Allergy SWELLING Verified 12/22/23 13:53 [From Benadryl] OF TONGUE, SOB enoxaparin [From Lovenox] Allergy Rash/Hives Verified 12/22/23 13:53 Penicillins Allergy SWELLING, Verified 12/22/23 13:53 HIVES sulfamethoxazole Allergy Anaphylaxis, Verified 12/22/23 13:53 [From Bactrim] Swelling trimethoprim [From Bactrim] Allergy Anaphylaxis, Verified 12/22/23 13:53 Swelling aspirin AdvReac EXCESS Verified 12/22/23 13:53 BLEEDING garlic AdvReac Nausea Verified 12/22/23 13:53 milk AdvReac Abdominal Verified 12/22/23 13:53 Pain morphine AdvReac Vomiting Verified 12/22/23 13:53 milk chocolate AdvReac Nausea Uncoded 12/22/23 13:53 Physical Exam Vitals: Vital Signs Temp Pulse Resp BP Pulse Ox 12/22/23 17:03 55 L 18 143/79 99 12/22/23 15:46 97.3 F L 60 18 131/82 96 12/22/23 13:32 53 L 18 134/63 97 12/22/23 12:04 59 L 20 119/63 97 Intake and Output 12/22/23 12/22/23 12/22/23 06:59 14:59 22:59 Other: Weight 68.039 kg Results CBC & Chem 7: 12/22/23 12:53 12/22/23 13:40 Labs: Abnormal Lab Results - Last 24 Hours (Table) 12/22/23 Range/Units 13:40 Chloride 109 H (98-107) mmol/L BUN 36 H (7-17) mg/dL Creatinine 1.48 H (0.52-1.04) mg/dL Lipase 322 H (23-300) U/L
[2023-12-22] MEDS ORDERED: HEPARIN SODIUM 1,000 UN/ML (10ML VL) IV PRN (17:57)
[2023-12-22] MEDS: WARFARIN 2 MG TAB PO ONE (18:03)
[2023-12-22] MEDS: HEPARIN SODIUM 1,000 UN/ML (10ML VL) IV ONE (18:29)
[2023-12-22] MEDS: HEPARIN SOD,PORK IN 0.45% NACL 25,000 UNIT in 0.45% NACL 1 250ML.BAG IV SCH (18:30)
[2023-12-22] MEDS: ALBUTEROL NEBULIZED 2.5 MG/3 ML INHALATION PRN (19:52)
[2023-12-22] MEDS: IPRATROPIUM 0.5 MG/2.5 ML NEBU INHALATION SCH (19:52)
--- NOTE | 2023-12-22 20:56 | CONS ---
CONSULTATION CHIEF COMPLAINT: Chest pain. HISTORY OF PRESENT ILLNESS: This is a 78-year-old lady with history of permanent atrial fibrillation, hypertension, dyslipidemia, and a moderate coronary artery disease involving heavily calcified coronary, presented to hospital with chest pain. She was in our office today for a stress test, echocardiogram, and developed chest pain as moderate to severe chest pressure. There was a concern and she was sent to the emergency room. I am seeing the patient in the ER. She is pain-free, stable hemodynamically. INR is subtherapeutic. EKG shows atrial fibrillation with left bundle branch block. I am going to review her stress test results and decide on further course of action. She may need to undergo cardiac catheterization for definitive diagnosis. PAST MEDICAL HISTORY: Significant for coronary artery disease, hypertension, dyslipidemia, permanent atrial fibrillation. MEDICATIONS: As charted. ALLERGIES: As charted. FAMILY HISTORY: Negative for premature coronary artery disease. SOCIAL HISTORY: Negative for smoking, EtOH abuse, or drug abuse. REVIEW OF SYSTEMS: 14 out of 14 review of systems has been performed. Pertinents are as documented in history of presenting illness. PHYSICAL EXAMINATION: GENERAL: Comfortable at rest. VITAL SIGNS: Stable. NECK: There is no jugular venous distention. Carotid upstroke is normal. There is no bruit. CHEST: Reveals good air entry bilaterally. HEART: Reveals first and second heart sounds. Irregular rhythm and a systolic murmur at the apex. ABDOMEN: Soft. EXTREMITIES: Did not reveal any edema. Peripheral pulses are felt. IMAGING STUDIES: EKG shows atrial fibrillation with left bundle branch block. One set of troponin is available. It is unremarkable. BUN and creatinine are elevated. ASSESSMENT AND PLAN: 1. Unstable angina. 2. Permanent atrial fibrillation. 3. Subtherapeutic anticoagulation. PLAN: I will start the patient on IV heparin. Review test results from our office and talked to Dr. Castorena, her primary cigarette roller to see if we should perform cardiac catheterization. MMODL / IJN: [id number] /
[2023-12-22] MEDS: METOPROLOL TARTRATE 25 MG TAB PO SCH (23:38)
[2023-12-22] MEDS: PREGABALIN 100 MG CAP PO SCH (23:38)
[2023-12-22] MEDS: PANTOPRAZOLE 40 MG TABLET PO SCH (23:38)
[2023-12-23 06:04] LABS: INR 1.1 (<1.2); Partial Thromboplastin Time 48.7 sec (22.0-30.0); Prothrombin Time 11.7 sec (10.0-12.5)
[2023-12-23] MEDS ORDERED: ALPRAZolam 0.5 MG TAB PO PRN (07:45)
[2023-12-23] MEDS ORDERED: ALPRAZolam 0.25 MG TAB PO PRN (07:45)
[2023-12-23] MEDS ORDERED: NITROGLYCERIN SL TABS 0.4 MG TAB SUBLINGUAL PRN (07:45)
[2023-12-23 09:34] LABS: Basophils % (A) 1.9 %; Eosinophils # (A) 0.31 X 10*3/uL (0.04-0.35); Eosinophils % (A) 5.9 %; HCT 33.4 % (37.2-46.3); HGB 10.9 g/dL (12.0-15.0); Lymphocytes # (A) 1.25 X 10*3/uL (0.90-5.00); Lymphocytes % (A) 23.9 %; MCH 30.3 pg (27.0-32.0); MCHC 32.6 g/dL (32.0-37.0); MCV 92.8 FL (80.0-97.0); Mean Platelet Volume 11.6 FL (9.5-12.2); Monocytes # (A) 0.75 X 10*3/uL (0.20-1.00); Monocytes % (A) 14.4 %; NRBC Per 100 WBC 0 X 10*3/uL (0.00-0.01); Neutrophils % (A) 53.7 %; Platelet Count 195 X 10*3/uL (140-440); RDW 14.5 % (11.5-14.5); WBC 5.22 X 10*3/uL (4.50-10.00)
[2023-12-23 10:05] LABS: BUN/Creat Ratio 21.93 Ratio (12.00-20.00); Blood Urea Nitrogen 32.9 mg/dL (9.0-27.0); Calcium 8.5 mg/dL (8.7-10.3); Carbon Dioxide 21.9 mmol/L (21.6-31.8); Chloride 109 mmol/L (96-109); Glucose 90 mg/dL (70-110); Potassium 4.3 mmol/L (3.5-5.5); Sodium 143 mmol/L (135-145)
[2023-12-23] MEDS: SODIUM CHLORIDE 0.9% 500 ML 250 ML IV ONE (10:12)
[2023-12-23] MEDS: ASPIRIN 325 MG TAB PO STA (10:13)
[2023-12-23] MEDS: ATORVASTATIN 80 MG TAB PO STA (10:14)
[2023-12-23] MEDS: DULoxetine HCL 60 MG CAPSULE.DR PO SCH (10:14)
[2023-12-23] MEDS: SPIRONOLACTONE 25 MG TAB PO SCH (10:15)
[2023-12-23] MEDS: FUROSEMIDE 20 MG TAB PO SCH (10:15)
[2023-12-23] MEDS: ACETAMINOPHEN TAB 325 MG TAB PO PRN (11:34)
[2023-12-23] MEDS: AMIODARONE 200 MG TAB PO SCH (11:34)
--- NOTE | 2023-12-23 14:08 | P.PN ---
Subjective Progress Note Date: 12/23/23 Hospital Course: 78-year-old female with history of paroxysmal atrial fibrillation on Coumadin, CKD, chronic normocytic anemia, COPD, hypertension presenting from cardiology clinic for chest pain. In the ED, vital signs within normal limits. CBC unremarkable. D-dimer 0.46. Renal function at baseline creatinine of 1.48, troponin negative, proBNP 2000, lipase 322. Chest x-ray shows no acute process. Patient being admitted for chest pain and observation. Cardiology consulted. Due to active chest pain. Likely has unstable angina. Patient started on heparin drip. Pending cardiac cath. Subjective: Patient seen and examined at bedside. No acute events overnight. Denies any further chest pain. Pertinent positives and negatives as discussed above, a complete review of systems was performed and all other systems are negative. Vitals Signs Reviewed. General: Nontoxic, no distress, appears at stated age Derm: Warm, dry Head: Atraumatic, normocephalic, symmetric Eyes: EOMI, no lid lag, anicteric sclera Mouth: No lip lesion, mucus membranes moist Cardiovascular: S1S2 reg, no murmur Lungs: CTA bilateral, no rhonchi, no rales, no accessory muscle use Abdominal: Soft, nontender to palpation, no guarding, no appreciable organomegaly Ext: No gross muscle atrophy, no edema, no contractures Neuro: CN II-XI grossly intact, no focal neuro deficits Psych: Alert, oriented, appropriate affect Data Reviewed Today: Pertinent Labs: Hemoglobin 10.9, creatinine 1.5, lipase down trended to 72, troponin negative x 3 Imaging: EKG independently interpreted, shows atrial fibrillation with rate control and left bundle branch block. Assessment and Plan: Unstable angina Paroxysmal atrial fibrillation on warfarin Hypertension Chronic systolic heart failure, not in exacerbation CKD -Patient currently on heparin drip, warfarin discontinued Pending cardiac cath Cardiology following Status post aspirin 325, and atorvastatin 80 mg Continue home amiodarone 200 mg daily, Lasix 20 mg daily, lisinopril 2.5 mg daily, metoprolol 25 twice daily Chronic neuropathic pain COPD/asthma, not in exacerbation Continue home medications DVT ppx: Heparin drip Code status: Full code Anticipated discharge place: Pending clinical course Anticipated discharge time: Pending clinical course Patient status changed to inpatient due to concern for unstable angina and being on heparin drip. She requires cardiac cath. Objective - Vital Signs Vital signs: Vital Signs Temp 98.1 F 12/23/23 07:00 Pulse 68 12/23/23 08:53 Resp 18 12/23/23 07:00 BP 143/79 12/23/23 11:35 Pulse Ox 96 12/23/23 07:00 FiO2 Intake & Output 12/22/23 12/23/23 12/23/23 18:59 06:59 18:59 Intake Total 109.003 Balance 109.003 Weight 68.039 kg 68.039 kg Intake: Intake, IV Titration 109.003 Amount Heparin Sod,Pork in 0.45% 109.003 NaCl 25,000 unit In 0.45 % NaCl 1 250ml.bag @ 12 UNITS/KG/HR 8.165 mls/hr IV .Q24H [facility] Rx#: [id number] Other: # Voids 2 - Labs CBC & Chem 7: 12/23/23 05:39 12/23/23 05:39 Labs: Abnormal Lab Results - Last 24 Hours (Table) 12/22/23 12/23/23 12/23/23 Range/Units 13:40 00:01 05:39 RBC (4.10-5.20) X 10*6/uL Hgb (12.0-15.0) g/dL Hct (37.2-46.3) % APTT 60.9 H 48.7 H (22.0-30.0) sec Chloride 109 H (98-107) mmol/L Anion Gap (4.00-12.00) mmol/L BUN 36 H (7-17) mg/dL Creatinine 1.48 H (0.52-1.04) mg/dL Est GFR (CKD-EPI) (>=60) BUN/Creatinine Ratio (12.00-20.00) Ratio Lipase 322 H (23-300) U/L 12/23/23 12/23/23 12/23/23 Range/Units 05:39 05:39 06:41 RBC 3.60 L (4.10-5.20) X 10*6/uL Hgb 10.9 L (12.0-15.0) g/dL Hct 33.4 L (37.2-46.3) % APTT (22.0-30.0) sec Chloride (98-107) mmol/L Anion Gap 12.10 H (4.00-12.00) mmol/L BUN 32.9 H (7-17) mg/dL Creatinine (0.52-1.04) mg/dL Est GFR (CKD-EPI) 35 L (>=60) BUN/Creatinine Ratio 21.93 H (12.00-20.00) Ratio Lipase 72 H (23-300) U/L
[2023-12-23] MEDS: EMPTY BAG 1 BAG with SODIUM CHLORIDE 0.9% 1,000 ML IV ONE (15:04)
[2023-12-23] MEDS: WARFARIN 2 MG TAB PO ONE (18:28)
--- NOTE | 2023-12-23 20:47 | PN ---
PROGRESS NOTE SUBJECTIVE: This is a 78-year-old lady who I saw yesterday in the emergency room and she presented to us with unstable angina. The patient has had a fairly uneventful night. Did not have any episodes of chest pain and her cardiac enzymes have been negative. This morning the BUN and creatinine are elevated. The plan was to perform a cardiac catheterization. She had a stress test in our office that revealed partially reversible mid anterior wall defect. I spoke to Dr. Castorena who regularly sees her in the office. The plan is to perform a cardiac catheterization tomorrow after adequate hydration provided. Renal functions are okay. MMODL / IJN: [id number] /
[2023-12-24 06:35] LABS: Basophils # (A) 0.1 k/uL (0-0.2); Basophils % (A) 3 %; Eosinophils # (A) 0.2 k/uL (0-0.7); Eosinophils % (A) 6 %; HCT 34.6 % (34.0-46.0); HGB 11.1 gm/dL (11.4-16.0); Hypochromasia Marked; Lymphocytes # (A) 1.1 k/uL (1.0-4.8); Lymphocytes % (A) 30 %; MCH 32.3 pg (25.0-35.0); Macrocytosis Slight; Mean Platelet Volume 9.4; Monocytes # (A) 0.5 k/uL (0-1.0); Monocytes % (A) 12 %; Neutrophils # (A) 1.7 k/uL (1.3-7.7); Neutrophils % (A) 46 %; Platelet Count 170 k/uL (150-450); RBC 3.42 m/uL (3.80-5.40); WBC 3.8 k/uL (3.8-10.6)
[2023-12-24 06:38] LABS: MCV 101.2 fL (80.0-100.0)
[2023-12-24 06:49] LABS: Prothrombin Time 11.3 sec (10.0-12.5)
[2023-12-24] MEDS ORDERED: HEPARIN SODIUM,PORCINE (1 ML) 2,500 UNIT in SODIUM CHLORIDE 0.9% 250 ML IRRIGATION PRN (07:00)
[2023-12-24] MEDS ORDERED: HEPARIN SODIUM,PORCINE 10,000 UNIT in SODIUM CHLORIDE 0.9% 1,000 ML IRRIGATION PRN (07:00)
[2023-12-24] MEDS: ATORVASTATIN 80 MG TAB PO STA (08:46)
[2023-12-24 09:54] LABS: BUN/Creat Ratio 21.07 Ratio (12.00-20.00); Blood Urea Nitrogen 31.6 mg/dL (9.0-27.0); Calcium 8.8 mg/dL (8.7-10.3); Carbon Dioxide 20.9 mmol/L (21.6-31.8); Chloride 110 mmol/L (96-109); Glucose 81 mg/dL (70-110); Magnesium 2.2 mg/dL (1.5-2.4); Potassium 4.4 mmol/L (3.5-5.5); Sodium 141 mmol/L (135-145)
--- NOTE | 2023-12-24 11:03 | P.PN ---
Subjective Progress Note Date: 12/24/23 Principal diagnosis: chest pain The patient is a pleasant 78-year-old female patient with a past medical history significant for hypertension and dyslipidemia and permanent atrial fibrillation and coronary artery disease who was admitted to the hospital with chest discomfort concerning for angina and she underwent a stress test in the office that came in to be abnormal showing possible and anterior ischemia. She is in process of having a heart catheterization. December 24, 2023 The patient was seen and evaluated this morning. She is chest pain-free at this point. The INR is within normal limits. The plan is to pursue with a heart catheterization later on today. The procedure in details was explained to the patient. The examination is remarkable for irregular rhythm with a distant heart sounds and clear breathing sounds bilaterally and no edema was noted Assessment Chest discomfort Abnormal myocardial perfusion imaging stress test Multiple comorbid conditions Plan Continue the current medical regimen Proceed with coronary angiogram Further recommendation to follow Objective - Vital Signs Vital signs: Vital Signs Temp 98.4 F 12/24/23 07:00 Pulse 70 12/24/23 08:40 Resp 15 12/24/23 07:00 BP 132/70 12/24/23 07:00 Pulse Ox 95 12/24/23 07:00 FiO2 Intake & Output 12/23/23 12/24/23 12/24/23 18:59 06:59 18:59 Intake Total 109.003 129.552 33.885 Balance 109.003 129.552 33.885 Intake: Intake, IV Titration 109.003 129.552 33.885 Amount Heparin Sod,Pork in 0.45% 109.003 129.552 33.885 NaCl 25,000 unit In 0.45 % NaCl 1 250ml.bag @ 12 UNITS/KG/HR 8.165 mls/hr IV .Q24H [facility] Rx#: [id number] Other: # Voids 2 2 # Bowel Movements 2 - Labs CBC & Chem 7: 12/24/23 05:38 12/24/23 05:38 Labs: Abnormal Lab Results - Last 24 Hours (Table) 12/23/23 12/23/23 12/24/23 Range/Units 06:41 21:01 05:38 RBC 3.42 L (3.80-5.40) m/uL Hgb 11.1 L (11.4-16.0) gm/dL MCV 101.2 H D (80.0-100.0) fL APTT 47.7 H (22.0-30.0) sec Chloride (96-109) mmol/L Carbon Dioxide (21.6-31.8) mmol/L BUN (9.0-27.0) mg/dL Est GFR (CKD-EPI) (>=60) BUN/Creatinine Ratio (12.00-20.00) Ratio Lipase 72 H (14-63) U/L 12/24/23 12/24/23 Range/Units 05:38 05:38 RBC (3.80-5.40) m/uL Hgb (11.4-16.0) gm/dL MCV (80.0-100.0) fL APTT 53.1 H (22.0-30.0) sec Chloride 110 H (96-109) mmol/L Carbon Dioxide 20.9 L (21.6-31.8) mmol/L BUN 31.6 H (9.0-27.0) mg/dL Est GFR (CKD-EPI) 35 L (>=60) BUN/Creatinine Ratio 21.07 H (12.00-20.00) Ratio Lipase (14-63) U/L
--- NOTE | 2023-12-24 12:20 | P.PN ---
Subjective Progress Note Date: 12/24/23 Hospital Course: 78-year-old female with history of paroxysmal atrial fibrillation on Coumadin, CKD, chronic normocytic anemia, COPD, hypertension presenting from cardiology clinic for chest pain. In the ED, vital signs within normal limits. CBC unremarkable. D-dimer 0.46. Renal function at baseline creatinine of 1.48, troponin negative, proBNP 2000, lipase 322. Chest x-ray shows no acute process. Patient being admitted for chest pain and observation. Cardiology consulted. Due to active chest pain. Likely has unstable angina. Patient started on heparin drip. Pending cardiac cath. Subjective: Patient seen and examined at bedside. No acute events overnight. Denies any further chest pain. Pertinent positives and negatives as discussed above, a complete review of systems was performed and all other systems are negative. Vitals Signs Reviewed. General: Nontoxic, no distress, appears at stated age Derm: Warm, dry Head: Atraumatic, normocephalic, symmetric Eyes: EOMI, no lid lag, anicteric sclera Mouth: No lip lesion, mucus membranes moist Cardiovascular: S1S2 reg, no murmur Lungs: CTA bilateral, no rhonchi, no rales, no accessory muscle use Abdominal: Soft, nontender to palpation, no guarding, no appreciable organomegaly Ext: No gross muscle atrophy, no edema, no contractures Neuro: CN II-XI grossly intact, no focal neuro deficits Psych: Alert, oriented, appropriate affect Data Reviewed Today: Pertinent Labs: Hemoglobin 11.1, creatinine 1.5, magnesium 2.2 Imaging: No new imaging Assessment and Plan: Unstable angina Paroxysmal atrial fibrillation on warfarin Hypertension Chronic systolic heart failure, not in exacerbation CKD -Patient currently on heparin drip, warfarin currently on hold Pending cardiac cath Cardiology note reviewed, abnormal stress test outpatient Status post aspirin 325, and atorvastatin 80 mg Continue home amiodarone 200 mg daily, Lasix 20 mg daily, lisinopril 2.5 mg daily, metoprolol 25 twice daily Chronic neuropathic pain COPD/asthma, not in exacerbation Continue home medications DVT ppx: Heparin drip Code status: Full code Anticipated discharge place: Pending clinical course Anticipated discharge time: Pending clinical course Objective - Vital Signs Vital signs: Vital Signs Temp 98.4 F 12/24/23 07:00 Pulse 70 12/24/23 08:40 Resp 15 12/24/23 07:00 BP 132/70 12/24/23 07:00 Pulse Ox 95 12/24/23 07:00 FiO2 Intake & Output 12/23/23 12/24/23 12/24/23 18:59 06:59 18:59 Intake Total 109.003 129.552 33.885 Balance 109.003 129.552 33.885 Intake: Intake, IV Titration 109.003 129.552 33.885 Amount Heparin Sod,Pork in 0.45% 109.003 129.552 33.885 NaCl 25,000 unit In 0.45 % NaCl 1 250ml.bag @ 12 UNITS/KG/HR 8.165 mls/hr IV .Q24H [facility] Rx#: [id number] Other: Voiding Method Toilet # Voids 2 2 # Bowel Movements 2 - Labs CBC & Chem 7: 12/24/23 05:38 12/24/23 05:38 Labs: Abnormal Lab Results - Last 24 Hours (Table) 12/23/23 12/24/23 12/24/23 Range/Units 21:01 05:38 05:38 RBC 3.42 L (3.80-5.40) m/uL Hgb 11.1 L (11.4-16.0) gm/dL MCV 101.2 H D (80.0-100.0) fL APTT 47.7 H (22.0-30.0) sec Chloride 110 H (96-109) mmol/L Carbon Dioxide 20.9 L (21.6-31.8) mmol/L BUN 31.6 H (9.0-27.0) mg/dL Est GFR (CKD-EPI) 35 L (>=60) BUN/Creatinine Ratio 21.07 H (12.00-20.00) Ratio 12/24/23 Range/Units 05:38 RBC (3.80-5.40) m/uL Hgb (11.4-16.0) gm/dL MCV (80.0-100.0) fL APTT 53.1 H (22.0-30.0) sec Chloride (96-109) mmol/L Carbon Dioxide (21.6-31.8) mmol/L BUN (9.0-27.0) mg/dL Est GFR (CKD-EPI) (>=60) BUN/Creatinine Ratio (12.00-20.00) Ratio
[2023-12-24] MEDS ORDERED: HEPARIN SODIUM 1,000 UN/ML (10ML VL) ONE (13:11)
[2023-12-24] MEDS ORDERED: LIDOCAINE 1% INJ 10MG/ML (20 ML MDV) ONE (13:11)
[2023-12-24] MEDS ORDERED: VERAPAMIL 2.5 MG/ML 2 ML AMP ONE (13:11)
[2023-12-24] MEDS: IV FLUID CONTINUATION 1,000 ML IV ONE (13:24)
[2023-12-24] MEDS: MIDAZOLAM 2 MG/2 ML VIAL IVP ONE (13:29)
[2023-12-24] MEDS: LIDOCAINE 1% INJ 10MG/ML (20 ML MDV) SQ ONE (13:30)
[2023-12-24] MEDS: VERAPAMIL SYRINGE (5 MG/10 ML) INTRAARTER ONE (13:32)
[2023-12-24] MEDS: HEPARIN SODIUM 1,000 UN/ML (10ML VL) IV ONE (13:43)
[2023-12-24] MEDS ORDERED: RX INFO: IV CONTRAST WAS GIVEN 1 EACH MISC MISCELLANE PRN (14:06)
[2023-12-24] MEDS: IOPAMIDOL-370 100ML BTL INJ ONE (14:09)
--- NOTE | 2023-12-24 14:11 | P.PCN ---
Date of Procedure: 12/24/23 Operative Findings: CARDIAC CATHETERIZATION PERFORMING PHYSICIAN: Sergey Castorena MD, RPVI PROCEDURE PERFORMED: 1. Selective right and left coronary angiogram 2. Left heart catheterization 3. IFR of the left anterior descending artery 4. Ultrasound-guided access of the left radial artery INDICATION: Chest discomfort concerning for angina in this 78-year-old female patient who underwent myocardial perfusion imaging stress that showed an anterior ischemia COMPLICATION: None APPROACH: Right radial artery LEVEL OF SEDATION: Moderate with a sedation length of 32 minutes PROCEDURE DESCRIPTION: After obtaining an informed consent, the patient was brought to cardiac casting house laborer. Local anesthesia was performed using lidocaine subcutaneously. I could not feel any pulse at the right radial artery. The left radial artery was cannulated using Seldinger technique, the guidewire passed easily, following that we advanced a 5-[place] sheath dilator assembly, the wire and dilator were removed and sheath was flushed. Following that, 2 mg of verapamil along with 3000 unit heparin were given. Selective right and left coronary angiogram using a 6-[place] JR4 and JL 3.5 catheters. Following that we did left heart catheterization using the JR4 catheter After that we decided to do Doppler wire measurement of the LAD. After zeroing the lower wire and equalizing between the Doppler wire and guiding catheter which was JL 3.5 guiding catheter the left main was engaged and the LAD was wired. We did IFR and that came in to be 0.89 x 2. The procedure at that point was completed The procedure was completed there was no complication. SELECTIVE CORONARY ANGIOGRAM: The right coronary artery: Moderate caliber vessel nondominant vessel appears to have mild disease only Left main: Is angiographically normal. Bifurcates into an LCx and LAD The left circumflex: Large-caliber vessel a dominant vessel appears to be angiographically normal and gives rise into an OM1 and distally bifurcates into PDA and PLV branches The left anterior descending artery: Large-caliber vessel. The proximal LAD has an eccentric and tortuous and calcified lesion appears to be in the range of 60%. We did Doppler wire measurement and the lesion is flow-limiting. The LAD in the midportion has mild disease only. The LAD gives rise into the first and second diagonal branches both appear to be angiographically normal. HEMODYNAMICS: LVEDP was 13 mmHg with no significant gradient across aortic valve CONCLUSION: 1. Severe disease involving the proximal left anterior descending artery 2. Normal left-sided filling pressure POSTPROCEDURE MANAGEMENT: Giving the amount of contrast and the chronic kidney disease and the calcified and tortuous lesion we decided to treat patient medically at this point and bring her back for PCI to be performed on separate time
[2023-12-24] MEDS: SODIUM CHLORIDE 0.9% 1,000 ML IV SCH (15:23)
[2023-12-25 07:57] LABS: Prothrombin Time 10.7 sec (10.0-12.5)
[2023-12-25 08:29] VITALS: RESP 15
--- NOTE | 2023-12-25 13:22 | P.PN ---
Subjective Progress Note Date: 12/25/23 Hospital Course: 78-year-old female with history of paroxysmal atrial fibrillation on Coumadin, CKD, chronic normocytic anemia, COPD, hypertension presenting from cardiology clinic for chest pain. In the ED, vital signs within normal limits. CBC unremarkable. D-dimer 0.46. Renal function at baseline creatinine of 1.48, troponin negative, proBNP 2000, lipase 322. Chest x-ray shows no acute process. Patient being admitted for chest pain and observation. Cardiology consulted. Due to active chest pain. Likely has unstable angina. Patient started on heparin drip. Cardiac cath shows severe disease involving the proximal LAD, needs to be brought back for PCI at a separate time. Subjective: Patient seen and examined at bedside. No acute events overnight. Denies any further chest pain. Pertinent positives and negatives as discussed above, a complete review of systems was performed and all other systems are negative. Vitals Signs Reviewed. General: Nontoxic, no distress, appears at stated age Derm: Warm, dry Head: Atraumatic, normocephalic, symmetric Eyes: EOMI, no lid lag, anicteric sclera Mouth: No lip lesion, mucus membranes moist Cardiovascular: S1S2 reg, no murmur Lungs: CTA bilateral, no rhonchi, no rales, no accessory muscle use Abdominal: Soft, nontender to palpation, no guarding, no appreciable organomegaly Ext: No gross muscle atrophy, no edema, no contractures Neuro: CN II-XI grossly intact, no focal neuro deficits Psych: Alert, oriented, appropriate affect Data Reviewed Today: Pertinent Labs: No new labs Imaging: No new imaging Assessment and Plan: Unstable angina Proximal LAD stenosis Paroxysmal atrial fibrillation on warfarin Hypertension Chronic systolic heart failure, not in exacerbation CKD -Cardiac cath showed proximal LAD stenosis, needs PCI at a later date Cardiology following Started on aspirin 81 mg, atorvastatin 40 mg Continue home amiodarone 200 mg daily, Lasix 20 mg daily, lisinopril 2.5 mg daily, metoprolol 25 twice daily Coumadin restarted Chronic neuropathic pain COPD/asthma, not in exacerbation Continue home medications DVT ppx: Coumadin Code status: Full code Anticipated discharge place: Pending clinical course Anticipated discharge time: Pending clinical course Objective - Vital Signs Vital signs: Vital Signs Temp 98.3 F 12/25/23 07:00 Pulse 67 12/25/23 08:56 Resp 15 12/25/23 07:00 BP 119/62 12/25/23 07:00 Pulse Ox 95 12/25/23 07:00 FiO2 Intake & Output 12/24/23 12/25/23 12/25/23 18:59 06:59 18:59 Intake Total 133.885 Balance 133.885 Intake: IV 100 Intake, IV Titration 33.885 Amount Heparin Sod,Pork in 0.45% 33.885 NaCl 25,000 unit In 0.45 % NaCl 1 250ml.bag @ 12 UNITS/KG/HR 8.165 mls/hr IV .Q24H [facility] Rx#: [id number] Other: Voiding Method Bedpan Bedpan Toilet # Voids 4 2 # Bowel Movements 0 - Labs CBC & Chem 7: 12/24/23 05:38 12/24/23 05:38
[2023-12-25 14:46] VITALS: BP 107/65; PULSE 69; TEMP 98.4
[2023-12-25] MEDS: ASPIRIN 81 MG PO SCH (16:29)
[2023-12-25] MEDS: WARFARIN 2 MG TAB PO ONE (17:48)
--- NOTE | 2023-12-25 18:21 | P.PN ---
Subjective Progress Note Date: 12/25/23 Principal diagnosis: chest pain The patient is a pleasant 78-year-old female patient with a past medical history significant for hypertension and dyslipidemia and permanent atrial fibrillation and coronary artery disease who was admitted to the hospital with chest discomfort concerning for angina and she underwent a stress test in the office that came in to be abnormal showing possible and anterior ischemia. She is in process of having a heart catheterization. December 24, 2023 The patient was seen and evaluated this morning. She is chest pain-free at this point. The INR is within normal limits. The plan is to pursue with a heart catheterization later on today. The procedure in details was explained to the patient. The examination is remarkable for irregular rhythm with a distant heart sounds and clear breathing sounds bilaterally and no edema was noted December 25, 2023 The patient was seen and evaluated this morning. She underwent a heart catheterization yesterday and that revealed intermediate to severe lesion involving the proximal left anterior descending artery with the lesion being calcified and tortuous. We almost at the maximum level of contrast by the end of the heart catheterization. With that being said the patient will be bring back to undergo PCI of the LAD. Currently she is asymptomatic. She is hemodynamically stable. The left radial artery appears to be soft and nontender with no bruises. The examination is remarkable for irregular rhythm with clear breathing sounds bilaterally and no edema was noted. Assessment Chest discomfort Intermediate to severe disease appears to be flow-limiting involving the LAD Abnormal myocardial perfusion imaging stress test Multiple comorbid conditions Plan Continue the current medical regimen Proceed with PCI of the LAD in the next few weeks Objective - Vital Signs Vital signs: Vital Signs Temp 98.4 F 12/25/23 14:18 Pulse 69 12/25/23 14:18 Resp 15 12/25/23 14:18 BP 107/65 12/25/23 14:18 Pulse Ox 96 12/25/23 14:18 FiO2 Intake & Output 12/24/23 12/25/23 12/25/23 18:59 06:59 18:59 Intake Total 133.885 Balance 133.885 Intake: IV 100 Intake, IV Titration 33.885 Amount Heparin Sod,Pork in 0.45% 33.885 NaCl 25,000 unit In 0.45 % NaCl 1 250ml.bag @ 12 UNITS/KG/HR 8.165 mls/hr IV .Q24H [facility] Rx#: [id number] Other: Voiding Method Bedpan Bedpan Toilet # Voids 4 2 4 # Bowel Movements 0 1 - Labs CBC & Chem 7: 12/24/23 05:38 12/24/23 05:38
--- NOTE | 2023-12-25 18:59 | P.DS ---
Providers Date of admission: 12/23/23 12:38 Expected date of discharge: 12/25/23 Attending physician: Marcelino Colón MD Consults: 12/22/23 15:01 Consult Physician Urgent Consulting Provider: [facility] Consult Reason/Comments: chest pain s/p stress test Do you want consulting provider notified?: Yes Primary care physician: Dex Mcneal MD Hospital Course: Discharge Diagnosis: Unstable angina Proximal LAD stenosis Paroxysmal atrial fibrillation on warfarin Hypertension Chronic systolic heart failure, not in exacerbation CKD Chronic neuropathic pain Hospital Course: 78-year-old female with history of paroxysmal atrial fibrillation on Coumadin, CKD, chronic normocytic anemia, COPD, hypertension presenting from cardiology clinic for chest pain. In the ED, vital signs within normal limits. CBC unremarkable. D-dimer 0.46. Renal function at baseline creatinine of 1.48, troponin negative, proBNP 2000, lipase 322. Chest x-ray shows no acute process. Patient being admitted for chest pain and observation. Cardiology consulted. Due to active chest pain. Likely has unstable angina. Patient started on heparin drip. Cardiac cath shows severe disease involving the proximal LAD, needs to be brought back for PCI at a separate time. Continue Current medical management. No active chest pain at the time of discharge. Patient seen and examined at bedside. Vital signs reviewed and stable. General: Nontoxic, no distress, appears at stated age Derm: Warm, dry Head: Atraumatic, normocephalic, symmetric Eyes: EOMI, no lid lag, anicteric sclera Mouth: No lip lesion, mucus membranes moist Cardiovascular: S1S2 reg, no murmur Lungs: CTA bilateral, no rhonchi, no rales, no accessory muscle use Abdominal: Soft, nontender to palpation, no guarding, no appreciable organomegaly Ext: No gross muscle atrophy, no edema, no contractures Neuro: CN II-XI grossly intact, no focal neuro deficits Psych: Alert, oriented, appropriate affect A total of 35 minutes of time were spent preparing this complex discharge summary. Patient was discharged on 12/25/2023 at 1858. Patient Condition at Discharge: Stable Plan - Discharge Summary Discharge Rx Participant: No New Discharge Prescriptions: New Atorvastatin [Lipitor] 40 mg PO HS #90 tab Continue Pantoprazole Sodium [Protonix] 40 mg PO BID Lysine 1,000 mg PO DAILY Spironolactone [Aldactone] 12.5 mg PO DAILY Warfarin Sodium 2 mg PO SUMOTUWEFRSA@2099 Ipratropium Nebulized [Atrovent Nebulized 0.2 MG/ML] 0.5 mg INHALATION RT-BID Metoprolol Tartrate [Lopressor] 25 mg PO BID lisinopriL [Zestril] 2.5 mg PO DAILY DULoxetine HCL [Cymbalta] 60 mg PO DAILY estradioL [Estrace] 1 mg PO DAILY Glucosam/Chond/Hyalu/Cf Borate [Move Free Joint Health Tablet] 1 tab PO DAILY Acetaminophen [Tylenol Extra Strength] 1,000 mg PO Q6H PRN PRN Reason: Fever And/ Or Pain Cyanocobalamin (Vitamin B-12) [Vitamin B-12] 1,000 mcg PO DAILY Warfarin Sodium 4 mg PO TH@2099 Amiodarone [Cordarone] 200 mg PO DAILY Pregabalin [Lyrica] 100 mg PO BID #6 cap Albuterol Inhaler [Ventolin Hfa Inhaler] 2 puff INHALATION RT-Q6H PRN PRN Reason: Shortness Of Breath Furosemide [Lasix] 20 mg PO DAILY Cholecalciferol (Vitamin D3) [Vitamin D3 (50 Mcg = 2000 Iu)] 50 mcg PO DAILY Vit C/E/Zn/Coppr/Lutein/Zeaxan [Preservision Areds 2 Softgel] 1 cap PO DAILY Discharge Medication List Pantoprazole Sodium [Protonix] 40 mg PO BID 05/14/14 [History] Cyanocobalamin (Vitamin B-12) [Vitamin B-12] 1,000 mcg PO DAILY 06/16/22 [History] Lysine 1,000 mg PO DAILY 08/03/22 [History] Warfarin Sodium 4 mg PO TH@209912/07/22 [History] Amiodarone [Cordarone] 200 mg PO DAILY 01/24/23 [History] Spironolactone [Aldactone] 12.5 mg PO DAILY 01/24/23 [History] Warfarin Sodium 2 mg PO SUMOTUWEFRSA@209901/25/23 [History] DULoxetine HCL [Cymbalta] 60 mg PO DAILY 07/27/23 [History] Ipratropium Nebulized [Atrovent Nebulized 0.2 MG/ML] 0.5 mg INHALATION RT-BID 07/27/23 [History] Metoprolol Tartrate [Lopressor] 25 mg PO BID 07/27/23 [History] lisinopriL [Zestril] 2.5 mg PO DAILY 07/27/23 [History] Pregabalin [Lyrica] 100 mg PO BID #6 cap 08/04/23 [Rx] Acetaminophen [Tylenol Extra Strength] 1,000 mg PO Q6H PRN 12/22/23 [History] Albuterol Inhaler [Ventolin Hfa Inhaler] 2 puff INHALATION RT-Q6H PRN 12/22/23 [History] Cholecalciferol (Vitamin D3) [Vitamin D3 (50 Mcg = 2000 Iu)] 50 mcg PO DAILY 12/22/23 [History] Furosemide [Lasix] 20 mg PO DAILY 12/22/23 [History] Glucosam/Chond/Hyalu/Cf Borate [Move Free Joint Health Tablet] 1 tab PO DAILY 12/22/23 [History] Vit C/E/Zn/Coppr/Lutein/Zeaxan [Preservision Areds 2 Softgel] 1 cap PO DAILY 12/22/23 [History] estradioL [Estrace] 1 mg PO DAILY 12/22/23 [History] Atorvastatin [Lipitor] 40 mg PO HS #90 tab 12/25/23 [Rx] Follow up Appointment(s)/Referral(s): Dex Mcneal MD [Primary Care Provider] - 1-2 days Sergey Castorena MD [STAFF PHYSICIAN] - 1 Week Patient Instructions/Handouts: Coronary Artery Disease in Women (DC) Activity/Diet/Wound Care/Special Instructions: Please see your PCP and cardiology. Discharge Disposition: HOME SELF-CARE
[2023-12-25] MEDS ORDERED: ATORVASTATIN 40 MG TAB PO SCH (21:00)
--- NOTE | 2023-12-27 17:28 | CDI ---
Documentation Clarification Form Date: 12/27/2023 05:22:09 PM From: Karen Branham Phone: Admit Date: 12/23/2023 12:38:00 PM Patient Name: Lily Oliver Visit Number: [id number] Discharge Date: 12/25/2023 07:45:00 PM ATTENTION: The Clinical Documentation Specialists (CDI) and [facility] Coding Staff appreciate your assistance in clarifying documentation. Please respond to the clarification below the line at the bottom and electronically sign. The CDI & [facility] Coding staff will review the response and follow-up if needed. Please note: Queries are made part of the Legal Health Record. If you have any questions, please contact the author of this message via ITS. Dr. Marcelino Colón Unspecified CKD is documented in the H&P. Additional clarification regarding the stage of CKD is requested. History/Risk Factors: 78yo F, CAD w unstable angina, CSHF, perm A Fib, CKD w anemia,COPD,HTN Patients Historical: Renal function at baseline creatinine of 1.48 Clinical Indicators: BUN: 31.6-32.9 CR: 1.5 GFR: 35 Treatment: Continue home amiodarone 200 mg daily, Lasix 20 mg daily, Lisinopril 2.5 mg daily, metoprolol 25 twice daily Please clarify the stage of the CKD, if known: [ x ] CKD Stage 3b [ ] CKD Stage 4 [ ] Other, please specify [ ] Unable to determine Reference: National Kidney Foundation Stage 1 eGFR = 90 and kidney damage for =3 months Stage 2 eGFR 60-89 and kidney damage for =3 months Stage 3a eGFR 45-59 and kidney damage for =3 months Stage 3b eGFR 30-44 and kidney damage for =3 months Stage 4 eGFR 15-29 r and kidney damage for =3 months Stage 5 eGFR <15 and kidney damage for =3 months (Template last revised: October 2023) MTDD
== END 2023-12-25 19:45 | disposition home or self-care (01) | DRG 287 ==
LOC: EC 12:00 → 6NMEDSUR 15:02 → OBSVTOIN 12-23 12:38
PROVIDERS: ADMIT Student in an Organized Health Care Education/Training Program; ATTEND Student in an Organized Health Care Education/Training Program
PROC: B2111ZZ Fluoroscopy of Multiple Coronary Arteries using Low Osmolar Contrast (ICD-10-PCS; principal; 2023-12-24 07:30)
PROC: 4A023N7 Measurement of Cardiac Sampling and Pressure, Left Heart, Percutaneous Approach (ICD-10-PCS; 2023-12-24 07:30)
PROC: 4A033BC Measurement of Arterial Pressure, Coronary, Percutaneous Approach (ICD-10-PCS; 2023-12-24 07:30)
DX: I25.110 Atherosclerotic heart disease of native coronary artery with unstable angina pectoris (principal); I50.22 Chronic systolic (congestive) heart failure; I48.21 Permanent atrial fibrillation; I13.0 Hypertensive heart and chronic kidney disease with heart failure and stage 1 through stage 4 chronic kidney disease, or unspecified chronic kidney disease; D63.1 Anemia in chronic kidney disease; N18.32 Chronic kidney disease, stage 3b; M06.9 Rheumatoid arthritis, unspecified; G62.9 Polyneuropathy, unspecified; E78.5 Hyperlipidemia, unspecified; I73.00 Raynaud's syndrome without gangrene; I44.7 Left bundle-branch block, unspecified; R79.1 Abnormal coagulation profile; J44.89 Other specified chronic obstructive pulmonary disease; Z96.641 Presence of right artificial hip joint; Z96.653 Presence of artificial knee joint, bilateral; Z79.01 Long term (current) use of anticoagulants; Z82.49 Family history of ischemic heart disease and other diseases of the circulatory system; Z79.51 Long term (current) use of inhaled steroids; Z79.890 Hormone replacement therapy; Z88.1 Allergy status to other antibiotic agents; Z88.5 Allergy status to narcotic agent; Z86.73 Personal history of transient ischemic attack (TIA), and cerebral infarction without residual deficits; I25.2 Old myocardial infarction; Z79.899 Other long term (current) drug therapy; Z85.820 Personal history of malignant melanoma of skin; Z88.8 Allergy status to other drugs, medicaments and biological substances; Z87.19 Personal history of other diseases of the digestive system; Z88.0 Allergy status to penicillin; Z88.6 Allergy status to analgesic agent; Z91.018 Allergy to other foods; Z91.011 Allergy to milk products
CPT/HCPCS: 36415; 71046; 76937; 80048; 80053; 83690; 83735; 83880; 84484; 85025; 85379; 85610; 85730; 93005; 93458; 93799; 94640; 96361; 96365; 96366; 99285

== ENCOUNTER 2024-01-04 08:37 | Day surgery (SDC) | payer MEDICARE, BC ==
[~2024-01-04 08:37] MED LIST changes: +ALPRAZolam 0.25 MG TAB PO PRN; +ALPRAZolam 0.5 MG TAB PO PRN; -DULoxetine HCL 30 MG CAPSULE.DR PO STA; -LEFLUNOMIDE 20 MG TAB PO STA; +NITROGLYCERIN SL TABS 0.4 MG TAB SUBLINGUAL PRN; -PREGABALIN 75 MG CAP PO STA; -PROPOFOL 10 MG/ML 20 ML VIAL IV ONE; -RIVAROXABAN 20 MG TAB PO STA; -SODIUM CHLORIDE 0.9% 1,000 ML IV SCH
[2024-01-04] MEDS: ASPIRIN 81 MG ONE (09:07)
[2024-01-04] MEDS: SODIUM CHLORIDE 0.9% 1,000 ML in EMPTY BAG 1 BAG IV SCH ×2 (09:07→17:40)
[2024-01-04 09:19] LABS: Prothrombin Time 11.1 sec (10.0-12.5)
[2024-01-04 09:20] LABS: Basophils % (A) 1 %; Eosinophils # (A) 0.2 k/uL (0-0.7); Eosinophils % (A) 4 %; HCT 35.9 % (34.0-46.0); HGB 11.5 gm/dL (11.4-16.0); Lymphocytes % (A) 21 %; MCH 30.3 pg (25.0-35.0); Mean Platelet Volume 9.1; Monocytes # (A) 0.4 k/uL (0-1.0); Monocytes % (A) 8 %; Neutrophils # (A) 3.1 k/uL (1.3-7.7); Neutrophils % (A) 63 %; Platelet Count 236 k/uL (150-450); RBC 3.79 m/uL (3.80-5.40); RDW 13.7 % (11.5-15.5); WBC 4.9 k/uL (3.8-10.6)
[2024-01-04 09:26] LABS: MCV 94.7 fL (80.0-100.0)
[2024-01-04 09:27] LABS: African American GFR (CKD) 33 (>60 ml/min/1.73 sqM); Anion Gap 7 mmol/L; Blood Urea Nitrogen 37 mg/dL (7-17); Carbon Dioxide 25 mmol/L (22-30); Chloride 105 mmol/L (98-107); Glucose 83 mg/dL (74-99); Non-African American GFR(CKD) 29 (>60 ml/min/1.73 sqM); Potassium 3.9 mmol/L (3.5-5.1); Sodium 137 mmol/L (137-145)
[2024-01-04] MEDS ORDERED: LIDOCAINE 1% INJ 10MG/ML (20 ML MDV) ONE (10:18)
[2024-01-04] MEDS ORDERED: HEPARIN SODIUM 1,000 UN/ML (10ML VL) ONE (10:52)
[2024-01-04] MEDS: LIDOCAINE 1% INJ 10MG/ML (20 ML MDV) SQ ONE (10:53)
[2024-01-04] MEDS: VERAPAMIL SYRINGE (5 MG/10 ML) INTRAARTER ONE (10:54)
[2024-01-04] MEDS ORDERED: VERAPAMIL 2.5 MG/ML 2 ML AMP ONE (10:54)
[2024-01-04] MEDS: MIDAZOLAM 2 MG/2 ML VIAL IVP ONE (10:55)
[2024-01-04] MEDS: HEPARIN SODIUM 1,000 UN/ML (10ML VL) IVP ONE ×2 (10:57→12:05)
[2024-01-04] MEDS ORDERED: CLOPIDOGREL 75 MG TAB ONE (11:04)
[2024-01-04] MEDS: CLOPIDOGREL 75 MG TAB PO ONE (11:17)
[2024-01-04] MEDS ORDERED: fentaNYL (PF) 50 MCG/ML 2 ML AMP ONE (11:31)
[2024-01-04] MEDS: fentaNYL (PF) 50 MCG/ML 2 ML AMP IVP ONE ×3 (11:33→11:48)
[2024-01-04] MEDS: NITROGLYCERIN 1000MCG/10ML SYRINGE INTRACORON ONE (11:49)
[2024-01-04] MEDS: ATROPINE SULFATE 0.1 MG/ML 10ML SYRINGE IVP ONE (11:53)
[2024-01-04] MEDS ORDERED: MORPHINE SULFATE 4 MG/ML SYRINGE ONE (11:56)
[2024-01-04] MEDS: MORPHINE SULFATE 4 MG/ML SYRINGE IVP ONE (11:58)
[2024-01-04] MEDS: IOPAMIDOL-370 100ML BTL INJ ONE (11:59)
[2024-01-04] MEDS: SODIUM CHLORIDE 0.9% 1,000 ML IV ONE (12:01)
[2024-01-04] MEDS ORDERED: ALBUTEROL NEBULIZED 2.5 MG/3 ML INHALATION PRN (12:11)
[2024-01-04] MEDS ORDERED: NITROGLYCERIN SL TABS 0.4 MG TAB SUBLINGUAL PRN (12:12)
[2024-01-04] MEDS ORDERED: RX INFO: IV CONTRAST WAS GIVEN 1 EACH MISC MISCELLANE PRN (12:12)
[2024-01-04] MEDS ORDERED: ATROPINE SULFATE 0.1 MG/ML 10ML SYRINGE IV PRN (12:12)
[2024-01-04] MEDS ORDERED: MAG HYDROX/AL HYDROX/SIMETH 30 ML CUP PO PRN (12:12)
[2024-01-04] MEDS ORDERED: ZOLPIDEM 5 MG TAB PO PRN (12:12)
--- NOTE | 2024-01-04 12:19 | P.PCN ---
Date of Procedure: 01/04/24 Operative Findings: PERCUTANEOUS CORONARY INTERVENTION Performing physician Sergey Castorena M.D. Procedure Performed: 1. Successful stenting of the mid LAD using 3.5 x 28 Xience drug-eluting stent with an excellent angiographic results. 2. Successful stending of the proximal LAD using 3.5 x 12 Xience drug-eluting stent with an excellent angiographic result. 3. Adjunctive use of intravascular imaging and lithotripsy balloon and ultrasound-guided access of the left radial artery Indication: Chest discomfort in this 78-year-old female patient who is known to have CAD and known intermediate disease involving the LAD documented to be flow-limiting by Doppler wire few days ago. Approach: Left radial artery Complications: None Level of Sedation: Moderate with a sedation length of 69 minutes Procedure Discussion: After obtaining informed consent the patient was brought to the cardiac Bread Dumper. The left radial artery was cannulated using micropuncture technique under ultrasound guidance a micropuncture wire passed easily then I placed a 6 Israeli 11 cm sheath at the left radial artery. At that point anticoagulation was initiated using heparin with continuous ACT monitoring. Please note that the patient was given 2 mg of verapamil and intra-arterial as well. I did engage the left main coronary artery using JL 4 guiding catheter. I did wire to the LAD using a run-through wire and also I wired the diagonal branch using another run-through wire. Subsequently intravascular ultrasound was performed and showed a calcified LAD with a calcium extends about 180 degree angle and a diameter around 3.5 mm. I did decide to go ahead and use shockwave balloon. 3.0 mm shockwave balloon would not cross the lesion in spite of using 2 wires. At that point I decided to predilate using 2.5 mm score flex balloon. The balloon was inflated under 12 figueroa multiple times in the proximal and mid left anterior descending artery. After that I was able to advance a 3 mm shockwave balloon. I did balloon angioplasty of the LAD in the proximal and midportion using the shockwave balloon but there was a spot was not giving up. For that reason and before I decided to go ahead and use the stent I decided to predilated again using 3.25 mm noncompliant balloon which also was inflated multiple times in the left anterior descending artery but this time the balloon would not cross unless the use guide liner. After that I deployed in the mid LAD 3.5 x 28 mm stent which was postdilated using 3.5 mm noncompliant balloon. An angiogram was performed and showed good angiographic results in the LAD in the midportion documented by intravascular imaging but proximal to the stent there is a hazy lesion appeared to be flow-limiting which I also decided to cover with a stent so I deployed a 3.5 x 12 mm stent. After that the area of overlap between the 2 stents was dilated using the stent balloon and finally I did postdilatation of the stented segment in the proximal portion using 3.5 mm noncompliant balloon. Final angiogram showed excellent angiographic results and the procedure was completed with no complication Postprocedure Management: 1. Dual antiplatelet therapy using aspirin and Plavix and Coumadin for 4 weeks and subsequently anticoagulation and Plavix for 6-month 2. Aggressive cholesterol control 3. Risk factors modification
[2024-01-04] MEDS: ACETAMINOPHEN TAB 500 MG TAB PO PRN (16:57)
[2024-01-04] MEDS: PANTOPRAZOLE 40 MG TABLET PO SCH (17:44)
[2024-01-04] MEDS: WARFARIN 5 MG TAB PO ONE (17:44)
[2024-01-04] MEDS: IPRATROPIUM 0.5 MG/2.5 ML NEBU INHALATION SCH (20:29)
[2024-01-04] MEDS: PREGABALIN 100 MG CAP PO SCH (20:59)
[2024-01-04] MEDS: ATORVASTATIN 40 MG TAB PO SCH (20:59)
[2024-01-04] MEDS ORDERED: NON FORMULARY DRUG (Warfarin Sodium [Warfarin Sodium] 4 MG Tablet) PO SCH (21:00)
[2024-01-04] MEDS: METOPROLOL TARTRATE 25 MG TAB PO SCH (23:41)
[2024-01-05 06:49] LABS: INR 1.1 (<1.2); Prothrombin Time 11.4 sec (10.0-12.5)
[2024-01-05] MEDS: ASPIRIN 81 MG PO SCH (08:59)
[2024-01-05] MEDS: AMIODARONE 200 MG TAB PO SCH (08:59)
[2024-01-05] MEDS: CHOLECALCIFEROL 25 MCG (1000 IU) TABLET PO SCH (09:00)
[2024-01-05] MEDS ORDERED: NON FORMULARY DRUG (Lysine [Lysine] 500 MG Tablet) PO SCH (09:00)
[2024-01-05] MEDS: DULoxetine HCL 60 MG CAPSULE.DR PO SCH (09:00)
[2024-01-05] MEDS: CLOPIDOGREL 75 MG TAB PO SCH (09:00)
[2024-01-05] MEDS: CYANOCOBALAMIN 500 MCG TAB PO SCH (09:00)
[2024-01-05] MEDS: ISOSORBIDE MONONITRATE ER 30 MG TAB.ER.24H PO SCH (09:01)
[2024-01-05] MEDS: FUROSEMIDE 20 MG TAB PO SCH (09:01)
[2024-01-05] MEDS: VIT A,C & E-LUTEIN-MINERALS 1 EACH TAB PO SCH (09:02)
[2024-01-05] MEDS: METOPROLOL TARTRATE 12.5 MG TAB PO SCH (09:02)
[2024-01-05] MEDS: SPIRONOLACTONE 25 MG TAB PO SCH (09:08)
[2024-01-05 10:31] LABS: African American GFR (CKD) 42 (>60 ml/min/1.73 sqM); Non-African American GFR(CKD) 36 (>60 ml/min/1.73 sqM)
--- NOTE | 2024-01-05 10:49 | P.PN ---
Subjective HISTORY OF PRESENT ILLNESS: Patient is status postcardiac catheterization yesterday with Dr. Castorena with stenting of the mid and proximal LAD. Patient examined this morning at bedside. Patient is complaining of chest pain this morning and rating it an 8 out of 10. She reports she has been having chest pain throughout the night. She denies any shortness of breath. Denies any dizziness or lightheadedness. EKG obtained this morning reveals sinus mechanism with left bundle branch block. Radial cath site with pulse present. PHYSICAL EXAM: VITAL SIGNS: Reviewed. GENERAL: Well-developed in no acute distress. NECK: Supple. No JVD or thyromegaly LUNGS: Respirations even and unlabored. Lungs essentially clear to auscultation bilaterally. HEART: Regular rate and rhythm. S1 and S2 heard. EXTREMITIES: Normal range of motion. No clubbing or cyanosis. Peripheral pulses intact. No lower extremity edema ASSESSMENT: Coronary artery disease, status post stenting of mid and proximal LAD Known cardiomyopathy Permanent atrial fibrillation Valvular heart disease Pulmonary hypertension Chronic kidney disease Hypertension Hyperlipidemia COPD PLAN: Continue triple therapy with aspirin Plavix and Coumadin. Will discontinue aspirin after 1 week Add Imdur 30 mg daily Obtain limited echo to assess for pericardial effusion If patient continues to have chest pain, will consider repeat heart catheterization Further recommendations pending patient course Nurse practitioner note has been reviewed by physician. Signing provider agrees with the documented findings, assessment, and plan of care documented by SALES AND SERVICE SPECIALIST as a scribe. Objective - Vital Signs Vital signs: Vital Signs Temp 98 F 01/05/24 07:00 Pulse 77 01/05/24 08:23 Resp 16 01/05/24 07:00 BP 107/63 01/05/24 07:00 Pulse Ox 95 01/05/24 07:00 FiO2 Intake & Output 01/04/24 01/05/24 01/05/24 18:59 06:59 18:59 Intake Total 900 Balance 900 Weight 70.6 kg Intake: IV 750 Intake, IV Titration 150 Amount Sodium Chloride 0.9% 1, 150 000 ml In Empty Bag 1 bag @ 75 mls/hr IV .[id number] [facility] Rx#:[id number] Other: # Voids 1 3 - Labs CBC & Chem 7: 01/04/24 08:55 01/05/24 05:40 Labs: Abnormal Lab Results - Last 24 Hours (Table) 03/14/24 Range/Units 05:40 Creatinine 1.40 H (0.52-1.04) mg/dL
--- NOTE | 2024-01-05 11:35 | CA ---
Transthoracic Echo Report Name: Lily Oliver Age: 78 Gender: F : 1945 Exam Date: 01/05/2024 08:54 Exam Location: [facility] Ht (in): 64 Wt (lb): 155 Ordering Physician: Kathy Loo Attending/Referring Phys: [id number], Eze Ore Mixer Flash Nuñez RDCS Procedure CPT: Indications: s/p cath, CP, r/o effusion Cardiac Hx: Technical Quality: Contrast 1: Total Dose (mL): Contrast 2: Total Dose (mL): MEASUREMENTS (Male / Female) Normal Values 2D ECHO LV Diastolic Diameter PLAX 4.8 cm 4.2 - 5.9 / 3.9 - 5.3 cm LV Systolic Diameter PLAX 3.0 cm IVS Diastolic Thickness 0.8 cm 0.6 - 1.0 / 0.6 - 0.9 cm LVPW Diastolic Thickness 0.8 cm 0.6 - 1.0 / 0.6 - 0.9 cm LV Relative Wall Thickness 0.3 FINDINGS Left Ventricle Right Ventricle Right Atrium Left Atrium Mitral Valve Aortic Valve Tricuspid Valve Pulmonic Valve Pericardium No pericardial effusion. Aorta CONCLUSIONS Limited study to rule out pericardial effusion. No pericardial effusion Previewed by: Dr. Sergey Castorena MD (Electronically Signed) Final Date: 05 January 2024 11:34
[2024-01-05 12:19] VITALS: BMI 26.6
[2024-01-05] MEDS: MAG HYDROX/AL HYDROX/SIMETH 30 ML, HYOSCYAMINE ELIXIR 10 ML, LIDOCAINE VISCOUS 10 ML PO ONE (12:51)
[2024-01-05] MEDS ORDERED: ALPRAZolam 0.25 MG TAB PO PRN (13:05)
[2024-01-05] MEDS ORDERED: ALPRAZolam 0.5 MG TAB PO PRN (13:05)
[2024-01-05] MEDS ORDERED: NITROGLYCERIN SL TABS 0.4 MG TAB SUBLINGUAL PRN (13:05)
[2024-01-05] MEDS ORDERED: SODIUM CHLORIDE 0.9% 1,000 ML in EMPTY BAG 1 BAG IV SCH (13:15)
[2024-01-05] MEDS: WARFARIN 5 MG TAB PO ONE (19:00)
[2024-01-06 03:59] VITALS: RESP 16
[2024-01-06] MEDS ORDERED: HEPARIN SODIUM,PORCINE 10,000 UNIT in SODIUM CHLORIDE 0.9% 1,000 ML IRRIGATION PRN (07:00)
[2024-01-06] MEDS ORDERED: HEPARIN SODIUM,PORCINE (1 ML) 2,500 UNIT in SODIUM CHLORIDE 0.9% 250 ML IRRIGATION PRN (07:00)
[2024-01-06 07:35] LABS: INR 1.2 (<1.2)
[2024-01-06 07:59] VITALS: BP 118/62; PULSE 86; TEMP 98.5
--- NOTE | 2024-01-06 13:04 | P.DS ---
Providers Attending physician: Sergey Castorena Consults: 01/04/24 12:12 Consult Physician Routine Consulting Provider: [facility] Consult Reason/Comments: Post Interventional patient Do you want consulting provider notified?: Already Contacted Primary care physician: Dex Mcneal MD Hospital Course: This is a 78-year-old female who underwent cardiac catheterization with Dr. Castorena with stenting of the mid and proximal LAD. The patient continued to have some chest pain after her procedure and was kept for an additional day for observation. She was started on Imdur. She also underwent a limited echo to assess for pericardial effusion which was negative. She has had no further episodes of chest pain overnight or this morning. She denies any shortness of breath. She has been up ambulating without difficulty. Vital signs are stable. She was deemed stable for discharge home today per Dr. Castorena. Please see EMR for further hospital course details. Discharge Diagnosis Coronary artery disease, status post stenting of mid and proximal LAD Known cardiomyopathy Permanent atrial fibrillation Valvular heart disease Pulmonary hypertension Chronic kidney disease Hypertension Hyperlipidemia COPD Nurse practitioner note has been reviewed by physician. Signing provider agrees with the documented findings, assessment, and plan of care documented by TECHNOLOGY COORDINATOR as a scribe. Plan - Discharge Summary Discharge Rx Participant: No New Discharge Prescriptions: New Clopidogrel [Plavix] 75 mg PO DAILY #90 tab Aspirin 81 mg PO DAILY #7 tab Isosorbide Mononitrate ER [Imdur] 30 mg PO DAILY #90 tab Metoprolol Tartrate [Lopressor] 12.5 mg PO BID #60 tab Continue Spironolactone [Aldactone] 12.5 mg PO DAILY Warfarin Sodium 2 mg PO SUMOTUWEFRSA@2100 lisinopriL [Zestril] 2.5 mg PO DAILY Atorvastatin [Lipitor] 40 mg PO HS #90 tab Warfarin Sodium 4 mg PO TH@2100 Amiodarone [Cordarone] 200 mg PO DAILY Furosemide [Lasix] 20 mg PO DAILY Discontinued Metoprolol Tartrate [Lopressor] 25 mg PO BID No Action Pantoprazole Sodium [Protonix] 40 mg PO BID Lysine 1,000 mg PO DAILY Ipratropium Nebulized [Atrovent Nebulized 0.2 MG/ML] 0.5 mg INHALATION RT-BID DULoxetine HCL [Cymbalta] 60 mg PO DAILY estradioL [Estrace] 1 mg PO DAILY Glucosam/Chond/Hyalu/Cf Borate [Move Free Joint Health Tablet] 1 tab PO DAILY Acetaminophen [Tylenol Extra Strength] 1,000 mg PO Q6H PRN PRN Reason: Fever And/ Or Pain Cyanocobalamin (Vitamin B-12) [Vitamin B-12] 1,000 mcg PO DAILY Pregabalin [Lyrica] 100 mg PO BID #6 cap Albuterol Inhaler [Ventolin Hfa Inhaler] 2 puff INHALATION RT-Q6H PRN PRN Reason: Shortness Of Breath Cholecalciferol (Vitamin D3) [Vitamin D3 (50 Mcg = 2000 Iu)] 50 mcg PO DAILY Vit C/E/Zn/Coppr/Lutein/Zeaxan [Preservision Areds 2 Softgel] 1 cap PO DAILY Discharge Medication List Pantoprazole Sodium [Protonix] 40 mg PO BID 05/14/14 [History] Cyanocobalamin (Vitamin B-12) [Vitamin B-12] 1,000 mcg PO DAILY 06/16/22 [History] Lysine 1,000 mg PO DAILY 08/03/22 [History] Warfarin Sodium 4 mg PO TH@209912/07/22 [History] Amiodarone [Cordarone] 200 mg PO DAILY 01/24/23 [History] Spironolactone [Aldactone] 12.5 mg PO DAILY 01/24/23 [History] Warfarin Sodium 2 mg PO SUMOTUWEFRSA@209901/25/23 [History] DULoxetine HCL [Cymbalta] 60 mg PO DAILY 07/27/23 [History] Ipratropium Nebulized [Atrovent Nebulized 0.2 MG/ML] 0.5 mg INHALATION RT-BID 07/27/23 [History] lisinopriL [Zestril] 2.5 mg PO DAILY 07/27/23 [History] Pregabalin [Lyrica] 100 mg PO BID #6 cap 08/04/23 [Rx] Acetaminophen [Tylenol Extra Strength] 1,000 mg PO Q6H PRN 12/22/23 [History] Albuterol Inhaler [Ventolin Hfa Inhaler] 2 puff INHALATION RT-Q6H PRN 12/22/23 [History] Cholecalciferol (Vitamin D3) [Vitamin D3 (50 Mcg = 2000 Iu)] 50 mcg PO DAILY 02/29/24 [History] Furosemide [Lasix] 20 mg PO DAILY 12/22/23 [History] Glucosam/Chond/Hyalu/Cf Borate [Move Free Joint Health Tablet] 1 tab PO DAILY 12/22/23 [History] Vit C/E/Zn/Coppr/Lutein/Zeaxan [Preservision Areds 2 Softgel] 1 cap PO DAILY 12/22/23 [History] estradioL [Estrace] 1 mg PO DAILY 12/22/23 [History] Atorvastatin [Lipitor] 40 mg PO HS #90 tab 12/25/23 [Rx] Aspirin 81 mg PO DAILY #7 tab 01/06/24 [Rx] Clopidogrel [Plavix] 75 mg PO DAILY #90 tab 01/06/24 [Rx] Isosorbide Mononitrate ER [Imdur] 30 mg PO DAILY #90 tab 01/06/24 [Rx] Metoprolol Tartrate [Lopressor] 12.5 mg PO BID #60 tab 01/06/24 [Rx] Follow up Appointment(s)/Referral(s): Sergey Castorena MD [STAFF PHYSICIAN] - 1 Week (THE OFFICE WILL CALL YOU WITH AN APPOINTMENT DATE AND TIME) Patient Instructions/Handouts: Moderate Sedation (ED), Cardiac Rehabilitation (ED), Coronary Intravascular Stent Placement (DC), After Radial Heart Catheterization (GEN) Activity/Diet/Wound Care/Special Instructions: Take 8mg of Coumadin tonight and then resume your normal dosing *NO LIFTING, PUSHING, OR PULLING ANYTHING OVER 5 POUNDS FOR 5 DAYS *NO DRIVING FOR 3 DAYS *YOU CAN REMOVE YOUR DRESSING TOMORROW BUT DO NOT SUBMERSE YOUR PUNCTURE SITE UNDER WATER FOR AT LEAST A FEW DAYS TO PREVENT INFECTION - A SHOWER IS OK TOMORROW BUT DO NO TUB BATHS, POOLS, HOT TUBS, DISHES...ETC *ANY SIGNS OF BLEEDING (HARDNESS, SWELLING, OR EXCESSIVE BRUISING) HOLD DIRECT PRESSURE ON YOUR PUNCTURE SITE AND COME TO THE NEAREST EMERGENCY ROOM TO GET YOUR PUNCTURE SITE LOOKED AT - DO NOT DRIVE YOURSELF! EITHER CALL EMS OR HAVE SOMEONE DRIVE YOU! Discharge Disposition: HOME SELF-CARE
[2024-01-06] MEDS ORDERED: WARFARIN 2 MG TAB PO ONE (18:00)
== END 2024-01-06 11:51 | disposition home or self-care (01) ==
LOC: CATHCVL 08:37 → 6NMEDSUR 11:59 → CATHCVL 01-06 11:51
PROVIDERS: ATTEND Internal Medicine Interventional Cardiology
DX: I25.10 Atherosclerotic heart disease of native coronary artery without angina pectoris (principal); I42.8 Other cardiomyopathies; I12.9 Hypertensive chronic kidney disease with stage 1 through stage 4 chronic kidney disease, or unspecified chronic kidney disease; N18.9 Chronic kidney disease, unspecified; I48.21 Permanent atrial fibrillation; E78.5 Hyperlipidemia, unspecified; I08.1 Rheumatic disorders of both mitral and tricuspid valves; J44.89 Other specified chronic obstructive pulmonary disease; D64.9 Anemia, unspecified; K27.9 Peptic ulcer, site unspecified, unspecified as acute or chronic, without hemorrhage or perforation; Z95.5 Presence of coronary angioplasty implant and graft; Z79.51 Long term (current) use of inhaled steroids; Z79.01 Long term (current) use of anticoagulants; Z79.899 Other long term (current) drug therapy; Z88.1 Allergy status to other antibiotic agents; Z88.8 Allergy status to other drugs, medicaments and biological substances
CPT/HCPCS: 94640 ×3; 93308; 92978; 92972; 76937; 80048; 82565; 85025; 85610 ×3; C9600; C1887 ×2; C1894 ×2; C1769 ×3; C1753; C1874 ×2; C1725 ×5; J2250; J2270; J2001; J0461; J3010; J1644; Q9967; J2305

== ENCOUNTER 2024-04-27 12:15 | Inpatient (IN) | payer MEDICARE, BC ==
--- NOTE | 2024-04-27 12:54 | ED ---
Chest Pain HPI - General Chief Complaint: Chest Pain Stated Complaint: Chest pain,CIELO Time Seen by Provider: 04/27/24 12:38 Source: patient, RN notes reviewed, old records reviewed Mode of arrival: ambulatory Limitations: no limitations - History of Present Illness Initial Comments: This is a 78-year-old female to the ER for evaluation of chest pain today severe and significant chest pain here in the emergency department MD Complaint: chest pain -: days(s) Onset: during rest, during exertion Pain Location: substernal Pain Radiation: none, jaw/teeth Quality: tightness, aching Consistency: constant, intermittent Improves With: nothing Worsens With: nothing Anginal Symptoms: diaphoresis, dyspnea, sense of impending doom Other Symptoms: palpitations Treatments Prior to Arrival: none - Related Data Home Medications Medication Instructions Recorded Confirmed Pantoprazole Sodium [Protonix] 40 mg PO BID 05/14/14 04/27/24 Cyanocobalamin (Vitamin B-12) 1,000 mcg PO DAILY 06/16/22 04/27/24 [Vitamin B-12] Lysine 1,000 mg PO DAILY 08/03/22 04/27/24 Warfarin Sodium 4 mg PO MOFR@2100 12/07/22 04/27/24 Amiodarone [Cordarone] 200 mg PO DAILY 01/24/23 04/27/24 Spironolactone [Aldactone] 12.5 mg PO DAILY 01/24/23 04/27/24 Warfarin Sodium 2 mg PO SUTUWETHSA@2100 01/25/23 04/27/24 DULoxetine HCL [Cymbalta] 60 mg PO DAILY 07/27/23 04/27/24 Ipratropium Nebulized [Atrovent 0.5 mg INHALATION RT-BID 07/27/23 04/27/24 Nebulized 0.2 MG/ML] lisinopriL [Zestril] 2.5 mg PO DAILY 07/27/23 04/27/24 Acetaminophen [Tylenol Extra 1,000 mg PO Q6H PRN 12/22/23 04/27/24 Strength] Albuterol Inhaler [Ventolin Hfa 2 puff INHALATION RT-Q6H PRN 12/22/23 04/27/24 Inhaler] Cholecalciferol (Vitamin D3) 50 mcg PO DAILY 12/22/23 04/27/24 [Vitamin D3 (50 Mcg = 2000 Iu)] Furosemide [Lasix] 20 mg PO DAILY 12/22/23 04/27/24 Glucosam/Chond/Hyalu/Cf Borate 1 tab PO DAILY 12/22/23 04/27/24 [Move Free Joint Health Tablet] Vit C/E/Zn/Coppr/Lutein/Zeaxan 1 cap PO DAILY 12/22/23 04/27/24 [Preservision Areds 2 Softgel] estradioL 2 mg PO DAILY 04/27/24 04/27/24 Previous Rx's Medication Instructions Recorded Pregabalin [Lyrica] 100 mg PO BID #6 cap 08/04/23 Atorvastatin [Lipitor] 40 mg PO HS #90 tab 12/25/23 Aspirin 81 mg PO DAILY #7 tab 01/06/24 Clopidogrel [Plavix] 75 mg PO DAILY #90 tab 01/06/24 Isosorbide Mononitrate ER [Imdur] 30 mg PO DAILY #90 tab 01/06/24 Metoprolol Tartrate [Lopressor] 12.5 mg PO BID #60 tab 01/06/24 Allergies Allergy/AdvReac Type Severity Reaction Status Date / Time cephalexin monohydrate Allergy Rash/Hives Verified 04/27/24 16:40 [From Keflex] diphenhydramine HCl Allergy SWELLING Verified 04/27/24 16:40 [From Benadryl] OF TONGUE, SOB enoxaparin [From Lovenox] Allergy Rash/Hives Verified 04/27/24 16:40 Penicillins Allergy SWELLING, Verified 04/27/24 16:40 HIVES sulfamethoxazole Allergy Anaphylaxis, Verified 04/27/24 16:40 [From Bactrim] Swelling trimethoprim [From Bactrim] Allergy Anaphylaxis, Verified 04/27/24 16:40 Swelling aspirin AdvReac EXCESS Verified 04/27/24 16:40 BLEEDING garlic AdvReac Nausea Verified 04/27/24 16:40 milk AdvReac Abdominal Verified 04/27/24 16:40 Pain morphine AdvReac Vomiting Verified 04/27/24 16:40 milk chocolate AdvReac Nausea Uncoded 04/27/24 12:31 Review of Systems ROS Statement: Those systems with pertinent positive or pertinent negative responses have been documented in the HPI. ROS Other: All systems not noted in ROS Statement are negative. EKG Findings - EKG Comments: EKG Findings:: EKG is A-fib 89 QRS 144 QTc 442 with a left bundle - EKG Results: EKG: interpreted by KENYETTA Past Medical History Past Medical History: Atrial Flutter, Asthma, Cancer, COPD, CVA/TIA, GERD/Reflux, GI Bleed, Hyperlipidemia, Hypertension, Memory Impairment, Myocardial Infarction (NM), Osteoarthritis (OA), Renal Disease, Rheumatoid Arthritis (RA) Additional Past Medical History / Comment(s): Chronic cough. Back pain, migraines. residual from stroke,Occasional slight difficulty with swallowing. Hx gastic ulcer, H-Pylori, diverticulitis, hx melanoma on face X2. Hx kidney stones, "kidney function low", raynauds disease. recent stress test at Dr Castorena's office pt had chest pain-transferred to hospital heart cath unable to place stent at that time per pt. Last Myocardial Infarction Date:: 2012 History of Any Multi-Drug Resistant Organisms: None Reported Past Surgical History: Back Surgery, Cholecystectomy, Heart Catheterization, Hysterectomy, Joint Replacement, Orthopedic Surgery Additional Past Surgical History / Comment(s): RODS & CAGES IN BACK, RIGHT HIP REPLACEMENT, PARTIAL THYROIDECTOMY, BILATERAL KNEE REPLACEMENTS, NECK SURGERY WITH LIDIA AND CAGES, MELANOMA REMOVED FROM FACE X4, REPAIR OF HEMATOMA/FEMORAL ARTERY AFTER HEART CATHETERIZATION,rt foot bone spur removed Past Anesthesia/Blood Transfusion Reactions: Previous Problems w/ Anesthesia, Postoperative Nausea & Vomiting (PONV) Additional Past Anesthesia/Blood Transfusion Reaction / Comment(s): Hard to wake up. Past Psychological History: No Psychological Hx Reported Smoking Status: Never smoker Past Alcohol Use History: None Reported Past Drug Use History: None Reported - Past Family History Sister(s) Family Medical History: Cancer Brother(s) Family Medical History: Cancer Mother Family Medical History: Myocardial Infarction (NM) Additional Family Medical History / Comment(s): Mother of a NM at the age of 76yrs. Father History Unknown: Yes Family Medical History: Chest Pain / Angina General Exam Limitations: no limitations General appearance: alert, in no apparent distress Head exam: Present: atraumatic, normocephalic, normal inspection Eye exam: Present: normal appearance, PERRL, EOMI. Absent: scleral icterus, conjunctival injection, periorbital swelling ENT exam: Present: normal exam, mucous membranes moist Neck exam: Present: normal inspection. Absent: tenderness, meningismus, lymphadenopathy Respiratory exam: Present: normal lung sounds bilaterally. Absent: respiratory distress, wheezes, rales, rhonchi, stridor Cardiovascular Exam: Present: regular rate, normal rhythm, normal heart sounds. Absent: systolic murmur, diastolic murmur, rubs, gallop, clicks GI/Abdominal exam: Present: soft, normal bowel sounds. Absent: distended, tenderness, guarding, rebound, rigid Extremities exam: Present: normal inspection, full ROM, normal capillary refill. Absent: tenderness, pedal edema, joint swelling, calf tenderness Back exam: Present: normal inspection Neurological exam: Present: alert, oriented X3, CN II-XII intact Psychiatric exam: Present: normal affect, normal mood Skin exam: Present: warm, dry, intact, normal color. Absent: rash Course Vital Signs 04/27/24 04/27/24 04/27/24 12:28 13:13 13:40 Temperature 98.0 F Pulse Rate 91 77 Respiratory 22 18 Rate Blood Pressure 111/66 O2 Sat by Pulse 98 Oximetry 04/27/24 04/27/24 04/27/24 13:50 14:00 15:33 Temperature Pulse Rate 79 84 80 Respiratory 16 Rate Blood Pressure 139/111 O2 Sat by Pulse 94 L Oximetry 04/27/24 04/27/24 04/27/24 15:42 16:31 19:15 Temperature Pulse Rate 83 77 101 H Respiratory 18 23 Rate Blood Pressure 120/86 O2 Sat by Pulse 90 L 99 Oximetry - Reevaluation(s) Reevaluation #1: Medical record is reviewed Reevaluation #2: Patient symptoms unchanged here in the ER Reevaluation #3: Patient informed of results and questions answered Reevaluation #4: Was pt. sent in by a medical professional or institution (, PA, [employer], urgent care, hospital, or senior living...) When possible be specific @ -no Did you speak to anyone other than the patient for history (EMS, parent, family, police, friend...)? What history was obtained from this source @ -no Did you review nursing and triage notes (agree or disagree)? Why? @ -agree Are old charts reviewed (outside hosp., previous admission, EMS record, old EKG, old radiological studies, urgent care reports/EKG's, senior living records)? Report findings @ -yes Differential Diagnosis (chest pain, altered mental status, abdominal pain women, abdominal pain men, vaginal bleeding, weakness, fever, dyspnea, syncope, headache, dizziness, GI bleed, back pain, seizure, CVA, palpatations, mental health, musculoskeletal)? @ -prior EKG interpreted by me (3pts min.). @ -yes X-rays interpreted by me (1pt min.). @ -yes negative for acute disease CT interpreted by me (1pt min.). @ -no U/S interpreted by me (1pt. min.). @ -no What testing was considered but not performed or refused? (CT, X-rays, U/S, labs)? Why? @ -none What meds were considered but not given or refused? Why? @ -none Did you discuss the management of the patient with other professionals (professionals i.e. , PA, [employer], lab, RT, psych nurse, social services specialist, psych np, teacher, commanding officer traffic division, porter sample case)? Give summary @ -no Was smoking cessation discussed for >3mins.? @ -no Was critical care preformed (if so, how long)? @ -no Were there social determinants of health that impacted care today? How? (Homelessness, low income, unemployed, alcoholism, drug addiction, transportation, low edu. Level, literacy, decrease access to med. care, [facility], rehab)? @ -none Was there de-escalation of care discussed even if they declined (Discuss DNR or withdrawal of care, Hospice)? DNR status @ -no What co-morbidities impacted this encounter? (DM, HTN, Smoking, COPD, CAD, Cancer, CVA, ARF, Chemo, Hep., AIDS, mental health diagnosis, sleep apnea, morbid obesity)? @ -none Was patient admitted / discharged? Hospital course, mention meds given and route, prescriptions, significant lab abnormalities, going to OR and other pertinent info. @ - 78 female with CHF pneumonia atrial fibrillation and persistent shortness of breath and chest pain. Patient be admitted for further evaluation and monitoring Admitted Undiagnosed new problem with uncertain prognosis? @ -no Drug Therapy requiring intensive monitoring for toxicity (Heparin, Nitro, Insulin, Cardizem)? @ -no Were any procedures done? @ -no Diagnosis/symptom? @ -Chest pain COPD pneumonia bronchitis Acute, or Chronic, or Acute on Chronic? @ -Acute Uncomplicated (without systemic symptoms) or Complicated (systemic symptoms)? @ -Complicated Side effects of treatment? @ -no Exacerbation, Progression, or Severe Exacerbation? @ -exacerbation Poses a threat to life or bodily function? How? (Chest pain, [place], NM, pneumonia, PE, COPD, DKA, ARF, appy, cholecystitis, CVA, Diverticulitis, Homicidal, Suicidal, threat to staff... and all critical care pts) @ -yes multifactorial respiratory distress and chest pain Reevaluation #5: Differential Chest Pain: Stable Angina, Unstable Angina, STEMI, NSTEMI Aortic Dissection, Pneumothorax, Musculoskeletal, Esophageal Spasm GERD, Cholecystitis, Pancreatitis, Zoster, this is not meant to be an all-inclusive list. - Consultations Consultation #1: [facility]H who agrees to admit this patient Chest Pain MDM - MDM 78 female with CHF pneumonia atrial fibrillation and persistent shortness of breath and chest pain. Patient be admitted for further evaluation and monitoring Critical Care Time Critical Care Time: Yes Total Critical Care Time: 31 Disposition Clinical Impression: CHF (congestive heart failure), Chest pain, Pneumonia, Bronchitis, Acute bronchitis with COPD Disposition: ADMITTED IP TO THIS HOSP Condition: Fair Is patient prescribed a controlled substance at d/c from ED?: No Time of Disposition: 16:00
[2024-04-27] MEDS: SODIUM CHLORIDE 0.9% 1,000 ML IV STA (13:10)
[2024-04-27 13:37] LABS: ALT 29 U/L (4-34); AST 47 U/L (14-36); African American GFR (CKD) 42 (>60 ml/min/1.73 sqM); Alkaline Phosphatase 119 U/L (38-126); Anion Gap 11 mmol/L; Blood Urea Nitrogen 31 mg/dL (7-17); Calcium 8.6 mg/dL (8.4-10.2); Carbon Dioxide 17 mmol/L (22-30); Chloride 105 mmol/L (98-107); Glucose 88 mg/dL (74-99); Non-African American GFR(CKD) 36 (>60 ml/min/1.73 sqM); Potassium 4.1 mmol/L (3.5-5.1); Sodium 133 mmol/L (137-145); Total Bilirubin 0.9 mg/dL (0.2-1.3); Total Protein 6.5 g/dL (6.3-8.2)
[2024-04-27 13:38] LABS: Basophils % (A) 0 %; Eosinophils # (A) 0.1 k/uL (0-0.7); Eosinophils % (A) 1 %; HCT 30.3 % (34.0-46.0); HGB 9.9 gm/dL (11.4-16.0); Hypochromasia Slight; INR 1.8 (<1.2); Lymphocytes # (A) 0.8 k/uL (1.0-4.8); Lymphocytes % (A) 7 %; MCH 30.3 pg (25.0-35.0); MCHC 32.7 g/dL (31.0-37.0); MCV 92.8 fL (80.0-100.0); Mean Platelet Volume 8.4; Monocytes # (A) 1.2 k/uL (0-1.0); Monocytes % (A) 10 %; Neutrophils # (A) 9.3 k/uL (1.3-7.7); Neutrophils % (A) 80 %; Partial Thromboplastin Time 43.4 sec (22.0-30.0); Platelet Count 231 k/uL (150-450); Prothrombin Time 18.3 sec (10.0-12.5); RBC 3.26 m/uL (3.80-5.40); RDW 15.3 % (11.5-15.5); WBC 11.7 k/uL (3.8-10.6)
[2024-04-27] MEDS: IPRATROPIUM-ALBUTEROL 3 ML NEB INHALATION STA ×2 (13:39→15:32)
--- NOTE | 2024-04-27 13:42 | XR ---
EXAMINATION TYPE: XR chest 2V DATE OF EXAM: 04/27/2024 COMPARISON: 12/22/2023 TECHNIQUE: PA and lateral views submitted. HISTORY: Shortness of breath FINDINGS: The lungs are clear and there is no pneumothorax, pleural effusion, or focal pneumonia. Heart enlarg ed and there is emphysematous changes. Postsurgical change overlying the cervical spine. Arthropathy of the shoulders.. Osseous structures demonstrate hypertrophic and degenerative changes of the spine. Biapical pleural thickening. IMPRESSION: 1. No acute process. 2. Cardiomegaly correlate for COPD.
[2024-04-27 13:44] LABS: NT-Pro-B-Type Natriuretic Pept 2990 pg/mL
[2024-04-27] MEDS ORDERED: PNEUMONIA PROTOCOL UTILIZED 1 EACH MISC PO PRN (15:52)
[2024-04-27] MEDS: SODIUM CHLORIDE 0.9% 1,000 ML IV SCH (16:33)
[2024-04-27] MEDS: methylPREDNISolone SOD SUCCI 125 MG/2 ML VIAL IV STA (16:33)
[2024-04-27] MEDS: DEXAMETHASONE SOD PHOSPHATE 10 MG/ML 1 ML VIAL IVP STA (16:34)
[2024-04-27] MEDS: LEVOFLOXACIN 750MG-D5W PMX 750 MG in DEXTROSE/WATER 1 150ML.BAG IVPB SCH (16:51)
[2024-04-27] MEDS: methylPREDNISolone SOD SUCCI 125 MG/2 ML VIAL IV SCH (17:01)
[2024-04-27] MEDS: BENZONATATE 100 MG CAP PO STA (17:24)
[2024-04-27] MEDS: ASPIRIN 325 MG TAB PO STA (17:25)
--- NOTE | 2024-04-27 18:31 | P.HPIM ---
History of Present Illness H&P Date: 04/27/24 History of Presenting Illness: Patient is a very pleasant 78-year-old female with a past medical history of CAD status post recent stenting (states last stent placed 6 weeks ago), atrial fibrillation/flutter on anticoagulation with Coumadin, chronic systolic heart failure with previously known EF of 30 to 35%, hypertension, COPD not home oxygen dependent, and stage IIIb chronic kidney disease. She presented to the hospital with a chief complaint of chest pain/congestion and progressively worsening shortness of breath x 1 week. Upon arrival to our facility, patient underwent evaluation in the emergency department. Vital signs upon arrival show blood pressure 111/66, heart rate 91, respiratory rate 22, temp 98.0 F, and SpO2 of 98% on room air. EKG was completed showing atrial fibrillation with a controlled ventricular rate at 89 bpm with a left bundle branch block (LBBB is unchanged when compared to previous EKGs completed 01/05/2024). Chest x-ray completed showing cardiomegaly and emphysematous changes. Labs were completed and reviewed. CBC showing leukocytosis with WBC count of 11.7, normocytic anemia with hemoglobin of 9.9. Coagulation profile showing elevated PT of 18.3, INR of 1.8, and PTT of 43.4. D-dimer was negative at 0.29. BMP showing hyponatremia with sodium of 133, hypocarbia with bicarb of 17, and renal function consistent with known stage III CKD with BUN of 31, creatinine 1.40, and GFR of 36. Lactic acid 1.2. Liver profile showing elevated AST of 47 otherwise normal findings. Troponin was negative at less than 0.012. proBNP 2990. Influenza A, influenza B, RSV, and COVID PCR were negative. Patient admi tted under our services with consultation to cardiology and pulmonology. Patient seen and fully evaluated at bedside in the emergency department again she reports development of cough/congestion and shortness of breath 1 week ago. She states this is progressively worsening and she states she developed some chest pain/discomfort yesterday which is also worsened over the past 24 hours. Patient reports coughing up thick white to cream-colored sputum. Patient reports pain is to substernal region and worsens with cough. She denies having any fevers, chills, diaphoresis, palpitations, nausea, vomiting, abdominal pain, or experiencing any numbness/tingling/weakness/swelling in her extremities. Review of systems: Pertinent positives and negatives as discussed in HPI, a complete review of systems was performed and all other systems are negative. Physical exam: Vital signs reviewed and stable. General: Nontoxic, no distress and appears stated age. Derm: Skin warm and dry, normal coloration for ethnicity. Head: Atraumatic, normocephalic and symmetric. Eyes: EOMs intact, no lid lag, and anicteric sclera Mouth: no lip lesions, mucus membranes moist Cardiovascular: Irregularly irregular, systolic murmur, positive posterior tibial pulses bilaterally, and cap refill < 2 seconds. Lungs: Respirations even, regular, and unlabored on room air. Lungs diminished with diffuse expiratory wheezes throughout and coarse cough noted. Abdominal: soft, nontender to palpation, no guarding, no appreciable organomegaly Ext: ROM intact. No gross muscle atrophy, no edema, no contractures Neuro: Speech clear, face symmetrical and CN II-XII grossly intact with no noted focal neuro deficits Psych: Alert and oriented to person, place, time, and situation. Appropriate and pleasant affect. Assessment and Plan of Care: Acute respiratory failure with hypoxia COPD exacerbation Chest pain, rule out acute coronary event Subtherapeutic INR Chronic systolic heart failure with previously known EF of 30 to 35% History of CAD status post stenting Chronic atrial fibrillation -Consult to Pulmonology, appreciate recommendations -Consult cardiology, appreciate recommendations -Oxygenation to be administered and titrated as needed to maintain SPO2 equal to or greater than 92% -Telemetry monitoring. -Monitor pulse-oximetry -Duonebs scheduled 4 times daily and as needed for SOB and/or wheezing -Incentive Spirometry -Steroids: Solu-Medrol 60 mg IVP every 6 hours. -Antibiotics: Levaquin 750 mg daily. -Continue cardiac medication regimen with aspirin 81 mg daily, amiodarone 200 mg daily, Plavix 75 mg daily, Lasix 20 mg daily, isosorbide mononitrate 30 mg daily, lisinopril 2.5 mg daily, metoprolol 12.5 mg twice daily, and Aldactone 12.5 mg daily. -INR subtherapeutic at 1.8, order placed for pharmacy to dose Coumadin if no improvement in INR tomorrow may consider bridging patient with heparin infusion or Lovenox. Stage IIIb chronic kidney disease Anemia of chronic disease -Hemoglobin at baseline. Will continue to monitor with repeat morning CBC to follow-up on hemoglobin levels and BMP to monitor renal function closely. Data and imaging reviewed: As stated above in HPI. The patient is admitted with an anticipated greater than 2 midnight stay for evaluation of chest pain and acute respiratory failure with hypoxia and COPD e xacerbation. CODE STATUS: Full Code DVT prophylaxis: Coumadin Anticipated discharge date: Pending clinical course Anticipated discharge place: Home Patient was seen independently by Nurse Practitioner. This document was prepared using [employer] dictation software. Please allow for errors in grounds/maintenance specialist while rare they do occur. Rishi Hernandez NP rendered care for this patient independently, reviewed the findings and plan as documented in the note above. I did not physically speak with or examine the patient on this date. Past Medical History Past Medical History: Atrial Flutter, Asthma, Cancer, COPD, CVA/TIA, GERD/Reflux, GI Bleed, Hyperlipidemia, Hypertension, Memory Impairment, Myocardial Infarction (CO), Osteoarthritis (OA), Renal Disease, Rheumatoid Arthritis (RA) Additional Past Medical History / Comment(s): Chronic cough. Back pain, migraines. residual from stroke,Occasional slight difficulty with swallowing. Hx gastic ulcer, H-Pylori, diverticulitis, hx melanoma on face X2. Hx kidney stones, "kidney function low", raynauds disease. recent stress test at Dr Castorena's office pt had chest pain-transferred to hospital heart cath unable to place stent at that time per pt. Last Myocardial Infarction Date:: 2012 History of Any Multi-Drug Resistant Organisms: None Reported Past Surgical History: Back Surgery, Cholecystectomy, Heart Catheterization, Hysterectomy, Joint Replacement, Orthopedic Surgery Additional Past Surgical History / Comment(s): RODS & CAGES IN BACK, RIGHT HIP REPLACEMENT, PARTIAL THYROIDECTOMY, BILATERAL KNEE REPLACEMENTS, NECK SURGERY WITH LIDIA AND CAGES, MELANOMA REMOVED FROM FACE X4, REPAIR OF HEMATOMA/FEMORAL ARTERY AFTER HEART CATHETERIZATION,rt foot bone spur removed Past Anesthesia/Blood Transfusion Reactions: Previous Problems w/ Anesthesia, Postoperative Nausea & Vomiting (PONV) Additional Past Anesthesia/Blood Transfusion Reaction / Comment(s): Hard to wake up. Past Psychological History: No Psychological Hx Reported Smoking Status: Never smoker Past Alcohol Use History: None Reported Past Drug Use History: None Reported - Past Family History Sister(s) Family Medical History: Cancer Brother(s) Family Medical History: Cancer Mother Family Medical History: Myocardial Infarction (CO) Additional Family Medical History / Comment(s): Mother of a CO at the age of 76yrs. Father History Unknown: Yes Family Medical History: Chest Pain / Angina Medications and Allergies Home Medications Medication Instructions Recorded Confirmed Type Pantoprazole Sodium [Protonix] 40 mg PO BID 05/14/14 04/27/24 History Cyanocobalamin (Vitamin B-12) 1,000 mcg PO DAILY 06/16/22 04/27/24 History [Vitamin B-12] Lysine 1,000 mg PO DAILY 08/03/22 04/27/24 History Warfarin Sodium 4 mg PO MOFR@209912/07/22 04/27/24 History Amiodarone [Cordarone] 200 mg PO DAILY 01/24/23 04/27/24 History Spironolactone [Aldactone] 12.5 mg PO DAILY 01/24/23 04/27/24 History Warfarin Sodium 2 mg PO [id number]@209901/25/23 04/27/24 History DULoxetine HCL [Cymbalta] 60 mg PO DAILY 07/27/23 04/27/24 History Ipratropium Nebulized [Atrovent 0.5 mg INHALATION RT-BID 07/27/23 04/27/24 History Nebulized 0.2 MG/ML] lisinopriL [Zestril] 2.5 mg PO DAILY 07/27/23 04/27/24 History Pregabalin [Lyrica] 100 mg PO BID #6 cap 08/04/23 04/27/24 Rx Acetaminophen [Tylenol Extra 1,000 mg PO Q6H PRN 12/22/23 04/27/24 History Strength] Albuterol Inhaler [Ventolin Hfa 2 puff INHALATION RT-Q6H PRN 12/22/23 04/27/24 History Inhaler] Cholecalciferol (Vitamin D3) 50 mcg PO DAILY 12/22/23 04/27/24 History [Vitamin D3 (50 Mcg = 2000 Iu)] Furosemide [Lasix] 20 mg PO DAILY 12/22/23 04/27/24 History Glucosam/Chond/Hyalu/Cf Borate 1 tab PO DAILY 12/22/23 04/27/24 History [Move Free Joint Health Tablet] Vit C/E/Zn/Coppr/Lutein/Zeaxan 1 cap PO DAILY 12/22/23 04/27/24 History [Preservision Areds 2 Softgel] Atorvastatin [Lipitor] 40 mg PO HS #90 tab 12/25/23 04/27/24 Rx Aspirin 81 mg PO DAILY #7 tab 01/06/24 04/27/24 Rx Clopidogrel [Plavix] 75 mg PO DAILY #90 tab 01/06/24 04/27/24 Rx Isosorbide Mononitrate ER [Imdur] 30 mg PO DAILY #90 tab 01/06/24 04/27/24 Rx Metoprolol Tartrate [Lopressor] 12.5 mg PO BID #60 tab 01/06/24 04/27/24 Rx estradioL 2 mg PO DAILY 04/27/24 04/27/24 History Allergies Allergy/AdvReac Type Severity Reaction Status Date / Time cephalexin monohydrate Allergy Rash/Hives Verified 04/27/24 16:40 [From Keflex] diphenhydramine HCl Allergy SWELLING Verified 04/27/24 16:40 [From Benadryl] OF TONGUE, SOB enoxaparin [From Lovenox] Allergy Rash/Hives Verified 04/27/24 16:40 Penicillins Allergy SWELLING, Verified 04/27/24 16:40 HIVES sulfamethoxazole Allergy Anaphylaxis, Verified 04/27/24 16:40 [From Bactrim] Swelling trimethoprim [From Bactrim] Allergy Anaphylaxis, Verified 04/27/24 16:40 Swelling aspirin AdvReac EXCESS Verified 04/27/24 16:40 BLEEDING garlic AdvReac Nausea Verified 04/27/24 16:40 milk AdvReac Abdominal Verified 04/27/24 16:40 Pain morphine AdvReac Vomiting Verified 04/27/24 16:40 milk chocolate AdvReac Nausea Uncoded 04/27/24 12:31 Physical Exam Vitals: Vital Signs Temp Pulse Resp BP Pulse Ox 04/27/24 16:31 77 18 120/86 90 L 04/27/24 15:42 83 04/27/24 15:33 80 04/27/24 14:00 84 16 139/111 94 L 04/27/24 13:50 79 04/27/24 13:40 77 04/27/24 13:13 18 04/27/24 12:28 98.0 F 91 22 111/66 98 Intake and Output 04/27/24 04/27/24 04/27/24 06:59 14:59 22:59 Other: Weight 68.039 kg Results CBC & Chem 7: 04/28/24 06:00 04/28/24 06:00 Labs: Abnormal Lab Results - Last 24 Hours (Table) 04/27/24 04/27/24 04/27/24 Range/Units 13:03 13:03 13:03 WBC 11.7 H (3.8-10.6) k/uL RBC 3.26 L (3.80-5.40) m/uL Hgb 9.9 L (11.4-16.0) gm/dL Hct 30.3 L (34.0-46.0) % Neutrophils # 9.3 H (1.3-7.7) k/uL Lymphocytes # 0.8 L (1.0-4.8) k/uL Monocytes # 1.2 H (0-1.0) k/uL PT 18.3 H (10.0-12.5) sec INR 1.8 H (<1.2) APTT 43.4 H (22.0-30.0) sec Sodium 133 L (137-145) mmol/L Carbon Dioxide 17 L (22-30) mmol/L BUN 31 H (7-17) mg/dL Creatinine 1.40 H (0.52-1.04) mg/dL AST 47 H (14-36) U/L
[2024-04-27] MEDS: IPRATROPIUM-ALBUTEROL 3 ML NEB INHALATION SCH (19:59)
[2024-04-27] MEDS: PANTOPRAZOLE 40 MG TABLET PO SCH (20:55)
[2024-04-27] MEDS: METOPROLOL TARTRATE 12.5 MG TAB PO SCH (20:55)
[2024-04-27] MEDS: PREGABALIN 100 MG CAP PO SCH (20:55)
[2024-04-27] MEDS: ATORVASTATIN 40 MG TAB PO SCH (20:55)
[2024-04-27] MEDS: IPRATROPIUM-ALBUTEROL 3 ML NEB INHALATION PRN (22:11)
[2024-04-27] MEDS: ALPRAZolam 0.25 MG TAB PO STA (22:39)
[2024-04-27 22:46] LABS: ABG Base Excess -9.7 mmol/L; ABG HCO3 16 mmol/L (21-25); ABG Oxygen Saturation 91.9 % (94-97); ABG PCO2 34 mmHg (35-45); ABG PH 7.28 (7.35-7.45); ABG PO2 73 mmHg (83-108); ABG TCO2 17 mmol/L (19-24); Allen Test Performed? Yes
--- NOTE | 2024-04-27 23:36 | XR ---
EXAM: XR Chest, 1 View CLINICAL HISTORY: ITS.REASON XR Reason: Interval change TECHNIQUE: Frontal view of the chest. COMPARISON: 01/24/2023. FINDINGS: Heart is enlarged. Increased diffuse interstitial prominence suggesting pulmonary vascular congestion. Probable small left pleural effusion. No pneumothorax. Bones are unchanged. IMPRESSION: Cardiomegaly. CHF. Probable small left pleural effusion.
[2024-04-28] MEDS: FUROSEMIDE 10 MG/ML 10 ML VIAL IV STA (01:39)
--- NOTE | 2024-04-28 04:27 | P.EN ---
Informed by the RN that the patient is complaining of shortness of breath. Chest x-ray and ABGs obtained showing fluid overload with hypoxia. Patient was seen at the bedside and reported gradually worsening shortness of breath. She exhibited lower extremity edema on examination with bibasilar rales on auscultation of the lungs. Lasix 80 mg IV push once was ordered with cardiology previously consulted. Intake and output was also ordered. Continue with Lasix 40 mg IV every 12 hourly
[2024-04-28] MEDS ORDERED: FUROSEMIDE 20 MG TAB PO SCH (09:00)
[2024-04-28 09:20] LABS: HCT 34.2 % (37.2-46.3); HGB 10.7 g/dL (12.0-15.0); MCH 29.3 pg (27.0-32.0); MCHC 31.3 g/dL (32.0-37.0); MCV 93.7 FL (80.0-97.0); Mean Platelet Volume 10.8 FL (9.5-12.2); NRBC Per 100 WBC 0 X 10*3/uL (0.00-0.01); Platelet Count 241 X 10*3/uL (140-440); RBC 3.65 X 10*6/uL (4.10-5.20); RDW 15.7 % (11.5-14.5); WBC 10.21 X 10*3/uL (4.50-10.00)
[2024-04-28 09:31] LABS: ALT 38 U/L (8-44); AST 50 U/L (13-35); Albumin/Globulin Ratio 1.54 Ratio (1.60-3.17); Alkaline Phosphatase 139 U/L (41-126); BUN/Creat Ratio 20.71 Ratio (12.00-20.00); Calcium 8.4 mg/dL (8.7-10.3); Carbon Dioxide 18.7 mmol/L (21.6-31.8); Chloride 101 mmol/L (96-109); Globulin 2.6 g/dL (1.6-3.3); Glucose 145 mg/dL (70-110); Potassium 4.2 mmol/L (3.5-5.5); Sodium 138 mmol/L (135-145); Total Bilirubin 0.3 mg/dL (0.3-1.2); Total Protein 6.6 g/dL (6.2-8.2)
[2024-04-28] MEDS: FUROSEMIDE 10 MG/ML 4 ML VIAL IV SCH (10:04)
[2024-04-28] MEDS: CLOPIDOGREL 75 MG TAB PO SCH (10:05)
[2024-04-28] MEDS: SPIRONOLACTONE 25 MG TAB PO SCH (10:05)
[2024-04-28] MEDS: ISOSORBIDE MONONITRATE ER 30 MG TAB.ER.24H PO SCH (10:05)
[2024-04-28] MEDS: ASPIRIN 81 MG PO SCH (10:05)
[2024-04-28] MEDS: AMIODARONE 200 MG TAB PO SCH (10:05)
[2024-04-28] MEDS: DULoxetine HCL 60 MG CAPSULE.DR PO SCH (10:06)
[2024-04-28] MEDS: ALPRAZolam 0.5 MG TAB PO PRN (10:06)
--- NOTE | 2024-04-28 10:38 | XR ---
EXAM: XR chest 1V portable CLINICAL INDICATION:Female, 78 years old with history of pneumonia; [facility] COMPARISON: 04/27/2024 TECHNIQUE: Chest single view. FINDINGS: Heart appears mildly enlarged, likely the cause of vague opacity at the left lung base which is simil ar to prior. Similar mild pulmonary vascular congestion. The costophrenic angles are relatively sharp. No confluent airspace disease. No pneumothorax is evide nt. Lungs are otherwise stable with mild hyperinflation interstitial coarsening and pleural thickening wh ich can be seen with COPD. No acute osseous abnormality. ACDF hardware over the cervical spine. IMPRESSION: Mild cardiomegaly and mild pulmonary vascular congestion, similar to previous.
--- NOTE | 2024-04-28 12:33 | P.CNPUL ---
History of Present Illness Consult date: 04/28/24 Reason for consult: dyspnea History of present illness: This is a pleasant 78-year-old female patient who is currently hospitalized for worsening shortness of breath, cough, congestion, excessive sputum production, bronchospasm and wheezing. Note that her asthma was also admitted to the hospital for similar symptoms. She is known to have coronary artery disease. She is a bit complex coronary angioplasty and stenting and she suffers from c hronic atrial fibrillation she is back in anticoagulation with warfarin. She has also systolic heart failure with an ejection fraction of 30 to 35% and chronic stage IIIb kidney disease. Upon arrival to the emergency, the patient was quite short of breath. Likely just level was at 1.2. The viral screen came back negative. The chest x-ray was consistent with CHF and pulmonary edema. Overnight, the patient became more short of breath. The patient was given additional dose of Lasix and she is feeling better at this point in time. No nausea. No vomiting. No abdominal pain. No change in mental status. The white cell count is at 10.2, hemoglobin 10.7, serum bicarb is at 18 with a BUN o f 29 and a creatinine 1.4 and sodium is at 138. She is currently sitting up on the chair comfortably on 40s of oxygen by nasal cannula. Her last coronary intervention was in December 2023. At that time, the patient underwent stenting of the mid LAD and proximal LAD through the left radial artery approach. Her current INR is at 1.8. Review of Systems Constitutional: Reports fatigue, Reports lethargy Eyes: denies as per HPI, denies blurred vision, denies bulging eye, denies decreased vision, denies diplopia, denies discharge, denies dry eye, denies irritation, denies itching, denies pain, denies photophobia, denies loss of peripheral vision, denies loss of vision, denies tunnel vision/blind spots Ears: deny: decreased hearing, ear discharge, earache, tinnitus Ears, nose, mouth and throat: Reports as per HPI Breasts: absent: as per HPI, change in shape, gynecomastia, masses, nipple discharge, pain, skin changes, swelling Cardiovascular: Reports decreased exercise tolerance, Reports dyspnea on exertion, Reports irregular heart beat, Reports shortness of breath Respiratory: Reports cough, Reports dyspnea, Reports wheezing Gastrointestinal: Reports as per HPI Genitourinary: Reports as per HPI Menstruation: Reports as per HPI Musculoskeletal: Reports as per HPI Musculoskeletal: absent: ankle pain, ankle stiffness, ankle swelling, as per HPI, elbow pain, elbow stiffness, elbow swelling, foot pain, foot stiffness, foot swelling, hand pain, hand stiffness, hand swelling, hip pain, hip stiffness, hip swelling, knee pain, knee stiffness, knee swelling, shoulder pain, shoulder stiffness, shoulder swelling, wrist pain, wrist stiffness, wrist swelling Integumentary: Reports as per HPI Neurological: Reports as per HPI Psychiatric: Reports as per HPI Endocrine: Reports as per HPI Hematologic/Lymphatic: Reports as per HPI Allergic/Immunologic: Reports as per HPI Past Medical History Past Medical History: Atrial Flutter, Asthma, Cancer, COPD, CVA/TIA, GERD/Reflux, GI Bleed, Hyperlipidemia, Hypertension, Memory Impairment, Myocardial Infarction ([place]), Osteoarthritis (OA), Renal Disease, Rheumatoid Arthritis (RA) Additional Past Medical History / Comment(s): Chronic cough. Back pain, migraines. residual from stroke,Occasional slight difficulty with swallowing. Hx gastic ulcer, H-Pylori, diverticulitis, hx melanoma on face X2. Hx kidney stones, "kidney function low", raynauds disease. recent stress test at Dr Castorena's office pt had chest pain-transferred to hospital heart cath unable to place stent at that time per pt. Last Myocardial Infarction Date:: 2012 History of Any Multi-Drug Resistant Organisms: None Reported Past Surgical History: Back Surgery, Cholecystectomy, Heart Catheterization, Hysterectomy, Joint Replacement, Orthopedic Surgery Additional Past Surgical History / Comment(s): RODS & CAGES IN BACK, RIGHT HIP REPLACEMENT, PARTIAL THYROIDECTOMY, BILATERAL KNEE REPLACEMENTS, NECK SURGERY WITH LIDIA AND CAGES, MELANOMA REMOVED FROM FACE X4, REPAIR OF HEMATOMA/FEMORAL ARTERY AFTER HEART CATHETERIZATION,rt foot bone spur removed Past Anesthesia/Blood Transfusion Reactions: Previous Problems w/ Anesthesia, P ostoperative Nausea & Vomiting (PONV) Additional Past Anesthesia/Blood Transfusion Reaction / Comment(s): Hard to wake up. Past Psychological History: No Psychological Hx Reported Additional Psychological History / Comment(s): . Smoking Status: Never smoker Past Alcohol Use History: None Reported Past Drug Use History: None Reported - Past Family History Sister(s) Family Medical History: Cancer Brother(s) Family Medical History: Cancer Mother Family Medical History: Myocardial Infarction (AZ) Additional Family Medical History / Comment(s): Mother of a AZ at the age of 76yrs. Father History Unknown: Yes Family Medical History: Chest Pain / Angina Medications and Allergies Home Medications Medication Instructions Recorded Confirmed Type Pantoprazole Sodium [Protonix] 40 mg PO BID 05/14/14 04/27/24 History Cyanocobalamin (Vitamin B-12) 1,000 mcg PO DAILY 06/16/22 04/27/24 History [Vitamin B-12] Lysine 1,000 mg PO DAILY 08/03/22 04/27/24 History Warfarin Sodium 4 mg PO MOFR@2100 12/07/22 04/27/24 History Amiodarone [Cordarone] 200 mg PO DAILY 01/24/23 04/27/24 History Spironolactone [Aldactone] 12.5 mg PO DAILY 01/24/23 04/27/24 History Warfarin Sodium 2 mg PO SUTUWETHSA@2100 01/25/23 04/27/24 History DULoxetine HCL [Cymbalta] 60 mg PO DAILY 07/27/23 04/27/24 History Ipratropium Nebulized [Atrovent 0.5 mg INHALATION RT-BID 07/27/23 04/27/24 History Nebulized 0.2 MG/ML] lisinopriL [Zestril] 2.5 mg PO DAILY 07/27/23 04/27/24 History Pregabalin [Lyrica] 100 mg PO BID #6 cap 08/04/23 04/27/24 Rx Acetaminophen [Tylenol Extra 1,000 mg PO Q6H PRN 12/22/23 04/27/24 History Strength] Albuterol Inhaler [Ventolin Hfa 2 puff INHALATION RT-Q6H PRN 12/22/23 04/27/24 History Inhaler] Cholecalciferol (Vitamin D3) 50 mcg PO DAILY 12/22/23 04/27/24 History [Vitamin D3 (50 Mcg = 2000 Iu)] Furosemide [Lasix] 20 mg PO DAILY 12/22/23 04/27/24 History Glucosam/Chond/Hyalu/Cf Borate 1 tab PO DAILY 12/22/23 04/27/24 History [Move Free Joint Health Tablet] Vit C/E/Zn/Coppr/Lutein/Zeaxan 1 cap PO DAILY 12/22/23 04/27/24 History [Preservision Areds 2 Softgel] Atorvastatin [Lipitor] 40 mg PO HS #90 tab 12/25/23 04/27/24 Rx Aspirin 81 mg PO DAILY #7 tab 01/06/24 04/27/24 Rx Clopidogrel [Plavix] 75 mg PO DAILY #90 tab 01/06/24 04/27/24 Rx Isosorbide Mononitrate ER [Imdur] 30 mg PO DAILY #90 tab 01/06/24 04/27/24 Rx Metoprolol Tartrate [Lopressor] 12.5 mg PO BID #60 tab 01/06/24 04/27/24 Rx estradioL 2 mg PO DAILY 04/27/24 04/27/24 History Allergies Allergy/AdvReac Type Severity Reaction Status Date / Time cephalexin monohydrate Allergy Rash/Hives Verified 04/27/24 16:40 [From Keflex] diphenhydramine HCl Allergy SWELLING Verified 04/27/24 16:40 [From Benadryl] OF TONGUE, SOB enoxaparin [From Lovenox] Allergy Rash/Hives Verified 04/27/24 16:40 Penicillins Allergy SWELLING, Verified 04/27/24 16:40 HIVES sulfamethoxazole Allergy Anaphylaxis, Verified 04/27/24 16:40 [From Bactrim] Swelling trimethoprim [From Bactrim] Allergy Anaphylaxis, Verified 04/27/24 16:40 Swelling aspirin AdvReac EXCESS Verified 04/27/24 16:40 BLEEDING garlic AdvReac Nausea Verified 04/27/24 16:40 milk AdvReac Abdominal Verified 04/27/24 16:40 Pain morphine AdvReac Vomiting Verified 04/27/24 16:40 milk chocolate AdvReac Nausea Uncoded 04/27/24 12:31 Physical Exam Vitals: Vital Signs Temp Pulse Pulse Pulse Resp BP BP 04/28/24 08:13 100 04/28/24 08:00 101 H 04/28/24 06:49 97.5 F L 84 20 111/79 04/28/24 02:54 04/28/24 02:48 92 22 04/28/24 02:37 84 22 04/28/24 02:00 98 113/65 04/27/24 22:22 113 H 04/27/24 22:11 98 04/27/24 20:20 118 H 04/27/24 20:14 94 04/27/24 20:01 101 H 04/27/24 19:40 98.2 F 116 H 19 142/57 04/27/24 19:15 101 H 23 04/27/24 16:31 77 18 120/86 04/27/24 15:42 83 04/27/24 15:33 80 04/27/24 14:00 84 16 139/111 04/27/24 13:50 79 04/27/24 13:40 77 04/27/24 13:13 18 04/27/24 12:28 98.0 F 91 22 111/66 Pulse Ox 04/28/24 08:13 04/28/24 08:00 100 04/28/24 06:49 100 04/28/24 02:54 94 L 04/28/24 02:48 04/28/24 02:37 04/28/24 02:00 98 04/27/24 22:22 04/27/24 22:11 04/27/24 20:20 04/27/24 20:14 04/27/24 20:01 04/27/24 19:40 96 04/27/24 19:15 99 04/27/24 16:31 90 L 04/27/24 15:42 04/27/24 15:33 04/27/24 14:00 94 L 04/27/24 13:50 04/27/24 13:40 04/27/24 13:13 04/27/24 12:28 98 Intake and Output 04/27/24 04/28/24 04/28/24 22:59 06:59 14:59 Intake Total 500 Output Total 100 800 Balance -100 -300 Intake: Oral 500 Output: Urine 100 800 Other: Voiding Method External Catheter Weight 68.039 kg The patient is currently on 40s of oxygen by nasal cannula, having frequent coughing episodes. Head exam was generally normal. There was no scleral icterus or corneal arcus. Mucous membranes were moist. Neck was supple and without jugular venous distension, thyromegaly, or carotid bruits. Carotids were easily palpable bilaterally. There was no adenopathy. Lung sounds are diminished and the patient is With a recent clinically lung base bilaterally. Heart sounds are irregular consistent with atrial fibrillation. The rate is controlled for now. No significant murmurs appreciated. Abdominal exam revealed normal bowel sounds. The abdomen was soft, non-tender, and without masses, organomegaly, or appreciable enlargement of the abdominal aorta. Examination of the extremities revealed easily palpable radial, femoral and pedal pulses. There was no cyanosis, clubbing or edema. Examination of the skin revealed no evidence of significant rashes, suspicious appearing nevi or other concerning lesions. Neurologically, the patient is awake and alert and the patient does not have any focal neurological deficit. Cranial nerves are essentially intact. Results - Laboratory Findings CBC and BMP: 04/28/24 06:00 04/28/24 06:00 ABG ABG pH 7.28 (7.35-7.45) L 04/27/24 22:37 ABG pCO2 34 mmHg (35-45) L 04/27/24 22:37 ABG pO2 73 mmHg (83-108) L 04/27/24 22:37 ABG O2 Saturation 91.9 % (94-97) L 04/27/24 22:37 PT/INR, D-dimer PT 18.3 sec (10.0-12.5) H 04/27/24 13:03 INR 1.8 (<1.2) H 04/27/24 13:03 D-Dimer 0.29 mg/L FEU (<0.60) 04/27/24 13:03 Abnormal lab findings: Abnormal Labs 04/27/24 04/27/24 04/27/24 13:03 13:03 13:03 WBC 11.7 H RBC 3.26 L Hgb 9.9 L Hct 30.3 L MCHC RDW Neutrophils # 9.3 H Lymphocytes # 0.8 L Monocytes # 1.2 H PT 18.3 H INR 1.8 H APTT 43.4 H ABG pH ABG pCO2 ABG pO2 ABG HCO3 ABG Total CO2 ABG O2 Saturation Sodium 133 L Carbon Dioxide 17 L Anion Gap BUN 31 H Creatinine 1.40 H Est GFR (CKD-EPI) BUN/Creatinine Ratio Glucose Calcium AST 47 H Alkaline Phosphatase Albumin/Globulin Ratio 04/27/24 04/28/24 04/28/24 22:37 06:00 06:00 WBC 10.21 H RBC 3.65 L Hgb 10.7 L Hct 34.2 L MCHC 31.3 L RDW 15.7 H Neutrophils # Lymphocytes # Monocytes # PT INR APTT ABG pH 7.28 L ABG pCO2 34 L ABG pO2 73 L ABG HCO3 16 L ABG Total CO2 17 L ABG O2 Saturation 91.9 L Sodium Carbon Dioxide 18.7 L Anion Gap 18.30 H BUN 29.0 H Creatinine Est GFR (CKD-EPI) 39 L BUN/Creatinine Ratio 20.71 H Glucose 145 H Calcium 8.4 L AST 50 H Alkaline Phosphatase 139 H Albumin/Globulin Ratio 1.54 L - Diagnostic Findings Chest x-ray: image reviewed Assessment and Plan Plan: Assessment Acute exacerbation of COPD with symptoms of bronchitis. No clear indication for pneumonia Acute decompensated heart failure secondary to above. Chest x-ray is consistent with CHF and pulmonary edema and the patient is currently being diuresed with IV Lasix. Acute hypoxic respiratory failure the patient is currently on 40s of O2 nasal cannula Chronic atrial fibrillation Chronic systolic heart failure with an ejection fraction of 30 to 35% Coronary artery disease with recent coronary intervention and stenting of the LAD x 2 done in December 2023 Chronic stage IIIb kidney disease Anemia of chronic disease Hypertension Hyperlipidemia Osteoarthritis Rheumatoid arthritis Migraines Previous history of CVA Previous history of melanoma of the face resected Previous history of diverticulosis Plan Titrate oxygen flow to maintain saturation above 90%. Currently on 4 L. Obtain sputum Gram stain and culture. Continue bronchodilators with DuoNeb updrafts IV Solu-Medrol 60 mg every 6 hours IV Levaquin IV Lasix 40 mg every 12 hours Continue Aldactone Continue aspirin and Plavix Coumadin to be dosed by pharmacy Will continue to follow
--- NOTE | 2024-04-28 16:28 | P.CRDCN ---
History of Present Illness Consult date: 04/28/24 History of present illness: HISTORY OF PRESENTING ILLNESS 78-year-old female known to Dr. Madison. In December 2023 she underwent PCI of LAD by Dr. Madison. Other than that she has past medical history of nonischemic cardiomyopathy, permanent atrial fibrillation, mitral regurgitation with pulmonary hypertension and tricuspid regurgitation. She also has history of hypertension and dyslipidemia with CKD and chronic anemia and COPD. Presented to the hospital because of progressive worsening shortness of breath, chest heaviness symptoms. The symptoms have been gradually progressive getting worse. Admission CXR shows mild pulmonary congestion. No obvious consolidation. Admission ECG shows A-fib with heart rate 89 bpm, left bundle branch block. Left bundle branch block is old for her. Lab shows hemoglobin 9.9, WBC 9.7, sodium 133, potassium 4.1, BUN 31, creatinine 1.4, troponin was negative, BNP 2900. Previously she has had higher BMPs Home medications are aspirin 81 mg, Plavix 75 mg, Imdur 30 mg, metoprolol 12.5 mg twice daily, Aldactone 12.5 mg daily, warfarin, lisinopril 2.5, atorvastatin 40, amiodarone 200 mg daily, Lasix 20 mg daily. REVIEW OF SYSTEMS 14 point review of system is negative except what is mentioned above in HPI. PHYSICAL EXAMINATION Vital signs reviewed. Head: Normocephalic. Eyes: Sclerae nonicteric. Neck: Brisk carotid upstroke, no jugular venous distention. Lungs: On nasal cannula 3 L poor respiratory effort, mild crackles audible. Heart: Irregularly irregular pulse, systolic murmur Abdomen: Soft nontender, positive bowel sounds. Extremities: No edema, intact distal pulses. Neuro: Alert, oritented, no focal deficits. Detailed neuro exam was not performed. ASSESSMENT Acute on chronic hypoxic hypercapnic respiratory failure Mild HFrEF exacerbation Nonischemic cardiomyopathy, EF 30 to 35%, based off echo in November 2022 Persistent atrial fibrillation, currently rate controlled A-fib Chronic left bundle branch block CAD status post PCI to proximal LAD December 2023 COPD CKD Anemia Echo November 2022, EF 30 to 35%, inferior wall hypokinesia PLAN Clinically patient does not appear significantly volume overloaded. Her initial troponin was negative. BNP was elevated but patient has had high BNP's in the past. Renal function is at baseline. ABG showed respiratory acidosis with hypoxia Trend troponin x 2 Continue aspirin, Plavix, atorvastatin 40 mg, warfarin. INR goal 2-3 Continue lisinopril 2.5, Aldactone 12.5, metoprolol 12.5 twice daily, amiodarone 200 mg daily, Imdur 30 Continue IV Lasix 40 mg twice daily today. Transition to p.o. Bumex 1 mg p.o. daily from tomorrow a.m. Start Farxiga 10 mg daily prior to d/c Diomedes Jeter MD, [facility], [facility] Thank you for allowing [facility] to participate in this patient's care. Feel free to reach out in case of any followup questions. Past Medical History Past Medical History: Atrial Flutter, Asthma, Cancer, COPD, CVA/TIA, GERD/Reflux, GI Bleed, Hyperlipidemia, Hypertension, Memory Impairment, Myocardial Infarction (ME), Osteoarthritis (OA), Renal Disease, Rheumatoid Arthritis (RA) Additional Past Medical History / Comment(s): Chronic cough. Back pain, migrain es. residual from stroke,Occasional slight difficulty with swallowing. Hx gastic ulcer, H-Pylori, diverticulitis, hx melanoma on face X2. Hx kidney stones, "kidney function low", raynauds disease. recent stress test at Dr Castorena's office pt had chest pain-transferred to hospital heart cath unable to place stent at that time per pt. Last Myocardial Infarction Date:: 2012 History of Any Multi-Drug Resistant Organisms: None Reported Past Surgical History: Back Surgery, Cholecystectomy, Heart Catheterization, Hysterectomy, Joint Replacement, Orthopedic Surgery Additional Past Surgical History / Comment(s): RODS & CAGES IN BACK, RIGHT HIP REPLACEMENT, PARTIAL THYROIDECTOMY, BILATERAL KNEE REPLACEMENTS, NECK SURGERY WITH LIDIA AND CAGES, MELANOMA REMOVED FROM FACE X4, REPAIR OF HEMATOMA/FEMORAL ARTERY AFTER HEART CATHETERIZATION,rt foot bone spur removed Past Anesthesia/Blood Transfusion Reactions: Previous Problems w/ Anesthesia, Postoperative Nausea & Vomiting (PONV) Additional Past Anesthesia/Blood Transfusion Reaction / Comment(s): Hard to wake up. Past Psychological History: No Psychological Hx Reported Additional Psychological History / Comment(s): . Smoking Status: Never smoker Past Alcohol Use History: None Reported Past Drug Use History: None Reported - Past Family History Sister(s) Family Medical History: Cancer Brother(s) Family Medical History: Cancer Mother Family Medical History: Myocardial Infarction (ME) Additional Family Medical History / Comment(s): Mother of a ME at the age of 76yrs. Father History Unknown: Yes Family Medical History: Chest Pain / Angina Medications and Allergies Home Medications Medication Instructions Recorded Confirmed Type Pantoprazole Sodium [Protonix] 40 mg PO BID 05/14/14 04/27/24 History Cyanocobalamin (Vitamin B-12) 1,000 mcg PO DAILY 06/16/22 04/27/24 History [Vitamin B-12] Lysine 1,000 mg PO DAILY 08/03/22 04/27/24 History Warfarin Sodium 4 mg PO MOFR@2100 12/07/22 04/27/24 History Amiodarone [Cordarone] 200 mg PO DAILY 01/24/23 04/27/24 History Spironolactone [Aldactone] 12.5 mg PO DAILY 01/24/23 04/27/24 History Warfarin Sodium 2 mg PO SUTUWETHSA@2100 01/25/23 04/27/24 History DULoxetine HCL [Cymbalta] 60 mg PO DAILY 07/27/23 04/27/24 History Ipratropium Nebulized [Atrovent 0.5 mg INHALATION RT-BID 07/27/23 04/27/24 History Nebulized 0.2 MG/ML] lisinopriL [Zestril] 2.5 mg PO DAILY 07/27/23 04/27/24 History Pregabalin [Lyrica] 100 mg PO BID #6 cap 08/04/23 04/27/24 Rx Acetaminophen [Tylenol Extra 1,000 mg PO Q6H PRN 12/22/23 04/27/24 History Strength] Albuterol Inhaler [Ventolin Hfa 2 puff INHALATION RT-Q6H PRN 12/22/23 04/27/24 History Inhaler] Cholecalciferol (Vitamin D3) 50 mcg PO DAILY 12/22/23 04/27/24 History [Vitamin D3 (50 Mcg = 2000 Iu)] Furosemide [Lasix] 20 mg PO DAILY 12/22/23 04/27/24 History Glucosam/Chond/Hyalu/Cf Borate 1 tab PO DAILY 12/22/23 04/27/24 History [Move Free Joint Health Tablet] Vit C/E/Zn/Coppr/Lutein/Zeaxan 1 cap PO DAILY 12/22/23 04/27/24 History [Preservision Areds 2 Softgel] Atorvastatin [Lipitor] 40 mg PO HS #90 tab 12/25/23 04/27/24 Rx Aspirin 81 mg PO DAILY #7 tab 01/06/24 04/27/24 Rx Clopidogrel [Plavix] 75 mg PO DAILY #90 tab 01/06/24 04/27/24 Rx Isosorbide Mononitrate ER [Imdur] 30 mg PO DAILY #90 tab 01/06/24 04/27/24 Rx Metoprolol Tartrate [Lopressor] 12.5 mg PO BID #60 tab 01/06/24 04/27/24 Rx estradioL 2 mg PO DAILY 04/27/24 04/27/24 History Allergies Allergy/AdvReac Type Severity Reaction Status Date / Time cephalexin monohydrate Allergy Rash/Hives Verified 04/27/24 16:40 [From Keflex] diphenhydramine HCl Allergy SWELLING Verified 04/27/24 16:40 [From Benadryl] OF TONGUE, SOB enoxaparin [From Lovenox] Allergy Rash/Hives Verified 04/27/24 16:40 Penicillins Allergy SWELLING, Verified 04/27/24 16:40 HIVES sulfamethoxazole Allergy Anaphylaxis, Verified 04/27/24 16:40 [From Bactrim] Swelling trimethoprim [From Bactrim] Allergy Anaphylaxis, Verified 04/27/24 16:40 Swelling aspirin AdvReac EXCESS Verified 04/27/24 16:40 BLEEDING garlic AdvReac Nausea Verified 04/27/24 16:40 milk AdvReac Abdominal Verified 04/27/24 16:40 Pain morphine AdvReac Vomiting Verified 04/27/24 16:40 milk chocolate AdvReac Nausea Uncoded 04/27/24 12:31 Physical Exam Vitals: Vital Signs Temp Pulse Pulse Pulse Resp BP BP 04/28/24 15:46 80 04/28/24 15:39 70 04/28/24 14:24 97.5 F L 93 18 95/58 04/28/24 11:34 96 04/28/24 11:27 94 04/28/24 08:13 100 04/28/24 08:00 101 H 98 84 20 04/28/24 06:49 97.5 F L 84 20 111/79 04/28/24 02:54 04/28/24 02:48 92 22 04/28/24 02:37 84 22 04/28/24 02:00 98 113/65 04/27/24 22:22 113 H 04/27/24 22:11 98 04/27/24 20:20 118 H 04/27/24 20:14 94 04/27/24 20:01 101 H 04/27/24 19:40 98.2 F 116 H 19 142/57 04/27/24 19:15 101 H 23 04/27/24 16:31 77 18 120/86 Pulse Ox 04/28/24 15:46 04/28/24 15:39 04/28/24 14:24 100 04/28/24 11:34 04/28/24 11:27 04/28/24 08:13 04/28/24 08:00 100 04/28/24 06:49 100 04/28/24 02:54 94 L 04/28/24 02:48 04/28/24 02:37 04/28/24 02:00 98 04/27/24 22:22 04/27/24 22:11 04/27/24 20:20 04/27/24 20:14 04/27/24 20:01 04/27/24 19:40 96 04/27/24 19:15 99 04/27/24 16:31 90 L Intake and Output 04/28/24 04/28/24 04/28/24 06:59 14:59 22:59 Intake Total 500 Output Total 800 Balance -300 Intake: Oral 500 Output: Urine 800 Other: Voiding Method External Catheter Weight 68.039 kg Results 04/28/24 06:00 04/28/24 06:00 Cardiac Enzymes 04/28/24 Range/Units 06:00 AST 50 H (13-35) U/L CBC 04/28/24 Range/Units 06:00 WBC 10.21 H (4.50-10.00) X 10*3/uL RBC 3.65 L (4.10-5.20) X 10*6/uL Hgb 10.7 L (12.0-15.0) g/dL Hct 34.2 L (37.2-46.3) % Plt Count 241 (140-440) X 10*3/uL Comprehensive Metabolic Panel 04/28/24 Range/Units 06:00 Sodium 138 (135-145) mmol/L Potassium 4.2 (3.5-5.5) mmol/L Chloride 101 (96-109) mmol/L Carbon Dioxide 18.7 L (21.6-31.8) mmol/L BUN 29.0 H (9.0-27.0) mg/dL Creatinine 1.4 (0.6-1.5) mg/dL Glucose 145 H (70-110) mg/dL Calcium 8.4 L (8.7-10.3) mg/dL AST 50 H (13-35) U/L ALT 38 (8-44) U/L Alkaline Phosphatase 139 H (41-126) U/L Total Protein 6.6 (6.2-8.2) g/dL Albumin 4.0 (3.8-4.9) g/dL Current Medications Generic Name Dose Route Start Last Admin Trade Name Freq PRN Reason Stop Dose Admin Albuterol Sulfate 5 mg 04/27/24 16:07 Albuterol Nebulized 2.5 Mg/3 Ml INHALATION RT-Q4H PRN Shortness Of Breath Or Wheezing Albuterol/Ipratropium 3 ml 04/27/24 16:40 04/28/24 02:37 Ipratropium-Albuterol 3 Ml Neb INHALATION 3 ml RT-Q2H PRN Administration Shortness Of Breath Or Wheezing Albuterol/Ipratropium 3 ml 04/27/24 20:00 04/28/24 15:36 Ipratropium-Albuterol 3 Ml Neb INHALATION 3 ml RT-QID ASHER Administration Alprazolam 0.5 mg 04/28/24 08:07 04/28/24 10:06 Alprazolam 0.5 Mg Tab PO 0.5 mg BID PRN Administration Anxiety Amiodarone HCl 200 mg 04/28/24 09:00 04/28/24 10:05 Amiodarone 200 Mg Tab PO 200 mg DAILY ASHER Administration Aspirin 81 mg 04/28/24 09:00 04/28/24 10:05 Aspirin 81 Mg PO 81 mg DAILY ASHER Administration Atorvastatin Calcium 40 mg 04/27/24 21:00 04/27/24 20:55 Atorvastatin 40 Mg Tab PO 40 mg HS ASHER Administration Clopidogrel Bisulfate 75 mg 04/28/24 09:00 04/28/24 10:05 Clopidogrel 75 Mg Tab PO 75 mg DAILY ASHER Administration Duloxetine HCl 60 mg 04/28/24 09:00 04/28/24 10:06 Duloxetine Hcl 60 Mg Capsule.Dr PO 60 mg DAILY ASHER Administration Furosemide 40 mg 04/28/24 09:00 04/28/24 10:04 Furosemide 10 Mg/Ml 4 Ml Vial IV 40 mg Q12HR ASHER Administration Levofloxacin 750 mg/ IV 150 mls @ 100 mls/hr 04/29/24 16:00 Solution IVPB Q48H [facility] Protocol Isosorbide Mononitrate 30 mg 04/28/24 09:00 04/28/24 10:05 Isosorbide Mononitrate Er 30 Mg Tab.Er.24h PO 30 mg DAILY ASHER Administration Lisinopril 2.5 mg 04/28/24 09:00 04/28/24 10:05 Lisinopril 2.5 Mg Tab PO 2.5 mg DAILY ASHER Administration Methylprednisolone Sodium Succinate 60 mg 04/27/24 18:00 04/28/24 14:49 Methylprednisolone Sod Succi 125 Mg/2 Ml Vial IV 60 mg Q6HR ASHER Administration Metoprolol Tartrate 12.5 mg 04/27/24 21:00 04/28/24 10:06 Metoprolol Tartrate 12.5 Mg Tab PO 12.5 mg BID ASHER Administration Miscellaneous Information 1 each 04/27/24 15:52 Pneumonia Protocol Utilized 1 Each Misc PO ONCE PRN Per Protocol Miscellaneous Information 1 each 04/27/24 16:39 Warfarin Per Pharmacy MISCELLANE DIRECTED PRN Per Protocol Protocol Pantoprazole Sodium 40 mg 04/27/24 21:00 04/28/24 10:05 Pantoprazole 40 Mg Tablet PO 40 mg BID ASHER Administration Pregabalin 100 mg 04/27/24 21:00 04/28/24 10:06 Pregabalin 100 Mg Cap PO 100 mg BID ASHER Administration Spironolactone 12.5 mg 04/28/24 09:00 04/28/24 10:05 Spironolactone 25 Mg Tab PO 12.5 mg DAILY ASHER Administration Intake and Output 04/28/24 04/28/24 04/28/24 06:59 14:59 22:59 Intake Total 500 Output Total 800 Balance -300 Intake: Oral 500 Output: Urine 800 Other: Voiding Method External Catheter Weight 68.039 kg 04/28/24 06:00 04/28/24 06:00
--- NOTE | 2024-04-28 17:04 | P.PN ---
Subjective Progress Note Date: 04/28/24 Hospital Course: Patient is a very pleasant 78-year-old female with a past medical history of CAD status post recent stenting (states last stent placed 6 weeks ago), atrial fibrillation/flutter on anticoagulation with Coumadin, chronic systolic heart failure with previously known EF of 30 to 35%, hypertension, COPD not home oxygen dependent, and stage IIIb chronic kidney disease. She presented to the hospital with a chief complaint of chest pain/congestion and progressively worsening shortness of breath x 1 week. Upon arrival to our facility, patient underwent evaluation in the emergency department. Vital signs upon arrival show blood pressure 111/66, heart rate 91, respiratory rate 22, temp 98.0 F, and SpO2 of 98% on room air. EKG was completed showing atrial fibrillation with a controlled ventricular rate at 89 bpm with a left bundle branch block (LBBB is unchanged when compared to previous EKGs completed 01/05/2024). Chest x-ray completed showing cardiomegaly and emphysematous changes. Labs were completed and reviewed. CBC showing leukocytosis with WBC count of 11.7, normocytic anemia with hemoglobin of 9.9. Coagulation profile showing elevated PT of 18.3, INR of 1.8, and PTT of 43.4. D-dimer was negative at 0.29. BMP showing hypo natremia with sodium of 133, hypocarbia with bicarb of 17, and renal function consistent with known stage III CKD with BUN of 31, creatinine 1.40, and GFR of 36. Lactic acid 1.2. Liver profile showing elevated AST of 47 otherwise normal findings. Troponin was negative at less than 0.012. proBNP 2990. Influenza A, influenza B, RSV, and COVID PCR were negative. Patient admitted under our servi javier with consultation to cardiology and pulmonology. Physical exam: Vital signs reviewed and stable. General: Nontoxic, no distress and appears stated age. Derm: Skin warm and dry, normal coloration for ethnicity. Head: Atraumatic, normocephalic and symmetric. Eyes: EOMs intact, no lid lag, and anicteric sclera Mouth: no lip lesions, mucus membranes moist Cardiovascular: Irregularly irregular, systolic murmur, positive posterior tibial pulses bilaterally, and cap refill < 2 seconds. Lungs: Respirations even, regular, and unlabored on room air. Lungs diminished with diffuse expiratory wheezes throughout and coarse cough noted. Abdominal: soft, nontender to palpation, no guarding, no appreciable organomegaly Ext: ROM intact. No gross muscle atrophy, no edema, no contractures Neuro: Speech clear, face symmetrical and CN II-XII grossly intact with no noted focal neuro deficits Psych: Alert and oriented to person, place, time, and situation. Appropriate and pleasant affect. Assessment and Plan of Care: Acute respiratory failure with hypoxia COPD exacerbation Acute on chronic systolic heart failure Chest pain, acute coronary event ruled out Subtherapeutic INR History of CAD status post stenting Chronic atrial fibrillation -Consult to Pulmonology, reviewed documentation in chart -Consult cardiology, reviewed documentation in chart -Continue Lasix 40 mg IVP every 12 hours -Oxygenation to be administered and titrated as needed to maintain SPO2 equal to or greater than 92% -Telemetry monitoring. -Monitor pulse-oximetry -Duonebs scheduled 4 times daily and as needed for SOB and/or wheezing -Incentive Spirometry -Steroids: Solu-Medrol 60 mg IVP every 6 hours. -Antibiotics: Levaquin 750 mg daily. -Continue cardiac medication regimen with aspirin 81 mg daily, amiodarone 200 mg daily, Plavix 75 mg daily, isosorbide mononitrate 30 mg daily, lisinopril 2.5 mg daily, metoprolol 12.5 mg twice daily, and Aldactone 12.5 mg daily. -INR subtherapeutic at 1.8, order placed for pharmacy to dose Coumadin if no improvement in INR tomorrow may consider bridging patient with heparin infusion or Lovenox. Stage IIIb chronic kidney disease Anemia of chronic disease -Hemoglobin at baseline. Will continue to monitor with repeat morning CBC to follow-up on hemoglobin levels and BMP to monitor renal function closely. Data and imaging reviewed: Morning labs reviewed. CBC showing leukocytosis with WBC count of 10.21 and normocytic anemia with hemoglobin of 10.7. BMP showing low bicarb of 18.7 and elevated anion gap of 18.30. Blood glucose 145. Liver profile showing elevated AST of 50 and alkaline phosphatase of 139. Vital signs reviewed. Blood pressure 111/79, heart rate 84, respiratory rate 20, temp 97.5 F, and SpO2 of 100% on 4 L. CODE STATUS: Full Code DVT prophylaxis: Coumadin Anticipated discharge date: Pending clinical course Anticipated discharge place: Home Patient was seen independently by Nurse Practitioner. This document was prepared using [employer] dictation software. Please allow for errors in warp splitter while rare they do occur. I reviewed the documentation as provided by the SHANTANU above, who is the original author of this note. I agree with the documented assessment and plan, with the following changes: none Objective - Vital Signs Vital signs: Vital Signs Temp 97.5 F L 04/28/24 06:49 Pulse 100 04/28/24 08:13 Resp 20 04/28/24 06:49 BP 111/79 04/28/24 06:49 Pulse Ox 100 04/28/24 08:00 FiO2 Intake & Output 04/27/24 04/28/24 04/28/24 18:59 06:59 18:59 Intake Total 500 Output Total 900 Balance -400 Weight 68.039 kg 68.039 kg Intake: Oral 500 Output: Urine 900 Other: Voiding Method External Catheter - Labs CBC & Chem 7: 04/29/24 04:26 04/29/24 04:26 Labs: Abnormal Lab Results - Last 24 Hours (Table) 04/27/24 04/27/24 04/27/24 Range/Units 13:03 13:03 13:03 WBC 11.7 H (3.8-10.6) k/uL RBC 3.26 L (3.80-5.40) m/uL Hgb 9.9 L (11.4-16.0) gm/dL Hct 30.3 L (34.0-46.0) % Neutrophils # 9.3 H (1.3-7.7) k/uL Lymphocytes # 0.8 L (1.0-4.8) k/uL Monocytes # 1.2 H (0-1.0) k/uL PT 18.3 H (10.0-12.5) sec INR 1.8 H (<1.2) APTT 43.4 H (22.0-30.0) sec ABG pH (7.35-7.45) ABG pCO2 (35-45) mmHg ABG pO2 (83-108) mmHg ABG HCO3 (21-25) mmol/L ABG Total CO2 (19-24) mmol/L ABG O2 Saturation (94-97) % Sodium 133 L (137-145) mmol/L Carbon Dioxide 17 L (22-30) mmol/L BUN 31 H (7-17) mg/dL Creatinine 1.40 H (0.52-1.04) mg/dL AST 47 H (14-36) U/L 04/27/24 Range/Units 22:37 WBC (3.8-10.6) k/uL RBC (3.80-5.40) m/uL Hgb (11.4-16.0) gm/dL Hct (34.0-46.0) % Neutrophils # (1.3-7.7) k/uL Lymphocytes # (1.0-4.8) k/uL Monocytes # (0-1.0) k/uL PT (10.0-12.5) sec INR (<1.2) APTT (22.0-30.0) sec ABG pH 7.28 L (7.35-7.45) ABG pCO2 34 L (35-45) mmHg ABG pO2 73 L (83-108) mmHg ABG HCO3 16 L (21-25) mmol/L ABG Total CO2 17 L (19-24) mmol/L ABG O2 Saturation 91.9 L (94-97) % Sodium (137-145) mmol/L Carbon Dioxide (22-30) mmol/L BUN (7-17) mg/dL Creatinine (0.52-1.04) mg/dL AST (14-36) U/L Microbiology - Last 24 Hours (Table) 04/27/24 16:38 Gram Stain - Preliminary Sputum
[2024-04-28] MEDS: ACETAMINOPHEN TAB 325 MG TAB PO PRN (20:37)
[2024-04-29] MEDS: guaiFENesin-DM 100-10MG/5ML 10 ML CUP PO PRN (01:00)
[2024-04-29 09:56] LABS: HCT 28.7 % (37.2-46.3); HGB 9.4 g/dL (12.0-15.0); MCH 29.2 pg (27.0-32.0); MCHC 32.8 g/dL (32.0-37.0); MCV 89.1 FL (80.0-97.0); Mean Platelet Volume 10.4 FL (9.5-12.2); NRBC Per 100 WBC 0 X 10*3/uL (0.00-0.01); Platelet Count 255 X 10*3/uL (140-440); RBC 3.22 X 10*6/uL (4.10-5.20); RDW 15.4 % (11.5-14.5); WBC 11.34 X 10*3/uL (4.50-10.00)
[2024-04-29 12:31] LABS: INR 2.31 sec (0.93-1.11); Prothrombin Time 23.6 sec (9.9-11.9)
--- NOTE | 2024-04-29 12:44 | P.PN ---
Subjective Progress Note Date: 04/29/24 This is a pleasant 78-year-old female patient who is currently hospitalized for worsening shortness of breath, cough, congestion, excessive sputum production, bronchospasm and wheezing. Note that her asthma was also admitted to the hospital for similar symptoms. She is known to have coronary artery disease. She is a bit complex coronary angioplasty and stenting and she suffers from chronic atrial fibrillation she is back in anticoagulation with warfarin. She has also systolic heart failure with an ejection fraction of 30 to 35% and chronic stage IIIb kidney disease. Upon arrival to the emergency, the patient was quite short of breath. Likely just level was at 1.2. The viral screen came back negative. The chest x-ray was consistent with CHF and pulmonary edema. Overnight, the patient became more short of breath. The patient was given additional dose of Lasix and she is feeling better at this point in time. No nausea. No vomiting. No abdominal pain. No change in mental status. The white cell count is at 10.2, hemoglobin 10.7, serum bicarb is at 18 with a BUN of 29 and a creatinine 1.4 and sodium is at 138. She is currently sitting up on the chair comfortably on 40s of oxygen by nasal cannula. Her last coronary intervention was in December 2023. At that time, the patient underwent stenting of the mid LAD and proximal LAD through the left radial artery approach. Her current INR is at 1.8. 04/29/2024, the patient is being seen for a follow-up. Still bronchospastic. Still having coughing episodes. Still congested and wheezy. The patient is on a combination bronchodilators. The patient is also on steroids. The patient is also on diuretics and the patient is to be Lasix 40 mg IV every 12 hours. Negative fluid balance. She remains on oxygen at 3 L/min nasal cannula. Sputum culture still pending. Blood cultures are still negative. The white cell 11.3 with a hemoglobin of 0.4, INR is at 2.3 and the patient remains on warfarin. He has 29 with a creatinine of 1.4 from yesterday. Awaiting labs from today in terms of electrolytes and renal function. No interval worsening shortness of breath. Some improvement since yesterday. Objective - Vital Signs Vital signs: Vital Signs Temp 97.6 F 04/29/24 07:35 Pulse 92 04/29/24 08:10 Resp 17 04/29/24 08:00 BP 111/69 04/29/24 07:35 Pulse Ox 98 04/29/24 07:59 FiO2 Intake & Output 04/28/24 04/29/24 04/29/24 18:59 06:59 18:59 Output Total 450 250 Balance -450 -250 Weight 72.3 kg 76.3 kg Output: Urine 450 250 Other: Voiding Method External Catheter External Catheter # Voids 5 # Bowel Movements 1 - Exam The patient is currently on 40s of oxygen by nasal cannula, having frequent coughing episodes. Head exam was generally normal. There was no scleral icterus or corneal arcus. Mucous membranes were moist. Neck was supple and without jugular venous distension, thyromegaly, or carotid bruits. Carotids were easily palpable bilaterally. There was no adenopathy. Lung sounds are diminished and the patient is With a recent clinically lung base bilaterally. Heart sounds are irregular consistent with atrial fibrillation. The rate is controlled for now. No significant murmurs appreciated. Abdominal exam revealed normal bowel sounds. The abdomen was soft, non-tender, and without masses, organomegaly, or appreciable enlargement of the abdominal aorta. Examination of the extremities revealed easily palpable radial, femoral and pedal pulses. There was no cyanosis, clubbing or edema. Examination of the skin revealed no evidence of significant rashes, suspicious appearing nevi or other concerning lesions. Neurologically, the patient is awake and alert and the patient does not have any focal neurological deficit. Cranial nerves are essentially intact. - Labs CBC & Chem 7: 04/29/24 04:26 04/28/24 06:00 Labs: Abnormal Lab Results - Last 24 Hours (Table) 04/29/24 Range/Units 04:26 WBC 11.34 H (4.50-10.00) X 10*3/uL RBC 3.22 L (4.10-5.20) X 10*6/uL Hgb 9.4 L (12.0-15.0) g/dL Hct 28.7 L (37.2-46.3) % RDW 15.4 H (11.5-14.5) % Microbiology - Last 24 Hours (Table) 04/27/24 16:38 Blood Culture - Preliminary Blood 04/27/24 16:30 Blood Culture - Preliminary Blood 04/27/24 16:38 Gram Stain - Preliminary Sputum Assessment and Plan Plan: Assessment Acute exacerbation of COPD with symptoms of bronchitis. No clear indication for pneumonia Acute decompensated heart failure secondary to above. Chest x-ray is consistent with CHF and pulmonary edema and the patient is currently being diuresed with IV Lasix. Acute hypoxic respiratory failure the patient is currently on 40s of O2 nasal cannula Chronic atrial fibrillation Chronic systolic heart failure with an ejection fraction of 30 to 35% Coronary artery disease with recent coronary intervention and stenting of the LAD x 2 done in December 2023 Chronic stage IIIb kidney disease Anemia of chronic disease Hypertension Hyperlipidemia Osteoarthritis Rheumatoid arthritis Migraines Previous history of CVA Previous history of melanoma of the face resected Previous history of diverticulosis Plan Likely some improvement since yesterday. All of the cultures are negative thus far. Will continue same management. Titrate oxygen flow to maintain saturation above 90%. Currently on 4 L. Continue bronchodilators with DuoNeb updrafts IV Solu-Medrol 60 mg every 6 hours IV Levaquin IV Lasix 40 mg every 12 hours Continue Aldactone Continue aspirin and Plavix Coumadin to be dosed by pharmacy Will continue to follow
[2024-04-29 12:57] LABS: ALT 35 U/L (8-44); AST 45 U/L (13-35); Albumin 3.6 g/dL (3.8-4.9); Albumin/Globulin Ratio 1.71 Ratio (1.60-3.17); Alkaline Phosphatase 108 U/L (41-126); BUN/Creat Ratio 22.17 Ratio (12.00-20.00); Blood Urea Nitrogen 39.9 mg/dL (9.0-27.0); Calcium 8.3 mg/dL (8.7-10.3); Carbon Dioxide 19.8 mmol/L (21.6-31.8); Chloride 100 mmol/L (96-109); Globulin 2.1 g/dL (1.6-3.3); Glucose 175 mg/dL (70-110); Magnesium 2.1 mg/dL (1.5-2.4); Potassium 3.6 mmol/L (3.5-5.5); Sodium 135 mmol/L (135-145); Total Bilirubin 0.3 mg/dL (0.3-1.2); Total Protein 5.7 g/dL (6.2-8.2)
--- NOTE | 2024-04-29 13:41 | P.PN ---
Subjective Progress Note Date: 04/29/24 HISTORY OF PRESENTING ILLNESS 78-year-old female known to Dr. Madison. In December 2023 she underwent PCI of LAD by Dr. Madison. Other than that she has past medical history of nonischemic cardiomyopathy, permanent atrial fibrillation, mitral regurgitation with pulmonary hypertension and tricuspid regurgitation. She also has history of hypertension and dyslipidemia with CKD and chronic anemia and COPD. Presented to the hospital because of progressive worsening shortness of breath, chest heaviness symptoms. The symptoms have been gradually progressive getting worse. Admission CXR shows mild pulmonary congestion. No obvious consolidation. Admission ECG shows A-fib with heart rate 89 bpm, left bundle branch block. Left bundle branch block is old for her. Lab shows hemoglobin 9.9, WBC 9.7, sodium 133, potassium 4.1, BUN 31, creatinine 1.4, troponin was negative, BNP 2900. Previously she has had higher BMPs Home medications are aspirin 81 mg, Plavix 75 mg, Imdur 30 mg, metoprolol 12.5 mg twice daily, Aldactone 12.5 mg daily, warfarin, lisinopril 2.5, atorvastatin 40, amiodarone 200 mg daily, Lasix 20 mg daily. Progress note April 29, 2024 Hemoglobin 9.4, creatinine 1.8. On admission 1.4 BP 111/69 heart rate 80 beats minute, atrial fibrillation PHYSICAL EXAMINATION Vital signs reviewed. Head: Normocephalic. Eyes: Sclerae nonicteric. Neck: Brisk carotid upstroke, no jugular venous distention. Lungs: On nasal cannula 3 L poor respiratory effort, mild crackles audible. Heart: Irregularly irregular pulse, systolic murmur Abdomen: Soft nontender, positive bowel sounds. Extremities: No edema, intact distal pulses. Neuro: Alert, oritented, no focal deficits. Detailed neuro exam was not performed. ASSESSMENT Acute on chronic hypoxic hypercapnic respiratory failure Mild HFrEF exacerbation Nonischemic cardiomyopathy, EF 30 to 35%, based off echo in November 2022 Persistent atrial fibrillation, currently rate controlled A-fib Chronic left bundle branch block CAD status post PCI to proximal LAD December 2023 COPD CKD Anemia Echo November 2022, EF 30 to 35%, inferior wall hypokinesia PLAN Clinically patient does not appear significantly volume overloaded. Her initial troponin was negative. BNP was elevated but patient has had high BNP's in the past. Renal function is at baseline. ABG showed respiratory acidosis with hypoxia Continue aspirin, Plavix, atorvastatin 40 mg, warfarin. INR goal 2-3 Continue lisinopril 2.5, Aldactone 12.5, metoprolol 12.5 twice daily, amiodarone 200 mg daily, Imdur 30 Discontinue IV Lasix because of uptrending creatinine. Hold nighttime dose. Repeat renal function tomorrow. If normal, give Bumex 1 mg p.o. daily Consider starting Farxiga prior to discharge And might need further outpatient evaluation for her severe LVH Objective - Vital Signs Vital signs: Vital Signs Temp 97.6 F 04/29/24 07:35 Pulse 80 04/29/24 11:12 Resp 17 04/29/24 08:00 BP 111/69 04/29/24 07:35 Pulse Ox 98 04/29/24 07:59 FiO2 Intake & Output 04/28/24 04/29/24 04/29/24 18:59 06:59 18:59 Output Total 450 250 Balance -450 -250 Weight 72.3 kg 76.3 kg Output: Urine 450 250 Other: Voiding Method External Catheter External Catheter # Voids 5 # Bowel Movements 1 - Labs CBC & Chem 7: 04/29/24 04:26 04/29/24 04:26 Labs: Abnormal Lab Results - Last 24 Hours (Table) 04/29/24 04/29/24 04/29/24 Range/Units 04:26 04:26 04:26 WBC 11.34 H (4.50-10.00) X 10*3/uL RBC 3.22 L (4.10-5.20) X 10*6/uL Hgb 9.4 L (12.0-15.0) g/dL Hct 28.7 L (37.2-46.3) % RDW 15.4 H (11.5-14.5) % PT 23.6 H (9.9-11.9) sec INR 2.31 H (0.93-1.11) sec Carbon Dioxide 19.8 L (21.6-31.8) mmol/L Anion Gap 15.20 H (4.00-12.00) mmol/L BUN 39.9 H (9.0-27.0) mg/dL Creatinine 1.8 H (0.6-1.5) mg/dL Est GFR (CKD-EPI) 28 L (>=60) BUN/Creatinine Ratio 22.17 H (12.00-20.00) Ratio Glucose 175 H (70-110) mg/dL Calcium 8.3 L (8.7-10.3) mg/dL AST 45 H (13-35) U/L Total Protein 5.7 L (6.2-8.2) g/dL Albumin 3.6 L (3.8-4.9) g/dL Microbiology - Last 24 Hours (Table) 04/27/24 16:38 Blood Culture - Preliminary Blood 04/27/24 16:30 Blood Culture - Preliminary Blood
[2024-04-29] MEDS: guaiFENesin-DM 100-10MG/5ML 10 ML CUP PO SCH (13:56)
--- NOTE | 2024-04-29 15:12 | P.PN ---
Subjective Progress Note Date: 04/29/24 Hospital Course: Patient is a very pleasant 78-year-old female with a past medical history of CAD status post recent stenting (states last stent placed 6 weeks ago), atrial fibrillation/flutter on anticoagulation with Coumadin, chronic systolic heart failure with previously known EF of 30 to 35%, hypertension, COPD not home oxygen dependent, and stage IIIb chronic kidney disease. She presented to the hospital with a chief complaint of chest pain/congestion and progressively worsening shortness of breath x 1 week. Upon arrival to our facility, patient underwent evaluation in the emergency department. Vital signs upon arrival show blood pressure 111/66, heart rate 91, respiratory rate 22, temp 98.0 F, and SpO2 of 98% on room air. EKG was completed showing atrial fibrillation with a controlled ventricular rate at 89 bpm with a left bundle branch block (LBBB is unchanged when compared to previous EKGs completed 01/05/2024). Chest x-ray completed showing cardiomegaly and emphysematous changes. Labs were completed and reviewed. CBC showing leukocytosis with WBC count of 11.7, normocytic anemia with hemoglobin of 9.9. Coagulation profile showing elevated PT of 18.3, INR of 1.8, and PTT of 43.4. D-dimer was negative at 0.29. BMP showing hypo natremia with sodium of 133, hypocarbia with bicarb of 17, and renal function consistent with known stage III CKD with BUN of 31, creatinine 1.40, and GFR of 36. Lactic acid 1.2. Liver profile showing elevated AST of 47 otherwise normal findings. Troponin was negative at less than 0.012. proBNP 2990. Influenza A, influenza B, RSV, and COVID PCR were negative. Patient admitted under our servi javier with consultation to cardiology and pulmonology. Physical exam: Vital signs reviewed and stable. General: Nontoxic, no distress and appears stated age. Derm: Skin warm and dry, normal coloration for ethnicity. Head: Atraumatic, normocephalic and symmetric. Eyes: EOMs intact, no lid lag, and anicteric sclera Mouth: no lip lesions, mucus membranes moist Cardiovascular: Irregularly irregular, systolic murmur, positive posterior tibial pulses bilaterally, and cap refill < 2 seconds. Lungs: Respirations even, regular, and unlabored on room air. Lungs diminished with diffuse expiratory wheezes throughout and coarse cough noted. Abdominal: soft, nontender to palpation, no guarding, no appreciable organomegaly Ext: ROM intact. No gross muscle atrophy, no edema, no contractures Neuro: Speech clear, face symmetrical and CN II-XII grossly intact with no noted focal neuro deficits Psych: Alert and oriented to person, place, time, and situation. Appropriate and pleasant affect. Assessment and Plan of Care: Acute respiratory failure with hypoxia COPD exacerbation Acute on chronic systolic heart failure Chest pain, acute coronary event ruled out Subtherapeutic INR, resolved currently therapeutic History of CAD status post stenting Chronic atrial fibrillation -Lead Accountant following, discussed plan of care with qual research manager, . -Cardiology following, discussed plan of care with Dr. Jeter commending continuation of lisinopril and Aldactone but discontinuing Lasix secondary to HEENA. -Oxygenation to be administered and titrated as needed to maintain SPO2 equal to or greater than 92% -Telemetry monitoring. -Monitor pulse-oximetry -Duonebs scheduled 4 times daily and as needed for SOB and/or wheezing -Incentive Spirometry -Steroids: Solu-Medrol 60 mg IVP every 6 hours. -Antibiotics: Levaquin 750 mg daily. -Continue cardiac medication regimen with aspirin 81 mg daily, amiodarone 200 mg daily, Plavix 75 mg daily, isosorbide mononitrate 30 mg daily, lisinopril 2.5 mg daily, metoprolol 12.5 mg twice daily, and Aldactone 12.5 mg daily. -INR therapeutic at 2.31. Continue Coumadin, pharmacy to dose. Acute kidney injury on stage IIIb chronic kidney disease -Acute kidney injury on stage IIIb CKD with BUN of 39.9, creatinine 1.8, and GFR of 28. Baseline creatinine 1.4. -Patient required IV diuresis for acute on chronic systolic heart failure exacerbation, cardiology following and discontinued diuretics at this time with the exception of Aldactone 12.5 mg daily. -Will observe closely for improvement with repeat a.m. labs. Anemia of chronic disease -Hemoglobin at baseline. Will continue to monitor with repeat morning CBC to follow-up on hemoglobin levels and BMP to monitor renal function closely. Data and imaging reviewed: Morning labs reviewed. CBC showing leukocytosis with WBC count of 11.34, h emoglobin 9.4, and platelet count of 255. INR is now therapeutic at 2.31. BMP showing acute kidney injury on stage IIIb chronic kidney disease with BUN of 39.9, creatinine of 1.8, GFR of 28. Vital signs reviewed. Blood pressure 111/79, heart rate 84, respiratory rate 20, temp 97.5 F, and SpO2 of 100% on 4 L. CODE STATUS: Full Code DVT prophylaxis: Coumadin Anticipated discharge date: Pending clinical course Anticipated discharge place: Home Patient was seen independently by Nurse Practitioner. This document was prepared using [employer] dictation software. Please allow for errors in lance crewmember while rare they do occur. I reviewed the documentation as provided by the SHANTANU above, who is the original author of this note. I agree with the documented assessment and plan, with the following changes: none Objective - Vital Signs Vital signs: Vital Signs Temp 97.6 F 04/29/24 07:35 Pulse 92 04/29/24 08:10 Resp 17 04/29/24 08:00 BP 111/69 04/29/24 07:35 Pulse Ox 98 04/29/24 07:59 FiO2 Intake & Output 04/28/24 04/29/24 04/29/24 18:59 06:59 18:59 Output Total 450 250 Balance -450 -250 Weight 72.3 kg 76.3 kg Output: Urine 450 250 Other: Voiding Method External Catheter External Catheter # Voids 5 # Bowel Movements 1 - Labs CBC & Chem 7: 04/29/24 04:26 04/29/24 04:26 Labs: Abnormal Lab Results - Last 24 Hours (Table) 04/28/24 04/28/24 Range/Units 06:00 06:00 WBC 10.21 H (4.50-10.00) X 10*3/uL RBC 3.65 L (4.10-5.20) X 10*6/uL Hgb 10.7 L (12.0-15.0) g/dL Hct 34.2 L (37.2-46.3) % MCHC 31.3 L (32.0-37.0) g/dL RDW 15.7 H (11.5-14.5) % Carbon Dioxide 18.7 L (21.6-31.8) mmol/L Anion Gap 18.30 H (4.00-12.00) mmol/L BUN 29.0 H (9.0-27.0) mg/dL Est GFR (CKD-EPI) 39 L (>=60) BUN/Creatinine Ratio 20.71 H (12.00-20.00) Ratio Glucose 145 H (70-110) mg/dL Calcium 8.4 L (8.7-10.3) mg/dL AST 50 H (13-35) U/L Alkaline Phosphatase 139 H (41-126) U/L Albumin/Globulin Ratio 1.54 L (1.60-3.17) Ratio Microbiology - Last 24 Hours (Table) 04/27/24 16:38 Blood Culture - Preliminary Blood 04/27/24 16:30 Blood Culture - Preliminary Blood 04/27/24 16:38 Gram Stain - Preliminary Sputum
[2024-04-29] MEDS: LEVOFLOXACIN 750MG-D5W PMX 750 MG in DEXTROSE/WATER 1 150ML.BAG IVPB SCH (17:25)
[2024-04-30] MEDS ORDERED: BUMETANIDE 1 MG TAB PO SCH (09:00)
[2024-04-30 09:14] LABS: INR 2.3 (<1.2)
[2024-04-30 09:15] LABS: Prothrombin Time 22.7 sec (10.0-12.5)
[2024-04-30 10:43] LABS: HCT 31.3 % (37.2-46.3); HGB 10.4 g/dL (12.0-15.0); MCH 29.5 pg (27.0-32.0); MCHC 33.2 g/dL (32.0-37.0); MCV 88.9 FL (80.0-97.0); Mean Platelet Volume 10.5 FL (9.5-12.2); NRBC Per 100 WBC 0 X 10*3/uL (0.00-0.01); Platelet Count 331 X 10*3/uL (140-440); RBC 3.52 X 10*6/uL (4.10-5.20); RDW 15.7 % (11.5-14.5); WBC 10.46 X 10*3/uL (4.50-10.00)
[2024-04-30 10:55] LABS: ALT 46 U/L (8-44); AST 40 U/L (13-35); Albumin 3.9 g/dL (3.8-4.9); Alkaline Phosphatase 108 U/L (41-126); BUN/Creat Ratio 24.29 Ratio (12.00-20.00); Calcium 8.2 mg/dL (8.7-10.3); Carbon Dioxide 18.3 mmol/L (21.6-31.8); Chloride 94 mmol/L (96-109); Globulin 2.3 g/dL (1.6-3.3); Glucose 182 mg/dL (70-110); Potassium 3.8 mmol/L (3.5-5.5); Sodium 129 mmol/L (135-145); Total Bilirubin 0.2 mg/dL (0.3-1.2); Total Protein 6.2 g/dL (6.2-8.2)
[2024-04-30 10:56] LABS: Magnesium 2.1 mg/dL (1.5-2.4)
[2024-04-30] MEDS: polyethylene glycoL 3350 17 GM POWD.PACK PO SCH (12:10)
--- NOTE | 2024-04-30 13:36 | P.PN ---
Subjective HISTORY OF PRESENTING ILLNESS 78-year-old female known to Dr. Madison. In December 2023 she underwent PCI of LAD by Dr. Madison. Other than that she has past medical history of nonischemic cardiomyopathy, permanent atrial fibrillation, mitral regurgitation with pulmonary hypertension and tricuspid regurgitation. She also has history of hypertension and dyslipidemia with CKD and chronic anemia and COPD. Presented to the hospital because of progressive worsening shortness of breath, chest heaviness symptoms. The symptoms have been gradually progressive getting worse. Admission CXR shows mild pulmonary congestion. No obvious consolidation. Admission ECG shows A-fib with heart rate 89 bpm, left bundle branch block. Left bundle branch block is old for her. Lab shows hemoglobin 9.9, WBC 9.7, sodium 133, potassium 4.1, BUN 31, creatinine 1.4, troponin was negative, BNP 2900. Previously she has had higher BMPs Home medications are aspirin 81 mg, Plavix 75 mg, Imdur 30 mg, metoprolol 12.5 mg twice daily, Aldactone 12.5 mg daily, warfarin, lisinopril 2.5, atorvastatin 40, amiodarone 200 mg daily, Lasix 20 mg daily. Progress note April 29, 2024 Hemoglobin 9.4, creatinine 1.8. On admission 1.4 BP 111/69 heart rate 80 beats minute, atrial fibrillation 7/8 Patient seen and examined. Patient still coughing significantly mild and wheez ing on exam. States the inhalers, nebulizers briefly help. Her creatinine as well as sodium are getting worse with diuresis and diuretics were held. Blood pressure is borderline however goal map 65 with her decreased ejection fraction. Creatinine today up to 2.1. She admits she has not had much of an appetite and not eating much. PHYSICAL EXAMINATION Vital signs reviewed. Head: Normocephalic. Eyes: Sclerae nonicteric. Neck: Brisk carotid upstroke, no jugular venous distention. Lungs: On nasal cannula 3 L poor respiratory effort, no crackles audible. Heart: Irregularly irregular pulse, systolic murmur Abdomen: Soft nontender, positive bowel sounds. Extremities: No edema, intact distal pulses. Neuro: Alert, oritented, no focal deficits. Detailed neuro exam was not performed. ASSESSMENT Acute on chronic hypoxic hypercapnic respiratory failure Chronic HFrEF Nonischemic cardiomyopathy, EF 30 to 35%, based off echo in November 2022 Persistent atrial fibrillation, currently rate controlled A-fib Chronic left bundle branch block CAD status post PCI to proximal LAD December 2023 COPD CKD Anemia Echo November 2022, EF 30 to 35%, inferior wall hypokinesia PLAN Patient having cough, wheezing and hoarse voice with no significant crackles on exam and chest x-ray consistent with heart failure exacerbation. Additionally creatinine worsening with diuretics patient had been drinking much fluid. Monitor kidney function. Blood pressure is borderline however continue current medical regimen. If respiratory failure felt related to amiodarone may consider discontinuing however normally would make further Afib management options in office. Objective - Vital Signs Vital signs: Vital Signs Temp 98.6 F 04/30/24 07:45 Pulse 68 04/30/24 12:55 Resp 17 04/30/24 07:45 BP 103/65 04/30/24 07:45 Pulse Ox 94 L 04/30/24 07:45 FiO2 Intake & Output 04/29/24 04/30/24 04/30/24 18:59 06:59 18:59 Intake Total 596 Output Total 600 525 Balance -600 -525 596 Weight 76.3 kg Intake: Oral 596 Output: Urine 600 525 Other: Voiding Method External Catheter External Catheter - Labs CBC & Chem 7: 04/30/24 06:17 04/30/24 06:17 Labs: Abnormal Lab Results - Last 24 Hours (Table) 04/30/24 04/30/24 04/30/24 Range/Units 06:17 06:17 08:37 WBC 10.46 H (4.50-10.00) X 10*3/uL RBC 3.52 L (4.10-5.20) X 10*6/uL Hgb 10.4 L (12.0-15.0) g/dL Hct 31.3 L (37.2-46.3) % RDW 15.7 H (11.5-14.5) % PT 22.7 H (10.0-12.5) sec INR 2.3 H (<1.2) Sodium 129 L (135-145) mmol/L Chloride 94 L (96-109) mmol/L Carbon Dioxide 18.3 L (21.6-31.8) mmol/L Anion Gap 16.70 H (4.00-12.00) mmol/L BUN 51.0 H (9.0-27.0) mg/dL Creatinine 2.1 H (0.6-1.5) mg/dL Est GFR (CKD-EPI) 24 L (>=60) BUN/Creatinine Ratio 24.29 H (12.00-20.00) Ratio Glucose 182 H (70-110) mg/dL Calcium 8.2 L (8.7-10.3) mg/dL Total Bilirubin 0.2 L (0.3-1.2) mg/dL AST 40 H (13-35) U/L ALT 46 H (8-44) U/L Microbiology - Last 24 Hours (Table) 04/27/24 16:38 Gram Stain - Final Sputum Sputum Culture - Final Haemophilus influenzae 04/27/24 16:38 Blood Culture - Preliminary Blood 04/27/24 16:30 Blood Culture - Preliminary Blood
--- NOTE | 2024-04-30 14:31 | P.PN ---
Subjective Progress Note Date: 04/30/24 Hospital Course: Patient is a very pleasant 78-year-old female with a past medical history of CAD status post recent stenting (states last stent placed 6 weeks ago), atrial fibrillation/flutter on anticoagulation with Coumadin, chronic systolic heart failure with previously known EF of 30 to 35%, hypertension, COPD not home oxygen dependent, and stage IIIb chronic kidney disease. She presented to the hospital with a chief complaint of chest pain/congestion and progressively worsening shortness of breath x 1 week. Upon arrival to our facility, patient underwent evaluation in the emergency department. Vital signs upon arrival show blood pressure 111/66, heart rate 91, respiratory rate 22, temp 98.0 F, and SpO2 of 98% on room air. EKG was completed showing atrial fibrillation with a controlled ventricular rate at 89 bpm with a left bundle branch block (LBBB is unchanged when compared to previous EKGs completed 01/05/2024). Chest x-ray completed showing cardiomegaly and emphysematous changes. Labs were completed and reviewed. CBC showing leukocytosis with WBC count of 11.7, normocytic anemia with hemoglobin of 9.9. Coagulation profile showing elevated PT of 18.3, INR of 1.8, and PTT of 43.4. D-dimer was negative at 0.29. BMP showing hypo natremia with sodium of 133, hypocarbia with bicarb of 17, and renal function consistent with known stage III CKD with BUN of 31, creatinine 1.40, and GFR of 36. Lactic acid 1.2. Liver profile showing elevated AST of 47 otherwise normal findings. Troponin was negative at less than 0.012. proBNP 2990. Influenza A, influenza B, RSV, and COVID PCR were negative. Patient admitted under our servi javier with consultation to cardiology and pulmonology. Physical exam: Patient seen and fully evaluated at the bedside. She reports having a rough night overnight with excessive coughing with continued coughing of thick yellowish to greenish sputum. She reports continued shortness of breath and denies any chest pain or palpitations. Vital signs reviewed and stable. General: Nontoxic, no distress and appears stated age. Derm: Skin warm and dry, normal coloration for ethnicity. Head: Atraumatic, normocephalic and symmetric. Eyes: EOMs intact, no lid lag, and anicteric sclera Mouth: no lip lesions, mucus membranes moist Cardiovascular: Irregularly irregular, systolic murmur, positive posterior tibial pulses bilaterally, and cap refill < 2 seconds. Lungs: Respirations even, regular, and unlabored on room air. Lungs diminished with diffuse expiratory wheezes throughout and coarse cough noted. Abdominal: soft, nontender to palpation, no guarding, no appreciable organomegaly Ext: ROM intact. No gross muscle atrophy, no edema, no contractures Neuro: Speech clear, face symmetrical and CN II-XII grossly intact with no noted focal neuro deficits Psych: Alert and oriented to person, place, time, and situation. Appropriate and pleasant affect. Assessment and Plan of Care: Acute respiratory failure with hypoxia Haemophillus influenzae Infection COPD exacerbation Acute on chronic systolic heart failure And acute kidney injury Hyponatremia High anion gap metabolic alkalosis Chest pain, acute coronary event ruled out Subtherapeutic INR, resolved currently therapeutic History of CAD status post stenting Chronic atrial fibrillation -Non Destructive Testing Specialist following, reviewed documentation in chart. -Cardiology following, reviewed documentation in chart. -Sputum culture positive for H. influenzae -Metabolic alkalosis, hyponatremia, and worsening renal function. Will treat patient very cautiously with gentle IV fluid hydration with 0.9% normal saline at 50 cc/h x 10 hours and repeat labs tomorrow morning. -Oxygenation to be administered and titrated as needed to maintain SPO2 equal to or greater than 92% -Telemetry monitoring. -Monitor pulse-oximetry -Duonebs scheduled 4 times daily and as needed for SOB and/or wheezing -Incentive Spirometry -Steroids: Solu-Medrol 60 mg IVP every 6 hours. -Continue Antibiotics: Levaquin 750 mg daily. -Continue cardiac medication regimen with aspirin 81 mg daily, amiodarone 200 mg daily, Plavix 75 mg daily, isosorbide mononitrate 30 mg daily, lisinopril 2.5 mg daily, and metoprolol 12.5 mg twice daily. -INR therapeutic at 2.3. Continue Coumadin, pharmacy to dose. -Lisinopril, Lasix, and Aldactone held at this time while patient is receiving very cautious gentle IV fluid hydration for HEENA, metabolic alkalosis, and hyponatremia. Anemia of chronic disease -Hemoglobin at baseline. Will continue to monitor with repeat morning CBC to follow-up on hemoglobin levels and BMP to monitor renal function closely. Data and imaging reviewed: Morning labs reviewed. CBC showing leukocytosis with WBC count of 10.46 and mild normocytic anemia with hemoglobin of 10.4. Coagulation profile showing therapeutic INR of 2.3. BMP showing hyponatremia with sodium of 129 and high anion gap metabolic alkalosis with chloride 94, bicarb of 18.3, and anion gap of 16.70 with worsening renal function with BUN of 51.0, creatinine 2.1, and GFR of 24. Vital signs reviewed. Blood pressure 103/65, heart rate 77, respiratory 17 Temp 98.6 F, and SpO2 of 94% on 3 L. CODE STATUS: Full Code DVT prophylaxis: Coumadin Anticipated discharge date: Pending clinical course Anticipated discharge place: Home Patient was seen independently by Nurse Practitioner. This document was prepared using [employer] dictation software. Please allow for errors in paving and surfacing labourer while rare they do occur. . I reviewed the documentation as provided by the SHANTANU above, who is the original author of this note. I agree with the documented assessment and plan, with the following changes: none Objective - Vital Signs Vital signs: Vital Signs Temp 98.6 F 04/30/24 07:45 Pulse 77 04/30/24 07:45 Resp 17 04/30/24 07:45 BP 103/65 04/30/24 07:45 Pulse Ox 94 L 04/30/24 07:45 FiO2 Intake & Output 04/29/24 04/30/24 04/30/24 18:59 06:59 18:59 Output Total 600 525 Balance -600 -525 Weight 76.3 kg Output: Urine 600 525 Other: Voiding Method External Catheter External Catheter - Labs CBC & Chem 7: 04/30/24 06:17 04/30/24 06:17 Labs: Abnormal Lab Results - Last 24 Hours (Table) 04/29/24 04/29/24 04/29/24 Range/Units 04:26 04:26 04:26 WBC 11.34 H (4.50-10.00) X 10*3/uL RBC 3.22 L (4.10-5.20) X 10*6/uL Hgb 9.4 L (12.0-15.0) g/dL Hct 28.7 L (37.2-46.3) % RDW 15.4 H (11.5-14.5) % PT 23.6 H (9.9-11.9) sec INR 2.31 H (0.93-1.11) sec Carbon Dioxide 19.8 L (21.6-31.8) mmol/L Anion Gap 15.20 H (4.00-12.00) mmol/L BUN 39.9 H (9.0-27.0) mg/dL Creatinine 1.8 H (0.6-1.5) mg/dL Est GFR (CKD-EPI) 28 L (>=60) BUN/Creatinine Ratio 22.17 H (12.00-20.00) Ratio Glucose 175 H (70-110) mg/dL Calcium 8.3 L (8.7-10.3) mg/dL AST 45 H (13-35) U/L Total Protein 5.7 L (6.2-8.2) g/dL Albumin 3.6 L (3.8-4.9) g/dL Microbiology - Last 24 Hours (Table) 04/27/24 16:38 Gram Stain - Final Sputum Sputum Culture - Final Haemophilus influenzae 04/27/24 16:38 Blood Culture - Preliminary Blood 04/27/24 16:30 Blood Culture - Preliminary Blood
--- NOTE | 2024-04-30 14:56 | P.PN ---
Subjective Progress Note Date: 04/30/24 This is a pleasant 78-year-old female patient who is currently hospitalized for worsening shortness of breath, cough, congestion, excessive sputum production, bronchospasm and wheezing. Note that her asthma was also admitted to the hospital for similar symptoms. She is known to have coronary artery disease. She is a bit complex coronary angioplasty and stenting and she suffers from chronic atrial fibrillation she is back in anticoagulation with warfarin. She has also systolic heart failure with an ejection fraction of 30 to 35% and chronic stage IIIb kidney disease. Upon arrival to the emergency, the patient was quite short of breath. Likely just level was at 1.2. The viral screen came back negative. The chest x-ray was consistent with CHF and pulmonary edema. Overnight, the patient became more short of breath. The patient was given additional dose of Lasix and she is feeling better at this point in time. No nausea. No vomiting. No abdominal pain. No change in mental status. The white cell count is at 10.2, hemoglobin 10.7, serum bicarb is at 18 with a BUN of 29 and a creatinine 1.4 and sodium is at 138. She is currently sitting up on the chair comfortably on 40s of oxygen by nasal cannula. Her last coronary intervention was in December 2023. At that time, the patient underwent stenting of the mid LAD and proximal LAD through the left radial artery approach. Her curre nt INR is at 1.8. 04/29/2024, the patient is being seen for a follow-up. Still bronchospastic. Still having coughing episodes. Still congested and wheezy. The patient is on a combination bronchodilators. The patient is also on steroids. The patient is also on diuretics and the patient is to be Lasix 40 mg IV every 12 hours. Negative fluid balance. She remains on oxygen at 3 L/min nasal cannula. Sputum culture still pending. Blood cultures are still negative. The white cell 11.3 with a hemoglobin of 0.4, INR is at 2.3 and the patient remains on warfarin. He has 29 with a creatinine of 1.4 from yesterday. Awaiting labs from today in terms of electrolytes and renal function. No interval worsening shortness of breath. Some improvement since yesterday. The patient is seen today April 30, 2024 in follow-up on the regular medical floor. She is awake and alert in no acute distress. Currently sitting up in a chair. She is maintaining O2 saturations in the 90s on 3 L/min per nasal cannula. Sputum culture is positive for haemophilus influenza. INR 2.3. White count 10.4. Hemoglobin 10.4. Platelets 331. Sodium 129. Potassium 3.8. Bicarb 18. BUN 51. Creatinine 2.1. Glucose 182. She is continued on bronchodilators, Solu-Medrol. Antibiotics in the form of Levaquin. Anticoagulated with warfarin. Remains on Bumex. Currently in a -1.1 L balance. Objective - Vital Signs Vital signs: Vital Signs Temp 98.7 F 04/30/24 13:57 Pulse 73 04/30/24 13:57 Resp 16 04/30/24 13:57 BP 96/59 04/30/24 13:57 Pulse Ox 98 04/30/24 13:57 FiO2 Intake & Output 04/29/24 04/30/24 04/30/24 18:59 06:59 18:59 Intake Total 596 Output Total 600 525 Balance -600 -525 596 Weight 76.3 kg Intake: Oral 596 Output: Urine 600 525 Other: Voiding Method External Catheter External Catheter - Exam GENERAL EXAM: Alert, pleasant 78-year-old female, up in a chair, on 3 L nasal cannula, comfortable in no apparent distress. HEAD: Normocephalic. EYES: Normal reaction of pupils, equal size. NOSE: Clear with pink turbinates. THROAT: No erythema or exudates. NECK: No masses, no JVD. CHEST: No chest wall deformity. LUNGS: Equal air entry with faint crackles in the posterior bases. CVS: S1 and S2 normal with no audible murmur, regular rhythm. ABDOMEN: No hepatosplenomegaly, normal bowel sounds, no guarding or rigidity. SPINE: No scoliosis or deformity SKIN: No rashes CENTRAL NERVOUS SYSTEM: No focal deficits, tone is normal in all 4 extremities. EXTREMITIES: There is no peripheral edema. No clubbing, no cyanosis. Peripheral pulses are intact. - Labs CBC & Chem 7: 04/30/24 06:17 04/30/24 06:17 Labs: Abnormal Lab Results - Last 24 Hours (Table) 04/30/24 04/30/24 04/30/24 Range/Units 06:17 06:17 08:37 WBC 10.46 H (4.50-10.00) X 10*3/uL RBC 3.52 L (4.10-5.20) X 10*6/uL Hgb 10.4 L (12.0-15.0) g/dL Hct 31.3 L (37.2-46.3) % RDW 15.7 H (11.5-14.5) % PT 22.7 H (10.0-12.5) sec INR 2.3 H (<1.2) Sodium 129 L (135-145) mmol/L Chloride 94 L (96-109) mmol/L Carbon Dioxide 18.3 L (21.6-31.8) mmol/L Anion Gap 16.70 H (4.00-12.00) mmol/L BUN 51.0 H (9.0-27.0) mg/dL Creatinine 2.1 H (0.6-1.5) mg/dL Est GFR (CKD-EPI) 24 L (>=60) BUN/Creatinine Ratio 24.29 H (12.00-20.00) Ratio Glucose 182 H (70-110) mg/dL Calcium 8.2 L (8.7-10.3) mg/dL Total Bilirubin 0.2 L (0.3-1.2) mg/dL AST 40 H (13-35) U/L ALT 46 H (8-44) U/L Microbiology - Last 24 Hours (Table) 04/27/24 16:38 Gram Stain - Final Sputum Sputum Culture - Final Haemophilus influenzae 04/27/24 16:38 Blood Culture - Preliminary Blood 04/27/24 16:30 Blood Culture - Preliminary Blood Assessment and Plan Assessment: Acute exacerbation of COPD with symptoms of bronchitis. No clear indication for pneumonia Acute decompensated heart failure secondary to above. Chest x-ray is consistent with CHF and pulmonary edema and the patient is currently being diuresed with IV Lasix. Acute hypoxic respiratory failure the patient is currently on 40s of O2 nasal cannula Chronic atrial fibrillation Chronic systolic heart failure with an ejection fraction of 30 to 35% Coronary artery disease with recent coronary intervention and stenting of the LAD x 2 done in December 2023 Chronic stage IIIb kidney disease Anemia of chronic disease Hypertension Hyperlipidemia Osteoarthritis Rheumatoid arthritis Migraines Previous history of CVA Previous history of melanoma of the face resected Previous history of diverticulosis Plan: The patient was seen and evaluated Labs and medications reviewed Titrate down continue the current treatment plan Increase her activity as tolerated We will continue to follow Plan is for home with home care at discharge I have personally seen and examined the patient, performed the documentation and the assessment and plan as written. Number of minutes spent on the visit: 10.
[2024-04-30] MEDS: SODIUM CHLORIDE 0.9% 1,000 ML IV SCH (16:20)
[2024-04-30] MEDS: WARFARIN 5 MG TAB PO ONE (17:57)
[2024-05-01 06:28] LABS: Prothrombin Time 19.9 sec (10.0-12.5)
[2024-05-01 10:10] LABS: HCT 35.5 % (34.0-46.0); HGB 11.2 gm/dL (11.4-16.0); Hypochromasia Slight; MCH 29.1 pg (25.0-35.0); MCHC 31.5 g/dL (31.0-37.0); MCV 92.4 fL (80.0-100.0); Platelet Count 376 k/uL (150-450); RBC 3.84 m/uL (3.80-5.40); RDW 14.9 % (11.5-15.5)
[2024-05-01 10:23] LABS: ALT 37 U/L (4-34); AST 40 U/L (14-36); African American GFR (CKD) 40 (>60 ml/min/1.73 sqM); Albumin 3.3 g/dL (3.5-5.0); Albumin/Globulin Ratio 1.3; Alkaline Phosphatase 85 U/L (38-126); Anion Gap 8 mmol/L; Blood Urea Nitrogen 44 mg/dL (7-17); Calcium 8.3 mg/dL (8.4-10.2); Carbon Dioxide 18 mmol/L (22-30); Chloride 102 mmol/L (98-107); Globulin 2.5 g/dL; Glucose 129 mg/dL (74-99); Magnesium 2.3 mg/dL (1.6-2.3); Non-African American GFR(CKD) 35 (>60 ml/min/1.73 sqM); Potassium 4.1 mmol/L (3.5-5.1); Sodium 128 mmol/L (137-145); Total Bilirubin 0.5 mg/dL (0.2-1.3); Total Protein 5.8 g/dL (6.3-8.2)
--- NOTE | 2024-05-01 14:41 | P.PN ---
Subjective Progress Note Date: 05/01/24 This is a pleasant 78-year-old female patient who is currently hospitalized for worsening shortness of breath, cough, congestion, excessive sputum production, bronchospasm and wheezing. Note that her asthma was also admitted to the hospital for similar symptoms. She is known to have coronary artery disease. She is a bit complex coronary angioplasty and stenting and she suffers from chronic atrial fibrillation she is back in anticoagulation with warfarin. She has also systolic heart failure with an ejection fraction of 30 to 35% and chronic stage IIIb kidney disease. Upon arrival to the emergency, the patient was quite short of breath. Likely just level was at 1.2. The viral screen came back negative. The chest x-ray was consistent with CHF and pulmonary edema. Overnight, the patient became more short of breath. The patient was given additional dose of Lasix and she is feeling better at this point in time. No nausea. No vomiting. No abdominal pain. No change in mental status. The white cell count is at 10.2, hemoglobin 10.7, serum bicarb is at 18 with a BUN of 29 and a creatinine 1.4 and sodium is at 138. She is currently sitting up on the chair comfortably on 40s of oxygen by nasal cannula. Her last coronary intervention was in December 2023. At that time, the patient underwent stenting of the mid LAD and proximal LAD through the left radial artery approach. Her curre nt INR is at 1.8. 04/29/2024, the patient is being seen for a follow-up. Still bronchospastic. Still having coughing episodes. Still congested and wheezy. The patient is on a combination bronchodilators. The patient is also on steroids. The patient is also on diuretics and the patient is to be Lasix 40 mg IV every 12 hours. Negative fluid balance. She remains on oxygen at 3 L/min nasal cannula. Sputum culture still pending. Blood cultures are still negative. The white cell 11.3 with a hemoglobin of 0.4, INR is at 2.3 and the patient remains on warfarin. He has 29 with a creatinine of 1.4 from yesterday. Awaiting labs from today in terms of electrolytes and renal function. No interval worsening shortness of breath. Some improvement since yesterday. The patient is seen today April 30, 2024 in follow-up on the regular medical floor. She is awake and alert in no acute distress. Currently sitting up in a chair. She is maintaining O2 saturations in the 90s on 3 L/min per nasal cannula. Sputum culture is positive for haemophilus influenza. INR 2.3. White count 10.4. Hemoglobin 10.4. Platelets 331. Sodium 129. Potassium 3.8. Bicarb 18. BUN 51. Creatinine 2.1. Glucose 182. She is continued on bronchodilators, Solu-Medrol. Antibiotics in the form of Levaquin. Anticoagulated with warfarin. Remains on Bumex. Currently in a -1.1 L balance. The patient is seen today May 01, 2024 in follow-up on the regular medical floor. She is currently sitting up in a chair. Awake and alert in no acute distress. Breathing better today compared to yesterday. Still with a dry cough. Still with some chest wall pain from coughing. She is maintaining O2 saturations in the 90s on room air. She has been afebrile. Hemodynamically stable. Sputum culture was positive for H flu. Blood cultures revealed no growth. White count 9.0. Hemoglobin 11.2. Platelets 376. Sodium 128. Potassium 4.1. Bicarb 18. BUN 44. Creatinine 1.45. Glucose 129. She is continued on Levaquin. Remains on bronchodilators and steroids. Robitussin for cough. Objective - Vital Signs Vital signs: Vital Signs Temp 97.7 F 05/01/24 13:49 Pulse 71 05/01/24 13:49 Resp 17 05/01/24 13:49 BP 109/69 05/01/24 13:49 Pulse Ox 98 05/01/24 13:49 FiO2 Intake & Output 04/30/24 05/01/24 05/01/24 18:59 06:59 18:59 Intake Total 714 Output Total 1300 300 700 Balance -586 -300 -700 Weight 81 kg Intake: Oral 714 Output: Urine 1300 300 700 Straight 700 Other: Voiding Method External Catheter # Voids 1 2 - Exam GENERAL EXAM: Alert, 78-year-old female, up in a chair, on room air, comfortable in no apparent distress. HEAD: Normocephalic. EYES: Normal reaction of pupils, equal size. NOSE: Clear with pink turbinates. THROAT: No erythema or exudates. NECK: No masses, no JVD. CHEST: No chest wall deformity. LUNGS: Equal air entry with faint crackles in the posterior bases. CVS: S1 and S2 normal with no audible murmur, regular rhythm. ABDOMEN: No hepatosplenomegaly, normal bowel sounds, no guarding or rigidity. SPINE: No scoliosis or deformity SKIN: No rashes CENTRAL NERVOUS SYSTEM: No focal deficits, tone is normal in all 4 extremities. EXTREMITIES: There is no peripheral edema. No clubbing, no cyanosis. Peripheral pulses are intact. - Labs CBC & Chem 7: 05/01/24 08:52 05/01/24 08:52 Labs: Abnormal Lab Results - Last 24 Hours (Table) 05/01/24 05/01/24 05/01/24 Range/Units 05:12 08:52 08:52 Hgb 11.2 L (11.4-16.0) gm/dL PT 19.9 H (10.0-12.5) sec INR 2.0 H (<1.2) Sodium 128 L (137-145) mmol/L Carbon Dioxide 18 L (22-30) mmol/L BUN 44 H (7-17) mg/dL Creatinine 1.45 H (0.52-1.04) mg/dL Glucose 129 H (74-99) mg/dL Calcium 8.3 L (8.4-10.2) mg/dL AST 40 H (14-36) U/L ALT 37 H (4-34) U/L Total Protein 5.8 L (6.3-8.2) g/dL Albumin 3.3 L (3.5-5.0) g/dL Microbiology - Last 24 Hours (Table) 04/27/24 16:38 Blood Culture - Preliminary Blood 04/27/24 16:30 Blood Culture - Preliminary Blood Assessment and Plan Assessment: Acute exacerbation of COPD with symptoms of bronchitis. No clear indication for pneumonia Acute decompensated heart failure secondary to above. Chest x-ray is consistent with CHF and pulmonary edema and diuresed Acute hypoxic respiratory failure the patient is currently on 40s of O2 nasal cannula Chronic atrial fibrillation Chronic systolic heart failure with an ejection fraction of 30 to 35% Coronary artery disease with recent coronary intervention and stenting of the LAD x 2 done in December 2023 Chronic stage IIIb kidney disease Anemia of chronic disease Hypertension Hyperlipidemia Osteoarthritis Rheumatoid arthritis Migraines Previous history of CVA Previous history of melanoma of the face resected Previous history of diverticulosis Plan: The patient was seen and evaluated Labs and medications reviewed Stable and on room air Cleared for discharge from the pulmonary standpoint Complete a prednisone taper Plan is for home with home care I have personally seen and examined the patient, performed the documentation and the assessment and plan as written. Number of minutes spent on the visit: 10.
[2024-05-01] MEDS: WARFARIN 2.5 MG TAB PO ONE (16:18)
--- NOTE | 2024-05-01 17:25 | P.PN ---
Subjective Progress Note Date: 05/01/24 Hospital Course: Patient is a very pleasant 78-year-old female with a past medical history of CAD status post recent stenting (states last stent placed 6 weeks ago), atrial fibrillation/flutter on anticoagulation with Coumadin, chronic systolic heart failure with previously known EF of 30 to 35%, hypertension, COPD not home oxygen dependent, and stage IIIb chronic kidney disease. She presented to the hospital with a chief complaint of chest pain/congestion and progressively worsening shortness of breath x 1 week. Upon arrival to our facility, patient underwent evaluation in the emergency department. Vital signs upon arrival show blood pressure 111/66, heart rate 91, respiratory rate 22, temp 98.0 F, and SpO2 of 98% on room air. EKG was completed showing atrial fibrillation with a controlled ventricular rate at 89 bpm with a left bundle branch block (LBBB is unchanged when compared to previous EKGs completed 01/05/2024). Chest x-ray completed showing cardiomegaly and emphysematous changes. Labs were completed and reviewed. CBC showing leukocytosis with WBC count of 11.7, normocytic anemia with hemoglobin of 9.9. Coagulation profile showing elevated PT of 18.3, INR of 1.8, and PTT of 43.4. D-dimer was negative at 0.29. BMP showing hypo natremia with sodium of 133, hypocarbia with bicarb of 17, and renal function consistent with known stage III CKD with BUN of 31, creatinine 1.40, and GFR of 36. Lactic acid 1.2. Liver profile showing elevated AST of 47 otherwise normal findings. Troponin was negative at less than 0.012. proBNP 2990. Influenza A, influenza B, RSV, and COVID PCR were negative. Patient admitted under our servi javier with consultation to cardiology and pulmonology. Physical exam: Patient seen and fully evaluated at the bedside. She appears to be doing much better today when compared to yesterday. She has been weaned off of oxygen with SpO2 of 98% on room air. Continues to report coarse cough and overall feeling "miserable". Vital signs reviewed and stable. General: Nontoxic, no distress and appears stated age. Derm: Skin warm and dry, normal coloration for ethnicity. Head: Atraumatic, normocephalic and symmetric. Eyes: EOMs intact, no lid lag, and anicteric sclera Mouth: no lip lesions, mucus membranes moist Cardiovascular: Irregularly irregular, systolic murmur, positive posterior tibial pulses bilaterally, and cap refill < 2 seconds. Lungs: Respirations even, regular, and unlabored on room air. Lungs diminished with soft diffuse expiratory wheezes in upper lobes. No rhonchi,, rales, or crackles noted Abdominal: soft, nontender to palpation, no guarding, no appreciable organomegaly Ext: ROM intact. No gross muscle atrophy, no edema, no contractures Neuro: Speech clear, face symmetrical and CN II-XII grossly intact with no noted focal neuro deficits Psych: Alert and oriented to person, place, time, and situation. Appropriate and pleasant affect. Assessment and Plan of Care: Acute respiratory failure with hypoxia Haemophillus influenzae Infection COPD exacerbation Acute on chronic systolic heart failure Hyponatremia Acute kidney injury, resolved High anion gap metabolic alkalosis, resolved Chest pain, acute coronary event ruled out Subtherapeutic INR, resolved currently therapeutic History of CAD status post stenting Chronic atrial fibrillation -Tentmaker following, reviewed documentation in chart. -Cardiology following, reviewed documentation in chart. -Sputum culture positive for H. influenzae -Patient had acute kidney injury with BUN of 51.0, creatinine of 2.1, and GFR of 24, she was placed on gentle IV fluid hydration with 0.9% normal saline at 50 cc/h x 10 hours with full resolution of HEENA with repeat BUN 44, creatinine 1.45, and GFR of 35. -Oxygenation to be administered and titrated as needed to maintain SPO2 equal to or greater than 92% -Duonebs scheduled 4 times daily and as needed for SOB and/or wheezing -Continue telemetry monitoring, SpO2 monitoring, and encouraging use of incentive Spirometry -Steroids: Patient transition to oral prednisone 40 mg daily -Continue Antibiotics: Levaquin 750 mg daily. -Continue cardiac medication regimen with aspirin 81 mg daily, amiodarone 200 mg daily, Plavix 75 mg daily, isosorbide mononitrate 30 mg daily, lisinopril 2.5 mg daily, and metoprolol 12.5 mg twice daily. -INR therapeutic at 2.0. Continue Coumadin, pharmacy to dose. Anemia of chronic disease -Hemoglobin at baseline. Will continue to monitor with repeat morning CBC to follow-up on hemoglobin levels and BMP to monitor renal function closely. Data and imaging reviewed: Morning labs reviewed. CBC showing resolution of leukocytosis with WBC count of 9.0 and stable normocytic anemia with hemoglobin of 11.2. BMP showing hyponatremia with sodium of 128 and resolution of high anion gap metabolic alkalosis with chloride of 102, bicarb 18, and anion gap of 8. Renal function showing significant improvement and back to baseline with BUN of 44, creatinine 1.45, and GFR of 35. Liver profile showing elevated AST of 40, ALT of 37, and alkaline phosphatase normal at 85. Albumin low at 3.3. Magnesium normal findings at 2.3. Vital signs reviewed. Blood pressure 115/73, heart rate 83, respiratory rate 16, temp 97.7 F, and SpO2 of 98% on room air. CODE STATUS: Full Code DVT prophylaxis: Coumadin Anticipated discharge date: 24 to [address]: Home Patient was seen independently by Nurse Practitioner. This document was prepared using [employer] dictation software. Please allow for errors in data management manager while rare they do occur. I reviewed the documentation as provided by the SHANTANU above, who is the original author of this note. I agree with the documented assessment and plan, with the following changes: none Objective - Vital Signs Vital signs: Vital Signs Temp 97.7 F 05/01/24 07:10 Pulse 82 05/01/24 08:24 Resp 16 05/01/24 07:10 BP 115/73 05/01/24 07:10 Pulse Ox 98 05/01/24 08:13 FiO2 Intake & Output 04/30/24 05/01/24 05/01/24 18:59 06:59 18:59 Intake Total 714 Output Total 1300 300 Balance -586 -300 Weight 81 kg Intake: Oral 714 Output: Urine 1300 300 Other: Voiding Method External Catheter # Voids 1 - Labs CBC & Chem 7: 05/07/24 04:14 05/07/24 04:14 Labs: Abnormal Lab Results - Last 24 Hours (Table) 04/30/24 04/30/24 04/30/24 Range/Units 06:17 06:17 08:37 WBC 10.46 H (4.50-10.00) X 10*3/uL RBC 3.52 L (4.10-5.20) X 10*6/uL Hgb 10.4 L (12.0-15.0) g/dL Hct 31.3 L (37.2-46.3) % RDW 15.7 H (11.5-14.5) % PT 22.7 H (10.0-12.5) sec INR 2.3 H (<1.2) Sodium 129 L (135-145) mmol/L Chloride 94 L (96-109) mmol/L Carbon Dioxide 18.3 L (21.6-31.8) mmol/L Anion Gap 16.70 H (4.00-12.00) mmol/L BUN 51.0 H (9.0-27.0) mg/dL Creatinine 2.1 H (0.6-1.5) mg/dL Est GFR (CKD-EPI) 24 L (>=60) BUN/Creatinine Ratio 24.29 H (12.00-20.00) Ratio Glucose 182 H (70-110) mg/dL Calcium 8.2 L (8.7-10.3) mg/dL Total Bilirubin 0.2 L (0.3-1.2) mg/dL AST 40 H (13-35) U/L ALT 46 H (8-44) U/L 05/01/24 Range/Units 05:12 WBC (4.50-10.00) X 10*3/uL RBC (4.10-5.20) X 10*6/uL Hgb (12.0-15.0) g/dL Hct (37.2-46.3) % RDW (11.5-14.5) % PT 19.9 H (10.0-12.5) sec INR 2.0 H (<1.2) Sodium (135-145) mmol/L Chloride (96-109) mmol/L Carbon Dioxide (21.6-31.8) mmol/L Anion Gap (4.00-12.00) mmol/L BUN (9.0-27.0) mg/dL Creatinine (0.6-1.5) mg/dL Est GFR (CKD-EPI) (>=60) BUN/Creatinine Ratio (12.00-20.00) Ratio Glucose (70-110) mg/dL Calcium (8.7-10.3) mg/dL Total Bilirubin (0.3-1.2) mg/dL AST (13-35) U/L ALT (8-44) U/L Microbiology - Last 24 Hours (Table) 04/27/24 16:38 Blood Culture - Preliminary Blood 04/27/24 16:30 Blood Culture - Preliminary Blood 04/27/24 16:38 Gram Stain - Final Sputum Sputum Culture - Final Haemophilus influenzae
--- NOTE | 2024-05-01 18:29 | P.PN ---
Subjective HISTORY OF PRESENTING ILLNESS 78-year-old female known to Dr. Madison. In December 2023 she underwent PCI of LAD by Dr. Madison. Other than that she has past medical history of nonischemic cardiomyopathy, permanent atrial fibrillation, mitral regurgitation with pulmonary hypertension and tricuspid regurgitation. She also has history of hypertension and dyslipidemia with CKD and chronic anemia and COPD. Presented to the hospital because of progressive worsening shortness of breath, chest heaviness symptoms. The symptoms have been gradually progressive getting worse. Admission CXR shows mild pulmonary congestion. No obvious consolidation. Admission ECG shows A-fib with heart rate 89 bpm, left bundle branch block. Left bundle branch block is old for her. Lab shows hemoglobin 9.9, WBC 9.7, sodium 133, potassium 4.1, BUN 31, creatinine 1.4, troponin was negative, BNP 2900. Previously she has had higher BMPs Home medications are aspirin 81 mg, Plavix 75 mg, Imdur 30 mg, metoprolol 12.5 mg twice daily, Aldactone 12.5 mg daily, warfarin, lisinopril 2.5, atorvastatin 40, amiodarone 200 mg daily, Lasix 20 mg daily. Progress note April 29, 2024 Hemoglobin 9.4, creatinine 1.8. On admission 1.4 BP 111/69 heart rate 80 beats minute, atrial fibrillation 04/30 Patient seen and examined. Patient still coughing significantly mild and wheezi ng on exam. States the inhalers, nebulizers briefly help. Her creatinine as well as sodium are getting worse with diuresis and diuretics were held. Blood pressure is borderline however goal map 65 with her decreased ejection fraction. Creatinine today up to 2.1. She admits she has not had much of an appetite and not eating much. 05/01 Patient seen and examined. Patient denies any chest pain or pressure. Still having a dry cough and hoarse voice. She states in the past she has been cardioverted she believes 3 times however did not really feel any different after the cardioversions. We therefore discussed that we will discontinuing the amiodarone due to concern of possible risk of lung toxicity with her lungs artery having a number of issues. Tendon did improve to 1.4 and diuretics have been on hold. PHYSICAL EXAMINATION Vital signs reviewed. Head: Normocephalic. Eyes: Sclerae nonicteric. Neck: Brisk carotid upstroke, no jugular venous distention. Lungs: On nasal cannula 3 L poor respiratory effort, no crackles audible. Heart: Irregularly irregular pulse, systolic murmur Abdomen: Soft nontender, positive bowel sounds. Extremities: No edema, intact distal pulses. Neuro: Alert, oritented, no focal deficits. Detailed neuro exam was not performed. ASSESSMENT Acute on chronic hypoxic hypercapnic respiratory failure Chronic HFrEF Nonischemic cardiomyopathy, EF 30 to 35%, based off echo in November 2022 Persistent atrial fibrillation, currently rate controlled A-fib Chronic left bundle branch block CAD status post PCI to proximal LAD December 2023 COPD CKD Anemia Echo November 2022, EF 30 to 35%, inferior wall hypokinesia PLAN Patient having cough, wheezing and hoarse voice with no significant crackles on exam and chest x-ray not consistent with heart failure exacerbation. Additionally creatinine worsening with diuretics patient had not been drinking much fluid. Continue to hold diuretics 1 more day. Stop amiodarone due to possible risk of lung toxicity and given patient is fairly asymptomatic from her A. fib and prior cardioversions she did not feel well or significantly better after. Further rhythm control may be evaluated in the office. Objective - Vital Signs Vital signs: Vital Signs Temp 97.7 F 05/01/24 13:49 Pulse 80 05/01/24 16:20 Resp 17 05/01/24 13:49 BP 109/69 05/01/24 13:49 Pulse Ox 98 05/01/24 13:49 FiO2 Intake & Output 04/30/24 05/01/24 05/01/24 18:59 06:59 18:59 Intake Total 714 150 Output Total 5159 599 6200 Balance -330 -731 -6684 Weight 81 kg Intake: Intake, IV Titration 150 Amount Levofloxacin 750Mg-D5w 150 Pmx 750 mg In Dextrose/ Water 1 150ml.bag @ 100 mls/hr IVPB Q48H [facility] Rx#: [id number] Oral 714 Output: Urine 4158 [id number] Straight 2020 Other: Voiding Method External Catheter # Voids 1 2 - Labs CBC & Chem 7: 05/01/24 08:52 05/01/24 08:52 Labs: Abnormal Lab Results - Last 24 Hours (Table) 05/01/24 05/01/24 05/01/24 Range/Units 05:12 08:52 08:52 Hgb 11.2 L (11.4-16.0) gm/dL PT 19.9 H (10.0-12.5) sec INR 2.0 H (<1.2) Sodium 128 L (137-145) mmol/L Carbon Dioxide 18 L (22-30) mmol/L BUN 44 H (7-17) mg/dL Creatinine 1.45 H (0.52-1.04) mg/dL Glucose 129 H (74-99) mg/dL Calcium 8.3 L (8.4-10.2) mg/dL AST 40 H (14-36) U/L ALT 37 H (4-34) U/L Total Protein 5.8 L (6.3-8.2) g/dL Albumin 3.3 L (3.5-5.0) g/dL Microbiology - Last 24 Hours (Table) 04/27/24 16:38 Blood Culture - Preliminary Blood 04/27/24 16:30 Blood Culture - Preliminary Blood
[2024-05-02 08:08] LABS: INR 2.7 (<1.2); Prothrombin Time 26.8 sec (10.0-12.5)
[2024-05-02] MEDS: predniSONE 20 MG TAB PO SCH (08:42)
[2024-05-02 12:13] LABS: HCT 32.2 % (37.2-46.3); HGB 10.9 g/dL (12.0-15.0); MCH 29.7 pg (27.0-32.0); MCHC 33.9 g/dL (32.0-37.0); MCV 87.7 FL (80.0-97.0); Mean Platelet Volume 10.3 FL (9.5-12.2); NRBC Per 100 WBC 0.02 X 10*3/uL (0.00-0.01); Platelet Count 381 X 10*3/uL (140-440); RBC 3.67 X 10*6/uL (4.10-5.20); RDW 15.4 % (11.5-14.5); WBC 14.89 X 10*3/uL (4.50-10.00)
[2024-05-02 12:24] LABS: ALT 41 U/L (8-44); AST 34 U/L (13-35); Albumin 3.5 g/dL (3.8-4.9); Albumin/Globulin Ratio 1.75 Ratio (1.60-3.17); Alkaline Phosphatase 84 U/L (41-126); Blood Urea Nitrogen 41.4 mg/dL (9.0-27.0); Calcium 8.4 mg/dL (8.7-10.3); Carbon Dioxide 18.5 mmol/L (21.6-31.8); Chloride 97 mmol/L (96-109); Glucose 123 mg/dL (70-110); Magnesium 2.3 mg/dL (1.5-2.4); Potassium 4.2 mmol/L (3.5-5.5); Sodium 129 mmol/L (135-145); Total Bilirubin 0.2 mg/dL (0.3-1.2); Total Protein 5.5 g/dL (6.2-8.2)
--- NOTE | 2024-05-02 14:30 | P.PN ---
Subjective Progress Note Date: 05/02/24 This is a pleasant 78-year-old female patient who is currently hospitalized for worsening shortness of breath, cough, congestion, excessive sputum production, bronchospasm and wheezing. Note that her asthma was also admitted to the hospital for similar symptoms. She is known to have coronary artery disease. She is a bit complex coronary angioplasty and stenting and she suffers from chronic atrial fibrillation she is back in anticoagulation with warfarin. She has also systolic heart failure with an ejection fraction of 30 to 35% and chronic stage IIIb kidney disease. Upon arrival to the emergency, the patient was quite short of breath. Likely just level was at 1.2. The viral screen came back negative. The chest x-ray was consistent with CHF and pulmonary edema. Overnight, the patient became more short of breath. The patient was given additional dose of Lasix and she is feeling better at this point in time. No nausea. No vomiting. No abdominal pain. No change in mental status. The white cell count is at 10.2, hemoglobin 10.7, serum bicarb is at 18 with a BUN of 29 and a creatinine 1.4 and sodium is at 138. She is currently sitting up on the chair comfortably on 40s of oxygen by nasal cannula. Her last coronary intervention was in December 2023. At that time, the patient underwent stenting of the mid LAD and proximal LAD through the left radial artery approach. Her curre nt INR is at 1.8. 04/29/2024, the patient is being seen for a follow-up. Still bronchospastic. Still having coughing episodes. Still congested and wheezy. The patient is on a combination bronchodilators. The patient is also on steroids. The patient is also on diuretics and the patient is to be Lasix 40 mg IV every 12 hours. Negative fluid balance. She remains on oxygen at 3 L/min nasal cannula. Sputum culture still pending. Blood cultures are still negative. The white cell 11.3 with a hemoglobin of 0.4, INR is at 2.3 and the patient remains on warfarin. He has 29 with a creatinine of 1.4 from yesterday. Awaiting labs from today in terms of electrolytes and renal function. No interval worsening shortness of breath. Some improvement since yesterday. The patient is seen today April 30, 2024 in follow-up on the regular medical floor. She is awake and alert in no acute distress. Currently sitting up in a chair. She is maintaining O2 saturations in the 90s on 3 L/min per nasal cannula. Sputum culture is positive for haemophilus influenza. INR 2.3. White count 10.4. Hemoglobin 10.4. Platelets 331. Sodium 129. Potassium 3.8. Bicarb 18. BUN 51. Creatinine 2.1. Glucose 182. She is continued on bronchodilators, Solu-Medrol. Antibiotics in the form of Levaquin. Anticoagulated with warfarin. Remains on Bumex. Currently in a -1.1 L balance. The patient is seen today May 01, 2024 in follow-up on the regular medical floor. She is currently sitting up in a chair. Awake and alert in no acute distress. Breathing better today compared to yesterday. Still with a dry cough. Still with some chest wall pain from coughing. She is maintaining O2 saturations in the 90s on room air. She has been afebrile. Hemodynamically stable. Sputum culture was positive for H flu. Blood cultures revealed no growth. White count 9.0. Hemoglobin 11.2. Platelets 376. Sodium 128. Potassium 4.1. Bicarb 18. BUN 44. Creatinine 1.45. Glucose 129. She is continued on Levaquin. Remains on bronchodilators and steroids. Robitussin for cough. The patient is seen today May 02, 2024 in follow-up on the regular medical floor. She is resting comfortably in bed. Awake and alert in no acute distress. Maintaining O2 saturations in the 90s on room air. INR 2.7. Follow- up chest x-ray is unchanged. No worsening infiltrates. Sputum culture was positive for haemophilus influenza back on 04/27/2024. White count 14.8. Hemoglobin 10.9. Platelets 381. Sodium 129. Potassium 4.2. Bicarb 18. BUN 41. Creatinine 1.8. Glucose 123. Remains on bronchodilators. Antibiotics in the form of Levaquin. Prednisone taper. Objective - Vital Signs Vital signs: Vital Signs Temp 98.4 F 05/02/24 07:40 Pulse 71 05/02/24 12:05 Resp 16 05/02/24 11:51 BP 115/60 05/02/24 07:40 Pulse Ox 96 05/02/24 08:11 FiO2 Intake & Output 05/01/24 05/02/24 05/02/24 18:59 06:59 18:59 Intake Total 150 Output Total 2020 Balance -1870 Weight 83 kg Intake: Intake, IV Titration 150 Amount Levofloxacin 750Mg-D5w 150 Pmx 750 mg In Dextrose/ Water 1 150ml.bag @ 100 mls/hr IVPB Q48H [facility] Rx#: [id number] Output: Urine 2020 Straight 2020 Other: Voiding Method Indwelling Catheter # Voids 2 - Exam GENERAL EXAM: Alert, 78-year-old female, resting in bed, on room air, in no apparent distress. HEAD: Normocephalic. EYES: Normal reaction of pupils, equal size. NOSE: Clear with pink turbinates. THROAT: No erythema or exudates. NECK: No masses, no JVD. CHEST: No chest wall deformity. LUNGS: Equal air entry with faint crackles in the posterior bases. CVS: S1 and S2 normal with no audible murmur, regular rhythm. ABDOMEN: No hepatosplenomegaly, normal bowel sounds, no guarding or rigidity. SPINE: No scoliosis or deformity SKIN: No rashes CENTRAL NERVOUS SYSTEM: No focal deficits, tone is normal in all 4 extremities. EXTREMITIES: There is no peripheral edema. No clubbing, no cyanosis. Peripheral pulses are intact. - Labs CBC & Chem 7: 05/02/24 06:46 05/02/24 06:46 Labs: Abnormal Lab Results - Last 24 Hours (Table) 05/02/24 05/02/24 05/02/24 Range/Units 06:46 06:46 06:46 WBC 14.89 H (4.50-10.00) X 10*3/uL RBC 3.67 L (4.10-5.20) X 10*6/uL Hgb 10.9 L (12.0-15.0) g/dL Hct 32.2 L (37.2-46.3) % RDW 15.4 H (11.5-14.5) % NRBC/100 WBC Diff 0.02 H (0.00-0.01) X 10*3/uL PT 26.8 H (10.0-12.5) sec INR 2.7 H (<1.2) Sodium 129 L (135-145) mmol/L Carbon Dioxide 18.5 L (21.6-31.8) mmol/L Anion Gap 13.50 H (4.00-12.00) mmol/L BUN 41.4 H (9.0-27.0) mg/dL Creatinine 1.8 H (0.6-1.5) mg/dL Est GFR (CKD-EPI) 28 L (>=60) BUN/Creatinine Ratio 23.00 H (12.00-20.00) Ratio Glucose 123 H (70-110) mg/dL Calcium 8.4 L (8.7-10.3) mg/dL Total Bilirubin 0.2 L (0.3-1.2) mg/dL Total Protein 5.5 L (6.2-8.2) g/dL Albumin 3.5 L (3.8-4.9) g/dL Assessment and Plan Assessment: Acute exacerbation of COPD with symptoms of bronchitis. No clear indication for pneumonia though remains on Levaquin Acute decompensated heart failure secondary to above. Chest x-ray is consistent with CHF and pulmonary edema and diuresed Acute hypoxic respiratory failure, recovered and on room air Chronic atrial fibrillation anticoagulated with warfarin, therapeutic Chronic systolic heart failure with an ejection fraction of 30 to 35% Coronary artery disease with recent coronary intervention and stenting of the LAD x 2 done in December 2023 Chronic stage IIIb kidney disease Anemia of chronic disease Hypertension Hyperlipidemia Osteoarthritis Rheumatoid arthritis Migraines Previous history of CVA Previous history of melanoma of the face resected Previous history of diverticulosis Plan: The patient was seen and evaluated Chest x-ray, labs and medications reviewed Stable and on room air Complete a prednisone taper Plan is for home with home care I have personally seen and examined the patient, performed the documentation and the assessment and plan as written. Number of minutes spent on the visit: 10.
--- NOTE | 2024-05-02 15:14 | P.PN ---
Subjective HISTORY OF PRESENTING ILLNESS 78-year-old female known to Dr. Madison. In December 2023 she underwent PCI of LAD by Dr. Madison. Other than that she has past medical history of nonischemic cardiomyopathy, permanent atrial fibrillation, mitral regurgitation with pulmonary hypertension and tricuspid regurgitation. She also has history of hypertension and dyslipidemia with CKD and chronic anemia and COPD. Presented to the hospital because of progressive worsening shortness of breath, chest heaviness symptoms. The symptoms have been gradually progressive getting worse. Admission CXR shows mild pulmonary congestion. No obvious consolidation. Admission ECG shows A-fib with heart rate 89 bpm, left bundle branch block. Left bundle branch block is old for her. Lab shows hemoglobin 9.9, WBC 9.7, sodium 133, potassium 4.1, BUN 31, creatinine 1.4, troponin was negative, BNP 2900. Previously she has had higher BMPs Home medications are aspirin 81 mg, Plavix 75 mg, Imdur 30 mg, metoprolol 12.5 mg twice daily, Aldactone 12.5 mg daily, warfarin, lisinopril 2.5, atorvastatin 40, amiodarone 200 mg daily, Lasix 20 mg daily. Progress note April 29, 2024 Hemoglobin 9.4, creatinine 1.8. On admission 1.4 BP 111/69 heart rate 80 beats minute, atrial fibrillation 04/30 Patient seen and examined. Patient still coughing significantly mild and wheezi ng on exam. States the inhalers, nebulizers briefly help. Her creatinine as well as sodium are getting worse with diuresis and diuretics were held. Blood pressure is borderline however goal map 65 with her decreased ejection fraction. Creatinine today up to 2.1. She admits she has not had much of an appetite and not eating much. 05/01 Patient seen and examined. Patient denies any chest pain or pressure. Still having a dry cough and hoarse voice. She states in the past she has been cardioverted she believes 3 times however did not really feel any different after the cardioversions. We therefore discussed that we will discontinuing the amiodarone due to concern of possible risk of lung toxicity with her lungs artery having a number of issues. Tendon did improve to 1.4 and diuretics have been on hold. 05/02 patient seen and examined. Patient feeling mildly improved in terms of her respiratory standpoint however creatinine worsened to 1.8 and therefore being monitored at least for 1 more day. Blood pressures have been borderline. Her amiodarone was discontinued yesterday and remains in A. fib with controlled ventricular rates. Logan catheter has been in place. Nephrology was consult at. PHYSICAL EXAMINATION Vital signs reviewed. Head: Normocephalic. Eyes: Sclerae nonicteric. Neck: Brisk carotid upstroke, no jugular venous distention. Lungs: On nasal cannula 3 L poor respiratory effort, no crackles audible. Heart: Irregularly irregular pulse, systolic murmur Abdomen: Soft nontender, positive bowel sounds. Extremities: No edema, intact distal pulses. Neuro: Alert, oritented, no focal deficits. Detailed neuro exam was not performed. ASSESSMENT Acute on chronic hypoxic hypercapnic respiratory failure Chronic HFrEF Nonischemic cardiomyopathy, EF 30 to 35%, based off echo in November 2022 Persistent atrial fibrillation, currently rate controlled A-fib Chronic left bundle branch block CAD status post PCI to proximal LAD December 2023 COPD CKD Anemia Echo November 2022, EF 30 to 35%, inferior wall hypokinesia PLAN Patient having cough, wheezing and hoarse voice with no significant crackles on exam and chest x-ray not consistent with heart failure exacerbation. Additionally creatinine worsening with diuretics patient had not been drinking much fluid. Continue to hold diuretics and defer to nephro. Amiodarone was stopped due to possible risk of lung toxicity and given patient is fairly asymptomatic from her A. fib and prior cardioversions she did not feel well or significantly better after. Further rhythm control may be evaluated in the office. Some HEENA and nephro to evaluate. Continue supportive care Objective - Vital Signs Vital signs: Vital Signs Temp 97.6 F 05/02/24 13:58 Pulse 98 05/02/24 13:58 Resp 16 05/02/24 13:58 BP 103/65 05/02/24 13:58 Pulse Ox 100 05/02/24 13:58 FiO2 Intake & Output 05/01/24 05/02/24 05/02/24 18:59 06:59 18:59 Intake Total 150 Output Total 2020 Balance -1870 Weight 83 kg Intake: Intake, IV Titration 150 Amount Levofloxacin 750Mg-D5w 150 Pmx 750 mg In Dextrose/ Water 1 150ml.bag @ 100 mls/hr IVPB Q48H [facility] Rx#: [id number] Output: Urine 2020 Straight 2020 Other: Voiding Method Indwelling Catheter Indwelling Catheter # Voids 2 - Labs CBC & Chem 7: 05/02/24 06:46 05/02/24 06:46 Labs: Abnormal Lab Results - Last 24 Hours (Table) 05/02/24 05/02/24 05/02/24 Range/Units 06:46 06:46 06:46 WBC 14.89 H (4.50-10.00) X 10*3/uL RBC 3.67 L (4.10-5.20) X 10*6/uL Hgb 10.9 L (12.0-15.0) g/dL Hct 32.2 L (37.2-46.3) % RDW 15.4 H (11.5-14.5) % NRBC/100 WBC Diff 0.02 H (0.00-0.01) X 10*3/uL PT 26.8 H (10.0-12.5) sec INR 2.7 H (<1.2) Sodium 129 L (135-145) mmol/L Carbon Dioxide 18.5 L (21.6-31.8) mmol/L Anion Gap 13.50 H (4.00-12.00) mmol/L BUN 41.4 H (9.0-27.0) mg/dL Creatinine 1.8 H (0.6-1.5) mg/dL Est GFR (CKD-EPI) 28 L (>=60) BUN/Creatinine Ratio 23.00 H (12.00-20.00) Ratio Glucose 123 H (70-110) mg/dL Calcium 8.4 L (8.7-10.3) mg/dL Total Bilirubin 0.2 L (0.3-1.2) mg/dL Total Protein 5.5 L (6.2-8.2) g/dL Albumin 3.5 L (3.8-4.9) g/dL
--- NOTE | 2024-05-02 15:58 | XR ---
EXAMINATION TYPE: XR chest 1V portable DATE OF EXAM: 05/02/2024 COMPARISON: 04/28/2024 INDICATION: CHF TECHNIQUE: Single frontal view of the chest is obtained. FINDINGS: The heart size is enlarged. The pulmonary vasculature is mildly prominent. The lungs are clear. IMPRESSION: 1. Consider mild volume overload
--- NOTE | 2024-05-02 16:09 | P.PN ---
Subjective Progress Note Date: 05/02/24 Hospital Course: Patient is a very pleasant 78-year-old female with a past medical history of CAD status post recent stenting (states last stent placed 6 weeks ago), atrial fibrillation/flutter on anticoagulation with Coumadin, chronic systolic heart failure with previously known EF of 30 to 35%, hypertension, COPD not home oxygen dependent, and stage IIIb chronic kidney disease. She presented to the hospital with a chief complaint of chest pain/congestion and progressively worsening shortness of breath x 1 week. Upon arrival to our facility, patient underwent evaluation in the emergency department. Vital signs upon arrival show blood pressure 111/66, heart rate 91, respiratory rate 22, temp 98.0 F, and SpO2 of 98% on room air. EKG was completed showing atrial fibrillation with a controlled ventricular rate at 89 bpm with a left bundle branch block (LBBB is unchanged when compared to previous EKGs completed 01/05/2024). Chest x-ray completed showing cardiomegaly and emphysematous changes. Labs were completed and reviewed. CBC showing leukocytosis with WBC count of 11.7, normocytic anemia with hemoglobin of 9.9. Coagulation profile showing elevated PT of 18.3, INR of 1.8, and PTT of 43.4. D-dimer was negative at 0.29. BMP showing hyponatremia with sodium of 133, hypocarbia with bicarb of 17, and renal function consistent with known stage III CKD with BUN of 31, creatinine 1.40, and GFR of 36. Lactic acid 1.2. Liver profile showing elevated AST of 47 otherwise normal findings. Troponin was negative at less than 0.012. proBNP 2990. Influenza A, influenza B, RSV, and COVID PCR were negative. Patient admitted under our services with consultation to cardiology and pulmonology. Subjective Patient seen this morning. She states that she was straight cathed twice last night and then she had a Logan catheter placed. Patient is also very concerned because we have not restarted her diuretics. Patient also concerned that she has not gotten out of bed. 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 Cardiology is recommending to hold off on the diuretics for now. Per cardiology okay to stop amiodarone due to lung toxicity. -I reviewed note from pulmonology who said patient is stable for discharge from their standpoint. Pulmonology recommended to complete prednisone taper. -Patient currently on Levaquin 750 mg every 48 hours. -Patient on prednisone 40 mg p.o. daily -WBC this morning did increase to 14.86. This could be due to steroids -Patient's creatinine also increased to 1.8. I suspect rising creatinine could be due to urinary retention but also cardiorenal. Logan catheter was inserted. Patient will need to follow-up with her urologist. Will plan to discharge the patient with Logan catheter -Chest x-ray was reviewed independently and shows mild volume overload with vascular congestion. -I will restart patient's diuretic Lasix 20 mg daily -Hold [id number] -Will consult nephrology -Patient worked with physical therapy and was deemed stable for discharge home with home care -Resume aspirin 81 mg p.o. daily, Plavix 75 mg p.o. daily, metoprolol 12.5 mg p.o. twice daily -Continue with warfarin pharmacy to dose Anemia of chronic disease -Hemoglobin at baseline. DVT prophylaxis: Therapeutic INR and on Coumadin Disposition: Anticipate patient be ready for discharge tomorrow if creatinine is trending down. Objective - Vital Signs Vital signs: Vital Signs Temp 97.6 F 05/02/24 13:58 Pulse 65 05/02/24 15:56 Resp 16 05/02/24 13:58 BP 103/65 05/02/24 13:58 Pulse Ox 100 05/02/24 13:58 FiO2 Intake & Output 05/01/24 05/02/24 05/02/24 18:59 06:59 18:59 Intake Total 150 Output Total 2020 Balance -1870 Weight 83 kg Intake: Intake, IV Titration 150 Amount Levofloxacin 750Mg-D5w 150 Pmx 750 mg In Dextrose/ Water 1 150ml.bag @ 100 mls/hr IVPB Q48H [facility] Rx#: [id number] Output: Urine 2020 Straight 2020 Other: Voiding Method Indwelling Catheter Indwelling Catheter # Voids 2 - Labs CBC & Chem 7: 05/02/24 06:46 05/02/24 06:46 Labs: Abnormal Lab Results - Last 24 Hours (Table) 05/02/24 05/02/24 05/02/24 Range/Units 06:46 06:46 06:46 WBC 14.89 H (4.50-10.00) X 10*3/uL RBC 3.67 L (4.10-5.20) X 10*6/uL Hgb 10.9 L (12.0-15.0) g/dL Hct 32.2 L (37.2-46.3) % RDW 15.4 H (11.5-14.5) % NRBC/100 WBC Diff 0.02 H (0.00-0.01) X 10*3/uL PT 26.8 H (10.0-12.5) sec INR 2.7 H (<1.2) Sodium 129 L (135-145) mmol/L Carbon Dioxide 18.5 L (21.6-31.8) mmol/L Anion Gap 13.50 H (4.00-12.00) mmol/L BUN 41.4 H (9.0-27.0) mg/dL Creatinine 1.8 H (0.6-1.5) mg/dL Est GFR (CKD-EPI) 28 L (>=60) BUN/Creatinine Ratio 23.00 H (12.00-20.00) Ratio Glucose 123 H (70-110) mg/dL Calcium 8.4 L (8.7-10.3) mg/dL Total Bilirubin 0.2 L (0.3-1.2) mg/dL Total Protein 5.5 L (6.2-8.2) g/dL Albumin 3.5 L (3.8-4.9) g/dL
[2024-05-02] MEDS: FUROSEMIDE 20 MG TAB PO SCH (16:46)
[2024-05-02] MEDS: WARFARIN 2 MG TAB PO ONE (16:46)
[2024-05-03 07:25] LABS: INR 3.3 (<1.2); Prothrombin Time 32.3 sec (10.0-12.5)
[2024-05-03 10:55] LABS: Basophils # (A) 0.07 X 10*3/uL (0.00-0.10); Basophils % (A) 0.5 %; Eosinophils # (A) 0 X 10*3/uL (0.04-0.35); Eosinophils % (A) 0 %; HCT 33.5 % (37.2-46.3); HGB 11.1 g/dL (12.0-15.0); Lymphocytes % (A) 5.2 %; MCH 29.6 pg (27.0-32.0); MCHC 33.1 g/dL (32.0-37.0); MCV 89.3 FL (80.0-97.0); Mean Platelet Volume 10.2 FL (9.5-12.2); Monocytes # (A) 1.47 X 10*3/uL (0.20-1.00); Monocytes % (A) 10.9 %; NRBC Per 100 WBC 0 X 10*3/uL (0.00-0.01); Neutrophils # (A) 10.75 X 10*3/uL (1.80-7.70); Neutrophils % (A) 79.7 %; Platelet Count 350 X 10*3/uL (140-440); RBC 3.75 X 10*6/uL (4.10-5.20); RDW 15.5 % (11.5-14.5); WBC 13.49 X 10*3/uL (4.50-10.00)
[2024-05-03 10:56] LABS: BUN/Creat Ratio 25.53 Ratio (12.00-20.00); Blood Urea Nitrogen 43.4 mg/dL (9.0-27.0); Calcium 8.3 mg/dL (8.7-10.3); Chloride 97 mmol/L (96-109); Glucose 111 mg/dL (70-110); Magnesium 2.3 mg/dL (1.5-2.4); Potassium 4.4 mmol/L (3.5-5.5); Sodium 129 mmol/L (135-145)
--- NOTE | 2024-05-03 12:25 | P.NPCON ---
History of Present Illness - Reason for Consult Consult date: 05/03/24 - History of Present Illness Patient is a 78-year-old female who is being consulted for increasing creatinine. She has history of chronic kidney disease stage IIIa-b with baseline creatinine 1.3-1.5. Admitted to hospital with complaints of shortness of breath and chest pain. She is being treated for CHF exacerbation and COPD exacerbation. Patient is being diuresed IV lasix 40mg q12h and is now on oral 20mg daily. She has been hypotensive with systolic in the 90s on 04/28/2024 and 04/29/2024. Her home WILL inhibitors are now held. She was noted to have urinary retention; Logan catheter was placed after two straight catheterizations. No history of NSAID use. Past Medical History Past Medical History: Atrial Flutter, Asthma, Cancer, COPD, CVA/TIA, GERD/Reflux, GI Bleed, Hyperlipidemia, Hypertension, Memory Impairment, Myocardial Infarction ([place]), Osteoarthritis (OA), Renal Disease, Rheumatoid Arthritis (RA) Additional Past Medical History / Comment(s): Chronic cough. Back pain, migraines. residual from stroke,Occasional slight difficulty with swallowing. Hx gastic ulcer, H-Pylori, diverticulitis, hx melanoma on face X2. Hx kidney stones, "kidney function low", raynauds disease. recent stress test at Dr Castorena's office pt had chest pain-transferred to hospital heart cath unable to place stent at that time per pt. Last Myocardial Infarction Date:: 2012 History of Any Multi-Drug Resistant Organisms: None Reported Past Surgical History: Back Surgery, Cholecystectomy, Heart Catheterization, Hysterectomy, Joint Replacement, Orthopedic Surgery Additional Past Surgical History / Comment(s): RODS & CAGES IN BACK, RIGHT HIP REPLACEMENT, PARTIAL THYROIDECTOMY, BILATERAL KNEE REPLACEMENTS, NECK SURGERY WITH LIDIA AND CAGES, MELANOMA REMOVED FROM FACE X4, REPAIR OF HEMATOMA/FEMORAL ARTERY AFTER HEART CATHETERIZATION,rt foot bone spur removed Past Anesthesia/Blood Transfusion Reactions: Previous Problems w/ Anesthesia, Postoperative Nausea & Vomiting (PONV) Additional Past Anesthesia/Blood Transfusion Reaction / Comment(s): Hard to wake up. Past Psychological History: No Psychological Hx Reported Smoking Status: Never smoker Past Alcohol Use History: None Reported Past Drug Use History: None Reported - Past Family History Sister(s) Family Medical History: Cancer Brother(s) Family Medical History: Cancer Mother Family Medical History: Myocardial Infarction ([place]) Additional Family Medical History / Comment(s): Mother of a [place] at the age of 76yrs. Father History Unknown: Yes Family Medical History: Chest Pain / Angina Medications and Allergies Home Medications Medication Instructions Recorded Confirmed Type Pantoprazole Sodium [Protonix] 40 mg PO BID 05/14/14 04/27/24 History Cyanocobalamin (Vitamin B-12) 1,000 mcg PO DAILY 06/16/22 04/27/24 History [Vitamin B-12] Lysine 1,000 mg PO DAILY 08/03/22 04/27/24 History Warfarin Sodium 4 mg PO MOFR@209912/07/22 04/27/24 History Amiodarone [Cordarone] 200 mg PO DAILY 01/24/23 04/27/24 History Spironolactone [Aldactone] 12.5 mg PO DAILY 01/24/23 04/27/24 History Warfarin Sodium 2 mg PO SUTUWETHSA@209901/25/23 04/27/24 History DULoxetine HCL [Cymbalta] 60 mg PO DAILY 07/27/23 04/27/24 History Ipratropium Nebulized [Atrovent 0.5 mg INHALATION RT-BID 07/27/23 04/27/24 History Nebulized 0.2 MG/ML] lisinopriL [Zestril] 2.5 mg PO DAILY 07/27/23 04/27/24 History Pregabalin [Lyrica] 100 mg PO BID #6 cap 08/04/23 04/27/24 Rx Acetaminophen [Tylenol Extra 1,000 mg PO Q6H PRN 12/22/23 04/27/24 History Strength] Albuterol Inhaler [Ventolin Hfa 2 puff INHALATION RT-Q6H PRN 12/22/23 04/27/24 History Inhaler] Cholecalciferol (Vitamin D3) 50 mcg PO DAILY 12/22/23 04/27/24 History [Vitamin D3 (50 Mcg = 2000 Iu)] Furosemide [Lasix] 20 mg PO DAILY 12/22/23 04/27/24 History Glucosam/Chond/Hyalu/Cf Borate 1 tab PO DAILY 12/22/23 04/27/24 History [Move Free Joint Health Tablet] Vit C/E/Zn/Coppr/Lutein/Zeaxan 1 cap PO DAILY 12/22/23 04/27/24 History [Preservision Areds 2 Softgel] Atorvastatin [Lipitor] 40 mg PO HS #90 tab 12/25/23 04/27/24 Rx Aspirin 81 mg PO DAILY #7 tab 01/06/24 04/27/24 Rx Clopidogrel [Plavix] 75 mg PO DAILY #90 tab 01/06/24 04/27/24 Rx Isosorbide Mononitrate ER [Imdur] 30 mg PO DAILY #90 tab 01/06/24 04/27/24 Rx Metoprolol Tartrate [Lopressor] 12.5 mg PO BID #60 tab 01/06/24 04/27/24 Rx estradioL 2 mg PO DAILY 04/27/24 04/27/24 History Allergies Allergy/AdvReac Type Severity Reaction Status Date / Time cephalexin monohydrate Allergy Rash/Hives Verified 04/27/24 16:40 [From Keflex] diphenhydramine HCl Allergy SWELLING Verified 04/27/24 16:40 [From Benadryl] OF TONGUE, SOB enoxaparin [From Lovenox] Allergy Rash/Hives Verified 04/27/24 16:40 Penicillins Allergy SWELLING, Verified 04/27/24 16:40 HIVES sulfamethoxazole Allergy Anaphylaxis, Verified 04/27/24 16:40 [From Bactrim] Swelling trimethoprim [From Bactrim] Allergy Anaphylaxis, Verified 04/27/24 16:40 Swelling aspirin AdvReac EXCESS Verified 04/27/24 16:40 BLEEDING garlic AdvReac Nausea Verified 04/27/24 16:40 milk AdvReac Abdominal Verified 04/27/24 16:40 Pain morphine AdvReac Vomiting Verified 04/27/24 16:40 milk chocolate AdvReac Nausea Uncoded 04/27/24 12:31 Physical Exam Vitals: Vital Signs Temp Pulse Pulse Resp BP Pulse Ox 05/03/24 08:02 88 05/03/24 07:50 89 100 05/03/24 06:58 97.3 F L 95 18 115/75 98 05/03/24 01:29 97.6 F 80 16 110/72 100 05/02/24 20:46 68 05/02/24 20:38 66 05/02/24 19:29 97.4 F L 73 17 118/68 97 07/10/24 15:56 65 05/02/24 15:44 69 05/02/24 13:58 97.6 F 98 16 103/65 100 05/02/24 12:05 71 05/02/24 11:51 75 16 Intake and Output 05/02/24 05/03/24 05/03/24 22:59 06:59 14:59 Output Total 850 1600 Balance -850 -1600 Output: Urine 850 1600 Other: Voiding Method Indwelling Catheter Weight 70 kg Vitals signs are stable. General: No acute distress. Heart: Regular rate and rhythm present. Lungs: Bilateral breath sounds present; no rhonchi, wheezes, or rales. Abdomen: Soft, nontender. Extremities: No edema present. 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 Results - Lab Results Most recent lab results ABG pH 7.28 (7.35-7.45) L 04/27/24 22:37 ABG pCO2 34 mmHg (35-45) L 04/27/24 22:37 ABG pO2 73 mmHg (83-108) L 04/27/24 22:37 ABG HCO3 16 mmol/L (21-25) L 04/27/24 22:37 ABG O2 Saturation 91.9 % (94-97) L 04/27/24 22:37 Calcium 8.4 mg/dL (8.7-10.3) L 05/02/24 06:46 Magnesium 2.3 mg/dL (1.5-2.4) 05/02/24 06:46 05/03/24 06:29 05/03/24 06:29 Assessment and Plan Assessment: 1. Acute kidney injury. Nonoliguric ATN from low blood pressure, cardiorenal syndrome. Component of urinary retention is noted, currently with Logan catheter. WILL inhibitors on hold. Diuretics have been decreased. Check UA and ultrasound. 2. Chronic kidney disease stage IIIa with baseline creatinine 1.3-1.5. Etiology is nephrosclerosis. 3. CHF exacerbation. Acute on chronic systolic with EF 30-35% on echo in November 2022. 4. Persistent Afib-rate is controlled on metoprolol; anticoagulation with Coumadin. 5. Hyponatremia, hypervolemic. Maintained on diuretics. 6. COPD exacerbation maintained on steroids. Plan: Continue with Lasix; increase dose to 40mg twice daily. Continue with accurate Is/Os. Check UA. Check ultrasound of kidneys. OK to add SGLT2 inhibitors. Repeat labs in the morning. Continue to hold lisinopril for now, can likely resume in 1-2 days when renal function more stable. Patient is seen and examined with the resident. Agree with A/plan. Chidi Woods MD
[2024-05-03 12:54] LABS: Appearance,Urine Clear (Clear); Bacteria,Urine Rare /hpf; Bilirubin,Urine Negative (Negative); Blood,Urine Large (Negative); Color,Urine Colorless; Glucose,Urine (UA) Negative (Negative); Ketones,Urine Negative (Negative); Leukocyte Esterase,Urine Moderate (Negative); Mucus,Urine Rare /hpf; Nitrite,Urine Negative (Negative); Protein,Urine Negative (Negative); RBC,Urine >182 /hpf (0-5); Specific Gravity,Urine 1.009 (1.001-1.035); Squamous Epithelial Cell,Urine 1 /hpf (0-4); Urobilinogen,Urine <2.0 mg/dL (<2.0); WBC,Urine 6 /hpf (0-5)
--- NOTE | 2024-05-03 14:23 | P.PN ---
Subjective Progress Note Date: 05/03/24 This is a pleasant 78-year-old female patient who is currently hospitalized for worsening shortness of breath, cough, congestion, excessive sputum production, bronchospasm and wheezing. Note that her asthma was also admitted to the hospital for similar symptoms. She is known to have coronary artery disease. She is a bit complex coronary angioplasty and stenting and she suffers from chronic atrial fibrillation she is back in anticoagulation with warfarin. She has also systolic heart failure with an ejection fraction of 30 to 35% and chronic stage IIIb kidney disease. Upon arrival to the emergency, the patient was quite short of breath. Likely just level was at 1.2. The viral screen came back negative. The chest x-ray was consistent with CHF and pulmonary edema. Overnight, the patient became more short of breath. The patient was given additional dose of Lasix and she is feeling better at this point in time. No nausea. No vomiting. No abdominal pain. No change in mental status. The white cell count is at 10.2, hemoglobin 10.7, serum bicarb is at 18 with a BUN of 29 and a creatinine 1.4 and sodium is at 138. She is currently sitting up on the chair comfortably on 40s of oxygen by nasal cannula. Her last coronary intervention was in December 2023. At that time, the patient underwent stenting of the mid LAD and proximal LAD through the left radial artery approach. Her curre nt INR is at 1.8. 04/29/2024, the patient is being seen for a follow-up. Still bronchospastic. Still having coughing episodes. Still congested and wheezy. The patient is on a combination bronchodilators. The patient is also on steroids. The patient is also on diuretics and the patient is to be Lasix 40 mg IV every 12 hours. Negative fluid balance. She remains on oxygen at 3 L/min nasal cannula. Sputum culture still pending. Blood cultures are still negative. The white cell 11.3 with a hemoglobin of 0.4, INR is at 2.3 and the patient remains on warfarin. He has 29 with a creatinine of 1.4 from yesterday. Awaiting labs from today in terms of electrolytes and renal function. No interval worsening shortness of breath. Some improvement since yesterday. The patient is seen today April 30, 2024 in follow-up on the regular medical floor. She is awake and alert in no acute distress. Currently sitting up in a chair. She is maintaining O2 saturations in the 90s on 3 L/min per nasal cannula. Sputum culture is positive for haemophilus influenza. INR 2.3. White count 10.4. Hemoglobin 10.4. Platelets 331. Sodium 129. Potassium 3.8. Bicarb 18. BUN 51. Creatinine 2.1. Glucose 182. She is continued on bronchodilators, Solu-Medrol. Antibiotics in the form of Levaquin. Anticoagulated with warfarin. Remains on Bumex. Currently in a -1.1 L balance. The patient is seen today May 01, 2024 in follow-up on the regular medical floor. She is currently sitting up in a chair. Awake and alert in no acute distress. Breathing better today compared to yesterday. Still with a dry cough. Still with some chest wall pain from coughing. She is maintaining O2 saturations in the 90s on room air. She has been afebrile. Hemodynamically stable. Sputum culture was positive for H flu. Blood cultures revealed no growth. White count 9.0. Hemoglobin 11.2. Platelets 376. Sodium 128. Potassium 4.1. Bicarb 18. BUN 44. Creatinine 1.45. Glucose 129. She is continued on Levaquin. Remains on bronchodilators and steroids. Robitussin for cough. The patient is seen today May 02, 2024 in follow-up on the regular medical floor. She is resting comfortably in bed. Awake and alert in no acute distress. Maintaining O2 saturations in the 90s on room air. INR 2.7. Follow- up chest x-ray is unchanged. No worsening infiltrates. Sputum culture was positive for haemophilus influenza back on 04/27/2024. White count 14.8. Hemoglobin 10.9. Platelets 381. Sodium 129. Potassium 4.2. Bicarb 18. BUN 41. Creatinine 1.8. Glucose 123. Remains on bronchodilators. Antibiotics in the form of Levaquin. Prednisone taper. The patient is seen today May 03, 2024 in follow-up on the regular medical floor. She is resting in bed. Awake and alert in no acute distress. She is feeling better. She is continues with a dry nonproductive cough. She is maintaining O2 saturations up to 100% on 3 L/min per nasal cannula. Sputum culture was positive for haemophilus influenza. Blood cultures revealed no growth. White count 13.4. Hemoglobin 11.1. Platelets 350. INR 3.3. Sodium 129. Potassium 4.4. Bicarb 20. BUN 43. Creatinine 1.7. Glucose 111. Urinalysis with large blood, moderate leukocyte esterase, high RBCs and high WBCs. Ultrasound of the abdomen/bladder is pending. Nephrology is following. Objective - Vital Signs Vital signs: Vital Signs Temp 97.3 F L 05/03/24 06:58 Pulse 80 05/03/24 11:45 Resp 18 05/03/24 06:58 BP 115/75 05/03/24 06:58 Pulse Ox 100 05/03/24 07:50 FiO2 Intake & Output 05/02/24 05/03/24 05/03/24 18:59 06:59 18:59 Output Total 850 1600 Balance -850 -1600 Weight 70 kg Output: Urine 850 1600 Other: Voiding Method Indwelling Catheter Indwelling Catheter Indwelling Catheter - Exam GENERAL EXAM: Alert, pleasant 78-year-old female, sitting up in bed, on 3 L nasal cannula, in no apparent distress. HEAD: Normocephalic. EYES: Normal reaction of pupils, equal size. NOSE: Clear with pink turbinates. THROAT: No erythema or exudates. NECK: No masses, no JVD. CHEST: No chest wall deformity. LUNGS: Equal air entry with faint crackles in the posterior bases. CVS: S1 and S2 normal with no audible murmur, regular rhythm. ABDOMEN: No hepatosplenomegaly, normal bowel sounds, no guarding or rigidity. SPINE: No scoliosis or deformity SKIN: No rashes CENTRAL NERVOUS SYSTEM: No focal deficits, tone is normal in all 4 extremities. EXTREMITIES: There is no peripheral edema. No clubbing, no cyanosis. Peripheral pulses are intact. - Labs CBC & Chem 7: 05/03/24 06:29 05/03/24 06:29 Labs: Abnormal Lab Results - Last 24 Hours (Table) 05/03/24 05/03/24 05/03/24 Range/Units 06:29 06:29 06:29 WBC 13.49 H (4.50-10.00) X 10*3/uL RBC 3.75 L (4.10-5.20) X 10*6/uL Hgb 11.1 L (12.0-15.0) g/dL Hct 33.5 L (37.2-46.3) % RDW 15.5 H (11.5-14.5) % Immature Gran # 0.50 H (0.00-0.04) X 10*3/uL Neutrophils # 10.75 H (1.80-7.70) X 10*3/uL Lymphocytes # 0.70 L (0.90-5.00) X 10*3/uL Monocytes # 1.47 H (0.20-1.00) X 10*3/uL Eosinophils # 0 L (0.04-0.35) X 10*3/uL PT 32.3 H (10.0-12.5) sec INR 3.3 H (<1.2) Sodium 129 L (135-145) mmol/L Carbon Dioxide 20.0 L (21.6-31.8) mmol/L BUN 43.4 H (9.0-27.0) mg/dL Creatinine 1.7 H (0.6-1.5) mg/dL Est GFR (CKD-EPI) 30 L (>=60) BUN/Creatinine Ratio 25.53 H (12.00-20.00) Ratio Glucose 111 H (70-110) mg/dL Calcium 8.3 L (8.7-10.3) mg/dL Urine Blood (Negative) Ur Leukocyte Esterase (Negative) Urine RBC (0-5) /hpf Urine WBC (0-5) /hpf Urine Bacteria (None) /hpf Urine Mucus (None) /hpf 05/03/24 Range/Units 12:19 WBC (4.50-10.00) X 10*3/uL RBC (4.10-5.20) X 10*6/uL Hgb (12.0-15.0) g/dL Hct (37.2-46.3) % RDW (11.5-14.5) % Immature Gran # (0.00-0.04) X 10*3/uL Neutrophils # (1.80-7.70) X 10*3/uL Lymphocytes # (0.90-5.00) X 10*3/uL Monocytes # (0.20-1.00) X 10*3/uL Eosinophils # (0.04-0.35) X 10*3/uL PT (10.0-12.5) sec INR (<1.2) Sodium (135-145) mmol/L Carbon Dioxide (21.6-31.8) mmol/L BUN (9.0-27.0) mg/dL Creatinine (0.6-1.5) mg/dL Est GFR (CKD-EPI) (>=60) BUN/Creatinine Ratio (12.00-20.00) Ratio Glucose (70-110) mg/dL Calcium (8.7-10.3) mg/dL Urine Blood Large H (Negative) Ur Leukocyte Esterase Moderate H (Negative) Urine RBC >182 H (0-5) /hpf Urine WBC 6 H (0-5) /hpf Urine Bacteria Rare H (None) /hpf Urine Mucus Rare H (None) /hpf Microbiology - Last 24 Hours (Table) 04/27/24 16:38 Blood Culture - Final Blood 04/27/24 16:30 Blood Culture - Final Blood Assessment and Plan Assessment: Acute exacerbation of COPD with symptoms of bronchitis. No clear indication for pneumonia though remains on Levaquin Acute decompensated heart failure secondary to above. Chest x-ray is consistent with CHF and pulmonary edema and diuresed Acute hypoxic respiratory failure secondary to above, on 3 L nasal cannula Acute on chronic stage IIIb kidney disease Chronic atrial fibrillation anticoagulated with warfarin, therapeutic Chronic systolic heart failure with an ejection fraction of 30 to 35% Coronary artery disease with recent coronary intervention and stenting of the LAD x 2 done in December 2023 Anemia of chronic disease Hypertension Hyperlipidemia Osteoarthritis Rheumatoid arthritis Migraines Previous history of CVA Previous history of melanoma of the face resected Previous history of diverticulosis Plan: The patient was seen and evaluated Labs and medications reviewed Stable and on 3 L nasal cannula Complete a prednisone taper Neurology consulted for acute kidney injury Plan is for home with home care I have personally seen and examined the patient, performed the documentation and the assessment and plan as written. Number of minutes spent on the visit: 10.
--- NOTE | 2024-05-03 15:51 | P.PN ---
Subjective Progress Note Date: 05/03/24 Hospital Course: Patient is a very pleasant 78-year-old female with a past medical history of CAD status post recent stenting (states last stent placed 6 weeks ago), atrial fibrillation/flutter on anticoagulation with Coumadin, chronic systolic heart failure with previously known EF of 30 to 35%, hypertension, COPD not home oxygen dependent, and stage IIIb chronic kidney disease. She presented to the hospital with a chief complaint of chest pain/congestion and progressively worsening shortness of breath x 1 week. Upon arrival to our facility, patient underwent evaluation in the emergency department. Vital signs upon arrival show blood pressure 111/66, heart rate 91, respiratory rate 22, temp 98.0 F, and SpO2 of 98% on room air. EKG was completed showing atrial fibrillation with a controlled ventricular rate at 89 bpm with a left bundle branch block (LBBB is unchanged when compared to previous EKGs completed 01/05/2024). Chest x-ray completed showing cardiomegaly and emphysematous changes. Labs were completed and reviewed. CBC showing leukocytosis with WBC count of 11.7, normocytic anemia with hemoglobin of 9.9. Coagulation profile showing elevated PT of 18.3, INR of 1.8, and PTT of 43.4. D-dimer was negative at 0.29. BMP showing hyponatremia with sodium of 133, hypocarbia with bicarb of 17, and renal function consistent with known stage III CKD with BUN of 31, creatinine 1.40, and GFR of 36. Lactic acid 1.2. Liver profile showing elevated AST of 47 otherwise normal findings. Troponin was negative at less than 0.012. proBNP 2990. Influenza A, influenza B, RSV, and COVID PCR were negative. Patient admitted under our services with consultation to cardiology and pulmonology. Subjective Patient seen this morning. She states that she was straight cathed twice last night and then she had a Logan catheter placed. Patient is also very concerned because we have not restarted her diuretics. Patient also concerned that she has not gotten out of bed. 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 -I reviewed note from pulmonology who said patient is stable for discharge from their standpoint. Pulmonology recommended to complete prednisone taper. -Patient currently on Levaquin 750 mg every 48 hours. -Patient on prednisone 40 mg p.o. daily -WBC this morning decreased. -Repeat chest x-ray on 05/02/2024 showed mild volume overload -Nephrology started the patient on IV Lasix 40 mg twice daily -Renal function this morning is slightly better at 1.7 -Hold lisinopril -Patient worked with physical therapy and was deemed stable for discharge home with home care -Resume aspirin 81 mg p.o. daily, Plavix 75 mg p.o. daily, metoprolol 12.5 mg p.o. twice daily -Continue with warfarin pharmacy to dose -Patient currently satting well on room air Anemia of chronic disease -Hemoglobin at baseline. DVT prophylaxis: Therapeutic INR and on Coumadin Disposition: Anticipate patient be ready for discharge tomorrow if creatinine is trending down and nephrology switches the patient to oral diuretics. Objective - Vital Signs Vital signs: Vital Signs Temp 97.3 F L 05/03/24 14:00 Pulse 72 05/03/24 15:32 Resp 18 05/03/24 14:00 BP 105/65 05/03/24 14:00 Pulse Ox 99 05/03/24 14:00 FiO2 Intake & Output 05/02/24 05/03/24 05/03/24 18:59 06:59 18:59 Output Total 850 1600 Balance -850 -1600 Weight 70 kg Output: Urine 850 1600 Other: Voiding Method Indwelling Catheter Indwelling Catheter Indwelling Catheter - Labs CBC & Chem 7: 05/03/24 06:29 05/03/24 06:29 Labs: Abnormal Lab Results - Last 24 Hours (Table) 05/03/24 05/03/24 05/03/24 Range/Units 06:29 06:29 06:29 WBC 13.49 H (4.50-10.00) X 10*3/uL RBC 3.75 L (4.10-5.20) X 10*6/uL Hgb 11.1 L (12.0-15.0) g/dL Hct 33.5 L (37.2-46.3) % RDW 15.5 H (11.5-14.5) % Immature Gran # 0.50 H (0.00-0.04) X 10*3/uL Neutrophils # 10.75 H (1.80-7.70) X 10*3/uL Lymphocytes # 0.70 L (0.90-5.00) X 10*3/uL Monocytes # 1.47 H (0.20-1.00) X 10*3/uL Eosinophils # 0 L (0.04-0.35) X 10*3/uL PT 32.3 H (10.0-12.5) sec INR 3.3 H (<1.2) Sodium 129 L (135-145) mmol/L Carbon Dioxide 20.0 L (21.6-31.8) mmol/L BUN 43.4 H (9.0-27.0) mg/dL Creatinine 1.7 H (0.6-1.5) mg/dL Est GFR (CKD-EPI) 30 L (>=60) BUN/Creatinine Ratio 25.53 H (12.00-20.00) Ratio Glucose 111 H (70-110) mg/dL Calcium 8.3 L (8.7-10.3) mg/dL Urine Blood (Negative) Ur Leukocyte Esterase (Negative) Urine RBC (0-5) /hpf Urine WBC (0-5) /hpf Urine Bacteria (None) /hpf Urine Mucus (None) /hpf 05/03/24 Range/Units 12:19 WBC (4.50-10.00) X 10*3/uL RBC (4.10-5.20) X 10*6/uL Hgb (12.0-15.0) g/dL Hct (37.2-46.3) % RDW (11.5-14.5) % Immature Gran # (0.00-0.04) X 10*3/uL Neutrophils # (1.80-7.70) X 10*3/uL Lymphocytes # (0.90-5.00) X 10*3/uL Monocytes # (0.20-1.00) X 10*3/uL Eosinophils # (0.04-0.35) X 10*3/uL PT (10.0-12.5) sec INR (<1.2) Sodium (135-145) mmol/L Carbon Dioxide (21.6-31.8) mmol/L BUN (9.0-27.0) mg/dL Creatinine (0.6-1.5) mg/dL Est GFR (CKD-EPI) (>=60) BUN/Creatinine Ratio (12.00-20.00) Ratio Glucose (70-110) mg/dL Calcium (8.7-10.3) mg/dL Urine Blood Large H (Negative) Ur Leukocyte Esterase Moderate H (Negative) Urine RBC >182 H (0-5) /hpf Urine WBC 6 H (0-5) /hpf Urine Bacteria Rare H (None) /hpf Urine Mucus Rare H (None) /hpf Microbiology - Last 24 Hours (Table) 04/27/24 16:38 Blood Culture - Final Blood 04/27/24 16:30 Blood Culture - Final Blood
[2024-05-03] MEDS ORDERED: FUROSEMIDE 40 MG TAB PO SCH (16:00)
[2024-05-03] MEDS: WARFARIN 0.5 MG TAB PO ONE (17:23)
[2024-05-03] MEDS: FUROSEMIDE 10 MG/ML 4 ML VIAL IV SCH (20:57)
--- NOTE | 2024-05-03 22:16 | US ---
EXAMINATION TYPE: US kidneys/renal and bladder DATE OF EXAM: 05/03/2024 COMPARISON: Multiple CT 01/24/2023 US 12/10/2022 CLINICAL INDICATION: Female, 78 years old with history of ankur; Inconsistent renal values x 1 year; dylan morgan denies any signs or symptoms at this time EXAM MEASUREMENTS: Right Kidney: 9.8 x 5.3 x 4.6 cm Left Kidney: 10.9 x 5.1 x 4.4 cm Post Void Residual Volume: NA mL Right Kidney: Simple cyst seen = 2.6 x 2.9 x 2.5 cm Left Kidney: Unremarkable Bladder: Not distended Bilateral Jets seen: Not able to assess Normal Post Void Residual: NA There is no evidence for hydronephrosis at this point in time. No nephrolithiasis is seen. IMPRESSION: 1. Small right renal simple cyst
[2024-05-04 06:39] LABS: African American GFR (CKD) 30 (>60 ml/min/1.73 sqM); Anion Gap 10 mmol/L; Blood Urea Nitrogen 56 mg/dL (7-17); Calcium 8.5 mg/dL (8.4-10.2); Carbon Dioxide 22 mmol/L (22-30); Chloride 99 mmol/L (98-107); Glucose 97 mg/dL (74-99); Non-African American GFR(CKD) 26 (>60 ml/min/1.73 sqM); Sodium 131 mmol/L (137-145)
[2024-05-04 07:44] LABS: INR 2.6 (<1.2); Prothrombin Time 25.3 sec (10.0-12.5)
[2024-05-04 08:50] LABS: HGB 11.9 g/dL (12.0-15.0); MCH 29.5 pg (27.0-32.0); MCHC 33.1 g/dL (32.0-37.0); MCV 89.1 FL (80.0-97.0); Mean Platelet Volume 10.2 FL (9.5-12.2); NRBC Per 100 WBC 0 X 10*3/uL (0.00-0.01); Platelet Count 384 X 10*3/uL (140-440); RBC 4.04 X 10*6/uL (4.10-5.20); RDW 15.6 % (11.5-14.5); WBC 16.66 X 10*3/uL (4.50-10.00)
--- NOTE | 2024-05-04 13:08 | P.PN ---
Subjective Progress Note Date: 05/04/24 Principal diagnosis: shortness of breath patient had a bad coughing spell this morning, was bringing up yellow thick phlegm. Denies any chest pain. No fevers or chills. No other overnight events. Objective - Vital Signs Vital signs: Vital Signs Temp 97.3 F L 05/04/24 06:48 Pulse 72 05/04/24 12:43 Resp 18 05/04/24 06:48 BP 121/75 05/04/24 06:48 Pulse Ox 95 05/04/24 08:36 FiO2 Intake & Output 05/03/24 05/04/24 05/04/24 18:59 06:59 18:59 Output Total 780 2300 Balance -780 -2300 Weight 78.7 kg Output: Urine 780 2300 Other: Voiding Method Indwelling Catheter Indwelling Catheter Indwelling Catheter - Exam Constitutional: No acute distress, conversant, pleasant Eyes:Anicteric sclerae, moist conjunctiva, no lid-lag, PERRLA, ENMT: Oropharynx clear, no erythema, exudates Neck: Supple, FROM, no masses, or JVD, No carotid bruits, No thyromegaly Lungs: scattered rhonchi, Clear to percussion, Normal respiratory effort, no accessory muscle use Cardiovascular: Heart regular in rate and rhythm, No murmurs, gallops, or rubs, No peripheral edema Abdominal: Soft, Nontender, no guarding, rebound or rigidity, Normoactive bowel sounds, No hepatomegaly, No splenomegaly, No palpable mass Skin: Normal temperature, tone, texture, turgor, no induration, No subcutaneous nodules, No rash, lesions, No ulcers Extremities: No digital cyanosis, No clubbing, Pedal pulses intact and symmetrical, Radial pulses intact and symmetrical, No calf tenderness Psychiatric: Alert and oriented to person, place and time, appropriate affect, intact judgement Neuro: Muscles Strength 5/5 in all 4 extremities, Sensation to light touch grossly present throughout, Cranial nerves II-XII grossly intact, no focal sensory deficits - Labs CBC & Chem 7: 05/04/24 05:54 05/04/24 05:54 Labs: Abnormal Lab Results - Last 24 Hours (Table) 05/04/24 05/04/24 05/04/24 Range/Units 05:54 05:54 05:54 WBC 16.66 H (4.50-10.00) X 10*3/uL RBC 4.04 L (4.10-5.20) X 10*6/uL Hgb 11.9 L (12.0-15.0) g/dL Hct 36.0 L (37.2-46.3) % RDW 15.6 H (11.5-14.5) % PT 25.3 H (10.0-12.5) sec INR 2.6 H (<1.2) Sodium 131 L (137-145) mmol/L BUN 56 H (7-17) mg/dL Creatinine 1.84 H (0.52-1.04) mg/dL Assessment and Plan Plan: Acute respiratory failure with hypoxia Haemophillus influenzae Infection COPD exacerbation Acute on chronic systolic heart failure Hyponatremia Acute kidney injury could be due to urinary retention Chest pain, acute coronary event ruled out Subtherapeutic INR, resolved currently therapeutic History of CAD status post stenting Chronic atrial fibrillation -Cardiology stopped amiodarone due to lung toxicity. -Patient had walking O2 evaluation on 05/03 evening and she dropped down to the 80s on room air. Afterwards she was started on oxygen. -Lasix started by nephrology service on 05/03, creatinine plateauing at 1.8. Hold lisinopril -according to pulmonary patient is stable for discharge from their standpoint. Pulmonology recommended to complete prednisone taper. -Patient currently on Levaquin 750 mg every 48 hours. -Patient on prednisone 40 mg p.o. daily -Patient worked with physical therapy and was deemed stable for discharge home with home care -Resume aspirin 81 mg p.o. daily, Plavix 75 mg p.o. daily, metoprolol 12.5 mg p.o. twice daily -Continue with warfarin pharmacy to dose Anemia of chronic disease -Hemoglobin at baseline. DVT prophylaxis: Therapeutic INR and on Coumadin
--- NOTE | 2024-05-04 13:27 | P.PN ---
Subjective Progress Note Date: 05/04/24 This is a pleasant 78-year-old female patient who is currently hospitalized for worsening shortness of breath, cough, congestion, excessive sputum production, bronchospasm and wheezing. Note that her asthma was also admitted to the hospital for similar symptoms. She is known to have coronary artery disease. She is a bit complex coronary angioplasty and stenting and she suffers from chronic atrial fibrillation she is back in anticoagulation with warfarin. She has also systolic heart failure with an ejection fraction of 30 to 35% and chronic stage IIIb kidney disease. Upon arrival to the emergency, the patient was quite short of breath. Likely just level was at 1.2. The viral screen came back negative. The chest x-ray was consistent with CHF and pulmonary edema. Overnight, the patient became more short of breath. The patient was given additional dose of Lasix and she is feeling better at this point in time. No nausea. No vomiting. No abdominal pain. No change in mental status. The white cell count is at 10.2, hemoglobin 10.7, serum bicarb is at 18 with a BUN of 29 and a creatinine 1.4 and sodium is at 138. She is currently sitting up on the chair comfortably on 40s of oxygen by nasal cannula. Her last coronary intervention was in December 2023. At that time, the patient underwent stenting of the mid LAD and proximal LAD through the left radial artery approach. Her curre nt INR is at 1.8. 04/29/2024, the patient is being seen for a follow-up. Still bronchospastic. Still having coughing episodes. Still congested and wheezy. The patient is on a combination bronchodilators. The patient is also on steroids. The patient is also on diuretics and the patient is to be Lasix 40 mg IV every 12 hours. Negative fluid balance. She remains on oxygen at 3 L/min nasal cannula. Sputum culture still pending. Blood cultures are still negative. The white cell 11.3 with a hemoglobin of 0.4, INR is at 2.3 and the patient remains on warfarin. He has 29 with a creatinine of 1.4 from yesterday. Awaiting labs from today in terms of electrolytes and renal function. No interval worsening shortness of breath. Some improvement since yesterday. The patient is seen today April 30, 2024 in follow-up on the regular medical floor. She is awake and alert in no acute distress. Currently sitting up in a chair. She is maintaining O2 saturations in the 90s on 3 L/min per nasal cannula. Sputum culture is positive for haemophilus influenza. INR 2.3. White count 10.4. Hemoglobin 10.4. Platelets 331. Sodium 129. Potassium 3.8. Bicarb 18. BUN 51. Creatinine 2.1. Glucose 182. She is continued on bronchodilators, Solu-Medrol. Antibiotics in the form of Levaquin. Anticoagulated with warfarin. Remains on Bumex. Currently in a -1.1 L balance. The patient is seen today May 01, 2024 in follow-up on the regular medical floor. She is currently sitting up in a chair. Awake and alert in no acute distress. Breathing better today compared to yesterday. Still with a dry cough. Still with some chest wall pain from coughing. She is maintaining O2 saturations in the 90s on room air. She has been afebrile. Hemodynamically stable. Sputum culture was positive for H flu. Blood cultures revealed no growth. White count 9.0. Hemoglobin 11.2. Platelets 376. Sodium 128. Potassium 4.1. Bicarb 18. BUN 44. Creatinine 1.45. Glucose 129. She is continued on Levaquin. Remains on bronchodilators and steroids. Robitussin for cough. The patient is seen today May 02, 2024 in follow-up on the regular medical floor. She is resting comfortably in bed. Awake and alert in no acute distress. Maintaining O2 saturations in the 90s on room air. INR 2.7. Follow- up chest x-ray is unchanged. No worsening infiltrates. Sputum culture was positive for haemophilus influenza back on 04/27/2024. White count 14.8. Hemoglobin 10.9. Platelets 381. Sodium 129. Potassium 4.2. Bicarb 18. BUN 41. Creatinine 1.8. Glucose 123. Remains on bronchodilators. Antibiotics in the form of Levaquin. Prednisone taper. The patient is seen today May 03, 2024 in follow-up on the regular medical floor. She is resting in bed. Awake and alert in no acute distress. She is feeling better. She is continues with a dry nonproductive cough. She is maintaining O2 saturations up to 100% on 3 L/min per nasal cannula. Sputum culture was positive for haemophilus influenza. Blood cultures revealed no growth. White count 13.4. Hemoglobin 11.1. Platelets 350. INR 3.3. Sodium 129. Potassium 4.4. Bicarb 20. BUN 43. Creatinine 1.7. Glucose 111. Urinalysis with large blood, moderate leukocyte esterase, high RBCs and high WBCs. Ultrasound of the abdomen/bladder is pending. Nephrology is following. The patient is seen today May 04, 2024 in follow-up on the regular medical floor. She is currently resting in bed. Awake and alert in no acute distress. Denies any worsening shortness of breath, cough or congestion. Maintaining O2 saturations in the 90s on 2 L/min per nasal cannula. White count 16.6. Hemoglobin 11.9. Platelets 384. INR 2.6. Sodium 131. Potassium 4.0. Bicarb 22. BUN 56. Creatinine 1.84. She remains on IV diuretics. Continued on bronchodilators and prednisone taper. Anticoagulated with warfarin. Antibiotics in the form of Levaquin. Current urine output at 3 L today. Objective - Vital Signs Vital signs: Vital Signs Temp 97.3 F L 05/04/24 06:48 Pulse 72 05/04/24 12:43 Resp 18 05/04/24 06:48 BP 121/75 05/04/24 06:48 Pulse Ox 95 05/04/24 08:36 FiO2 Intake & Output 05/03/24 05/04/24 05/04/24 18:59 06:59 18:59 Output Total 780 2300 Balance -780 -2300 Weight 78.7 kg Output: Urine 780 2300 Other: Voiding Method Indwelling Catheter Indwelling Catheter Indwelling Catheter - Exam GENERAL EXAM: Alert, 78-year-old female, resting in bed, on 3 L nasal cannula, in no distress. HEAD: Normocephalic. EYES: Normal reaction of pupils, equal size. NOSE: Clear with pink turbinates. THROAT: No erythema or exudates. NECK: No masses, no JVD. CHEST: No chest wall deformity. LUNGS: Equal air entry with faint crackles in the posterior bases. CVS: S1 and S2 normal with no audible murmur, regular rhythm. ABDOMEN: No hepatosplenomegaly, normal bowel sounds, no guarding or rigidity. SPINE: No scoliosis or deformity SKIN: No rashes CENTRAL NERVOUS SYSTEM: No focal deficits, tone is normal in all 4 extremities. EXTREMITIES: There is no peripheral edema. No clubbing, no cyanosis. Peripheral pulses are intact. - Labs CBC & Chem 7: 05/04/24 05:54 05/04/24 05:54 Labs: Abnormal Lab Results - Last 24 Hours (Table) 05/04/24 05/04/24 05/04/24 Range/Units 05:54 05:54 05:54 WBC 16.66 H (4.50-10.00) X 10*3/uL RBC 4.04 L (4.10-5.20) X 10*6/uL Hgb 11.9 L (12.0-15.0) g/dL Hct 36.0 L (37.2-46.3) % RDW 15.6 H (11.5-14.5) % PT 25.3 H (10.0-12.5) sec INR 2.6 H (<1.2) Sodium 131 L (137-145) mmol/L BUN 56 H (7-17) mg/dL Creatinine 1.84 H (0.52-1.04) mg/dL Assessment and Plan Assessment: Acute exacerbation of COPD with symptoms of bronchitis. No clear indication for pneumonia though remains on Levaquin Acute decompensated systolic heart failure secondary to above. Chest x-ray is consistent with CHF and pulmonary edema and being diuresed Acute hypoxic respiratory failure secondary to above, on 3 L nasal cannula Acute on chronic stage IIIb kidney disease Chronic atrial fibrillation anticoagulated with warfarin, therapeutic Chronic systolic heart failure with an ejection fraction of 30 to 35% Coronary artery disease with recent coronary intervention and stenting of the LAD x 2 done in December 2023 Anemia of chronic disease Hypertension Hyperlipidemia Osteoarthritis Rheumatoid arthritis Migraines Previous history of CVA Previous history of melanoma of the face resected Previous history of diverticulosis Plan: The patient was seen and evaluated Labs and medications reviewed Stable and on 3 L nasal cannula Remains on bronchodilators, steroids Remains on IV diuretics Home once cleared by nephrology I have personally seen and examined the patient, performed the documentation and the assessment and plan as written. Number of minutes spent on the visit: 10.
[2024-05-04 15:09] VITALS: BMI 29.7
--- NOTE | 2024-05-04 17:40 | P.PN ---
Subjective Progress Note Date: 05/04/24 Patient is being followed for acute kidney injury. Creatinine is 1.84 today. Ultrasound shows no evidence of hydronephrosis. No significant complaints today. Objective - Vital Signs Vital signs: Vital Signs Temp 97.3 F L 05/04/24 06:48 Pulse 72 05/04/24 12:43 Resp 18 05/04/24 06:48 BP 121/75 05/04/24 06:48 Pulse Ox 95 05/04/24 08:36 FiO2 Intake & Output 05/03/24 05/04/24 05/04/24 18:59 06:59 18:59 Output Total 780 2300 Balance -780 -2300 Weight 78.7 kg Output: Urine 780 2300 Other: Voiding Method Indwelling Catheter Indwelling Catheter Indwelling Catheter - Exam Vitals signs are stable. General: No acute distress. Heart: Regular rate and rhythm present. Lungs: Bilateral breath sounds present; no rhonchi, wheezes, or rales. Abdomen: Soft, nontender. Extremities: No edema present. ASBESTOS MICROSCOPIST: Grossly intact. - Labs CBC & Chem 7: 05/04/24 05:54 05/04/24 05:54 Labs: Abnormal Lab Results - Last 24 Hours (Table) 05/03/24 05/04/24 05/04/24 Range/Units 12:19 05:54 05:54 WBC (4.50-10.00) X 10*3/uL RBC (4.10-5.20) X 10*6/uL Hgb (12.0-15.0) g/dL Hct (37.2-46.3) % RDW (11.5-14.5) % PT 25.3 H (10.0-12.5) sec INR 2.6 H (<1.2) Sodium 131 L (137-145) mmol/L BUN 56 H (7-17) mg/dL Creatinine 1.84 H (0.52-1.04) mg/dL Urine Blood Large H (Negative) Ur Leukocyte Esterase Moderate H (Negative) Urine RBC >182 H (0-5) /hpf Urine WBC 6 H (0-5) /hpf Urine Bacteria Rare H (None) /hpf Urine Mucus Rare H (None) /hpf 05/04/24 Range/Units 05:54 WBC 16.66 H (4.50-10.00) X 10*3/uL RBC 4.04 L (4.10-5.20) X 10*6/uL Hgb 11.9 L (12.0-15.0) g/dL Hct 36.0 L (37.2-46.3) % RDW 15.6 H (11.5-14.5) % PT (10.0-12.5) sec INR (<1.2) Sodium (137-145) mmol/L BUN (7-17) mg/dL Creatinine (0.52-1.04) mg/dL Urine Blood (Negative) Ur Leukocyte Esterase (Negative) Urine RBC (0-5) /hpf Urine WBC (0-5) /hpf Urine Bacteria (None) /hpf Urine Mucus (None) /hpf Assessment and Plan Assessment: 1. Acute kidney injury. Nonoliguric ATN from low blood pressure, cardiorenal syndrome. Component of urinary retention is noted, currently with Logan catheter. WILL inhibitors on hold. UA showed large blood, no protein or WBCs, it is Logan specimen. Ultrasound showed no obstructive uropathy. 2. Chronic kidney disease stage IIIa with baseline creatinine 1.3-1.5. Etiology is nephrosclerosis. 3. CHF exacerbation. Acute on chronic systolic with EF 30-35% on echo in November 2022. 4. Persistent Afib-rate is controlled on metoprolol; anticoagulation with Coumadin. 5. Hyponatremia, hypervolemic. Maintained on diuretics. 6. COPD exacerbation maintained on steroids. Plan: Continue with IV Lasix. Continue with accurate Is/Os. OK to add SGLT2 inhibitors. Repeat labs in the morning. Continue to hold lisinopril for now, can likely resume in 1-2 days when renal function more stable. Trial discontinue Logan tomorrow. Patient is seen and examined with the resident. I agree with the findings assessment and plan.
[2024-05-04] MEDS: WARFARIN 2 MG TAB PO ONE (17:55)
--- NOTE | 2024-05-04 23:18 | P.PN ---
Subjective HISTORY OF PRESENTING ILLNESS 78-year-old female known to Dr. Madison. In December 2023 she underwent PCI of LAD by Dr. Madison. Other than that she has past medical history of nonischemic cardiomyopathy, permanent atrial fibrillation, mitral regurgitation with pulmonary hypertension and tricuspid regurgitation. She also has history of hypertension and dyslipidemia with CKD and chronic anemia and COPD. Presented to the hospital because of progressive worsening shortness of breath, chest heaviness symptoms. The symptoms have been gradually progressive getting worse. Admission CXR shows mild pulmonary congestion. No obvious consolidation. Admission ECG shows A-fib with heart rate 89 bpm, left bundle branch block. Left bundle branch block is old for her. Lab shows hemoglobin 9.9, WBC 9.7, sodium 133, potassium 4.1, BUN 31, creatinine 1.4, troponin was negative, BNP 2900. Previously she has had higher BMPs Home medications are aspirin 81 mg, Plavix 75 mg, Imdur 30 mg, metoprolol 12.5 mg twice daily, Aldactone 12.5 mg daily, warfarin, lisinopril 2.5, atorvastatin 40, amiodarone 200 mg daily, Lasix 20 mg daily. Progress note April 29, 2024 Hemoglobin 9.4, creatinine 1.8. On admission 1.4 BP 111/69 heart rate 80 beats minute, atrial fibrillation 04/30 Patient seen and examined. Patient still coughing significantly mild and wheezi ng on exam. States the inhalers, nebulizers briefly help. Her creatinine as well as sodium are getting worse with diuresis and diuretics were held. Blood pressure is borderline however goal map 65 with her decreased ejection fraction. Creatinine today up to 2.1. She admits she has not had much of an appetite and not eating much. 05/01 Patient seen and examined. Patient denies any chest pain or pressure. Still having a dry cough and hoarse voice. She states in the past she has been cardioverted she believes 3 times however did not really feel any different after the cardioversions. We therefore discussed that we will discontinuing the amiodarone due to concern of possible risk of lung toxicity with her lungs artery having a number of issues. Tendon did improve to 1.4 and diuretics have been on hold. 05/02 patient seen and examined. Patient feeling mildly improved in terms of her respiratory standpoint however creatinine worsened to 1.8 and therefore being monitored at least for 1 more day. Blood pressures have been borderline. Her amiodarone was discontinued yesterday and remains in A. fib with controlled ventricular rates. Logan catheter has been in place. Nephrology was consult at. 05/04 Patient seen and examined. Patient placed back on diuretics and creatinine wo rsened. Nephrology evaluated patient and please patient's volume overloaded. Denies any significant lower extremity edema however does feel bloating in her abdomen. Still significantly short of breath and hoarse and a cough. PHYSICAL EXAMINATION Vital signs reviewed. Head: Normocephalic. Eyes: Sclerae nonicteric. Neck: Brisk carotid upstroke, no jugular venous distention. Lungs: On nasal cannula 3 L poor respiratory effort, no crackles audible. Heart: Irregularly irregular pulse, systolic murmur Abdomen: Soft nontender, positive bowel sounds. Extremities: No edema, intact distal pulses. Neuro: Alert, oritented, no focal deficits. Detailed neuro exam was not performed. ASSESSMENT Acute on chronic hypoxic hypercapnic respiratory failure Chronic HFrEF Nonischemic cardiomyopathy, EF 30 to 35%, based off echo in November 2022 Persistent atrial fibrillation, currently rate controlled A-fib Chronic left bundle branch block CAD status post PCI to proximal LAD December 2023 COPD CKD Anemia Echo November 2022, EF 30 to 35%, inferior wall hypokinesia PLAN Most of symptoms appear more pulmonary related. Nephrology place patient back on diuretics and creatinine worsening. Defer further diuretics to nephrology however does not currently appear volume overloaded. We will sign off however if right heart catheterization to better evaluate filling pressures as desired please call. Objective - Vital Signs Vital signs: Vital Signs Temp 97.5 F L 05/04/24 19:37 Pulse 78 05/04/24 21:41 Resp 18 05/04/24 19:37 BP 106/64 05/04/24 19:37 Pulse Ox 92 L 05/04/24 19:37 FiO2 Intake & Output 05/04/24 05/04/24 05/05/24 06:59 18:59 06:59 Output Total 2300 Balance -2300 Weight 78.7 kg 78.7 kg Output: Urine 2300 Other: Voiding Method Indwelling Catheter Indwelling Catheter Indwelling Catheter - Labs CBC & Chem 7: 05/04/24 05:54 05/04/24 05:54 Labs: Abnormal Lab Results - Last 24 Hours (Table) 05/04/24 05/04/24 05/04/24 Range/Units 05:54 05:54 05:54 WBC 16.66 H (4.50-10.00) X 10*3/uL RBC 4.04 L (4.10-5.20) X 10*6/uL Hgb 11.9 L (12.0-15.0) g/dL Hct 36.0 L (37.2-46.3) % RDW 15.6 H (11.5-14.5) % PT 25.3 H (10.0-12.5) sec INR 2.6 H (<1.2) Sodium 131 L (137-145) mmol/L BUN 56 H (7-17) mg/dL Creatinine 1.84 H (0.52-1.04) mg/dL
[2024-05-05 06:51] LABS: INR 1.8 (<1.2); Prothrombin Time 18.4 sec (10.0-12.5)
[2024-05-05 09:20] LABS: Basophils # (A) 0.12 X 10*3/uL (0.00-0.10); Basophils % (A) 0.6 %; Eosinophils # (A) 0 X 10*3/uL (0.04-0.35); Eosinophils % (A) 0 %; HCT 33.7 % (37.2-46.3); HGB 11.1 g/dL (12.0-15.0); Lymphocytes # (A) 0.65 X 10*3/uL (0.90-5.00); Lymphocytes % (A) 3.4 %; MCH 29.6 pg (27.0-32.0); MCHC 32.9 g/dL (32.0-37.0); MCV 89.9 FL (80.0-97.0); Mean Platelet Volume 10.2 FL (9.5-12.2); Monocytes # (A) 1.47 X 10*3/uL (0.20-1.00); Monocytes % (A) 7.7 %; NRBC Per 100 WBC 0 X 10*3/uL (0.00-0.01); Neutrophils # (A) 16.21 X 10*3/uL (1.80-7.70); Neutrophils % (A) 84.3 %; Platelet Count 324 X 10*3/uL (140-440); RBC 3.75 X 10*6/uL (4.10-5.20); RDW 15.4 % (11.5-14.5); WBC 19.21 X 10*3/uL (4.50-10.00)
[2024-05-05 09:41] LABS: Blood Urea Nitrogen 60.7 mg/dL (9.0-27.0); Chloride 97 mmol/L (96-109); Glucose 115 mg/dL (70-110); Potassium 3.7 mmol/L (3.5-5.5); Sodium 134 mmol/L (135-145)
--- NOTE | 2024-05-05 10:10 | P.PN ---
Subjective Patient is seen in follow-up for acute kidney injury on chronic kidney disease. Renal function worse from diuresis. Edema improved. Still gets short of breath with exertion. Vital signs are stable. General: No acute distress. HEENT: Head exam is unremarkable. On nasal cannula. LUNGS: No audible rhonchi or wheezes. HEART: Rate and Rhythm are regular. ABDOMEN: Nontender. EXTREMITITES: No edema. Objective - Vital Signs Vital signs: Vital Signs Temp 98.2 F 05/05/24 07:54 Pulse 72 05/05/24 09:58 Resp 16 05/05/24 07:54 BP 137/78 05/05/24 07:54 Pulse Ox 94 L 05/05/24 07:54 FiO2 Intake & Output 05/04/24 05/05/24 05/05/24 18:59 06:59 18:59 Output Total 2100 Balance -2100 Weight 78.7 kg 78.8 kg Output: Urine 2100 Other: Voiding Method Indwelling Catheter Indwelling Catheter - Labs CBC & Chem 7: 05/05/24 06:10 05/05/24 06:10 Labs: Abnormal Lab Results - Last 24 Hours (Table) 05/05/24 05/05/24 05/05/24 Range/Units 06:10 06:10 06:10 WBC 19.21 H (4.50-10.00) X 10*3/uL RBC 3.75 L (4.10-5.20) X 10*6/uL Hgb 11.1 L (12.0-15.0) g/dL Hct 33.7 L (37.2-46.3) % RDW 15.4 H (11.5-14.5) % Immature Gran # 0.76 H (0.00-0.04) X 10*3/uL Neutrophils # 16.21 H (1.80-7.70) X 10*3/uL Lymphocytes # 0.65 L (0.90-5.00) X 10*3/uL Monocytes # 1.47 H (0.20-1.00) X 10*3/uL Eosinophils # 0 L (0.04-0.35) X 10*3/uL Basophils # 0.12 H (0.00-0.10) X 10*3/uL PT 18.4 H (10.0-12.5) sec INR 1.8 H (<1.2) Sodium 134 L (135-145) mmol/L Anion Gap 14.00 H (4.00-12.00) mmol/L BUN 60.7 H (9.0-27.0) mg/dL Creatinine 2.1 H (0.6-1.5) mg/dL Est GFR (CKD-EPI) 24 L (>=60) BUN/Creatinine Ratio 28.90 H (12.00-20.00) Ratio Glucose 115 H (70-110) mg/dL Calcium 8.0 L (8.7-10.3) mg/dL Assessment and Plan Plan: Assessment: 1. Acute kidney injury secondary to ATN secondary to cardiorenal syndrome. Creatinine 2.1 today. No hydronephrosis noted on kidney ultrasound. No proteinuria on UA. 2. Chronic kidney disease stage IIIa with baseline creatinine 1.3-1.5 secondary to cardiorenal syndrome. 3. Urinary retention. Has Logan catheter. 4. Acute on chronic systolic CHF with ejection fraction of 30 to 35%. 5. Acute Evoxac respiratory failure. 6. Volume overload. Improving with diuresis. 7. Coronary disease status post cardiac stenting in the past. Plan: Change IV Lasix to oral. Add SGLT2 inhibitor in the near future if GFR stable. Changed to cardiac diet. Add 1500 cc fluid restriction. Avoid nephrotoxins. Continue to monitor renal function and urine output. Repeat chest x-ray.
--- NOTE | 2024-05-05 10:23 | P.PN ---
Subjective Progress Note Date: 05/05/24 This is a pleasant 78-year-old female patient who is currently hospitalized for worsening shortness of breath, cough, congestion, excessive sputum production, bronchospasm and wheezing. Note that her asthma was also admitted to the hospital for similar symptoms. She is known to have coronary artery disease. She is a bit complex coronary angioplasty and stenting and she suffers from chronic atrial fibrillation she is back in anticoagulation with warfarin. She has also systolic heart failure with an ejection fraction of 30 to 35% and chronic stage IIIb kidney disease. Upon arrival to the emergency, the patient was quite short of breath. Likely just level was at 1.2. The viral screen came back negative. The chest x-ray was consistent with CHF and pulmonary edema. Overnight, the patient became more short of breath. The patient was given additional dose of Lasix and she is feeling better at this point in time. No nausea. No vomiting. No abdominal pain. No change in mental status. The white cell count is at 10.2, hemoglobin 10.7, serum bicarb is at 18 with a BUN of 29 and a creatinine 1.4 and sodium is at 138. She is currently sitting up on the chair comfortably on 40s of oxygen by nasal cannula. Her last coronary intervention was in December 2023. At that time, the patient underwent stenting of the mid LAD and proximal LAD through the left radial artery approach. Her curre nt INR is at 1.8. 04/29/2024, the patient is being seen for a follow-up. Still bronchospastic. Still having coughing episodes. Still congested and wheezy. The patient is on a combination bronchodilators. The patient is also on steroids. The patient is also on diuretics and the patient is to be Lasix 40 mg IV every 12 hours. Negative fluid balance. She remains on oxygen at 3 L/min nasal cannula. Sputum culture still pending. Blood cultures are still negative. The white cell 11.3 with a hemoglobin of 0.4, INR is at 2.3 and the patient remains on warfarin. He has 29 with a creatinine of 1.4 from yesterday. Awaiting labs from today in terms of electrolytes and renal function. No interval worsening shortness of breath. Some improvement since yesterday. The patient is seen today April 30, 2024 in follow-up on the regular medical floor. She is awake and alert in no acute distress. Currently sitting up in a chair. She is maintaining O2 saturations in the 90s on 3 L/min per nasal cannula. Sputum culture is positive for haemophilus influenza. INR 2.3. White count 10.4. Hemoglobin 10.4. Platelets 331. Sodium 129. Potassium 3.8. Bicarb 18. BUN 51. Creatinine 2.1. Glucose 182. She is continued on bronchodilators, Solu-Medrol. Antibiotics in the form of Levaquin. Anticoagulated with warfarin. Remains on Bumex. Currently in a -1.1 L balance. The patient is seen today May 01, 2024 in follow-up on the regular medical floor. She is currently sitting up in a chair. Awake and alert in no acute distress. Breathing better today compared to yesterday. Still with a dry cough. Still with some chest wall pain from coughing. She is maintaining O2 saturations in the 90s on room air. She has been afebrile. Hemodynamically stable. Sputum culture was positive for H flu. Blood cultures revealed no growth. White count 9.0. Hemoglobin 11.2. Platelets 376. Sodium 128. Potassium 4.1. Bicarb 18. BUN 44. Creatinine 1.45. Glucose 129. She is continued on Levaquin. Remains on bronchodilators and steroids. Robitussin for cough. The patient is seen today May 02, 2024 in follow-up on the regular medical floor. She is resting comfortably in bed. Awake and alert in no acute distress. Maintaining O2 saturations in the 90s on room air. INR 2.7. Follow- up chest x-ray is unchanged. No worsening infiltrates. Sputum culture was positive for haemophilus influenza back on 04/27/2024. White count 14.8. Hemoglobin 10.9. Platelets 381. Sodium 129. Potassium 4.2. Bicarb 18. BUN 41. Creatinine 1.8. Glucose 123. Remains on bronchodilators. Antibiotics in the form of Levaquin. Prednisone taper. The patient is seen today May 03, 2024 in follow-up on the regular medical floor. She is resting in bed. Awake and alert in no acute distress. She is feeling better. She is continues with a dry nonproductive cough. She is maintaining O2 saturations up to 100% on 3 L/min per nasal cannula. Sputum culture was positive for haemophilus influenza. Blood cultures revealed no growth. White count 13.4. Hemoglobin 11.1. Platelets 350. INR 3.3. Sodium 129. Potassium 4.4. Bicarb 20. BUN 43. Creatinine 1.7. Glucose 111. Urinalysis with large blood, moderate leukocyte esterase, high RBCs and high WBCs. Ultrasound of the abdomen/bladder is pending. Nephrology is following. The patient is seen today May 04, 2024 in follow-up on the regular medical floor. She is currently resting in bed. Awake and alert in no acute distress. Denies any worsening shortness of breath, cough or congestion. Maintaining O2 saturations in the 90s on 2 L/min per nasal cannula. White count 16.6. Hemoglobin 11.9. Platelets 384. INR 2.6. Sodium 131. Potassium 4.0. Bicarb 22. BUN 56. Creatinine 1.84. She remains on IV diuretics. Continued on bronchodilators and prednisone taper. Anticoagulated with warfarin. Antibiotics in the form of Levaquin. Current urine output at 3 L today. The patient is seen today May 05, 2024 in follow-up on the regular medical floor. She is currently up in a chair. Awake and alert in no acute distress. Denies any worsening shortness of breath, cough or congestion. Maintaining good O2 saturations in the 90s on 3 L/min per nasal cannula. White count 19.2. Hemoglobin 11.1. Platelets 324. INR 1.8. Sodium 134. Potassium 3.7. Bicarb 23. BUN 61. Creatinine 2.1. Glucose 115. Prednisone taper. Remains on antibiotics in the form of Levaquin. She remains on oral diuretics. Anticoa gulated with warfarin. Current urine output 2.1 L. Objective - Vital Signs Vital signs: Vital Signs Temp 98.2 F 05/05/24 07:54 Pulse 72 05/05/24 09:58 Resp 16 05/05/24 07:54 BP 137/78 05/05/24 07:54 Pulse Ox 94 L 05/05/24 07:54 FiO2 Intake & Output 05/04/24 05/05/24 05/05/24 18:59 06:59 18:59 Output Total 2100 Balance -2100 Weight 78.7 kg 78.8 kg Output: Urine 2100 Other: Voiding Method Indwelling Catheter Indwelling Catheter Indwelling Catheter - Exam GENERAL EXAM: Alert, pleasant 78-year-old female, up in a chair, on 3 L nasal cannula, in no distress. HEAD: Normocephalic. EYES: Normal reaction of pupils, equal size. NOSE: Clear with pink turbinates. THROAT: No erythema or exudates. NECK: No masses, no JVD. CHEST: No chest wall deformity. LUNGS: Equal air entry with faint crackles in the posterior bases. CVS: S1 and S2 normal with no audible murmur, regular rhythm. ABDOMEN: No hepatosplenomegaly, normal bowel sounds, no guarding or rigidity. SPINE: No scoliosis or deformity SKIN: No rashes CENTRAL NERVOUS SYSTEM: No focal deficits, tone is normal in all 4 extremities. EXTREMITIES: There is one plus peripheral edema. No clubbing, no cyanosis. Peripheral pulses are intact. - Labs CBC & Chem 7: 05/05/24 06:10 05/05/24 06:10 Labs: Abnormal Lab Results - Last 24 Hours (Table) 05/05/24 05/05/24 05/05/24 Range/Units 06:10 06:10 06:10 WBC 19.21 H (4.50-10.00) X 10*3/uL RBC 3.75 L (4.10-5.20) X 10*6/uL Hgb 11.1 L (12.0-15.0) g/dL Hct 33.7 L (37.2-46.3) % RDW 15.4 H (11.5-14.5) % Immature Gran # 0.76 H (0.00-0.04) X 10*3/uL Neutrophils # 16.21 H (1.80-7.70) X 10*3/uL Lymphocytes # 0.65 L (0.90-5.00) X 10*3/uL Monocytes # 1.47 H (0.20-1.00) X 10*3/uL Eosinophils # 0 L (0.04-0.35) X 10*3/uL Basophils # 0.12 H (0.00-0.10) X 10*3/uL PT 18.4 H (10.0-12.5) sec INR 1.8 H (<1.2) Sodium 134 L (135-145) mmol/L Anion Gap 14.00 H (4.00-12.00) mmol/L BUN 60.7 H (9.0-27.0) mg/dL Creatinine 2.1 H (0.6-1.5) mg/dL Est GFR (CKD-EPI) 24 L (>=60) BUN/Creatinine Ratio 28.90 H (12.00-20.00) Ratio Glucose 115 H (70-110) mg/dL Calcium 8.0 L (8.7-10.3) mg/dL Assessment and Plan Assessment: Acute exacerbation of COPD with symptoms of bronchitis. Treated empirically with Levaquin Acute decompensated systolic heart failure secondary to above. Chest x-ray is consistent with CHF and pulmonary edema and being diuresed Acute hypoxic respiratory failure secondary to above, on 4 L nasal cannula Acute on chronic stage IIIb kidney disease Chronic atrial fibrillation anticoagulated with warfarin, therapeutic Chronic systolic heart failure with an ejection fraction of 30 to 35% Coronary artery disease with recent coronary intervention and stenting of the LAD x 2 done in December 2023 Anemia of chronic disease Hypertension Hyperlipidemia Osteoarthritis Rheumatoid arthritis Migraines Previous history of CVA Previous history of melanoma of the face resected Previous history of diverticulosis Plan: The patient was seen and evaluated Labs and medications reviewed Discontinue Levaquin Creatinine trending upward Added 1500 cc fluid restriction Transitioned to oral diuretics Remains on bronchodilators, steroid taper This patient was seen independently by the pulmonary nurse practitioner addressing pulmonary issues I have personally seen and examined the patient, performed the documentation and the assessment and plan as written. Number of minutes spent on the visit: 24.
--- NOTE | 2024-05-05 11:20 | XR ---
EXAMINATION TYPE: XR chest 1V DATE OF EXAM: 05/05/2024 11:09 AM CLINICAL INDICATION:Female, 78 years old with history of sob; COMPARISON: Chest radiographs from 05/02/2024 TECHNIQUE: XR chest 1V Frontal view of the chest. FINDINGS: Lungs/Pleura: There is flattening of the diaphragm with increased lucency of the lungs. No evidence o f pneumothorax, pleural effusion or focal consolidation. Pulmonary vascularity: Unremarkable. Heart/mediastinum: Cardiomediastinal silhouette is prominent in size. Musculoskeletal: No acute osseous pathology. Other findings: None IMPRESSION: 1. No acute cardiopulmonary disease process. 2. COPD changes.
[2024-05-05] MEDS: FUROSEMIDE 40 MG TAB PO SCH (16:36)
--- NOTE | 2024-05-05 17:04 | P.PN ---
Subjective Progress Note Date: 05/05/24 (delayed charting seen at 1100) Patient is a 78-year-old with CAD status post PCI, A-fib/flutter on anticoagulation with Coumadin, HFrEF with EF 30 to 35%, COPD, and CKD stage IIIb. She was found to have acute exacerbation of COPD and acute on chronic systolic heart failure resulting in acute hypoxic respiratory failure. She was started on bronchodilators, Solu-Medrol, and diuretics. Sputum came back positive for haemophilus influenza and she was subsequently diagnosed with bronchitis. She developed urinary retention requiring Logan catheter replacement and acute kidney injury. Patient being followed by nephrology, cardiology, and pulmonology. Patient seen and examined at bedside. Continues to have some shortness of breath which she states is worse than yesterday, continues to have some lower extremity edema, Vital signs reviewed General: Nontoxic, no distress, appears at stated age Cardiovascular: S1S2 reg, no murmur Lungs: Coarse breath sounds bilateral, no rhonchi, no rales, no accessory muscle use, + thrush Abdominal: Soft, nontender to palpation, no guarding Ext: No gross muscle atrophy, trace edema b/l lower extremities, no contractures Neuro: CN II-XI grossly intact, no focal neuro deficits Psych: Alert, oriented, appropriate affect Assessment/Plan: Acute exacerbation of COPD Acute hypoxic respiratory failure Thrush s/p treatment Haemophilus influenza bronchitis -Pulmonary note reviewed: Discontinue Levaquin, and 1500 cc fluid restriction, continue bronchodilators and steroid taper -Completed treatment with Levaquin x 5 days -Add nystatin 5 mL p.o. 4 times daily day #1 Prednisone 40 mg daily -DuoNebs 4 times daily and every 2 hours as needed Acute on chronic systolic congestive heart failure with ejection fraction 30 to 35% A-fib anticoagulated with Coumadin Coronary artery disease status post multiple stents Chest pain, acute coronary syndrome ruled out HTN Dyslipidemia -cardiology signed off, recommend possible right heart cath in the future to assess filling pressures -ASA 81 mg, Lipitor 40 mg, Plavix 75 mg daily -Lasix 40 mg twice daily -Metoprolol 12.5 mg twice daily -Imdur 30 mg daily -Warfarin 3 mg tonight, repeat INR in a.m. Acute kidney injury Acute urinary retention -Nephrology note reviewed, add SGLT2 inhibitor in the near future if GFR stable, change IV Lasix to oral, add 1500 cc fluid restriction -Continue Logan catheter until significant improvement in renal function High anion gap metabolic acidosis, resolved Anemia of chronic disease Hyponatremia, improved Imaging: Chest x-ray: No acute process, COPD Data Review: Labs reviewed from today are remarkable for white blood cell count 19.21, hemoglobin 11.1, INR 1.8, BUN 60, creatinine 2.1 DVT prophylaxis: Coumadin Anticipated discharge date: 2 to [address]: Home with home health This dictation was prepared using [employer] voice recognition software. Though every attempt is made to correct errors during dictation some may still exist. Objective - Vital Signs Vital signs: Vital Signs Temp 97.8 F 05/05/24 14:45 Pulse 80 05/05/24 16:16 Resp 17 05/05/24 14:45 BP 102/60 05/05/24 14:45 Pulse Ox 93 L 05/05/24 14:45 FiO2 Intake & Output 05/04/24 05/05/24 05/05/24 18:59 06:59 18:59 Output Total 2100 600 Balance -2100 -600 Weight 78.7 kg 78.8 kg Output: Urine 2100 600 Other: Voiding Method Indwelling Catheter Indwelling Catheter Indwelling Catheter - Labs CBC & Chem 7: 05/05/24 06:10 05/05/24 06:10 Labs: Abnormal Lab Results - Last 24 Hours (Table) 05/05/24 05/05/24 05/05/24 Range/Units 06:10 06:10 06:10 WBC 19.21 H (4.50-10.00) X 10*3/uL RBC 3.75 L (4.10-5.20) X 10*6/uL Hgb 11.1 L (12.0-15.0) g/dL Hct 33.7 L (37.2-46.3) % RDW 15.4 H (11.5-14.5) % Immature Gran # 0.76 H (0.00-0.04) X 10*3/uL Neutrophils # 16.21 H (1.80-7.70) X 10*3/uL Lymphocytes # 0.65 L (0.90-5.00) X 10*3/uL Monocytes # 1.47 H (0.20-1.00) X 10*3/uL Eosinophils # 0 L (0.04-0.35) X 10*3/uL Basophils # 0.12 H (0.00-0.10) X 10*3/uL PT 18.4 H (10.0-12.5) sec INR 1.8 H (<1.2) Sodium 134 L (135-145) mmol/L Anion Gap 14.00 H (4.00-12.00) mmol/L BUN 60.7 H (9.0-27.0) mg/dL Creatinine 2.1 H (0.6-1.5) mg/dL Est GFR (CKD-EPI) 24 L (>=60) BUN/Creatinine Ratio 28.90 H (12.00-20.00) Ratio Glucose 115 H (70-110) mg/dL Calcium 8.0 L (8.7-10.3) mg/dL
[2024-05-05] MEDS: NYSTATIN 100,000 UNIT/ML SUSP 500,000 UNIT/5 ML CUP PO SCH (17:16)
[2024-05-05] MEDS: WARFARIN 3 MG TAB PO ONE (17:16)
[2024-05-06 04:14] LABS: INR 1.6 (<1.2); Prothrombin Time 16.7 sec (10.0-12.5)
--- NOTE | 2024-05-06 11:00 | P.PN ---
Subjective Progress Note Date: 05/06/24 This is a pleasant 78-year-old female patient who is currently hospitalized for worsening shortness of breath, cough, congestion, excessive sputum production, bronchospasm and wheezing. Note that her asthma was also admitted to the hospital for similar symptoms. She is known to have coronary artery disease. She is a bit complex coronary angioplasty and stenting and she suffers from chronic atrial fibrillation she is back in anticoagulation with warfarin. She has also systolic heart failure with an ejection fraction of 30 to 35% and chronic stage IIIb kidney disease. Upon arrival to the emergency, the patient was quite short of breath. Likely just level was at 1.2. The viral screen came back negative. The chest x-ray was consistent with CHF and pulmonary edema. Overnight, the patient became more short of breath. The patient was given additional dose of Lasix and she is feeling better at this point in time. No nausea. No vomiting. No abdominal pain. No change in mental status. The white cell count is at 10.2, hemoglobin 10.7, serum bicarb is at 18 with a BUN of 29 and a creatinine 1.4 and sodium is at 138. She is currently sitting up on the chair comfortably on 40s of oxygen by nasal cannula. Her last coronary intervention was in December 2023. At that time, the patient underwent stenting of the mid LAD and proximal LAD through the left radial artery approach. Her curre nt INR is at 1.8. 04/29/2024, the patient is being seen for a follow-up. Still bronchospastic. Still having coughing episodes. Still congested and wheezy. The patient is on a combination bronchodilators. The patient is also on steroids. The patient is also on diuretics and the patient is to be Lasix 40 mg IV every 12 hours. Negative fluid balance. She remains on oxygen at 3 L/min nasal cannula. Sputum culture still pending. Blood cultures are still negative. The white cell 11.3 with a hemoglobin of 0.4, INR is at 2.3 and the patient remains on warfarin. He has 29 with a creatinine of 1.4 from yesterday. Awaiting labs from today in terms of electrolytes and renal function. No interval worsening shortness of breath. Some improvement since yesterday. The patient is seen today April 30, 2024 in follow-up on the regular medical floor. She is awake and alert in no acute distress. Currently sitting up in a chair. She is maintaining O2 saturations in the 90s on 3 L/min per nasal cannula. Sputum culture is positive for haemophilus influenza. INR 2.3. White count 10.4. Hemoglobin 10.4. Platelets 331. Sodium 129. Potassium 3.8. Bicarb 18. BUN 51. Creatinine 2.1. Glucose 182. She is continued on bronchodilators, Solu-Medrol. Antibiotics in the form of Levaquin. Anticoagulated with warfarin. Remains on Bumex. Currently in a -1.1 L balance. The patient is seen today May 01, 2024 in follow-up on the regular medical floor. She is currently sitting up in a chair. Awake and alert in no acute distress. Breathing better today compared to yesterday. Still with a dry cough. Still with some chest wall pain from coughing. She is maintaining O2 saturations in the 90s on room air. She has been afebrile. Hemodynamically stable. Sputum culture was positive for H flu. Blood cultures revealed no growth. White count 9.0. Hemoglobin 11.2. Platelets 376. Sodium 128. Potassium 4.1. Bicarb 18. BUN 44. Creatinine 1.45. Glucose 129. She is continued on Levaquin. Remains on bronchodilators and steroids. Robitussin for cough. The patient is seen today May 02, 2024 in follow-up on the regular medical floor. She is resting comfortably in bed. Awake and alert in no acute distress. Maintaining O2 saturations in the 90s on room air. INR 2.7. Follow- up chest x-ray is unchanged. No worsening infiltrates. Sputum culture was positive for haemophilus influenza back on 04/27/2024. White count 14.8. Hemoglobin 10.9. Platelets 381. Sodium 129. Potassium 4.2. Bicarb 18. BUN 41. Creatinine 1.8. Glucose 123. Remains on bronchodilators. Antibiotics in the form of Levaquin. Prednisone taper. The patient is seen today May 03, 2024 in follow-up on the regular medical floor. She is resting in bed. Awake and alert in no acute distress. She is feeling better. She is continues with a dry nonproductive cough. She is maintaining O2 saturations up to 100% on 3 L/min per nasal cannula. Sputum culture was positive for haemophilus influenza. Blood cultures revealed no growth. White count 13.4. Hemoglobin 11.1. Platelets 350. INR 3.3. Sodium 129. Potassium 4.4. Bicarb 20. BUN 43. Creatinine 1.7. Glucose 111. Urinalysis with large blood, moderate leukocyte esterase, high RBCs and high WBCs. Ultrasound of the abdomen/bladder is pending. Nephrology is following. The patient is seen today May 04, 2024 in follow-up on the regular medical floor. She is currently resting in bed. Awake and alert in no acute distress. Denies any worsening shortness of breath, cough or congestion. Maintaining O2 saturations in the 90s on 2 L/min per nasal cannula. White count 16.6. Hemoglobin 11.9. Platelets 384. INR 2.6. Sodium 131. Potassium 4.0. Bicarb 22. BUN 56. Creatinine 1.84. She remains on IV diuretics. Continued on bronchodilators and prednisone taper. Anticoagulated with warfarin. Antibiotics in the form of Levaquin. Current urine output at 3 L today. The patient is seen today May 05, 2024 in follow-up on the regular medical floor. She is currently up in a chair. Awake and alert in no acute distress. Denies any worsening shortness of breath, cough or congestion. Maintaining good O2 saturations in the 90s on 3 L/min per nasal cannula. White count 19.2. Hemoglobin 11.1. Platelets 324. INR 1.8. Sodium 134. Potassium 3.7. Bicarb 23. BUN 61. Creatinine 2.1. Glucose 115. Prednisone taper. Remains on antibiotics in the form of Levaquin. She remains on oral diuretics. Anticoa gulated with warfarin. Current urine output 2.1 L. The patient is seen today May 06, 2024 on the regular medical floor. She is awake and alert in no acute distress. Sitting up in bed. Denies any worsening shortness of breath, cough or congestion. Chest x-ray reveals no acute pulmonary process. Evidence of COPD. INR 1.6. She remains on warfarin. Continued on oral diuretics. Continued on bronchodilators. Remains on a prednisone taper. Objective - Vital Signs Vital signs: Vital Signs Temp 97.6 F 05/06/24 07:23 Pulse 80 05/06/24 08:55 Resp 17 05/06/24 07:23 BP 102/66 07/14/24 07:23 Pulse Ox 100 05/06/24 07:23 FiO2 Intake & Output 05/05/24 05/06/24 05/06/24 18:59 06:59 18:59 Intake Total 240 Output Total 2200 1100 Balance -2200 -860 Weight 59 kg Intake: Other 240 Output: Urine 2200 1100 Other: Voiding Method Indwelling Catheter Indwelling Catheter Indwelling Catheter - Exam GENERAL EXAM: Alert, 78-year-old female, on 2 L nasal cannula, in no distress. HEAD: Normocephalic. EYES: Normal reaction of pupils, equal size. NOSE: Clear with pink turbinates. THROAT: No erythema or exudates. NECK: No masses, no JVD. CHEST: No chest wall deformity. LUNGS: Equal air entry with faint crackles in the posterior bases. CVS: S1 and S2 normal with no audible murmur, regular rhythm. ABDOMEN: No hepatosplenomegaly, normal bowel sounds, no guarding or rigidity. SPINE: No scoliosis or deformity SKIN: No rashes CENTRAL NERVOUS SYSTEM: No focal deficits, tone is normal in all 4 extremities. EXTREMITIES: There is one plus peripheral edema. No clubbing, no cyanosis. Peripheral pulses are intact. - Labs CBC & Chem 7: 05/05/24 06:10 05/05/24 06:10 Labs: Abnormal Lab Results - Last 24 Hours (Table) 05/06/24 Range/Units 03:49 PT 16.7 H (10.0-12.5) sec INR 1.6 H (<1.2) Assessment and Plan Assessment: Acute exacerbation of COPD with symptoms of bronchitis. Treated empirically with Levaquin Acute decompensated systolic heart failure secondary to above. Chest x-ray is consistent with CHF and pulmonary edema and being diuresed. Follow-up chest x- ray is clear Acute hypoxic respiratory failure secondary to above, on 2 L nasal cannula Acute on chronic stage IIIb kidney disease Chronic atrial fibrillation anticoagulated with warfarin, therapeutic Chronic systolic heart failure with an ejection fraction of 30 to 35% Coronary artery disease with recent coronary intervention and stenting of the LAD x 2 done in December 2023 Anemia of chronic disease Hypertension Hyperlipidemia Osteoarthritis Rheumatoid arthritis Migraines Previous history of CVA Previous history of melanoma of the face resected Previous history of diverticulosis Plan: The patient was seen and evaluated Labs and medications reviewed Chest x-ray reveals no acute process Trach down/off the FiO2 Continue 1500 cc fluid restriction Transitioned to oral diuretics Remains on bronchodilators, steroid taper This patient was seen independently by the pulmonary nurse practitioner cary velasquez pulmonary issues I have personally seen and examined the patient, performed the documentation and the assessment and plan as written. Number of minutes spent on the visit: 23.
--- NOTE | 2024-05-06 11:39 | P.PN ---
Subjective Patient is seen in follow-up for acute kidney injury on chronic kidney disease. Renal function worsened from diuresis. Lasix decreased May 05, 2024. Edema improved. No active complaints. Vital signs are stable. General: No acute distress. HEENT: Head exam is unremarkable. Currently on room air. LUNGS: No audible rhonchi or wheezes. HEART: Rate and Rhythm are regular. ABDOMEN: Nontender. EXTREMITITES: No edema. Objective - Vital Signs Vital signs: Vital Signs Temp 97.6 F 05/06/24 07:23 Pulse 80 05/06/24 08:55 Resp 17 05/06/24 07:23 BP 102/66 05/06/24 07:23 Pulse Ox 100 05/06/24 07:23 FiO2 Intake & Output 05/05/24 05/06/24 05/06/24 18:59 06:59 18:59 Intake Total 240 Output Total 2200 1100 Balance -2200 -860 Weight 59 kg Intake: Other 240 Output: Urine 2200 1100 Other: Voiding Method Indwelling Catheter Indwelling Catheter Indwelling Catheter - Labs CBC & Chem 7: 05/05/24 06:10 05/05/24 06:10 Labs: Abnormal Lab Results - Last 24 Hours (Table) 05/06/24 Range/Units 03:49 PT 16.7 H (10.0-12.5) sec INR 1.6 H (<1.2) Assessment and Plan Plan: Assessment: 1. Acute kidney injury secondary to ATN secondary to cardiorenal syndrome. Creatinine 2.1 yesterday. No hydronephrosis noted on kidney ultrasound. No proteinuria on UA. 2. Chronic kidney disease stage IIIa with baseline creatinine 1.3-1.5 secondary to cardiorenal syndrome. 3. Urinary retention. Has Logan catheter. 4. Acute on chronic systolic CHF with ejection fraction of 30 to 35%. 5. Acute Evoxac respiratory failure. 6. Volume overload. Improved with diuresis. 7. Coronary disease status post cardiac stenting in the past. Plan: Maintain oral Lasix. Add SGLT2 inhibitor in the near future if GFR stable. Maintain low-salt diet. Maintain fluid restriction. Avoid nephrotoxins. Continue to monitor renal function and urine output. Add Flomax. Trial of void tomorrow.
[2024-05-06] MEDS: TAMSULOSIN 0.4 MG CAP.ER.24H PO SCH (12:20)
[2024-05-06 12:34] LABS: BUN/Creat Ratio 28.76 Ratio (12.00-20.00); Blood Urea Nitrogen 60.4 mg/dL (9.0-27.0); Calcium 7.5 mg/dL (8.7-10.3); Carbon Dioxide 23.4 mmol/L (21.6-31.8); Chloride 99 mmol/L (96-109); Glucose 140 mg/dL (70-110); Magnesium 2.2 mg/dL (1.5-2.4); Potassium 3.6 mmol/L (3.5-5.5); Sodium 138 mmol/L (135-145)
--- NOTE | 2024-05-06 18:03 | P.PN ---
Subjective Progress Note Date: 05/06/24 (delayed charting seen at 1150) Patient is a 78-year-old with CAD status post PCI, A-fib/flutter on anticoagulation with Coumadin, HFrEF with EF 30 to 35%, COPD, and CKD stage IIIb. She was found to have acute exacerbation of COPD and acute on chronic systolic heart failure resulting in acute hypoxic respiratory failure. She was started on bronchodilators, Solu-Medrol, and diuretics. Sputum came back positive for haemophilus influenza and she was subsequently diagnosed with bronchitis. She developed urinary retention requiring Logan catheter replacement and acute kidney injury. Patient being followed by nephrology, cardiology, and pulmonology. Seen and examined at bedside. She is feeling somewhat better today than yesterday. Breathing is stable. She feels like she does better when she has the oxygen on. We discussed that she needs to get up and walk more. She is willing to deal with her today. Vital signs reviewed General: Nontoxic, no distress, appears at stated age Cardiovascular: S1S2 reg, no murmur Lungs: Coarse breath sounds bilateral, no rhonchi, no rales, no accessory muscle use, + thrush Abdominal: Soft, nontender to palpation, no guarding Ext: No gross muscle atrophy, trace edema b/l lower extremities, no contractures Neuro: CN II-XI grossly intact, no focal neuro deficits Psych: Alert, oriented, appropriate affect Assessment/Plan: Acute exacerbation of COPD Acute hypoxic respiratory failure Thrush s/p treatment Haemophilus influenza bronchitis -Pulmonary note reviewed: No new recommendations -Completed treatment with Levaquin x 5 days -Add nystatin 5 mL p.o. 4 times daily day #12/07 -Prednisone 40 mg daily D # 5 consider d/c in AM if pulm in agreement -DuoNebs 4 times daily and every 2 hours as needed Acute on chronic systolic congestive heart failure with ejection fraction 30 to 35% A-fib anticoagulated with Coumadin Coronary artery disease status post multiple stents Chest pain, acute coronary syndrome ruled out HTN Dyslipidemia -cardiology signed off, recommend possible right heart cath in the future to assess filling pressures -ASA 81 mg, Lipitor 40 mg, Plavix 75 mg daily -Lasix 40 mg PO daily -Metoprolol 12.5 mg twice daily -Imdur 30 mg daily -Warfarin 3 mg tonight, repeat INR in a.m. Acute kidney injury Acute urinary retention -Lasix 40 mg oral daily -Nephrology note reviewed: Decreased oral Lasix dosing, maintain fluid restriction, add Flomax, voiding trial tomorrow -Continue Logan catheter until improvement in renal function High anion gap metabolic acidosis, resolved Anemia of chronic disease Hyponatremia, improved Imaging: Chest x-ray: No acute process, COPD Data Review: Labs reviewed from today include INR of 1.6, BMP with BUN 60, creatinine 2.1, magnesium 2.2 DVT prophylaxis: Coumadin Anticipated discharge date: 2 to [address]: Home with home health This dictation was prepared using [employer] voice recognition software. Though every attempt is made to correct errors during dictation some may still exist. Objective - Vital Signs Vital signs: Vital Signs Temp 98.1 F 05/06/24 13:42 Pulse 72 05/06/24 16:37 Resp 16 05/06/24 13:42 BP 107/46 05/06/24 13:42 Pulse Ox 93 L 05/06/24 13:42 FiO2 Intake & Output 05/05/24 05/06/24 05/06/24 18:59 06:59 18:59 Intake Total 240 240 Output Total 2200 1100 800 Balance -2200 -860 -560 Weight 59 kg Intake: Oral 240 Other 240 Output: Urine 2200 1100 800 Other: Voiding Method Indwelling Catheter Indwelling Catheter Indwelling Catheter - Labs CBC & Chem 7: 05/05/24 06:10 05/06/24 03:49 Labs: Abnormal Lab Results - Last 24 Hours (Table) 05/06/24 05/06/24 Range/Units 03:49 03:49 PT 16.7 H (10.0-12.5) sec INR 1.6 H (<1.2) Anion Gap 15.60 H (4.00-12.00) mmol/L BUN 60.4 H (9.0-27.0) mg/dL Creatinine 2.1 H (0.6-1.5) mg/dL Est GFR (CKD-EPI) 24 L (>=60) BUN/Creatinine Ratio 28.76 H (12.00-20.00) Ratio Glucose 140 H (70-110) mg/dL Calcium 7.5 L (8.7-10.3) mg/dL
[2024-05-06] MEDS: WARFARIN 3 MG TAB PO ONE (18:29)
[2024-05-06] MEDS: ALBUTEROL NEBULIZED 2.5 MG/3 ML INHALATION PRN (20:54)
[2024-05-07 05:26] LABS: INR 1.9 (<1.2); Prothrombin Time 19.2 sec (10.0-12.5)
[2024-05-07 08:40] LABS: HCT 30.1 % (37.2-46.3); HGB 9.9 g/dL (12.0-15.0); MCH 29.2 pg (27.0-32.0); MCHC 32.9 g/dL (32.0-37.0); MCV 88.8 FL (80.0-97.0); Mean Platelet Volume 10.3 FL (9.5-12.2); NRBC Per 100 WBC 0 X 10*3/uL (0.00-0.01); Platelet Count 275 X 10*3/uL (140-440); RBC 3.39 X 10*6/uL (4.10-5.20); RDW 15.3 % (11.5-14.5); WBC 14.17 X 10*3/uL (4.50-10.00)
[2024-05-07] MEDS: FUROSEMIDE 40 MG TAB PO SCH (08:59)
[2024-05-07 09:31] LABS: BUN/Creat Ratio 32.94 Ratio (12.00-20.00); Blood Urea Nitrogen 59.3 mg/dL (9.0-27.0); Calcium 7.7 mg/dL (8.7-10.3); Carbon Dioxide 26.2 mmol/L (21.6-31.8); Chloride 98 mmol/L (96-109); Glucose 106 mg/dL (70-110); Magnesium 2.3 mg/dL (1.5-2.4); Potassium 3.5 mmol/L (3.5-5.5); Sodium 137 mmol/L (135-145)
--- NOTE | 2024-05-07 12:40 | P.PN ---
Subjective Progress Note Date: 05/07/24 This is a pleasant 78-year-old female patient who is currently hospitalized for worsening shortness of breath, cough, congestion, excessive sputum production, bronchospasm and wheezing. Note that her asthma was also admitted to the hospital for similar symptoms. She is known to have coronary artery disease. She is a bit complex coronary angioplasty and stenting and she suffers from chronic atrial fibrillation she is back in anticoagulation with warfarin. She has also systolic heart failure with an ejection fraction of 30 to 35% and chronic stage IIIb kidney disease. Upon arrival to the emergency, the patient was quite short of breath. Likely just level was at 1.2. The viral screen came back negative. The chest x-ray was consistent with CHF and pulmonary edema. Overnight, the patient became more short of breath. The patient was given additional dose of Lasix and she is feeling better at this point in time. No nausea. No vomiting. No abdominal pain. No change in mental status. The white cell count is at 10.2, hemoglobin 10.7, serum bicarb is at 18 with a BUN of 29 and a creatinine 1.4 and sodium is at 138. She is currently sitting up on the chair comfortably on 40s of oxygen by nasal cannula. Her last coronary intervention was in December 2023. At that time, the patient underwent stenting of the mid LAD and proximal LAD through the left radial artery approach. Her curre nt INR is at 1.8. 04/29/2024, the patient is being seen for a follow-up. Still bronchospastic. Still having coughing episodes. Still congested and wheezy. The patient is on a combination bronchodilators. The patient is also on steroids. The patient is also on diuretics and the patient is to be Lasix 40 mg IV every 12 hours. Negative fluid balance. She remains on oxygen at 3 L/min nasal cannula. Sputum culture still pending. Blood cultures are still negative. The white cell 11.3 with a hemoglobin of 0.4, INR is at 2.3 and the patient remains on warfarin. He has 29 with a creatinine of 1.4 from yesterday. Awaiting labs from today in terms of electrolytes and renal function. No interval worsening shortness of breath. Some improvement since yesterday. The patient is seen today April 30, 2024 in follow-up on the regular medical floor. She is awake and alert in no acute distress. Currently sitting up in a chair. She is maintaining O2 saturations in the 90s on 3 L/min per nasal cannula. Sputum culture is positive for haemophilus influenza. INR 2.3. White count 10.4. Hemoglobin 10.4. Platelets 331. Sodium 129. Potassium 3.8. Bicarb 18. BUN 51. Creatinine 2.1. Glucose 182. She is continued on bronchodilators, Solu-Medrol. Antibiotics in the form of Levaquin. Anticoagulated with warfarin. Remains on Bumex. Currently in a -1.1 L balance. The patient is seen today May 01, 2024 in follow-up on the regular medical floor. She is currently sitting up in a chair. Awake and alert in no acute distress. Breathing better today compared to yesterday. Still with a dry cough. Still with some chest wall pain from coughing. She is maintaining O2 saturations in the 90s on room air. She has been afebrile. Hemodynamically stable. Sputum culture was positive for H flu. Blood cultures revealed no growth. White count 9.0. Hemoglobin 11.2. Platelets 376. Sodium 128. Potassium 4.1. Bicarb 18. BUN 44. Creatinine 1.45. Glucose 129. She is continued on Levaquin. Remains on bronchodilators and steroids. Robitussin for cough. The patient is seen today May 02, 2024 in follow-up on the regular medical floor. She is resting comfortably in bed. Awake and alert in no acute distress. Maintaining O2 saturations in the 90s on room air. INR 2.7. Follow- up chest x-ray is unchanged. No worsening infiltrates. Sputum culture was positive for haemophilus influenza back on 04/27/2024. White count 14.8. Hemoglobin 10.9. Platelets 381. Sodium 129. Potassium 4.2. Bicarb 18. BUN 41. Creatinine 1.8. Glucose 123. Remains on bronchodilators. Antibiotics in the form of Levaquin. Prednisone taper. The patient is seen today May 03, 2024 in follow-up on the regular medical floor. She is resting in bed. Awake and alert in no acute distress. She is feeling better. She is continues with a dry nonproductive cough. She is maintaining O2 saturations up to 100% on 3 L/min per nasal cannula. Sputum culture was positive for haemophilus influenza. Blood cultures revealed no growth. White count 13.4. Hemoglobin 11.1. Platelets 350. INR 3.3. Sodium 129. Potassium 4.4. Bicarb 20. BUN 43. Creatinine 1.7. Glucose 111. Urinalysis with large blood, moderate leukocyte esterase, high RBCs and high WBCs. Ultrasound of the abdomen/bladder is pending. Nephrology is following. The patient is seen today May 04, 2024 in follow-up on the regular medical floor. She is currently resting in bed. Awake and alert in no acute distress. Denies any worsening shortness of breath, cough or congestion. Maintaining O2 saturations in the 90s on 2 L/min per nasal cannula. White count 16.6. Hemoglobin 11.9. Platelets 384. INR 2.6. Sodium 131. Potassium 4.0. Bicarb 22. BUN 56. Creatinine 1.84. She remains on IV diuretics. Continued on bronchodilators and prednisone taper. Anticoagulated with warfarin. Antibiotics in the form of Levaquin. Current urine output at 3 L today. The patient is seen today May 05, 2024 in follow-up on the regular medical floor. She is currently up in a chair. Awake and alert in no acute distress. Denies any worsening shortness of breath, cough or congestion. Maintaining good O2 saturations in the 90s on 3 L/min per nasal cannula. White count 19.2. Hemoglobin 11.1. Platelets 324. INR 1.8. Sodium 134. Potassium 3.7. Bicarb 23. BUN 61. Creatinine 2.1. Glucose 115. Prednisone taper. Remains on antibiotics in the form of Levaquin. She remains on oral diuretics. Anticoa gulated with warfarin. Current urine output 2.1 L. The patient is seen today May 06, 2024 on the regular medical floor. She is awake and alert in no acute distress. Sitting up in bed. Denies any worsening shortness of breath, cough or congestion. Chest x-ray reveals no acute pulmonary process. Evidence of COPD. INR 1.6. She remains on warfarin. Continued on oral diuretics. Continued on bronchodilators. Remains on a prednisone taper. The patient is seen today May 07, 2024 in follow-up on the regular medical floor. She is sitting up in bed. Awake and alert in no acute distress. Maintaining good O2 saturations in the 90s on 2 L/min per nasal cannula. Been afebrile. Globin 9.9. Platelets 275. INR 1.9. Sodium 137. Potassium 3.5. Bicarb 26. BUN 59. Creatinine 1.8. Glucose 106. She remains on oral diuretics, bronchodilators, warfarin. Objective - Vital Signs Vital signs: Vital Signs Temp 97.6 F 05/07/24 06:54 Pulse 76 05/07/24 09:05 Resp 17 05/07/24 06:54 BP 103/66 05/07/24 06:54 Pulse Ox 74 L 05/07/24 10:20 FiO2 Intake & Output 05/06/24 05/07/24 05/07/24 18:59 06:59 18:59 Intake Total 480 480 Output Total 800 Balance -320 480 Weight 69 kg Intake: Oral 480 480 Output: Urine 800 Other: Voiding Method Indwelling Catheter Indwelling Catheter # Bowel Movements 1 - Exam GENERAL EXAM: Alert, pleasant 78-year-old female, sitting up in bed, on 2 L nasal cannula, in no distress. HEAD: Normocephalic. EYES: Normal reaction of pupils, equal size. NOSE: Clear with pink turbinates. THROAT: No erythema or exudates. NECK: No masses, no JVD. CHEST: No chest wall deformity. LUNGS: Equal air entry with faint crackles in the posterior bases. CVS: S1 and S2 normal with no audible murmur, regular rhythm. ABDOMEN: No hepatosplenomegaly, normal bowel sounds, no guarding or rigidity. SPINE: No scoliosis or deformity SKIN: No rashes CENTRAL NERVOUS SYSTEM: No focal deficits, tone is normal in all 4 extremities. EXTREMITIES: There is one plus peripheral edema. No clubbing, no cyanosis. Peripheral pulses are intact. - Labs CBC & Chem 7: 05/07/24 04:14 05/07/24 04:14 Labs: Abnormal Lab Results - Last 24 Hours (Table) 05/06/24 05/07/24 05/07/24 Range/Units 03:49 04:14 04:14 WBC (4.50-10.00) X 10*3/uL RBC (4.10-5.20) X 10*6/uL Hgb (12.0-15.0) g/dL Hct (37.2-46.3) % RDW (11.5-14.5) % PT 19.2 H (10.0-12.5) sec INR 1.9 H (<1.2) Anion Gap 15.60 H 12.80 H (4.00-12.00) mmol/L BUN 60.4 H 59.3 H (9.0-27.0) mg/dL Creatinine 2.1 H 1.8 H (0.6-1.5) mg/dL Est GFR (CKD-EPI) 24 L 28 L (>=60) BUN/Creatinine Ratio 28.76 H 32.94 H (12.00-20.00) Ratio Glucose 140 H (70-110) mg/dL Calcium 7.5 L 7.7 L (8.7-10.3) mg/dL 05/07/24 Range/Units 04:14 WBC 14.17 H (4.50-10.00) X 10*3/uL RBC 3.39 L (4.10-5.20) X 10*6/uL Hgb 9.9 L (12.0-15.0) g/dL Hct 30.1 L (37.2-46.3) % RDW 15.3 H (11.5-14.5) % PT (10.0-12.5) sec INR (<1.2) Anion Gap (4.00-12.00) mmol/L BUN (9.0-27.0) mg/dL Creatinine (0.6-1.5) mg/dL Est GFR (CKD-EPI) (>=60) BUN/Creatinine Ratio (12.00-20.00) Ratio Glucose (70-110) mg/dL Calcium (8.7-10.3) mg/dL Assessment and Plan Assessment: Acute exacerbation of COPD with symptoms of bronchitis. Treated empirically with Levaquin Acute decompensated systolic heart failure secondary to above. Chest x-ray is consistent with CHF and pulmonary edema and being diuresed. Follow-up chest x- ray is clear Acute hypoxic respiratory failure secondary to above, on 2 L nasal cannula Acute on chronic stage IIIb kidney disease Chronic atrial fibrillation anticoagulated with warfarin, therapeutic Chronic systolic heart failure with an ejection fraction of 30 to 35% Coronary artery disease with recent coronary intervention and stenting of the LAD x 2 done in December 2023 Anemia of chronic disease Hypertension Hyperlipidemia Osteoarthritis Rheumatoid arthritis Migraines Previous history of CVA Previous history of melanoma of the face resected Previous history of diverticulosis Plan: The patient was seen and evaluated Labs and medications reviewed Continue 1500 cc fluid restriction Transitioned to oral diuretics Remains on bronchodilators, steroid taper Cleared for discharge once cleared by nephrology I have personally seen and examined the patient, performed the documentation and the assessment and plan as written. Number of minutes spent on the visit: 10.
--- NOTE | 2024-05-07 14:27 | P.PN ---
Subjective Progress Note Date: 05/07/24 Patient is being followed for acute kidney injury. Creatinine today is 1.8, down from 2.1 yesterday. Patient seen at bedside. Hemodynamically stable. No significant complaints today. Objective - Vital Signs Vital signs: Vital Signs Temp 97.6 F 05/07/24 06:54 Pulse 74 05/07/24 06:54 Resp 17 05/07/24 06:54 BP 103/66 05/07/24 06:54 Pulse Ox 99 05/07/24 06:54 FiO2 Intake & Output 05/06/24 05/07/24 05/07/24 18:59 06:59 18:59 Intake Total 480 480 Output Total 800 Balance -320 480 Weight 69 kg Intake: Oral 480 480 Output: Urine 800 Other: Voiding Method Indwelling Catheter Indwelling Catheter # Bowel Movements 1 - Exam Vitals signs are stable. General: No acute distress. Heart: Regular rate and rhythm present. Lungs: Bilateral breath sounds present; no rhonchi, wheezes, or rales. Abdomen: Soft, nontender. Extremities: No edema present. - Labs CBC & Chem 7: 05/07/24 04:14 05/07/24 04:14 Labs: Abnormal Lab Results - Last 24 Hours (Table) 05/06/24 05/07/24 Range/Units 03:49 04:14 PT 19.2 H (10.0-12.5) sec INR 1.9 H (<1.2) Anion Gap 15.60 H (4.00-12.00) mmol/L BUN 60.4 H (9.0-27.0) mg/dL Creatinine 2.1 H (0.6-1.5) mg/dL Est GFR (CKD-EPI) 24 L (>=60) BUN/Creatinine Ratio 28.76 H (12.00-20.00) Ratio Glucose 140 H (70-110) mg/dL Calcium 7.5 L (8.7-10.3) mg/dL Assessment and Plan Assessment: 1. Acute kidney injury. Nonoliguric ATN from low blood pressure, cardiorenal syndrome. Component of urinary retention is noted, void trial. WILL inhibitors on hold. Diuretics have been decreased. 2. Chronic kidney disease stage IIIa with baseline creatinine 1.3-1.5. Etiology is nephrosclerosis. 3. CHF exacerbation. Acute on chronic systolic with EF 30-35% on echo in November 2022. 4. Persistent Afib-rate is controlled on metoprolol; anticoagulation with Coumadin. 5. Hyponatremia, hypervolemic. Maintained on diuretics. 6. COPD exacerbation maintained on steroids. Plan: Continue oral Lasix. Continue Flomax. Add SGLT2 inhibitor in the near future if GFR stable. Continue low-salt diet. Continue fluid restriction. Avoid nephrotoxins. Continue to monitor renal function and urine output. I have seen and examined the patient with the resident and agree with assessment and plan. see changes below. Logan removed; monitor bladder scans to make sure no retention. Add farxiga. BMP, mag 2-3 days post d/c; f/u outpatient 1 week post d/c.
[2024-05-07] MEDS: DAPAGLIFLOZIN PROPANEDIOL 5 MG TABLET PO SCH (16:35)
[2024-05-07] MEDS: WARFARIN 3 MG TAB PO ONE (17:13)
--- NOTE | 2024-05-07 17:41 | P.PN ---
Subjective Progress Note Date: 05/07/24 Hospital Course: Patient is a very pleasant 78-year-old female with a past medical history of CAD status post recent stenting (states last stent placed 6 weeks ago), atrial fibrillation/flutter on anticoagulation with Coumadin, chronic systolic heart failure with previously known EF of 30 to 35%, hypertension, COPD not home oxygen dependent, and stage IIIb chronic kidney disease. She presented to the hospital with a chief complaint of chest pain/congestion and progressively worsening shortness of breath x 1 week. Upon arrival to our facility, patient underwent evaluation in the emergency department. Vital signs upon arrival show blood pressure 111/66, heart rate 91, respiratory rate 22, temp 98.0 F, and SpO2 of 98% on room air. EKG was completed showing atrial fibrillation with a controlled ventricular rate at 89 bpm with a left bundle branch block (LBBB is unchanged when compared to previous EKGs completed 01/05/2024). Chest x-ray completed showing cardiomegaly and emphysematous changes. Labs were completed and reviewed. CBC showing leukocytosis with WBC count of 11.7, normocytic anemia with hemoglobin of 9.9. Coagulation profile showing elevated PT of 18.3, INR of 1.8, and PTT of 43.4. D-dimer was negative at 0.29. BMP showing hypo natremia with sodium of 133, hypocarbia with bicarb of 17, and renal function consistent with known stage III CKD with BUN of 31, creatinine 1.40, and GFR of 36. Lactic acid 1.2. Liver profile showing elevated AST of 47 otherwise normal findings. Troponin was negative at less than 0.012. proBNP 2990. Influenza A, influenza B, RSV, and COVID PCR were negative. Patient admitted under our servi javier with consultation to cardiology and pulmonology. She was started on bronchodilators, Solu-Medrol, and diuretics. Sputum came back positive for haemophilus influenza and she was subsequently diagnosed with bronchitis. She developed urinary retention requiring Logan catheter replacement and acute kidney injury. Patient being followed by nephrology, cardiology, and pulmonology. Physical exam: Patient seen and fully evaluated at the bedside. Vital signs reviewed and stable. General: Nontoxic, no distress and appears stated age. Derm: Skin warm and dry, normal coloration for ethnicity. Head: Atraumatic, normocephalic and symmetric. Eyes: EOMs intact, no lid lag, and anicteric sclera Mouth: no lip lesions, mucus membranes moist Cardiovascular: Irregularly irregular, systolic murmur, positive posterior tibial pulses bilaterally, and cap refill < 2 seconds. Lungs: Respirations even, regular, and unlabored. Lungs diminished with soft diffuse expiratory wheezes in upper lobes. No rhonchi,, rales, or crackles noted Abdominal: soft, nontender to palpation, no guarding, no appreciable organomegaly Ext: ROM intact. No gross muscle atrophy, no edema, no contractures Neuro: Speech clear, face symmetrical and CN II-XII grossly intact with no noted focal neuro deficits Psych: Alert and oriented to person, place, time, and situation. Appropriate and pleasant affect. Assessment and Plan of Care: Acute respiratory failure with hypoxia Haemophillus influenzae bronchitis COPD exacerbation Thrush s/p treatment -Pulmonary following, discussed plan of care with terminal operations manager and pulmonary CARTON MAKING MACHINIST. -Completed treatment with Levaquin x 5 days -Oxygen evaluation was completed this morning. Patient 94% on 2 L at rest but desaturated down to 74% on room air with ambulation. -Add nystatin 5 mL p.o. 4 times daily day #3/ -Continue telemetry monitoring, SpO2 monitoring, and encouraging use of incentive Spirometry -Prednisone 40 mg daily D # , pulmonology recommending discharge home on prednisone taper. -DuoNebs 4 times daily and every 2 hours as needed Acute on chronic systolic heart failure Hyponatremia Acute kidney injury, resolved Chest pain, acute coronary event ruled out Subtherapeutic INR, resolved currently therapeutic History of CAD status post stenting Chronic atrial fibrillation -Cardiology following, reviewed documentation in chart, cardiology signed off, recommend possible right heart cath in the future to assess filling pressures -Continue cardiac medication regimen with aspirin 81 mg daily, amiodarone 200 mg daily, Plavix 75 mg daily, Lasix 40 mg daily, isosorbide mononitrate 30 mg daily, and metoprolol 12.5 mg twice daily. -INR therapeutic at 2.0. Continue Coumadin, pharmacy to dose. Acute kidney injury Urinary retention -Lasix 40 mg oral daily -Nephrology note reviewed: Logan catheter removed today for voiding trial, patient to continue Lasix 40 mg daily and was started on Farxiga 5 mg daily. -Plan to monitor patient overnight with I's and O's with repeat a.m. labs. Anemia of chronic disease Hyponatremia, improved High anion gap metabolic alkalosis, resolved -Hemoglobin at baseline. Will continue to monitor with repeat morning CBC to follow-up on hemoglobin levels and BMP to monitor renal function closely. Data and imaging reviewed: Morning labs reviewed. CBC showing leukocytosis with WBC count of 14.17 and hemoglobin of 9.9. Coagulation profile showing INR slightly subtherapeutic at 1.9. BMP showing BUN of 59.3, creatinine of 1.8, and GFR of 28. Magnesium normal findings at 2.3. Vital signs reviewed. Blood pressure 103/66, heart rate 74, respiratory rate 17, temp 97.6 F, and SpO2 of 99% on 2 L. Ambulatory pulse ox was completed with reports of patient desaturating down to 74% on room air with exertion and 92% on 2 L. CODE STATUS: Full Code DVT prophylaxis: Coumadin Anticipated discharge date: Tomorrow morning. Patient to be monitored overnight for close monitoring of I's and O's status post removal of Logan catheter for voiding challenge. Patient will require discharge home on oxygen. Anticipated discharge place: Home care Patient was seen independently by Nurse Practitioner. This document was prepared using [employer] dictation software. Please allow for errors in pleating machine operator while rare they do occur. I reviewed the documentation as provided by the SHANTANU above, who is the original author of this note. I agree with the documented assessment and plan, with the following changes: none Objective - Vital Signs Vital signs: Vital Signs Temp 97.6 F 05/07/24 06:54 Pulse 74 05/07/24 06:54 Resp 17 05/07/24 06:54 BP 103/66 05/07/24 06:54 Pulse Ox 99 05/07/24 06:54 FiO2 Intake & Output 05/06/24 05/07/24 05/07/24 18:59 06:59 18:59 Intake Total 480 480 Output Total 800 Balance -320 480 Weight 69 kg Intake: Oral 480 480 Output: Urine 800 Other: Voiding Method Indwelling Catheter Indwelling Catheter # Bowel Movements 1 - Labs CBC & Chem 7: 05/07/24 04:14 05/07/24 04:14 Labs: Abnormal Lab Results - Last 24 Hours (Table) 05/06/24 05/07/24 Range/Units 03:49 04:14 PT 19.2 H (10.0-12.5) sec INR 1.9 H (<1.2) Anion Gap 15.60 H (4.00-12.00) mmol/L BUN 60.4 H (9.0-27.0) mg/dL Creatinine 2.1 H (0.6-1.5) mg/dL Est GFR (CKD-EPI) 24 L (>=60) BUN/Creatinine Ratio 28.76 H (12.00-20.00) Ratio Glucose 140 H (70-110) mg/dL Calcium 7.5 L (8.7-10.3) mg/dL
[2024-05-08 05:05] LABS: INR 2.5 (<1.2); Prothrombin Time 24.3 sec (10.0-12.5)
[2024-05-08 07:25] VITALS: BP 116/58
[2024-05-08 07:33] VITALS: RESP 16; TEMP 97.6
[2024-05-08 08:55] LABS: HCT 30.7 % (37.2-46.3); HGB 10.1 g/dL (12.0-15.0); MCH 29.1 pg (27.0-32.0); MCHC 32.9 g/dL (32.0-37.0); MCV 88.5 FL (80.0-97.0); Mean Platelet Volume 10.3 FL (9.5-12.2); NRBC Per 100 WBC 0 X 10*3/uL (0.00-0.01); Platelet Count 303 X 10*3/uL (140-440); RBC 3.47 X 10*6/uL (4.10-5.20); RDW 15.4 % (11.5-14.5); WBC 12.83 X 10*3/uL (4.50-10.00)
--- NOTE | 2024-05-08 11:17 | P.DS ---
Providers Date of admission: 04/28/24 17:04 Expected date of discharge: 05/08/24 Attending physician: Audrey Grissom DO Consults: 04/27/24 15:52 Consult Physician Routine Consulting Provider: Rebecca Bajwa Consult Reason/Comments: copd Do you want consulting provider notified?: Yes 05/02/24 13:33 Consult Physician Routine Consulting Provider: Lindsey Woods Consult Reason/Comments: HEENA Do you want consulting provider notified?: Yes Primary care physician: Dex Mcneal MD Hospital Course: Discharge Diagnosis: Acute respiratory failure with hypoxia. Improved. However patient will require home oxygen for her COPD as ambulatory pulse ox shows patient to desaturate down to 82% on room air increasing to 90% on 2 L O2. Patient discharged home on continuous oxygen. Haemophillus influenzae bronchitis COPD exacerbation Thrush Acute on chronic systolic heart failure Hyponatremia, resolved. Acute kidney injury, resolved Chest pain, acute coronary event ruled out Subtherapeutic INR, resolved currently therapeutic at 2.5 on day of discharge History of CAD status post stenting Chronic atrial fibrillation Urinary retention, resolved. Anemia of chronic disease. Hemoglobin stable at 10.1 on day of discharge. High anion gap metabolic alkalosis, resolved Hospital Course: Patient is a very pleasant 78-year-old female with a past medical history of CAD status post recent stenting (states last stent placed 6 weeks ago), atrial fibrillation/flutter on anticoagulation with Coumadin, chronic systolic heart failure with previously known EF of 30 to 35%, hypertension, COPD not home oxygen dependent, and stage IIIb chronic kidney disease. She presented to the hospital with a chief complaint of chest pain/congestion and progressively worsening shortness of breath x 1 week. Upon arrival to our facility, patient underwent evaluation in the emergency department. Vital signs upon arrival show blood pressure 111/66, heart rate 91, respiratory rate 22, temp 98.0 F, and SpO2 of 98% on room air. EKG was completed showing atrial fibrillation with a controlled ventricular rate at 89 bpm with a left bundle branch block (LBBB is unchanged when compared to previous EKGs completed 01/05/2024). Chest x-ray completed showing cardiomegaly and emphysematous changes. Labs were completed and reviewed. CBC showing leukocytosis with WBC count of 11.7, normocytic anemia with hemoglobin of 9.9. Coagulation profile showing elevated PT of 18.3, INR of 1.8, and PTT of 43.4. D-dimer was negative at 0.29. BMP showing hyponatremia with sodium of 133, hypocarbia with bicarb of 17, and renal function consistent with known stage III CKD with BUN of 31, creatinine 1.40, and GFR of 36. Lactic acid 1.2. Liver profile showing elevated AST of 47 otherwise normal findings. Troponin was negative at less than 0.012. proBNP 2990. Influenza A, influenza B, RSV, and COVID PCR were negative. Patient admitted under our services with consultation to cardiology and pulmonology. She was started on bronchodilators, Solu-Medrol, and diuretics. Sputum came back positive for haemophilus influenza and she was subsequently diagnosed with bronchitis. She developed urinary retention requiring Logan catheter replacement and acute kidney injury. Patient being followed by nephrology, cardiology, and pulmonology. Logan catheter was later removed and patient underwent voiding challenge and no longer had any difficulties with urination. Steroids were tapered down and to oral prednisone. Patient tolerated well showing significant improvement each day.. She was cleared by cardiology, nephrology, and pulmonology. Patient medically stable for discharge home at this time however patient will require continuous home oxygen as patient desaturates down to 82% with minimal exertion on room air. Home oxygen set up. Patient to follow-up outpatient with PCP in 1 to 2 days, medical billing coder 3 weeks, call center support consultant in 2 days, and mural artist in 1 week. Patient discharged home with home care along with prescription for repeat BMP and magnesium in 3 days with results to be sent to PCP and mural artist for follow-up and management. Physical exam: Vital signs reviewed and stable. General: Nontoxic, no distress and appears stated age. Derm: Skin warm and dry, normal coloration for ethnicity. Head: Atraumatic, normocephalic and symmetric. Eyes: EOMs intact, no lid lag, and anicteric sclera Mouth: no lip lesions, mucus membranes moist Cardiovascular: Irregularly irregular, systolic murmur, positive posterior tibial pulses bilaterally, and cap refill < 2 seconds. Lungs: Respirations even, regular, and unlabored. Lungs diminished. No wheezes, rhonchi,, rales, or crackles noted Abdominal: soft, nontender to palpation, no guarding, no appreciable organomegaly Ext: ROM intact. No gross muscle atrophy, no edema, no contractures Neuro: Speech clear, face symmetrical and CN II-XII grossly intact with no noted focal neuro deficits Psych: Alert and oriented to person, place, time, and situation. Appropriate and pleasant affect. A total of 41 minutes of time were spent preparing this complex discharge summary. Pt was discharged on 05/08/2024 at 9:57 AM. Patient was seen independently by Nurse Practitioner. This document was prepared using [employer] dictation software. Please allow for errors in geologist while rare they do occur. Rishi Hernandez NP rendered care for this patient independently, reviewed the findings and plan as documented in the note above. I did not physically speak with or examine the patient on this date. Patient Condition at Discharge: Stable Plan - Discharge Summary New Discharge Prescriptions: New Furosemide [Lasix] 40 mg PO DAILY 30 Days #30 tab Nystatin 100,000 Unit/ml Susp [Mycostatin Oral Susp] 500,000 unit PO QID 5 Days #100 ml predniSONE See Taper PO DIRECTED 12 Days #30 tab Empagliflozin [Jardiance] 10 mg PO DAILY 30 Days #30 tablet Tamsulosin [Flomax] 0.4 mg PO PC-BRKFST 30 Days #30 cap Continue Pantoprazole Sodium [Protonix] 40 mg PO BID Lysine 1,000 mg PO DAILY Warfarin Sodium 2 mg PO SUTUWETHSA@2100 Ipratropium Nebulized [Atrovent Nebulized 0.2 MG/ML] 0.5 mg INHALATION RT-BID DULoxetine HCL [Cymbalta] 60 mg PO DAILY Glucosam/Chond/Hyalu/Cf Borate [Move Free Joint Health Tablet] 1 tab PO DAILY Acetaminophen [Tylenol Extra Strength] 1,000 mg PO Q6H PRN PRN Reason: Fever And/ Or Pain Atorvastatin [Lipitor] 40 mg PO HS #90 tab Clopidogrel [Plavix] 75 mg PO DAILY #90 tab Cyanocobalamin (Vitamin B-12) [Vitamin B-12] 1,000 mcg PO DAILY Warfarin Sodium 4 mg PO MOFR@2100 Pregabalin [Lyrica] 100 mg PO BID #6 cap Albuterol Inhaler [Ventolin Hfa Inhaler] 2 puff INHALATION RT-Q6H PRN PRN Reason: Shortness Of Breath Cholecalciferol (Vitamin D3) [Vitamin D3 (50 Mcg = 2000 Iu)] 50 mcg PO DAILY Vit C/E/Zn/Coppr/Lutein/Zeaxan [Preservision Areds 2 Softgel] 1 cap PO DAILY Aspirin 81 mg PO DAILY #7 tab Isosorbide Mononitrate ER [Imdur] 30 mg PO DAILY #90 tab Metoprolol Tartrate [Lopressor] 12.5 mg PO BID #60 tab estradioL 2 mg PO DAILY Discontinued Spironolactone [Aldactone] 12.5 mg PO DAILY lisinopriL [Zestril] 2.5 mg PO DAILY Amiodarone [Cordarone] 200 mg PO DAILY Furosemide [Lasix] 20 mg PO DAILY Discharge Medication List Pantoprazole Sodium [Protonix] 40 mg PO BID 05/14/14 [History] Cyanocobalamin (Vitamin B-12) [Vitamin B-12] 1,000 mcg PO DAILY 06/16/22 [History] Lysine 1,000 mg PO DAILY 08/03/22 [History] Warfarin Sodium 4 mg PO MOFR@209912/07/22 [History] Warfarin Sodium 2 mg PO SUTUWETHSA@209901/25/23 [History] DULoxetine HCL [Cymbalta] 60 mg PO DAILY 07/27/23 [History] Ipratropium Nebulized [Atrovent Nebulized 0.2 MG/ML] 0.5 mg INHALATION RT-BID 07/27/23 [History] Pregabalin [Lyrica] 100 mg PO BID #6 cap 08/04/23 [Rx] Acetaminophen [Tylenol Extra Strength] 1,000 mg PO Q6H PRN 12/22/23 [History] Albuterol Inhaler [Ventolin Hfa Inhaler] 2 puff INHALATION RT-Q6H PRN 12/22/23 [History] Cholecalciferol (Vitamin D3) [Vitamin D3 (50 Mcg = 2000 Iu)] 50 mcg PO DAILY 12/22/23 [History] Glucosam/Chond/Hyalu/Cf Borate [Move Free Joint Health Tablet] 1 tab PO DAILY 12/22/23 [History] Vit C/E/Zn/Coppr/Lutein/Zeaxan [Preservision Areds 2 Softgel] 1 cap PO DAILY 12/22/23 [History] Atorvastatin [Lipitor] 40 mg PO HS #90 tab 12/25/23 [Rx] Aspirin 81 mg PO DAILY #7 tab 01/06/24 [Rx] Clopidogrel [Plavix] 75 mg PO DAILY #90 tab 01/06/24 [Rx] Isosorbide Mononitrate ER [Imdur] 30 mg PO DAILY #90 tab 01/06/24 [Rx] Metoprolol Tartrate [Lopressor] 12.5 mg PO BID #60 tab 01/06/24 [Rx] estradioL 2 mg PO DAILY 04/27/24 [History] Empagliflozin [Jardiance] 10 mg PO DAILY 30 Days #30 tablet 05/08/24 [Rx] Furosemide [Lasix] 40 mg PO DAILY 30 Days #30 tab 05/08/24 [Rx] Nystatin 100,000 Unit/ml Susp [Mycostatin Oral Susp] 500,000 unit PO QID 5 Days #100 ml 05/08/24 [Rx] Tamsulosin [Flomax] 0.4 mg PO PC-BRKFST 30 Days #30 cap 05/08/24 [Rx] predniSONE See Taper PO DIRECTED 12 Days #30 tab 05/08/24 [Rx] Follow up Appointment(s)/Referral(s): Lindsey Woods MD [STAFF PHYSICIAN] - 05/17/24 10:40 am (Patient will get blood work on 05/11. ) Sergey Castorena MD [STAFF PHYSICIAN] - 05/10/24 2:15 pm [facility],Equipment [NON-STAFF] - As Needed (*Please call [facility] once home to arrange delivery of the oxygen concentrator today.) Dex Mcneal MD [Primary Care Provider] - 05/21/24 8:00 am [facility], [NON-STAFF] - 1-2 Days ([facility] will call you to set up your in home nursing, occupational therapy, and physical therapy visits. ) Brannon Addison MD [STAFF PHYSICIAN] - 1 Week (Dr. Vale office will call [facility]. ) Rebecca Bajwa MD [STAFF PHYSICIAN] - 06/11/24 2:00 pm Ambulatory/Diagnostic Orders: Basic Metabolic Panel [LAB.AMB] Time Frame: 3 Days, Location: None Selected Magnesium [LAB.AMB] Time Frame: 3 Days, Location: None Selected Patient Instructions/Handouts: Using Oxygen at Home (DC), COPD (Chronic Obstructive Pulmonary Disease) (DC), Community Acquired Pneumonia (DC) Activity/Diet/Wound Care/Special Instructions: Activity: As tolerated. Take breaks as needed. Diet: Heart healthy and carb consistent diet. Avoid salts, or foods with hidden salts such as canned or boxed foods and frozen dinners. Extra salt makes your heart work harder and traps the fluid in your body for longer. Special Instructions: Take all of your medications as directed and remember to keep all of your doctor's appointments and follow-up as needed. Thank you for allowing us to participate in your care, it was truly a pleasure having you for our patient!!! . Discharge Disposition: HOME WITH HOME HEALTH SERVICES
--- NOTE | 2024-05-08 11:45 | P.PN ---
Subjective Progress Note Date: 05/08/24 Patient is being followed for acute kidney injury. Creatinine yesterday was 1.8. Logan catheter was discontinued yesterday, patient voiding appropriately. Patient seen at bedside. Hemodynamically stable. No significant complaints today. Objective - Vital Signs Vital signs: Vital Signs Temp 97.6 F 05/08/24 06:50 Pulse 74 05/08/24 06:50 Resp 16 05/08/24 06:50 BP 116/58 05/08/24 07:24 Pulse Ox 100 05/08/24 06:50 FiO2 Intake & Output 05/07/24 05/08/24 05/08/24 18:59 06:59 18:59 Output Total 500 Balance -500 Weight 76.1 kg Output: Urine 500 Other: Voiding Method Indwelling Catheter - Exam Vitals signs are stable. General: No acute distress. Heart: Regular rate and rhythm present. Lungs: Bilateral breath sounds present; no rhonchi, wheezes, or rales. Abdomen: Soft, nontender. Extremities: No edema present. - Labs CBC & Chem 7: 05/08/24 04:28 05/08/24 04:28 Labs: Abnormal Lab Results - Last 24 Hours (Table) 05/07/24 05/07/24 05/08/24 Range/Units 04:14 04:14 04:28 WBC 14.17 H (4.50-10.00) X 10*3/uL RBC 3.39 L (4.10-5.20) X 10*6/uL Hgb 9.9 L (12.0-15.0) g/dL Hct 30.1 L (37.2-46.3) % RDW 15.3 H (11.5-14.5) % PT 24.3 H (10.0-12.5) sec INR 2.5 H (<1.2) Anion Gap 12.80 H (4.00-12.00) mmol/L BUN 59.3 H (9.0-27.0) mg/dL Creatinine 1.8 H (0.6-1.5) mg/dL Est GFR (CKD-EPI) 28 L (>=60) BUN/Creatinine Ratio 32.94 H (12.00-20.00) Ratio Calcium 7.7 L (8.7-10.3) mg/dL Assessment and Plan Assessment: 1. Acute kidney injury. Nonoliguric ATN from low blood pressure, cardiorenal syndrome. Component of urinary retention is noted, void trial. WILL inhibitors on hold. Diuretics have been decreased. 2. Chronic kidney disease stage IIIa with baseline creatinine 1.3-1.5. Etiology is nephrosclerosis. 3. CHF exacerbation. Acute on chronic systolic with EF 30-35% on echo in November 2022. 4. Persistent Afib-rate is controlled on metoprolol; anticoagulation with Coumadin. 5. Hyponatremia, hypervolemic. Maintained on diuretics. 6. COPD exacerbation maintained on steroids. Plan: Continue oral Lasix. Continue Flomax. Continue SGLT2 inhibitor. Continue low-salt diet. Continue fluid restriction. Avoid nephrotoxins. Continue to monitor renal function and urine output. BMP, magnesium 2-3 days post discharge. Follow-up outpatient 1 week post discharge. Advised patient on importance of fluid restriction and low-salt diet at home. If patient gains more than 3 pounds in a week, let physician know. Patient is cleared for discharge from nephrology standpoint. Patient seen and examined with the resident and agree with assessment and plan. Renal function fairly stable.
[2024-05-08 12:14] LABS: Magnesium 2.3 mg/dL (1.5-2.4)
[2024-05-08 12:18] LABS: BUN/Creat Ratio 27.65 Ratio (12.00-20.00); Blood Urea Nitrogen 55.3 mg/dL (9.0-27.0); Calcium 8.2 mg/dL (8.7-10.3); Carbon Dioxide 22.9 mmol/L (21.6-31.8); Chloride 102 mmol/L (96-109); Glucose 100 mg/dL (70-110); Potassium 3.8 mmol/L (3.5-5.5); Sodium 141 mmol/L (135-145)
[2024-05-08 12:25] VITALS: PULSE 70
--- NOTE | 2024-05-08 14:32 | P.PN ---
Subjective Progress Note Date: 05/08/24 This is a pleasant 78-year-old female patient who is currently hospitalized for worsening shortness of breath, cough, congestion, excessive sputum production, bronchospasm and wheezing. Note that her asthma was also admitted to the hospital for similar symptoms. She is known to have coronary artery disease. She is a bit complex coronary angioplasty and stenting and she suffers from chronic atrial fibrillation she is back in anticoagulation with warfarin. She has also systolic heart failure with an ejection fraction of 30 to 35% and chronic stage IIIb kidney disease. Upon arrival to the emergency, the patient was quite short of breath. Likely just level was at 1.2. The viral screen came back negative. The chest x-ray was consistent with CHF and pulmonary edema. Overnight, the patient became more short of breath. The patient was given additional dose of Lasix and she is feeling better at this point in time. No nausea. No vomiting. No abdominal pain. No change in mental status. The white cell count is at 10.2, hemoglobin 10.7, serum bicarb is at 18 with a BUN of 29 and a creatinine 1.4 and sodium is at 138. She is currently sitting up on the chair comfortably on 40s of oxygen by nasal cannula. Her last coronary intervention was in December 2023. At that time, the patient underwent stenting of the mid LAD and proximal LAD through the left radial artery approach. Her curre nt INR is at 1.8. 04/29/2024, the patient is being seen for a follow-up. Still bronchospastic. Still having coughing episodes. Still congested and wheezy. The patient is on a combination bronchodilators. The patient is also on steroids. The patient is also on diuretics and the patient is to be Lasix 40 mg IV every 12 hours. Negative fluid balance. She remains on oxygen at 3 L/min nasal cannula. Sputum culture still pending. Blood cultures are still negative. The white cell 11.3 with a hemoglobin of 0.4, INR is at 2.3 and the patient remains on warfarin. He has 29 with a creatinine of 1.4 from yesterday. Awaiting labs from today in terms of electrolytes and renal function. No interval worsening shortness of breath. Some improvement since yesterday. The patient is seen today April 30, 2024 in follow-up on the regular medical floor. She is awake and alert in no acute distress. Currently sitting up in a chair. She is maintaining O2 saturations in the 90s on 3 L/min per nasal cannula. Sputum culture is positive for haemophilus influenza. INR 2.3. White count 10.4. Hemoglobin 10.4. Platelets 331. Sodium 129. Potassium 3.8. Bicarb 18. BUN 51. Creatinine 2.1. Glucose 182. She is continued on bronchodilators, Solu-Medrol. Antibiotics in the form of Levaquin. Anticoagulated with warfarin. Remains on Bumex. Currently in a -1.1 L balance. The patient is seen today May 01, 2024 in follow-up on the regular medical floor. She is currently sitting up in a chair. Awake and alert in no acute distress. Breathing better today compared to yesterday. Still with a dry cough. Still with some chest wall pain from coughing. She is maintaining O2 saturations in the 90s on room air. She has been afebrile. Hemodynamically stable. Sputum culture was positive for H flu. Blood cultures revealed no growth. White count 9.0. Hemoglobin 11.2. Platelets 376. Sodium 128. Potassium 4.1. Bicarb 18. BUN 44. Creatinine 1.45. Glucose 129. She is continued on Levaquin. Remains on bronchodilators and steroids. Robitussin for cough. The patient is seen today May 02, 2024 in follow-up on the regular medical floor. She is resting comfortably in bed. Awake and alert in no acute distress. Maintaining O2 saturations in the 90s on room air. INR 2.7. Follow- up chest x-ray is unchanged. No worsening infiltrates. Sputum culture was positive for haemophilus influenza back on 04/27/2024. White count 14.8. Hemoglobin 10.9. Platelets 381. Sodium 129. Potassium 4.2. Bicarb 18. BUN 41. Creatinine 1.8. Glucose 123. Remains on bronchodilators. Antibiotics in the form of Levaquin. Prednisone taper. The patient is seen today May 03, 2024 in follow-up on the regular medical floor. She is resting in bed. Awake and alert in no acute distress. She is feeling better. She is continues with a dry nonproductive cough. She is maintaining O2 saturations up to 100% on 3 L/min per nasal cannula. Sputum culture was positive for haemophilus influenza. Blood cultures revealed no growth. White count 13.4. Hemoglobin 11.1. Platelets 350. INR 3.3. Sodium 129. Potassium 4.4. Bicarb 20. BUN 43. Creatinine 1.7. Glucose 111. Urinalysis with large blood, moderate leukocyte esterase, high RBCs and high WBCs. Ultrasound of the abdomen/bladder is pending. Nephrology is following. The patient is seen today May 04, 2024 in follow-up on the regular medical floor. She is currently resting in bed. Awake and alert in no acute distress. Denies any worsening shortness of breath, cough or congestion. Maintaining O2 saturations in the 90s on 2 L/min per nasal cannula. White count 16.6. Hemoglobin 11.9. Platelets 384. INR 2.6. Sodium 131. Potassium 4.0. Bicarb 22. BUN 56. Creatinine 1.84. She remains on IV diuretics. Continued on bronchodilators and prednisone taper. Anticoagulated with warfarin. Antibiotics in the form of Levaquin. Current urine output at 3 L today. The patient is seen today May 05, 2024 in follow-up on the regular medical floor. She is currently up in a chair. Awake and alert in no acute distress. Denies any worsening shortness of breath, cough or congestion. Maintaining good O2 saturations in the 90s on 3 L/min per nasal cannula. White count 19.2. Hemoglobin 11.1. Platelets 324. INR 1.8. Sodium 134. Potassium 3.7. Bicarb 23. BUN 61. Creatinine 2.1. Glucose 115. Prednisone taper. Remains on antibiotics in the form of Levaquin. She remains on oral diuretics. Anticoa gulated with warfarin. Current urine output 2.1 L. The patient is seen today May 06, 2024 on the regular medical floor. She is awake and alert in no acute distress. Sitting up in bed. Denies any worsening shortness of breath, cough or congestion. Chest x-ray reveals no acute pulmonary process. Evidence of COPD. INR 1.6. She remains on warfarin. Continued on oral diuretics. Continued on bronchodilators. Remains on a prednisone taper. The patient is seen today May 07, 2024 in follow-up on the regular medical floor. She is sitting up in bed. Awake and alert in no acute distress. Maintaining good O2 saturations in the 90s on 2 L/min per nasal cannula. Been afebrile. Globin 9.9. Platelets 275. INR 1.9. Sodium 137. Potassium 3.5. Bicarb 26. BUN 59. Creatinine 1.8. Glucose 106. She remains on oral diuretics, bronchodilators, warfarin. The patient is seen today May 08, 2024 in follow-up on the regular medical floor. She is currently up in a chair at the bedside. Awake and alert in no acute distress. Maintaining good O2 saturations in the 90s on 2 L/min per nasal cannula. White count 12.8. Hemoglobin 10.1. Platelets 303. INR 2.5. Sodium 141. Potassium 3.8. Bicarb 23. BUN 55. Creatinine 2.0. Glucose 100. She remains on bronchodilators, oral diuretics, warfarin. Objective - Vital Signs Vital signs: Vital Signs Temp 97.6 F 05/08/24 06:50 Pulse 70 05/08/24 12:25 Resp 16 05/08/24 06:50 BP 116/58 05/08/24 07:24 Pulse Ox 82 L 05/08/24 10:16 FiO2 Intake & Output 05/07/24 05/08/24 05/08/24 18:59 06:59 18:59 Output Total 500 Balance -500 Weight 76.1 kg Output: Urine 500 Other: Voiding Method Indwelling Catheter - Exam GENERAL EXAM: Alert, 78-year-old female, up in a chair, on 2 L nasal cannula, in no distress. HEAD: Normocephalic. EYES: Normal reaction of pupils, equal size. NOSE: Clear with pink turbinates. THROAT: No erythema or exudates. NECK: No masses, no JVD. CHEST: No chest wall deformity. LUNGS: Equal air entry with faint crackles in the posterior bases. CVS: S1 and S2 normal with no audible murmur, regular rhythm. ABDOMEN: No hepatosplenomegaly, normal bowel sounds, no guarding or rigidity. SPINE: No scoliosis or deformity SKIN: No rashes CENTRAL NERVOUS SYSTEM: No focal deficits, tone is normal in all 4 extremities. EXTREMITIES: There is one plus peripheral edema. No clubbing, no cyanosis. Peripheral pulses are intact. - Labs CBC & Chem 7: 05/08/24 04:28 05/08/24 04:28 Labs: Abnormal Lab Results - Last 24 Hours (Table) 05/08/24 05/08/24 05/08/24 Range/Units 04:28 04:28 04:28 WBC 12.83 H (4.50-10.00) X 10*3/uL RBC 3.47 L (4.10-5.20) X 10*6/uL Hgb 10.1 L (12.0-15.0) g/dL Hct 30.7 L (37.2-46.3) % RDW 15.4 H (11.5-14.5) % PT 24.3 H (10.0-12.5) sec INR 2.5 H (<1.2) Anion Gap 16.10 H (4.00-12.00) mmol/L BUN 55.3 H (9.0-27.0) mg/dL Creatinine 2.0 H (0.6-1.5) mg/dL Est GFR (CKD-EPI) 25 L (>=60) BUN/Creatinine Ratio 27.65 H (12.00-20.00) Ratio Calcium 8.2 L (8.7-10.3) mg/dL Assessment and Plan Assessment: Acute exacerbation of COPD with symptoms of bronchitis. Treated empirically with Levaquin Acute decompensated systolic heart failure secondary to above. Chest x-ray is consistent with CHF and pulmonary edema and being diuresed. Follow-up chest x- ray is clear Acute hypoxic respiratory failure secondary to above, on 2 L nasal cannula Acute on chronic stage IIIb kidney disease Chronic atrial fibrillation anticoagulated with warfarin, therapeutic Chronic systolic heart failure with an ejection fraction of 30 to 35% Coronary artery disease with recent coronary intervention and stenting of the LAD x 2 done in December 2023 Anemia of chronic disease Hypertension Hyperlipidemia Osteoarthritis Rheumatoid arthritis Migraines Previous history of CVA Previous history of melanoma of the face resected Previous history of diverticulosis Plan: The patient was seen and evaluated Labs and medications reviewed To be evaluated for possible home oxygen Cleared for discharge once cleared by nephrology I have personally seen and examined the patient, performed the documentation and the assessment and plan as written. Number of minutes spent on the visit: 10.
[2024-05-08] MEDS ORDERED: WARFARIN 2 MG TAB PO ONE (18:00)
== END 2024-05-08 13:56 | disposition home health service (06) | DRG 291 ==
LOC: EC 12:15 → 4SSUR 15:52 → OBSVTOIN 04-28 17:04
PROVIDERS: ADMIT Internal Medicine; ATTEND Internal Medicine
DX: I13.0 Hypertensive heart and chronic kidney disease with heart failure and stage 1 through stage 4 chronic kidney disease, or unspecified chronic kidney disease (principal); I50.23 Acute on chronic systolic (congestive) heart failure; J96.21 Acute and chronic respiratory failure with hypoxia; J96.22 Acute and chronic respiratory failure with hypercapnia; N17.0 Acute kidney failure with tubular necrosis; J44.1 Chronic obstructive pulmonary disease with (acute) exacerbation; I48.21 Permanent atrial fibrillation; J44.0 Chronic obstructive pulmonary disease with (acute) lower respiratory infection; E87.1 Hypo-osmolality and hyponatremia; B37.0 Candidal stomatitis; E87.4 Mixed disorder of acid-base balance; I42.8 Other cardiomyopathies; Z79.01 Long term (current) use of anticoagulants; Z95.5 Presence of coronary angioplasty implant and graft; I25.10 Atherosclerotic heart disease of native coronary artery without angina pectoris; D63.8 Anemia in other chronic diseases classified elsewhere; N18.30 Chronic kidney disease, stage 3 unspecified; E78.5 Hyperlipidemia, unspecified; M06.9 Rheumatoid arthritis, unspecified; G43.909 Migraine, unspecified, not intractable, without status migrainosus; M19.90 Unspecified osteoarthritis, unspecified site; I44.7 Left bundle-branch block, unspecified; N18.31 Chronic kidney disease, stage 3a; Z79.52 Long term (current) use of systemic steroids; Z88.1 Allergy status to other antibiotic agents; Z88.8 Allergy status to other drugs, medicaments and biological substances; I08.1 Rheumatic disorders of both mitral and tricuspid valves; I25.2 Old myocardial infarction; I69.398 Other sequelae of cerebral infarction; N18.32 Chronic kidney disease, stage 3b; R79.1 Abnormal coagulation profile; Z79.02 Long term (current) use of antithrombotics/antiplatelets; Z79.82 Long term (current) use of aspirin; I27.20 Pulmonary hypertension, unspecified; I73.00 Raynaud's syndrome without gangrene; Z79.890 Hormone replacement therapy; Z79.899 Other long term (current) drug therapy; J20.1 Acute bronchitis due to Hemophilus influenzae; R33.8 Other retention of urine; Z82.49 Family history of ischemic heart disease and other diseases of the circulatory system; Z85.820 Personal history of malignant melanoma of skin; Z87.442 Personal history of urinary calculi; Z90.710 Acquired absence of both cervix and uterus; Z96.641 Presence of right artificial hip joint; Z96.653 Presence of artificial knee joint, bilateral; Z99.81 Dependence on supplemental oxygen; Z90.49 Acquired absence of other specified parts of digestive tract
CPT/HCPCS: 36415; 36600; 71045; 71046; 76770; 80048; 80053; 81001; 82805; 83605; 83735; 83880; 84484; 85025; 85027; 85379; 85610; 85730; 87040; 87070; 87205; 87449; 87636; 93005; 94640; 94760; 96361; 96365; 96375; 99291

== ENCOUNTER 2024-05-31 09:00 | Emergency (ER) | payer MEDICARE, BC ==
[2024-05-31] MEDS ORDERED: SODIUM CHLORIDE 0.9% 1,000 ML BAG ONE (10:00)
[2024-05-31] MEDS ORDERED: IPRATROPIUM-ALBUTEROL 3 ML NEB ONE (11:07)
[2024-05-31] MEDS ORDERED: DEXAMETHASONE SOD PHOSPHATE 10 MG/ML 1 ML VIAL ONE (12:49)
--- NOTE | 2024-06-28 17:16 | XR ---
Patient: Lily Oliver R Ordering Physician: Unknown, Unknown ID: [id number] Phone, Pager: Phone: N/A Pager: N/A : 1945 Age/Gender: 78Y, F Primary Location: N/A Procedure: XR chest 2V Study Date : 05/31/2024 10:31:01 AM EXAMINATION TYPE: XR chest 2V DATE OF EXAM: 06/17/2024 11:09 AM CLINICAL INDICATION: Shortness of breath COMPARISON: Chest radiographs from 05/05/2024 TECHNIQUE: XR chest 2V Frontal view of the chest. FINDINGS: Lungs/Pleura: There is flattening of the diaphragm with increased lucency of the lungs. No evidence o f pneumothorax, pleural effusion or focal consolidation. Pulmonary vascularity: Unremarkable. Heart/mediastinum: Cardiomediastinal silhouette is enlarged. Musculoskeletal: No acute osseous pathology. There is fixation hardware in the lower cervical spine. Multiple degeneration changes of the spine. Other findings: None IMPRESSION: 1. No acute cardiopulmonary disease process. 2. COPD changes.
== END 2024-05-31 13:07 | disposition home or self-care (01) ==
LOC: EC 09:00
CPT/HCPCS: 71046; 80053; 83735; 83880; 84100; 84484; 85025; 85610; 85730; 93005; 94640; 96374; 99285

== ENCOUNTER 2024-07-04 19:09 | Emergency (ER) | payer MEDICARE, BC ==
[2024-07-04 19:16] VITALS: RESP 18
[2024-07-04] MEDS: ACETAMINOPHEN TAB 500 MG TAB PO STA (19:55)
[2024-07-04] MEDS: SODIUM CHLORIDE 0.9% 1,000 ML IV ONE (19:56)
[2024-07-04 20:14] LABS: ALT 27 U/L (4-34); African American GFR (CKD) 37 (>60 ml/min/1.73 sqM); Anion Gap 10 mmol/L; Blood Urea Nitrogen 31 mg/dL (7-17); Calcium 9.3 mg/dL (8.4-10.2); Carbon Dioxide 23 mmol/L (22-30); Chloride 101 mmol/L (98-107); Glucose 76 mg/dL (74-99); INR 1.3 (<1.2); Non-African American GFR(CKD) 32 (>60 ml/min/1.73 sqM); Prothrombin Time 13.4 sec (10.0-12.5); Sodium 134 mmol/L (137-145); Total Bilirubin 0.8 mg/dL (0.2-1.3)
[2024-07-04 20:15] LABS: Potassium 4.9 mmol/L (3.5-5.1)
[2024-07-04 20:16] LABS: AST 54 U/L (14-36); Albumin 4.2 g/dL (3.5-5.0); Alkaline Phosphatase 83 U/L (38-126); Anisocytosis Slight; Basophils % (A) 1 %; Eosinophils # (A) 0.1 k/uL (0-0.7); Eosinophils % (A) 3 %; HCT 39.5 % (34.0-46.0); HGB 12.8 gm/dL (11.4-16.0); Hypochromasia Moderate; Lymphocytes # (A) 1.2 k/uL (1.0-4.8); Lymphocytes % (A) 21 %; MCH 30.8 pg (25.0-35.0); MCHC 32.4 g/dL (31.0-37.0); Mean Platelet Volume 8.1; Monocytes # (A) 0.7 k/uL (0-1.0); Monocytes % (A) 13 %; Neutrophils # (A) 3.3 k/uL (1.3-7.7); Neutrophils % (A) 60 %; Platelet Count 233 k/uL (150-450); RBC 4.16 m/uL (3.80-5.40); Total Protein 6.8 g/dL (6.3-8.2); WBC 5.5 k/uL (3.8-10.6)
--- NOTE | 2024-07-04 21:28 | CT ---
EXAMINATION TYPE: CT brain bro[place]nn wo con DATE OF EXAM: 07/04/2024 COMPARISON: 01/24/2023 HISTORY: Fall, No LOC. Hematoma to right side of forehead and back of head. CT DLP: Combined DLP of 1050.1 mGycm, Automated exposure control for dose reduction was used. CONTRAST: Patient injected with 0 mL of Isovue 300. CT of the brain is performed utilizing 3 mm thick sections through the posterior fossa and 3 mm thick sections through the remaining calvarium. Study is performed within 24 hours of arrival to the hospital. No abnormal hyperdensity is present to suggest an acute intracranial hemorrhage. No mass lesion is evident. No acute infarcts are evident. Some mild periventricular white matter hypodensity may be present, [place] on the basis of chronic white matter ischemic changes Ventricles and sulci are appropriate for the patient age. There is a large subgaleal hemorrhage along the right frontal parietal vertex. No underlying fracture s of the Paranasal sinuses and mastoid air cells within the [id number] are clear. IMPRESSIONS: 1. No acute intracranial process. Follow-up MRI can be performed as clinically indicated. 2. Superficial right frontal parietal vertex swelling. 3. Mild chronic appearing periventricular white matter ischemic changes, stable CT cervical spine. COMPARISON: 01/24/2023 CT of the cervical spine is performed in the axial plane at 2 mm thick sections. Reconstructed image s in the coronal, and sagittal plane are reviewed on the computer. No acute fractures are evident. There is an anterior cervical fusion C4-C7. Some disc space narrowing at C3-4 is present. Very minimal grade 1 spondylolisthesis of C3 anteriorly on C4 may be present. This appears stable from comparison. Vertebral body heights are preserved. No spinal canal stenosis is evident. No neural foraminal stenosis is evident. IMPRESSION: 1. Postsurgical changes cervical spine. 2. Very minimal grade 1 spondylolisthesis of C3 anteriorly on C4. 3. No acute osseous abnormality radiographically apparent.
--- NOTE | 2024-07-04 21:30 | CT ---
EXAMINATION TYPE: CT facial bones wo con DATE OF EXAM: 07/04/2024 COMPARISON: None HISTORY: Fall, No LOC. Hematoma to right side of forehead and back of head. CT DLP: Combined DLP of 1050.1 mGycm CONTRAST: 0 mL of Isovue 300 The paranasal sinuses are examined in the axial plane at 2 mm thick sections. Reconstructed images i n the coronal plane were obtained. There is dental amalgam scatter artifact The maxillary sinuses are clear. The ethmoid air cells are clear. The sphenoid sinuses are clear. The frontal sinuses are clear. The septum is evaluated. There is septal deviation to the right. The ostiomeatal units are patent. IMPRESSION: 1. No acute facial bone fractures evident.
--- NOTE | 2024-07-04 21:39 | XR ---
EXAMINATION TYPE: XR chest 1V portable DATE OF EXAM: 07/04/2024 9:31 PM COMPARISON: Chest radiographs from 05/31/2024, 06/11/2024 TECHNIQUE: XR chest 1V portable Portable AP radiograph of the chest. CLINICAL INDICATION:Female, 78 years old with history of fall, pain; FINDINGS: Lungs/Pleura: There is flattening of the diaphragm with increased lucency of the lungs. No evidence o f pneumothorax, pleural effusion or focal consolidation. Pulmonary vascularity: Prominence of the pulmonary arterial vasculature. Heart/mediastinum: Cardiomediastinal silhouette is enlarged and stable. Musculoskeletal: No acute osseous pathology. Cervical fusion hardware. IMPRESSION: 1. No acute cardiopulmonary disease process. 2. COPD changes.
--- NOTE | 2024-07-04 21:39 | XR ---
EXAMINATION TYPE: XR Hip RT and AP Pelvis DATE OF EXAM: 07/04/2024 COMPARISON: None HISTORY: Fall, pain TECHNIQUE: AP pelvis and two-view right FINDINGS: There is a right femoral prosthesis. The femoral bone and articulates with the acetabular c omponent. Left femoral head articulates with the acetabulum. Pubic symphysis and sacroiliac joints ar e normal. Postsurgical changes are within the lumbar spine. The proximal femur within the [id number] intact. The right femoral prosthesis appears intact. IMPRESSION: 1. No acute osseous abnormality right hip and pelvis. 2. No dislocation of the femoral prosthesis.
--- NOTE | 2024-07-04 21:40 | XR ---
EXAMINATION TYPE: XR elbow limited RT DATE OF EXAM: 07/04/2024 COMPARISON: Right elbow HISTORY: Fall, pain TECHNIQUE: 2 view right elbow FINDINGS: Radius aligns normally humerus. Joint spaces are preserved. No elevation of anterior fat pa d is evident. No posterior fat pad elevation evident. Soft tissues appear normal. Follow up exams can be performed 7-10 days from acute trauma pain. IMPRESSION: 1. No acute osseous abnormality 2 view right elbow
--- NOTE | 2024-07-04 21:41 | XR ---
EXAMINATION TYPE: XR shoulder complete RT DATE OF EXAM: 07/04/2024 9:31 PM INDICATION: Patient age:Female; 78 years old; Reason for study: fall, pain; COMPARISON: Right humerus radiograph 01/24/2023 TECHNIQUE: The right shoulder was examined in AP, internally rotated and scapular Y projections. . FINDINGS: No acute fracture or dislocation. Soft tissue swelling/haziness of the lateral shoulder. The remainin g portions of the visualized chest are unremarkable. IMPRESSION: 1. No acute osseous pathology. 2. Soft tissue swelling/haziness of the lateral shoulder. Correlate for contusion.
--- NOTE | 2024-07-04 21:53 | ED ---
General Adult HPI - General Chief complaint: Fall Stated complaint: Fall Time Seen by Provider: 07/04/24 19:35 Source: patient, EMS, RN notes reviewed, old records reviewed Mode of arrival: EMS - History of Present Illness Initial comments: Patient is a 78-year-old female who presents emergency department complaining of a fall at home. Patient was a fall down less than 1 step at home. Patient is on blood thinners. No loss of conscious. Did hit her head as well as land on her right shoulder. Has a history of A-fib on blood thinners, COPD, hypertension. No other acute complaints. Presents for further evaluation at this time. - Related Data Home Medications Medication Instructions Recorded Confirmed Pantoprazole Sodium [Protonix] 40 mg PO BID 05/14/14 04/27/24 Cyanocobalamin (Vitamin B-12) 1,000 mcg PO DAILY 06/16/22 04/27/24 [Vitamin B-12] Lysine 1,000 mg PO DAILY 08/03/22 04/27/24 Warfarin Sodium 4 mg PO MOFR@209912/07/22 04/27/24 Warfarin Sodium 2 mg PO SUTUWETHSA@209901/25/23 04/27/24 DULoxetine HCL [Cymbalta] 60 mg PO DAILY 07/27/23 04/27/24 Ipratropium Nebulized [Atrovent 0.5 mg INHALATION RT-BID 07/27/23 04/27/24 Nebulized 0.2 MG/ML] Acetaminophen [Tylenol Extra 1,000 mg PO Q6H PRN 12/22/23 04/27/24 Strength] Albuterol Inhaler [Ventolin Hfa 2 puff INHALATION RT-Q6H PRN 12/22/23 04/27/24 Inhaler] Cholecalciferol (Vitamin D3) 50 mcg PO DAILY 12/22/23 04/27/24 [Vitamin D3 (50 Mcg = 2000 Iu)] Glucosam/Chond/Hyalu/Cf Borate 1 tab PO DAILY 12/22/23 04/27/24 [Move Free Joint Health Tablet] Vit C/E/Zn/Coppr/Lutein/Zeaxan 1 cap PO DAILY 12/22/23 04/27/24 [Preservision Areds 2 Softgel] estradioL 2 mg PO DAILY 04/27/24 04/27/24 Previous Rx's Medication Instructions Recorded Pregabalin [Lyrica] 100 mg PO BID #6 cap 08/04/23 Atorvastatin [Lipitor] 40 mg PO HS #90 tab 12/25/23 Aspirin 81 mg PO DAILY #7 tab 01/06/24 Clopidogrel [Plavix] 75 mg PO DAILY #90 tab 01/06/24 Isosorbide Mononitrate ER [Imdur] 30 mg PO DAILY #90 tab 01/06/24 Metoprolol Tartrate [Lopressor] 12.5 mg PO BID #60 tab 01/06/24 Empagliflozin [Jardiance] 10 mg PO DAILY 30 Days #30 tablet 05/08/24 Furosemide [Lasix] 40 mg PO DAILY 30 Days #30 tab 05/08/24 Nystatin 100,000 Unit/ml Susp 500,000 unit PO QID 5 Days #100 ml 05/08/24 [Mycostatin Oral Susp] Tamsulosin [Flomax] 0.4 mg PO PC-BRKFST 30 Days #30 cap 05/08/24 predniSONE See Taper PO DIRECTED 12 Days 05/08/24 #30 tab Allergies Allergy/AdvReac Type Severity Reaction Status Date / Time cephalexin monohydrate Allergy Rash/Hives Verified 07/04/24 19:17 [From Keflex] diphenhydramine HCl Allergy SWELLING Verified 07/04/24 19:17 [From Benadryl] OF TONGUE, SOB enoxaparin [From Lovenox] Allergy Rash/Hives Verified 07/04/24 19:17 Penicillins Allergy SWELLING, Verified 07/04/24 19:17 HIVES sulfamethoxazole Allergy Anaphylaxis, Verified 07/04/24 19:17 [From Bactrim] Swelling trimethoprim [From Bactrim] Allergy Anaphylaxis, Verified 07/04/24 19:17 Swelling aspirin AdvReac EXCESS Verified 07/04/24 19:17 BLEEDING garlic AdvReac Nausea Verified 07/04/24 19:17 milk AdvReac Abdominal Verified 07/04/24 19:17 Pain morphine AdvReac Vomiting Verified 07/04/24 19:17 milk chocolate AdvReac Nausea Uncoded 04/27/24 12:31 Review of Systems ROS Statement: Those systems with pertinent positive or pertinent negative responses have been documented in the HPI. Review of Systems: CONST: Denies fever EYES: Denies blurry vision ENT: Denies nasal congestion C/V: Denies Chest pain RESP: Denies shortness of breath GI: Denies abdominal pain : Denies dysuria SKIN: Denies rash. MSK: Endorses forehead contusion NEURO: Denies headache ROS Other: All systems not noted in ROS Statement are negative. Past Medical History Past Medical History: Atrial Flutter, Asthma, Cancer, COPD, CVA/TIA, GERD/Reflux, GI Bleed, Hyperlipidemia, Hypertension, Memory Impairment, Myocardial Infarction ([place]), Osteoarthritis (OA), Renal Disease, Rheumatoid Arthritis (RA) Additional Past Medical History / Comment(s): Chronic cough. Back pain, migraines. residual from stroke,Occasional slight difficulty with swallowing. Hx gastic ulcer, H-Pylori, diverticulitis, hx melanoma on face X2. Hx kidney stones, "kidney function low", raynauds disease. recent stress test at Dr Castorena's office pt had chest pain-transferred to hospital heart cath unable to place stent at that time per pt. Last Myocardial Infarction Date:: 2012 History of Any Multi-Drug Resistant Organisms: None Reported Past Surgical History: Back Surgery, Cholecystectomy, Heart Catheterization, Hysterectomy, Joint Replacement, Orthopedic Surgery Additional Past Surgical History / Comment(s): RODS & CAGES IN BACK, RIGHT HIP REPLACEMENT, PARTIAL THYROIDECTOMY, BILATERAL KNEE REPLACEMENTS, NECK SURGERY WITH LIDIA AND CAGES, MELANOMA REMOVED FROM FACE X4, REPAIR OF HEMATOMA/FEMORAL ARTERY AFTER HEART CATHETERIZATION,rt foot bone spur removed Past Anesthesia/Blood Transfusion Reactions: Previous Problems w/ Anesthesia, Postoperative Nausea & Vomiting (PONV) Additional Past Anesthesia/Blood Transfusion Reaction / Comment(s): Hard to wake up. Past Psychological History: No Psychological Hx Reported Smoking Status: Never smoker Past Alcohol Use History: None Reported Past Drug Use History: None Reported - Past Family History Sister(s) Family Medical History: Cancer Brother(s) Family Medical History: Cancer Mother Family Medical History: Myocardial Infarction ([place]) Additional Family Medical History / Comment(s): Mother of a [place] at the age of 76yrs. Father History Unknown: Yes Family Medical History: Chest Pain / Angina General Exam - General Exam Comments Initial Comments: General: Appears in no acute distress. HEAD: Contusion to the right forehead. Negative Le sign. Negative raccoon eyes. EYES: PERRLA, EOMI, conjunctiva normal, no discharge. Pupils are 3 mm and equal bilaterally. ENT: Hearing grossly intact, normal oropharynx. RESPIRATORY: Clear breath sounds bilaterally. No wheezes, rales, or rhonchi. C/V: Regular rate and rhythm. S1 and S2 auscultated, no edema, peripheral pulses 2+ and intact throughout ABD: Abd is soft, nontender, nondistended EXT: Normal range of motion, no obvious deformity. Tenderness to palpation over the right hip, right shoulder. SKIN: Bruising over right elbow, right shoulder, right forehead NEURO: Alert and oriented x 4. GCS of 15 Course Vital Signs 07/04/24 07/04/24 19:12 22:19 Temperature 97.5 F L 97.8 F Pulse Rate 88 77 Respiratory 18 18 Rate Blood Pressure 146/84 130/75 O2 Sat by Pulse 96 94 L Oximetry Medical Decision Making - Medical Decision Making Was pt. sent in by a medical professional or institution (, PA, AZURE ARCHITECT, urgent care, hospital, or residential...) When possible be specific @ -No Did you speak to anyone other than the patient for history (EMS, parent, family, police, friend...)? What history was obtained from this source @ -No Did you review nursing and triage notes (agree or disagree)? Why? @ -I reviewed and agree with nursing and triage notes Were old charts reviewed (outside hosp., previous admission, EMS record, old EKG, old radiological studies, urgent care reports/EKG's, residential records)? Report findings @ -Old chart reviewed including from December 2023 for EKG which showed no obvious acute changes today. Differential Diagnosis (chest pain, altered mental status, abdominal pain women, abdominal pain men, vaginal bleeding, weakness, fever, dyspnea, syncope, headache, dizziness, GI bleed, back pain, seizure, CVA, palpatations, mental health, musculoskeletal)? @ -Differential Musculoskeletal Muscular strain, contusion, ligament sprain, fracture, arthritis, septic arthritis, bursitis, cellulitis, muscle spasm, nerve compression, DVT, arterial occlusion, herpes zoster, electrolyte abnormality, tumor.... This is not meant to be in all inclusive list EKG interpreted by me (3pts min.). @ -As above X-rays interpreted by me (1pt min.). @ -Chest x-ray, pelvis x-ray, right elbow x-ray, right shoulder x-ray negative for any obvious bony traumatic injury. Bruising over the right shoulder present. CT interpreted by me (1pt min.). @ -CT brain, cervical spine, facial bones negative for any obvious acute traumatic injury other than the forehead contusion. No obvious acute intracranial process. Degenerative changes present. U/S interpreted by me (1pt. min.). @ -None done What testing was considered but not performed or refused? (CT, X-rays, U/S, labs)? Why? @ -None What meds were considered but not given or refused? Why? @ -None Did you discuss the management of the patient with other professionals (professionals i.e. , PA, AZURE ARCHITECT, lab, RT, psych nurse, social sciences instructor, crystal machining coordinator, teacher, chief communications officer, lead case manager)? Give summary @ -No Was smoking cessation discussed for >3mins.? @ -No Was critical care preformed (if so, how long)? @ -No Were there social determinants of health that impacted care today? How? (Homelessness, low income, unemployed, alcoholism, drug addiction, transportation, low edu. Level, literacy, decrease access to med. care, halfway, rehab)? @ -No Was there de-escalation of care discussed even if they declined (Discuss DNR or withdrawal of care, Hospice)? DNR status @ -No What co-morbidities impacted this encounter? (DM, HTN, Smoking, COPD, CAD, Cancer, CVA, ARF, Chemo, Hep., AIDS, mental health diagnosis, sleep apnea, morbid obesity)? @ -None Was patient admitted / discharged? Hospital course, mention meds given and route, prescriptions, significant lab abnormalities, going to OR and other pertinent info. @ -Patient presents as a fall on blood thinners. No loss of consciousness. Does not meet activation criteria for trauma. Cervical collar in place. Vital signs within acceptable limits. We will obtain CT imaging of the brain, C- spine, facial bones as well as x-rays and basic labs. Patient in agreement this plan. Patient given ice pack, as well as Tylenol for analgesia. Screening EKG unremarkable. Laboratory studies within acceptable limits including findings consistent with CKD. This seems to be baseline for the patient. Patient's imaging all negative for traumatic bony injury. Patient does have a contusion of the forehead as well as bruising of the right shoulder but no bony traumatic injury. Patient is feeling improved at this time. Discussed workup. Cervical collar c leared. Patient will be discharged home. Recommended strict return precautions. I instructed the patient to follow up with their PCP in the next 1-3 days. I explained that the patient should return to the emergency department if they experience any worsening symptoms. Strict return precautions were discussed with the patient. The patient expressed understanding of these instructions. I answered all questions that the patient had. The patient was discharged home in good condition with their prescriptions and follow up information. Undiagnosed new problem with uncertain prognosis? @ -No Drug Therapy requiring intensive monitoring for toxicity (Heparin, Nitro, Insulin, Cardizem)? @ -No Were any procedures done? @ -No Diagnosis/symptom? @ -Fall, forehead contusion, multiple contusions Acute, or Chronic, or Acute on Chronic? @ -Acute Uncomplicated (without systemic symptoms) or Complicated (systemic symptoms)? @ -Uncomplicated Side effects of treatment? @ -No Exacerbation, Progression, or Severe Exacerbation? @ -No Poses a threat to life or bodily function? How? (Chest pain, [place], [place], pneumonia, PE, COPD, DKA, ARF, appy, cholecystitis, CVA, Diverticulitis, Homicidal, Suicidal, threat to staff... and all critical care pts) @ -Unlikely - Lab Data Result diagrams: 07/04/24 19:44 07/04/24 19:44 Lab Results 07/04/24 07/04/24 07/04/24 Range/Units 19:44 19:44 19:44 WBC 5.5 (3.8-10.6) k/uL RBC 4.16 (3.80-5.40) m/uL Hgb 12.8 (11.4-16.0) gm/dL Hct 39.5 (34.0-46.0) % MCV 95.0 (80.0-100.0) fL MCH 30.8 (25.0-35.0) pg MCHC 32.4 (31.0-37.0) g/dL RDW 18.0 H (11.5-15.5) % Plt Count 233 (150-450) k/uL MPV 8.1 Neutrophils % 60 % Lymphocytes % 21 % Monocytes % 13 % Eosinophils % 3 % Basophils % 1 % Neutrophils # 3.3 (1.3-7.7) k/uL Lymphocytes # 1.2 (1.0-4.8) k/uL Monocytes # 0.7 (0-1.0) k/uL Eosinophils # 0.1 (0-0.7) k/uL Basophils # 0.0 (0-0.2) k/uL Hypochromasia Moderate Anisocytosis Slight PT 13.4 H (10.0-12.5) sec INR 1.3 H (<1.2) APTT 24.0 (22.0-30.0) sec Sodium 134 L (137-145) mmol/L Potassium 4.9 (3.5-5.1) mmol/L Chloride 101 (98-107) mmol/L Carbon Dioxide 23 (22-30) mmol/L Anion Gap 10 mmol/L BUN 31 H (7-17) mg/dL Creatinine 1.54 H (0.52-1.04) mg/dL Est GFR (CKD-EPI)AfAm 37 (>60 ml/min/1.73 sqM) Est GFR (CKD-EPI)NonAf 32 (>60 ml/min/1.73 sqM) Glucose 76 (74-99) mg/dL Calcium 9.3 (8.4-10.2) mg/dL Total Bilirubin 0.8 (0.2-1.3) mg/dL AST 54 H (14-36) U/L ALT 27 (4-34) U/L Alkaline Phosphatase 83 (38-126) U/L Total Protein 6.8 (6.3-8.2) g/dL Albumin 4.2 (3.5-5.0) g/dL - EKG Data -: EKG Interpreted by Me EKG Comments: 12-lead Electrocardiogram Interpretation Note EKG was reviewed and interpreted by myself. 12-lead ECG performed at 1936 is interpreted by me as revealing fibrillation with chronic left bundle branch block at a rate of 69 beats per minute. Left axis deviation. QRS duration is 153 ms, QTc is 4 1067 ms.. There were no ST or T wave abnormalities to suggest myocardial ischemia or injury. R wave progression across the precordium was delayed. By my interpretation this EKG is non-diagnostic for acute ischemia. Compared with EKG from December 2023 with no significant change. Disposition Clinical Impression: Fall, Multiple contusions, Forehead contusion Disposition: HOME SELF-CARE Condition: Good Instructions (If sedation given, give patient instructions): Fall Prevention for Older Adults (ED) Is patient prescribed a controlled substance at d/c from ED?: No Referrals: Dex Mcneal MD [Primary Care Provider] - 1-2 days Time of Disposition: 21:53
[2024-07-04 22:20] VITALS: BP 130/75; PULSE 77; TEMP 97.8
== END 2024-07-04 22:20 | disposition home or self-care (01) ==
LOC: EC 19:09
CPT/HCPCS: 36415; 70450; 70486; 71045; 72125; 73502; 80053; 85025; 85610; 85730; 93005; 96360; 99284

== ENCOUNTER 2024-09-03 15:52 | Emergency (ER) | payer MEDICARE, BC ==
[2024-09-03 16:05] VITALS: TEMP 97.4
--- NOTE | 2024-09-03 16:16 | ED ---
General Adult HPI - General Chief complaint: Shortness of Breath Stated complaint: abn chest xray,weight gain Time Seen by Provider: 09/03/24 16:08 Source: patient, RN notes reviewed, old records reviewed Mode of arrival: wheelchair Limitations: no limitations - History of Present Illness Initial comments: 79-year-old female presenting from venipuncturist office for evaluation of dyspnea. Patient states she was sent to the emergency department with abnormal x-ray. Patient states she has had a 20 pound weight gain and significant lower extremity edema over the past 1 week. She denies fever. She does report mild cough. No central chest pain. - Related Data Home Medications Medication Instructions Recorded Confirmed Pantoprazole Sodium [Protonix] 40 mg PO BID 05/14/14 04/27/24 Cyanocobalamin (Vitamin B-12) 1,000 mcg PO DAILY 06/16/22 04/27/24 [Vitamin B-12] Lysine 1,000 mg PO DAILY 08/03/22 04/27/24 Warfarin Sodium 4 mg PO MOFR@209912/07/22 04/27/24 Warfarin Sodium 2 mg PO SUTUWETHSA@209901/25/23 04/27/24 DULoxetine HCL [Cymbalta] 60 mg PO DAILY 07/27/23 04/27/24 Ipratropium Nebulized [Atrovent 0.5 mg INHALATION RT-BID 07/27/23 04/27/24 Nebulized 0.2 MG/ML] Acetaminophen [Tylenol Extra 1,000 mg PO Q6H PRN 12/22/23 04/27/24 Strength] Albuterol Inhaler [Ventolin Hfa 2 puff INHALATION RT-Q6H PRN 12/22/23 04/27/24 Inhaler] Cholecalciferol (Vitamin D3) 50 mcg PO DAILY 12/22/23 04/27/24 [Vitamin D3 (50 Mcg = 2000 Iu)] Glucosam/Chond/Hyalu/Cf Borate 1 tab PO DAILY 12/22/23 04/27/24 [Move Free Joint Health Tablet] Vit C/E/Zn/Coppr/Lutein/Zeaxan 1 cap PO DAILY 12/22/23 04/27/24 [Preservision Areds 2 Softgel] estradioL 2 mg PO DAILY 04/27/24 04/27/24 Previous Rx's Medication Instructions Recorded Pregabalin [Lyrica] 100 mg PO BID #6 cap 08/04/23 Atorvastatin [Lipitor] 40 mg PO HS #90 tab 12/25/23 Aspirin 81 mg PO DAILY #7 tab 01/06/24 Clopidogrel [Plavix] 75 mg PO DAILY #90 tab 01/06/24 Isosorbide Mononitrate ER [Imdur] 30 mg PO DAILY #90 tab 01/06/24 Metoprolol Tartrate [Lopressor] 12.5 mg PO BID #60 tab 01/06/24 Empagliflozin [Jardiance] 10 mg PO DAILY 30 Days #30 tablet 05/08/24 Furosemide [Lasix] 40 mg PO DAILY 30 Days #30 tab 05/08/24 Nystatin 100,000 Unit/ml Susp 500,000 unit PO QID 5 Days #100 ml 05/08/24 [Mycostatin Oral Susp] Tamsulosin [Flomax] 0.4 mg PO PC-BRKFST 30 Days #30 cap 05/08/24 predniSONE See Taper PO DIRECTED 12 Days 05/08/24 #30 tab Furosemide [Lasix] 40 mg PO BID 7 Days #14 tablet 09/03/24 predniSONE 10 mg PO DAILY 16 Days #40 tab 09/03/24 Allergies Allergy/AdvReac Type Severity Reaction Status Date / Time cephalexin monohydrate Allergy Rash/Hives Verified 07/04/24 19:17 [From Keflex] diphenhydramine HCl Allergy SWELLING Verified 07/04/24 19:17 [From Benadryl] OF TONGUE, SOB enoxaparin [From Lovenox] Allergy Rash/Hives Verified 07/04/24 19:17 Penicillins Allergy SWELLING, Verified 07/04/24 19:17 HIVES sulfamethoxazole Allergy Anaphylaxis, Verified 07/04/24 19:17 [From Bactrim] Swelling trimethoprim [From Bactrim] Allergy Anaphylaxis, Verified 07/04/24 19:17 Swelling aspirin AdvReac EXCESS Verified 07/04/24 19:17 BLEEDING garlic AdvReac Nausea Verified 07/04/24 19:17 milk AdvReac Abdominal Verified 07/04/24 19:17 Pain morphine AdvReac Vomiting Verified 07/04/24 19:17 milk chocolate AdvReac Nausea Uncoded 04/27/24 12:31 Review of Systems ROS Statement: Those systems with pertinent positive or pertinent negative responses have been documented in the HPI. ROS Other: All systems not noted in ROS Statement are negative. Past Medical History Past Medical History: Atrial Flutter, Asthma, Cancer, COPD, CVA/TIA, GERD/Reflux, GI Bleed, Hyperlipidemia, Hypertension, Memory Impairment, Myocardial Infarction (DC), Osteoarthritis (OA), Renal Disease, Rheumatoid Arthritis (RA) Additional Past Medical History / Comment(s): Chronic cough. Back pain, migraines. residual from stroke,Occasional slight difficulty with swallowing. Hx gastic ulcer, H-Pylori, diverticulitis, hx melanoma on face X2. Hx kidney stones, "kidney function low", raynauds disease. recent stress test at Dr Castorena's office pt had chest pain-transferred to hospital heart cath unable to place stent at that time per pt. Last Myocardial Infarction Date:: 2012 History of Any Multi-Drug Resistant Organisms: None Reported Past Surgical History: Back Surgery, Cholecystectomy, Heart Catheterization, Hysterectomy, Joint Replacement, Orthopedic Surgery Additional Past Surgical History / Comment(s): RODS & CAGES IN BACK, RIGHT HIP REPLACEMENT, PARTIAL THYROIDECTOMY, BILATERAL KNEE REPLACEMENTS, NECK SURGERY WITH LIDIA AND CAGES, MELANOMA REMOVED FROM FACE X4, REPAIR OF HEMATOMA/FEMORAL ARTERY AFTER HEART CATHETERIZATION,rt foot bone spur removed Past Anesthesia/Blood Transfusion Reactions: Previous Problems w/ Anesthesia, Postoperative Nausea & Vomiting (PONV) Additional Past Anesthesia/Blood Transfusion Reaction / Comment(s): Hard to wake up. Past Psychological History: No Psychological Hx Reported Smoking Status: Never smoker Past Alcohol Use History: None Reported Past Drug Use History: None Reported - Past Family History Sister(s) Family Medical History: Cancer Brother(s) Family Medical History: Cancer Mother Family Medical History: Myocardial Infarction (DC) Additional Family Medical History / Comment(s): Mother of a DC at the age of 76yrs. Father History Unknown: Yes Family Medical History: Chest Pain / Angina General Exam Limitations: no limitations General appearance: alert, in no apparent distress Head exam: Present: atraumatic, normocephalic Eye exam: Present: normal appearance, PERRL Respiratory exam: Present: rales, decreased breath sounds. Absent: respiratory distress Cardiovascular Exam: Present: regular rate, normal rhythm, JVD Extremities exam: Present: pedal edema Neurological exam: Present: alert, oriented X3, CN II-XII intact. Absent: motor sensory deficit Psychiatric exam: Present: normal affect, normal mood Skin exam: Present: warm, dry, intact. Absent: cyanosis, diaphoretic Course Vital Signs 09/03/24 16:03 Temperature 97.4 F L Pulse Rate 58 L Respiratory 24 Rate Blood Pressure 111/67 O2 Sat by Pulse 96 Oximetry Medical Decision Making - Medical Decision Making Was pt. sent in by a medical professional or institution (ASHLIE Varela, CENTER DIRECTOR LEAD TEACHER, urgent care, hospital, or fpc...) When possible be specific @ -Sent in by Dr. Bajwa] Did you speak to anyone other than the patient for history (EMS, parent, family, police, friend...)? What history was obtained from this source @ -[No] Did you review nursing and triage notes (agree or disagree)? Why? @ -[I reviewed and agree with nursing and triage notes] Were old charts reviewed (outside hosp., previous admission, EMS record, old EKG, old radiological studies, urgent care reports/EKG's, fpc records)? Report findings @ -[No old charts were reviewed] Differential Dyspnea: Coronary syndrome, arrhythmia, tamponade, asthma, COPD, pulmonary embolism, pneumonia, pneumothorax, pulmonary effusion, anaphylaxis, diabetic ketoacidosis, flailed chest, pulmonary contusion, diaphragmatic rupture, anemia, neuromuscular, this is not meant to be an all-inclusive list. EKG interpreted by me (3pts min.). @Atrial fibrillation, left bundle branch block QRS duration 149, ventricular rate of 61, QTc 487 X-rays interpreted by me (1pt min.). Chest x-ray showing cardiomegaly, mild CHF CT interpreted by me (1pt min.). @ -[None done] U/S interpreted by me (1pt. min.). @ -[None done] What testing was considered but not performed or refused? (CT, X-rays, U/S, labs)? Why? @ -[None] What meds were considered but not given or refused? Why? @ -[None] Did you discuss the management of the patient with other professionals (professionals i.e. ASHLIE Varela, CENTER DIRECTOR LEAD TEACHER, lab, RT, psych nurse, social media content manager, airconditioning engineer, teacher, campus safety officer, immigration case manager)? Give summary @Case discussed at length with Dr. Bajwa who sent the patient in, laboratory results are communicated at this time we both feel that IV Lasix and IV Solu- Medrol followed by increased Lasix dose for the next 1 week and a steroid taper is appropriate for this patient. Was smoking cessation discussed for >3mins.? @ -[No] Was critical care preformed (if so, how long)? @ -[No] Were there social determinants of health that impacted care today? How? (Homelessness, low income, unemployed, alcoholism, drug addiction, transportation, low edu. Level, literacy, decrease access to med. care, [facility], rehab)? @ -[No] Was there de-escalation of care discussed even if they declined (Discuss DNR or withdrawal of care, Hospice)? DNR status @ -[No] What co-morbidities impacted this encounter? (DM, HTN, Smoking, COPD, CAD, Cancer, CVA, ARF, Chemo, Hep., AIDS, mental health diagnosis, sleep apnea, morbid obesity)? @ -COPD and CHF Was patient admitted / discharged? Hospital course, mention meds given and route, prescriptions, significant lab abnormalities, going to OR and other pertinent info. @79-year-old female with dyspnea, cough, weight gain, fluid retention. Patient's BNP is elevated. Chest x-ray shows cardiomegaly without florid CHF. Troponin is negative. EKG is atrial flutter with left bundle which is stable from prior. Patient will be given IV Lasix and IV Solu-Medrol in the emergency department followed by increased IV Lasix and steroid taper as an outpatient with close follow-up with both with pulmonology and cardiology. Patient and agreeable with plan. Undiagnosed new problem with uncertain prognosis? @ -[No] Drug Therapy requiring intensive monitoring for toxicity (Heparin, Nitro, Insulin, Cardizem)? @ -[No] Were any procedures done? @ -[No] Diagnosis/symptom? @CHF Acute, or Chronic, or Acute on Chronic? @Acute Uncomplicated (without systemic symptoms) or Complicated (systemic symptoms)? @ -[default] Side effects of treatment? @ -[No] Exacerbation, Progression, or Severe Exacerbation? @ -[No] Poses a threat to life or bodily function? How? (Chest pain, USA, DC, pneumonia, PE, COPD, DKA, ARF, appy, cholecystitis, CVA, Diverticulitis, Homicidal, Suicidal, threat to staff... and all critical care pts) @ -[Moderate risk - Lab Data Result diagrams: 09/03/24 16:20 09/03/24 16:20 Lab Results 09/03/24 09/03/24 09/03/24 Range/Units 16:20 16:20 16:20 WBC 7.5 (3.8-10.6) k/uL RBC 3.81 (3.80-5.40) m/uL Hgb 12.0 (11.4-16.0) gm/dL Hct 35.7 (34.0-46.0) % MCV 93.8 (80.0-100.0) fL MCH 31.6 (25.0-35.0) pg MCHC 33.7 (31.0-37.0) g/dL RDW 16.5 H (11.5-15.5) % Plt Count 212 (150-450) k/uL MPV 7.6 Neutrophils % 68 % Lymphocytes % 17 % Monocytes % 10 % Eosinophils % 2 % Basophils % 0 % Neutrophils # 5.1 (1.3-7.7) k/uL Lymphocytes # 1.3 (1.0-4.8) k/uL Monocytes # 0.7 (0-1.0) k/uL Eosinophils # 0.2 (0-0.7) k/uL Basophils # 0.0 (0-0.2) k/uL Hypochromasia Slight Anisocytosis Slight PT 14.7 H (10.0-12.5) sec INR 1.4 H (<1.2) APTT 29.3 (22.0-30.0) sec Sodium 136 L (137-145) mmol/L Potassium 3.4 L (3.5-5.1) mmol/L Chloride 105 (98-107) mmol/L Carbon Dioxide 25 (22-30) mmol/L Anion Gap 6 mmol/L BUN 29 H (7-17) mg/dL Creatinine 1.46 H (0.52-1.04) mg/dL Est GFR (CKD-EPI)AfAm 39 (>60 ml/min/1.73 sqM) Est GFR (CKD-EPI)NonAf 34 (>60 ml/min/1.73 sqM) Glucose 85 (74-99) mg/dL Plasma Lactic Acid Chris (0.7-2.0) mmol/L Calcium 9.0 (8.4-10.2) mg/dL Total Bilirubin 0.4 (0.2-1.3) mg/dL AST 24 (14-36) U/L ALT 16 (4-34) U/L Alkaline Phosphatase 95 (38-126) U/L Troponin I (0.000-0.034) ng/mL NT-Pro-B Natriuret Pep 4690 pg/mL Total Protein 6.4 (6.3-8.2) g/dL Albumin 3.8 (3.5-5.0) g/dL 09/03/24 09/03/24 Range/Units 16:20 16:20 WBC (3.8-10.6) k/uL RBC (3.80-5.40) m/uL Hgb (11.4-16.0) gm/dL Hct (34.0-46.0) % MCV (80.0-100.0) fL MCH (25.0-35.0) pg MCHC (31.0-37.0) g/dL RDW (11.5-15.5) % Plt Count (150-450) k/uL MPV Neutrophils % % Lymphocytes % % Monocytes % % Eosinophils % % Basophils % % Neutrophils # (1.3-7.7) k/uL Lymphocytes # (1.0-4.8) k/uL Monocytes # (0-1.0) k/uL Eosinophils # (0-0.7) k/uL Basophils # (0-0.2) k/uL Hypochromasia Anisocytosis PT (10.0-12.5) sec INR (<1.2) APTT (22.0-30.0) sec Sodium (137-145) mmol/L Potassium (3.5-5.1) mmol/L Chloride (98-107) mmol/L Carbon Dioxide (22-30) mmol/L Anion Gap mmol/L BUN (7-17) mg/dL Creatinine (0.52-1.04) mg/dL Est GFR (CKD-EPI)AfAm (>60 ml/min/1.73 sqM) Est GFR (CKD-EPI)NonAf (>60 ml/min/1.73 sqM) Glucose (74-99) mg/dL Plasma Lactic Acid Chris 1.0 (0.7-2.0) mmol/L Calcium (8.4-10.2) mg/dL Total Bilirubin (0.2-1.3) mg/dL AST (14-36) U/L ALT (4-34) U/L Alkaline Phosphatase (38-126) U/L Troponin I 0.012 (0.000-0.034) ng/mL NT-Pro-B Natriuret Pep pg/mL Total Protein (6.3-8.2) g/dL Albumin (3.5-5.0) g/dL Disposition Clinical Impression: CHF (congestive heart failure) Disposition: HOME SELF-CARE Condition: Fair Instructions (If sedation given, give patient instructions): Heart Failure (ER) Prescriptions: Furosemide [Lasix] 40 mg PO BID 7 Days #14 tablet predniSONE 10 mg PO DAILY 16 Days #40 tab Is patient prescribed a controlled substance at d/c from ED?: No Referrals: Dex Mcneal MD [Primary Care Provider] - 1-2 days Rebecca Bajwa MD [STAFF PHYSICIAN] - 1-2 days Time of Disposition: 17:18
[2024-09-03 16:37] LABS: Anisocytosis Slight; Basophils % (A) 0 %; Eosinophils # (A) 0.2 k/uL (0-0.7); Eosinophils % (A) 2 %; HCT 35.7 % (34.0-46.0); Hypochromasia Slight; Lymphocytes # (A) 1.3 k/uL (1.0-4.8); Lymphocytes % (A) 17 %; MCH 31.6 pg (25.0-35.0); MCHC 33.7 g/dL (31.0-37.0); MCV 93.8 fL (80.0-100.0); Mean Platelet Volume 7.6; Monocytes # (A) 0.7 k/uL (0-1.0); Monocytes % (A) 10 %; Neutrophils # (A) 5.1 k/uL (1.3-7.7); Neutrophils % (A) 68 %; Platelet Count 212 k/uL (150-450); RBC 3.81 m/uL (3.80-5.40); RDW 16.5 % (11.5-15.5); WBC 7.5 k/uL (3.8-10.6)
[2024-09-03 16:45] LABS: ALT 16 U/L (4-34); AST 24 U/L (14-36); African American GFR (CKD) 39 (>60 ml/min/1.73 sqM); Albumin 3.8 g/dL (3.5-5.0); Alkaline Phosphatase 95 U/L (38-126); Anion Gap 6 mmol/L; Blood Urea Nitrogen 29 mg/dL (7-17); Carbon Dioxide 25 mmol/L (22-30); Chloride 105 mmol/L (98-107); Glucose 85 mg/dL (74-99); Non-African American GFR(CKD) 34 (>60 ml/min/1.73 sqM); Potassium 3.4 mmol/L (3.5-5.1); Sodium 136 mmol/L (137-145); Total Bilirubin 0.4 mg/dL (0.2-1.3); Total Protein 6.4 g/dL (6.3-8.2)
--- NOTE | 2024-09-03 16:47 | XR ---
EXAMINATION TYPE: XR chest 2V DATE OF EXAM: 09/03/2024 4:38 PM COMPARISON: 07/04/2024 CLINICAL INDICATION: Female, 79 years old with history of difficulty breathing, TECHNIQUE: XR chest 2V view(s) obtained. FINDINGS: The heart size is enlarged. The pulmonary vasculature is normal. The lungs are clear. IMPRESSION: 1. [facility] Vincent Carlson, , 09/03/2024 4:45 PM
[2024-09-03 16:54] LABS: NT-Pro-B-Type Natriuretic Pept 4690 pg/mL
[2024-09-03 16:56] LABS: INR 1.4 (<1.2); Partial Thromboplastin Time 29.3 sec (22.0-30.0); Prothrombin Time 14.7 sec (10.0-12.5)
[2024-09-03 17:21] VITALS: BP 121/68; PULSE 68; RESP 18
[2024-09-03] MEDS: FUROSEMIDE 10 MG/ML 4 ML VIAL IV STA (17:28)
[2024-09-03] MEDS: methylPREDNISolone SOD SUCCI 125 MG/2 ML VIAL IV STA (17:28)
== END 2024-09-03 17:45 | disposition home or self-care (01) ==
LOC: EC 15:52
DX: I50.9 Heart failure, unspecified (principal); Z88.0 Allergy status to penicillin; Z88.1 Allergy status to other antibiotic agents; Z88.5 Allergy status to narcotic agent; Z88.2 Allergy status to sulfonamides; Z88.6 Allergy status to analgesic agent; Z88.8 Allergy status to other drugs, medicaments and biological substances; Z91.011 Allergy to milk products; Z90.49 Acquired absence of other specified parts of digestive tract; Z86.73 Personal history of transient ischemic attack (TIA), and cerebral infarction without residual deficits
CPT/HCPCS: 36415; 93005; 83880; 80053; 83605; 84484; 85025; 85610; 85730; 71046; 99285; 96374; 96375; J1940; J2919

== ENCOUNTER 2025-01-11 04:57 | Emergency (ER) | payer MEDICARE, BC ==
[2025-01-11 06:05] VITALS: RESP 20
[2025-01-11] MEDS: ALBUTEROL NEBULIZED 2.5 MG/3 ML INHALATION STA (06:09)
[2025-01-11] MEDS: IPRATROPIUM-ALBUTEROL 3 ML NEB INHALATION STA (06:09)
[2025-01-11 06:19] VITALS: PULSE 98
[2025-01-11 06:37] LABS: Influenza A Not Detected (Not Detectd); Influenza B Not Detected (Not Detectd); RSV Not Detected (Not Detectd)
--- NOTE | 2025-01-11 07:27 | XR ---
EXAM: XR Chest, 1 View CLINICAL HISTORY: ITS.REASON XR Reason: cough TECHNIQUE: Frontal view of the chest. COMPARISON: X-ray dated 02/20/2023. FINDINGS: Lungs: Opacification of the left lung base. The right lung is clear. Pleural space: The costophrenic angles are excluded from the film. Left-sided pleural effusion. No pneumothorax. Heart: Moderate enlargement of the cardiac silhouette. Mediastinum: Enlargement of the distal right paratracheal stripe. Bones/joints: Cervical spine fusion hardware is in place. Degenerative changes are seen in the spine and shoulders. No acute fracture. IMPRESSION: Left basilar pleural effusion with adjacent atelectasis and/or pneumonia not excluded.
--- NOTE | 2025-01-11 07:42 | ED ---
SOB HPI - General Source: patient Mode of arrival: ambulatory Limitations: no limitations - History of Present Illness MD Complaint: shortness of breath, cough -: hour(s) Severity scale (1-10): 0 Consistency: constant Improves With: nothing Worsens With: nothing Known History Of: COPD Associated Symptoms: cough Treatments Prior to Arrival: oxygen - Related Data Home Oxygen Therapy: Yes Home Oxygen Amount: 2 Liters <Owen Russell - Last Filed: 01/11/25 07:50> <Antony Waite - Last Filed: 01/11/25 09:08> - General Chief Complaint: Shortness of Breath Stated Complaint: Difficulty Breathing, Cough, Congestion Time Seen by Provider: 01/11/25 05:23 - History of Present Illness Initial Comments: This patient is a 79-year-old woman with history of COPD who presents with complaint that she has had worsening cough over the course of tonight. She states she will go into coughing episodes and is very hard to catch her breath. She has not noted fever or chills. No chest pain. No leg pain or swelling. Patient denies orthopnea. Patient does use home oxygen at 2 L satting (Owen Russell) - Related Data Home Medications Medication Instructions Recorded Confirmed Pantoprazole Sodium [Protonix] 40 mg PO BID 05/14/14 11/21/24 Cyanocobalamin (Vitamin B-12) 1,000 mcg PO DAILY 06/16/22 11/21/24 [Vitamin B-12] Lysine 1,000 mg PO DAILY 08/03/22 11/21/24 Warfarin Sodium 4 mg PO MOFR@209912/07/22 11/21/24 Warfarin Sodium 2 mg PO SUTUWETHSA@209901/25/23 11/21/24 DULoxetine HCL [Cymbalta] 60 mg PO DAILY 07/27/23 11/21/24 Ipratropium Nebulized [Atrovent 0.5 mg INHALATION RT-BID 07/27/23 11/21/24 Nebulized 0.2 MG/ML] Acetaminophen [Tylenol Extra 1,000 mg PO Q6H PRN 12/22/23 11/21/24 Strength] Albuterol Inhaler [Ventolin Hfa 2 puff INHALATION RT-Q6H PRN 12/22/23 11/21/24 Inhaler] Cholecalciferol (Vitamin D3) 50 mcg PO DAILY 12/22/23 11/21/24 [Vitamin D3 (50 Mcg = 2000 Iu)] Glucosam/Chond/Hyalu/Cf Borate 1 tab PO DAILY 12/22/23 11/21/24 [Move Free [employer] Health Tablet] estradioL 2 mg PO DAILY 04/27/24 11/21/24 Previous Rx's Medication Instructions Recorded Pregabalin [Lyrica] 100 mg PO BID #6 cap 08/04/23 Atorvastatin [Lipitor] 40 mg PO HS #90 tab 12/25/23 Clopidogrel [Plavix] 75 mg PO DAILY #90 tab 01/06/24 Isosorbide Mononitrate ER [Imdur] 30 mg PO DAILY #90 tab 01/06/24 Metoprolol Tartrate [Lopressor] 12.5 mg PO BID #60 tab 01/06/24 Empagliflozin [Jardiance] 10 mg PO DAILY 30 Days #30 tablet 05/08/24 Furosemide [Lasix] 40 mg PO DAILY 30 Days #30 tab 05/08/24 Tamsulosin [Flomax] 0.4 mg PO PC-BRKFST 30 Days #30 cap 05/08/24 Furosemide [Lasix] 40 mg PO BID 7 Days #14 tablet 09/03/24 Azithromycin [Zithromax Z Pack] 250 mg PO DAILY #6 tab 01/11/25 predniSONE [Deltasone] 20 mg PO BID #8 tab 01/11/25 Allergies Allergy/AdvReac Type Severity Reaction Status Date / Time cephalexin monohydrate Allergy Rash/Hives Verified 01/11/25 05:03 [From Keflex] diphenhydramine HCl Allergy SWELLING Verified 01/11/25 05:03 [From Benadryl] OF TONGUE, SOB enoxaparin [From Lovenox] Allergy Rash/Hives Verified 01/11/25 05:03 Penicillins Allergy SWELLING, Verified 01/11/25 05:03 HIVES sulfamethoxazole Allergy Anaphylaxis, Verified 01/11/25 05:03 [From Bactrim] Swelling trimethoprim [From Bactrim] Allergy Anaphylaxis, Verified 01/11/25 05:03 Swelling aspirin AdvReac EXCESS Verified 01/11/25 05:03 BLEEDING garlic AdvReac Nausea Verified 01/11/25 05:03 milk AdvReac Abdominal Verified 01/11/25 05:03 Pain morphine AdvReac Vomiting Verified 01/11/25 05:03 milk chocolate AdvReac Nausea Uncoded 01/11/25 05:03 Review of Systems ROS Other: All systems not noted in ROS Statement are negative. Constitutional: Denies: fever, chills Respiratory: Reports: cough, dyspnea, wheezes. Denies: hemoptysis Cardiovascular: Denies: chest pain, palpitations, edema, syncope Gastrointestinal: Denies: abdominal pain, vomiting, diarrhea Genitourinary: Denies: dysuria Musculoskeletal: Denies: back pain Skin: Denies: rash Neurological: Denies: headache, weakness <Owen Russell - Last Filed: 01/11/25 07:50> ROS Other: All systems not noted in ROS Statement are negative. <Antony Waite - Last Filed: 01/11/25 09:08> ROS Statement: Those systems with pertinent positive or pertinent negative responses have been documented in the HPI. Past Medical History Past Medical History: Atrial Flutter, Asthma, Cancer, COPD, CVA/TIA, GERD/Reflux, GI Bleed, Hyperlipidemia, Hypertension, Memory Impairment, Myocardial Infarction ([place]), Osteoarthritis (OA), Renal Disease, Rheumatoid Arthritis (RA) Additional Past Medical History / Comment(s): Chronic cough. Back pain, migrain es. residual from stroke,Occasional slight difficulty with swallowing. Hx gastic ulcer, H-Pylori, diverticulitis, hx melanoma on face X2. Hx kidney stones, "kidney function low", raynauds disease. recent stress test at Dr Castorena's office pt had chest pain-transferred to hospital heart cath unable to place stent at that time per pt. Last Myocardial Infarction Date:: 2012 History of Any Multi-Drug Resistant Organisms: None Reported Past Surgical History: Back Surgery, Cholecystectomy, Heart Catheterization, Hysterectomy, Joint Replacement, Orthopedic Surgery Additional Past Surgical History / Comment(s): RODS & CAGES IN BACK, RIGHT HIP REPLACEMENT, PARTIAL THYROIDECTOMY, BILATERAL KNEE REPLACEMENTS, NECK SURGERY WITH LIDIA AND CAGES, MELANOMA REMOVED FROM FACE X4, REPAIR OF HEMATOMA/FEMORAL ARTERY AFTER HEART CATHETERIZATION,rt foot bone spur removed Past Anesthesia/Blood Transfusion Reactions: Previous Problems w/ Anesthesia, Postoperative Nausea & Vomiting (PONV) Additional Past Anesthesia/Blood Transfusion Reaction / Comment(s): Hard to wake up. Past Psychological History: No Psychological Hx Reported Smoking Status: Never smoker Past Alcohol Use History: None Reported Past Drug Use History: None Reported - Past Family History Sister(s) Family Medical History: Cancer Brother(s) Family Medical History: Cancer Mother Family Medical History: Myocardial Infarction ([place]) Additional Family Medical History / Comment(s): Mother of a [place] at the age of 76yrs. Father History Unknown: Yes Family Medical History: Chest Pain / Angina <YvonneOwen Filed: 01/11/25 07:50> General Exam Limitations: no limitations General appearance: alert, in no apparent distress Head exam: Present: atraumatic, normocephalic Eye exam: Present: normal appearance. Absent: scleral icterus, conjunctival injection ENT exam: Present: normal oropharynx Neck exam: Present: normal inspection Respiratory exam: Present: wheezes. Absent: respiratory distress, rales, rhonchi, stridor, chest wall tenderness, accessory muscle use Cardiovascular Exam: Present: regular rate, normal rhythm, normal heart sounds. Absent: systolic murmur, diastolic murmur, rubs, gallop GI/Abdominal exam: Present: soft. Absent: distended, tenderness, guarding, rebound, rigid, mass Extremities exam: Present: normal inspection, normal capillary refill. Absent: pedal edema, calf tenderness Back exam: Present: normal inspection. Absent: CVA tenderness (R), CVA tenderness (L) Neurological exam: Present: alert Skin exam: Present: warm, dry, intact, normal color. Absent: rash <DominicOwen anderson Filed: 01/11/25 07:50> Course Vital Signs 01/11/25 01/11/25 01/11/25 05:00 06:04 06:10 Temperature 97.6 F 97.8 F Pulse Rate 91 93 88 Respiratory 18 20 Rate Blood Pressure 144/80 121/71 O2 Sat by Pulse 98 98 Oximetry 01/11/25 06:18 Temperature Pulse Rate 98 Respiratory Rate Blood Pressure O2 Sat by Pulse Oximetry Medical Decision Making - EKG Data -: EKG Interpreted by [facility] EKG shows normal: axis (Left axis deviation), intervals (QRS duration 149 ms, prolonged consistent with left bundle branch block. A QTc 494 ms, normal), QRS complexes ( left bundle branch block) Rate: normal (Rate 82 bpm) Interpretation: other (Atrial fibrillation) <YvonneOwen - Last Filed: 01/11/25 07:50> <Antony Waite - Last Filed: 01/11/25 09:08> - Medical Decision Making Was pt. sent in by a medical professional or institution (ASHLIE Varela, MEDICAL LAB DIRECTOR, urgent care, hospital, or jail...) When possible be specific @ -No Did you speak to anyone other than the patient for history (EMS, parent, family, police, friend...)? What history was obtained from this source @ - is present and helps provide history of patient having asthma/COPD Did you review nursing and triage notes (agree or disagree)? Why? @ -I reviewed and agree with nursing and triage notes Were old charts reviewed (outside hosp., previous admission, EMS record, old EKG, old radiological studies, urgent care reports/EKG's, jail records)? Report findings @ -No old charts were reviewed Differential Diagnosis (chest pain, altered mental status, abdominal pain women, abdominal pain men, vaginal bleeding, weakness, fever, dyspnea, syncope, headache, dizziness, GI bleed, back pain, seizure, CVA, palpatations, mental health, musculoskeletal)? @ -Differential Dyspnea: Coronary syndrome, arrhythmia, tamponade, asthma, COPD, pulmonary embolism, pneumonia, pneumothorax, pulmonary effusion, anaphylaxis, diabetic ketoacidosis, flailed chest, pulmonary contusion, diaphragmatic rupture, anemia, neuromuscular, this is not meant to be an all-inclusive list. EKG interpreted by me (3pts min.). @ -As above X-rays interpreted by me (1pt min.). @ -Unable to view secondary to PACS system being down CT interpreted by me (1pt min.). @ -None done U/S interpreted by me (1pt. min.). @ -None done What testing was considered but not performed or refused? (CT, X-rays, U/S, labs)? Why? @ -None What meds were considered but not given or refused? Why? @ -None Did you discuss the management of the patient with other professionals (professionals i.e. ASHLIE Varela, MEDICAL LAB DIRECTOR, lab, RT, psych nurse, social media content manager, machine umbrella tipper, teacher, traffic control officer, geriatric case manager)? Give summary @ -No Was smoking cessation discussed for >3mins.? @ -No Was critical care preformed (if so, how long)? @ -No Were there social determinants of health that impacted care today? How? (Homelessness, low income, unemployed, alcoholism, drug addiction, transportation, low edu. Level, literacy, decrease access to med. care, long term, rehab)? @ -No Was there de-escalation of care discussed even if they declined (Discuss DNR or withdrawal of care, Hospice)? DNR status @ -No What co-morbidities impacted this encounter? (DM, HTN, Smoking, COPD, CAD, Cancer, CVA, ARF, Chemo, Hep., AIDS, mental health diagnosis, sleep apnea, morbid obesity)? @ -History of asthma/COPD Was patient admitted / discharged? Hospital course, mention meds given and route, prescriptions, significant lab abnormalities, going to OR and other pertinent info. @ -Patient presents with cough. Viral testing unremarkable. Chest x-ray with questionable left lower pneumonia. Patient reevaluated and lung sounds are clear. No respiratory distress. Patient request discharge. Patient and family are updated on results and plan. Undiagnosed new problem with uncertain prognosis? @ -No Drug Therapy requiring intensive monitoring for toxicity (Heparin, Nitro, Insulin, Cardizem)? @ -No Were any procedures done? @ -No Diagnosis/symptom? @ -Pneumonia Acute, or Chronic, or Acute on Chronic? @ -Acute Uncomplicated (without systemic symptoms) or Complicated (systemic symptoms)? @ -Default Side effects of treatment? @ -No Exacerbation, Progression, or Severe Exacerbation? @ -No Poses a threat to life or bodily function? How? (Chest pain, [place], [place], pneumonia, PE, COPD, DKA, ARF, appy, cholecystitis, CVA, Diverticulitis, Homicidal, Suicidal, threat to staff... and all critical care pts) @ -No (Antony Waite) - Lab Data Lab Results 01/11/25 Range/Units 05:57 Influenza Type A (PCR) Not Detected (Not Detectd) Influenza Type B (PCR) Not Detected (Not Detectd) RSV (PCR) Not Detected (Not Detectd) SARS-CoV-2 (PCR) Not Detected (Not Detectd) Disposition <Owen Russell - Last Filed: 01/11/25 07:50> Is patient prescribed a controlled substance at d/c from ED?: No Time of Disposition: 09:08 <Antony Waite - Last Filed: 01/11/25 09:08> Clinical Impression: Pneumonia Disposition: HOME SELF-CARE Condition: Stable Instructions (If sedation given, give patient instructions): Community Acquired Pneumonia (ED) Additional Instructions: Please do follow-up with your primary care physician beginning of the week. Return for fevers, weakness, difficulty breathing, worsening or changing symptoms or any other concerns. Prescriptions have been sent to pharmacy. Prescriptions: predniSONE [Deltasone] 20 mg PO BID #8 tab Azithromycin [Zithromax Z Pack] 250 mg PO DAILY #6 tab Referrals: Dex Mcneal MD [Primary Care Provider] - 1-2 days
[2025-01-11 09:55] VITALS: BP 140/70; TEMP 97.9
== END 2025-01-11 09:50 | disposition home or self-care (01) ==
LOC: EC 04:57
DX: J44.0 Chronic obstructive pulmonary disease with (acute) lower respiratory infection (principal); Z88.0 Allergy status to penicillin; Z88.1 Allergy status to other antibiotic agents; Z88.2 Allergy status to sulfonamides; Z88.5 Allergy status to narcotic agent; Z88.6 Allergy status to analgesic agent; Z91.011 Allergy to milk products; Z91.018 Allergy to other foods; Z88.8 Allergy status to other drugs, medicaments and biological substances
CPT/HCPCS: 71045; 87636; 93005; 94640; 99285

== ENCOUNTER 2025-01-12 10:15 | Inpatient (IN) | payer MEDICARE, BC ==
--- NOTE | 2025-01-12 11:03 | ED ---
General Adult HPI - General Chief complaint: Upper Respiratory Infection Stated complaint: CIELO,Flu symptoms Time Seen by Provider: 01/12/25 10:40 Source: patient, family, EMS, RN notes reviewed Mode of arrival: EMS Limitations: no limitations - History of Present Illness Initial comments: 79-year-old female present emergency department not feeling well. Symptoms started 3 to 4 days ago. Patient was in the emergency department yesterday diagnosed with questionable pneumonia. Patient has gotten worse since she left. Patient has fatigue, decreased appetite and worsening breathing. Patient does have history of A-fib and is on anticoagulant for it. No fevers. - Related Data Home Medications Medication Instructions Recorded Confirmed Pantoprazole Sodium [Protonix] 40 mg PO BID 05/14/14 11/21/24 Cyanocobalamin (Vitamin B-12) 1,000 mcg PO DAILY 06/16/22 11/21/24 [Vitamin B-12] Lysine 1,000 mg PO DAILY 08/03/22 11/21/24 Warfarin Sodium 4 mg PO MOFR@209912/07/22 11/21/24 Warfarin Sodium 2 mg PO SUTUWETHSA@209901/25/23 11/21/24 DULoxetine HCL [Cymbalta] 60 mg PO DAILY 07/27/23 11/21/24 Ipratropium Nebulized [Atrovent 0.5 mg INHALATION RT-BID 07/27/23 11/21/24 Nebulized 0.2 MG/ML] Acetaminophen [Tylenol Extra 1,000 mg PO Q6H PRN 12/22/23 11/21/24 Strength] Albuterol Inhaler [Ventolin Hfa 2 puff INHALATION RT-Q6H PRN 12/22/23 11/21/24 Inhaler] Cholecalciferol (Vitamin D3) 50 mcg PO DAILY 12/22/23 11/21/24 [Vitamin D3 (50 Mcg = 2000 Iu)] Glucosam/Chond/Hyalu/Cf Borate 1 tab PO DAILY 12/22/23 11/21/24 [Move Free Joint Health Tablet] estradioL 2 mg PO DAILY 04/27/24 11/21/24 Previous Rx's Medication Instructions Recorded Pregabalin [Lyrica] 100 mg PO BID #6 cap 08/04/23 Atorvastatin [Lipitor] 40 mg PO HS #90 tab 12/25/23 Clopidogrel [Plavix] 75 mg PO DAILY #90 tab 01/06/24 Isosorbide Mononitrate ER [Imdur] 30 mg PO DAILY #90 tab 01/06/24 Metoprolol Tartrate [Lopressor] 12.5 mg PO BID #60 tab 01/06/24 Empagliflozin [Jardiance] 10 mg PO DAILY 30 Days #30 tablet 05/08/24 Furosemide [Lasix] 40 mg PO DAILY 30 Days #30 tab 05/08/24 Tamsulosin [Flomax] 0.4 mg PO PC-BRKFST 30 Days #30 cap 05/08/24 Furosemide [Lasix] 40 mg PO BID 7 Days #14 tablet 09/03/24 Azithromycin [Zithromax Z Pack] 250 mg PO DAILY #6 tab 01/11/25 predniSONE [Deltasone] 20 mg PO BID #8 tab 01/11/25 Allergies Allergy/AdvReac Type Severity Reaction Status Date / Time cephalexin monohydrate Allergy Rash/Hives Verified 01/12/25 10:24 [From Keflex] diphenhydramine HCl Allergy SWELLING Verified 01/12/25 10:24 [From Benadryl] OF TONGUE, SOB enoxaparin [From Lovenox] Allergy Rash/Hives Verified 01/12/25 10:24 Penicillins Allergy SWELLING, Verified 01/12/25 10:24 HIVES sulfamethoxazole Allergy Anaphylaxis, Verified 01/12/25 10:24 [From Bactrim] Swelling trimethoprim [From Bactrim] Allergy Anaphylaxis, Verified 01/12/25 10:24 Swelling aspirin AdvReac EXCESS Verified 01/12/25 10:24 BLEEDING garlic AdvReac Nausea Verified 01/12/25 10:24 milk AdvReac Abdominal Verified 01/12/25 10:24 Pain morphine AdvReac Vomiting Verified 01/12/25 10:24 milk chocolate AdvReac Nausea Uncoded 01/12/25 10:24 Review of Systems ROS Statement: Those systems with pertinent positive or pertinent negative responses have been documented in the HPI. ROS Other: All systems not noted in ROS Statement are negative. Constitutional: Reports: chills. Denies: fever Eyes: Denies: eye pain Respiratory: Reports: as per HPI, cough, dyspnea Cardiovascular: Denies: chest pain Endocrine: Reports: fatigue Gastrointestinal: Reports: nausea Musculoskeletal: Denies: back pain Past Medical History Past Medical History: Atrial Flutter, Asthma, Cancer, COPD, CVA/TIA, GERD/Reflux, GI Bleed, Hyperlipidemia, Hypertension, Memory Impairment, Myocardial Infarction ([place]), Osteoarthritis (OA), Renal Disease, Rheumatoid Arthritis (RA) Additional Past Medical History / Comment(s): Chronic cough. Back pain, migraines. residual from stroke,Occasional slight difficulty with swallowing. Hx gastic ulcer, H-Pylori, diverticulitis, hx melanoma on face X2. Hx kidney stones, "kidney function low", raynauds disease. recent stress test at Dr Castorena's office pt had chest pain-transferred to hospital heart cath unable to place stent at that time per pt. Last Myocardial Infarction Date:: 2012 History of Any Multi-Drug Resistant Organisms: None Reported Past Surgical History: Back Surgery, Cholecystectomy, Heart Catheterization, Hysterectomy, Joint Replacement, Orthopedic Surgery Additional Past Surgical History / Comment(s): RODS & CAGES IN BACK, RIGHT HIP REPLACEMENT, PARTIAL THYROIDECTOMY, BILATERAL KNEE REPLACEMENTS, NECK SURGERY WITH LIDIA AND CAGES, MELANOMA REMOVED FROM FACE X4, REPAIR OF HEMATOMA/FEMORAL ARTERY AFTER HEART CATHETERIZATION,rt foot bone spur removed Past Anesthesia/Blood Transfusion Reactions: Previous Problems w/ Anesthesia, Postoperative Nausea & Vomiting (PONV) Additional Past Anesthesia/Blood Transfusion Reaction / Comment(s): Hard to wake up. Past Psychological History: No Psychological Hx Reported Smoking Status: Never smoker Past Alcohol Use History: None Reported Past Drug Use History: None Reported - Past Family History Sister(s) Family Medical History: Cancer Brother(s) Family Medical History: Cancer Mother Family Medical History: Myocardial Infarction ([place]) Additional Family Medical History / Comment(s): Mother of a [place] at the age of 76yrs. Father History Unknown: Yes Family Medical History: Chest Pain / Angina General Exam Limitations: no limitations General appearance: alert Head exam: Present: normocephalic Eye exam: Present: normal appearance Neck exam: Absent: meningismus Respiratory exam: Present: wheezes Cardiovascular Exam: Present: irregular rhythm GI/Abdominal exam: Present: soft. Absent: tenderness Extremities exam: Present: normal inspection. Absent: pedal edema, calf tenderness Neurological exam: Present: alert Psychiatric exam: Present: normal affect, normal mood Skin exam: Present: normal color Course Vital Signs 01/12/25 01/12/25 01/12/25 10:18 11:34 11:44 Temperature 97.6 F Pulse Rate 90 86 81 Respiratory 20 Rate Blood Pressure 131/74 O2 Sat by Pulse 96 Oximetry EKG Findings - EKG Results: EKG: interpreted by TASHAD (Left axis. Left bundle branch block. Nonspecific ST- T.) EKG shows: atrial fibrillation Medical Decision Making - Medical Decision Making Was pt. sent in by a medical professional or institution (, [facility], FIRE ALARM DISPATCHER, urgent care, hospital, or shelter...) When possible be specific @ -No Did you speak to anyone other than the patient for history (EMS, parent, family, police, friend...)? What history was obtained from this source @ - is present helps provide history including onset of symptoms Did you review nursing and triage notes (agree or disagree)? Why? @ -I reviewed and agree with nursing and triage notes Were old charts reviewed (outside hosp., previous admission, EMS record, old EKG, old radiological studies, urgent care reports/EKG's, shelter records)? Report findings @ -Chest x-ray in chart reviewed from yesterday Differential Diagnosis (chest pain, altered mental status, abdominal pain women, abdominal pain men, vaginal bleeding, weakness, fever, dyspnea, syncope, headache, dizziness, GI bleed, back pain, seizure, CVA, palpatations, mental health, musculoskeletal)? @ -Differential Dyspnea: Coronary syndrome, arrhythmia, tamponade, asthma, COPD, pulmonary embolism, pneumonia, pneumothorax, pulmonary effusion, anaphylaxis, diabetic ketoacidosis, flailed chest, pulmonary contusion, diaphragmatic rupture, anemia, neuromuscular, this is not meant to be an all-inclusive list. EKG interpreted by me (3pts min.). @ -As above X-rays interpreted by me (1pt min.). @ -Chest x-ray does not reveal acute abnormality CT interpreted by me (1pt min.). @ -None done U/S interpreted by me (1pt. min.). @ -None done What testing was considered but not performed or refused? (CT, X-rays, U/S, labs)? Why? @ -None What meds were considered but not given or refused? Why? @ -None Did you discuss the management of the patient with other professionals (professionals i.e. , PA, FIRE ALARM DISPATCHER, lab, RT, psych nurse, hospital social worker, creative developer, teacher, loan officer assistant, rehabilitation case coordinator)? Give summary @ -Case was discussed with practitioner Rishi who will admit covering Dr. Castro Was smoking cessation discussed for >3mins.? @ -No Was critical care preformed (if so, how long)? @ -No Were there social determinants of health that impacted care today? How? (Homelessness, low income, unemployed, alcoholism, drug addiction, transportat ion, low edu. Level, literacy, decrease access to med. care, usp, rehab)? @ -No Was there de-escalation of care discussed even if they declined (Discuss DNR or withdrawal of care, Hospice)? DNR status @ -No What co-morbidities impacted this encounter? (DM, HTN, Smoking, COPD, CAD, Cancer, CVA, ARF, Chemo, Hep., AIDS, mental health diagnosis, sleep apnea, morbid obesity)? @ -History of COPD Was patient admitted / discharged? Hospital course, mention meds given and route, prescriptions, significant lab abnormalities, going to OR and other pertinent info. @ -Patient presents with cough and dyspnea. Wheezing on exam. Mild improvement with nebulizer patient still has significant wheezing. Patient will be admitted, admission orders written. Patient reevaluated. Patient and family updated. Undiagnosed new problem with uncertain prognosis? @ -No Drug Therapy requiring intensive monitoring for toxicity (Heparin, Nitro, Insulin, Cardizem)? @ -No Were any procedures done? @ -No Diagnosis/symptom? @ -COPD exacerbation Acute, or Chronic, or Acute on Chronic? @ -Acute Uncomplicated (without systemic symptoms) or Complicated (systemic symptoms)? @ -Default Side effects of treatment? @ -No Exacerbation, Progression, or Severe Exacerbation? @ -Exacerbation Poses a threat to life or bodily function? How? (Chest pain, [place], [place], pneumonia, PE, COPD, DKA, ARF, appy, cholecystitis, CVA, Diverticulitis, Homicidal, Suicidal, threat to staff... and all critical care pts) @ -Threat to pulmonary function - Lab Data Result diagrams: 01/12/25 11:06 01/12/25 11:06 Lab Results 01/12/25 01/12/25 01/12/25 Range/Units 11:06 11:06 11:06 WBC 10.2 (3.8-10.6) k/uL RBC 4.73 (3.80-5.40) m/uL Hgb 14.3 (11.4-16.0) gm/dL Hct 43.4 (34.0-46.0) % MCV 91.9 (80.0-100.0) fL MCH 30.3 (25.0-35.0) pg MCHC 33.0 (31.0-37.0) g/dL RDW 15.9 H (11.5-15.5) % Plt Count 230 (150-450) k/uL MPV 7.5 Neutrophils % 74 % Lymphocytes % 14 % Monocytes % 7 % Eosinophils % 2 % Basophils % 0 % Neutrophils # 7.5 (1.3-7.7) k/uL Lymphocytes # 1.4 (1.0-4.8) k/uL Monocytes # 0.8 (0-1.0) k/uL Eosinophils # 0.2 (0-0.7) k/uL Basophils # 0.0 (0-0.2) k/uL PT 19.0 H (10.0-12.5) sec INR 1.9 H (<1.2) APTT 29.7 (22.0-30.0) sec Sodium 139 (137-145) mmol/L Potassium 3.6 (3.5-5.1) mmol/L Chloride 102 (98-107) mmol/L Carbon Dioxide 22 (22-30) mmol/L Anion Gap 15 mmol/L BUN 16 (7-17) mg/dL Creatinine 1.01 (0.52-1.04) mg/dL Est GFR (CKD-EPI)AfAm 61 (>60 ml/min/1.73 sqM) Est GFR (CKD-EPI)NonAf 53 (>60 ml/min/1.73 sqM) Glucose 99 (74-99) mg/dL Plasma Lactic Acid Chris (0.7-2.0) mmol/L Calcium 9.6 (8.4-10.2) mg/dL Magnesium 2.1 (1.6-2.3) mg/dL Total Bilirubin 1.8 H (0.2-1.3) mg/dL AST 50 H (14-36) U/L ALT 30 (4-34) U/L Alkaline Phosphatase 117 (38-126) U/L NT-Pro-B Natriuret Pep 5300 pg/mL Total Protein 7.4 (6.3-8.2) g/dL Albumin 4.4 (3.5-5.0) g/dL Influenza Type A (PCR) (Not Detectd) Influenza Type B (PCR) (Not Detectd) RSV (PCR) (Not Detectd) SARS-CoV-2 (PCR) (Not Detectd) 01/12/25 01/12/25 Range/Units 11:06 11:06 WBC (3.8-10.6) k/uL RBC (3.80-5.40) m/uL Hgb (11.4-16.0) gm/dL Hct (34.0-46.0) % MCV (80.0-100.0) fL MCH (25.0-35.0) pg MCHC (31.0-37.0) g/dL RDW (11.5-15.5) % Plt Count (150-450) k/uL MPV Neutrophils % % Lymphocytes % % Monocytes % % Eosinophils % % Basophils % % Neutrophils # (1.3-7.7) k/uL Lymphocytes # (1.0-4.8) k/uL Monocytes # (0-1.0) k/uL Eosinophils # (0-0.7) k/uL Basophils # (0-0.2) k/uL PT (10.0-12.5) sec INR (<1.2) APTT (22.0-30.0) sec Sodium (137-145) mmol/L Potassium (3.5-5.1) mmol/L Chloride (98-107) mmol/L Carbon Dioxide (22-30) mmol/L Anion Gap mmol/L BUN (7-17) mg/dL Creatinine (0.52-1.04) mg/dL Est GFR (CKD-EPI)AfAm (>60 ml/min/1.73 sqM) Est GFR (CKD-EPI)NonAf (>60 ml/min/1.73 sqM) Glucose (74-99) mg/dL Plasma Lactic Acid Chris 1.6 (0.7-2.0) mmol/L Calcium (8.4-10.2) mg/dL Magnesium (1.6-2.3) mg/dL Total Bilirubin (0.2-1.3) mg/dL AST (14-36) U/L ALT (4-34) U/L Alkaline Phosphatase (38-126) U/L NT-Pro-B Natriuret Pep pg/mL Total Protein (6.3-8.2) g/dL Albumin (3.5-5.0) g/dL Influenza Type A (PCR) Not Detected (Not Detectd) Influenza Type B (PCR) Not Detected (Not Detectd) RSV (PCR) Not Detected (Not Detectd) SARS-CoV-2 (PCR) Not Detected (Not Detectd) Disposition Clinical Impression: Acute exacerbation of chronic obstructive pulmonary disease (COPD) Disposition: ADMITTED IP TO THIS HOSP Is patient prescribed a controlled substance at d/c from ED?: No Referrals: Dex Mcneal MD [Primary Care Provider] - 1-2 days Time of Disposition: 12:36
[2025-01-12 11:23] LABS: Basophils % (A) 0 %; Eosinophils # (A) 0.2 k/uL (0-0.7); Eosinophils % (A) 2 %; HCT 43.4 % (34.0-46.0); HGB 14.3 gm/dL (11.4-16.0); Lymphocytes # (A) 1.4 k/uL (1.0-4.8); Lymphocytes % (A) 14 %; MCH 30.3 pg (25.0-35.0); MCV 91.9 fL (80.0-100.0); Mean Platelet Volume 7.5; Monocytes # (A) 0.8 k/uL (0-1.0); Monocytes % (A) 7 %; Neutrophils # (A) 7.5 k/uL (1.3-7.7); Neutrophils % (A) 74 %; Platelet Count 230 k/uL (150-450); RBC 4.73 m/uL (3.80-5.40); RDW 15.9 % (11.5-15.5); WBC 10.2 k/uL (3.8-10.6)
[2025-01-12 11:32] LABS: INR 1.9 (<1.2); Partial Thromboplastin Time 29.7 sec (22.0-30.0)
[2025-01-12] MEDS: IPRATROPIUM-ALBUTEROL 3 ML NEB INHALATION STA (11:34)
[2025-01-12 11:36] LABS: ALT 30 U/L (4-34); AST 50 U/L (14-36); African American GFR (CKD) 61 (>60 ml/min/1.73 sqM); Albumin 4.4 g/dL (3.5-5.0); Alkaline Phosphatase 117 U/L (38-126); Anion Gap 15 mmol/L; Blood Urea Nitrogen 16 mg/dL (7-17); Calcium 9.6 mg/dL (8.4-10.2); Carbon Dioxide 22 mmol/L (22-30); Chloride 102 mmol/L (98-107); Glucose 99 mg/dL (74-99); Magnesium 2.1 mg/dL (1.6-2.3); Non-African American GFR(CKD) 53 (>60 ml/min/1.73 sqM); Potassium 3.6 mmol/L (3.5-5.1); Sodium 139 mmol/L (137-145); Total Bilirubin 1.8 mg/dL (0.2-1.3); Total Protein 7.4 g/dL (6.3-8.2)
[2025-01-12] MEDS: methylPREDNISolone SOD SUCCI 125 MG/2 ML VIAL IV STA (11:41)
[2025-01-12] MEDS: SODIUM CHLORIDE 0.9% 1,000 ML IV STA (11:41)
--- NOTE | 2025-01-12 11:43 | XR ---
EXAMINATION TYPE: XR chest 2V DATE OF EXAM: 01/12/2025 CLINICAL INDICATION: Female, 79 years old with history of difficulty breathing, TECHNIQUE: Frontal and lateral views of the chest are obtained. COMPARISON: Chest x-ray September 03, 2024 FINDINGS: There is no suspicious new focal air space opacity, pleural effusion, or pneumothorax see n. Cardiomegaly is redemonstrated. Anterior fusion plate in the cervical spine again seen . IMPRESSION: Cardiomegaly without acute pulmonary process. [facility], , 01/12/2025 11:41 AM
[2025-01-12 11:44] LABS: NT-Pro-B-Type Natriuretic Pept 5300 pg/mL
[2025-01-12 11:55] LABS: Influenza A Not Detected (Not Detectd); Influenza B Not Detected (Not Detectd); RSV Not Detected (Not Detectd)
[2025-01-12] MEDS ORDERED: NALOXONE 0.4 MG/ML 1 ML VIAL IVP PRN (12:37)
--- NOTE | 2025-01-12 13:12 | P.HPIM ---
History of Present Illness H&P Date: 01/12/25 History of Presenting Illness: Patient is a very pleasant 79-year-old female with a past medical history of CAD status post recent stenting, chronic persistent atrial fibrillation on anticoagulation with Coumadin, chronic systolic heart failure with previously known EF of 30 to 35%, hypertension, COPD with chronic hypoxic respiratory failure home oxygen dependent on 2 L at all times, and stage IIIb chronic kidney disease. She follows with [facility]. Dr. Bajwa and PCP Dr. Mcneal. She presented to the hospital with a chief complaint of shortness of breath. Patient reports symptoms began approximately 4 days ago with reports of generalized bodyaches/pain, fatigue, decreased appetite, diaphoresis, increasing shortness of breath, and coarse cough productive of white sputum. Patient denies having any known fevers, chills, headache, lightheadedness, dizziness, chest pain or palpitations, nausea, vomiting, abdominal pain, or experiencing any numbness/tingling/weakness/swelling in her extremities. Upon arrival to our facility, patient underwent evaluation in the emergency department. Vital signs upon arrival show blood pressure 131/74, heart rate 90, respiratory rate 20, temp 97.6 F, and SpO2 of 96% on room air. Patient placed on her baseline 2 L home O2 with SpO2 increasing to 97%. EKG completed showing atrial fibrillation with mild RVR to 106 bpm. Chest x-ray showing cardiomegaly negative for acute cardiopulmonary process showing no suspicious or new focal airspace opacities. Labs completed and reviewed. CBC unremarkable. Coagulation profile showing slightly subtherapeutic INR of 1.9. BMP unremarkable. Blood glucose 99. Lactic acid 1.6. Liver profile showing elevated total bili of 1.8 and AST of 50. Pro-BNP 5300. Influenza A, influenza B, RSV, and COVID PCR negative. Review of systems: Pertinent positives and negatives as discussed in HPI, a complete review of syst ems was performed and all other systems are negative. Physical exam: Vital signs reviewed and stable. General: Nontoxic, no distress and appears stated age. Derm: Skin warm and dry, normal coloration for ethnicity. Head: Atraumatic, normocephalic and symmetric. Eyes: EOMs intact, no lid lag, and anicteric sclera Mouth: no lip lesions, mucus membranes moist Cardiovascular: Irregularly irregular, systolic murmur, positive posterior tibial pulses bilaterally, and cap refill < 2 seconds. Lungs: Respirations even, regular, and unlabored on room air. Lungs diminished with diffuse expiratory wheezes throughout and coarse cough noted. No rhonchi, rales, or crackles noted Abdominal: soft, nontender to palpation, no guarding, no appreciable organo megaly Ext: ROM intact. No gross muscle atrophy, no edema, no contractures Neuro: Speech clear, face symmetrical and CN II-XII grossly intact with no noted focal neuro deficits Psych: Alert and oriented to person, place, time, and situation. Appropriate and pleasant affect. Assessment and Plan of Care: Acute respiratory failure with hypoxia COPD exacerbation Community-acquired pneumonia, possible -Consult to Pulmonology, appreciate recommendations -Oxygenation to be administered and titrated as needed to maintain SPO2 equal to or greater than 92% -Telemetry monitoring. -Monitor pulse-oximetry -Duonebs scheduled 4 times daily and as needed for SOB and/or wheezing -Incentive Spirometry -Antibiotics: Empirically started on: Levaquin 750 mg daily x 5 days. -Obtain sputum culture and procalcitonin -Steroids: Solu-Medrol 60 mg IVP every 6 hours. Subtherapeutic INR Chronic systolic heart failure with previously known EF of 30 to 35% History of CAD status post stenting Chronic atrial fibrillation -INR Subtherapeutic at 1.9. Order placed for Coumadin, pharmacy to dose with goal therapeutic range of 2-3. -Continue cardiac medication regimen with atorvastatin 40 mg nightly, Plavix 75 mg daily, Jardiance 10 mg daily, furosemide 40 mg daily, isosorbide mononitrate 30 mg daily, and metoprolol 12.5 mg twice daily. Data and imaging reviewed: As stated above in HPI. CODE STATUS: Full Code DVT prophylaxis: Coumadin Anticipated discharge date: 24 to 48-hour Anticipated discharge place: Home Patient was seen independently by Nurse Practitioner. This document was prepared using [employer] dictation software. Please allow for errors in cafe operator while rare they do occur. Rishi Hernandez NP rendered care for this patient independently, reviewed the findings and plan as documented in the note above. I did not physically speak with or examine the patient on this date. Past Medical History Past Medical History: Atrial Flutter, Asthma, Cancer, COPD, CVA/TIA, GERD/Reflux, GI Bleed, Hyperlipidemia, Hypertension, Memory Impairment, Myocardial Infarction ([place]), Osteoarthritis (OA), Renal Disease, Rheumatoid Arthritis (RA) Additional Past Medical History / Comment(s): Chronic cough. Back pain, migraines. residual from stroke,Occasional slight difficulty with swallowing. Hx gastic ulcer, H-Pylori, diverticulitis, hx melanoma on face X2. Hx kidney stones, "kidney function low", raynauds disease. recent stress test at Dr Castorena's office pt had chest pain-transferred to hospital heart cath unable to place stent at that time per pt. Last Myocardial Infarction Date:: 2012 History of Any Multi-Drug Resistant Organisms: None Reported Past Surgical History: Back Surgery, Cholecystectomy, Heart Catheterization, Hysterectomy, Joint Replacement, Orthopedic Surgery Additional Past Surgical History / Comment(s): RODS & CAGES IN BACK, RIGHT HIP REPLACEMENT, PARTIAL THYROIDECTOMY, BILATERAL KNEE REPLACEMENTS, NECK SURGERY WITH LIDIA AND CAGES, MELANOMA REMOVED FROM FACE X4, REPAIR OF HEMATOMA/FEMORAL ARTERY AFTER HEART CATHETERIZATION,rt foot bone spur removed Past Anesthesia/Blood Transfusion Reactions: Previous Problems w/ Anesthesia, Postoperative Nausea & Vomiting (PONV) Additional Past Anesthesia/Blood Transfusion Reaction / Comment(s): Hard to wake up. Past Psychological History: No Psychological Hx Reported Smoking Status: Never smoker Past Alcohol Use History: None Reported Past Drug Use History: None Reported - Past Family History Sister(s) Family Medical History: Cancer Brother(s) Family Medical History: Cancer Mother Family Medical History: Myocardial Infarction ([place]) Additional Family Medical History / Comment(s): Mother of a [place] at the age of 76yrs. Father History Unknown: Yes Family Medical History: Chest Pain / Angina Medications and Allergies Home Medications Medication Instructions Recorded Confirmed Type Pantoprazole Sodium [Protonix] 40 mg PO BID 05/14/14 01/12/25 History Cyanocobalamin (Vitamin B-12) 1,000 mcg PO DAILY 06/16/22 01/12/25 History [Vitamin B-12] Warfarin Sodium 4 mg PO TH@209912/07/22 01/12/25 History Warfarin Sodium 8 mg PO SUMOTUWEFRSA@209901/25/23 01/12/25 History DULoxetine HCL [Cymbalta] 60 mg PO DAILY 07/27/23 01/12/25 History Pregabalin [Lyrica] 100 mg PO BID #6 cap 08/04/23 01/12/25 Rx Albuterol Inhaler [Ventolin Hfa 2 puff INHALATION RT-Q6H PRN 12/22/23 01/12/25 History Inhaler] Cholecalciferol (Vitamin D3) 50 mcg PO DAILY 12/22/23 01/12/25 History [Vitamin D3 (50 Mcg = 2000 Iu)] Atorvastatin [Lipitor] 40 mg PO HS #90 tab 12/25/23 01/12/25 Rx Clopidogrel [Plavix] 75 mg PO DAILY #90 tab 01/06/24 01/12/25 Rx Isosorbide Mononitrate ER [Imdur] 30 mg PO DAILY #90 tab 01/06/24 01/12/25 Rx Empagliflozin [Jardiance] 10 mg PO DAILY 30 Days #30 tablet 05/08/24 01/12/25 Rx Furosemide [Lasix] 40 mg PO DAILY 30 Days #30 tab 05/08/24 01/12/25 Rx Azithromycin [Zithromax Z Pack] See Taper PO DIRECTED 01/12/25 01/12/25 History Ipratropium-Albuterol Nebulize 3 ml INHALATION RT-QID 01/12/25 01/12/25 History [Duoneb 0.5 mg-3 mg/3 ml Soln] Metoprolol Tartrate [Lopressor] 12.5 mg PO BID 01/12/25 01/12/25 History calcitrioL [Rocaltrol] 0.25 mcg PO DIRECTED 01/12/25 01/12/25 History estradioL [Estrace] 1 mg PO DAILY 01/12/25 01/12/25 History predniSONE [Deltasone] 20 mg PO DIRECTED 01/12/25 01/12/25 History Allergies Allergy/AdvReac Type Severity Reaction Status Date / Time cephalexin monohydrate Allergy Rash/Hives Verified 01/12/25 12:41 [From Keflex] diphenhydramine HCl Allergy SWELLING Verified 01/12/25 12:41 [From Benadryl] OF TONGUE, SOB enoxaparin [From Lovenox] Allergy Rash/Hives Verified 01/12/25 12:41 Penicillins Allergy SWELLING, Verified 01/12/25 12:41 HIVES sulfamethoxazole Allergy Anaphylaxis, Verified 01/12/25 12:41 [From Bactrim] Swelling trimethoprim [From Bactrim] Allergy Anaphylaxis, Verified 01/12/25 12:41 Swelling aspirin AdvReac EXCESS Verified 01/12/25 12:41 BLEEDING garlic AdvReac Nausea Verified 01/12/25 12:41 milk AdvReac Abdominal Verified 01/12/25 12:41 Pain morphine AdvReac Vomiting Verified 01/12/25 12:41 milk chocolate AdvReac Nausea Uncoded 01/12/25 10:24 Physical Exam Vitals: Vital Signs Temp Pulse Resp BP Pulse Ox 01/12/25 11:44 81 01/12/25 11:34 86 01/12/25 10:18 97.6 F 90 20 131/74 96 Intake and Output 01/11/25 01/12/25 01/12/25 22:59 06:59 14:59 Other: Weight 80.286 kg Results CBC & Chem 7: 01/12/25 11:06 01/12/25 11:06 Labs: Abnormal Lab Results - Last 24 Hours (Table) 01/12/25 01/12/25 01/12/25 Range/Units 11:06 11:06 11:06 RDW 15.9 H (11.5-15.5) % PT 19.0 H (10.0-12.5) sec INR 1.9 H (<1.2) Total Bilirubin 1.8 H (0.2-1.3) mg/dL AST 50 H (14-36) U/L
[2025-01-12] MEDS ORDERED: ALBUTEROL NEBULIZED 2.5 MG/3 ML INHALATION PRN (13:23)
[2025-01-12] MEDS: AZITHROMYCIN 500 MG TAB PO SCH (14:01)
[2025-01-12] MEDS ORDERED: IPRATROPIUM-ALBUTEROL 3 ML NEB INHALATION SCH (16:00)
[2025-01-12] MEDS: LEVOFLOXACIN 750 MG TAB PO SCH (16:20)
[2025-01-12] MEDS: IPRATROPIUM-ALBUTEROL 3 ML NEB INHALATION SCH (16:46)
[2025-01-12] MEDS: methylPREDNISolone SOD SUCCI 125 MG/2 ML VIAL IV SCH (20:58)
[2025-01-12] MEDS: ATORVASTATIN 40 MG TAB PO SCH (20:59)
[2025-01-12] MEDS: PANTOPRAZOLE 40 MG TABLET PO SCH (20:59)
[2025-01-12] MEDS: METOPROLOL TARTRATE 12.5 MG TAB PO SCH (20:59)
[2025-01-12] MEDS: PREGABALIN 100 MG CAP PO SCH (20:59)
[2025-01-12] MEDS: BENZONATATE 100 MG CAP PO PRN (21:54)
[2025-01-13] MEDS: IPRATROPIUM-ALBUTEROL 3 ML NEB INHALATION PRN (00:09)
[2025-01-13] MEDS ORDERED: WARFARIN 0.5 MG TAB PO ONE ×2 (00:15→18:00)
[2025-01-13] MEDS ORDERED: WARFARIN 7.5 MG TAB PO ONE ×2 (00:15→18:00)
[2025-01-13] MEDS: WARFARIN 2 MG TAB PO ONE (00:43)
[2025-01-13] MEDS: ACETAMINOPHEN TAB 325 MG TAB PO PRN (01:17)
[2025-01-13] MEDS: ONDANSETRON 4 MG/2 ML VIAL IVP PRN (05:49)
[2025-01-13] MEDS: CYANOCOBALAMIN 500 MCG TAB PO SCH (08:43)
[2025-01-13] MEDS: CLOPIDOGREL 75 MG TAB PO SCH (08:43)
[2025-01-13] MEDS: ISOSORBIDE MONONITRATE ER 30 MG TAB.ER.24H PO SCH (08:44)
[2025-01-13] MEDS: FUROSEMIDE 40 MG TAB PO SCH (08:44)
[2025-01-13] MEDS: DULoxetine HCL 60 MG CAPSULE.DR PO SCH (08:44)
[2025-01-13] MEDS: DAPAGLIFLOZIN PROPANEDIOL 5 MG TABLET PO SCH (08:44)
[2025-01-13] MEDS: CHOLECALCIFEROL 25 MCG (1000 IU) TABLET PO SCH (08:44)
[2025-01-13 09:22] LABS: HCT 42.3 % (37.2-46.3); HGB 13.9 g/dL (12.0-15.0); MCH 30.3 pg (27.0-32.0); MCHC 32.9 g/dL (32.0-37.0); MCV 92.2 FL (80.0-97.0); Mean Platelet Volume 9.9 FL (9.5-12.2); NRBC Per 100 WBC 0 X 10*3/uL (0.00-0.01); Platelet Count 220 X 10*3/uL (140-440); RBC 4.59 X 10*6/uL (4.10-5.20); RDW 16.5 % (11.5-14.5); WBC 8.23 X 10*3/uL (4.50-10.00)
[2025-01-13 09:44] LABS: ALT 31 U/L (8-44); AST 41 U/L (13-35); Albumin 4.5 g/dL (3.8-4.9); Albumin/Globulin Ratio 1.67 Ratio (1.60-3.17); Alkaline Phosphatase 101 U/L (41-126); BUN/Creat Ratio 14.92 Ratio (12.00-20.00); Blood Urea Nitrogen 19.4 mg/dL (9.0-27.0); Calcium 9.7 mg/dL (8.7-10.3); Carbon Dioxide 21.1 mmol/L (21.6-31.8); Chloride 102 mmol/L (96-109); Globulin 2.7 g/dL (1.6-3.3); Glucose 170 mg/dL (70-110); Potassium 3.2 mmol/L (3.5-5.5); Sodium 139 mmol/L (135-145); Total Bilirubin 0.7 mg/dL (0.3-1.2); Total Protein 7.2 g/dL (6.2-8.2)
[2025-01-13 10:00] LABS: Prothrombin Time 20.4 sec (10.0-12.5)
--- NOTE | 2025-01-13 12:22 | P.CNPUL ---
History of Present Illness Consult date: 01/13/25 Requesting physician: Rishi Hernandez Reason for consult: cough, COPD Chief complaint: Shortness of breath, cough, congestion History of present illness: This is a 79-year-old female patient with a known history of mild intermittent chronic bronchial asthma, non-smoker, hyperlipidemia, coronary artery disease with stent placement, congestive heart failure, hypertension. She presented here to the emergency room yesterday after a 3 to 4-day history of increasing shortness of breath, cough and congestion. She was seen in the emergency room the day prior and was discharged home on antibiotics. Chest x-ray shows cardiomegaly without acute pulmonary process. White count 8.2. Hemoglobin 13.9. Platelets 220. INR 2.0. Sodium 139. Potassium 3.2. Bicarb 21. BUN 19. Creatinine 1.3. Glucose 170. Procalcitonin negative at 0.08. Viral screen negative. She is seen today in consultation on the regular medical floor. She is resting in bed. Awake and alert in no acute distress. She has a loose nonproductive cough. She is afebrile. Hemodynamically stable. Maintaining O2 saturations in the 90s on 2 L/min per nasal cannula. Review of Systems REVIEW OF SYSTEMS: CONSTITUTIONAL: Denies any recent significant weight loss or weight gain. EYES: Denies change in vision. EARS, NOSE, MOUTH, THROAT: Denies headaches, denies sore throat. CARDIOVASCULAR: Denies chest pain, palpitations or syncopal episodes. RESPIRATORY: Positive for shortness of breath, cough, congestion no hemoptysis. GASTROINTESTINAL: Denies change in appetite, denies abdominal pain GENITOURINARY: Denies hematuria, denies infections. MUSKULOSKELETAL: Denies pain, denies swelling. INTEGUMENTARY: Denies rash, denies eczema. NEUROLOGICAL: Denies recent memory loss, no recent seizure activity. PSYCHIATRIC: Denies anxiety, denies depression. HEMATOLOGIC/LYMPHATIC: Denies anemia, denies enlarged lymph nodes. Past Medical History Past Medical History: Atrial Flutter, Asthma, Cancer, COPD, CVA/TIA, GERD/Reflux, GI Bleed, Hyperlipidemia, Hypertension, Memory Impairment, Myocardial Infarction (NH), Osteoarthritis (OA), Renal Disease, Rheumatoid A rthritis (RA) Additional Past Medical History / Comment(s): Chronic cough. Back pain, migraines. residual from stroke,Occasional slight difficulty with swallowing. Hx gastic ulcer, H-Pylori, diverticulitis, hx melanoma on face X2. Hx kidney stones, "kidney function low", raynauds disease. recent stress test at Dr Castorena's office pt had chest pain-transferred to hospital heart cath unable to place stent at that time per pt. Last Myocardial Infarction Date:: 2012 History of Any Multi-Drug Resistant Organisms: None Reported Past Surgical History: Back Surgery, Cholecystectomy, Heart Catheterization, Hysterectomy, Joint Replacement, Orthopedic Surgery Additional Past Surgical History / Comment(s): RODS & CAGES IN BACK, RIGHT HIP REPLACEMENT, PARTIAL THYROIDECTOMY, BILATERAL KNEE REPLACEMENTS, NECK SURGERY WITH LIDIA AND CAGES, MELANOMA REMOVED FROM FACE X4, REPAIR OF HEMATOMA/FEMORAL ARTERY AFTER HEART CATHETERIZATION,rt foot bone spur removed Past Anesthesia/Blood Transfusion Reactions: Previous Problems w/ Anesthesia, Postoperative Nausea & Vomiting (PONV) Additional Past Anesthesia/Blood Transfusion Reaction / Comment(s): Hard to wake up. Past Psychological History: No Psychological Hx Reported Additional Psychological History / Comment(s): . Smoking Status: Never smoker Past Alcohol Use History: None Reported Past Drug Use History: None Reported - Past Family History Sister(s) Family Medical History: Cancer Brother(s) Family Medical History: Cancer Mother Family Medical History: Myocardial Infarction (NH) Additional Family Medical History / Comment(s): Mother of a NH at the age of 76yrs. Father History Unknown: Yes Family Medical History: Chest Pain / Angina Medications and Allergies Home Medications Medication Instructions Recorded Confirmed Type Pantoprazole Sodium [Protonix] 40 mg PO BID 05/14/14 01/12/25 History Cyanocobalamin (Vitamin B-12) 1,000 mcg PO DAILY 06/16/22 01/12/25 History [Vitamin B-12] Warfarin Sodium 4 mg PO TH@209912/07/22 01/12/25 History Warfarin Sodium 8 mg PO SUMOTUWEFRSA@209901/25/23 01/12/25 History DULoxetine HCL [Cymbalta] 60 mg PO DAILY 07/27/23 01/12/25 History Pregabalin [Lyrica] 100 mg PO BID #6 cap 08/04/23 01/12/25 Rx Albuterol Inhaler [Ventolin Hfa 2 puff INHALATION RT-Q6H PRN 12/22/23 01/12/25 History Inhaler] Cholecalciferol (Vitamin D3) 50 mcg PO DAILY 12/22/23 01/12/25 History [Vitamin D3 (50 Mcg = 2000 Iu)] Atorvastatin [Lipitor] 40 mg PO HS #90 tab 12/25/23 01/12/25 Rx Clopidogrel [Plavix] 75 mg PO DAILY #90 tab 01/06/24 01/12/25 Rx Isosorbide Mononitrate ER [Imdur] 30 mg PO DAILY #90 tab 01/06/24 01/12/25 Rx Empagliflozin [Jardiance] 10 mg PO DAILY 30 Days #30 tablet 05/08/24 01/12/25 Rx Furosemide [Lasix] 40 mg PO DAILY 30 Days #30 tab 05/08/24 01/12/25 Rx Azithromycin [Zithromax Z Pack] See Taper PO DIRECTED 01/12/25 01/12/25 History Ipratropium-Albuterol Nebulize 3 ml INHALATION RT-QID 01/12/25 01/12/25 History [Duoneb 0.5 mg-3 mg/3 ml Soln] Metoprolol Tartrate [Lopressor] 12.5 mg PO BID 01/12/25 01/12/25 History calcitrioL [Rocaltrol] 0.25 mcg PO DIRECTED 01/12/25 01/12/25 History estradioL [Estrace] 1 mg PO DAILY 01/12/25 01/12/25 History predniSONE [Deltasone] 20 mg PO DIRECTED 01/12/25 01/12/25 History Allergies Allergy/AdvReac Type Severity Reaction Status Date / Time cephalexin monohydrate Allergy Rash/Hives Verified 01/12/25 12:41 [From Keflex] diphenhydramine HCl Allergy SWELLING Verified 01/12/25 12:41 [From Benadryl] OF TONGUE, SOB enoxaparin [From Lovenox] Allergy Rash/Hives Verified 01/12/25 12:41 Penicillins Allergy SWELLING, Verified 01/12/25 12:41 HIVES sulfamethoxazole Allergy Anaphylaxis, Verified 01/12/25 12:41 [From Bactrim] Swelling trimethoprim [From Bactrim] Allergy Anaphylaxis, Verified 01/12/25 12:41 Swelling aspirin AdvReac EXCESS Verified 01/12/25 12:41 BLEEDING garlic AdvReac Nausea Verified 01/12/25 12:41 milk AdvReac Abdominal Verified 01/12/25 12:41 Pain morphine AdvReac Vomiting Verified 01/12/25 12:41 milk chocolate AdvReac Nausea Uncoded 01/12/25 10:24 Physical Exam Vitals: Vital Signs Temp Pulse Pulse Resp BP BP BP 01/13/25 11:11 100 01/13/25 10:57 96 01/13/25 07:52 100 01/13/25 07:37 104 H 01/13/25 07:11 97.5 F L 62 20 159/90 01/13/25 03:45 92 01/13/25 03:36 98 01/13/25 01:04 97.6 F 98 17 154/78 01/13/25 00:19 112 H 01/13/25 00:10 108 H 01/12/25 19:48 108 H 01/12/25 19:34 104 H 01/12/25 18:45 97.9 F 104 H 18 139/64 01/12/25 17:43 18 01/12/25 16:58 95 01/12/25 16:46 116 H 01/12/25 16:17 92 18 136/76 01/12/25 14:02 93 18 122/69 Pulse Ox 01/13/25 11:11 01/13/25 10:57 01/13/25 07:52 01/13/25 07:37 01/13/25 07:11 97 01/13/25 03:45 01/13/25 03:36 01/13/25 01:04 96 01/13/25 00:19 01/13/25 00:10 01/12/25 19:48 01/12/25 19:34 01/12/25 18:45 98 01/12/25 17:43 01/12/25 16:58 01/12/25 16:46 01/12/25 16:17 97 01/12/25 14:02 97 Intake and Output 01/12/25 01/13/25 01/13/25 22:59 06:59 14:59 Intake Total 180 Balance 180 Intake: Oral 180 Other: # Voids 1 2 # Bowel Movements 1 Weight 80.286 kg GENERAL EXAM: Alert, pleasant 79-year-old female, on 2 L nasal cannula, comfortable in no apparent distress. HEAD: Normocephalic. EYES: Normal reaction of pupils, equal size. NOSE: Clear with pink turbinates. THROAT: No erythema or exudates. NECK: No masses, no JVD. CHEST: No chest wall deformity. LUNGS: Equal air entry with few scattered rhonchi. CVS: S1 and S2 normal with no audible murmur, regular rhythm. ABDOMEN: No hepatosplenomegaly, normal bowel sounds, no guarding or rigidity. SPINE: No scoliosis or deformity SKIN: No rashes CENTRAL NERVOUS SYSTEM: No focal deficits, tone is normal in all 4 extremities. EXTREMITIES: There is no peripheral edema. No clubbing, no cyanosis. Peripheral pulses are intact. Results - Laboratory Findings CBC and BMP: 01/13/25 04:45 01/13/25 04:45 PT/INR, D-dimer PT 20.4 sec (10.0-12.5) H 01/13/25 09:22 INR 2.0 (<1.2) H 01/13/25 09:22 Abnormal lab findings: Abnormal Labs 01/12/25 01/12/25 01/12/25 11:06 11:06 11:06 RDW 15.9 H PT 19.0 H INR 1.9 H Potassium Carbon Dioxide Anion Gap Est GFR (CKD-EPI) Glucose Total Bilirubin 1.8 H AST 50 H 01/13/25 01/13/25 01/13/25 04:45 04:45 09:22 RDW 16.5 H PT 20.4 H INR 2.0 H Potassium 3.2 L Carbon Dioxide 21.1 L Anion Gap 15.90 H Est GFR (CKD-EPI) 42 L Glucose 170 H Total Bilirubin AST 41 H - Diagnostic Findings Chest x-ray: image reviewed Assessment and Plan Assessment: Acute hypoxemic respiratory failure secondary to an acute exacerbation of mild intermittent chronic bronchial asthma complicated by purulent tracheobronchitis. Chest x-ray shows no acute process. Procalcitonin negative. Viral screen negative History of mild intermittent chronic bronchial asthma Non-smoker History of systolic congestive heart failure Chronic kidney disease stage IIIb Chronic atrial fibrillation anticoagulated with warfarin Chronic systolic heart failure with an ejection fraction of 30 to 35% Coronary disease with previous stenting to the LAD x 2 in 2023 Anemia of chronic disease Hypertension Hyperlipidemia Rheumatoid arthritis History of CVA Previous history of melanoma of the face, resected Diverticulosis Plan: The patient was seen and evaluated Chest x-ray, labs and medications reviewed Continue Levaquin Continue DuoNeb inhalations Continue Pulmicort and Perforomist inhalations Continue Solu-Medrol Protonix for GI prophylaxis Remains on warfarin, INR therapeutic Continue her home medications Titrate down/off the FiO2 as tolerated Increase her activity as tolerated We will continue to follow and make further recommendations based on her clinical status I have personally seen and examined the patient, performed the documentation and the assessment and plan as written. Number of minutes spent on the visit: 20 Dictation was produced using [employer] dictation software. Please excuse any grammatical, word or spelling errors. Time with Patient: Greater than 30
[2025-01-13] MEDS: POTASSIUM CHLORIDE ER 20 MEQ TAB.ER PO STA (13:16)
--- NOTE | 2025-01-13 16:04 | P.PN ---
Subjective Progress Note Date: 01/13/25 Hospital course: Patient is a very pleasant 79-year-old female with a past medical history of CAD status post recent stenting, chronic persistent atrial fibrillation on anticoagulation with Coumadin, chronic systolic heart failure with previously known EF of 30 to 35%, hypertension, COPD with chronic hypoxic respiratory failure home oxygen dependent on 2 L at all times, and stage IIIb chronic kidney disease. She follows with [facility]. Dr. Bajwa and PCP Dr. Mcneal. She presented to the hospital with a chief complaint of shortness of breath. Patient reports symptoms began approximately 4 days ago with reports of generalized bodyaches/pain, fatigue, decreased appetite, diaphoresis, increasing shortness of breath, and coarse cough productive of white sputum. Patient denies having any known fevers, chills, headache, lightheadedness, dizziness, ch est pain or palpitations, nausea, vomiting, abdominal pain, or experiencing any numbness/tingling/weakness/swelling in her extremities. Upon arrival to our facility, patient underwent evaluation in the emergency department. Vital signs upon arrival show blood pressure 131/74, heart rate 90, respiratory rate 20, temp 97.6 F, and SpO2 of 96% on room air. Patient placed on her baseline 2 L home O2 with SpO2 increasing to 97%. EKG completed showing atrial fibrillation with mild RVR to 106 bpm. Chest x-ray showing cardiomegaly negative for acute cardiopulmonary process showing no suspicious or new focal airspace opacities. Labs completed and reviewed. CBC unremarkable. Coagulation profile showing slightly subtherapeutic INR of 1.9. BMP unremarkable. Blood glucose 99. Lactic acid 1.6. Liver profile showing elevated total bili of 1.8 and AST of 50. Pro-BNP 5300. Influenza A, influenza B, RSV, and COVID PCR negative. Patient admitted under services with consultation to pulmonology Physical exam: Patient seen and fully evaluated at bedside this morning. She reports continued shortness of breath significantly worsens with exertion accompanied by continued coarse cough. Patient remains very bronchospastic with diffuse expiratory wheezes throughout. Equal airflow in and out improved from yesterday. Vital signs reviewed and stable. General: Nontoxic, no distress and appears stated age. Derm: Skin warm and dry, normal coloration for ethnicity. Head: Atraumatic, normocephalic and symmetric. Eyes: EOMs intact, no lid lag, and anicteric sclera Mouth: no lip lesions, mucus membranes moist Cardiovascular: Irregularly irregular, systolic murmur, positive posterior tibial pulses bilaterally, and cap refill < 2 seconds. Lungs: Respirations even, regular, and unlabored on 2L.. Lungs diminished with diffuse expiratory wheezes throughout and continued coarse cough noted. No rhonchi, rales, or crackles noted Abdominal: soft, nontender to palpation, no guarding, no appreciable organomegaly Ext: ROM intact. No gross muscle atrophy, no edema, no contractures Neuro: Speech clear, face symmetrical and CN II-XII grossly intact with no noted focal neuro deficits Psych: Alert and oriented to person, place, time, and situation. Appropriate and pleasant affect. Assessment and Plan of Care: Acute on chronic respiratory failure COPD/chronic bronchial asthma exacerbation Purulent tracheobronchitis -Following, discussed plan of care with header set up operator and pulmonary PLANTING MACHINE CREWMAN. There is starting patient on performance 1 mg inhalation twice daily and Perforomist 20 mcg inhaler twice daily in addition to current medication regimen. -Oxygenation to be administered and titrated as needed to maintain SPO2 equal to or greater than 92% -Telemetry monitoring. -Monitor pulse-oximetry -Duonebs scheduled 4 times daily and as needed for SOB and/or wheezing -Incentive Spirometry -Antibiotics: Continue Levaquin 750 mg every 48 hours -Obtain sputum culture and procalcitonin negative at 0.08. -Steroids: Solu-Medrol 60 mg IVP every 6 hours. Subtherapeutic INR on arrival, currently therapeutic at 2.0 Chronic systolic heart failure with previously known EF of 30 to 35% History of CAD status post stenting Chronic atrial fibrillation -Continue Coumadin, pharmacy to dose with goal therapeutic range of 2-3. -Continue cardiac medication regimen with atorvastatin 40 mg nightly, Plavix 75 mg daily, Jardiance 10 mg daily, furosemide 40 mg daily, isosorbide mononitrate 30 mg daily, and metoprolol 12.5 mg twice daily. Data and imaging reviewed: Morning labs reviewed. CBC showing no significant abnormalities. Coagulation profile showing a therapeutic INR of 2.0. BMP showing hypokalemia with potassium of 3.2, hypocarbia with bicarb of 21.1, and elevated anion gap of 15.90. Blood glucose 170. Liver profile showing resolution of hyper bilirubinemia and improvement of elevated AST down to 41 this morning. Vital signs reviewed. Blood pressure 159/90, heart rate 62, respiratory rate 20, temp 97.5 F, and SpO2 of 97% on 2 L. Patient did have mild tachycardia with up to 104 with ambulation. CODE STATUS: Full Code DVT prophylaxis: Coumadin Anticipated discharge date: Likely tomorrow morning, pending improvement. Anticipated discharge place: Home Patient was seen independently by Nurse Practitioner. This document was prepared using [employer] dictation software. Please allow for errors in tailings worker while rare they do occur. Rishi Hernandez PLANTING MACHINE CREWMAN rendered care for this patient independently, reviewed the findings and plan as documented in the note above. I did not physically speak with or examine the patient on this date. Objective - Vital Signs Vital signs: Vital Signs Temp 97.5 F L 01/13/25 07:11 Pulse 100 01/13/25 07:52 Resp 20 01/13/25 07:11 BP 159/90 01/13/25 07:11 Pulse Ox 97 01/13/25 07:11 FiO2 Intake & Output 01/12/25 01/13/25 01/13/25 18:59 06:59 18:59 Intake Total 180 Balance 180 Weight 80.286 kg Intake: Oral 180 Other: # Voids 2 # Bowel Movements 1 - Labs CBC & Chem 7: 01/13/25 04:45 01/13/25 04:45 Labs: Abnormal Lab Results - Last 24 Hours (Table) 01/12/25 01/12/25 01/12/25 Range/Units 11:06 11:06 11:06 RDW 15.9 H (11.5-15.5) % PT 19.0 H (10.0-12.5) sec INR 1.9 H (<1.2) Potassium (3.5-5.5) mmol/L Carbon Dioxide (21.6-31.8) mmol/L Anion Gap (4.00-12.00) mmol/L Est GFR (CKD-EPI) (>=60) Glucose (70-110) mg/dL Total Bilirubin 1.8 H (0.2-1.3) mg/dL AST 50 H (14-36) U/L 01/13/25 01/13/25 Range/Units 04:45 04:45 RDW 16.5 H (11.5-15.5) % PT (10.0-12.5) sec INR (<1.2) Potassium 3.2 L (3.5-5.5) mmol/L Carbon Dioxide 21.1 L (21.6-31.8) mmol/L Anion Gap 15.90 H (4.00-12.00) mmol/L Est GFR (CKD-EPI) 42 L (>=60) Glucose 170 H (70-110) mg/dL Total Bilirubin (0.2-1.3) mg/dL AST 41 H (14-36) U/L Microbiology - Last 24 Hours (Table) 01/12/25 16:55 Gram Stain - Preliminary Sputum
[2025-01-13] MEDS ORDERED: WARFARIN 2 MG TAB PO ONE ×2 (18:00)
[2025-01-13] MEDS: WARFARIN 5 MG TAB PO ONE (18:09)
[2025-01-13] MEDS: BUDESONIDE 1 MG/2 ML NEBU INHALATION SCH (19:10)
[2025-01-13] MEDS: FORMOTEROL FUMARATE 20 MCG/2 ML NEBU INHALATION SCH (19:10)
[2025-01-13] MEDS: guaiFENesin 600 MG TABLET.ER PO SCH (21:25)
[2025-01-14] MEDS: MELATONIN 3 MG TABLET PO SCH (02:36)
[2025-01-14 06:39] LABS: INR 3.9 (<1.2); Prothrombin Time 38.2 sec (10.0-12.5)
[2025-01-14 08:41] LABS: HCT 40.4 % (37.2-46.3); HGB 13.4 g/dL (12.0-15.0); MCH 30.8 pg (27.0-32.0); MCHC 33.2 g/dL (32.0-37.0); MCV 92.9 FL (80.0-97.0); Mean Platelet Volume 10.5 FL (9.5-12.2); NRBC Per 100 WBC 0 X 10*3/uL (0.00-0.01); Platelet Count 253 X 10*3/uL (140-440); RBC 4.35 X 10*6/uL (4.10-5.20); RDW 16.9 % (11.5-14.5); WBC 14.97 X 10*3/uL (4.50-10.00)
[2025-01-14 08:52] LABS: Magnesium 2.3 mg/dL (1.5-2.4)
[2025-01-14 09:24] LABS: ALT 35 U/L (8-44); AST 49 U/L (13-35); Albumin 4.2 g/dL (3.8-4.9); Albumin/Globulin Ratio 1.68 Ratio (1.60-3.17); Alkaline Phosphatase 84 U/L (41-126); BUN/Creat Ratio 19.12 Ratio (12.00-20.00); Blood Urea Nitrogen 30.6 mg/dL (9.0-27.0); Calcium 9.5 mg/dL (8.7-10.3); Carbon Dioxide 21.8 mmol/L (21.6-31.8); Chloride 104 mmol/L (96-109); Globulin 2.5 g/dL (1.6-3.3); Glucose 147 mg/dL (70-110); Potassium 4.2 mmol/L (3.5-5.5); Sodium 139 mmol/L (135-145); Total Bilirubin 0.3 mg/dL (0.3-1.2); Total Protein 6.7 g/dL (6.2-8.2)
--- NOTE | 2025-01-14 11:03 | P.PN ---
Subjective Progress Note Date: 01/14/25 Hospital course: Patient is a very pleasant 79-year-old female with a past medical history of CAD status post recent stenting, chronic persistent atrial fibrillation on anticoagulation with Coumadin, chronic systolic heart failure with previously known EF of 30 to 35%, hypertension, COPD with chronic hypoxic respiratory failure home oxygen dependent on 2 L at all times, and stage IIIb chronic kidney disease. She follows with [employer]. Dr. Bajwa and PCP Dr. Mcneal. She presented to the hospital with a chief complaint of shortness of breath. Patient reports symptoms began approximately 4 days ago with reports of generalized bodyaches/pain, fatigue, decreased appetite, diaphoresis, increasing shortness of breath, and coarse cough productive of white sputum. Patient denies having any known fevers, chills, headache, lightheadedness, dizziness, ch est pain or palpitations, nausea, vomiting, abdominal pain, or experiencing any numbness/tingling/weakness/swelling in her extremities. Upon arrival to our facility, patient underwent evaluation in the emergency department. Vital signs upon arrival show blood pressure 131/74, heart rate 90, respiratory rate 20, temp 97.6 F, and SpO2 of 96% on room air. Patient placed on her baseline 2 L home O2 with SpO2 increasing to 97%. EKG completed showing atrial fibrillation with mild RVR to 106 bpm. Chest x-ray showing cardiomegaly negative for acute cardiopulmonary process showing no suspicious or new focal airspace opacities. Labs completed and reviewed. CBC unremarkable. Coagulation profile showing slightly subtherapeutic INR of 1.9. BMP unremarkable. Blood glucose 99. Lactic acid 1.6. Liver profile showing elevated total bili of 1.8 and AST of 50. Pro-BNP 5300. Influenza A, influenza B, RSV, and COVID PCR negative. Patient admitted under services with consultation to pulmonology Physical exam: Patient seen and fully evaluated at bedside this morning. She reports continued shortness of breath significantly worsens with exertion accompanied by continued coarse coughing fits. Patient remains very bronchospastic with diffuse exp iratory wheezes throughout. She denies any other complaints including headache, lightheadedness, dizziness, chest pain, palpitations, or experiencing any numbness/tingling/weakness in her extremities. RN reports patient does become quite tachycardic upon mild exertion such as walking to the bathroom as well as with her coughing fits. Vital signs reviewed and stable. General: Nontoxic, no distress and appears stated age. Derm: Skin warm and dry, normal coloration for ethnicity. Head: Atraumatic, normocephalic and symmetric. Eyes: EOMs intact, no lid lag, and anicteric sclera Mouth: no lip lesions, mucus membranes moist Cardiovascular: Irregularly irregular, systolic murmur, positive posterior tibial pulses bilaterally, and cap refill < 2 seconds. Lungs: Respirations even, regular, and unlabored on 2L.. Lungs diminished with diffuse expiratory wheezes throughout and continued coarse cough noted. No rhonchi, rales, or crackles noted Abdominal: soft, nontender to palpation, no guarding, no appreciable organomegaly Ext: ROM intact. No gross muscle atrophy, no edema, no contractures Neuro: Speech clear, face symmetrical and CN II-XII grossly intact with no noted focal neuro deficits Psych: Alert and oriented to person, place, time, and situation. Appropriate and pleasant affect. Assessment and Plan of Care: Acute on chronic respiratory failure COPD/chronic bronchial asthma exacerbation Purulent tracheobronchitis -Following, discussed plan of care with bookie and pulmonary ENTRY LEVEL MARKETING ASSISTANT. They started patient on performance 1 mg inhalation twice daily and Perforomist 20 mcg inhaler twice daily in addition to current medication regimen. -Oxygenation to be administered and titrated as needed to maintain SPO2 equal to or greater than 92% -Telemetry monitoring. -Monitor pulse-oximetry -Duonebs scheduled 4 times daily and as needed for SOB and/or wheezing -Incentive Spirometry -Antibiotics: Continue Levaquin 750 mg every 48 hours -Obtain sputum culture and procalcitonin negative at 0.08. -Steroids: Solu-Medrol 60 mg IVP every 6 hours. Acute kidney injury -Lasix and Farxiga held and patient started on gentle IV fluid hydration with 0.9% normal saline at 75 cc/h. Will continue to monitor for improvement/resolution with repeat a.m. labs. -Patient denies urinary retention and/or frequency and's at this time. Will place order for as needed bladder scans. Subtherapeutic INR on arrival, now supratherapeutic Chronic systolic heart failure with previously known EF of 30 to 35% History of CAD status post stenting Chronic atrial fibrillation -Continue Coumadin, pharmacy to dose with goal therapeutic range of 2-3. -Continue cardiac medication regimen with atorvastatin 40 mg nightly, Plavix 75 mg daily, isosorbide mononitrate 30 mg daily, and metoprolol 12.5 mg twice daily. Lasix and Farxiga held secondary to HEENA. Data and imaging reviewed: Morning labs reviewed. CBC showing mild leukocytosis with WBC count of 14.97. Coagulation profile showing a supratherapeutic INR of 3.9. BMP showing acute kidney injury with BUN of 30.6, creatinine 1.6, GFR of 33. Blood glucose 147. Magnesium 2.3. Liver profile showing elevated AST of 49 otherwise stable. Vital signs reviewed. Blood pressure 146/79, heart rate 77, respiratory rate 16, temp 97.6 F, and SpO2 of 98% on 2 L per CODE STATUS: Full Code DVT prophylaxis: Coumadin Anticipated discharge date: Likely tomorrow morning, pending improvement. Anticipated discharge place: Home Patient was seen independently by Nurse Practitioner. This document was prepared using [employer] dictation software. Please allow for errors in nitroglycerin nitrator operator batch while rare they do occur. Rishi Hernandez NP rendered care for this patient independently, reviewed the findings and plan as documented in the note above. I did not physically speak with or examine the patient on this date. Objective - Vital Signs Vital signs: Vital Signs Temp 97.6 F 01/14/25 07:00 Pulse 76 01/14/25 08:20 Resp 16 01/14/25 07:00 BP 146/79 01/14/25 07:00 Pulse Ox 97 01/14/25 08:20 FiO2 Intake & Output 01/13/25 01/14/25 01/14/25 18:59 06:59 18:59 Other: # Voids 2 3 - Labs CBC & Chem 7: 01/14/25 05:22 01/14/25 05:22 Labs: Abnormal Lab Results - Last 24 Hours (Table) 01/13/25 01/13/25 01/13/25 Range/Units 04:45 04:45 09:22 WBC (4.50-10.00) X 10*3/uL RDW 16.5 H (11.5-14.5) % PT 20.4 H (10.0-12.5) sec INR 2.0 H (<1.2) Potassium 3.2 L (3.5-5.5) mmol/L Carbon Dioxide 21.1 L (21.6-31.8) mmol/L Anion Gap 15.90 H (4.00-12.00) mmol/L Est GFR (CKD-EPI) 42 L (>=60) Glucose 170 H (70-110) mg/dL AST 41 H (13-35) U/L 01/14/25 01/14/25 Range/Units 05:22 05:22 WBC 14.97 H (4.50-10.00) X 10*3/uL RDW 16.9 H (11.5-14.5) % PT 38.2 H (10.0-12.5) sec INR 3.9 H (<1.2) Potassium (3.5-5.5) mmol/L Carbon Dioxide (21.6-31.8) mmol/L Anion Gap (4.00-12.00) mmol/L Est GFR (CKD-EPI) (>=60) Glucose (70-110) mg/dL AST (13-35) U/L Microbiology - Last 24 Hours (Table) 01/12/25 16:55 Gram Stain - Preliminary Sputum
[2025-01-14] MEDS: SODIUM CHLORIDE 0.9% 1,000 ML IV SCH (12:03)
--- NOTE | 2025-01-14 12:54 | P.PN ---
Subjective Progress Note Date: 01/14/25 This is a 79-year-old female patient with a known history of mild intermittent chronic bronchial asthma, non-smoker, hyperlipidemia, coronary artery disease with stent placement, congestive heart failure, hypertension. She presented here to the emergency room yesterday after a 3 to 4-day history of increasing shortness of breath, cough and congestion. She was seen in the emergency room the day prior and was discharged home on antibiotics. Chest x-ray shows cardiomegaly without acute pulmonary process. White count 8.2. Hemoglobin 13.9. Platelets 220. INR 2.0. Sodium 139. Potassium 3.2. Bicarb 21. BUN 19. Creatinine 1.3. Glucose 170. Procalcitonin negative at 0.08. Viral screen negative. She is seen today in consultation on the regular medical floor. She is resting in bed. Awake and alert in no acute distress. She has a loose nonproductive cough. She is afebrile. Hemodynamically stable. Maintaining O2 saturations in the 90s on 2 L/min per nasal cannula. The patient is seen today January 14, 2025 in follow-up on the regular medical floor. She is currently resting in bed. Awake and alert in no acute distress. She is breathing a bit better than yesterday still not quite back to her baseline. Still dyspneic with minimal exertion. Dyspneic with conversation. She is maintaining O2 saturations in the upper 90s on 2 L/min per nasal cannula. She is afebrile. Hemodynamically stable. Procalcitonin was negative at 0.08. Her Levaquin will be discontinued. She is continued on DuoNeb inhalations, Pulmicort and performance inhalations, Solu-Medrol. Anticoagulated with warfarin. Sputum culture revealing no growth thus far. White count 14.9. Hemoglobin 13.4. Platelets 253. Sodium 139. Potassium 4.2. Bicarb 22. BUN 31. Creatinine 1.6. Glucose 147. Objective - Vital Signs Vital signs: Vital Signs Temp 97.6 F 01/14/25 07:00 Pulse 84 01/14/25 11:41 Resp 16 01/14/25 07:00 BP 146/79 01/14/25 07:00 Pulse Ox 97 01/14/25 08:20 FiO2 Intake & Output 01/13/25 01/14/25 01/14/25 18:59 06:59 18:59 Intake Total 240 Balance 240 Intake: Oral 240 Other: # Voids 2 3 1 - Exam GENERAL EXAM: Alert, 79-year-old female, resting in bed, on 2 L nasal cannula, fairly comfortable in no apparent distress. HEAD: Normocephalic. EYES: Normal reaction of pupils, equal size. NOSE: Clear with pink turbinates. THROAT: No erythema or exudates. NECK: No masses, no JVD. CHEST: No chest wall deformity. LUNGS: Equal air entry with bilateral end expiratory wheeze. CVS: S1 and S2 normal with no audible murmur, regular rhythm. ABDOMEN: No hepatosplenomegaly, normal bowel sounds, no guarding or rigidity. SPINE: No scoliosis or deformity SKIN: No rashes CENTRAL NERVOUS SYSTEM: No focal deficits, tone is normal in all 4 extremities. EXTREMITIES: There is no peripheral edema. No clubbing, no cyanosis. Peripher al pulses are intact. - Labs CBC & Chem 7: 01/14/25 05:22 01/14/25 05:22 Labs: Abnormal Lab Results - Last 24 Hours (Table) 01/14/25 01/14/25 01/14/25 Range/Units 05:22 05:22 05:22 WBC 14.97 H (4.50-10.00) X 10*3/uL RDW 16.9 H (11.5-14.5) % PT 38.2 H (10.0-12.5) sec INR 3.9 H (<1.2) Anion Gap 13.20 H (4.00-12.00) mmol/L BUN 30.6 H (9.0-27.0) mg/dL Creatinine 1.6 H (0.6-1.5) mg/dL Est GFR (CKD-EPI) 33 L (>=60) Glucose 147 H (70-110) mg/dL AST 49 H (13-35) U/L Microbiology - Last 24 Hours (Table) 01/12/25 16:55 Gram Stain - Preliminary Sputum Sputum Culture - Preliminary Assessment and Plan Assessment: Acute hypoxemic respiratory failure secondary to an acute exacerbation of mild intermittent chronic bronchial asthma complicated by purulent tracheobronchitis. Chest x-ray shows no acute process. Procalcitonin negative. Viral screen negative History of mild intermittent chronic bronchial asthma Non-smoker History of systolic congestive heart failure Chronic kidney disease stage IIIb Chronic atrial fibrillation anticoagulated with warfarin Chronic systolic heart failure with an ejection fraction of 30 to 35% Coronary disease with previous stenting to the LAD x 2 in 2023 Anemia of chronic disease Hypertension Hyperlipidemia Rheumatoid arthritis History of CVA Previous history of melanoma of the face, resected Diverticulosis Plan: The patient was seen and evaluated Labs and medications reviewed Procalcitonin negative Discontinue Levaquin Continue DuoNeb inhalations Continue Pulmicort and Perforomist inhalations Continue Solu-Medrol Protonix for GI prophylaxis Remains on warfarin, INR therapeutic Titrate down/off the FiO2 as tolerated Increase her activity as tolerated This patient was seen independently by the pulmonary nurse practitioner addressing pulmonary issues I have personally seen and examined the patient, performed the documentation and the assessment and plan as written. Number of minutes spent on the visit: 24 Dictation was produced using [employer] dictation software. Please excuse any grammatical, word or spelling errors.
[2025-01-14] MEDS: WARFARIN 0.5 MG TAB PO ONE (18:07)
[2025-01-14] MEDS ORDERED: MELATONIN 3 MG TABLET PO SCH (21:00)
[2025-01-15 08:20] LABS: HCT 40.4 % (37.2-46.3); HGB 13.1 g/dL (12.0-15.0); MCH 30.4 pg (27.0-32.0); MCHC 32.4 g/dL (32.0-37.0); MCV 93.7 FL (80.0-97.0); Mean Platelet Volume 10.1 FL (9.5-12.2); NRBC Per 100 WBC 0 X 10*3/uL (0.00-0.01); Platelet Count 235 X 10*3/uL (140-440); RBC 4.31 X 10*6/uL (4.10-5.20); RDW 17.1 % (11.5-14.5)
[2025-01-15 08:49] LABS: BUN/Creat Ratio 24.33 Ratio (12.00-20.00); Blood Urea Nitrogen 36.5 mg/dL (9.0-27.0); Calcium 9.2 mg/dL (8.7-10.3); Carbon Dioxide 20.2 mmol/L (21.6-31.8); Chloride 104 mmol/L (96-109); Glucose 154 mg/dL (70-110); Magnesium 2.1 mg/dL (1.5-2.4); Potassium 3.8 mmol/L (3.5-5.5); Sodium 137 mmol/L (135-145)
[2025-01-15 10:54] LABS: Prothrombin Time 60.3 sec (10.0-12.5)
--- NOTE | 2025-01-15 11:18 | P.PN ---
Subjective Progress Note Date: 01/15/25 This is a 79-year-old female patient with a known history of mild intermittent chronic bronchial asthma, non-smoker, hyperlipidemia, coronary artery disease with stent placement, congestive heart failure, hypertension. She presented here to the emergency room yesterday after a 3 to 4-day history of increasing shortness of breath, cough and congestion. She was seen in the emergency room the day prior and was discharged home on antibiotics. Chest x-ray shows cardiomegaly without acute pulmonary process. White count 8.2. Hemoglobin 13.9. Platelets 220. INR 2.0. Sodium 139. Potassium 3.2. Bicarb 21. BUN 19. Creatinine 1.3. Glucose 170. Procalcitonin negative at 0.08. Viral screen negative. She is seen today in consultation on the regular medical floor. She is resting in bed. Awake and alert in no acute distress. She has a loose nonproductive cough. She is afebrile. Hemodynamically stable. Maintaining O2 saturations in the 90s on 2 L/min per nasal cannula. The patient is seen today January 14, 2025 in follow-up on the regular medical floor. She is currently resting in bed. Awake and alert in no acute distress. She is breathing a bit better than yesterday still not quite back to her baseline. Still dyspneic with minimal exertion. Dyspneic with conversation. She is maintaining O2 saturations in the upper 90s on 2 L/min per nasal cannula. She is afebrile. Hemodynamically stable. Procalcitonin was negative at 0.08. Her Levaquin will be discontinued. She is continued on DuoNeb inhalations, Pulmicort and performance inhalations, Solu-Medrol. Anticoagulated with warfarin. Sputum culture revealing no growth thus far. White count 14.9. Hemoglobin 13.4. Platelets 253. Sodium 139. Potassium 4.2. Bicarb 22. BUN 31. Creatinine 1.6. Glucose 147. The patient is seen today January 15, 2025 in follow-up on the regular medical floor. She is awake and alert in no acute distress. She is sitting up in bed. She is feeling better today compared to yesterday. Still with some dry nonproductive cough. No fever or chills. Maintaining good O2 saturations in the 90s on 2 L/min per nasal cannula. She has been afebrile. Hemodynamically stable. Sputum culture revealed no growth. White count 11.8. Hemoglobin 13.1. Platelets 235. Sodium 137. Potassium 3.8. Bicarb 20. BUN 37. Creatinine 1.5. Glucose 154. She remains on DuoNeb inhalations, Pulmicort and Perforomist inhalations, Solu-Medrol. She is continued on Mucinex and Tessalon Perles. W arfarin for anticoagulation. Remains on Protonix. Objective - Vital Signs Vital signs: Vital Signs Temp 97.9 F 01/15/25 07:15 Pulse 88 01/15/25 08:21 Resp 18 01/15/25 07:15 BP 139/70 01/15/25 07:15 Pulse Ox 97 01/15/25 07:43 FiO2 Intake & Output 01/14/25 01/15/25 01/15/25 18:59 06:59 18:59 Intake Total 240 240 Balance 240 240 Intake: Oral 240 240 Other: # Voids 1 1 - Exam GENERAL EXAM: Alert, pleasant, weak 79-year-old female, resting in bed, on 2 L nasal cannula, in no apparent distress. HEAD: Normocephalic. EYES: Normal reaction of pupils, equal size. NOSE: Clear with pink turbinates. THROAT: No erythema or exudates. NECK: No masses, no JVD. CHEST: No chest wall deformity. LUNGS: Equal air entry with bilateral end expiratory wheeze. CVS: S1 and S2 normal with no audible murmur, regular rhythm. ABDOMEN: No hepatosplenomegaly, normal bowel sounds, no guarding or rigidity. SPINE: No scoliosis or deformity SKIN: No rashes CENTRAL NERVOUS SYSTEM: No focal deficits, tone is normal in all 4 extremities. EXTREMITIES: There is no peripheral edema. No clubbing, no cyanosis. Peripheral pulses are intact. - Labs CBC & Chem 7: 01/15/25 05:32 01/15/25 05:32 Labs: Abnormal Lab Results - Last 24 Hours (Table) 01/15/25 01/15/25 Range/Units 05:32 05:32 WBC 11.80 H (4.50-10.00) X 10*3/uL RDW 17.1 H (11.5-14.5) % Carbon Dioxide 20.2 L (21.6-31.8) mmol/L Anion Gap 12.80 H (4.00-12.00) mmol/L BUN 36.5 H (9.0-27.0) mg/dL Est GFR (CKD-EPI) 35 L (>=60) BUN/Creatinine Ratio 24.33 H (12.00-20.00) Ratio Glucose 154 H (70-110) mg/dL Microbiology - Last 24 Hours (Table) 01/12/25 16:55 Gram Stain - Final Sputum Sputum Culture - Final Assessment and Plan Assessment: Acute hypoxemic respiratory failure secondary to an acute exacerbation of mild intermittent chronic bronchial asthma complicated by purulent tracheobronchitis. Chest x-ray shows no acute process. Procalcitonin negative. Viral screen negative History of mild intermittent chronic bronchial asthma Non-smoker History of systolic congestive heart failure Chronic kidney disease stage IIIb Chronic atrial fibrillation anticoagulated with warfarin Chronic systolic heart failure with an ejection fraction of 30 to 35% Coronary disease with previous stenting to the LAD x 2 in 2023 Anemia of chronic disease Hypertension Hyperlipidemia Rheumatoid arthritis History of CVA Previous history of melanoma of the face, resected Diverticulosis Plan: The patient was seen and evaluated Labs and medications reviewed Continue DuoNeb inhalations Continue Pulmicort and Perforomist Continue Solu-Medrol Protonix for GI prophylaxis Anticoagulated with warfarin Titrate down/off the FiO2 as tolerated Increase her activity as tolerated Probable discharge in the a.m. This patient was seen independently by the pulmonary nurse practitioner addressing pulmonary issues I have personally seen and examined the patient, performed the documentation and the assessment and plan as written. Number of minutes spent on the visit: 23 Dictation was produced using [employer] dictation software. Please excuse any grammatical, word or spelling errors.
[2025-01-15 11:20] LABS: INR 6.1 (<1.2)
--- NOTE | 2025-01-15 16:26 | P.PN ---
Subjective Progress Note Date: 01/15/25 Hospital course: Patient is a very pleasant 79-year-old female with a past medical history of CAD status post recent stenting, chronic persistent atrial fibrillation on anticoagulation with Coumadin, chronic systolic heart failure with previously known EF of 30 to 35%, hypertension, COPD with chronic hypoxic respiratory failure home oxygen dependent on 2 L at all times, and stage IIIb chronic kidney disease. She follows with Service Inspector. Dr. Bajwa and PCP Dr. Mcneal. She presented to the hospital with a chief complaint of shortness of breath. Patient reports symptoms began approximately 4 days ago with reports of generalized bodyaches/pain, fatigue, decreased appetite, diaphoresis, increasing shortness of breath, and coarse cough productive of white sputum. Patient denies having any known fevers, chills, headache, lightheadedness, dizziness, ch est pain or palpitations, nausea, vomiting, abdominal pain, or experiencing any numbness/tingling/weakness/swelling in her extremities. Upon arrival to our facility, patient underwent evaluation in the emergency department. Vital signs upon arrival show blood pressure 131/74, heart rate 90, respiratory rate 20, temp 97.6 F, and SpO2 of 96% on room air. Patient placed on her baseline 2 L home O2 with SpO2 increasing to 97%. EKG completed showing atrial fibrillation with mild RVR to 106 bpm. Chest x-ray showing cardiomegaly negative for acute cardiopulmonary process showing no suspicious or new focal airspace opacities. Labs completed and reviewed. CBC unremarkable. Coagulation profile showing slightly subtherapeutic INR of 1.9. BMP unremarkable. Blood glucose 99. Lactic acid 1.6. Liver profile showing elevated total bili of 1.8 and AST of 50. Pro-BNP 5300. Influenza A, influenza B, RSV, and COVID PCR negative. Patient admitted under services with consultation to pulmonology Physical exam: Patient seen and fully evaluated at bedside this morning. She reports continued shortness of breath significantly worsens with exertion accompanied by continued coarse coughing fits. Patient reports feeling increased tightness today co mpared to yesterday with her breathing. She continues to be very bronchospastic. She denies any other complaints. Patient educated about her elevated INR and need to call for assistance prior to getting out of bed to prevent falls. Patient verbalized understanding. She denies any other complain ts, questions, needs, or concerns at this time. Vital signs reviewed and stable. General: Nontoxic, no distress and appears stated age. Derm: Skin warm and dry, normal coloration for ethnicity. Head: Atraumatic, normocephalic and symmetric. Eyes: EOMs intact, no lid lag, and anicteric sclera Mouth: no lip lesions, mucus membranes moist Cardiovascular: Irregularly irregular, systolic murmur, positive posterior tibial pulses bilaterally, and cap refill < 2 seconds. Lungs: Respirations even, regular, and unlabored on 2L.. Lungs diminished with diffuse expiratory wheezes throughout and continued coarse cough noted. No rhonchi, rales, or crackles noted Abdominal: soft, nontender to palpation, no guarding, no appreciable organomegaly Ext: ROM intact. No gross muscle atrophy, no edema, no contractures Neuro: Speech clear, face symmetrical and CN II-XII grossly intact with no noted focal neuro deficits Psych: Alert and oriented to person, place, time, and situation. Appropriate and pleasant affect. Assessment and Plan of Care: Acute on chronic respiratory failure COPD/chronic bronchial asthma exacerbation Purulent tracheobronchitis -Following, discussed plan of care with director digital strategy and pulmonary VOICE TEACHER. They started patient on performance 1 mg inhalation twice daily and Perforomist 20 mcg inhaler twice daily in addition to current medication regimen. -Oxygenation to be administered and titrated as needed to maintain SPO2 equal to or greater than 92% -Telemetry monitoring. -Monitor pulse-oximetry -Duonebs scheduled 4 times daily and as needed for SOB and/or wheezing -Incentive Spirometry -Antibiotics: Continue Levaquin 750 mg every 48 hours -Obtain sputum culture and procalcitonin negative at 0.08. -Steroids: Solu-Medrol 60 mg IVP every 6 hours. Acute kidney injury -Lasix and Farxiga held and patient started on gentle IV fluid hydration with 0.9% normal saline at 75 cc/h. Will continue to monitor for improvement/resolution with repeat a.m. labs. -Patient denies urinary retention and/or frequency and's at this time. Continue as needed bladder scans to monitor for postvoid residual/retention. Subtherapeutic INR on arrival, now supratherapeutic at 6.1 Chronic systolic heart failure with previously known EF of 30 to 35% History of CAD status post stenting Chronic atrial fibrillation -Hold Coumadin and once therapeutic INR may resume Coumadin, pharmacy to dose with goal therapeutic range of 2-3. Patient denies any noted bleeding or bruising. -Discussed in great detail with RN at bedside patient on strict fall precautions and up with assistance only secondary to elevated INR and risk for bleed if injury occurs. -Continue cardiac medication regimen with atorvastatin 40 mg nightly, Plavix 75 mg daily, isosorbide mononitrate 30 mg daily, and metoprolol 12.5 mg twice daily. Lasix and Farxiga held secondary to HEENA. Data and imaging reviewed: Morning labs reviewed. CBC showing mild leukocytosis with WBC count of 11.80. BMP showing hypocarbia with bicarb of 20.2 and slightly elevated anion gap of 12.80 with continued elevated but improving renal function with BUN of 36.5, creatinine 1.5, and GFR of 35. Blood glucose 154. Magnesium 2.1. Vital signs reviewed. Blood pressure 139/70, heart rate 58, respiratory rate 18, temp 97.9 F, and SpO2 of 98% on 2 L. CODE STATUS: Full Code DVT prophylaxis: Coumadin Anticipated discharge date: Likely tomorrow morning, pending improvement. Anticipated discharge place: Home Patient was seen independently by Nurse Practitioner. This document was prepared using [employer] dictation software. Please allow for errors in block and case maker while rare they do occur. Rishi Hernandez NP rendered care for this patient independently, reviewed the findings and plan as documented in the note above. I did not physically speak with or examine the patient on this date. Objective - Vital Signs Vital signs: Vital Signs Temp 97.9 F 01/15/25 07:15 Pulse 88 01/15/25 08:21 Resp 18 01/15/25 07:15 BP 139/70 01/15/25 07:15 Pulse Ox 97 01/15/25 07:43 FiO2 Intake & Output 01/14/25 01/15/25 01/15/25 18:59 06:59 18:59 Intake Total 240 Balance 240 Intake: Oral 240 Other: # Voids 1 1 - Labs CBC & Chem 7: 01/15/25 05:32 01/15/25 05:32 Labs: Abnormal Lab Results - Last 24 Hours (Table) 01/15/25 01/15/25 Range/Units 05:32 05:32 WBC 11.80 H (4.50-10.00) X 10*3/uL RDW 17.1 H (11.5-14.5) % Carbon Dioxide 20.2 L (21.6-31.8) mmol/L Anion Gap 12.80 H (4.00-12.00) mmol/L BUN 36.5 H (9.0-27.0) mg/dL Est GFR (CKD-EPI) 35 L (>=60) BUN/Creatinine Ratio 24.33 H (12.00-20.00) Ratio Glucose 154 H (70-110) mg/dL Microbiology - Last 24 Hours (Table) 01/12/25 16:55 Gram Stain - Final Sputum Sputum Culture - Final
[2025-01-15] MEDS: WARFARIN 0.5 MG TAB PO ONE (17:46)
[2025-01-16 04:46] LABS: Prothrombin Time 52.1 sec (10.0-12.5)
[2025-01-16 04:51] LABS: INR 5.3 (<1.2)
[2025-01-16 08:41] LABS: BUN/Creat Ratio 22.87 Ratio (12.00-20.00); Blood Urea Nitrogen 34.3 mg/dL (9.0-27.0); Calcium 9.3 mg/dL (8.7-10.3); Chloride 106 mmol/L (96-109); Glucose 148 mg/dL (70-110); Magnesium 2.3 mg/dL (1.5-2.4); Potassium 3.7 mmol/L (3.5-5.5); Sodium 140 mmol/L (135-145)
[2025-01-16 09:22] LABS: HCT 39.8 % (37.2-46.3); HGB 12.9 g/dL (12.0-15.0); MCH 30.5 pg (27.0-32.0); MCHC 32.4 g/dL (32.0-37.0); MCV 94.1 FL (80.0-97.0); Mean Platelet Volume 9.9 FL (9.5-12.2); NRBC Per 100 WBC 0 X 10*3/uL (0.00-0.01); Platelet Count 254 X 10*3/uL (140-440); RBC 4.23 X 10*6/uL (4.10-5.20); RDW 17.3 % (11.5-14.5); WBC 11.53 X 10*3/uL (4.50-10.00)
[2025-01-16] MEDS: SYMBICORT 160-4.5 MCG INHALER INHALATION SCH (09:42)
--- NOTE | 2025-01-16 11:17 | P.PN ---
Subjective Progress Note Date: 01/16/25 This is a 79-year-old female patient with a known history of mild intermittent chronic bronchial asthma, non-smoker, hyperlipidemia, coronary artery disease with stent placement, congestive heart failure, hypertension. She presented here to the emergency room yesterday after a 3 to 4-day history of increasing shortness of breath, cough and congestion. She was seen in the emergency room the day prior and was discharged home on antibiotics. Chest x-ray shows cardiomegaly without acute pulmonary process. White count 8.2. Hemoglobin 13.9. Platelets 220. INR 2.0. Sodium 139. Potassium 3.2. Bicarb 21. BUN 19. Creatinine 1.3. Glucose 170. Procalcitonin negative at 0.08. Viral screen negative. She is seen today in consultation on the regular medical floor. She is resting in bed. Awake and alert in no acute distress. She has a loose nonproductive cough. She is afebrile. Hemodynamically stable. Maintaining O2 saturations in the 90s on 2 L/min per nasal cannula. The patient is seen today January 14, 2025 in follow-up on the regular medical floor. She is currently resting in bed. Awake and alert in no acute distress. She is breathing a bit better than yesterday still not quite back to her baseline. Still dyspneic with minimal exertion. Dyspneic with conversation. She is maintaining O2 saturations in the upper 90s on 2 L/min per nasal cannula. She is afebrile. Hemodynamically stable. Procalcitonin was negative at 0.08. Her Levaquin will be discontinued. She is continued on DuoNeb inhalations, Pulmicort and performance inhalations, Solu-Medrol. Anticoagulated with warfarin. Sputum culture revealing no growth thus far. White count 14.9. Hemoglobin 13.4. Platelets 253. Sodium 139. Potassium 4.2. Bicarb 22. BUN 31. Creatinine 1.6. Glucose 147. The patient is seen today January 15, 2025 in follow-up on the regular medical floor. She is awake and alert in no acute distress. She is sitting up in bed. She is feeling better today compared to yesterday. Still with some dry nonproductive cough. No fever or chills. Maintaining good O2 saturations in the 90s on 2 L/min per nasal cannula. She has been afebrile. Hemodynamically stable. Sputum culture revealed no growth. White count 11.8. Hemoglobin 13.1. Platelets 235. Sodium 137. Potassium 3.8. Bicarb 20. BUN 37. Creatinine 1.5. Glucose 154. She remains on DuoNeb inhalations, Pulmicort and Perforomist inhalations, Solu-Medrol. She is continued on Mucinex and Tessalon Perles. W arfarin for anticoagulation. Remains on Protonix. The patient is seen today January 16, 2025 in follow-up on the regular medical floor. She is awake and alert in no acute distress. Resting comfortably in bed. Feeling better today compared to yesterday. She is maintaining O2 saturations in the 90s on 2 L/min per nasal cannula. She is afebrile. Hemodynamically stable. Still with a loose congested cough. Still feeling a bit weak. She is continued on DuoNeb inhlations, Pulmicort and Perforomist inhalations, IV Solu-Medrol. She is anticoagulated with warfarin. INR supratherapeutic today at 5.3. White count 11.5. Hemoglobin 12.9. Platelets 254. Sodium 140. Potassium 3.7. Bicarb 21. BUN 34. Creatinine 1.5. Glucose 148. Objective - Vital Signs Vital signs: Vital Signs Temp 97.8 F 01/16/25 07:00 Pulse 100 01/16/25 09:54 Resp 16 01/16/25 07:00 BP 145/79 01/16/25 07:00 Pulse Ox 95 01/16/25 07:00 FiO2 Intake & Output 01/15/25 01/16/25 01/16/25 18:59 06:59 18:59 Intake Total 598 222 Balance 598 222 Intake: Oral 598 222 Other: Voiding Method Toilet Bedside Commode Bedside Commode # Voids 4 2 - Exam GENERAL EXAM: Alert, weak 79-year-old female, on 2 L nasal cannula, in no apparent distress. HEAD: Normocephalic. EYES: Normal reaction of pupils, equal size. NOSE: Clear with pink turbinates. THROAT: No erythema or exudates. NECK: No masses, no JVD. CHEST: No chest wall deformity. LUNGS: Equal air entry with bilateral end expiratory wheeze. CVS: S1 and S2 normal with no audible murmur, regular rhythm. ABDOMEN: No hepatosplenomegaly, normal bowel sounds, no guarding or rigidity. SPINE: No scoliosis or deformity SKIN: No rashes CENTRAL NERVOUS SYSTEM: No focal deficits, tone is normal in all 4 extremities. EXTREMITIES: There is no peripheral edema. No clubbing, no cyanosis. Peripheral pulses are intact. - Labs CBC & Chem 7: 01/16/25 03:56 01/16/25 03:56 Labs: Abnormal Lab Results - Last 24 Hours (Table) 01/15/25 01/16/25 01/16/25 Range/Units 10:09 03:56 03:56 WBC 11.53 H (4.50-10.00) X 10*3/uL RDW 17.3 H (11.5-14.5) % PT 60.3 H 52.1 H (10.0-12.5) sec INR 6.1 H* 5.3 H* (<1.2) Carbon Dioxide (21.6-31.8) mmol/L Anion Gap (4.00-12.00) mmol/L BUN (9.0-27.0) mg/dL Est GFR (CKD-EPI) (>=60) BUN/Creatinine Ratio (12.00-20.00) Ratio Glucose (70-110) mg/dL 01/16/25 Range/Units 03:56 WBC (4.50-10.00) X 10*3/uL RDW (11.5-14.5) % PT (10.0-12.5) sec INR (<1.2) Carbon Dioxide 21.0 L (21.6-31.8) mmol/L Anion Gap 13.00 H (4.00-12.00) mmol/L BUN 34.3 H (9.0-27.0) mg/dL Est GFR (CKD-EPI) 35 L (>=60) BUN/Creatinine Ratio 22.87 H (12.00-20.00) Ratio Glucose 148 H (70-110) mg/dL Microbiology - Last 24 Hours (Table) 01/12/25 16:55 Gram Stain - Final Sputum Sputum Culture - Final Assessment and Plan Assessment: Acute hypoxemic respiratory failure secondary to an acute exacerbation of mild intermittent chronic bronchial asthma complicated by purulent tracheobronchitis. Chest x-ray shows no acute process. Procalcitonin negative. Viral screen negative History of mild intermittent chronic bronchial asthma Non-smoker History of systolic congestive heart failure Chronic kidney disease stage IIIb Chronic atrial fibrillation anticoagulated with warfarin Chronic systolic heart failure with an ejection fraction of 30 to 35% Coronary disease with previous stenting to the LAD x 2 in 2023 Anemia of chronic disease Hypertension Hyperlipidemia Rheumatoid arthritis History of CVA Previous history of melanoma of the face, resected Diverticulosis Plan: The patient was seen and evaluated Labs and medications reviewed Titrate down the FiO2 as tolerated Continue DuoNeb inhalations Discontinue Pulmicort and Perforomist Add Symbicort Continue Solu-Medrol Protonix for GI prophylaxis Anticoagulated with warfarin Increase her activity as tolerated Not quite ready for discharge today This patient was seen independently by the pulmonary nurse practitioner addressing pulmonary issues I have personally seen and examined the patient, performed the documentation and the assessment and plan as written. Number of minutes spent on the visit: 24 Dictation was produced using [employer] dictation software. Please excuse any grammatical, word or spelling errors.
--- NOTE | 2025-01-16 15:43 | P.PN ---
Subjective Progress Note Date: 01/16/25 Hospital course: Patient is a very pleasant 79-year-old female with a past medical history of CAD status post recent stenting, chronic persistent atrial fibrillation on anticoagulation with Coumadin, chronic systolic heart failure with previously known EF of 30 to 35%, hypertension, COPD with chronic hypoxic respiratory failure home oxygen dependent on 2 L at all times, and stage IIIb chronic kidney disease. She follows with [employer]. Dr. Bajwa and PCP Dr. Mcneal. She presented to the hospital with a chief complaint of shortness of breath. Patient reports symptoms began approximately 4 days ago with reports of generalized bodyaches/pain, fatigue, decreased appetite, diaphoresis, increasing shortness of breath, and coarse cough productive of white sputum. Patient denies having any known fevers, chills, headache, lightheadedness, dizziness, ch est pain or palpitations, nausea, vomiting, abdominal pain, or experiencing any numbness/tingling/weakness/swelling in her extremities. Upon arrival to our facility, patient underwent evaluation in the emergency department. Vital signs upon arrival show blood pressure 131/74, heart rate 90, respiratory rate 20, temp 97.6 F, and SpO2 of 96% on room air. Patient placed on her baseline 2 L home O2 with SpO2 increasing to 97%. EKG completed showing atrial fibrillation with mild RVR to 106 bpm. Chest x-ray showing cardiomegaly negative for acute cardiopulmonary process showing no suspicious or new focal airspace opacities. Labs completed and reviewed. CBC unremarkable. Coagulation profile showing slightly subtherapeutic INR of 1.9. BMP unremarkable. Blood glucose 99. Lactic acid 1.6. Liver profile showing elevated total bili of 1.8 and AST of 50. Pro-BNP 5300. Influenza A, influenza B, RSV, and COVID PCR negative. Patient admitted under services with consultation to pulmonology Physical exam: Patient seen and fully evaluated at bedside this morning. She reports continued shortness of breath. Patient states she just cannot seem to bring up any sputum. Encourage patient to increase oral hydration with water and order placed for flutter valve. Vital signs reviewed and stable. General: Nontoxic, no distress and appears stated age. Derm: Skin warm and dry, normal coloration for ethnicity. Head: Atraumatic, normocephalic and symmetric. Eyes: EOMs intact, no lid lag, and anicteric sclera Mouth: no lip lesions, mucus membranes moist Cardiovascular: Irregularly irregular, systolic murmur, positive posterior tibial pulses bilaterally, and cap refill < 2 seconds. Lungs: Respirations even, regular, and unlabored on 2L.. Lungs diminished with diffuse expiratory wheezes throughout and continued coarse cough noted. No rhonchi, rales, or crackles noted Abdominal: soft, nontender to palpation, no guarding, no appreciable organomegaly Ext: ROM intact. No gross muscle atrophy, no edema, no contractures Neuro: Speech clear, face symmetrical and CN II-XII grossly intact with no noted focal neuro deficits Psych: Alert and oriented to person, place, time, and situation. Appropriate and pleasant affect. Assessment and Plan of Care: Acute on chronic respiratory failure COPD/chronic bronchial asthma exacerbation Purulent tracheobronchitis -[employer] following, reviewed documentation in chart. started patient on performance 1 mg inhalation twice daily and Perforomist 20 mcg inhaler twice daily in addition to current medication regimen. -Oxygenation to be administered and titrated as needed to maintain SPO2 equal to or greater than 92% -Telemetry monitoring. -Monitor pulse-oximetry -Duonebs scheduled 4 times daily and as needed for SOB and/or wheezing -Incentive Spirometry and flutter valve -Procalcitonin negative at 0.08, Levaquin was discontinued. -Steroids: Solu-Medrol 60 mg IVP every 6 hours. Subtherapeutic INR on arrival, now supratherapeutic at 6.1 Chronic systolic heart failure with previously known EF of 30 to 35% History of CAD status post stenting Chronic atrial fibrillation -Hold Coumadin and once therapeutic INR may resume Coumadin, pharmacy to dose with goal therapeutic range of 2-3. Patient denies any noted bleeding or bruising. Maintain fall precautions. -Continue cardiac medication regimen with atorvastatin 40 mg nightly, Lasix 40 mg daily, Farxiga 10 mg daily, Plavix 75 mg daily, isosorbide mononitrate 30 mg daily, and metoprolol 12.5 mg twice daily. Data and imaging reviewed: Morning labs reviewed. CBC showing mild leukocytosis with WBC count of 11.53, coagulation profile showing elevated PT of 52.1 and INR of 5.3. BMP showing bicarb of 21, anion gap of 13, BUN of 34.3, creatinine of 1.5, GFR of 35. Blood glucose 148. Magnesium 2.3. Vital signs reviewed. Blood pressure 145/79, heart rate 83, respiratory rate 16, temp 97.8 F, and SpO2 of 95% on 2 L. CODE STATUS: Full Code DVT prophylaxis: Coumadin Anticipated discharge date: Likely tomorrow morning, pending improvement of INR Anticipated discharge place: Home Patient was seen independently by Nurse Practitioner. This document was prepared using [employer] dictation software. Please allow for errors in sponsorship coordinator while rare they do occur. Rishi Hernandez NP rendered care for this patient independently, reviewed the findings and plan as documented in the note above. I did not physically speak with or examine the patient on this date. Objective - Vital Signs Vital signs: Vital Signs Temp 97.8 F 01/16/25 07:00 Pulse 97 01/16/25 09:43 Resp 16 01/16/25 07:00 BP 145/79 01/16/25 07:00 Pulse Ox 95 01/16/25 07:00 FiO2 Intake & Output 01/15/25 01/16/25 01/16/25 18:59 06:59 18:59 Intake Total 598 222 Balance 598 222 Intake: Oral 598 222 Other: Voiding Method Toilet Bedside Commode Bedside Commode # Voids 4 2 - Labs CBC & Chem 7: 01/16/25 03:56 01/16/25 03:56 Labs: Abnormal Lab Results - Last 24 Hours (Table) 01/15/25 01/16/25 01/16/25 Range/Units 10:09 03:56 03:56 WBC 11.53 H (4.50-10.00) X 10*3/uL RDW 17.3 H (11.5-14.5) % PT 60.3 H 52.1 H (10.0-12.5) sec INR 6.1 H* 5.3 H* (<1.2) Carbon Dioxide (21.6-31.8) mmol/L Anion Gap (4.00-12.00) mmol/L BUN (9.0-27.0) mg/dL Est GFR (CKD-EPI) (>=60) BUN/Creatinine Ratio (12.00-20.00) Ratio Glucose (70-110) mg/dL 01/16/25 Range/Units 03:56 WBC (4.50-10.00) X 10*3/uL RDW (11.5-14.5) % PT (10.0-12.5) sec INR (<1.2) Carbon Dioxide 21.0 L (21.6-31.8) mmol/L Anion Gap 13.00 H (4.00-12.00) mmol/L BUN 34.3 H (9.0-27.0) mg/dL Est GFR (CKD-EPI) 35 L (>=60) BUN/Creatinine Ratio 22.87 H (12.00-20.00) Ratio Glucose 148 H (70-110) mg/dL Microbiology - Last 24 Hours (Table) 01/12/25 16:55 Gram Stain - Final Sputum Sputum Culture - Final
[2025-01-16] MEDS: WARFARIN 0.5 MG TAB PO ONE (17:21)
[2025-01-17 06:42] LABS: INR 3.2 (<1.2); Prothrombin Time 31.8 sec (10.0-12.5)
[2025-01-17 08:35] LABS: Magnesium 2.2 mg/dL (1.5-2.4)
[2025-01-17 08:40] LABS: HCT 38.5 % (37.2-46.3); HGB 12.9 g/dL (12.0-15.0); MCH 30.6 pg (27.0-32.0); MCHC 33.5 g/dL (32.0-37.0); MCV 91.2 FL (80.0-97.0); Mean Platelet Volume 10.3 FL (9.5-12.2); NRBC Per 100 WBC 0.02 X 10*3/uL (0.00-0.01); Platelet Count 251 X 10*3/uL (140-440); RBC 4.22 X 10*6/uL (4.10-5.20); RDW 17.2 % (11.5-14.5); WBC 11.15 X 10*3/uL (4.50-10.00)
[2025-01-17 08:41] LABS: ALT 54 U/L (8-44); AST 38 U/L (13-35); Albumin 3.9 g/dL (3.8-4.9); Albumin/Globulin Ratio 1.77 Ratio (1.60-3.17); Alkaline Phosphatase 68 U/L (41-126); BUN/Creat Ratio 24.69 Ratio (12.00-20.00); Blood Urea Nitrogen 32.1 mg/dL (9.0-27.0); Calcium 9.4 mg/dL (8.7-10.3); Carbon Dioxide 23.4 mmol/L (21.6-31.8); Chloride 104 mmol/L (96-109); Globulin 2.2 g/dL (1.6-3.3); Glucose 134 mg/dL (70-110); Potassium 4.1 mmol/L (3.5-5.5); Sodium 138 mmol/L (135-145); Total Bilirubin 0.3 mg/dL (0.3-1.2); Total Protein 6.1 g/dL (6.2-8.2)
[2025-01-17] MEDS: DAPAGLIFLOZIN PROPANEDIOL 10 MG TABLET PO SCH (08:45)
[2025-01-17] MEDS: FUROSEMIDE 40 MG TAB PO SCH (08:45)
[2025-01-17] MEDS: BUDESONIDE 1 MG/2 ML NEBU INHALATION SCH (08:52)
[2025-01-17] MEDS: FORMOTEROL FUMARATE 20 MCG/2 ML NEBU INHALATION SCH (08:52)
--- NOTE | 2025-01-17 12:54 | P.PN ---
Subjective Progress Note Date: 01/17/25 This is a 79-year-old female patient with a known history of mild intermittent chronic bronchial asthma, non-smoker, hyperlipidemia, coronary artery disease with stent placement, congestive heart failure, hypertension. She presented here to the emergency room yesterday after a 3 to 4-day history of increasing shortness of breath, cough and congestion. She was seen in the emergency room the day prior and was discharged home on antibiotics. Chest x-ray shows cardiomegaly without acute pulmonary process. White count 8.2. Hemoglobin 13.9. Platelets 220. INR 2.0. Sodium 139. Potassium 3.2. Bicarb 21. BUN 19. Creatinine 1.3. Glucose 170. Procalcitonin negative at 0.08. Viral screen negative. She is seen today in consultation on the regular medical floor. She is resting in bed. Awake and alert in no acute distress. She has a loose nonproductive cough. She is afebrile. Hemodynamically stable. Maintaining O2 saturations in the 90s on 2 L/min per nasal cannula. The patient is seen today January 14, 2025 in follow-up on the regular medical floor. She is currently resting in bed. Awake and alert in no acute distress. She is breathing a bit better than yesterday still not quite back to her baseline. Still dyspneic with minimal exertion. Dyspneic with conversation. She is maintaining O2 saturations in the upper 90s on 2 L/min per nasal cannula. She is afebrile. Hemodynamically stable. Procalcitonin was negative at 0.08. Her Levaquin will be discontinued. She is continued on DuoNeb inhalations, Pulmicort and performance inhalations, Solu-Medrol. Anticoagulated with warfarin. Sputum culture revealing no growth thus far. White count 14.9. Hemoglobin 13.4. Platelets 253. Sodium 139. Potassium 4.2. Bicarb 22. BUN 31. Creatinine 1.6. Glucose 147. The patient is seen today January 15, 2025 in follow-up on the regular medical floor. She is awake and alert in no acute distress. She is sitting up in bed. She is feeling better today compared to yesterday. Still with some dry nonproductive cough. No fever or chills. Maintaining good O2 saturations in the 90s on 2 L/min per nasal cannula. She has been afebrile. Hemodynamically stable. Sputum culture revealed no growth. White count 11.8. Hemoglobin 13.1. Platelets 235. Sodium 137. Potassium 3.8. Bicarb 20. BUN 37. Creatinine 1.5. Glucose 154. She remains on DuoNeb inhalations, Pulmicort and Perforomist inhalations, Solu-Medrol. She is continued on Mucinex and Tessalon Perles. W arfarin for anticoagulation. Remains on Protonix. The patient is seen today January 16, 2025 in follow-up on the regular medical floor. She is awake and alert in no acute distress. Resting comfortably in bed. Feeling better today compared to yesterday. She is maintaining O2 saturations in the 90s on 2 L/min per nasal cannula. She is afebrile. Hemodynamically stable. Still with a loose congested cough. Still feeling a bit weak. She is continued on DuoNeb inhlations, Pulmicort and Perforomist inhalations, IV Solu-Medrol. She is anticoagulated with warfarin. INR supratherapeutic today at 5.3. White count 11.5. Hemoglobin 12.9. Platelets 254. Sodium 140. Potassium 3.7. Bicarb 21. BUN 34. Creatinine 1.5. Glucose 148. The patient is seen today January 17, 2025 in follow-up on the regular medical floor. Sitting up in bed. Still having complaints of shortness of breath and d ry nonproductive cough. She is maintaining good O2 saturations in the 90s on 2 L/min per nasal cannula. She is afebrile. Hemodynamically stable. She is continued on DuoNeb inhalations, Symbicort, Solu-Medrol. She remains on Tessalon Perles and Mucinex. White count 11.1. Hemoglobin 12.9. INR 3.2. Sodium 138. Potassium 4.1. Bicarb 23. BUN 32. Creatinine 1.3. Glucose 134. Objective - Vital Signs Vital signs: Vital Signs Temp 97.5 F L 01/17/25 07:00 Pulse 74 01/17/25 12:16 Resp 16 01/17/25 07:00 BP 157/90 01/17/25 07:00 Pulse Ox 98 01/17/25 07:00 FiO2 Intake & Output 01/16/25 01/17/25 01/17/25 18:59 06:59 18:59 Intake Total 562 Balance 562 Intake: Oral 562 Other: Voiding Method Bedside Commode Bedside Commode Bedside Commode # Voids 2 1 # Bowel Movements 0 - Exam GENERAL EXAM: Alert, pleasant 79-year-old female, sitting up in bed, on 2 L nasal cannula, in no apparent distress. HEAD: Normocephalic. EYES: Normal reaction of pupils, equal size. NOSE: Clear with pink turbinates. THROAT: No erythema or exudates. NECK: No masses, no JVD. CHEST: No chest wall deformity. LUNGS: Equal air entry with bilateral end expiratory wheeze. CVS: S1 and S2 normal with no audible murmur, regular rhythm. ABDOMEN: No hepatosplenomegaly, normal bowel sounds, no guarding or rigidity. SPINE: No scoliosis or deformity SKIN: No rashes CENTRAL NERVOUS SYSTEM: No focal deficits, tone is normal in all 4 extremities. EXTREMITIES: There is no peripheral edema. No clubbing, no cyanosis. Peripheral pulses are intact. - Labs CBC & Chem 7: 01/17/25 05:51 01/17/25 05:51 Labs: Abnormal Lab Results - Last 24 Hours (Table) 01/17/25 01/17/25 01/17/25 Range/Units 05:51 05:51 05:51 WBC 11.15 H (4.50-10.00) X 10*3/uL RDW 17.2 H (11.5-14.5) % NRBC/100 WBC Diff 0.02 H (0.00-0.01) X 10*3/uL PT 31.8 H (10.0-12.5) sec INR 3.2 H (<1.2) BUN 32.1 H (9.0-27.0) mg/dL Est GFR (CKD-EPI) 42 L (>=60) BUN/Creatinine Ratio 24.69 H (12.00-20.00) Ratio Glucose 134 H (70-110) mg/dL AST 38 H (13-35) U/L ALT 54 H (8-44) U/L Total Protein 6.1 L (6.2-8.2) g/dL Assessment and Plan Assessment: Acute hypoxemic respiratory failure secondary to an acute exacerbation of mild intermittent chronic bronchial asthma complicated by purulent tracheobronchitis. Chest x-ray shows no acute process. Procalcitonin negative. Viral screen negative History of mild intermittent chronic bronchial asthma Non-smoker History of systolic congestive heart failure Chronic kidney disease stage IIIb Chronic atrial fibrillation anticoagulated with warfarin Chronic systolic heart failure with an ejection fraction of 30 to 35% Coronary disease with previous stenting to the LAD x 2 in 2023 Anemia of chronic disease Hypertension Hyperlipidemia Rheumatoid arthritis History of CVA Previous history of melanoma of the face, resected Diverticulosis Plan: The patient was seen and evaluated Labs and medications reviewed Continue DuoNeb inhalations Placed back on Pulmicort and Perforomist Discontinue Symbicort Add Singulair Continue Solu-Medrol Continue Tessalon Perles and Mucinex Protonix for GI prophylaxis Anticoagulated with warfarin Plan will be for home with home care at discharge This patient was seen independently by the pulmonary nurse practitioner addressing pulmonary issues I have personally seen and examined the patient, performed the documentation and the assessment and plan as written. Number of minutes spent on the visit: 25 Dictation was produced using [employer] dictation software. Please excuse any gram matical, word or spelling errors.
--- NOTE | 2025-01-17 14:20 | P.PN ---
Subjective Progress Note Date: 01/17/25 Hospital Course: Patient is a very pleasant 79-year-old female with a past medical history of CAD status post recent stenting, chronic persistent atrial fibrillation on anticoagulation with Coumadin, chronic systolic heart failure with previously known EF of 30 to 35%, hypertension, COPD with chronic hypoxic respiratory failure home oxygen dependent on 2 L at all times, and stage IIIb chronic kidney disease. She follows with Ex[employer] Specialist. Dr. Bajwa and PCP Dr. Mcneal. She presented to the hospital with a chief complaint of shortness of breath. Patient reports symptoms began approximately 4 days ago with reports of generalized bodyaches/pain, fatigue, decreased appetite, diaphoresis, increasing shortness of breath, and coarse cough productive of white sputum. Patient denies having any known fevers, chills, headache, lightheadedness, dizziness, chest pain or palpitations, nausea, vomiting, abdominal pain, or experiencing any numbness/tingling/weakness/swelling in her extremities. Upon arrival to our facility, patient underwent evaluation in the emergency department. Vital signs upon arrival show blood pressure 131/74, heart rate 90, respiratory rate 20, temp 97.6 F, and SpO2 of 96% on room air. Patient placed on her baseline 2 L home O2 with SpO2 increasing to 97%. EKG completed showing atrial fibrillation with mild RVR to 106 bpm. Chest x-ray showing cardiomegaly negative for acute cardiopulmonary process showing no suspicious or new focal airspace opacities. Labs completed and reviewed. CBC unremarkable. Coagulation profile showing slightly subtherapeutic INR of 1.9. BMP unremarkable. Blood glucose 99. Lactic acid 1.6. Liver profile showing elevated total bili of 1.8 and AST of 50. Pro-BNP 5300. Influenza A, influenza B, RSV, and COVID PCR negative. Patient admitted under services with consultation to pulmonology 01/17 patient was placed back on Pulmicort and Perforomist and her Symbicort was discontinued, rest of management with Solu-Medrol, Tessalon Perles, Mucinex continued. She is satting well on 2 L nasal cannula. Added montelukast 10 mg p.o. nightly Seen examined at bedside, complains of ongoing cough, shortness of breath Pertinent positives and negatives as discussed above, a complete review of systems was performed and all other systems are negative. Vitals Signs Reviewed. Vital signs reviewed and stable. General: Nontoxic, no distress and appears stated age. Derm: Skin warm and dry, normal coloration for ethnicity. Head: Atraumatic, normocephalic and symmetric. Eyes: EOMs intact, no lid lag, and anicteric sclera Mouth: no lip lesions, mucus membranes moist Cardiovascular: Irregularly irregular, systolic murmur, positive posterior tibial pulses bilaterally, and cap refill < 2 seconds. Lungs: Respirations even, regular, and unlabored on 2L.. Lungs diminished with diffuse expiratory wheezes throughout and continued coarse cough noted. No rhonchi, rales, or crackles noted Abdominal: soft, nontender to palpation, no guarding, no appreciable organomegaly Ext: ROM intact. No gross muscle atrophy, no edema, no contractures Neuro: Speech clear, face symmetrical and CN II-XII grossly intact with no noted focal neuro deficits Psych: Alert and oriented to person, place, time, and situation. Appropriate and pleasant affect. Data Reviewed Today: Pertinent Labs: WBC 11.15, normal hemoglobin and platelet count, sodium, potassium normal, creatinine 1.3, glucose 134 Assessment and Plan:Acute on chronic respiratory failure COPD/chronic bronchial asthma exacerbation Purulent tracheobronchitis -Exhibition Specialist following, reviewed documentation in chart. placed back on Pulmicort 1 evaluation twice daily and Perforomist 20 mcg twice daily and her Symbicort was discontinued, added montelukast 10 mg nightly -Oxygenation to be administered and titrated as needed to maintain SPO2 equal to or greater than 92% -Telemetry monitoring. -Monitor pulse-oximetry -Duonebs scheduled 4 times daily and as needed for SOB and/or wheezing -Incentive Spirometry and flutter valve -Procalcitonin negative at 0.08, Levaquin was discontinued. -Steroids: Solu-Medrol 60 mg IVP every 6 hours. Subtherapeutic INR on arrival Chronic systolic heart failure with previously known EF of 30 to 35% History of CAD status post stenting Chronic atrial fibrillation -Pharmacy to dose Coumadin, INR 3.2 -Continue cardiac medication regimen with atorvastatin 40 mg nightly, Lasix 40 mg daily, Farxiga 10 mg daily, Plavix 75 mg daily, isosorbide mononitrate 30 mg daily, and metoprolol 12.5 mg twice daily. CODE STATUS: Full Code DVT prophylaxis: Coumadin Anticipated discharge date: Likely tomorrow morning Anticipated discharge place: Home Objective - Vital Signs Vital signs: Vital Signs Temp 97.5 F L 01/17/25 07:00 Pulse 74 01/17/25 12:16 Resp 16 01/17/25 07:00 BP 157/90 01/17/25 07:00 Pulse Ox 98 01/17/25 07:00 FiO2 Intake & Output 01/16/25 01/17/25 01/17/25 18:59 06:59 18:59 Intake Total 562 Balance 562 Intake: Oral 562 Other: Voiding Method Bedside Commode Bedside Commode Bedside Commode # Voids 2 1 # Bowel Movements 0 - Labs CBC & Chem 7: 01/17/25 05:51 01/17/25 05:51 Labs: Abnormal Lab Results - Last 24 Hours (Table) 01/17/25 01/17/25 01/17/25 Range/Units 05:51 05:51 05:51 WBC 11.15 H (4.50-10.00) X 10*3/uL RDW 17.2 H (11.5-14.5) % NRBC/100 WBC Diff 0.02 H (0.00-0.01) X 10*3/uL PT 31.8 H (10.0-12.5) sec INR 3.2 H (<1.2) BUN 32.1 H (9.0-27.0) mg/dL Est GFR (CKD-EPI) 42 L (>=60) BUN/Creatinine Ratio 24.69 H (12.00-20.00) Ratio Glucose 134 H (70-110) mg/dL AST 38 H (13-35) U/L ALT 54 H (8-44) U/L Total Protein 6.1 L (6.2-8.2) g/dL
[2025-01-17] MEDS: guaiFENesin-Coden 100-10MG/5ML 10 ML CUP PO PRN (15:24)
[2025-01-17] MEDS ORDERED: WARFARIN 2 MG TAB PO SCH (18:00)
[2025-01-17] MEDS: WARFARIN 1 MG TAB PO ONE (18:43)
[2025-01-17] MEDS: MONTELUKAST 10 MG TAB PO SCH (20:05)
[2025-01-18 06:26] LABS: INR 2.5 (<1.2)
[2025-01-18 08:03] VITALS: BP 152/83; RESP 15; TEMP 97.6
[2025-01-18] MEDS: SYMBICORT 160-4.5 MCG INHALER INHALATION SCH (08:09)
[2025-01-18] MEDS: predniSONE 20 MG TAB PO SCH (08:25)
--- NOTE | 2025-01-18 11:14 | P.PN ---
Subjective Progress Note Date: 01/18/25 This is a 79-year-old female patient with a known history of mild intermittent chronic bronchial asthma, non-smoker, hyperlipidemia, coronary artery disease with stent placement, congestive heart failure, hypertension. She presented here to the emergency room yesterday after a 3 to 4-day history of increasing shortness of breath, cough and congestion. She was seen in the emergency room the day prior and was discharged home on antibiotics. Chest x-ray shows cardiomegaly without acute pulmonary process. White count 8.2. Hemoglobin 13.9. Platelets 220. INR 2.0. Sodium 139. Potassium 3.2. Bicarb 21. BUN 19. Creatinine 1.3. Glucose 170. Procalcitonin negative at 0.08. Viral screen negative. She is seen today in consultation on the regular medical floor. She is resting in bed. Awake and alert in no acute distress. She has a loose nonproductive cough. She is afebrile. Hemodynamically stable. Maintaining O2 saturations in the 90s on 2 L/min per nasal cannula. The patient is seen today January 14, 2025 in follow-up on the regular medical floor. She is currently resting in bed. Awake and alert in no acute distress. She is breathing a bit better than yesterday still not quite back to her baseline. Still dyspneic with minimal exertion. Dyspneic with conversation. She is maintaining O2 saturations in the upper 90s on 2 L/min per nasal cannula. She is afebrile. Hemodynamically stable. Procalcitonin was negative at 0.08. Her Levaquin will be discontinued. She is continued on DuoNeb inhalations, Pulmicort and performance inhalations, Solu-Medrol. Anticoagulated with warfarin. Sputum culture revealing no growth thus far. White count 14.9. Hemoglobin 13.4. Platelets 253. Sodium 139. Potassium 4.2. Bicarb 22. BUN 31. Creatinine 1.6. Glucose 147. The patient is seen today January 15, 2025 in follow-up on the regular medical floor. She is awake and alert in no acute distress. She is sitting up in bed. She is feeling better today compared to yesterday. Still with some dry nonproductive cough. No fever or chills. Maintaining good O2 saturations in the 90s on 2 L/min per nasal cannula. She has been afebrile. Hemodynamically stable. Sputum culture revealed no growth. White count 11.8. Hemoglobin 13.1. Platelets 235. Sodium 137. Potassium 3.8. Bicarb 20. BUN 37. Creatinine 1.5. Glucose 154. She remains on DuoNeb inhalations, Pulmicort and Perforomist inhalations, Solu-Medrol. She is continued on Mucinex and Tessalon Perles. W arfarin for anticoagulation. Remains on Protonix. The patient is seen today January 16, 2025 in follow-up on the regular medical floor. She is awake and alert in no acute distress. Resting comfortably in bed. Feeling better today compared to yesterday. She is maintaining O2 saturations in the 90s on 2 L/min per nasal cannula. She is afebrile. Hemodynamically stable. Still with a loose congested cough. Still feeling a bit weak. She is continued on DuoNeb inhlations, Pulmicort and Perforomist inhalations, IV Solu-Medrol. She is anticoagulated with warfarin. INR supratherapeutic today at 5.3. White count 11.5. Hemoglobin 12.9. Platelets 254. Sodium 140. Potassium 3.7. Bicarb 21. BUN 34. Creatinine 1.5. Glucose 148. The patient is seen today January 17, 2025 in follow-up on the regular medical floor. Sitting up in bed. Still having complaints of shortness of breath and d ry nonproductive cough. She is maintaining good O2 saturations in the 90s on 2 L/min per nasal cannula. She is afebrile. Hemodynamically stable. She is continued on DuoNeb inhalations, Symbicort, Solu-Medrol. She remains on Tessalon Perles and Mucinex. White count 11.1. Hemoglobin 12.9. INR 3.2. Sodium 138. Potassium 4.1. Bicarb 23. BUN 32. Creatinine 1.3. Glucose 134. The patient is seen today January 18, 2025 in follow-up on the regular medical floor. She is awake and alert in no acute distress. Sitting up in bed. Denies any worsening shortness of breath, cough or congestion. She is feeling better today compared to yesterday. Maintaining good O2 saturations in the 90s on 2 L/min per nasal cannula. She has been afebrile. Hemodynamically stable. Sputum culture revealed no growth. INR 2.5. She remains on DuoNeb and elations, Symbicort, Solu-Medrol, Singulair. Continued on Mucinex and Tessalon Perles as needed. Anticoagulated with warfarin. Objective - Vital Signs Vital signs: Vital Signs Temp 97.6 F 01/18/25 07:00 Pulse 78 01/18/25 08:11 Resp 15 01/18/25 07:00 BP 152/83 01/18/25 07:00 Pulse Ox 97 01/18/25 07:00 FiO2 Intake & Output 01/17/25 01/18/25 01/18/25 18:59 06:59 18:59 Intake Total 300 Balance 300 Intake: Oral 300 Other: Voiding Method Toilet Toilet Toilet Bedside Commode Bedside Commode # Voids 4 5 1 - Exam GENERAL EXAM: Alert, pleasant 79-year-old female, on 2 L nasal cannula, comfortable in no apparent distress. HEAD: Normocephalic. EYES: Normal reaction of pupils, equal size. NOSE: Clear with pink turbinates. THROAT: No erythema or exudates. NECK: No masses, no JVD. CHEST: No chest wall deformity. LUNGS: Equal air entry with bilateral end expiratory wheeze. CVS: S1 and S2 normal with no audible murmur, regular rhythm. ABDOMEN: No hepatosplenomegaly, normal bowel sounds, no guarding or rigidity. SPINE: No scoliosis or deformity SKIN: No rashes CENTRAL NERVOUS SYSTEM: No focal deficits, tone is normal in all 4 extremities. EXTREMITIES: There is no peripheral edema. No clubbing, no cyanosis. Peripheral pulses are intact. - Labs CBC & Chem 7: 01/17/25 05:51 01/17/25 05:51 Labs: Abnormal Lab Results - Last 24 Hours (Table) 01/18/25 Range/Units 05:11 PT 25.0 H (10.0-12.5) sec INR 2.5 H (<1.2) Assessment and Plan Assessment: Acute hypoxemic respiratory failure secondary to an acute exacerbation of mild intermittent chronic bronchial asthma complicated by purulent tracheobronchitis. Chest x-ray shows no acute process. Procalcitonin negative. Viral screen negative History of mild intermittent chronic bronchial asthma Non-smoker History of systolic congestive heart failure Chronic kidney disease stage IIIb Chronic atrial fibrillation, anticoagulated with warfarin Chronic systolic heart failure with an ejection fraction of 30 to 35% Coronary disease with previous stenting to the LAD x 2 in 2023 Anemia of chronic disease Hypertension Hyperlipidemia Rheumatoid arthritis History of CVA Previous history of melanoma of the face, resected Diverticulosis Plan: The patient was seen and evaluated Labs and medications reviewed Continue DuoNeb inhalations Placed back on Symbicort Continue Singulair Discontinue Solu-Medrol Initiated on a prednisone taper Remains on warfarin Cleared for discharge Follow-up in our office in 1 week This patient was seen independently by the pulmonary nurse practitioner addressing pulmonary issues I have personally seen and examined the patient, performed the documentation and the assessment and plan as written. Number of minutes spent on the visit: 23 Dictation was produced using [employer] dictation software. Please excuse any grammatical, word or spelling errors.
--- NOTE | 2025-01-18 11:15 | P.DS ---
Providers Date of admission: 01/14/25 10:56 Attending physician: Kelsy Ricks MD Consults: 01/12/25 14:22 Consult Physician Routine Consulting Provider: Brooklyn Prince Consult Reason/Comments: COPD exacerbation Do you want consulting provider notified?: Yes Primary care physician: Dex Mcneal MD Hospital Course: Discharge Diagnosis: acute on chronic respiratory failure COPD/chronic bronchial asthma exacerbation Purulent tracheobronchitis Subtherapeutic INR on arrival Chronic systolic heart failure with previously known EF of 30 to 35% History of CAD status post stenting Chronic atrial fibrillation Hospital Course: Patient is a very pleasant 79-year-old female with a past medical history of CAD status post recent stenting, chronic persistent atrial fibrillation on anticoagulation with Coumadin, chronic systolic heart failure with previously known EF of 30 to 35%, hypertension, COPD with chronic hypoxic respiratory failure home oxygen dependent on 2 L at all times, and stage IIIb chronic kidney disease. She follows with [employer]. Dr. Bajwa and PCP Dr. Mcneal. She presented to the hospital with a chief complaint of shortness of breath. Patient reports symptoms began approximately 4 days ago with reports of generalized bodyaches/pain, fatigue, decreased appetite, diaphoresis, increasing shortness of breath, and coarse cough productive of white sputum. Patient de nies having any known fevers, chills, headache, lightheadedness, dizziness, chest pain or palpitations, nausea, vomiting, abdominal pain, or experiencing any numbness/tingling/weakness/swelling in her extremities. Upon arrival to our facility, patient underwent evaluation in the emergency department. Vital signs upon arrival show blood pressure 131/74, heart rate 90, respiratory rate 20, temp 97.6 F, and SpO2 of 96% on room air. Patient placed on her baseline 2 L home O2 with SpO2 increasing to 97%. EKG completed showing atrial fibrillation with mild RVR to 106 bpm. Chest x-ray showing cardiomegaly negative for acute cardiopulmonary process showing no suspicious or new focal airspace opacities. Labs completed and reviewed. CBC unremarkable. Coagulation profile showing slightly subtherapeutic INR of 1.9. BMP unremarkable. Blood glucose 99. Lactic acid 1.6. Liver profile showing elevated total bili of 1.8 and AST of 50. Pro-BNP 5300. Influenza A, influenza B, RSV, and COVID PCR negative. Patient admitted under services with consultation to pulmonology 01/17 patient was placed back on Pulmicort and Perforomist and her Symbicort was discontinued, rest of management with Solu-Medrol, Tessalon Perles, Mucinex continued. She is satting well on 2 L nasal cannula. Added montelukast 10 mg p.o. nightly 01/18: Patient noted mild improvement, remains on 2 L of home oxygen, she stated that she does not feel that her energy is back, we discussed that the energy is unlikely to get back while she is laying in a hospital bed and she needs to get back to her usual activity, she is medically stable and optimized for discharge. She will follow-up with her primary care physician, television installer helper. Patient seen and examined at bedside.[] Vital signs reviewed and stable. General: Nontoxic, no distress and appears stated age. Derm: Skin warm and dry, normal coloration for ethnicity. Head: Atraumatic, normocephalic and symmetric. Eyes: EOMs intact, no lid lag, and anicteric sclera Mouth: no lip lesions, mucus membranes moist Cardiovascular: Irregularly irregular, systolic murmur, positive posterior tibial pulses bilaterally, and cap refill < 2 seconds. Lungs: Respirations even, regular, and unlabored on 2L.. Lungs diminished with diffuse expiratory wheezes throughout no cough on exam today. No rhonchi, rales, or crackles noted Abdominal: soft, nontender to palpation, no guarding, no appreciable organomegaly Ext: ROM intact. No gross muscle atrophy, no edema, no contractures Neuro: Speech clear, face symmetrical and CN II-XII grossly intact with no noted focal neuro deficits Psych: Alert and oriented to person, place, time, and situation. Appropriate and pleasant affect. A total of 40 minutes of time were spent preparing this complex discharge summary. Patient was discharged on 01/18/2025. Plan - Discharge Summary Discharge Rx Participant: No New Discharge Prescriptions: New Montelukast [Singulair] 10 mg PO HS #30 tab predniSONE [Deltasone] See Taper PO DAILY #41 tab guaiFENesin-Coden 100-10MG/5ML [Robitussin AC] 10 ml PO Q6HR PRN #240 ml PRN Reason: Cough Budesonide-Formot 160-4.5 Mcg [Symbicort 160-4.5 Mcg Inhaler] 2 puff INHALATION RT-BID #2 each Benzonatate [Tessalon Perles] 200 mg PO TID PRN #30 cap PRN Reason: Cough Continue Pantoprazole Sodium [Protonix] 40 mg PO BID Warfarin Sodium 8 mg PO SUMOTUWEFRSA@2099 DULoxetine HCL [Cymbalta] 60 mg PO DAILY Atorvastatin [Lipitor] 40 mg PO HS #90 tab Clopidogrel [Plavix] 75 mg PO DAILY #90 tab Furosemide [Lasix] 40 mg PO DAILY 30 Days #30 tab Empagliflozin [Jardiance] 10 mg PO DAILY 30 Days #30 tablet Metoprolol Tartrate [Lopressor] 12.5 mg PO BID Ipratropium-Albuterol Nebulize [Duoneb 0.5 mg-3 mg/3 ml Soln] 3 ml INHALATION RT-QID Cyanocobalamin (Vitamin B-12) [Vitamin B-12] 1,000 mcg PO DAILY Warfarin Sodium 4 mg PO TH@2099 Pregabalin [Lyrica] 100 mg PO BID #6 cap Albuterol Inhaler [Ventolin Hfa Inhaler] 2 puff INHALATION RT-Q6H PRN PRN Reason: Shortness Of Breath Cholecalciferol (Vitamin D3) [Vitamin D3 (50 Mcg = 2000 Iu)] 50 mcg PO DAILY Isosorbide Mononitrate ER [Imdur] 30 mg PO DAILY #90 tab estradioL [Estrace] 1 mg PO DAILY calcitrioL [Rocaltrol] 0.25 mcg PO DIRECTED predniSONE [Deltasone] 20 mg PO DIRECTED Azithromycin [Zithromax Z Pack] See Taper PO DIRECTED Discharge Medication List Pantoprazole Sodium [Protonix] 40 mg PO BID 05/14/14 [History] Cyanocobalamin (Vitamin B-12) [Vitamin B-12] 1,000 mcg PO DAILY 06/16/22 [History] Warfarin Sodium 4 mg PO TH@209912/07/22 [History] Warfarin Sodium 8 mg PO SUMOTUWEFRSA@209901/25/23 [History] DULoxetine HCL [Cymbalta] 60 mg PO DAILY 07/27/23 [History] Pregabalin [Lyrica] 100 mg PO BID #6 cap 08/04/23 [Rx] Albuterol Inhaler [Ventolin Hfa Inhaler] 2 puff INHALATION RT-Q6H PRN 12/22/23 [History] Cholecalciferol (Vitamin D3) [Vitamin D3 (50 Mcg = 2000 Iu)] 50 mcg PO DAILY 12/22/23 [History] Atorvastatin [Lipitor] 40 mg PO HS #90 tab 12/25/23 [Rx] Clopidogrel [Plavix] 75 mg PO DAILY #90 tab 01/06/24 [Rx] Isosorbide Mononitrate ER [Imdur] 30 mg PO DAILY #90 tab 01/06/24 [Rx] Empagliflozin [Jardiance] 10 mg PO DAILY 30 Days #30 tablet 05/08/24 [Rx] Furosemide [Lasix] 40 mg PO DAILY 30 Days #30 tab 05/08/24 [Rx] Azithromycin [Zithromax Z Pack] See Taper PO DIRECTED 01/12/25 [History] Ipratropium-Albuterol Nebulize [Duoneb 0.5 mg-3 mg/3 ml Soln] 3 ml INHALATION RT-QID 01/12/25 [History] Metoprolol Tartrate [Lopressor] 12.5 mg PO BID 01/12/25 [History] calcitrioL [Rocaltrol] 0.25 mcg PO DIRECTED 01/12/25 [History] estradioL [Estrace] 1 mg PO DAILY 01/12/25 [History] predniSONE [Deltasone] 20 mg PO DIRECTED 01/12/25 [History] Benzonatate [Tessalon Perles] 200 mg PO TID PRN #30 cap 01/18/25 [Rx] Budesonide-Formot 160-4.5 Mcg [Symbicort 160-4.5 Mcg Inhaler] 2 puff INHALATION RT-BID #2 each 01/18/25 [Rx] Montelukast [Singulair] 10 mg PO HS #30 tab 01/18/25 [Rx] guaiFENesin-Coden 100-10MG/5ML [Robitussin AC] 10 ml PO Q6HR PRN #240 ml 01/18/25 [Rx] predniSONE [Deltasone] See Taper PO DAILY #41 tab 01/18/25 [Rx] Follow up Appointment(s)/Referral(s): Dex Mcneal MD [Primary Care Provider] - 1-2 days [facility], [NON-STAFF] - As Needed Care,[facility] [NON-STAFF] - As Needed Rebecca Bajwa MD [STAFF PHYSICIAN] - 1 Week Activity/Diet/Wound Care/Special Instructions: Please, follow-up with primary care physician, pulmonology, palliative medicine Discharge Disposition: HOME WITH HOME HEALTH SERVICES
[2025-01-18 11:33] VITALS: PULSE 72
[2025-01-18] MEDS ORDERED: WARFARIN 2 MG TAB PO ONE (18:00)
--- NOTE | 2025-01-23 07:09 | CDI ---
Documentation Clarification Form Date: 01/23/25 From: Alina Palmer Admit Date: 01/14/2025 10:56:00 AM Patient Name: Lily Oliver Visit Number: [id number] Discharge Date: 01/18/2025 01:33:00 PM ATTENTION: The Clinical Documentation Specialists (CDI) and [facility] Coding Staff appreciate your assistance in clarifying documentation. Please respond to the clarification below the line at the bottom and electronically sign. The CDI & [facility] Coding staff will review the response and follow-up if needed. Please note: Queries are made part of the Legal Health Record. If you have any questions, please contact the author of this message via ITS. Doctor/Provider: Jimena Lewis, Acute on chronic respiratory with hypoxia is documented in the H&P, consult, PNs and DS which may lack sufficient clinical evidence/support in the medical record. Additional clarification is requested. History/Risk Factors: Chronic hypoxic respiratory failure on home O2 2L, HTN W chronic systolic CHF and CKD 3b, COPD, mild intermittent asthma, RA, persistent atrial fibrillation Clinical Indicators: Per ED documentation: presents with cough, wheezes and dyspnea. 01/13 CO2 21.1, O2 sat 01/12 96, 01/14 94. Treatment: O2 flow rate was 2L throughout the encounter. Oxygenation to be administered and titrated as needed to maintain SPO2 equal to or greater than 92%. Telemetry monitoring. -Monitor pulse-oximetry. Duonebs scheduled 4 times daily and as needed for SOB and/or wheezing Incentive Spirometry. -Antibiotics: Empirically started on: Levaquin 750 mg daily x 5 days. Obtain sputum culture and procalcitonin Steroids: Solu-Medrol 60 mg IVP every 6 hours. Please clarify if acute on chronic respiratory failure is a valid diagnosis? [ ] No, acute on chronic hypoxic respiratory failure is ruled out [ x ] Yes, chronic hypoxic respiratory failure [ ] Yes, acute on chronic hypoxic respiratory failure is present as evidence by (additional clinical support): [ ] Other (please specify diagnosis) [ ] Unable to determine MTDD
--- NOTE | 2025-01-24 06:27 | CDI ---
Documentation Clarification Form Date: 01/24/25 From: Alina Palmer Admit Date: 01/14/2025 10:56:00 AM Patient Name: Lily Oliver Visit Number: [id number] Discharge Date: 01/18/2025 01:33:00 PM ATTENTION: The Clinical Documentation Specialists (CDI) and [facility] Coding Staff appreciate your assistance in clarifying documentation. Please respond to the clarification below the line at the bottom and electronically sign. The CDI & [facility] Coding staff will review the response and follow-up if needed. Please note: Queries are made part of the Legal Health Record. If you have any questions, please contact the author of this message via ITS. Doctor/Provider: Jimena Lewis, Conflicting documentation has been found in the medical record. As attending physician, please provide clarification. Chronic obstructive pulmonary disease with exacerbation is documented in the ED Note, H&P, PNs and DS. Dr. Somers consult does not document chronic obstructive pulmonary in exacerbation. He does state: I am seeing her in consultation for acute hypoxic respiratory failuresecondary to acute exacerbation ofmild intermittent asthma. On physical examination patientseems to be quite bronchospastic, History/Risk Factors: Chronic hypoxic respiratory failure on home O2 2L, HTN W chronic systolic CHF and CKD 3b, COPD, mild intermittent asthma, RA, persistent atrial fibrillation, non-smoker Clinical Indicators: She presented to the hospital with a chief complaint ofshortness of breath. Patient reports symptoms began approximately 4 days ago with reports of generalized body aches/pain,fatigue, decreased appetite,diaphoresis, increasing shortness of breath, and coarsecoughproductive of white sputum. Procalcitonin 0.08 Vial screen negative CXR shows no acute process. WBC on 01/14 (day of adm) bindu to 14.97 Treatment: IV Solu-Medrol, Duoneb, oral Azithromycin, oral Prednisone, Pulimcort, Symbicort, Please clarify which diagnosis is most appropriate: [ x ] Chronic obstructive pulmonary disease in exacerbation [ ] No, Chronic obstructive pulmonary disease [ ] Other (please specify) [ ] Unable to determine MTDD
--- NOTE | 2025-01-24 06:49 | CDI ---
Documentation Clarification Form Date: 01/24/25 From: Alina Palmer Admit Date: 01/14/2025 10:56:00 AM Patient Name: Lily Oliver Visit Number: [id number] Discharge Date: 01/18/2025 01:33:00 PM ATTENTION: The Clinical Documentation Specialists (CDI) and [facility] Coding Staff appreciate your assistance in clarifying documentation. Please respond to the clarification below the line at the bottom and electronically sign. The CDI & [facility] Coding staff will review the response and follow-up if needed. Please note: Queries are made part of the Legal Health Record. If you have any questions, please contact the author of this message via ITS. Doctor/Provider: Jimena Lewis, There is documentation of purulent tracheobronchitis is documented in the pulmonary consult and numerous PNs. Additional clarification of the acuity of the condition is requested. History/Risk Factors: Chronic hypoxic respiratory failure on home O2 2L, HTN W chronic systolic CHF and CKD 3b, COPD, mild intermittent asthma, RA, persistent atrial fibrillation, non-smoker Clinical Indicators: LUNGS: Equal air entry with bilateral end expiratory wheeze (Dr. Adan 01/14 PN). Procalcitonin negative. WBC 14.97 (01/14). Treatment: Continue DuoNeb inhalations, Continue Pulmicort and Perforomist, Continue Solu-Medrol Can you please clarify the acuity of the purulent tracheobronchitis? [x ] Acute [ ] Chronic [ ] Other, please specify [ ] Unable to determine MTDD
== END 2025-01-18 13:33 | disposition hospice, home (50) | DRG 202 ==
LOC: EC 10:15 → 6NMEDSUR 12:38 → OBSVTOIN 01-14 10:56
PROVIDERS: ADMIT Internal Medicine; ATTEND Internal Medicine
DX: J45.21 Mild intermittent asthma with (acute) exacerbation (principal); I13.0 Hypertensive heart and chronic kidney disease with heart failure and stage 1 through stage 4 chronic kidney disease, or unspecified chronic kidney disease; J44.0 Chronic obstructive pulmonary disease with (acute) lower respiratory infection; D63.1 Anemia in chronic kidney disease; I69.391 Dysphagia following cerebral infarction; Z51.5 Encounter for palliative care; Z66 Do not resuscitate; I48.19 Other persistent atrial fibrillation; R13.10 Dysphagia, unspecified; G43.909 Migraine, unspecified, not intractable, without status migrainosus; M06.9 Rheumatoid arthritis, unspecified; N18.32 Chronic kidney disease, stage 3b; E89.0 Postprocedural hypothyroidism; I50.22 Chronic systolic (congestive) heart failure; J96.11 Chronic respiratory failure with hypoxia; J44.1 Chronic obstructive pulmonary disease with (acute) exacerbation; N17.9 Acute kidney failure, unspecified; I25.2 Old myocardial infarction; J20.9 Acute bronchitis, unspecified; K57.30 Diverticulosis of large intestine without perforation or abscess without bleeding; R79.1 Abnormal coagulation profile; I73.00 Raynaud's syndrome without gangrene; E78.5 Hyperlipidemia, unspecified; I25.10 Atherosclerotic heart disease of native coronary artery without angina pectoris; K21.9 Gastro-esophageal reflux disease without esophagitis; M54.9 Dorsalgia, unspecified; Z99.81 Dependence on supplemental oxygen; Z79.02 Long term (current) use of antithrombotics/antiplatelets; Z79.01 Long term (current) use of anticoagulants; Z79.84 Long term (current) use of oral hypoglycemic drugs; Z79.890 Hormone replacement therapy; Z79.899 Other long term (current) drug therapy; Z96.641 Presence of right artificial hip joint; Z96.653 Presence of artificial knee joint, bilateral; Z85.820 Personal history of malignant melanoma of skin; Z95.5 Presence of coronary angioplasty implant and graft; Z98.1 Arthrodesis status; Z88.1 Allergy status to other antibiotic agents; Z88.0 Allergy status to penicillin; Z88.2 Allergy status to sulfonamides; Z88.8 Allergy status to other drugs, medicaments and biological substances; Z88.6 Allergy status to analgesic agent; Z88.5 Allergy status to narcotic agent
CPT/HCPCS: 36415; 71046; 80048; 80053; 83605; 83735; 83880; 84145; 85025; 85027; 85610; 85730; 87070; 87205; 87636; 93005; 94640; 94760; 96361; 96374; 99285

== ENCOUNTER 2025-01-21 02:10 | Emergency (ER) | payer MEDICARE, BC ==
[2025-01-21] MEDS: SODIUM CHLORIDE 0.9% 500 ML 500 ML IV ONE ×2 (03:05→04:53)
[2025-01-21] MEDS: ONDANSETRON 4 MG/2 ML VIAL IVP STA (03:06)
--- NOTE | 2025-01-21 03:06 | ED ---
General Adult HPI - General Chief complaint: Abdominal Pain Stated complaint: Abdominal pain Time Seen by Provider: 01/21/25 02:28 Source: patient, EMS Mode of arrival: EMS - History of Present Illness Initial comments: Patient is a 79-year-old female the past medical history of atrial fibrillation on Coumadin, CHF, presenting today for right sided abdominal pain. States she was just discharged after being admitted for pneumonia. Was at home this afternoon when she was coughing and began experiencing sudden onset right-sided abdominal pain. Throughout the day her right side of her abdomen continued to enlarge. Endorses nausea, denies vomiting. Denies melena or hematochezia or diarrhea. Did have a small bowel movement this morning, last normal bowel movement this last Tuesday. Has had multiple prior abdominal surgeries including prior cholecystectomy and prior hernia surgery. She denies chest pain but endorses shortness of breath. Is on home 2 L oxygen nasal cannula. - Related Data Home Medications Medication Instructions Recorded Confirmed Pantoprazole Sodium [Protonix] 40 mg PO BID 05/14/14 01/12/25 Cyanocobalamin (Vitamin B-12) 1,000 mcg PO DAILY 06/16/22 01/12/25 [Vitamin B-12] Warfarin Sodium 4 mg PO TH@2100 12/07/22 01/12/25 Warfarin Sodium 8 mg PO SUMOTUWEFRSA@2100 01/25/23 01/12/25 DULoxetine HCL [Cymbalta] 60 mg PO DAILY 07/27/23 01/12/25 Albuterol Inhaler [Ventolin Hfa 2 puff INHALATION RT-Q6H PRN 12/22/23 01/12/25 Inhaler] Cholecalciferol (Vitamin D3) 50 mcg PO DAILY 12/22/23 01/12/25 [Vitamin D3 (50 Mcg = 2000 Iu)] Azithromycin [Zithromax Z Pack] See Taper PO DIRECTED 01/12/25 01/12/25 Ipratropium-Albuterol Nebulize 3 ml INHALATION RT-QID 01/12/25 01/12/25 [Duoneb 0.5 mg-3 mg/3 ml Soln] Metoprolol Tartrate [Lopressor] 12.5 mg PO BID 01/12/25 01/12/25 calcitrioL [Rocaltrol] 0.25 mcg PO DIRECTED 01/12/25 01/12/25 estradioL [Estrace] 1 mg PO DAILY 01/12/25 01/12/25 predniSONE [Deltasone] 20 mg PO DIRECTED 01/12/25 01/12/25 Previous Rx's Medication Instructions Recorded Pregabalin [Lyrica] 100 mg PO BID #6 cap 08/04/23 Atorvastatin [Lipitor] 40 mg PO HS #90 tab 12/25/23 Clopidogrel [Plavix] 75 mg PO DAILY #90 tab 01/06/24 Isosorbide Mononitrate ER [Imdur] 30 mg PO DAILY #90 tab 01/06/24 Empagliflozin [Jardiance] 10 mg PO DAILY 30 Days #30 tablet 05/08/24 Furosemide [Lasix] 40 mg PO DAILY 30 Days #30 tab 05/08/24 Benzonatate [Tessalon Perles] 200 mg PO TID PRN #30 cap 01/18/25 Budesonide-Formot 160-4.5 Mcg 2 puff INHALATION RT-BID #2 each 01/18/25 [Symbicort 160-4.5 Mcg Inhaler] Montelukast [Singulair] 10 mg PO HS #30 tab 01/18/25 guaiFENesin-Coden 100-10MG/5ML 10 ml PO Q6HR PRN #240 ml 01/18/25 [Robitussin AC] predniSONE [Deltasone] See Taper PO DAILY #41 tab 01/18/25 Allergies Allergy/AdvReac Type Severity Reaction Status Date / Time garlic Allergy Intermediate Swelling Verified 01/21/25 02:20 cephalexin monohydrate Allergy Rash/Hives Verified 01/21/25 02:20 [From Keflex] diphenhydramine HCl Allergy SWELLING Verified 01/21/25 02:20 [From Benadryl] OF TONGUE, SOB enoxaparin [From Lovenox] Allergy Rash/Hives Verified 01/21/25 02:20 Penicillins Allergy SWELLING, Verified 01/21/25 02:20 HIVES sulfamethoxazole Allergy Anaphylaxis, Verified 01/21/25 02:20 [From Bactrim] Swelling trimethoprim [From Bactrim] Allergy Anaphylaxis, Verified 01/21/25 02:20 Swelling aspirin AdvReac EXCESS Verified 01/21/25 02:20 BLEEDING milk AdvReac Abdominal Verified 01/21/25 02:20 Pain morphine AdvReac Vomiting Verified 01/21/25 02:20 milk chocolate AdvReac Nausea Uncoded 01/21/25 02:20 Review of Systems ROS Statement: Those systems with pertinent positive or pertinent negative responses have been documented in the HPI. ROS Other: All systems not noted in ROS Statement are negative. Past Medical History Past Medical History: Atrial Flutter, Asthma, Cancer, COPD, CVA/TIA, GERD/Reflux, GI Bleed, Hyperlipidemia, Hypertension, Memory Impairment, Myocard ial Infarction (VA), Osteoarthritis (OA), Renal Disease, Rheumatoid Arthritis (RA) Additional Past Medical History / Comment(s): Chronic cough. Back pain, migraines. residual from stroke,Occasional slight difficulty with swallowing. Hx gastic ulcer, H-Pylori, diverticulitis, hx melanoma on face X2. Hx kidney stones, "kidney function low", raynauds disease. recent stress test at Dr Castorena's office pt had chest pain-transferred to hospital heart cath unable to place stent at that time per pt. Last Myocardial Infarction Date:: 2012 History of Any Multi-Drug Resistant Organisms: None Reported Past Surgical History: Back Surgery, Cholecystectomy, Heart Catheterization, Hysterectomy, Joint Replacement, Orthopedic Surgery Additional Past Surgical History / Comment(s): RODS & CAGES IN BACK, RIGHT HIP REPLACEMENT, PARTIAL THYROIDECTOMY, BILATERAL KNEE REPLACEMENTS, NECK SURGERY WITH LIDIA AND CAGES, MELANOMA REMOVED FROM FACE X4, REPAIR OF HEMATOMA/FEMORAL ARTERY AFTER HEART CATHETERIZATION,rt foot bone spur removed Past Anesthesia/Blood Transfusion Reactions: Previous Problems w/ Anesthesia, Postoperative Nausea & Vomiting (PONV) Additional Past Anesthesia/Blood Transfusion Reaction / Comment(s): Hard to wake up. Past Psychological History: No Psychological Hx Reported Smoking Status: Never smoker Past Alcohol Use History: None Reported Past Drug Use History: None Reported - Past Family History Sister(s) Family Medical History: Cancer Brother(s) Family Medical History: Cancer Mother Family Medical History: Myocardial Infarction ([place]) Additional Family Medical History / Comment(s): Mother of a VA at the age of 76yrs. Father History Unknown: Yes Family Medical History: Chest Pain / Angina General Exam - General Exam Comments Initial Comments: PE: CONSTITUTIONAL: Mild distress secondary to pain laying on her left side, holding her right side, chronically ill-appearing nontoxic SKIN: Warm, dry, no jaundice, hives or petechiae, slight light brown-yellow bruise to RUQ EYES: Pupils are equally round, extraocular movements intact without nystagmus, clear conjunctiva, non-icteric sclera HENT: Normocephalic, atraumatic, moist mucus membranes, oropharynx clear without exudates NECK: , Full range of motion, normal appearance PULMONARY: Clear to auscultation without wheezes, rhonchi, or rales, normal excursion, no accessory muscle use and no stridor CARDIOVASCULAR: Regular rate, rhythm, normal S1 and S2. No appreciated murmurs, rubs or gallops. Strong radial and DP pulses bilaterally with intact distal perfusion. No lower extremity edema GASTROINTESTINAL: Distended, firm, predominantly along right side of the abdomen, hypoactive bowel sounds in the left side of the abdomen, bowel sounds present over area of swelling on the right side of the abdomen, no hepatomegaly, guarding with palpation throughout the abdomen, exquisitely tender palpation even to light touch on the right side of the abdomen, no palpable hernia GENITOURINARY: MUSCULOSKELETAL: Extremities have no gross deformity, no edema, redness, or swelling. NEUROLOGIC:_a/o x 3, GCS 15, normal mentation and speech. Moves all extremities x 4 without motor or sensory deficit PSYCHIATRIC:_normal mood and affect, thought process is clear and linear Course Vital Signs 01/21/25 01/21/25 01/21/25 02:16 04:30 04:53 Temperature 98.0 F 97.7 F Pulse Rate 73 97 96 Respiratory 18 19 17 Rate Blood Pressure 118/59 130/64 137/68 O2 Sat by Pulse 100 98 100 Oximetry - Reevaluation(s) Reevaluation #1: Was called regarding CT abdomen/pelvis findings. Shows intra-abdominal wall hematoma with active bleeding. Patient's hemoglobin is stable from most recent admission stable blood pressure. Patient is on Coumadin with an INR of 3.1. Given active bleeding and size of hematoma, patient was given 5 mg IV vitamin K as well as Kcentra. Dr. Paulino, general surgery, was paged for further recommendation 01/21/25 04:00 EKG Findings - EKG Comments: EKG Findings:: Relation, rate 86 bpm QT/QTc 413/457 ms, left axis deviation, left bundle branch block present, T wave inversion lead aVL, compared to prior EKG performed. Compared to EKG performed on 01/12/2025, T wave inversion lead a V1 lead I appear more prominent than prior, otherwise overall appears stable from prior Medical Decision Making - Medical Decision Making Was pt. sent in by a medical professional or institution (, PA, PATIENT SERVICES COORDINATOR, urgent care, hospital, or [facility]...) When possible be specific @ -No Did you speak to anyone other than the patient for history (EMS, parent, family, police, friend...)? What history was obtained from this source @Patient assisted in providing history Did you review nursing and triage notes (agree or disagree)? Why? @ -I reviewed and agree with nursing and triage notes, abdominal pain since yesterday, no trauma Were old charts reviewed (outside hosp., previous admission, EMS record, old EKG, old radiological studies, urgent care reports/EKG's, [facility] records)? Report findings @ -Medical records reviewed reviewed discharge summary from 01/19/2024 when patient was admitted for COPD, tracheobronchitis Differential Diagnosis (chest pain, altered mental status, abdominal pain women, abdominal pain men, vaginal bleeding, weakness, fever, dyspnea, syncope, headache, dizziness, GI bleed, back pain, seizure, CVA, palpatations, mental health, musculoskeletal)? @Differential Abdominal Pain Women: Appendicitis, Cholecystitis, diverticulosis, ischemic bowel, pancreatitis, hepatitis, UTI, gastroenteritis, AAA, incarcerated hernia, bowel obstruction, constipation, inflammatory bowel, hepatitis, peptic ulcer disease, splenic infarction, perforated viscus, kidney stone, \\ this is not meant to be an all- inclusive list EKG interpreted by me (3pts min.). @ -As above X-rays interpreted by me (1pt min.). @ -Personally reviewed chest x-ray, I see no evidence of consolidations or pneumothorax or air under the diaphragm I agree with radiologist interpretation of no acute process CT interpreted by me (1pt min.). @I personally reviewed CT scan appears to have area of bleeding contained along the right abdominal wall, Significant finding read by radiologist as "large intrafascial versus intramuscular hematoma of the lateral right abdominal/pelvic wall measuring about 14 cm transverse, 6 cm AP and 18 cm craniocaudal with active bleed most prominent in the superior aspect." Of note no abdominal aortic aneurysm U/S interpreted by me (1pt. min.). @ -None done What testing was considered but not performed or refused? (CT, X-rays, U/S, labs)? Why? @ -None What meds were considered but not given or refused? Why? @ -None Did you discuss the management of the patient with other professionals (professionals i.e. Dr., PA, PATIENT SERVICES COORDINATOR, lab, RT, psych nurse, social work instructor, voice over artist, teacher, property and supply officer, case fitter)? Give summary Case discussed with Dr. Paulino, general surgery recommends transfer to facility with interventional radiology Was smoking cessation discussed for >3mins.? @ -No Was critical care preformed (if so, how long)? @ Yes 35 minutes Were there social determinants of health that impacted care today? How? ( Homelessness, low income, unemployed, alcoholism, drug addiction, transportation, low edu. Level, literacy, decrease access to med. care, fdc, rehab)? @ -No Was there de-escalation of care discussed even if they declined (Discuss DNR or withdrawal of care, Hospice)? @ -No What co-morbidities impacted this encounter? (DM, HTN, Smoking, COPD, CAD, Cancer, CVA, ARF, Chemo, Hep., AIDS, mental health diagnosis, sleep apnea, morbid obesity)? COPD, atrial fibrillation on Coumadin multiple prior abdominal surgeries Was patient admitted / discharged? Hospital course, mention meds given and route, prescriptions, significant lab abnormalities, going to OR and other pertinent info. @Transfer to [facility]- this is a 79-year-old female history as above, presenting for sudden onset right-sided abdominal pain and swelling that began yesterday afternoon. On my assessment patient is uncomfortable appearing laying on her left side. Right side of the abdomen is distended and firm to palpation, bedside ultrasound appeared to show possible bowel loops within the area however exam is limited due to patient's positioning. High suspicion for possible bowel obstruction secondary to volvulus versus hernia, reviewed patient's most recent lab work from her recent admission GFR is 42 with previously being in the 30s at this point we will withhold IV contrast so not has not having to await labs in order to expidite CT scan. CT Ab/ pelvis without contrast will be performed along with comprehensive labs, chest x-ray BNP, troponin, EKG due to patient's shortness of breath, urinalysis; gentle fluid resuscitation secondary to CHF, pain control. Hemoglobin 12.5, previously on 01/17/2025 was 12.9 appears stable overall I was called to CT scanner regarding CT findings that appeared to show abdominal wall hematoma, at this point ordered contrast to further evaluate for active contrast extravasation benefit of identifying active bleed outweighs theoretical risk of HEENA at this point. Discussed CT findings with general surgeon Dr. Paulino, recommends transfer to facility with interventional radiology. Updated patient and to findings and need for transfer, her blood pressure remained stable with a MAP of 88, pain is controlled unless she moves. Discussed with her applying abdominal binder and plan for transfer. Patient agreeable w/ plan of care. Case discussed w/ Dr. Reyes, [facility], kindly accepts patient for transfer. Patient transferred in stable condition. Undiagnosed new problem with uncertain prognosis? @ -No Drug Therapy requiring intensive monitoring for toxicity (Heparin, Nitro, Insulin, Cardizem)? @ -No Were any procedures done? @ -No Diagnosis/symptom? @Abdominal wall hematoma Acute, or Chronic, or Acute on Chronic? @Acute Uncomplicated (without systemic symptoms) or Complicated (systemic symptoms)? @Complicated Side effects of treatment? @ -No Exacerbation, Progression, or Severe Exacerbation? @ -No Poses a threat to life or bodily function? How? (Chest pain, [place], [place], pneumonia, PE, COPD, DKA, ARF, appy, cholecystitis, CVA, Diverticulitis, Homicidal, Suicidal, threat to staff... and all critical care pts) @Yes, if left unaddressed could lead to life threatening hemorrhage and - Lab Data Result diagrams: 01/21/25 02:53 01/21/25 02:53 Lab Results 01/21/25 01/21/25 01/21/25 Range/Units 02:53 02:53 02:53 WBC 16.7 H (3.8-10.6) k/uL RBC 4.13 (3.80-5.40) m/uL Hgb 12.5 (11.4-16.0) gm/dL Hct 38.2 (34.0-46.0) % MCV 92.5 (80.0-100.0) fL MCH 30.2 (25.0-35.0) pg MCHC 32.6 (31.0-37.0) g/dL RDW 16.2 H (11.5-15.5) % Plt Count 275 (150-450) k/uL MPV 7.6 Neutrophils % 84 % Lymphocytes % 8 % Monocytes % 7 % Eosinophils % 0 % Basophils % 0 % Neutrophils # 14.0 H (1.3-7.7) k/uL Lymphocytes # 1.3 (1.0-4.8) k/uL Monocytes # 1.2 H (0-1.0) k/uL Eosinophils # 0.0 (0-0.7) k/uL Basophils # 0.0 (0-0.2) k/uL Anisocytosis Slight PT (10.0-12.5) sec INR (<1.2) APTT (22.0-30.0) sec Sodium 137 (137-145) mmol/L Potassium 4.0 (3.5-5.1) mmol/L Chloride 101 (98-107) mmol/L Carbon Dioxide 30 (22-30) mmol/L Anion Gap 6 mmol/L BUN 45 H (7-17) mg/dL Creatinine 1.20 H (0.52-1.04) mg/dL Est GFR (CKD-EPI)AfAm 50 (>60 ml/min/1.73 sqM) Est GFR (CKD-EPI)NonAf 43 (>60 ml/min/1.73 sqM) Glucose 126 H (74-99) mg/dL Lactic Ac Sepsis Rflx Plasma Lactic Acid Chris (0.7-2.0) mmol/L Calcium 8.7 (8.4-10.2) mg/dL Total Bilirubin 0.7 (0.2-1.3) mg/dL AST 32 (14-36) U/L ALT 37 H (4-34) U/L Alkaline Phosphatase 59 (38-126) U/L Troponin I 0.022 (0.000-0.034) ng/mL NT-Pro-B Natriuret Pep 4190 pg/mL Total Protein 5.9 L (6.3-8.2) g/dL Albumin 3.4 L (3.5-5.0) g/dL Amylase 61 (30-110) U/L Lipase 57 (23-300) U/L Blood Type Blood Type Recheck Bld Type Recheck Status Antibody Screen Spec Expiration Date 01/21/25 01/21/25 01/21/25 Range/Units 02:53 02:53 03:40 WBC (3.8-10.6) k/uL RBC (3.80-5.40) m/uL Hgb (11.4-16.0) gm/dL Hct (34.0-46.0) % MCV (80.0-100.0) fL MCH (25.0-35.0) pg MCHC (31.0-37.0) g/dL RDW (11.5-15.5) % Plt Count (150-450) k/uL MPV Neutrophils % % Lymphocytes % % Monocytes % % Eosinophils % % Basophils % % Neutrophils # (1.3-7.7) k/uL Lymphocytes # (1.0-4.8) k/uL Monocytes # (0-1.0) k/uL Eosinophils # (0-0.7) k/uL Basophils # (0-0.2) k/uL Anisocytosis PT 31.2 H (10.0-12.5) sec INR 3.1 H (<1.2) APTT 27.0 (22.0-30.0) sec Sodium (137-145) mmol/L Potassium (3.5-5.1) mmol/L Chloride (98-107) mmol/L Carbon Dioxide (22-30) mmol/L Anion Gap mmol/L BUN (7-17) mg/dL Creatinine (0.52-1.04) mg/dL Est GFR (CKD-EPI)AfAm (>60 ml/min/1.73 sqM) Est GFR (CKD-EPI)NonAf (>60 ml/min/1.73 sqM) Glucose (74-99) mg/dL Lactic Ac Sepsis Rflx Plasma Lactic Acid Chris 2.9 H* (0.7-2.0) mmol/L Calcium (8.4-10.2) mg/dL Total Bilirubin (0.2-1.3) mg/dL AST (14-36) U/L ALT (4-34) U/L Alkaline Phosphatase (38-126) U/L Troponin I (0.000-0.034) ng/mL NT-Pro-B Natriuret Pep pg/mL Total Protein (6.3-8.2) g/dL Albumin (3.5-5.0) g/dL Amylase (30-110) U/L Lipase (23-300) U/L Blood Type A Negative Blood Type Recheck A Neg Bld Type Recheck Status No Antibody Screen NEGATIVE Spec Expiration Date 01/24/2025 - 233901/21/25 Range/Units 04:48 WBC (3.8-10.6) k/uL RBC (3.80-5.40) m/uL Hgb (11.4-16.0) gm/dL Hct (34.0-46.0) % MCV (80.0-100.0) fL MCH (25.0-35.0) pg MCHC (31.0-37.0) g/dL RDW (11.5-15.5) % Plt Count (150-450) k/uL MPV Neutrophils % % Lymphocytes % % Monocytes % % Eosinophils % % Basophils % % Neutrophils # (1.3-7.7) k/uL Lymphocytes # (1.0-4.8) k/uL Monocytes # (0-1.0) k/uL Eosinophils # (0-0.7) k/uL Basophils # (0-0.2) k/uL Anisocytosis PT (10.0-12.5) sec INR (<1.2) APTT (22.0-30.0) sec Sodium (137-145) mmol/L Potassium (3.5-5.1) mmol/L Chloride (98-107) mmol/L Carbon Dioxide (22-30) mmol/L Anion Gap mmol/L BUN (7-17) mg/dL Creatinine (0.52-1.04) mg/dL Est GFR (CKD-EPI)AfAm (>60 ml/min/1.73 sqM) Est GFR (CKD-EPI)NonAf (>60 ml/min/1.73 sqM) Glucose (74-99) mg/dL Lactic Ac Sepsis Rflx Y Plasma Lactic Acid Chris (0.7-2.0) mmol/L Calcium (8.4-10.2) mg/dL Total Bilirubin (0.2-1.3) mg/dL AST (14-36) U/L ALT (4-34) U/L Alkaline Phosphatase (38-126) U/L Troponin I (0.000-0.034) ng/mL NT-Pro-B Natriuret Pep pg/mL Total Protein (6.3-8.2) g/dL Albumin (3.5-5.0) g/dL Amylase (30-110) U/L Lipase (23-300) U/L Blood Type Blood Type Recheck Bld Type Recheck Status Antibody Screen Spec Expiration Date Disposition Clinical Impression: Abdominal wall hematoma Disposition: OTHER INSTITUTION NOT DEFINED Condition: Stable Referrals: Dex Mcneal MD [Primary Care Provider] - 1-2 days - Out of Hospital Transfer - Req. Specs Out of Hospital Transfer - Requested Specifics: Other Emergency Center ([facility])
[2025-01-21] MEDS: HYDROmorphone 0.5 MG/0.5 ML SYRINGE IVP STA (03:07)
[2025-01-21 03:26] LABS: ALT 37 U/L (4-34); African American GFR (CKD) 50 (>60 ml/min/1.73 sqM); Albumin 3.4 g/dL (3.5-5.0); Amylase 61 U/L (30-110); Anion Gap 6 mmol/L; Blood Urea Nitrogen 45 mg/dL (7-17); Calcium 8.7 mg/dL (8.4-10.2); Carbon Dioxide 30 mmol/L (22-30); Chloride 101 mmol/L (98-107); Glucose 126 mg/dL (74-99); Lipase 57 U/L (23-300); Non-African American GFR(CKD) 43 (>60 ml/min/1.73 sqM); Sodium 137 mmol/L (137-145); Total Bilirubin 0.7 mg/dL (0.2-1.3); Total Protein 5.9 g/dL (6.3-8.2)
[2025-01-21 03:31] LABS: INR 3.1 (<1.2); Prothrombin Time 31.2 sec (10.0-12.5)
[2025-01-21 03:35] LABS: NT-Pro-B-Type Natriuretic Pept 4190 pg/mL
[2025-01-21 03:37] LABS: Anisocytosis Slight; Basophils % (A) 0 %; Eosinophils % (A) 0 %; HCT 38.2 % (34.0-46.0); HGB 12.5 gm/dL (11.4-16.0); Lymphocytes # (A) 1.3 k/uL (1.0-4.8); Lymphocytes % (A) 8 %; MCH 30.2 pg (25.0-35.0); MCHC 32.6 g/dL (31.0-37.0); MCV 92.5 fL (80.0-100.0); Mean Platelet Volume 7.6; Monocytes # (A) 1.2 k/uL (0-1.0); Monocytes % (A) 7 %; Neutrophils % (A) 84 %; Platelet Count 275 k/uL (150-450); RBC 4.13 m/uL (3.80-5.40); RDW 16.2 % (11.5-15.5); WBC 16.7 k/uL (3.8-10.6)
[2025-01-21 03:50] LABS: AST 32 U/L (14-36); Alkaline Phosphatase 59 U/L (38-126)
--- NOTE | 2025-01-21 03:53 | CT ---
EXAM: CT Abdomen and Pelvis Without Intravenous Contrast CLINICAL HISTORY: sudden R. Abdominal pain w/ swelling, suspect obst TECHNIQUE: Axial computed tomography images of the abdomen and pelvis without intravenous contrast. Coronal and sagittal reconstructions are performed. CTDI is 39.4 mGy and DLP is 2020.2 mGy-cm. This CT exam was performed using one or more of the following dose reduction techniques: automated exposure control, adjustment of the mA and/or kV according to patient size, and/or use of iterative reconstruction technique. 1212 images COMPARISON: 01-24-2023. FINDINGS: Lung bases: Unremarkable. No mass. No consolidation. Heart: Mild cardiomegaly. ABDOMEN: Liver: 1 cm hypodensity in left lobe of the liver, unchanged, too small to characterize. Gallbladder and bile ducts: Mild intra-and extrahepatic biliary duct dilatation is likely due to patient's age and cholecystectomy, unchanged. Pancreas: Unremarkable. No ductal dilation. Spleen: Unremarkable. No splenomegaly. Adrenals: Unremarkable. No mass. Kidneys and ureters: Bilateral Renal cortical thinning. Bilateral renal cysts. Largest is on the right, measuring up to 3.5 cm. 11 mm nonobstructing right renal stone. 3 mm nonobstructing lower pole left renal stone. Stomach and bowel: Unremarkable. No obstruction. No mucosal thickening. PELVIS: Appendix: No findings to suggest acute appendicitis. Bladder: Unremarkable. No stones. Reproductive: Bilobulated left adnexal cyst measuring about 2.4 x 3.6 cm, similar on the prior study. ABDOMEN and PELVIS: Intraperitoneal space: Unremarkable. No free air. No significant fluid collection. Bones/joints: Osteopenia. Moderate degenerative changes. Posterior lumbar fusion from L3-S1. Associated laminectomies. Total right hip replacement prostheses. Soft tissues: Large interfascial versus intramuscular hematoma of lateral right abdominal/pelvic wall, measuring about 14 cm transverse, 6 cm AP, and 18 cm craniocaudal, with active extravasations, most prominent in the superior aspect, best seen on series 202 image 34. Mild anasarca. Vasculature: Unremarkable. No abdominal aortic aneurysm. Lymph nodes: Unremarkable. No enlarged lymph nodes. IMPRESSION: 1. Large interfascial versus intramuscular hematoma of lateral right abdominal/pelvic wall, measuring about 14 cm transverse, 6 cm AP, and 18 cm craniocaudal, with active bleed, most prominent in the superior aspect. 2. Bilateral renal cysts and nonobstructing stones. 3. Mild anasarca. <MYCVCSECTION> Communications: 01/21/25 03:55 Verify Receipt Verified receipt with Dr. Hartman on 01/21 03:56 (-04:00)
[2025-01-21] MEDS ORDERED: Kcentra / Balfaxar PER PHARMACY 1 EACH MISC MISCELLANE PRN (03:57)
--- NOTE | 2025-01-21 04:08 | XR ---
EXAM: XR Chest, 1 View CLINICAL HISTORY: RLQ edema. Sudden R. abdominal pain w/ swelling, suspect obst. Pt presents to ER with complaints of shortness of breath throughout the day. Hx of asthma, used inhaler without relief. H/O RODS + CAGES IN BACK, RIGHT HIP REPLACEMENT, PARTIAL THYROIDECTOMY, BILATERAL KNEE REPLACEMENTS, NECK SURGERY WITH LIDIA AND CAGES, MELANOMA REMOVED FROM FACE X4, REPAIR OF HEMATOMA/FEMORAL ARTERY AFTER HEART CATHETERIZATION TECHNIQUE: Frontal view of the chest. COMPARISON: 12/09/2022 FINDINGS: Lungs: Unremarkable. No consolidation. Pleural space: Unremarkable. Mediastinum: Cardiomegaly. Normal mediastinal contour. Bones/joints: No acute findings. ACDF IMPRESSION: No acute findings
[2025-01-21] MEDS: PHYTONADIONE 5 MG in SODIUM CHLORIDE 0.9% 50 ML IVPB STA (04:11)
[2025-01-21] MEDS: PHYTONADIONE 10 MG in SODIUM CHLORIDE 0.9% 50 ML IVPB ONE (04:31)
[2025-01-21 04:39] VITALS: TEMP 97.7
[2025-01-21] MEDS: HYDROmorphone 1 MG/ML 1 ML SYRINGE IVP STA ×2 (04:43→05:40)
[2025-01-21 04:54] VITALS: BP 137/68; PULSE 96; RESP 17
== END 2025-01-21 05:48 | disposition other institution (70) ==
LOC: EC 02:10
DX: S30.1XXA Contusion of abdominal wall, initial encounter (principal); I48.91 Unspecified atrial fibrillation; I11.0 Hypertensive heart disease with heart failure; Z88.0 Allergy status to penicillin; Z88.1 Allergy status to other antibiotic agents; Z88.2 Allergy status to sulfonamides; Z88.5 Allergy status to narcotic agent; Z88.6 Allergy status to analgesic agent; Z88.7 Allergy status to serum and vaccine; Z91.011 Allergy to milk products; Z91.018 Allergy to other foods; Z88.8 Allergy status to other drugs, medicaments and biological substances; X58.XXXA Exposure to other specified factors, initial encounter
CPT/HCPCS: 36415; 93005; 86900; 86901; 83880; 80053; 82150; 83605; 83690; 84484; 85025; 85610; 85730; 86850; 71045; 74178; 99291; 96365; 96368; 96375; 96376; 96361; J3430; J2405; J1171 ×2; Q9967; J7165

== ENCOUNTER 2025-02-12 17:35 | Inpatient (IN) | payer MEDICARE, BC ==
--- NOTE | 2025-02-12 18:07 | ED ---
General Adult HPI - General Chief complaint: Abdominal Pain Stated complaint: weakness Time Seen by Provider: 02/12/25 17:44 Source: patient, EMS, RN notes reviewed Mode of arrival: EMS Limitations: no limitations - History of Present Illness Initial comments: 79-year-old female presents to the emergency department for evaluation of weakness and shortness of breath. Patient states that she recently had surgery about 2 weeks ago for an intra-abdominal hematoma. She states that this was caused by coughing. She was transferred to [facility] and had surgery performed. She states that she was in [facility] for rehabilitation and discharged on Tuesday. She states that she was doing well until last night. She notes that she started having some difficulty catching her breath last night. She denies any known fever, chills. She reports that her abdomen feels sore but there is no significant pain. She denies any chest pain. She notes feeling weak overall. - Related Data Home Medications Medication Instructions Recorded Confirmed Pantoprazole Sodium [Protonix] 40 mg PO BID 05/14/14 02/13/25 Cyanocobalamin (Vitamin B-12) 1,000 mcg PO DAILY 06/16/22 02/13/25 [Vitamin B-12] Warfarin Sodium 2 mg PO SUMOTUWESA@209912/07/22 02/13/25 Warfarin Sodium 8 mg PO THFR@209901/25/23 02/13/25 DULoxetine HCL [Cymbalta] 60 mg PO DAILY 07/27/23 02/13/25 Albuterol Inhaler [Ventolin Hfa 2 puff INHALATION RT-Q6H PRN 12/22/23 02/13/25 Inhaler] Cholecalciferol (Vitamin D3) 50 mcg PO DAILY 12/22/23 02/13/25 [Vitamin D3 (50 Mcg = 2000 Iu)] Ipratropium-Albuterol Nebulize 3 ml INHALATION RT-QID 01/12/25 02/13/25 [Duoneb 0.5 mg-3 mg/3 ml Soln] Metoprolol Tartrate [Lopressor] 12.5 mg PO BID 01/12/25 02/13/25 calcitrioL [Rocaltrol] 0.25 mcg PO MOTH 01/12/25 02/13/25 estradioL [Estrace] 1 mg PO DAILY 01/12/25 02/13/25 Previous Rx's Medication Instructions Recorded Pregabalin [Lyrica] 100 mg PO BID #6 cap 08/04/23 Atorvastatin [Lipitor] 40 mg PO HS #90 tab 12/25/23 Clopidogrel [Plavix] 75 mg PO DAILY #90 tab 01/06/24 Isosorbide Mononitrate ER [Imdur] 30 mg PO DAILY #90 tab 01/06/24 Furosemide [Lasix] 40 mg PO DAILY 30 Days #30 tab 05/08/24 Benzonatate [Tessalon Perles] 200 mg PO TID PRN #30 cap 01/18/25 Budesonide-Formot 160-4.5 Mcg 2 puff INHALATION RT-BID #2 each 01/18/25 [Symbicort 160-4.5 Mcg Inhaler] Montelukast [Singulair] 10 mg PO HS #30 tab 01/18/25 Allergies Allergy/AdvReac Type Severity Reaction Status Date / Time garlic Allergy Intermediate Swelling Verified 02/13/25 08:29 cephalexin monohydrate Allergy Rash/Hives Verified 02/13/25 08:29 [From Keflex] diphenhydramine HCl Allergy SWELLING Verified 02/13/25 08:29 [From Benadryl] OF TONGUE, SOB enoxaparin [From Lovenox] Allergy Rash/Hives Verified 02/13/25 08:29 Penicillins Allergy SWELLING, Verified 02/13/25 08:29 HIVES sulfamethoxazole Allergy Anaphylaxis, Verified 02/13/25 08:29 [From Bactrim] Swelling trimethoprim [From Bactrim] Allergy Anaphylaxis, Verified 02/13/25 08:29 Swelling aspirin AdvReac EXCESS Verified 02/13/25 08:29 BLEEDING milk AdvReac Abdominal Verified 02/13/25 08:29 Pain morphine AdvReac Vomiting Verified 02/13/25 08:29 milk chocolate AdvReac Nausea Uncoded 02/12/25 17:47 Review of Systems ROS Statement: Those systems with pertinent positive or pertinent negative responses have been documented in the HPI. ROS Other: All systems not noted in ROS Statement are negative. Past Medical History Past Medical History: Atrial Flutter, Asthma, Cancer, COPD, CVA/TIA, GERD/Reflux, GI Bleed, Hyperlipidemia, Hypertension, Memory Impairment, Myocardial Infarction (CT), Osteoarthritis (OA), Renal Disease, Rheumatoid Arthritis (RA) Additional Past Medical History / Comment(s): Chronic cough. Back pain, migraines. residual from stroke,Occasional slight difficulty with swallowing. Hx gastic ulcer, H-Pylori, diverticulitis, hx melanoma on face X2. Hx kidney stones, "kidney function low", raynauds disease. recent stress test at Dr Castorena's office pt had chest pain-transferred to hospital heart cath unable to place stent at that time per pt. Last Myocardial Infarction Date:: 2012 History of Any Multi-Drug Resistant Organisms: None Reported Past Surgical History: Back Surgery, Cholecystectomy, Heart Catheterization, Hysterectomy, Joint Replacement, Orthopedic Surgery Additional Past Surgical History / Comment(s): RODS & CAGES IN BACK, RIGHT HIP REPLACEMENT, PARTIAL THYROIDECTOMY, BILATERAL KNEE REPLACEMENTS, NECK SURGERY WITH LIDIA AND CAGES, MELANOMA REMOVED FROM FACE X4, REPAIR OF HEMATOMA/FEMORAL ARTERY AFTER HEART CATHETERIZATION,rt foot bone spur removed Past Anesthesia/Blood Transfusion Reactions: Previous Problems w/ Anesthesia, Postoperative Nausea & Vomiting (PONV) Additional Past Anesthesia/Blood Transfusion Reaction / Comment(s): Hard to wake up. Past Psychological History: No Psychological Hx Reported Smoking Status: Never smoker Past Alcohol Use History: None Reported Past Drug Use History: None Reported - Past Family History Sister(s) Family Medical History: Cancer Brother(s) Family Medical History: Cancer Mother Family Medical History: Myocardial Infarction (CT) Additional Family Medical History / Comment(s): Mother of a CT at the age of 76yrs. Father History Unknown: Yes Family Medical History: Chest Pain / Angina General Exam Limitations: no limitations General appearance: alert, in no apparent distress Head exam: Present: atraumatic, normocephalic, normal inspection Eye exam: Present: normal appearance, PERRL, EOMI. Absent: scleral icterus, conjunctival injection, periorbital swelling ENT exam: Present: normal exam, mucous membranes moist Neck exam: Present: normal inspection. Absent: tenderness, meningismus, lymphadenopathy Respiratory exam: Present: normal lung sounds bilaterally. Absent: respiratory distress, wheezes, rales, rhonchi, stridor Cardiovascular Exam: Present: regular rate, normal rhythm, normal heart sounds. Absent: systolic murmur, diastolic murmur, rubs, gallop, clicks GI/Abdominal exam: Present: distended (Right-sided abdominal distention), normal bowel sounds. Absent: tenderness, guarding, rebound, rigid Extremities exam: Present: normal inspection, full ROM, normal capillary refill. Absent: tenderness, pedal edema, joint swelling, calf tenderness Back exam: Present: normal inspection Neurological exam: Present: alert, oriented X3 Psychiatric exam: Present: normal affect, normal mood Skin exam: Present: warm, dry, intact, normal color. Absent: rash Course Vital Signs 02/12/25 02/12/25 02/12/25 17:41 20:01 21:03 Temperature 97.7 F Pulse Rate 103 H 104 H 113 H Respiratory 24 19 19 Rate Blood Pressure 129/86 129/76 115/79 O2 Sat by Pulse 95 98 98 Oximetry 02/12/25 02/12/25 02/12/25 21:43 22:37 23:58 Temperature Pulse Rate 106 H 114 H 93 Respiratory 18 18 19 Rate Blood Pressure 137/91 134/74 O2 Sat by Pulse 98 99 100 Oximetry 02/13/25 02/13/25 02/13/25 02:00 04:00 06:00 Temperature Pulse Rate 101 H 88 94 Respiratory 18 16 18 Rate Blood Pressure 124/73 118/73 137/82 O2 Sat by Pulse 99 99 99 Oximetry 02/13/25 02/13/25 02/13/25 08:00 08:03 08:04 Temperature 97.7 F Pulse Rate 98 132 H Respiratory 18 Rate Blood Pressure 125/88 O2 Sat by Pulse 98 96 Oximetry 02/13/25 02/13/25 02/13/25 09:30 10:00 11:59 Temperature Pulse Rate 92 92 80 Respiratory 20 20 Rate Blood Pressure 136/81 118/82 O2 Sat by Pulse 98 98 Oximetry 02/13/25 02/13/25 12:07 13:44 Temperature 98.0 F Pulse Rate 79 99 Respiratory 18 Rate Blood Pressure 113/76 O2 Sat by Pulse 96 Oximetry Medical Decision Making - Medical Decision Making Was pt. sent in by a medical professional or institution (Dr. PA, RURAL SOCIOLOGIST, urgent care, hospital, or longterm...) When possible be specific @ -No Did you speak to anyone other than the patient for history (EMS, parent, family, police, friend...)? What history was obtained from this source @ -No Did you review nursing and triage notes (agree or disagree)? Why? @ -I reviewed and agree with nursing and triage notes Were old charts reviewed (outside hosp., previous admission, EMS record, old EKG, old radiological studies, urgent care reports/EKG's, longterm records)? Report findings @ -No old charts were reviewed Differential Diagnosis (chest pain, altered mental status, abdominal pain women, abdominal pain men, vaginal bleeding, weakness, fever, dyspnea, syncope, head ache, dizziness, GI bleed, back pain, seizure, CVA, palpatations, mental health, musculoskeletal)? @ -Differential Dyspnea: Coronary syndrome, arrhythmia, tamponade, asthma, COPD, pulmonary embolism, pneumonia, pneumothorax, pulmonary effusion, anaphylaxis, diabetic ketoacidosis, flailed chest, pulmonary contusion, diaphragmatic rupture, anemia, neuromuscular, this is not meant to be an all-inclusive list. EKG interpreted by me (3pts min.). @ -EKG@A-fib with RVR rate of 106, QRS 147, QTQTc [id number] X-rays interpreted by me (1pt min.). @ -Chest x-ray reveals right lower lobe infiltrate CT interpreted by me (1pt min.). @ -CTA of the chest reveals no evidence of acute PE, small density in the posterior right lung infiltrate or mass should be considered U/S interpreted by me (1pt. min.). @ -None done What testing was considered but not performed or refused? (CT, X-rays, U/S, labs)? Why? @ -None What meds were considered but not given or refused? Why? @ -None Did you discuss the management of the patient with other professionals (professionals i.e. , PA, RURAL SOCIOLOGIST, lab, RT, psych nurse, social work professor, ornamental iron worker, teacher, security officer, case management associate)? Give summary @ -Management discussed with Dr. Skinner with [facility] who is accepting of the admission Was smoking cessation discussed for >3mins.? @ -No Was critical care preformed (if so, how long)? @ -No Were there social determinants of health that impacted care today? How? (Homelessness, low income, unemployed, alcoholism, drug addiction, transportation, low edu. Level, literacy, decrease access to med. care, retirement, rehab)? @ -No Was there de-escalation of care discussed even if they declined (Discuss DNR or withdrawal of care, Hospice)? DNR status @ -No What co-morbidities impacted this encounter? (DM, HTN, Smoking, COPD, CAD, Cancer, CVA, ARF, Chemo, Hep., AIDS, mental health diagnosis, sleep apnea, morbid obesity)? @ -None Was patient admitted / discharged? Hospital course, mention meds given and route, prescriptions, significant lab abnormalities, going to OR and other pertinent info. @ -Admitted. Patient presented the emergency department for evaluation of shortness of breath. Patient had recent surgery on her abdomen. She has been off of her blood thinners because of this.Laboratory studies obtained revealing no significant leukocytosis, hemoglobin 9.8; normal coagulation studies; patient has elevated BNP at 14,000, elevated troponin at 0.081 which is likely due to the CHF. Chest x-ray obtained revealing a right sided infiltrate or mass. CTA reveals similar findings and no evidence of PE. Patient states that this is a known area in her lung. She does not have any symptoms to correlate for pneumonia. Patient will be admitted for CHF exacerbation with cardiology consul [facility]. The case was discussed with [facility] who is accepting of the admission. Case discussed with Dr. Suárez Undiagnosed new problem with uncertain prognosis? @ -No Drug Therapy requiring intensive monitoring for toxicity (Heparin, Nitro, Insulin, Cardizem)? @ -No Were any procedures done? @ -No Diagnosis/symptom? @ -CHF exacerbation Acute, or Chronic, or Acute on Chronic? @ -Acute Uncomplicated (without systemic symptoms) or Complicated (systemic symptoms)? @ -Uncomplicated Side effects of treatment? @ -No Exacerbation, Progression, or Severe Exacerbation? @ -No Poses a threat to life or bodily function? How? (Chest pain, USA, CT, pneumonia, PE, COPD, DKA, ARF, appy, cholecystitis, CVA, Diverticulitis, Homicidal, Suicidal, threat to staff... and all critical care pts) @ -No - Lab Data Result diagrams: 02/15/25 06:14 02/15/25 14:15 Lab Results 02/12/25 02/12/25 02/12/25 Range/Units 18:24 18:24 18:24 WBC 8.12 (4.50-10.00) 10*3/uL RBC 3.08 L (4.10-5.20) 10*6/uL Hgb 9.8 L (12.0-15.0) g/dL Hct 30.0 L (37.2-46.3) % MCV 97.4 H (80.0-97.0) fL MCH 31.8 (27.0-32.0) pg MCHC 32.7 (32.0-37.0) g/dL Plt Count 384 (140-440) 10*3/uL MPV 9.8 (9.5-12.2) fL Immature Gran % (Auto) 1.1 % Neutrophils % 76.6 % Lymphocytes % 12.1 % Monocytes % 8.1 % Eosinophils % 1.4 % Basophils % 0.7 % Immature Gran # 0.09 H (0.00-0.04) 10*3/uL Neutrophils # 6.22 (1.80-7.70) 10*3/uL Lymphocytes # 0.98 (0.90-5.00) 10*3/uL Monocytes # 0.66 (0.20-1.00) 10*3/uL Eosinophils # 0.11 (0.04-0.35) 10*3/uL Basophils # 0.06 (0.00-0.10) 10*3/uL ESR 23 (0-30) mm/Hr PT (10.0-12.5) sec INR (<1.2) APTT (22.0-30.0) sec Sodium 139 (137-145) mmol/L Potassium 3.5 (3.5-5.1) mmol/L Chloride 110 H (98-107) mmol/L Carbon Dioxide 21 L (22-30) mmol/L Anion Gap 8 mmol/L BUN 16 (7-17) mg/dL Creatinine 0.84 (0.52-1.04) mg/dL Est GFR (CKD-EPI)AfAm 76 (>60 ml/min/1.73 sqM) Est GFR (CKD-EPI)NonAf 66 (>60 ml/min/1.73 sqM) Glucose 105 H (74-99) mg/dL Calcium 9.3 (8.4-10.2) mg/dL Total Bilirubin 1.9 H (0.2-1.3) mg/dL AST 37 H (14-36) U/L ALT 21 (4-34) U/L Alkaline Phosphatase 95 (38-126) U/L Troponin I (0.000-0.034) ng/mL C-Reactive Protein (<1.0) mg/dL NT-Pro-B Natriuret Pep 96812 pg/mL Total Protein 6.2 L (6.3-8.2) g/dL Albumin 3.5 (3.5-5.0) g/dL Procalcitonin (0.02-0.50) ng/mL 02/12/25 02/12/25 02/12/25 Range/Units 18:24 18:52 18:52 WBC (4.50-10.00) 10*3/uL RBC (4.10-5.20) 10*6/uL Hgb (12.0-15.0) g/dL Hct (37.2-46.3) % MCV (80.0-97.0) fL MCH (27.0-32.0) pg MCHC (32.0-37.0) g/dL Plt Count (140-440) 10*3/uL MPV (9.5-12.2) fL Immature Gran % (Auto) % Neutrophils % % Lymphocytes % % Monocytes % % Eosinophils % % Basophils % % Immature Gran # (0.00-0.04) 10*3/uL Neutrophils # (1.80-7.70) 10*3/uL Lymphocytes # (0.90-5.00) 10*3/uL Monocytes # (0.20-1.00) 10*3/uL Eosinophils # (0.04-0.35) 10*3/uL Basophils # (0.00-0.10) 10*3/uL ESR (0-30) mm/Hr PT 11.0 (10.0-12.5) sec INR 1.0 (<1.2) APTT 21.2 L (22.0-30.0) sec Sodium (137-145) mmol/L Potassium (3.5-5.1) mmol/L Chloride (98-107) mmol/L Carbon Dioxide (22-30) mmol/L Anion Gap mmol/L BUN (7-17) mg/dL Creatinine (0.52-1.04) mg/dL Est GFR (CKD-EPI)AfAm (>60 ml/min/1.73 sqM) Est GFR (CKD-EPI)NonAf (>60 ml/min/1.73 sqM) Glucose (74-99) mg/dL Calcium (8.4-10.2) mg/dL Total Bilirubin (0.2-1.3) mg/dL AST (14-36) U/L ALT (4-34) U/L Alkaline Phosphatase (38-126) U/L Troponin I 0.081 H* (0.000-0.034) ng/mL C-Reactive Protein 2.8 H (<1.0) mg/dL NT-Pro-B Natriuret Pep pg/mL Total Protein (6.3-8.2) g/dL Albumin (3.5-5.0) g/dL Procalcitonin (0.02-0.50) ng/mL 02/12/25 02/13/25 02/13/25 Range/Units 23:44 03:19 03:19 WBC (4.50-10.00) 10*3/uL RBC (4.10-5.20) 10*6/uL Hgb (12.0-15.0) g/dL Hct (37.2-46.3) % MCV (80.0-97.0) fL MCH (27.0-32.0) pg MCHC (32.0-37.0) g/dL Plt Count (140-440) 10*3/uL MPV (9.5-12.2) fL Immature Gran % (Auto) % Neutrophils % % Lymphocytes % % Monocytes % % Eosinophils % % Basophils % % Immature Gran # (0.00-0.04) 10*3/uL Neutrophils # (1.80-7.70) 10*3/uL Lymphocytes # (0.90-5.00) 10*3/uL Monocytes # (0.20-1.00) 10*3/uL Eosinophils # (0.04-0.35) 10*3/uL Basophils # (0.00-0.10) 10*3/uL ESR (0-30) mm/Hr PT (10.0-12.5) sec INR (<1.2) APTT (22.0-30.0) sec Sodium (137-145) mmol/L Potassium (3.5-5.1) mmol/L Chloride (98-107) mmol/L Carbon Dioxide (22-30) mmol/L Anion Gap mmol/L BUN (7-17) mg/dL Creatinine (0.52-1.04) mg/dL Est GFR (CKD-EPI)AfAm (>60 ml/min/1.73 sqM) Est GFR (CKD-EPI)NonAf (>60 ml/min/1.73 sqM) Glucose (74-99) mg/dL Calcium (8.4-10.2) mg/dL Total Bilirubin (0.2-1.3) mg/dL AST (14-36) U/L ALT (4-34) U/L Alkaline Phosphatase (38-126) U/L Troponin I 0.104 H* 0.101 H* (0.000-0.034) ng/mL C-Reactive Protein (<1.0) mg/dL NT-Pro-B Natriuret Pep pg/mL Total Protein (6.3-8.2) g/dL Albumin (3.5-5.0) g/dL Procalcitonin <0.20 (0.02-0.50) ng/mL Disposition Clinical Impression: CHF exacerbation Disposition: ADMITTED IP TO THIS [facility] Condition: Stable Is patient prescribed a controlled substance at d/c from ED?: No
[2025-02-12 18:33] LABS: Basophils # (A) 0.06 10*3/uL (0.00-0.10); Basophils % (A) 0.7 %; Eosinophils # (A) 0.11 10*3/uL (0.04-0.35); Eosinophils % (A) 1.4 %; HGB 9.8 g/dL (12.0-15.0); Lymphocytes # (A) 0.98 10*3/uL (0.90-5.00); Lymphocytes % (A) 12.1 %; MCH 31.8 pg (27.0-32.0); MCHC 32.7 g/dL (32.0-37.0); MCV 97.4 fL (80.0-97.0); Mean Platelet Volume 9.8 fL (9.5-12.2); Monocytes # (A) 0.66 10*3/uL (0.20-1.00); Monocytes % (A) 8.1 %; Neutrophils # (A) 6.22 10*3/uL (1.80-7.70); Neutrophils % (A) 76.6 %; Platelet Count 384 10*3/uL (140-440); RBC 3.08 10*6/uL (4.10-5.20); RDW 17.3 % (11.5-14.5); WBC 8.12 10*3/uL (4.50-10.00)
[2025-02-12] MEDS: HYDROmorphone 0.5 MG/0.5 ML SYRINGE IVP STA ×2 (18:38→22:52)
[2025-02-12 18:42] LABS: ALT 21 U/L (4-34); AST 37 U/L (14-36); African American GFR (CKD) 76 (>60 ml/min/1.73 sqM); Albumin 3.5 g/dL (3.5-5.0); Alkaline Phosphatase 95 U/L (38-126); Anion Gap 8 mmol/L; Blood Urea Nitrogen 16 mg/dL (7-17); Calcium 9.3 mg/dL (8.4-10.2); Carbon Dioxide 21 mmol/L (22-30); Chloride 110 mmol/L (98-107); Glucose 105 mg/dL (74-99); Non-African American GFR(CKD) 66 (>60 ml/min/1.73 sqM); Potassium 3.5 mmol/L (3.5-5.1); Sodium 139 mmol/L (137-145); Total Bilirubin 1.9 mg/dL (0.2-1.3); Total Protein 6.2 g/dL (6.3-8.2)
[2025-02-12 18:51] LABS: NT-Pro-B-Type Natriuretic Pept 14000 pg/mL
[2025-02-12 19:25] LABS: Partial Thromboplastin Time 21.2 sec (22.0-30.0)
--- NOTE | 2025-02-12 20:42 | XR ---
EXAMINATION TYPE: XR chest 2V DATE OF EXAM: 02/12/2025 7:02 PM COMPARISON: 01/21/2025 CLINICAL INDICATION: Female, 79 years old with history of difficulty breathing, TECHNIQUE: XR chest 2V view(s) obtained. FINDINGS: The heart size is prominent. The pulmonary vasculature is normal. Right lower lobe infiltrate is present. Correlate for pneumonia. IMPRESSION: 1. Right lower lobe infiltrate. Correlate for pneumonia. Follow-up can be performed. [facility], , 02/12/2025 8:39 PM
--- NOTE | 2025-02-12 21:25 | CT ---
EXAMINATION TYPE: CT chest angio for PE DATE OF EXAM: 02/12/2025 8:44 PM COMPARISON: None. CLINICAL INDICATION: Female, 79 years old with history of dyspnea, Patient states that she had surger y x 2 weeks ago for her chest wall. CIELO, TECHNIQUE: CT of the chest is performed on a spiral scan at 2 mm thick sections. Study is performed with intravenous contrast timed for evaluation for pulmonary embolism. This will limit additional po rtions of the evaluation. 10mm MIP images reconstructed by the technologist are reviewed on the comp uter in the coronal and sagittal planes. Contrast used:75 mL of Isovue 370 with IV Contrast, (none if empty) Oral contrast used: (none if empty) CT DLP: 338 mGycm, Automated exposure control for dose reduction was used. FINDINGS: No persistent filling defects are evident to suggest an acute pulmonary embolism. No mediastinal or hilar adenopathy enlarged by CT criteria is evident. The ascending aorta diameter at the level of the main pulmonary artery is 3.4 cm. The main pulmonary artery diameter at the bifurcation is 2.9 cm. Vague groundglass opacities are in the upper lung ren. There is a small density or infiltrate in t he posterior right lung measuring 1.5 cm. Series 401 image 82. Follow-up recommended. Small bilateral pleural effusions present. Moderate coronary artery calcifications present. Limited CT sections were through the upper abdomen. There is some reflux of contrast into the proxim al inferior vena cava from the atrium. IMPRESSION: 1. No acute pulmonary embolism. 2. Small density posterior right lung. Infiltrate such as pneumonia or a mass should be considered. F ollow-up is recommended. [facility], , 02/12/2025 9:22 PM
[2025-02-12] MEDS ORDERED: HYDROmorphone 1 MG/ML 1 ML SYRINGE IVP PRN (22:38)
[2025-02-12] MEDS ORDERED: NALOXONE 0.4 MG/ML 1 ML VIAL IV PRN (22:38)
[2025-02-12] MEDS: FUROSEMIDE 10 MG/ML 2 ML VIAL IV ONE (22:56)
--- NOTE | 2025-02-12 23:21 | P.HPIM ---
History of Present Illness H&P Date: 02/12/25 Chief Complaint: dyspnea/fever/chills Lily is a 79-year-old female with past medical history of HFrEF, CAD status post prior stenting permanent atrial fibrillation and chronic hypoxic respiratory failure on 2 L and is actually.. Of note the patient had a recent hospitalization at [facility]. At that time she had a CT abdomen pelvis that revealed abdominal wall hematoma. She was then transferred to [facility] for interventional radiology and express was discharged to rehab. In addition she was also discharged from [facility] on January 18. During the hospital course she had presented with shortness of breath and 4-day history of generalized bodyaches and pains. She was given steroids and was discharged home. During this current ER visit she expresses that she has been having worsening shortness of breath since her discharge from rehab on Tuesday. She expressed she has been compliant with her Lasix but has not been urinating as much as she used to. She does report that she has had fevers and chills. She denies any sputum production When she presented hospital she was to be tachycardic tachypneic she was hemodynamically stable and was 95% on 2 L oxygen. Lab work revealed a white blood cell count 8.12 hemoglobin is 9.8. INR was 1.0 and BMP had revealed a BNP of 14,000. Troponin 0.81. Chest x-ray revealed right lower lobe infiltrate. CTA chest had revealed no PE however there is evidence of a right posterior lobe density. In addition per my interpretation there is also a right pleural effusion Review of Systems Pertinent positives and negatives as discussed in HPI, a complete review of syst ems was performed and all other systems are negative. Past Medical History Past Medical History: Atrial Flutter, Asthma, Cancer, COPD, CVA/TIA, GERD/Reflux, GI Bleed, Hyperlipidemia, Hypertension, Memory Impairment, Myocardial Infarction (MA), Osteoarthritis (OA), Renal Disease, Rheumatoid Arthritis (RA) Additional Past Medical History / Comment(s): Chronic cough. Back pain, migraines. residual from stroke,Occasional slight difficulty with swallowing. Hx gastic ulcer, H-Pylori, diverticulitis, hx melanoma on face X2. Hx kidney st ones, "kidney function low", raynauds disease. recent stress test at Dr Castorena's office pt had chest pain-transferred to hospital heart cath unable to place stent at that time per pt. Last Myocardial Infarction Date:: 2012 History of Any Multi-Drug Resistant Organisms: None Reported Past Surgical History: Back Surgery, Cholecystectomy, Heart Catheterization, Hysterectomy, Joint Replacement, Orthopedic Surgery Additional Past Surgical History / Comment(s): RODS & CAGES IN BACK, RIGHT HIP REPLACEMENT, PARTIAL THYROIDECTOMY, BILATERAL KNEE REPLACEMENTS, NECK SURGERY WITH LIDIA AND CAGES, MELANOMA REMOVED FROM FACE X4, REPAIR OF HEMATOMA/FEMORAL ARTERY AFTER HEART CATHETERIZATION,rt foot bone spur removed Past Anesthesia/Blood Transfusion Reactions: Previous Problems w/ Anesthesia, Postoperative Nausea & Vomiting (PONV) Additional Past Anesthesia/Blood Transfusion Reaction / Comment(s): Hard to wake up. Past Psychological History: No Psychological Hx Reported Smoking Status: Never smoker Past Alcohol Use History: None Reported Past Drug Use History: None Reported - Past Family History Sister(s) Family Medical History: Cancer Brother(s) Family Medical History: Cancer Mother Family Medical History: Myocardial Infarction (MA) Additional Family Medical History / Comment(s): Mother of a MA at the age of 76yrs. Father History Unknown: Yes Family Medical History: Chest Pain / Angina Medications and Allergies Home Medications Medication Instructions Recorded Confirmed Type Pantoprazole Sodium [Protonix] 40 mg PO BID 05/14/14 01/12/25 History Cyanocobalamin (Vitamin B-12) 1,000 mcg PO DAILY 06/16/22 01/12/25 History [Vitamin B-12] Warfarin Sodium 4 mg PO TH@2100 12/07/22 01/12/25 History Warfarin Sodium 8 mg PO SUMOTUWEFRSA@2100 01/25/23 01/12/25 History DULoxetine HCL [Cymbalta] 60 mg PO DAILY 07/27/23 01/12/25 History Pregabalin [Lyrica] 100 mg PO BID #6 cap 08/04/23 01/12/25 Rx Albuterol Inhaler [Ventolin Hfa 2 puff INHALATION RT-Q6H PRN 12/22/23 01/12/25 History Inhaler] Cholecalciferol (Vitamin D3) 50 mcg PO DAILY 12/22/23 01/12/25 History [Vitamin D3 (50 Mcg = 2000 Iu)] Atorvastatin [Lipitor] 40 mg PO HS #90 tab 12/25/23 01/12/25 Rx Clopidogrel [Plavix] 75 mg PO DAILY #90 tab 01/06/24 01/12/25 Rx Isosorbide Mononitrate ER [Imdur] 30 mg PO DAILY #90 tab 01/06/24 01/12/25 Rx Empagliflozin [Jardiance] 10 mg PO DAILY 30 Days #30 tablet 05/08/24 01/12/25 Rx Furosemide [Lasix] 40 mg PO DAILY 30 Days #30 tab 05/08/24 01/12/25 Rx Azithromycin [Zithromax Z Pack] See Taper PO DIRECTED 01/12/25 01/12/25 History Ipratropium-Albuterol Nebulize 3 ml INHALATION RT-QID 01/12/25 01/12/25 History [Duoneb 0.5 mg-3 mg/3 ml Soln] Metoprolol Tartrate [Lopressor] 12.5 mg PO BID 01/12/25 01/12/25 History calcitrioL [Rocaltrol] 0.25 mcg PO DIRECTED 01/12/25 01/12/25 History estradioL [Estrace] 1 mg PO DAILY 01/12/25 01/12/25 History predniSONE [Deltasone] 20 mg PO DIRECTED 01/12/25 01/12/25 History Benzonatate [Tessalon Perles] 200 mg PO TID PRN #30 cap 01/18/25 Rx Budesonide-Formot 160-4.5 Mcg 2 puff INHALATION RT-BID #2 each 01/18/25 Rx [Symbicort 160-4.5 Mcg Inhaler] Montelukast [Singulair] 10 mg PO HS #30 tab 01/18/25 Rx guaiFENesin-Coden 100-10MG/5ML 10 ml PO Q6HR PRN #240 ml 01/18/25 Rx [Robitussin AC] predniSONE [Deltasone] See Taper PO DAILY #41 tab 01/18/25 Rx Allergies Allergy/AdvReac Type Severity Reaction Status Date / Time garlic Allergy Intermediate Swelling Verified 02/12/25 17:47 cephalexin monohydrate Allergy Rash/Hives Verified 02/12/25 17:47 [From Keflex] diphenhydramine HCl Allergy SWELLING Verified 02/12/25 17:47 [From Benadryl] OF TONGUE, SOB enoxaparin [From Lovenox] Allergy Rash/Hives Verified 02/12/25 17:47 Penicillins Allergy SWELLING, Verified 02/12/25 17:47 HIVES sulfamethoxazole Allergy Anaphylaxis, Verified 02/12/25 17:47 [From Bactrim] Swelling trimethoprim [From Bactrim] Allergy Anaphylaxis, Verified 02/12/25 17:47 Swelling aspirin AdvReac EXCESS Verified 02/12/25 17:47 BLEEDING milk AdvReac Abdominal Verified 02/12/25 17:47 Pain morphine AdvReac Vomiting Verified 02/12/25 17:47 milk chocolate AdvReac Nausea Uncoded 02/12/25 17:47 Physical Exam Vitals: Vital Signs Temp Pulse Resp BP Pulse Ox 02/12/25 22:37 114 H 18 137/91 99 02/12/25 21:43 106 H 18 98 02/12/25 21:03 113 H 19 115/79 98 02/12/25 20:01 104 H 19 129/76 98 02/12/25 17:41 97.7 F 103 H 24 129/86 95 Intake and Output 02/12/25 02/12/25 02/13/25 14:59 22:59 06:59 Other: Weight 78.471 kg General: non toxic, no distress,female Derm: warm, dry Head: atraumatic, normocephalic, symmetric Eyes: no lid lag, anicteric sclera, ENT: Nose and ears atraumatic, no thrush, no pharyngeal erythema Neck: No thyromegaly, no cervical lymphadenopathy, trachea midline, supple Mouth: no lip lesion, mucus membranes moist Cardiovascular: S1S2 reg, regular rate with irregular rhythm Lungs: clear to ascultation bilateral, on NC Abdominal: soft, nontender to palpation, no guarding, no appreciable organomegaly, normal bowel sounds Ext: no gross muscle atrophy, muscle strength muscle strength 5 out of 5 in all 4 extremities, Neuro: Moving all extremities spontaneously Psych: Alert, oriented, appropriate affect Results CBC & Chem 7: 02/12/25 18:24 02/12/25 18:24 Labs: Abnormal Lab Results - Last 24 Hours (Table) 02/12/25 02/12/25 02/12/25 Range/Units 18:24 18:24 18:52 RBC 3.08 L (4.10-5.20) 10*6/uL Hgb 9.8 L (12.0-15.0) g/dL Hct 30.0 L (37.2-46.3) % MCV 97.4 H (80.0-97.0) fL Immature Gran # 0.09 H (0.00-0.04) 10*3/uL APTT (22.0-30.0) sec Chloride 110 H (98-107) mmol/L Carbon Dioxide 21 L (22-30) mmol/L Glucose 105 H (74-99) mg/dL Total Bilirubin 1.9 H (0.2-1.3) mg/dL AST 37 H (14-36) U/L Troponin I 0.081 H* (0.000-0.034) ng/mL Total Protein 6.2 L (6.3-8.2) g/dL 02/12/25 Range/Units 18:52 RBC (4.10-5.20) 10*6/uL Hgb (12.0-15.0) g/dL Hct (37.2-46.3) % MCV (80.0-97.0) fL Immature Gran # (0.00-0.04) 10*3/uL APTT 21.2 L (22.0-30.0) sec Chloride (98-107) mmol/L Carbon Dioxide (22-30) mmol/L Glucose (74-99) mg/dL Total Bilirubin (0.2-1.3) mg/dL AST (14-36) U/L Troponin I (0.000-0.034) ng/mL Total Protein (6.3-8.2) g/dL Assessment and Plan Assessment: #) Bacterial CAP, CTA chest showing small right posterior lung infiltrate. start iv ceftriaxone/ iv azithromycin for 3 days. check sputum culture if able. check inflammatory markers. #) Acute HFrEF, last echo showing lvef of 30-35% there are b/l pleural effusions p resent on cta chest. continue iv lasix 40 mg bid. Continue GDMT with metoprolol tartrate 12.5 mg daily and jardiance 10 mg daily #) COPD with chornic hypoxic respiraotry failure on NC. Continue home symbicort inhaler bid. #) CAD s/p prior stent continue clopidrgol 75 mg daily #) atrial fibrillation, ?permenant. continue home metoprolol tartrate 12.5 mg bid for ventricular rate control. she was previously on warfarin however held given her abdominal walll hematoma #) Neuropathy continue home lyrica 100 mg BID #) Major depression continue hoem cymbalta 60 mg daily Dispo: med/surge DVT ppx: SCDS. hold heparin products given recent abdomianl wall hematoma Time with Patient: Greater than 30
[2025-02-13] MEDS: AZITHROMYCIN 500 MG in SODIUM CHLORIDE 0.9% 250 ML IVPB SCH (00:39)
[2025-02-13] MEDS: HYDROmorphone 0.5 MG/0.5 ML SYRINGE IVP PRN (05:21)
[2025-02-13] MEDS: IPRATROPIUM-ALBUTEROL 3 ML NEB INHALATION SCH (08:00)
[2025-02-13] MEDS: SYMBICORT 160-4.5 MCG INHALER INHALATION SCH (08:00)
[2025-02-13] MEDS: DAPAGLIFLOZIN PROPANEDIOL 5 MG TABLET PO SCH (09:05)
[2025-02-13] MEDS: CHOLECALCIFEROL 25 MCG (1000 IU) TABLET PO SCH (09:06)
[2025-02-13] MEDS: METOPROLOL TARTRATE 25 MG TAB PO SCH (09:06)
[2025-02-13] MEDS: PANTOPRAZOLE 40 MG TABLET PO SCH (09:07)
[2025-02-13] MEDS: PREGABALIN 100 MG CAP PO SCH (09:08)
[2025-02-13] MEDS: ISOSORBIDE MONONITRATE ER 30 MG TAB.ER.24H PO SCH (09:08)
[2025-02-13] MEDS: DULoxetine HCL 60 MG CAPSULE.DR PO SCH (09:09)
[2025-02-13] MEDS: FUROSEMIDE 10 MG/ML 4 ML VIAL IV SCH (09:11)
[2025-02-13] MEDS: CLOPIDOGREL 75 MG TAB PO SCH (09:17)
[2025-02-13] MEDS: HEPARIN SODIUM,PORCINE 5,000 UNIT/ML 1 ML VIAL SQ SCH (09:37)
--- NOTE | 2025-02-13 13:07 | P.CRDCN ---
History of Present Illness Consult date: 02/13/25 Reason for Consult (text): CHF exacerbation History of present illness: This is a 79-year-old female patient of Dr. Castorena with past medical history of coronary artery disease with prior stenting of the LAD as well as ischemic cardiomyopathy, chronic systolic heart failure, valvular heart disease, permanent atrial fibrillation, hypertension, dyslipidemia, chronic renal failure, COPD. We have been asked to evaluate the patient for CHF exacerbation. Patient states she came into the hospital due to shortness of breath. Patient has a recent history of abdominal wall hematoma initially diagnosed at [facility] on 01/21/2025 in the emergency center. Patient had undergone a CTA of the abdomen and pelvis which found intra-abdominal wall hematoma with active bleeding. Patient was on Coumadin at that time and INR 3.1. Patient was t ransferred to [facility] for further evaluation and treatment and apparently under went surgery 2 weeks ago and has been off Coumadin since. Blood pressure 118/82, heart rate 80s to 90s, pulse ox 90% on 2 L. Patient has been started on IV Lasix 40 mg every 12 hours. -EKG: Atrial fibrillation, IVCD, PVCs -Chest x-ray: Right lower lobe infiltrate correlate for pneumonia. -CTA chest: No pulmonary embolism. Small density posterior right lung. Infiltrate such as pneumonia or mass should be considered. -Laboratory studies: WBC 8.1, hemoglobin 9.8. BUN 16, creatinine 0.84, potassium 3.5. Troponins 0.081, 0.104, 0.101. proBNP 14,000. Procalcitonin less than 0.2. -Home cardiac medications: A atorvastatin 40 mg at bedtime, Plavix 75 mg daily, Lasix 40 mg daily, Imdur 30 mg daily, Lopressor 12.5 mg twice daily, warfarin. -Cardiac catheterization performed 12/24/2023 revealed severe disease of the LAD followed by PCI of the LAD on 01/04/2024. -Echocardiogram performed in the office on 10/26/2024 revealed EF 45 to 50%. Global LV hypokinesis without regional heterogeneity. Left ventricle filling cannot be assessed due to atrial fibrillation. No LVH. Moderate mitral regurgitation. Moderate to severe tricuspid regurgitation. Severely increased pulmonary artery systolic pressure of 68 mmHg. Trace to mild pulmonic regurgitation. Review Of Systems: At the time of my exam: CONSTITUTIONAL: Denies fever or chills. HEENT: Denies blurred vision, vision changes, or eye pain. Denies hemoptysis CARDIOVASCULAR: Denies chest pain. Denies orthopnea. Denies PND. Denies palpitations RESPIRATORY: Reports shortness of breath. GASTROINTESTINAL: Denies abdominal pain. Denies nausea or vomiting. HEMATOLOGIC: Denies bleeding disorders. GENITOURINARY: Denies any blood in urine. SKIN: Denies puritis. Denies rash. Physical examination: Gen: This is 79-year-old female in no acute distress. VS: reviewed HEENT: Head is atraumatic, normocephalic. Pupils equal, round. Sclerae is anicteric. NECK: Supple. No JVD. LUNGS: Clear to auscultation. No wheezes or rhonchi. No intercostal retract ions. HEART: Irregular rate and rhythm. Systolic murmur. ABDOMEN: Soft No tenderness. EXTREMITIES: No pedal edema. No calf tenderness. NEUROLOGICAL: Patient is awake, alert and oriented x3. Assessment: Acute on chronic systolic heart failure with EF improved to 50% Chronic atrial fibrillation, rate controlled Intra-abdominal wall hematoma status post surgery 2 weeks ago, off Coumadin History of coronary artery disease with prior stenting of the LAD Ischemic cardiomyopathy Valvular heart disease with moderate mitral regurgitation, moderate to severe tricuspid regurgitation Hypertension Dyslipidemia Chronic renal failure COPD Plan: Resume patient's home cardiac medications Continue IV Lasix 40 mg every 12 hours Start patient on heparin 5000 units subcu every 12 hours No need to repeat echocardiogram Monitor VIKASH, daily weights, electrolytes and renal function Further recommendations to follow based upon clinical course Thank you kindly for this consultation. Nurse practitioner note has been reviewed, I agree with documented findings and plan of care. Patient was seen and examined. Past Medical History Past Medical History: Atrial Flutter, Asthma, Cancer, COPD, CVA/TIA, GERD/Reflux, GI Bleed, Hyperlipidemia, Hypertension, Memory Impairment, Myocardial Infarction (ND), Osteoarthritis (OA), Renal Disease, Rheumatoid Arthritis (RA) Additional Past Medical History / Comment(s): Chronic cough. Back pain, migrain es. residual from stroke,Occasional slight difficulty with swallowing. Hx gastic ulcer, H-Pylori, diverticulitis, hx melanoma on face X2. Hx kidney stones, "kidney function low", raynauds disease. recent stress test at Dr Castorena's office pt had chest pain-transferred to hospital heart cath unable to place stent at that time per pt. Last Myocardial Infarction Date:: 2012 History of Any Multi-Drug Resistant Organisms: None Reported Past Surgical History: Back Surgery, Cholecystectomy, Heart Catheterization, Hysterectomy, Joint Replacement, Orthopedic Surgery Additional Past Surgical History / Comment(s): RODS & CAGES IN BACK, RIGHT HIP REPLACEMENT, PARTIAL THYROIDECTOMY, BILATERAL KNEE REPLACEMENTS, NECK SURGERY WITH LIDIA AND CAGES, MELANOMA REMOVED FROM FACE X4, REPAIR OF HEMATOMA/FEMORAL ARTERY AFTER HEART CATHETERIZATION,rt foot bone spur removed Past Anesthesia/Blood Transfusion Reactions: Previous Problems w/ Anesthesia, Postoperative Nausea & Vomiting (PONV) Additional Past Anesthesia/Blood Transfusion Reaction / Comment(s): Hard to wake up. Past Psychological History: No Psychological Hx Reported Smoking Status: Never smoker Past Alcohol Use History: None Reported Past Drug Use History: None Reported - Past Family History Sister(s) Family Medical History: Cancer Brother(s) Family Medical History: Cancer Mother Family Medical History: Myocardial Infarction (ND) Additional Family Medical History / Comment(s): Mother of a ND at the age of 76yrs. Father History Unknown: Yes Family Medical History: Chest Pain / Angina Medications and Allergies Home Medications Medication Instructions Recorded Confirmed Type Pantoprazole Sodium [Protonix] 40 mg PO BID 05/14/14 02/13/25 History Cyanocobalamin (Vitamin B-12) 1,000 mcg PO DAILY 06/16/22 02/13/25 History [Vitamin B-12] Warfarin Sodium 2 mg PO SUMOTUWESA@209912/07/22 02/13/25 History Warfarin Sodium 8 mg PO THFR@209901/25/23 02/13/25 History DULoxetine HCL [Cymbalta] 60 mg PO DAILY 07/27/23 02/13/25 History Pregabalin [Lyrica] 100 mg PO BID #6 cap 08/04/23 02/13/25 Rx Albuterol Inhaler [Ventolin Hfa 2 puff INHALATION RT-Q6H PRN 12/22/23 02/13/25 History Inhaler] Cholecalciferol (Vitamin D3) 50 mcg PO DAILY 12/22/23 02/13/25 History [Vitamin D3 (50 Mcg = 2000 Iu)] Atorvastatin [Lipitor] 40 mg PO HS #90 tab 03/03/24 04/23/25 Rx Clopidogrel [Plavix] 75 mg PO DAILY #90 tab 01/06/24 02/13/25 Rx Isosorbide Mononitrate ER [Imdur] 30 mg PO DAILY #90 tab 01/06/24 02/13/25 Rx Furosemide [Lasix] 40 mg PO DAILY 30 Days #30 tab 05/08/24 02/13/25 Rx Ipratropium-Albuterol Nebulize 3 ml INHALATION RT-QID 01/12/25 02/13/25 History [Duoneb 0.5 mg-3 mg/3 ml Soln] Metoprolol Tartrate [Lopressor] 12.5 mg PO BID 01/12/25 02/13/25 History calcitrioL [Rocaltrol] 0.25 mcg PO MOTH 01/12/25 02/13/25 History estradioL [Estrace] 1 mg PO DAILY 01/12/25 02/13/25 History Benzonatate [Tessalon Perles] 200 mg PO TID PRN #30 cap 01/18/25 02/13/25 Rx Budesonide-Formot 160-4.5 Mcg 2 puff INHALATION RT-BID #2 each 01/18/25 02/13/25 Rx [Symbicort 160-4.5 Mcg Inhaler] Montelukast [Singulair] 10 mg PO HS #30 tab 01/18/25 02/13/25 Rx Allergies Allergy/AdvReac Type Severity Reaction Status Date / Time garlic Allergy Intermediate Swelling Verified 02/13/25 08:29 cephalexin monohydrate Allergy Rash/Hives Verified 02/13/25 08:29 [From Keflex] diphenhydramine HCl Allergy SWELLING Verified 02/13/25 08:29 [From Benadryl] OF TONGUE, SOB enoxaparin [From Lovenox] Allergy Rash/Hives Verified 02/13/25 08:29 Penicillins Allergy SWELLING, Verified 02/13/25 08:29 HIVES sulfamethoxazole Allergy Anaphylaxis, Verified 02/13/25 08:29 [From Bactrim] Swelling trimethoprim [From Bactrim] Allergy Anaphylaxis, Verified 02/13/25 08:29 Swelling aspirin AdvReac EXCESS Verified 02/13/25 08:29 BLEEDING milk AdvReac Abdominal Verified 02/13/25 08:29 Pain morphine AdvReac Vomiting Verified 02/13/25 08:29 milk chocolate AdvReac Nausea Uncoded 02/12/25 17:47 Physical Exam Vitals: Vital Signs Temp Pulse Resp BP Pulse Ox 02/13/25 08:04 96 02/13/25 08:03 132 H 02/13/25 08:00 97.7 F 98 18 125/88 98 02/13/25 06:00 94 18 137/82 99 02/13/25 04:00 88 16 118/73 99 02/13/25 02:00 101 H 18 124/73 99 02/12/25 23:58 93 19 134/74 100 02/12/25 22:37 114 H 18 137/91 99 02/12/25 21:43 106 H 18 98 02/12/25 21:03 113 H 19 115/79 98 02/12/25 20:01 104 H 19 129/76 98 02/12/25 17:41 97.7 F 103 H 24 129/86 95 Intake and Output 02/12/25 02/13/25 02/13/25 22:59 06:59 14:59 Other: Weight 78.471 kg Results 02/12/25 18:24 02/12/25 18:24 Cardiac Enzymes 02/12/25 02/12/25 02/12/25 Range/Units 18:24 18:52 23:44 AST 37 H (14-36) U/L Troponin I 0.081 H* 0.104 H* (0.000-0.034) ng/mL 02/13/25 Range/Units 03:19 AST (14-36) U/L Troponin I 0.101 H* (0.000-0.034) ng/mL Coagulation 02/12/25 Range/Units 18:52 PT 11.0 (10.0-12.5) sec APTT 21.2 L (22.0-30.0) sec CBC 02/12/25 Range/Units 18:24 WBC 8.12 (4.50-10.00) 10*3/uL RBC 3.08 L (4.10-5.20) 10*6/uL Hgb 9.8 L (12.0-15.0) g/dL Hct 30.0 L (37.2-46.3) % Plt Count 384 (140-440) 10*3/uL Comprehensive Metabolic Panel 02/12/25 Range/Units 18:24 Sodium 139 (137-145) mmol/L Potassium 3.5 (3.5-5.1) mmol/L Chloride 110 H (98-107) mmol/L Carbon Dioxide 21 L (22-30) mmol/L BUN 16 (7-17) mg/dL Creatinine 0.84 (0.52-1.04) mg/dL Glucose 105 H (74-99) mg/dL Calcium 9.3 (8.4-10.2) mg/dL AST 37 H (14-36) U/L ALT 21 (4-34) U/L Alkaline Phosphatase 95 (38-126) U/L Total Protein 6.2 L (6.3-8.2) g/dL Albumin 3.5 (3.5-5.0) g/dL Current Medications Generic Name Dose Route Start Last Admin Trade Name Freq PRN Reason Stop Dose Admin Albuterol Sulfate 2.5 mg 02/12/25 23:09 Albuterol Nebulized 2.5 Mg/3 Ml INHALATION RT-Q6H PRN Shortness Of Breath Albuterol/Ipratropium 3 ml 02/13/25 08:00 02/13/25 08:00 Ipratropium-Albuterol 3 Ml Neb INHALATION Not Given RT-QID [facility] Atorvastatin Calcium 40 mg 02/13/25 21:00 Atorvastatin 40 Mg Tab PO HS [facility] Benzonatate 200 mg 02/12/25 23:09 Benzonatate 100 Mg Cap PO TID PRN Cough Budesonide/Formoterol Fumarate 2 puff 02/13/25 08:00 02/13/25 08:00 Symbicort 160-4.5 Mcg Inhaler INHALATION 2 puff RT-BID [facility] Administration Calcitriol 0.25 mcg 02/14/25 09:00 Calcitriol 0.25 Mcg Cap PO MoTh [facility] Cholecalciferol 50 mcg 02/13/25 09:00 Cholecalciferol 25 Mcg (1000 Iu) Tablet PO DAILY [facility] Clopidogrel Bisulfate 75 mg 02/13/25 09:00 Clopidogrel 75 Mg Tab PO DAILY [facility] Dapagliflozin 5 mg 02/13/25 09:00 Dapagliflozin Propanediol 5 Mg Tablet PO DAILY [facility] Duloxetine HCl 60 mg 02/13/25 09:00 Duloxetine Hcl 60 Mg Capsule.Dr PO DAILY [facility] Estradiol 1 mg 02/13/25 09:00 Estradiol 0.5 Mg Tab PO DAILY [facility] Furosemide 40 mg 02/13/25 09:00 Furosemide 10 Mg/Ml 4 Ml Vial IV Q12HR [facility] Heparin Sodium (Porcine) 5,000 unit 02/13/25 09:00 Heparin Sodium,Porcine 5,000 Unit/Ml 1 Ml Vial SQ Q12HR [facility] Hydromorphone HCl 0.5 mg 02/12/25 22:38 02/13/25 05:21 Hydromorphone 0.5 Mg/0.5 Ml Syringe IVP 0.5 mg Q3HR PRN Administration Moderate Pain (Scale 4 to 6) Hydromorphone HCl 1 mg 02/12/25 22:38 Hydromorphone 1 Mg/Ml 1 Ml Syringe IVP Q3HR PRN Severe Pain (Scale 7 to 10) Ceftriaxone Sodium 1 gm/ 50 mls @ 100 mls/hr 02/12/25 23:15 02/12/25 23:55 Sodium Chloride IVPB 100 mls/hr Q24H [facility] Administration Protocol Azithromycin 500 mg/ Sodium 250 mls @ 250 mls/hr 02/12/25 23:15 02/13/25 00:39 Chloride IVPB 02/14/25 09:59 250 mls/hr DAILY [facility] Administration Protocol Isosorbide Mononitrate 30 mg 02/13/25 09:00 Isosorbide Mononitrate Er 30 Mg Tab.Er.24h PO DAILY [facility] Metoprolol Tartrate 12.5 mg 02/13/25 09:00 Metoprolol Tartrate 25 Mg Tab PO BID [facility] Montelukast Sodium 10 mg 02/13/25 21:00 Montelukast 10 Mg Tab PO HS [facility] Naloxone HCl 0.2 mg 02/12/25 22:38 Naloxone 0.4 Mg/Ml 1 Ml Vial IV Q2M PRN Opioid Reversal Pantoprazole Sodium 40 mg 02/13/25 09:00 Pantoprazole 40 Mg Tablet PO BID [facility] Pregabalin 100 mg 02/13/25 09:00 Pregabalin 100 Mg Cap PO BID [facility] Intake and Output 02/12/25 02/13/25 02/13/25 22:59 06:59 14:59 Other: Weight 78.471 kg 02/12/25 18:24 02/12/25 18:24
[2025-02-13] MEDS ORDERED: HYDROmorphone 2 MG/ML 1 ML SYRINGE IVP PRN (14:26)
--- NOTE | 2025-02-13 16:36 | P.CNPUL ---
History of Present Illness Consult date: 02/13/25 Reason for consult: dyspnea History of present illness: This is a 79-year-old female patient was being seen in consultation for shortness of breath. The patient has a large number of medical problems and comorbidities. She was in the hospital in December 2024 and she was discharged home on 01/18/2025 after being treated for an acute on chronic respiratory failure due to COPD/asthma exacerbation and purulent tracheobronchitis. She is known to have CAD, CHF with impaired LV function with an ejection fraction of 30 to 35% and she has chronic atrial fibrillation. Following her discharge, the patient came into the emergency department on 01/21/2025 with abdominal pain and at that time, CAT scan of the abdomen and pelvis showed a large interpretation versus intramuscular hematoma of the right lateral abdominal wall measuring 14 x 6 x 18 cm in size. The patient accordingly was transferred to [facility] with I believe the hematoma was drained. Noted, at that time, the patient was also receiving anticoagulants with warfarin and her INR was slightly above therapeutic range. Since then, the patient has been taken off anticoagulants. The patient is coming into the hospital with worsening shortness of breath. She denies having any chest pain. The hematoma over the right lateral abdominal wall seems to be recovered and there is no active issues regarding that problem. For now, she remains in atrial fibrillation. Her chest x-ray was noted and it shows no significant airspace disease. There is cardiomegaly and pulm vessel c ongestion. CTA of the chest was also done and showed no evidence of any pulmonary embolism. There is a small density in the posterior right lung which is a nonspecific findings. There is also evidence of pulm vessel congestion specially in the mid and upper lobes bilaterally. The patient's white cell count currently is at 8.1 with a hemoglobin 9.8 and a platelet count of 384. Coagulation profile is within normal limits. BUN 16 with a creatinine of 0.8. Sodium is at 139 and potassium level is at 3.5. Troponins are 0.08 and 0.1 and 0.1 respectively and a proBNP level is 14,000. Procalcitonin level is at 0.2. The LFTs are essentially within normal limits. Total protein is at 6.2 with a albumin level of 3.5. The patient was given IV Lasix and currently she is on Lasix 40 mg IV push every 12 hours. She is producing excellent amount of urine output and she is feeling better while she is being diuresed. She remains on metoprolol 12.5 mg p.o. twice a day. She is on Symbicort as maintenance and DuoNeb nebulizer treatments [id number]. She is on Plavix. No anticoagulants for now. Review of Systems CONSTITUTIONAL: Denies any recent significant weight loss or weight gain. EYES: Denies change in vision. EARS, NOSE, MOUTH, THROAT: Denies headaches, denies sore throat. CARDIOVASCULAR: Denies chest pain, palpitations or syncopal episodes. RESPIRATORY: Positive for shortness of breath, cough, congestion no hemoptysis. GASTROINTESTINAL: Denies change in appetite, denies abdominal pain GENITOURINARY: Denies hematuria, denies infections. MUSKULOSKELETAL: Denies pain, denies swelling. INTEGUMENTARY: Denies rash, denies eczema. NEUROLOGICAL: Denies recent memory loss, no recent seizure activity. PSYCHIATRIC: Denies anxiety, denies depression. HEMATOLOGIC/LYMPHATIC: Denies anemia, denies enlarged lymph nodes. Past Medical History Past Medical History: Atrial Flutter, Asthma, Cancer, COPD, CVA/TIA, GERD/Reflux, GI Bleed, Hyperlipidemia, Hypertension, Memory Impairment, Myocardial Infarction ([place]), Osteoarthritis (OA), Renal Disease, Rheumatoid Arthritis (RA) Additional Past Medical History / Comment(s): Chronic cough. Back pain, migraines. residual from stroke,Occasional slight difficulty with swallowing. Hx gastic ulcer, H-Pylori, diverticulitis, hx melanoma on face X2. Hx kidney stones, "kidney function low", raynauds disease. recent stress test at Dr Castorena's office pt had chest pain-transferred to hospital heart cath unable to place stent at that time per pt. Last Myocardial Infarction Date:: 2012 History of Any Multi-Drug Resistant Organisms: None Reported Past Surgical History: Back Surgery, Cholecystectomy, Heart Catheterization, Hysterectomy, Joint Replacement, Orthopedic Surgery Additional Past Surgical History / Comment(s): RODS & CAGES IN BACK, RIGHT HIP REPLACEMENT, PARTIAL THYROIDECTOMY, BILATERAL KNEE REPLACEMENTS, NECK SURGERY WITH LIDIA AND CAGES, MELANOMA REMOVED FROM FACE X4, REPAIR OF HEMATOMA/FEMORAL ARTERY AFTER HEART CATHETERIZATION,rt foot bone spur removed Past Anesthesia/Blood Transfusion Reactions: Previous Problems w/ Anesthesia, Postoperative Nausea & Vomiting (PONV) Additional Past Anesthesia/Blood Transfusion Reaction / Comment(s): Hard to wake up. Past Psychological History: No Psychological Hx Reported Smoking Status: Never smoker Past Alcohol Use History: None Reported Past Drug Use History: None Reported - Past Family History Sister(s) Family Medical History: Cancer Brother(s) Family Medical History: Cancer Mother Family Medical History: Myocardial Infarction ([place]) Additional Family Medical History / Comment(s): Mother of a [place] at the age of 76yrs. Father History Unknown: Yes Family Medical History: Chest Pain / Angina Medications and Allergies Home Medications Medication Instructions Recorded Confirmed Type Pantoprazole Sodium [Protonix] 40 mg PO BID 05/14/14 02/13/25 History Cyanocobalamin (Vitamin B-12) 1,000 mcg PO DAILY 06/16/22 02/13/25 History [Vitamin B-12] Warfarin Sodium 2 mg PO SUMOTUWESA@209912/07/22 02/13/25 History Warfarin Sodium 8 mg PO THFR@209901/25/23 02/13/25 History DULoxetine HCL [Cymbalta] 60 mg PO DAILY 07/27/23 02/13/25 History Pregabalin [Lyrica] 100 mg PO BID #6 cap 08/04/23 02/13/25 Rx Albuterol Inhaler [Ventolin Hfa 2 puff INHALATION RT-Q6H PRN 12/22/23 02/13/25 History Inhaler] Cholecalciferol (Vitamin D3) 50 mcg PO DAILY 12/22/23 02/13/25 History [Vitamin D3 (50 Mcg = 2000 Iu)] Atorvastatin [Lipitor] 40 mg PO HS #90 tab 12/25/23 02/13/25 Rx Clopidogrel [Plavix] 75 mg PO DAILY #90 tab 01/06/24 02/13/25 Rx Isosorbide Mononitrate ER [Imdur] 30 mg PO DAILY #90 tab 01/06/24 02/13/25 Rx Furosemide [Lasix] 40 mg PO DAILY 30 Days #30 tab 05/08/24 02/13/25 Rx Ipratropium-Albuterol Nebulize 3 ml INHALATION RT-QID 01/12/25 02/13/25 History [Duoneb 0.5 mg-3 mg/3 ml Soln] Metoprolol Tartrate [Lopressor] 12.5 mg PO BID 01/12/25 02/13/25 History calcitrioL [Rocaltrol] 0.25 mcg PO MOTH 01/12/25 02/13/25 History estradioL [Estrace] 1 mg PO DAILY 01/12/25 02/13/25 History Benzonatate [Tessalon Perles] 200 mg PO TID PRN #30 cap 01/18/25 02/13/25 Rx Budesonide-Formot 160-4.5 Mcg 2 puff INHALATION RT-BID #2 each 01/18/25 02/13/25 Rx [Symbicort 160-4.5 Mcg Inhaler] Montelukast [Singulair] 10 mg PO HS #30 tab 01/18/25 02/13/25 Rx Allergies Allergy/AdvReac Type Severity Reaction Status Date / Time garlic Allergy Intermediate Swelling Verified 02/13/25 08:29 cephalexin monohydrate Allergy Rash/Hives Verified 02/13/25 08:29 [From Keflex] diphenhydramine HCl Allergy SWELLING Verified 02/13/25 08:29 [From Benadryl] OF TONGUE, SOB enoxaparin [From Lovenox] Allergy Rash/Hives Verified 02/13/25 08:29 Penicillins Allergy SWELLING, Verified 02/13/25 08:29 HIVES sulfamethoxazole Allergy Anaphylaxis, Verified 02/13/25 08:29 [From Bactrim] Swelling trimethoprim [From Bactrim] Allergy Anaphylaxis, Verified 02/13/25 08:29 Swelling aspirin AdvReac EXCESS Verified 02/13/25 08:29 BLEEDING milk AdvReac Abdominal Verified 02/13/25 08:29 Pain morphine AdvReac Vomiting Verified 02/13/25 08:29 milk chocolate AdvReac Nausea Uncoded 02/12/25 17:47 Physical Exam Vitals: Vital Signs Temp Pulse Resp BP Pulse Ox 02/13/25 16:12 94 02/13/25 16:03 91 02/13/25 13:44 98.0 F 99 18 113/76 96 02/13/25 12:07 79 02/13/25 11:59 80 02/13/25 10:00 92 20 118/82 98 02/13/25 09:30 92 20 136/81 98 02/13/25 08:04 96 02/13/25 08:03 132 H 02/13/25 08:00 97.7 F 98 18 125/88 98 02/13/25 06:00 94 18 137/82 99 02/13/25 04:00 88 16 118/73 99 02/13/25 02:00 101 H 18 124/73 99 02/12/25 23:58 93 19 134/74 100 02/12/25 22:37 114 H 18 137/91 99 02/12/25 21:43 106 H 18 98 02/12/25 21:03 113 H 19 115/79 98 02/12/25 20:01 104 H 19 129/76 98 02/12/25 17:41 97.7 F 103 H 24 129/86 95 Intake and Output 02/13/25 02/13/25 02/13/25 06:59 14:59 22:59 Output Total 1000 Balance -1000 Output: Urine 1000 Other: # Voids 1 Weight 78.471 kg GENERAL EXAM: Alert, pleasant 79-year-old female, on 2 L nasal cannula, comfortable in no apparent distress. HEAD: Normocephalic. EYES: Normal reaction of pupils, equal size. NOSE: Clear with pink turbinates. THROAT: No erythema or exudates. NECK: No masses, no JVD. CHEST: No chest wall deformity. LUNGS: Equal air entry with bilateral end expiratory wheeze. Few crackles at lung base bilaterally. Breath sounds are quite diminished bilaterally. CVS: S1 and S2 normal with no audible murmur, irregular consistent with atrial fibrillation. ABDOMEN: No hepatosplenomegaly, normal bowel sounds, no guarding or rigidity. SPINE: No scoliosis or deformity SKIN: No rashes CENTRAL NERVOUS SYSTEM: No focal deficits, tone is normal in all 4 extremities. EXTREMITIES: There is no peripheral edema. No clubbing, no cyanosis. Kacey pheral pulses are intact. Results - Laboratory Findings CBC and BMP: 02/12/25 18:24 02/12/25 18:24 ABG WBC 8.12 10*3/uL (4.50-10.00) 02/12/25 18:24 RBC 3.08 10*6/uL (4.10-5.20) L 02/12/25 18:24 Hgb 9.8 g/dL (12.0-15.0) L 02/12/25 18:24 Hct 30.0 % (37.2-46.3) L 02/12/25 18:24 MCV 97.4 fL (80.0-97.0) H 02/12/25 18:24 MCH 31.8 pg (27.0-32.0) 02/12/25 18: MCHC 32.7 g/dL (32.0-37.0) 02/12/25 18: Plt Count 384 10*3/uL (140-440) 02/12/25 18:24 MPV 9.8 fL (9.5-12.2) 02/12/25 18: Immature Gran % (Auto) 1.1 % 02/12/25 18: Neutrophils % 76.6 % 02/12/25 18: Lymphocytes % 12.1 % 02/12/25 18: Monocytes % 8.1 % 02/12/25 18: Eosinophils % 1.4 % 02/12/25 18: Basophils % 0.7 % 02/12/25 18: Immature Gran # 0.09 10*3/uL (0.00-0.04) H 02/12/25 18:24 Neutrophils # 6.22 10*3/uL (1.80-7.70) 02/12/25 18:24 Lymphocytes # 0.98 10*3/uL (0.90-5.00) 02/12/25 18: Monocytes # 0.66 10*3/uL (0.20-1.00) 02/12/25 18: Eosinophils # 0.11 10*3/uL (0.04-0.35) 02/12/25 18: Basophils # 0.06 10*3/uL (0.00-0.10) 02/12/25 18:24 ESR 23 mm/Hr (0-30) 02/12/25 18:24 Sodium 139 mmol/L (137-145) 02/12/25 18:24 Potassium 3.5 mmol/L (3.5-5.1) 02/12/25 18:24 Chloride 110 mmol/L (98-107) H 02/12/25 18:24 Carbon Dioxide 21 mmol/L (22-30) L 02/12/25 18:24 Anion Gap 8 mmol/L 02/12/25 18:24 BUN 16 mg/dL (7-17) 02/12/25 18:24 Creatinine 0.84 mg/dL (0.52-1.04) 02/12/25 18:24 Est GFR (CKD-EPI)AfAm 76 (>60 ml/min/1.73 sqM) 02/12/25 18:24 Est GFR (CKD-EPI)NonAf 66 (>60 ml/min/1.73 sqM) 02/12/25 18:24 Glucose 105 mg/dL (74-99) H 02/12/25 18:24 Calcium 9.3 mg/dL (8.4-10.2) 02/12/25 18:24 Total Bilirubin 1.9 mg/dL (0.2-1.3) H 02/12/25 18:24 AST 37 U/L (14-36) H 02/12/25 18:24 ALT 21 U/L (4-34) 02/12/25 18:24 Alkaline Phosphatase 95 U/L (38-126) 02/12/25 18:24 Troponin I 0.101 ng/mL (0.000-0.034) H* 02/13/25 03:19 C-Reactive Protein 2.8 mg/dL (<1.0) H 02/12/25 18:24 NT-Pro-B Natriuret Pep 03982 pg/mL 02/12/25 18:24 Total Protein 6.2 g/dL (6.3-8.2) L 02/12/25 18:24 Albumin 3.5 g/dL (3.5-5.0) 02/12/25 18:24 Procalcitonin <0.20 ng/mL (0.02-0.50) 02/13/25 03:19 PT/INR, D-dimer PT 11.0 sec (10.0-12.5) 02/12/25 18:52 INR 1.0 (<1.2) 02/12/25 18:52 Abnormal lab findings: Abnormal Labs 02/12/25 02/12/25 02/12/25 18:24 18:24 18:24 RBC 3.08 L Hgb 9.8 L Hct 30.0 L MCV 97.4 H Immature Gran # 0.09 H APTT Chloride 110 H Carbon Dioxide 21 L Glucose 105 H Total Bilirubin 1.9 H AST 37 H Troponin I C-Reactive Protein 2.8 H Total Protein 6.2 L 02/12/25 02/12/25 02/12/25 18:52 18:52 23:44 RBC Hgb Hct MCV Immature Gran # APTT 21.2 L Chloride Carbon Dioxide Glucose Total Bilirubin AST Troponin I 0.081 H* 0.104 H* C-Reactive Protein Total Protein 02/13/25 03:19 RBC Hgb Hct MCV Immature Gran # APTT Chloride Carbon Dioxide Glucose Total Bilirubin AST Troponin I 0.101 H* C-Reactive Protein Total Protein - Diagnostic Findings Chest x-ray: image reviewed CT scan - chest: image reviewed Assessment and Plan Plan: Acute on chronic shortness of breath, most likely secondary to CHF. Reviewed the CAT scan of the chest and there is increased interstitial edema the patient is responding nicely to diuretics. No evidence of any airspace disease or pneumonia. No signs of any COPD/asthma exacerbation. proBNP level is elevated above 14,000. Nonspecific elevation of the troponins. EKG showing atrial fibrillation with a controlled rate. No acute ischemic changes. Most recent echocardiogram done on 01/05/2024 in the records shows systolic heart failure and repeat echocardiogram from 10/26/2024 showed an ejection fraction of 45 to 50% and the patient also has moderate MR, moderate to severe TR, severe pulm hypertension with a PA pressure of 68. Chronic systolic heart failure Chronic pulmonary hypertension group 2/3 Valvular heart disease with moderate MR, moderate to severe TR Coronary artery disease with previous PCI and stenting of the LAD on 01/04/2024 COPD/asthma Chronic atrial fibrillation Right lateral abdominal wall hematoma post drainage and the patient is currently off anticoagulants Hypertension Hyperlipidemia Previous history of CVA/TIA Previous history of GI bleed History of nephrolithiasis History of melanoma, resected History of diverticulosis History of rheumatoid arthritis, currently inactive and stable Plan Keep the patient off anticoagulants. Continue IV Lasix 40 mg every 12 hours and the patient responding nicely to diuretics Keep oxygen 2 L/min nasal cannula and titrate oxygen flow to maintain saturation above 90% Continue Symbicort Continue DuoNeb updrafts No evidence of pneumonia CAT scan of the chest was reviewed Procalcitonin level is not elevated Will continue to follow Time with Patient: Greater than 30
--- NOTE | 2025-02-13 18:26 | P.PN ---
Subjective Progress Note Date: 02/13/25 Hospital course: Patient is a pleasant 79-year-old female with a past medical history of CAD status post recent stenting, chronic persistent atrial fibrillation on anticoagulation with Coumadin, chronic systolic heart failure with previously known EF of 30 to 35%, hypertension, COPD with chronic hypoxic respiratory failure home oxygen dependent on 2 L at all times, and stage IIIb chronic kidney disease. She follows with Staff Development Manager. Dr. Bajwa and PCP Dr. Mcneal. She presented to the hospital on 02/12/2025 with a chief complaint of shortness of breath status post discharged from rehabilitation facility after undergoing interventional radiology for drainage of abdominal hematoma. Upon arrival to our facility, patient underwent evaluation in the emergency department. Vital signs upon arrival show blood pressure 129/86, heart rate 103, respiratory rate 24, temp 97.7 F, and SpO2 95% on baseline home oxygen 2 L EKG was completed showing atrial fibrillation at 106 bpm with occasional PVC. Chest x-ray revealing right lower lobe infiltrate. Labs completed and reviewed. CBC showing macrocytic anemia with hemoglobin of 9.8 and MCV of 97.4. Coagulation profile showing a subtherapeutic INR of 1.0 (as pt has been holding warfarin secondary to abdominal wall hematoma) and a low PTT of 21.2. BMP showing non- anion gap metabolic acidosis with chloride of 110, bicarb 21, and anion gap of 8. Blood glucose was 105. Calcium 9.3. Liver profile showing elevated total bili of 1.9 and AST of 37. CRP elevated at 2.8. proBNP was 14,000. Troponin w as elevated at 0.081. CTA chest completed negative for pulmonary emboli showing a small density posterior right lung likely infiltrate, however unable to rule out mass recommending follow-up imaging. Troponins trended resulting at 0.081, 0.104, 0.101. Physical exam: Patient seen and fully evaluated at bedside she continues to report persistent shortness of breath and fatigue but denies any other complaints at this time. Vital signs reviewed and stable. General: Nontoxic, no distress and appears stated age. Derm: Skin warm and dry, normal coloration for ethnicity. Head: Atraumatic, normocephalic and symmetric. Eyes: EOMs intact, no lid lag, and anicteric sclera Mouth: no lip lesions, mucus membranes moist Cardiovascular: Irregularly irregular, systolic murmur, positive posterior tibial pulses bilaterally, and cap refill < 2 seconds. Lungs: Respirations even, regular, and unlabored on room air. Lungs diminished with bibasilar crackles and diffuse expiratory wheezes Abdominal: soft, nontender to palpation, no guarding, no appreciable organomegaly Ext: ROM intact. No gross muscle atrophy, no edema, no contractures Neuro: Speech clear, face symmetrical and CN II-XII grossly intact with no noted focal neuro deficits Psych: Alert and oriented to person, place, time, and situation. Appropriate and pleasant affect. Assessment and Plan of Care: Acute HFrEF, last echo showing lvef of 30-35% Elevated troponins, likely secondary to above Chronic persistent atrial fibrillation Hypertension History of CAD status post stenting -Cardiology consulted, discussed with cardiac REHAB NURSE. -Telemetry monitoring -Troponins trended resulting at 0.081, 0.104, 0.101. -ProBNP 14,000 -Daily weights -Close monitoring of I's and O's -Cardiac diet -Lasix 40 mg IVP every 12 hours -Continue cardiac medication regimen with Plavix 75 mg daily, atorvastatin 40 mg nightly, Farxiga 5 mg daily, isosorbide mononitrate 30 mg daily, and metoprolol 12.5 mg twice daily. -Continued close monitoring of electrolytes while diuresing. - Coumadin held at this time secondary to abdominal hematoma status postdrainage by IR. COPD with chornic hypoxic respiraotry failure on NC. Large pulmonary density posterior right lung, likely secondary to infiltrate - Reconsulted for further evaluation and to rule out right lower lobe mass - Continue Ventolin nebulizers every 6 hours as needed for wheezing/shortness of breath, Symbicort 160-4.5 mcg inhaler 2 puffs twice daily, and scheduled DuoNebs 4 times daily with Singulair 10 mg nightly. - Continue supplemental oxygen to maintain SpO2 equal to or greater than 90%. Neuropathy. Continue home lyrica 100 mg BID Major depression disorder. Continue home medication regimen with cymbalta 60 mg daily Pneumonia ruled out, procalcitonin negative. IV antibiotics discontinued. Data and imaging reviewed: -Vital signs reviewed. Blood pressure 125/88, heart rate 98, respiratory rate 18, temp 97.7 F, and SpO2 of 98% on 2 L. Heart rate increasing to 132 this morning. -Morning labs reviewed. CBC showing macrocytic anemia with hemoglobin of 9.8. Coagulation profile showing low PTT at 21.2 with INR of 1.0. BMP showing non- anion gap metabolic acidosis with chloride of 110, bicarb of 21, and anion gap of 8. Blood glucose 106. Liver profile showing elevated total bili of 1.9 and AST of 37. CRP was elevated at 2.8. proBNP 14,000.Troponins trended resulting at 0.081, 0.104, 0.101. CODE STATUS: Full code DVT prophylaxis: ARI nila and SCDs, Coumadin held secondary to recent diagnosis of abdominal hematoma status post IR drainage Discussed with: Patient, RN, and cardiology REHAB NURSE Anticipated discharge date: Pending clinical course Anticipated discharge place: Pending clinical course Patient was seen independently by Nurse Pracitioner. This document was prepared using [employer] dictation software. Please allow for errors in seamless tube mill operator, while rare they do occur. Rishi Hernandez, REHAB NURSE rendered care for this patient independently, reviewed the findings and plan as documented in the note above and agree with plan. I did not physically speak with or examine the patient on this date. Objective - Vital Signs Vital signs: Vital Signs Temp 97.7 F 02/13/25 08:00 Pulse 132 H 02/13/25 08:03 Resp 18 02/13/25 08:00 BP 125/88 02/13/25 08:00 Pulse Ox 96 02/13/25 08:04 FiO2 Intake & Output 02/12/25 02/13/25 02/13/25 18:59 06:59 18:59 Weight 78.471 kg - Labs CBC & Chem 7: 02/12/25 18:24 02/12/25 18:24 Labs: Abnormal Lab Results - Last 24 Hours (Table) 02/12/25 02/12/25 02/12/25 Range/Units 18:24 18:24 18:24 RBC 3.08 L (4.10-5.20) 10*6/uL Hgb 9.8 L (12.0-15.0) g/dL Hct 30.0 L (37.2-46.3) % MCV 97.4 H (80.0-97.0) fL Immature Gran # 0.09 H (0.00-0.04) 10*3/uL APTT (22.0-30.0) sec Chloride 110 H (98-107) mmol/L Carbon Dioxide 21 L (22-30) mmol/L Glucose 105 H (74-99) mg/dL Total Bilirubin 1.9 H (0.2-1.3) mg/dL AST 37 H (14-36) U/L Troponin I (0.000-0.034) ng/mL C-Reactive Protein 2.8 H (<1.0) mg/dL Total Protein 6.2 L (6.3-8.2) g/dL 02/12/25 02/12/25 02/12/25 Range/Units 18:52 18:52 23:44 RBC (4.10-5.20) 10*6/uL Hgb (12.0-15.0) g/dL Hct (37.2-46.3) % MCV (80.0-97.0) fL Immature Gran # (0.00-0.04) 10*3/uL APTT 21.2 L (22.0-30.0) sec Chloride (98-107) mmol/L Carbon Dioxide (22-30) mmol/L Glucose (74-99) mg/dL Total Bilirubin (0.2-1.3) mg/dL AST (14-36) U/L Troponin I 0.081 H* 0.104 H* (0.000-0.034) ng/mL C-Reactive Protein (<1.0) mg/dL Total Protein (6.3-8.2) g/dL 02/13/25 Range/Units 03:19 RBC (4.10-5.20) 10*6/uL Hgb (12.0-15.0) g/dL Hct (37.2-46.3) % MCV (80.0-97.0) fL Immature Gran # (0.00-0.04) 10*3/uL APTT (22.0-30.0) sec Chloride (98-107) mmol/L Carbon Dioxide (22-30) mmol/L Glucose (74-99) mg/dL Total Bilirubin (0.2-1.3) mg/dL AST (14-36) U/L Troponin I 0.101 H* (0.000-0.034) ng/mL C-Reactive Protein (<1.0) mg/dL Total Protein (6.3-8.2) g/dL
[2025-02-13] MEDS: MONTELUKAST 10 MG TAB PO SCH (20:13)
[2025-02-13] MEDS: ATORVASTATIN 40 MG TAB PO SCH (20:13)
[2025-02-14 06:30] LABS: HCT 31.6 % (37.2-46.3); HGB 10.1 g/dL (12.0-15.0); Platelet Count 395 10*3/uL (140-440); RBC 3.16 10*6/uL (4.10-5.20); RDW 17.5 % (11.5-14.5); WBC 7.07 10*3/uL (4.50-10.00)
[2025-02-14 06:57] LABS: African American GFR (CKD) 57 (>60 ml/min/1.73 sqM); Anion Gap 10 mmol/L; Blood Urea Nitrogen 17 mg/dL (7-17); Calcium 9.3 mg/dL (8.4-10.2); Carbon Dioxide 30 mmol/L (22-30); Chloride 97 mmol/L (98-107); Glucose 66 mg/dL (74-99); Magnesium 1.8 mg/dL (1.6-2.3); Non-African American GFR(CKD) 50 (>60 ml/min/1.73 sqM); Potassium 3.1 mmol/L (3.5-5.1); Sodium 137 mmol/L (137-145)
[2025-02-14] MEDS: POTASSIUM CHLORIDE ER 20 MEQ TAB.ER PO STA (09:51)
[2025-02-14] MEDS: ACETAMINOPHEN TAB 325 MG TAB PO PRN (12:46)
[2025-02-14] MEDS ORDERED: DEXTROSE 50% SYRINGE 50 ML IVP PRN ×2 (13:58)
--- NOTE | 2025-02-14 14:08 | P.PN ---
Subjective Progress Note Date: 02/14/25 Hospital course: Patient is a pleasant 79-year-old female with a past medical history of CAD status post recent stenting, chronic persistent atrial fibrillation on anticoagulation with Coumadin, chronic systolic heart failure with previously known EF of 30 to 35%, hypertension, COPD with chronic hypoxic respiratory failure home oxygen dependent on 2 L at all times, and stage IIIb chronic kidney disease. She follows with Retail Shift Leader. Dr. Bajwa and PCP Dr. Mcneal. She presented to the hospital on 02/12/2025 with a chief complaint of shortness of breath status post discharged from rehabilitation facility after undergoing interventional radiology for drainage of abdominal hematoma. Upon arrival to our facility, patient underwent evaluation in the emergency department. Vital signs upon arrival show blood pressure 129/86, heart rate 103, respiratory rate 24, temp 97.7 F, and SpO2 95% on baseline home oxygen 2 L EKG was completed showing atrial fibrillation at 106 bpm with occasional PVC. Chest x-ray revealing right lower lobe infiltrate. Labs completed and reviewed. CBC showing macrocytic anemia with hemoglobin of 9.8 and MCV of 97.4. Coagulation profile showing a subtherapeutic INR of 1.0 (as pt has been holding warfarin secondary to abdominal wall hematoma) and a low PTT of 21.2. BMP showing non- anion gap metabolic acidosis with chloride of 110, bicarb 21, and anion gap of 8. Blood glucose was 105. Calcium 9.3. Liver profile showing elevated total bili of 1.9 and AST of 37. CRP elevated at 2.8. proBNP was 14,000. Troponin w as elevated at 0.081. CTA chest completed negative for pulmonary emboli showing a small density posterior right lung likely infiltrate, however unable to rule out mass recommending follow-up imaging. Troponins trended resulting at 0.081, 0.104, 0.101. Physical exam: Patient seen and fully evaluated at bedside she continues to report persistent shortness of breath and fatigue, stating it is somewhat improved at rest but significantly worsens with any exertion. She does report cough is more productive of cream to white-colored sputum production. She denies having any headache, lightheadedness, dizziness, chest pain, palpitations, or any other complaints at this time. Vital signs reviewed and stable. General: Nontoxic, no distress and appears stated age. Derm: Skin warm and dry, normal coloration for ethnicity. Head: Atraumatic, normocephalic and symmetric. Eyes: EOMs intact, no lid lag, and anicteric sclera Mouth: no lip lesions, mucus membranes moist Cardiovascular: Irregularly irregular, systolic murmur, positive posterior tibial pulses bilaterally, and cap refill < 2 seconds. Lungs: Respirations even, regular, and unlabored on room air. Lungs diminished with bibasilar crackles and diffuse expiratory wheezes Abdominal: soft, nontender to palpation, no guarding, no appreciable organomegaly. small area of bruising to suprapubic region Ext: ROM intact. No gross muscle atrophy, no edema, no contractures Neuro: Speech clear, face symmetrical and CN II-XII grossly intact with no noted focal neuro deficits Psych: Alert and oriented to person, place, time, and situation. Appropriate and pleasant affect. Assessment and Plan of Care: Acute HFrEF, last echo showing lvef of 30-35% Elevated troponins, likely type II NSTEMI secondary to above Chronic persistent atrial fibrillation Hypertension History of CAD status post stenting -Cardiology consulted, discussed with nurse sitter and cardiac REFRIGERATION SPECIALIST recommending continuation of IV diuretic with Lasix 40 mg IV every 12 hours and adding on Aldactone 25 mg daily. -Telemetry monitoring -Troponins trended resulting at 0.081, 0.104, 0.101. -ProBNP 14,000 -Daily weights -Close monitoring of I's and O's -Cardiac diet -Lasix 40 mg IVP every 12 hours -Continue cardiac medication regimen with Plavix 75 mg daily, atorvastatin 40 mg nightly, Farxiga 5 mg daily, isosorbide mononitrate 30 mg daily, and metoprolol 12.5 mg twice daily. -Continued close monitoring of electrolytes while diuresing. - Coumadin held at this time secondary to abdominal hematoma status postdrainage by IR. COPD with chornic hypoxic respiraotry failure on NC. Large pulmonary density posterior right lung, likely secondary to infiltrate - Pulmonary evaluated and discussed plan of care with toe former stitchdowns stating he personally reviewed CT no signs of underlying mass or consolidation. Increased shortness of breath likely secondary to vascular congestion resulting from CHF exacerbation. - Continue Ventolin nebulizers every 6 hours as needed for wheezing/shortness of breath, Symbicort 160-4.5 mcg inhaler 2 puffs twice daily, and scheduled DuoNebs 4 times daily with Mainorulair 10 mg nightly. - Continue supplemental oxygen to maintain SpO2 equal to or greater than 90%. Hypoglycemia. Patient had isolated episode of hypoglycemia this morning with blood glucose of 66. Will place patient on glycemic protocol with plan of care glucose checks every 6 hours if no further episodes of hypoglycemia over the ne xt 24 hours may discontinue. Neuropathy. Continue home lyrica 100 mg BID Major depression disorder. Continue home medication regimen with cymbalta 60 mg daily Pneumonia ruled out, procalcitonin negative. IV antibiotics discontinued. Data and imaging reviewed: -Vital signs reviewed. Blood pressure 117/68, heart rate 92, respiratory rate 16, temp 98.0 F, and SpO2 of 95% on 2 L per -Morning labs reviewed. CBC showing stable macrocytic anemia with hemoglobin of 10.1 and MCV of 100.0. BMP revealing hypokalemia with potassium of 3.1 and hypochloremia with chloride of 97. Renal function slightly elevated with BUN of 17, creatinine 1.07, GFR 50. Blood glucose was low this morning at 66. Magnesium 1.8. CODE STATUS: Full code DVT prophylaxis: ARI dotson and SCDs, Coumadin held secondary to recent diagnosis of abdominal hematoma status post IR drainage Discussed with: Patient, RN, nurse sitter and cardiology REFRIGERATION SPECIALIST Anticipated discharge date: Pending clinical course Anticipated discharge place: Pending clinical course Patient was seen independently by Nurse Pracitioner. This document was prepared using [employer] dictation software. Please allow for errors in cosmetology instructor, while rare they do occur. Rishi Hernandez NP rendered care for this patient independently, reviewed the findings and plan as documented in the note above and agree with plan. I did not physically speak with or examine the patient on this date. Objective - Vital Signs Vital signs: Vital Signs Temp 98.0 F 02/14/25 03:35 Pulse 92 02/14/25 08:32 Resp 16 02/14/25 03:35 BP 107/68 02/14/25 03:35 Pulse Ox 96 02/14/25 03:35 FiO2 Intake & Output 02/13/25 02/14/25 02/14/25 18:59 06:59 18:59 Intake Total 240 240 Output Total 1000 1000 Balance -760 -760 Weight 78.471 kg 78 kg Intake: Oral 240 240 Output: Urine 1000 1000 Other: Voiding Method External Catheter # Voids 1 - Labs CBC & Chem 7: 02/14/25 05:16 02/14/25 05:16 Labs: Abnormal Lab Results - Last 24 Hours (Table) 02/14/25 02/14/25 Range/Units 05:16 05:16 RBC 3.16 L (4.10-5.20) 10*6/uL Hgb 10.1 L (12.0-15.0) g/dL Hct 31.6 L (37.2-46.3) % MCV 100.0 H (80.0-97.0) fL Potassium 3.1 L (3.5-5.1) mmol/L Chloride 97 L (98-107) mmol/L Creatinine 1.07 H (0.52-1.04) mg/dL Glucose 66 L (74-99) mg/dL
--- NOTE | 2025-02-14 14:10 | P.PN ---
Subjective Progress Note Date: 02/14/25 This is a 79-year-old female patient was being seen in consultation for shortness of breath. The patient has a large number of medical problems and comorbidities. She was in the hospital in December 2024 and she was discharged home on 01/18/2025 after being treated for an acute on chronic respiratory failu re due to COPD/asthma exacerbation and purulent tracheobronchitis. She is known to have CAD, CHF with impaired LV function with an ejection fraction of 30 to 35% and she has chronic atrial fibrillation. Following her discharge, the patient came into the emergency department on 01/21/2025 with abdominal pain and at that time, CAT scan of the abdomen and pelvis showed a large interpretation versus intramuscular hematoma of the right lateral abdominal wall measuring 14 x 6 x 18 cm in size. The patient accordingly was transferred to [facility] with I believe the hematoma was drained. Noted, at that time, the patient was also receiving anticoagulants with warfarin and her INR was slightly above therapeutic range. Since then, the patient has been taken off anticoagulants. The patient is coming into the hospital with worsening shortness of breath. She denies having any chest pain. The hematoma over the right lateral abdominal wall seems to be recovered and there is no active issues regarding that problem. For now, she remains in atrial fibrillation. Her chest x-ray was noted and it shows no significant airspace disease. There is cardiomegaly and pulm vessel congestion. CTA of the chest was also done and showed no evidence of any pulmonary embolism. There is a small density in the posterior right lung which is a nonspecific findings. There is also evidence of pulm vessel congestion specially in the mid and upper lobes bilaterally. The patient's white cell count currently is at 8.1 with a hemoglobin 9.8 and a platelet count of 384. Coagulation profile is within normal limits. BUN 16 with a creatinine of 0.8. Sodium is at 139 and potassium level is at 3.5. Troponins are 0.08 and 0.1 and 0.1 respectively and a proBNP level is 14,000. Procalcitonin level is at 0.2. The LFTs are essentially within normal limits. Total protein is at 6.2 with a albumin level of 3.5. The patient was given IV Lasix and currently she is on Lasix 40 mg IV push every 12 hours. She is producing excellent amount of urine output and she is feeling better while she is being diuresed. She remains on metoprolol 12.5 mg p.o. twice a day. She is on Symbicort as maintenance and DuoNeb nebulizer treatments [id number]. She is on Plavix. No anticoagulants for now. On today's evaluation 02/14/2025, the patient is being seen for a follow-up. The patient is doing well. She has diuresed adequately over the past 24 hours and the patient remains on IV Lasix. She continues to produce adequate amount of urine output. She remains on oxygen 2 L/min nasal cannula. She remains in atrial fibrillation. No chest pain. No cough or sputum production. She was restarted on Pradaxa. She remains on Symbicort and DuoNeb number of treatments [id number]. IV Lasix 40 mg every 12 hours. Rest of the medications are essentially unchanged. Aldactone was also added to her regimen. Sodium levels at 137 with a potassium level of 3.1, BUN 17 with a creatinine of 1.07 and a serum bicarbonate 30. White cell count is at 7 with a hemoglobin of 10.1. Objective - Vital Signs Vital signs: Vital Signs Temp 98.2 F 02/14/25 12:02 Pulse 96 02/14/25 12:02 Resp 16 02/14/25 12:02 BP 114/66 02/14/25 12:02 Pulse Ox 96 02/14/25 12:02 FiO2 Intake & Output 02/13/25 02/14/25 02/14/25 18:59 06:59 18:59 Intake Total 240 360 Output Total 1000 1000 Balance -760 -640 Weight 78.471 kg 78 kg Intake: Oral 240 360 Output: Urine 1000 1000 Other: Voiding Method External Catheter # Voids 1 - Exam GENERAL EXAM: Alert, pleasant 79-year-old female, on 2 L nasal cannula, comfortable in no apparent distress. HEAD: Normocephalic. EYES: Normal reaction of pupils, equal size. NOSE: Clear with pink turbinates. THROAT: No erythema or exudates. NECK: No masses, no JVD. CHEST: No chest wall deformity. LUNGS: Equal air entry with bilateral end expiratory wheeze. Few crackles at lung base bilaterally. Breath sounds are quite diminished bilaterally. CVS: S1 and S2 normal with no audible murmur, irregular consistent with atrial fibrillation. ABDOMEN: No hepatosplenomegaly, normal bowel sounds, no guarding or rigidity. SPINE: No scoliosis or deformity SKIN: No rashes CENTRAL NERVOUS SYSTEM: No focal deficits, tone is normal in all 4 extremities. EXTREMITIES: There is no peripheral edema. No clubbing, no cyanosis. Peripheral pulses are intact. - Labs CBC & Chem 7: 02/14/25 05:16 02/14/25 05:16 Labs: Abnormal Lab Results - Last 24 Hours (Table) 02/14/25 02/14/25 Range/Units 05:16 05:16 RBC 3.16 L (4.10-5.20) 10*6/uL Hgb 10.1 L (12.0-15.0) g/dL Hct 31.6 L (37.2-46.3) % MCV 100.0 H (80.0-97.0) fL Potassium 3.1 L (3.5-5.1) mmol/L Chloride 97 L (98-107) mmol/L Creatinine 1.07 H (0.52-1.04) mg/dL Glucose 66 L (74-99) mg/dL Assessment and Plan Plan: Acute on chronic shortness of breath, most likely secondary to CHF. Reviewed the CAT scan of the chest and there is increased interstitial edema the patient is responding nicely to diuretics. No evidence of any airspace disease or pneumonia. No signs of any COPD/asthma exacerbation. proBNP level is elevated above 14,000. Nonspecific elevation of the troponins. EKG showing atrial fibrillation with a controlled rate. No acute ischemic changes. Most recent echocardiogram done on 01/05/2024 in the records shows systolic heart failure and repeat echocardiogram from 10/26/2024 showed an ejection fraction of 45 to 50% and the patient also has moderate MR, moderate to severe TR, severe pulm hypertension with a PA pressure of 68. The patient is responding to diuresis. No new complaints for now. Feeling less short of breath compared to yesterday. Chronic systolic heart failure Chronic pulmonary hypertension group 2/3 Valvular heart disease with moderate MR, moderate to severe TR Coronary artery disease with previous PCI and stenting of the LAD on 01/04/2024 COPD/asthma Chronic atrial fibrillation Right lateral abdominal wall hematoma post drainage and the patient is currently off anticoagulants Hypertension Hyperlipidemia Previous history of CVA/TIA Previous history of GI bleed History of nephrolithiasis History of melanoma, resected History of diverticulosis History of rheumatoid arthritis, currently inactive and stable Plan Keep the patient off anticoagulants. Continue IV Lasix 40 mg every 12 hours and the patient responding nicely to diuretics Keep oxygen 2 L/min nasal cannula and titrate oxygen flow to maintain saturation above 90% Continue Symbicort Continue DuoNeb updrafts No evidence of pneumonia CAT scan of the chest was reviewed Procalcitonin level is not elevated Anticoagulation was restarted utilizing Pradaxa Aldactone added to her regimen Will continue Plavix in combination with Pradaxa and watch for any signs of b leeding or hematoma formation Continue Cozaar 25 mg p.o. daily Aldactone 25 mg p.o. daily Lipitor 40 mg p.o. daily Will follow.
--- NOTE | 2025-02-14 14:20 | P.PN ---
Subjective Progress Note Date: 02/14/25 Reason for Consult (text): CHF exacerbation History of present illness: This is a 79-year-old female patient of Dr. Castorena with past medical history of coronary artery disease with prior stenting of the LAD as well as ischemic cardiomyopathy, chronic systolic heart failure, valvular heart disease, permanent atrial fibrillation, hypertension, dyslipidemia, chronic renal failure, COPD. We have been asked to evaluate the patient for CHF exacerbation. Patient states she came into the hospital due to shortness of breath. Patient has a recent history of abdominal wall hematoma initially diagnosed at [facility] on 01/21/2025 in the emergency center. Patient had undergone a CTA of the abdomen and pelvis which found intra-abdominal wall hematoma with active bleeding. Patient was on Coumadin at that time and INR 3.1. Patient was transferred to [facility] for further evaluation and treatment and apparently under went surgery 2 weeks ago and has been off Coumadin since. Blood pressure 118/82, heart rate 80s to 90s, pulse ox 90% on 2 L. Patient has been started on IV Lasix 40 mg every 12 hours. -EKG: Atrial fibrillation, IVCD, PVCs -Chest x-ray: Right lower lobe infiltrate correlate for pneumonia. -CTA chest: No pulmonary embolism. Small density posterior right lung. Infiltrate such as pneumonia or mass should be considered. -Laboratory studies: WBC 8.1, hemoglobin 9.8. BUN 16, creatinine 0.84, potassium 3.5. Troponins 0.081, 0.104, 0.101. proBNP 14,000. Procalcitonin less than 0.2. -Home cardiac medications: A atorvastatin 40 mg at bedtime, Plavix 75 mg daily, Lasix 40 mg daily, Imdur 30 mg daily, Lopressor 12.5 mg twice daily, warfarin. -Cardiac catheterization performed 12/24/2023 revealed severe disease of the LAD followed by PCI of the LAD on 01/04/2024. -Echocardiogram performed in the office on 10/26/2024 revealed EF 45 to 50%. Global LV hypokinesis without regional heterogeneity. Left ventricle filling ca nnot be assessed due to atrial fibrillation. No LVH. Moderate mitral regurgitation. Moderate to severe tricuspid regurgitation. Severely increased pulmonary artery systolic pressure of 68 mmHg. Trace to mild pulmonic regurgitation. 02/14 Patient seen and examined. Patient states that she is feeling weak and has decreased appetite. Patient has been maintained on IV Lasix 40 mg every 12 hours. Patient states that she has been unable to afford Farxiga which we will plan to discontinue. Blood pressure 114/66, heart rate 96, pulse ox 96% on 2 L nasal cannula. Repeat blood work reveals hemoglobin 10.1, potassium 3.1, chloride 97, creatinine 1.07. Noted that Coumadin has not been resumed. Patient states that she has not been able to afford Eliquis in the past as well. Physical examination: Gen: This is 79-year-old female in no acute distress. VS: reviewed HEENT: Head is atraumatic, normocephalic. Pupils equal, round. Sclerae is anicteric. NECK: Supple. No JVD. LUNGS: Clear to auscultation. No wheezes or rhonchi. No intercostal retractions. HEART: Irregular rate and rhythm. Systolic murmur. ABDOMEN: Soft No tenderness. EXTREMITIES: No pedal edema. No calf tenderness. NEUROLOGICAL: Patient is awake, alert and oriented x3. Assessment: Acute on chronic systolic heart failure with EF improved to 50% Chronic atrial fibrillation, rate controlled Intra-abdominal wall hematoma status post surgery 2 weeks ago, off Coumadin History of coronary artery disease with prior stenting of the LAD Ischemic cardiomyopathy Valvular heart disease with moderate mitral regurgitation, moderate to severe tricuspid regurgitation Hypertension Dyslipidemia Chronic renal failure COPD Plan: Continue patient's home cardiac medications with the following changes Start patient on Pradaxa 150 mg twice daily Discontinue Imdur Increase Lopressor to 25 mg twice daily Start patient on losartan 25 mg daily and Aldactone 25 mg daily Order Ferrlecit x 1 dose today No need to repeat echocardiogram Continue IV Lasix 40 mg every 12 hours Monitor VIKASH, daily weights, electrolytes and renal function Further recommendations to follow based upon clinical course Nurse practitioner note has been reviewed, I agree with documented findings and plan of care. Patient was seen and examined. Objective - Vital Signs Vital signs: Vital Signs Temp 98.2 F 02/14/25 12:02 Pulse 96 02/14/25 12:02 Resp 16 02/14/25 12:02 BP 114/66 02/14/25 12:02 Pulse Ox 96 02/14/25 12:02 FiO2 Intake & Output 04/23/25 04/24/25 04/24/25 18:59 06:59 18:59 Intake Total 240 240 Output Total 1000 1000 Balance -760 -760 Weight 78.471 kg 78 kg Intake: Oral 240 240 Output: Urine 1000 1000 Other: Voiding Method External Catheter # Voids 1 - Labs CBC & Chem 7: 02/14/25 05:16 02/14/25 05:16 Labs: Abnormal Lab Results - Last 24 Hours (Table) 02/14/25 02/14/25 Range/Units 05:16 05:16 RBC 3.16 L (4.10-5.20) 10*6/uL Hgb 10.1 L (12.0-15.0) g/dL Hct 31.6 L (37.2-46.3) % MCV 100.0 H (80.0-97.0) fL Potassium 3.1 L (3.5-5.1) mmol/L Chloride 97 L (98-107) mmol/L Creatinine 1.07 H (0.52-1.04) mg/dL Glucose 66 L (74-99) mg/dL
[2025-02-14] MEDS: SPIRONOLACTONE 25 MG TAB PO SCH (14:34)
[2025-02-14] MEDS: METOPROLOL TARTRATE 12.5 MG TAB PO STA (14:34)
[2025-02-14] MEDS: DABIGATRAN 150 MG CAP PO SCH (14:34)
[2025-02-14] MEDS: LOSARTAN 25 MG TAB PO SCH (14:34)
[2025-02-14] MEDS: SODIUM FERRIC GLUCONAT-SUCROSE 125 MG in SODIUM CHLORIDE 0.9% 100 ML IVPB ONE (14:34)
[2025-02-14 16:13] LABS: Glucose,Whole Blood 129 mg/dL (70-110)
[2025-02-14] MEDS: BENZONATATE 100 MG CAP PO PRN (20:00)
[2025-02-14] MEDS: METOPROLOL TARTRATE 25 MG TAB PO SCH (20:01)
[2025-02-14 23:57] LABS: Glucose,Whole Blood 127 mg/dL (70-110)
[2025-02-15 05:59] LABS: Glucose,Whole Blood 109 mg/dL (70-110)
[2025-02-15 06:33] LABS: HCT 34.3 % (37.2-46.3); MCH 31.7 pg (27.0-32.0); MCHC 32.1 g/dL (32.0-37.0); MCV 98.8 fL (80.0-97.0); Mean Platelet Volume 9.6 fL (9.5-12.2); Platelet Count 361 10*3/uL (140-440); RBC 3.47 10*6/uL (4.10-5.20); RDW 17.2 % (11.5-14.5); WBC 6.24 10*3/uL (4.50-10.00)
[2025-02-15 06:46] LABS: African American GFR (CKD) 47 (>60 ml/min/1.73 sqM); Anion Gap 11 mmol/L; Blood Urea Nitrogen 20 mg/dL (7-17); Calcium 9.4 mg/dL (8.4-10.2); Carbon Dioxide 30 mmol/L (22-30); Chloride 96 mmol/L (98-107); Glucose 98 mg/dL (74-99); Magnesium 1.7 mg/dL (1.6-2.3); Non-African American GFR(CKD) 41 (>60 ml/min/1.73 sqM); Sodium 137 mmol/L (137-145)
[2025-02-15 06:49] LABS: Potassium 2.7 mmol/L (3.5-5.1)
[2025-02-15] MEDS ORDERED: POTASSIUM CHLORIDE 20 MEQ in WATER FOR INJECTION 1 100ML.BAG IVPB STA (06:56)
[2025-02-15] MEDS: POTASSIUM CHLORIDE ER 20 MEQ TAB.ER PO STA (08:46)
[2025-02-15] MEDS: IRON PS CMPLX/VIT B12/FA 1 EACH CAP PO SCH (08:47)
[2025-02-15] MEDS: MAGNESIUM SULFATE-D5W PMX 1 GM in DEXTROSE/WATER 1 100ML.BAG IVPB SCH (08:51)
[2025-02-15] MEDS: POTASSIUM CHLORIDE 10 MEQ in WATER FOR INJECTION 1 100ML.BAG IVPB SCH (08:51)
[2025-02-15] MEDS ORDERED: MAGNESIUM SULFATE-D5W PMX 1 GM in DEXTROSE/WATER 1 100ML.BAG IVPB SCH (09:00)
[2025-02-15] MEDS ORDERED: POTASSIUM CHLORIDE ER 20 MEQ TAB.ER PO SCH (10:00)
[2025-02-15 11:40] LABS: Glucose,Whole Blood 140 mg/dL (70-110)
--- NOTE | 2025-02-15 12:20 | P.PN ---
Subjective Progress Note Date: 02/15/25 Reason for Consult (text): CHF exacerbation History of present illness: This is a 79-year-old female patient of Dr. Castorena with past medical history of coronary artery disease with prior stenting of the LAD as well as ischemic cardiomyopathy, chronic systolic heart failure, valvular heart disease, permanent atrial fibrillation, hypertension, dyslipidemia, chronic renal failure, COPD. We have been asked to evaluate the patient for CHF exacerbation. Patient states she came into the hospital due to shortness of breath. Patient has a recent history of abdominal wall hematoma initially diagnosed at [facility] on 01/21/2025 in the emergency center. Patient had undergone a CTA of the abdomen and pelvis which found intra-abdominal wall hematoma with active bleeding. Patient was on Coumadin at that time and INR 3.1. Patient was transferred to [facility] for further evaluation and treatment and apparently under went surgery 2 weeks ago and has been off Coumadin since. Blood pressure 118/82, heart rate 80s to 90s, pulse ox 90% on 2 L. Patient has been started on IV Lasix 40 mg every 12 hours. -EKG: Atrial fibrillation, IVCD, PVCs -Chest x-ray: Right lower lobe infiltrate correlate for pneumonia. -CTA chest: No pulmonary embolism. Small density posterior right lung. Infiltrate such as pneumonia or mass should be considered. -Laboratory studies: WBC 8.1, hemoglobin 9.8. BUN 16, creatinine 0.84, potassium 3.5. Troponins 0.081, 0.104, 0.101. proBNP 14,000. Procalcitonin less than 0.2. -Home cardiac medications: A atorvastatin 40 mg at bedtime, Plavix 75 mg daily, Lasix 40 mg daily, Imdur 30 mg daily, Lopressor 12.5 mg twice daily, warfarin. -Cardiac catheterization performed 12/24/2023 revealed severe disease of the LAD followed by PCI of the LAD on 01/04/2024. -Echocardiogram performed in the office on 10/26/2024 revealed EF 45 to 50%. Global LV hypokinesis without regional heterogeneity. Left ventricle filling ca nnot be assessed due to atrial fibrillation. No LVH. Moderate mitral regurgitation. Moderate to severe tricuspid regurgitation. Severely increased pulmonary artery systolic pressure of 68 mmHg. Trace to mild pulmonic regurgitation. 02/14 Patient seen and examined. Patient states that she is feeling weak and has decreased appetite. Patient has been maintained on IV Lasix 40 mg every 12 hours. Patient states that she has been unable to afford Farxiga which we will plan to discontinue. Blood pressure 114/66, heart rate 96, pulse ox 96% on 2 L nasal cannula. Repeat blood work reveals hemoglobin 10.1, potassium 3.1, chloride 97, creatinine 1.07. Noted that Coumadin has not been resumed. Patient states that she has not been able to afford Eliquis in the past as well. 02/15 Patient seen and examined. Yesterday multiple medication changes were made including starting the patient on losartan and Aldactone and Pradaxa, Lopressor was increased to 25 mg twice daily, and Farxiga was increased, Imdur was discontinued. We had ordered 1 dose of Ferrlecit. Patient is currently on IV Lasix 40 mg every 12 hours. Blood pressure 101/55, heart rate 79, pulse ox 98% on room air. Repeat blood work reveals potassium 2.7, BUN 20, creatinine 1.26, hemoglobin 11. Patient's potassium has been replaced by admitting physician. Physical examination: Gen: This is 79-year-old female in no acute distress. VS: reviewed HEENT: Head is atraumatic, normocephalic. Pupils equal, round. Sclerae is anicteric. NECK: Supple. No JVD. LUNGS: Clear to auscultation. No wheezes or rhonchi. No intercostal retractions. HEART: Irregular rate and rhythm. Systolic murmur. ABDOMEN: Soft No tenderness. EXTREMITIES: No pedal edema. No calf tenderness. NEUROLOGICAL: Patient is awake, alert and oriented x3. Assessment: Acute on chronic systolic heart failure with EF improved to 50% Chronic atrial fibrillation, rate controlled Intra-abdominal wall hematoma status post surgery 2 weeks ago, off Coumadin History of coronary artery disease with prior stenting of the LAD Ischemic cardiomyopathy Valvular heart disease with moderate mitral regurgitation, moderate to severe tricuspid regurgitation Hypertension Dyslipidemia Chronic renal failure COPD Plan: Continue patient's home cardiac medications with the following changes Continue the addition of Pradaxa 150 mg twice daily, losartan 25 mg daily and Aldactone 25 mg daily Discontinue Imdur Continue higher dose of Lopressor 25 mg twice daily No need to repeat echocardiogram Continue IV Lasix 40 mg every 12 hours Monitor VIKASH, daily weights, electrolytes and renal function Further recommendations to follow based upon clinical course Nurse practitioner note has been reviewed, I agree with documented findings and plan of care. Patient was seen and examined. Objective - Vital Signs Vital signs: Vital Signs Temp 98.2 F 02/15/25 08:14 Pulse 82 02/15/25 09:34 Resp 17 02/15/25 08:14 BP 105/66 02/15/25 08:14 Pulse Ox 96 02/15/25 09:26 FiO2 Intake & Output 02/14/25 02/15/25 02/15/25 18:59 06:59 18:59 Intake Total 580 400 Output Total 1600 1100 600 Balance -1020 -1100 -200 Weight 74.6 kg Intake: Intake, IV Titration 100 400 Amount Magnesium Sulfate-D5w Pmx 200 1 gm In Dextrose/Water 1 100ml.bag @ 100 mls/hr IVPB Q1H [facility] Rx#: [id number] Potassium Chloride 10 meq 200 In Water For Injection 1 100ml.bag @ 100 mls/hr IVPB Q1H [facility] Rx#: [id number] Sodium Ferric Gluconat- 100 Sucrose 125 mg In Sodium Chloride 0.9% 100 ml @ 100 mls/hr IVPB ONCE ONE Rx#:[id number] Oral 480 Output: Urine 1600 1100 600 Other: Voiding Method External Catheter - Labs CBC & Chem 7: 02/15/25 06:14 02/15/25 06:14 Labs: Abnormal Lab Results - Last 24 Hours (Table) 02/14/25 02/14/25 02/15/25 Range/Units 16:11 23:55 06:14 RBC 3.47 L (4.10-5.20) 10*6/uL Hgb 11.0 L (12.0-15.0) g/dL Hct 34.3 L (37.2-46.3) % MCV 98.8 H (80.0-97.0) fL Potassium (3.5-5.1) mmol/L Chloride (98-107) mmol/L BUN (7-17) mg/dL Creatinine (0.52-1.04) mg/dL POC Glucose (mg/dL) 129 H 127 H (70-110) mg/dL 02/15/25 Range/Units 06:14 RBC (4.10-5.20) 10*6/uL Hgb (12.0-15.0) g/dL Hct (37.2-46.3) % MCV (80.0-97.0) fL Potassium 2.7 L* (3.5-5.1) mmol/L Chloride 96 L (98-107) mmol/L BUN 20 H (7-17) mg/dL Creatinine 1.26 H (0.52-1.04) mg/dL POC Glucose (mg/dL) (70-110) mg/dL
[2025-02-15 14:40] LABS: African American GFR (CKD) 38 (>60 ml/min/1.73 sqM); Anion Gap 15 mmol/L; Blood Urea Nitrogen 18 mg/dL (7-17); Calcium 9.2 mg/dL (8.4-10.2); Carbon Dioxide 27 mmol/L (22-30); Chloride 98 mmol/L (98-107); Glucose 115 mg/dL (74-99); Non-African American GFR(CKD) 33 (>60 ml/min/1.73 sqM); Potassium 3.6 mmol/L (3.5-5.1); Sodium 140 mmol/L (137-145)
--- NOTE | 2025-02-15 14:46 | P.PN ---
Subjective Progress Note Date: 02/15/25 Hospital course: Patient is a pleasant 79-year-old female with a past medical history of CAD status post recent stenting, chronic persistent atrial fibrillation on anticoagulation with Coumadin, chronic systolic heart failure with previously known EF of 30 to 35%, hypertension, COPD with chronic hypoxic respiratory failure home oxygen dependent on 2 L at all times, and stage IIIb chronic kidney disease. She follows with Senior Systems Developer. Dr. Bajwa and PCP Dr. Mcneal. She presented to the hospital on 02/12/2025 with a chief complaint of shortness of breath status post discharged from rehabilitation facility after undergoing interventional radiology for drainage of abdominal hematoma. Upon arrival to our facility, patient underwent evaluation in the emergency department. Vital signs upon arrival show blood pressure 129/86, heart rate 103, respiratory rate 24, temp 97.7 F, and SpO2 95% on baseline home oxygen 2 L EKG was completed showing atrial fibrillation at 106 bpm with occasional PVC. Chest x-ray revealing right lower lobe infiltrate. Labs completed and reviewed. CBC showing macrocytic anemia with hemoglobin of 9.8 and MCV of 97.4. Coagulation profile showing a subtherapeutic INR of 1.0 (as pt has been holding warfarin secondary to abdominal wall hematoma) and a low PTT of 21.2. BMP showing non- anion gap metabolic acidosis with chloride of 110, bicarb 21, and anion gap of 8. Blood glucose was 105. Calcium 9.3. Liver profile showing elevated total bili of 1.9 and AST of 37. CRP elevated at 2.8. proBNP was 14,000. Troponin w as elevated at 0.081. CTA chest completed negative for pulmonary emboli showing a small density posterior right lung likely infiltrate, however unable to rule out mass recommending follow-up imaging. Troponins trended resulting at 0.081, 0.104, 0.101. Physical exam: Patient seen and fully evaluated at bedside she reports feeling slightly better today but still not at baseline. Patient reports she is coughing and bringing up more phlegm today and reports her shortness of breath is better at rest but remains significantly worsened with exertion. Vital signs reviewed and stable. General: Nontoxic, no distress and appears stated age. Derm: Skin warm and dry, normal coloration for ethnicity. Head: Atraumatic, normocephalic and symmetric. Eyes: EOMs intact, no lid lag, and anicteric sclera Mouth: no lip lesions, mucus membranes moist Cardiovascular: Irregularly irregular, systolic murmur, positive posterior tibial pulses bilaterally, and cap refill < 2 seconds. Lungs: Respirations even, regular, and unlabored on room air. Lungs diminished with bibasilar crackles and diffuse expiratory wheezes Abdominal: soft, nontender to palpation, no guarding, no appreciable organomegaly. small area of bruising to suprapubic region Ext: ROM intact. No gross muscle atrophy, no edema, no contractures Neuro: Speech clear, face symmetrical and CN II-XII grossly intact with no noted focal neuro deficits Psych: Alert and oriented to person, place, time, and situation. Appropriate and pleasant affect. Assessment and Plan of Care: Acute HFrEF, last echo showing lvef of 30-35% Elevated troponins, likely type II NSTEMI secondary to above Chronic persistent atrial fibrillation Hypertension History of CAD status post stenting -Cardiology consulted, discussed with auditor supervisor and cardiac CONCRETE BOOM OPERATOR recommending continuation of IV diuretic with Lasix 40 mg IV every 12 hours and adding on Aldactone 25 mg daily. -Telemetry monitoring -Troponins trended resulting at 0.081, 0.104, 0.101. ProBNP 14,000 -Daily weights and Close monitoring of I's and O's -Cardiac diet -Lasix 40 mg IVP every 12 hours -Continue cardiac medication regimen with Plavix 75 mg daily, atorvastatin 40 mg nightly, Farxiga 5 mg daily, isosorbide mononitrate 30 mg daily, and metoprolol 12.5 mg twice daily. -Continued close monitoring of electrolytes while diuresing. -Coumadin held at this time secondary to abdominal hematoma status postdrainage by IR. Hypokalemia Hypomagnesemia -Potassium 2.7. Orders placed for K-Dur 40 mEq p.o. every 2 hours x 2 doses and mag sulfate 2 g IVPB. We will continue to monitor closely with repeat a.m. labs and replace abnormal electrolyte values if indicated based upon these findings COPD with chornic hypoxic respiraotry failure on NC. Large pulmonary density posterior right lung, likely secondary to infiltrate - Pulmonary evaluated and discussed plan of care with hotel reservationist stating he personally reviewed CT no signs of underlying mass or consolidation. Increased shortness of breath likely secondary to vascular congestion resulting from CHF exacerbation. - Continue Ventolin nebulizers every 6 hours as needed for wheezing/shortness of breath, Symbicort 160-4.5 mcg inhaler 2 puffs twice daily, and scheduled DuoNebs 4 times daily with Singulair 10 mg nightly. - Continue supplemental oxygen to maintain SpO2 equal to or greater than 90%. Hypoglycemia. Patient had isolated episode of hypoglycemia this morning with blood glucose of 66. Will place patient on glycemic protocol with plan of care glucose checks every 6 hours if no further episodes of hypoglycemia over the next 24 hours may discontinue. Neuropathy. Continue home lyrica 100 mg BID Major depression disorder. Continue home medication regimen with cymbalta 60 mg daily Pneumonia ruled out, procalcitonin negative. IV antibiotics discontinued. Data and imaging reviewed: -Vital signs reviewed. Blood pressure 105/66, heart rate 79, respiratory rate 1 7, temp 98.2 F, and SpO2 of 95% on room air. -Morning labs reviewed. CBC showing stable macrocytic anemia with hemoglobin of 11.0. BMP showing hypokalemia with potassium of 2.7, hypochloremia with chloride of 96. Elevated renal function with BUN of 20, creatinine 1.26, GFR 41. Blood glucose 98. Magnesium 1.7 CODE STATUS: Full code DVT prophylaxis: ARI dotson and SCDs, Coumadin held secondary to recent diagnosis of abdominal hematoma status post IR drainage Discussed with: Patient, RN, auditor supervisor and cardiology CONCRETE BOOM OPERATOR Anticipated discharge date: Pending clinical course Anticipated discharge place: Pending clinical course Patient was seen independently by Nurse Pracitioner. This document was prepared using [employer] dictation software. Please allow for errors in director visual, while rare they do occur. Rishi Hernandez NP rendered care for this patient independently, reviewed the findings and plan as documented in the note above and agree with plan. I did not physically speak with or examine the patient on this date. Objective - Vital Signs Vital signs: Vital Signs Temp 98.2 F 02/15/25 08:14 Pulse 79 02/15/25 08:14 Resp 17 02/15/25 08:14 BP 105/66 02/15/25 08:14 Pulse Ox 95 02/15/25 08:14 FiO2 Intake & Output 02/14/25 02/15/25 02/15/25 18:59 06:59 18:59 Intake Total 580 Output Total 1600 1100 Balance -1020 -1100 Weight 74.6 kg Intake: Intake, IV Titration 100 Amount Sodium Ferric Gluconat- 100 Sucrose 125 mg In Sodium Chloride 0.9% 100 ml @ 100 mls/hr IVPB ONCE ONE Rx#:[id number] Oral 480 Output: Urine 1600 1100 Other: Voiding Method External Catheter - Labs CBC & Chem 7: 02/15/25 06:14 02/15/25 14:15 Labs: Abnormal Lab Results - Last 24 Hours (Table) 02/14/25 02/14/25 02/15/25 Range/Units 16:11 23:55 06:14 RBC 3.47 L (4.10-5.20) 10*6/uL Hgb 11.0 L (12.0-15.0) g/dL Hct 34.3 L (37.2-46.3) % MCV 98.8 H (80.0-97.0) fL Potassium (3.5-5.1) mmol/L Chloride (98-107) mmol/L BUN (7-17) mg/dL Creatinine (0.52-1.04) mg/dL POC Glucose (mg/dL) 129 H 127 H (70-110) mg/dL 02/15/25 Range/Units 06:14 RBC (4.10-5.20) 10*6/uL Hgb (12.0-15.0) g/dL Hct (37.2-46.3) % MCV (80.0-97.0) fL Potassium 2.7 L* (3.5-5.1) mmol/L Chloride 96 L (98-107) mmol/L BUN 20 H (7-17) mg/dL Creatinine 1.26 H (0.52-1.04) mg/dL POC Glucose (mg/dL) (70-110) mg/dL
--- NOTE | 2025-02-15 16:18 | P.PN ---
Subjective Progress Note Date: 02/15/25 This is a 79-year-old female patient was being seen in consultation for shortness of breath. The patient has a large number of medical problems and comorbidities. She was in the hospital in December 2024 and she was discharged home on 01/18/2025 after being treated for an acute on chronic respiratory failu re due to COPD/asthma exacerbation and purulent tracheobronchitis. She is known to have CAD, CHF with impaired LV function with an ejection fraction of 30 to 35% and she has chronic atrial fibrillation. Following her discharge, the patient came into the emergency department on 01/21/2025 with abdominal pain and at that time, CAT scan of the abdomen and pelvis showed a large interpretation versus intramuscular hematoma of the right lateral abdominal wall measuring 14 x 6 x 18 cm in size. The patient accordingly was transferred to [facility] with I believe the hematoma was drained. Noted, at that time, the patient was also receiving anticoagulants with warfarin and her INR was slightly above therapeutic range. Since then, the patient has been taken off anticoagulants. The patient is coming into the hospital with worsening shortness of breath. She denies having any chest pain. The hematoma over the right lateral abdominal wall seems to be recovered and there is no active issues regarding that problem. For now, she remains in atrial fibrillation. Her chest x-ray was noted and it shows no significant airspace disease. There is cardiomegaly and pulm vessel congestion. CTA of the chest was also done and showed no evidence of any pulmonary embolism. There is a small density in the posterior right lung which is a nonspecific findings. There is also evidence of pulm vessel congestion specially in the mid and upper lobes bilaterally. The patient's white cell count currently is at 8.1 with a hemoglobin 9.8 and a platelet count of 384. Coagulation profile is within normal limits. BUN 16 with a creatinine of 0.8. Sodium is at 139 and potassium level is at 3.5. Troponins are 0.08 and 0.1 and 0.1 respectively and a proBNP level is 14,000. Procalcitonin level is at 0.2. The LFTs are essentially within normal limits. Total protein is at 6.2 with a albumin level of 3.5. The patient was given IV Lasix and currently she is on Lasix 40 mg IV push every 12 hours. She is producing excellent amount of urine output and she is feeling better while she is being diuresed. She remains on metoprolol 12.5 mg p.o. twice a day. She is on Symbicort as maintenance and DuoNeb nebulizer treatments [id number]. She is on Plavix. No anticoagulants for now. On today's evaluation 02/14/2025, the patient is being seen for a follow-up. The patient is doing well. She has diuresed adequately over the past 24 hours and the patient remains on IV Lasix. She continues to produce adequate amount of urine output. She remains on oxygen 2 L/min nasal cannula. She remains in atrial fibrillation. No chest pain. No cough or sputum production. She was restarted on Pradaxa. She remains on Symbicort and DuoNeb number of treatments [id number]. IV Lasix 40 mg every 12 hours. Rest of the medications are essentially unchanged. Aldactone was also added to her regimen. Sodium levels at 137 with a potassium level of 3.1, BUN 17 with a creatinine of 1.07 and a serum bicarbonate 30. White cell count is at 7 with a hemoglobin of 10.1. On today's evaluation of 02/15/2025, the patient is feeling better. Some limited cough. No significant sputum production. Continues to receive diuretics with IV Lasix and the patient's fluid balance is negative and remains negative over the past 24 hours. No hemoptysis. No pleurisy. No chest pain. No altered mentation. No other significant events overnight. Net fluid balance is 2 L over the past 24 hours. BUN is 18 with a creatinine of 1.5. Sodium is at 140 and a potassium level is at 3.6. No fever. No chills. No other complaints otherwise. On a separate note, the patient is still being seen by cardiology. She is on Cozaar, Lopressor and Aldactone 25 mg p.o. daily. She remains on Plavix. She remains on statins with Lipitor 40 mg p.o. daily. Rest of the home medications have been resumed. She is on Symbicort and DuoNeb nebulizer treatments [id number]. Oxygenation is stable and the patient is currently on 2 L of O2 nasal cannula with pulse ox of 94 to 98%. Objective - Vital Signs Vital signs: Vital Signs Temp 98.1 F 02/15/25 11:42 Pulse 79 02/15/25 12:36 Resp 17 02/15/25 11:42 BP 101/55 02/15/25 11:42 Pulse Ox 98 02/15/25 11:42 FiO2 Intake & Output 02/14/25 02/15/25 02/15/25 18:59 06:59 18:59 Intake Total 580 640 Output Total 1600 1100 700 Balance -1020 -1100 -60 Weight 74.6 kg Intake: Intake, IV Titration 100 400 Amount Magnesium Sulfate-D5w Pmx 200 1 gm In Dextrose/Water 1 100ml.bag @ 100 mls/hr IVPB Q1H [facility] Rx#: [id number] Potassium Chloride 10 meq 200 In Water For Injection 1 100ml.bag @ 100 mls/hr IVPB Q1H [facility] Rx#: [id number] Sodium Ferric Gluconat- 100 Sucrose 125 mg In Sodium Chloride 0.9% 100 ml @ 100 mls/hr IVPB ONCE ONE Rx#:[id number] Oral 480 240 Output: Urine 1600 1100 700 Other: Voiding Method External Catheter - Exam GENERAL EXAM: Alert, pleasant 79-year-old female, on 2 L nasal cannula, comfortable in no apparent distress. HEAD: Normocephalic. EYES: Normal reaction of pupils, equal size. NOSE: Clear with pink turbinates. THROAT: No erythema or exudates. NECK: No masses, no JVD. CHEST: No chest wall deformity. LUNGS: Equal air entry with bilateral end expiratory wheeze. Few crackles at lung base bilaterally. Breath sounds are quite diminished bilaterally. CVS: S1 and S2 normal with no audible murmur, irregular consistent with atrial fibrillation. ABDOMEN: No hepatosplenomegaly, normal bowel sounds, no guarding or rigidity. SPINE: No scoliosis or deformity SKIN: No rashes CENTRAL NERVOUS SYSTEM: No focal deficits, tone is normal in all 4 extremities. EXTREMITIES: There is no peripheral edema. No clubbing, no cyanosis. Perip heral pulses are intact. - Labs CBC & Chem 7: 02/15/25 06:14 02/15/25 14:15 Labs: Abnormal Lab Results - Last 24 Hours (Table) 02/14/25 02/14/25 02/15/25 Range/Units 16:11 23:55 06:14 RBC 3.47 L (4.10-5.20) 10*6/uL Hgb 11.0 L (12.0-15.0) g/dL Hct 34.3 L (37.2-46.3) % MCV 98.8 H (80.0-97.0) fL Potassium (3.5-5.1) mmol/L Chloride (98-107) mmol/L BUN (7-17) mg/dL Creatinine (0.52-1.04) mg/dL POC Glucose (mg/dL) 129 H 127 H (70-110) mg/dL 02/15/25 02/15/25 Range/Units 06:14 11:38 RBC (4.10-5.20) 10*6/uL Hgb (12.0-15.0) g/dL Hct (37.2-46.3) % MCV (80.0-97.0) fL Potassium 2.7 L* (3.5-5.1) mmol/L Chloride 96 L (98-107) mmol/L BUN 20 H (7-17) mg/dL Creatinine 1.26 H (0.52-1.04) mg/dL POC Glucose (mg/dL) 140 H (70-110) mg/dL Assessment and Plan Plan: Acute on chronic shortness of breath, most likely secondary to CHF. Reviewed the CAT scan of the chest and there is increased interstitial edema the patient is responding nicely to diuretics. No evidence of any airspace disease or pneumonia. No signs of any COPD/asthma exacerbation. proBNP level is elevated above 14,000. Nonspecific elevation of the troponins. EKG showing atrial fibrillation with a controlled rate. No acute ischemic changes. Most recent echocardiogram done on 01/05/2024 in the records shows systolic heart failure and repeat echocardiogram from 10/26/2024 showed an ejection fraction of 45 to 50% and the patient also has moderate MR, moderate to severe TR, severe pulm hypertension with a PA pressure of 68. The patient is responding to diuresis. No new complaints for now. Feeling less short of breath compared to yesterday. Chronic systolic heart failure Chronic pulmonary hypertension group 2/3 Valvular heart disease with moderate MR, moderate to severe TR Coronary artery disease with previous PCI and stenting of the LAD on 01/04/2024 COPD/asthma Chronic atrial fibrillation Right lateral abdominal wall hematoma post drainage and the patient is currently off anticoagulants Hypertension Hyperlipidemia Previous history of CVA/TIA Previous history of GI bleed History of nephrolithiasis History of melanoma, resected History of diverticulosis History of rheumatoid arthritis, currently inactive and stable Plan Clinically improving and suggest continuing diuresis for another 24 hours. Remains in negative fluid balance. Keep the patient off anticoagulants. Continue IV Lasix 40 mg every 12 hours and the patient responding nicely to diuretics Keep oxygen 2 L/min nasal cannula and titrate oxygen flow to maintain saturation above 90% Continue Symbicort Continue DuoNeb updrafts No evidence of pneumonia CAT scan of the chest was reviewed Procalcitonin level is not elevated Anticoagulation was restarted utilizing Pradaxa Aldactone added to her regimen, 25 mg p.o. daily Will continue Plavix in combination with Pradaxa and watch for any signs of bleeding or hematoma formation Continue Cozaar 25 mg p.o. daily Aldactone 25 mg p.o. daily Lipitor 40 mg p.o. daily Will follow.
[2025-02-15 17:07] LABS: Glucose,Whole Blood 114 mg/dL (70-110)
[2025-02-15 19:56] LABS: Glucose,Whole Blood 149 mg/dL (70-110)
[2025-02-16 06:18] LABS: Glucose,Whole Blood 98 mg/dL (70-110)
[2025-02-16 07:24] LABS: HCT 33.5 % (37.2-46.3); HGB 10.8 g/dL (12.0-15.0); MCH 31.9 pg (27.0-32.0); MCHC 32.2 g/dL (32.0-37.0); MCV 98.8 fL (80.0-97.0); Platelet Count 405 10*3/uL (140-440); RBC 3.39 10*6/uL (4.10-5.20); RDW 17.4 % (11.5-14.5)
[2025-02-16 07:50] LABS: African American GFR (CKD) 35 (>60 ml/min/1.73 sqM); Anion Gap 8 mmol/L; Blood Urea Nitrogen 20 mg/dL (7-17); Calcium 9.7 mg/dL (8.4-10.2); Carbon Dioxide 29 mmol/L (22-30); Chloride 97 mmol/L (98-107); Glucose 94 mg/dL (74-99); Magnesium 2.3 mg/dL (1.6-2.3); Non-African American GFR(CKD) 30 (>60 ml/min/1.73 sqM); Potassium 3.6 mmol/L (3.5-5.1); Sodium 134 mmol/L (137-145)
[2025-02-16] MEDS: SPIRONOLACTONE 25 MG TAB PO SCH (09:49)
--- NOTE | 2025-02-16 10:05 | P.PN ---
Subjective Progress Note Date: 02/16/25 Reason for Consult (text): CHF exacerbation History of present illness: This is a 79-year-old female patient of Dr. Castorena with past medical history of coronary artery disease with prior stenting of the LAD as well as ischemic cardiomyopathy, chronic systolic heart failure, valvular heart disease, permanent atrial fibrillation, hypertension, dyslipidemia, chronic renal failure, COPD. We have been asked to evaluate the patient for CHF exacerbation. Patient states she came into the hospital due to shortness of breath. Patient has a recent history of abdominal wall hematoma initially diagnosed at [facility] on 01/21/2025 in the emergency center. Patient had undergone a CTA of the abdomen and pelvis which found intra-abdominal wall hematoma with active bleeding. Patient was on Coumadin at that time and INR 3.1. Patient was transferred to [facility] for further evaluation and treatment and apparently under went surgery 2 weeks ago and has been off Coumadin since. Blood pressure 118/82, heart rate 80s to 90s, pulse ox 90% on 2 L. Patient has been started on IV Lasix 40 mg every 12 hours. -EKG: Atrial fibrillation, IVCD, PVCs -Chest x-ray: Right lower lobe infiltrate correlate for pneumonia. -CTA chest: No pulmonary embolism. Small density posterior right lung. Infiltrate such as pneumonia or mass should be considered. -Laboratory studies: WBC 8.1, hemoglobin 9.8. BUN 16, creatinine 0.84, potassium 3.5. Troponins 0.081, 0.104, 0.101. proBNP 14,000. Procalcitonin less than 0.2. -Home cardiac medications: A atorvastatin 40 mg at bedtime, Plavix 75 mg daily, Lasix 40 mg daily, Imdur 30 mg daily, Lopressor 12.5 mg twice daily, warfarin. -Cardiac catheterization performed 12/24/2023 revealed severe disease of the LAD followed by PCI of the LAD on 01/04/2024. -Echocardiogram performed in the office on 10/26/2024 revealed EF 45 to 50%. Global LV hypokinesis without regional heterogeneity. Left ventricle filling ca nnot be assessed due to atrial fibrillation. No LVH. Moderate mitral regurgitation. Moderate to severe tricuspid regurgitation. Severely increased pulmonary artery systolic pressure of 68 mmHg. Trace to mild pulmonic regurgitation. 02/14 Patient seen and examined. Patient states that she is feeling weak and has decreased appetite. Patient has been maintained on IV Lasix 40 mg every 12 hours. Patient states that she has been unable to afford Farxiga which we will plan to discontinue. Blood pressure 114/66, heart rate 96, pulse ox 96% on 2 L nasal cannula. Repeat blood work reveals hemoglobin 10.1, potassium 3.1, chloride 97, creatinine 1.07. Noted that Coumadin has not been resumed. Patient states that she has not been able to afford Eliquis in the past as well. 02/15 Patient seen and examined. Yesterday multiple medication changes were made including starting the patient on losartan and Aldactone and Pradaxa, Lopressor was increased to 25 mg twice daily, and Farxiga was increased, Imdur was discontinued. We had ordered 1 dose of Ferrlecit. Patient is currently on IV Lasix 40 mg every 12 hours. Blood pressure 101/55, heart rate 79, pulse ox 98% on room air. Repeat blood work reveals potassium 2.7, BUN 20, creatinine 1.26, hemoglobin 11. Patient's potassium has been replaced by admitting physician. 02/16 Patient seen and examined. Patient has had a bump in her creatinine. Creatinine 1.62 and BUN 20. She is currently on IV Lasix, Aldactone and losartan. Blood pressure 96/50, heart rate 61, pulse ox 96% on 2 L nasal cannula. Physical examination: Gen: This is 79-year-old female in no acute distress. VS: reviewed HEENT: Head is atraumatic, normocephalic. Pupils equal, round. Sclerae is anicteric. NECK: Supple. No JVD. LUNGS: Clear to auscultation. No wheezes or rhonchi. No intercostal retractions. HEART: Irregular rate and rhythm. Systolic murmur. ABDOMEN: Soft No tenderness. EXTREMITIES: No pedal edema. No calf tenderness. NEUROLOGICAL: Patient is awake, alert and oriented x3. Assessment: Acute on chronic systolic heart failure with EF improved to 50% Chronic atrial fibrillation, rate controlled Intra-abdominal wall hematoma status post surgery 2 weeks ago, off Coumadin History of coronary artery disease with prior stenting of the LAD Ischemic cardiomyopathy Valvular heart disease with moderate mitral regurgitation, moderate to severe tricuspid regurgitation Hypertension Dyslipidemia Chronic renal failure COPD Plan: Continue patient's home cardiac medications with the following changes Continue the addition of Pradaxa 150 mg twice daily Discontinue Imdur Continue higher dose of Lopressor 25 mg twice daily Discontinue IV Lasix, and losartan Decrease Aldactone to 12.5 mg daily Start patient on IV fluids 0.9 normal saline at 75 cc/h Further recommendations to follow based upon clinical course Nurse practitioner note has been reviewed, I agree with documented findings and plan of care. Patient was seen and examined. Objective - Vital Signs Vital signs: Vital Signs Temp 97.5 F L 02/16/25 08:03 Pulse 61 02/16/25 08:03 Resp 16 02/16/25 08:03 BP 96/50 02/16/25 08:03 Pulse Ox 96 02/16/25 08:03 FiO2 Intake & Output 02/15/25 02/16/25 02/16/25 18:59 06:59 18:59 Intake Total 1120 Output Total 700 100 700 Balance 420 -100 -700 Weight 75.8 kg Intake: Intake, IV Titration 400 Amount Magnesium Sulfate-D5w Pmx 200 1 gm In Dextrose/Water 1 100ml.bag @ 100 mls/hr IVPB Q1H [facility] Rx#: [id number] Potassium Chloride 10 meq 200 In Water For Injection 1 100ml.bag @ 100 mls/hr IVPB Q1H [facility] Rx#: [id number] Oral 720 Output: Urine 700 100 700 Other: Voiding Method Bedside Commode - Labs CBC & Chem 7: 02/16/25 06:30 02/16/25 06:30 Labs: Abnormal Lab Results - Last 24 Hours (Table) 02/15/25 02/15/25 02/15/25 Range/Units 11:38 14:15 17:05 RBC (4.10-5.20) 10*6/uL Hgb (12.0-15.0) g/dL Hct (37.2-46.3) % MCV (80.0-97.0) fL Sodium (137-145) mmol/L Chloride (98-107) mmol/L BUN 18 H (7-17) mg/dL Creatinine 1.50 H (0.52-1.04) mg/dL Glucose 115 H (74-99) mg/dL POC Glucose (mg/dL) 140 H 114 H (70-110) mg/dL 04/25/25 04/26/25 04/26/25 Range/Units 19:54 06:30 06:30 RBC 3.39 L (4.10-5.20) 10*6/uL Hgb 10.8 L (12.0-15.0) g/dL Hct 33.5 L (37.2-46.3) % MCV 98.8 H (80.0-97.0) fL Sodium 134 L (137-145) mmol/L Chloride 97 L (98-107) mmol/L BUN 20 H (7-17) mg/dL Creatinine 1.62 H (0.52-1.04) mg/dL Glucose (74-99) mg/dL POC Glucose (mg/dL) 149 H (70-110) mg/dL
[2025-02-16 11:26] LABS: Glucose,Whole Blood 95 mg/dL (70-110)
[2025-02-16] MEDS: methylPREDNISolone SOD SUCCI 40 MG/ML 1 ML VIAL IV SCH (11:41)
--- NOTE | 2025-02-16 12:07 | P.NPCON ---
History of Present Illness - Reason for Consult acute renal failure - History of Present Illness Patient is a 79-year-old female with history of chronic A-fib, coronary artery disease and hypertension. She is admitted to the hospital with worsening shortness of breath associated with fever and cough. Patient is maintained on antibiotics for pneumonia. She also has underlying history of CHF with decrea sed ejection fraction of 30 to 35%. Patient has been maintained on diuretics. Serum creatinine was 0.8 on initial admission and increased to 1.5 yesterday. It is up to 1.6 today. Patient states she has been voiding. Blood pressure noted to be low with systolic in the 90s. Patient was maintained on Cozaar which is now held along with Lasix. Started on IV fluids today. Past Medical History Past Medical History: Atrial Flutter, Asthma, Cancer, COPD, CVA/TIA, GERD/Reflux, GI Bleed, Hyperlipidemia, Hypertension, Memory Impairment, Myocardial Infarction (LA), Osteoarthritis (OA), Renal Disease, Rheumatoid Arthritis (RA) Additional Past Medical History / Comment(s): Chronic cough. Back pain, migraines. residual from stroke,Occasional slight difficulty with swallowing. Hx gastic ulcer, H-Pylori, diverticulitis, hx melanoma on face X2. Hx kidney stones, "kidney function low", raynauds disease. recent stress test at Dr Castorena's office pt had chest pain-transferred to hospital heart cath unable to place stent at that time per pt. Last Myocardial Infarction Date:: 2012 History of Any Multi-Drug Resistant Organisms: None Reported Past Surgical History: Back Surgery, Cholecystectomy, Heart Catheterization, Hysterectomy, Joint Replacement, Orthopedic Surgery Additional Past Surgical History / Comment(s): RODS & CAGES IN BACK, RIGHT HIP REPLACEMENT, PARTIAL THYROIDECTOMY, BILATERAL KNEE REPLACEMENTS, NECK SURGERY WITH LIDIA AND CAGES, MELANOMA REMOVED FROM FACE X4, REPAIR OF HEMATOMA/FEMORAL ARTERY AFTER HEART CATHETERIZATION,rt foot bone spur removed Past Anesthesia/Blood Transfusion Reactions: Previous Problems w/ Anesthesia, Postoperative Nausea & Vomiting (PONV) Additional Past Anesthesia/Blood Transfusion Reaction / Comment(s): Hard to wake up. Past Psychological History: No Psychological Hx Reported Smoking Status: Never smoker Past Alcohol Use History: None Reported Past Drug Use History: None Reported - Past Family History Sister(s) Family Medical History: Cancer Brother(s) Family Medical History: Cancer Mother Family Medical History: Myocardial Infarction (LA) Additional Family Medical History / Comment(s): Mother of a LA at the age of 76yrs. Father History Unknown: Yes Family Medical History: Chest Pain / Angina Medications and Allergies Home Medications Medication Instructions Recorded Confirmed Type Pantoprazole Sodium [Protonix] 40 mg PO BID 05/14/14 02/13/25 History Cyanocobalamin (Vitamin B-12) 1,000 mcg PO DAILY 06/16/22 02/13/25 History [Vitamin B-12] Warfarin Sodium 2 mg PO SUMOTUWESA@2100 12/07/22 02/13/25 History Warfarin Sodium 8 mg PO THFR@2100 01/25/23 02/13/25 History DULoxetine HCL [Cymbalta] 60 mg PO DAILY 07/27/23 02/13/25 History Pregabalin [Lyrica] 100 mg PO BID #6 cap 08/04/23 02/13/25 Rx Albuterol Inhaler [Ventolin Hfa 2 puff INHALATION RT-Q6H PRN 12/22/23 02/13/25 History Inhaler] Cholecalciferol (Vitamin D3) 50 mcg PO DAILY 12/22/23 02/13/25 History [Vitamin D3 (50 Mcg = 2000 Iu)] Atorvastatin [Lipitor] 40 mg PO HS #90 tab 12/25/23 02/13/25 Rx Clopidogrel [Plavix] 75 mg PO DAILY #90 tab 01/06/24 02/13/25 Rx Isosorbide Mononitrate ER [Imdur] 30 mg PO DAILY #90 tab 01/06/24 02/13/25 Rx Furosemide [Lasix] 40 mg PO DAILY 30 Days #30 tab 05/08/24 02/13/25 Rx Ipratropium-Albuterol Nebulize 3 ml INHALATION RT-QID 01/12/25 02/13/25 History [Duoneb 0.5 mg-3 mg/3 ml Soln] Metoprolol Tartrate [Lopressor] 12.5 mg PO BID 01/12/25 02/13/25 History calcitrioL [Rocaltrol] 0.25 mcg PO MOTH 01/12/25 02/13/25 History estradioL [Estrace] 1 mg PO DAILY 01/12/25 02/13/25 History Benzonatate [Tessalon Perles] 200 mg PO TID PRN #30 cap 01/18/25 02/13/25 Rx Budesonide-Formot 160-4.5 Mcg 2 puff INHALATION RT-BID #2 each 01/18/25 02/13/25 Rx [Symbicort 160-4.5 Mcg Inhaler] Montelukast [Singulair] 10 mg PO HS #30 tab 01/18/25 02/13/25 Rx Allergies Allergy/AdvReac Type Severity Reaction Status Date / Time garlic Allergy Intermediate Swelling Verified 02/13/25 08:29 cephalexin monohydrate Allergy Rash/Hives Verified 02/13/25 08:29 [From Keflex] diphenhydramine HCl Allergy SWELLING Verified 02/13/25 08:29 [From Benadryl] OF TONGUE, SOB enoxaparin [From Lovenox] Allergy Rash/Hives Verified 02/13/25 08:29 Penicillins Allergy SWELLING, Verified 02/13/25 08:29 HIVES sulfamethoxazole Allergy Anaphylaxis, Verified 02/13/25 08:29 [From Bactrim] Swelling trimethoprim [From Bactrim] Allergy Anaphylaxis, Verified 02/13/25 08:29 Swelling aspirin AdvReac EXCESS Verified 02/13/25 08:29 BLEEDING milk AdvReac Abdominal Verified 02/13/25 08:29 Pain morphine AdvReac Vomiting Verified 02/13/25 08:29 milk chocolate AdvReac Nausea Uncoded 02/12/25 17:47 Physical Exam Vitals: Vital Signs Temp Pulse Pulse Resp BP Pulse Ox 02/16/25 11:44 80 02/16/25 11:42 80 16 103/63 94 L 02/16/25 11:34 76 02/16/25 08:03 97.5 F L 61 16 96/50 96 02/16/25 03:44 98.6 F 76 16 93/56 98 02/16/25 01:22 90 16 02/15/25 23:30 97.7 F 90 16 90/68 98 02/15/25 20:00 97.8 F 111 H 16 99/60 98 02/15/25 19:15 85 02/15/25 19:02 82 02/15/25 16:41 83 02/15/25 16:30 85 02/15/25 15:37 97.5 F L 85 16 97/58 94 L 02/15/25 12:36 79 02/15/25 12:27 82 Intake and Output 02/15/25 02/16/25 02/16/25 22:59 06:59 14:59 Intake Total 240 250 Output Total 100 700 Balance 240 -100 -450 Intake: IV 10 Invasive Line 2 10 Oral 240 240 Output: Urine 100 700 Other: Voiding Method Bedside Commode Bedside Commode Bedside Commode Weight 75.8 kg Patient is awake, comfortable, no acute distress Examination of the heart S1 and S2 Examination of the lungs bilateral breath sounds are heard Abdomen soft obese nontender Examination of lower extremities shows no significant edema [employer] exam grossly intact Results - Lab Results Most recent lab results Calcium 9.7 mg/dL (8.4-10.2) 02/16/25 06:30 Magnesium 2.3 mg/dL (1.6-2.3) 02/16/25 06:30 02/16/25 06:30 02/16/25 06:30 Assessment and Plan Assessment: 1. Acute kidney injury, ATN secondary to hypotension in the setting of use of angiotensin receptor blockers and recent diuresis. Nonoliguric. Rule out urine retention 2. Chronic kidney disease stage IIIa with baseline creatinine around 1.0 to 1.3 mg/dL. Etiology is nephrosclerosis. Serum creatinine was 0.8 on 02/12/2025 most likely secondary to volume overload. 3. COPD maintained on home oxygen 4. CHF with decreased ejection fraction of 30 to 35%, acute exacerbation on admission, now improved post diuresis. 5. Chronic A-fib Plan: Continue to hold angiotensin receptor blockers and diuretics for now. Patient is started on IV fluids. Repeat labs in a.m. I will most likely discontinue IV fluids tomorrow. Check bladder scan Thank you for the consultation. Will continue to follow the patient with you during her hospitalization.
--- NOTE | 2025-02-16 14:32 | P.PN ---
Subjective Progress Note Date: 02/16/25 This is a 79-year-old female patient was being seen in consultation for shortness of breath. The patient has a large number of medical problems and comorbidities. She was in the hospital in December 2024 and she was discharged home on 01/18/2025 after being treated for an acute on chronic respiratory failu re due to COPD/asthma exacerbation and purulent tracheobronchitis. She is known to have CAD, CHF with impaired LV function with an ejection fraction of 30 to 35% and she has chronic atrial fibrillation. Following her discharge, the patient came into the emergency department on 01/21/2025 with abdominal pain and at that time, CAT scan of the abdomen and pelvis showed a large interpretation versus intramuscular hematoma of the right lateral abdominal wall measuring 14 x 6 x 18 cm in size. The patient accordingly was transferred to [facility] with I believe the hematoma was drained. Noted, at that time, the patient was also receiving anticoagulants with warfarin and her INR was slightly above therapeutic range. Since then, the patient has been taken off anticoagulants. The patient is coming into the hospital with worsening shortness of breath. She denies having any chest pain. The hematoma over the right lateral abdominal wall seems to be recovered and there is no active issues regarding that problem. For now, she remains in atrial fibrillation. Her chest x-ray was noted and it shows no significant airspace disease. There is cardiomegaly and pulm vessel congestion. CTA of the chest was also done and showed no evidence of any pulmonary embolism. There is a small density in the posterior right lung which is a nonspecific findings. There is also evidence of pulm vessel congestion specially in the mid and upper lobes bilaterally. The patient's white cell count currently is at 8.1 with a hemoglobin 9.8 and a platelet count of 384. Coagulation profile is within normal limits. BUN 16 with a creatinine of 0.8. Sodium is at 139 and potassium level is at 3.5. Troponins are 0.08 and 0.1 and 0.1 respectively and a proBNP level is 14,000. Procalcitonin level is at 0.2. The LFTs are essentially within normal limits. Total protein is at 6.2 with a albumin level of 3.5. The patient was given IV Lasix and currently she is on Lasix 40 mg IV push every 12 hours. She is producing excellent amount of urine output and she is feeling better while she is being diuresed. She remains on metoprolol 12.5 mg p.o. twice a day. She is on Symbicort as maintenance and DuoNeb nebulizer treatments [id number]. She is on Plavix. No anticoagulants for now. On today's evaluation 02/14/2025, the patient is being seen for a follow-up. The patient is doing well. She has diuresed adequately over the past 24 hours and the patient remains on IV Lasix. She continues to produce adequate amount of urine output. She remains on oxygen 2 L/min nasal cannula. She remains in atrial fibrillation. No chest pain. No cough or sputum production. She was restarted on Pradaxa. She remains on Symbicort and DuoNeb number of treatments [id number]. IV Lasix 40 mg every 12 hours. Rest of the medications are essentially unchanged. Aldactone was also added to her regimen. Sodium levels at 137 with a potassium level of 3.1, BUN 17 with a creatinine of 1.07 and a serum bicarbonate 30. White cell count is at 7 with a hemoglobin of 10.1. On today's evaluation of 02/15/2025, the patient is feeling better. Some limited cough. No significant sputum production. Continues to receive diuretics with IV Lasix and the patient's fluid balance is negative and remains negative over the past 24 hours. No hemoptysis. No pleurisy. No chest pain. No altered mentation. No other significant events overnight. Net fluid balance is 2 L over the past 24 hours. BUN is 18 with a creatinine of 1.5. Sodium is at 140 and a potassium level is at 3.6. No fever. No chills. No other complaints otherwise. On a separate note, the patient is still being seen by cardiology. She is on Cozaar, Lopressor and Aldactone 25 mg p.o. daily. She remains on Plavix. She remains on statins with Lipitor 40 mg p.o. daily. Rest of the home medications have been resumed. She is on Symbicort and DuoNeb nebulizer treatments [id number]. Oxygenation is stable and the patient is currently on 2 L of O2 nasal cannula with pulse ox of 94 to 98%. 02/16/2025, the patient is complaining of cough. No significant sputum production. Shortness is improved. The patient's white cell count is at 6.7 with hemoglobin 10.8. BUN is 20 with a creatinine of 1.6. Sodium levels at 134 with a potassium level of 3.4. She is on 2 L of oxygen by nasal cannula with a pulse ox of 94%. She was taken off the diuretics. She is only on Aldactone 12.5 mg p.o. daily. She is currently off Lasix. Remains on Symbicort. Remains on DuoNeb updrafts. Remains on Plavix and Pradaxa. Remains on metoprolol 25 mg p.o. twice a day. Hemodynamically stable. Objective - Vital Signs Vital signs: Vital Signs Temp 97.5 F L 02/16/25 08:03 Pulse 61 02/16/25 08:03 Resp 16 02/16/25 08:03 BP 96/50 02/16/25 08:03 Pulse Ox 96 02/16/25 08:03 FiO2 Intake & Output 02/15/25 02/16/25 02/16/25 18:59 06:59 18:59 Intake Total 1120 250 Output Total 700 100 700 Balance 420 -100 -450 Weight 75.8 kg Intake: IV 10 Invasive Line 2 10 Intake, IV Titration 400 Amount Magnesium Sulfate-D5w Pmx 200 1 gm In Dextrose/Water 1 100ml.bag @ 100 mls/hr IVPB Q1H [facility] Rx#: [id number] Potassium Chloride 10 meq 200 In Water For Injection 1 100ml.bag @ 100 mls/hr IVPB Q1H [facility] Rx#: [id number] Oral 720 240 Output: Urine 700 100 700 Other: Voiding Method Bedside Commode Bedside Commode - Exam GENERAL EXAM: Alert, pleasant 79-year-old female, on 2 L nasal cannula, comfortable in no apparent distress. HEAD: Normocephalic. EYES: Normal reaction of pupils, equal size. NOSE: Clear with pink turbinates. THROAT: No erythema or exudates. NECK: No masses, no JVD. CHEST: No chest wall deformity. LUNGS: Equal air entry with bilateral end expiratory wheeze. Few crackles at lung base bilaterally. Breath sounds are quite diminished bilaterally. CVS: S1 and S2 normal with no audible murmur, irregular consistent with atrial fibrillation. ABDOMEN: No hepatosplenomegaly, normal bowel sounds, no guarding or rigidity. SPINE: No scoliosis or deformity SKIN: No rashes CENTRAL NERVOUS SYSTEM: No focal deficits, tone is normal in all 4 extremities. EXTREMITIES: There is no peripheral edema. No clubbing, no cyanosis. Peripheral pulses are intact. - Labs CBC & Chem 7: 02/16/25 06:30 02/16/25 06:30 Labs: Abnormal Lab Results - Last 24 Hours (Table) 02/15/25 02/15/25 02/15/25 Range/Units 11:38 14:15 17:05 RBC (4.10-5.20) 10*6/uL Hgb (12.0-15.0) g/dL Hct (37.2-46.3) % MCV (80.0-97.0) fL Sodium (137-145) mmol/L Chloride (98-107) mmol/L BUN 18 H (7-17) mg/dL Creatinine 1.50 H (0.52-1.04) mg/dL Glucose 115 H (74-99) mg/dL POC Glucose (mg/dL) 140 H 114 H (70-110) mg/dL 02/15/25 02/16/25 02/16/25 Range/Units 19:54 06:30 06:30 RBC 3.39 L (4.10-5.20) 10*6/uL Hgb 10.8 L (12.0-15.0) g/dL Hct 33.5 L (37.2-46.3) % MCV 98.8 H (80.0-97.0) fL Sodium 134 L (137-145) mmol/L Chloride 97 L (98-107) mmol/L BUN 20 H (7-17) mg/dL Creatinine 1.62 H (0.52-1.04) mg/dL Glucose (74-99) mg/dL POC Glucose (mg/dL) 149 H (70-110) mg/dL Assessment and Plan Plan: Acute on chronic shortness of breath, most likely secondary to CHF. Reviewed the CAT scan of the chest and there is increased interstitial edema the patient is responding nicely to diuretics. No evidence of any airspace disease or pneumonia. No signs of any COPD/asthma exacerbation. proBNP level is elevated above 14,000. Nonspecific elevation of the troponins. EKG showing atrial fibrillation with a controlled rate. No acute ischemic changes. Most recent echocardiogram done on 01/05/2024 in the records shows systolic heart failure and repeat echocardiogram from 10/26/2024 showed an ejection fraction of 45 to 50% and the patient also has moderate MR, moderate to severe TR, severe pulm hypertension with a PA pressure of 68. The patient is responding to diuresis. No new complaints for now. Feeling less short of breath compared to yesterday. The patient continues to have some residual cough and probably underlying COPD. Chronic systolic heart failure Chronic pulmonary hypertension group 2/3 Valvular heart disease with moderate MR, moderate to severe TR Coronary artery disease with previous PCI and stenting of the LAD on 01/04/2024 COPD/asthma with secondary symptoms of dyspnea wheezing cough. Chronic atrial fibrillation Right lateral abdominal wall hematoma post drainage and the patient is currently off anticoagulants Hypertension Hyperlipidemia Previous history of CVA/TIA Previous history of GI bleed History of nephrolithiasis History of melanoma, resected History of diverticulosis History of rheumatoid arthritis, currently inactive and stable Plan Continue DuoNeb updrafts Continue Symbicort IV Solu-Medrol 40 mg every 6 hours Lasix discontinued Continue Aldactone Keep oxygen 2 L/min nasal cannula and titrate oxygen flow to maintain saturation above 90% No evidence of pneumonia CAT scan of the chest was reviewed Procalcitonin level is not elevated Anticoagulation was restarted utilizing Pradaxa Metoprolol 25 mg twice a day Continue Plavix Continue Cozaar 25 mg p.o. daily Aldactone 25 mg p.o. daily Lipitor 40 mg p.o. daily Will follow.
[2025-02-16 16:19] LABS: Glucose,Whole Blood 156 mg/dL (70-110)
[2025-02-16] MEDS: SODIUM CHLORIDE 0.9% 1,000 ML IV SCH (18:28)
[2025-02-16 19:55] LABS: Glucose,Whole Blood 221 mg/dL (70-110)
[2025-02-16] MEDS: INSULIN LISPRO (HumaLOG) 100 UNIT/ML 10 mL VL SQ SCH (21:14)
[2025-02-17 05:57] LABS: Glucose,Whole Blood 144 mg/dL (70-110)
[2025-02-17 07:48] LABS: HGB 11.4 g/dL (12.0-15.0); MCH 31.2 pg (27.0-32.0); MCHC 31.7 g/dL (32.0-37.0); MCV 98.6 fL (80.0-97.0); Mean Platelet Volume 10.1 fL (9.5-12.2); Platelet Count 423 10*3/uL (140-440); RBC 3.65 10*6/uL (4.10-5.20); RDW 17.3 % (11.5-14.5); WBC 5.16 10*3/uL (4.50-10.00)
[2025-02-17 08:21] LABS: African American GFR (CKD) 58 (>60 ml/min/1.73 sqM); Anion Gap 9 mmol/L; Blood Urea Nitrogen 22 mg/dL (7-17); Calcium 9.7 mg/dL (8.4-10.2); Carbon Dioxide 26 mmol/L (22-30); Chloride 99 mmol/L (98-107); Glucose 139 mg/dL (74-99); Magnesium 2.2 mg/dL (1.6-2.3); Non-African American GFR(CKD) 50 (>60 ml/min/1.73 sqM); Sodium 134 mmol/L (137-145)
--- NOTE | 2025-02-17 09:15 | P.PN ---
Subjective Progress Note Date: 02/16/25 Hospital course: Patient is a pleasant 79-year-old female with a past medical history of CAD status post recent stenting, chronic persistent atrial fibrillation on anticoagulation with Coumadin, chronic systolic heart failure with previously known EF of 30 to 35%, hypertension, COPD with chronic hypoxic respiratory failure home oxygen dependent on 2 L at all times, and stage IIIb chronic kidney disease. She follows with News Production Supervisor. Dr. Bajwa and PCP Dr. Mcneal. She presented to the hospital on 02/12/2025 with a chief complaint of shortness of breath status post discharged from rehabilitation facility after undergoing interventional radiology for drainage of abdominal hematoma. Upon arrival to our facility, patient underwent evaluation in the emergency department. Vital signs upon arrival show blood pressure 129/86, heart rate 103, respiratory rate 24, temp 97.7 F, and SpO2 95% on baseline home oxygen 2 L EKG was completed showing atrial fibrillation at 106 bpm with occasional PVC. Chest x-ray revealing right lower lobe infiltrate. Labs completed and reviewed. CBC showing macrocytic anemia with hemoglobin of 9.8 and MCV of 97.4. Coagulation profile showing a subtherapeutic INR of 1.0 (as pt has been holding warfarin secondary to abdominal wall hematoma) and a low PTT of 21.2. BMP showing non- anion gap metabolic acidosis with chloride of 110, bicarb 21, and anion gap of 8. Blood glucose was 105. Calcium 9.3. Liver profile showing elevated total bili of 1.9 and AST of 37. CRP elevated at 2.8. proBNP was 14,000. Troponin w as elevated at 0.081. CTA chest completed negative for pulmonary emboli showing a small density posterior right lung likely infiltrate, however unable to rule out mass recommending follow-up imaging. Troponins trended resulting at 0.081, 0.104, 0.101. Physical exam: Patient seen and fully evaluated at bedside she reports feeling slightly better today but still not at baseline. Patient reports she is coughing and bringing up more phlegm today and reports her shortness of breath is better at rest but remains significantly worsened with exertion. Vital signs reviewed and stable. General: Nontoxic, no distress and appears stated age. Derm: Skin warm and dry, normal coloration for ethnicity. Head: Atraumatic, normocephalic and symmetric. Eyes: EOMs intact, no lid lag, and anicteric sclera Mouth: no lip lesions, mucus membranes moist Cardiovascular: Irregularly irregular, systolic murmur, positive posterior tibial pulses bilaterally, and cap refill < 2 seconds. Lungs: Respirations even, regular, and unlabored on room air. Lungs diminished with diffuse expiratory wheezes. No crackles, rhonchi, or rales noted. Abdominal: soft, nontender to palpation, no guarding, no appreciable organomegaly. small area of bruising to suprapubic region Ext: ROM intact. No gross muscle atrophy, no edema, no contractures Neuro: Speech clear, face symmetrical and CN II-XII grossly intact with no noted focal neuro deficits Psych: Alert and oriented to person, place, time, and situation. Appropriate and pleasant affect. Assessment and Plan of Care: Acute HFrEF, last echo showing lvef of 30-35% Elevated troponins, likely type II NSTEMI secondary to above Chronic persistent atrial fibrillation Hypertension History of CAD status post stenting -Cardiology consulted, discussed with commercial sales consultant and cardiac UTILITY WORKER [employer]M PROCESSING. Lasix and losartan was discontinued. Aldactone decreased to 12.5 mg daily -Telemetry monitoring -Troponins trended resulting at 0.081, 0.104, 0.101. ProBNP 14,000 -Daily weights and Close monitoring of I's and O's -Cardiac diet -Continue cardiac medication regimen with Pradaxa 150 mg twice daily, Plavix 75 mg daily, atorvastatin 40 mg nightly, Aldactone 12.5 mg daily and metoprolol 25 mg twice daily. Acute kidney injury -Secondary to IV diuresis, patient developed acute kidney injury with baseline creatinine of 0.84 increasing up to 1.62. -Discussed with cardiology and cardiology UTILITY WORKER FILM PROCESSING. Lasix and losartan was discontinued. Aldactone decreased to 12.5 mg daily and patient was started on gentle IV fluid hydration with 0.9% normal saline at 75 cc/h. -Nephrology was consulted and discussed plan of care at bedside with oracle bpm developer Dr. Woods. COPD with chornic hypoxic respiraotry failure on CO, with mild exacerbation secondary to above Large pulmonary density posterior right lung, likely secondary to infiltrate -Pulmonary evaluated and discussed plan of care with forms designer stating he personally reviewed CT no signs of underlying mass or consolidation. Increased shortness of breath likely secondary to vascular congestion resulting from CHF exacerbation. -News Production Supervisor starting patient on Solu-Medrol 40 mg IVP every 6 hours -Continue Ventolin nebulizers every 6 hours as needed for wheezing/shortness of breath, Symbicort 160-4.5 mcg inhaler 2 puffs twice daily, and scheduled DuoNebs 4 times daily with Singulair 10 mg nightly. -Continue supplemental oxygen to maintain SpO2 equal to or greater than 90%. Hypokalemia. Resolved after replacement. Hypomagnesemia. Resolved after replacement. Neuropathy. Continue home lyrica 100 mg BID Major depression disorder. Continue home medication regimen with cymbalta 60 mg daily Pneumonia ruled out, procalcitonin negative. IV antibiotics discontinued. Data and imaging reviewed: -Vital signs reviewed. Blood pressure's soft this morning 96/50, heart rate 61, respiratory rate 16, temp 97.5 F, and SpO2 of 96% on 2 L. -Morning labs reviewed. CBC showing microcytic anemia with hemoglobin of 10.8 hematocrit 33.5, and MCV of 98.8. BMP showing hyponatremia with sodium 134, hypochloremia with chloride of 87, and acute kidney injury with BUN of 20, creatinine 1.62, GFR of 30. Blood glucose 94. Magnesium 2.3. CODE STATUS: Full code DVT prophylaxis: Pradaxa Discussed with: Patient, RN, oracle bpm developer, commercial sales consultant and cardiology UTILITY WORKER [employer]ESSING Anticipated discharge date: Pending clinical course Anticipated discharge place: Pending clinical course Patient was seen independently by Nurse Pracitioner. This document was prepared using [employer] dictation software. Please allow for errors in freight broker agent, while rare they do occur. Rishi Hernandez NP rendered care for this patient independently, reviewed the findings and plan as documented in the note above and agree with plan. I did not physically speak with or examine the patient on this date. Objective - Vital Signs Vital signs: Vital Signs Temp 97.5 F L 02/16/25 08:03 Pulse 61 02/16/25 08:03 Resp 16 02/16/25 08:03 BP 96/50 02/16/25 08:03 Pulse Ox 96 02/16/25 08:03 FiO2 Intake & Output 02/15/25 02/16/25 02/16/25 18:59 06:59 18:59 Intake Total 1120 Output Total 700 100 700 Balance 420 -100 -700 Weight 75.8 kg Intake: Intake, IV Titration 400 Amount Magnesium Sulfate-D5w Pmx 200 1 gm In Dextrose/Water 1 100ml.bag @ 100 mls/hr IVPB Q1H [facility] Rx#: [id number] Potassium Chloride 10 meq 200 In Water For Injection 1 100ml.bag @ 100 mls/hr IVPB Q1H [facility] Rx#: [id number] Oral 720 Output: Urine 700 100 700 Other: Voiding Method Bedside Commode - Labs CBC & Chem 7: 02/17/25 06:52 02/17/25 06:52 Labs: Abnormal Lab Results - Last 24 Hours (Table) 02/15/25 02/15/25 02/15/25 Range/Units 11:38 14:15 17:05 RBC (4.10-5.20) 10*6/uL Hgb (12.0-15.0) g/dL Hct (37.2-46.3) % MCV (80.0-97.0) fL Sodium (137-145) mmol/L Chloride (98-107) mmol/L BUN 18 H (7-17) mg/dL Creatinine 1.50 H (0.52-1.04) mg/dL Glucose 115 H (74-99) mg/dL POC Glucose (mg/dL) 140 H 114 H (70-110) mg/dL 02/15/25 02/16/25 02/16/25 Range/Units 19:54 06:30 06:30 RBC 3.39 L (4.10-5.20) 10*6/uL Hgb 10.8 L (12.0-15.0) g/dL Hct 33.5 L (37.2-46.3) % MCV 98.8 H (80.0-97.0) fL Sodium 134 L (137-145) mmol/L Chloride 97 L (98-107) mmol/L BUN 20 H (7-17) mg/dL Creatinine 1.62 H (0.52-1.04) mg/dL Glucose (74-99) mg/dL POC Glucose (mg/dL) 149 H (70-110) mg/dL
--- NOTE | 2025-02-17 09:21 | P.PN ---
Subjective Progress Note Date: 02/17/25 Reason for Consult (text): CHF exacerbation History of present illness: This is a 79-year-old female patient of Dr. Castorena with past medical history of coronary artery disease with prior stenting of the LAD as well as ischemic cardiomyopathy, chronic systolic heart failure, valvular heart disease, permanent atrial fibrillation, hypertension, dyslipidemia, chronic renal failure, COPD. We have been asked to evaluate the patient for CHF exacerbation. Patient states she came into the hospital due to shortness of breath. Patient has a recent history of abdominal wall hematoma initially diagnosed at [facility] on 01/21/2025 in the emergency center. Patient had undergone a CTA of the abdomen and pelvis which found intra-abdominal wall hematoma with active bleeding. Patient was on Coumadin at that time and INR 3.1. Patient was transferred to [facility] for further evaluation and treatment and apparently under went surgery 2 weeks ago and has been off Coumadin since. Blood pressure 118/82, heart rate 80s to 90s, pulse ox 90% on 2 L. Patient has been started on IV Lasix 40 mg every 12 hours. -EKG: Atrial fibrillation, IVCD, PVCs -Chest x-ray: Right lower lobe infiltrate correlate for pneumonia. -CTA chest: No pulmonary embolism. Small density posterior right lung. Infiltrate such as pneumonia or mass should be considered. -Laboratory studies: WBC 8.1, hemoglobin 9.8. BUN 16, creatinine 0.84, potassium 3.5. Troponins 0.081, 0.104, 0.101. proBNP 14,000. Procalcitonin less than 0.2. -Home cardiac medications: A atorvastatin 40 mg at bedtime, Plavix 75 mg daily, Lasix 40 mg daily, Imdur 30 mg daily, Lopressor 12.5 mg twice daily, warfarin. -Cardiac catheterization performed 12/24/2023 revealed severe disease of the LAD followed by PCI of the LAD on 01/04/2024. -Echocardiogram performed in the office on 10/26/2024 revealed EF 45 to 50%. Global LV hypokinesis without regional heterogeneity. Left ventricle filling ca nnot be assessed due to atrial fibrillation. No LVH. Moderate mitral regurgitation. Moderate to severe tricuspid regurgitation. Severely increased pulmonary artery systolic pressure of 68 mmHg. Trace to mild pulmonic regurgitation. 02/14 Patient seen and examined. Patient states that she is feeling weak and has decreased appetite. Patient has been maintained on IV Lasix 40 mg every 12 hours. Patient states that she has been unable to afford Farxiga which we will plan to discontinue. Blood pressure 114/66, heart rate 96, pulse ox 96% on 2 L nasal cannula. Repeat blood work reveals hemoglobin 10.1, potassium 3.1, chloride 97, creatinine 1.07. Noted that Coumadin has not been resumed. Patient states that she has not been able to afford Eliquis in the past as well. 02/15 Patient seen and examined. Yesterday multiple medication changes were made including starting the patient on losartan and Aldactone and Pradaxa, Lopressor was increased to 25 mg twice daily, and Farxiga was increased, Imdur was discontinued. We had ordered 1 dose of Ferrlecit. Patient is currently on IV Lasix 40 mg every 12 hours. Blood pressure 101/55, heart rate 79, pulse ox 98% on room air. Repeat blood work reveals potassium 2.7, BUN 20, creatinine 1.26, hemoglobin 11. Patient's potassium has been replaced by admitting physician. 02/16 Patient seen and examined. Patient has had a bump in her creatinine. Creatinine 1.62 and BUN 20. She is currently on IV Lasix, Aldactone and losartan. Blood pressure 96/50, heart rate 61, pulse ox 96% on 2 L nasal cannula. 02/17 Patient seen and examined. Breathing status is stable today. Creatinine is improved at 1.06 and BUN 22, hemoglobin is 11.4. Blood pressure is 121/61, heart rate 70s, pulse ox 93% on 2 L nasal cannula. Yesterday, we made a number of medication changes by decreasing Aldactone to 12.5 and stopping Lasix and losartan and starting IV fluids. Physical examination: Gen: This is 79-year-old female in no acute distress. VS: reviewed HEENT: Head is atraumatic, normocephalic. Pupils equal, round. Sclerae is anicteric. NECK: Supple. No JVD. LUNGS: Clear to auscultation. No wheezes or rhonchi. No intercostal retractions. HEART: Irregular rate and rhythm. Systolic murmur. ABDOMEN: Soft No tenderness. EXTREMITIES: No pedal edema. No calf tenderness. NEUROLOGICAL: Patient is awake, alert and oriented x3. Assessment: Acute on chronic systolic heart failure with EF improved to 50% Chronic atrial fibrillation, rate controlled Intra-abdominal wall hematoma status post surgery 2 weeks ago, off Coumadin History of coronary artery disease with prior stenting of the LAD Ischemic cardiomyopathy Valvular heart disease with moderate mitral regurgitation, moderate to severe tricuspid regurgitation Hypertension Dyslipidemia Chronic renal failure COPD Plan: Continue current cardiac medications: atorvastatin, Plavix, Pradaxa, Lopressor 25 mg twice daily, Aldactone 12.5 mg daily Discontinue Imdur Patient is cleared for discharge from cardiology and will follow-up in the office with Dr. Castorena in 2 weeks. No further cardiac workup planned at this time. Nurse practitioner note has been reviewed, I agree with documented findings and plan of care. Patient was seen and examined. Objective - Vital Signs Vital signs: Vital Signs Temp 97.8 F 02/17/25 09:17 Pulse 73 02/17/25 09:17 Resp 18 02/17/25 09:17 BP 121/61 02/17/25 09:17 Pulse Ox 93 L 02/17/25 09:17 FiO2 Intake & Output 02/16/25 02/17/25 02/17/25 18:59 06:59 18:59 Intake Total 620 380 Output Total 1000 775 Balance -380 -395 Weight 76.4 kg Intake: IV 20 20 Invasive Line 3 20 20 Oral 600 360 Output: Urine 1000 775 Other: Voiding Method Bedside Commode Bedside Commode # Voids 1 - Labs CBC & Chem 7: 02/17/25 06:52 02/17/25 06:52 Labs: Abnormal Lab Results - Last 24 Hours (Table) 02/16/25 02/16/25 02/17/25 Range/Units 16:17 19:53 05:56 RBC (4.10-5.20) 10*6/uL Hgb (12.0-15.0) g/dL Hct (37.2-46.3) % MCV (80.0-97.0) fL MCHC (32.0-37.0) g/dL Sodium (137-145) mmol/L BUN (7-17) mg/dL Creatinine (0.52-1.04) mg/dL Glucose (74-99) mg/dL POC Glucose (mg/dL) 156 H 221 H 144 H (70-110) mg/dL 02/17/25 02/17/25 Range/Units 06:52 06:52 RBC 3.65 L (4.10-5.20) 10*6/uL Hgb 11.4 L (12.0-15.0) g/dL Hct 36.0 L (37.2-46.3) % MCV 98.6 H (80.0-97.0) fL MCHC 31.7 L (32.0-37.0) g/dL Sodium 134 L (137-145) mmol/L BUN 22 H (7-17) mg/dL Creatinine 1.06 H (0.52-1.04) mg/dL Glucose 139 H (74-99) mg/dL POC Glucose (mg/dL) (70-110) mg/dL Microbiology - Last 24 Hours (Table) 02/16/25 21:00 Gram Stain - Preliminary Sputum
--- NOTE | 2025-02-17 10:35 | CT ---
EXAMINATION TYPE: CT abdomen pelvis wo con CT DLP: 710.1 mGycm, Automated exposure control for dose reduction was used. DATE OF EXAM: 02/17/2025 10:22 AM COMPARISON: CT abdomen pelvis 01/21/2025, 01/24/2023 CLINICAL INDICATION:Female, 79 years old with history of Abdominal hematoma; Rt sided hematoma TECHNIQUE: Standard CT of the abdomen and pelvis without IV or oral contrast. Lack of IV or oral co ntrast limits evaluation of solid and hollow organ viscera. Coronal and sagittal reformats were perfo rmed. FINDINGS: LOWER CHEST: Visualized lung bases are clear. Cardiomegaly. ABDOMEN LIVER: Stable anterior left hepatic lobe 1 cm cyst. GALLBLADDER AND BILE DUCTS: Gallbladder appears surgically absent. No biliary ductal dilatation. PANCREAS: Unremarkable noncontrast appearance. SPLEEN: Unremarkable noncontrast appearance. ADRENAL GLANDS: Unremarkable noncontrast appearance.. KIDNEYS AND URETERS: No evidence of hydronephrosis. Redemonstration of nonobstructive right renal low er pole 1 cm calculus. Nonobstructive left renal 3 mm calculus. Redemonstration of right renal midpor tion 3.3 cm simple appearing cyst. No follow-up recommended. Similar bilateral mild perinephric fat s tranding. PELVIS BLADDER: Unremarkable REPRODUCTIVE: The uterus is surgically absent. Left ovarian cystic lesion redemonstrated measuring up to 2.9 cm. ABDOMEN & PELVIS STOMACH AND BOWEL: Stomach and duodenum are unremarkable. No focal bowel wall thickening. Mild amount of stool is present within the colon. No evidence of bowel obstruction. PERITONEUM: No evidence of pneumoperitoneum or free fluid. VASCULATURE: Mild atherosclerotic calcifications are present throughout the abdominal aorta and its b ranches. No evidence of aortic aneurysm. Few pelvic phleboliths. MUSCULOSKELETAL: No acute osseous abnormalities. 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 This creates streak artifact which limits evaluation of the pelvis. Additional postsurgical de la vega ges with bilateral pedicle screws and rods and intervertebral disc hardware involving L3-S1. Multilev el degenerative disc disease most prominent at T11-L1. LYMPH NODES: No gross evidence for lymphadenopathy. SOFT TISSUE/ABDOMINAL WALL: Tiny fat filled umbilical hernia. Post surgical changes in the midline an terior additional wall with scarring demonstrated. Heterogenous hyperattenuating right anterior later al abdominal wall interfascial versus intramuscular hematoma redemonstrated. Grossly measures 13.3 x 4.7 x 14.8 cm. Cannot assess for active extravasation due to lack of intravenous contrast. Decreased mild surrounding stranding changes redemonstrated. No peritoneal extension. IMPRESSION: 1. Redemonstration of right anterolateral abdominal wall interfascial versus intramuscular hematoma. This is mildly decreased in size from prior exam but still measures up to 14.8 cm. 2. Stable left ovarian cystic lesion. Recommend further evaluation with pelvic ultrasound in this age group. 3. Nonobstructive bilateral renal calculi. [facility], , 02/17/2025 10:32 AM
[2025-02-17] MEDS: guaiFENesin-Coden 100-10MG/5ML 10 ML CUP PO PRN (11:19)
--- NOTE | 2025-02-17 11:31 | P.PN ---
Subjective Patient is seen for follow-up for acute kidney injury. Renal function has improved. Patient was started on IV fluids yesterday. She is complaining of cough. Serum creatinine decreased to 1.0 today Objective - Vital Signs Vital signs: Vital Signs Temp 97.8 F 02/17/25 09:17 Pulse 73 02/17/25 09:17 Resp 18 02/17/25 09:17 BP 121/61 02/17/25 09:17 Pulse Ox 93 L 02/17/25 09:17 FiO2 Intake & Output 02/16/25 02/17/25 02/17/25 18:59 06:59 18:59 Intake Total 620 380 550 Output Total 1000 775 500 Balance -380 -395 50 Weight 76.4 kg Intake: IV 20 20 10 Invasive Line 3 20 20 10 Oral 600 360 540 Output: Urine 1000 775 500 Other: Voiding Method Bedside Commode Bedside Commode Bedside Commode # Voids 1 - Exam Patient is awake, comfortable, no acute distress Examination of the heart S1 and S2 Examination of the lungs bilateral breath sounds are heard Abdomen soft obese nontender Examination of lower extremities shows no significant edema LENS MAKER exam grossly intact - Labs CBC & Chem 7: 02/17/25 06:52 02/17/25 06:52 Labs: Abnormal Lab Results - Last 24 Hours (Table) 02/16/25 02/16/25 02/17/25 Range/Units 16:17 19:53 05:56 RBC (4.10-5.20) 10*6/uL Hgb (12.0-15.0) g/dL Hct (37.2-46.3) % MCV (80.0-97.0) fL MCHC (32.0-37.0) g/dL Sodium (137-145) mmol/L BUN (7-17) mg/dL Creatinine (0.52-1.04) mg/dL Glucose (74-99) mg/dL POC Glucose (mg/dL) 156 H 221 H 144 H (70-110) mg/dL 02/17/25 02/17/25 Range/Units 06:52 06:52 RBC 3.65 L (4.10-5.20) 10*6/uL Hgb 11.4 L (12.0-15.0) g/dL Hct 36.0 L (37.2-46.3) % MCV 98.6 H (80.0-97.0) fL MCHC 31.7 L (32.0-37.0) g/dL Sodium 134 L (137-145) mmol/L BUN 22 H (7-17) mg/dL Creatinine 1.06 H (0.52-1.04) mg/dL Glucose 139 H (74-99) mg/dL POC Glucose (mg/dL) (70-110) mg/dL Microbiology - Last 24 Hours (Table) 02/16/25 21:00 Gram Stain - Preliminary Sputum Assessment and Plan Assessment: 1. Acute kidney injury, ATN secondary to hypotension in the setting of use of angiotensin receptor blockers and recent diuresis. Nonoliguric. Improved. 2. Chronic kidney disease stage IIIa with baseline creatinine around 1.0 to 1.3 mg/dL. Etiology is nephrosclerosis. Serum creatinine was 0.8 on 02/12/2025 most likely secondary to volume overload. 3. COPD maintained on home oxygen 4. CHF with decreased ejection fraction of 30 to 35%, acute exacerbation on admission, now improved post diuresis. 5. Chronic A-fib Plan: DC IV fluids Continue to hold angiotensin receptor blockers and diuretics for now. Repeat labs in a.m.
[2025-02-17 11:46] LABS: Glucose,Whole Blood 133 mg/dL (70-110)
--- NOTE | 2025-02-17 12:34 | P.PN ---
Subjective Progress Note Date: 02/17/25 Hospital course: Patient is a pleasant 79-year-old female with a past medical history of CAD status post recent stenting, chronic persistent atrial fibrillation on anticoagulation with Coumadin, chronic systolic heart failure with previously known EF of 30 to 35%, hypertension, COPD with chronic hypoxic respiratory failure home oxygen dependent on 2 L at all times, and stage IIIb chronic kidney disease. She follows with Cartographic Engineer. Dr. Bajwa and PCP Dr. Mcneal. She presented to the hospital on 02/12/2025 with a chief complaint of shortness of breath status post discharged from rehabilitation facility after undergoing interventional radiology for drainage of abdominal hematoma. Upon arrival to our facility, patient underwent evaluation in the emergency department. Vital signs upon arrival show blood pressure 129/86, heart rate 103, respiratory rate 24, temp 97.7 F, and SpO2 95% on baseline home oxygen 2 L EKG was completed showing atrial fibrillation at 106 bpm with occasional PVC. Chest x-ray revealing right lower lobe infiltrate. Labs completed and reviewed. CBC showing macrocytic anemia with hemoglobin of 9.8 and MCV of 97.4. Coagulation profile showing a subtherapeutic INR of 1.0 (as pt has been holding warfarin secondary to abdominal wall hematoma) and a low PTT of 21.2. BMP showing non- anion gap metabolic acidosis with chloride of 110, bicarb 21, and anion gap of 8. Blood glucose was 105. Calcium 9.3. Liver profile showing elevated total bili of 1.9 and AST of 37. CRP elevated at 2.8. proBNP was 14,000. Troponin w as elevated at 0.081. CTA chest completed negative for pulmonary emboli showing a small density posterior right lung likely infiltrate, however unable to rule out mass recommending follow-up imaging. Troponins trended resulting at 0.081, 0.104, 0.101. Physical exam: Patient seen and fully evaluated at bedside she reports feeling increased pain to right lower quadrant/flank region and swelling to this region similar to prior. Patient also reports having a difficult night with persistent coughing fits. Vital signs reviewed and stable. General: Nontoxic, no distress and appears stated age. Derm: Skin warm and dry, normal coloration for ethnicity. Head: Atraumatic, normocephalic and symmetric. Eyes: EOMs intact, no lid lag, and anicteric sclera Mouth: no lip lesions, mucus membranes moist Cardiovascular: Irregularly irregular, systolic murmur, positive posterior tibial pulses bilaterally, and cap refill < 2 seconds. Lungs: Respirations even, regular, and unlabored on room air. Lungs diminished with diffuse expiratory wheezes. No crackles, rhonchi, or rales noted. Abdominal: soft, tenderness to right lower quadrant and right lateral lower flank region, firm area upon palpation. No bruising noted at this time to this area. Ext: ROM intact. No gross muscle atrophy, no edema, no contractures Neuro: Speech clear, face symmetrical and CN II-XII grossly intact with no noted focal neuro deficits Psych: Alert and oriented to person, place, time, and situation. Appropriate and pleasant affect. Assessment and Plan of Care: Acute HFrEF, last echo showing lvef of 30-35% Elevated troponins, likely type II NSTEMI secondary to above Chronic persistent atrial fibrillation Hypertension History of CAD status post stenting -Cardiology consulted, discussed with chemistry quality control technician and cardiac CERTIFIED CODING SPECIALIST. Lasix and losartan was discontinued. Aldactone decreased to 12.5 mg daily -Telemetry monitoring -Troponins trended resulting at 0.081, 0.104, 0.101. ProBNP 14,000 -Daily weights and Close monitoring of I's and O's -Cardiac diet -Continue cardiac medication regimen with Pradaxa 150 mg twice daily, Plavix 75 mg daily, atorvastatin 40 mg nightly, Aldactone 12.5 mg daily and metoprolol 25 mg twice daily. Right lower quadrant abdominal pain, history of recent abdominal wall hematoma status post drainage -Order placed for STAT CT abdomen and pelvis without contrast. -Order placed for abdominal binder. Acute kidney injury, improving -Secondary to IV diuresis, patient developed acute kidney injury with baseline creatinine of 0.84 increasing up to 1.62. -Discussed with cardiology and cardiology CERTIFIED CODING SPECIALIST. Lasix and losartan was discontinued. Aldactone decreased to 12.5 mg daily and patient was started on gentle IV fluid hydration with 0.9% normal saline at 75 cc/h. -Nephrology was consulted and discussed plan of care at bedside with newspaper subscription solicitor Dr. Woods. COPD with chornic hypoxic respiraotry failure on NC, with mild exacerbation secondary to above Large pulmonary density posterior right lung, likely secondary to infiltrate -Pulmonary evaluated and discussed plan of care with service station console operator stating he personally reviewed CT no signs of underlying mass or consolidation. Increased shortness of breath likely secondary to vascular congestion resulting from CHF exacerbation. -Cartographic Engineer starting patient on Solu-Medrol 40 mg IVP every 6 hours -Continue Ventolin nebulizers every 6 hours as needed for wheezing/shortness of breath, Symbicort 160-4.5 mcg inhaler 2 puffs twice daily, and scheduled DuoNebs 4 times daily with Singulair 10 mg nightly. -Continue supplemental oxygen to maintain SpO2 equal to or greater than 90%. Hypokalemia. Resolved after replacement. Hypomagnesemia. Resolved after replacement. Neuropathy. Continue home lyrica 100 mg BID Major depression disorder. Continue home medication regimen with cymbalta 60 mg daily Pneumonia ruled out, procalcitonin negative. IV antibiotics discontinued. Data and imaging reviewed: -Vital signs reviewed. Blood pressure 106/69, heart rate 69, respiratory rate 16, temp 97.2 F, and SpO2 of 98% on 2 L. -Morning labs reviewed. CBC showing microcytic anemia with hemoglobin of 11.4. BMP showing sodium 134 and improvement of renal function with BUN of 22, creatinine of 1.06, GFR 50. Blood glucose was 139. Magnesium 2.2. CODE STATUS: Full code DVT prophylaxis: Pradaxa Discussed with: Patient, RN, chemistry quality control technician and cardiology CERTIFIED CODING SPECIALIST Anticipated discharge date: Pending clinical course Anticipated discharge place: Pending clinical course Patient was seen independently by Nurse Pracitioner. This document was prepared using Namely dictation software. Please allow for errors in provider network manager, while rare they do occur. Rishi Hernandez NP rendered care for this patient independently, reviewed the findings and plan as documented in the note above and agree with plan. I did not physically speak with or examine the patient on this date. Objective - Vital Signs Vital signs: Vital Signs Temp 97.2 F L 02/17/25 03:12 Pulse 80 02/17/25 06:01 Resp 16 02/17/25 03:12 BP 106/69 02/17/25 03:12 Pulse Ox 98 02/17/25 03:12 FiO2 Intake & Output 02/16/25 02/17/25 02/17/25 18:59 06:59 18:59 Intake Total 620 380 Output Total 1000 775 Balance -380 -395 Weight 76.4 kg Intake: IV 20 20 Invasive Line 3 20 20 Oral 600 360 Output: Urine 1000 775 Other: Voiding Method Bedside Commode Bedside Commode # Voids 1 - Labs CBC & Chem 7: 02/17/25 06:52 02/17/25 06:52 Labs: Abnormal Lab Results - Last 24 Hours (Table) 02/16/25 02/16/25 02/17/25 Range/Units 16:17 19:53 05:56 RBC (4.10-5.20) 10*6/uL Hgb (12.0-15.0) g/dL Hct (37.2-46.3) % MCV (80.0-97.0) fL MCHC (32.0-37.0) g/dL Sodium (137-145) mmol/L BUN (7-17) mg/dL Creatinine (0.52-1.04) mg/dL Glucose (74-99) mg/dL POC Glucose (mg/dL) 156 H 221 H 144 H (70-110) mg/dL 02/17/25 02/17/25 Range/Units 06:52 06:52 RBC 3.65 L (4.10-5.20) 10*6/uL Hgb 11.4 L (12.0-15.0) g/dL Hct 36.0 L (37.2-46.3) % MCV 98.6 H (80.0-97.0) fL MCHC 31.7 L (32.0-37.0) g/dL Sodium 134 L (137-145) mmol/L BUN 22 H (7-17) mg/dL Creatinine 1.06 H (0.52-1.04) mg/dL Glucose 139 H (74-99) mg/dL POC Glucose (mg/dL) (70-110) mg/dL Microbiology - Last 24 Hours (Table) 02/16/25 21:00 Gram Stain - Preliminary Sputum
[2025-02-17 13:47] LABS: HCT 34.9 % (37.2-46.3); HGB 10.9 g/dL (12.0-15.0); MCH 31.6 pg (27.0-32.0); MCHC 31.2 g/dL (32.0-37.0); MCV 101.2 fL (80.0-97.0); Mean Platelet Volume 9.8 fL (9.5-12.2); Platelet Count 426 10*3/uL (140-440); RBC 3.45 10*6/uL (4.10-5.20); RDW 17.5 % (11.5-14.5); WBC 7.39 10*3/uL (4.50-10.00)
[2025-02-17 16:22] LABS: Glucose,Whole Blood 165 mg/dL (70-110)
--- NOTE | 2025-02-17 19:34 | P.PN ---
Subjective Progress Note Date: 02/17/25 This is a 79-year-old female patient was being seen in consultation for shortness of breath. The patient has a large number of medical problems and comorbidities. She was in the hospital in December 2024 and she was discharged home on 01/18/2025 after being treated for an acute on chronic respiratory failu re due to COPD/asthma exacerbation and purulent tracheobronchitis. She is known to have CAD, CHF with impaired LV function with an ejection fraction of 30 to 35% and she has chronic atrial fibrillation. Following her discharge, the patient came into the emergency department on 01/21/2025 with abdominal pain and at that time, CAT scan of the abdomen and pelvis showed a large interpretation versus intramuscular hematoma of the right lateral abdominal wall measuring 14 x 6 x 18 cm in size. The patient accordingly was transferred to [facility] with I believe the hematoma was drained. Noted, at that time, the patient was also receiving anticoagulants with warfarin and her INR was slightly above therapeutic range. Since then, the patient has been taken off anticoagulants. The patient is coming into the hospital with worsening shortness of breath. She denies having any chest pain. The hematoma over the right lateral abdominal wall seems to be recovered and there is no active issues regarding that problem. For now, she remains in atrial fibrillation. Her chest x-ray was noted and it shows no significant airspace disease. There is cardiomegaly and pulm vessel congestion. CTA of the chest was also done and showed no evidence of any pulmonary embolism. There is a small density in the posterior right lung which is a nonspecific findings. There is also evidence of pulm vessel congestion specially in the mid and upper lobes bilaterally. The patient's white cell count currently is at 8.1 with a hemoglobin 9.8 and a platelet count of 384. Coagulation profile is within normal limits. BUN 16 with a creatinine of 0.8. Sodium is at 139 and potassium level is at 3.5. Troponins are 0.08 and 0.1 and 0.1 respectively and a proBNP level is 14,000. Procalcitonin level is at 0.2. The LFTs are essentially within normal limits. Total protein is at 6.2 with a albumin level of 3.5. The patient was given IV Lasix and currently she is on Lasix 40 mg IV push every 12 hours. She is producing excellent amount of urine output and she is feeling better while she is being diuresed. She remains on metoprolol 12.5 mg p.o. twice a day. She is on Symbicort as maintenance and DuoNeb nebulizer treatments [id number]. She is on Plavix. No anticoagulants for now. On today's evaluation 02/14/2025, the patient is being seen for a follow-up. The patient is doing well. She has diuresed adequately over the past 24 hours and the patient remains on IV Lasix. She continues to produce adequate amount of urine output. She remains on oxygen 2 L/min nasal cannula. She remains in atrial fibrillation. No chest pain. No cough or sputum production. She was restarted on Pradaxa. She remains on Symbicort and DuoNeb number of treatments [id number]. IV Lasix 40 mg every 12 hours. Rest of the medications are essentially unchanged. Aldactone was also added to her regimen. Sodium levels at 137 with a potassium level of 3.1, BUN 17 with a creatinine of 1.07 and a serum bicarbonate 30. White cell count is at 7 with a hemoglobin of 10.1. On today's evaluation of 02/15/2025, the patient is feeling better. Some limited cough. No significant sputum production. Continues to receive diuretics with IV Lasix and the patient's fluid balance is negative and remains negative over the past 24 hours. No hemoptysis. No pleurisy. No chest pain. No altered mentation. No other significant events overnight. Net fluid balance is 2 L over the past 24 hours. BUN is 18 with a creatinine of 1.5. Sodium is at 140 and a potassium level is at 3.6. No fever. No chills. No other complaints otherwise. On a separate note, the patient is still being seen by cardiology. She is on Cozaar, Lopressor and Aldactone 25 mg p.o. daily. She remains on Plavix. She remains on statins with Lipitor 40 mg p.o. daily. Rest of the home medications have been resumed. She is on Symbicort and DuoNeb nebulizer treatments [id number]. Oxygenation is stable and the patient is currently on 2 L of O2 nasal cannula with pulse ox of 94 to 98%. 02/16/2025, the patient is complaining of cough. No significant sputum production. Shortness is improved. The patient's white cell count is at 6.7 with hemoglobin 10.8. BUN is 20 with a creatinine of 1.6. Sodium levels at 134 with a potassium level of 3.4. She is on 2 L of oxygen by nasal cannula with a pulse ox of 94%. She was taken off the diuretics. She is only on Aldactone 12.5 mg p.o. daily. She is currently off Lasix. Remains on Symbicort. Remains on DuoNeb updrafts. Remains on Plavix and Pradaxa. Remains on metoprolol 25 mg p.o. twice a day. Hemodynamically stable. On 02/17/2025, the patient is being seen for a follow-up. Due to her ongoing symptoms of cough, the patient was started on IV Solu-Medrol yesterday at a dose of 40 mg every 6 hours. She was also given DuoNeb updrafts [id number] and Symbicort 2 puffs twice a day. Symptoms have essentially unchanged and the patient continues to have frequent coughing spells. No significant sputum production. No hemoptysis or pleurisy. She is awake and alert. She is communicating. Pulse ox is noted of 96% with some oxygen by nasal cannula. No reported aspiration. The white cell count 7.3 with a hemoglobin 10.9 and a platelet count of 426. Rest of electrolytes are all within normal limits. Blood sugars at 133. No other issues for now other than her ongoing coughing. No hemoptysis. Objective - Vital Signs Vital signs: Vital Signs Temp 97.8 F 02/17/25 09:17 Pulse 73 02/17/25 09:17 Resp 18 02/17/25 09:17 BP 121/61 02/17/25 09:17 Pulse Ox 93 L 02/17/25 09:17 FiO2 Intake & Output 02/16/25 02/17/25 02/17/25 18:59 06:59 18:59 Intake Total 620 380 550 Output Total 1000 775 500 Balance -380 -395 50 Weight 76.4 kg Intake: IV 20 20 10 Invasive Line 3 20 20 10 Oral 600 360 540 Output: Urine 1000 775 500 Other: Voiding Method Bedside Commode Bedside Commode Bedside Commode # Voids 1 - Exam GENERAL EXAM: Alert, pleasant 79-year-old female, on 2 L nasal cannula, comfortable in no apparent distress. HEAD: Normocephalic. EYES: Normal reaction of pupils, equal size. NOSE: Clear with pink turbinates. THROAT: No erythema or exudates. NECK: No masses, no JVD. CHEST: No chest wall deformity. LUNGS: Equal air entry with bilateral end expiratory wheeze. Few crackles at lung base bilaterally. Breath sounds are quite diminished bilaterally. CVS: S1 and S2 normal with no audible murmur, irregular consistent with atrial fibrillation. ABDOMEN: No hepatosplenomegaly, normal bowel sounds, no guarding or rigidity. SPINE: No scoliosis or deformity SKIN: No rashes CENTRAL NERVOUS SYSTEM: No focal deficits, tone is normal in all 4 extremities. EXTREMITIES: There is no peripheral edema. No clubbing, no cyanosis. Peripheral pulses are intact. - Labs CBC & Chem 7: 02/17/25 13:00 02/17/25 06:52 Labs: Abnormal Lab Results - Last 24 Hours (Table) 02/16/25 02/16/25 02/17/25 Range/Units 16:17 19:53 05:56 RBC (4.10-5.20) 10*6/uL Hgb (12.0-15.0) g/dL Hct (37.2-46.3) % MCV (80.0-97.0) fL MCHC (32.0-37.0) g/dL Sodium (137-145) mmol/L BUN (7-17) mg/dL Creatinine (0.52-1.04) mg/dL Glucose (74-99) mg/dL POC Glucose (mg/dL) 156 H 221 H 144 H (70-110) mg/dL 02/17/25 02/17/25 Range/Units 06:52 06:52 RBC 3.65 L (4.10-5.20) 10*6/uL Hgb 11.4 L (12.0-15.0) g/dL Hct 36.0 L (37.2-46.3) % MCV 98.6 H (80.0-97.0) fL MCHC 31.7 L (32.0-37.0) g/dL Sodium 134 L (137-145) mmol/L BUN 22 H (7-17) mg/dL Creatinine 1.06 H (0.52-1.04) mg/dL Glucose 139 H (74-99) mg/dL POC Glucose (mg/dL) (70-110) mg/dL Microbiology - Last 24 Hours (Table) 02/16/25 21:00 Gram Stain - Preliminary Sputum Assessment and Plan Plan: Acute on chronic shortness of breath, most likely secondary to CHF. Reviewed the CAT scan of the chest and there is increased interstitial edema the patient is responding nicely to diuretics. No evidence of any airspace disease or pneumonia. No signs of any COPD/asthma exacerbation. proBNP level is elevated above 14,000. Nonspecific elevation of the troponins. EKG showing atrial fibrillation with a controlled rate. No acute ischemic changes. Most recent echocardiogram done on 01/05/2024 in the records shows systolic heart failure and repeat echocardiogram from 10/26/2024 showed an ejection fraction of 45 to 50% and the patient also has moderate MR, moderate to severe TR, severe pulm hypertension with a PA pressure of 68. The patient is responding to diuresis. No new complaints for now. Feeling less short of breath compared to yesterday. The patient continues to have some residual cough and probably underlying COPD. 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 Chronic atrial fibrillation Right lateral abdominal wall hematoma post drainage and the patient is currently off anticoagulants Hypertension Hyperlipidemia Previous history of CVA/TIA Previous history of GI bleed History of nephrolithiasis History of melanoma, resected History of diverticulosis History of rheumatoid arthritis, currently inactive and stable Plan Continue DuoNeb updrafts Continue Symbicort IV Solu-Medrol 40 mg every 6 hours Will add Robitussin with codeine to suppress the patient's cough Continue Aldactone Keep oxygen 2 L/min nasal cannula and titrate oxygen flow to maintain saturation above 90% No evidence of pneumonia CAT scan of the chest was reviewed Procalcitonin level is not elevated Anticoagulation was restarted utilizing Pradaxa Metoprolol 25 mg twice a day Continue Plavix Continue Cozaar 25 mg p.o. daily Aldactone 25 mg p.o. daily Lipitor 40 mg p.o. daily Will follow.
[2025-02-17 19:52] LABS: Glucose,Whole Blood 167 mg/dL (70-110)
[2025-02-17 20:04] LABS: HCT 33.6 % (37.2-46.3); HGB 10.6 g/dL (12.0-15.0); MCH 31.4 pg (27.0-32.0); MCHC 31.5 g/dL (32.0-37.0); MCV 99.4 fL (80.0-97.0); Platelet Count 427 10*3/uL (140-440); RBC 3.38 10*6/uL (4.10-5.20); RDW 17.3 % (11.5-14.5); WBC 9.44 10*3/uL (4.50-10.00)
[2025-02-18 00:50] LABS: HCT 31.8 % (37.2-46.3); HGB 10.1 g/dL (12.0-15.0); MCH 31.5 pg (27.0-32.0); MCHC 31.8 g/dL (32.0-37.0); MCV 99.1 fL (80.0-97.0); Mean Platelet Volume 9.8 fL (9.5-12.2); Platelet Count 391 10*3/uL (140-440); RBC 3.21 10*6/uL (4.10-5.20); RDW 17.4 % (11.5-14.5); WBC 10.02 10*3/uL (4.50-10.00)
[2025-02-18] MEDS: ALBUTEROL NEBULIZED 2.5 MG/3 ML INHALATION PRN (01:44)
[2025-02-18 06:24] LABS: Glucose,Whole Blood 138 mg/dL (70-110)
[2025-02-18 07:42] LABS: HGB 10.2 g/dL (12.0-15.0); MCH 31.8 pg (27.0-32.0); MCHC 31.9 g/dL (32.0-37.0); MCV 99.7 fL (80.0-97.0); Platelet Count 404 10*3/uL (140-440); RBC 3.21 10*6/uL (4.10-5.20); RDW 17.4 % (11.5-14.5); WBC 11.06 10*3/uL (4.50-10.00)
[2025-02-18 08:06] LABS: African American GFR (CKD) 51 (>60 ml/min/1.73 sqM); Anion Gap 10 mmol/L; Blood Urea Nitrogen 25 mg/dL (7-17); Carbon Dioxide 23 mmol/L (22-30); Chloride 99 mmol/L (98-107); Glucose 135 mg/dL (74-99); Magnesium 2.2 mg/dL (1.6-2.3); Non-African American GFR(CKD) 44 (>60 ml/min/1.73 sqM); Potassium 4.4 mmol/L (3.5-5.1); Sodium 132 mmol/L (137-145)
--- NOTE | 2025-02-18 11:07 | P.PN ---
Subjective Patient is seen for follow-up for acute kidney injury. Renal function has improved. Serum creatinine decreased to 1.1 today Objective - Vital Signs Vital signs: Vital Signs Temp 97.3 F L 02/18/25 07:48 Pulse 76 02/18/25 10:22 Resp 16 02/18/25 08:00 BP 125/68 02/18/25 07:48 Pulse Ox 98 02/18/25 07:48 FiO2 Intake & Output 02/17/25 02/18/25 02/18/25 18:59 06:59 18:59 Intake Total 1232 20 370 Output Total 500 Balance 732 20 370 Weight 78.6 kg Intake: IV 20 20 10 Invasive Line 3 20 20 10 Oral 1212 360 Output: Urine 500 Other: Voiding Method Bedside Commode Toilet Toilet Bedside Commode Bedside Commode - Exam Patient is awake, comfortable, no acute distress Examination of the heart S1 and S2 Examination of the lungs bilateral breath sounds are heard Abdomen soft obese, tenderness noted Examination of lower extremities shows no significant edema ROTARY VENEER MACHINE OPERATOR exam grossly intact - Labs CBC & Chem 7: 02/18/25 06:36 02/18/25 06:36 Labs: Abnormal Lab Results - Last 24 Hours (Table) 02/17/25 02/17/25 02/17/25 Range/Units 11:45 13:00 16:21 WBC (4.50-10.00) 10*3/uL RBC 3.45 L (4.10-5.20) 10*6/uL Hgb 10.9 L (12.0-15.0) g/dL Hct 34.9 L (37.2-46.3) % MCV 101.2 H (80.0-97.0) fL MCHC 31.2 L (32.0-37.0) g/dL Sodium (137-145) mmol/L BUN (7-17) mg/dL Creatinine (0.52-1.04) mg/dL Glucose (74-99) mg/dL POC Glucose (mg/dL) 133 H 165 H (70-110) mg/dL 02/17/25 02/17/25 02/18/25 Range/Units 19:38 19:50 00:25 WBC 10.02 H (4.50-10.00) 10*3/uL RBC 3.38 L 3.21 L (4.10-5.20) 10*6/uL Hgb 10.6 L 10.1 L (12.0-15.0) g/dL Hct 33.6 L 31.8 L (37.2-46.3) % MCV 99.4 H 99.1 H (80.0-97.0) fL MCHC 31.5 L 31.8 L (32.0-37.0) g/dL Sodium (137-145) mmol/L BUN (7-17) mg/dL Creatinine (0.52-1.04) mg/dL Glucose (74-99) mg/dL POC Glucose (mg/dL) 167 H (70-110) mg/dL 02/18/25 02/18/25 02/18/25 Range/Units 06:21 06:36 06:36 WBC 11.06 H (4.50-10.00) 10*3/uL RBC 3.21 L (4.10-5.20) 10*6/uL Hgb 10.2 L (12.0-15.0) g/dL Hct 32.0 L (37.2-46.3) % MCV 99.7 H (80.0-97.0) fL MCHC 31.9 L (32.0-37.0) g/dL Sodium 132 L (137-145) mmol/L BUN 25 H (7-17) mg/dL Creatinine 1.17 H (0.52-1.04) mg/dL Glucose 135 H (74-99) mg/dL POC Glucose (mg/dL) 138 H (70-110) mg/dL Microbiology - Last 24 Hours (Table) 02/16/25 21:00 Gram Stain - Preliminary Sputum Sputum Culture - Preliminary Assessment and Plan Assessment: 1. Acute kidney injury, ATN secondary to hypotension in the setting of use of angiotensin receptor blockers and recent diuresis. Nonoliguric. Improved. 2. Chronic kidney disease stage IIIa with baseline creatinine around 1.0 to 1.3 mg/dL. Etiology is nephrosclerosis. Serum creatinine was 0.8 on 02/12/2025 most likely secondary to volume overload. 3. COPD maintained on home oxygen 4. CHF with decreased ejection fraction of 30 to 35%, acute exacerbation on admission, now improved post diuresis. 5. Chronic A-fib, currently off of anticoagulation due to abdominal wall hematoma 6. Right lateral abdominal wall hematoma status post drainage Plan: Continue off of IV fluids Continue to hold angiotensin receptor blockers and diuretics for now. Repeat labs in a.m.
[2025-02-18 11:57] LABS: Glucose,Whole Blood 117 mg/dL (70-110)
--- NOTE | 2025-02-18 12:01 | P.PN ---
Subjective Progress Note Date: 02/18/25 Hospital course: Patient is a pleasant 79-year-old female with a past medical history of CAD status post recent stenting (01/04/24), chronic persistent atrial fibrillation, chronic systolic heart failure with previously known EF of 30 to 35%, hypertension, COPD with chronic hypoxic respiratory failure home oxygen dependent on 2 L at all times, and stage IIIb chronic kidney disease. She follows with Synthetic Gem Press Operator. Dr. Bajwa and PCP Dr. Mcneal. She presented to the hospital on 02/12/2025 with a chief complaint of shortness of breath status post discharged from rehabilitation facility after undergoing interventional radiology for drainage of abdominal hematoma. Upon arrival to our facility, patient underwent evaluation in the emergency department. Vital signs upon arrival show blood pressure 129/86, heart rate 103, respiratory rate 24, temp 97.7 F, and SpO2 95% on baseline home oxygen 2 L EKG was completed showing atrial fibrillation at 106 bpm with occasional PVC. Chest x-ray revealing right lower lobe infiltrate. Labs completed and reviewed. CBC showing macrocytic anemia with hemoglobin of 9.8 and MCV of 97.4. Coagulation profile showing a subtherapeutic INR of 1.0 (as pt has been holding warfarin secondary to abdominal wall hematoma) and a low PTT of 21.2. BMP showing non-anion gap metabolic acidosis with chloride of 110, bicarb 21, and anion gap of 8. Blood glucose was 105. Calcium 9.3. Liver profile showing elevated total bili of 1.9 and AST of 37. CRP elevated at 2.8. proBNP was 14,000. Troponin was elevated at 0.081. CTA chest completed negative for pulmonary emboli showing a small density posterior right lung likely infiltrate, however unable to rule out mass recommending follow-up imaging. Troponins trended resulting at 0.081, 0.104, 0.101. Physical exam: Patient seen and fully evaluated at bedside. She reports continued persistent uncontrolled coughing despite Tessalon and Robitussin AC administration. Continues to have discomfort right lower quadrant resulting from hematoma. Patient wearing abdominal binder at this time. Vital signs reviewed and stable. General: Nontoxic, no distress and appears stated age. Derm: Skin warm and dry, normal coloration for ethnicity. Head: Atraumatic, normocephalic and symmetric. Eyes: EOMs intact, no lid lag, and anicteric sclera Mouth: no lip lesions, mucus membranes moist Cardiovascular: Irregularly irregular, systolic murmur, positive posterior tibial pulses bilaterally, and cap refill < 2 seconds. Lungs: Respirations even, regular, and unlabored on 2 L O2. Lungs diminished with diffuse expiratory wheezes. No crackles, rhonchi, or rales noted. Coarse cough present throughout assessment. Abdominal: soft, tenderness to right lower quadrant and right lateral lower flank region, firm area upon palpation. No bruising noted at this time to this area. Ext: ROM intact. No gross muscle atrophy, no edema, no contractures Neuro: Speech clear, face symmetrical and CN II-XII grossly intact with no noted focal neuro deficits Psych: Alert and oriented to person, place, time, and situation. Appropriate and pleasant affect. Assessment and Plan of Care: Abdominal wall hematoma -CT abdomen and pelvis showing redemonstration of right anterolateral abdominal wall intrafascial versus intramuscular hematoma, reported to be mildly decreased in size from prior exam but still measuring up to 14.8 cm. Patient did have previous hematoma in this location measuring up to 16 cm but was transferred to [place] for drainage by IR. -Consult placed interventional radiology for drainage -Discussed with cardiology will hold Pradaxa. -Hemoglobin currently stable at 10.2. Will trend every 6. -Abdominal binder and apply ice packs Acute kidney injury, improving -Secondary to IV diuresis, patient developed acute kidney injury with baseline creatinine of 0.84 increasing up to 1.62. -Discussed with cardiology and cardiology MINING MANAGER. Lasix and losartan was discontinued. Aldactone decreased to 12.5 mg daily and patient was started on gentle IV fluid hydration with 0.9% normal saline at 75 cc/h. -Nephrology was consulted and discussed plan of care at bedside with ne phrologist Dr. Woods. COPD with chornic hypoxic respiraotry failure on NC, with mild exacerbation secondary to above Large pulmonary density posterior right lung, likely secondary to infiltrate -Pulmonary evaluated and discussed plan of care with manager new product stating he personally reviewed CT no signs of underlying mass or consolidation. Increased shortness of breath likely secondary to vascular congestion resulting from CHF exacerbation. -Synthetic Gem Press Operator starting patient on Solu-Medrol 40 mg IVP every 6 hours -Continue Ventolin nebulizers every 6 hours as needed for wheezing/shortness of breath, Symbicort 160-4.5 mcg inhaler 2 puffs twice daily, and scheduled DuoNebs 4 times daily with Singulair 10 mg nightly. -Continue supplemental oxygen to maintain SpO2 equal to or greater than 90%. Acute HFrEF, last echo showing lvef of 30-35% Elevated troponins, likely type II NSTEMI secondary to above Chronic persistent atrial fibrillation Hypertension History of CAD status post stenting -Cardiology consulted, discussed with brick kiln worker and cardiac MINING MANAGER. Lasix and losartan was discontinued. Aldactone decreased to 12.5 mg daily. Cardiology clearing patient from cardiac perspective for discharge. -Telemetry monitoring -Troponins trended resulting at 0.081, 0.104, 0.101. ProBNP 14,000 -Daily weights and Close monitoring of I's and O's -Cardiac diet -Continue cardiac medication regimen with Plavix 75 mg daily, atorvastatin 40 mg nightly, Aldactone 12.5 mg daily and metoprolol 25 mg twice daily. Hypokalemia. Resolved after replacement. Hypomagnesemia. Resolved after replacement. Neuropathy. Continue home lyrica 100 mg BID Major depression disorder. Continue home medication regimen with cymbalta 60 mg daily Pneumonia ruled out, procalcitonin negative. IV antibiotics discontinued. Data and imaging reviewed: -Vital signs reviewed. Blood pressure 125/68, heart rate 81, respiratory rate 16, temp 97.3 F, and SpO2 of 98% on 2 L. -Morning labs reviewed. CBC has been trended every 6 hours. Resulting at 11.4, 10.9, 10.6, 10 point currently stable at 10.2. CBC also showing mild leukocytosis with WBC count of 11.06. BMP showing hyponatremia with a sodium of 132 and slightly elevated renal function with BUN of 25, creatinine 1.17, GFR 44. Blood glucose 135. Magnesium 2.2. CODE STATUS: Full code DVT prophylaxis: ARI dotson and SCDs Discussed with: Patient, RN, and cardiology MINING MANAGER Anticipated discharge date: Pending clinical course Anticipated discharge place: Pending clinical course Patient was seen independently by Nurse Pracitioner. This document was prepared using [employer] dictation software. Please allow for errors in bit gatherer, while rare they do occur. Rishi Hernandez, MINING MANAGER rendered care for this patient independently, reviewed the findings and plan as documented in the note above and agree with plan. I did not physically speak with or examine the patient on this date. Objective - Vital Signs Vital signs: Vital Signs Temp 97.3 F L 02/18/25 07:48 Pulse 81 02/18/25 07:48 Resp 16 02/18/25 07:48 BP 125/68 02/18/25 07:48 Pulse Ox 98 02/18/25 07:48 FiO2 Intake & Output 02/17/25 02/18/25 02/18/25 18:59 06:59 18:59 Intake Total 1232 20 Output Total 500 Balance 732 20 Weight 78.6 kg Intake: IV 20 20 Invasive Line 3 20 20 Oral 1212 Output: Urine 500 Other: Voiding Method Bedside Commode Toilet Bedside Commode - Labs CBC & Chem 7: 02/18/25 06:36 02/18/25 06:36 Labs: Abnormal Lab Results - Last 24 Hours (Table) 02/17/25 02/17/25 02/17/25 Range/Units 06:52 11:45 13:00 WBC (4.50-10.00) 10*3/uL RBC 3.45 L (4.10-5.20) 10*6/uL Hgb 10.9 L (12.0-15.0) g/dL Hct 34.9 L (37.2-46.3) % MCV 101.2 H (80.0-97.0) fL MCHC 31.2 L (32.0-37.0) g/dL Sodium 134 L (137-145) mmol/L BUN 22 H (7-17) mg/dL Creatinine 1.06 H (0.52-1.04) mg/dL Glucose 139 H (74-99) mg/dL POC Glucose (mg/dL) 133 H (70-110) mg/dL 02/17/25 02/17/25 02/17/25 Range/Units 16:21 19:38 19:50 WBC (4.50-10.00) 10*3/uL RBC 3.38 L (4.10-5.20) 10*6/uL Hgb 10.6 L (12.0-15.0) g/dL Hct 33.6 L (37.2-46.3) % MCV 99.4 H (80.0-97.0) fL MCHC 31.5 L (32.0-37.0) g/dL Sodium (137-145) mmol/L BUN (7-17) mg/dL Creatinine (0.52-1.04) mg/dL Glucose (74-99) mg/dL POC Glucose (mg/dL) 165 H 167 H (70-110) mg/dL 02/18/25 02/18/25 02/18/25 Range/Units 00:25 06:21 06:36 WBC 10.02 H 11.06 H (4.50-10.00) 10*3/uL RBC 3.21 L 3.21 L (4.10-5.20) 10*6/uL Hgb 10.1 L 10.2 L (12.0-15.0) g/dL Hct 31.8 L 32.0 L (37.2-46.3) % MCV 99.1 H 99.7 H (80.0-97.0) fL MCHC 31.8 L 31.9 L (32.0-37.0) g/dL Sodium (137-145) mmol/L BUN (7-17) mg/dL Creatinine (0.52-1.04) mg/dL Glucose (74-99) mg/dL POC Glucose (mg/dL) 138 H (70-110) mg/dL 02/18/25 Range/Units 06:36 WBC (4.50-10.00) 10*3/uL RBC (4.10-5.20) 10*6/uL Hgb (12.0-15.0) g/dL Hct (37.2-46.3) % MCV (80.0-97.0) fL MCHC (32.0-37.0) g/dL Sodium 132 L (137-145) mmol/L BUN 25 H (7-17) mg/dL Creatinine 1.17 H (0.52-1.04) mg/dL Glucose 135 H (74-99) mg/dL POC Glucose (mg/dL) (70-110) mg/dL Microbiology - Last 24 Hours (Table) 02/16/25 21:00 Gram Stain - Preliminary Sputum
--- NOTE | 2025-02-18 15:23 | P.PN ---
Subjective Progress Note Date: 02/18/25 This is a 79-year-old female patient was being seen in consultation for shortness of breath. The patient has a large number of medical problems and comorbidities. She was in the hospital in December 2024 and she was discharged home on 01/18/2025 after being treated for an acute on chronic respiratory failur e due to COPD/asthma exacerbation and purulent tracheobronchitis. She is known to have CAD, CHF with impaired LV function with an ejection fraction of 30 to 35% and she has chronic atrial fibrillation. Following her discharge, the patient came into the emergency department on 01/21/2025 with abdominal pain and at that time, CAT scan of the abdomen and pelvis showed a large interpretation versus intramuscular hematoma of the right lateral abdominal wall measuring 14 x 6 x 18 cm in size. The patient accordingly was transferred to [facility] with I believe the hematoma was drained. Noted, at that time, the patient was also receiving anticoagulants with warfarin and her INR was slightly above therapeutic range. Since then, the patient has been taken off anticoagulants. The patient is coming into the hospital with worsening shortness of breath. She denies having any chest pain. The hematoma over the right lateral abdominal wall seems to be recovered and there is no active issues regarding that problem. For now, she remains in atrial fibrillation. Her chest x-ray was noted and it shows no significant airspace disease. There is cardiomegaly and pulm vessel congestion. CTA of the chest was also done and showed no evidence of any pulmonary embolism. There is a small density in the posterior right lung which is a nonspecific findings. There is also evidence of pulm vessel congestion specially in the mid and upper lobes bilaterally. The patient's white cell count currently is at 8.1 with a hemoglobin 9.8 and a platelet count of 384. Coagulation profile is within normal limits. BUN 16 with a creatinine of 0.8. Sodium is at 139 and potassium level is at 3.5. Troponins are 0.08 and 0.1 and 0.1 respectively and a proBNP level is 14,000. Procalcitonin level is at 0.2. The LFTs are essentially within normal limits. Total protein is at 6.2 with a albumin level of 3.5. The patient was given IV Lasix and currently she is on Lasix 40 mg IV push every 12 hours. She is producing excellent amount of urine output and she is feeling better while she is being diuresed. She remains on metoprolol 12.5 mg p.o. twice a day. She is on Symbicort as maintenance and D uoNeb nebulizer treatments [id number]. She is on Plavix. No anticoagulants for now. On today's evaluation 02/14/2025, the patient is being seen for a follow-up. The patient is doing well. She has diuresed adequately over the past 24 hours and the patient remains on IV Lasix. She continues to produce adequate amount of urine output. She remains on oxygen 2 L/min nasal cannula. She remains in atrial fibrillation. No chest pain. No cough or sputum production. She was restarted on Pradaxa. She remains on Symbicort and DuoNeb number of treatments [id number]. IV Lasix 40 mg every 12 hours. Rest of the medications are essentially unchanged. Aldactone was also added to her regimen. Sodium levels at 137 with a potassium level of 3.1, BUN 17 with a creatinine of 1.07 and a serum bicarbonate 30. White cell count is at 7 with a hemoglobin of 10.1. On today's evaluation of 02/15/2025, the patient is feeling better. Some limited cough. No significant sputum production. Continues to receive diuretics with IV Lasix and the patient's fluid balance is negative and remains negative over the past 24 hours. No hemoptysis. No pleurisy. No chest pain. No altered mentation. No other significant events overnight. Net fluid balance is 2 L over the past 24 hours. BUN is 18 with a creatinine of 1.5. Sodium is at 140 and a potassium level is at 3.6. No fever. No chills. No other complaints otherwise. On a separate note, the patient is still being seen by cardiology. She is on Cozaar, Lopressor and Aldactone 25 mg p.o. daily. She remains on Plavix. She remains on statins with Lipitor 40 mg p.o. daily. Rest of the home medications have been resumed. She is on Symbicort and DuoNeb nebulizer treatments [id number]. Oxygenation is stable and the patient is currently on 2 L of O2 nasal cannula with pulse ox of 94 to 98%. 02/16/2025, the patient is complaining of cough. No significant sputum production. Shortness is improved. The patient's white cell count is at 6.7 with hemoglobin 10.8. BUN is 20 with a creatinine of 1.6. Sodium levels at 134 with a potassium level of 3.4. She is on 2 L of oxygen by nasal cannula with a pulse ox of 94%. She was taken off the diuretics. She is only on Aldactone 12.5 mg p.o. daily. She is currently off Lasix. Remains on Symbicort. Remains on DuoNeb updrafts. Remains on Plavix and Pradaxa. Remains on metoprolol 25 mg p.o. twice a day. Hemodynamically stable. On 02/17/2025, the patient is being seen for a follow-up. Due to her ongoing symptoms of cough, the patient was started on IV Solu-Medrol yesterday at a dose of 40 mg every 6 hours. She was also given DuoNeb updrafts [id number] and Symbicort 2 puffs twice a day. Symptoms have essentially unchanged and the patient continues to have frequent coughing spells. No significant sputum production. No hemoptysis or pleurisy. She is awake and alert. She is communicating. Pulse ox is noted of 96% with some oxygen by nasal cannula. No reported aspiration. The white cell count 7.3 with a hemoglobin 10.9 and a platelet count of 426. Rest of electrolytes are all within normal limits. Blood sugars at 133. No other issues for now other than her ongoing coughing. No hemoptysis. The patient is seen today February 18, 2025 in follow-up on the selective care unit. She is currently sitting up in bed. Awake and alert in no acute distress. She still has a dry nonproductive cough. She is maintaining good O2 saturations in upper 90s on room air. She has been afebrile. Hemodynamically stable. Sputum culture pending. White count 11.0. Hemoglobin 10.2. Platelets 404. Sodium 132. Potassium 4.4. Bicarb 23. BUN 25. Creatinine 1.17. Glucose 135. She remains on Symbicort, albuterol, Solu-Medrol and Singulair. S he is on Robitussin and Tessalon Perles for her cough. Objective - Vital Signs Vital signs: Vital Signs Temp 97.3 F L 02/18/25 07:48 Pulse 87 02/18/25 13:45 Resp 16 02/18/25 13:45 BP 124/78 02/18/25 12:00 Pulse Ox 98 02/18/25 12:00 FiO2 Intake & Output 02/17/25 02/18/25 02/18/25 18:59 06:59 18:59 Intake Total 1232 20 740 Output Total 500 Balance 732 20 740 Weight 78.6 kg Intake: IV 20 20 20 Invasive Line 3 20 20 20 Oral 1212 720 Output: Urine 500 Other: Voiding Method Bedside Commode Toilet Toilet Bedside Commode Bedside Commode - Exam GENERAL EXAM: Alert, 79-year-old female, on room air oxygen, comfortable in no apparent distress. HEAD: Normocephalic. EYES: Normal reaction of pupils, equal size. NOSE: Clear with pink turbinates. THROAT: No erythema or exudates. NECK: No masses, no JVD. CHEST: No chest wall deformity. LUNGS: Equal air entry with few crackles in the bilateral bases. CVS: S1 and S2 normal with no audible murmur, irregular rhythm. ABDOMEN: Soft hematoma. No hepatosplenomegaly, normal bowel sounds, no guarding or rigidity. SPINE: No scoliosis or deformity SKIN: No rashes CENTRAL NERVOUS SYSTEM: No focal deficits, tone is normal in all 4 extremities. EXTREMITIES: There is no peripheral edema. No clubbing, no cyanosis. Peripheral pulses are intact. - Labs CBC & Chem 7: 02/18/25 06:36 02/18/25 06:36 Labs: Abnormal Lab Results - Last 24 Hours (Table) 02/17/25 02/17/25 02/17/25 Range/Units 16:21 19:38 19:50 WBC (4.50-10.00) 10*3/uL RBC 3.38 L (4.10-5.20) 10*6/uL Hgb 10.6 L (12.0-15.0) g/dL Hct 33.6 L (37.2-46.3) % MCV 99.4 H (80.0-97.0) fL MCHC 31.5 L (32.0-37.0) g/dL Sodium (137-145) mmol/L BUN (7-17) mg/dL Creatinine (0.52-1.04) mg/dL Glucose (74-99) mg/dL POC Glucose (mg/dL) 165 H 167 H (70-110) mg/dL 02/18/25 02/18/25 02/18/25 Range/Units 00:25 06:21 06:36 WBC 10.02 H 11.06 H (4.50-10.00) 10*3/uL RBC 3.21 L 3.21 L (4.10-5.20) 10*6/uL Hgb 10.1 L 10.2 L (12.0-15.0) g/dL Hct 31.8 L 32.0 L (37.2-46.3) % MCV 99.1 H 99.7 H (80.0-97.0) fL MCHC 31.8 L 31.9 L (32.0-37.0) g/dL Sodium (137-145) mmol/L BUN (7-17) mg/dL Creatinine (0.52-1.04) mg/dL Glucose (74-99) mg/dL POC Glucose (mg/dL) 138 H (70-110) mg/dL 02/18/25 02/18/25 Range/Units 06:36 11:54 WBC (4.50-10.00) 10*3/uL RBC (4.10-5.20) 10*6/uL Hgb (12.0-15.0) g/dL Hct (37.2-46.3) % MCV (80.0-97.0) fL MCHC (32.0-37.0) g/dL Sodium 132 L (137-145) mmol/L BUN 25 H (7-17) mg/dL Creatinine 1.17 H (0.52-1.04) mg/dL Glucose 135 H (74-99) mg/dL POC Glucose (mg/dL) 117 H (70-110) mg/dL Microbiology - Last 24 Hours (Table) 02/16/25 21:00 Gram Stain - Preliminary Sputum Sputum Culture - Preliminary Assessment and Plan Assessment: Acute on chronic shortness of breath, most likely secondary to CHF. Reviewed the CAT scan of the chest and there is increased interstitial edema the patient is responding nicely to diuretics. No evidence of any airspace disease or pneumonia. No signs of any COPD/asthma exacerbation. proBNP level is elevated above 14,000. Nonspecific elevation of the troponins. EKG showing atrial fibrillation with a controlled rate. No acute ischemic changes. Most recent echocardiogram done on 01/05/2024 in the records shows systolic heart failure and repeat echocardiogram from 10/26/2024 showed an ejection fraction of 45 to 50% and the patient also has moderate MR, moderate to severe TR, severe pulm hypertension with a PA pressure of 68. The patient is responding to diuresis. No new complaints for now. Feeling less short of breath compared to yesterday. The patient continues to have some residual cough and probably underlying COPD. 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 Chronic atrial fibrillation Right lateral abdominal wall hematoma post drainage and the patient is currently off anticoagulants Hypertension Hyperlipidemia Previous history of CVA/TIA Previous history of GI bleed History of nephrolithiasis History of melanoma, resected History of diverticulosis History of rheumatoid arthritis, currently inactive and stable Plan: The patient was seen and evaluated Labs and medications reviewed Obtain a follow-up chest x-ray Stable and on room air oxygen Continue bronchodilators, steroids Continue Robitussin/Tessalon for her cough Hematoma remains stable Remains off anticoagulants for now We will continue to follow I have personally seen and examined the patient, performed the documentation and the assessment and plan as written. Number of minutes spent on the visit: 10 Dictation was produced using [employer] dictation software. Please excuse any grammatical, word or spelling errors.
--- NOTE | 2025-02-18 15:28 | XR ---
EXAMINATION TYPE: XR chest 1V portable DATE OF EXAM: 02/18/2025 3:13 PM COMPARISON: 02/12/2025 CLINICAL INDICATION: Female, 79 years old with history of CHF, , FINDINGS: ACDF hardware. Heart mildly enlarged. Diffuse interstitial density but without consolidation or pleur al effusion. IMPRESSION: Mild cardiomegaly and interstitial changes. Correlate for CHF with pulmonary vascular congestion. No hola pulmonary edema at this time. [facility], , 02/18/2025 3:25 PM
[2025-02-18] MEDS: BENZONATATE 100 MG CAP PO SCH (17:07)
[2025-02-18 17:17] LABS: Glucose,Whole Blood 156 mg/dL (70-110)
[2025-02-18 20:19] LABS: Glucose,Whole Blood 166 mg/dL (70-110)
[2025-02-19 06:04] LABS: Glucose,Whole Blood 168 mg/dL (70-110)
[2025-02-19 07:33] LABS: HCT 33.2 % (37.2-46.3); HGB 10.6 g/dL (12.0-15.0); MCHC 31.9 g/dL (32.0-37.0); MCV 100.3 fL (80.0-97.0); Mean Platelet Volume 10.1 fL (9.5-12.2); Platelet Count 358 10*3/uL (140-440); RBC 3.31 10*6/uL (4.10-5.20); RDW 17.7 % (11.5-14.5); WBC 11.41 10*3/uL (4.50-10.00)
[2025-02-19 07:52] LABS: African American GFR (CKD) 56 (>60 ml/min/1.73 sqM); Anion Gap 9 mmol/L; Blood Urea Nitrogen 27 mg/dL (7-17); Calcium 10.1 mg/dL (8.4-10.2); Carbon Dioxide 26 mmol/L (22-30); Chloride 102 mmol/L (98-107); Glucose 136 mg/dL (74-99); Magnesium 2.2 mg/dL (1.6-2.3); Non-African American GFR(CKD) 49 (>60 ml/min/1.73 sqM); Potassium 4.1 mmol/L (3.5-5.1); Sodium 137 mmol/L (137-145)
[2025-02-19] MEDS: HYDROcodone/APAP 5-325MG 1 EACH TAB PO PRN (10:17)
[2025-02-19 11:45] LABS: Glucose,Whole Blood 113 mg/dL (70-110)
--- NOTE | 2025-02-19 11:49 | P.PN ---
Subjective Patient is seen for follow-up for acute kidney injury. Renal function has improved. Serum creatinine decreased to 1.0 today. Possible bronchoscopy in a.m. Objective - Vital Signs Vital signs: Vital Signs Temp 97.8 F 02/18/25 19:52 Pulse 68 02/19/25 11:26 Resp 18 02/19/25 07:50 BP 146/76 02/19/25 07:50 Pulse Ox 98 02/19/25 07:50 FiO2 Intake & Output 02/18/25 02/19/25 02/19/25 18:59 06:59 18:59 Intake Total 1100 20 128 Balance 1100 20 128 Weight 77.8 kg Intake: IV 20 20 10 Invasive Line 3 20 20 10 Oral 1080 118 Other: Voiding Method Toilet Toilet Toilet Bedside Commode Bedside Commode Bedside Commode - Exam Patient is awake, comfortable, no acute distress Examination of the heart S1 and S2 Examination of the lungs bilateral breath sounds are heard, bilateral wheezing Abdomen soft obese, tenderness noted Examination of lower extremities shows no significant edema 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 exam grossly intact - Labs CBC & Chem 7: 02/19/25 06:29 02/19/25 06:29 Labs: Abnormal Lab Results - Last 24 Hours (Table) 02/18/25 02/18/25 02/18/25 Range/Units 11:54 17:16 20:17 WBC (4.50-10.00) 10*3/uL RBC (4.10-5.20) 10*6/uL Hgb (12.0-15.0) g/dL Hct (37.2-46.3) % MCV (80.0-97.0) fL MCHC (32.0-37.0) g/dL BUN (7-17) mg/dL Creatinine (0.52-1.04) mg/dL Glucose (74-99) mg/dL POC Glucose (mg/dL) 117 H 156 H 166 H (70-110) mg/dL 02/19/25 02/19/25 02/19/25 Range/Units 05:59 06:29 06:29 WBC 11.41 H (4.50-10.00) 10*3/uL RBC 3.31 L (4.10-5.20) 10*6/uL Hgb 10.6 L (12.0-15.0) g/dL Hct 33.2 L (37.2-46.3) % MCV 100.3 H (80.0-97.0) fL MCHC 31.9 L (32.0-37.0) g/dL BUN 27 H (7-17) mg/dL Creatinine 1.09 H (0.52-1.04) mg/dL Glucose 136 H (74-99) mg/dL POC Glucose (mg/dL) 168 H (70-110) mg/dL 02/19/25 Range/Units 11:44 WBC (4.50-10.00) 10*3/uL RBC (4.10-5.20) 10*6/uL Hgb (12.0-15.0) g/dL Hct (37.2-46.3) % MCV (80.0-97.0) fL MCHC (32.0-37.0) g/dL BUN (7-17) mg/dL Creatinine (0.52-1.04) mg/dL Glucose (74-99) mg/dL POC Glucose (mg/dL) 113 H (70-110) mg/dL Microbiology - Last 24 Hours (Table) 02/16/25 21:00 Gram Stain - Final Sputum Sputum Culture - Final Assessment and Plan Assessment: 1. Acute kidney injury, ATN secondary to hypotension in the setting of use of angiotensin receptor blockers and recent diuresis. Nonoliguric. Improved. 2. Chronic kidney disease stage IIIa with baseline creatinine around 1.0 to 1.3 mg/dL. Etiology is nephrosclerosis. Serum creatinine was 0.8 on 02/12/2025 most likely secondary to volume overload. 3. COPD maintained on home oxygen 4. CHF with decreased ejection fraction of 30 to 35%, acute exacerbation on admission, now improved post diuresis. 5. Chronic A-fib, currently off of anticoagulation due to abdominal wall hematoma 6. Right lateral abdominal wall hematoma status post drainage Plan: DC calcitriol as calcium is 10.1 Continue off of IV fluids Continue to hold angiotensin receptor blockers and diuretics for now. Repeat labs in a.m.
[2025-02-19] MEDS: DOXYCYCLINE 100 MG TABLET PO SCH (11:58)
[2025-02-19] MEDS: methylPREDNISolone SOD SUCCI 125 MG/2 ML VIAL IV SCH (11:58)
--- NOTE | 2025-02-19 12:16 | P.PN ---
Subjective Progress Note Date: 02/19/25 This is a 79-year-old female patient was being seen in consultation for shortness of breath. The patient has a large number of medical problems and comorbidities. She was in the hospital in December 2024 and she was discharged home on 01/18/2025 after being treated for an acute on chronic respiratory failur e due to COPD/asthma exacerbation and purulent tracheobronchitis. She is known to have CAD, CHF with impaired LV function with an ejection fraction of 30 to 35% and she has chronic atrial fibrillation. Following her discharge, the patient came into the emergency department on 01/21/2025 with abdominal pain and at that time, CAT scan of the abdomen and pelvis showed a large interpretation versus intramuscular hematoma of the right lateral abdominal wall measuring 14 x 6 x 18 cm in size. The patient accordingly was transferred to [facility] with I believe the hematoma was drained. Noted, at that time, the patient was also receiving anticoagulants with warfarin and her INR was slightly above therapeutic range. Since then, the patient has been taken off anticoagulants. The patient is coming into the hospital with worsening shortness of breath. She denies having any chest pain. The hematoma over the right lateral abdominal wall seems to be recovered and there is no active issues regarding that problem. For now, she remains in atrial fibrillation. Her chest x-ray was noted and it shows no significant airspace disease. There is cardiomegaly and pulm vessel congestion. CTA of the chest was also done and showed no evidence of any pulmonary embolism. There is a small density in the posterior right lung which is a nonspecific findings. There is also evidence of pulm vessel congestion specially in the mid and upper lobes bilaterally. The patient's white cell count currently is at 8.1 with a hemoglobin 9.8 and a platelet count of 384. Coagulation profile is within normal limits. BUN 16 with a creatinine of 0.8. Sodium is at 139 and potassium level is at 3.5. Troponins are 0.08 and 0.1 and 0.1 respectively and a proBNP level is 14,000. Procalcitonin level is at 0.2. The LFTs are essentially within normal limits. Total protein is at 6.2 with a albumin level of 3.5. The patient was given IV Lasix and currently she is on Lasix 40 mg IV push every 12 hours. She is producing excellent amount of urine output and she is feeling better while she is being diuresed. She remains on metoprolol 12.5 mg p.o. twice a day. She is on Symbicort as maintenance and D uoNeb nebulizer treatments [id number]. She is on Plavix. No anticoagulants for now. On today's evaluation 02/14/2025, the patient is being seen for a follow-up. The patient is doing well. She has diuresed adequately over the past 24 hours and the patient remains on IV Lasix. She continues to produce adequate amount of urine output. She remains on oxygen 2 L/min nasal cannula. She remains in atrial fibrillation. No chest pain. No cough or sputum production. She was restarted on Pradaxa. She remains on Symbicort and DuoNeb number of treatments [id number]. IV Lasix 40 mg every 12 hours. Rest of the medications are essentially unchanged. Aldactone was also added to her regimen. Sodium levels at 137 with a potassium level of 3.1, BUN 17 with a creatinine of 1.07 and a serum bicarbonate 30. White cell count is at 7 with a hemoglobin of 10.1. On today's evaluation of 02/15/2025, the patient is feeling better. Some limited cough. No significant sputum production. Continues to receive diuretics with IV Lasix and the patient's fluid balance is negative and remains negative over the past 24 hours. No hemoptysis. No pleurisy. No chest pain. No altered mentation. No other significant events overnight. Net fluid balance is 2 L over the past 24 hours. BUN is 18 with a creatinine of 1.5. Sodium is at 140 and a potassium level is at 3.6. No fever. No chills. No other complaints otherwise. On a separate note, the patient is still being seen by cardiology. She is on Cozaar, Lopressor and Aldactone 25 mg p.o. daily. She remains on Plavix. She remains on statins with Lipitor 40 mg p.o. daily. Rest of the home medications have been resumed. She is on Symbicort and DuoNeb nebulizer treatments [id number]. Oxygenation is stable and the patient is currently on 2 L of O2 nasal cannula with pulse ox of 94 to 98%. 02/16/2025, the patient is complaining of cough. No significant sputum production. Shortness is improved. The patient's white cell count is at 6.7 with hemoglobin 10.8. BUN is 20 with a creatinine of 1.6. Sodium levels at 134 with a potassium level of 3.4. She is on 2 L of oxygen by nasal cannula with a pulse ox of 94%. She was taken off the diuretics. She is only on Aldactone 12.5 mg p.o. daily. She is currently off Lasix. Remains on Symbicort. Remains on DuoNeb updrafts. Remains on Plavix and Pradaxa. Remains on metoprolol 25 mg p.o. twice a day. Hemodynamically stable. On 02/17/2025, the patient is being seen for a follow-up. Due to her ongoing symptoms of cough, the patient was started on IV Solu-Medrol yesterday at a dose of 40 mg every 6 hours. She was also given DuoNeb updrafts [id number] and Symbicort 2 puffs twice a day. Symptoms have essentially unchanged and the patient continues to have frequent coughing spells. No significant sputum production. No hemoptysis or pleurisy. She is awake and alert. She is communicating. Pulse ox is noted of 96% with some oxygen by nasal cannula. No reported aspiration. The white cell count 7.3 with a hemoglobin 10.9 and a platelet count of 426. Rest of electrolytes are all within normal limits. Blood sugars at 133. No other issues for now other than her ongoing coughing. No hemoptysis. The patient is seen today February 18, 2025 in follow-up on the selective care unit. She is currently sitting up in bed. Awake and alert in no acute distress. She still has a dry nonproductive cough. She is maintaining good O2 saturations in upper 90s on room air. She has been afebrile. Hemodynamically stable. Sputum culture pending. White count 11.0. Hemoglobin 10.2. Platelets 404. Sodium 132. Potassium 4.4. Bicarb 23. BUN 25. Creatinine 1.17. Glucose 135. She remains on Symbicort, albuterol, Solu-Medrol and Singulair. S he is on Robitussin and Tessalon Perles for her cough. The patient is seen today February 19, 2025 in follow-up on the selective care unit. She continues to have issues with cough and congestion. Not much improvement. She is maintaining O2 saturations in the 90s on 2 L/min per nasal cannula. Her cough is productive with thick yellow sputum. Sputum culture revealed no growth. Chest x-ray showing mild cardiomegaly and interstitial changes. Pulmonary vascular congestion. Slight improvement. White count 11.4. Hemoglobin 10.6. Platelets 358. Sodium 137. Potassium 4.1. Bicarb 26. BUN 27. Creatinine 1.09. Glucose 136. She remains on DuoNeb inhalations, Symbicort, IV Solu-Medrol. She is also on Singulair, Robitussin, Tessalon Perles Objective - Vital Signs Vital signs: Vital Signs Temp 97.8 F 02/18/25 19:52 Pulse 68 02/19/25 11:26 Resp 18 02/19/25 07:50 BP 146/76 02/19/25 07:50 Pulse Ox 98 02/19/25 07:50 FiO2 Intake & Output 02/18/25 02/19/25 02/19/25 18:59 06:59 18:59 Intake Total 1100 20 128 Balance 1100 20 128 Weight 77.8 kg Intake: IV 20 20 10 Invasive Line 3 20 20 10 Oral 1080 118 Other: Voiding Method Toilet Toilet Toilet Bedside Commode Bedside Commode Bedside Commode - Exam GENERAL EXAM: Alert, 79-year-old female, on 2 L nasal cannula, continues with a congested cough, in no apparent distress. HEAD: Normocephalic. EYES: Normal reaction of pupils, equal size. NOSE: Clear with pink turbinates. THROAT: No erythema or exudates. NECK: No masses, no JVD. CHEST: No chest wall deformity. LUNGS: Equal air entry with few crackles in the bilateral bases. CVS: S1 and S2 normal with no audible murmur, irregular rhythm. ABDOMEN: Soft hematoma. No hepatosplenomegaly, normal bowel sounds, no guarding or rigidity. SPINE: No scoliosis or deformity SKIN: No rashes CENTRAL NERVOUS SYSTEM: No focal deficits, tone is normal in all 4 extremities. EXTREMITIES: There is no peripheral edema. No clubbing, no cyanosis. Peripheral pulses are intact. - Labs CBC & Chem 7: 02/19/25 06:29 02/19/25 06:29 Labs: Abnormal Lab Results - Last 24 Hours (Table) 02/18/25 02/18/25 02/19/25 Range/Units 17:16 20:17 05:59 WBC (4.50-10.00) 10*3/uL RBC (4.10-5.20) 10*6/uL Hgb (12.0-15.0) g/dL Hct (37.2-46.3) % MCV (80.0-97.0) fL MCHC (32.0-37.0) g/dL BUN (7-17) mg/dL Creatinine (0.52-1.04) mg/dL Glucose (74-99) mg/dL POC Glucose (mg/dL) 156 H 166 H 168 H (70-110) mg/dL 02/19/25 02/19/25 02/19/25 Range/Units 06:29 06:29 11:44 WBC 11.41 H (4.50-10.00) 10*3/uL RBC 3.31 L (4.10-5.20) 10*6/uL Hgb 10.6 L (12.0-15.0) g/dL Hct 33.2 L (37.2-46.3) % MCV 100.3 H (80.0-97.0) fL MCHC 31.9 L (32.0-37.0) g/dL BUN 27 H (7-17) mg/dL Creatinine 1.09 H (0.52-1.04) mg/dL Glucose 136 H (74-99) mg/dL POC Glucose (mg/dL) 113 H (70-110) mg/dL Microbiology - Last 24 Hours (Table) 02/16/25 21:00 Gram Stain - Final Sputum Sputum Culture - Final Assessment and Plan Assessment: Acute on chronic shortness of breath, most likely secondary to CHF. Reviewed the CAT scan of the chest and there is increased interstitial edema the patient is responding nicely to diuretics. No evidence of any airspace disease or pneum onia. No signs of any COPD/asthma exacerbation. proBNP level is elevated above 14,000. Nonspecific elevation of the troponins. EKG showing atrial fibrillation with a controlled rate. No acute ischemic changes. Most recent echocardiogram done on 01/05/2024 in the records shows systolic heart failure and repeat echocardiogram from 10/26/2024 showed an ejection fraction of 45 to 50% and the patient also has moderate MR, moderate to severe TR, severe pulm hypertension with a PA pressure of 68. The patient is responding to diuresis. No new complaints for now. Feeling less short of breath compared to yesterday. The patient continues to have some residual cough and probably underlying COPD. 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 Chronic atrial fibrillation Right lateral abdominal wall hematoma post drainage and the patient is currently off anticoagulants Hypertension Hyperlipidemia Previous history of CVA/TIA Previous history of GI bleed History of nephrolithiasis History of melanoma, resected History of diverticulosis History of rheumatoid arthritis, currently inactive and stable Plan: The patient was seen and evaluated Chest x-ray, labs and medications reviewed Persistent cough without improvement Plan for bronchoscopy with BAL tomorrow Continue bronchodilators, steroids Continue Robitussin/Tessalon We will continue to follow I have personally seen and examined the patient, performed the documentation and the assessment and plan as written. Number of minutes spent on the visit: 10 Dictation was produced using [employer] dictation software. Please excuse any grammatical, word or spelling errors.
--- NOTE | 2025-02-19 14:49 | P.PN ---
Subjective Progress Note Date: 02/19/25 Hospital course: Patient is a pleasant 79-year-old female with a past medical history of CAD status post recent stenting (01/04/24), chronic persistent atrial fibrillation, chronic systolic heart failure with previously known EF of 30 to 35%, hypertension, COPD with chronic hypoxic respiratory failure home oxygen dependent on 2 L at all times, and stage IIIb chronic kidney disease. She follows with Grocery Cashier. Dr. Bajwa and PCP Dr. Mcneal. She presented to the hospital on 02/12/2025 with a chief complaint of shortness of breath status post discharged from rehabilitation facility after undergoing interventional radiology for drainage of abdominal hematoma. Upon arrival to our facility, patient underwent evaluation in the emergency department. Vital signs upon arrival show blood pressure 129/86, heart rate 103, respiratory rate 24, temp 97.7 F, and SpO2 95% on baseline home oxygen 2 L EKG was completed showing atrial fibrillation at 106 bpm with occasional PVC. Chest x-ray revealing right lower lobe infiltrate. Labs completed and reviewed. CBC showing macrocytic anemia with hemoglobin of 9.8 and MCV of 97.4. Coagulation profile showing a subtherapeutic INR of 1.0 (as pt has been holding warfarin secondary to abdominal wall hematoma) and a low PTT of 21.2. BMP showing non-anion gap metabolic acidosis with chloride of 110, bicarb 21, and anion gap of 8. Blood glucose was 105. Calcium 9.3. Liver profile showing elevated total bili of 1.9 and AST of 37. CRP elevated at 2.8. proBNP was 14,000. Troponin was elevated at 0.081. CTA chest completed negative for pulmonary emboli showing a small density posterior right lung likely infiltrate, however unable to rule out mass recommending follow-up imaging. Troponins trended resulting at 0.081, 0.104, 0.101. Physical exam: Patient seen and fully evaluated at bedside. She reports continued persistent uncontrolled coughing despite Tessalon and Robitussin AC administration. Reports right lower abdominal pain improving. States swelling and pain remains but has improved over the past 24 hours. Abdominal binder in place. Patient denies any other complaints at this time Vital signs reviewed and stable. General: Nontoxic, no distress and appears stated age. Derm: Skin warm and dry, normal coloration for ethnicity. Head: Atraumatic, normocephalic and symmetric. Eyes: EOMs intact, no lid lag, and anicteric sclera Mouth: no lip lesions, mucus membranes moist Cardiovascular: Irregularly irregular, systolic murmur, positive posterior tibial pulses bilaterally, and cap refill < 2 seconds. Lungs: Respirations even, regular, and unlabored on 2 L O2. Lungs diminished with diffuse expiratory wheezes. No crackles, rhonchi, or rales noted. Coarse cough present throughout assessment. Abdominal: soft, tenderness to right lower quadrant and right lateral lower flank region, firm area upon palpation. No bruising noted at this time to this area. Ext: ROM intact. No gross muscle atrophy, no edema, no contractures Neuro: Speech clear, face symmetrical and CN II-XII grossly intact with no noted focal neuro deficits Psych: Alert and oriented to person, place, time, and situation. Appropriate and pleasant affect. Assessment and Plan of Care: COPD with chornic hypoxic respiraotry failure on NC, with acute exacerbation likely triggered by presenting CHF exacerbation -Pulmonology following, discussed plan of care with pulmonology ASSEMBLY LINE WORKER and pharmacy clinical specialist. -Solu-Medrol increased to 60 mg IVP every 6 hours this morning -Continue nebulizers scheduled 4 times daily and every 6 hours as needed for wheezing/shortness of breath, Symbicort 160-4.5 mcg inhaler 2 puffs twice daily, and scheduled DuoNebs 4 times daily with Singulair 10 mg nightly. -Continue supplemental oxygen to maintain SpO2 equal to or greater than 90%. - Continue Tessalon pearls 200 mg 3 times daily and Robitussin AC 10 mL every 4 hours as needed for cough. Abdominal wall hematoma -CT abdomen and pelvis showing redemonstration of right anterolateral abdominal wall intrafascial versus intramuscular hematoma, reported to be mildly decreased in size from prior exam but still measuring up to 14.8 cm. Patient did have previous hematoma in this location measuring up to 16 cm but was transferred to [place] for drainage by IR. -Consult placed interventional radiology for drainage, IR report to do drainage at this time. -Will continue to hold Pradaxa and encourage patient to wear abdominal binder at all times and apply ice packs to hematoma. -Monitor hemoglobin levels closely and if hemoglobin remained stable we will hold off on drainage and allow for patient time to naturally reabsorb hematoma as surgical intervention with general surgery would be of greater risk. -Hemoglobin currently stable at 10.6. Will trend daily. Acute kidney injury, improving -Secondary to IV diuresis, patient developed acute kidney injury with baseline creatinine of 0.84 increasing up to 1.62. Renal function currently stable with BUN of 27, creatinine 1.09, GFR 49. -Nephrology following, and discussed plan of care at bedside with environmental air specialist Dr. Woods. Acute HFrEF, last echo showing lvef of 30-35% Elevated troponins, likely type II NSTEMI secondary to above Chronic persistent atrial fibrillation Hypertension History of CAD status post stenting -Cardiology consulted, discussed with agricultural agent and cardiac ASSEMBLY LINE WORKER. Lasix and losartan was discontinued. Aldactone decreased to 12.5 mg daily. Cardiology clearing patient from cardiac perspective for discharge. -Telemetry monitoring -Troponins trended resulting at 0.081, 0.104, 0.101. ProBNP 14,000 -Daily weights and Close monitoring of I's and O's -Cardiac diet -Continue cardiac medication regimen with Plavix 75 mg daily, atorvastatin 40 mg nightly, Aldactone 12.5 mg daily and metoprolol 25 mg twice daily. Hypokalemia. Resolved after replacement. Hypomagnesemia. Resolved after replacement. Neuropathy. Continue home lyrica 100 mg BID Major depression disorder. Continue home medication regimen with cymbalta 60 mg daily Pneumonia ruled out, procalcitonin negative. IV antibiotics discontinued. Data and imaging reviewed: -Vital signs reviewed. Blood pressure 146/76, heart rate 60, respiratory rate 18, and SpO2 of 98% on 2 L. -Morning labs reviewed. CBC has been trended every 6 hours. Resulting at 11.4, 10.9, 10.6, 10.2. Currently stable at 10.6. CBC also showing mild leukocytosis with WBC count of 11.41. BMP showing BUN of 27, creatinine 1.09, GFR 49. Magnesium 2.2. CODE STATUS: Full code DVT prophylaxis: ARI dotson and SCDs Discussed with: Patient, RN, and pulmonary ASSEMBLY LINE WORKER Anticipated discharge date: Pending clinical course Anticipated discharge place: Pending clinical course Patient was seen independently by Nurse Pracitioner. This document was prepared using [employer] dictation software. Please allow for errors in draughtsman, while rare they do occur. Rishi Hernandez ASSEMBLY LINE WORKER rendered care for this patient independently, reviewed the findings and plan as documented in the note above and agree with plan. I did not physically speak with or examine the patient on this date. Objective - Vital Signs Vital signs: Vital Signs Temp 97.8 F 02/18/25 19:52 Pulse 60 02/19/25 07:50 Resp 18 02/19/25 07:50 BP 146/76 02/19/25 07:50 Pulse Ox 98 02/19/25 07:50 FiO2 Intake & Output 02/18/25 02/19/25 02/19/25 18:59 06:59 18:59 Intake Total 1100 20 Balance 1100 20 Weight 77.8 kg Intake: IV 20 20 Invasive Line 3 20 20 Oral 1080 Other: Voiding Method Toilet Toilet Bedside Commode Bedside Commode - Labs CBC & Chem 7: 02/19/25 06:29 02/19/25 06:29 Labs: Abnormal Lab Results - Last 24 Hours (Table) 02/18/25 02/18/25 02/18/25 Range/Units 11:54 17:16 20:17 WBC (4.50-10.00) 10*3/uL RBC (4.10-5.20) 10*6/uL Hgb (12.0-15.0) g/dL Hct (37.2-46.3) % MCV (80.0-97.0) fL MCHC (32.0-37.0) g/dL BUN (7-17) mg/dL Creatinine (0.52-1.04) mg/dL Glucose (74-99) mg/dL POC Glucose (mg/dL) 117 H 156 H 166 H (70-110) mg/dL 02/19/25 02/19/25 02/19/25 Range/Units 05:59 06:29 06:29 WBC 11.41 H (4.50-10.00) 10*3/uL RBC 3.31 L (4.10-5.20) 10*6/uL Hgb 10.6 L (12.0-15.0) g/dL Hct 33.2 L (37.2-46.3) % MCV 100.3 H (80.0-97.0) fL MCHC 31.9 L (32.0-37.0) g/dL BUN 27 H (7-17) mg/dL Creatinine 1.09 H (0.52-1.04) mg/dL Glucose 136 H (74-99) mg/dL POC Glucose (mg/dL) 168 H (70-110) mg/dL Microbiology - Last 24 Hours (Table) 02/16/25 21:00 Gram Stain - Preliminary Sputum Sputum Culture - Preliminary
[2025-02-19 16:49] LABS: Glucose,Whole Blood 163 mg/dL (70-110)
[2025-02-19 20:08] LABS: Glucose,Whole Blood 165 mg/dL (70-110)
[2025-02-19] MEDS ORDERED: HYDROmorphone 1 MG/ML 1 ML SYRINGE IVP PRN (20:19)
[2025-02-20 06:17] LABS: Glucose,Whole Blood 146 mg/dL (70-110)
[2025-02-20 07:25] LABS: HGB 10.7 g/dL (12.0-15.0); MCH 31.2 pg (27.0-32.0); MCHC 30.6 g/dL (32.0-37.0); Mean Platelet Volume 10.1 fL (9.5-12.2); Platelet Count 347 10*3/uL (140-440); RBC 3.43 10*6/uL (4.10-5.20); RDW 17.5 % (11.5-14.5)
[2025-02-20 07:44] LABS: African American GFR (CKD) 55 (>60 ml/min/1.73 sqM); Anion Gap 14 mmol/L; Blood Urea Nitrogen 34 mg/dL (7-17); Carbon Dioxide 24 mmol/L (22-30); Chloride 98 mmol/L (98-107); Glucose 128 mg/dL (74-99); Magnesium 2.3 mg/dL (1.6-2.3); Non-African American GFR(CKD) 48 (>60 ml/min/1.73 sqM); Potassium 4.2 mmol/L (3.5-5.1); Sodium 136 mmol/L (137-145)
[2025-02-20 11:57] LABS: Glucose,Whole Blood 124 mg/dL (70-110)
--- NOTE | 2025-02-20 12:14 | P.PN ---
Subjective Patient is seen for follow-up for acute kidney injury. Renal function has improved. Serum creatinine staying at around 1.1 Possible bronchoscopy today Objective - Vital Signs Vital signs: Vital Signs Temp 97.7 F 02/20/25 04:00 Pulse 73 02/20/25 12:00 Resp 18 02/20/25 11:59 BP 149/87 02/20/25 11:59 Pulse Ox 99 02/20/25 11:59 FiO2 Intake & Output 02/19/25 02/20/25 02/20/25 18:59 06:59 18:59 Intake Total 496 20 10 Balance 496 20 10 Weight 77.3 kg Intake: IV 20 20 10 Invasive Line 3 20 20 10 Oral 476 Other: Voiding Method Toilet Toilet Toilet Bedside Commode Bedside Commode Bedside Commode - Exam Patient is awake, comfortable, no acute distress Examination of the lungs bilateral breath sounds are heard, bilateral wheezing Abdomen soft obese, tenderness noted Examination of lower extremities shows no significant edema MERCHANDISING EXECUTION MANAGER exam grossly intact - Labs CBC & Chem 7: 02/20/25 06:26 02/20/25 06:26 Labs: Abnormal Lab Results - Last 24 Hours (Table) 02/19/25 02/19/25 02/20/25 Range/Units 16:47 20:07 06:15 WBC (4.50-10.00) 10*3/uL RBC (4.10-5.20) 10*6/uL Hgb (12.0-15.0) g/dL Hct (37.2-46.3) % MCV (80.0-97.0) fL MCHC (32.0-37.0) g/dL Sodium (137-145) mmol/L BUN (7-17) mg/dL Creatinine (0.52-1.04) mg/dL Glucose (74-99) mg/dL POC Glucose (mg/dL) 163 H 165 H 146 H (70-110) mg/dL 02/20/25 02/20/25 02/20/25 Range/Units 06:26 06:26 11:54 WBC 16.40 H (4.50-10.00) 10*3/uL RBC 3.43 L (4.10-5.20) 10*6/uL Hgb 10.7 L (12.0-15.0) g/dL Hct 35.0 L (37.2-46.3) % MCV 102.0 H (80.0-97.0) fL MCHC 30.6 L (32.0-37.0) g/dL Sodium 136 L (137-145) mmol/L BUN 34 H (7-17) mg/dL Creatinine 1.10 H (0.52-1.04) mg/dL Glucose 128 H (74-99) mg/dL POC Glucose (mg/dL) 124 H (70-110) mg/dL Microbiology - Last 24 Hours (Table) 02/16/25 21:00 Gram Stain - Final Sputum Sputum Culture - Final Assessment and Plan Assessment: 1. Acute kidney injury, ATN secondary to hypotension in the setting of use of angiotensin receptor blockers and recent diuresis. Nonoliguric. Improved. 2. Chronic kidney disease stage IIIa with baseline creatinine around 1.0 to 1.3 mg/dL. Etiology is nephrosclerosis. Serum creatinine was 0.8 on 02/12/2025 most likely secondary to volume overload. 3. COPD maintained on home oxygen 4. CHF with decreased ejection fraction of 30 to 35%, acute exacerbation on admission, now improved post diuresis. 5. Chronic A-fib, currently off of anticoagulation due to abdominal wall hematoma 6. Right lateral abdominal wall hematoma status post drainage Plan: Continue off of calcitriol Continue off of IV fluids Continue to hold angiotensin receptor blockers and diuretics for now. Repeat labs in a.m.
--- NOTE | 2025-02-20 12:32 | P.PN ---
Subjective Progress Note Date: 02/20/25 This is a 79-year-old female patient was being seen in consultation for shortness of breath. The patient has a large number of medical problems and comorbidities. She was in the hospital in December 2024 and she was discharged home on 01/18/2025 after being treated for an acute on chronic respiratory failur e due to COPD/asthma exacerbation and purulent tracheobronchitis. She is known to have CAD, CHF with impaired LV function with an ejection fraction of 30 to 35% and she has chronic atrial fibrillation. Following her discharge, the patient came into the emergency department on 01/21/2025 with abdominal pain and at that time, CAT scan of the abdomen and pelvis showed a large interpretation versus intramuscular hematoma of the right lateral abdominal wall measuring 14 x 6 x 18 cm in size. The patient accordingly was transferred to [facility] with I believe the hematoma was drained. Noted, at that time, the patient was also receiving anticoagulants with warfarin and her INR was slightly above therapeutic range. Since then, the patient has been taken off anticoagulants. The patient is coming into the hospital with worsening shortness of breath. She denies having any chest pain. The hematoma over the right lateral abdominal wall seems to be recovered and there is no active issues regarding that problem. For now, she remains in atrial fibrillation. Her chest x-ray was noted and it shows no significant airspace disease. There is cardiomegaly and pulm vessel congestion. CTA of the chest was also done and showed no evidence of any pulmonary embolism. There is a small density in the posterior right lung which is a nonspecific findings. There is also evidence of pulm vessel congestion specially in the mid and upper lobes bilaterally. The patient's white cell count currently is at 8.1 with a hemoglobin 9.8 and a platelet count of 384. Coagulation profile is within normal limits. BUN 16 with a creatinine of 0.8. Sodium is at 139 and potassium level is at 3.5. Troponins are 0.08 and 0.1 and 0.1 respectively and a proBNP level is 14,000. Procalcitonin level is at 0.2. The LFTs are essentially within normal limits. Total protein is at 6.2 with a albumin level of 3.5. The patient was given IV Lasix and currently she is on Lasix 40 mg IV push every 12 hours. She is producing excellent amount of urine output and she is feeling better while she is being diuresed. She remains on metoprolol 12.5 mg p.o. twice a day. She is on Symbicort as maintenance and D uoNeb nebulizer treatments [id number]. She is on Plavix. No anticoagulants for now. On today's evaluation 02/14/2025, the patient is being seen for a follow-up. The patient is doing well. She has diuresed adequately over the past 24 hours and the patient remains on IV Lasix. She continues to produce adequate amount of urine output. She remains on oxygen 2 L/min nasal cannula. She remains in atrial fibrillation. No chest pain. No cough or sputum production. She was restarted on Pradaxa. She remains on Symbicort and DuoNeb number of treatments [id number]. IV Lasix 40 mg every 12 hours. Rest of the medications are essentially unchanged. Aldactone was also added to her regimen. Sodium levels at 137 with a potassium level of 3.1, BUN 17 with a creatinine of 1.07 and a serum bicarbonate 30. White cell count is at 7 with a hemoglobin of 10.1. On today's evaluation of 02/15/2025, the patient is feeling better. Some limited cough. No significant sputum production. Continues to receive diuretics with IV Lasix and the patient's fluid balance is negative and remains negative over the past 24 hours. No hemoptysis. No pleurisy. No chest pain. No altered mentation. No other significant events overnight. Net fluid balance is 2 L over the past 24 hours. BUN is 18 with a creatinine of 1.5. Sodium is at 140 and a potassium level is at 3.6. No fever. No chills. No other complaints otherwise. On a separate note, the patient is still being seen by cardiology. She is on Cozaar, Lopressor and Aldactone 25 mg p.o. daily. She remains on Plavix. She remains on statins with Lipitor 40 mg p.o. daily. Rest of the home medications have been resumed. She is on Symbicort and DuoNeb nebulizer treatments [id number]. Oxygenation is stable and the patient is currently on 2 L of O2 nasal cannula with pulse ox of 94 to 98%. 02/16/2025, the patient is complaining of cough. No significant sputum production. Shortness is improved. The patient's white cell count is at 6.7 with hemoglobin 10.8. BUN is 20 with a creatinine of 1.6. Sodium levels at 134 with a potassium level of 3.4. She is on 2 L of oxygen by nasal cannula with a pulse ox of 94%. She was taken off the diuretics. She is only on Aldactone 12.5 mg p.o. daily. She is currently off Lasix. Remains on Symbicort. Remains on DuoNeb updrafts. Remains on Plavix and Pradaxa. Remains on metoprolol 25 mg p.o. twice a day. Hemodynamically stable. On 02/17/2025, the patient is being seen for a follow-up. Due to her ongoing symptoms of cough, the patient was started on IV Solu-Medrol yesterday at a dose of 40 mg every 6 hours. She was also given DuoNeb updrafts [id number] and Symbicort 2 puffs twice a day. Symptoms have essentially unchanged and the patient continues to have frequent coughing spells. No significant sputum production. No hemoptysis or pleurisy. She is awake and alert. She is communicating. Pulse ox is noted of 96% with some oxygen by nasal cannula. No reported aspiration. The white cell count 7.3 with a hemoglobin 10.9 and a platelet count of 426. Rest of electrolytes are all within normal limits. Blood sugars at 133. No other issues for now other than her ongoing coughing. No hemoptysis. The patient is seen today February 18, 2025 in follow-up on the selective care unit. She is currently sitting up in bed. Awake and alert in no acute distress. She still has a dry nonproductive cough. She is maintaining good O2 saturations in upper 90s on room air. She has been afebrile. Hemodynamically stable. Sputum culture pending. White count 11.0. Hemoglobin 10.2. Platelets 404. Sodium 132. Potassium 4.4. Bicarb 23. BUN 25. Creatinine 1.17. Glucose 135. She remains on Symbicort, albuterol, Solu-Medrol and Singulair. S he is on Robitussin and Tessalon Perles for her cough. The patient is seen today February 19, 2025 in follow-up on the selective care unit. She continues to have issues with cough and congestion. Not much improvement. She is maintaining O2 saturations in the 90s on 2 L/min per nasal cannula. Her cough is productive with thick yellow sputum. Sputum culture revealed no growth. Chest x-ray showing mild cardiomegaly and interstitial changes. Pulmonary vascular congestion. Slight improvement. White count 11.4. Hemoglobin 10.6. Platelets 358. Sodium 137. Potassium 4.1. Bicarb 26. BUN 27. Creatinine 1.09. Glucose 136. She remains on DuoNeb inhalations, Symbicort, IV Solu-Medrol. She is also on Singulair, Robitussin, Tessalon Perles The patient is seen today February 20, 2025 and follow-up on the selective care unit. She is sitting up in bed. Awake and alert in no acute distress. Continues with persistent currently dry cough. Maintaining O2 saturations up to 100% on 2 L/min per nasal cannula. Sputum culture revealed no growth. White count 16.4. Hemoglobin 10.7. Platelets 347. Sodium 136. Potassium 4.2. Bicarb 24. BUN 34. Creatinine 1.10. Glucose 128. She remains on Tessalon Perles and Robitussin as needed. Continued on DuoNeb inhalations, Symbicort, Solu-Medrol. Empiric antibiotics in the form of doxycycline. Objective - Vital Signs Vital signs: Vital Signs Temp 97.7 F 02/20/25 04:00 Pulse 64 02/20/25 12:12 Resp 18 02/20/25 11:59 BP 149/87 02/20/25 11:59 Pulse Ox 99 02/20/25 11:59 FiO2 Intake & Output 02/19/25 02/20/25 02/20/25 18:59 06:59 18:59 Intake Total 496 20 10 Balance 496 20 10 Weight 77.3 kg Intake: IV 20 20 10 Invasive Line 3 20 20 10 Oral 476 Other: Voiding Method Toilet Toilet Toilet Bedside Commode Bedside Commode Bedside Commode - Exam GENERAL EXAM: Alert, pleasant 79-year-old female, on 2 L nasal cannula, in no apparent distress. HEAD: Normocephalic. EYES: Normal reaction of pupils, equal size. NOSE: Clear with pink turbinates. THROAT: No erythema or exudates. NECK: No masses, no JVD. CHEST: No chest wall deformity. LUNGS: Equal air entry with few crackles in the bilateral bases. CVS: S1 and S2 normal with no audible murmur, irregular rhythm. ABDOMEN: Soft hematoma. No hepatosplenomegaly, normal bowel sounds, no guarding or rigidity. SPINE: No scoliosis or deformity SKIN: No rashes CENTRAL NERVOUS SYSTEM: No focal deficits, tone is normal in all 4 extremities. EXTREMITIES: There is no peripheral edema. No clubbing, no cyanosis. Perip heral pulses are intact. - Labs CBC & Chem 7: 02/20/25 06:26 02/20/25 06:26 Labs: Abnormal Lab Results - Last 24 Hours (Table) 02/19/25 02/19/25 02/20/25 Range/Units 16:47 20:07 06:15 WBC (4.50-10.00) 10*3/uL RBC (4.10-5.20) 10*6/uL Hgb (12.0-15.0) g/dL Hct (37.2-46.3) % MCV (80.0-97.0) fL MCHC (32.0-37.0) g/dL Sodium (137-145) mmol/L BUN (7-17) mg/dL Creatinine (0.52-1.04) mg/dL Glucose (74-99) mg/dL POC Glucose (mg/dL) 163 H 165 H 146 H (70-110) mg/dL 02/20/25 02/20/25 02/20/25 Range/Units 06:26 06:26 11:54 WBC 16.40 H (4.50-10.00) 10*3/uL RBC 3.43 L (4.10-5.20) 10*6/uL Hgb 10.7 L (12.0-15.0) g/dL Hct 35.0 L (37.2-46.3) % MCV 102.0 H (80.0-97.0) fL MCHC 30.6 L (32.0-37.0) g/dL Sodium 136 L (137-145) mmol/L BUN 34 H (7-17) mg/dL Creatinine 1.10 H (0.52-1.04) mg/dL Glucose 128 H (74-99) mg/dL POC Glucose (mg/dL) 124 H (70-110) mg/dL Microbiology - Last 24 Hours (Table) 02/16/25 21:00 Gram Stain - Final Sputum Sputum Culture - Final Assessment and Plan Assessment: Acute on chronic shortness of breath, most likely secondary to CHF. Reviewed the CAT scan of the chest and there is increased interstitial edema the patient is responding nicely to diuretics. No evidence of any airspace disease or pneumonia. No signs of any COPD/asthma exacerbation. proBNP level is elevated above 14,000. Nonspecific elevation of the troponins. EKG showing atrial fibrillation with a controlled rate. No acute ischemic changes. Most recent echocardiogram done on 01/05/2024 in the records shows systolic heart failure and repeat echocardiogram from 10/26/2024 showed an ejection fraction of 45 to 50% and the patient also has moderate MR, moderate to severe TR, severe pulm hyp ertension with a PA pressure of 68. The patient is responding to diuresis Acute hypoxic respiratory failure secondary to above Persistent cough/COPD exacerbation. Plan is for bronchoscopy with BAL today Chronic systolic heart failure Chronic pulmonary hypertension group 2/3 Valvular heart disease with moderate MR, moderate to severe TR Coronary artery disease with previous PCI and stenting of the LAD on 01/04/2024 COPD/asthma with secondary symptoms of dyspnea wheezing cough. Chronic atrial fibrillation Right lateral abdominal wall hematoma post drainage and the patient is currently off anticoagulants Hypertension Hyperlipidemia Previous history of CVA/TIA Previous history of GI bleed History of nephrolithiasis History of melanoma, resected History of diverticulosis History of rheumatoid arthritis, currently inactive and stable Plan: The patient was seen and evaluated Labs and medications reviewed Persistent cough without improvement Plan for bronchoscopy with BAL today Continue bronchodilators, steroids Continue Robitussin/Tessalon Titrate down/off the FiO2 as tolerated Plan is for home with home care at discharge I have personally seen and examined the patient, performed the documentation and the assessment and plan as written. Number of minutes spent on the visit: 10 Dictation was produced using [employer] dictation software. Please excuse any grammatical, word or spelling errors.
[2025-02-20] MEDS: LACTATED RINGERS 1,000 ML IV ONE (13:05)
[2025-02-20] MEDS ORDERED: LIDOCAINE 1% INJ 10MG/ML (20 ML MDV) ONE (13:07)
[2025-02-20] MEDS ORDERED: PROPOFOL 10 MG/ML 20 ML VIAL IV ONE (13:07)
[2025-02-20 13:11] VITALS: BMI 29.2
[2025-02-20] MEDS: LIDOCAINE 2% INJ 20 MG/ML INTRATRACH ONE (13:16)
[2025-02-20] MEDS: LIDOCAINE 2% GLYDO JELLY 6 ML APPL MISCELLANE ONE (13:16)
--- NOTE | 2025-02-20 14:05 | P.PN ---
Subjective Progress Note Date: 02/20/25 Hospital course: Patient is a pleasant 79-year-old female with a past medical history of CAD status post recent stenting (01/04/24), chronic persistent atrial fibrillation, chronic systolic heart failure with previously known EF of 30 to 35%, hypertension, COPD with chronic hypoxic respiratory failure home oxygen dependent on 2 L at all times, and stage IIIb chronic kidney disease. She follows with [facility]. Dr. Bajwa and PCP Dr. Mcneal. She presented to the hospital on 02/12/2025 with a chief complaint of shortness of breath status post discharged from rehabilitation facility after undergoing interventional radiology for drainage of abdominal hematoma. Upon arrival to our facility, patient underwent evaluation in the emergency department. Vital signs upon arrival show blood pressure 129/86, heart rate 103, respiratory rate 24, temp 97.7 F, and SpO2 95% on baseline home oxygen 2 L EKG was completed showing atrial fibrillation at 106 bpm with occasional PVC. Chest x-ray revealing right lower lobe infiltrate. Labs completed and reviewed. CBC showing macrocytic anemia with hemoglobin of 9.8 and MCV of 97.4. Coagulation profile showing a subtherapeutic INR of 1.0 (as pt has been holding warfarin secondary to abdominal wall hematoma) and a low PTT of 21.2. BMP showing non-anion gap metabolic acidosis with chloride of 110, bicarb 21, and anion gap of 8. Blood glucose was 105. Calcium 9.3. Liver profile showing elevated total bili of 1.9 and AST of 37. CRP elevated at 2.8. proBNP was 14,000. Troponin was elevated at 0.081. CTA chest completed negative for pulmonary emboli showing a small density posterior right lung likely infiltrate, however unable to rule out mass recommending follow-up imaging. Troponins trended resulting at 0.081, 0.104, 0.101. Physical exam: Patient seen and fully evaluated at bedside. She reports continued persistent uncontrolled coughing despite Tessalon and Robitussin AC administration. Reports right lower abdominal pain improving. States swelling and pain remains with cough only at this time. Abdominal binder in place. Patient denies any other complaints at this time. Awaiting to be taken down for bronchoscopy. Vital signs reviewed and stable. General: Nontoxic, no distress and appears stated age. Derm: Skin warm and dry, normal coloration for ethnicity. Head: Atraumatic, normocephalic and symmetric. Eyes: EOMs intact, no lid lag, and anicteric sclera Mouth: no lip lesions, mucus membranes moist Cardiovascular: Irregularly irregular, systolic murmur, positive posterior tibial pulses bilaterally, and cap refill < 2 seconds. Lungs: Respirations even, regular, and unlabored on 2 L O2. Lungs diminished with diffuse expiratory wheezes. No crackles, rhonchi, or rales noted. Coarse cough present throughout assessment. Abdominal: soft, tenderness to right lower quadrant and right lateral lower flank region, firm palpable area upon palpation. No bruising noted at this time to this area. Abdominal binder in place. Ext: ROM intact. No gross muscle atrophy, no edema, no contractures Neuro: Speech clear, face symmetrical and CN II-XII grossly intact with no noted focal neuro deficits Psych: Alert and oriented to person, place, time, and situation. Appropriate and pleasant affect. Assessment and Plan of Care: COPD with chornic hypoxic respiraotry failure on NC, with acute exacerbation likely triggered by presenting CHF exacerbation Intractable nonproductive cough/bronchial asthma -Pulmonology following, discussed plan of care with pulmonology PRODUCT COMMUNICATIONS MANAGER and animal behaviorist patient to be taken down for bronchoscopy with BAL later today. -Solu-Medrol 60 mg IVP every 6 hours -Continue scheduled DuoNebs 4 times daily and every 6 hours as needed for whee zing/shortness of breath, Symbicort 160-4.5 mcg inhaler 2 puffs twice daily, and Singulair 10 mg nightly. -Continue supplemental oxygen to maintain SpO2 equal to or greater than 90%. -Continue Tessalon pearls 200 mg 3 times daily and Robitussin AC 10 mL every 4 hours as needed for cough. -Patient was started on empiric antibiotics with doxycycline 100 mg twice daily on 02/19/2025 Abdominal wall hematoma -CT abdomen and pelvis showing redemonstration of right anterolateral abdominal wall intrafascial versus intramuscular hematoma, reported to be mildly decreased in size from prior exam but still measuring up to 14.8 cm. Patient did have previous hematoma in this location measuring up to 16 cm but was transferred to [place] for drainage by IR. -Consult placed interventional radiology for drainage, IR stating they are unable to do drain, recommending if drainage needed to consult general surgery. -Will continue to hold Pradaxa and encourage patient to wear abdominal binder at all times and apply ice packs to hematoma. -Monitor hemoglobin levels closely and if hemoglobin remained stable we will hold off on drainage and allow for patient time to naturally reabsorb hematoma as surgical intervention with general surgery would be of greater risk and pt declines transfer to [place] for IR. -Hemoglobin currently stable at 10.7. Will continue to monitor daily. Acute kidney injury, improved -Secondary to IV diuresis, patient developed acute kidney injury with baseline creatinine of 0.84 increasing up to 1.62. Renal function currently stable with BUN of 34, creatinine 1.10, GFR 48 -Nephrology following, Dr. Woods recommending to continue to hold off angiotensin receptor blockers and diuretics for now. Acute HFrEF, last echo showing lvef of 30-35% Elevated troponins, likely type II NSTEMI secondary to above Chronic persistent atrial fibrillation Hypertension History of CAD status post stenting -Cardiology evaluated. Lasix and losartan was discontinued. Aldactone decreased to 12.5 mg daily. Cardiology clearing patient from cardiac perspective for discharge. -Telemetry monitoring -Troponins trended resulting at 0.081, 0.104, 0.101. ProBNP 14,000 -Daily weights and Close monitoring of I's and O's -Cardiac diet -Continue cardiac medication regimen with Plavix 75 mg daily, atorvastatin 40 mg nightly, Aldactone 12.5 mg daily and metoprolol 25 mg twice daily. Hypokalemia. Resolved after replacement. Hypomagnesemia. Resolved after replacement. Neuropathy. Continue home lyrica 100 mg BID Major depression disorder. Continue home medication regimen with cymbalta 60 mg daily Pneumonia ruled out, procalcitonin negative. IV antibiotics discontinued. Data and imaging reviewed: -Vital signs reviewed. Blood pressure 140/83, heart rate 95, respiratory rate 18, temp 97.7 F, and SpO2 of 100% on 2 L -Morning labs reviewed. CBC showing leukocytosis with WBC count of 16.40, hemoglobin 10.7, and MCV of 102.0. BMP showing stable renal function with BUN of 34, creatinine 1.10, GFR 48. Blood glucose was 146. Magnesium 2.3. CODE STATUS: Full code DVT prophylaxis: ARI dotson and SCDs Discussed with: Patient, RN, and pulmonary PRODUCT COMMUNICATIONS MANAGER Anticipated discharge date: Pending clinical course Anticipated discharge place: Pending clinical course Patient was seen independently by Nurse Pracitioner. This document was prepared using [employer] dictation software. Please allow for errors in blocker and cutter contact lens, while rare they do occur. Rishi Hernandez NP rendered care for this patient independently, reviewed the findings and plan as documented in the note above and agree with plan. I did not physically speak with or examine the patient on this date. Objective - Vital Signs Vital signs: Vital Signs Temp 97.7 F 02/20/25 04:00 Pulse 78 02/20/25 08:33 Resp 16 02/20/25 04:00 BP 139/86 02/20/25 04:00 Pulse Ox 98 02/20/25 08:16 FiO2 Intake & Output 02/19/25 02/20/25 02/20/25 18:59 06:59 18:59 Intake Total 496 20 Balance 496 20 Weight 77.3 kg Intake: IV 20 20 Invasive Line 3 20 20 Oral 476 Other: Voiding Method Toilet Toilet Bedside Commode Bedside Commode - Labs CBC & Chem 7: 02/20/25 06:26 02/20/25 06:26 Labs: Abnormal Lab Results - Last 24 Hours (Table) 02/19/25 02/19/25 02/19/25 Range/Units 11:44 16:47 20:07 WBC (4.50-10.00) 10*3/uL RBC (4.10-5.20) 10*6/uL Hgb (12.0-15.0) g/dL Hct (37.2-46.3) % MCV (80.0-97.0) fL MCHC (32.0-37.0) g/dL Sodium (137-145) mmol/L BUN (7-17) mg/dL Creatinine (0.52-1.04) mg/dL Glucose (74-99) mg/dL POC Glucose (mg/dL) 113 H 163 H 165 H (70-110) mg/dL 02/20/25 02/20/25 02/20/25 Range/Units 06:15 06:26 06:26 WBC 16.40 H (4.50-10.00) 10*3/uL RBC 3.43 L (4.10-5.20) 10*6/uL Hgb 10.7 L (12.0-15.0) g/dL Hct 35.0 L (37.2-46.3) % MCV 102.0 H (80.0-97.0) fL MCHC 30.6 L (32.0-37.0) g/dL Sodium 136 L (137-145) mmol/L BUN 34 H (7-17) mg/dL Creatinine 1.10 H (0.52-1.04) mg/dL Glucose 128 H (74-99) mg/dL POC Glucose (mg/dL) 146 H (70-110) mg/dL Microbiology - Last 24 Hours (Table) 02/16/25 21:00 Gram Stain - Final Sputum Sputum Culture - Final
[2025-02-20] MEDS: ALBUTEROL NEBULIZED 2.5 MG/3 ML INHALATION PRN (14:20)
[2025-02-20] MEDS: FLUCONAZOLE 100 MG TAB PO SCH (16:20)
[2025-02-20 16:55] LABS: Glucose,Whole Blood 153 mg/dL (70-110)
[2025-02-20 20:10] LABS: Glucose,Whole Blood 187 mg/dL (70-110)
--- NOTE | 2025-02-20 20:19 | PCN ---
PROCEDURE NOTE PROCEDURES PERFORMED: Bronchoscopy and random bronchoalveolar lavage and bronchial washings of both lungs. PREOPERATIVE DIAGNOSES: Persistent cough and underlying chronic obstructive pulmonary disease. POSTOPERATIVE DIAGNOSES: Acute purulent tracheobronchitis and possible candidiasis/oral thrush. ANESTHESIA USED: IV conscious sedation. PROCEDURE IN DETAIL: The patient was brought into the bronchoscopy suite, and prepared according to the bronchoscopy protocol. Placed in supine position, O2 was applied via Ventimask and a bite block was applied. We monitored O2 saturation continuously, cardiac rhythm was continuously monitored, blood pressure was intermittently monitored. After adequate IV conscious sedation, the bronchoscope was advanced through the bite block down to the area of the vocal cords. Around the vocal cords, there was significant amount of whitish cheesy-like secretions, involving the whole mucosa around the vocal cords and even the posterior portion of the vocal cords. Difficult to suction. Then, lidocaine was applied over the vocal cords, the bronchoscope was advanced further down. Thorough examination was done of trachea, pia, right upper lobe, right middle lobe, right lower lobe. There was evidence of significant amount of copious purulent secretions throughout the whole bronchial tree. I had to lavage all the different areas including the trachea, the right upper lobe, the right middle lobe, the right lower lobe until all the secretions were cleared on the right side. Then, moved to the left side and did the same. Left upper lobe was lavaged, lingula was lavaged, and the left lower lobe was lavaged until all the purulent thick secretions were removed from the airways. Procedure was well tolerated, fluid was sent for different diagnostic studies, no complications. Updated family on her condition. MMODL / IJN: [id number] /
[2025-02-21 06:08] LABS: Glucose,Whole Blood 132 mg/dL (70-110)
--- NOTE | 2025-02-21 06:44 | XR ---
EXAMINATION TYPE: XR chest 1V portable DATE OF EXAM: 02/21/2025 CLINICAL INDICATION: Female, 79 years old with history of SOB, progress study. TECHNIQUE: Single AP portable semiupright view of the chest is obtained. COMPARISON: Chest x-ray from February 18, 2025 FINDINGS: More prominent multifocal right lung increased opacities. Persistent cardiomegaly and mild bilateral interstitial prominence. Surgical change to the cervical spine is redemonstrated. IMPRESSION: New multifocal right lung acute infiltrates and/or edema. [facility], , 02/21/2025 6:42 AM
[2025-02-21 07:55] LABS: African American GFR (CKD) 53 (>60 ml/min/1.73 sqM); Anion Gap 12 mmol/L; Blood Urea Nitrogen 33 mg/dL (7-17); Calcium 10.2 mg/dL (8.4-10.2); Carbon Dioxide 25 mmol/L (22-30); Chloride 100 mmol/L (98-107); Glucose 119 mg/dL (74-99); HCT 34.6 % (37.2-46.3); HGB 10.7 g/dL (12.0-15.0); MCH 31.3 pg (27.0-32.0); MCHC 30.9 g/dL (32.0-37.0); MCV 101.2 fL (80.0-97.0); Magnesium 2.3 mg/dL (1.6-2.3); Mean Platelet Volume 10.3 fL (9.5-12.2); Non-African American GFR(CKD) 46 (>60 ml/min/1.73 sqM); Platelet Count 307 10*3/uL (140-440); Potassium 4.3 mmol/L (3.5-5.1); RBC 3.42 10*6/uL (4.10-5.20); RDW 17.5 % (11.5-14.5); Sodium 137 mmol/L (137-145); WBC 15.27 10*3/uL (4.50-10.00)
[2025-02-21] MEDS: FUROSEMIDE 10 MG/ML 4 ML VIAL IV STA ×2 (10:35→18:48)
[2025-02-21] MEDS: DEXAMETHASONE SOD PHOSPHATE 4 MG/ML 1 ML VIAL IVP STA (10:35)
[2025-02-21 11:42] LABS: Glucose,Whole Blood 137 mg/dL (70-110)
--- NOTE | 2025-02-21 12:07 | P.PN ---
Subjective Patient is seen for follow-up for acute kidney injury. Renal function has improved and serum creatinine staying at around 1.1 mg/dL. Status post bronchoscopy and bronchoalveolar lavage. Cough only slightly improved today. Objective - Vital Signs Vital signs: Vital Signs Temp 96.8 F L 02/21/25 11:37 Pulse 94 02/21/25 11:43 Resp 20 02/21/25 11:37 BP 151/77 02/21/25 11:37 Pulse Ox 96 02/21/25 11:37 FiO2 Intake & Output 02/20/25 02/21/25 02/21/25 18:59 06:59 18:59 Intake Total 238 20 180 Balance 238 20 180 Weight 77.3 kg 73.5 kg Intake: IV 120 20 Invasive Line 3 20 20 Oral 118 180 Other: Voiding Method Toilet Toilet Bedside Commode Bedside Commode - Exam Patient is awake, comfortable, no acute distress Alert and oriented x 3 Examination of the lungs bilateral breath sounds are heard, bilateral wheezing Abdomen soft obese, tenderness noted Examination of lower extremities shows no significant edema [employer] exam grossly intact - Labs CBC & Chem 7: 02/21/25 07:00 02/21/25 07:00 Labs: Abnormal Lab Results - Last 24 Hours (Table) 02/20/25 02/20/25 02/21/25 Range/Units 16:44 20:08 06:07 WBC (4.50-10.00) 10*3/uL RBC (4.10-5.20) 10*6/uL Hgb (12.0-15.0) g/dL Hct (37.2-46.3) % MCV (80.0-97.0) fL MCHC (32.0-37.0) g/dL BUN (7-17) mg/dL Creatinine (0.52-1.04) mg/dL Glucose (74-99) mg/dL POC Glucose (mg/dL) 153 H 187 H 132 H (70-110) mg/dL 02/21/25 02/21/25 02/21/25 Range/Units 07:00 07:00 11:40 WBC 15.27 H (4.50-10.00) 10*3/uL RBC 3.42 L (4.10-5.20) 10*6/uL Hgb 10.7 L (12.0-15.0) g/dL Hct 34.6 L (37.2-46.3) % MCV 101.2 H (80.0-97.0) fL MCHC 30.9 L (32.0-37.0) g/dL BUN 33 H (7-17) mg/dL Creatinine 1.14 H (0.52-1.04) mg/dL Glucose 119 H (74-99) mg/dL POC Glucose (mg/dL) 137 H (70-110) mg/dL Assessment and Plan Assessment: 1. Acute kidney injury, ATN secondary to hypotension in the setting of use of angiotensin receptor blockers and recent diuresis. Nonoliguric. Improved. 2. Chronic kidney disease stage IIIa with baseline creatinine around 1.0 to 1.3 mg/dL. Etiology is nephrosclerosis. Serum creatinine was 0.8 on 02/12/2025 most likely secondary to volume overload. 3. COPD maintained on home oxygen 4. CHF with decreased ejection fraction of 30 to 35%, acute exacerbation on admission, now improved post diuresis. 5. Chronic A-fib, currently off of anticoagulation due to abdominal wall hematoma 6. Right lateral abdominal wall hematoma status post drainage 7. Acute tracheobronchitis Plan: Continue off of calcitriol Continue off of IV fluids Continue to hold angiotensin receptor blockers and diuretics for now. Repeat labs in a.m.
--- NOTE | 2025-02-21 13:07 | P.PN ---
Subjective Progress Note Date: 02/21/25 This is a 79-year-old female patient was being seen in consultation for shortness of breath. The patient has a large number of medical problems and comorbidities. She was in the hospital in December 2024 and she was discharged home on 01/18/2025 after being treated for an acute on chronic respiratory failur e due to COPD/asthma exacerbation and purulent tracheobronchitis. She is known to have CAD, CHF with impaired LV function with an ejection fraction of 30 to 35% and she has chronic atrial fibrillation. Following her discharge, the patient came into the emergency department on 01/21/2025 with abdominal pain and at that time, CAT scan of the abdomen and pelvis showed a large interpretation versus intramuscular hematoma of the right lateral abdominal wall measuring 14 x 6 x 18 cm in size. The patient accordingly was transferred to [facility] with I believe the hematoma was drained. Noted, at that time, the patient was also receiving anticoagulants with warfarin and her INR was slightly above therapeutic range. Since then, the patient has been taken off anticoagulants. The patient is coming into the hospital with worsening shortness of breath. She denies having any chest pain. The hematoma over the right lateral abdominal wall seems to be recovered and there is no active issues regarding that problem. For now, she remains in atrial fibrillation. Her chest x-ray was noted and it shows no significant airspace disease. There is cardiomegaly and pulm vessel congestion. CTA of the chest was also done and showed no evidence of any pulmonary embolism. There is a small density in the posterior right lung which is a nonspecific findings. There is also evidence of pulm vessel congestion specially in the mid and upper lobes bilaterally. The patient's white cell count currently is at 8.1 with a hemoglobin 9.8 and a platelet count of 384. Coagulation profile is within normal limits. BUN 16 with a creatinine of 0.8. Sodium is at 139 and potassium level is at 3.5. Troponins are 0.08 and 0.1 and 0.1 respectively and a proBNP level is 14,000. Procalcitonin level is at 0.2. The LFTs are essentially within normal limits. Total protein is at 6.2 with a albumin level of 3.5. The patient was given IV Lasix and currently she is on Lasix 40 mg IV push every 12 hours. She is producing excellent amount of urine output and she is feeling better while she is being diuresed. She remains on metoprolol 12.5 mg p.o. twice a day. She is on Symbicort as maintenance and D uoNeb nebulizer treatments [id number]. She is on Plavix. No anticoagulants for now. On today's evaluation 02/14/2025, the patient is being seen for a follow-up. The patient is doing well. She has diuresed adequately over the past 24 hours and the patient remains on IV Lasix. She continues to produce adequate amount of urine output. She remains on oxygen 2 L/min nasal cannula. She remains in atrial fibrillation. No chest pain. No cough or sputum production. She was restarted on Pradaxa. She remains on Symbicort and DuoNeb number of treatments [id number]. IV Lasix 40 mg every 12 hours. Rest of the medications are essentially unchanged. Aldactone was also added to her regimen. Sodium levels at 137 with a potassium level of 3.1, BUN 17 with a creatinine of 1.07 and a serum bicarbonate 30. White cell count is at 7 with a hemoglobin of 10.1. On today's evaluation of 02/15/2025, the patient is feeling better. Some limited cough. No significant sputum production. Continues to receive diuretics with IV Lasix and the patient's fluid balance is negative and remains negative over the past 24 hours. No hemoptysis. No pleurisy. No chest pain. No altered mentation. No other significant events overnight. Net fluid balance is 2 L over the past 24 hours. BUN is 18 with a creatinine of 1.5. Sodium is at 140 and a potassium level is at 3.6. No fever. No chills. No other complaints otherwise. On a separate note, the patient is still being seen by cardiology. She is on Cozaar, Lopressor and Aldactone 25 mg p.o. daily. She remains on Plavix. She remains on statins with Lipitor 40 mg p.o. daily. Rest of the home medications have been resumed. She is on Symbicort and DuoNeb nebulizer treatments [id number]. Oxygenation is stable and the patient is currently on 2 L of O2 nasal cannula with pulse ox of 94 to 98%. 02/16/2025, the patient is complaining of cough. No significant sputum production. Shortness is improved. The patient's white cell count is at 6.7 with hemoglobin 10.8. BUN is 20 with a creatinine of 1.6. Sodium levels at 134 with a potassium level of 3.4. She is on 2 L of oxygen by nasal cannula with a pulse ox of 94%. She was taken off the diuretics. She is only on Aldactone 12.5 mg p.o. daily. She is currently off Lasix. Remains on Symbicort. Remains on DuoNeb updrafts. Remains on Plavix and Pradaxa. Remains on metoprolol 25 mg p.o. twice a day. Hemodynamically stable. On 02/17/2025, the patient is being seen for a follow-up. Due to her ongoing symptoms of cough, the patient was started on IV Solu-Medrol yesterday at a dose of 40 mg every 6 hours. She was also given DuoNeb updrafts [id number] and Symbicort 2 puffs twice a day. Symptoms have essentially unchanged and the patient continues to have frequent coughing spells. No significant sputum production. No hemoptysis or pleurisy. She is awake and alert. She is communicating. Pulse ox is noted of 96% with some oxygen by nasal cannula. No reported aspiration. The white cell count 7.3 with a hemoglobin 10.9 and a platelet count of 426. Rest of electrolytes are all within normal limits. Blood sugars at 133. No other issues for now other than her ongoing coughing. No hemoptysis. The patient is seen today February 18, 2025 in follow-up on the selective care unit. She is currently sitting up in bed. Awake and alert in no acute distress. She still has a dry nonproductive cough. She is maintaining good O2 saturations in upper 90s on room air. She has been afebrile. Hemodynamically stable. Sputum culture pending. White count 11.0. Hemoglobin 10.2. Platelets 404. Sodium 132. Potassium 4.4. Bicarb 23. BUN 25. Creatinine 1.17. Glucose 135. She remains on Symbicort, albuterol, Solu-Medrol and Singulair. S he is on Robitussin and Tessalon Perles for her cough. The patient is seen today February 19, 2025 in follow-up on the selective care unit. She continues to have issues with cough and congestion. Not much improvement. She is maintaining O2 saturations in the 90s on 2 L/min per nasal cannula. Her cough is productive with thick yellow sputum. Sputum culture revealed no growth. Chest x-ray showing mild cardiomegaly and interstitial changes. Pulmonary vascular congestion. Slight improvement. White count 11.4. Hemoglobin 10.6. Platelets 358. Sodium 137. Potassium 4.1. Bicarb 26. BUN 27. Creatinine 1.09. Glucose 136. She remains on DuoNeb inhalations, Symbicort, IV Solu-Medrol. She is also on Singulair, Robitussin, Tessalon Perles The patient is seen today February 20, 2025 and follow-up on the selective care unit. She is sitting up in bed. Awake and alert in no acute distress. Continues with persistent currently dry cough. Maintaining O2 saturations up to 100% on 2 L/min per nasal cannula. Sputum culture revealed no growth. White count 16.4. Hemoglobin 10.7. Platelets 347. Sodium 136. Potassium 4.2. Bicarb 24. BUN 34. Creatinine 1.10. Glucose 128. She remains on Tessalon Perles and Robitussin as needed. Continued on DuoNeb inhalations, Symbicort, Solu-Medrol. Empiric antibiotics in the form of doxycycline. The patient is seen today February 21, 2025 in follow-up on the selective care unit. She is awake and alert in no acute distress. Sitting up in bed. Maintaining O2 saturations in the 90s on 2 L/min per nasal cannula. She is still not feeling much better. She did undergo bronchoscopy with BAL with many thick secretions removed. She is still somewhat bronchospastic and wheezing. Still with a cough. She remains on DuoNeb inhalations, Symbicort, Solu-Medrol at 60 mg every 6 hours. She is continued on Tessalon Perles and Robitussin. Continued on doxycycline. Initiated on Diflucan yesterday with yeast to be invisible during the procedure. Continues on diuretics. White count 15.2. Hemoglobin 10.7. Platelets 307. Sodium 137. Potassium 4.3. Bicarb 25. BUN 33. Creatinine 1.14. Glucose 119. Objective - Vital Signs Vital signs: Vital Signs Temp 96.8 F L 02/21/25 11:37 Pulse 94 02/21/25 11:43 Resp 20 02/21/25 11:37 BP 151/77 02/21/25 11:37 Pulse Ox 96 02/21/25 11:37 FiO2 Intake & Output 02/20/25 02/21/25 02/21/25 18:59 06:59 18:59 Intake Total 238 20 180 Balance 238 20 180 Weight 77.3 kg 73.5 kg Intake: IV 120 20 Invasive Line 3 20 20 Oral 118 180 Other: Voiding Method Toilet Toilet Bedside Commode Bedside Commode - Exam GENERAL EXAM: Alert, weak 79-year-old female, sitting up in bed, on 2 L nasal cannula, in no apparent distress. HEAD: Normocephalic. EYES: Normal reaction of pupils, equal size. NOSE: Clear with pink turbinates. THROAT: No erythema or exudates. NECK: No masses, no JVD. CHEST: No chest wall deformity. LUNGS: Equal air entry with few crackles in the bilateral bases. CVS: S1 and S2 normal with no audible murmur, irregular rhythm. ABDOMEN: Soft hematoma. No hepatosplenomegaly, normal bowel sounds, no guarding or rigidity. SPINE: No scoliosis or deformity SKIN: No rashes CENTRAL NERVOUS SYSTEM: No focal deficits, tone is normal in all 4 extremities. EXTREMITIES: There is no peripheral edema. No clubbing, no cyanosis. Peripheral pulses are intact. - Labs CBC & Chem 7: 02/21/25 07:00 02/21/25 07:00 Labs: Abnormal Lab Results - Last 24 Hours (Table) 02/20/25 02/20/25 02/21/25 Range/Units 16:44 20:08 06:07 WBC (4.50-10.00) 10*3/uL RBC (4.10-5.20) 10*6/uL Hgb (12.0-15.0) g/dL Hct (37.2-46.3) % MCV (80.0-97.0) fL MCHC (32.0-37.0) g/dL BUN (7-17) mg/dL Creatinine (0.52-1.04) mg/dL Glucose (74-99) mg/dL POC Glucose (mg/dL) 153 H 187 H 132 H (70-110) mg/dL 02/21/25 02/21/25 02/21/25 Range/Units 07:00 07:00 11:40 WBC 15.27 H (4.50-10.00) 10*3/uL RBC 3.42 L (4.10-5.20) 10*6/uL Hgb 10.7 L (12.0-15.0) g/dL Hct 34.6 L (37.2-46.3) % MCV 101.2 H (80.0-97.0) fL MCHC 30.9 L (32.0-37.0) g/dL BUN 33 H (7-17) mg/dL Creatinine 1.14 H (0.52-1.04) mg/dL Glucose 119 H (74-99) mg/dL POC Glucose (mg/dL) 137 H (70-110) mg/dL Assessment and Plan Assessment: Acute on chronic shortness of breath, most likely secondary to CHF. Reviewed the CAT scan of the chest and there is increased interstitial edema the patient is responding nicely to diuretics. No evidence of any airspace disease or pneumonia. No signs of any COPD/asthma exacerbation. proBNP level is elevated above 14,000. Nonspecific elevation of the troponins. EKG showing atrial fibr illation with a controlled rate. No acute ischemic changes. Most recent echocardiogram done on 01/05/2024 in the records shows systolic heart failure and repeat echocardiogram from 10/26/2024 showed an ejection fraction of 45 to 50% and the patient also has moderate MR, moderate to severe TR, severe pulm hypertension with a PA pressure of 68. The patient is responding to diuresis Acute hypoxic respiratory failure secondary to above Persistent cough/COPD exacerbation. Bronchoscopy with BAL performed 02/20/2025 with significant thick secretions removed. Cultures pending Candidiasis, oral, initiated on Diflucan Chronic systolic heart failure Chronic pulmonary hypertension group 2/3 Valvular heart disease with moderate MR, moderate to severe TR Coronary artery disease with previous PCI and stenting of the LAD on 01/04/2024 COPD/asthma with secondary symptoms of dyspnea wheezing cough. Chronic atrial fibrillation Right lateral abdominal wall hematoma post drainage and the patient is currently off anticoagulants Hypertension Hyperlipidemia Previous history of CVA/TIA Previous history of GI bleed History of nephrolithiasis History of melanoma, resected History of diverticulosis History of rheumatoid arthritis, currently inactive and stable Plan: The patient was seen and evaluated Chest x-ray, labs and medications reviewed Bronchoscopy with BAL performed yesterday Still without much improvement Give Decadron 4 mg IVP x 1 Give Lasix 40 mg IVP x 1 Continue Aldactone Continue bronchodilators, Solu-Medrol, Singulair Continue Robitussin/Tessalon perles Titrate down the FiO2 as tolerated We will continue to follow I have personally seen and examined the patient, performed the documentation and the assessment and plan as written. Number of minutes spent on the visit: 10 Dictation was produced using [employer] dictation software. Please excuse any grammatical, word or spelling errors.
--- NOTE | 2025-02-21 13:54 | P.PN ---
Subjective Progress Note Date: 02/21/25 Hospital Course: Patient is a pleasant 79-year-old female with a past medical history of CAD status post recent stenting (01/04/24), chronic persistent atrial fibrillation, chronic systolic heart failure with previously known EF of 30 to 35%, hypertension, COPD with chronic hypoxic respiratory failure home oxygen dependent on 2 L at all times, and stage IIIb chronic kidney disease. She follows with Lav Crewman. Dr. Bajwa and PCP Dr. Mcneal. She presented to the hospital on 02/12/2025 with a chief complaint of shortness of breath status post discharged from rehabilitation facility after undergoing interventional radiology for drainage of abdominal hematoma. Upon arrival to our facility, patient underwent evaluation in the emergency department. Vital signs upon arrival show blood pressure 129/86, heart rate 103, respiratory rate 24, temp 97.7 F, and SpO2 95% on baseline home oxygen 2 L EKG was completed showing atrial fibrillation at 106 bpm with occasional PVC. Chest x-ray revealing right lower lobe infiltrate. Labs completed and reviewed. CBC showing macrocytic anemia with hemoglobin of 9.8 and MCV of 97.4. Coagulation profile showing a subtherapeutic INR of 1.0 (as pt has been holding warfarin secondary to abdominal wall hematoma) and a low PTT of 21.2. BMP showing non-anion gap metabolic acidosis with chloride of 110, bicarb 21, and anion gap of 8. Blood glucose was 105. Calcium 9.3. Liver profile showing elevated total bili of 1.9 and AST of 37. CRP elevated at 2.8. proBNP was 14,000. Troponin was elevated at 0.081. CTA chest completed negative for pulmonary emboli showing a small density posterior right lung likely infiltrate, however unable to rule out mass recommending follow-up imaging. Troponins trended resulting at 0.081, 0.104, 0.101. Subjective: Patient seen and examined at bedside. No acute events overnight. Still reports feeling shortness of breath. Denies any chest pain, palpitations, nausea, vomiting, lower extremity edema. Pertinent positives and negatives as discussed above, a complete review of systems was performed and all other systems are negative. Vitals: Signs Reviewed Physical Exam: General: nontoxic, no distress, appears at stated age Derm: warm, dry, intact Head: atraumatic, normocephalic, symmetric Eyes: EOMI, anicteric sclera Mouth: no lip lesion, mucus membranes moist Cardiovascular: S1 S2 reg, no murmur, rubs, or gallops Lungs: Diffuse inspiratory wheezing across lung ren more prominent on the right side, no rhonchi, stridor, no use of accessory muscles Abdominal: soft, non-tender to palpataion, no appreciable organomegaly Extremities: No gross muscle atrophy, no edema Neuro: Alert, Oriented, CNII-XII grossly intact, gait normal Psych: well appearing, appropriate affect Data Received Today: Pertinent Labs: WBC 15.27, hemoglobin 10.7, hematocrit 34.6, platelet 307, sod ium 137, potassium 4.3, BUN 33, creatinine 1.14 Vitals: Temperature 96.8, pulse rate 89, respiratory rate 20, blood pressure 151/77, O2 sat 96% on nasal cannula at 3 L/min Imaging: Chest x-ray independently interpreted showed new multifocal right lung acute infiltrates and/or edema Assessment and Plan: COPD with chornic hypoxic respiraotry failure on NC at 3 L, with acute exacerbation Intractable nonproductive cough/bronchial asthma Acute purulent tracheobronchitis Possible esophageal/oral candidiasis -Patient underwent bronchoscopy and bronchoalveolar lavage on 02/20/2025 which revealed acute purulent tracheobronchitis and possible candidiasis/oral thrush, pending results from BAL - Continue Solu-Medrol 60 mg IVP every 6 hours Lasix 40 mg IV x 1 and Decadron 4 mg IV x 1 ordered by pulmonology today -Continue scheduled DuoNebs 4 times daily and every 6 hours as needed for wheezing/shortness of breath, Symbicort 160-4.5 mcg inhaler 2 puffs twice daily, and Singulair 10 mg nightly. -Continue supplemental oxygen to maintain SpO2 equal to or greater than 90%. -Continue Tessalon pearls 200 mg 3 times daily and Robitussin AC 10 mL every 4 hours as needed for cough. -Patient was started on empiric antibiotics with doxycycline 100 mg twice daily on 02/19/2025, and fluconazole 200 mg daily Abdominal wall hematoma -CT abdomen and pelvis showing redemonstration of right anterolateral abdominal wall intrafascial versus intramuscular hematoma, reported to be mildly decreased in size from prior exam but still measuring up to 14.8 cm. Patient did have previous hematoma in this location measuring up to 16 cm but was transferred to [facility] for drainage by IR. -Consult placed interventional radiology for drainage, IR stating they are unable to do drain, recommending if drainage needed to consult general surgery. -Will continue to hold Pradaxa and encourage patient to wear abdominal binder at all times and apply ice packs to hematoma. -Monitor hemoglobin levels closely and if hemoglobin remained stable we will hold off on drainage and allow for patient time to naturally reabsorb hematoma as surgical intervention with general surgery would be of greater risk and pt declines transfer to [facility] for IR. -Hemoglobin currently stable at 10.7. Morning CBC Acute kidney injury, improved -Secondary to IV diuresis, patient developed acute kidney injury with baseline creatinine of 0.84 increasing up to 1.62. Renal function with BUN of 33, creatinine 1.14, GFR 46 -Nephrology following, Dr. Woods recommending to continue to hold off angiotensin receptor blockers and diuretics for now. Acute HFrEF, last echo showing lvef of 30-35% Elevated troponins, likely type II NSTEMI secondary to above Chronic persistent atrial fibrillation Hypertension History of CAD status post stenting -Cardiology evaluated. Lasix and losartan was discontinued. Aldactone decreased to 12.5 mg daily. Cardiology clearing patient from cardiac perspective for discharge. -Telemetry monitoring -Troponins trended resulting at 0.081, 0.104, 0.101. ProBNP 14,000 -Daily weights and Close monitoring of I's and O's -Cardiac diet -Continue cardiac medication regimen with Plavix 75 mg daily, atorvastatin 40 mg nightly, Aldactone 12.5 mg daily and metoprolol 25 mg twice daily. Hypokalemia. Resolved after replacement. Hypomagnesemia. Resolved after replacement. Neuropathy. Continue home lyrica 100 mg BID Major depression disorder. Continue home medication regimen with cymbalta 60 mg daily Pneumonia ruled out, procalcitonin negative. IV antibiotics discontinued. CODE STATUS: Full code DVT prophylaxis: ARI dotson and SCDs Discussed with: Patient and RN Anticipated discharge date: Pending clinical course Anticipated discharge place: Pending clinical course I have seen and evaluated the patient today. Discussed with the resident and agree with the residents finding and plan as documented in the resident's note. Changes highlighted in blue font. Objective - Vital Signs Vital signs: Vital Signs Temp 98.2 F 02/21/25 04:00 Pulse 85 02/21/25 04:40 Resp 16 02/21/25 04:00 BP 148/91 02/21/25 04:00 Pulse Ox 98 02/21/25 04:00 FiO2 Intake & Output 02/20/25 02/21/25 02/21/25 18:59 06:59 18:59 Intake Total 238 20 Balance 238 20 Weight 77.3 kg 73.5 kg Intake: IV 120 20 Invasive Line 3 20 20 Oral 118 Other: Voiding Method Toilet Toilet Bedside Commode Bedside Commode - Labs CBC & Chem 7: 02/21/25 07:00 02/21/25 07:00 Labs: Abnormal Lab Results - Last 24 Hours (Table) 02/20/25 02/20/25 02/20/25 Range/Units 11:54 16:44 20:08 WBC (4.50-10.00) 10*3/uL RBC (4.10-5.20) 10*6/uL Hgb (12.0-15.0) g/dL Hct (37.2-46.3) % MCV (80.0-97.0) fL MCHC (32.0-37.0) g/dL BUN (7-17) mg/dL Creatinine (0.52-1.04) mg/dL Glucose (74-99) mg/dL POC Glucose (mg/dL) 124 H 153 H 187 H (70-110) mg/dL 02/21/25 02/21/25 02/21/25 Range/Units 06:07 07:00 07:00 WBC 15.27 H (4.50-10.00) 10*3/uL RBC 3.42 L (4.10-5.20) 10*6/uL Hgb 10.7 L (12.0-15.0) g/dL Hct 34.6 L (37.2-46.3) % MCV 101.2 H (80.0-97.0) fL MCHC 30.9 L (32.0-37.0) g/dL BUN 33 H (7-17) mg/dL Creatinine 1.14 H (0.52-1.04) mg/dL Glucose 119 H (74-99) mg/dL POC Glucose (mg/dL) 132 H (70-110) mg/dL
[2025-02-21 16:17] LABS: Glucose,Whole Blood 144 mg/dL (70-110)
[2025-02-21 16:20] LABS: Appearance,BF Turbid (Clear); RBC, Body Fluid 525 /UL (0-2000)
[2025-02-21 19:58] LABS: Glucose,Whole Blood 235 mg/dL (70-110)
[2025-02-21] MEDS: MELATONIN 5 MG TABLET PO PRN (21:42)
[2025-02-22 06:26] LABS: Glucose,Whole Blood 148 mg/dL (70-110)
[2025-02-22 06:49] LABS: Basophils # (A) 0.04 10*3/uL (0.00-0.10); Basophils % (A) 0.4 %; HCT 34.8 % (37.2-46.3); Lymphocytes # (A) 0.56 10*3/uL (0.90-5.00); Lymphocytes % (A) 5.6 %; MCH 31.6 pg (27.0-32.0); MCHC 31.6 g/dL (32.0-37.0); Mean Platelet Volume 10.6 fL (9.5-12.2); Monocytes # (A) 0.67 10*3/uL (0.20-1.00); Monocytes % (A) 6.7 %; Neutrophils % (A) 82.8 %; Platelet Count 256 10*3/uL (140-440); RBC 3.48 10*6/uL (4.10-5.20); RDW 17.2 % (11.5-14.5); WBC 10.02 10*3/uL (4.50-10.00)
[2025-02-22 07:16] LABS: ALT 27 U/L (4-34); AST 30 U/L (14-36); African American GFR (CKD) 44 (>60 ml/min/1.73 sqM); Albumin 3.8 g/dL (3.5-5.0); Alkaline Phosphatase 84 U/L (38-126); Anion Gap 10 mmol/L; Blood Urea Nitrogen 43 mg/dL (7-17); Calcium 9.4 mg/dL (8.4-10.2); Carbon Dioxide 29 mmol/L (22-30); Chloride 100 mmol/L (98-107); Glucose 150 mg/dL (74-99); Non-African American GFR(CKD) 39 (>60 ml/min/1.73 sqM); Potassium 3.8 mmol/L (3.5-5.1); Sodium 139 mmol/L (137-145); Total Bilirubin 1.1 mg/dL (0.2-1.3); Total Protein 6.4 g/dL (6.3-8.2)
[2025-02-22 09:05] LABS: Nucleated Cells, Body Fluid 10800 /UL
[2025-02-22] MEDS: NYSTATIN 100,000 UNIT/ML SUSP 500,000 UNIT/5 ML CUP PO SCH (10:13)
[2025-02-22 11:11] LABS: Glucose,Whole Blood 150 mg/dL (70-110)
--- NOTE | 2025-02-22 14:41 | P.PN ---
Subjective Progress Note Date: 02/22/25 Hospital Course: Patient is a pleasant 79-year-old female with a past medical history of CAD status post recent stenting (01/04/24), chronic persistent atrial fibrillation, chronic systolic heart failure with previously known EF of 30 to 35%, hypertension, COPD with chronic hypoxic respiratory failure home oxygen dependent on 2 L at all times, and stage IIIb chronic kidney disease. She follows with Taste Tester. Dr. Bajwa and PCP Dr. Mcneal. She presented to the hospital on 02/12/2025 with a chief complaint of shortness of breath status post discharged from rehabilitation facility after undergoing interventional radiology for drainage of abdominal hematoma. Upon arrival to our facility, patient underwent evaluation in the emergency department. Vital signs upon arrival show blood pressure 129/86, heart rate 103, respiratory rate 24, temp 97.7 F, and SpO2 95% on baseline home oxygen 2 L EKG was completed showing atrial fibrillation at 106 bpm with occasional PVC. Chest x-ray revealing right lower lobe infiltrate. Labs completed and reviewed. CBC showing macrocytic anemia with hemoglobin of 9.8 and MCV of 97.4. Coagulation profile showing a subtherapeutic INR of 1.0 (as pt has been holding warfarin secondary to abdominal wall hematoma) and a low PTT of 21.2. BMP showing non-anion gap metabolic acidosis with chloride of 110, bicarb 21, and anion gap of 8. Blood glucose was 105. Calcium 9.3. Liver profile showing elevated total bili of 1.9 and AST of 37. CRP elevated at 2.8. proBNP was 14,000. Troponin was elevated at 0.081. CTA chest completed negative for pulmonary emboli showing a small density posterior right lung likely infiltrate, however unable to rule out mass recommending follow-up imaging. Troponins trended resulting at 0.081, 0.104, 0.101. Subjective: Patient seen and examined at bedside. No acute events overnight. Patient reports that shortness of breath has significantly improved compared to yesterday. However patient reports difficulty swallowing that started yesterday with a burning sensation. Denies any fever, chills, chest pain, palpitations, nausea, vomiting, diarrhea, constipation, belly pain, lower extremity edema. Pertinent positives and negatives as discussed above, a complete review of systems was performed and all other systems are negative. Vitals: Signs Reviewed Physical Exam: General: nontoxic, no distress, appears at stated age Derm: warm, dry, intact Head: atraumatic, normocephalic, symmetric Eyes: EOMI, anicteric sclera Mouth: no lip lesion, mucus membranes moist Cardiovascular: S1 S2 reg, no murmur, rubs, or gallops Lungs: Diffuse expiratory wheezing across lung ren more prominent on the ri ght side, no rhonchi, stridor, no use of accessory muscles Abdominal: soft, non-tender to palpataion, no appreciable organomegaly Extremities: No gross muscle atrophy, no edema Neuro: Alert, Oriented, CNII-XII grossly intact, gait normal Psych: well appearing, appropriate affect Data Received Today: Pertinent Labs: WBC 10.02, hemoglobin 11, hematocrit 34.8, platelets 256, sodium 139, potassium 3.8, chloride 100, carbon dioxide 29, BUN 43, creatinine 1.32, glucose 150 Vitals: Temperature 97.4, pulse rate 78, respiratory rate 16, blood pressure 132/79, O2 sat 98% on nasal cannula 3 L/min Imaging: Chest x-ray on 02/21/2025 showed new multifocal right lung acute infiltrates and/or edema Assessment and Plan: COPD with chornic hypoxic respiraotry failure on NC, with acute exacerbation likely triggered by presenting CHF exacerbation Intractable nonproductive cough/bronchial asthma Acute purulent tracheobronchitis Possible candidiasis/oral thrush -Patient underwent bronchoscopy and bronchoalveolar lavage on 02/20/2025 which revealed acute purulent tracheobronchitis and possible candidiasis/oral thrush -Bronchoalveolar washing shows moderate polymorphonuclear leukocytes and few yeast cells -Continue Solu-Medrol 60 mg IVP every 6 hours -Continue scheduled DuoNebs 4 times daily and every 6 hours as needed for wheezing/shortness of breath, Symbicort 160-4.5 mcg inhaler 2 puffs twice daily, and Singulair 10 mg nightly. -Continue supplemental oxygen to maintain SpO2 equal to or greater than 90%. -Continue Tessalon pearls 200 mg 3 times daily and Robitussin AC 10 mL every 4 hours as needed for cough. -Patient was started on empiric antibiotics with doxycycline 100 mg twice daily on 02/19/2025 Dysphagia -Pending speech therapy evaluation Abdominal wall hematoma -CT abdomen and pelvis showing redemonstration of right anterolateral abdominal wall intrafascial versus intramuscular hematoma, reported to be mildly decreased in size from prior exam but still measuring up to 14.8 cm. Patient did have previous hematoma in this location measuring up to 16 cm but was transferred to [facility] for drainage by IR. -Consult placed interventional radiology for drainage, IR stating they are unable to do drain, recommending if drainage needed to consult general surgery. -Will continue to hold Pradaxa and encourage patient to wear abdominal binder at all times and apply ice packs to hematoma. -Monitor hemoglobin levels closely and if hemoglobin remained stable we will hold off on drainage and allow for patient time to naturally reabsorb hematoma as surgical intervention with general surgery would be of greater risk and pt declines transfer to [facility] for IR. -Hemoglobin currently stable at 11.0 -Morning CBC Acute kidney injury, improved -Secondary to IV diuresis, patient developed acute kidney injury with baseline creatinine of 0.84 increasing up to 1.62. Renal function with BUN of 43, cre atinine 1.32 GFR 44 -Nephrology following, Dr. Woods recommending to continue to hold off angiotensi n receptor blockers and diuretics for now. Acute HFrEF, last echo showing lvef of 30-35% Elevated troponins, likely type II NSTEMI secondary to above Chronic persistent atrial fibrillation Hypertension History of CAD status post stenting -Cardiology evaluated. Lasix and losartan was discontinued. Aldactone decreased to 12.5 mg daily. Cardiology clearing patient from cardiac perspective for discharge. -Telemetry monitoring -Troponins trended resulting at 0.081, 0.104, 0.101. ProBNP 14,000 -Daily weights and Close monitoring of I's and O's -Cardiac diet -Continue cardiac medication regimen with Plavix 75 mg daily, atorvastatin 40 mg nightly, Aldactone 12.5 mg daily and metoprolol 25 mg twice daily. Hypokalemia. Resolved after replacement. Hypomagnesemia. Resolved after replacement. Neuropathy. Continue home lyrica 100 mg BID Major depression disorder. Continue home medication regimen with cymbalta 60 mg daily Pneumonia ruled out, procalcitonin negative. IV antibiotics discontinued. CODE STATUS: Full code DVT prophylaxis: ARI dotson and SCDs Discussed with: Patient and RN Anticipated discharge date: Pending clinical course Anticipated discharge place: Pending clinical course I have seen and evaluated the patient today. Discussed with the resident and agree with the residents finding and plan as documented in the resident's note. Changes highlighted in blue font. Objective - Vital Signs Vital signs: Vital Signs Temp 98.4 F 02/22/25 00:00 Pulse 74 02/22/25 04:00 Resp 18 02/22/25 04:00 BP 93/76 02/22/25 04:00 Pulse Ox 98 02/22/25 04:00 FiO2 Intake & Output 02/21/25 02/21/25 02/22/25 06:59 18:59 06:59 Intake Total 20 360 Balance 20 360 Weight 73.5 kg 77.9 kg Intake: IV 20 Invasive Line 3 20 Oral 360 Other: Voiding Method Toilet External Catheter External Catheter Bedside Commode - Labs CBC & Chem 7: 02/22/25 05:50 02/22/25 05:50 Labs: Abnormal Lab Results - Last 24 Hours (Table) 02/20/25 02/21/25 02/21/25 Range/Units 13:20 07:00 07:00 WBC 15.27 H (4.50-10.00) 10*3/uL RBC 3.42 L (4.10-5.20) 10*6/uL Hgb 10.7 L (12.0-15.0) g/dL Hct 34.6 L (37.2-46.3) % MCV 101.2 H (80.0-97.0) fL MCHC 30.9 L (32.0-37.0) g/dL BUN 33 H (7-17) mg/dL Creatinine 1.14 H (0.52-1.04) mg/dL Glucose 119 H (74-99) mg/dL POC Glucose (mg/dL) (70-110) mg/dL Fluid Appearance Turbid A (Clear) 02/21/25 02/21/25 02/21/25 Range/Units 11:40 16:15 19:56 WBC (4.50-10.00) 10*3/uL RBC (4.10-5.20) 10*6/uL Hgb (12.0-15.0) g/dL Hct (37.2-46.3) % MCV (80.0-97.0) fL MCHC (32.0-37.0) g/dL BUN (7-17) mg/dL Creatinine (0.52-1.04) mg/dL Glucose (74-99) mg/dL POC Glucose (mg/dL) 137 H 144 H 235 H (70-110) mg/dL Fluid Appearance (Clear) 02/22/25 Range/Units 06:24 WBC (4.50-10.00) 10*3/uL RBC (4.10-5.20) 10*6/uL Hgb (12.0-15.0) g/dL Hct (37.2-46.3) % MCV (80.0-97.0) fL MCHC (32.0-37.0) g/dL BUN (7-17) mg/dL Creatinine (0.52-1.04) mg/dL Glucose (74-99) mg/dL POC Glucose (mg/dL) 148 H (70-110) mg/dL Fluid Appearance (Clear) Microbiology - Last 24 Hours (Table) 02/20/25 13:20 Gram Stain - Preliminary Bronchial Washings - Random 02/20/25 13:20 Acid Fast Bacilli Smear - Preliminary Bronchial Washings - Random
[2025-02-22] MEDS ORDERED: VANCOMYCIN IV PER PHARMACY 1 EACH MISC MISCELLANE PRN (14:56)
--- NOTE | 2025-02-22 14:58 | P.PN ---
Subjective Progress Note Date: 02/22/25 This is a 79-year-old female patient was being seen in consultation for shortness of breath. The patient has a large number of medical problems and comorbidities. She was in the hospital in December 2024 and she was discharged home on 01/18/2025 after being treated for an acute on chronic respiratory failur e due to COPD/asthma exacerbation and purulent tracheobronchitis. She is known to have CAD, CHF with impaired LV function with an ejection fraction of 30 to 35% and she has chronic atrial fibrillation. Following her discharge, the patient came into the emergency department on 01/21/2025 with abdominal pain and at that time, CAT scan of the abdomen and pelvis showed a large interpretation versus intramuscular hematoma of the right lateral abdominal wall measuring 14 x 6 x 18 cm in size. The patient accordingly was transferred to [facility] with I believe the hematoma was drained. Noted, at that time, the patient was also receiving anticoagulants with warfarin and her INR was slightly above therapeutic range. Since then, the patient has been taken off anticoagulants. The patient is coming into the hospital with worsening shortness of breath. She denies having any chest pain. The hematoma over the right lateral abdominal wall seems to be recovered and there is no active issues regarding that problem. For now, she remains in atrial fibrillation. Her chest x-ray was noted and it shows no significant airspace disease. There is cardiomegaly and pulm vessel congestion. CTA of the chest was also done and showed no evidence of any pulmonary embolism. There is a small density in the posterior right lung which is a nonspecific findings. There is also evidence of pulm vessel congestion specially in the mid and upper lobes bilaterally. The patient's white cell count currently is at 8.1 with a hemoglobin 9.8 and a platelet count of 384. Coagulation profile is within normal limits. BUN 16 with a creatinine of 0.8. Sodium is at 139 and potassium level is at 3.5. Troponins are 0.08 and 0.1 and 0.1 respectively and a proBNP level is 14,000. Procalcitonin level is at 0.2. The LFTs are essentially within normal limits. Total protein is at 6.2 with a albumin level of 3.5. The patient was given IV Lasix and currently she is on Lasix 40 mg IV push every 12 hours. She is producing excellent amount of urine output and she is feeling better while she is being diuresed. She remains on metoprolol 12.5 mg p.o. twice a day. She is on Symbicort as maintenance and D uoNeb nebulizer treatments [id number]. She is on Plavix. No anticoagulants for now. On today's evaluation 02/14/2025, the patient is being seen for a follow-up. The patient is doing well. She has diuresed adequately over the past 24 hours and the patient remains on IV Lasix. She continues to produce adequate amount of urine output. She remains on oxygen 2 L/min nasal cannula. She remains in atrial fibrillation. No chest pain. No cough or sputum production. She was restarted on Pradaxa. She remains on Symbicort and DuoNeb number of treatments [id number]. IV Lasix 40 mg every 12 hours. Rest of the medications are essentially unchanged. Aldactone was also added to her regimen. Sodium levels at 137 with a potassium level of 3.1, BUN 17 with a creatinine of 1.07 and a serum bicarbonate 30. White cell count is at 7 with a hemoglobin of 10.1. On today's evaluation of 02/15/2025, the patient is feeling better. Some limited cough. No significant sputum production. Continues to receive diuretics with IV Lasix and the patient's fluid balance is negative and remains negative over the past 24 hours. No hemoptysis. No pleurisy. No chest pain. No altered mentation. No other significant events overnight. Net fluid balance is 2 L over the past 24 hours. BUN is 18 with a creatinine of 1.5. Sodium is at 140 and a potassium level is at 3.6. No fever. No chills. No other complaints otherwise. On a separate note, the patient is still being seen by cardiology. She is on Cozaar, Lopressor and Aldactone 25 mg p.o. daily. She remains on Plavix. She remains on statins with Lipitor 40 mg p.o. daily. Rest of the home medications have been resumed. She is on Symbicort and DuoNeb nebulizer treatments [id number]. Oxygenation is stable and the patient is currently on 2 L of O2 nasal cannula with pulse ox of 94 to 98%. 02/16/2025, the patient is complaining of cough. No significant sputum production. Shortness is improved. The patient's white cell count is at 6.7 with hemoglobin 10.8. BUN is 20 with a creatinine of 1.6. Sodium levels at 134 with a potassium level of 3.4. She is on 2 L of oxygen by nasal cannula with a pulse ox of 94%. She was taken off the diuretics. She is only on Aldactone 12.5 mg p.o. daily. She is currently off Lasix. Remains on Symbicort. Remains on DuoNeb updrafts. Remains on Plavix and Pradaxa. Remains on metoprolol 25 mg p.o. twice a day. Hemodynamically stable. On 02/17/2025, the patient is being seen for a follow-up. Due to her ongoing symptoms of cough, the patient was started on IV Solu-Medrol yesterday at a dose of 40 mg every 6 hours. She was also given DuoNeb updrafts [id number] and Symbicort 2 puffs twice a day. Symptoms have essentially unchanged and the patient continues to have frequent coughing spells. No significant sputum production. No hemoptysis or pleurisy. She is awake and alert. She is communicating. Pulse ox is noted of 96% with some oxygen by nasal cannula. No reported aspiration. The white cell count 7.3 with a hemoglobin 10.9 and a platelet count of 426. Rest of electrolytes are all within normal limits. Blood sugars at 133. No other issues for now other than her ongoing coughing. No hemoptysis. The patient is seen today February 18, 2025 in follow-up on the selective care unit. She is currently sitting up in bed. Awake and alert in no acute distress. She still has a dry nonproductive cough. She is maintaining good O2 saturations in upper 90s on room air. She has been afebrile. Hemodynamically stable. Sputum culture pending. White count 11.0. Hemoglobin 10.2. Platelets 404. Sodium 132. Potassium 4.4. Bicarb 23. BUN 25. Creatinine 1.17. Glucose 135. She remains on Symbicort, albuterol, Solu-Medrol and Singulair. S he is on Robitussin and Tessalon Perles for her cough. The patient is seen today February 19, 2025 in follow-up on the selective care unit. She continues to have issues with cough and congestion. Not much improvement. She is maintaining O2 saturations in the 90s on 2 L/min per nasal cannula. Her cough is productive with thick yellow sputum. Sputum culture revealed no growth. Chest x-ray showing mild cardiomegaly and interstitial changes. Pulmonary vascular congestion. Slight improvement. White count 11.4. Hemoglobin 10.6. Platelets 358. Sodium 137. Potassium 4.1. Bicarb 26. BUN 27. Creatinine 1.09. Glucose 136. She remains on DuoNeb inhalations, Symbicort, IV Solu-Medrol. She is also on Singulair, Robitussin, Tessalon Perles The patient is seen today February 20, 2025 and follow-up on the selective care unit. She is sitting up in bed. Awake and alert in no acute distress. Continues with persistent currently dry cough. Maintaining O2 saturations up to 100% on 2 L/min per nasal cannula. Sputum culture revealed no growth. White count 16.4. Hemoglobin 10.7. Platelets 347. Sodium 136. Potassium 4.2. Bicarb 24. BUN 34. Creatinine 1.10. Glucose 128. She remains on Tessalon Perles and Robitussin as needed. Continued on DuoNeb inhalations, Symbicort, Solu-Medrol. Empiric antibiotics in the form of doxycycline. The patient is seen today February 21, 2025 in follow-up on the selective care unit. She is awake and alert in no acute distress. Sitting up in bed. Maintaining O2 saturations in the 90s on 2 L/min per nasal cannula. She is still not feeling much better. She did undergo bronchoscopy with BAL with many thick secretions removed. She is still somewhat bronchospastic and wheezing. Still with a cough. She remains on DuoNeb inhalations, Symbicort, Solu-Medrol at 60 mg every 6 hours. She is continued on Tessalon Perles and Robitussin. Continued on doxycycline. Initiated on Diflucan yesterday with yeast to be invisible during the procedure. Continues on diuretics. White count 15.2. Hemoglobin 10.7. Platelets 307. Sodium 137. Potassium 4.3. Bicarb 25. BUN 33. Creatinine 1.14. Glucose 119. The patient is seen today February 22, 2025 in follow-up on the selective care unit. She is currently resting in bed. Awake and alert in no acute distress. She is still having issues with shortness of breath. She is maintaining O2 saturations up to 100% on 3 L/min per nasal cannula. She has been afebrile. Hemodynamically stable. Bronchoscopy wash findings are showing presumptive Staph aureus, Jigna albicans. White count 10.0. Hemoglobin 11.0. Platelets 256. Sodium 139. Potassium 3.8. Bicarb 29. BUN 43. Creatinine 1.32. G lucose 150. She remains on Diflucan. Will add nystatin swish and swallow. Continued on DuoNeb and elations, Symbicort, Solu-Medrol. Remains on diuretics. Remains on doxycycline. Objective - Vital Signs Vital signs: Vital Signs Temp 97.4 F L 02/22/25 08:16 Pulse 90 02/22/25 12:27 Resp 16 02/22/25 11:08 BP 132/79 02/22/25 11:08 Pulse Ox 100 02/22/25 12:21 FiO2 Intake & Output 02/21/25 02/22/25 02/22/25 18:59 06:59 18:59 Intake Total 360 360 Output Total 500 Balance 360 -140 Weight 77.9 kg Intake: Oral 360 360 Output: Urine 500 Other: Voiding Method External Catheter External Catheter Toilet External Catheter - Exam GENERAL EXAM: Alert, weak 79-year-old female, resting in bed, on 3 L nasal cannula, in no apparent distress. HEAD: Normocephalic. EYES: Normal reaction of pupils, equal size. NOSE: Clear with pink turbinates. THROAT: Oral candidiasis noted. NECK: No masses, no JVD. CHEST: No chest wall deformity. LUNGS: Equal air entry with few crackles in the bilateral bases. CVS: S1 and S2 normal with no audible murmur, irregular rhythm. ABDOMEN: Soft hematoma. No hepatosplenomegaly, normal bowel sounds, no guarding or rigidity. SPINE: No scoliosis or deformity SKIN: No rashes CENTRAL NERVOUS SYSTEM: No focal deficits, tone is normal in all 4 extremities. EXTREMITIES: There is no peripheral edema. No clubbing, no cyanosis. Peripheral pulses are intact. - Labs CBC & Chem 7: 02/22/25 05:50 02/22/25 05:50 Labs: Abnormal Lab Results - Last 24 Hours (Table) 02/20/25 02/21/25 02/21/25 Range/Units 13:20 16:15 19:56 WBC (4.50-10.00) 10*3/uL RBC (4.10-5.20) 10*6/uL Hgb (12.0-15.0) g/dL Hct (37.2-46.3) % MCV (80.0-97.0) fL MCHC (32.0-37.0) g/dL Immature Gran # (0.00-0.04) 10*3/uL Neutrophils # (1.80-7.70) 10*3/uL Lymphocytes # (0.90-5.00) 10*3/uL Eosinophils # (0.04-0.35) 10*3/uL BUN (7-17) mg/dL Creatinine (0.52-1.04) mg/dL Glucose (74-99) mg/dL POC Glucose (mg/dL) 144 H 235 H (70-110) mg/dL Fluid Appearance Turbid A (Clear) 02/22/25 02/22/25 02/22/25 Range/Units 05:50 05:50 06:24 WBC 10.02 H (4.50-10.00) 10*3/uL RBC 3.48 L (4.10-5.20) 10*6/uL Hgb 11.0 L (12.0-15.0) g/dL Hct 34.8 L (37.2-46.3) % MCV 100.0 H (80.0-97.0) fL MCHC 31.6 L (32.0-37.0) g/dL Immature Gran # 0.45 H (0.00-0.04) 10*3/uL Neutrophils # 8.30 H (1.80-7.70) 10*3/uL Lymphocytes # 0.56 L (0.90-5.00) 10*3/uL Eosinophils # 0.00 L (0.04-0.35) 10*3/uL BUN 43 H (7-17) mg/dL Creatinine 1.32 H (0.52-1.04) mg/dL Glucose 150 H (74-99) mg/dL POC Glucose (mg/dL) 148 H (70-110) mg/dL Fluid Appearance (Clear) 02/22/25 Range/Units 11:08 WBC (4.50-10.00) 10*3/uL RBC (4.10-5.20) 10*6/uL Hgb (12.0-15.0) g/dL Hct (37.2-46.3) % MCV (80.0-97.0) fL MCHC (32.0-37.0) g/dL Immature Gran # (0.00-0.04) 10*3/uL Neutrophils # (1.80-7.70) 10*3/uL Lymphocytes # (0.90-5.00) 10*3/uL Eosinophils # (0.04-0.35) 10*3/uL BUN (7-17) mg/dL Creatinine (0.52-1.04) mg/dL Glucose (74-99) mg/dL POC Glucose (mg/dL) 150 H (70-110) mg/dL Fluid Appearance (Clear) Microbiology - Last 24 Hours (Table) 02/20/25 13:20 Gram Stain - Preliminary Bronchial Washings - Random Bronchial Washings Culture - Preliminary Presumptive Staph aureus Jigna albicans 02/20/25 13:20 Acid Fast Bacilli Smear - Preliminary Bronchial Washings - Random Assessment and Plan Assessment: Acute on chronic shortness of breath, most likely secondary to CHF. Reviewed the CAT scan of the chest and there is increased interstitial edema the patient is responding nicely to diuretics. No evidence of any airspace disease or pneumonia. No signs of any COPD/asthma exacerbation. proBNP level is elevated above 14,000. Nonspecific elevation of the troponins. EKG showing atrial fibrillation with a controlled rate. No acute ischemic changes. Most recent echocardiogram done on 01/05/2024 in the records shows systolic heart failure and repeat echocardiogram from 10/26/2024 showed an ejection fraction of 45 to 50% and the patient also has moderate MR, moderate to severe TR, severe pulm hype rtension with a PA pressure of 68. The patient is responding to diuresis Acute hypoxic respiratory failure secondary to above Persistent cough/COPD exacerbation. Bronchoscopy with BAL performed 02/20/2025 with significant thick secretions removed. Cultures revealing Jigna albicans and presumptive Staph aureus Candidiasis, oral, initiated on Diflucan Chronic systolic heart failure Chronic pulmonary hypertension group 2/3 Valvular heart disease with moderate MR, moderate to severe TR Coronary artery disease with previous PCI and stenting of the LAD on 01/04/2024 COPD/asthma with secondary symptoms of dyspnea wheezing cough. Chronic atrial fibrillation Right lateral abdominal wall hematoma post drainage and the patient is currently off anticoagulants Hypertension Hyperlipidemia Previous history of CVA/TIA Previous history of GI bleed History of nephrolithiasis History of melanoma, resected History of diverticulosis History of rheumatoid arthritis, currently inactive and stable Plan: The patient was seen and evaluated Microbiology, labs and medications reviewed Most culture showing presumptive Staph aureus Also revealing Jigna albicans Continue Diflucan Add nystatin swish and swallow Discontinue doxycycline Initiate vancomycin, pharmacy to dose Continue bronchodilators, Solu-Medrol, Singulair Continue Robitussin/Tessalon perles Titrate down the FiO2 as tolerated We will continue to follow I have personally seen and examined the patient, performed the documentation and the assessment and plan as written. Number of minutes spent on the visit: 10 Dictation was produced using [employer] dictation software. Please excuse any grammatical, word or spelling errors.
[2025-02-22] MEDS: VANCOMYCIN 1,500 MG in SODIUM CHLORIDE 0.9% 500 ML 500 ML IVPB SCH (16:04)
[2025-02-22 16:10] LABS: Glucose,Whole Blood 169 mg/dL (70-110)
--- NOTE | 2025-02-22 17:17 | P.PN ---
Subjective Patient is seen for follow-up for acute kidney injury. Serum creatinine slightly increased to 1.3 today. Currently not on IV fluids or diuretics. Patient reports good urine output Cough seems to be slightly better today after bronchoscopy and bronchoalveolar lavage Objective - Vital Signs Vital signs: Vital Signs Temp 97.4 F L 02/22/25 08:16 Pulse 90 02/22/25 16:52 Resp 17 02/22/25 15:26 BP 133/68 02/22/25 15:26 Pulse Ox 98 02/22/25 15:26 FiO2 Intake & Output 02/21/25 02/22/25 02/22/25 18:59 06:59 18:59 Intake Total 360 360 Output Total 500 Balance 360 -140 Weight 77.9 kg Intake: Oral 360 360 Output: Urine 500 Other: Voiding Method External Catheter External Catheter Toilet External Catheter - Exam Patient is awake, comfortable, no acute distress Alert and oriented x 3 Examination of the lungs bilateral breath sounds are heard, bilateral wheezing Abdomen soft obese, tenderness noted Examination of lower extremities shows no significant edema [employer] exam grossly intact - Labs CBC & Chem 7: 02/22/25 05:50 02/22/25 05:50 Labs: Abnormal Lab Results - Last 24 Hours (Table) 02/21/25 02/22/25 02/22/25 Range/Units 19:56 05:50 05:50 WBC 10.02 H (4.50-10.00) 10*3/uL RBC 3.48 L (4.10-5.20) 10*6/uL Hgb 11.0 L (12.0-15.0) g/dL Hct 34.8 L (37.2-46.3) % MCV 100.0 H (80.0-97.0) fL MCHC 31.6 L (32.0-37.0) g/dL Immature Gran # 0.45 H (0.00-0.04) 10*3/uL Neutrophils # 8.30 H (1.80-7.70) 10*3/uL Lymphocytes # 0.56 L (0.90-5.00) 10*3/uL Eosinophils # 0.00 L (0.04-0.35) 10*3/uL BUN 43 H (7-17) mg/dL Creatinine 1.32 H (0.52-1.04) mg/dL Glucose 150 H (74-99) mg/dL POC Glucose (mg/dL) 235 H (70-110) mg/dL 02/22/25 02/22/25 02/22/25 Range/Units 06:24 11:08 16:07 WBC (4.50-10.00) 10*3/uL RBC (4.10-5.20) 10*6/uL Hgb (12.0-15.0) g/dL Hct (37.2-46.3) % MCV (80.0-97.0) fL MCHC (32.0-37.0) g/dL Immature Gran # (0.00-0.04) 10*3/uL Neutrophils # (1.80-7.70) 10*3/uL Lymphocytes # (0.90-5.00) 10*3/uL Eosinophils # (0.04-0.35) 10*3/uL BUN (7-17) mg/dL Creatinine (0.52-1.04) mg/dL Glucose (74-99) mg/dL POC Glucose (mg/dL) 148 H 150 H 169 H (70-110) mg/dL Microbiology - Last 24 Hours (Table) 02/20/25 13:20 Gram Stain - Preliminary Bronchial Washings - Random Bronchial Washings Culture - Preliminary Presumptive Staph aureus Jigna albicans 02/20/25 13:20 Acid Fast Bacilli Smear - Preliminary Bronchial Washings - Random Assessment and Plan Assessment: 1. Acute kidney injury, ATN secondary to hypotension in the setting of use of angiotensin receptor blockers and recent diuresis. Nonoliguric. Improved. Serum creatinine slightly higher today. 2. Chronic kidney disease stage IIIa with baseline creatinine around 1.0 to 1.3 mg/dL. Etiology is nephrosclerosis. Serum creatinine was 0.8 on 02/12/2025 most likely secondary to volume overload. 3. COPD maintained on home oxygen 4. CHF with decreased ejection fraction of 30 to 35%, acute exacerbation on admission, now improved post diuresis. 5. Chronic A-fib, currently off of anticoagulation due to abdominal wall h ematoma 6. Right lateral abdominal wall hematoma status post drainage 7. Acute tracheobronchitis status post bronchioloalveolar lavage and bronchoscopy on 02/20/2025 Plan: Continue off of calcitriol Consider gentle IV hydration if renal function further worsens over the weekend. Continue to hold angiotensin receptor blockers and diuretics for now. Repeat labs in a.m.
[2025-02-22 19:53] LABS: Glucose,Whole Blood 155 mg/dL (70-110)
[2025-02-23 06:01] LABS: Glucose,Whole Blood 157 mg/dL (70-110)
[2025-02-23 08:04] LABS: Basophils # (A) 0.01 10*3/uL (0.00-0.10); Basophils % (A) 0.1 %; HCT 34.1 % (37.2-46.3); Lymphocytes # (A) 0.44 10*3/uL (0.90-5.00); Lymphocytes % (A) 5.2 %; MCH 31.8 pg (27.0-32.0); MCHC 32.3 g/dL (32.0-37.0); MCV 98.6 fL (80.0-97.0); Mean Platelet Volume 10.8 fL (9.5-12.2); Monocytes # (A) 0.54 10*3/uL (0.20-1.00); Monocytes % (A) 6.4 %; Neutrophils # (A) 7.22 10*3/uL (1.80-7.70); Neutrophils % (A) 85.8 %; Platelet Count 273 10*3/uL (140-440); RBC 3.46 10*6/uL (4.10-5.20); RDW 17.3 % (11.5-14.5); WBC 8.42 10*3/uL (4.50-10.00)
[2025-02-23 08:13] LABS: African American GFR (CKD) 44 (>60 ml/min/1.73 sqM); Non-African American GFR(CKD) 38 (>60 ml/min/1.73 sqM)
[2025-02-23 11:33] LABS: Glucose,Whole Blood 145 mg/dL (70-110)
--- NOTE | 2025-02-23 11:34 | P.PN ---
Subjective Progress Note Date: 02/23/25 Hospital Course: Patient is a pleasant 79-year-old female with a past medical history of CAD status post recent stenting (01/04/24), chronic persistent atrial fibrillation, chronic systolic heart failure with previously known EF of 30 to 35%, hypertension, COPD with chronic hypoxic respiratory failure home oxygen dependent on 2 L at all times, and stage IIIb chronic kidney disease. She follows with [facility]. Dr. Bajwa and PCP Dr. Mcneal. She presented to the hospital on 02/12/2025 with a chief complaint of shortness of breath status post discharged from rehabilitation facility after undergoing interventional radiology for drainage of abdominal hematoma. Upon arrival to our facility, patient underwent evaluation in the emergency department. Vital signs upon arrival show blood pressure 129/86, heart rate 103, respiratory rate 24, temp 97.7 F, and SpO2 95% on baseline home oxygen 2 L EKG was completed showing atrial fibrillation at 106 bpm with occasional PVC. Chest x-ray revealing right lower lobe infiltrate. Labs completed and reviewed. CBC showing macrocytic anemia with hemoglobin of 9.8 and MCV of 97.4. Coagulation profile showing a subtherapeutic INR of 1.0 (as pt has been holding warfarin secondary to abdominal wall hematoma) and a low PTT of 21.2. BMP showing non-anion gap metabolic acidosis with chloride of 110, bicarb 21, and anion gap of 8. Blood glucose was 105. Calcium 9.3. Liver profile showing elevated total bili of 1.9 and AST of 37. CRP elevated at 2.8. proBNP was 14,000. Troponin was elevated at 0.081. CTA chest completed negative for pulmonary emboli showing a small density posterior right lung likely infiltrate, however unable to rule out mass recommending follow-up imaging. Troponins trended resulting at 0.081, 0.104, 0.101. Subjective: Patient seen and examined at bedside. No acute events overnight. Patient reports that shortness of breath has significantly improved compared to yesterday. Denies any fever, chills, chest pain, palpitations, nausea, vomiting, diarrhea, constipation, belly pain, lower extremity edema. Pertinent positives and negatives as discussed above, a complete review of systems was performed and all other systems are negative. Vitals: Signs Reviewed Physical Exam: General: nontoxic, no distress, appears at stated age Derm: warm, dry, intact Head: atraumatic, normocephalic, symmetric Eyes: EOMI, anicteric sclera Mouth: no lip lesion, mucus membranes moist Cardiovascular: S1 S2 reg, no murmur, rubs, or gallops Lungs: Diffuse expiratory wheezing across lung ren more prominent on the right side, no rhonchi, stridor, no use of accessory muscles Abdominal: soft, non-tender to palpataion, no appreciable organomegaly Extremities: No gross muscle atrophy, no edema Neuro: Alert, Oriented, CNII-XII grossly intact, gait normal Psych: well appearing, appropriate affect Data Received Today: Pertinent Labs: Vitals: Temperature 97.9, pulse rate 81, respiratory rate 18, blood pressure 149/90, O2 sat 100% on nasal cannula at 3 L/min Imaging: Chest x-ray on 02/21/2025 showed new multifocal right lung acute infiltrates and/or edema Assessment and Plan: COPD with chornic hypoxic respiraotry failure on NC, with acute exacerbation likely triggered by presenting CHF exacerbation Intractable nonproductive cough/bronchial asthma Acute purulent tracheobronchitis Possible candidiasis/oral thrush -Patient underwent bronchoscopy and bronchoalveolar lavage on 02/20/2025 which revealed acute purulent tracheobronchitis and possible candidiasis/oral thrush -Bronchoalveolar washing shows presumptive Staph aureus and Jigna albicans -Continue Solu-Medrol 60 mg IVP every 6 hours -Continue scheduled DuoNebs 4 times daily and every 6 hours as needed for wheezing/shortness of breath, Symbicort 160-4.5 mcg inhaler 2 puffs twice daily, and Singulair 10 mg nightly. - Continue fluconazole 200 mg daily and nystatin swish and swallow -Continue supplemental oxygen to maintain SpO2 equal to or greater than 90%. -Continue Tessalon pearls 200 mg 3 times daily and Robitussin AC 10 mL every 4 hours as needed for cough. - Discontinue doxycycline, initiate vancomycin pharmacy to dose - Monitor liver toxicity from fluconazole with morning CMP Dysphagia - Patient demonstrates oral and pharyngeal phases of the swallow that are within normal limits per speech pathology report. Recommend continuation of regular t exture diet and thin liquids. Abdominal wall hematoma -CT abdomen and pelvis showing redemonstration of right anterolateral abdominal wall intrafascial versus intramuscular hematoma, reported to be mildly decreased in size from prior exam but still measuring up to 14.8 cm. Patient did have previous hematoma in this location measuring up to 16 cm but was transferred to [place] for drainage by IR. -Consult placed interventional radiology for drainage, IR stating they are unable to do drain, recommending if drainage needed to consult general surgery. -Will continue to hold Pradaxa and encourage patient to wear abdominal binder at all times and apply ice packs to hematoma. -Monitor hemoglobin levels closely and if hemoglobin remained stable we will hold off on drainage and allow for patient time to naturally reabsorb hematoma as surgical intervention with general surgery would be of greater risk and pt declines transfer to [place] for IR. -Hemoglobin currently stable at 11.0 -Morning CBC Acute kidney injury, improved -Secondary to IV diuresis, patient developed acute kidney injury with baseline creatinine of 0.84 increasing up to 1.34. Renal function with creatinine 1.34, GFR 44. - Give 500 cc of lactated Ringer's at 75 cc an hour -Nephrology following, Dr. Woods recommending to continue to hold off angiotensin receptor blockers and diuretics for now. Acute HFrEF, last echo showing lvef of 30-35% Elevated troponins, likely type II NSTEMI secondary to above Chronic persistent atrial fibrillation Hypertension History of CAD status post stenting -Cardiology evaluated. Lasix and losartan was discontinued. Aldactone decreased to 12.5 mg daily. Cardiology clearing patient from cardiac perspective for discharge. -Telemetry monitoring -Troponins trended resulting at 0.081, 0.104, 0.101. ProBNP 14,000 -Daily weights and Close monitoring of I's and O's -Cardiac diet -Continue cardiac medication regimen with Plavix 75 mg daily, atorvastatin 40 mg nightly, Aldactone 12.5 mg daily and metoprolol 25 mg twice daily. Hypokalemia. Resolved after replacement. Hypomagnesemia. Resolved after replacement. Neuropathy. Continue home lyrica 100 mg BID Major depression disorder. Continue home medication regimen with cymbalta 60 mg daily Pneumonia ruled out, procalcitonin negative. IV antibiotics discontinued. CODE STATUS: Full code DVT prophylaxis: ARI dotson and Ibrahima Discussed with: Patient and RN Anticipated discharge date: Pending clinical course Anticipated discharge place: Pending clinical course Objective - Vital Signs Vital signs: Vital Signs Temp 97.9 F 02/23/25 03:42 Pulse 81 02/23/25 04:28 Resp 18 05/03/25 03:42 BP 149/90 02/23/25 03:42 Pulse Ox 99 02/23/25 03:42 FiO2 Intake & Output 02/22/25 02/23/25 02/23/25 18:59 06:59 18:59 Intake Total 600 Output Total 500 Balance 100 Weight 76.7 kg Intake: Oral 600 Output: Urine 500 Other: Voiding Method Toilet External Catheter External Catheter - Labs CBC & Chem 7: 02/23/25 07:06 02/23/25 07:06 Labs: Abnormal Lab Results - Last 24 Hours (Table) 02/22/25 02/22/25 02/22/25 Range/Units 11:08 16:07 19:51 POC Glucose (mg/dL) 150 H 169 H 155 H (70-110) mg/dL 02/23/25 Range/Units 06:00 POC Glucose (mg/dL) 157 H (70-110) mg/dL Microbiology - Last 24 Hours (Table) 02/20/25 13:20 Gram Stain - Preliminary Bronchial Washings - Random Bronchial Washings Culture - Preliminary Presumptive Staph aureus Jigna albicans 02/20/25 13:20 Acid Fast Bacilli Smear - Preliminary Bronchial Washings - Random
[2025-02-23] MEDS: LACTATED RINGERS 500 ML IV ONE (11:54)
[2025-02-23] MEDS: LIDOCAINE 4% PATCH TOPICAL SCH (12:49)
--- NOTE | 2025-02-23 14:10 | P.PN ---
Subjective Progress Note Date: 02/23/25 Principal diagnosis: Acute hypoxic respiratory failure secondary to congestive heart failure, and Staph aureus pneumonia This is a 79-year-old female patient was being seen in consultation for shortness of breath. The patient has a large number of medical problems and comorbidities. She was in the hospital in December 2024 and she was discharged home on 01/18/2025 after being treated for an acute on chronic respiratory failure due to COPD/asthma exacerbation and purulent tracheobronchitis. She is known to have CAD, CHF with impaired LV function with an ejection fraction of 30 to 35% and she has chronic atrial fibrillation. Following her discharge, the patient came into the emergency department on 01/21/2025 with abdominal pain and at that time, CAT scan of the abdomen and pelvis showed a large interpretation versus intramuscular hematoma of the right lateral abdominal wall measuring 14 x 6 x 18 cm in size. The patient accordingly was transferred to [facility] with I believe the hematoma was drained. Noted, at that time, the patient was also receiving anticoagulants with warfarin and her INR was slightly above therapeutic range. Since then, the patient has been taken off anticoagulants. The patient is coming into the hospital with worsening shortness of breath. She denies having any chest pain. The hematoma over the right lateral abdominal wall seems to be recovered and there is no active issues regarding that problem. For now, she remains in atrial fibrillation. Her chest x-ray was noted and it shows no significant airspace disease. There is cardiomegaly and pulm vessel congestion. CTA of the chest was also done and showed no evidence of any pulmonary embolism. There is a small density in the posterior right lung which is a nonspecific findings. There is also evidence of pulm vessel congestion specially in the mid and upper lobes bilaterally. The patient's white cell count currently is at 8.1 with a hemoglobin 9.8 and a platelet count of 384. Coagulation profile is within normal limits. BUN 16 with a creatinine of 0.8. Sodium is at 139 and potassium level is at 3.5. Troponins are 0.08 and 0.1 and 0.1 respectively and a proBNP level is 14,000. Procalcitonin level is at 0.2. The LFTs are essentially within normal limits. Total protein is at 6.2 with a albumin level of 3.5. The patient was given IV Lasix and currently she is on Lasix 40 mg IV push every 12 hours. She is producing excellent amount of urine output and she is feeling better while she is being diuresed. She remains on metoprolol 12.5 mg p.o. twice a day. She is on Symbicort as maintenance and DuoNeb nebulizer treatments [id number]. She is on Plavix. No anticoagulants for now. On today's evaluation 02/14/2025, the patient is being seen for a follow-up. The patient is doing well. She has diuresed adequately over the past 24 hours and the patient remains on IV Lasix. She continues to produce adequate amount of urine output. She remains on oxygen 2 L/min nasal cannula. She remains in atrial fibrillation. No chest pain. No cough or sputum production. She was restarted on Pradaxa. She remains on Symbicort and DuoNeb number of treatments [id number]. IV Lasix 40 mg every 12 hours. Rest of the medications are essentially unchanged. Aldactone was also added to her regimen. Sodium levels at 137 with a potassium level of 3.1, BUN 17 with a creatinine of 1.07 and a serum bicarbonate 30. White cell count is at 7 with a hemoglobin of 10.1. On today's evaluation of 02/15/2025, the patient is feeling better. Some limited cough. No significant sputum production. Continues to receive diuretics with IV Lasix and the patient's fluid balance is negative and remains negative over the past 24 hours. No hemoptysis. No pleurisy. No chest pain. No altered mentation. No other significant events overnight. Net fluid balance is 2 L over the past 24 hours. BUN is 18 with a creatinine of 1.5. Sodium is at 140 a nd a potassium level is at 3.6. No fever. No chills. No other complaints otherwise. On a separate note, the patient is still being seen by cardiology. She is on Cozaar, Lopressor and Aldactone 25 mg p.o. daily. She remains on Plavix. She remains on statins with Lipitor 40 mg p.o. daily. Rest of the home medications have been resumed. She is on Symbicort and DuoNeb nebulizer treatments [id number]. Oxygenation is stable and the patient is currently on 2 L of O2 nasal cannula with pulse ox of 94 to 98%. 02/16/2025, the patient is complaining of cough. No significant sputum produc tion. Shortness is improved. The patient's white cell count is at 6.7 with hemoglobin 10.8. BUN is 20 with a creatinine of 1.6. Sodium levels at 134 with a potassium level of 3.4. She is on 2 L of oxygen by nasal cannula with a pulse ox of 94%. She was taken off the diuretics. She is only on Aldactone 12.5 mg p.o. daily. She is currently off Lasix. Remains on Symbicort. Remains on DuoNeb updrafts. Remains on Plavix and Pradaxa. Remains on metoprolol 25 mg p.o. twice a day. Hemodynamically stable. On 02/17/2025, the patient is being seen for a follow-up. Due to her ongoing symptoms of cough, the patient was started on IV Solu-Medrol yesterday at a dose of 40 mg every 6 hours. She was also given DuoNeb updrafts [id number] and Symbicort 2 puffs twice a day. Symptoms have essentially unchanged and the patient continues to have frequent coughing spells. No significant sputum production. No hemoptysis or pleurisy. She is awake and alert. She is communicating. Pulse ox is noted of 96% with some oxygen by nasal cannula. No reported aspiration. The white cell count 7.3 with a hemoglobin 10.9 and a platelet count of 426. Rest of electrolytes are all within normal limits. Blood sugars at 133. No other issues for now other than her ongoing coughing. No hemoptysis. The patient is seen today February 18, 2025 in follow-up on the selective care unit. She is currently sitting up in bed. Awake and alert in no acute distress. She still has a dry nonproductive cough. She is maintaining good O2 saturations in upper 90s on room air. She has been afebrile. Hemodynamically stable. Sputum culture pending. White count 11.0. Hemoglobin 10.2. Platelets 404. Sodium 132. Potassium 4.4. Bicarb 23. BUN 25. Creatinine 1.17. Glucose 135. She remains on Symbicort, albuterol, Solu-Medrol and Singulair. She is on Robitussin and Tessalon Perles for her cough. The patient is seen today February 19, 2025 in follow-up on the selective care unit. She continues to have issues with cough and congestion. Not much improvement. She is maintaining O2 saturations in the 90s on 2 L/min per nasal cannula. Her cough is productive with thick yellow sputum. Sputum culture revealed no growth. Chest x-ray showing mild cardiomegaly and interstitial changes. Pulmonary vascular congestion. Slight improvement. White count 11.4. Hemoglobin 10.6. Platelets 358. Sodium 137. Potassium 4.1. Bicarb 26. BUN 27. Creatinine 1.09. Glucose 136. She remains on DuoNeb inhalations, Symbicort, IV Solu-Medrol. She is also on Singulair, Robitussin, Tessalon Perles The patient is seen today February 20, 2025 and follow-up on the selective care unit. She is sitting up in bed. Awake and alert in no acute distress. Continues with persistent currently dry cough. Maintaining O2 saturations up to 100% on 2 L/min per nasal cannula. Sputum culture revealed no growth. White count 16.4. Hemoglobin 10.7. Platelets 347. Sodium 136. Potassium 4.2. Bicarb 24. BUN 34. Creatinine 1.10. Glucose 128. She remains on Tessalon Perles and Robitussin as needed. Continued on DuoNeb inhalations, Symbicort, Solu-Medrol. Empiric antibiotics in the form of doxycycline. The patient is seen today February 21, 2025 in follow-up on the selective care unit. She is awake and alert in no acute distress. Sitting up in bed. Maintaining O2 saturations in the 90s on 2 L/min per nasal cannula. She is still not feeling much better. She did undergo bronchoscopy with BAL with many thick secretions removed. She is still somewhat bronchospastic and wheezing. Still with a c ough. She remains on DuoNeb inhalations, Symbicort, Solu-Medrol at 60 mg every 6 hours. She is continued on Tessalon Perles and Robitussin. Continued on doxycycline. Initiated on Diflucan yesterday with yeast to be invisible during the procedure. Continues on diuretics. White count 15.2. Hemoglobin 10.7. Platelets 307. Sodium 137. Potassium 4.3. Bicarb 25. BUN 33. Creatinine 1.14. Glucose 119. The patient is seen today February 22, 2025 in follow-up on the selective care unit. She is currently resting in bed. Awake and alert in no acute distress. She is still having issues with shortness of breath. She is maintaining O2 saturations up to 100% on 3 L/min per nasal cannula. She has been afebrile. Hemodynamically stable. Bronchoscopy wash findings are showing presumptive Staph aureus, Jigna albicans. White count 10.0. Hemoglobin 11.0. Platelets 256. Sodium 139. Potassium 3.8. Bicarb 29. BUN 43. Creatinine 1.32. Glucose 150. She remains on Diflucan. Will add nystatin swish and swallow. Continued on DuoNeb and elations, Symbicort, Solu-Medrol. Remains on diuretics. Remains on doxycycline. Patient was seen today on 02/23/2025, slight improvement, patient continues to have significant cough, but improved compared to baseline, yesterday we found out that her BAL is positive for Staph aureus and Jigna albicans, patient was placed on vancomycin, discontinue doxycycline, and she remains on Diflucan. WBC count is 8.4 hemoglobin 11.0 creatinine is 1.34, vancomycin is being dosed by pharmacy. Objective - Vital Signs Vital signs: Vital Signs Temp 97.5 F L 02/23/25 09:19 Pulse 95 02/23/25 12:51 Resp 19 02/23/25 11:41 BP 122/75 02/23/25 11:41 Pulse Ox 99 02/23/25 11:41 FiO2 Intake & Output 02/22/25 02/23/25 02/23/25 18:59 06:59 18:59 Intake Total 600 118 Output Total 500 Balance 100 118 Weight 76.7 kg Intake: Oral 600 118 Output: Urine 500 Other: Voiding Method Toilet External Catheter Toilet External Catheter External Catheter - Exam GENERAL EXAM: Alert, weak 79-year-old female, resting in bed, on 3 L nasal cannula, in no apparent distress. O2 sat is 99% HEAD: Normocephalic. EYES: Normal reaction of pupils, equal size. NOSE: Clear with pink turbinates. THROAT: Oral candidiasis noted. NECK: No masses, no JVD. CHEST: No chest wall deformity. LUNGS: Equal air entry minimal wheezing persists more so on forced expiratory maneuver CVS: S1 and S2 normal with no audible murmur, irregular rhythm. ABDOMEN: Soft hematoma. No hepatosplenomegaly, normal bowel sounds, no guarding or rigidity. SKIN: No rashes CENTRAL NERVOUS SYSTEM: No focal deficits, tone is normal in all 4 extremities. EXTREMITIES: There is no peripheral edema. No clubbing, no cyanosis. Pe ripheral pulses are intact. - Labs CBC & Chem 7: 02/23/25 07:06 02/23/25 07:06 Labs: Abnormal Lab Results - Last 24 Hours (Table) 02/20/25 02/22/25 02/22/25 Range/Units 13:20 16:07 19:51 RBC (4.10-5.20) 10*6/uL Hgb (12.0-15.0) g/dL Hct (37.2-46.3) % MCV (80.0-97.0) fL Immature Gran # (0.00-0.04) 10*3/uL Lymphocytes # (0.90-5.00) 10*3/uL Eosinophils # (0.04-0.35) 10*3/uL Creatinine (0.52-1.04) mg/dL POC Glucose (mg/dL) 169 H 155 H (70-110) mg/dL CMV DNA Qual PCR DETECTED A (Not detected) Rhinovirus (PCR) DETECTED A (Not detected) 02/23/25 02/23/25 02/23/25 Range/Units 06:00 07:06 07:06 RBC 3.46 L (4.10-5.20) 10*6/uL Hgb 11.0 L (12.0-15.0) g/dL Hct 34.1 L (37.2-46.3) % MCV 98.6 H (80.0-97.0) fL Immature Gran # 0.21 H (0.00-0.04) 10*3/uL Lymphocytes # 0.44 L (0.90-5.00) 10*3/uL Eosinophils # 0.00 L (0.04-0.35) 10*3/uL Creatinine 1.34 H (0.52-1.04) mg/dL POC Glucose (mg/dL) 157 H (70-110) mg/dL CMV DNA Qual PCR (Not detected) Rhinovirus (PCR) (Not detected) 02/23/25 Range/Units 11:31 RBC (4.10-5.20) 10*6/uL Hgb (12.0-15.0) g/dL Hct (37.2-46.3) % MCV (80.0-97.0) fL Immature Gran # (0.00-0.04) 10*3/uL Lymphocytes # (0.90-5.00) 10*3/uL Eosinophils # (0.04-0.35) 10*3/uL Creatinine (0.52-1.04) mg/dL POC Glucose (mg/dL) 145 H (70-110) mg/dL CMV DNA Qual PCR (Not detected) Rhinovirus (PCR) (Not detected) Microbiology - Last 24 Hours (Table) 02/20/25 13:20 Gram Stain - Preliminary Bronchial Washings - Random Bronchial Washings Culture - Preliminary Presumptive Staph aureus Jigna albicans Assessment and Plan Assessment: Impression: Acute on chronic shortness of breath, most likely secondary to CHF. Reviewed the CAT scan of the chest and there is increased interstitial edema the patient is responding nicely to diuretics. No evidence of any airspace disease or pneumonia. No signs of any COPD/asthma exacerbation. proBNP level is elevated above 14,000. Nonspecific elevation of the troponins. EKG showing atrial fibrillation with a controlled rate. No acute ischemic changes. Most recent echocardiogram done on 01/05/2024 in the records shows systolic heart failure and repeat echocardiogram from 10/26/2024 showed an ejection fraction of 45 to 50% and the patient also has moderate MR, moderate to severe TR, severe pulm hypertension with a PA pressure of 68. The patient is responding to diuresis Acute hypoxic respiratory failure secondary to above, cannot rule out Staph aureus pneumonia based on positive BAL Persistent cough/COPD exacerbation. Bronchoscopy with BAL performed 02/20/2025 with significant thick secretions removed. Cultures revealing Jigna albicans and presumptive Staph aureus, final identification is pending could be MSSA or MRSA in the meantime the patient is on Diflucan Candidiasis, oral, initiated on Diflucan Chronic systolic heart failure Chronic pulmonary hypertension group 2/3 Valvular heart disease with moderate MR, moderate to severe TR Coronary artery disease with previous PCI and stenting of the LAD on 01/04/2024 COPD/asthma with secondary symptoms of dyspnea wheezing cough. Chronic atrial fibrillation Right lateral abdominal wall hematoma post drainage and the patient is currently off anticoagulants Hypertension Hyperlipidemia Previous history of CVA/TIA Previous history of GI bleed History of nephrolithiasis History of melanoma, resected History of diverticulosis History of rheumatoid arthritis, currently inactive and stable Recommendation: Continue present supportive care measures Continue vancomycin Continue Diflucan Continued nystatin swish and swallow Continue diuretics Continue bronchodilators and steroids Will continue to Time with Patient: Less than 30
--- NOTE | 2025-02-23 14:30 | P.PN ---
Subjective Progress Note Date: 02/23/25 Patient is seen for follow-up for acute kidney injury. Currently on IV fluids and feeling overall better. Patient is awake, comfortable, no acute distress Alert and oriented x 3 Examination of the lungs bilateral breath sounds are heard, bilateral wheezing Abdomen soft obese, tenderness noted Examination of lower extremities shows no significant edema MANAGER PHP exam grossly intact Objective - Vital Signs Vital signs: Vital Signs Temp 97.5 F L 02/23/25 09:19 Pulse 95 02/23/25 12:51 Resp 19 02/23/25 11:41 BP 122/75 02/23/25 11:41 Pulse Ox 99 02/23/25 11:41 FiO2 Intake & Output 02/22/25 02/23/25 02/23/25 18:59 06:59 18:59 Intake Total 600 118 Output Total 500 Balance 100 118 Weight 76.7 kg Intake: Oral 600 118 Output: Urine 500 Other: Voiding Method Toilet External Catheter Toilet External Catheter External Catheter - Labs CBC & Chem 7: 02/23/25 07:06 02/23/25 07:06 Labs: Abnormal Lab Results - Last 24 Hours (Table) 02/20/25 02/22/25 02/22/25 Range/Units 13:20 16:07 19:51 RBC (4.10-5.20) 10*6/uL Hgb (12.0-15.0) g/dL Hct (37.2-46.3) % MCV (80.0-97.0) fL Immature Gran # (0.00-0.04) 10*3/uL Lymphocytes # (0.90-5.00) 10*3/uL Eosinophils # (0.04-0.35) 10*3/uL Creatinine (0.52-1.04) mg/dL POC Glucose (mg/dL) 169 H 155 H (70-110) mg/dL CMV DNA Qual PCR DETECTED A (Not detected) Rhinovirus (PCR) DETECTED A (Not detected) 02/23/25 02/23/25 02/23/25 Range/Units 06:00 07:06 07:06 RBC 3.46 L (4.10-5.20) 10*6/uL Hgb 11.0 L (12.0-15.0) g/dL Hct 34.1 L (37.2-46.3) % MCV 98.6 H (80.0-97.0) fL Immature Gran # 0.21 H (0.00-0.04) 10*3/uL Lymphocytes # 0.44 L (0.90-5.00) 10*3/uL Eosinophils # 0.00 L (0.04-0.35) 10*3/uL Creatinine 1.34 H (0.52-1.04) mg/dL POC Glucose (mg/dL) 157 H (70-110) mg/dL CMV DNA Qual PCR (Not detected) Rhinovirus (PCR) (Not detected) 02/23/25 Range/Units 11:31 RBC (4.10-5.20) 10*6/uL Hgb (12.0-15.0) g/dL Hct (37.2-46.3) % MCV (80.0-97.0) fL Immature Gran # (0.00-0.04) 10*3/uL Lymphocytes # (0.90-5.00) 10*3/uL Eosinophils # (0.04-0.35) 10*3/uL Creatinine (0.52-1.04) mg/dL POC Glucose (mg/dL) 145 H (70-110) mg/dL CMV DNA Qual PCR (Not detected) Rhinovirus (PCR) (Not detected) Microbiology - Last 24 Hours (Table) 02/20/25 13:20 Gram Stain - Preliminary Bronchial Washings - Random Bronchial Washings Culture - Preliminary Presumptive Staph aureus Jigna albicans Assessment and Plan Assessment: 1. Acute kidney injury, ATN secondary to hypotension in the setting of use of angiotensin receptor blockers and recent diuresis. Nonoliguric. Improved. Serum creatinine stable at 1.3 today. 2. Chronic kidney disease stage IIIa with baseline creatinine around 1.0 to 1.3 mg/dL. Etiology is nephrosclerosis. Serum creatinine was 0.8 on 02/12/2025 most likely secondary to volume overload. 3. COPD maintained on home oxygen 4. CHF with decreased ejection fraction of 30 to 35%, acute exacerbation on admission, now improved post diuresis. 5. Chronic A-fib, currently off of anticoagulation due to abdominal wall hematoma 6. Right lateral abdominal wall hematoma status post drainage 7. Acute tracheobronchitis status post bronchioloalveolar lavage and bronchoscopy on 02/20/2025 Plan: Continue off of calcitriol Continue gentle IV hydration Continue to hold angiotensin receptor blockers and diuretics for now. Repeat labs in a.m.
[2025-02-23 16:38] LABS: Glucose,Whole Blood 145 mg/dL (70-110)
[2025-02-23 20:09] LABS: Glucose,Whole Blood 144 mg/dL (70-110)
[2025-02-24 06:19] LABS: Glucose,Whole Blood 169 mg/dL (70-110)
[2025-02-24 08:04] LABS: Basophils # (A) 0.01 10*3/uL (0.00-0.10); Basophils % (A) 0.1 %; HCT 34.4 % (37.2-46.3); HGB 10.9 g/dL (12.0-15.0); Lymphocytes # (A) 0.43 10*3/uL (0.90-5.00); Lymphocytes % (A) 5.8 %; MCH 31.8 pg (27.0-32.0); MCHC 31.7 g/dL (32.0-37.0); MCV 100.3 fL (80.0-97.0); Mean Platelet Volume 11.1 fL (9.5-12.2); Monocytes # (A) 0.42 10*3/uL (0.20-1.00); Monocytes % (A) 5.7 %; Neutrophils # (A) 6.35 10*3/uL (1.80-7.70); Neutrophils % (A) 86.4 %; Platelet Count 261 10*3/uL (140-440); RBC 3.43 10*6/uL (4.10-5.20); RDW 17.2 % (11.5-14.5); WBC 7.36 10*3/uL (4.50-10.00)
[2025-02-24 08:16] LABS: African American GFR (CKD) 51 (>60 ml/min/1.73 sqM); Anion Gap 8 mmol/L; Blood Urea Nitrogen 37 mg/dL (7-17); Calcium 9.4 mg/dL (8.4-10.2); Carbon Dioxide 26 mmol/L (22-30); Chloride 102 mmol/L (98-107); Glucose 155 mg/dL (74-99); Magnesium 2.3 mg/dL (1.6-2.3); Non-African American GFR(CKD) 44 (>60 ml/min/1.73 sqM); Potassium 3.7 mmol/L (3.5-5.1); Sodium 136 mmol/L (137-145)
--- NOTE | 2025-02-24 08:54 | P.PN ---
Subjective Progress Note Date: 02/24/25 Hospital Course: Patient is a pleasant 79-year-old female with a past medical history of CAD status post recent stenting (01/04/24), chronic persistent atrial fibrillation, chronic systolic heart failure with previously known EF of 30 to 35%, hypertension, COPD with chronic hypoxic respiratory failure home oxygen dependent on 2 L at all times, and stage IIIb chronic kidney disease. She follows with [facility]. Dr. Bajwa and PCP Dr. Mcneal. She presented to the hospital on 02/12/2025 with a chief complaint of shortness of breath status post discharged from rehabilitation facility after undergoing interventional radiology for drainage of abdominal hematoma. Upon arrival to our facility, patient underwent evaluation in the emergency department. Vital signs upon arrival show blood pressure 129/86, heart rate 103, respiratory rate 24, temp 97.7 F, and SpO2 95% on baseline home oxygen 2 L EKG was completed showing atrial fibrillation at 106 bpm with occasional PVC. Chest x-ray revealing right lower lobe infiltrate. Labs completed and reviewed. CBC showing macrocytic anemia with hemoglobin of 9.8 and MCV of 97.4. Coagulation profile showing a subtherapeutic INR of 1.0 (as pt has been holding warfarin secondary to abdominal wall hematoma) and a low PTT of 21.2. BMP showing non-anion gap metabolic acidosis with chloride of 110, bicarb 21, and anion gap of 8. Blood glucose was 105. Calcium 9.3. Liver profile showing elevated total bili of 1.9 and AST of 37. CRP elevated at 2.8. proBNP was 14,000. Troponin was elevated at 0.081. CTA chest completed negative for pulmonary emboli showing a small density posterior right lung likely infiltrate, however unable to rule out mass recommending follow-up imaging. Troponins trended resulting at 0.081, 0.104, 0.101. Subjective: Patient seen and examined at bedside. No acute events overnight. dypsnea improved. HEENA improved. Vitals: Signs Reviewed Gen: In NAD, non-toxic HEENT: normocephalic, atraumatic, hearing acuity is intant, mucous membranes moist CVS: perfusing all extremities well, no pitting edema, Respiratory: symmetric chest expansion, no accessory muscle use, Neuro: CN II-XII intact, no motor weakness, Psych: cooperative, euthymic mood, judgment and insight is intact Assessment and Plan: COPD with chornic hypoxic respiraotry failure on NC, with acute exacerbation likely triggered by presenting CHF exacerbation Intractable nonproductive cough/bronchial asthma Acute purulent tracheobronchitis Possible candidiasis/oral thrush -Patient underwent bronchoscopy and bronchoalveolar lavage on 02/20/2025 which revealed acute purulent tracheobronchitis and possible candidiasis/oral thrush -Bronchoalveolar washing shows presumptive Staph aureus and Jigna albicans -Continue Solu-Medrol 60 mg IVP every 6 hours -Continue scheduled DuoNebs 4 times daily and every 6 hours as needed for wheezing/shortness of breath, Symbicort 160-4.5 mcg inhaler 2 puffs twice daily, and Singulair 10 mg nightly. - Continue fluconazole 200 mg daily and nystatin swish and swallow -Continue supplemental oxygen to maintain SpO2 equal to or greater than 90%. -Continue Tessalon pearls 200 mg 3 times daily and Robitussin AC 10 mL every 4 hours as needed for cough. - Discontinue doxycycline, initiate vancomycin pharmacy to dose - Monitor liver toxicity from fluconazole with morning CMP Dysphagia - Patient demonstrates oral and pharyngeal phases of the swallow that are within normal limits per speech pathology report. Recommend continuation of regular texture diet and thin liquids. Abdominal wall hematoma -CT abdomen and pelvis showing redemonstration of right anterolateral abdominal wall intrafascial versus intramuscular hematoma, reported to be mildly decreased in size from prior exam but still measuring up to 14.8 cm. Patient did have previous hematoma in this location measuring up to 16 cm but was transferred to [place] for drainage by IR. -Consult placed interventional radiology for drainage, IR stating they are unable to do drain, recommending if drainage needed to consult general surgery. -Will continue to hold Pradaxa and encourage patient to wear abdominal binder at all times and apply ice packs to hematoma. -Monitor hemoglobin levels closely and if hemoglobin remained stable we will hold off on drainage and allow for patient time to naturally reabsorb hematoma as surgical intervention with general surgery would be of greater risk and pt declines transfer to [place] for IR. -Hemoglobin currently stable at 11.0 -Morning CBC Acute kidney injury, improved -Secondary to IV diuresis, patient developed acute kidney injury with baseline creatinine of 0.84 increasing up to 1.34. Today is 1.18 - s/p 500 cc of lactated Ringer's at 75 cc an hour, fluids per PO intake at this point -Nephrology following, continue to hold off angiotensin receptor blockers and diuretics for now. Acute HFrEF, last echo showing lvef of 30-35% Elevated troponins, likely type II NSTEMI secondary to above Chronic persistent atrial fibrillation Hypertension History of CAD status post stenting -Cardiology evaluated. Lasix and losartan was discontinued. Aldactone decreased to 12.5 mg daily. Cardiology clearing patient from cardiac perspective for discharge. -Telemetry monitoring -Troponins trended resulting at 0.081, 0.104, 0.101. ProBNP 14,000 -Daily weights and Close monitoring of I's and O's -Cardiac diet -Continue cardiac medication regimen with Plavix 75 mg daily, atorvastatin 40 mg nightly, Aldactone 12.5 mg daily and metoprolol 25 mg twice daily. Hypokalemia. Resolved after replacement. Hypomagnesemia. Resolved after replacement. Neuropathy. Continue home lyrica 100 mg BID Major depression disorder. Continue home medication regimen with cymbalta 60 mg daily Pneumonia ruled out, procalcitonin negative. IV antibiotics discontinued. CODE STATUS: Full code DVT prophylaxis: ARI dotson and Ibrahima Discussed with: Patient and RN Anticipated discharge date: Pending clinical course Anticipated discharge place: Pending clinical course Objective - Vital Signs Vital signs: Vital Signs Temp 98.4 F 02/24/25 07:44 Pulse 77 02/24/25 08:46 Resp 16 02/24/25 07:44 BP 144/85 02/24/25 07:44 Pulse Ox 97 02/24/25 08:48 FiO2 Intake & Output 02/23/25 02/24/25 02/24/25 18:59 06:59 18:59 Intake Total 118 Output Total 650 Balance 118 -650 Weight 81.9 kg Intake: Oral 118 Output: Urine 650 Other: Voiding Method Toilet External Catheter Toilet External Catheter External Catheter # Voids 1 - Labs CBC & Chem 7: 02/24/25 06:21 02/24/25 06:21 Labs: Abnormal Lab Results - Last 24 Hours (Table) 02/20/25 02/23/25 02/23/25 Range/Units 13:20 11:31 16:36 RBC (4.10-5.20) 10*6/uL Hgb (12.0-15.0) g/dL Hct (37.2-46.3) % MCV (80.0-97.0) fL MCHC (32.0-37.0) g/dL Immature Gran # (0.00-0.04) 10*3/uL Lymphocytes # (0.90-5.00) 10*3/uL Eosinophils # (0.04-0.35) 10*3/uL Sodium (137-145) mmol/L BUN (7-17) mg/dL Creatinine (0.52-1.04) mg/dL Glucose (74-99) mg/dL POC Glucose (mg/dL) 145 H 145 H (70-110) mg/dL CMV DNA Qual PCR DETECTED A (Not detected) Rhinovirus (PCR) DETECTED A (Not detected) 02/23/25 02/24/25 02/24/25 Range/Units 20:07 06:13 06:21 RBC 3.43 L (4.10-5.20) 10*6/uL Hgb 10.9 L (12.0-15.0) g/dL Hct 34.4 L (37.2-46.3) % MCV 100.3 H (80.0-97.0) fL MCHC 31.7 L (32.0-37.0) g/dL Immature Gran # 0.15 H (0.00-0.04) 10*3/uL Lymphocytes # 0.43 L (0.90-5.00) 10*3/uL Eosinophils # 0.00 L (0.04-0.35) 10*3/uL Sodium (137-145) mmol/L BUN (7-17) mg/dL Creatinine (0.52-1.04) mg/dL Glucose (74-99) mg/dL POC Glucose (mg/dL) 144 H 169 H (70-110) mg/dL CMV DNA Qual PCR (Not detected) Rhinovirus (PCR) (Not detected) 02/24/25 Range/Units 06:21 RBC (4.10-5.20) 10*6/uL Hgb (12.0-15.0) g/dL Hct (37.2-46.3) % MCV (80.0-97.0) fL MCHC (32.0-37.0) g/dL Immature Gran # (0.00-0.04) 10*3/uL Lymphocytes # (0.90-5.00) 10*3/uL Eosinophils # (0.04-0.35) 10*3/uL Sodium 136 L (137-145) mmol/L BUN 37 H (7-17) mg/dL Creatinine 1.18 H (0.52-1.04) mg/dL Glucose 155 H (74-99) mg/dL POC Glucose (mg/dL) (70-110) mg/dL CMV DNA Qual PCR (Not detected) Rhinovirus (PCR) (Not detected)
[2025-02-24 11:32] LABS: Glucose,Whole Blood 137 mg/dL (70-110)
--- NOTE | 2025-02-24 12:38 | P.PN ---
Subjective Progress Note Date: 02/24/25 Patient is seen for follow-up for acute kidney injury. Currently off IV fluids and no new complaints. Patient is awake, comfortable, no acute distress Alert and oriented x 3 Examination of the lungs bilateral breath sounds are heard Abdomen soft obese, no tenderness noted Examination of lower extremities shows no significant edema Objective - Vital Signs Vital signs: Vital Signs Temp 98.4 F 02/24/25 07:44 Pulse 78 02/24/25 08:58 Resp 16 02/24/25 07:44 BP 144/85 02/24/25 07:44 Pulse Ox 97 02/24/25 08:48 FiO2 Intake & Output 02/23/25 02/24/25 02/24/25 18:59 06:59 18:59 Intake Total 118 240 Output Total 650 Balance 118 -650 240 Weight 81.9 kg Intake: Oral 118 240 Output: Urine 650 Other: Voiding Method Toilet External Catheter Toilet External Catheter External Catheter # Voids 1 - Labs CBC & Chem 7: 02/24/25 06:21 02/24/25 06:21 Labs: Abnormal Lab Results - Last 24 Hours (Table) 02/20/25 02/23/25 02/23/25 Range/Units 13:20 11:31 16:36 RBC (4.10-5.20) 10*6/uL Hgb (12.0-15.0) g/dL Hct (37.2-46.3) % MCV (80.0-97.0) fL MCHC (32.0-37.0) g/dL Immature Gran # (0.00-0.04) 10*3/uL Lymphocytes # (0.90-5.00) 10*3/uL Eosinophils # (0.04-0.35) 10*3/uL Sodium (137-145) mmol/L BUN (7-17) mg/dL Creatinine (0.52-1.04) mg/dL Glucose (74-99) mg/dL POC Glucose (mg/dL) 145 H 145 H (70-110) mg/dL CMV DNA Qual PCR DETECTED A (Not detected) Rhinovirus (PCR) DETECTED A (Not detected) 02/23/25 02/24/25 02/24/25 Range/Units 20:07 06:13 06:21 RBC 3.43 L (4.10-5.20) 10*6/uL Hgb 10.9 L (12.0-15.0) g/dL Hct 34.4 L (37.2-46.3) % MCV 100.3 H (80.0-97.0) fL MCHC 31.7 L (32.0-37.0) g/dL Immature Gran # 0.15 H (0.00-0.04) 10*3/uL Lymphocytes # 0.43 L (0.90-5.00) 10*3/uL Eosinophils # 0.00 L (0.04-0.35) 10*3/uL Sodium (137-145) mmol/L BUN (7-17) mg/dL Creatinine (0.52-1.04) mg/dL Glucose (74-99) mg/dL POC Glucose (mg/dL) 144 H 169 H (70-110) mg/dL CMV DNA Qual PCR (Not detected) Rhinovirus (PCR) (Not detected) 02/24/25 Range/Units 06:21 RBC (4.10-5.20) 10*6/uL Hgb (12.0-15.0) g/dL Hct (37.2-46.3) % MCV (80.0-97.0) fL MCHC (32.0-37.0) g/dL Immature Gran # (0.00-0.04) 10*3/uL Lymphocytes # (0.90-5.00) 10*3/uL Eosinophils # (0.04-0.35) 10*3/uL Sodium 136 L (137-145) mmol/L BUN 37 H (7-17) mg/dL Creatinine 1.18 H (0.52-1.04) mg/dL Glucose 155 H (74-99) mg/dL POC Glucose (mg/dL) (70-110) mg/dL CMV DNA Qual PCR (Not detected) Rhinovirus (PCR) (Not detected) Assessment and Plan Assessment: 1. Acute kidney injury, ATN secondary to hypotension in the setting of use of angiotensin receptor blockers and recent diuresis. Nonoliguric. Improved. Serum creatinine stable at 1.2 which is baseline. 2. Chronic kidney disease stage IIIa with baseline creatinine around 1.0-1.3 mg/dL. Etiology is nephrosclerosis. Serum creatinine was 0.8 on 02/12/2025 most likely secondary to volume overload. 3. COPD maintained on home oxygen 4. CHF with decreased ejection fraction of 30 to 35%, acute exacerbation on a dmission, now improved post diuresis. 5. Chronic A-fib, currently off of anticoagulation due to abdominal wall hematoma 6. Right lateral abdominal wall hematoma status post drainage 7. Acute tracheobronchitis status post bronchioloalveolar lavage and bronchoscopy on 02/20/2025 Plan: Continue off of calcitriol IVF discontinued Ok to resume ARB and diuretics at discharge. Clear for discharge
--- NOTE | 2025-02-24 14:00 | P.PN ---
Subjective Progress Note Date: 02/24/25 This is a 79-year-old female patient was being seen in consultation for shortness of breath. The patient has a large number of medical problems and comorbidities. She was in the hospital in December 2024 and she was discharged home on 01/18/2025 after being treated for an acute on chronic respiratory failur e due to COPD/asthma exacerbation and purulent tracheobronchitis. She is known to have CAD, CHF with impaired LV function with an ejection fraction of 30 to 35% and she has chronic atrial fibrillation. Following her discharge, the patient came into the emergency department on 01/21/2025 with abdominal pain and at that time, CAT scan of the abdomen and pelvis showed a large interpretation versus intramuscular hematoma of the right lateral abdominal wall measuring 14 x 6 x 18 cm in size. The patient accordingly was transferred to [facility] with I believe the hematoma was drained. Noted, at that time, the patient was also receiving anticoagulants with warfarin and her INR was slightly above therapeutic range. Since then, the patient has been taken off anticoagulants. The patient is coming into the hospital with worsening shortness of breath. She denies having any chest pain. The hematoma over the right lateral abdominal wall seems to be recovered and there is no active issues regarding that problem. For now, she remains in atrial fibrillation. Her chest x-ray was noted and it shows no significant airspace disease. There is cardiomegaly and pulm vessel congestion. CTA of the chest was also done and showed no evidence of any pulmonary embolism. There is a small density in the posterior right lung which is a nonspecific findings. There is also evidence of pulm vessel congestion specially in the mid and upper lobes bilaterally. The patient's white cell count currently is at 8.1 with a hemoglobin 9.8 and a platelet count of 384. Coagulation profile is within normal limits. BUN 16 with a creatinine of 0.8. Sodium is at 139 and potassium level is at 3.5. Troponins are 0.08 and 0.1 and 0.1 respectively and a proBNP level is 14,000. Procalcitonin level is at 0.2. The LFTs are essentially within normal limits. Total protein is at 6.2 with a albumin level of 3.5. The patient was given IV Lasix and currently she is on Lasix 40 mg IV push every 12 hours. She is producing excellent amount of urine output and she is feeling better while she is being diuresed. She remains on metoprolol 12.5 mg p.o. twice a day. She is on Symbicort as maintenance and D uoNeb nebulizer treatments [id number]. She is on Plavix. No anticoagulants for now. On today's evaluation 02/14/2025, the patient is being seen for a follow-up. The patient is doing well. She has diuresed adequately over the past 24 hours and the patient remains on IV Lasix. She continues to produce adequate amount of urine output. She remains on oxygen 2 L/min nasal cannula. She remains in atrial fibrillation. No chest pain. No cough or sputum production. She was restarted on Pradaxa. She remains on Symbicort and DuoNeb number of treatments [id number]. IV Lasix 40 mg every 12 hours. Rest of the medications are essentially unchanged. Aldactone was also added to her regimen. Sodium levels at 137 with a potassium level of 3.1, BUN 17 with a creatinine of 1.07 and a serum bicarbonate 30. White cell count is at 7 with a hemoglobin of 10.1. On today's evaluation of 02/15/2025, the patient is feeling better. Some limited cough. No significant sputum production. Continues to receive diuretics with IV Lasix and the patient's fluid balance is negative and remains negative over the past 24 hours. No hemoptysis. No pleurisy. No chest pain. No altered mentation. No other significant events overnight. Net fluid balance is 2 L over the past 24 hours. BUN is 18 with a creatinine of 1.5. Sodium is at 140 and a potassium level is at 3.6. No fever. No chills. No other complaints otherwise. On a separate note, the patient is still being seen by cardiology. She is on Cozaar, Lopressor and Aldactone 25 mg p.o. daily. She remains on Plavix. She remains on statins with Lipitor 40 mg p.o. daily. Rest of the home medications have been resumed. She is on Symbicort and DuoNeb nebulizer treatments [id number]. Oxygenation is stable and the patient is currently on 2 L of O2 nasal cannula with pulse ox of 94 to 98%. 02/16/2025, the patient is complaining of cough. No significant sputum production. Shortness is improved. The patient's white cell count is at 6.7 with hemoglobin 10.8. BUN is 20 with a creatinine of 1.6. Sodium levels at 134 with a potassium level of 3.4. She is on 2 L of oxygen by nasal cannula with a pulse ox of 94%. She was taken off the diuretics. She is only on Aldactone 12.5 mg p.o. daily. She is currently off Lasix. Remains on Symbicort. Remains on DuoNeb updrafts. Remains on Plavix and Pradaxa. Remains on metoprolol 25 mg p.o. twice a day. Hemodynamically stable. On 02/17/2025, the patient is being seen for a follow-up. Due to her ongoing symptoms of cough, the patient was started on IV Solu-Medrol yesterday at a dose of 40 mg every 6 hours. She was also given DuoNeb updrafts [id number] and Symbicort 2 puffs twice a day. Symptoms have essentially unchanged and the patient continues to have frequent coughing spells. No significant sputum production. No hemoptysis or pleurisy. She is awake and alert. She is communicating. Pulse ox is noted of 96% with some oxygen by nasal cannula. No reported aspiration. The white cell count 7.3 with a hemoglobin 10.9 and a platelet count of 426. Rest of electrolytes are all within normal limits. Blood sugars at 133. No other issues for now other than her ongoing coughing. No hemoptysis. The patient is seen today February 18, 2025 in follow-up on the selective care unit. She is currently sitting up in bed. Awake and alert in no acute distress. She still has a dry nonproductive cough. She is maintaining good O2 saturations in upper 90s on room air. She has been afebrile. Hemodynamically stable. Sputum culture pending. White count 11.0. Hemoglobin 10.2. Platelets 404. Sodium 132. Potassium 4.4. Bicarb 23. BUN 25. Creatinine 1.17. Glucose 135. She remains on Symbicort, albuterol, Solu-Medrol and Singulair. S he is on Robitussin and Tessalon Perles for her cough. The patient is seen today February 19, 2025 in follow-up on the selective care unit. She continues to have issues with cough and congestion. Not much improvement. She is maintaining O2 saturations in the 90s on 2 L/min per nasal cannula. Her cough is productive with thick yellow sputum. Sputum culture revealed no growth. Chest x-ray showing mild cardiomegaly and interstitial changes. Pulmonary vascular congestion. Slight improvement. White count 11.4. Hemoglobin 10.6. Platelets 358. Sodium 137. Potassium 4.1. Bicarb 26. BUN 27. Creatinine 1.09. Glucose 136. She remains on DuoNeb inhalations, Symbicort, IV Solu-Medrol. She is also on Singulair, Robitussin, Tessalon Perles The patient is seen today February 20, 2025 and follow-up on the selective care unit. She is sitting up in bed. Awake and alert in no acute distress. Continues with persistent currently dry cough. Maintaining O2 saturations up to 100% on 2 L/min per nasal cannula. Sputum culture revealed no growth. White count 16.4. Hemoglobin 10.7. Platelets 347. Sodium 136. Potassium 4.2. Bicarb 24. BUN 34. Creatinine 1.10. Glucose 128. She remains on Tessalon Perles and Robitussin as needed. Continued on DuoNeb inhalations, Symbicort, Solu-Medrol. Empiric antibiotics in the form of doxycycline. The patient is seen today February 21, 2025 in follow-up on the selective care unit. She is awake and alert in no acute distress. Sitting up in bed. Maintaining O2 saturations in the 90s on 2 L/min per nasal cannula. She is still not feeling much better. She did undergo bronchoscopy with BAL with many thick secretions removed. She is still somewhat bronchospastic and wheezing. Still with a cough. She remains on DuoNeb inhalations, Symbicort, Solu-Medrol at 60 mg every 6 hours. She is continued on Tessalon Perles and Robitussin. Continued on doxycycline. Initiated on Diflucan yesterday with yeast to be invisible during the procedure. Continues on diuretics. White count 15.2. Hemoglobin 10.7. Platelets 307. Sodium 137. Potassium 4.3. Bicarb 25. BUN 33. Creatinine 1.14. Glucose 119. The patient is seen today February 22, 2025 in follow-up on the selective care unit. She is currently resting in bed. Awake and alert in no acute distress. She is still having issues with shortness of breath. She is maintaining O2 saturations up to 100% on 3 L/min per nasal cannula. She has been afebrile. Hemodynamically stable. Bronchoscopy wash findings are showing presumptive Staph aureus, Jigna albicans. White count 10.0. Hemoglobin 11.0. Platelets 256. Sodium 139. Potassium 3.8. Bicarb 29. BUN 43. Creatinine 1.32. G lucose 150. She remains on Diflucan. Will add nystatin swish and swallow. Continued on DuoNeb and elations, Symbicort, Solu-Medrol. Remains on diuretics. Remains on doxycycline. The patient is seen today February 24, 2025 in follow-up on the selective care unit. She is sitting up in bed. Awake and alert in no acute distress. Feeling a bit better today compared to previous days. Denies any worsening shortness of breath, cough or congestion. He is maintaining O2 saturations up to 100% on 3 L/min per nasal cannula. She has been afebrile. Hemodynamically stable. Bronchial wash cultures were positive for presumptive Staph aureus and Jigna. Nasal swab positive for MSSA. White count 7.3. Hemoglobin 10.9. Platelets 261. Sodium 136. Potassium 3.7. Bicarb 26. BUN 37. Creatinine 1.18. Glucose 155. She remains on vancomycin and Diflucan. Remains on nystatin. Continued on DuoNeb inhalations, Symbicort, Solu-Medrol, Singulair. Objective - Vital Signs Vital signs: Vital Signs Temp 98.4 F 02/24/25 07:44 Pulse 84 02/24/25 12:20 Resp 16 02/24/25 11:41 BP 148/88 02/24/25 11:41 Pulse Ox 100 02/24/25 11:41 FiO2 Intake & Output 02/23/25 02/24/25 02/24/25 18:59 06:59 18:59 Intake Total 118 240 Output Total 650 Balance 118 -650 240 Weight 81.9 kg Intake: Oral 118 240 Output: Urine 650 Other: Voiding Method Toilet External Catheter Toilet External Catheter External Catheter # Voids 1 - Exam GENERAL EXAM: Alert, weak 79-year-old female, resting in bed, on 3 L nasal cannula, in no apparent distress. HEAD: Normocephalic. EYES: Normal reaction of pupils, equal size. NOSE: Clear with pink turbinates. THROAT: Oral candidiasis noted. NECK: No masses, no JVD. CHEST: No chest wall deformity. LUNGS: Equal air entry with few crackles in the bilateral bases. CVS: S1 and S2 normal with no audible murmur, irregular rhythm. ABDOMEN: Soft hematoma. No hepatosplenomegaly, normal bowel sounds, no guarding or rigidity. SPINE: No scoliosis or deformity SKIN: No rashes CENTRAL NERVOUS SYSTEM: No focal deficits, tone is normal in all 4 extremities. EXTREMITIES: There is no peripheral edema. No clubbing, no cyanosis. Peripheral pulses are intact. - Labs CBC & Chem 7: 02/24/25 06:21 02/24/25 06:21 Labs: Abnormal Lab Results - Last 24 Hours (Table) 02/23/25 02/23/25 02/24/25 Range/Units 16:36 20:07 06:13 RBC (4.10-5.20) 10*6/uL Hgb (12.0-15.0) g/dL Hct (37.2-46.3) % MCV (80.0-97.0) fL MCHC (32.0-37.0) g/dL Immature Gran # (0.00-0.04) 10*3/uL Lymphocytes # (0.90-5.00) 10*3/uL Eosinophils # (0.04-0.35) 10*3/uL Sodium (137-145) mmol/L BUN (7-17) mg/dL Creatinine (0.52-1.04) mg/dL Glucose (74-99) mg/dL POC Glucose (mg/dL) 145 H 144 H 169 H (70-110) mg/dL 02/24/25 02/24/25 02/24/25 Range/Units 06:21 06:21 11:29 RBC 3.43 L (4.10-5.20) 10*6/uL Hgb 10.9 L (12.0-15.0) g/dL Hct 34.4 L (37.2-46.3) % MCV 100.3 H (80.0-97.0) fL MCHC 31.7 L (32.0-37.0) g/dL Immature Gran # 0.15 H (0.00-0.04) 10*3/uL Lymphocytes # 0.43 L (0.90-5.00) 10*3/uL Eosinophils # 0.00 L (0.04-0.35) 10*3/uL Sodium 136 L (137-145) mmol/L BUN 37 H (7-17) mg/dL Creatinine 1.18 H (0.52-1.04) mg/dL Glucose 155 H (74-99) mg/dL POC Glucose (mg/dL) 137 H (70-110) mg/dL Microbiology - Last 24 Hours (Table) 02/22/25 17:12 Nasal Screen MRSA/MSSA - Final Nasal Swab Staphylococcus aureus,Not MRSA Assessment and Plan Assessment: Acute on chronic shortness of breath, most likely secondary to CHF. Reviewed the CAT scan of the chest and there is increased interstitial edema the patient is responding nicely to diuretics. No evidence of any airspace disease or pneumonia. No signs of any COPD/asthma exacerbation. proBNP level is elevated above 14,000. Nonspecific elevation of the troponins. EKG showing atrial fibrillation with a controlled rate. No acute ischemic changes. Most recent echocardiogram done on 01/05/2024 in the records shows systolic heart failure and repeat echocardiogram from 10/26/2024 showed an ejection fraction of 45 to 50% and the patient also has moderate MR, moderate to severe TR, severe pulm hypertension with a PA pressure of 68. The patient is responding to diuresis Acute hypoxic respiratory failure secondary to above Persistent cough/COPD exacerbation. Bronchoscopy with BAL performed 02/20/2025 with significant thick secretions removed. Cultures revealing Jigna albicans and presumptive Staph aureus Candidiasis, oral, initiated on Diflucan Chronic systolic heart failure Chronic pulmonary hypertension group 2/3 Valvular heart disease with moderate MR, moderate to severe TR Coronary artery disease with previous PCI and stenting of the LAD on 01/04/2024 COPD/asthma with secondary symptoms of dyspnea wheezing cough. Chronic atrial fibrillation Right lateral abdominal wall hematoma post drainage and the patient is currently off anticoagulants Hypertension Hyperlipidemia Previous history of CVA/TIA Previous history of GI bleed History of nephrolithiasis History of melanoma, resected History of diverticulosis History of rheumatoid arthritis, currently inactive and stable Plan: The patient was seen and evaluated Microbiology, labs and medications reviewed Bronchial wash culture showing presumptive Staph aureus Waiting final cultures Also revealing Jigna albicans Nasal swab revealing MSSA Continue Diflucan Continue nystatin swish and swallow Continue vancomycin, pharmacy to dose Continue bronchodilators, Solu-Medrol, Singulair Continue Robitussin/Tessalon perles Titrate down the FiO2 as tolerated Increase her activity as tolerated We will continue to follow I have personally seen and examined the patient, performed the documentation and the assessment and plan as written. Number of minutes spent on the visit: 10 Dictation was produced using [employer] dictation software. Please excuse any grammatical, word or spelling errors.
[2025-02-24 16:31] LABS: Glucose,Whole Blood 198 mg/dL (70-110)
[2025-02-24 20:11] LABS: Glucose,Whole Blood 135 mg/dL (70-110)
[2025-02-25 05:59] LABS: Glucose,Whole Blood 159 mg/dL (70-110)
[2025-02-25 07:00] LABS: Anion Gap 11 mmol/L; Blood Urea Nitrogen 38 mg/dL (7-17); Carbon Dioxide 24 mmol/L (22-30); Chloride 100 mmol/L (98-107); Glucose 154 mg/dL (74-99); Potassium 3.9 mmol/L (3.5-5.1); Sodium 135 mmol/L (137-145)
[2025-02-25 07:01] LABS: ALT 29 U/L (4-34); AST 27 U/L (14-36); African American GFR (CKD) 59 (>60 ml/min/1.73 sqM); Albumin 3.7 g/dL (3.5-5.0); Alkaline Phosphatase 74 U/L (38-126); Calcium 9.7 mg/dL (8.4-10.2); Non-African American GFR(CKD) 51 (>60 ml/min/1.73 sqM); Total Protein 6.1 g/dL (6.3-8.2)
[2025-02-25 07:03] LABS: HCT 34.1 % (37.2-46.3); MCH 31.8 pg (27.0-32.0); MCHC 32.3 g/dL (32.0-37.0); MCV 98.6 fL (80.0-97.0); Mean Platelet Volume 11.1 fL (9.5-12.2); Platelet Count 205 10*3/uL (140-440); RBC 3.46 10*6/uL (4.10-5.20); RDW 17.2 % (11.5-14.5); WBC 7.21 10*3/uL (4.50-10.00)
--- NOTE | 2025-02-25 07:43 | XR ---
EXAMINATION TYPE: XR chest 1V portable DATE OF EXAM: 02/25/2025 6:56 AM COMPARISON: Chest radiographs from 02/21/2025 TECHNIQUE: XR chest 1V portable Portable AP radiograph of the chest. CLINICAL INDICATION:Female, 79 years old with history of chf/pneumonia; FINDINGS: Lungs/Pleura: Similar multifocal patchy airspace opacities within the right lung. No pneumothorax. Pe rsistent interstitial bilateral prominence. No sizable pleural effusion. Heart/mediastinum: Cardiomediastinal silhouette is enlarged and stable. Musculoskeletal: No acute osseous pathology. Partial visualization of cervical fusion hardware. IMPRESSION: Redemonstration of cardiomegaly and interstitial changes. Correlate for CHF with pulmonary vascular c ongestion. Additional similar right lung infiltrates and/or edema. [facility], , 02/25/2025 7:41 AM
--- NOTE | 2025-02-25 10:24 | P.PN ---
Subjective Patient is seen in follow-up for acute kidney injury on chronic kidney disease. Renal function improved. Denies chest pain or shortness of breath. Has been voiding. Oral intake fair. Vital signs are stable. General: No acute distress. HEENT: Head exam is unremarkable. On nasal cannula. LUNGS: Scattered wheezing. HEART: Rate and Rhythm are regular. ABDOMEN: Nontender. EXTREMITITES: No edema. Objective - Vital Signs Vital signs: Vital Signs Temp 97.7 F 02/25/25 08:00 Pulse 90 02/25/25 09:12 Resp 20 02/25/25 08:00 BP 141/84 02/25/25 08:00 Pulse Ox 95 02/25/25 09:02 FiO2 Intake & Output 02/24/25 02/25/25 02/25/25 18:59 06:59 18:59 Intake Total 1138 240 Output Total 200 Balance 938 240 Weight 82.1 kg Intake: Oral 1138 240 Output: Urine 200 Other: Voiding Method Toilet Toilet Toilet External Catheter # Voids 1 1 - Labs CBC & Chem 7: 02/25/25 05:46 02/25/25 05:46 Labs: Abnormal Lab Results - Last 24 Hours (Table) 02/24/25 02/24/25 02/24/25 Range/Units 11:29 16:30 20:09 RBC (4.10-5.20) 10*6/uL Hgb (12.0-15.0) g/dL Hct (37.2-46.3) % MCV (80.0-97.0) fL Sodium (137-145) mmol/L BUN (7-17) mg/dL Glucose (74-99) mg/dL POC Glucose (mg/dL) 137 H 198 H 135 H (70-110) mg/dL Total Protein (6.3-8.2) g/dL 02/25/25 02/25/25 02/25/25 Range/Units 05:46 05:46 05:57 RBC 3.46 L (4.10-5.20) 10*6/uL Hgb 11.0 L (12.0-15.0) g/dL Hct 34.1 L (37.2-46.3) % MCV 98.6 H (80.0-97.0) fL Sodium 135 L (137-145) mmol/L BUN 38 H (7-17) mg/dL Glucose 154 H (74-99) mg/dL POC Glucose (mg/dL) 159 H (70-110) mg/dL Total Protein 6.1 L (6.3-8.2) g/dL Microbiology - Last 24 Hours (Table) 02/22/25 17:12 Nasal Screen MRSA/MSSA - Final Nasal Swab Staphylococcus aureus,Not MRSA Assessment and Plan Plan: Assessment: 1. Acute kidney injury secondary to ATN secondary to hypotension and diuresis. Renal function improved. GFR at baseline. No hydronephrosis noted on CT. 2. Chronic kidney disease stage IIIa with baseline creatinine 1-1.3 secondary to nephrosclerosis. 3. Acute tracheobronchitis status post bronchoscopy with lavage February 20, 2025. 4. Right lateral abdominal wall hematoma status post drainage. 5. Chronic systolic CHF ejection fraction of 30 to 35%. Plan: Resume Lasix. Repeat BMP and magnesium level 2 to 3 days postdischarge. Follow-up outpatient 1 week postdischarge. Avoid nephrotoxins.
--- NOTE | 2025-02-25 10:50 | P.PN ---
Subjective Progress Note Date: 02/25/25 Hospital Course: Patient is a pleasant 79-year-old female with a past medical history of CAD status post recent stenting (01/04/24), chronic persistent atrial fibrillation, chronic systolic heart failure with previously known EF of 30 to 35%, hypertension, COPD with chronic hypoxic respiratory failure home oxygen dependent on 2 L at all times, and stage IIIb chronic kidney disease. She follows with Visitor Services Coordinator. Dr. Bajwa and PCP Dr. Mcneal. She presented to the hospital on 02/12/2025 with a chief complaint of shortness of breath status post discharged from rehabilitation facility after undergoing interventional radiology for drainage of abdominal hematoma. Upon arrival to our facility, patient underwent evaluation in the emergency department. Vital signs upon arrival show blood pressure 129/86, heart rate 103, respiratory rate 24, temp 97.7 F, and SpO2 95% on baseline home oxygen 2 L EKG was completed showing atrial fibrillation at 106 bpm with occasional PVC. Chest x-ray revealing right lower lobe infiltrate. Labs completed and reviewed. CBC showing macrocytic anemia with hemoglobin of 9.8 and MCV of 97.4. Coagulation profile showing a subtherapeutic INR of 1.0 (as pt has been holding warfarin secondary to abdominal wall hematoma) and a low PTT of 21.2. BMP showing non-anion gap metabolic acidosis with chloride of 110, bicarb 21, and anion gap of 8. Blood glucose was 105. Calcium 9.3. Liver profile showing elevated total bili of 1.9 and AST of 37. CRP elevated at 2.8. proBNP was 14,000. Troponin was elevated at 0.081. CTA chest completed negative for pulmonary emboli showing a small density posterior right lung likely infiltrate, however unable to rule out mass recommending follow-up imaging. Troponins trended resulting at 0.081, 0.104, 0.101. Subjective: Patient seen and examined at bedside. No acute events overnight. Patient reports that shortness of breath has slightly improved compared to yesterday. Reports a burning sensation when patient swallows. Denies any fever, chills, chest pain, palpitations, nausea, vomiting, diarrhea, constipation, belly pain, lower extremity edema. Pertinent positives and negatives as discussed above, a complete review of systems was performed and all other systems are negative. Vitals: Signs Reviewed Physical Exam: General: nontoxic, no distress, appears at stated age Derm: warm, dry, intact Head: atraumatic, normocephalic, symmetric Eyes: EOMI, anicteric sclera Mouth: no lip lesion, mucus membranes moist Cardiovascular: S1 S2 reg, no murmur, rubs, or gallops Lungs: Diffuse expiratory wheezing across lung ren more prominent on the right side, crackles on left side of lung, no rhonchi, stridor, no use of accessory muscles Abdominal: soft, non-tender to palpataion, no appreciable organomegaly Extremities: No gross muscle atrophy, no edema Neuro: Alert, Oriented, CNII-XII grossly intact, gait normal Psych: well appearing, appropriate affect Data Received Today: Pertinent Labs: Vitals: Temperature 97.1, pulse rate 101, respiratory rate 24, blood pressure 143/99, O2 sat 97% on nasal cannula at 3 L/min Labs: WBC 7.21, hemoglobin 11, hematocrit 34.1, platelet 2 5, sodium 135, potassium 3.9, chloride 100, carbon dioxide 24, BUN 38, creatinine 1.04, glucose 154 Imaging: Chest x-ray 02/25/2025 shows redemonstration of cardiomegaly and interstitial changes. Correlate for CHF with pulmonary vascular congestion. Additional similar right lung infiltrates and/or edema. Assessment and Plan: COPD with chornic hypoxic respiraotry failure on NC, with acute exacerbation likely triggered by presenting CHF exacerbation Intractable nonproductive cough/bronchial asthma Acute purulent tracheobronchitis Possible candidiasis/oral thrush -Patient underwent bronchoscopy and bronchoalveolar lavage on 02/20/2025 which revealed acute purulent tracheobronchitis and possible candidiasis/oral thrush -Bronchoalveolar washing shows presumptive Staph aureus and Jigna albicans -Nasal swab showed MSSA -Continue Solu-Medrol 60 mg IVP every 6 hours -Continue scheduled DuoNebs 4 times daily and every 6 hours as needed for wheezing/shortness of breath, Symbicort 160-4.5 mcg inhaler 2 puffs twice daily, and Singulair 10 mg nightly. - Continue fluconazole 200 mg daily and nystatin swish and swallow -Continue supplemental oxygen to maintain SpO2 equal to or greater than 90%. -Continue Tessalon pearls 200 mg 3 times daily and Robitussin AC 10 mL every 4 hours as needed for cough. - Discontinue doxycycline, initiate vancomycin pharmacy to dose - Monitor liver toxicity from fluconazole with morning CMP Dysphagia - Patient demonstrates oral and pharyngeal phases of the swallow that are within normal limits per speech pathology report. Recommend continuation of regular texture diet and thin liquids. Abdominal wall hematoma -CT abdomen and pelvis showing redemonstration of right anterolateral abdominal wall intrafascial versus intramuscular hematoma, reported to be mildly decreased in size from prior exam but still measuring up to 14.8 cm. Patient did have previous hematoma in this location measuring up to 16 cm but was transferred to [facility] for drainage by IR. -Consult placed interventional radiology for drainage, IR stating they are unable to do drain, recommending if drainage needed to consult general surgery. -Will continue to hold Pradaxa and encourage patient to wear abdominal binder at all times and apply ice packs to hematoma. -Monitor hemoglobin levels closely and if hemoglobin remained stable we will hold off on drainage and allow for patient time to naturally reabsorb hematoma as surgical intervention with general surgery would be of greater risk and pt declines transfer to [facility] for IR. -Hemoglobin currently stable at 11.0 -Morning CBC Acute kidney injury, improved -Secondary to IV diuresis, patient developed acute kidney injury with baseline creatinine of 0.84 increasing up to 1.34. Renal function with creatinine 1.04, GFR 59 -Nephrology following, Dr. Woods recommending to continue to hold off angiotensin receptor blockers and diuretics for now. Acute HFrEF, last echo showing lvef of 30-35% Elevated troponins, likely type II NSTEMI secondary to above Chronic persistent atrial fibrillation Hypertension History of CAD status post stenting -Cardiology evaluated. Lasix and losartan was discontinued. Aldactone decreased to 12.5 mg daily. Cardiology clearing patient from cardiac perspective for discharge. -Telemetry monitoring -Troponins trended resulting at 0.081, 0.104, 0.101. ProBNP 14,000 -Daily weights and Close monitoring of I's and O's -Cardiac diet -Continue cardiac medication regimen with Plavix 75 mg daily, atorvastatin 40 mg nightly, Aldactone 12.5 mg daily and metoprolol 25 mg twice daily. Hypokalemia. Resolved after replacement. Hypomagnesemia. Resolved after replacement. Neuropathy. Continue home lyrica 100 mg BID Major depression disorder. Continue home medication regimen with cymbalta 60 mg daily Pneumonia ruled out, procalcitonin negative. IV antibiotics discontinued. CODE STATUS: Full code DVT prophylaxis: ARI dotson and SCDs Discussed with: Patient and RN Anticipated discharge date: Pending clinical course Anticipated discharge place: Pending clinical course I saw and evaluated the patient during the wooten and critical portions of this encounter, and discussed the case in detail with the resident author of this note, I agree with the Assessment and Plan, and my changes, if any, are highlighted in blue. Objective - Vital Signs Vital signs: Vital Signs Temp 97.1 F L 02/25/25 04:45 Pulse 101 H 02/25/25 04:45 Resp 24 02/25/25 04:45 BP 143/99 02/25/25 04:45 Pulse Ox 97 02/25/25 04:45 FiO2 Intake & Output 02/24/25 02/24/25 02/25/25 06:59 18:59 06:59 Intake Total 1138 Output Total 650 200 Balance -650 938 Weight 81.9 kg 82.1 kg Intake: Oral 1138 Output: Urine 650 200 Other: Voiding Method External Catheter Toilet Toilet External Catheter # Voids 1 1 1 - Labs CBC & Chem 7: 02/25/25 05:46 02/25/25 05:46 Labs: Abnormal Lab Results - Last 24 Hours (Table) 02/24/25 02/24/25 02/24/25 Range/Units 06:21 06:21 11:29 RBC 3.43 L (4.10-5.20) 10*6/uL Hgb 10.9 L (12.0-15.0) g/dL Hct 34.4 L (37.2-46.3) % MCV 100.3 H (80.0-97.0) fL MCHC 31.7 L (32.0-37.0) g/dL Immature Gran # 0.15 H (0.00-0.04) 10*3/uL Lymphocytes # 0.43 L (0.90-5.00) 10*3/uL Eosinophils # 0.00 L (0.04-0.35) 10*3/uL Sodium 136 L (137-145) mmol/L BUN 37 H (7-17) mg/dL Creatinine 1.18 H (0.52-1.04) mg/dL Glucose 155 H (74-99) mg/dL POC Glucose (mg/dL) 137 H (70-110) mg/dL 02/24/25 02/24/25 02/25/25 Range/Units 16:30 20:09 05:57 RBC (4.10-5.20) 10*6/uL Hgb (12.0-15.0) g/dL Hct (37.2-46.3) % MCV (80.0-97.0) fL MCHC (32.0-37.0) g/dL Immature Gran # (0.00-0.04) 10*3/uL Lymphocytes # (0.90-5.00) 10*3/uL Eosinophils # (0.04-0.35) 10*3/uL Sodium (137-145) mmol/L BUN (7-17) mg/dL Creatinine (0.52-1.04) mg/dL Glucose (74-99) mg/dL POC Glucose (mg/dL) 198 H 135 H 159 H (70-110) mg/dL Microbiology - Last 24 Hours (Table) 02/22/25 17:12 Nasal Screen MRSA/MSSA - Final Nasal Swab Staphylococcus aureus,Not MRSA
[2025-02-25] MEDS: FUROSEMIDE 40 MG TAB PO SCH (10:52)
[2025-02-25 11:39] LABS: Glucose,Whole Blood 130 mg/dL (70-110)
[2025-02-25] MEDS: VANCOMYCIN TROUGH DUE 1 EACH MISC MISCELLANE ONE (11:57)
--- NOTE | 2025-02-25 14:40 | P.PN ---
Subjective Progress Note Date: 02/25/25 Principal diagnosis: Congestive heart failure, COPD. This is a 79-year-old female patient was being seen in consultation for shortness of breath. The patient has a large number of medical problems and comorbidities. She was in the hospital in December 2024 and she was discharged home on 01/18/2025 after being treated for an acute on chronic respiratory failure due to COPD/asthma exacerbation and purulent tracheobronchitis. She is known to have CAD, CHF with impaired LV function with an ejection fraction of 30 to 35% and she has chronic atrial fibrillation. Following her discharge, the patient came into the emergency department on 01/21/2025 with abdominal pain and at that time, CAT scan of the abdomen and pelvis showed a large interpretation versus intramuscular hematoma of the right lateral abdominal wall measuring 14 x 6 x 18 cm in size. The patient accordingly was transferred to [facility] with I believe the hematoma was drained. Noted, at that time, the patient was also receiving anticoagulants with warfarin and her INR was slightly above therapeutic range. Since then, the patient has been taken off anticoagulants. The patient is coming into the hospital with worsening shortness of breath. She denies having any chest pain. The hematoma over the right lateral abdominal wall seems to be recovered and there is no active issues regarding that problem. For now, she remains in atrial fibrillation. Her chest x-ray was noted and it shows no significant airspace disease. There is cardiomegaly and pulm vessel congestion. CTA of the chest was also done and showed no evidence of any pulmonary embolism. There is a small density in the posterior right lung which is a nonspecific findings. There is also evidence of pulm vessel congestion specially in the mid and upper lobes bilaterally. The patient's white cell count currently is at 8.1 with a hemoglobin 9.8 and a platelet count of 384. Coagulation profile is within normal limits. BUN 16 with a creatinine of 0.8. Sodium is at 139 and potassium level is at 3.5. Troponins are 0.08 and 0.1 and 0.1 respectively and a proBNP level is 14,000. Procalcitonin level is at 0.2. The LFTs are essentially within normal limits. Total protein is at 6.2 with a albumin level of 3.5. The patient was given IV Lasix and currently she is on Lasix 40 mg IV push every 12 hours. She is producing excellent amount of urine output and she is feeling better while she is being diuresed. She remains on metoprolol 12.5 mg p.o. twice a day. She is on Symbicort as maintenance and DuoNeb nebulizer treatments [id number]. She is on Plavix. No anticoagulants for now. On today's evaluation 02/14/2025, the patient is being seen for a follow-up. The patient is doing well. She has diuresed adequately over the past 24 hours and the patient remains on IV Lasix. She continues to produce adequate amount of urine output. She remains on oxygen 2 L/min nasal cannula. She remains in atrial fibrillation. No chest pain. No cough or sputum production. She was restarted on Pradaxa. She remains on Symbicort and DuoNeb number of treatments [id number]. IV Lasix 40 mg every 12 hours. Rest of the medications are essentially unchanged. Aldactone was also added to her regimen. Sodium levels at 137 with a potassium level of 3.1, BUN 17 with a creatinine of 1.07 and a serum bicarbonate 30. White cell count is at 7 with a hemoglobin of 10.1. On today's evaluation of 02/15/2025, the patient is feeling better. Some limited cough. No significant sputum production. Continues to receive diuretics with IV Lasix and the patient's fluid balance is negative and remains negative over the past 24 hours. No hemoptysis. No pleurisy. No chest pain. No altered mentation. No other significant events overnight. Net fluid balance is 2 L over the past 24 hours. BUN is 18 with a creatinine of 1.5. Sodium is at 140 and a potassium level is at 3.6. No fever. No chills. No other complaints otherwise. On a separate note, the patient is still being seen by cardiology. She is on Cozaar, Lopressor and Aldactone 25 mg p.o. daily. She remains on Plavix. She remains on statins with Lipitor 40 mg p.o. daily. Rest of the home medications have been resumed. She is on Symbicort and DuoNeb nebulizer treatments [id number]. Oxygenation is stable and the patient is currently on 2 L of O2 nasal cannula with pulse ox of 94 to 98%. 02/16/2025, the patient is complaining of cough. No significant sputum production. Shortness is improved. The patient's white cell count is at 6.7 with hemoglobin 10.8. BUN is 20 with a creatinine of 1.6. Sodium levels at 134 with a potassium level of 3.4. She is on 2 L of oxygen by nasal cannula with a pulse ox of 94%. She was taken off the diuretics. She is only on Aldactone 12.5 mg p.o. daily. She is currently off Lasix. Remains on Symbicort. Remains on DuoNeb updrafts. Remains on Plavix and Pradaxa. Remains on metoprolol 25 mg p.o. twice a day. Hemodynamically stable. On 02/17/2025, the patient is being seen for a follow-up. Due to her ongoing symptoms of cough, the patient was started on IV Solu-Medrol yesterday at a dose of 40 mg every 6 hours. She was also given DuoNeb updrafts [id number] and Symbicort 2 puffs twice a day. Symptoms have essentially unchanged and the patient continues to have frequent coughing spells. No significant sputum production. No hemoptysis or pleurisy. She is awake and alert. She is communicating. Pulse ox is noted of 96% with some oxygen by nasal cannula. No reported aspiration. The white cell count 7.3 with a hemoglobin 10.9 and a platelet count of 426. Rest of electrolytes are all within normal limits. Blood sugars at 133. No other issues for now other than her ongoing coughing. No hemoptysis. The patient is seen today February 18, 2025 in follow-up on the selective care unit. She is currently sitting up in bed. Awake and alert in no acute distress. She still has a dry nonproductive cough. She is maintaining good O2 saturations in upper 90s on room air. She has been afebrile. Hemodynamically stable. Sputum culture pending. White count 11.0. Hemoglobin 10.2. Platelets 404. Sodium 132. Potassium 4.4. Bicarb 23. BUN 25. Creatinine 1.17. Glucose 135. She remains on Symbicort, albuterol, Solu-Medrol and Singulair. She is on Robitussin and Tessalon Perles for her cough. The patient is seen today February 19, 2025 in follow-up on the selective care unit. She continues to have issues with cough and congestion. Not much improvement. She is maintaining O2 saturations in the 90s on 2 L/min per nasal cannula. Her cough is productive with thick yellow sputum. Sputum culture revealed no growth. Chest x-ray showing mild cardiomegaly and interstitial changes. Pulmonary vascular congestion. Slight improvement. White count 11.4. Hemoglobin 10.6. Platelets 358. Sodium 137. Potassium 4.1. Bicarb 26. BUN 27. Creatinine 1.09. Glucose 136. She remains on DuoNeb inhalations, Symbicort, IV Solu-Medrol. She is also on Singulair, Robitussin, Tessalon Perles The patient is seen today February 20, 2025 and follow-up on the selective care unit. She is sitting up in bed. Awake and alert in no acute distress. Continues with persistent currently dry cough. Maintaining O2 saturations up to 100% on 2 L/min per nasal cannula. Sputum culture revealed no growth. White count 16.4. Hemoglobin 10.7. Platelets 347. Sodium 136. Potassium 4.2. Bicarb 24. BUN 34. Creatinine 1.10. Glucose 128. She remains on Tessalon Perles and Robitussin as needed. Continued on DuoNeb inhalations, Symbicort, Solu-Medrol. Empiric antibiotics in the form of doxycycline. The patient is seen today February 21, 2025 in follow-up on the selective care unit. She is awake and alert in no acute distress. Sitting up in bed. Maintaining O2 saturations in the 90s on 2 L/min per nasal cannula. She is still not feeling much better. She did undergo bronchoscopy with BAL with many thick secretions removed. She is still somewhat bronchospastic and wheezing. Still with a cough. She remains on DuoNeb inhalations, Symbicort, Solu-Medrol at 60 mg every 6 hours. She is continued on Tessalon Perles and Robitussin. Continued on doxycycline. Initiated on Diflucan yesterday with yeast to be invisible during the procedure. Continues on diuretics. White count 15.2. Hemoglobin 10.7. Platelets 307. Sodium 137. Potassium 4.3. Bicarb 25. BUN 33. Creatinine 1.14. Glucose 119. The patient is seen today February 22, 2025 in follow-up on the selective care unit. She is currently resting in bed. Awake and alert in no acute distress. She is still having issues with shortness of breath. She is maintaining O2 saturations up to 100% on 3 L/min per nasal cannula. She has been afebrile. Hemodynamically stable. Bronchoscopy wash findings are showing presumptive Staph aureus, Jigna albicans. White count 10.0. Hemoglobin 11.0. Platelets 256. Sodium 139. Potassium 3.8. Bicarb 29. BUN 43. Creatinine 1.32. Glucose 150. She remains on Diflucan. Will add nystatin swish and swallow. Continued on DuoNeb and elations, Symbicort, Solu-Medrol. Remains on diuretics. Remains on doxycycline. The patient is seen today February 24, 2025 in follow-up on the selective care unit. She is sitting up in bed. Awake and alert in no acute distress. Feeling a bit better today compared to previous days. Denies any worsening shortness of breath, cough or congestion. He is maintaining O2 saturations up to 100% on 3 L/min per nasal cannula. She has been afebrile. Hemodynamically stable. Bronchial wash cultures were positive for presumptive Staph aureus and Jigna. Nasal swab positive for MSSA. White count 7.3. Hemoglobin 10.9. Platelets 261. Sodium 136. Potassium 3.7. Bicarb 26. BUN 37. Creatinine 1.18. Glucose 155. She remains on vancomycin and Diflucan. Remains on nystatin. Continued on DuoNeb inhalations, Symbicort, Solu-Medrol, Singulair. Progress note dated February 25, 2025. The patient is seen today in room 383. Currently, the patient is on 3 L of nasal oxygen. She is not receiving any IV fluids. The bronchoscopy revealed evidence of Staph aureus. The patient continues on fluconazole, and vancomycin. She seen in the room today, she appears in no distress. She is awake and alert. She sitting up in bed. She denies any worsening shortness of breath, cough, or chest congestion. Current laboratory data includes a white count 7.2, hemoglobin 11, hematocrit 34.1, and a platelet count of 205,000. Sodium 135, potassium 3.9, chlorides 100, CO2 24, BUN 38, creatinine 1.04. Glucose is 130. Chest x-ray shows cardiomegaly, and mild CHF, with mild vascular congestion. Objective - Vital Signs Vital signs: Vital Signs Temp 96.8 F L 02/25/25 11:28 Pulse 96 02/25/25 12:43 Resp 20 02/25/25 11:28 BP 143/81 02/25/25 11:28 Pulse Ox 100 02/25/25 11:28 FiO2 Intake & Output 02/24/25 02/25/25 02/25/25 18:59 06:59 18:59 Intake Total 1138 480 Output Total 200 Balance 938 480 Weight 82.1 kg Intake: Oral 1138 480 Output: Urine 200 Other: Voiding Method Toilet Toilet Toilet External Catheter # Voids 1 1 - Exam No acute distress, oriented 3. Currently on 3 L. HEENT examination is grossly unremarkable. Mucous membranes are moist. No oral lesions. Neck supple. Full range of motion. No adenopathy thyromegaly or neck vein distention. Cardiovascular examination reveals an irregular rhythm and rate. S1-S2 normal. No S3 or S4. No discernible murmur noted. Lungs reveal bibasilar crackles. No wheezes. No rhonchi. Breath sounds are equal bilaterally. Abdomen soft bowel sounds are heard. No masses or tenderness. Extremities are intact. No cyanosis clubbing or edema. Skin is without rash or lesion. Neurologic examination is brief but nonfocal. - Labs CBC & Chem 7: 02/25/25 05:46 02/25/25 05:46 Labs: Abnormal Lab Results - Last 24 Hours (Table) 02/24/25 02/24/25 02/25/25 Range/Units 16:30 20:09 05:46 RBC 3.46 L (4.10-5.20) 10*6/uL Hgb 11.0 L (12.0-15.0) g/dL Hct 34.1 L (37.2-46.3) % MCV 98.6 H (80.0-97.0) fL Sodium (137-145) mmol/L BUN (7-17) mg/dL Glucose (74-99) mg/dL POC Glucose (mg/dL) 198 H 135 H (70-110) mg/dL Total Protein (6.3-8.2) g/dL 02/25/25 02/25/25 02/25/25 Range/Units 05:46 05:57 11:37 RBC (4.10-5.20) 10*6/uL Hgb (12.0-15.0) g/dL Hct (37.2-46.3) % MCV (80.0-97.0) fL Sodium 135 L (137-145) mmol/L BUN 38 H (7-17) mg/dL Glucose 154 H (74-99) mg/dL POC Glucose (mg/dL) 159 H 130 H (70-110) mg/dL Total Protein 6.1 L (6.3-8.2) g/dL Microbiology - Last 24 Hours (Table) 02/22/25 17:12 Nasal Screen MRSA/MSSA - Final Nasal Swab Staphylococcus aureus,Not MRSA Assessment and Plan Assessment: Acute on chronic shortness of breath, most likely secondary to CHF. Acute hypoxic respiratory failure secondary to above. Persistent cough/COPD exacerbation. Bronchoscopy with BAL performed 02/20/2025 with significant thick secretions removed. Cultures revealing Jigna albicans and presumptive Staph aureus. Candidiasis, oral, initiated on Diflucan. Chronic systolic heart failure. Chronic pulmonary hypertension group 2/3. Valvular heart disease with moderate MR, moderate to severe TR. Coronary artery disease with previous PCI and stenting of the LAD on 01/04/2024. COPD/asthma with secondary symptoms of dyspnea wheezing cough. Chronic atrial fibrillation. Right lateral abdominal wall hematoma. Hypertension. Hyperlipidemia. Previous history of CVA/TIA. Previous history of GI bleed. History of nephrolithiasis. History of melanoma, resected. History of diverticulosis. History of rheumatoid arthritis. Plan: Plan dated February 25, 2025. The patient is seen today in room 383. She is resting comfortably in bed. She is on 3 L of oxygen. She continues on fluconazole and vancomycin. Labs, x- rays, all medications are reviewed. She denies any worsening or more severe shortness of breath, cough, wheezing, chest tightness, or phlegm production. All in all, she is feeling much improved, she is resting comfortably. We will continue to follow make recommendations where appropriate. Prognosis is guarded. Dictation was produced using [employer]ar[employer] software. Please excuse any grammatical, word or spelling errors. Time with Patient: Less than 30
[2025-02-25 16:49] LABS: Glucose,Whole Blood 124 mg/dL (70-110)
[2025-02-25 20:01] LABS: Glucose,Whole Blood 166 mg/dL (70-110)
[2025-02-26 06:30] LABS: Glucose,Whole Blood 177 mg/dL (70-110)
[2025-02-26 07:12] LABS: Lymphocytes # (A) 0.55 10*3/uL (0.90-5.00); Lymphocytes % (A) 6.1 %; MCH 30.9 pg (27.0-32.0); MCHC 31.4 g/dL (32.0-37.0); MCV 98.3 fL (80.0-97.0); Mean Platelet Volume 11.3 fL (9.5-12.2); Monocytes # (A) 0.49 10*3/uL (0.20-1.00); Monocytes % (A) 5.4 %; Neutrophils # (A) 7.53 10*3/uL (1.80-7.70); Neutrophils % (A) 83.5 %; Platelet Count 174 10*3/uL (140-440); RBC 3.56 10*6/uL (4.10-5.20); RDW 17.4 % (11.5-14.5); WBC 9.02 10*3/uL (4.50-10.00)
[2025-02-26 07:28] LABS: African American GFR (CKD) 49 (>60 ml/min/1.73 sqM); Anion Gap 14 mmol/L; Blood Urea Nitrogen 50 mg/dL (7-17); Carbon Dioxide 23 mmol/L (22-30); Chloride 102 mmol/L (98-107); Glucose 141 mg/dL (74-99); Magnesium 2.4 mg/dL (1.6-2.3); Non-African American GFR(CKD) 42 (>60 ml/min/1.73 sqM); Potassium 4.2 mmol/L (3.5-5.1); Sodium 139 mmol/L (137-145)
[2025-02-26 08:45] VITALS: RESP 20
--- NOTE | 2025-02-26 09:49 | P.PN ---
Subjective Progress Note Date: 02/26/25 Hospital Course: Patient is a pleasant 79-year-old female with a past medical history of CAD status post recent stenting (01/04/24), chronic persistent atrial fibrillation, chronic systolic heart failure with previously known EF of 30 to 35%, hypertension, COPD with chronic hypoxic respiratory failure home oxygen dependent on 2 L at all times, and stage IIIb chronic kidney disease. She follows with Supervisor So[employer]. Dr. Bajwa and PCP Dr. Mcneal. She presented to the hospital on 02/12/2025 with a chief complaint of shortness of breath status post discharged from rehabilitation facility after undergoing interventional radiology for drainage of abdominal hematoma. Upon arrival to our facility, patient underwent evaluation in the emergency department. Vital signs upon arrival show blood pressure 129/86, heart rate 103, respiratory rate 24, temp 97.7 F, and SpO2 95% on baseline home oxygen 2 L EKG was completed showing atrial fibrillation at 106 bpm with occasional PVC. Chest x-ray revealing right lower lobe infiltrate. Labs completed and reviewed. CBC showing macrocytic anemia with hemoglobin of 9.8 and MCV of 97.4. Coagulation profile showing a subtherapeutic INR of 1.0 (as pt has been holding warfarin secondary to abdominal wall hematoma) and a low PTT of 21.2. BMP showing non-anion gap metabolic acidosis with chloride of 110, bicarb 21, and anion gap of 8. Blood glucose was 105. Calcium 9.3. Liver profile showing elevated total bili of 1.9 and AST of 37. CRP elevated at 2.8. proBNP was 14,000. Troponin was elevated at 0.081. CTA chest completed negative for pulmonary emboli showing a small density posterior right lung likely infiltrate, however unable to rule out mass recommending follow-up imaging. Troponins trended resulting at 0.081, 0.104, 0.101. Subjective: Patient seen and examined at bedside. No acute events overnight. Patient reports that shortness of breath has worsened today. Still coughing up sputum. Very dyspneic with exertion. Was restarted on lasix yesterday. Cr mildly increased. Pertinent positives and negatives as discussed above, a complete review of systems was performed and all other systems are negative. Vitals: Signs Reviewed Physical Exam: General: nontoxic, no distress, appears at stated age Derm: warm, dry, intact Head: atraumatic, normocephalic, symmetric Eyes: EOMI, anicteric sclera Mouth: no lip lesion, mucus membranes moist Cardiovascular: S1 S2 reg, no murmur, rubs, or gallops Lungs: Diffuse expiratory wheezing across lung ren more prominent on the right side, crackles on left side of lung, no rhonchi, stridor, no use of accessory muscles Abdominal: soft, non-tender to palpataion, no appreciable organomegaly Extremities: No gross muscle atrophy, no edema Neuro: Alert, Oriented, CNII-XII grossly intact, gait normal Psych: well appearing, appropriate affect Assessment and Plan: COPD with chronic hypoxic respiratory failure on NC, with acute exacerbation likely triggered by presenting CHF exacerbation Intractable nonproductive cough/bronchial asthma Acute purulent tracheobronchitis Possible candidiasis/oral thrush -Patient underwent bronchoscopy and bronchoalveolar lavage on 02/20/2025 which revealed acute purulent tracheobronchitis and possible candidiasis/oral thrush -Bronchoalveolar washing shows Staph aureus and Jigna albicans -Nasal swab showed MSSA -Continue Solu-Medrol 60 mg IVP every 6 hours -Continue scheduled DuoNebs 4 times daily and every 6 hours as needed for wheezing/shortness of breath, Symbicort 160-4.5 mcg inhaler 2 puffs twice daily, and Singulair 10 mg nightly. - Continue fluconazole 200 mg daily and nystatin swish and swallow -Continue supplemental oxygen to maintain SpO2 equal to or greater than 90%. -Continue Tessalon pearls 200 mg 3 times daily and Robitussin AC 10 mL every 4 hours as needed for cough. - Discontinue vancomycin, switch to cefazolin - Monitor liver toxicity from fluconazole with morning CMP Dysphagia - Patient demonstrates oral and pharyngeal phases of the swallow that are within normal limits per speech pathology report. Recommend continuation of regular texture diet and thin liquids. Abdominal wall hematoma -CT abdomen and pelvis showing redemonstration of right anterolateral abdominal wall intrafascial versus intramuscular hematoma, reported to be mildly decreased in size from prior exam but still measuring up to 14.8 cm. Patient did have previous hematoma in this location measuring up to 16 cm but was transferred to [facility] for drainage by IR. -Consult placed interventional radiology for drainage, IR stating they are unable to do drain, recommending if drainage needed to consult general surgery. -Will continue to hold Pradaxa and encourage patient to wear abdominal binder at all times and apply ice packs to hematoma. -Monitor hemoglobin levels closely and if hemoglobin remained stable we will hold off on drainage and allow for patient time to naturally reabsorb hematoma as surgical intervention with general surgery would be of greater risk and pt declines transfer to [facility] for IR. -Hemoglobin currently stable at 11.0 -Morning CBC Acute kidney injury, improved -Secondary to IV diuresis, patient developed acute kidney injury with baseline creatinine of 0.84 increasing up to 1.34. Renal function with creatinine 1.04, GFR 59 -Nephrology following, Dr. Woods recommending to continue to hold off angiotens in receptor blockers and diuretics for now. Acute HFrEF, last echo showing lvef of 30-35% Elevated troponins, likely type II NSTEMI secondary to above Chronic persistent atrial fibrillation Hypertension History of CAD status post stenting -Cardiology evaluated. Lasix and losartan was discontinued. Aldactone decreased to 12.5 mg daily. Cardiology clearing patient from cardiac perspective for discharge. -Telemetry monitoring -Troponins trended resulting at 0.081, 0.104, 0.101. ProBNP 14,000 -Daily weights and Close monitoring of I's and O's -Cardiac diet -Continue cardiac medication regimen with Plavix 75 mg daily, atorvastatin 40 mg nightly, Aldactone 12.5 mg daily and metoprolol 25 mg twice daily. Hypokalemia. Resolved after replacement. Hypomagnesemia. Resolved after replacement. Neuropathy. Continue home lyrica 100 mg BID Major depression disorder. Continue home medication regimen with cymbalta 60 mg daily Pneumonia ruled out, procalcitonin negative. IV antibiotics discontinued. CODE STATUS: Full code DVT prophylaxis: ARI dotson and SCDs Discussed with: Patient and RN Anticipated discharge date: Pending clinical course Anticipated discharge place: Pending clinical course Objective - Vital Signs Vital signs: Vital Signs Temp 96.8 F L 02/26/25 08:00 Pulse 93 02/26/25 08:00 Resp 20 02/26/25 08:00 BP 160/99 02/26/25 08:00 Pulse Ox 100 02/26/25 08:00 FiO2 Intake & Output 02/25/25 02/26/25 02/26/25 18:59 06:59 18:59 Intake Total 480 540 Balance 480 540 Weight 78.1 kg Intake: Oral 480 540 Other: Voiding Method Toilet Toilet Toilet # Voids 2 - Labs CBC & Chem 7: 02/26/25 06:51 02/26/25 06:51 Labs: Abnormal Lab Results - Last 24 Hours (Table) 02/25/25 02/25/25 02/25/25 Range/Units 11:37 16:42 20:00 RBC (4.10-5.20) 10*6/uL Hgb (12.0-15.0) g/dL Hct (37.2-46.3) % MCV (80.0-97.0) fL MCHC (32.0-37.0) g/dL Immature Gran # (0.00-0.04) 10*3/uL Lymphocytes # (0.90-5.00) 10*3/uL Eosinophils # (0.04-0.35) 10*3/uL BUN (7-17) mg/dL Creatinine (0.52-1.04) mg/dL Glucose (74-99) mg/dL POC Glucose (mg/dL) 130 H 124 H 166 H (70-110) mg/dL Magnesium (1.6-2.3) mg/dL 02/26/25 02/26/25 02/26/25 Range/Units 06:28 06:51 06:51 RBC 3.56 L (4.10-5.20) 10*6/uL Hgb 11.0 L (12.0-15.0) g/dL Hct 35.0 L (37.2-46.3) % MCV 98.3 H (80.0-97.0) fL MCHC 31.4 L (32.0-37.0) g/dL Immature Gran # 0.45 H (0.00-0.04) 10*3/uL Lymphocytes # 0.55 L (0.90-5.00) 10*3/uL Eosinophils # 0.00 L (0.04-0.35) 10*3/uL BUN 50 H (7-17) mg/dL Creatinine 1.22 H (0.52-1.04) mg/dL Glucose 141 H (74-99) mg/dL POC Glucose (mg/dL) 177 H (70-110) mg/dL Magnesium 2.4 H (1.6-2.3) mg/dL Microbiology - Last 24 Hours (Table) 02/20/25 13:20 Gram Stain - Final Bronchial Washings - Random Bronchial Washings Culture - Final Staphylococcus aureus Jigna albicans
--- NOTE | 2025-02-26 10:11 | P.PN ---
Subjective Patient is seen in follow-up for acute kidney injury on chronic kidney disease. Renal function fairly stable. Denies chest pain or shortness of breath. Has been voiding. Oral intake fair. Vital signs are stable. General: No acute distress. HEENT: Head exam is unremarkable. On nasal cannula. LUNGS: Scattered wheezing. HEART: Rate and Rhythm are regular. ABDOMEN: Nontender. EXTREMITITES: No edema. Objective - Vital Signs Vital signs: Vital Signs Temp 96.8 F L 02/26/25 08:00 Pulse 84 02/26/25 09:54 Resp 20 02/26/25 08:00 BP 160/99 02/26/25 08:00 Pulse Ox 100 02/26/25 08:00 FiO2 Intake & Output 02/25/25 02/26/25 02/26/25 18:59 06:59 18:59 Intake Total 480 540 Balance 480 540 Weight 78.1 kg Intake: Oral 480 540 Other: Voiding Method Toilet Toilet Toilet # Voids 2 - Labs CBC & Chem 7: 02/26/25 06:51 02/26/25 06:51 Labs: Abnormal Lab Results - Last 24 Hours (Table) 02/25/25 02/25/25 02/25/25 Range/Units 11:37 16:42 20:00 RBC (4.10-5.20) 10*6/uL Hgb (12.0-15.0) g/dL Hct (37.2-46.3) % MCV (80.0-97.0) fL MCHC (32.0-37.0) g/dL Immature Gran # (0.00-0.04) 10*3/uL Lymphocytes # (0.90-5.00) 10*3/uL Eosinophils # (0.04-0.35) 10*3/uL BUN (7-17) mg/dL Creatinine (0.52-1.04) mg/dL Glucose (74-99) mg/dL POC Glucose (mg/dL) 130 H 124 H 166 H (70-110) mg/dL Magnesium (1.6-2.3) mg/dL 02/26/25 02/26/25 02/26/25 Range/Units 06:28 06:51 06:51 RBC 3.56 L (4.10-5.20) 10*6/uL Hgb 11.0 L (12.0-15.0) g/dL Hct 35.0 L (37.2-46.3) % MCV 98.3 H (80.0-97.0) fL MCHC 31.4 L (32.0-37.0) g/dL Immature Gran # 0.45 H (0.00-0.04) 10*3/uL Lymphocytes # 0.55 L (0.90-5.00) 10*3/uL Eosinophils # 0.00 L (0.04-0.35) 10*3/uL BUN 50 H (7-17) mg/dL Creatinine 1.22 H (0.52-1.04) mg/dL Glucose 141 H (74-99) mg/dL POC Glucose (mg/dL) 177 H (70-110) mg/dL Magnesium 2.4 H (1.6-2.3) mg/dL Microbiology - Last 24 Hours (Table) 02/20/25 13:20 Gram Stain - Final Bronchial Washings - Random Bronchial Washings Culture - Final Staphylococcus aureus Jigna albicans Assessment and Plan Plan: Assessment: 1. Acute kidney injury secondary to ATN secondary to hypotension and diuresis. Renal function improved. GFR at baseline. No hydronephrosis noted on CT. 2. Chronic kidney disease stage IIIa with baseline creatinine 1-1.3 secondary to nephrosclerosis. 3. Acute tracheobronchitis status post bronchoscopy with lavage February 20, 2025. 4. Right lateral abdominal wall hematoma status post drainage. 5. Chronic systolic CHF ejection fraction of 30 to 35%. Plan: Maintain Lasix. Repeat BMP and magnesium level 2 to 3 days postdischarge. Follow-up outpatient 1 week postdischarge. Avoid nephrotoxins.
[2025-02-26] MEDS: ceFAZolin 2 GM in DEXTROSE 5% IN WATER 50 ML IVPB SCH (10:44)
[2025-02-26 11:57] LABS: Glucose,Whole Blood 132 mg/dL (70-110)
--- NOTE | 2025-02-26 12:04 | P.PN ---
Subjective Progress Note Date: 02/26/25 Principal diagnosis: Congestive heart failure, COPD. This is a 79-year-old female patient was being seen in consultation for shortness of breath. The patient has a large number of medical problems and comorbidities. She was in the hospital in December 2024 and she was discharged home on 01/18/2025 after being treated for an acute on chronic respiratory failure due to COPD/asthma exacerbation and purulent tracheobronchitis. She is known to have CAD, CHF with impaired LV function with an ejection fraction of 30 to 35% and she has chronic atrial fibrillation. Following her discharge, the patient came into the emergency department on 01/21/2025 with abdominal pain and at that time, CAT scan of the abdomen and pelvis showed a large interpretation versus intramuscular hematoma of the right lateral abdominal wall measuring 14 x 6 x 18 cm in size. The patient accordingly was transferred to [facility] with I believe the hematoma was drained. Noted, at that time, the patient was also receiving anticoagulants with warfarin and her INR was slightly above therapeutic range. Since then, the patient has been taken off anticoagulants. The patient is coming into the hospital with worsening shortness of breath. She denies having any chest pain. The hematoma over the right lateral abdominal wall seems to be recovered and there is no active issues regarding that problem. For now, she remains in atrial fibrillation. Her chest x-ray was noted and it shows no significant airspace disease. There is cardiomegaly and pulm vessel congestion. CTA of the chest was also done and showed no evidence of any pulmonary embolism. There is a small density in the posterior right lung which is a nonspecific findings. There is also evidence of pulm vessel congestion specially in the mid and upper lobes bilaterally. The patient's white cell count currently is at 8.1 with a hemoglobin 9.8 and a platelet count of 384. Coagulation profile is within normal limits. BUN 16 with a creatinine of 0.8. Sodium is at 139 and potassium level is at 3.5. Troponins are 0.08 and 0.1 and 0.1 respectively and a proBNP level is 14,000. Procalcitonin level is at 0.2. The LFTs are essentially within normal limits. Total protein is at 6.2 with a albumin level of 3.5. The patient was given IV Lasix and currently she is on Lasix 40 mg IV push every 12 hours. She is producing excellent amount of urine output and she is feeling better while she is being diuresed. She remains on metoprolol 12.5 mg p.o. twice a day. She is on Symbicort as maintenance and DuoNeb nebulizer treatments [id number]. She is on Plavix. No anticoagulants for now. On today's evaluation 02/14/2025, the patient is being seen for a follow-up. The patient is doing well. She has diuresed adequately over the past 24 hours and the patient remains on IV Lasix. She continues to produce adequate amount of urine output. She remains on oxygen 2 L/min nasal cannula. She remains in atrial fibrillation. No chest pain. No cough or sputum production. She was restarted on Pradaxa. She remains on Symbicort and DuoNeb number of treatments [id number]. IV Lasix 40 mg every 12 hours. Rest of the medications are essentially unchanged. Aldactone was also added to her regimen. Sodium levels at 137 with a potassium level of 3.1, BUN 17 with a creatinine of 1.07 and a serum bicarbonate 30. White cell count is at 7 with a hemoglobin of 10.1. On today's evaluation of 02/15/2025, the patient is feeling better. Some limited cough. No significant sputum production. Continues to receive diuretics with IV Lasix and the patient's fluid balance is negative and remains negative over the past 24 hours. No hemoptysis. No pleurisy. No chest pain. No altered mentation. No other significant events overnight. Net fluid balance is 2 L over the past 24 hours. BUN is 18 with a creatinine of 1.5. Sodium is at 140 and a potassium level is at 3.6. No fever. No chills. No other complaints otherwise. On a separate note, the patient is still being seen by cardiology. She is on Cozaar, Lopressor and Aldactone 25 mg p.o. daily. She remains on Plavix. She remains on statins with Lipitor 40 mg p.o. daily. Rest of the home medications have been resumed. She is on Symbicort and DuoNeb nebulizer treatments [id number]. Oxygenation is stable and the patient is currently on 2 L of O2 nasal cannula with pulse ox of 94 to 98%. 02/16/2025, the patient is complaining of cough. No significant sputum production. Shortness is improved. The patient's white cell count is at 6.7 with hemoglobin 10.8. BUN is 20 with a creatinine of 1.6. Sodium levels at 134 with a potassium level of 3.4. She is on 2 L of oxygen by nasal cannula with a pulse ox of 94%. She was taken off the diuretics. She is only on Aldactone 12.5 mg p.o. daily. She is currently off Lasix. Remains on Symbicort. Remains on DuoNeb updrafts. Remains on Plavix and Pradaxa. Remains on metoprolol 25 mg p.o. twice a day. Hemodynamically stable. On 02/17/2025, the patient is being seen for a follow-up. Due to her ongoing symptoms of cough, the patient was started on IV Solu-Medrol yesterday at a dose of 40 mg every 6 hours. She was also given DuoNeb updrafts [id number] and Symbicort 2 puffs twice a day. Symptoms have essentially unchanged and the patient continues to have frequent coughing spells. No significant sputum production. No hemoptysis or pleurisy. She is awake and alert. She is communicating. Pulse ox is noted of 96% with some oxygen by nasal cannula. No reported aspiration. The white cell count 7.3 with a hemoglobin 10.9 and a platelet count of 426. Rest of electrolytes are all within normal limits. Blood sugars at 133. No other issues for now other than her ongoing coughing. No hemoptysis. The patient is seen today February 18, 2025 in follow-up on the selective care unit. She is currently sitting up in bed. Awake and alert in no acute distress. She still has a dry nonproductive cough. She is maintaining good O2 saturations in upper 90s on room air. She has been afebrile. Hemodynamically stable. Sputum culture pending. White count 11.0. Hemoglobin 10.2. Platelets 404. Sodium 132. Potassium 4.4. Bicarb 23. BUN 25. Creatinine 1.17. Glucose 135. She remains on Symbicort, albuterol, Solu-Medrol and Singulair. She is on Robitussin and Tessalon Perles for her cough. The patient is seen today February 19, 2025 in follow-up on the selective care unit. She continues to have issues with cough and congestion. Not much improvement. She is maintaining O2 saturations in the 90s on 2 L/min per nasal cannula. Her cough is productive with thick yellow sputum. Sputum culture revealed no growth. Chest x-ray showing mild cardiomegaly and interstitial changes. Pulmonary vascular congestion. Slight improvement. White count 11.4. Hemoglobin 10.6. Platelets 358. Sodium 137. Potassium 4.1. Bicarb 26. BUN 27. Creatinine 1.09. Glucose 136. She remains on DuoNeb inhalations, Symbicort, IV Solu-Medrol. She is also on Singulair, Robitussin, Tessalon Perles The patient is seen today February 20, 2025 and follow-up on the selective care unit. She is sitting up in bed. Awake and alert in no acute distress. Continues with persistent currently dry cough. Maintaining O2 saturations up to 100% on 2 L/min per nasal cannula. Sputum culture revealed no growth. White count 16.4. Hemoglobin 10.7. Platelets 347. Sodium 136. Potassium 4.2. Bicarb 24. BUN 34. Creatinine 1.10. Glucose 128. She remains on Tessalon Perles and Robitussin as needed. Continued on DuoNeb inhalations, Symbicort, Solu-Medrol. Empiric antibiotics in the form of doxycycline. The patient is seen today February 21, 2025 in follow-up on the selective care unit. She is awake and alert in no acute distress. Sitting up in bed. Maintaining O2 saturations in the 90s on 2 L/min per nasal cannula. She is still not feeling much better. She did undergo bronchoscopy with BAL with many thick secretions removed. She is still somewhat bronchospastic and wheezing. Still with a cough. She remains on DuoNeb inhalations, Symbicort, Solu-Medrol at 60 mg every 6 hours. She is continued on Tessalon Perles and Robitussin. Continued on doxycycline. Initiated on Diflucan yesterday with yeast to be invisible during the procedure. Continues on diuretics. White count 15.2. Hemoglobin 10.7. Platelets 307. Sodium 137. Potassium 4.3. Bicarb 25. BUN 33. Creatinine 1.14. Glucose 119. The patient is seen today February 22, 2025 in follow-up on the selective care unit. She is currently resting in bed. Awake and alert in no acute distress. She is still having issues with shortness of breath. She is maintaining O2 saturations up to 100% on 3 L/min per nasal cannula. She has been afebrile. Hemodynamically stable. Bronchoscopy wash findings are showing presumptive Staph aureus, Jigna albicans. White count 10.0. Hemoglobin 11.0. Platelets 256. Sodium 139. Potassium 3.8. Bicarb 29. BUN 43. Creatinine 1.32. Glucose 150. She remains on Diflucan. Will add nystatin swish and swallow. Continued on DuoNeb and elations, Symbicort, Solu-Medrol. Remains on diuretics. Remains on doxycycline. The patient is seen today February 24, 2025 in follow-up on the selective care unit. She is sitting up in bed. Awake and alert in no acute distress. Feeling a bit better today compared to previous days. Denies any worsening shortness of breath, cough or congestion. He is maintaining O2 saturations up to 100% on 3 L/min per nasal cannula. She has been afebrile. Hemodynamically stable. Bronchial wash cultures were positive for presumptive Staph aureus and Jigna. Nasal swab positive for MSSA. White count 7.3. Hemoglobin 10.9. Platelets 261. Sodium 136. Potassium 3.7. Bicarb 26. BUN 37. Creatinine 1.18. Glucose 155. She remains on vancomycin and Diflucan. Remains on nystatin. Continued on DuoNeb inhalations, Symbicort, Solu-Medrol, Singulair. Progress note dated February 25, 2025. The patient is seen today in room 383. Currently, the patient is on 3 L of nasal oxygen. She is not receiving any IV fluids. The bronchoscopy revealed evidence of Staph aureus. The patient continues on fluconazole, and vancomycin. She seen in the room today, she appears in no distress. She is awake and alert. She sitting up in bed. She denies any worsening shortness of breath, cough, or chest congestion. Current laboratory data includes a white count 7.2, hemoglobin 11, hematocrit 34.1, and a platelet count of 205,000. Sodium 135, potassium 3.9, chlorides 100, CO2 24, BUN 38, creatinine 1.04. Glucose is 130. Chest x-ray shows cardiomegaly, and mild CHF, with mild vascular congestion. Progress note dated February 26, 2025. 79-year-old female seen today in room 383. She is sitting at the edge of the bed. Room is dark. She is on 3 L. No IV fluids. She underwent bronchoscopy on February 20. It showed evidence of methicillin sensitive Staph aureus. The patient is currently on Ancef. The patient complains of being fatigued, and weak, and coughing. She does not appear to be doing anything for herself, and this is probably delaying her healing. Current labs include a white count of 9, hemoglobin 11, hematocrit 35, platelet count of 174,000. Sodium 139, potassium 4.2, chlorides 102, CO2 23, anion gap 14, BUN 50, creatinine 1.22. Glucose is 132. Calcium is 9. Magnesium is 2.4. Objective - Vital Signs Vital signs: Vital Signs Temp 97.6 F 02/26/25 11:28 Pulse 90 02/26/25 11:28 Resp 20 02/26/25 11:28 BP 146/88 02/26/25 11:28 Pulse Ox 99 02/26/25 11:28 FiO2 Intake & Output 02/25/25 02/26/25 02/26/25 18:59 06:59 18:59 Intake Total 480 540 240 Balance 480 540 240 Weight 78.1 kg Intake: Oral 480 540 240 Other: Voiding Method Toilet Toilet Toilet # Voids 2 - Exam No acute distress, oriented 3. Currently on 3 L. HEENT examination is grossly unremarkable. Mucous membranes are moist. No oral lesions. Neck supple. Full range of motion. No adenopathy thyromegaly or neck vein distention. Cardiovascular examination reveals an irregular rhythm and rate. S1-S2 normal. No S3 or S4. No discernible murmur noted. Lungs reveal bibasilar crackles. No wheezes. No rhonchi. Breath sounds are equal bilaterally. Abdomen soft bowel sounds are heard. No masses or tenderness. Extremities are intact. No cyanosis clubbing or edema. Skin is without rash or lesion. Neurologic examination is brief but nonfocal. - Labs CBC & Chem 7: 02/26/25 06:51 02/26/25 06:51 Labs: Abnormal Lab Results - Last 24 Hours (Table) 02/25/25 02/25/25 02/26/25 Range/Units 16:42 20:00 06:28 RBC (4.10-5.20) 10*6/uL Hgb (12.0-15.0) g/dL Hct (37.2-46.3) % MCV (80.0-97.0) fL MCHC (32.0-37.0) g/dL Immature Gran # (0.00-0.04) 10*3/uL Lymphocytes # (0.90-5.00) 10*3/uL Eosinophils # (0.04-0.35) 10*3/uL BUN (7-17) mg/dL Creatinine (0.52-1.04) mg/dL Glucose (74-99) mg/dL POC Glucose (mg/dL) 124 H 166 H 177 H (70-110) mg/dL Magnesium (1.6-2.3) mg/dL 02/26/25 02/26/25 02/26/25 Range/Units 06:51 06:51 11:51 RBC 3.56 L (4.10-5.20) 10*6/uL Hgb 11.0 L (12.0-15.0) g/dL Hct 35.0 L (37.2-46.3) % MCV 98.3 H (80.0-97.0) fL MCHC 31.4 L (32.0-37.0) g/dL Immature Gran # 0.45 H (0.00-0.04) 10*3/uL Lymphocytes # 0.55 L (0.90-5.00) 10*3/uL Eosinophils # 0.00 L (0.04-0.35) 10*3/uL BUN 50 H (7-17) mg/dL Creatinine 1.22 H (0.52-1.04) mg/dL Glucose 141 H (74-99) mg/dL POC Glucose (mg/dL) 132 H (70-110) mg/dL Magnesium 2.4 H (1.6-2.3) mg/dL Microbiology - Last 24 Hours (Table) 02/20/25 13:20 Gram Stain - Final Bronchial Washings - Random Bronchial Washings Culture - Final Staphylococcus aureus Jigna albicans Assessment and Plan Assessment: Acute on chronic shortness of breath, most likely secondary to CHF. Acute hypoxic respiratory failure secondary to above. Persistent cough/COPD exacerbation. Bronchoscopy with BAL performed 02/20/2025 with significant thick secretions removed. Cultures revealing Jigna albicans and methicillin sensitive Staph aureus. Candidiasis, oral, initiated on Diflucan. Chronic systolic heart failure. Chronic pulmonary hypertension group 2/3. Valvular heart disease with moderate MR, moderate to severe TR. Coronary artery disease with previous PCI and stenting of the LAD on 01/04/2024. COPD/asthma with secondary symptoms of dyspnea wheezing cough. Chronic atrial fibrillation. Right lateral abdominal wall hematoma. Hypertension. Hyperlipidemia. Previous history of CVA/TIA. Previous history of GI bleed. History of nephrolithiasis. History of melanoma, resected. History of diverticulosis. History of rheumatoid arthritis. Plan: Plan dated February 25, 2025. The patient is seen today in room 383. She is resting comfortably in bed. She is on 3 L of oxygen. She continues on fluconazole and vancomycin. Labs, x- rays, all medications are reviewed. She denies any worsening or more severe shortness of breath, cough, wheezing, chest tightness, or phlegm production. All in all, she is feeling much improved, she is resting comfortably. We will continue to follow make recommendations where appropriate. Prognosis is guarded. Dictation was produced using [employer] software. Please excuse any grammatical, word or spelling errors. Plan dated February 26, 2025. The patient is seen today in room 383. She is sitting at the edge of the bed. Room is dark. Does not really seem to want to do much for herself. She continues on Ancef, for her methicillin sensitive Staph aureus infection. She had bronchoscopy on February 20. She continues on 3 L. She is not receiving any IV fluids. All labs, x-rays, and medications are reviewed. We will continue to follow. Prognosis is guarded. Dictation was produced using [employer] software. Please excuse any grammatical, word or spelling errors. Time with Patient: Less than 30
[2025-02-26 17:09] LABS: Glucose,Whole Blood 136 mg/dL (70-110)
[2025-02-26 20:13] LABS: Glucose,Whole Blood 181 mg/dL (70-110)
[2025-02-26 21:42] VITALS: TEMP 97.5
[2025-02-27 05:54] LABS: Glucose,Whole Blood 136 mg/dL (70-110)
[2025-02-27 07:58] LABS: African American GFR (CKD) 49 (>60 ml/min/1.73 sqM); Anion Gap 14 mmol/L; Blood Urea Nitrogen 52 mg/dL (7-17); Calcium 8.9 mg/dL (8.4-10.2); Carbon Dioxide 21 mmol/L (22-30); Chloride 104 mmol/L (98-107); Glucose 134 mg/dL (74-99); Non-African American GFR(CKD) 42 (>60 ml/min/1.73 sqM); Potassium 3.9 mmol/L (3.5-5.1); Sodium 139 mmol/L (137-145)
--- NOTE | 2025-02-27 10:06 | P.PN ---
Subjective Patient is seen in follow-up for acute kidney injury on chronic kidney disease. Renal function stable. Denies chest pain or shortness of breath. Has been voiding. Oral intake fair. Vital signs are stable. General: No acute distress. HEENT: Head exam is unremarkable. On nasal cannula. LUNGS: Scattered wheezing. HEART: Rate and Rhythm are regular. ABDOMEN: Nontender. EXTREMITITES: No edema. Objective - Vital Signs Vital signs: Vital Signs Temp 97.5 F L 02/27/25 04:00 Pulse 88 02/27/25 09:03 Resp 20 02/27/25 04:00 BP 125/69 02/27/25 04:00 Pulse Ox 96 02/27/25 04:00 FiO2 Intake & Output 02/26/25 02/27/25 02/27/25 18:59 06:59 18:59 Intake Total 698 Output Total 550 Balance 148 Weight 78.2 kg Intake: Intake, IV Titration 100 Amount ceFAZolin 2 gm In 100 Dextrose 5% in Water 50 ml @ 100 mls/hr IVPB Q8HR [facility] Rx#:[id number] Oral 598 Output: Urine 550 Other: Voiding Method Toilet Toilet - Labs CBC & Chem 7: 02/26/25 06:51 02/27/25 06:46 Labs: Abnormal Lab Results - Last 24 Hours (Table) 02/26/25 02/26/25 02/26/25 Range/Units 11:51 16:51 20:06 Carbon Dioxide (22-30) mmol/L BUN (7-17) mg/dL Creatinine (0.52-1.04) mg/dL Glucose (74-99) mg/dL POC Glucose (mg/dL) 132 H 136 H 181 H (70-110) mg/dL 02/27/25 02/27/25 Range/Units 05:53 06:46 Carbon Dioxide 21 L (22-30) mmol/L BUN 52 H (7-17) mg/dL Creatinine 1.22 H (0.52-1.04) mg/dL Glucose 134 H (74-99) mg/dL POC Glucose (mg/dL) 136 H (70-110) mg/dL Assessment and Plan Plan: Assessment: 1. Acute kidney injury secondary to ATN secondary to hypotension and diuresis. Renal function improved. GFR at baseline. No hydronephrosis noted on CT. 2. Chronic kidney disease stage IIIa with baseline creatinine 1-1.3 secondary to nephrosclerosis. 3. Acute tracheobronchitis status post bronchoscopy with lavage February 20, 2025. 4. Right lateral abdominal wall hematoma status post drainage. 5. Chronic systolic CHF ejection fraction of 30 to 35%. Plan: Maintain Lasix. Repeat BMP and magnesium level 2 to 3 days postdischarge. Follow-up outpatient 1 week postdischarge. Avoid nephrotoxins.
[2025-02-27 11:08] VITALS: BP 149/69
[2025-02-27 12:10] LABS: Glucose,Whole Blood 153 mg/dL (70-110)
[2025-02-27 12:15] VITALS: PULSE 86
--- NOTE | 2025-02-27 12:17 | P.PN ---
Subjective Progress Note Date: 02/27/25 Principal diagnosis: Congestive heart failure, COPD. This is a 79-year-old female patient was being seen in consultation for shortness of breath. The patient has a large number of medical problems and comorbidities. She was in the hospital in December 2024 and she was discharged home on 01/18/2025 after being treated for an acute on chronic respiratory failure due to COPD/asthma exacerbation and purulent tracheobronchitis. She is known to have CAD, CHF with impaired LV function with an ejection fraction of 30 to 35% and she has chronic atrial fibrillation. Following her discharge, the patient came into the emergency department on 01/21/2025 with abdominal pain and at that time, CAT scan of the abdomen and pelvis showed a large interpretation versus intramuscular hematoma of the right lateral abdominal wall measuring 14 x 6 x 18 cm in size. The patient accordingly was transferred to [facility] with I believe the hematoma was drained. Noted, at that time, the patient was also receiving anticoagulants with warfarin and her INR was slightly above therapeutic range. Since then, the patient has been taken off anticoagulants. The patient is coming into the hospital with worsening shortness of breath. She denies having any chest pain. The hematoma over the right lateral abdominal wall seems to be recovered and there is no active issues regarding that problem. For now, she remains in atrial fibrillation. Her chest x-ray was noted and it shows no significant airspace disease. There is cardiomegaly and pulm vessel congestion. CTA of the chest was also done and showed no evidence of any pulmonary embolism. There is a small density in the posterior right lung which is a nonspecific findings. There is also evidence of pulm vessel congestion specially in the mid and upper lobes bilaterally. The patient's white cell count currently is at 8.1 with a hemoglobin 9.8 and a platelet count of 384. Coagulation profile is within normal limits. BUN 16 with a creatinine of 0.8. Sodium is at 139 and potassium level is at 3.5. Troponins are 0.08 and 0.1 and 0.1 respectively and a proBNP level is 14,000. Procalcitonin level is at 0.2. The LFTs are essentially within normal limits. Total protein is at 6.2 with a albumin level of 3.5. The patient was given IV Lasix and currently she is on Lasix 40 mg IV push every 12 hours. She is producing excellent amount of urine output and she is feeling better while she is being diuresed. She remains on metoprolol 12.5 mg p.o. twice a day. She is on Symbicort as maintenance and DuoNeb nebulizer treatments [id number]. She is on Plavix. No anticoagulants for now. On today's evaluation 02/14/2025, the patient is being seen for a follow-up. The patient is doing well. She has diuresed adequately over the past 24 hours and the patient remains on IV Lasix. She continues to produce adequate amount of urine output. She remains on oxygen 2 L/min nasal cannula. She remains in atrial fibrillation. No chest pain. No cough or sputum production. She was restarted on Pradaxa. She remains on Symbicort and DuoNeb number of treatments [id number]. IV Lasix 40 mg every 12 hours. Rest of the medications are essentially unchanged. Aldactone was also added to her regimen. Sodium levels at 137 with a potassium level of 3.1, BUN 17 with a creatinine of 1.07 and a serum bicarbonate 30. White cell count is at 7 with a hemoglobin of 10.1. On today's evaluation of 02/15/2025, the patient is feeling better. Some limited cough. No significant sputum production. Continues to receive diuretics with IV Lasix and the patient's fluid balance is negative and remains negative over the past 24 hours. No hemoptysis. No pleurisy. No chest pain. No altered mentation. No other significant events overnight. Net fluid balance is 2 L over the past 24 hours. BUN is 18 with a creatinine of 1.5. Sodium is at 140 and a potassium level is at 3.6. No fever. No chills. No other complaints otherwise. On a separate note, the patient is still being seen by cardiology. She is on Cozaar, Lopressor and Aldactone 25 mg p.o. daily. She remains on Plavix. She remains on statins with Lipitor 40 mg p.o. daily. Rest of the home medications have been resumed. She is on Symbicort and DuoNeb nebulizer treatments [id number]. Oxygenation is stable and the patient is currently on 2 L of O2 nasal cannula with pulse ox of 94 to 98%. 02/16/2025, the patient is complaining of cough. No significant sputum production. Shortness is improved. The patient's white cell count is at 6.7 with hemoglobin 10.8. BUN is 20 with a creatinine of 1.6. Sodium levels at 134 with a potassium level of 3.4. She is on 2 L of oxygen by nasal cannula with a pulse ox of 94%. She was taken off the diuretics. She is only on Aldactone 12.5 mg p.o. daily. She is currently off Lasix. Remains on Symbicort. Remains on DuoNeb updrafts. Remains on Plavix and Pradaxa. Remains on metoprolol 25 mg p.o. twice a day. Hemodynamically stable. On 02/17/2025, the patient is being seen for a follow-up. Due to her ongoing symptoms of cough, the patient was started on IV Solu-Medrol yesterday at a dose of 40 mg every 6 hours. She was also given DuoNeb updrafts [id number] and Symbicort 2 puffs twice a day. Symptoms have essentially unchanged and the patient continues to have frequent coughing spells. No significant sputum production. No hemoptysis or pleurisy. She is awake and alert. She is communicating. Pulse ox is noted of 96% with some oxygen by nasal cannula. No reported aspiration. The white cell count 7.3 with a hemoglobin 10.9 and a platelet count of 426. Rest of electrolytes are all within normal limits. Blood sugars at 133. No other issues for now other than her ongoing coughing. No hemoptysis. The patient is seen today February 18, 2025 in follow-up on the selective care unit. She is currently sitting up in bed. Awake and alert in no acute distress. She still has a dry nonproductive cough. She is maintaining good O2 saturations in upper 90s on room air. She has been afebrile. Hemodynamically stable. Sputum culture pending. White count 11.0. Hemoglobin 10.2. Platelets 404. Sodium 132. Potassium 4.4. Bicarb 23. BUN 25. Creatinine 1.17. Glucose 135. She remains on Symbicort, albuterol, Solu-Medrol and Singulair. She is on Robitussin and Tessalon Perles for her cough. The patient is seen today February 19, 2025 in follow-up on the selective care unit. She continues to have issues with cough and congestion. Not much improvement. She is maintaining O2 saturations in the 90s on 2 L/min per nasal cannula. Her cough is productive with thick yellow sputum. Sputum culture revealed no growth. Chest x-ray showing mild cardiomegaly and interstitial changes. Pulmonary vascular congestion. Slight improvement. White count 11.4. Hemoglobin 10.6. Platelets 358. Sodium 137. Potassium 4.1. Bicarb 26. BUN 27. Creatinine 1.09. Glucose 136. She remains on DuoNeb inhalations, Symbicort, IV Solu-Medrol. She is also on Singulair, Robitussin, Tessalon Perles The patient is seen today February 20, 2025 and follow-up on the selective care unit. She is sitting up in bed. Awake and alert in no acute distress. Continues with persistent currently dry cough. Maintaining O2 saturations up to 100% on 2 L/min per nasal cannula. Sputum culture revealed no growth. White count 16.4. Hemoglobin 10.7. Platelets 347. Sodium 136. Potassium 4.2. Bicarb 24. BUN 34. Creatinine 1.10. Glucose 128. She remains on Tessalon Perles and Robitussin as needed. Continued on DuoNeb inhalations, Symbicort, Solu-Medrol. Empiric antibiotics in the form of doxycycline. The patient is seen today February 21, 2025 in follow-up on the selective care unit. She is awake and alert in no acute distress. Sitting up in bed. Maintaining O2 saturations in the 90s on 2 L/min per nasal cannula. She is still not feeling much better. She did undergo bronchoscopy with BAL with many thick secretions removed. She is still somewhat bronchospastic and wheezing. Still with a cough. She remains on DuoNeb inhalations, Symbicort, Solu-Medrol at 60 mg every 6 hours. She is continued on Tessalon Perles and Robitussin. Continued on doxycycline. Initiated on Diflucan yesterday with yeast to be invisible during the procedure. Continues on diuretics. White count 15.2. Hemoglobin 10.7. Platelets 307. Sodium 137. Potassium 4.3. Bicarb 25. BUN 33. Creatinine 1.14. Glucose 119. The patient is seen today February 22, 2025 in follow-up on the selective care unit. She is currently resting in bed. Awake and alert in no acute distress. She is still having issues with shortness of breath. She is maintaining O2 saturations up to 100% on 3 L/min per nasal cannula. She has been afebrile. Hemodynamically stable. Bronchoscopy wash findings are showing presumptive Staph aureus, Jigna albicans. White count 10.0. Hemoglobin 11.0. Platelets 256. Sodium 139. Potassium 3.8. Bicarb 29. BUN 43. Creatinine 1.32. Glucose 150. She remains on Diflucan. Will add nystatin swish and swallow. Continued on DuoNeb and elations, Symbicort, Solu-Medrol. Remains on diuretics. Remains on doxycycline. The patient is seen today February 24, 2025 in follow-up on the selective care unit. She is sitting up in bed. Awake and alert in no acute distress. Feeling a bit better today compared to previous days. Denies any worsening shortness of breath, cough or congestion. He is maintaining O2 saturations up to 100% on 3 L/min per nasal cannula. She has been afebrile. Hemodynamically stable. Bronchial wash cultures were positive for presumptive Staph aureus and Jigna. Nasal swab positive for MSSA. White count 7.3. Hemoglobin 10.9. Platelets 261. Sodium 136. Potassium 3.7. Bicarb 26. BUN 37. Creatinine 1.18. Glucose 155. She remains on vancomycin and Diflucan. Remains on nystatin. Continued on DuoNeb inhalations, Symbicort, Solu-Medrol, Singulair. Progress note dated February 25, 2025. The patient is seen today in room 383. Currently, the patient is on 3 L of nasal oxygen. She is not receiving any IV fluids. The bronchoscopy revealed evidence of Staph aureus. The patient continues on fluconazole, and vancomycin. She seen in the room today, she appears in no distress. She is awake and alert. She sitting up in bed. She denies any worsening shortness of breath, cough, or chest congestion. Current laboratory data includes a white count 7.2, hemoglobin 11, hematocrit 34.1, and a platelet count of 205,000. Sodium 135, potassium 3.9, chlorides 100, CO2 24, BUN 38, creatinine 1.04. Glucose is 130. Chest x-ray shows cardiomegaly, and mild CHF, with mild vascular congestion. Progress note dated February 26, 2025. 79-year-old female seen today in room 383. She is sitting at the edge of the bed. Room is dark. She is on 3 L. No IV fluids. She underwent bronchoscopy on February 20. It showed evidence of methicillin sensitive Staph aureus. The patient is currently on Ancef. The patient complains of being fatigued, and weak, and coughing. She does not appear to be doing anything for herself, and this is probably delaying her healing. Current labs include a white count of 9, hemoglobin 11, hematocrit 35, platelet count of 174,000. Sodium 139, potassium 4.2, chlorides 102, CO2 23, anion gap 14, BUN 50, creatinine 1.22. Glucose is 132. Calcium is 9. Magnesium is 2.4. Progress note dated February 27, 2025. 79-year-old female, seen again in room 383. The patient continues on nasal O2 at 3 L. She is receiving Ancef. She is not receiving any IV fluids. She does not appear very motivated to get better. She underwent bronchoscopy on February 20, which showed evidence of methicillin sensitive Staph aureus. She was placed on Ancef. She will be transition to Augmentin. From our perspective, she could be considered for possible discharge. Current laboratory data includes a sodium 139, potassium 3.9, chlorides 104, CO2 21, anion gap 14, BUN 52, creatinine 1.22. Glucose is 153. Calcium is 8.9. Objective - Vital Signs Vital signs: Vital Signs Temp 97.5 F L 02/27/25 04:00 Pulse 84 02/27/25 12:00 Resp 20 02/27/25 09:40 BP 149/69 02/27/25 09:40 Pulse Ox 99 02/27/25 09:40 FiO2 Intake & Output 02/26/25 02/27/25 02/27/25 18:59 06:59 18:59 Intake Total 698 Output Total 550 Balance 148 Weight 78.2 kg Intake: Intake, IV Titration 100 Amount ceFAZolin 2 gm In 100 Dextrose 5% in Water 50 ml @ 100 mls/hr IVPB Q8HR [facility] Rx#:[id number] Oral 598 Output: Urine 550 Other: Voiding Method Toilet Toilet Toilet - Exam No acute distress, oriented 3. Currently on 3 L. HEENT examination is grossly unremarkable. Mucous membranes are moist. No oral lesions. Neck supple. Full range of motion. No adenopathy thyromegaly or neck vein distention. Cardiovascular examination reveals an irregular rhythm and rate. S1-S2 normal. No S3 or S4. No discernible murmur noted. Lungs reveal bibasilar crackles. No wheezes. No rhonchi. Breath sounds are equal bilaterally. Abdomen soft bowel sounds are heard. No masses or tenderness. Extremities are intact. No cyanosis clubbing or edema. Skin is without rash or lesion. Neurologic examination is brief but nonfocal. - Labs CBC & Chem 7: 02/26/25 06:51 02/27/25 06:46 Labs: Abnormal Lab Results - Last 24 Hours (Table) 02/26/25 02/26/25 02/27/25 Range/Units 16:51 20:06 05:53 Carbon Dioxide (22-30) mmol/L BUN (7-17) mg/dL Creatinine (0.52-1.04) mg/dL Glucose (74-99) mg/dL POC Glucose (mg/dL) 136 H 181 H 136 H (70-110) mg/dL 02/27/25 02/27/25 Range/Units 06:46 12:02 Carbon Dioxide 21 L (22-30) mmol/L BUN 52 H (7-17) mg/dL Creatinine 1.22 H (0.52-1.04) mg/dL Glucose 134 H (74-99) mg/dL POC Glucose (mg/dL) 153 H (70-110) mg/dL Assessment and Plan Assessment: Acute on chronic shortness of breath, most likely secondary to CHF. Acute hypoxic respiratory failure secondary to above. Persistent cough/COPD exacerbation. Bronchoscopy with BAL performed 02/20/2025 with significant thick secretions removed. Cultures revealing Jigna albicans and methicillin sensitive Staph aureus. Candidiasis, oral, initiated on Diflucan. Chronic systolic heart failure. Chronic pulmonary hypertension group 2/3. Valvular heart disease with moderate MR, moderate to severe TR. Coronary artery disease with previous PCI and stenting of the LAD on 01/04/2024. COPD/asthma with secondary symptoms of dyspnea wheezing cough. Chronic atrial fibrillation. Right lateral abdominal wall hematoma. Hypertension. Hyperlipidemia. Previous history of CVA/TIA. Previous history of GI bleed. History of nephrolithiasis. History of melanoma, resected. History of diverticulosis. History of rheumatoid arthritis. Plan: Plan dated February 25, 2025. The patient is seen today in room 383. She is resting comfortably in bed. She is on 3 L of oxygen. She continues on fluconazole and vancomycin. Labs, x- rays, all medications are reviewed. She denies any worsening or more severe shortness of breath, cough, wheezing, chest tightness, or phlegm production. All in all, she is feeling much improved, she is resting comfortably. We will continue to follow make recommendations where appropriate. Prognosis is guarded. Dictation was produced using [employer] software. Please excuse any grammatical, word or spelling errors. Plan dated February 26, 2025. The patient is seen today in room 383. She is sitting at the edge of the bed. Room is dark. Does not really seem to want to do much for herself. She continues on Ancef, for her methicillin sensitive Staph aureus infection. She had bronchoscopy on February 20. She continues on 3 L. She is not receiving any IV fluids. All labs, x-rays, and medications are reviewed. We will continue to follow. Prognosis is guarded. Dictation was produced using [employer] software. Please excuse any grammatical, word or spelling errors. Plan dated February 27, 2025. The primary service was planning on possibly discharging the patient. The patient could be changed to Augmentin. Labs, x-rays, medications are reviewed. She is on 3 L. She is relatively stable, and pretty much at baseline. They may repeat a chest x-ray prior to discharging her. Bronchoscopy on February 20, revealed methicillin sensitive Staph aureus. She was initially treated with vancomycin, and then transition to cefazolin. We will continue to follow. Labs, x-rays, medications are reviewed. Prognosis is guarded. Dictation was produced using [employer] software. Please excuse any grammatical, word or spelling errors. Time with Patient: Less than 30
--- NOTE | 2025-02-27 17:13 | P.DS ---
Providers Date of admission: 02/13/25 09:03 Expected date of discharge: 02/27/25 Attending physician: Roger Blackwell MD Consults: 02/13/25 10:25 Consult Physician Routine Consulting Provider: Rebecca Bajwa Consult Reason/Comments: R posterior Lower lobe density, r/o mass Do you want consulting provider notified?: Yes 02/16/25 08:47 Consult Physician Routine Consulting Provider: Lindsey Woods Consult Reason/Comments: HEENA Do you want consulting provider notified?: Yes Primary care physician: Dex Mcneal MD Hospital Course: Hospital course: Patient is a pleasant 79-year-old female with a past medical history of CAD status post recent stenting (01/04/24), chronic persistent atrial fibrillation, chronic systolic heart failure with previously known EF of 30 to 35%, hypertension, COPD with chronic hypoxic respiratory failure home oxygen dependent on 2 L at all times, and stage IIIb chronic kidney disease. She follows with Address Change Clerk. Dr. Bajwa and PCP Dr. Mcneal. She presented to the hospital on 02/12/2025 with a chief complaint of shortness of breath status post discharged from rehabilitation facility after undergoing interventional radiology for drainage of abdominal hematoma. Upon arrival to our facility, patient underwent evaluation in the emergency department. Vital signs upon arrival show blood pressure 129/86, heart rate 103, respiratory rate 24, temp 97.7 F, and SpO2 95% on baseline home oxygen 2 L EKG was completed showing atrial fibrillation at 106 bpm with occasional PVC. Chest x-ray revealing right lower lobe infiltrate. Labs completed and reviewed. CBC showing macrocytic anemia with hemoglobin of 9.8 and MCV of 97.4. Coagulation profile showing a subtherapeutic INR of 1.0 (as pt has been holding warfarin secondary to abdominal wall hematoma) and a low PTT of 21.2. BMP showing non-anion gap metabolic acidosis with chloride of 110, bicarb 21, and anion gap of 8. Blood glucose was 105. Calcium 9.3. Liver profile showing elevated total bili of 1.9 and AST of 37. CRP elevated at 2.8. proBNP was 14,000. Troponin was elevated at 0.081. CTA chest completed negative for pulmonary emboli showing a small density posterior right lung likely infiltrate, however unable to rule out mass recommending follow-up imaging. Troponins trended resulting at 0.081, 0.104, 0.101. CT abdomen pelvis on 02/17/2025 showed redemonstration of right anterolateral abdominal wall interfascial versus intramuscular hematoma. This is mildly decreased in size from prior exam but still measures up to 14.8 cm. Stable left ovarian cystic lesion. Recommend further evaluation with pelvic ultrasound in this age group. Nonobstructive bilateral renal calculi. Chest x- ray on 02/18/2025 showed mild cardiomegaly and interstitial changes. Correlate for CHF with pulmonary vascular congestion. No hola pulmonary edema at this time. Patient underwent a bronchoscopy with bronchoalveolar lavage on 02/20/2025 and the procedure showed acute purulent tracheobronchitis and possible candidiasis/oral thrush. Chest x-ray on 02/21/2025 showed new multifocal right lung acute infiltrate and/or edema. Bronchial washing culture on 02/20/2025 showed Staph aureus and Jigna albicans. Nasal swab on 02/22/2025 showed Staph aureus, not MRSA. Repeat chest x-ray on 02/25/2025 showed redemonstration of cardiomegaly and interstitial changes. Correlate for CHF with pulmonary vascular congestion. Additional similar right lung infiltrates and/or edema. Patient remains on doxycycline until 02/23/2025. Was started on vancomycin and Diflucan on 02/24/2025. Patient's breathing improved over the course of hospitalization. Cultures growing Jigna and MSSA. Patient switched over to cefazolin which she tolerated well. Patient is medically stable to be disch arged back home with home health services on 02/27/2025. She will be discharged home with Keflex 500 mg every 8 hours for 10 days, Diflucan 200 mg daily for 10 days, prednisone taper, and Aldactone 12.5 mg daily. If discontinued patient's warfarin 8 mg and 2 mg also isosorbide mononitrate 30 mg daily. Patient will follow with Dr. Browne 1 to 2 weeks after discharge and follow up with her PCP. Will continue to hold warfarin or anticoagulation. I also had a discussion with PCP with regards to patient needing palliative care/hospice care. Patient is at high risk for readmission. Physical exam GENERAL: This is a 79-year-old in no apparent distress at the time of examination. Pleasant and cooperative. HEENT: Head is atraumatic, normocephalic. Pupils are equal, round, and reactive to light. Sclerae anicteric. Conjunctivae are clear. Mucus membranes of the mouth are moist. Neck is supple. RESPIRATORY: Mild expiratory wheezing throughout the lung ren. No use of accessory muscles. Patient maintaining oxygen saturation greater than 92%. CARDIOVASCULAR: Regular rate and rhythm. S1 and S2 noted. No systolic or diastolic murmur auscultated. No JVD noted. No S3 or S4 noted. GASTROINTESTINAL: No distention noted. Abdomen soft and round. Normal active bowel sounds auscultated x 4 quadrants. No pain or tenderness noted upon palpation. INTEGUMENTARY: No cyanosis. No jaundice. No rashes noted. No cellulitis noted. EXTREMITIES: 2+ peripheral pulses. No evidence of peripheral edema. No calf tenderness noted. NEUROLOGIC: Cranial nerves II-XII intact. PSYCHIATRIC: Awake, alert, and oriented X 3. Appropriate affect. Intact judgement and insight. Discharge diagnoses Acute purulent tracheobronchitis Oral candidiasis Dysphagia Acute on chronic hypoxic respiratory failure CHF exacerbation COPD exacerbation Abdominal wall hematoma Acute kidney injury History of systolic heart failure with reduced ejection fraction, EF of 30 to 35% Elevated troponin Chronic persistent atrial fibrillation Hypertension History of CAD status post stenting Hypokalemia Hypomagnesemia Neuropathy Major depression disorder A total of 36 minutes of time were spent preparing this complex discharge summary. Patient was discharged on 02/27/25 at 1125. I have seen and evaluated the patient today. Discussed with the resident and agree with the residents finding and plan as documented in the resident's note. Changes highlighted in blue font. Patient Condition at Discharge: Stable Plan - Discharge Summary Discharge Rx Participant: No New Discharge Prescriptions: New Cephalexin [Keflex] 500 mg PO Q8HR 10 Days #30 cap Fluconazole [Diflucan] 200 mg PO DAILY 10 Days #10 tablet predniSONE See Taper PO DIRECTED 20 Days #50 tab Spironolactone [Aldactone] 12.5 mg PO DAILY #90 tab Continue Pantoprazole Sodium [Protonix] 40 mg PO BID DULoxetine HCL [Cymbalta] 60 mg PO DAILY Atorvastatin [Lipitor] 40 mg PO HS #90 tab Clopidogrel [Plavix] 75 mg PO DAILY #90 tab Furosemide [Lasix] 40 mg PO DAILY 30 Days #30 tab Metoprolol Tartrate [Lopressor] 12.5 mg PO BID Ipratropium-Albuterol Nebulize [Duoneb 0.5 mg-3 mg/3 ml Soln] 3 ml INHALATION RT-QID Montelukast [Singulair] 10 mg PO HS #30 tab Cyanocobalamin (Vitamin B-12) [Vitamin B-12] 1,000 mcg PO DAILY Pregabalin [Lyrica] 100 mg PO BID #6 cap Albuterol Inhaler [Ventolin Hfa Inhaler] 2 puff INHALATION RT-Q6H PRN PRN Reason: Shortness Of Breath Cholecalciferol (Vitamin D3) [Vitamin D3 (50 Mcg = 2000 Iu)] 50 mcg PO DAILY estradioL [Estrace] 1 mg PO DAILY calcitrioL [Rocaltrol] 0.25 mcg PO MOTH Budesonide-Formot 160-4.5 Mcg [Symbicort 160-4.5 Mcg Inhaler] 2 puff INHALATION RT-BID #2 each Benzonatate [Tessalon Perles] 200 mg PO TID PRN #30 cap PRN Reason: Cough Discontinued Warfarin Sodium 8 mg PO THFR@2100 Warfarin Sodium 2 mg PO SUMOTUWESA@2100 Isosorbide Mononitrate ER [Imdur] 30 mg PO DAILY #90 tab Discharge Medication List Pantoprazole Sodium [Protonix] 40 mg PO BID 05/14/14 [History] Cyanocobalamin (Vitamin B-12) [Vitamin B-12] 1,000 mcg PO DAILY 06/16/22 [History] DULoxetine HCL [Cymbalta] 60 mg PO DAILY 07/27/23 [History] Pregabalin [Lyrica] 100 mg PO BID #6 cap 08/04/23 [Rx] Albuterol Inhaler [Ventolin Hfa Inhaler] 2 puff INHALATION RT-Q6H PRN 12/22/23 [History] Cholecalciferol (Vitamin D3) [Vitamin D3 (50 Mcg = 2000 Iu)] 50 mcg PO DAILY 12/22/23 [History] Atorvastatin [Lipitor] 40 mg PO HS #90 tab 12/25/23 [Rx] Clopidogrel [Plavix] 75 mg PO DAILY #90 tab 01/06/24 [Rx] Furosemide [Lasix] 40 mg PO DAILY 30 Days #30 tab 05/08/24 [Rx] Ipratropium-Albuterol Nebulize [Duoneb 0.5 mg-3 mg/3 ml Soln] 3 ml INHALATION RT-QID 01/12/25 [History] Metoprolol Tartrate [Lopressor] 12.5 mg PO BID 01/12/25 [History] calcitrioL [Rocaltrol] 0.25 mcg PO MOTH 01/12/25 [History] estradioL [Estrace] 1 mg PO DAILY 01/12/25 [History] Benzonatate [Tessalon Perles] 200 mg PO TID PRN #30 cap 01/18/25 [Rx] Budesonide-Formot 160-4.5 Mcg [Symbicort 160-4.5 Mcg Inhaler] 2 puff INHALATION RT-BID #2 each 01/18/25 [Rx] Montelukast [Singulair] 10 mg PO HS #30 tab 01/18/25 [Rx] Cephalexin [Keflex] 500 mg PO Q8HR 10 Days #30 cap 02/27/25 [Rx] Fluconazole [Diflucan] 200 mg PO DAILY 10 Days #10 tablet 02/27/25 [Rx] Spironolactone [Aldactone] 12.5 mg PO DAILY #90 tab 02/27/25 [Rx] predniSONE See Taper PO DIRECTED 20 Days #50 tab 02/27/25 [Rx] Follow up Appointment(s)/Referral(s): Brooklyn Prince MD [STAFF PHYSICIAN] - 04/11/25 10:00 am Dex Mcneal MD [Primary Care Provider] - 03/07/25 2:00 pm (With Dr. Kulkarni) [facility], [NON-STAFF] - Patient Instructions/Handouts: Acute Bronchitis (GEN), COPD (Chronic Obstructive Pulmonary Disease) (DC) Activity/Diet/Wound Care/Special Instructions: Please see PCP and pulmonology. Discharge Disposition: HOME WITH HOME HEALTH SERVICES
== END 2025-02-27 13:57 | disposition home health service (06) | DRG 280 ==
LOC: EC 17:35 → 3SCARD 21:53 → OBSVTOIN 02-13 09:03 → 3SCARD 02-13 10:50
PROVIDERS: ADMIT Internal Medicine; ATTEND Internal Medicine
PROC: 0B9M8ZX Drainage of Bilateral Lungs, Via Natural or Artificial Opening Endoscopic, Diagnostic (ICD-10-PCS; principal; 2025-02-20 13:35)
PROC: 0BDM8ZX Extraction of Bilateral Lungs, Via Natural or Artificial Opening Endoscopic, Diagnostic (ICD-10-PCS; principal; 2025-02-20 13:35)
DX: I13.0 Hypertensive heart and chronic kidney disease with heart failure and stage 1 through stage 4 chronic kidney disease, or unspecified chronic kidney disease (principal); I50.23 Acute on chronic systolic (congestive) heart failure; I21.A1 Myocardial infarction type 2; J15.211 Pneumonia due to Methicillin susceptible Staphylococcus aureus; J96.21 Acute and chronic respiratory failure with hypoxia; N17.0 Acute kidney failure with tubular necrosis; B37.0 Candidal stomatitis; E87.20 Acidosis, unspecified; I27.22 Pulmonary hypertension due to left heart disease; I48.21 Permanent atrial fibrillation; G43.909 Migraine, unspecified, not intractable, without status migrainosus; J44.0 Chronic obstructive pulmonary disease with (acute) lower respiratory infection; M06.9 Rheumatoid arthritis, unspecified; N18.32 Chronic kidney disease, stage 3b; I69.30 Unspecified sequelae of cerebral infarction; F32.9 Major depressive disorder, single episode, unspecified; E89.0 Postprocedural hypothyroidism; D53.9 Nutritional anemia, unspecified; I08.1 Rheumatic disorders of both mitral and tricuspid valves; J44.1 Chronic obstructive pulmonary disease with (acute) exacerbation; I48.92 Unspecified atrial flutter; J45.901 Unspecified asthma with (acute) exacerbation; I95.9 Hypotension, unspecified; Z99.81 Dependence on supplemental oxygen; Z79.01 Long term (current) use of anticoagulants; R13.10 Dysphagia, unspecified; N20.0 Calculus of kidney; I25.10 Atherosclerotic heart disease of native coronary artery without angina pectoris; T50.2X5A Adverse effect of carbonic-anhydrase inhibitors, benzothiadiazides and other diuretics, initial encounter; I25.2 Old myocardial infarction; I25.5 Ischemic cardiomyopathy; I49.3 Ventricular premature depolarization; G62.9 Polyneuropathy, unspecified; I73.00 Raynaud's syndrome without gangrene; J20.9 Acute bronchitis, unspecified; K21.9 Gastro-esophageal reflux disease without esophagitis; M54.9 Dorsalgia, unspecified; R79.1 Abnormal coagulation profile; M79.81 Nontraumatic hematoma of soft tissue; E78.5 Hyperlipidemia, unspecified; N83.209 Unspecified ovarian cyst, unspecified side; E83.42 Hypomagnesemia; E87.6 Hypokalemia; Z79.02 Long term (current) use of antithrombotics/antiplatelets; Z79.51 Long term (current) use of inhaled steroids; Z79.84 Long term (current) use of oral hypoglycemic drugs; Z79.890 Hormone replacement therapy; Z79.899 Other long term (current) drug therapy; Z85.820 Personal history of malignant melanoma of skin; Z87.442 Personal history of urinary calculi; Z95.5 Presence of coronary angioplasty implant and graft; Z96.641 Presence of right artificial hip joint; Z96.653 Presence of artificial knee joint, bilateral; Z87.11 Personal history of peptic ulcer disease; Z71.3 Dietary counseling and surveillance; Z28.21 Immunization not carried out because of patient refusal; Z88.6 Allergy status to analgesic agent; Z88.1 Allergy status to other antibiotic agents; Z88.5 Allergy status to narcotic agent; Z88.0 Allergy status to penicillin; Z88.8 Allergy status to other drugs, medicaments and biological substances
CPT/HCPCS: 31624; 31645; 36415; 71045; 71046; 71275; 74176; 80048; 80053; 80202; 82565; 83735; 83880; 84145; 84484; 85025; 85027; 85610; 85652; 85730; 86140; 87070; 87077; 87102; 87116; 87186; 87205; 87206; 89050; 93005; 94640; 94760; 96365; 96366; 96367; 96375; 96376; 99285

== ENCOUNTER 2025-03-01 04:59 | Inpatient (IN) | payer MEDICARE, BC ==
[2025-03-01 05:35] VITALS: TEMP 97.1
[2025-03-01 05:45] LABS: Basophils # (A) 0.06 10*3/uL (0.00-0.10); Basophils % (A) 0.2 %; HCT 35.9 % (37.2-46.3); HGB 11.4 g/dL (12.0-15.0); Immature Platelet Fraction 11.8 % (1.1-6.1); Lymphocytes # (A) 0.83 10*3/uL (0.90-5.00); Lymphocytes % (A) 3.3 %; MCH 31.9 pg (27.0-32.0); MCHC 31.8 g/dL (32.0-37.0); MCV 100.6 fL (80.0-97.0); Mean Platelet Volume 12.7 fL (9.5-12.2); Monocytes % (A) 3.6 %; Neutrophils # (A) 22.71 10*3/uL (1.80-7.70); Neutrophils % (A) 90.2 %; Platelet Count 105 10*3/uL (140-440); RBC 3.57 10*6/uL (4.10-5.20); RDW 19.3 % (11.5-14.5); WBC 25.17 10*3/uL (4.50-10.00)
[2025-03-01 05:56] LABS: ALT 347 U/L (4-34); African American GFR (CKD) 40 (>60 ml/min/1.73 sqM); Albumin 4.1 g/dL (3.5-5.0); Anion Gap 17 mmol/L; Blood Urea Nitrogen 63 mg/dL (7-17); Calcium 9.1 mg/dL (8.4-10.2); Carbon Dioxide 22 mmol/L (22-30); Chloride 102 mmol/L (98-107); Glucose 75 mg/dL (74-99); Non-African American GFR(CKD) 35 (>60 ml/min/1.73 sqM); Sodium 141 mmol/L (137-145); Total Bilirubin 2.6 mg/dL (0.2-1.3); Total Protein 6.6 g/dL (6.3-8.2)
[2025-03-01 06:06] LABS: NT-Pro-B-Type Natriuretic Pept 23100 pg/mL
[2025-03-01 06:07] LABS: AST 495 U/L (14-36); Alkaline Phosphatase 127 U/L (38-126); Potassium 4.8 mmol/L (3.5-5.1)
[2025-03-01 06:20] LABS: INR 1.6 (<1.2); Prothrombin Time 16.3 sec (10.0-12.5)
--- NOTE | 2025-03-01 06:35 | ED ---
SOB HPI - General Chief Complaint: Shortness of Breath Stated Complaint: Difficulty Breathing Time Seen by Provider: 03/01/25 05:18 Source: patient Mode of arrival: EMS Limitations: no limitations - History of Present Illness Initial Comments: This patient is a 79-year-old woman with history of COPD and CHF who presents with complaint that she has had worsening shortness of breath. The patient was discharged from the hospital after 14 day hospital stay for similar symptoms, she had been diagnosed with acute tracheobronchitis and CHF exacerbation. She states that over the course of the night she became more short of breath. She was using her home oxygen set at 4 L. The patient denies fever. She does have mild nonproductive cough. Patient denies chest pain. No leg pain or swelling. No change in urination or bowel movements. MD Complaint: shortness of breath -: hour(s) Severity scale (1-10): 0 Consistency: constant Improves With: nothing Worsens With: lying flat Known History Of: COPD, congestive heart failure Associated Symptoms: denies other symptoms - Related Data Home Oxygen Therapy: Yes Home Oxygen Amount: 4 Liters Home Medications Medication Instructions Recorded Confirmed Pantoprazole Sodium [Protonix] 40 mg PO BID 05/14/14 03/01/25 Cyanocobalamin (Vitamin B-12) 1,000 mcg PO DAILY 06/16/22 03/01/25 [Vitamin B-12] DULoxetine HCL [Cymbalta] 60 mg PO DAILY 07/27/23 03/01/25 Albuterol Inhaler [Ventolin Hfa 2 puff INHALATION RT-Q6H PRN 12/22/23 03/01/25 Inhaler] Cholecalciferol (Vitamin D3) 50 mcg PO DAILY 12/22/23 03/01/25 [Vitamin D3 (50 Mcg = 2000 Iu)] Ipratropium-Albuterol Nebulize 3 ml INHALATION RT-QID 01/12/25 03/01/25 [Duoneb 0.5 mg-3 mg/3 ml Soln] Metoprolol Tartrate [Lopressor] 12.5 mg PO BID 01/12/25 03/01/25 calcitrioL [Rocaltrol] 0.25 mcg PO MOTH 01/12/25 03/01/25 estradioL [Estrace] 1 mg PO DAILY 03/22/25 05/09/25 Previous Rx's Medication Instructions Recorded Pregabalin [Lyrica] 100 mg PO BID #6 cap 08/04/23 Atorvastatin [Lipitor] 40 mg PO HS #90 tab 12/25/23 Clopidogrel [Plavix] 75 mg PO DAILY #90 tab 01/06/24 Furosemide [Lasix] 40 mg PO DAILY 30 Days #30 tab 05/08/24 Benzonatate [Tessalon Perles] 200 mg PO TID PRN #30 cap 01/18/25 Budesonide-Formot 160-4.5 Mcg 2 puff INHALATION RT-BID #2 each 01/18/25 [Symbicort 160-4.5 Mcg Inhaler] Montelukast [Singulair] 10 mg PO HS #30 tab 01/18/25 Cephalexin [Keflex] 500 mg PO Q8HR 10 Days #30 cap 02/27/25 Fluconazole [Diflucan] 200 mg PO DAILY 10 Days #10 tablet 02/27/25 Spironolactone [Aldactone] 12.5 mg PO DAILY #90 tab 02/27/25 predniSONE See Taper PO DIRECTED 20 Days 02/27/25 #50 tab Allergies Allergy/AdvReac Type Severity Reaction Status Date / Time cephalexin monohydrate Allergy Rash/Hives Verified 03/01/25 10:05 [From Keflex] diphenhydramine HCl Allergy SWELLING Verified 03/01/25 10:05 [From Benadryl] OF TONGUE, SOB enoxaparin [From Lovenox] Allergy Rash/Hives Verified 03/01/25 10:05 Penicillins Allergy SWELLING, Verified 03/01/25 10:05 HIVES sulfamethoxazole Allergy Anaphylaxis, Verified 03/01/25 10:05 [From Bactrim] Swelling trimethoprim [From Bactrim] Allergy Anaphylaxis, Verified 03/01/25 10:05 Swelling aspirin AdvReac EXCESS Verified 03/01/25 10:05 BLEEDING milk AdvReac Abdominal Verified 03/01/25 10:05 Pain morphine AdvReac Vomiting Verified 03/01/25 10:05 milk chocolate AdvReac Nausea Uncoded 03/01/25 10:05 Review of Systems ROS Statement: Those systems with pertinent positive or pertinent negative responses have been documented in the HPI. ROS Other: All systems not noted in ROS Statement are negative. Constitutional: Denies: fever, chills Respiratory: Reports: dyspnea. Denies: cough, wheezes Cardiovascular: Denies: chest pain, palpitations Gastrointestinal: Denies: abdominal pain, nausea, vomiting, diarrhea, melena, hematochezia Genitourinary: Denies: dysuria, hematuria Musculoskeletal: Denies: back pain Skin: Denies: rash Neurological: Denies: headache, weakness Past Medical History Past Medical History: Atrial Flutter, Asthma, Cancer, COPD, CVA/TIA, GERD/Reflux, GI Bleed, Hyperlipidemia, Hypertension, Memory Impairment, Myocardial Infarction ([place]), Osteoarthritis (OA), Renal Disease, Rheumatoid Arthritis (RA) Additional Past Medical History / Comment(s): Chronic cough. Back pain, matt jaycob. residual from stroke,Occasional slight difficulty with swallowing. Hx gastic ulcer, H-Pylori, diverticulitis, hx melanoma on face X2. Hx kidney stones, "kidney function low", raynauds disease. recent stress test at Dr Castorena's office pt had chest pain-transferred to hospital heart cath unable to place stent at that time per pt. Last Myocardial Infarction Date:: 2012 History of Any Multi-Drug Resistant Organisms: None Reported Past Surgical History: Back Surgery, Cholecystectomy, Heart Catheterization, Hysterectomy, Joint Replacement, Orthopedic Surgery Additional Past Surgical History / Comment(s): RODS & CAGES IN BACK, RIGHT HIP REPLACEMENT, PARTIAL THYROIDECTOMY, BILATERAL KNEE REPLACEMENTS, NECK SURGERY WITH LIDIA AND CAGES, MELANOMA REMOVED FROM FACE X4, REPAIR OF HEMATOMA/FEMORAL ARTERY AFTER HEART CATHETERIZATION,rt foot bone spur removed Past Anesthesia/Blood Transfusion Reactions: Previous Problems w/ Anesthesia, Postoperative Nausea & Vomiting (PONV) Additional Past Anesthesia/Blood Transfusion Reaction / Comment(s): Hard to wake up. Past Psychological History: No Psychological Hx Reported Smoking Status: Never smoker Past Alcohol Use History: None Reported Past Drug Use History: None Reported - Past Family History Sister(s) Family Medical History: Cancer Brother(s) Family Medical History: Cancer Mother Family Medical History: Myocardial Infarction ([place]) Additional Family Medical History / Comment(s): Mother of a [place] at the age of 76yrs. Father History Unknown: Yes Family Medical History: Chest Pain / Angina General Exam Limitations: no limitations General appearance: alert, in no apparent distress Head exam: Present: atraumatic, normocephalic Eye exam: Present: normal appearance. Absent: scleral icterus, conjunctival injection ENT exam: Present: normal oropharynx Neck exam: Present: normal inspection Respiratory exam: Present: rales (Bilateral bases). Absent: respiratory distress, wheezes, rhonchi, stridor, accessory muscle use Cardiovascular Exam: Present: regular rate, normal rhythm, normal heart sounds. Absent: systolic murmur, diastolic murmur, rubs, gallop GI/Abdominal exam: Present: soft. Absent: distended, tenderness, guarding, rebound, rigid, mass Extremities exam: Present: normal inspection, normal capillary refill. Absent: pedal edema, calf tenderness Back exam: Present: normal inspection. Absent: CVA tenderness (R), CVA tenderness (L) Neurological exam: Present: alert Skin exam: Present: warm, dry, intact, normal color. Absent: rash Course Vital Signs 03/01/25 03/01/25 03/01/25 05:01 05:31 06:42 Temperature 97.1 F L Pulse Rate 95 102 H Respiratory 22 22 Rate Blood Pressure 134/103 108/93 O2 Sat by Pulse 100 97 Oximetry Fraction of Inspired Oxygen (FIO2) 03/01/25 03/01/25 03/01/25 07:23 07:40 07:48 Temperature Pulse Rate 103 H 94 110 H Respiratory 22 Rate Blood Pressure 137/118 O2 Sat by Pulse 100 Oximetry Fraction of Inspired Oxygen (FIO2) 03/01/25 03/01/25 03/01/25 08:25 09:47 10:08 Temperature Pulse Rate 101 H 133 H Respiratory 22 24 Rate Blood Pressure 133/74 O2 Sat by Pulse 100 93 L Oximetry Fraction of 80 Inspired Oxygen (FIO2) 03/01/25 10:13 Temperature Pulse Rate Respiratory Rate Blood Pressure O2 Sat by Pulse Oximetry Fraction of 60 Inspired Oxygen (FIO2) Medical Decision Making - Medical Decision Making Patient is 79-year-old woman with history of COPD and CHF who presents with worsening dyspnea. Clinically the patient does appear to have element of congestive heart failure. Patient may have some developing pneumonia as well. The patient is given empiric antibiotics, but fluids at less than sepsis rate due to BNP being at her highest level. The patient had chest x-ray that I interpreted as showing possible bilateral infiltrates. No pneumothorax. Was pt. sent in by a medical professional or institution (, PA, MOUNTING MACHINE OPERATOR, urgent care, hospital, or long term...) When possible be specific @ -[No] Did you speak to anyone other than the patient for history (EMS, parent, family, police, friend...)? What history was obtained from this source @ -[No] Did you review nursing and triage notes (agree or disagree)? Why? @ -[I reviewed and agree with nursing and triage notes] Were old charts reviewed (outside hosp., previous admission, EMS record, old EKG, old radiological studies, urgent care reports/EKG's, long term records)? Report findings @ -[Yes, old charts were reviewed] Differential Diagnosis (chest pain, altered mental status, abdominal pain women, abdominal pain men, vaginal bleeding, weakness, fever, dyspnea, syncope, headache, dizziness, GI bleed, back pain, seizure, CVA, palpatations, mental he alth, musculoskeletal)? @ -[Differential Dyspnea: Coronary syndrome, arrhythmia, tamponade, asthma, COPD, pulmonary embolism, pneumonia, pneumothorax, pulmonary effusion, anaphylaxis, diabetic ketoacidosis, flailed chest, pulmonary contusion, diaphragmatic rupture, anemia, neuromuscular, this is not meant to be an all-inclusive list. EKG interpreted by me (3pts min.). @ -[I interpreted as above] X-rays interpreted by me (1pt min.). @ -[I interpreted as above CT interpreted by me (1pt min.). @ -[None done] U/S interpreted by me (1pt. min.). @ -[None done] What testing was considered but not performed or refused? (CT, X-rays, U/S, labs)? Why? @ -[None] What meds were considered but not given or refused? Why? @ -[None] Did you discuss the management of the patient with other professionals (professionals i.e. , PA, MOUNTING MACHINE OPERATOR, lab, RT, psych nurse, transition social worker, embroiderer hand, teacher, cavalry officer, human services case manager)? Give summary @ -[Case discussed with admitting physician and treatment recommendations incorporated Was smoking cessation discussed for >3mins.? @ -[No] Was critical care preformed (if so, how long)? @ -[Yes, 35 minutes Were there social determinants of health that impacted care today? How? (Homelessness, low income, unemployed, alcoholism, drug addiction, transportatio n, low edu. Level, literacy, decrease access to med. care, nursing home, rehab)? @ -[No] Was there de-escalation of care discussed even if they declined (Discuss DNR or withdrawal of care, Hospice)? DNR status @ -[No] What co-morbidities impacted this encounter? (DM, HTN, Smoking, COPD, CAD, Cancer, CVA, ARF, Chemo, Hep., AIDS, mental health diagnosis, sleep apnea, morbid obesity)? @ -[COPD, congestive heart failure Was patient admitted / discharged? Hospital course, mention meds given and route, prescriptions, significant lab abnormalities, going to OR and other pertinent info. @ -[Patient is 79-year-old woman here with dyspnea, multifactorial, there is element of congestive heart failure, COPD, and suspect developing pneumonia. The patient also with evidence of sepsis, treatment is started and patient admitted Undiagnosed new problem with uncertain prognosis? @ -[No] Drug Therapy requiring intensive monitoring for toxicity (Heparin, Nitro, Insulin, Cardizem)? @ -[No] Were any procedures done? @ -[No] Diagnosis/symptom? @ -[Acute dyspnea Acute exacerbation of congestive heart failure Acute exacerbation of COPD Probable pneumonia Sepsis Acute, or Chronic, or Acute on Chronic? @ -[Acute Uncomplicated (without systemic symptoms) or Complicated (systemic symptoms)? @ -[Complicated Side effects of treatment? @ -[No] Exacerbation, Progression, or Severe Exacerbation? @ -[No] Poses a threat to life or bodily function? How? (Chest pain, [place], [place], pneumonia, PE, COPD, DKA, ARF, appy, cholecystitis, CVA, Diverticulitis, Homicidal, Suicidal, threat to staff... and all critical care pts) @ -[Yes there is high risk of morbidity and mortality associated with sepsis and congestive heart failure All treatments are based on ideal body weight as in ED triage - Lab Data Result diagrams: 03/01/25 05:32 03/01/25 05:32 Lab Results 03/01/25 03/01/25 03/01/25 Range/Units 05:32 05:32 05:32 WBC 25.17 H (4.50-10.00) 10*3/uL RBC 3.57 L (4.10-5.20) 10*6/uL Hgb 11.4 L (12.0-15.0) g/dL Hct 35.9 L (37.2-46.3) % MCV 100.6 H (80.0-97.0) fL MCH 31.9 (27.0-32.0) pg MCHC 31.8 L (32.0-37.0) g/dL Plt Count 105 L (140-440) 10*3/uL MPV 12.7 H (9.5-12.2) fL Immature Gran % (Auto) 2.7 % Neutrophils % 90.2 % Lymphocytes % 3.3 % Monocytes % 3.6 % Eosinophils % 0.0 % Basophils % 0.2 % Immature Gran # 0.67 H (0.00-0.04) 10*3/uL Neutrophils # 22.71 H (1.80-7.70) 10*3/uL Lymphocytes # 0.83 L (0.90-5.00) 10*3/uL Monocytes # 0.90 (0.20-1.00) 10*3/uL Eosinophils # 0.00 L (0.04-0.35) 10*3/uL Basophils # 0.06 (0.00-0.10) 10*3/uL Immature Plt Fraction 11.8 H (1.1-6.1) % PT 16.3 H (10.0-12.5) sec INR 1.6 H (<1.2) APTT 21.2 L (22.0-30.0) sec Sodium 141 (137-145) mmol/L Potassium 4.8 (3.5-5.1) mmol/L Chloride 102 (98-107) mmol/L Carbon Dioxide 22 (22-30) mmol/L Anion Gap 17 mmol/L BUN 63 H (7-17) mg/dL Creatinine 1.44 H (0.52-1.04) mg/dL Est GFR (CKD-EPI)AfAm 40 (>60 ml/min/1.73 sqM) Est GFR (CKD-EPI)NonAf 35 (>60 ml/min/1.73 sqM) Glucose 75 (74-99) mg/dL Lactic Ac Sepsis Rflx Plasma Lactic Acid Chris (0.7-2.0) mmol/L Calcium 9.1 (8.4-10.2) mg/dL Total Bilirubin 2.6 H (0.2-1.3) mg/dL AST 495 H (14-36) U/L ALT 347 H (4-34) U/L Alkaline Phosphatase 127 H (38-126) U/L Troponin I (0.000-0.034) ng/mL NT-Pro-B Natriuret Pep 02501 pg/mL Total Protein 6.6 (6.3-8.2) g/dL Albumin 4.1 (3.5-5.0) g/dL Procalcitonin (0.02-0.50) ng/mL Hepatitis A IgM Ab (Nonreactive) Hep Bs Antigen (Nonreactive) Hep B Core IgM Ab (Nonreactive) Hep C IgG Ab (Nonreactive) 03/01/25 03/01/25 03/01/25 Range/Units 05:32 05:32 05:32 WBC (4.50-10.00) 10*3/uL RBC (4.10-5.20) 10*6/uL Hgb (12.0-15.0) g/dL Hct (37.2-46.3) % MCV (80.0-97.0) fL MCH (27.0-32.0) pg MCHC (32.0-37.0) g/dL Plt Count (140-440) 10*3/uL MPV (9.5-12.2) fL Immature Gran % (Auto) % Neutrophils % % Lymphocytes % % Monocytes % % Eosinophils % % Basophils % % Immature Gran # (0.00-0.04) 10*3/uL Neutrophils # (1.80-7.70) 10*3/uL Lymphocytes # (0.90-5.00) 10*3/uL Monocytes # (0.20-1.00) 10*3/uL Eosinophils # (0.04-0.35) 10*3/uL Basophils # (0.00-0.10) 10*3/uL Immature Plt Fraction (1.1-6.1) % PT (10.0-12.5) sec INR (<1.2) APTT (22.0-30.0) sec Sodium (137-145) mmol/L Potassium (3.5-5.1) mmol/L Chloride (98-107) mmol/L Carbon Dioxide (22-30) mmol/L Anion Gap mmol/L BUN (7-17) mg/dL Creatinine (0.52-1.04) mg/dL Est GFR (CKD-EPI)AfAm (>60 ml/min/1.73 sqM) Est GFR (CKD-EPI)NonAf (>60 ml/min/1.73 sqM) Glucose (74-99) mg/dL Lactic Ac Sepsis Rflx Plasma Lactic Acid Chris 6.7 H* (0.7-2.0) mmol/L Calcium (8.4-10.2) mg/dL Total Bilirubin (0.2-1.3) mg/dL AST (14-36) U/L ALT (4-34) U/L Alkaline Phosphatase (38-126) U/L Troponin I 0.119 H* (0.000-0.034) ng/mL NT-Pro-B Natriuret Pep pg/mL Total Protein (6.3-8.2) g/dL Albumin (3.5-5.0) g/dL Procalcitonin <0.20 (0.02-0.50) ng/mL Hepatitis A IgM Ab (Nonreactive) Hep Bs Antigen (Nonreactive) Hep B Core IgM Ab (Nonreactive) Hep C IgG Ab (Nonreactive) 03/01/25 03/01/25 Range/Units 05:32 06:13 WBC (4.50-10.00) 10*3/uL RBC (4.10-5.20) 10*6/uL Hgb (12.0-15.0) g/dL Hct (37.2-46.3) % MCV (80.0-97.0) fL MCH (27.0-32.0) pg MCHC (32.0-37.0) g/dL Plt Count (140-440) 10*3/uL MPV (9.5-12.2) fL Immature Gran % (Auto) % Neutrophils % % Lymphocytes % % Monocytes % % Eosinophils % % Basophils % % Immature Gran # (0.00-0.04) 10*3/uL Neutrophils # (1.80-7.70) 10*3/uL Lymphocytes # (0.90-5.00) 10*3/uL Monocytes # (0.20-1.00) 10*3/uL Eosinophils # (0.04-0.35) 10*3/uL Basophils # (0.00-0.10) 10*3/uL Immature Plt Fraction (1.1-6.1) % PT (10.0-12.5) sec INR (<1.2) APTT (22.0-30.0) sec Sodium (137-145) mmol/L Potassium (3.5-5.1) mmol/L Chloride (98-107) mmol/L Carbon Dioxide (22-30) mmol/L Anion Gap mmol/L BUN (7-17) mg/dL Creatinine (0.52-1.04) mg/dL Est GFR (CKD-EPI)AfAm (>60 ml/min/1.73 sqM) Est GFR (CKD-EPI)NonAf (>60 ml/min/1.73 sqM) Glucose (74-99) mg/dL Lactic Ac Sepsis Rflx Y Plasma Lactic Acid Chris (0.7-2.0) mmol/L Calcium (8.4-10.2) mg/dL Total Bilirubin (0.2-1.3) mg/dL AST (14-36) U/L ALT (4-34) U/L Alkaline Phosphatase (38-126) U/L Troponin I (0.000-0.034) ng/mL NT-Pro-B Natriuret Pep pg/mL Total Protein (6.3-8.2) g/dL Albumin (3.5-5.0) g/dL Procalcitonin (0.02-0.50) ng/mL Hepatitis A IgM Ab Nonreactive (Nonreactive) Hep Bs Antigen Nonreactive (Nonreactive) Hep B Core IgM Ab Nonreactive (Nonreactive) Hep C IgG Ab Nonreactive (Nonreactive) - EKG Data -: EKG Interpreted by [facility] EKG shows normal: axis (Left axis deviation), intervals (QRS duration 146 ms, consistent with intraventricular conduction delay), QRS complexes (Interventricular conduction delay) Rate: tachycardia (Rate 101 bpm) Interpretation: other (Underlying rhythm is atrial fibrillation) Disposition Clinical Impression: CHF exacerbation, COPD exacerbation, Sepsis, Pneumonia, Lactic acidosis Disposition: Condition: Serious Is patient prescribed a controlled substance at d/c from ED?: No Preliminary Cause of : Cardiopulmonary arrest
--- NOTE | 2025-03-01 06:59 | XR ---
EXAMINATION TYPE: XR chest 2V DATE OF EXAM: 03/01/2025 CLINICAL INDICATION: Female, 79 years old with history of difficulty breathing, TECHNIQUE: Frontal and lateral views of the chest are obtained. COMPARISON: Chest x-ray February 25, 2025 FINDINGS: Persistent bilateral focal increased opacities upper lungs. No pleural effusion or pneumoth orax seen bilaterally. Persistent cardiomegaly. Surgical change to the cervical spine is redemonstrat ed. IMPRESSION: Persistent cardiomegaly with bilateral upper lung acute infiltrates and/or atelectasis. [facility], , 03/01/2025 6:56 AM
[2025-03-01 07:17] LABS: Partial Thromboplastin Time 21.2 sec (22.0-30.0)
[2025-03-01] MEDS ORDERED: ALBUTEROL NEBULIZED 2.5 MG/3 ML INHALATION PRN (07:22)
[2025-03-01] MEDS: IPRATROPIUM-ALBUTEROL 3 ML NEB INHALATION SCH (07:37)
[2025-03-01] MEDS: SYMBICORT 160-4.5 MCG INHALER INHALATION SCH (07:39)
[2025-03-01] MEDS ORDERED: VANCOMYCIN IV PER PHARMACY 1 EACH MISC MISCELLANE PRN (08:01)
[2025-03-01 08:26] VITALS: BP 133/74
[2025-03-01] MEDS: SPIRONOLACTONE 25 MG TAB PO SCH (08:27)
[2025-03-01] MEDS: METOPROLOL TARTRATE 12.5 MG TAB PO SCH (08:27)
[2025-03-01] MEDS: PANTOPRAZOLE 40 MG TABLET PO SCH (08:27)
[2025-03-01] MEDS: PREGABALIN 100 MG CAP PO SCH (08:27)
[2025-03-01] MEDS: CHOLECALCIFEROL 25 MCG (1000 IU) TABLET PO SCH (08:27)
[2025-03-01] MEDS: FUROSEMIDE 40 MG TAB PO SCH (08:27)
[2025-03-01] MEDS: CLOPIDOGREL 75 MG TAB PO SCH (08:28)
[2025-03-01] MEDS: SODIUM CHLORIDE 0.9% 1,000 ML IV SCH (08:31)
--- NOTE | 2025-03-01 08:37 | US ---
EXAMINATION TYPE: US abdomen limited DATE OF EXAM: 03/01/2025 COMPARISON: CT abdomen and pelvis 02/17/2025, renal ultrasound 05/03/2024, abdominal ultrasound 12/10/19 CLINICAL INDICATION: Female, 79 years old with history of elevated liver ezymes; abd pain TECHNIQUE: Grayscale and color Doppler imaging of the right upper quadrant. FINDINGS: EXAM MEASUREMENTS: Liver Length: 15.5 cm Gallbladder Wall: Surgically absent CBD: 0.5 cm, color Doppler imaging was utilized to isolate the common bile duct for measurement. Right Kidney: 9.7x4.8x4.6 cm [employer] NOTES: very limited exam due to pt unable to lay flat, difficulty breathing and constantl y stopping exam due to bowel issues Pancreas: Tail obscured by overlying bowel gas Liver: Anechoic area seen(lt lobe): 0.7x0.4x0.7cm previous:1.1x0.5x1.2cm obscured by bowel, difficult to penetrate, limited visibility due to pt unable to hold breath or lay flat Gallbladder: Surgically absent CBD: wnl Right Kidney: Anechoic area seen: 3.4x3.1x3.2cm previous: 2.8x2.9x2.9cm The visualized portions of the pancreas are unremarkable. The liver is difficult to penetrate without overt surface nodularity. There is a simple appearing subcentimeter cyst within the left hepatic lob e. Gallbladder is surgically absent. Common bile duct is within normal limits. Right kidney demonstra inés no hydronephrosis, solid mass, or shadowing calculus. Slightly increased size of right renal simp le cyst. No follow-up recommended. IMPRESSION: 1. No ultrasound evidence for acute process. 2. Hepatic and right renal simple appearing cysts redemonstrated. 3. Postcholecystectomy changes. [facility], , 03/01/2025 8:34 AM
[2025-03-01] MEDS: AZITHROMYCIN 500 MG in SODIUM CHLORIDE 0.9% 250 ML IVPB STA (09:13)
[2025-03-01 09:48] VITALS: PULSE 133; RESP 24
[2025-03-01] MEDS: MORPHINE SULFATE 2 MG/ML SYRINGE IVP STA (10:02)
[2025-03-01] MEDS: MORPHINE SULFATE 4 MG/ML SYRINGE IVP STA (10:04)
[2025-03-01] MEDS: VANCOMYCIN 1,500 MG in SODIUM CHLORIDE 0.9% 500 ML 500 ML IVPB ONE (10:09)
[2025-03-01] MEDS: MORPHINE SULFATE 100 MG in SODIUM CHLORIDE 0.9% 90 ML IV SCH (11:05)
--- NOTE | 2025-03-01 11:16 | P.CNPUL ---
History of Present Illness Consult date: 03/01/25 Requesting physician: Dex Mcneal Reason for consult: dyspnea, hypoxemia, pleural effusion, abnormal CXR/CT Chief complaint: Shortness of breath, weakness. History of present illness: Pulmonary consult dated March 01, 2025. 79-year-old female well-known to our service. The patient was seen in the emergency department, on March 01, beginning at 5:00 in the morning. The patient was recently inpatient here between February 12, and February 27. At that time, the patient was seen primarily for a COPD exacerbation. The patient presented to the emergency department, via EMS, with complaints of shortness of breath, and profound weakness. She was discharged on February 27 as mentioned above. The patient on this admission, appears to have primarily CHF. BNP was quite high. Chest x- ray was consistent with fluid overload. The patient's was at the bedside. He was on 4 L nasal cannula. She was very weak, not really able to give much history. She was getting saline 20 cc an hour, which I asked the nurse to stop. The patient was having atrial fibrillation with RVR, and congestive heart failure. A procalcitonin levels pending. The patient was placed empirically on cefepime and vancomycin. White count was 25.2, hemoglobin 9.4, macro 35.9, and platelet count was 105,000. PT 16.3, INR 1.6, PTT was 21.2. Sodium 141, potassium 4.8, chlorides 102, CO2 22, anion gap 17, BUN 63, creatinine 1.44. Lactic acid was 6.7. Repeat was 6.6. AST was 495. ALT was 347. Troponin was 0.119. N-terminal proBNP was 23,100. Chest x-ray was consistent with cardiomegaly, and fluid overload in my opinion. Review of Systems REVIEW OF SYSTEMS: CONSTITUTIONAL: Weakness. NEUROLOGIC: [ Negative.] HEENT: [ Negative.] CARDIAC: [Negative.] PULMONARY: Shortness of breath. GI: [Negative.] : [Negative.] RHEUMATOLOGIC: [ Negative.] IMMUNOLOGIC: [ Negative.] ENDOCRINE: [Negative. ] DERMATOLOGIC: [Negative.] Past Medical History Past Medical History: Atrial Flutter, Asthma, Cancer, COPD, CVA/TIA, GERD/Reflux, GI Bleed, Hyperlipidemia, Hypertension, Memory Impairment, Myocardial Infarction (ND), Osteoarthritis (OA), Renal Disease, Rheumatoid Arthritis (RA) Additional Past Medical History / Comment(s): Chronic cough. Back pain, migraines. residual from stroke,Occasional slight difficulty with swallowing. Hx gastic ulcer, H-Pylori, diverticulitis, hx melanoma on face X2. Hx kidney stones, "kidney function low", raynauds disease. recent stress test at Dr Castorena's office pt had chest pain-transferred to hospital heart cath unable to place stent at that time per pt. Last Myocardial Infarction Date:: 2012 History of Any Multi-Drug Resistant Organisms: None Reported Past Surgical History: Back Surgery, Cholecystectomy, Heart Catheterization, Hysterectomy, Joint Replacement, Orthopedic Surgery Additional Past Surgical History / Comment(s): RODS & CAGES IN BACK, RIGHT HIP REPLACEMENT, PARTIAL THYROIDECTOMY, BILATERAL KNEE REPLACEMENTS, NECK SURGERY WITH LIDIA AND CAGES, MELANOMA REMOVED FROM FACE X4, REPAIR OF HEMATOMA/FEMORAL ARTERY AFTER HEART CATHETERIZATION,rt foot bone spur removed Past Anesthesia/Blood Transfusion Reactions: Previous Problems w/ Anesthesia, Postoperative Nausea & Vomiting (PONV) Additional Past Anesthesia/Blood Transfusion Reaction / Comment(s): Hard to wake up. Past Psychological History: No Psychological Hx Reported Smoking Status: Never smoker Past Alcohol Use History: None Reported Past Drug Use History: None Reported - Past Family History Sister(s) Family Medical History: Cancer Brother(s) Family Medical History: Cancer Mother Family Medical History: Myocardial Infarction (ND) Additional Family Medical History / Comment(s): Mother of a ND at the age of 76yrs. Father History Unknown: Yes Family Medical History: Chest Pain / Angina Medications and Allergies Home Medications Medication Instructions Recorded Confirmed Type Pantoprazole Sodium [Protonix] 40 mg PO BID 05/14/14 03/01/25 History Cyanocobalamin (Vitamin B-12) 1,000 mcg PO DAILY 06/16/22 03/01/25 History [Vitamin B-12] DULoxetine HCL [Cymbalta] 60 mg PO DAILY 07/27/23 03/01/25 History Pregabalin [Lyrica] 100 mg PO BID #6 cap 08/04/23 03/01/25 Rx Albuterol Inhaler [Ventolin Hfa 2 puff INHALATION RT-Q6H PRN 12/22/23 03/01/25 History Inhaler] Cholecalciferol (Vitamin D3) 50 mcg PO DAILY 12/22/23 03/01/25 History [Vitamin D3 (50 Mcg = 2000 Iu)] Atorvastatin [Lipitor] 40 mg PO HS #90 tab 12/25/23 03/01/25 Rx Clopidogrel [Plavix] 75 mg PO DAILY #90 tab 01/06/24 03/01/25 Rx Furosemide [Lasix] 40 mg PO DAILY 30 Days #30 tab 05/08/24 03/01/25 Rx Ipratropium-Albuterol Nebulize 3 ml INHALATION RT-QID 01/12/25 03/01/25 History [Duoneb 0.5 mg-3 mg/3 ml Soln] Metoprolol Tartrate [Lopressor] 12.5 mg PO BID 01/12/25 03/01/25 History calcitrioL [Rocaltrol] 0.25 mcg PO MOTH 01/12/25 03/01/25 History estradioL [Estrace] 1 mg PO DAILY 01/12/25 03/01/25 History Benzonatate [Tessalon Perles] 200 mg PO TID PRN #30 cap 01/18/25 03/01/25 Rx Budesonide-Formot 160-4.5 Mcg 2 puff INHALATION RT-BID #2 each 01/18/25 03/01/25 Rx [Symbicort 160-4.5 Mcg Inhaler] Montelukast [Singulair] 10 mg PO HS #30 tab 01/18/25 03/01/25 Rx Cephalexin [Keflex] 500 mg PO Q8HR 10 Days #30 cap 02/27/25 03/01/25 Rx Fluconazole [Diflucan] 200 mg PO DAILY 10 Days #10 tablet 02/27/25 03/01/25 Rx Spironolactone [Aldactone] 12.5 mg PO DAILY #90 tab 02/27/25 03/01/25 Rx predniSONE See Taper PO DIRECTED 20 Days 02/27/25 03/01/25 Rx #50 tab Allergies Allergy/AdvReac Type Severity Reaction Status Date / Time cephalexin monohydrate Allergy Rash/Hives Verified 03/01/25 10:05 [From Keflex] diphenhydramine HCl Allergy SWELLING Verified 03/01/25 10:05 [From Benadryl] OF TONGUE, SOB enoxaparin [From Lovenox] Allergy Rash/Hives Verified 03/01/25 10:05 Penicillins Allergy SWELLING, Verified 03/01/25 10:05 HIVES sulfamethoxazole Allergy Anaphylaxis, Verified 03/01/25 10:05 [From Bactrim] Swelling trimethoprim [From Bactrim] Allergy Anaphylaxis, Verified 03/01/25 10:05 Swelling aspirin AdvReac EXCESS Verified 03/01/25 10:05 BLEEDING milk AdvReac Abdominal Verified 03/01/25 10:05 Pain morphine AdvReac Vomiting Verified 03/01/25 10:05 milk chocolate AdvReac Nausea Uncoded 03/01/25 10:05 Physical Exam Osteopathic Statement: *. No significant issues noted on an osteopathic structural exam other than those noted in the History and Physical/Consult. Vitals: Vital Signs Temp Pulse Resp BP Pulse Ox FiO2 03/01/25 10:13 60 03/01/25 10:08 80 03/01/25 09:47 133 H 24 93 L 03/01/25 08:25 101 H 22 133/74 100 03/01/25 07:48 110 H 03/01/25 07:40 94 03/01/25 07:23 103 H 22 137/118 100 03/01/25 06:42 102 H 22 108/93 97 03/01/25 05:31 97.1 F L 03/01/25 05:01 95 22 134/103 100 Intake and Output 02/28/25 03/01/25 03/01/25 22:59 06:59 14:59 Other: Weight 78.471 kg Very weak, moaning, not able to give much history. Much of the history is obtained from the . HEENT examination is grossly unremarkable. Neck supple. Full range of motion. No adenopathy thyromegaly or neck vein distention. Cardiovascular examination reveals an irregular rhythm and rate. S1-S2 normal. No S3 or S4. No discernible murmur noted. Heart sounds are distant. Lungs reveal bibasilar crackles. No rhonchi. No wheezes. Breath sounds are equal bilaterally but diminished throughout. Abdomen soft bowel sounds are heard. No masses or tenderness. Extremities are intact. No cyanosis or clubbing. Mild edema. Skin is without rash or lesion. Neurologic examination is difficult to evaluate. The patient is very lethargic. Results - Laboratory Findings CBC and BMP: 03/01/25 05:32 03/01/25 05:32 PT/INR, D-dimer PT 16.3 sec (10.0-12.5) H 03/01/25 05:32 INR 1.6 (<1.2) H 03/01/25 05:32 Abnormal lab findings: Abnormal Labs 03/01/25 03/01/25 03/01/25 05:32 05:32 05:32 WBC 25.17 H RBC 3.57 L Hgb 11.4 L Hct 35.9 L MCV 100.6 H MCHC 31.8 L Plt Count 105 L MPV 12.7 H Immature Gran # 0.67 H Neutrophils # 22.71 H Lymphocytes # 0.83 L Eosinophils # 0.00 L Immature Plt Fraction 11.8 H PT 16.3 H INR 1.6 H APTT 21.2 L BUN 63 H Creatinine 1.44 H Plasma Lactic Acid Chris Total Bilirubin 2.6 H AST 495 H ALT 347 H Alkaline Phosphatase 127 H Troponin I 03/01/25 03/01/25 03/01/25 05:32 05:32 08:38 WBC RBC Hgb Hct MCV MCHC Plt Count MPV Immature Gran # Neutrophils # Lymphocytes # Eosinophils # Immature Plt Fraction PT INR APTT BUN Creatinine Plasma Lactic Acid Chris 6.7 H* 6.6 H* Total Bilirubin AST ALT Alkaline Phosphatase Troponin I 0.119 H* - Diagnostic Findings Chest x-ray: image reviewed Assessment and Plan Assessment: Acute hypoxemic respiratory failure, multifactorial, likely related to CHF, atrial fibrillation, and possibly COPD exacerbation. Recent admission to the hospital, between February 12 and February 27, with a COPD exacerbation. Recent bronchoscopy, February 20, revealing methicillin sensitive Staph aureus i nfection. History of severe COPD, oxygen dependent. History of atrial fibrillation/flutter. History of CVA. History of gastroesophageal reflux disease. History of hyperlipidemia. History of hypertension. Prior history of myocardial infarction. History of rheumatoid arthritis. Multiple other medical problems and comorbidities. Plan: Plan dated March 01, 2025. The patient is seen today in the emergency department, room 27. She is currently on 4 L of oxygen. Her is at the bedside. The patient was discharged after a long hospitalization, in February 27. She was in the hospital between February 12 and February 27. The patient presented with shortness of breath, and weakness. She was in atrial fibrillation. Chest x-ray and blood work suggested CHF. The patient really was not able to give much history. Most of the history came from the . Labs, x-rays, and medications are reviewed. The patient apparently decided to be a no code patient, and furthermore, a comfort care patient. Moving forward, we will see the patient as needed. Prognosis is poor. Dictation was produced using [employer] dictation software. Please excuse any grammatical, word or spelling errors. Time with Patient: Greater than 30
--- NOTE | 2025-03-01 13:49 | P.HPIM ---
History of Present Illness H&P Date: 03/01/25 Patient is a very pleasant 79-year-old female with a past medical history of CAD status post recent stenting, chronic persistent atrial fibrillation on anticoagulation with Coumadin, chronic systolic heart failure with previously known EF of 30 to 35%, hypertension, COPD with chronic hypoxic respiratory failure home oxygen dependent on 2 L at all times, and stage IIIb chronic kidney disease, recent right lateral wall abdominal hematoma with drainage,. She follows with [facility]. Dr. Bajwa and PCP Dr. Mcneal Patient was discharged from our institution on 02/27/2025 after being treated for acute on chronic shortness of breath secondary to acute purulent tracheobronchitis, acute on chronic systolic heart failure with EF improved to 50%, patient was taken for bronchoscopy on 02/21/2025, lots of thick secretions removed, bronchial wash cultures positive for MSSA and Jigna, treated with fluconazole, nystatin swish and swallow, initially on vancomycin that was switched to cefazolin, discharged home with Keflex, prednisone taper, Aldactone 12.5 mg daily, warfarin was on hold as well as recommendation to follow-up with PCP regarding palliative care/hospice. Patient denies associated chest pain, palpitations, worsening lower extremity swelling, changes in bowel habits, dysuria, fevers, chills.. Upon my examination, patient has been saying " let me go, make me comfortable" t hus, we discussed comfort measures option as well as hospice care. Initially, she was not interested in and requested to be medically managed to begin with. I specifically mentioned that we might be running out of our therapeutic options and she should strongly consider hospice care, her agreed, and left the patient and her to think about it. Patient stated that she is DNR/DNI. Rapid response was called later due to respiratory distress. Upon my arrival, patient appears in acute distress, cyanotic, SpO2 in 70s on nasal cannula, complains of worsening right-sided abdominal pain, severe dyspnea. Patient verbalized that she is dying. I asked if she would like to proceed with comfort measures only, patient and her agreed, orders placed for morphine for respiratory distress. Patient started showing signs of agonal breathing and eventually at 1052 on 03/01/2025, patient present at bedside. Patient was DNR/DNI and INCIDENT MANAGER at time of . on arrival afebrile, heart rate in 90s, BP elevated 134/103, SPO2 100% on 2 L nasal cannula Lab work significant for leukocytosis 25.17, was discharged with normal WBC count, hemoglobin 11.4, stable, platelet count 105, down from 174 at discharge, INR 1.6, sodium, potassium, bicarb normal, creatinine 1. 44, up from 1. 22 at discharge, lactic acid 6.7, AST and ALT acutely elevated at 495 and 347 accordingly, previously normal on 02/25/2025, [id number] [place] [id number] during previous admission, troponin 0.119, Chest x-ray showed cardiomegaly, bilateral upper lung infiltratessigns of fluid overload, interpreted independently Pertinent positives and negatives as discussed in HPI, a complete review of systems was performed and all other systems are negative. Patient seen and examined at bedside. [] Vital signs reviewed General: nontoxic, no distress, appears at stated age Derm: warm, dry Head: atraumatic, normocephalic, symmetric Eyes: EOMI, no lid lag, anicteric sclera, pupils equal round reactive to light ENT: Nose and ears atraumatic Neck: No thyromegaly, supple Mouth: no lip lesion, mucus membranes moist Cardiovascular: S1S2 reg, no murmur, no edema Lungs: Diminished breath sounds bilaterally, mild end expiratory wheezes Abdominal: Tender to palpation, right-sided abdominal mass palpated Ext: no gross muscle atrophy, muscle strength muscle strength 5 out of 5 in all 4 extremities, no contractures Neuro: CN II-XII grossly intact Psych: Alert, oriented, appropriate affect Assessment/Plan: Sepsis possibly due to HCAP in the settings of recent hospitalization, bronchoscopy, antibiotics use Acute on chronic hypoxic respiratory failure secondary fluid overload Oxygen dependent COPD Bronchial asthma Pulmonary hypertension Recent purulent tracheobronchitis Recent diagnosis of oral thrush -Pulmonology consulted, appreciate recommendations -Start vancomycin, pharmacy to dose, monitor renal function daily for renal toxicity in the settings of known CKD 3 -Start cefepime 2 g every 8 hours, antibiotics SOT 03/01/2025 -Procalcitonin ordered and pending, blood cultures ordered and pending, MRSA nasal swab ordered and pending -CBC and CMP daily, repeat chest x-ray in the morning -Continue scheduled DuoNebs 4 times daily and every 6 hours as needed for wheezing/shortness of breath, Symbicort 160-4.5 mcg inhaler 2 puffs twice daily, and Singulair 10 mg nightly. - Continue fluconazole 200 mg daily and nystatin swish and swallow -Continue supplemental oxygen to maintain SpO2 equal to or greater than 90%. --Patient was later transitioned to INCIDENT MANAGER and Acute HFrEF, EF recovered to 50% 10/2024 Elevated troponin, likely secondary to type II NSTEMI secondary to above Chronic persistent atrial fibrillation, Coumadin on hold secondary to abdominal wall hematoma Hypertension Hyperlipidemia History of CAD with stents placement -Cardiology consulted, appreciate recommendations --Daily weights and Close monitoring of I's and O's -Cardiac diet -Continue cardiac medication regimen with Plavix 75 mg daily, atorvastatin 40 mg nightly, Aldactone 12.5 mg daily and metoprolol 25 mg twice daily. CKD stage III a, at baseline Acutely elevated liver enzymes Hyperbilirubinemia -Abdominal ultrasound ordered and pending -Hepatitis panel ordered and pending -Monitor CMP daily MDD The patient is admitted with an anticipated greater than 2 midnight stay as inpatient status for evaluation of acute on chronic shortness of breath, CHF exacerbation, sepsis. CODE STATUS: DNR/DNI DVT prophylaxis: SCDs Anticipated discharge date: TBD Anticipated discharge place: TBD A total of 50 minutes was spent on the care of this complex patient more than 50 % of the time was spent in counseling and care coordination. Past Medical History Past Medical History: Atrial Flutter, Asthma, Cancer, COPD, CVA/TIA, GERD/Reflux, GI Bleed, Hyperlipidemia, Hypertension, Memory Impairment, Myocardial Infarction (CA), Osteoarthritis (OA), Renal Disease, Rheumatoid Arthritis (RA) Additional Past Medical History / Comment(s): Chronic cough. Back pain, migraines. residual from stroke,Occasional slight difficulty with swallowing. Hx gastic ulcer, H-Pylori, diverticulitis, hx melanoma on face X2. Hx kidney stones, "kidney function low", raynauds disease. recent stress test at Dr Castorena's office pt had chest pain-transferred to hospital heart cath unable to place stent at that time per pt. Last Myocardial Infarction Date:: 2012 History of Any Multi-Drug Resistant Organisms: None Reported Past Surgical History: Back Surgery, Cholecystectomy, Heart Catheterization, Hysterectomy, Joint Replacement, Orthopedic Surgery Additional Past Surgical History / Comment(s): RODS & CAGES IN BACK, RIGHT HIP REPLACEMENT, PARTIAL THYROIDECTOMY, BILATERAL KNEE REPLACEMENTS, NECK SURGERY WITH LIDIA AND CAGES, MELANOMA REMOVED FROM FACE X4, REPAIR OF HEMATOMA/FEMORAL ARTERY AFTER HEART CATHETERIZATION,rt foot bone spur removed Past Anesthesia/Blood Transfusion Reactions: Previous Problems w/ Anesthesia, Postoperative Nausea & Vomiting (PONV) Additional Past Anesthesia/Blood Transfusion Reaction / Comment(s): Hard to wake up. Past Psychological History: No Psychological Hx Reported Smoking Status: Never smoker Past Alcohol Use History: None Reported Past Drug Use History: None Reported - Past Family History Sister(s) Family Medical History: Cancer Brother(s) Family Medical History: Cancer Mother Family Medical History: Myocardial Infarction (CA) Additional Family Medical History / Comment(s): Mother of a CA at the age of 76yrs. Father History Unknown: Yes Family Medical History: Chest Pain / Angina Medications and Allergies Home Medications Medication Instructions Recorded Confirmed Type Pantoprazole Sodium [Protonix] 40 mg PO BID 05/14/14 03/01/25 History Cyanocobalamin (Vitamin B-12) 1,000 mcg PO DAILY 06/16/22 03/01/25 History [Vitamin B-12] DULoxetine HCL [Cymbalta] 60 mg PO DAILY 07/27/23 03/01/25 History Pregabalin [Lyrica] 100 mg PO BID #6 cap 08/04/23 03/01/25 Rx Albuterol Inhaler [Ventolin Hfa 2 puff INHALATION RT-Q6H PRN 12/22/23 03/01/25 History Inhaler] Cholecalciferol (Vitamin D3) 50 mcg PO DAILY 12/22/23 03/01/25 History [Vitamin D3 (50 Mcg = 2000 Iu)] Atorvastatin [Lipitor] 40 mg PO HS #90 tab 12/25/23 03/01/25 Rx Clopidogrel [Plavix] 75 mg PO DAILY #90 tab 01/06/24 03/01/25 Rx Furosemide [Lasix] 40 mg PO DAILY 30 Days #30 tab 05/08/24 03/01/25 Rx Ipratropium-Albuterol Nebulize 3 ml INHALATION RT-QID 01/12/25 03/01/25 History [Duoneb 0.5 mg-3 mg/3 ml Soln] Metoprolol Tartrate [Lopressor] 12.5 mg PO BID 01/12/25 03/01/25 History calcitrioL [Rocaltrol] 0.25 mcg PO MOTH 01/12/25 03/01/25 History estradioL [Estrace] 1 mg PO DAILY 01/12/25 03/01/25 History Benzonatate [Tessalon Perles] 200 mg PO TID PRN #30 cap 01/18/25 03/01/25 Rx Budesonide-Formot 160-4.5 Mcg 2 puff INHALATION RT-BID #2 each 01/18/25 03/01/25 Rx [Symbicort 160-4.5 Mcg Inhaler] Montelukast [Singulair] 10 mg PO HS #30 tab 01/18/25 03/01/25 Rx Cephalexin [Keflex] 500 mg PO Q8HR 10 Days #30 cap 02/27/25 03/01/25 Rx Fluconazole [Diflucan] 200 mg PO DAILY 10 Days #10 tablet 02/27/25 03/01/25 Rx Spironolactone [Aldactone] 12.5 mg PO DAILY #90 tab 02/27/25 03/01/25 Rx predniSONE See Taper PO DIRECTED 20 Days 02/27/25 03/01/25 Rx #50 tab Allergies Allergy/AdvReac Type Severity Reaction Status Date / Time cephalexin monohydrate Allergy Rash/Hives Verified 03/01/25 10:05 [From Keflex] diphenhydramine HCl Allergy SWELLING Verified 03/01/25 10:05 [From Benadryl] OF TONGUE, SOB enoxaparin [From Lovenox] Allergy Rash/Hives Verified 03/01/25 10:05 Penicillins Allergy SWELLING, Verified 03/01/25 10:05 HIVES sulfamethoxazole Allergy Anaphylaxis, Verified 03/01/25 10:05 [From Bactrim] Swelling trimethoprim [From Bactrim] Allergy Anaphylaxis, Verified 03/01/25 10:05 Swelling aspirin AdvReac EXCESS Verified 03/01/25 10:05 BLEEDING milk AdvReac Abdominal Verified 03/01/25 10:05 Pain morphine AdvReac Vomiting Verified 03/01/25 10:05 milk chocolate AdvReac Nausea Uncoded 03/01/25 10:05 Physical Exam Vitals: Vital Signs Temp Pulse Resp BP Pulse Ox 03/01/25 07:48 110 H 03/01/25 07:40 94 03/01/25 07:23 103 H 22 137/118 100 03/01/25 06:42 102 H 22 108/93 97 03/01/25 05:31 97.1 F L 03/01/25 05:01 95 22 134/103 100 Intake and Output 02/28/25 03/01/25 03/01/25 22:59 06:59 14:59 Other: Weight 78.471 kg Results CBC & Chem 7: 03/01/25 05:32 03/01/25 05:32 Labs: Abnormal Lab Results - Last 24 Hours (Table) 03/01/25 03/01/25 03/01/25 Range/Units 05:32 05:32 05:32 WBC 25.17 H (4.50-10.00) 10*3/uL RBC 3.57 L (4.10-5.20) 10*6/uL Hgb 11.4 L (12.0-15.0) g/dL Hct 35.9 L (37.2-46.3) % MCV 100.6 H (80.0-97.0) fL MCHC 31.8 L (32.0-37.0) g/dL Plt Count 105 L (140-440) 10*3/uL MPV 12.7 H (9.5-12.2) fL Immature Gran # 0.67 H (0.00-0.04) 10*3/uL Neutrophils # 22.71 H (1.80-7.70) 10*3/uL Lymphocytes # 0.83 L (0.90-5.00) 10*3/uL Eosinophils # 0.00 L (0.04-0.35) 10*3/uL Immature Plt Fraction 11.8 H (1.1-6.1) % PT 16.3 H (10.0-12.5) sec INR 1.6 H (<1.2) APTT 21.2 L (22.0-30.0) sec BUN 63 H (7-17) mg/dL Creatinine 1.44 H (0.52-1.04) mg/dL Plasma Lactic Acid Chris (0.7-2.0) mmol/L Total Bilirubin 2.6 H (0.2-1.3) mg/dL AST 495 H (14-36) U/L ALT 347 H (4-34) U/L Alkaline Phosphatase 127 H (38-126) U/L Troponin I (0.000-0.034) ng/mL 03/01/25 03/01/25 Range/Units 05:32 05:32 WBC (4.50-10.00) 10*3/uL RBC (4.10-5.20) 10*6/uL Hgb (12.0-15.0) g/dL Hct (37.2-46.3) % MCV (80.0-97.0) fL MCHC (32.0-37.0) g/dL Plt Count (140-440) 10*3/uL MPV (9.5-12.2) fL Immature Gran # (0.00-0.04) 10*3/uL Neutrophils # (1.80-7.70) 10*3/uL Lymphocytes # (0.90-5.00) 10*3/uL Eosinophils # (0.04-0.35) 10*3/uL Immature Plt Fraction (1.1-6.1) % PT (10.0-12.5) sec INR (<1.2) APTT (22.0-30.0) sec BUN (7-17) mg/dL Creatinine (0.52-1.04) mg/dL Plasma Lactic Acid Chris 6.7 H* (0.7-2.0) mmol/L Total Bilirubin (0.2-1.3) mg/dL AST (14-36) U/L ALT (4-34) U/L Alkaline Phosphatase (38-126) U/L Troponin I 0.119 H* (0.000-0.034) ng/mL
--- NOTE | 2025-03-01 13:56 | P.DS ---
Providers Date of admission: 03/01/25 07:18 Attending physician: Kelsy Ricks MD Consults: 03/01/25 07:18 Consult Physician Routine Consulting Provider: Trevor Adan Consult Reason/Comments: Dyspnea. CHF exacerbation, possible pneumonia Do you want consulting provider notified?: Yes Primary care physician: Dex Mcneal MD Hospital Course: Discharge Diagnosis: Acute on chronic hypoxic respiratory failure secondary to HFrEF exacerbation, COPD exacerbation, HCAP Sepsis secondary to possibly HCAP Bronchial asthma, pulmonary hypertension Recent purulent tracheobronchitis, elevated troponin, likely secondary to type II NSTEMI, chronic persistent atrial fibrillation Hypertension Hyperlipidemia CAD with stents CKD stage III Acutely elevated liver enzymes Hyperbilirubinemia Hospital Course: Please refer to my H&P dated earlier 03/01/2025 Rapid response was called later due to respiratory distress. Upon my arrival, patient appears in acute distress, cyanotic, SpO2 in 70s on nasal cannula, complains of worsening right-sided abdominal pain, severe dyspnea. Patient verbalized that she is dying. I asked if she would like to proceed with comfort measures only, patient and her agreed, orders placed for morphine for respiratory distress. Patient started showing signs of agonal breathing and eventually at 1052 on 03/01/2025, patient present at bedside.Patient was DNR/DNI and [employer] at time of . A total of 35 minutes of time were spent preparing this complex discharge summary. Patient was discharged on 03/01/2025 . Plan - Discharge Summary New Discharge Prescriptions: No Action Pantoprazole Sodium [Protonix] 40 mg PO BID DULoxetine HCL [Cymbalta] 60 mg PO DAILY Atorvastatin [Lipitor] 40 mg PO HS #90 tab Clopidogrel [Plavix] 75 mg PO DAILY #90 tab Furosemide [Lasix] 40 mg PO DAILY 30 Days #30 tab Metoprolol Tartrate [Lopressor] 12.5 mg PO BID Ipratropium-Albuterol Nebulize [Duoneb 0.5 mg-3 mg/3 ml Soln] 3 ml INHALATION RT-QID Montelukast [Singulair] 10 mg PO HS #30 tab Cephalexin [Keflex] 500 mg PO Q8HR 10 Days #30 cap Fluconazole [Diflucan] 200 mg PO DAILY 10 Days #10 tablet predniSONE See Taper PO DIRECTED 20 Days #50 tab Spironolactone [Aldactone] 12.5 mg PO DAILY #90 tab Cyanocobalamin (Vitamin B-12) [Vitamin B-12] 1,000 mcg PO DAILY Pregabalin [Lyrica] 100 mg PO BID #6 cap Albuterol Inhaler [Ventolin Hfa Inhaler] 2 puff INHALATION RT-Q6H PRN PRN Reason: Shortness Of Breath Cholecalciferol (Vitamin D3) [Vitamin D3 (50 Mcg = 2000 Iu)] 50 mcg PO DAILY estradioL [Estrace] 1 mg PO DAILY calcitrioL [Rocaltrol] 0.25 mcg PO MOTH Budesonide-Formot 160-4.5 Mcg [Symbicort 160-4.5 Mcg Inhaler] 2 puff INHALA TION RT-BID #2 each Benzonatate [Tessalon Perles] 200 mg PO TID PRN #30 cap PRN Reason: Cough Discharge Medication List Pantoprazole Sodium [Protonix] 40 mg PO BID 05/14/14 [History] Cyanocobalamin (Vitamin B-12) [Vitamin B-12] 1,000 mcg PO DAILY 06/16/22 [History] DULoxetine HCL [Cymbalta] 60 mg PO DAILY 07/27/23 [History] Pregabalin [Lyrica] 100 mg PO BID #6 cap 08/04/23 [Rx] Albuterol Inhaler [Ventolin Hfa Inhaler] 2 puff INHALATION RT-Q6H PRN 12/22/23 [History] Cholecalciferol (Vitamin D3) [Vitamin D3 (50 Mcg = 2000 Iu)] 50 mcg PO DAILY 12/22/23 [History] Atorvastatin [Lipitor] 40 mg PO HS #90 tab 12/25/23 [Rx] Clopidogrel [Plavix] 75 mg PO DAILY #90 tab 01/06/24 [Rx] Furosemide [Lasix] 40 mg PO DAILY 30 Days #30 tab 05/08/24 [Rx] Ipratropium-Albuterol Nebulize [Duoneb 0.5 mg-3 mg/3 ml Soln] 3 ml INHALATION RT-QID 01/12/25 [History] Metoprolol Tartrate [Lopressor] 12.5 mg PO BID 01/12/25 [History] calcitrioL [Rocaltrol] 0.25 mcg PO MOTH 01/12/25 [History] estradioL [Estrace] 1 mg PO DAILY 01/12/25 [History] Benzonatate [Tessalon Perles] 200 mg PO TID PRN #30 cap 01/18/25 [Rx] Budesonide-Formot 160-4.5 Mcg [Symbicort 160-4.5 Mcg Inhaler] 2 puff INHALATION RT-BID #2 each 01/18/25 [Rx] Montelukast [Singulair] 10 mg PO HS #30 tab 01/18/25 [Rx] Cephalexin [Keflex] 500 mg PO Q8HR 10 Days #30 cap 02/27/25 [Rx] Fluconazole [Diflucan] 200 mg PO DAILY 10 Days #10 tablet 02/27/25 [Rx] Spironolactone [Aldactone] 12.5 mg PO DAILY #90 tab 02/27/25 [Rx] predniSONE See Taper PO DIRECTED 20 Days #50 tab 02/27/25 [Rx] Follow up Appointment(s)/Referral(s): Dex Mcneal MD [Primary Care Provider] - 1-2 days Discharge Disposition: - Preliminary Cause of Preliminary Cause of : cardiopulmonary arrest
[2025-03-01 14:20] LABS: Hepatitis A Antibody IgM Nonreactive (Nonreactive); Hepatitis B Core IgM Nonreactive (Nonreactive); Hepatitis B Surface Antigen Nonreactive (Nonreactive); Hepatitis C IgG Antibody Nonreactive (Nonreactive)
[2025-03-01] MEDS ORDERED: MONTELUKAST 10 MG TAB PO SCH (21:00)
[2025-03-01] MEDS ORDERED: ATORVASTATIN 40 MG TAB PO SCH (21:00)
[2025-03-02] MEDS ORDERED: VANCOMYCIN 1,500 MG in SODIUM CHLORIDE 0.9% 500 ML 500 ML IVPB SCH (06:00)
== END 2025-03-01 13:12 | disposition expired | DRG 871 ==
LOC: EC 04:59 → 3SCARD 07:18
PROVIDERS: ADMIT Internal Medicine; ATTEND Internal Medicine
DX: A41.9 Sepsis, unspecified organism (principal); I21.A1 Myocardial infarction type 2; J96.21 Acute and chronic respiratory failure with hypoxia; J18.9 Pneumonia, unspecified organism; I50.23 Acute on chronic systolic (congestive) heart failure; I13.0 Hypertensive heart and chronic kidney disease with heart failure and stage 1 through stage 4 chronic kidney disease, or unspecified chronic kidney disease; J44.0 Chronic obstructive pulmonary disease with (acute) lower respiratory infection; I27.20 Pulmonary hypertension, unspecified; M06.9 Rheumatoid arthritis, unspecified; N18.32 Chronic kidney disease, stage 3b; F32.9 Major depressive disorder, single episode, unspecified; I48.19 Other persistent atrial fibrillation; J44.1 Chronic obstructive pulmonary disease with (acute) exacerbation; I46.9 Cardiac arrest, cause unspecified; Z51.5 Encounter for palliative care; Z66 Do not resuscitate; E78.5 Hyperlipidemia, unspecified; I25.10 Atherosclerotic heart disease of native coronary artery without angina pectoris; E80.6 Other disorders of bilirubin metabolism; Z99.81 Dependence on supplemental oxygen; Z79.01 Long term (current) use of anticoagulants; Z79.02 Long term (current) use of antithrombotics/antiplatelets; Z79.51 Long term (current) use of inhaled steroids; I25.2 Old myocardial infarction; Z82.49 Family history of ischemic heart disease and other diseases of the circulatory system; Z86.73 Personal history of transient ischemic attack (TIA), and cerebral infarction without residual deficits; Z85.820 Personal history of malignant melanoma of skin; Z79.899 Other long term (current) drug therapy; Z79.890 Hormone replacement therapy; Z95.5 Presence of coronary angioplasty implant and graft; Y95 Nosocomial condition; Z96.653 Presence of artificial knee joint, bilateral; Z96.641 Presence of right artificial hip joint
CPT/HCPCS: 36415; 71046; 76705; 80053; 80074; 83605; 83880; 84145; 84484; 85025; 85610; 85730; 87040; 93005; 94640; 96365; 96366; 96367; 96375; 99291